=== PATIENT | female | born 1960 | race Caucasian/White ===

== ENCOUNTER 2016-04-27 14:28 | Inpatient (IN) | payer MEDICARE, MEDICAID ==
[~2016-04-27] VITALS: Ht 170.2 cm; Wt 113.4 kg
[2016-04-27] MEDS ORDERED: Aspirin Baby 81mg ORAL ONE (14:45)
[2016-04-27 15:54] LABS: MEAN CORPUSCULAR HEMOGLOBIN 33.2 PG (27.0-31.0); MEAN CORPUSCULAR HGB CONC 33.3 G/DL (32.0-36.0); MEAN CORPUSCULAR VOLUME 100 FL (80-99); MEAN PLATELET VOLUME 7.7 FL (6.5-10.1); PLATELET COUNT 68 K/UL (150-450); RED BLOOD COUNT 2.72 M/UL (4.20-5.40)
[2016-04-27 16:05] LABS: INR 1.1 (0.9-1.1); PROTHROMBIN TIME 11.2 SEC (9.30-11.50)
--- NOTE | 2016-04-27 16:10 | Diagnostic Imaging Report ---
Indication: Cough Technique: One view of the chest Comparison: none Findings: Lungs and pleural spaces are clear. Heart size is normal . Patient is rotated to the right. No significant change Impression: No acute process
[2016-04-27 16:11] LABS: CALCIUM 8.7 mg/dL (8.6-10.2); CREATININE 7.5 mg/dL (0.5-0.9); GLOMERULAR FILTRATION RATE 5.6 mL/min (>60); POTASSIUM 5.1 mEQ/L (3.4-4.9); TOTAL PROTEIN 6.2 g/dL (6.6-8.7); TROPONIN I < 0.30 ng/mL (<=0.30)
[2016-04-27 16:22] LABS: CKMB 6.6 ng/mL (< 3.8)
[2016-04-27 17:01] VITALS: BP 153/84
[2016-04-27 17:29] LABS: BAND NEUTROPHILS % (MANUAL) 1 % (0-8); EOSINOPHILS % (MANUAL) 5 % (0-3); LYMPHOCYTES % (MANUAL) 30 % (20-45); NEUTROPHILS % (MANUAL) 60 % (45-75); TOTAL CELLS COUNTED 100
[2016-04-27 17:30] LABS: ANISOCYTOSIS 1+; BASOPHILS % (MANUAL) 0 % (0-2); HYPOCHROMASIA 1+; PLATELET ESTIMATE DECREASED; PLATELET MORPHOLOGY NORMAL
[2016-04-27 20:22] VITALS: BP 159/72
[2016-04-27] MEDS ORDERED: DOCUSATE SODIU100 MG ORAL (20:34)
[2016-04-27] MEDS ORDERED: ASPIR 8181 MG ORAL (20:34)
[2016-04-27] MEDS ORDERED: AMIODARONE HCL400 M1 ORAL (20:34)
[2016-04-27] MEDS ORDERED: LEVOTHYROXINE100 MCG ORAL (20:34)
[2016-04-27] MEDS ORDERED: LOSARTAN POTASS50 MG ORAL (20:34)
[2016-04-27] MEDS ORDERED: [UNRECOGNIZED DRUG - OTHER] SQ (20:34)
[2016-04-27] MEDS ORDERED: FRAGMIN SQ (20:34)
[2016-04-27] MEDS ORDERED: VITAMIN D250000 UNI1 ORAL (20:34)
[2016-04-27] MEDS ORDERED: JANUVIA25 MG ORAL (21:06)
[2016-04-27] MEDS ORDERED: LEXAPRO10 MG ORAL (21:06)
[2016-04-27] MEDS ORDERED: KLONOPIN0.5 MG ORAL (21:06)
[2016-04-27] MEDS ORDERED: BENICAR5 MG ORAL (21:06)
[2016-04-27 23:20] VITALS: BP 100/84
--- NOTE | 2016-04-27 23:42 | Emergency Room Report ---
History of Present Illness General Chief Complaint: Nausea Source: Patient, EMS Present Illness HPI This patient states that today when she was at a restaurant she developed lightheadedness. She states she was unable to stand up. She states that each time she tried to stand up she would fall backwards. She does have a history of end-stage renal disease. She states that she is due for dialysis tomorrow. She states that she was discharged from another hospital recently but has home health care. He states she only gets dialysis on Sunday and Fridays. She denies recent illness. She denies fever or chills. She denies cough or congestion. She denies chest pain or shortness of breath. She has no other complaints. Allergies: Coded Allergies: No Known Allergies (Verified , 08/23/06) Patient History Past Medical History: see triage record, DM, HTN, renal disease, dialysis Social History: Denies: alcohol use, drug use, smoking Reviewed Nursing Documentation: PMH: Agreed, PSxH: Agreed Nursing Documentation-PMH Past Medical History: No History, Except For Hx Hypertension: Yes Hx Diabetes: Yes History Of Psychiatric Problem: Yes Review of Systems All Other Systems: negative except mentioned in HPI Physical Exam Vital Signs Date Time Temp Pulse Resp B/P Pulse Ox O2 Delivery O2 Flow Rate FiO2 04/27/16 14:25 97.9 65 16 127/69 99 Room Air Sp02 EP Interpretation: reviewed, normal General Appearance: no apparent distress, alert, GCS 15, non-toxic Head: normocephalic, atraumatic Eyes: bilateral eye PERRL, bilateral eye normal inspection ENT: hearing grossly normal, normal pharynx, no angioedema, normal voice Neck: full range of motion, supple/symm/no masses Respiratory: chest non-tender, lungs clear, normal breath sounds, speaking full sentences Cardiovascular #1: regular rate, rhythm, no edema Gastrointestinal: normal bowel sounds, non tender, soft, non-distended, no guarding, no rebound Rectal: deferred Musculoskeletal: back normal, normal range of motion, non-tender Neurologic: alert, oriented x3, responsive, motor strength/tone normal, sensory intact, speech normal Psychiatric: judgement/insight normal, memory normal, mood/affect normal, no suicidal/homicidal ideation Skin: normal color, no rash, warm/dry, well hydrated Medical Decision Making Diagnostic Impression: Primary Impression: Anemia Additional Impressions: Azotemia Hyperkalemia Vertigo Lightheadedness ER Course This patient presents with azotemia, mild hyperkalemia and lightheadedness with inability to ambulate. She also has anemia that may be related to her kidney disease that is worse than her baseline. The patient will be admitted for dialysis and further evaluation and treatment. Likely this is related to needing dialysis. The patient is only on a 2 times per week regimen and likely needs to be on 3 times per week regimen. Regardless, at this time the patient is unable to ambulate and is unsafe to go home. She is admitted for further evaluation and treatment. Labs Test 04/27/16 15:45 04/27/16 23:07 White Blood Count 5.0 K/UL (4.8-10.8) Red Blood Count 2.72 M/UL (4.20-5.40) Hemoglobin 9.0 G/DL (12.0-16.0) Hematocrit 27.1 % (37.0-47.0) Mean Corpuscular Volume 100 FL (80-99) Mean Corpuscular Hemoglobin 33.2 PG (27.0-31.0) Mean Corpuscular Hemoglobin Concent 33.3 G/DL (32.0-36.0) Red Cell Distribution Width 14.0 % (11.6-14.8) Platelet Count 68 K/UL (150-450) Mean Platelet Volume 7.7 FL (6.5-10.1) Neutrophils (%) (Auto) % (45.0-75.0) Lymphocytes (%) (Auto) % (20.0-45.0) Monocytes (%) (Auto) % (1.0-10.0) Eosinophils (%) (Auto) % (0.0-3.0) Basophils (%) (Auto) % (0.0-2.0) Differential Total Cells Counted 100 Neutrophils % (Manual) 60 % (45-75) Lymphocytes % (Manual) 30 % (20-45) Monocytes % (Manual) 4 % (1-10) Eosinophils % (Manual) 5 % (0-3) Basophils % (Manual) 0 % (0-2) Band Neutrophils 1 % (0-8) Platelet Estimate Decreased Platelet Morphology Normal Hypochromasia 1+ Anisocytosis 1+ Prothrombin Time 11.2 SEC (9.30-11.50) Prothromb Time International Ratio 1.1 (0.9-1.1) Activated Partial Thromboplast Time 23 SEC (23-33) Sodium Level 133 mEQ/L (135-145) Potassium Level 5.1 mEQ/L (3.4-4.9) Chloride Level 96 mEQ/L (98-107) Carbon Dioxide Level 14 mEQ/L (20-30) Anion Gap 23 (5-15) Blood Urea Nitrogen 51 mg/dL (7-23) Creatinine 7.5 mg/dL (0.5-0.9) Estimat Glomerular Filtration Rate 5.6 mL/min (>60) Glucose Level 130 mg/dL (74-106) Calcium Level 8.7 mg/dL (8.6-10.2) Total Bilirubin 0.3 mg/dL (0.0-1.2) Aspartate Amino Transf (AST/SGOT) 12 U/L (5-40) Alanine Aminotransferase (ALT/SGPT) 9 U/L (3-33) Alkaline Phosphatase 67 U/L (35-104) Total Creatine Kinase 127 U/L (26-140) Creatine Kinase MB 6.6 ng/mL (< 3.8) Creatine Kinase MB Relative Index 5.1 Troponin I < 0.30 ng/mL (<=0.30) Total Protein 6.2 g/dL (6.6-8.7) Albumin 3.2 g/dL (3.5-5.2) Globulin 3.0 g/dL Albumin/Globulin Ratio 1.0 (1.0-2.7) EKG Diagnostic Results Rate: normal Rhythm: NSR ST Segments: no acute changes Rhythm Strip Diag. Results EP Interpretation: yes Rate: 60's Rhythm: NSR, no PVC's, no ectopy Last Vital Signs Date Time Temp Pulse Resp B/P Pulse Ox O2 Delivery O2 Flow Rate FiO2 04/27/16 23:20 97.8 63 16 100/84 100 Room Air Disposition: ADMITTED INPATIENT Condition: Stable Referrals: NOT CHOSEN IPA/,REFERRING (PCP) ALETA WILSON D.O. Apr 27, 2016 23:42
[2016-04-28] VITALS (7 sets, daily range): BP systolic 142–183; BP diastolic 64–87
[2016-04-28] MEDS ORDERED: clonazePAM 0.5mg tab ORAL PRN (08:45)
[2016-04-28] MEDS ORDERED: Heparin 5000 units/ml inj SUBQ SCH (09:00)
[2016-04-28] MEDS: NovoLOG Insulin Flexpen SUBQ SCH ×3 (11:30→21:28)
--- NOTE | 2016-04-28 12:10 | Consultation ---
Consult Note Assessment/Plan Renal consult dictated # [id number] ANIYAH COMER Apr 28, 2016 12:10
[2016-04-28] MEDS: Nephrovite tab ORAL SCH (13:04)
--- NOTE | 2016-04-28 17:34 | History & Physical ---
History and Physical History & Physicial Sea Lundberg MD Apr 28, 2016 17:34
--- NOTE | 2016-04-28 19:09 | Consultation ---
DATE OF CONSULTATION: NEPHROLOGY CONSULTATION REFERRING PHYSICIAN: Sea Lundberg M.D. REASON FOR CONSULTATION: End-stage renal disease, requiring hemodialysis. HISTORY OF PRESENT ILLNESS: This is a 55-year-old female with history of end-stage renal disease, on hemodialysis every Sunday and Sunday. She usually gets her dialysis at [facility]. She was admitted today for lightheadedness. She has no shortness of breath. No chest pain. PAST MEDICAL HISTORY: History of diabetes mellitus, end-stage renal disease as mentioned. She has been on dialysis for a few years now and history of hypertension. MEDICATIONS: Reviewed in the EMR. ALLERGIES: No known drug allergies. SOCIAL HISTORY: The patient does have a history of smoking and no history of alcohol abuse. REVIEW OF SYSTEMS: Noncontributory except above. PHYSICAL EXAMINATION: GENERAL: The patient is a 55-year-old female, in no acute distress. VITAL SIGNS: Blood pressure 158/83, pulse 64, temperature 97.2 degrees, and respiratory rate is 18. HEENT: Somewhat pale conjunctivae. Anicteric sclerae. NECK: Supple. LUNGS: Clear to auscultation. HEART: S1 and S2 without murmurs or rubs. ABDOMEN: Soft and nontender. EXTREMITIES: Without peripheral edema. In the left upper arm, there is a fistula which is wrapped tightly with tape. At this point, I could not hear any bruit. LABORATORY AND DIAGNOSTIC DATA: The chemistry panel shows a serum sodium 133, potassium 5.1, chloride 96, CO2 14, BUN is 51, creatinine 0.5, blood sugar is 130. CBC shows a WBC of 5000, hematocrit is 27.1, hemoglobin is 9 . ASSESSMENT: This is a 55-year-old female, who was admitted with the dizziness. She has history of end-stage renal disease, on hemodialysis. Today is here regular dialysis day. She has hypertension and diabetes. PLAN: The patient will be dialyzed today. As mentioned, I could not hear any bruits, however, it may be a faint. I have asked the dialysis nurse to open the tapes over her graft to see if we can cannulate it. The patient will be on Nephro-Denise one a day and she will also need to be on Epogen for anemia. Iron panel will be checked. Thank you very much, Dr. Lundberg, for this consultation. Aris Perez M.D. DR: MILENA JOB#: [id number] CC: VIKAS
--- NOTE | 2016-04-28 20:48 | History and Physical Report ---
DATE OF ADMISSION: 04/27/2016 CHIEF COMPLAINT: Nausea and weakness. HISTORY OF PRESENT ILLNESS: This is a 55-year-old, morbidly obese female with past medical history significant for end-stage renal disease, on hemodialysis, diabetes type 2 and hypertension, who was presented to the hospital complained about lightheadedness and nausea. She stated that she was not able to stand up and she stated that she tried to stand up but would fall backward. She denies any chest pain. Denies any shortness of breath. She had a dialysis the day prior to admission and she was discharged from another hospital recently and was followed by the [facility]. She is only getting dialysis on Sunday and Sunday. She denies any fever or chills. Denies any cough and chest congestion. Denies any chest pain or shortness of breath. Shortly after initial evaluation in the emergency, the patient was admitted to the hospital with anemia, azotemia, hyperkalemia and fluid overload. PAST MEDICAL HISTORY/PAST SURGICAL HISTORY: As above. History of diabetes type 2, hypertension, end-stage renal disease, on hemodialysis, and history of AV shunt placement in the left upper extremity. MEDICATIONS: Medications at home is significant for clonazepam, Lexapro, Benicar and Januvia. ALLERGIES: No known drug allergies. SOCIAL HISTORY: Denies any smoking, alcohol, or drugs. FAMILY HISTORY: Noncontributory. REVIEW OF SYSTEMS: Mostly as above. Denies any dysuria, frequency, or hematuria. Denies any hemoptysis or hematochezia. Complained about dizziness. Denies any chest pain or shortness of breath. Denies any double vision. Denies any fall, or head and neck trauma. PHYSICAL EXAMINATION: VITAL SIGNS: On admission, temperature 97.9 degrees, pulse of 65, respirations 16, and blood pressure 127/69. GENERAL: The patient is awake, responsive, in no acute distress. HEENT: Head and neck examination, pupils are equal and reactive to light. Extraocular movements are intact. NECK: Supple. No JVD. LUNGS: Good air entry. No wheezes or rales. HEART: S1 and S2. Distant heart sounds. No murmur or gallop. ABDOMEN: Soft and nontender. Morbidly obese. EXTREMITIES: A +2 edema bilateral lower extremities. AV fistula was noted in the left upper extremity. NEUROLOGIC: Cranial nerves II through XII are grossly intact. Motor is 5/5 in all the extremities. Gait is unsteady. GENITOURINARY: Refused and Deferred. RECTAL: Refused and deferred. PSYCHIATRIC: Mood and affect is intact. LABORATORY AND DIAGNOSTIC DATA: On admission from the ER, sodium 133, potassium 5.1, chloride 96, bicarbonate 14, BUN 51, creatinine 7.5, and glucose is 130. Troponin is less than 0.30. Albumin is 3.2. PT of 11, INR 1.1, and PTT of 23. WBC 5.0, hemoglobin 9.0, hematocrit 27, and platelets 68,000. Urine drug screen is unremarkable. The patient's chest x-ray is unremarkable. EKG normal sinus rhythm, ventricular rate of 63. No ST elevation was noted. No T-wave inversion. ASSESSMENT: 1. Severe weakness. 2. End-stage renal disease, on hemodialysis. 3. Fluid overload. 4. Anemia of chronic kidney disease. 5. Hypertension. 6. Diabetes type 2. 7. Morbid obesity. 8. Hyperkalemia. 9. Thrombocytopenia. PLAN: Admit the patient to telemetry. We will follow up with the dialysis today. Dr. Aris Perez consultation from Nephrology. We will follow up with 2D echo and laboratory in the morning. Resume home medications. Accu-Chek with sliding scale. Code status is Full Code. DVT prophylaxis with ICDs. Sea Lundberg M.D. DR: LISANDRO JOB#: [id number] CC:
[2016-04-28] MEDS ORDERED: Epogen (for ESRD on dialysis) SUBQ SCH (21:00)
[2016-04-29] VITALS (7 sets, daily range): BP systolic 140–184; BP diastolic 66–88
[2016-04-29] MEDS: NovoLOG Insulin Flexpen SUBQ SCH ×4 (06:30→21:00)
[2016-04-29] MEDS: sitaGLIPtin 50mg tab ORAL SCH (06:59)
[2016-04-29] MEDS: Nephrovite tab ORAL SCH (09:28)
[2016-04-29 09:56] LABS: MEAN CORPUSCULAR HEMOGLOBIN 33.9 PG (27.0-31.0); MEAN CORPUSCULAR HGB CONC 33.2 G/DL (32.0-36.0); MEAN CORPUSCULAR VOLUME 102 FL (80-99); MEAN PLATELET VOLUME 7.7 FL (6.5-10.1); PLATELET COUNT 69 K/UL (150-450); RED BLOOD COUNT 2.83 M/UL (4.20-5.40); RED CELL DISTRIBUTION WIDTH 14.2 % (11.6-14.8); WHITE BLOOD COUNT 4.9 K/UL (4.8-10.8)
[2016-04-29 10:21] LABS: ALBUMIN/GLOBULIN RATIO 1.2 (1.0-2.7); CREATININE 7.2 mg/dL (0.5-0.9); GLOMERULAR FILTRATION RATE 5.9 mL/min (>60); PHOSPHORUS 6.1 mg/dL (2.5-4.8); POTASSIUM 4.8 mEQ/L (3.4-4.9); TOTAL PROTEIN 5.6 g/dL (6.6-8.7)
[2016-04-29 10:22] LABS: HEMOLYSIS 3; IRON 82 ug/dL (37-145); TOTAL IRON BINDING CAPACITY 203 ug/dL (250-400)
[2016-04-29 10:43] LABS: TROPONIN I < 0.30 ng/mL (<=0.30)
[2016-04-29 11:12] LABS: ANISOCYTOSIS 1+; BAND NEUTROPHILS % (MANUAL) 0 % (0-8); BASOPHILS % (MANUAL) 0 % (0-2); EOSINOPHILS % (MANUAL) 2 % (0-3); HYPOCHROMASIA 1+; LYMPHOCYTES % (MANUAL) 18 % (20-45); MACROCYTES 1+; NEUTROPHILS % (MANUAL) 75 % (45-75); PLATELET ESTIMATE DECREASED; PLATELET MORPHOLOGY NORMAL; TOTAL CELLS COUNTED 100
[2016-04-29] MEDS ORDERED: Heparin Sod 1000 units/ml 10ml IV PRN (12:15)
--- NOTE | 2016-04-29 12:48 | Pulmonology Progress Note ---
Assessment/Plan Problems: (1) Lightheadedness (2) Vertigo (3) Renal failure (ARF), acute on chronic (4) Syncope (5) Bradycardia Assessment/Plan echo cardiology evaluation renal follow up check electrolytes anemia w/u Subjective ROS Limited/Unobtainable: No Interval Events: no new complains Allergies: Coded Allergies: No Known Allergies (Verified , 08/23/06) Objective Last 24 Hour Vital Signs Date Time Temp Pulse Resp B/P Pulse Ox O2 Delivery O2 Flow Rate FiO2 04/29/16 12:39 184/88 04/29/16 12:11 97.0 68 18 184/88 99 Room Air 04/29/16 09:28 181/85 04/29/16 08:00 59 04/29/16 07:46 97.0 61 18 181/85 100 Room Air 04/29/16 04:00 60 04/29/16 04:00 97.7 59 20 140/68 98 Room Air 04/29/16 00:00 60 04/29/16 00:00 98.4 66 20 146/84 100 Room Air 04/28/16 20:00 99.3 62 18 157/64 100 Room Air 04/28/16 20:00 63 04/28/16 16:00 98.1 62 18 183/87 98 Room Air Intake and Output 04/28/16 04/29/16 19:00 07:00 Intake Total 590 ml 240 ml Output Total 1200 ml 1500 ml Balance -610 ml -1260 ml Intake Oral 590 ml 240 ml Output Urine Total 1200 ml 1500 ml Objective General Appearance: WD/WN HEENT: normocephalic, atraumatic Respiratory/Chest: chest wall non-tender, crackles/rales Cardiovascular: normal peripheral pulses, normal rate Abdomen: normal bowel sounds, soft, non tender Genitourinary: normal external genitalia Extremities: no cyanosis, no clubbing Skin: no rash Neurologic/Psychiatric: re recording mixer II-XII grossly normal General Appearance: WD/WN Microbiology Date/Time Source Procedure Growth Status 04/27/16 23:21 Nasal Nares MRSA Culture - Final NO METHICILLIN RESISTANT STAPH AUREUS... Complete Laboratory Tests 04/29/16 08:45: White Blood Count 4.9, Red Blood Count 2.83L, Hemoglobin 9.6L, Hematocrit 29.0L , Mean Corpuscular Volume 102H, Mean Corpuscular Hemoglobin 33.9H, Mean Corpuscular Hemoglobin Concent 33.2, Red Cell Distribution Width 14.2, Platelet Count 69L, Mean Platelet Volume 7.7, Neutrophils (%) (Auto) , Lymphocytes (%) ( Auto) , Monocytes (%) (Auto) , Eosinophils (%) (Auto) , Basophils (%) (Auto) , Differential Total Cells Counted 100, Neutrophils % (Manual) 75, Lymphocytes % ( Manual) 18L, Monocytes % (Manual) 5, Eosinophils % (Manual) 2, Basophils % ( Manual) 0, Band Neutrophils 0, Platelet Estimate DecreasedL, Platelet Morphology Normal, Hypochromasia 1+, Anisocytosis 1+, Macrocytosis 1+, Sodium Level 141, Potassium Level 4.8, Chloride Level 106, Carbon Dioxide Level 17L, Anion Gap 18H, Blood Urea Nitrogen 49H, Creatinine 7.2H, Estimat Glomerular Filtration Rate 5.9, Glucose Level 130H, Calcium Level 9.0, Phosphorus Level 6.1H, Magnesium Level 2.0, Iron Level 82, Total Iron Binding Capacity 203L, Percent Iron Saturation 40, Unsaturated Iron Binding 121, Total Bilirubin 0.3, Aspartate Amino Transf (AST/SGOT) 9, Alanine Aminotransferase (ALT/SGPT) 7, Alkaline Phosphatase 70, Troponin I < 0.30, Total Protein 5.6L, Albumin 3.1L, Globulin 2.5, Albumin/Globulin Ratio 1.2 Current Medications Medications (Trade) Dose Ordered Sig/Gabriele Route PRN Reason Start Time Stop Time Status Last Admin Dose Admin Clonazepam (KlonoPIN) 0.5 mg Q6H PRN ORAL For Anxiety 04/28/16 08:45 05/05/16 08:44 Clonidine HCl 0.1 mg 0.1 mg Q4H PRN ORAL SBP>160 04/28/16 08:45 05/28/16 08:44 04/29/16 12:39 Dextrose (Dextrose 50%) STAT PRN IV Hypoglycemia 04/28/16 08:45 05/28/16 08:44 Epoetin Mau (Procrit (for ESRD on dialysis)) 7,000 units MON-WED-FRI SUBQ 04/28/16 21:00 05/28/16 20:59 04/28/16 22:05 Escitalopram Oxalate (Lexapro) 10 mg DAILY ORAL 04/28/16 09:00 4/9/17 08:59 04/29/16 09:28 Heparin Sodium (Porcine) (Heparin Sod 1000 units/ml 10ml) 500 unit ONCE PRN IV FOR HD USE ONLY 04/29/16 12:15 04/29/16 23:59 Insulin Aspart (NovoLOG) BEFORE MEALS AND HS SUBQ 04/28/16 11:30 05/28/16 11:29 04/29/16 11:51 Irbesartan (Avapro) 75 mg DAILY ORAL 04/28/16 09:00 05/28/16 08:59 04/29/16 09:28 Sitagliptin Phosphate (Januvia) 25 mg ACBREAKFAST ORAL 04/29/16 06:30 05/29/16 06:29 04/29/16 06:59 Sodium Chloride (Sodium Chloride 1000ml bag) 1,000 ml @ 500 mls/hr Q2H PRN IVLG sbp<90 during hd 04/29/16 12:03 04/29/16 23:59 Vitamin B Complex/ Vit C/Folic Acid (Nephrovite) 1 tab DAILY ORAL 04/28/16 13:00 05/28/16 12:59 04/29/16 09:28 LEO MCGEE Apr 29, 2016 12:48
--- NOTE | 2016-04-29 13:15 | Cardiology Progress Note ---
Assessment/Plan Assessment/Plan fall non sycopal [facility] hs of same thomboytoeia htn esrd noncomplinaceiwth dialsysis [id number] Objective Last 24 Hour Vital Signs Date Time Temp Pulse Resp B/P Pulse Ox O2 Delivery O2 Flow Rate FiO2 04/29/16 12:39 184/88 04/29/16 12:11 97.0 68 18 184/88 99 Room Air 04/29/16 09:28 181/85 04/29/16 08:00 59 04/29/16 07:46 97.0 61 18 181/85 100 Room Air 04/29/16 04:00 60 04/29/16 04:00 97.7 59 20 140/68 98 Room Air 04/29/16 00:00 60 04/29/16 00:00 98.4 66 20 146/84 100 Room Air 04/28/16 20:00 99.3 62 18 157/64 100 Room Air 04/28/16 20:00 63 04/28/16 16:00 98.1 62 18 183/87 98 Room Air Intake and Output 04/28/16 04/29/16 19:00 07:00 Intake Total 590 ml 240 ml Output Total 1200 ml 1500 ml Balance -610 ml -1260 ml Intake Oral 590 ml 240 ml Output Urine Total 1200 ml 1500 ml Laboratory Tests Test 04/29/16 08:45 White Blood Count 4.9 K/UL (4.8-10.8) Red Blood Count 2.83 M/UL (4.20-5.40) L Hemoglobin 9.6 G/DL (12.0-16.0) L Hematocrit 29.0 % (37.0-47.0) L Mean Corpuscular Volume 102 FL (80-99) H Mean Corpuscular Hemoglobin 33.9 PG (27.0-31.0) H Mean Corpuscular Hemoglobin Concent 33.2 G/DL (32.0-36.0) Red Cell Distribution Width 14.2 % (11.6-14.8) Platelet Count 69 K/UL (150-450) L Mean Platelet Volume 7.7 FL (6.5-10.1) Neutrophils (%) (Auto) % (45.0-75.0) Lymphocytes (%) (Auto) % (20.0-45.0) Monocytes (%) (Auto) % (1.0-10.0) Eosinophils (%) (Auto) % (0.0-3.0) Basophils (%) (Auto) % (0.0-2.0) Differential Total Cells Counted 100 Neutrophils % (Manual) 75 % (45-75) Lymphocytes % (Manual) 18 % (20-45) L Monocytes % (Manual) 5 % (1-10) Eosinophils % (Manual) 2 % (0-3) Basophils % (Manual) 0 % (0-2) Band Neutrophils 0 % (0-8) Platelet Estimate Decreased L Platelet Morphology Normal Hypochromasia 1+ Anisocytosis 1+ Macrocytosis 1+ Sodium Level 141 mEQ/L (135-145) Potassium Level 4.8 mEQ/L (3.4-4.9) Chloride Level 106 mEQ/L (98-107) Carbon Dioxide Level 17 mEQ/L (20-30) L Anion Gap 18 (5-15) H Blood Urea Nitrogen 49 mg/dL (7-23) H Creatinine 7.2 mg/dL (0.5-0.9) H Estimat Glomerular Filtration Rate 5.9 mL/min (>60) Glucose Level 130 mg/dL (74-106) H Calcium Level 9.0 mg/dL (8.6-10.2) Phosphorus Level 6.1 mg/dL (2.5-4.8) H Magnesium Level 2.0 mg/dL (1.7-2.5) Iron Level 82 ug/dL (37-145) Total Iron Binding Capacity 203 ug/dL (250-400) L Percent Iron Saturation 40 % (15-50) Unsaturated Iron Binding 121 ug/dL (112-346) Total Bilirubin 0.3 mg/dL (0.0-1.2) Aspartate Amino Transf (AST/SGOT) 9 U/L (5-40) Alanine Aminotransferase (ALT/SGPT) 7 U/L (3-33) Alkaline Phosphatase 70 U/L (35-104) Troponin I < 0.30 ng/mL (<=0.30) Total Protein 5.6 g/dL (6.6-8.7) L Albumin 3.1 g/dL (3.5-5.2) L Globulin 2.5 g/dL Albumin/Globulin Ratio 1.2 (1.0-2.7) Microbiology Date/Time Source Procedure Growth Status 3/9/17 23:21 Nasal Nares MRSA Culture - Final NO METHICILLIN RESISTANT STAPH AUREUS... Complete HEIDI PICKETT Apr 29, 2016 13:15
[2016-04-29] MEDS: Carvedilol 12.5mg tab ORAL SCH ×2 (14:03→21:37)
--- NOTE | 2016-04-29 15:38 | Nephrology Progress Note ---
Assessment/Plan Problem List: (1) Clotted renal dialysis arteriovenous graft (2) ESRD (end stage renal disease) on dialysis (3) Anemia (4) Lightheadedness Plan declotting by radiology on Sunday discussed with RN memo [place] Subjective Subjective fistula is clotted Objective Objective Last 24 Hour Vital Signs Date Time Temp Pulse Resp B/P Pulse Ox O2 Delivery O2 Flow Rate FiO2 04/29/16 15:10 61 145/66 04/29/16 14:03 68 184/88 04/29/16 12:39 184/88 04/29/16 12:11 97.0 68 18 184/88 99 Room Air 04/29/16 12:00 64 04/29/16 09:28 181/85 04/29/16 08:00 59 04/29/16 07:46 97.0 61 18 181/85 100 Room Air 04/29/16 04:00 60 04/29/16 04:00 97.7 59 20 140/68 98 Room Air 04/29/16 00:00 60 04/29/16 00:00 98.4 66 20 146/84 100 Room Air 04/28/16 20:00 99.3 62 18 157/64 100 Room Air 04/28/16 20:00 63 04/28/16 16:00 98.1 62 18 183/87 98 Room Air Intake and Output 04/28/16 04/29/16 19:00 07:00 Intake Total 590 ml 240 ml Output Total 1200 ml 1500 ml Balance -610 ml -1260 ml Intake Oral 590 ml 240 ml Output Urine Total 1200 ml 1500 ml Laboratory Tests 04/29/16 08:45: White Blood Count 4.9, Red Blood Count 2.83L, Hemoglobin 9.6L, Hematocrit 29.0L , Mean Corpuscular Volume 102H, Mean Corpuscular Hemoglobin 33.9H, Mean Corpuscular Hemoglobin Concent 33.2, Red Cell Distribution Width 14.2, Platelet Count 69L, Mean Platelet Volume 7.7, Neutrophils (%) (Auto) , Lymphocytes (%) ( Auto) , Monocytes (%) (Auto) , Eosinophils (%) (Auto) , Basophils (%) (Auto) , Differential Total Cells Counted 100, Neutrophils % (Manual) 75, Lymphocytes % ( Manual) 18L, Monocytes % (Manual) 5, Eosinophils % (Manual) 2, Basophils % ( Manual) 0, Band Neutrophils 0, Platelet Estimate DecreasedL, Platelet Morphology Normal, Hypochromasia 1+, Anisocytosis 1+, Macrocytosis 1+, Sodium Level 141, Potassium Level 4.8, Chloride Level 106, Carbon Dioxide Level 17L, Anion Gap 18H, Blood Urea Nitrogen 49H, Creatinine 7.2H, Estimat Glomerular Filtration Rate 5.9, Glucose Level 130H, Calcium Level 9.0, Phosphorus Level 6.1H, Magnesium Level 2.0, Iron Level 82, Total Iron Binding Capacity 203L, Percent Iron Saturation 40, Unsaturated Iron Binding 121, Total Bilirubin 0.3, Aspartate Amino Transf (AST/SGOT) 9, Alanine Aminotransferase (ALT/SGPT) 7, Alkaline Phosphatase 70, Troponin I < 0.30, Total Protein 5.6L, Albumin 3.1L, Globulin 2.5, Albumin/Globulin Ratio 1.2 Height (Feet): 5 Height (Inches): 7.00 Weight (Pounds): 250 Cardiovascular: normal rate Respiratory/Chest: lungs clear Extremities: moderate edema ANIYAH COMER Apr 29, 2016 15:38
--- NOTE | 2016-04-29 17:19 | Internal Med Progress Note ---
Subjective Physician Name Sea Lundberg Attending Physician Sea Lundberg MD Current Medications Medications (Trade) Dose Ordered Sig/Gabriele Route PRN Reason Start Time Stop Time Status Last Admin Dose Admin Carvedilol (Coreg) 12.5 mg EVERY 12 HOURS ORAL 04/29/16 14:00 05/29/16 13:59 04/29/16 14:03 Clonazepam (KlonoPIN) 0.5 mg Q6H PRN ORAL For Anxiety 04/28/16 08:45 05/05/16 08:44 Clonidine HCl 0.1 mg 0.1 mg Q4H PRN ORAL SBP>160 04/28/16 08:45 05/28/16 08:44 04/29/16 12:39 Dextrose (Dextrose 50%) STAT PRN IV Hypoglycemia 04/28/16 08:45 05/28/16 08:44 Epoetin Mau (Procrit (for ESRD on dialysis)) 7,000 units SUN-WED-SUN SUBQ 04/28/16 21:00 05/28/16 20:59 04/28/16 22:05 Escitalopram Oxalate (Lexapro) 10 mg DAILY ORAL 04/28/16 09:00 05/28/16 08:59 04/29/16 09:28 Heparin Sodium (Porcine) (Heparin Sod 1000 units/ml 10ml) 500 unit ONCE PRN IV FOR HD USE ONLY 04/29/16 12:15 04/29/16 23:59 Insulin Aspart (NovoLOG) BEFORE MEALS AND HS SUBQ 04/28/16 11:30 05/28/16 11:29 04/29/16 11:51 Irbesartan (Avapro) 75 mg DAILY ORAL 04/28/16 09:00 05/28/16 08:59 04/29/16 09:28 Sitagliptin Phosphate (Januvia) 25 mg ACBREAKFAST ORAL 04/29/16 06:30 05/29/16 06:29 04/29/16 06:59 Sodium Chloride (Sodium Chloride 1000ml bag) 1,000 ml @ 500 mls/hr Q2H PRN IVLG sbp<90 during hd 04/29/16 12:03 04/29/16 23:59 Vitamin B Complex/ Vit C/Folic Acid (Nephrovite) 1 tab DAILY ORAL 04/28/16 13:00 05/28/16 12:59 04/29/16 09:28 Allergies: Coded Allergies: No Known Allergies (Verified , 08/23/06) Subjective awake, alert, responsive, NAD, No SOB, No CP Objective Last Vital Signs Date Time Temp Pulse Resp B/P Pulse Ox O2 Delivery O2 Flow Rate FiO2 04/29/16 16:00 97.5 60 22 161/72 99 Room Air Laboratory Tests Test 04/29/16 08:45 White Blood Count 4.9 K/UL (4.8-10.8) Red Blood Count 2.83 M/UL (4.20-5.40) L Hemoglobin 9.6 G/DL (12.0-16.0) L Hematocrit 29.0 % (37.0-47.0) L Mean Corpuscular Volume 102 FL (80-99) H Mean Corpuscular Hemoglobin 33.9 PG (27.0-31.0) H Mean Corpuscular Hemoglobin Concent 33.2 G/DL (32.0-36.0) Red Cell Distribution Width 14.2 % (11.6-14.8) Platelet Count 69 K/UL (150-450) L Mean Platelet Volume 7.7 FL (6.5-10.1) Neutrophils (%) (Auto) % (45.0-75.0) Lymphocytes (%) (Auto) % (20.0-45.0) Monocytes (%) (Auto) % (1.0-10.0) Eosinophils (%) (Auto) % (0.0-3.0) Basophils (%) (Auto) % (0.0-2.0) Differential Total Cells Counted 100 Neutrophils % (Manual) 75 % (45-75) Lymphocytes % (Manual) 18 % (20-45) L Monocytes % (Manual) 5 % (1-10) Eosinophils % (Manual) 2 % (0-3) Basophils % (Manual) 0 % (0-2) Band Neutrophils 0 % (0-8) Platelet Estimate Decreased L Platelet Morphology Normal Hypochromasia 1+ Anisocytosis 1+ Macrocytosis 1+ Sodium Level 141 mEQ/L (135-145) Potassium Level 4.8 mEQ/L (3.4-4.9) Chloride Level 106 mEQ/L (98-107) Carbon Dioxide Level 17 mEQ/L (20-30) L Anion Gap 18 (5-15) H Blood Urea Nitrogen 49 mg/dL (7-23) H Creatinine 7.2 mg/dL (0.5-0.9) H Estimat Glomerular Filtration Rate 5.9 mL/min (>60) Glucose Level 130 mg/dL (74-106) H Calcium Level 9.0 mg/dL (8.6-10.2) Phosphorus Level 6.1 mg/dL (2.5-4.8) H Magnesium Level 2.0 mg/dL (1.7-2.5) Iron Level 82 ug/dL (37-145) Total Iron Binding Capacity 203 ug/dL (250-400) L Percent Iron Saturation 40 % (15-50) Unsaturated Iron Binding 121 ug/dL (112-346) Total Bilirubin 0.3 mg/dL (0.0-1.2) Aspartate Amino Transf (AST/SGOT) 9 U/L (5-40) Alanine Aminotransferase (ALT/SGPT) 7 U/L (3-33) Alkaline Phosphatase 70 U/L (35-104) Troponin I < 0.30 ng/mL (<=0.30) Total Protein 5.6 g/dL (6.6-8.7) L Albumin 3.1 g/dL (3.5-5.2) L Globulin 2.5 g/dL Albumin/Globulin Ratio 1.2 (1.0-2.7) Microbiology Date/Time Source Procedure Growth Status 04/27/16 23:21 Nasal Nares MRSA Culture - Final NO METHICILLIN RESISTANT STAPH AUREUS... Complete Intake and Output 04/28/16 04/29/16 19:00 07:00 Intake Total 590 ml 240 ml Output Total 1200 ml 1500 ml Balance -610 ml -1260 ml Intake Oral 590 ml 240 ml Output Urine Total 1200 ml 1500 ml Objective GENERAL: The patient is awake, responsive, in no acute distress. HEENT: Head and neck examination, pupils are equal and reactive to light. Extraocular movements are intact. NECK: Supple. No JVD. LUNGS: Good air entry. No wheezes or rales. HEART: S1 and S2. Distant heart sounds. No murmur. ABDOMEN: Soft and nontender. Morbidly obese. EXTREMITIES: A +2 edema bilateral lower extremities. AV fistula in left upper extremity no thrill. NEUROLOGIC: Cranial nerves II through XII are grossly intact. Motor is 5/5 in all the extremities. Gait is unsteady. GENITOURINARY: Refused and Deferred. RECTAL: Refused and deferred. PSYCHIATRIC: Mood and affect is intact. Assessment/Plan Assessment/Plan ASSESSMENT: 1. Severe weakness. 2. End-stage renal disease, on hemodialysis. 3. Fluid overload. 4. Anemia of chronic kidney disease. 5. Hypertension. 6. Diabetes type 2. 7. Morbid obesity. 8. Hyperkalemia. 9. Thrombocytopenia. 10. clotted Left UE AVF. PLAN: in telemetry. Dr. Aris Perez consultation from Nephrology. laboratory in the morning. Accu-Chek with sliding scale. Code status is Full Code. DVT prophylaxis with SCDs for AVF declotication on Sunday by Sea Roque MD Apr 29, 2016 17:19
[2016-04-30 00:37] VITALS: BP 144/73
[2016-04-30 04:29] VITALS: BP 151/78
[2016-04-30] MEDS: sitaGLIPtin 50mg tab ORAL SCH (05:39)
[2016-04-30] MEDS: NovoLOG Insulin Flexpen SUBQ SCH ×4 (05:40→21:51)
[2016-04-30 07:51] LABS: CALCIUM 8.8 mg/dL (8.6-10.2); CREATININE 6.8 mg/dL (0.5-0.9); GLOMERULAR FILTRATION RATE 6.3 mL/min (>60); POTASSIUM 4.9 mEQ/L (3.4-4.9)
[2016-04-30 08:06] VITALS: BP 162/81
[2016-04-30] MEDS: Nephrovite tab ORAL SCH (09:29)
[2016-04-30] MEDS: Carvedilol 12.5mg tab ORAL SCH ×2 (09:29→21:00)
[2016-04-30] MEDS ORDERED: Tubing IV Secondary IV ONE (10:06)
[2016-04-30] MEDS ORDERED: NS 275ml ONE (10:06)
[2016-04-30 11:41] VITALS: BP 160/69
--- NOTE | 2016-04-30 13:39 | Cardiology Progress Note ---
Assessment/Plan Assessment/Plan fall non syncopal with hs of same thrombocytopenia htn esrd noncompliance with dialysis seem stable for the moment dialysis per nephrology sats 100 % latest bp is fine will need orthostatics documeted per staff walking around and is independent not off balance when walkse tele reviewed neg plt low labs reviewed Subjective Cardiovascular: Denies: irregular heart rate, lightheadedness, palpitations Respiratory: Denies: shortness of breath Gastrointestinal/Abdominal: Denies: abdominal pain Genitourinary: Denies: burning Objective Last 24 Hour Vital Signs Date Time Temp Pulse Resp B/P Pulse Ox O2 Delivery O2 Flow Rate FiO2 04/30/16 11:41 97.9 63 18 160/69 100 Room Air 04/30/16 09:29 62 162/81 04/30/16 09:29 162/81 04/30/16 08:06 97.0 62 18 162/81 100 Room Air 04/30/16 04:29 98.4 69 20 151/78 94 Room Air 04/30/16 04:00 60 04/30/16 00:37 98.1 61 19 144/73 95 Room Air 04/29/16 21:37 63 182/80 04/29/16 20:00 63 04/29/16 20:00 98.1 63 20 182/80 98 Room Air 04/29/16 16:00 97.5 60 22 161/72 99 Room Air 04/29/16 15:10 61 145/66 04/29/16 14:03 68 184/88 General Appearance: no apparent distress, alert Neck: supple Cardiovascular: normal rate, regular rhythm Respiratory/Chest: lungs clear, normal breath sounds Abdomen: normal bowel sounds, non tender, soft Extremities: no swelling Intake and Output 04/29/16 04/30/16 19:00 07:00 Intake Total 240 ml 300 ml Output Total 750 ml Balance -510 ml 300 ml Intake Oral 240 ml 300 ml Output Urine Total 750 ml # Voids 7 Laboratory Tests Test 04/30/16 06:00 Sodium Level 140 mEQ/L (135-145) Potassium Level 4.9 mEQ/L (3.4-4.9) Chloride Level 107 mEQ/L (98-107) Carbon Dioxide Level 17 mEQ/L (20-30) L Anion Gap 16 (5-15) H Blood Urea Nitrogen 53 mg/dL (7-23) H Creatinine 6.8 mg/dL (0.5-0.9) H Estimat Glomerular Filtration Rate 6.3 mL/min (>60) Glucose Level 117 mg/dL (74-106) H Calcium Level 8.8 mg/dL (8.6-10.2) Microbiology Date/Time Source Procedure Growth Status 04/27/16 23:21 Nasal Nares MRSA Culture - Final NO METHICILLIN RESISTANT STAPH AUREUS... Complete 04/27/16 23:21 Rectum VRE Culture - Final NO VANCOMYCIN RESISTANT ENTEROCOCCUS ... Complete HEIDI PICKETT Apr 30, 2016 13:39
[2016-04-30 16:00] VITALS: BP 158/74
--- NOTE | 2016-04-30 16:14 | Nephrology Progress Note ---
Assessment/Plan Problem List: (1) Clotted renal dialysis arteriovenous graft (2) ESRD (end stage renal disease) on dialysis (3) Anemia (4) Lightheadedness Plan declotting by radiology on Sunday discussed with RN HD in AM Subjective Subjective In NAD Objective Objective Last 24 Hour Vital Signs Date Time Temp Pulse Resp B/P Pulse Ox O2 Delivery O2 Flow Rate FiO2 04/30/16 11:41 97.9 63 18 160/69 100 Room Air 04/30/16 09:29 62 162/81 04/30/16 09:29 162/81 04/30/16 08:06 97.0 62 18 162/81 100 Room Air 04/30/16 04:29 98.4 69 20 151/78 94 Room Air 04/30/16 04:00 60 04/30/16 00:37 98.1 61 19 144/73 95 Room Air 04/29/16 21:37 63 182/80 04/29/16 20:00 63 04/29/16 20:00 98.1 63 20 182/80 98 Room Air Intake and Output 04/29/16 04/30/16 19:00 07:00 Intake Total 240 ml 300 ml Output Total 750 ml Balance -510 ml 300 ml Intake Oral 240 ml 300 ml Output Urine Total 750 ml # Voids 7 Laboratory Tests 04/30/16 06:00: Sodium Level 140, Potassium Level 4.9, Chloride Level 107, Carbon Dioxide Level 17L, Anion Gap 16H, Blood Urea Nitrogen 53H, Creatinine 6.8H, Estimat Glomerular Filtration Rate 6.3, Glucose Level 117H, Calcium Level 8.8 Height (Feet): 5 Height (Inches): 7.00 Weight (Pounds): 250 Cardiovascular: normal rate Respiratory/Chest: lungs clear ANIYAH COMER Apr 30, 2016 16:14
[2016-04-30 20:00] VITALS: BP 159/68
--- NOTE | 2016-04-30 20:22 | Internal Med Progress Note ---
Subjective Physician Name Sea Lundberg Attending Physician Sea Lundberg MD Current Medications Medications (Trade) Dose Ordered Sig/Gabriele Route PRN Reason Start Time Stop Time Status Last Admin Dose Admin Carvedilol (Coreg) 12.5 mg EVERY 12 HOURS ORAL 04/29/16 14:00 05/29/16 13:59 04/30/16 09:29 Cetylpyridinium Chloride (Cepacol) 1 lozenge EVERY 6 HOURS PRN NATALIE For Cough 04/29/16 21:15 05/29/16 21:14 04/29/16 21:37 Clonazepam (KlonoPIN) 0.5 mg Q6H PRN ORAL For Anxiety 04/28/16 08:45 05/05/16 08:44 Clonidine HCl (Catapres) 0.1 mg Q4H PRN ORAL SBP>160 04/28/16 08:45 05/28/16 08:44 04/29/16 12:39 Dextrose (Dextrose 50%) STAT PRN IV Hypoglycemia 04/28/16 08:45 05/28/16 08:44 Epoetin Mau (Procrit (for ESRD on dialysis)) 7,000 units SUN-SUN-SUN SUBQ 04/28/16 21:00 05/28/16 20:59 04/28/16 22:05 Escitalopram Oxalate (Lexapro) 10 mg DAILY ORAL 04/28/16 09:00 05/28/16 08:59 04/30/16 09:30 Insulin Aspart (NovoLOG) BEFORE MEALS AND HS SUBQ 04/28/16 11:30 05/28/16 11:29 04/30/16 17:41 Irbesartan (Avapro) 75 mg DAILY ORAL 04/28/16 09:00 05/28/16 08:59 04/30/16 09:29 Sitagliptin Phosphate (Januvia) 25 mg ACBREAKFAST ORAL 04/29/16 06:30 05/29/16 06:29 04/30/16 05:39 Vitamin B Complex/ Vit C/Folic Acid (Nephrovite) 1 tab DAILY ORAL 04/28/16 13:00 05/28/16 12:59 04/30/16 09:29 Allergies: Coded Allergies: No Known Allergies (Verified , 08/23/06) Subjective awake, alert, responsive, NAD, No SOB, No CP Objective Last Vital Signs Date Time Temp Pulse Resp B/P Pulse Ox O2 Delivery O2 Flow Rate FiO2 04/30/16 20:00 61 04/30/16 16:00 98.9 18 158/74 100 Room Air Laboratory Tests Test 04/30/16 06:00 Sodium Level 140 mEQ/L (135-145) Potassium Level 4.9 mEQ/L (3.4-4.9) Chloride Level 107 mEQ/L (98-107) Carbon Dioxide Level 17 mEQ/L (20-30) L Anion Gap 16 (5-15) H Blood Urea Nitrogen 53 mg/dL (7-23) H Creatinine 6.8 mg/dL (0.5-0.9) H Estimat Glomerular Filtration Rate 6.3 mL/min (>60) Glucose Level 117 mg/dL (74-106) H Calcium Level 8.8 mg/dL (8.6-10.2) Microbiology Date/Time Source Procedure Growth Status 04/27/16 23:21 Nasal Nares MRSA Culture - Final NO METHICILLIN RESISTANT STAPH AUREUS... Complete 04/27/16 23:21 Rectum VRE Culture - Final NO VANCOMYCIN RESISTANT ENTEROCOCCUS ... Complete Intake and Output 04/29/16 04/30/16 19:00 07:00 Intake Total 240 ml 300 ml Output Total 750 ml Balance -510 ml 300 ml Intake Oral 240 ml 300 ml Output Urine Total 750 ml # Voids 7 Objective GENERAL: The patient is awake, responsive, in no acute distress. HEENT: Head and neck examination, pupils are equal and reactive to light. Extraocular movements are intact. NECK: Supple. No JVD. LUNGS: Good air entry. No wheezes or rales. HEART: S1 and S2. Distant heart sounds. No murmur. ABDOMEN: Soft and nontender. Morbidly obese. EXTREMITIES: A +2 edema bilateral lower extremities. AV fistula in left upper extremity no thrill. NEUROLOGIC: Cranial nerves II through XII are grossly intact. Motor is 5/5 in all the extremities. Gait is unsteady. GENITOURINARY: Refused and Deferred. RECTAL: Refused and deferred. PSYCHIATRIC: Mood and affect is intact. Assessment/Plan Assessment/Plan ASSESSMENT: 1. Severe weakness. 2. End-stage renal disease, on hemodialysis. 3. Fluid overload. 4. Anemia of chronic kidney disease. 5. Hypertension. 6. Diabetes type 2. 7. Morbid obesity. 8. Hyperkalemia. 9. Thrombocytopenia. 10. clotted Left UE AVF. PLAN: in telemetry. Dr. Aris Perez consultation from Nephrology. laboratory in the morning. Accu-Chek with sliding scale. Code status is Full Code. DVT prophylaxis with SCDs for AVF declotting in AM by IR. Hemodialysis in AM then discharge home in AM. Sea Lundberg MD Apr 30, 2016 20:22
[2016-04-30 21:03] LABS: MEAN CORPUSCULAR HEMOGLOBIN 34.2 PG (27.0-31.0); MEAN CORPUSCULAR HGB CONC 34.2 G/DL (32.0-36.0); MEAN CORPUSCULAR VOLUME 100 FL (80-99); MEAN PLATELET VOLUME 6.5 FL (6.5-10.1); PLATELET COUNT 63 K/UL (150-450); RED BLOOD COUNT 2.58 M/UL (4.20-5.40); RED CELL DISTRIBUTION WIDTH 13.5 % (11.6-14.8); WHITE BLOOD COUNT 5.9 K/UL (4.8-10.8)
[2016-04-30 21:10] LABS: EOSINOPHILS % (AUTO) 3.7 % (0.0-3.0); LYMPHOCYTES % (AUTO) 19.6 % (20.0-45.0); MONOCYTES % (AUTO) 10.2 % (1.0-10.0); NEUTROPHILS % (AUTO) 65.6 % (45.0-75.0)
[2016-04-30 21:23] LABS: CALCIUM 8.5 mg/dL (8.6-10.2); CREATININE 6.9 mg/dL (0.5-0.9); GLOMERULAR FILTRATION RATE 6.2 mL/min (>60); POTASSIUM 5.1 mEQ/L (3.4-4.9)
--- NOTE | 2016-04-30 23:11 | Pulmonology Progress Note ---
Assessment/Plan Problems: (1) Lightheadedness (2) Vertigo (3) Renal failure (ARF), acute on chronic (4) Syncope (5) Bradycardia Assessment/Plan echo cardiology f/u renal follow up, HD check electrolytes declotting pending Subjective ROS Limited/Unobtainable: No Interval Events: no new complains Allergies: Coded Allergies: No Known Allergies (Verified , 08/23/06) Objective Last 24 Hour Vital Signs Date Time Temp Pulse Resp B/P Pulse Ox O2 Delivery O2 Flow Rate FiO2 04/30/16 21:48 55 159/68 04/30/16 21:00 55 159/68 04/30/16 20:00 98.1 55 18 159/68 100 Room Air 04/30/16 20:00 61 04/30/16 16:00 98.9 61 18 158/74 100 Room Air 04/30/16 12:00 63 04/30/16 11:41 97.9 63 18 160/69 100 Room Air 04/30/16 09:29 62 162/81 04/30/16 09:29 162/81 04/30/16 08:06 97.0 62 18 162/81 100 Room Air 04/30/16 08:00 60 04/30/16 04:29 98.4 69 20 151/78 94 Room Air 04/30/16 04:00 60 04/30/16 00:37 98.1 61 19 144/73 95 Room Air Intake and Output 04/29/16 04/30/16 19:00 07:00 Intake Total 240 ml 300 ml Output Total 750 ml Balance -510 ml 300 ml Intake Oral 240 ml 300 ml Output Urine Total 750 ml # Voids 7 Objective General Appearance: WD/WN HEENT: normocephalic, atraumatic Respiratory/Chest: chest wall non-tender, crackles/rales Cardiovascular: normal peripheral pulses, normal rate Abdomen: normal bowel sounds, soft, non tender Genitourinary: normal external genitalia Extremities: no cyanosis, no clubbing Skin: no rash 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 Complete 04/27/16 23:21 Rectum VRE Culture - Final NO VANCOMYCIN RESISTANT ENTEROCOCCUS ... Complete Laboratory Tests 04/30/16 06:00: Sodium Level 140, Potassium Level 4.9, Chloride Level 107, Carbon Dioxide Level 17L, Anion Gap 16H, Blood Urea Nitrogen 53H, Creatinine 6.8H, Estimat Glomerular Filtration Rate 6.3, Glucose Level 117H, Calcium Level 8.8 04/30/16 20:55: Sodium Level 140, Potassium Level 5.1H, Chloride Level 108H, Carbon Dioxide Level 15L, Anion Gap 17H, Blood Urea Nitrogen 53H, Creatinine 6.9H, Estimat Glomerular Filtration Rate 6.2, Glucose Level 126H, Calcium Level 8.5L, White Blood Count 5.9, Red Blood Count 2.58L, Hemoglobin 8.8L, Hematocrit 25.8L, Mean Corpuscular Volume 100H, Mean Corpuscular Hemoglobin 34.2H, Mean Corpuscular Hemoglobin Concent 34.2, Red Cell Distribution Width 13.5, Platelet Count 63L, Mean Platelet Volume 6.5, Neutrophils (%) (Auto) 65.6, Lymphocytes (%) (Auto) 19.6L, Monocytes (%) (Auto) 10.2H, Eosinophils (%) (Auto) 3.7H, Basophils (%) ( Auto) 1.0 Current Medications Medications (Trade) Dose Ordered Sig/Gabriele Route PRN Reason Start Time Stop Time Status Last Admin Dose Admin Carvedilol (Coreg) 12.5 mg EVERY 12 HOURS ORAL 04/29/16 14:00 05/29/16 13:59 04/30/16 09:29 Cetylpyridinium Chloride (Cepacol) 1 lozenge EVERY 6 HOURS PRN NATALIE For Cough 04/29/16 21:15 05/29/16 21:14 04/29/16 21:37 Clonazepam (KlonoPIN) 0.5 mg Q6H PRN ORAL For Anxiety 04/28/16 08:45 05/05/16 08:44 Clonidine HCl (Catapres) 0.1 mg Q4H PRN ORAL SBP>160 04/28/16 08:45 05/28/16 08:44 04/29/16 12:39 Dextrose (Dextrose 50%) STAT PRN IV Hypoglycemia 04/28/16 08:45 05/28/16 08:44 Epoetin Mau (Procrit (for ESRD on dialysis)) 7,000 units SUN-SUN-FRI SUBQ 04/28/16 21:00 05/28/16 20:59 04/28/16 22:05 Escitalopram Oxalate (Lexapro) 10 mg DAILY ORAL 04/28/16 09:00 05/28/16 08:59 04/30/16 09:30 Insulin Aspart (NovoLOG) BEFORE MEALS AND HS SUBQ 04/28/16 11:30 05/28/16 11:29 04/30/16 21:51 Irbesartan (Avapro) 75 mg DAILY ORAL 04/28/16 09:00 05/28/16 08:59 04/30/16 09:29 Sitagliptin Phosphate (Januvia) 25 mg ACBREAKFAST ORAL 04/29/16 06:30 05/29/16 06:29 04/30/16 05:39 Vitamin B Complex/ Vit C/Folic Acid (Nephrovite) 1 tab DAILY ORAL 04/28/16 13:00 05/28/16 12:59 04/30/16 09:29 LEO MCGEE Apr 30, 2016 23:11
[2016-05-01] VITALS (29 sets, daily range): BP systolic 129–208; BP diastolic 57–100
[2016-05-01] MEDS: sitaGLIPtin 50mg tab ORAL SCH (06:22)
[2016-05-01] MEDS: NovoLOG Insulin Flexpen SUBQ SCH ×3 (06:23→16:30)
[2016-05-01] MEDS: Nephrovite tab ORAL SCH (08:31)
[2016-05-01] MEDS: Carvedilol 12.5mg tab ORAL SCH (08:33)
--- NOTE | 2016-05-01 10:17 | Internal Med Progress Note ---
Subjective Date of Service: May 01, 2016 Physician Name Maria T Monteiro Attending Physician Sea Lundberg MD Current Medications Medications (Trade) Dose Ordered Sig/Gabriele Route PRN Reason Start Time Stop Time Status Last Admin Dose Admin Carvedilol (Coreg) 12.5 mg EVERY 12 HOURS ORAL 04/29/16 14:00 05/29/16 13:59 04/30/16 09:29 Cetylpyridinium Chloride (Cepacol) 1 lozenge EVERY 6 HOURS PRN NATALIE For Cough 04/29/16 21:15 05/29/16 21:14 05/01/16 08:31 Clonazepam (KlonoPIN) 0.5 mg Q6H PRN ORAL For Anxiety 04/28/16 08:45 05/05/16 08:44 Clonidine HCl (Catapres) 0.1 mg Q4H PRN ORAL SBP>160 04/28/16 08:45 05/28/16 08:44 04/29/16 12:39 Dextrose (Dextrose 50%) STAT PRN IV Hypoglycemia 04/28/16 08:45 05/28/16 08:44 Epoetin Mau (Procrit (for ESRD on dialysis)) 7,000 units MON-WED-SUN SUBQ 04/28/16 21:00 05/28/16 20:59 04/28/16 22:05 Escitalopram Oxalate (Lexapro) 10 mg DAILY ORAL 04/28/16 09:00 05/28/16 08:59 05/01/16 08:31 Insulin Aspart (NovoLOG) BEFORE MEALS AND HS SUBQ 04/28/16 11:30 05/28/16 11:29 04/30/16 21:51 Irbesartan (Avapro) 75 mg DAILY ORAL 04/28/16 09:00 05/28/16 08:59 05/01/16 08:31 Sitagliptin Phosphate (Januvia) 25 mg ACBREAKFAST ORAL 04/29/16 06:30 05/29/16 06:29 05/01/16 06:22 Vitamin B Complex/ Vit C/Folic Acid (Nephrovite) 1 tab DAILY ORAL 04/28/16 13:00 05/28/16 12:59 05/01/16 08:31 Allergies: Coded Allergies: No Known Allergies (Verified , 08/23/06) ROS Limited/Unobtainable: No Constitutional: Reports: no symptoms HEENT: Reports: no symptoms Cardiovascular: Reports: no symptoms Respiratory: Reports: no symptoms Gastrointestinal/Abdominal: Reports: no symptoms Genitourinary: Reports: no symptoms Neurologic/Psychiatric: Reports: no symptoms Subjective 55 YO F admitted with generalized weakness. Now clotted left upper arm arteriovenous dialysis fistula. Cover for Int Davin-Dr Lundberg. Objective Last Vital Signs Date Time Temp Pulse Resp B/P Pulse Ox O2 Delivery O2 Flow Rate FiO2 05/01/16 08:50 55 05/01/16 08:33 140/64 05/01/16 08:06 97.5 18 100 Room Air Laboratory Tests Test 04/30/16 20:55 White Blood Count 5.9 K/UL (4.8-10.8) Red Blood Count 2.58 M/UL (4.20-5.40) L Hemoglobin 8.8 G/DL (12.0-16.0) L Hematocrit 25.8 % (37.0-47.0) L Mean Corpuscular Volume 100 FL (80-99) H Mean Corpuscular Hemoglobin 34.2 PG (27.0-31.0) H Mean Corpuscular Hemoglobin Concent 34.2 G/DL (32.0-36.0) Red Cell Distribution Width 13.5 % (11.6-14.8) Platelet Count 63 K/UL (150-450) L Mean Platelet Volume 6.5 FL (6.5-10.1) Neutrophils (%) (Auto) 65.6 % (45.0-75.0) Lymphocytes (%) (Auto) 19.6 % (20.0-45.0) L Monocytes (%) (Auto) 10.2 % (1.0-10.0) H Eosinophils (%) (Auto) 3.7 % (0.0-3.0) H Basophils (%) (Auto) 1.0 % (0.0-2.0) Sodium Level 140 mEQ/L (135-145) Potassium Level 5.1 mEQ/L (3.4-4.9) H Chloride Level 108 mEQ/L (98-107) H Carbon Dioxide Level 15 mEQ/L (20-30) L Anion Gap 17 (5-15) H Blood Urea Nitrogen 53 mg/dL (7-23) H Creatinine 6.9 mg/dL (0.5-0.9) H Estimat Glomerular Filtration Rate 6.2 mL/min (>60) Glucose Level 126 mg/dL (74-106) H Calcium Level 8.5 mg/dL (8.6-10.2) L Intake and Output 04/30/16 05/01/16 19:00 07:00 Intake Total 650 ml 250 ml Output Total 1150 ml Balance -500 ml 250 ml Intake Oral 650 ml 250 ml Output Urine Total 1150 ml # Voids 4 Objective Objective GENERAL: The patient is awake, responsive, in no acute distress. HEENT: Head and neck examination, pupils are equal and reactive to light. Extraocular movements are intact. NECK: Supple. No JVD. LUNGS: Good air entry. No wheezes or rales. HEART: S1 and S2. Distant heart sounds. No murmur. ABDOMEN: Soft and nontender. Morbidly obese. EXTREMITIES: A +2 edema bilateral lower extremities. AV fistula in left upper extremity no thrill. NEUROLOGIC: Cranial nerves II through XII are grossly intact. Motor is 5/5 in all the extremities. Gait is unsteady. GENITOURINARY: Refused and Deferred. RECTAL: Refused and deferred. PSYCHIATRIC: Mood and affect is intact. Assessment/Plan Assessment/Plan Assessment/Plan Assessment/Plan ASSESSMENT: 1. Severe weakness. 2. End-stage renal disease, on hemodialysis. 3. Fluid overload. 4. Anemia of chronic kidney disease. 5. Hypertension. 6. Diabetes type 2. 7. Morbid obesity. 8. Hyperkalemia. 9. Thrombocytopenia. 10. clotted Left UE AVF. PLAN: in telemetry. Dr. Aris Perez consultation from Nephrology. laboratory in the morning. Accu-Chek with sliding scale. Code status is Full Code. DVT prophylaxis with SCDs for AVF declotting today by IR. Hemodialysis today then discharge home MARIA T MONTEIRO May 01, 2016 10:17
[2016-05-01 10:54] LABS: MEAN CORPUSCULAR HEMOGLOBIN 33.2 PG (27.0-31.0); MEAN CORPUSCULAR HGB CONC 33.1 G/DL (32.0-36.0); MEAN CORPUSCULAR VOLUME 101 FL (80-99); MEAN PLATELET VOLUME 6.1 FL (6.5-10.1); PLATELET COUNT 93 K/UL (150-450); RED BLOOD COUNT 2.99 M/UL (4.20-5.40); RED CELL DISTRIBUTION WIDTH 13.8 % (11.6-14.8); WHITE BLOOD COUNT 5.9 K/UL (4.8-10.8)
[2016-05-01] MEDS ORDERED: Midazolam 2mg/2ml Inj ONE (11:00)
[2016-05-01] MEDS ORDERED: Sodium Bicarbonate 8.4% 50ml Inj ONE (11:01)
[2016-05-01] MEDS ORDERED: Heparin Sod 1000 units/ml 10ml ONE (11:01)
[2016-05-01] MEDS ORDERED: Lidocaine 1% Plain 30 ml INJ ONE ×2 (11:01→15:00)
[2016-05-01] MEDS ORDERED: fentaNYL 100 mcg/2 mL IV ONE (11:01)
[2016-05-01] MEDS ORDERED: Heparin 2000 units/Ns 1000ml 2,000 ML ONE (11:01)
[2016-05-01 11:03] LABS: POTASSIUM 4.8 mEQ/L (3.4-4.9)
[2016-05-01 11:04] LABS: CALCIUM 9.3 mg/dL (8.6-10.2); CREATININE 6.6 mg/dL (0.5-0.9); GLOMERULAR FILTRATION RATE 6.5 mL/min (>60)
--- NOTE | 2016-05-01 12:07 | Nephrology Progress Note ---
Assessment/Plan Problem List: (1) Clotted renal dialysis arteriovenous graft (2) ESRD (end stage renal disease) on dialysis (3) Anemia (4) Lightheadedness Plan declotting by radiology discussed with RN HD today Subjective Subjective In NAD Objective Objective Last 24 Hour Vital Signs Date Time Temp Pulse Resp B/P Pulse Ox O2 Delivery O2 Flow Rate FiO2 05/01/16 11:40 97.1 54 18 129/57 100 Room Air 05/01/16 08:50 55 05/01/16 08:45 55 05/01/16 08:40 53 05/01/16 08:33 52 140/64 05/01/16 08:31 140/64 05/01/16 08:06 97.5 52 18 140/64 100 Room Air 05/01/16 08:00 54 05/01/16 04:13 98.2 59 19 136/75 94 Room Air 05/01/16 04:00 55 05/01/16 00:40 52 84 78 05/01/16 00:39 98.7 52 18 140/67 98 Room Air 05/01/16 00:00 56 04/30/16 21:48 55 159/68 04/30/16 21:00 55 159/68 04/30/16 21:00 55 04/30/16 20:00 98.1 55 18 159/68 100 Room Air 04/30/16 20:00 61 04/30/16 16:00 98.9 61 18 158/74 100 Room Air 04/30/16 16:00 58 Intake and Output 04/30/16 05/01/16 19:00 07:00 Intake Total 650 ml 250 ml Output Total 1150 ml Balance -500 ml 250 ml Intake Oral 650 ml 250 ml Output Urine Total 1150 ml # Voids 4 Laboratory Tests 04/30/16 20:55: White Blood Count 5.9, Red Blood Count 2.58L, Hemoglobin 8.8L, Hematocrit 25.8L , Mean Corpuscular Volume 100H, Mean Corpuscular Hemoglobin 34.2H, Mean Corpuscular Hemoglobin Concent 34.2, Red Cell Distribution Width 13.5, Platelet Count 63L, Mean Platelet Volume 6.5, Neutrophils (%) (Auto) 65.6, Lymphocytes (% ) (Auto) 19.6L, Monocytes (%) (Auto) 10.2H, Eosinophils (%) (Auto) 3.7H, Basophils (%) (Auto) 1.0, Sodium Level 140, Potassium Level 5.1H, Chloride Level 108H, Carbon Dioxide Level 15L, Anion Gap 17H, Blood Urea Nitrogen 53H, Creatinine 6.9H, Estimat Glomerular Filtration Rate 6.2, Glucose Level 126H, Calcium Level 8.5L 05/01/16 09:40: White Blood Count 5.9, Red Blood Count 2.99L, Hemoglobin 9.9L, Hematocrit 30.0L , Mean Corpuscular Volume 101H, Mean Corpuscular Hemoglobin 33.2H, Mean Corpuscular Hemoglobin Concent 33.1, Red Cell Distribution Width 13.8, Platelet Count 93L, Mean Platelet Volume 6.1L, Neutrophils (%) (Auto) , Lymphocytes (%) ( Auto) , Monocytes (%) (Auto) , Eosinophils (%) (Auto) , Basophils (%) (Auto) , Sodium Level 139, Potassium Level 4.8, Chloride Level 103, Carbon Dioxide Level 17L, Anion Gap 19H, Blood Urea Nitrogen 52H, Creatinine 6.6H, Estimat Glomerular Filtration Rate 6.5, Glucose Level 90, Calcium Level 9.3, Neutrophils % (Manual) [Pending], Lymphocytes % (Manual) [Pending], Platelet Estimate [Pending], Platelet Morphology [Pending] Height (Feet): 5 Height (Inches): 7.00 Weight (Pounds): 250 Cardiovascular: normal rate Respiratory/Chest: lungs clear Extremities: trace edema ANIYAH COMER 13, 2017 12:07
[2016-05-01 13:24] LABS: BAND NEUTROPHILS % (MANUAL) 1 % (0-8); BASOPHILS % (MANUAL) 0 % (0-2); EOSINOPHILS % (MANUAL) 2 % (0-3); LYMPHOCYTES % (MANUAL) 25 % (20-45); MACROCYTES 1+; NEUTROPHILS % (MANUAL) 61 % (45-75); PLATELET ESTIMATE DECREASED; PLATELET MORPHOLOGY NORMAL; TOTAL CELLS COUNTED 100
--- NOTE | 2016-05-01 14:06 | Cardiology Report ---
APPROVED REPORT EKG Measurement Heart [id number] Normal sinus rhythm with sinus arrhythmia Cannot rule out Anterior infarct, age undetermined Abnormal ECG
--- NOTE | 2016-05-01 14:12 | Pre-Procedure Note/Attestation ---
Pre-Procedure Note/Attestation Complete Prior to Procedure Planned Procedure: not applicable Procedure Narrative: dialysis graft thrombolysis and other intervention Indications for Procedure Pre-Operative Diagnosis: clotted dialysis access Attestation I attest that I discussed the nature of the procedure; its benefits; risks and complications; and alternatives (and the risks and benefits of such alternatives ), prior to the procedure, with the patient (or the patient's legal community health program representative). I attest that, if there was a reasonable possibility of needing a blood transfusion, the patient (or the patient's legal community health program representative) was given the [facility] standardized written summary, pursuant to the Liu Agustín Blood Safety Act ([place] Health and Safety Code # 1645, as amended). I attest that I re-evaluated the patient just prior to the surgery and that there has been no change in the patient's H&P, except as documented below: RONAL WHITT M.D. May 01, 2016 14:12
[2016-05-01] MEDS ORDERED: Cathflo Alteplase 2mg Inj INJ ONE (14:30)
--- NOTE | 2016-05-01 14:39 | Pulmonology Progress Note ---
Assessment/Plan Problems: (1) Lightheadedness (2) Vertigo (3) Renal failure (ARF), acute on chronic (4) Syncope (5) Bradycardia Assessment/Plan echo cardiology f/u renal follow up, HD check electrolytes seems stable declotting for today Subjective ROS Limited/Unobtainable: No Interval Events: going to radiology for declotting, slightly dizzy Allergies: Coded Allergies: No Known Allergies (Verified , 08/23/06) Objective Last 24 Hour Vital Signs Date Time Temp Pulse Resp B/P Pulse Ox O2 Delivery O2 Flow Rate FiO2 05/01/16 14:30 57 9 186/91 100 Room Air 05/01/16 14:25 56 10 178/90 100 Room Air 05/01/16 13:16 56 12 2.0 05/01/16 11:40 97.1 54 18 129/57 100 Room Air 05/01/16 08:50 55 05/01/16 08:45 55 05/01/16 08:40 53 05/01/16 08:33 52 140/64 05/01/16 08:31 140/64 05/01/16 08:06 97.5 52 18 140/64 100 Room Air 05/01/16 08:00 54 05/01/16 04:13 98.2 59 19 136/75 94 Room Air 05/01/16 04:00 55 05/01/16 00:40 52 84 78 05/01/16 00:39 98.7 52 18 140/67 98 Room Air 05/01/16 00:00 56 04/30/16 21:48 55 159/68 04/30/16 21:00 55 159/68 04/30/16 21:00 55 04/30/16 20:00 98.1 55 18 159/68 100 Room Air 04/30/16 20:00 61 04/30/16 16:00 98.9 61 18 158/74 100 Room Air 04/30/16 16:00 58 Intake and Output 04/30/16 05/01/16 19:00 07:00 Intake Total 650 ml 250 ml Output Total 1150 ml Balance -500 ml 250 ml Intake Oral 650 ml 250 ml Output Urine Total 1150 ml # Voids 4 Objective General Appearance: WD/WN HEENT: normocephalic, atraumatic Respiratory/Chest: chest wall non-tender, crackles/rales Cardiovascular: normal peripheral pulses, normal rate Abdomen: normal bowel sounds, soft, non tender Genitourinary: normal external genitalia Extremities: no cyanosis, no clubbing Skin: no rash Neurologic/Psychiatric: rn eligibility II-XII grossly normal Laboratory Tests 04/30/16 20:55: White Blood Count 5.9, Red Blood Count 2.58L, Hemoglobin 8.8L, Hematocrit 25.8L , Mean Corpuscular Volume 100H, Mean Corpuscular Hemoglobin 34.2H, Mean Corpuscular Hemoglobin Concent 34.2, Red Cell Distribution Width 13.5, Platelet Count 63L, Mean Platelet Volume 6.5, Neutrophils (%) (Auto) 65.6, Lymphocytes (% ) (Auto) 19.6L, Monocytes (%) (Auto) 10.2H, Eosinophils (%) (Auto) 3.7H, Basophils (%) (Auto) 1.0, Sodium Level 140, Potassium Level 5.1H, Chloride Level 108H, Carbon Dioxide Level 15L, Anion Gap 17H, Blood Urea Nitrogen 53H, Creatinine 6.9H, Estimat Glomerular Filtration Rate 6.2, Glucose Level 126H, Calcium Level 8.5L 05/01/16 09:40: White Blood Count 5.9, Red Blood Count 2.99L, Hemoglobin 9.9L, Hematocrit 30.0L , Mean Corpuscular Volume 101H, Mean Corpuscular Hemoglobin 33.2H, Mean Corpuscular Hemoglobin Concent 33.1, Red Cell Distribution Width 13.8, Platelet Count 93L, Mean Platelet Volume 6.1L, Neutrophils (%) (Auto) , Lymphocytes (%) ( Auto) , Monocytes (%) (Auto) , Eosinophils (%) (Auto) , Basophils (%) (Auto) , Sodium Level 139, Potassium Level 4.8, Chloride Level 103, Carbon Dioxide Level 17L, Anion Gap 19H, Blood Urea Nitrogen 52H, Creatinine 6.6H, Estimat Glomerular Filtration Rate 6.5, Glucose Level 90, Calcium Level 9.3, Differential Total Cells Counted 100, Neutrophils % (Manual) 61, Lymphocytes % ( Manual) 25, Monocytes % (Manual) 11H, Eosinophils % (Manual) 2, Basophils % ( Manual) 0, Band Neutrophils 1, Platelet Estimate DecreasedL, Platelet Morphology Normal, Macrocytosis 1+ Current Medications Medications (Trade) Dose Ordered Sig/Gabriele Route PRN Reason Start Time Stop Time Status Last Admin Dose Admin Carvedilol (Coreg) 12.5 mg EVERY 12 HOURS ORAL 04/29/16 14:00 05/29/16 13:59 04/30/16 09:29 Cetylpyridinium Chloride (Cepacol) 1 lozenge EVERY 6 HOURS PRN NATALIE For Cough 04/29/16 21:15 05/29/16 21:14 05/01/16 08:31 Clonazepam (KlonoPIN) 0.5 mg Q6H PRN ORAL For Anxiety 04/28/16 08:45 05/05/16 08:44 Clonidine HCl (Catapres) 0.1 mg Q4H PRN ORAL SBP>160 04/28/16 08:45 05/28/16 08:44 04/29/16 12:39 Dextrose (Dextrose 50%) STAT PRN IV Hypoglycemia 04/28/16 08:45 05/28/16 08:44 Epoetin Mau (Procrit (for ESRD on dialysis)) 7,000 units SUN-SUN-SUN SUBQ 04/28/16 21:00 05/28/16 20:59 04/28/16 22:05 Escitalopram Oxalate (Lexapro) 10 mg DAILY ORAL 04/28/16 09:00 05/28/16 08:59 05/01/16 08:31 Heparin Sodium (Porcine) (Heparin 5000 units/ml) 2,000 units ONCE ONCE INJ 05/01/16 15:00 05/01/16 15:01 Heparin Sodium/ Sodium Chloride (Heparin 2000 units/Ns 1000ml premix) 4,000 unit ONCE ONCE INJ 05/01/16 15:00 05/01/16 15:01 Insulin Aspart (NovoLOG) BEFORE MEALS AND HS SUBQ 04/28/16 11:30 05/28/16 11:29 04/30/16 21:51 Irbesartan (Avapro) 75 mg DAILY ORAL 04/28/16 09:00 05/28/16 08:59 05/01/16 08:31 Lidocaine HCl (Xylocaine 1% 30ml) 30 ml ONCE ONCE INJ 05/01/16 15:00 05/01/16 15:01 Sitagliptin Phosphate (Januvia) 25 mg ACBREAKFAST ORAL 04/29/16 06:30 05/29/16 06:29 05/01/16 06:22 Sodium Bicarbonate (Sodium Bicarbonate) 50 ml ONCE ONCE IV 05/01/16 15:00 05/01/16 15:01 Vitamin B Complex/ Vit C/Folic Acid (Nephrovite) 1 tab DAILY ORAL 04/28/16 13:00 05/28/16 12:59 05/01/16 08:31 LEO MCGEE May 01, 2016 14:39
[2016-05-01] MEDS ORDERED: Heparin Sod 1000 units/ml 10ml INJ ONE (15:00)
[2016-05-01] MEDS ORDERED: Sodium Bicarbonate 8.4% 50ml Inj IV ONE (15:00)
[2016-05-01] MEDS ORDERED: Heparin 2000 units/Ns 1000ml INJ ONE (15:00)
[2016-05-01] MEDS ORDERED: Heparin 5000 units/ml inj INJ ONE (15:00)
--- NOTE | 2016-05-01 15:03 | Cardiology Report ---
APPROVED REPORT EXAM: Two-dimensional and M-mode echocardiogram with Doppler and color Doppler. INDICATION Left Ventricular Function M-Mode DIMENSIONS IVSd2.0 (0.7-1.1cm)Left Atrium (MM)4.1 (1.6-4.0cm) LVDd4.4 (3.5-5.6cm)Aortic Root2.9 (2.0-3.7cm) IVSs2.1 cm LVDs2.1 (2.5-4.0cm) PWs2.0 cm Technically difficult study due to poor acoustic windows. Study quality precludes accurate assessment of regional wall motion. Normal left ventricular chamber size, systolic function and wall motion. Left ventricular ejection fraction estimated to be 60 %. Mild left ventricular hypertrophy. No evidence of pericardial fat or effusion. All other cardiac chamber sizes are within normal limits. Mild focal aortic valve sclerosis with adequate cusp excursion. Mildly thickened mitral valve leaflets with normal excursion. Mild mitral annulus and aortic root calcification. Pulmonic valve not well visualized. Normal tricuspid valve structure. IVC dilated at 1.7 cm with physiologic collapse. A color flow and spectral Doppler study was performed and revealed: Trace aortic regurgitation. Trace mitral regurgitation. Mitral diastolic velocities suggest reduced left ventricular relaxation (Grade I). Mild tricuspid regurgitation. Tricuspid systolic velocities suggests peak right ventricular systolic pressure of 43 mmHg, consistent with mild pulmonary hypertension. Trace pulmonic regurgitation present.
--- NOTE | 2016-05-01 17:24 | Brief Operative Note ---
Immediate Post Operative Note Operative Note Pre-op Diagnosis: clotted dialysis access Procedure: fistula thrombolysis, PHARMACIST IN CHARGE Post-op Diagnosis: same Post-op Diagnosis: same as pre-op Findings: consistent w/pre-op dx studies Surgeon: Donnie Steward Anesthesia: local Specimen: none Complications: none Condition: stable Estimated Blood Loss: minimal Drains: none Implant(s) used?: No RONAL STEWARD M.D. May 01, 2016 17:24
--- NOTE | 2016-05-01 19:47 | Cardiology Progress Note ---
Assessment/Plan Assessment/Plan fall non syncopal with hs of same thrombocytopenia htn esrd noncompliance with dialysis diarrhea dialysis per nephrology sats 100 % latest bp is elevated per staff walking around and is independent not off balance when walkse tele reviewed neg plt low but improving labs reviewed has diarrhea Subjective Cardiovascular: Denies: chest pain, irregular heart rate, lightheadedness Respiratory: Denies: shortness of breath Gastrointestinal/Abdominal: Reports: diarrhea Genitourinary: Denies: burning Objective Last 24 Hour Vital Signs Date Time Temp Pulse Resp B/P Pulse Ox O2 Delivery O2 Flow Rate FiO2 05/01/16 19:33 Room Air 2.0 05/01/16 19:33 Room Air 2.0 05/01/16 19:30 Room Air 05/01/16 16:40 Room Air 2.0 05/01/16 16:20 56 22 190/100 100 Nasal Cannula 2.0 05/01/16 16:15 55 15 /87 100 Nasal Cannula 2.0 05/01/16 16:10 57 22 / 100 Nasal Cannula 2.0 05/01/16 16:05 56 13 194 100 Nasal Cannula 2.0 05/01/16 16:00 56 12 204/87 100 Nasal Cannula 2.0 05/01/16 15:55 57 16 100 Nasal Cannula 2.0 05/01/16 15:50 56 15 100 Nasal Cannula 2.0 05/01/16 15:45 54 12 / 100 Nasal Cannula 2.0 05/01/16 15:40 55 16 100 Nasal Cannula 2.0 05/01/16 15:35 55 16 193/ 100 Nasal Cannula 2.0 05/01/16 15:30 55 13 195/90 100 Nasal Cannula 2.0 05/01/16 15:25 56 10 196/89 100 Nasal Cannula 2.0 05/01/16 15:20 55 11 / 100 Nasal Cannula 2.0 05/01/16 15:15 55 13 193/92 100 Nasal Cannula 2.0 05/01/16 15:12 55 18 199/95 100 Nasal Cannula 2.0 05/01/16 15:05 56 12 208/95 100 Nasal Cannula 2.0 05/01/16 15:00 57 20 201/80 100 Nasal Cannula 2.0 05/01/16 14:55 55 22 203/88 100 Nasal Cannula 2.0 05/01/16 14:50 58 10 199/95 100 Nasal Cannula 2.0 05/01/16 14:45 56 12 205/93 100 Nasal Cannula 2.0 05/01/16 14:40 57 12 185/91 100 Nasal Cannula 2.0 05/01/16 14:35 56 12 184/85 100 Nasal Cannula 2.0 05/01/16 14:30 57 9 186/91 100 Nasal Cannula 2.0 05/01/16 14:25 56 10 178/90 100 Nasal Cannula 2.0 05/01/16 13:16 56 12 2.0 05/01/16 11:40 97.1 54 18 129/57 100 Room Air 05/01/16 08:50 55 05/01/16 08:45 55 05/01/16 08:40 53 05/01/16 08:33 52 140/64 05/01/16 08:31 140/64 05/01/16 08:06 97.5 52 18 140/64 100 Room Air 05/01/16 08:00 54 05/01/16 04:13 98.2 59 19 136/75 94 Room Air 05/01/16 04:00 55 05/01/16 00:40 52 84 78 05/01/16 00:39 98.7 52 18 140/67 98 Room Air 05/01/16 00:00 56 04/30/16 21:48 55 159/68 04/30/16 21:00 55 159/68 04/30/16 21:00 55 04/30/16 20:00 98.1 55 18 159/68 100 Room Air 04/30/16 20:00 61 General Appearance: alert Neck: supple Cardiovascular: normal rate, regular rhythm Respiratory/Chest: lungs clear, normal breath sounds Abdomen: non tender, soft Extremities: no swelling Intake and Output 04/30/16 05/01/16 19:00 07:00 Intake Total 650 ml 250 ml Output Total 1150 ml Balance -500 ml 250 ml Intake Oral 650 ml 250 ml Output Urine Total 1150 ml # Voids 4 Laboratory Tests Test 04/30/16 20:55 05/01/16 09:40 White Blood Count 5.9 K/UL (4.8-10.8) 5.9 K/UL (4.8-10.8) Red Blood Count 2.58 M/UL (4.20-5.40) L 2.99 M/UL (4.20-5.40) L Hemoglobin 8.8 G/DL (12.0-16.0) L 9.9 G/DL (12.0-16.0) L Hematocrit 25.8 % (37.0-47.0) L 30.0 % (37.0-47.0) L Mean Corpuscular Volume 100 FL (80-99) H 101 FL (80-99) H Mean Corpuscular Hemoglobin 34.2 PG (27.0-31.0) H 33.2 PG (27.0-31.0) H Mean Corpuscular Hemoglobin Concent 34.2 G/DL (32.0-36.0) 33.1 G/DL (32.0-36.0) Red Cell Distribution Width 13.5 % (11.6-14.8) 13.8 % (11.6-14.8) Platelet Count 63 K/UL (150-450) L 93 K/UL (150-450) L Mean Platelet Volume 6.5 FL (6.5-10.1) 6.1 FL (6.5-10.1) L Neutrophils (%) (Auto) 65.6 % (45.0-75.0) % (45.0-75.0) Lymphocytes (%) (Auto) 19.6 % (20.0-45.0) L % (20.0-45.0) Monocytes (%) (Auto) 10.2 % (1.0-10.0) H % (1.0-10.0) Eosinophils (%) (Auto) 3.7 % (0.0-3.0) H % (0.0-3.0) Basophils (%) (Auto) 1.0 % (0.0-2.0) % (0.0-2.0) Sodium Level 140 mEQ/L (135-145) 139 mEQ/L (135-145) Potassium Level 5.1 mEQ/L (3.4-4.9) H 4.8 mEQ/L (3.4-4.9) Chloride Level 108 mEQ/L (98-107) H 103 mEQ/L (98-107) Carbon Dioxide Level 15 mEQ/L (20-30) L 17 mEQ/L (20-30) L Anion Gap 17 (5-15) H 19 (5-15) H Blood Urea Nitrogen 53 mg/dL (7-23) H 52 mg/dL (7-23) H Creatinine 6.9 mg/dL (0.5-0.9) H 6.6 mg/dL (0.5-0.9) H Estimat Glomerular Filtration Rate 6.2 mL/min (>60) 6.5 mL/min (>60) Glucose Level 126 mg/dL (74-106) H 90 mg/dL (74-106) Calcium Level 8.5 mg/dL (8.6-10.2) L 9.3 mg/dL (8.6-10.2) Differential Total Cells Counted 100 Neutrophils % (Manual) 61 % (45-75) Lymphocytes % (Manual) 25 % (20-45) Monocytes % (Manual) 11 % (1-10) H Eosinophils % (Manual) 2 % (0-3) Basophils % (Manual) 0 % (0-2) Band Neutrophils 1 % (0-8) Platelet Estimate Decreased L Platelet Morphology Normal Macrocytosis 1+ HEIDI PICKETT May 01, 2016 19:46
--- NOTE | 2016-05-02 13:26 | Discharge Summary ---
Discharge Summary Hospital Course Date of Admission Apr 27, 2016 at 18:31 Date of Discharge May 01, 2016 at 20:25 Admitting Diagnosis renal failure/needs dialysis, presyncope HPI Cris Zuluaga is a 55 year old female who was admitted on Apr 27, 2016 at 18: 31 for Renal Failure,Syncope Procedures dc summary #[id number] Discharge Medications Continued Medications: Clonazepam* (Klonopin*) 0.5 Mg Tablet 0.5 MG ORAL Q6H, #15 TAB 0 Refills Escitalopram Oxalate* (Lexapro*) 10 Mg Tablet 10 MG ORAL DAILY, TAB Olmesartan Medoxomil (Benicar) 5 Mg Tablet 5 MG ORAL DAILY, TAB Sitagliptin* (Januvia*) 25 Mg Tablet 25 MG ORAL DAILY, TAB Discharge Condition Upon Discharge: stable Discharge Disposition Patient was discharged to Home () Discharge Diagnoses: Discharge Instructions Discharge Instructions Special Instructions I have been assigned to complete a D/C Summary on this account. I was not involved in the patient management Alisha Kemp NP (Vanchtein) May 02, 2016 13:26
--- NOTE | 2016-05-03 04:08 | Discharge Summary 2 SIG ---
DATE OF ADMISSION: 04/27/2016 DATE OF DISCHARGE: 05/01/2016 REASON FOR ADMISSION: 55-year-old female with end-stage renal disease, on hemodialysis, presented to ED woth complaints of lightheadedness while being in the restaurant. She was unable to stand up. She stated that each time when she was trying to stand up, she would fall backwards. She gets dialysis twice a week. She denied recent illness. She denied fever and chills. She denied cough and congestion. No chest pain. No shortness of breath. Workup in the emergency room revealed no leukocytosis, anemia with hemoglobin of 9 and hematocrit 27.1. Chemistry revealed evidence of renal failure and azotemia, BUN of 51 and creatinine of 7.5, potassium was 5.1, platelets- 68,000. Chest x-ray revealed no acute cardiopulmonary disease. The patient was admitted f or further management. ADMITTING DIAGNOSES: 1. Vertigo. 2. Severe weakness. 3. End-stage renal disease, on hemodialysis. 4. Fluid overload. 5. Acute anemia of chronic kidney disease. 6. Morbid obesity. 7. Thrombocytopenia. 8. Hyperkalemia. HOSPITAL COURSE: The patient was admitted to the hospital. The patient was started on dialysis, locum tenens psychiatrist followed, renal parameters and electrolytes were closely monitored. Echocardiogram revealed preserved ejection fraction of 60%, right ventricular systolic pressure of 43 consistent with mild pulmonary hypertension. Blood sugar was managed with sliding scale of insulin. Per locum tenens psychiatrist recommendations, the patient needs hemodialysis 3 times a week, instead of two as she was previously getting. Patient was noted to have clotted hemodialysis arteriovenous graft . Subsequently she had undergone thrombolysis with percutaneous transluminal angioplasty of clotted AV graft. AV graft was cleared for use Blood pressure was managed with current regimen of antihypertensive. Blood pressure labile and not always controlled. Patient needs close monitoring and titration of antihypertensive regimen as outpatient. Metal Bed Assembler reviewed telemetry. Telemetry was negative. Troponin was negative. .No evidence of arrhythmia on telemetry. Per marketing forecaster, the dizziness was not syncopal. The patient with a history of the same type of dizziness in the past. Vertigo possibly may be related to labile and uncontrolled hypertension. Anemia workup revealed stable iron panel. Hemoglobin and hematocrit trending up. Upon discharge, hemoglobin 9.9, hematocrit 30, platelets were slowly trending up as well from 68,000 initially up to 93,000 upon discharge. Hyperkalemia resolved. Urine tox screen was negative. The patient was stable for discharge home. DISCHARGE DIAGNOSES: 1. Vertigo, non-syncopal. ( possibly due to uncontrolled hypertension) 2. End-stage renal disease, on hemodialysis. 3. Fluid overload. 4. Hypertensive, urgency. 5. Anemia of chronic kidney disease. 6. Morbid obesity. 7. Status post fall, non-syncopal. 8. Clotted arteriovenous graft. 9. Status post thrombolysis with percutaneous transluminal angioplasty of clotted arteriovenous graft. 10. Mild pulmonary HTN 11. Thrombocytopenia-improving 12. Noncompliance with hemodialysis. 13. Diabetes. 14. Morbid obesity. DISCHARGE MEDICATIONS: See medication reconciliation list. DISCHARGE INSTRUCTIONS: The patient was discharged home. The patient needs to follow up with primary medical doctor and hemodialysis as scheduled, three times a week, reinforced compliance with appointments for dialysis and compliance with the medication regimen. Sea Lundberg M.D. I have been assigned to dictate discharge summary on this account and I was not involved in the patient's management. Alisha Buihealth systemMarnie N.P. DR: YOSELIN JOB#: [id number] CC: [id number]
--- NOTE | 2016-05-03 12:45 | Diagnostic Imaging Report ---
Indication: Clotted dialysis graft Technique: Informed consent obtained prior to commencing the procedure. Procedure timeout performed. Total sterile technique, including sterile gloves and hand hygiene, hat, mask, sterile gown, large sterile drape, and preparation with 2% chlorhexidine utilized. Under real-time ultrasound guidance, antegrade puncture juxta anastomotic segment of left brachial basilic AV fistula with 20-gauge needle, passage 108 guidewire, insertion 4 Gibraltarian micropuncture introducer, insertion 0.035 guidewire, insertion of 6 Gibraltarian sheath. A Kumpe catheter was directed into the venous outflow, and central venogram was performed, demonstrating no significant central stenosis. The Kumpe catheter was then withdrawn through the clotted portion of the fistula, and 3000 units of heparin injected. The Kumpe catheter was removed, and a Trerotola device was activated through the clotted portion of the fistula. 3 mg of Activase was injected through the Trerotola device as was activated. Balloon angioplasty of the outflow downstream from the stent was performed ominously using a 6 mm balloon and a 7 mm balloon. The fistula was then punctured retrograde downstream from the initial puncture. The Trerotola device could not be successfully negotiated across the arterial anastomosis. Therefore, a Kumpe catheter was used to direct the guidewire into the brachial artery. Over the guidewire, a Gracie catheter was place, inflated within the brachial artery, and pulled across the arterial anastomosis into the arterial limb of the fistula. The Trerotola device was then partially activated in the upstream portion of the fistula. Followup fistulography performed, demonstrating restored flow, but considerable narrowing within the upstream portions of the fistula. The chest anastomotic segment was dilated with a 4 mm balloon. The fistula immediately downstream from this was dilated with a 5 mm and subsequently a 6 mm balloon. Completion fistulography performed, demonstrating improved appearance. Some residual stenosis of the venous outflow was still noted, so through the antegrade sheath the 7 mm balloon was redeployed. Followup fistulography performed, demonstrating improved appearance of the fistula, although a small contained extravasation was noted at the downstream angioplasty site. This was left alone as no active extravasation is noted. After review of images, catheters and sheaths were withdrawn. Pressure held hemostasis was achieved. Total fluoroscopy time 9.1 minutes. Total dose area product 2856 dGycm2 Comparison: None Findings: Initial outflow venogram demonstrates no evidence of central venous stenosis. Interprocedural fistulography findings as above. Completion fistulogram demonstrates small caliber but restored patency of left upper terminate AV fistula, with brisk flow. There is a stent in the downstream venous outflow. Impression: Successful roman catholic of patency of clotted left brachiobasilic AV fistula, as described
== END 2016-05-01 20:25 | disposition home or self-care (01) | DRG 673 ==
LOC: EDBD 14:28 → EMR 16:29 → EDBEDREQ 18:16 → 2E 18:31 → EDBEDREQ 04-28 05:23 → 2E 04-28 06:12
PROC: 5A1D00Z (ICD-10-PCS; principal; 2016-04-27)
PROC: 057C3ZZ Dilation of Left Basilic Vein, Percutaneous Approach (ICD-10-PCS; 2016-05-01)
PROC: 03783ZZ Dilation of Left Brachial Artery, Percutaneous Approach (ICD-10-PCS; 2016-05-01)
DX: I12.0 Hypertensive chronic kidney disease with stage 5 chronic kidney disease or end stage renal disease (principal); N18.6 End stage renal disease; N17.9 Acute kidney failure, unspecified; D69.6 Thrombocytopenia, unspecified; T82.868A Thrombosis due to vascular prosthetic devices, implants and grafts, initial encounter; I27.2 Other secondary pulmonary hypertension; E87.70 Fluid overload, unspecified; R42 Dizziness and giddiness; E87.5 Hyperkalemia; Z99.2 Dependence on renal dialysis; D63.1 Anemia in chronic kidney disease; E66.9 Obesity, unspecified; Z68.39 Body mass index [BMI] 39.0-39.9, adult; E66.01 Morbid (severe) obesity due to excess calories; Z91.81 History of falling; Y83.8 Other surgical procedures as the cause of abnormal reaction of the patient, or of later complication, without mention of misadventure at the time of the procedure; Z91.15 Patient's noncompliance with renal dialysis; E11.9 Type 2 diabetes mellitus without complications; Z87.891 Personal history of nicotine dependence; R00.1 Bradycardia, unspecified
CPT/HCPCS: 36415; 71010; 75774; 75809; 76080; 80048; 80053; 80300; 82550; 82553; 82962; 83540; 83550; 83735; 84100; 84484; 85007; 85025; 85610; 85730; 87081; 93005; 93306; J1815; J2250

== ENCOUNTER 2016-12-25 19:21 | Inpatient (IN) | payer MEDICARE, MEDICAID ==
[~2016-12-25] VITALS: Ht 170.2 cm; Wt 108.9 kg
[~2016-12-25 19:21] MED LIST: AMIODARONE HCL400 M1 ORAL; ASPIR 8181 MG ORAL; BENICAR5 MG ORAL; DOCUSATE SODIU100 MG ORAL; FRAGMIN SQ; JANUVIA25 MG ORAL; KLONOPIN0.5 MG ORAL; LEVOTHYROXINE100 MCG ORAL; LEXAPRO10 MG ORAL; LOSARTAN POTASS50 MG ORAL; VITAMIN D250000 UNI1 ORAL; [UNRECOGNIZED DRUG - OTHER] SQ
[2016-12-25] MEDS ORDERED: HUMALOG100 UNIT/4 SUBQ (19:31)
[2016-12-25] MEDS ORDERED: ASPIRIN81 MG ORAL (19:31)
[2016-12-25] MEDS ORDERED: CATAPRES0.1 MG ORAL (19:31)
[2016-12-25] MEDS ORDERED: LAMICTAL100 MG ORAL (19:31)
[2016-12-25] MEDS ORDERED: RENVELA0.8 GM ORAL (19:31)
[2016-12-25] MEDS ORDERED: GABAPENTIN300 MG ORAL (19:31)
[2016-12-25] MEDS ORDERED: CARVEDILOL12.5 MG ORAL (19:31)
[2016-12-25] MEDS ORDERED: PRAVACHOL40 MG ORAL (19:31)
[2016-12-25 19:40] VITALS: BP 144/87
[2016-12-25] MEDS ORDERED: Morphine Sulfate 4mg/ml Inj IVP ONE (19:45)
[2016-12-25 19:55] LABS: HEMATOCRIT 29.4 % (37.0-47.0); HEMOGLOBIN 9.4 G/DL (12.0-16.0); MEAN CORPUSCULAR VOLUME 98 FL (80-99); PLATELET COUNT 215 K/UL (150-450); RED CELL DISTRIBUTION WIDTH 14.8 % (11.6-14.8); WHITE BLOOD COUNT 8.6 K/UL (4.8-10.8)
--- NOTE | 2016-12-25 20:07 | Emergency Room Report ---
History of Present Illness General Chief Complaint: Chest Pain Source: EMS Present Illness HPI 56-year-old female presents to ED for evaluation. Patient states she's been having chest pain x1 day. Patient went to dialysis today. Patient was given aspirin and nitroglycerin by EMS. Patient notes midsternal chest pressure, 8/10 , nonradiating. Denies shortness of breath. No fevers or chills. Denies cough. No other aggravating relieving factors. Denies any other system symptoms Allergies: Coded Allergies: No Known Allergies (Verified , 08/23/06) Patient History Past Medical History: HTN, psych hx, renal disease, dialysis Past Surgical History: none Pertinent Family History: none Social History: Denies: smoking, alcohol use, drug use Now: No Immunizations: UTD Reviewed Nursing Documentation: PMH: Agreed, PSxH: Agreed Nursing Documentation-PMH Hx Cardiac Problems: No Hx Hypertension: Yes Hx Diabetes: Yes Hx Cancer: Yes - colon cancer Hx Gastrointestinal Problems: Yes - HEP C Hx Dialysis: Yes - M-W-F, ESRD History Of Psychiatric Problem: Yes - DEPRESSION,BIPOLAR Review of Systems All Other Systems: negative except mentioned in HPI Physical Exam Vital Signs Date Time Temp Pulse Resp B/P (MAP) Pulse Ox O2 Delivery O2 Flow Rate FiO2 12/25/16 19:16 100.2 70 12 144/87 100 Nasal Cannula 4.0 Sp02 EP Interpretation: reviewed, normal General Appearance: no apparent distress, alert, GCS 15, non-toxic, obese Head: normocephalic, atraumatic Eyes: bilateral eye normal inspection, bilateral eye PERRL ENT: hearing grossly normal, normal pharynx, no angioedema, normal voice Neck: full range of motion, supple/symm/no masses Respiratory: chest non-tender, lungs clear, normal breath sounds, speaking full sentences Cardiovascular #1: regular rate, rhythm, no edema Cardiovascular #2: 2+ carotid (R), 2+ carotid (L), 2+ radial (R), 2+ radial (L) , 2+ dorsalis pedis (R), 2+ dorsalis pedis (L) Gastrointestinal: normal bowel sounds, non tender, soft, non-distended, no guarding, no rebound Rectal: deferred Genitourinary: normal inspection, no CVA tenderness Musculoskeletal: back normal, gait/station normal, normal range of motion, non- tender Neurologic: alert, oriented x3, responsive, motor strength/tone normal, sensory intact, speech normal Psychiatric: judgement/insight normal, memory normal, mood/affect normal, no suicidal/homicidal ideation Reflexes: 3+ bicep (R), 3+ bicep (L), 3+ tricep (R), 3+ tricep (L), 3+ knee (R) , 3+ knee (L) Skin: normal color, no rash, warm/dry, well hydrated Lymphatic: no adenopathy Medical Decision Making Diagnostic Impression: Primary Impression: ACS (acute coronary syndrome) Additional Impression: ESRD (end stage renal disease) on dialysis ER Course Hospital Course 56-year-old female presents ED complaining of chest pain. s/p dialysis today Differential diagnoses include: WA/unstable angina, contusion, muscle strain, PTX, rib fracture Clinical course Patient placed on stretcher. on cardiac rehabilitation program director. After initial history and physical I ordered labs, EKG, chest x-ray, morphine labs reviewed- no leukocyotiss, hb/hct stable, BUN/Cr elevated, trop 0.005, BNP elevated EKG - NSR, no acute ischemic changes interpreted by me Chest x-ray- cardiomegaly. bilateral effusion given aspirin. Case discussed with Dr. Lundberg and he agreed to accept the patient to his service for further care and support I. I feel this is a highly complex case requiring extensive working including EKG/Rhythm strip, Xray/CT/US, Blood/urine lab work, repeat exams while in ED, and administration of strong opiates/narcotics for pain control, admission to hospital or close patient follow up. Diagnosis - ACS, ESRD on diaylsis admitted to telemetry in serious condition Labs Test 12/25/16 19:30 White Blood Count 8.6 K/UL (4.8-10.8) Red Blood Count 3.00 M/UL (4.20-5.40) Hemoglobin 9.4 G/DL (12.0-16.0) Hematocrit 29.4 % (37.0-47.0) Mean Corpuscular Volume 98 FL (80-99) Mean Corpuscular Hemoglobin 31.3 PG (27.0-31.0) Mean Corpuscular Hemoglobin Concent 32.1 G/DL (32.0-36.0) Red Cell Distribution Width 14.8 % (11.6-14.8) Platelet Count 215 K/UL (150-450) Mean Platelet Volume 7.2 FL (6.5-10.1) Neutrophils (%) (Auto) % (45.0-75.0) Lymphocytes (%) (Auto) % (20.0-45.0) Monocytes (%) (Auto) % (1.0-10.0) Eosinophils (%) (Auto) % (0.0-3.0) Basophils (%) (Auto) % (0.0-2.0) Differential Total Cells Counted 100 Neutrophils % (Manual) 79 % (45-75) Lymphocytes % (Manual) 11 % (20-45) Monocytes % (Manual) 5 % (1-10) Eosinophils % (Manual) 3 % (0-3) Basophils % (Manual) 0 % (0-2) Band Neutrophils 2 % (0-8) Platelet Estimate Adequate Platelet Morphology Normal Hypochromasia 1+ Anisocytosis 1+ Sodium Level 136 MMOL/L (136-145) Potassium Level 3.7 MMOL/L (3.5-5.1) Chloride Level 97 MMOL/L (98-107) Carbon Dioxide Level 21 MMOL/L (21-32) Anion Gap 18 mmol/L (5-15) Blood Urea Nitrogen 71 mg/dL (7-18) Creatinine 7.8 MG/DL (0.55-1.30) Estimat Glomerular Filtration Rate 5.3 mL/min (>60) Glucose Level 100 MG/DL (74-106) Calcium Level 9.3 MG/DL (8.5-10.1) Total Bilirubin 0.9 MG/DL (0.2-1.0) Aspartate Amino Transf (AST/SGOT) 18 U/L (15-37) Alanine Aminotransferase (ALT/SGPT) 19 U/L (12-78) Alkaline Phosphatase 208 U/L (46-116) Total Creatine Kinase 117 U/L (26-308) Creatine Kinase MB 3.1 NG/ML (0.0-3.6) Creatine Kinase MB Relative Index 2.6 Troponin I 0.005 ng/mL (0.000-0.056) Pro-B-Type Natriuretic Peptide 09750 pg/mL (0-125) Total Protein 7.6 G/DL (6.4-8.2) Albumin 2.9 G/DL (3.4-5.0) Globulin 4.7 g/dL Albumin/Globulin Ratio 0.6 (1.0-2.7) EKG Diagnostic Results Rate: normal Rhythm: NSR ST Segments: no acute changes ASA given to the pt in ED: Yes Rhythm Strip Diag. Results EP Interpretation: yes Rhythm: NSR, no PVC's, no ectopy Chest X-Ray Diagnostic Results Chest X-Ray Diagnostic Results : Chest X-Ray Ordered: Yes # of Views/Limited/Complete: 1 View Indication: Chest Pain EP Interpretation: Yes Interpretation: no pneumothorax, other - cardiomegaly. bilateral effusion Impression: Other - effusion. cardiomegaly. Electronically Signed by: Electronically signed by Josh Diaz MD Last Vital Signs Date Time Temp Pulse Resp B/P (MAP) Pulse Ox O2 Delivery O2 Flow Rate FiO2 12/25/16 19:40 61 21 Nasal Cannula 4.0 12/25/16 19:40 100.2 144/87 100 Status: improved Disposition: ADMITTED INPATIENT Condition: Serious Referrals: Sea Lundberg MD (PCP) JOSH DIAZ M.D. Dec 25, 2016 20:07
[2016-12-25 20:18] LABS: ALANINE AMINOTRANSFERASE 19 U/L (12-78); ALBUMIN 2.9 G/DL (3.4-5.0); ALBUMIN/GLOBULIN RATIO 0.6 (1.0-2.7); ALKALINE PHOSPHATASE 208 U/L (46-116); ANION GAP 18 mmol/L (5-15); ASPARTATE AMINO TRANSFERASE 18 U/L (15-37); BILIRUBIN,TOTAL 0.9 MG/DL (0.2-1.0); BLOOD UREA NITROGEN 71 mg/dL (7-18); CALCIUM 9.3 MG/DL (8.5-10.1); CARBON DIOXIDE 21 MMOL/L (21-32); CHLORIDE 97 MMOL/L (98-107); CREATININE 7.8 MG/DL (0.55-1.30); POTASSIUM 3.7 MMOL/L (3.5-5.1); SODIUM 136 MMOL/L (136-145)
[2016-12-25 20:25] LABS: CKMB 3.1 NG/ML (0.0-3.6); CREATINE KINASE 117 U/L (26-308)
[2016-12-25 21:31] VITALS: BP 153/43
[2016-12-25] MEDS ORDERED: Mylanta II UD 30ml ORAL PRN (21:45)
[2016-12-25] MEDS ORDERED: Zolpidem 5mg tab ORAL PRN (21:45)
[2016-12-25] MEDS ORDERED: Miralax 17gm pkt ORAL PRN (21:45)
[2016-12-25] MEDS ORDERED: Albuterol/Ipratropium 3ml neb HHN PRN (21:45)
[2016-12-25 22:24] VITALS: BP 147/49
[2016-12-25] MEDS ORDERED: Nitroglycerin Subl 0.4mg tab SL PRN (22:30)
[2016-12-26] MEDS: clonazePAM 0.5mg tab ORAL SCH ×4 (00:01→17:11)
[2016-12-26] MEDS: NovoLOG Insulin Flexpen SUBQ SCH ×4 (06:30→21:00)
[2016-12-26] MEDS: sitaGLIPtin 25mg tab ORAL SCH (06:36)
[2016-12-26 08:09] LABS: HEMATOCRIT 24.3 % (37.0-47.0); HEMOGLOBIN 7.7 G/DL (12.0-16.0); MEAN CORPUSCULAR VOLUME 97 FL (80-99); PLATELET COUNT 173 K/UL (150-450); RED BLOOD COUNT 2.51 M/UL (4.20-5.40); RED CELL DISTRIBUTION WIDTH 14.9 % (11.6-14.8); WHITE BLOOD COUNT 9.4 K/UL (4.8-10.8)
[2016-12-26 08:22] LABS: ALANINE AMINOTRANSFERASE 16 U/L (12-78); ALBUMIN 2.3 G/DL (3.4-5.0); ALBUMIN/GLOBULIN RATIO 0.5 (1.0-2.7); ALKALINE PHOSPHATASE 162 U/L (46-116); ANION GAP 14 mmol/L (5-15); ASPARTATE AMINO TRANSFERASE 14 U/L (15-37); BILIRUBIN,TOTAL 0.5 MG/DL (0.2-1.0); BLOOD UREA NITROGEN 70 mg/dL (7-18); CALCIUM 8.5 MG/DL (8.5-10.1); CARBON DIOXIDE 23 MMOL/L (21-32); CHLORIDE 102 MMOL/L (98-107); CREATININE 8.5 MG/DL (0.55-1.30); POTASSIUM 3.7 MMOL/L (3.5-5.1); SODIUM 138 MMOL/L (136-145)
[2016-12-26 08:25] LABS: CHOLESTEROL 134 MG/DL (< 200); HDL CHOLESTEROL 17 MG/DL (40-60); TRIGLYCERIDES 213 MG/DL (0-200)
[2016-12-26] MEDS ORDERED: Carvedilol 12.5mg tab ORAL SCH (09:00)
--- NOTE | 2016-12-26 09:26 | Consultation ---
Consult Note Consult Note I was asked to evaluate the patient for dialysis management Patient has ESRD on HD via left chest permacath 56-year-old female presents to ED for evaluation. Patient states she's been having chest pain x1 day. Patient went to dialysis today. Patient was given aspirin and nitroglycerin by EMS. Patient notes midsternal chest pressure, 8/10 , nonradiating. Denies shortness of breath. No fevers or chills. Denies cough. No other aggravating relieving factors. Denies any other system symptoms Past Medical History: HTN, psych hx, renal disease, dialysis Hx Hypertension: Yes Hx Diabetes: Yes Hx Cancer: Yes - colon cancer Hx Gastrointestinal Problems: Yes - HEP C Hx Dialysis: Yes - M-W-F, ESRD History Of Psychiatric Problem: Yes - DEPRESSION,BIPOLAR Patient interviewed and examined- data reviewed admitted with the initial diagnosis of ACS Assessment/Plan Status: - End-stage renal disease, on hemodialysis. - Anemia of chronic kidney disease. - Hypertension. - Diabetes type 2. - Morbid obesity. - H/O Colon Cancer - H/O Hep C - H/O Depression and Bipolar disease Plan : HD in am Adjust BP medications stop beta blockers- Bradycardia Per orders ANDREAS BARRERA Dec 26, 2016 09:26
[2016-12-26] MEDS: Aspirin Baby 81mg ORAL SCH (10:06)
[2016-12-26] MEDS: Heparin 5000 units/ml inj SUBQ SCH ×2 (10:07→21:00)
--- NOTE | 2016-12-26 10:52 | Diagnostic Imaging Report ---
Indication: Chest pain pain Comparison: 04/27/16 A single view chest radiograph was obtained. Findings: Heart is enlarged. There is interstitial edema. There is a left permacath which is in good position. Bones are unremarkable. Impression: Interstitial edema
--- NOTE | 2016-12-26 11:08 | Consultation ---
History of Present Illness General Date patient seen: Dec 26, 2016 Chief Complaint: Chest Pain Referring physician: Dr. Cotter Reason for Consultation: chest pain Present Illness HPI 56-year-old female with hx of ESRF on HD for around one year, Hep C, HTN, presented to ED for evaluation of chest pain x1 day. Patient went to dialysis today and was given aspirin and nitroglycerin by EMS. Patient notes midsternal chest pressure, 8/10, nonradiating. Denies shortness of breath. No fevers or chills. Denies cough. No other aggravating relieving factors. Pt is admitted to telemetry for further evaluation. Allergies: Coded Allergies: No Known Allergies (Verified , 08/23/06) Medication History Scheduled Aspirin* (Aspirin*), 81 MG ORAL DAILY, (Reported) Carvedilol* (Carvedilol*), 12.5 MG ORAL EVERY 12 HOURS, (Reported) Clonazepam* (Klonopin*), 0.5 MG ORAL Q6H, (Reported) Clonidine Hcl* (Catapres*), 0.1 MG ORAL EVERY 6 HOURS, (Reported) Escitalopram Oxalate* (Lexapro*), 10 MG ORAL DAILY, (Reported) Gabapentin* (Gabapentin*), 300 MG ORAL BEDTIME, (Reported) Lamotrigine* (Lamictal*), 100 MG ORAL BID, (Reported) Olmesartan Medoxomil (Benicar), 5 MG ORAL DAILY, (Reported) Pravastatin Sodium (Pravachol), 40 MG ORAL BEDTIME, (Reported) Sevelamer Carbonate* (Renvela*), 4 TAB ORAL THREE TIMES A DAY, (Reported) Sitagliptin* (Januvia*), 25 MG ORAL DAILY, (Reported) Miscellaneous Medications Insulin Lispro (Humalog), 0 SUBQ, (Reported) Patient History Healthcare decision maker Resuscitation status Full Code Advanced Directive on File Past Medical/Surgical History Past Medical/Surgical History: (1) HTN (hypertension) (2) ESRD (end stage renal disease) on dialysis Review of Systems Constitutional: Reports: chills Eye: Reports: no symptoms ENT: Reports: no symptoms Respiratory: Reports: no symptoms Cardiovascular: Reports: no symptoms Gastrointestinal: Reports: no symptoms Genitourinary: Reports: no symptoms Skin: Reports: no symptoms Psychiatric: Reports: no symptoms Physical Exam General Appearance: WD/WN, lethargic Lines, tubes and drains: peripheral, central line HEENT: normocephalic, atraumatic Neck: non-tender, normal alignment Respiratory/Chest: chest wall non-tender, lungs clear, normal breath sounds Abdomen: normal bowel sounds, non tender Last 24 Hour Vital Signs Date Time Temp Pulse Resp B/P (MAP) Pulse Ox O2 Delivery O2 Flow Rate FiO2 12/26/16 10:06 49 153/68 12/26/16 08:00 47 12/26/16 06:36 153/68 12/26/16 04:33 49 12/26/16 04:00 56 12/26/16 01:00 56 12/26/16 00:02 144/64 12/25/16 23:23 98.6 12/25/16 22:27 101.1 61 21 147/49 100 Nasal Cannula 2.0 12/25/16 22:24 101.1 61 21 147/49 100 Nasal Cannula 2.0 12/25/16 21:31 100.2 63 21 153/43 100 Nasal Cannula 2.0 12/25/16 20:24 100.2 12/25/16 19:40 61 21 Nasal Cannula 4.0 12/25/16 19:40 100.2 68 21 144/87 100 Nasal Cannula 4.0 12/25/16 19:16 100.2 70 12 144/87 100 Nasal Cannula 4.0 Laboratory Tests Test 12/25/16 19:30 12/26/16 06:45 White Blood Count 8.6 K/UL (4.8-10.8) 9.4 K/UL (4.8-10.8) Red Blood Count 3.00 M/UL (4.20-5.40) L 2.51 M/UL (4.20-5.40) L Hemoglobin 9.4 G/DL (12.0-16.0) L 7.7 G/DL (12.0-16.0) L Hematocrit 29.4 % (37.0-47.0) L 24.3 % (37.0-47.0) L Mean Corpuscular Volume 98 FL (80-99) 97 FL (80-99) Mean Corpuscular Hemoglobin 31.3 PG (27.0-31.0) H 30.8 PG (27.0-31.0) Mean Corpuscular Hemoglobin Concent 32.1 G/DL (32.0-36.0) 31.8 G/DL (32.0-36.0) L Red Cell Distribution Width 14.8 % (11.6-14.8) 14.9 % (11.6-14.8) H Platelet Count 215 K/UL (150-450) 173 K/UL (150-450) Mean Platelet Volume 7.2 FL (6.5-10.1) 7.6 FL (6.5-10.1) Neutrophils (%) (Auto) % (45.0-75.0) % (45.0-75.0) Lymphocytes (%) (Auto) % (20.0-45.0) % (20.0-45.0) Monocytes (%) (Auto) % (1.0-10.0) % (1.0-10.0) Eosinophils (%) (Auto) % (0.0-3.0) % (0.0-3.0) Basophils (%) (Auto) % (0.0-2.0) % (0.0-2.0) Differential Total Cells Counted 100 100 Neutrophils % (Manual) 79 % (45-75) H 66 % (45-75) Lymphocytes % (Manual) 11 % (20-45) L 19 % (20-45) L Monocytes % (Manual) 5 % (1-10) 10 % (1-10) Eosinophils % (Manual) 3 % (0-3) 4 % (0-3) H Basophils % (Manual) 0 % (0-2) 0 % (0-2) Band Neutrophils 2 % (0-8) 1 % (0-8) Platelet Estimate Adequate Adequate Platelet Morphology Normal Normal Hypochromasia 1+ 1+ Anisocytosis 1+ 1+ Sodium Level 136 MMOL/L (136-145) 138 MMOL/L (136-145) Potassium Level 3.7 MMOL/L (3.5-5.1) 3.7 MMOL/L (3.5-5.1) Chloride Level 97 MMOL/L (98-107) L 102 MMOL/L (98-107) Carbon Dioxide Level 21 MMOL/L (21-32) 23 MMOL/L (21-32) Anion Gap 18 mmol/L (5-15) H 14 mmol/L (5-15) Blood Urea Nitrogen 71 mg/dL (7-18) H 70 mg/dL (7-18) H Creatinine 7.8 MG/DL (0.55-1.30) H 8.5 MG/DL (0.55-1.30) H Estimat Glomerular Filtration Rate 5.3 mL/min (>60) 4.8 mL/min (>60) Glucose Level 100 MG/DL (74-106) 85 MG/DL (74-106) Calcium Level 9.3 MG/DL (8.5-10.1) 8.5 MG/DL (8.5-10.1) Total Bilirubin 0.9 MG/DL (0.2-1.0) 0.5 MG/DL (0.2-1.0) Aspartate Amino Transf (AST/SGOT) 18 U/L (15-37) 14 U/L (15-37) L Alanine Aminotransferase (ALT/SGPT) 19 U/L (12-78) 16 U/L (12-78) Alkaline Phosphatase 208 U/L (46-116) H 162 U/L (46-116) H Total Creatine Kinase 117 U/L (26-308) Creatine Kinase MB 3.1 NG/ML (0.0-3.6) Creatine Kinase MB Relative Index 2.6 Troponin I 0.005 ng/mL (0.000-0.056) 0.000 ng/mL (0.000-0.056) Pro-B-Type Natriuretic Peptide 93064 pg/mL (0-125) H Total Protein 7.6 G/DL (6.4-8.2) 6.8 G/DL (6.4-8.2) Albumin 2.9 G/DL (3.4-5.0) L 2.3 G/DL (3.4-5.0) L Globulin 4.7 g/dL 4.5 g/dL Albumin/Globulin Ratio 0.6 (1.0-2.7) L 0.5 (1.0-2.7) L Macrocytosis 1+ Hemoglobin A1c 5.0 % (4.3-6.0) Triglycerides Level 213 MG/DL (0-200) H Cholesterol Level 134 MG/DL (< 200) LDL Cholesterol 75 mg/dL (<100) HDL Cholesterol 17 MG/DL (40-60) L Cholesterol/HDL Ratio 7.9 (3.3-4.4) H Thyroid Stimulating Hormone (TSH) 1.942 uiU/mL (0.360-3.740) Height (Feet): 5 Height (Inches): 7.00 Weight (Pounds): 240 Medications Current Medications Medications (Trade) Dose Ordered Sig/Gabriele Route PRN Reason Start Time Stop Time Status Last Admin Dose Admin Acetaminophen (Tylenol) 650 mg Q4H PRN ORAL fever 12/25/16 21:45 01/24/17 21:44 12/25/16 22:24 Albuterol/ Ipratropium (Albuterol/ Ipratropium) 3 ml Q6H PRN HHN dyspnea 12/25/16 21:45 12/30/16 21:44 Aspirin (ASA) 81 mg DAILY ORAL 12/26/16 09:00 01/25/17 08:59 12/26/16 10:06 Clonazepam (KlonoPIN) 0.5 mg Q6HR ORAL 12/26/16 00:00 01/02/17 00:00 12/26/16 06:36 Clonidine HCl (Catapres) 0.1 mg Q4H PRN ORAL SBP > 160mmHg 12/26/16 09:45 01/25/17 09:44 Dextrose (Dextrose 50%) STAT PRN IV Hypoglycemia 12/25/16 21:45 01/24/17 21:44 Escitalopram Oxalate (Lexapro) 10 mg DAILY ORAL 12/26/16 09:00 01/25/17 08:59 12/26/16 10:04 Gabapentin (Neurontin) 300 mg BEDTIME ORAL 12/25/16 22:00 01/24/17 21:59 12/25/16 23:06 Heparin Sodium (Porcine) (Heparin 5000 units/ml) 5,000 units EVERY 12 HOURS SUBQ 12/26/16 09:00 01/25/17 08:59 12/26/16 10:07 Insulin Aspart (NovoLOG) BEFORE MEALS AND HS SUBQ 12/26/16 06:30 01/25/17 06:29 Lamotrigine (LaMICtal) 100 mg Q12HR ORAL 12/25/16 22:00 01/24/17 21:59 11/7/17 10:04 Lisinopril (Prinivil) 20 mg BID ORAL 12/26/16 18:00 01/25/17 17:59 Nifedipine (Procardia XL) 60 mg DAILY ORAL 12/27/16 09:00 01/26/17 08:59 Nitroglycerin (Ntg) 0.4 mg Q5M PRN SL Prn Chest Pain 12/25/16 22:30 01/24/17 22:29 Ondansetron HCl (Zofran) 4 mg Q6H PRN IVP Nausea & Vomiting 12/25/16 21:45 01/24/17 21:44 Polyethylene Glycol (Miralax) 17 gm HSPRN PRN ORAL Constipation 12/25/16 21:45 01/24/17 21:44 Pravastatin Sodium (Pravachol) 40 mg BEDTIME ORAL 12/25/16 22:00 01/24/17 21:59 12/25/16 23:06 Sitagliptin Phosphate (Januvia) 25 mg ACBREAKFAST ORAL 12/26/16 06:30 01/25/17 06:29 12/26/16 06:36 Zolpidem Tartrate (Ambien) 5 mg HSPRN PRN ORAL Insomnia 12/25/16 21:45 01/01/17 21:44 Assessment/Plan Problem List: (1) ACS (acute coronary syndrome) ICD Codes: I24.9 - Acute ischemic heart disease, unspecified SNOMED: 165145369 (2) Costochondritis ICD Codes: M94.0 - Chondrocostal junction syndrome [Tietze] SNOMED: 70904836 (3) GERD (gastroesophageal reflux disease) ICD Codes: K21.9 - Gastro-esophageal reflux disease without esophagitis SNOMED: 440679531 (4) ESRD (end stage renal disease) on dialysis ICD Codes: N18.6 - End stage renal disease; Z99.2 - Dependence on renal dialysis SNOMED: 363776174 (5) HTN (hypertension) ICD Codes: I10 - Essential (primary) hypertension SNOMED: 53548996 Assessment/Plan serial EKG, troponin Cardiology evaluation renal to see for HD possibly stress test after 3 negative troponin LEO MCGEE Dec 26, 2016 11:08
[2016-12-26] MEDS ORDERED: Bisacodyl EC 5mg tab ORAL PRN (11:15)
--- NOTE | 2016-12-26 15:12 | Cardiology Progress Note ---
Assessment/Plan Assessment/Plan atypicla cp dm jhtn bipolar esrd on HD perfusion imaging [id number] Objective Last 24 Hour Vital Signs Date Time Temp Pulse Resp B/P (MAP) Pulse Ox O2 Delivery O2 Flow Rate FiO2 12/26/16 12:00 44 12/26/16 10:06 49 153/68 12/26/16 08:00 47 12/26/16 06:36 153/68 12/26/16 04:33 49 12/26/16 04:00 56 12/26/16 01:00 56 12/26/16 00:02 144/64 12/25/16 23:23 98.6 12/25/16 22:27 101.1 61 21 147/49 100 Nasal Cannula 2.0 12/25/16 22:24 101.1 61 21 147/49 100 Nasal Cannula 2.0 12/25/16 21:31 100.2 63 21 153/43 100 Nasal Cannula 2.0 12/25/16 20:24 100.2 12/25/16 19:40 61 21 Nasal Cannula 4.0 12/25/16 19:40 100.2 68 21 144/87 100 Nasal Cannula 4.0 12/25/16 19:16 100.2 70 12 144/87 100 Nasal Cannula 4.0 Laboratory Tests Test 12/25/16 19:30 12/26/16 06:45 White Blood Count 8.6 K/UL (4.8-10.8) 9.4 K/UL (4.8-10.8) Red Blood Count 3.00 M/UL (4.20-5.40) L 2.51 M/UL (4.20-5.40) L Hemoglobin 9.4 G/DL (12.0-16.0) L 7.7 G/DL (12.0-16.0) L Hematocrit 29.4 % (37.0-47.0) L 24.3 % (37.0-47.0) L Mean Corpuscular Volume 98 FL (80-99) 97 FL (80-99) Mean Corpuscular Hemoglobin 31.3 PG (27.0-31.0) H 30.8 PG (27.0-31.0) Mean Corpuscular Hemoglobin Concent 32.1 G/DL (32.0-36.0) 31.8 G/DL (32.0-36.0) L Red Cell Distribution Width 14.8 % (11.6-14.8) 14.9 % (11.6-14.8) H Platelet Count 215 K/UL (150-450) 173 K/UL (150-450) Mean Platelet Volume 7.2 FL (6.5-10.1) 7.6 FL (6.5-10.1) Neutrophils (%) (Auto) % (45.0-75.0) % (45.0-75.0) Lymphocytes (%) (Auto) % (20.0-45.0) % (20.0-45.0) Monocytes (%) (Auto) % (1.0-10.0) % (1.0-10.0) Eosinophils (%) (Auto) % (0.0-3.0) % (0.0-3.0) Basophils (%) (Auto) % (0.0-2.0) % (0.0-2.0) Differential Total Cells Counted 100 100 Neutrophils % (Manual) 79 % (45-75) H 66 % (45-75) Lymphocytes % (Manual) 11 % (20-45) L 19 % (20-45) L Monocytes % (Manual) 5 % (1-10) 10 % (1-10) Eosinophils % (Manual) 3 % (0-3) 4 % (0-3) H Basophils % (Manual) 0 % (0-2) 0 % (0-2) Band Neutrophils 2 % (0-8) 1 % (0-8) Platelet Estimate Adequate Adequate Platelet Morphology Normal Normal Hypochromasia 1+ 1+ Anisocytosis 1+ 1+ Sodium Level 136 MMOL/L (136-145) 138 MMOL/L (136-145) Potassium Level 3.7 MMOL/L (3.5-5.1) 3.7 MMOL/L (3.5-5.1) Chloride Level 97 MMOL/L (98-107) L 102 MMOL/L (98-107) Carbon Dioxide Level 21 MMOL/L (21-32) 23 MMOL/L (21-32) Anion Gap 18 mmol/L (5-15) H 14 mmol/L (5-15) Blood Urea Nitrogen 71 mg/dL (7-18) H 70 mg/dL (7-18) H Creatinine 7.8 MG/DL (0.55-1.30) H 8.5 MG/DL (0.55-1.30) H Estimat Glomerular Filtration Rate 5.3 mL/min (>60) 4.8 mL/min (>60) Glucose Level 100 MG/DL (74-106) 85 MG/DL (74-106) Calcium Level 9.3 MG/DL (8.5-10.1) 8.5 MG/DL (8.5-10.1) Total Bilirubin 0.9 MG/DL (0.2-1.0) 0.5 MG/DL (0.2-1.0) Aspartate Amino Transf (AST/SGOT) 18 U/L (15-37) 14 U/L (15-37) L Alanine Aminotransferase (ALT/SGPT) 19 U/L (12-78) 16 U/L (12-78) Alkaline Phosphatase 208 U/L (46-116) H 162 U/L (46-116) H Total Creatine Kinase 117 U/L (26-308) Creatine Kinase MB 3.1 NG/ML (0.0-3.6) Creatine Kinase MB Relative Index 2.6 Troponin I 0.005 ng/mL (0.000-0.056) 0.000 ng/mL (0.000-0.056) Pro-B-Type Natriuretic Peptide 16130 pg/mL (0-125) H Total Protein 7.6 G/DL (6.4-8.2) 6.8 G/DL (6.4-8.2) Albumin 2.9 G/DL (3.4-5.0) L 2.3 G/DL (3.4-5.0) L Globulin 4.7 g/dL 4.5 g/dL Albumin/Globulin Ratio 0.6 (1.0-2.7) L 0.5 (1.0-2.7) L Macrocytosis 1+ Hemoglobin A1c 5.0 % (4.3-6.0) Triglycerides Level 213 MG/DL (0-200) H Cholesterol Level 134 MG/DL (< 200) LDL Cholesterol 75 mg/dL (<100) HDL Cholesterol 17 MG/DL (40-60) L Cholesterol/HDL Ratio 7.9 (3.3-4.4) H Thyroid Stimulating Hormone (TSH) 1.942 uiU/mL (0.360-3.740) HEIDI PICKETT Dec 26, 2016 15:12
--- NOTE | 2016-12-26 16:31 | Cardiology Report ---
APPROVED REPORT EXAM: Two-dimensional and M-mode echocardiogram with Doppler and color Doppler. INDICATION Acute Coronary Syndrome M-Mode DIMENSIONS IVSd1.5 (0.7-1.1cm)Left Atrium (MM)4.8 (1.6-4.0cm) LVDd4.6 (3.5-5.6cm)Aortic Root3.0 (2.0-3.7cm) PWd2.0 (0.7-1.1cm)Aortic Cusp Exc.2.0 (1.5-2.0cm) LVDs2.6 (2.5-4.0cm) PWs2.7 cm scan area. Normal left ventricular chamber size, systolic function and wall motion to extent visualized. Left ventricular ejection fraction estimated to be 60 %. Study quality precludes accurate assessment of regional wall motion. Mild left ventricular hypertrophy. Possible posterior pericardial effusion. Left atrium mildly dilated Right cardiac chamber sizes are within normal limits. Mild focal aortic valve sclerosis with adequate cusp excursion. Mildl thickened mitral valve leaflets with normal excursion. Mild mitral annulus and aortic root calcification. Pulmonic valve not well visualized. Normal tricuspid valve structure. IVC at normal size with physiologic collapse. A color flow and spectral Doppler study was performed and revealed: Mild aortic regurgitation. Moderate mitral regurgitation. Mitral inflow indicates normal left ventricular diastolic function. Mild tricuspid regurgitation. Tricuspid systolic velocities suggests peak right ventricular systolic pressure of 43 mmHg, consistent with moderate pulmonary hypertension. Mild pulmonic regurgitation present.
--- NOTE | 2016-12-26 16:37 | Cardiology Report ---
APPROVED REPORT EKG Measurement Heart [id number] [place] 130P61 [id number] Normal sinus rhythm Possible Left atrial enlargement Cannot rule out Anterior infarct, age undetermined Abnormal ECG
--- NOTE | 2016-12-26 16:37 | Cardiology Report ---
APPROVED REPORT EKG Measurement Heart [id number] 130P61 [id number] Normal sinus rhythm Possible Left atrial enlargement Cannot rule out Anterior infarct, age undetermined Abnormal ECG
--- NOTE | 2016-12-26 16:37 | Cardiology Report ---
APPROVED REPORT EKG Measurement Heart [id number] 130P61 [id number] Normal sinus rhythm Possible Left atrial enlargement Cannot rule out Anterior infarct, age undetermined Abnormal ECG
[2016-12-26] MEDS ORDERED: Lexiscan 0.4mg/5ml syringe IV ONE (17:00)
[2016-12-26] MEDS: Lisinopril 20mg tab ORAL SCH (17:26)
--- NOTE | 2016-12-26 18:45 | Consultation ---
DATE OF CONSULTATION: 12/26/2016 CARDIOLOGY CONSULTATION CONSULTING PHYSICIAN: Claus Ann M.D. REFERRING PHYSICIAN: Demetri Vallecillo M.D. REASON FOR REFERRAL: Chest pain. HISTORY OF PRESENT ILLNESS: This is a middle-aged female with multiple medical problems. The patient just apparently had a recent hospitalization at [facility] and subsequently transferred somewhere and was admitted here because of not feeling good, dizzy, vertiginous, nauseated, and not able to walk or talk, do much because of the symptoms, brought to the emergency room at [facility] and has been admitted to the hospital. She states that she is having sharp shooting chest pain in the center of her chest for several days now, although she is not experiencing any more that was present constantly for the past few days. She is really not active. She had done some outpatient therapy. No PND. Uses two pillows. She does have dizziness on standing. No heart pounding or palpitations. PAST MEDICAL HISTORY: Positive for end-stage renal disease on hemodialysis , anemia of chronic kidney disease, secondary to hyperparathyroidism, hyperphosphatemia, hypertension, nonadherence to treatments, history of delirium, bipolar disorder, diabetes mellitus, systemic hypertension, hepatitis C, some kind renal anomaly, osteoarthritis, pericardial effusion, tamponade, previously atrial flutter, congestive heart failure, essential hypertension, nephritic syndrome, confusion. ALLERGIES: She is not allergic to any medications. SOCIAL HISTORY: She does smoke. Does not use any alcohol or drugs. REVIEW OF SYSTEMS: GASTROINTESTINAL: She has had constipation and nausea. No bloody or black stool. GENITOURINARY: She denies any discomfort on urination. PULMONARY: Occasional coughing. Nonsignificant. CONSTITUTIONAL: Negative. NEUROLOGIC: Neuropathy symptoms. PHYSICAL EXAMINATION: GENERAL: Shows an obese female, in no respiratory distress. NECK: Supple. No jugular venous distention. No abdominojugular reflux noted. LUNGS: Clear to auscultation and percussion. CARDIAC: S1 is normal. S2 is normal. Regular rate and rhythm. No heaves, thrills, gallops, or rubs are noted. ABDOMEN: Abdomen is obese. Positive bowel sounds. Nontender. EXTREMITIES: There is 1 to 2+ edema of the lower extremities. NEUROLOGIC: She is awake, alert, and responsive. LABORATORY AND DIAGNOSTIC DATA: White count is 9.4, hemoglobin 7.7, platelet count of 173, 66 polys, 19 lymphs, 10 eosinophils, and 4 basophils. Sodium is 138, potassium 3.7, chloride 102, bicarbonate 23, BUN 70, creatinine 8.5, and glucose of 85. AST of 14, ALT of 16, alkaline phosphatase 162. Troponin on two separate occasions 0.05 and 0.00. ProBNP of 33,074. Triglycerides of 213, total cholesterol of 134 TSH of 1.94. Imaging, a chest x-ray shows mild interstitial edema. EKG shows normal sinus rhythm, normal QRS axis, no ST or T wave abnormalities, whatsoever. ASSESSMENT AND PLAN: 1. Atypical chest pain, no evidence of myonecrosis, and no EKG changes. 2. End-stage renal disease, on hemodialysis. 3. Nonadherence to medical recommendations. 4. Diabetes mellitus. 5. Hypertension. Dr. Vallecillo, this patient was seen in cardiac consultation. The patient apparently per her own description has been having some chest pains constantly for few days. She has known evidence myonecrosis and no electrocardiographic abnormalities making coronary artery disease less than likely issue as a cause of this pain. She does have end-stage renal disease on hemodialysis. She should be continued on aspirin and statins for the time being. She is on lisinopril as well as nifedipine XL for her blood pressure control if needed. Beta-blockers can be administered at least on the low-dose basis in the future. Her telemetry data shows some episodes of sinus bradycardia; therefore I am holding off on giving her beta-blockers at this time. I will follow the patient along with you. Also, I will order an echocardiogram for evaluation her systolic function. Her last echocardiogram back in April was normal at that time. An repeat EKG will be ordered. We will consider perfusion imaging in light of her poor historian status as well as bipolar disorder and multiple risk factors for coronary artery disease. Claus Ann M.D. DR: Maninder JOB#: [id number] CC:
--- NOTE | 2016-12-26 18:55 | History & Physical ---
History and Physical History & Physicial Dictated for Int Med-Dr Lundberg no. [id number]. MARIA T MONTEIRO Dec 26, 2016 18:55
--- NOTE | 2016-12-26 18:55 | History & Physical ---
History and Physical History & Physicial Dictated for Int Med-Dr Lundberg no. [id number]. MARIA T MONTEIRO Dec 26, 2016 18:55
--- NOTE | 2016-12-26 18:55 | History & Physical ---
History and Physical History & Physicial Dictated for Int Med-Dr Lundberg no. [id number]. MARIA T MONTEIRO Dec 26, 2016 18:55
--- NOTE | 2016-12-26 20:45 | History and Physical Report ---
DATE OF ADMISSION: 12/25/2016 CHIEF COMPLAINT: The patient is a 56-year-old white female, who presents with complaint of chest pain. HISTORY OF PRESENT ILLNESS: The patient was admitted to [facility] in 04/2016. Please see history and physical and discharge summary dictated at that time. The patient was admitted to [facility] on 12/18/2016. The patient was discharged on 12/22/2016. The patient was admitted at that time for vertigo. The patient was discharged home. The patient presented to [facility] complaining of chest pain. Chest pain is substernal. There is no radiation to the jaw or to the arm. The patient presented to [facility]. The patient was admitted for chest pain to rule out acute coronary syndrome. REVIEW OF SYSTEMS: CONSTITUTIONAL: The patient denies weight loss or weight gain. The patient denies fevers or chills. HEENT: The patient denies ear or throat pain. The patient denies headache. CHEST: The patient denies wheeze or shortness of breath. CARDIOVASCULAR: The patient complains of chest pain as above. The patient denies palpitations. ABDOMINAL: The patient denies nausea, vomiting, diarrhea, or constipation. GENITOURINARY: The patient denies dysuria or increased frequency of urination. NEUROMUSCULAR: The patient denies seizures or generalized weakness. PAST MEDICAL HISTORY: Significant for: 1. Bipolar depression. 2. End-stage renal disease, on hemodialysis at [facility] every Sunday, Sunday, and Sunday. The patient's last dialysis was 12/25/2016. 3. Hypertension. 4. Diabetes type 2. PAST SURGICAL HISTORY: Significant for left upper extremity AV graft for dialysis. CURRENT MEDICATIONS: 1. Klonopin 1 mg one tablet p.o. daily. 2. Epogen 5000 units subcutaneously three times a week. 3. Gabapentin 300 mg one tablet p.o. nightly. 4. Humalog sliding scale. 5. Lamictal 100 mg one tablet p.o. twice daily. 6. Pravastatin 40 mg one tablet p.o. nightly. 7. Renvela 800 mg 4 tablets p.o. 3 times daily. 8. 100 mg p.o. 4 times a week. 9. Aspirin 81 mg one tablet p.o. daily. 10. Coreg 12.5 mg one tablet p.o. twice daily. 11. Clonidine 0.1 mg p.o. q.6 hours p.r.n. ALLERGIES: No known drug allergies. SOCIAL HISTORY: The patient is a . The patient lives alone. The patient admits to tobacco use, one pack per day. The patient denies alcohol use. PHYSICAL EXAMINATION: VITAL SIGNS: Temperature 98.6, respirations 20, pulse 56, and blood pressure 144/64. GENERAL: The patient is a well-developed, well-nourished, obese white female, in no apparent distress. HEENT: Eyes, pupils are equal and responsive to light and accommodation. Extraocular movements are intact. NECK: Supple. No lymphadenopathy. CHEST: Lungs are clear to auscultation bilaterally without wheezes or rales. CARDIOVASCULAR: Regular rate. S1, S2 normal without murmurs, rubs, or gallops. ABDOMEN: Soft, nontender, and nondistended. Positive bowel sounds. No evidence of hepatosplenomegaly. Currently, no rebound or guarding noted. EXTREMITIES: Negative for clubbing, cyanosis, or edema. RECTAL: Refused. GENITAL: Refused. NEUROLOGIC: Cranial nerves II through XII are grossly intact without focal deficits. Motor strength is 5/5 bilaterally. Deep tendon reflexes are 2+, plantar. LABORATORY STUDIES: WBC 8.6, hemoglobin 9.4, hematocrit 29.4, and platelets 215,000. Sodium 136, potassium 3.7, chloride 97, CO2 21, BUN 71, creatinine 7.8, and glucose 100. ASSESSMENT: This is a 56-year-old white female with: 1. Chest pain. 2. Congestive heart failure. 3. End-stage renal disease, on hemodialysis. 4. Hypertension. 5. Diabetes type 2. 6. Bipolar depression. TREATMENT: 1. Chest pain. Cardiology consultation has been obtained with Dr. Claus Ann. The patient is scheduled for cardiac stress test on 12/27/2016. We will follow recommendations of Dr. Ann. 2. Congestive heart failure. This may be secondary to volume overload secondary to renal failure. 3. End-stage renal disease. Nephrology consultation has been obtained with Dr. Eamon Solis. The patient will require dialysis on 12/27/2016. 4. Hypertension. Continue clonidine and Coreg as above. 5. Diabetes type 2. The patient has been placed on NovoLog sliding scale. 6. Bipolar depression. Continue Lamictal as above. 7. Hypercholesterolemia. Continue Pravachol as above. Sukhi Cotter M.D. DR: Karlee JOB#: [id number] CC:
[2016-12-27] VITALS: BP 108/57
[2016-12-27 04:00] VITALS: BP 120/59
[2016-12-27] MEDS: clonazePAM 0.5mg tab ORAL SCH ×3 (06:00→12:26)
[2016-12-27] MEDS: NovoLOG Insulin Flexpen SUBQ SCH ×2 (06:22→11:30)
[2016-12-27] MEDS: sitaGLIPtin 25mg tab ORAL SCH (06:30)
[2016-12-27 07:49] VITALS: BP 139/53
[2016-12-27] MEDS: Heparin 5000 units/ml inj SUBQ SCH (09:00)
[2016-12-27] MEDS ORDERED: Dyna-Hex 2% Top Sol 2oz TOPIC SCH (09:00)
[2016-12-27] MEDS: Aspirin Baby 81mg ORAL SCH (09:00)
[2016-12-27] MEDS: Lisinopril 20mg tab ORAL SCH (09:50)
--- NOTE | 2016-12-27 13:50 | Internal Med Progress Note ---
Subjective Date of Service: Dec 27, 2016 Physician Name Maria T Monteiro Attending Physician Sea Lundberg MD Current Medications Medications (Trade) Dose Ordered Sig/Gabriele Route PRN Reason Start Time Stop Time Status Last Admin Dose Admin Acetaminophen (Tylenol) 650 mg Q4H PRN ORAL fever 12/25/16 21:45 01/24/17 21:44 12/25/16 22:24 Albuterol/ Ipratropium (Albuterol/ Ipratropium) 3 ml Q6H PRN HHN dyspnea 12/25/16 21:45 12/30/16 21:44 Aspirin (ASA) 81 mg DAILY ORAL 12/26/16 09:00 01/25/17 08:59 12/27/16 09:00 Bisacodyl (Dulcolax) 5 mg DAILYPRN PRN ORAL Constipation 12/26/16 11:15 01/25/17 11:14 Chlorhexidine Gluconate (Cassia-Hex 2%) 1 applic DAILY TOPIC 12/27/16 09:00 01/26/17 08:59 12/27/16 09:00 Clonazepam (KlonoPIN) 0.5 mg Q6HR ORAL 12/26/16 00:00 01/02/17 00:00 12/27/16 12:26 Clonidine HCl (Catapres) 0.1 mg Q4H PRN ORAL SBP > 160mmHg 12/26/16 09:45 01/25/17 09:44 Dextrose (Dextrose 50%) STAT PRN IV Hypoglycemia 12/25/16 21:45 01/24/17 21:44 Escitalopram Oxalate (Lexapro) 10 mg DAILY ORAL 12/26/16 09:00 01/25/17 08:59 12/27/16 09:00 Gabapentin (Neurontin) 300 mg BEDTIME ORAL 12/25/16 22:00 01/24/17 21:59 12/26/16 22:01 Heparin Sodium (Porcine) (Heparin 5000 units/ml) 5,000 units EVERY 12 HOURS SUBQ 12/26/16 09:00 01/25/17 08:59 12/27/16 09:00 Insulin Aspart (NovoLOG) BEFORE MEALS AND HS SUBQ 12/26/16 06:30 01/25/17 06:29 12/27/16 11:30 Lamotrigine (LaMICtal) 100 mg Q12HR ORAL 12/25/16 22:00 01/24/17 21:59 12/27/16 09:48 Lisinopril (Prinivil) 20 mg BID ORAL 12/26/16 18:00 01/25/17 17:59 12/27/16 09:50 Nifedipine (Procardia XL) 60 mg DAILY ORAL 12/27/16 09:00 01/26/17 08:59 Nitroglycerin (Ntg) 0.4 mg Q5M PRN SL Prn Chest Pain 12/25/16 22:30 01/24/17 22:29 Ondansetron HCl (Zofran) 4 mg Q6H PRN IVP Nausea & Vomiting 12/25/16 21:45 01/24/17 21:44 Polyethylene Glycol (Miralax) 17 gm HSPRN PRN ORAL Constipation 12/25/16 21:45 01/24/17 21:44 Pravastatin Sodium (Pravachol) 40 mg BEDTIME ORAL 12/25/16 22:00 01/24/17 21:59 12/26/16 22:02 Sitagliptin Phosphate (Januvia) 25 mg ACBREAKFAST ORAL 12/26/16 06:30 01/25/17 06:29 12/26/16 06:36 Zolpidem Tartrate (Ambien) 5 mg HSPRN PRN ORAL Insomnia 12/25/16 21:45 01/01/17 21:44 Allergies: Coded Allergies: No Known Allergies (Verified , 08/23/06) ROS Limited/Unobtainable: Yes Subjective 56 YO F with history of Bipolar disorder admitted with chest pain. Refused stress test. Cover for Int Med-Dr Lundberg. Objective Last Vital Signs Date Time Temp Pulse Resp B/P (MAP) Pulse Ox O2 Delivery O2 Flow Rate FiO2 12/27/16 11:27 73 24 Nasal Cannula 2.0 28 12/27/16 09:50 139/53 12/27/16 07:49 96.7 95 General Appearance: WD/WN, no apparent distress, alert EENT: PERRL/EOMI, normal ENT inspection, TMs normal Neck: non-tender, normal alignment, supple, normal inspection Cardiovascular: normal peripheral pulses, normal rate, regular rhythm, no gallop/murmur, no JVD Respiratory/Chest: chest wall non-tender, lungs clear, normal breath sounds, no respiratory distress, no accessory muscle use Abdomen: normal bowel sounds, non tender, soft, no organomegaly, no mass Extremities: normal range of motion 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 (2) Diabetes mellitus, type II Assessment & Plan: Continue novolog and januvia (3) Chest pain Assessment & Plan: See cardiology note. (4) CHF (congestive heart failure) (5) ESRD (end stage renal disease) on dialysis Assessment & Plan: Hemodialysis today. (6) HTN (hypertension) Assessment & Plan: Continue lisinopirl and nifedipine (7) Hypercholesteremia Status: atelectasis MARIA T MONTEIRO Dec 27, 2016 13:50
--- NOTE | 2016-12-27 14:56 | Pulmonology Progress Note ---
Assessment/Plan Problems: (1) ACS (acute coronary syndrome) (2) Costochondritis (3) GERD (gastroesophageal reflux disease) (4) ESRD (end stage renal disease) on dialysis (5) HTN (hypertension) Assessment/Plan refusing blood transfusion and labs HD by nephrology monitor BP symptomatic treatment f/u GI and cardio recommendations. Subjective ROS Limited/Unobtainable: No Interval Events: refusing most of the care Allergies: Coded Allergies: No Known Allergies (Verified , 08/23/06) Objective Last 24 Hour Vital Signs Date Time Temp Pulse Resp B/P (MAP) Pulse Ox O2 Delivery O2 Flow Rate FiO2 12/27/16 12:00 64 12/27/16 11:27 73 24 Nasal Cannula 2.0 28 12/27/16 09:50 139/53 12/27/16 09:39 Room Air 12/27/16 07:49 96.7 52 18 139/53 95 Room Air 12/27/16 05:25 Room Air 12/27/16 04:00 97.0 49 20 120/59 97 Room Air 12/27/16 00:00 97.0 47 20 108/57 97 Room Air 12/26/16 17:26 109/53 Intake and Output 12/27/16 12/28/16 19:00 07:00 Intake Total 480 ml Output Total 1000 ml Balance -520 ml Intake Oral 480 ml Hemodialysis UF 1000 ml General Appearance: WD/WN HEENT: normocephalic, atraumatic Respiratory/Chest: chest wall non-tender, lungs clear Breasts: no masses Cardiovascular: normal peripheral pulses Abdomen: normal bowel sounds, no organomegaly Genitourinary: normal external genitalia Extremities: no clubbing 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 Lymphatic: no neck adenopathy Current Medications Medications (Trade) Dose Ordered Sig/Gabriele Route PRN Reason Start Time Stop Time Status Last Admin Dose Admin Acetaminophen (Tylenol) 650 mg Q4H PRN ORAL fever 12/25/16 21:45 01/24/17 21:44 12/25/16 22:24 Albuterol/ Ipratropium (Albuterol/ Ipratropium) 3 ml Q6H PRN HHN dyspnea 12/25/16 21:45 12/30/16 21:44 Aspirin (ASA) 81 mg DAILY ORAL 12/26/16 09:00 01/25/17 08:59 11/8/17 09:00 Bisacodyl (Dulcolax) 5 mg DAILYPRN PRN ORAL Constipation 12/26/16 11:15 01/25/17 11:14 Chlorhexidine Gluconate (Cassia-Hex 2%) 1 applic DAILY TOPIC 12/27/16 09:00 01/26/17 08:59 12/27/16 09:00 Clonazepam (KlonoPIN) 0.5 mg Q6HR ORAL 12/26/16 00:00 01/02/17 00:00 12/27/16 12:26 Clonidine HCl (Catapres) 0.1 mg Q4H PRN ORAL SBP > 160mmHg 12/26/16 09:45 01/25/17 09:44 Dextrose (Dextrose 50%) STAT PRN IV Hypoglycemia 12/25/16 21:45 01/24/17 21:44 Escitalopram Oxalate (Lexapro) 10 mg DAILY ORAL 12/26/16 09:00 01/25/17 08:59 12/27/16 09:00 Gabapentin (Neurontin) 300 mg BEDTIME ORAL 12/25/16 22:00 01/24/17 21:59 12/26/16 22:01 Heparin Sodium (Porcine) (Heparin 5000 units/ml) 5,000 units EVERY 12 HOURS SUBQ 12/26/16 09:00 01/25/17 08:59 12/27/16 09:00 Insulin Aspart (NovoLOG) BEFORE MEALS AND HS SUBQ 12/26/16 06:30 01/25/17 06:29 12/27/16 11:30 Lamotrigine (LaMICtal) 100 mg Q12HR ORAL 12/25/16 22:00 01/24/17 21:59 12/27/16 09:48 Lisinopril (Prinivil) 20 mg BID ORAL 12/26/16 18:00 01/25/17 17:59 12/27/16 09:50 Nifedipine (Procardia XL) 60 mg DAILY ORAL 12/27/16 09:00 01/26/17 08:59 Nitroglycerin (Ntg) 0.4 mg Q5M PRN SL Prn Chest Pain 12/25/16 22:30 01/24/17 22:29 Ondansetron HCl (Zofran) 4 mg Q6H PRN IVP Nausea & Vomiting 12/25/16 21:45 01/24/17 21:44 Polyethylene Glycol (Miralax) 17 gm HSPRN PRN ORAL Constipation 12/25/16 21:45 01/24/17 21:44 Pravastatin Sodium (Pravachol) 40 mg BEDTIME ORAL 12/25/16 22:00 01/24/17 21:59 12/26/16 22:02 Sitagliptin Phosphate (Januvia) 25 mg ACBREAKFAST ORAL 12/26/16 06:30 01/25/17 06:29 12/26/16 06:36 Zolpidem Tartrate (Ambien) 5 mg HSPRN PRN ORAL Insomnia 12/25/16 21:45 01/01/17 21:44 LEO MCGEE Dec 27, 2016 14:56
[2016-12-27 15:24] VITALS: BP 114/52
--- NOTE | 2016-12-27 15:27 | Nephrology Progress Note ---
Assessment/Plan Problem List: (1) ESRD (end stage renal disease) on dialysis (2) Diabetes mellitus, type II (3) Anemia in chronic renal disease Assessment Status: - End-stage renal disease, on hemodialysis. - Anemia of chronic kidney disease. - Hypertension. - Diabetes type 2. - Morbid obesity. - H/O Colon Cancer - H/O Hep C - H/O Depression and Bipolar disease Plan Plan : HD today Adjust BP medications stop beta blockers- Bradycardia Per orders Objective Objective Last 24 Hour Vital Signs Date Time Temp Pulse Resp B/P (MAP) Pulse Ox O2 Delivery O2 Flow Rate FiO2 12/27/16 15:24 96.3 59 18 114/52 95 Room Air 12/27/16 12:00 64 12/27/16 11:27 73 24 Nasal Cannula 2.0 28 12/27/16 09:50 139/53 12/27/16 09:39 Room Air 12/27/16 07:49 96.7 52 18 139/53 95 Room Air 12/27/16 05:25 Room Air 12/27/16 04:00 97.0 49 20 120/59 97 Room Air 12/27/16 00:00 97.0 47 20 108/57 97 Room Air 12/26/16 17:26 109/53 Intake and Output 12/27/16 12/28/16 19:00 07:00 Intake Total 720 ml Output Total 1000 ml Balance -280 ml Intake Oral 720 ml Hemodialysis UF 1000 ml Height (Feet): 5 Height (Inches): 7.00 Weight (Pounds): 240 ANDREAS BARRERA Dec 27, 2016 15:27
[2016-12-27 16:30] VITALS: BP 128/68
[2016-12-27] MEDS ORDERED: Nitroglycerin Subl 0.4mg tab SL PRN (16:45)
[2016-12-27] MEDS ORDERED: Miralax 17gm pkt ORAL PRN (17:00)
[2016-12-27] MEDS ORDERED: Bisacodyl EC 5mg tab ORAL PRN (17:00)
[2016-12-27] MEDS ORDERED: Zolpidem 5mg tab ORAL PRN (17:00)
[2016-12-27] MEDS ORDERED: NovoLOG Insulin Flexpen SUBQ SCH (17:30)
[2016-12-27] MEDS ORDERED: Lisinopril 20mg tab ORAL SCH (18:00)
[2016-12-27] MEDS ORDERED: clonazePAM 0.5mg tab ORAL SCH (18:00)
[2016-12-27 20:00] VITALS: BP 132/59
[2016-12-27] MEDS ORDERED: Heparin 5000 units/ml inj SUBQ SCH (21:00)
[2016-12-27] MEDS ORDERED: Albuterol/Ipratropium 3ml neb HHN PRN (21:45)
[2016-12-28] MEDS ORDERED: sitaGLIPtin 25mg tab ORAL SCH (06:30)
[2016-12-28] MEDS ORDERED: Aspirin Baby 81mg ORAL SCH (09:00)
[2016-12-28] MEDS ORDERED: Dyna-Hex 2% Top Sol 2oz TOPIC SCH (09:00)
--- NOTE | 2016-12-28 22:07 | Consultation ---
History of Present Illness General Date patient seen: Dec 26, 2016 Chief Complaint: Chest Pain Referring physician: Dr. Cotter Reason for Consultation: chest pain Present Illness HPI 56 yo female with hx of bipolar and mmp who was admitted for medical stabilization. the pt was irritable during the eval and has poor insight. the pt was reluctant to any med changes. the pt stated that she has anxiety and not sleeping well. the didnt endorse any si/hi nor psychotic sxs Allergies: Coded Allergies: No Known Allergies (Verified , 08/23/06) Medication History Scheduled Aspirin* (Aspirin*), 81 MG ORAL DAILY, (Reported) Carvedilol* (Carvedilol*), 12.5 MG ORAL EVERY 12 HOURS, (Reported) Clonazepam* (Klonopin*), 0.5 MG ORAL Q6H, (Reported) Clonidine Hcl* (Catapres*), 0.1 MG ORAL EVERY 6 HOURS, (Reported) Escitalopram Oxalate* (Lexapro*), 10 MG ORAL DAILY, (Reported) Gabapentin* (Gabapentin*), 300 MG ORAL BEDTIME, (Reported) Lamotrigine* (Lamictal*), 100 MG ORAL BID, (Reported) Olmesartan Medoxomil (Benicar), 5 MG ORAL DAILY, (Reported) Pravastatin Sodium (Pravachol), 40 MG ORAL BEDTIME, (Reported) Sevelamer Carbonate* (Renvela*), 4 TAB ORAL THREE TIMES A DAY, (Reported) Sitagliptin* (Januvia*), 25 MG ORAL DAILY, (Reported) Miscellaneous Medications Insulin Lispro (Humalog), 0 SUBQ, (Reported) Patient History History Provided By: Patient, Significant Other Healthcare decision maker Resuscitation status Full Code Advanced Directive on File Past Medical/Surgical History Past Medical/Surgical History: (1) Syncope (2) Renal failure (ARF), acute on chronic (3) Bradycardia (4) Clotted renal dialysis arteriovenous graft (5) ESRD (end stage renal disease) on dialysis (6) HTN (hypertension) (7) Costochondritis (8) GERD (gastroesophageal reflux disease) (9) Diabetes mellitus, type II (10) CHF (congestive heart failure) (11) Chest pain (12) Bipolar depression (13) Hypercholesteremia (14) Anemia in chronic renal disease Review of Systems Psychiatric: Reports: prior hx, anxiety, depressed feelings, emotional problems Physical Exam General Appearance: no apparent distress, alert Neurologic: alert, oriented x 3, responsive, depressed affect Height (Feet): 5 Height (Inches): 7.00 Weight (Pounds): 240 Assessment/Plan Status: stable Assessment/Plan bipolar d/o cont Blanka Lane M.D. Dec 28, 2016 22:07
--- NOTE | 2016-12-29 15:30 | Discharge Summary 2 SIG ---
DATE OF ADMISSION: 12/25/2016 DATE OF DISCHARGE: 12/27/2016 CONSULTS: 1. Blanka Beckett M.D. 2. Eamon Solis M.D. 3. Demetri Vallecillo M.D. 4. Claus Ann M.D. BRIEF HOSPITAL COURSE: The patient is a 56-year-old female with history of end-stage renal disease, on hemodialysis, hypertension, diabetes, and bipolar depression, presented to ED complaining of substernal chest pain for one day. Pain was described to be nonradiating and 8/10 in severity. There was no shortness of breath. No fever. No chills. No cough. She was given aspirin and nitroglycerin by EMS. On evaluation at ED, labs showed no leukocytosis. Creatinine was 7.8, BUN 71, troponin was 0.005, and ProBNP was 33,174. EKG showed normal sinus rhythm with no acute changes. Chest x-ray with bilateral effusion and cardiomegaly. She was admitted to telemetry for possible acute coronary syndrome as she has risk factors for cardiovascular disease. She underwent cardiac evaluation with Dr. Ann. She was given aspirin, statin as well as lisinopril and nifedipine XL for blood pressure control. Telemetry data showed sinus bradycardia. Beta-blockers were placed on hold. Echocardiogram done showed EF of 60% with normal left ventricular size, function, and wall motion. RVSP of 43 consistent with moderate pulmonary hypertension. She was given inpatient hemodialysis and underwent psychiatric evaluation. The patient was irritable and has anxiety. She did not endorse any suicidal intent or ideation. She was diagnosed with bipolar disorder and was continued on Klonopin and Lamictal. The patient's hemoglobin level dropped to 7.7, however, refused blood transfusion and signed out against medical advice. Full treatment was not carried out as the patient signed out against medical advice. FINAL DIAGNOSES: 1. Atypical chest pain with no evidence of myonecrosis. 2. End-stage renal disease, on hemodialysis. 3. Nonadherence to medical treatment. 4. Diabetes mellitus. 5. Hypertension. 6. Bipolar disorder. 7. Anemia of chronic kidney disease. DISPOSITION: The patient left AMA. Sukhi Cotter M.D. I have been assigned to dictate discharge summary on this account and I was not involved in the patient's management. Teresa Higginbotham N.P. DR: Raleigh JOB#: [id number] CC: VIKAS
== END 2016-12-27 23:00 | disposition left against medical advice (07) | DRG 313 ==
LOC: EDBD 19:21 → EMR 19:52 → 2E 20:00 → EDBEDREQ 20:47 → 2E 22:53 → 3E 12-27 15:48
PROC: 5A1D70Z Performance of Urinary Filtration, Intermittent, Less than 6 Hours Per Day (ICD-10-PCS; principal; 2016-12-27)
DX: R07.89 Other chest pain (principal); I12.0 Hypertensive chronic kidney disease with stage 5 chronic kidney disease or end stage renal disease; E11.22 Type 2 diabetes mellitus with diabetic chronic kidney disease; N18.6 End stage renal disease; I27.20 Pulmonary hypertension, unspecified; I50.9 Heart failure, unspecified; Z99.2 Dependence on renal dialysis; F31.9 Bipolar disorder, unspecified; Z79.4 Long term (current) use of insulin; E78.00 Pure hypercholesterolemia, unspecified; Z91.19 Patient's noncompliance with other medical treatment and regimen; D63.1 Anemia in chronic kidney disease; B19.20 Unspecified viral hepatitis C without hepatic coma; E66.01 Morbid (severe) obesity due to excess calories; Z85.038 Personal history of other malignant neoplasm of large intestine
CPT/HCPCS: 36415; 71010; 80053; 80061; 82550; 82553; 82962; 83036; 83880; 84443; 84484; 85007; 85025; 87081; 93005; 93306; 94664; 99285; J1815

== ENCOUNTER 2017-04-19 16:46 | Inpatient (IN) | payer MEDICARE, MEDICAID ==
[~2017-04-19] VITALS: Ht 170.2 cm; Wt 99.8 kg
[~2017-04-19 16:46] MED LIST changes: +ASPIRIN81 MG ORAL; +CARVEDILOL12.5 MG ORAL; +CATAPRES0.1 MG ORAL; +GABAPENTIN300 MG ORAL; +HUMALOG100 UNIT/4 SUBQ; +LAMICTAL100 MG ORAL; +PRAVACHOL40 MG ORAL; +RENVELA0.8 GM ORAL
--- NOTE | 2017-04-19 17:15 | Emergency Room Report ---
History of Present Illness General Chief Complaint: Multiple Trauma/Fall Source: Medical Record Present Illness HPI 56 yo female patient presents to ER BIB ambulance complaining of weakness in bilateral lower extremities for the past few hours. Patient walking in house when legs felt weak and she "fell onto her butt." Patient denies hitting her head, LOC, dizziness, syncope. Patient reports hx of weakness in legs; states being seen by physician for symptoms currently. Patient reports hx of diabetes. Currently taking Gabapentin for nerve symptoms. Patient reports hx of hypothyroidism. Denies chest pain, SOB, fever. Denies bowel or bladder problems. Dialysis patient, seen on Sunday and Fridays. Allergies: Coded Allergies: No Known Allergies (Verified , 08/23/06) Patient History Past Medical History: see triage record Reviewed Nursing Documentation: PMH: Agreed, PSxH: Agreed Nursing Documentation-PMH Past Medical History: No History, Except For Hx Cardiac Problems: No Hx Hypertension: Yes Hx Diabetes: Yes Hx Cancer: Yes - Colon cancer Hx Gastrointestinal Problems: Yes - HEP C Hx Dialysis: Yes - M--F, ESRD Hx Neurological Problems: No Review of Systems All Other Systems: negative except mentioned in HPI Physical Exam Vital Signs Date Time Temp Pulse Resp B/P (MAP) Pulse Ox O2 Delivery O2 Flow Rate FiO2 04/19/17 16:48 97.7 56 16 145/69 97 Room Air 97.7 Sp02 EP Interpretation: reviewed, normal General Appearance: well appearing, no apparent distress, alert, GCS 15 Head: normocephalic, atraumatic Eyes: bilateral eye normal inspection, bilateral eye PERRL ENT: hearing grossly normal, normal pharynx, no angioedema, normal voice, uvula midline, moist mucus membranes Neck: full range of motion Respiratory: lungs clear, normal breath sounds, no rhonchi, no respiratory distress, no accessory muscle use, no wheezing, speaking full sentences Cardiovascular #1: regular rate, rhythm, edema - left leg Gastrointestinal: non tender, soft, no mass, non-distended, no guarding, no rebound Genitourinary: no CVA tenderness Musculoskeletal: back normal, digits/nails normal, gait/station normal, normal range of motion, non-tender, no calf tenderness, Paul's Sign negative, other - unable to walk secondary to pain Neurologic: alert, oriented x3, responsive, motor strength/tone normal, SLR negative, sensory intact Psychiatric: mood/affect normal Skin: other - no ecchymosis, scaling on feet bilaterally, abrasions - small abrasion on forearms bilaterally Lymphatic: no adenopathy Medical Decision Making PA Attestation Dr. Bailey is my supervising Physician whom patient management has been discussed with. Diagnostic Impression: Primary Impression: Dialysis patient Additional Impressions: Bilateral leg numbness Abrasion ER Course Pt. presents to the ED c/o bilateral leg weakness. Ddx considered but are not limited to diabetic neuropathy, spinal stenosis, disc protrusion. Vital signs: are WNL, pt. is afebrile Ordered labs, MRI, and EKG. ER COURSE: EKG negative for ST elevation or arrhythmia CBC unremarkable, no elevation in WBC. CMP elevated creatinine 11.1; patient is on dialysis twice/week. MRI shows disc bulge at L4-5 and bulge with central disc protrusion at L5-S1. No acute fracture. Ordered Bacitracin. Patient abrasions cleaned and Bacitracin applied; sterile dressing cover abrasion. Patient unable to ambulate independently; patient has stairs to get to her apartment; unable to walk up stairs. Patient reports concerns about being able to ambulate if discharged to home. Elevated creatinine. Concern over patient being able to go to dialysis tomorrow. Patient resting in bed, in no acute distress, nontoxic appearing. Discuss patient and results with Dr. Bailey; will admit patient to med- surgery to Dr. Lundberg. Patient admitted to med-surgery. Labs Test 04/19/17 17:48 White Blood Count 7.3 K/UL (4.8-10.8) Red Blood Count 2.93 M/UL (4.20-5.40) Hemoglobin 8.5 G/DL (12.0-16.0) Hematocrit 26.2 % (37.0-47.0) Mean Corpuscular Volume 89 FL (80-99) Mean Corpuscular Hemoglobin 29.2 PG (27.0-31.0) Mean Corpuscular Hemoglobin Concent 32.6 G/DL (32.0-36.0) Red Cell Distribution Width 14.0 % (11.6-14.8) Platelet Count 190 K/UL (150-450) Mean Platelet Volume 6.8 FL (6.5-10.1) Neutrophils (%) (Auto) 62.8 % (45.0-75.0) Lymphocytes (%) (Auto) 23.1 % (20.0-45.0) Monocytes (%) (Auto) 8.5 % (1.0-10.0) Eosinophils (%) (Auto) 4.5 % (0.0-3.0) Basophils (%) (Auto) 1.2 % (0.0-2.0) Sodium Level 135 MMOL/L (136-145) Potassium Level 4.6 MMOL/L (3.5-5.1) Chloride Level 102 MMOL/L (98-107) Carbon Dioxide Level 16 MMOL/L (21-32) Anion Gap 17 mmol/L (5-15) Blood Urea Nitrogen 102 mg/dL (7-18) Creatinine 11.1 MG/DL (0.55-1.30) Estimat Glomerular Filtration Rate 3.6 mL/min (>60) Glucose Level 99 MG/DL (74-106) Calcium Level 8.7 MG/DL (8.5-10.1) Total Bilirubin 0.4 MG/DL (0.2-1.0) Aspartate Amino Transf (AST/SGOT) 15 U/L (15-37) Alanine Aminotransferase (ALT/SGPT) 16 U/L (12-78) Alkaline Phosphatase 126 U/L (46-116) Total Protein 7.1 G/DL (6.4-8.2) Albumin 2.8 G/DL (3.4-5.0) Globulin 4.3 g/dL Albumin/Globulin Ratio 0.7 (1.0-2.7) EKG Diagnostic Results Rate: bradycardiac Rhythm: NSR ST Segments: no acute changes Other Impression Possible left atrial enlargement ASA given to the pt in ED: No PA Scribe Text Cristiano Hernandez PA-C Rhythm Strip Diag. Results EP Interpretation: yes Rate: 54 Rhythm: NSR, no PVC's, no ectopy PA Scribe Lilian Hernandez PA-C CT/MRI/US Diagnostic Results CT/MRI/US Diagnostic Results : Imaging Test Ordered: MRI lumbar spine Impression No fracture or malalignment. Disc bulge at L4 - 5. No high-grade central canal or foraminal compromise. Bulge with central disc protrusion at L5 - S1. Mild central canal and foramina narrowing. Subcutaneous edema in the back. Distended bladder Splenomegaly. Last Vital Signs Date Time Temp Pulse Resp B/P (MAP) Pulse Ox O2 Delivery O2 Flow Rate FiO2 04/19/17 16:48 97.7 56 16 145/69 97 Room Air 97.7 Disposition: ADMITTED INPATIENT Arian Hernandez Apr 19, 2017 17:15
[2017-04-19 18:22] LABS: BASOPHILS % (AUTO) 1.2 % (0.0-2.0); EOSINOPHILS % (AUTO) 4.5 % (0.0-3.0); HEMATOCRIT 26.2 % (37.0-47.0); HEMOGLOBIN 8.5 G/DL (12.0-16.0); LYMPHOCYTES % (AUTO) 23.1 % (20.0-45.0); MEAN CORPUSCULAR VOLUME 89 FL (80-99); MONOCYTES % (AUTO) 8.5 % (1.0-10.0); NEUTROPHILS % (AUTO) 62.8 % (45.0-75.0); PLATELET COUNT 190 K/UL (150-450); RED BLOOD COUNT 2.93 M/UL (4.20-5.40); WHITE BLOOD COUNT 7.3 K/UL (4.8-10.8)
[2017-04-19 18:37] LABS: ANION GAP 17 mmol/L (5-15); BLOOD UREA NITROGEN 102 mg/dL (7-18); CALCIUM 8.7 MG/DL (8.5-10.1); CARBON DIOXIDE 16 MMOL/L (21-32); CHLORIDE 102 MMOL/L (98-107); CREATININE 11.1 MG/DL (0.55-1.30); POTASSIUM 4.6 MMOL/L (3.5-5.1); SODIUM 135 MMOL/L (136-145)
[2017-04-19 18:42] LABS: ALANINE AMINOTRANSFERASE 16 U/L (12-78); ALBUMIN 2.8 G/DL (3.4-5.0); ALBUMIN/GLOBULIN RATIO 0.7 (1.0-2.7); ALKALINE PHOSPHATASE 126 U/L (46-116); ASPARTATE AMINO TRANSFERASE 15 U/L (15-37); BILIRUBIN,TOTAL 0.4 MG/DL (0.2-1.0)
[2017-04-19] MEDS ORDERED: Bacitracin Oint UD TOPIC ONE (19:30)
[2017-04-19 20:00] VITALS: BP 155/65
[2017-04-19] MEDS ORDERED: CARVEDILOL12.5 MG ORAL (21:11)
[2017-04-19] MEDS ORDERED: DIOVAN80 MG ORAL (21:11)
[2017-04-19] MEDS ORDERED: LEXAPRO20 MG ORAL (21:11)
[2017-04-19] MEDS ORDERED: TORSEMIDE100 MG PO (21:11)
[2017-04-19] MEDS ORDERED: QUETIAPINE FUM400 MG ORAL (21:11)
[2017-04-19] MEDS ORDERED: SYNTHROID25 MCG ORAL (21:11)
[2017-04-19] MEDS ORDERED: ASPIRIN81 MG ORAL (21:11)
[2017-04-19] MEDS ORDERED: JANUVIA25 MG ORAL (21:11)
[2017-04-19] MEDS ORDERED: GABAPENTIN100 MG ORAL (21:11)
[2017-04-19] MEDS ORDERED: CATAPRES0.1 MG ORAL (21:11)
[2017-04-19] MEDS ORDERED: PRAVASTATIN SOD20 M1 ORAL (21:11)
[2017-04-19] MEDS ORDERED: LAMICTAL100 MG ORAL (21:11)
[2017-04-19] MEDS ORDERED: KLONOPIN1 MG ORAL (21:12)
[2017-04-19] MEDS ORDERED: Miralax 17gm pkt ORAL PRN (22:15)
[2017-04-19] MEDS ORDERED: Albuterol/Ipratropium 3ml neb HHN PRN (22:15)
[2017-04-19] MEDS: clonazePAM 0.5mg tab ORAL SCH (22:15)
[2017-04-19 22:45] VITALS: BP 160/65
[2017-04-20 04:31] VITALS: BP 118/50
[2017-04-20] MEDS: clonazePAM 0.5mg tab ORAL SCH ×4 (05:29→21:12)
[2017-04-20] MEDS: Levothyroxine 25mcg tab ORAL SCH (05:30)
[2017-04-20 08:12] VITALS: BP 156/74
[2017-04-20] MEDS ORDERED: Carvedilol 12.5mg tab ORAL SCH (09:00)
[2017-04-20] MEDS: sitaGLIPtin 25mg tab ORAL SCH (09:10)
[2017-04-20] MEDS: Aspirin Baby 81mg ORAL SCH (09:11)
[2017-04-20] MEDS: Heparin 5000 units/ml inj SUBQ SCH ×2 (09:27→21:06)
[2017-04-20 10:52] LABS: EOSINOPHILS % (AUTO) 3.2 % (0.0-3.0); HEMATOCRIT 25.8 % (37.0-47.0); HEMOGLOBIN 8.5 G/DL (12.0-16.0); LYMPHOCYTES % (AUTO) 16.7 % (20.0-45.0); MEAN CORPUSCULAR VOLUME 90 FL (80-99); MONOCYTES % (AUTO) 7.5 % (1.0-10.0); NEUTROPHILS % (AUTO) 71.7 % (45.0-75.0); PLATELET COUNT 179 K/UL (150-450); RED BLOOD COUNT 2.89 M/UL (4.20-5.40); RED CELL DISTRIBUTION WIDTH 14.3 % (11.6-14.8); WHITE BLOOD COUNT 8.1 K/UL (4.8-10.8)
[2017-04-20 11:29] LABS: ALBUMIN 2.7 G/DL (3.4-5.0); ANION GAP 18 mmol/L (5-15); BLOOD UREA NITROGEN 99 mg/dL (7-18); CALCIUM 8.3 MG/DL (8.5-10.1); CARBON DIOXIDE 16 MMOL/L (21-32); CHLORIDE 103 MMOL/L (98-107); CREATININE 6.5 MG/DL (0.55-1.30); PHOSPHORUS 8.6 MG/DL (2.5-4.9); SODIUM 137 MMOL/L (136-145)
[2017-04-20 11:30] VITALS: BP 148/75
--- NOTE | 2017-04-20 13:34 | Diagnostic Imaging Report ---
Indication: Back pain Technique: MRI examination of the Lumbar spine was performed in a 1.5 Saundra magnet. Sequences obtained include sagittal and axial T1 and T2 fast spin echo, and sagittal STIR. Comparison: none Findings: Bone marrow signal and alignment are normal. The ligaments posterior elements and configuration appear normal. There is no soft tissue edema or abnormal fluid collections. The distal part of the spinal cord is normal. The conus medullaris is seen at L1. There is mild loss of height of the L4-5 disc. There is some hypertrophy of the facets at this level. L5-S1 shows a small posterior disc protrusion. There is no central stenosis. There is no narrowing of the lateral recess or foraminal narrowing. Facets are mildly hypertrophic. IMPRESSION: No acute injury identified. Some mild degenerative changes as described above
--- NOTE | 2017-04-20 15:22 | Consultation ---
History of Present Illness General Date patient seen: Apr 20, 2017 Time patient seen: 14:00 Referring physician: dr Lundberg Reason for Consultation: inpatient management , COPD Present Illness HPI 56 y/old female with PMH of ESRD, on HD, colon Ca, hepatitis C, HTN, COPD, smoker, hypothyroidism, psychiatric history, presented to ED with c/o BLE weakness for the past few hours. Patient was walking in house when legs felt weak and fell( had abrasions o both forearms) Patient denied hitting her head, LOC, dizziness, syncope, blackout. Patient reported hx of weakness in legs; states being seen by physician for symptoms currently. When questioned also admitted to have diabetic neuropathy ; taking Neurontin No CP, SOB Denied bowel or bladder problems. No saddle/perineal numbness VSS MRI L spine L5-S1 shows a small posterior disc protrusion. There was no central stenosis. No narrowing of the lateral recess or foraminal narrowing ECG no acute ischemic changes troponin negative renal parameters elevated, c/w known hx of ESRD no leucocytosis, anemia patient was admitted for further management Allergies: Coded Allergies: No Known Allergies (Verified , 08/23/06) Medication History Scheduled Aspirin* (Aspirin*), 81 MG ORAL DAILY, (Reported) Aspirin* (Aspirin*), 81 MG ORAL DAILY, (Reported) Carvedilol* (Carvedilol*), 12.5 MG ORAL EVERY 12 HOURS, (Reported) Carvedilol* (Carvedilol*), 12.5 MG ORAL EVERY 12 HOURS, (Reported) Clonazepam* (Klonopin*), 0.5 MG ORAL Q6H, (Reported) Clonazepam* (Klonopin*), 1 MG ORAL Q6H, (Reported) Clonidine Hcl* (Catapres*), 0.1 MG ORAL EVERY 6 HOURS, (Reported) Clonidine Hcl* (Catapres*), 0.1 MG ORAL BID, (Reported) Escitalopram Oxalate* (Lexapro*), 10 MG ORAL DAILY, (Reported) Escitalopram Oxalate* (Lexapro*), 20 MG ORAL DAILY, (Reported) Gabapentin* (Gabapentin*), 300 MG ORAL BEDTIME, (Reported) Gabapentin* (Gabapentin*), 100 MG ORAL BEDTIME, (Reported) Lamotrigine* (Lamictal*), 100 MG ORAL BID, (Reported) Lamotrigine* (Lamictal*), 100 MG ORAL BID, (Reported) Levothyroxine Sodium* (Synthroid*), Unknown Dose ORAL DAILY, (Reported) Olmesartan Medoxomil (Benicar), 5 MG ORAL DAILY, (Reported) Pravastatin Sod* (Pravastatin Sod*), 40 MG ORAL BEDTIME, (Reported) Pravastatin Sodium (Pravachol), 40 MG ORAL BEDTIME, (Reported) Quetiapine Fumarate* (Quetiapine Fumarate*), 300 MG ORAL BEDTIME, (Reported) Sevelamer Carbonate* (Renvela*), 4 TAB ORAL THREE TIMES A DAY, (Reported) Sitagliptin* (Januvia*), 25 MG ORAL DAILY, (Reported) Sitagliptin* (Januvia*), 25 MG ORAL DAILY, (Reported) Torsemide* (Demadex*), 100 MG PO DAILY, (Reported) Valsartan (Diovan), 80 MG ORAL DAILY, (Reported) Miscellaneous Medications Insulin Lispro (Humalog), 0 SUBQ, (Reported) Patient History Healthcare decision maker Resuscitation status Advanced Directive on File No Review of Systems Constitutional: Reports: no symptoms Eye: Reports: no symptoms ENT: Reports: no symptoms Respiratory: Reports: no symptoms Cardiovascular: Reports: no symptoms Gastrointestinal: Reports: other - hx of colon Ca, hx of hep C Genitourinary: Reports: other - ESRD, on HD Musculoskeletal: Reports: see HPI Skin: Reports: see HPI Psychiatric: Reports: no symptoms Neurological: Reports: see HPI Endocrine: Reports: other - DM Physical Exam General Appearance: no apparent distress, other - awake, alert, responsive obese female in NAD Lines, tubes and drains: peripheral HEENT: normocephalic, atraumatic, anicteric Neck: non-tender, normal alignment, supple Respiratory/Chest: chest wall non-tender, lungs clear, normal breath sounds, no respiratory distress, no accessory muscle use, other - R chest HD catheter Cardiovascular/Chest: normal peripheral pulses, normal rate, regular rhythm, no JVD Abdomen: normal bowel sounds, non tender, soft - obese Extremities: no calf tenderness Neurologic: abnormal gait, alert, oriented x 3, responsive Musculoskeletal: normal muscle bulk Last 24 Hour Vital Signs Date Time Temp Pulse Resp B/P (MAP) Pulse Ox O2 Delivery O2 Flow Rate FiO2 3/2/18 11:30 98.4 62 20 148/75 97 98.4 04/20/17 09:10 156/74 04/20/17 09:00 55 156/74 04/20/17 08:12 97.3 55 20 156/74 97 97.3 04/20/17 04:31 97.7 56 20 118/50 100 Room Air 97.7 55 04/19/17 23:16 97.7 66 16 160/65 97 Room Air 97.7 62 04/19/17 22:45 97.7 62 16 160/65 97 Room Air 97.7 04/19/17 20:00 97.7 66 16 155/65 97 Room Air 97.7 04/19/17 16:48 97.7 56 16 145/69 97 Room Air 97.7 Intake and Output 04/19/17 04/20/17 19:00 07:00 Output Total 1100 ml Balance -1100 ml Output Urine Total 1100 ml Laboratory Tests Test 04/19/17 17:48 04/20/17 10:20 White Blood Count 7.3 K/UL (4.8-10.8) 8.1 K/UL (4.8-10.8) Red Blood Count 2.93 M/UL (4.20-5.40) L 2.89 M/UL (4.20-5.40) L Hemoglobin 8.5 G/DL (12.0-16.0) L 8.5 G/DL (12.0-16.0) L Hematocrit 26.2 % (37.0-47.0) L 25.8 % (37.0-47.0) L Mean Corpuscular Volume 89 FL (80-99) 90 FL (80-99) Mean Corpuscular Hemoglobin 29.2 PG (27.0-31.0) 29.6 PG (27.0-31.0) Mean Corpuscular Hemoglobin Concent 32.6 G/DL (32.0-36.0) 33.0 G/DL (32.0-36.0) Red Cell Distribution Width 14.0 % (11.6-14.8) 14.3 % (11.6-14.8) Platelet Count 190 K/UL (150-450) 179 K/UL (150-450) Mean Platelet Volume 6.8 FL (6.5-10.1) 6.5 FL (6.5-10.1) Neutrophils (%) (Auto) 62.8 % (45.0-75.0) 71.7 % (45.0-75.0) Lymphocytes (%) (Auto) 23.1 % (20.0-45.0) 16.7 % (20.0-45.0) L Monocytes (%) (Auto) 8.5 % (1.0-10.0) 7.5 % (1.0-10.0) Eosinophils (%) (Auto) 4.5 % (0.0-3.0) H 3.2 % (0.0-3.0) H Basophils (%) (Auto) 1.2 % (0.0-2.0) 1.0 % (0.0-2.0) Sodium Level 135 MMOL/L (136-145) L 137 MMOL/L (136-145) Potassium Level 4.6 MMOL/L (3.5-5.1) 5.0 MMOL/L (3.5-5.1) Chloride Level 102 MMOL/L (98-107) 103 MMOL/L (98-107) Carbon Dioxide Level 16 MMOL/L (21-32) L 16 MMOL/L (21-32) L Anion Gap 17 mmol/L (5-15) H 18 mmol/L (5-15) H Blood Urea Nitrogen 102 mg/dL (7-18) H 99 mg/dL (7-18) H Creatinine 11.1 MG/DL (0.55-1.30) H 6.5 MG/DL (0.55-1.30) H Estimat Glomerular Filtration Rate 3.6 mL/min (>60) 6.6 mL/min (>60) Glucose Level 99 MG/DL (74-106) 147 MG/DL (74-106) H Calcium Level 8.7 MG/DL (8.5-10.1) 8.3 MG/DL (8.5-10.1) L Total Bilirubin 0.4 MG/DL (0.2-1.0) Aspartate Amino Transf (AST/SGOT) 15 U/L (15-37) Alanine Aminotransferase (ALT/SGPT) 16 U/L (12-78) Alkaline Phosphatase 126 U/L (46-116) H Troponin I 0.000 ng/mL (0.000-0.056) 0.000 ng/mL (0.000-0.056) Total Protein 7.1 G/DL (6.4-8.2) Albumin 2.8 G/DL (3.4-5.0) L 2.7 G/DL (3.4-5.0) L Globulin 4.3 g/dL Albumin/Globulin Ratio 0.7 (1.0-2.7) L Phosphorus Level 8.6 MG/DL (2.5-4.9) H Height (Feet): 5 Height (Inches): 7.00 Weight (Pounds): 220 Medications Current Medications Medications (Trade) Dose Ordered Sig/Gabriele Route PRN Reason Start Time Stop Time Status Last Admin Dose Admin Acetaminophen (Tylenol) 650 mg Q4H PRN ORAL Fever 04/19/17 22:15 05/19/17 22:14 Albuterol/ Ipratropium (Albuterol/ Ipratropium) 3 ml EVERY 4 HOURS PRN HHN Shortness of Breath 04/19/17 22:15 04/24/17 22:14 Aspirin (ASA) 81 mg DAILY ORAL 04/20/17 09:00 05/20/17 08:59 04/20/17 09:11 Carvedilol (Coreg) 12.5 mg EVERY 12 HOURS ORAL 04/20/17 09:00 05/20/17 08:59 Clonazepam (KlonoPIN) 0.5 mg Q6H ORAL 04/19/17 22:15 04/26/17 22:14 04/20/17 10:55 Clonidine HCl (Catapres Tab) 0.1 mg BID ORAL 04/20/17 09:00 05/20/17 08:59 04/20/17 09:10 Dextrose (Dextrose 50%) STAT PRN IV Hypoglycemia 04/19/17 22:15 05/19/17 22:14 Escitalopram Oxalate (Lexapro) 10 mg DAILY ORAL 04/20/17 09:00 05/20/17 08:59 04/20/17 09:10 Gabapentin (Neurontin) 100 mg BEDTIME ORAL 04/20/17 21:00 05/20/17 20:59 Heparin Sodium (Porcine) (Heparin 5000 units/ml) 5,000 units EVERY 12 HOURS SUBQ 04/20/17 09:00 05/20/17 08:59 04/20/17 09:27 Lamotrigine (LaMICtal) 100 mg BID ORAL 04/20/17 09:00 05/20/17 08:59 04/20/17 09:10 Levothyroxine Sodium (Synthroid) 25 mcg DAILY@0630 ORAL 04/20/17 06:30 05/20/17 06:29 04/20/17 05:30 Ondansetron HCl (Zofran) 4 mg Q6H PRN IVP Nausea & Vomiting 04/19/17 22:15 05/19/17 22:14 Polyethylene Glycol (Miralax) 17 gm DAILYPRN PRN ORAL Constipation 04/19/17 22:15 05/19/17 22:14 Pravastatin Sodium (Pravachol) 40 mg BEDTIME ORAL 04/20/17 21:00 05/20/17 20:59 Quetiapine Fumarate (SEROquel) 300 mg BEDTIME ORAL 04/20/17 21:00 05/20/17 20:59 Sitagliptin Phosphate (Januvia) 25 mg DAILY ORAL 04/20/17 09:00 05/20/17 08:59 04/20/17 09:10 Temazepam (Restoril) 15 mg HSPRN PRN ORAL Insomnia 04/19/17 22:15 04/26/17 22:14 Assessment/Plan Assessment/Plan ASSESSMENT Bilateral leg numbness diabetic neuropathy L5-S1 disc protrusion ESRD, on HD anemia HTN DM moderate pulmonary HTN bilateral forearm abrasions hypothyroidism psychiatric history PLAN OF CARE MS floor combination man cosnult for HD monitor renal parameters, lytes avoid nephrotoxic neuro eval-per PMD troponin x 2 negative ECG no acute ischemic changes ECHO with pEF 55-60% and RVSP of 59 c/w moderate pulmonary HTN, likely r/t COPD BP management with BB BS management with Januvia continue statin, a/PLT DVT prophylaxis social services counselor on smoking cessation , declined Nicotine patch O2 HHN prn Local bacitracin to abrasion monitor counts, transfuse prn anemia w/up PT/OT supportive care pain management bowel regimen check TSH continue Synthroid case discussed and evaluated by supervising physician Alisha Kemp NP ([facility]) Apr 20, 2017 15:22
--- NOTE | 2017-04-20 15:27 | History & Physical ---
History and Physical History & Physicial Sea Lundberg MD Apr 20, 2017 15:27
[2017-04-20 15:59] VITALS: BP 161/69
[2017-04-20] MEDS ORDERED: Cefepime HCl 1 GM in D5W 55 ML IVPB SCH (16:00)
--- NOTE | 2017-04-20 16:58 | Consultation ---
Consult Note Consult Note I was asked to evaluate the patient for dialysis management Patient has ESRD on HD via left chest permacath Chief Complaint: Multiple Trauma/Fall 56 yo female patient presents to ER BIB ambulance complaining of weakness in bilateral lower extremities for the past few hours. Patient walking in house when legs felt weak and she "fell onto her butt." Patient denies hitting her head, LOC, dizziness, syncope. Patient reports hx of weakness in legs; states being seen by physician for symptoms currently. Patient reports hx of diabetes. Currently taking Gabapentin for nerve symptoms. Patient reports hx of hypothyroidism. Denies chest pain, SOB, fever. Denies bowel or bladder problems. Dialysis patient, seen on Sunday and Fridays. Allergies: Coded Allergies: No Known Allergies (Verified , 08/23/06) Past Medical History: HTN, psych hx, renal disease, dialysis Hx Hypertension: Yes Hx Diabetes: Yes Hx Cancer: Yes - colon cancer Hx Gastrointestinal Problems: Yes - HEP C Hx Dialysis: Yes - M-W-F, ESRD History Of Psychiatric Problem: Yes - DEPRESSION,BIPOLAR Patient interviewed and examined- data reviewed Assessment/Plan Status: --Bilateral leg numbness --diabetic neuropathy --L5-S1 disc protrusion - hypothyroidism - End-stage renal disease, on hemodialysis. - Anemia of chronic kidney disease. - Hypertension./ Pulmonary HTN - Diabetes type 2. - Morbid obesity. - H/O Colon Cancer - H/O Hep C - H/O Depression and Bipolar disease Plan : HD in am Adjust BP medications stop beta blockers- Bradycardia Per orders ANDREAS BARRERA Apr 20, 2017 16:58
[2017-04-20] MEDS ORDERED: HydrALAZINE 25mg tab ORAL PRN (17:15)
[2017-04-20] MEDS: Docusate 100mg cap ORAL SCH (17:41)
[2017-04-20 20:00] VITALS: BP 140/62
[2017-04-20] MEDS: Dyna-Hex 2% Top Sol 2oz TOPIC SCH (21:04)
[2017-04-20] MEDS: QUEtiapine 200mg tab ORAL SCH (21:05)
--- NOTE | 2017-04-20 22:00 | History and Physical Report ---
DATE OF ADMISSION: 04/19/2017 CHIEF COMPLAINT: Weakness of lower extremity. HISTORY OF PRESENT ILLNESS: This is a [id number] very unfortunate female with past medical significant for bipolar disorder, depression, end-stage renal disease, on hemodialysis in [facility] on Sunday, Sunday, and Sunday, history of hypertension, congestive heart failure, chronic anemia due to the chronic disease, diabetes type 2, history of left upper extremity AV fistula placement as well as PermCath placement in the right chest wall, who presented to the hospital complaining about weakness of the lower extremity. While she was walking home yesterday, she felt that the legs are weak and she "fell out of her ." She denies any head trauma to the head, loss of consciousness, dizziness, or syncope. She complained about weakness of the leg, stated that became progressive worsening. She denies any bowel or urine incontinence. She was recently evaluated by her primary doctor, Dr. Xochitl Tan with urinalysis done. Her medical home health was noted urinalysis was from 04/03/2017, noted to have Pseudomonas aeruginosa, susceptible to cefepime and resistant to Levaquin as well as Azactam. Shortly after initial evaluation in the emergency, the patient was admitted to the hospital with lower extremity weakness and urinary tract infection with Pseudomonas. PAST MEDICAL HISTORY/PAST SURGICAL HISTORY: As above, history of end-stage renal disease, on hemodialysis, history of hypertension, diabetes type 2, prior history of colon cancer, history of GERD, end-stage renal disease, on hemodialysis, and history of bipolar depression disorder. The patient had a history of left upper extremity AV fistula placement as well as right chest wall PermCath. MEDICATIONS: Medications at home are significant for aspirin, carvedilol, Clonazepam, Catapres, Lexapro, gabapentin, insulin, lispro, sliding scale, Lamictal, Synthroid, Benicar, pravastatin, Seroquel, Renvela, Januvia, torsemide, Diovan. ALLERGIES: No known drug allergies. SOCIAL HISTORY: The patient denies any smoking, alcohol, or drugs. She is a . She lives alone. FAMILY HISTORY: Noncontributory. REVIEW OF SYSTEMS: Mostly as above. Denies any dysuria or frequency. Denies any hemoptysis or hematochezia. Denies any bright red blood per rectum. Complained about weakness and fatigue. Denies any double vision. Denies any loss of consciousness. Denies any suicidal or homicidal ideation. PHYSICAL EXAMINATION: VITAL SIGNS: On admission from the ER, temperature 97.7 degrees, pulse of 56, respirations 16, and blood pressure 145/69. GENERAL: The patient is awake, responsive, in no acute distress. However, she does not want to talk or she does not answer questions appropriately. Most of the history is taken from the ER chart and prior admission at the [facility] from 12/25/2016. HEAD AND NECK: Pupils equal and reactive to light. Anicteric. Neck was supple. No JVD. LUNGS: Clear. No wheezing or rales. Poor inspiratory effort. HEART: S1 and S2. Regular rhythm. No murmur or gallop. Chest wall has right to the PermCath. ABDOMEN: Soft, nondistended, nontender, and morbidly obese. EXTREMITIES: No cyanosis, clubbing, or edema. Left upper extremity has AV fistula not functioning. In the right upper extremity, has ecchymosis. NEUROLOGIC: Cranial nerves II through XII grossly intact. Motor strength is 5/5 in all the extremities. Gait was not assessed due to the patient's status. LABORATORY AND DIAGNOSTIC DATA: On admission is significant for WBC of 7.3, hemoglobin of 8.5, hematocrit 26, platelet is 190. Sodium 135, potassium 4.6, chloride 102, bicarbonate 16, BUN 102, creatinine is 11.1. GFR is 3.6 Troponin is 0.0. Alkaline phosphatase is 126. A total protein is 7.1. Albumin is 2.8. The patient had an MRI of the lumbar spine was done in the ER shows that no acute injury identified. Small mild degenerative changes was noted. ASSESSMENT: 1. Bilateral lower extremity, most likely secondary to diabetic neuropathy, 2. End-stage renal disease, on hemodialysis. 3. Hypertension. 4. Diabetes type 2, poorly controlled. 5. Chronic congestive heart failure. 6. Bipolar disorder. 7. Pseudomonas urinary tract infection. PLAN: Admit the patient to medical/surgical follow up with Dr. Eamon Solis from Nephrology consultation for dialysis, Dr. Blanka Beckett from Psychiatry, Dr. Vallecillo from Pulmonary Critical Care. We will monitor laboratory closely and start the patient on broad-spectrum antibiotics with cefepime and monitor laboratory cultures. Resume home medications and Accu-Chek with sliding scale. Sea Lundberg M.D. DR: Marta JOB#: [id number] CC:
[2017-04-21] VITALS: BP 141/56
[2017-04-21 04:00] VITALS: BP 139/61
[2017-04-21] MEDS: clonazePAM 0.5mg tab ORAL SCH ×4 (04:15→22:36)
[2017-04-21] MEDS: Levothyroxine 25mcg tab ORAL SCH (05:35)
[2017-04-21 07:58] LABS: % IRON SATURATION 48 % (15-50); IRON 81 ug/dL (50-175); TOTAL IRON BINDING CAPACITY 169 ug/dL (250-450)
[2017-04-21 08:08] LABS: ALANINE AMINOTRANSFERASE 20 U/L (12-78); ALBUMIN 2.4 G/DL (3.4-5.0); ALBUMIN/GLOBULIN RATIO 0.6 (1.0-2.7); ALKALINE PHOSPHATASE 114 U/L (46-116); ANION GAP 17 mmol/L (5-15); ASPARTATE AMINO TRANSFERASE 14 U/L (15-37); BILIRUBIN,TOTAL 0.3 MG/DL (0.2-1.0); BLOOD UREA NITROGEN 105 mg/dL (7-18); CALCIUM 8.8 MG/DL (8.5-10.1); CARBON DIOXIDE 16 MMOL/L (21-32); CHLORIDE 104 MMOL/L (98-107); CHOLESTEROL 194 MG/DL (< 200); CREATININE 11.5 MG/DL (0.55-1.30); FERRITIN 568 NG/ML (8-388); HDL CHOLESTEROL 32 MG/DL (40-60); PHOSPHORUS > 9.0 MG/DL (2.5-4.9); POTASSIUM 5.2 MMOL/L (3.5-5.1); SODIUM 137 MMOL/L (136-145); TRIGLYCERIDES 245 MG/DL (30-150)
[2017-04-21 08:27] VITALS: BP 133/65
[2017-04-21] MEDS: Aspirin Baby 81mg ORAL SCH (08:42)
[2017-04-21] MEDS: sitaGLIPtin 25mg tab ORAL SCH (08:43)
[2017-04-21] MEDS: Docusate 100mg cap ORAL SCH ×3 (08:43→17:29)
[2017-04-21] MEDS: Heparin 5000 units/ml inj SUBQ SCH ×2 (08:44→21:19)
--- NOTE | 2017-04-21 08:47 | Pulmonology Progress Note ---
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 as per nephro monitor renal parameters, lytes avoid nephrotoxic troponin x 2 negative ECG no acute ischemic changes ECHO with pEF 55-60% and RVSP of 59 c/w moderate pulmonary HTN, likely r/t COPD off BB due to bradycardia BP management with hydralazine BS management with Januvia continue statin, a/PLT DVT prophylaxis adolescent counselor on smoking cessation , declined Nicotine patch O2 HHN prn Local bacitracin to abrasion monitor counts, transfuse prn anemia w/up noted PT/OT supportive care pain management bowel regimen TSH WNL, continue Synthroid case discussed and evaluated by supervising physician Subjective Allergies: Coded Allergies: No Known Allergies (Verified , 08/23/06) Objective Last 24 Hour Vital Signs Date Time Temp Pulse Resp B/P (MAP) Pulse Ox O2 Delivery O2 Flow Rate FiO2 04/21/17 08:43 53 133/65 04/21/17 08:27 97.6 53 20 133/65 96 97.6 04/21/17 04:00 98.0 69 20 139/61 98 Room Air 98.0 04/21/17 00:00 97.9 65 18 141/56 99 Room Air 97.9 04/20/17 20:00 97.3 61 20 140/62 97 Room Air 97.3 04/20/17 19:10 60 18 Room Air 04/20/17 17:41 63 161/69 04/20/17 15:59 98.6 63 20 161/69 95 98.6 04/20/17 11:30 98.4 62 20 148/75 97 98.4 04/20/17 09:12 58 18 Room Air 04/20/17 09:10 156/74 04/20/17 09:00 55 156/74 Intake and Output 04/20/17 04/21/17 19:00 07:00 Intake Total 775 ml Output Total 350 ml Balance 425 ml Intake Oral 720 ml IV Total 55 ml Output Urine Total 350 ml # Voids 1 3 Objective General Appearance: no apparent distress, other - awake, alert, responsive obese female in NAD Lines, tubes and drains: peripheral HEENT: normocephalic, atraumatic, anicteric Neck: non-tender, normal alignment, supple Respiratory/Chest: chest wall non-tender, lungs clear, normal breath sounds, no respiratory distress, no accessory muscle use, other - R chest HD catheter Cardiovascular/Chest: normal peripheral pulses, normal rate, regular rhythm, no JVD Abdomen: normal bowel sounds, non tender, soft - obese Extremities: no calf tenderness Neurologic: abnormal gait, alert, oriented x 3, responsive Musculoskeletal: normal muscle bulk Laboratory Tests 04/20/17 10:20: White Blood Count 8.1, Red Blood Count 2.89L, Hemoglobin 8.5L, Hematocrit 25.8L , Mean Corpuscular Volume 90, Mean Corpuscular Hemoglobin 29.6, Mean Corpuscular Hemoglobin Concent 33.0, Red Cell Distribution Width 14.3, Platelet Count 179, Mean Platelet Volume 6.5, Neutrophils (%) (Auto) 71.7, Lymphocytes (% ) (Auto) 16.7L, Monocytes (%) (Auto) 7.5, Eosinophils (%) (Auto) 3.2H, Basophils (%) (Auto) 1.0, Sodium Level 137, Potassium Level 5.0, Chloride Level 103, Carbon Dioxide Level 16L, Anion Gap 18H, Blood Urea Nitrogen 99H, Creatinine 6.5H, Estimat Glomerular Filtration Rate 6.6, Glucose Level 147H, Calcium Level 8.3L, Phosphorus Level 8.6H, Troponin I 0.000, Albumin 2.7L 04/20/17 10:30: C-Reactive Protein, Quantitative < 0.4 04/21/17 05:20: Sodium Level 137, Potassium Level 5.2H, Chloride Level 104, Carbon Dioxide Level 16L, Anion Gap 17H, Blood Urea Nitrogen 105H, Creatinine 11.5#H, Estimat Glomerular Filtration Rate 3.4, Glucose Level 94, Calcium Level 8.8, Phosphorus Level > 9.0H, Troponin I [Pending], Albumin 2.4L, Prothrombin Time 10.8, Prothromb Time International Ratio 1.0, Activated Partial Thromboplast Time 27, Hemoglobin A1c 5.5, Uric Acid 5.9, Magnesium Level 2.8H, Iron Level 81, Total Iron Binding Capacity 169L, Percent Iron Saturation 48, Unsaturated Iron Binding 88L, Ferritin 568H, Total Bilirubin 0.3, Aspartate Amino Transf (AST/ SGOT) 14L, Alanine Aminotransferase (ALT/SGPT) 20, Alkaline Phosphatase 114, Pro -B-Type Natriuretic Peptide 8526H, Total Protein 6.5, Globulin 4.1, Albumin/ Globulin Ratio 0.6L, Triglycerides Level 245H, Cholesterol Level 194, LDL Cholesterol 115H, HDL Cholesterol 32L, Cholesterol/HDL Ratio 6.1H, Vitamin B12 Level 580, Folate 5.9L, Thyroid Stimulating Hormone (TSH) 1.833 Current Medications Medications (Trade) Dose Ordered Sig/Gabriele Route PRN Reason Start Time Stop Time Status Last Admin Dose Admin Acetaminophen (Tylenol) 650 mg Q4H PRN ORAL Fever 04/19/17 22:15 05/19/17 22:14 Albuterol/ Ipratropium (Albuterol/ Ipratropium) 3 ml EVERY 4 HOURS PRN HHN Shortness of Breath 04/19/17 22:15 04/24/17 22:14 Aspirin (ASA) 81 mg DAILY ORAL 04/20/17 09:00 05/20/17 08:59 04/21/17 08:42 Cefepime HCl 1 gm/ Dextrose 55 ml @ 110 mls/hr Q24H IVPB 04/20/17 16:00 04/27/17 15:59 04/20/17 16:35 Chlorhexidine Gluconate (Cassia-Hex 2%) 1 applic Q24H TOPIC 04/20/17 20:00 05/20/17 19:59 04/20/17 21:04 Clonazepam (KlonoPIN) 0.5 mg Q6H ORAL 04/19/17 22:15 04/26/17 22:14 04/21/17 04:15 Dextrose (Dextrose 50%) STAT PRN IV Hypoglycemia 04/19/17 22:15 05/19/17 22:14 Docusate Sodium (Colace) 100 mg THREE TIMES A DAY ORAL 04/20/17 18:00 05/20/17 17:59 04/21/17 08:43 Escitalopram Oxalate (Lexapro) 10 mg DAILY ORAL 04/20/17 09:00 05/20/17 08:59 04/21/17 08:43 Gabapentin (Neurontin) 300 mg BEDTIME ORAL 04/20/17 21:00 05/20/17 20:59 04/20/17 21:04 Heparin Sodium (Porcine) (Heparin 5000 units/ml) 5,000 units EVERY 12 HOURS SUBQ 04/20/17 09:00 05/20/17 08:59 04/21/17 08:44 Hydralazine HCl (Apresoline) 25 mg Q4HR PRN ORAL bp over 160 syst 04/20/17 17:15 05/20/17 17:14 Lamotrigine (LaMICtal) 100 mg BID ORAL 04/20/17 09:00 05/20/17 08:59 04/21/17 08:42 Lansoprazole (Prevacid) 30 mg DAILY ORAL 04/20/17 17:15 05/20/17 17:14 04/21/17 08:43 Levothyroxine Sodium (Synthroid) 25 mcg DAILY@0630 ORAL 04/20/17 06:30 05/20/17 06:29 04/21/17 05:35 Nifedipine (Procardia XL) 60 mg DAILY ORAL 04/21/17 09:00 05/21/17 08:59 04/21/17 08:43 Ondansetron HCl (Zofran) 4 mg Q6H PRN IVP Nausea & Vomiting 04/19/17 22:15 05/19/17 22:14 Polyethylene Glycol (Miralax) 17 gm DAILYPRN PRN ORAL Constipation 04/19/17 22:15 05/19/17 22:14 Pravastatin Sodium (Pravachol) 40 mg BEDTIME ORAL 04/20/17 21:00 05/20/17 20:59 04/20/17 21:04 Quetiapine Fumarate (SEROquel) 300 mg BEDTIME ORAL 04/20/17 21:00 05/20/17 20:59 04/20/17 21:05 Sevelamer Carbonate (Renvela) 1,600 mg THREE TIMES A DAY ORAL 04/20/17 18:00 05/20/17 17:59 04/21/17 08:43 Sitagliptin Phosphate (Januvia) 25 mg DAILY ORAL 04/20/17 09:00 05/20/17 08:59 04/21/17 08:43 Temazepam (Restoril) 15 mg HSPRN PRN ORAL Insomnia 04/19/17 22:15 04/26/17 22:14 Alisha Kemp NP ([facility]) Apr 21, 2017 08:47
[2017-04-21 11:34] VITALS: BP 156/75
--- NOTE | 2017-04-21 12:44 | Nephrology Progress Note ---
Assessment/Plan Problem List: (1) ESRD (end stage renal disease) on dialysis (2) Bradycardia (3) Fall Assessment Status: --Bilateral leg numbness --diabetic neuropathy --L5-S1 disc protrusion - hypothyroidism - End-stage renal disease, on hemodialysis. - Anemia of chronic kidney disease. - Hypertension./ Pulmonary HTN - Diabetes type 2. - Morbid obesity. - H/O Colon Cancer - H/O Hep C - H/O Depression and Bipolar disease Plan Plan : HD today Adjust BP medications stop beta blockers- Bradycardia Per orders Subjective ROS Limited/Unobtainable: No Constitutional: Reports: malaise Objective Objective Last 24 Hour Vital Signs Date Time Temp Pulse Resp B/P (MAP) Pulse Ox O2 Delivery O2 Flow Rate FiO2 04/21/17 11:34 98.5 56 20 156/75 97 98.5 04/21/17 08:43 53 133/65 04/21/17 08:39 54 16 Room Air 21 04/21/17 08:27 97.6 53 20 133/65 96 97.6 04/21/17 04:00 98.0 69 20 139/61 98 Room Air 98.0 04/21/17 00:00 97.9 65 18 141/56 99 Room Air 97.9 04/20/17 20:00 97.3 61 20 140/62 97 Room Air 97.3 04/20/17 19:10 60 18 Room Air 04/20/17 17:41 63 161/69 04/20/17 15:59 98.6 63 20 161/69 95 98.6 Intake and Output 04/20/17 04/21/17 19:00 07:00 Intake Total 775 ml Output Total 350 ml Balance 425 ml Intake Oral 720 ml IV Total 55 ml Output Urine Total 350 ml # Voids 1 3 Laboratory Tests 04/21/17 05:20: Prothrombin Time 10.8, Prothromb Time International Ratio 1.0, Activated Partial Thromboplast Time 27, Sodium Level 137, Potassium Level 5.2H, Chloride Level 104, Carbon Dioxide Level 16L, Anion Gap 17H, Blood Urea Nitrogen 105H, Creatinine 11.5#H, Estimat Glomerular Filtration Rate 3.4, Glucose Level 94, Hemoglobin A1c 5.5, Uric Acid 5.9, Calcium Level 8.8, Phosphorus Level > 9.0H, Magnesium Level 2.8H, Iron Level 81, Total Iron Binding Capacity 169L, Percent Iron Saturation 48, Unsaturated Iron Binding 88L, Ferritin 568H, Total Bilirubin 0.3, Aspartate Amino Transf (AST/SGOT) 14L, Alanine Aminotransferase ( ALT/SGPT) 20, Alkaline Phosphatase 114, Troponin I 0.035, Pro-B-Type Natriuretic Peptide 8526H, Total Protein 6.5, Albumin 2.4L, Globulin 4.1, Albumin/Globulin Ratio 0.6L, Triglycerides Level 245H, Cholesterol Level 194, LDL Cholesterol 115H, HDL Cholesterol 32L, Cholesterol/HDL Ratio 6.1H, Vitamin B12 Level 580, Folate 5.9L, Thyroid Stimulating Hormone (TSH) 1.833 Height (Feet): 5 Height (Inches): 7.00 Weight (Pounds): 220 General Appearance: no apparent distress Objective no change ANDREAS BARRERA Apr 21, 2017 12:44
[2017-04-21] MEDS: HydrALAZINE 25mg tab ORAL SCH ×2 (14:00→21:17)
--- NOTE | 2017-04-21 15:13 | Internal Med Progress Note ---
Subjective Date of Service: Apr 21, 2017 Physician Name Maria T Monteiro Attending Physician Sea Lundberg MD Current Medications Medications (Trade) Dose Ordered Sig/Gabriele Route PRN Reason Start Time Stop Time Status Last Admin Dose Admin Acetaminophen (Tylenol) 650 mg Q4H PRN ORAL Fever 04/19/17 22:15 05/19/17 22:14 Albuterol/ Ipratropium (Albuterol/ Ipratropium) 3 ml EVERY 4 HOURS PRN HHN Shortness of Breath 04/19/17 22:15 04/24/17 22:14 Aspirin (ASA) 81 mg DAILY ORAL 04/20/17 09:00 05/20/17 08:59 04/21/17 08:42 Cefepime HCl 1 gm/ Sodium Chloride 55 ml @ 110 mls/hr Q24H IVPB 04/21/17 16:00 04/28/17 15:59 Chlorhexidine Gluconate (Cassia-Hex 2%) 1 applic Q24H TOPIC 04/20/17 20:00 05/20/17 19:59 04/20/17 21:04 Clonazepam (KlonoPIN) 0.5 mg Q6H ORAL 04/19/17 22:15 04/26/17 22:14 04/21/17 10:28 Dextrose (Dextrose 50%) STAT PRN IV Hypoglycemia 04/19/17 22:15 05/19/17 22:14 Docusate Sodium (Colace) 100 mg THREE TIMES A DAY ORAL 04/20/17 18:00 05/20/17 17:59 04/21/17 12:22 Escitalopram Oxalate (Lexapro) 10 mg DAILY ORAL 04/20/17 09:00 05/20/17 08:59 04/21/17 08:43 Gabapentin (Neurontin) 300 mg BEDTIME ORAL 04/20/17 21:00 05/20/17 20:59 04/20/17 21:04 Heparin Sodium (Porcine) (Heparin 5000 units/ml) 5,000 units EVERY 12 HOURS SUBQ 04/20/17 09:00 05/20/17 08:59 04/21/17 08:44 Hydralazine HCl (Apresoline) 25 mg Q4HR PRN ORAL bp over 160 syst 04/20/17 17:15 05/20/17 17:14 Hydralazine HCl (Apresoline) 25 mg Q8HR ORAL 04/21/17 14:00 05/21/17 13:59 Lamotrigine (LaMICtal) 100 mg BID ORAL 04/20/17 09:00 05/20/17 08:59 04/21/17 08:42 Lansoprazole (Prevacid) 30 mg DAILY ORAL 04/20/17 17:15 05/20/17 17:14 04/21/17 08:43 Levothyroxine Sodium (Synthroid) 25 mcg DAILY@0630 ORAL 04/20/17 06:30 05/20/17 06:29 04/21/17 05:35 Nifedipine (Procardia XL) 60 mg DAILY ORAL 04/21/17 09:00 05/21/17 08:59 04/21/17 08:43 Ondansetron HCl (Zofran) 4 mg Q6H PRN IVP Nausea & Vomiting 04/19/17 22:15 05/19/17 22:14 Polyethylene Glycol (Miralax) 17 gm DAILYPRN PRN ORAL Constipation 04/19/17 22:15 05/19/17 22:14 Pravastatin Sodium (Pravachol) 40 mg BEDTIME ORAL 04/20/17 21:00 05/20/17 20:59 04/20/17 21:04 Quetiapine Fumarate (SEROquel) 300 mg BEDTIME ORAL 04/20/17 21:00 05/20/17 20:59 04/20/17 21:05 Sevelamer Carbonate (Renvela) 2,400 mg THREE TIMES A DAY ORAL 04/21/17 18:00 05/21/17 17:59 Sitagliptin Phosphate (Januvia) 25 mg DAILY ORAL 04/20/17 09:00 05/20/17 08:59 04/21/17 08:43 Temazepam (Restoril) 15 mg HSPRN PRN ORAL Insomnia 04/19/17 22:15 04/26/17 22:14 Allergies: Coded Allergies: No Known Allergies (Verified , 08/23/06) ROS Limited/Unobtainable: No Constitutional: Reports: weakness HEENT: Reports: no symptoms Cardiovascular: Reports: no symptoms Respiratory: Reports: no symptoms Gastrointestinal/Abdominal: Reports: no symptoms Genitourinary: Reports: no symptoms Neurologic/Psychiatric: Reports: no symptoms Subjective 56 YO F admitted with bilateral leg weakness. Cover for Int Med-Dr Lundberg. Objective Last Vital Signs Date Time Temp Pulse Resp B/P (MAP) Pulse Ox O2 Delivery O2 Flow Rate FiO2 04/21/17 14:00 124/61 04/21/17 11:34 98.5 56 20 97 98.5 04/21/17 08:39 Room Air 21 General Appearance: WD/WN, no apparent distress, alert EENT: PERRL/EOMI, normal ENT inspection Neck: non-tender, normal alignment, supple, normal inspection Cardiovascular: normal peripheral pulses, normal rate, regular rhythm, no gallop/murmur, no JVD Respiratory/Chest: chest wall non-tender, lungs clear, normal breath sounds, no respiratory distress, no accessory muscle use Abdomen: normal bowel sounds, non tender, soft, no organomegaly, no mass Extremities: normal range of motion, non-tender 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, no motor/sensory deficits Skin: normal pigmentation, warm/dry Laboratory Tests Test 04/21/17 05:20 Prothrombin Time 10.8 SEC (9.30-11.50) Prothromb Time International Ratio 1.0 (0.9-1.1) Activated Partial Thromboplast Time 27 SEC (23-33) Sodium Level 137 MMOL/L (136-145) Potassium Level 5.2 MMOL/L (3.5-5.1) H Chloride Level 104 MMOL/L (98-107) Carbon Dioxide Level 16 MMOL/L (21-32) L Anion Gap 17 mmol/L (5-15) H Blood Urea Nitrogen 105 mg/dL (7-18) H Creatinine 11.5 MG/DL (0.55-1.30) #H Estimat Glomerular Filtration Rate 3.4 mL/min (>60) Glucose Level 94 MG/DL (74-106) Hemoglobin A1c 5.5 % (4.3-6.0) Uric Acid 5.9 MG/DL (2.6-7.2) Calcium Level 8.8 MG/DL (8.5-10.1) Phosphorus Level > 9.0 MG/DL (2.5-4.9) H Magnesium Level 2.8 MG/DL (1.8-2.4) H Iron Level 81 ug/dL (50-175) Total Iron Binding Capacity 169 ug/dL (250-450) L Percent Iron Saturation 48 % (15-50) Unsaturated Iron Binding 88 ug/dL (112-346) L Ferritin 568 NG/ML (8-388) H Total Bilirubin 0.3 MG/DL (0.2-1.0) Aspartate Amino Transf (AST/SGOT) 14 U/L (15-37) L Alanine Aminotransferase (ALT/SGPT) 20 U/L (12-78) Alkaline Phosphatase 114 U/L (46-116) Troponin I 0.035 ng/mL (0.000-0.056) Pro-B-Type Natriuretic Peptide 8526 pg/mL (0-125) H Total Protein 6.5 G/DL (6.4-8.2) Albumin 2.4 G/DL (3.4-5.0) L Globulin 4.1 g/dL Albumin/Globulin Ratio 0.6 (1.0-2.7) L Triglycerides Level 245 MG/DL (30-150) H Cholesterol Level 194 MG/DL (< 200) LDL Cholesterol 115 mg/dL (<100) H HDL Cholesterol 32 MG/DL (40-60) L Cholesterol/HDL Ratio 6.1 (3.3-4.4) H Vitamin B12 Level 580 PG/ML (193-986) Folate 5.9 NG/ML (8.6-58.9) L Thyroid Stimulating Hormone (TSH) 1.833 uiU/mL (0.358-3.740) Intake and Output 04/20/17 04/21/17 19:00 07:00 Intake Total 775 ml Output Total 350 ml Balance 425 ml Intake Oral 720 ml IV Total 55 ml Output Urine Total 350 ml # Voids 1 3 Assessment/Plan Problem List: (1) Weakness of both legs Assessment & Plan: ?diabetic perip neuropathy? (2) Inability to walk (3) CHF (congestive heart failure) (4) Diabetes mellitus, type II Assessment & Plan: Continue januvia (5) ESRD (end stage renal disease) on dialysis Assessment & Plan: Hemodialysis today per nephrology (6) Bipolar depression Assessment & Plan: Continue lexapro and seroquel (7) Hypothyroidism Assessment & Plan: Continue levoxyl (8) HTN (hypertension) Assessment & Plan: Continue hydralazine and nifedipine (9) Hypercholesteremia Assessment & Plan: Continue pravachol Status: not improved MARIA T MONTEIRO Apr 21, 2017 15:13
[2017-04-21 15:55] VITALS: BP 131/68
[2017-04-21] MEDS: Cefepime HCl 1 GM in NS 55 ML IVPB SCH (16:26)
[2017-04-21 21:00] VITALS: BP 145/73
[2017-04-21] MEDS: Dyna-Hex 2% Top Sol 2oz TOPIC SCH (21:16)
[2017-04-21] MEDS: QUEtiapine 200mg tab ORAL SCH (21:17)
--- NOTE | 2017-04-21 23:07 | Consultation ---
History of Present Illness General Date patient seen: Apr 20, 2017 Chief Complaint: Multiple Trauma/Fall Referring physician: dr Lundberg Reason for Consultation: inpatient management , COPD Present Illness HPI 56 year old female with hx of ESRD, on HD, colon Ca, hepatitis C, HTN, COPD, smoker, hypothyroidism, psychotic d/o and depression, presented to ED with c/o BLE weakness for the past few days/ the pt endorses anxiety and depressive sxs. the pt is not psychotic nor manic. no si/hi. Allergies: Coded Allergies: No Known Allergies (Verified , 08/23/06) Medication History Scheduled Aspirin* (Aspirin*), 81 MG ORAL DAILY, (Reported) Aspirin* (Aspirin*), 81 MG ORAL DAILY, (Reported) Carvedilol* (Carvedilol*), 12.5 MG ORAL EVERY 12 HOURS, (Reported) Carvedilol* (Carvedilol*), 12.5 MG ORAL EVERY 12 HOURS, (Reported) Clonazepam* (Klonopin*), 0.5 MG ORAL Q6H, (Reported) Clonazepam* (Klonopin*), 1 MG ORAL Q6H, (Reported) Clonidine Hcl* (Catapres*), 0.1 MG ORAL EVERY 6 HOURS, (Reported) Clonidine Hcl* (Catapres*), 0.1 MG ORAL BID, (Reported) Escitalopram Oxalate* (Lexapro*), 10 MG ORAL DAILY, (Reported) Escitalopram Oxalate* (Lexapro*), 20 MG ORAL DAILY, (Reported) Gabapentin* (Gabapentin*), 300 MG ORAL BEDTIME, (Reported) Gabapentin* (Gabapentin*), 100 MG ORAL BEDTIME, (Reported) Lamotrigine* (Lamictal*), 100 MG ORAL BID, (Reported) Lamotrigine* (Lamictal*), 100 MG ORAL BID, (Reported) Levothyroxine Sodium* (Synthroid*), Unknown Dose ORAL DAILY, (Reported) Olmesartan Medoxomil (Benicar), 5 MG ORAL DAILY, (Reported) Pravastatin Sod* (Pravastatin Sod*), 40 MG ORAL BEDTIME, (Reported) Pravastatin Sodium (Pravachol), 40 MG ORAL BEDTIME, (Reported) Quetiapine Fumarate* (Quetiapine Fumarate*), 300 MG ORAL BEDTIME, (Reported) Sevelamer Carbonate* (Renvela*), 4 TAB ORAL THREE TIMES A DAY, (Reported) Sitagliptin* (Januvia*), 25 MG ORAL DAILY, (Reported) Sitagliptin* (Januvia*), 25 MG ORAL DAILY, (Reported) Torsemide* (Demadex*), 100 MG PO DAILY, (Reported) Valsartan (Diovan), 80 MG ORAL DAILY, (Reported) Miscellaneous Medications Insulin Lispro (Humalog), 0 SUBQ, (Reported) Patient History Limited by: medical condition History Provided By: Patient, Medical Record, PMD Healthcare decision maker Resuscitation status Advanced Directive on File No Past Medical/Surgical History Past Medical/Surgical History: (1) Costochondritis (2) GERD (gastroesophageal reflux disease) (3) Chest pain (4) Anemia in chronic renal disease (5) Syncope (6) Renal failure (ARF), acute on chronic (7) Clotted renal dialysis arteriovenous graft (8) Abrasion (9) Bilateral leg numbness (10) Dialysis patient (11) Fall (12) Multiple injuries due to trauma (13) Bradycardia (14) ESRD (end stage renal disease) on dialysis (15) Diabetes mellitus, type II (16) CHF (congestive heart failure) (17) Bipolar depression (18) Inability to walk (19) Weakness of both legs (20) Hypothyroidism (21) Hypercholesteremia (22) HTN (hypertension) Review of Systems Psychiatric: Reports: prior hx, anxiety, depressed feelings, emotional problems , hallucinations Physical Exam General Appearance: no apparent distress, alert Neurologic: alert, oriented x 3, responsive, depressed affect Last 24 Hour Vital Signs Date Time Temp Pulse Resp B/P (MAP) Pulse Ox O2 Delivery O2 Flow Rate FiO2 04/21/17 21:17 145/73 04/21/17 21:00 97.3 64 17 145/73 98 97.3 04/21/17 16:05 Room Air 04/21/17 15:55 97.9 57 20 131/68 97 97.9 04/21/17 14:00 124/61 04/21/17 13:05 Room Air 04/21/17 11:34 98.5 56 20 156/75 97 98.5 04/21/17 08:43 53 133/65 04/21/17 08:39 54 16 Room Air 21 04/21/17 08:27 97.6 53 20 133/65 96 97.6 04/21/17 04:00 98.0 69 20 139/61 98 Room Air 98.0 04/21/17 00:00 97.9 65 18 141/56 99 Room Air 97.9 Intake and Output 04/20/17 04/21/17 19:00 07:00 Intake Total 775 ml Output Total 350 ml Balance 425 ml Intake Oral 720 ml IV Total 55 ml Output Urine Total 350 ml # Voids 1 3 Laboratory Tests Test 04/21/17 05:20 Prothrombin Time 10.8 SEC (9.30-11.50) Prothromb Time International Ratio 1.0 (0.9-1.1) Activated Partial Thromboplast Time 27 SEC (23-33) Sodium Level 137 MMOL/L (136-145) Potassium Level 5.2 MMOL/L (3.5-5.1) H Chloride Level 104 MMOL/L (98-107) Carbon Dioxide Level 16 MMOL/L (21-32) L Anion Gap 17 mmol/L (5-15) H Blood Urea Nitrogen 105 mg/dL (7-18) H Creatinine 11.5 MG/DL (0.55-1.30) #H Estimat Glomerular Filtration Rate 3.4 mL/min (>60) Glucose Level 94 MG/DL (74-106) Hemoglobin A1c 5.5 % (4.3-6.0) Uric Acid 5.9 MG/DL (2.6-7.2) Calcium Level 8.8 MG/DL (8.5-10.1) Phosphorus Level > 9.0 MG/DL (2.5-4.9) H Magnesium Level 2.8 MG/DL (1.8-2.4) H Iron Level 81 ug/dL (50-175) Total Iron Binding Capacity 169 ug/dL (250-450) L Percent Iron Saturation 48 % (15-50) Unsaturated Iron Binding 88 ug/dL (112-346) L Ferritin 568 NG/ML (8-388) H Total Bilirubin 0.3 MG/DL (0.2-1.0) Aspartate Amino Transf (AST/SGOT) 14 U/L (15-37) L Alanine Aminotransferase (ALT/SGPT) 20 U/L (12-78) Alkaline Phosphatase 114 U/L (46-116) Troponin I 0.035 ng/mL (0.000-0.056) Pro-B-Type Natriuretic Peptide 8526 pg/mL (0-125) H Total Protein 6.5 G/DL (6.4-8.2) Albumin 2.4 G/DL (3.4-5.0) L Globulin 4.1 g/dL Albumin/Globulin Ratio 0.6 (1.0-2.7) L Triglycerides Level 245 MG/DL (30-150) H Cholesterol Level 194 MG/DL (< 200) LDL Cholesterol 115 mg/dL (<100) H HDL Cholesterol 32 MG/DL (40-60) L Cholesterol/HDL Ratio 6.1 (3.3-4.4) H Vitamin B12 Level 580 PG/ML (193-986) Folate 5.9 NG/ML (8.6-58.9) L Thyroid Stimulating Hormone (TSH) 1.833 uiU/mL (0.358-3.740) Height (Feet): 5 Height (Inches): 7.00 Weight (Pounds): 220 Medications Current Medications Medications (Trade) Dose Ordered Sig/Gabriele Route PRN Reason Start Time Stop Time Status Last Admin Dose Admin Acetaminophen (Tylenol) 650 mg Q4H PRN ORAL Fever 04/19/17 22:15 05/19/17 22:14 Albuterol/ Ipratropium (Albuterol/ Ipratropium) 3 ml EVERY 4 HOURS PRN HHN Shortness of Breath 04/19/17 22:15 04/24/17 22:14 Aspirin (ASA) 81 mg DAILY ORAL 04/20/17 09:00 05/20/17 08:59 04/21/17 08:42 Cefepime HCl 1 gm/ Sodium Chloride 55 ml @ 110 mls/hr Q24H IVPB 04/21/17 16:00 04/28/17 15:59 04/21/17 16:26 Chlorhexidine Gluconate (Cassia-Hex 2%) 1 applic Q24H TOPIC 04/20/17 20:00 05/20/17 19:59 04/21/17 21:16 Clonazepam (KlonoPIN) 0.5 mg Q6H ORAL 04/19/17 22:15 04/26/17 22:14 04/21/17 22:36 Dextrose (Dextrose 50%) STAT PRN IV Hypoglycemia 04/19/17 22:15 05/19/17 22:14 Docusate Sodium (Colace) 100 mg THREE TIMES A DAY ORAL 04/20/17 18:00 05/20/17 17:59 04/21/17 17:29 Escitalopram Oxalate (Lexapro) 10 mg DAILY ORAL 04/20/17 09:00 05/20/17 08:59 04/21/17 08:43 Gabapentin (Neurontin) 300 mg BEDTIME ORAL 04/20/17 21:00 05/20/17 20:59 04/21/17 21:17 Heparin Sodium (Porcine) (Heparin 5000 units/ml) 5,000 units EVERY 12 HOURS SUBQ 04/20/17 09:00 05/20/17 08:59 04/21/17 21:19 Hydralazine HCl (Apresoline) 25 mg Q4HR PRN ORAL bp over 160 syst 04/20/17 17:15 05/20/17 17:14 Hydralazine HCl (Apresoline) 25 mg Q8HR ORAL 04/21/17 14:00 05/21/17 13:59 04/21/17 21:17 Lamotrigine (LaMICtal) 100 mg BID ORAL 04/20/17 09:00 05/20/17 08:59 04/21/17 17:29 Lansoprazole (Prevacid) 30 mg DAILY ORAL 04/20/17 17:15 05/20/17 17:14 04/21/17 08:43 Levothyroxine Sodium (Synthroid) 25 mcg DAILY@0630 ORAL 04/20/17 06:30 05/20/17 06:29 04/21/17 05:35 Nifedipine (Procardia XL) 60 mg DAILY ORAL 04/21/17 09:00 05/21/17 08:59 04/21/17 08:43 Ondansetron HCl (Zofran) 4 mg Q6H PRN IVP Nausea & Vomiting 04/19/17 22:15 05/19/17 22:14 Polyethylene Glycol (Miralax) 17 gm DAILYPRN PRN ORAL Constipation 04/19/17 22:15 05/19/17 22:14 Pravastatin Sodium (Pravachol) 40 mg BEDTIME ORAL 04/20/17 21:00 05/20/17 20:59 04/21/17 21:17 Quetiapine Fumarate (SEROquel) 300 mg BEDTIME ORAL 04/20/17 21:00 05/20/17 20:59 04/21/17 21:17 Sevelamer Carbonate (Renvela) 2,400 mg THREE TIMES A DAY ORAL 04/21/17 18:00 05/21/17 17:59 04/21/17 17:29 Sitagliptin Phosphate (Januvia) 25 mg DAILY ORAL 04/20/17 09:00 05/20/17 08:59 04/21/17 08:43 Temazepam (Restoril) 15 mg HSPRN PRN ORAL Insomnia 04/19/17 22:15 04/26/17 22:14 Assessment/Plan Status: stable Assessment/Plan mdd anxiety d/o -seroquel 300mg -klonovan -Blanka Castellano M.D. Apr 21, 2017 23:07
--- NOTE | 2017-04-21 23:09 | General Progress Note ---
Assessment/Plan Assessment/Plan Assessment/Plan mdd anxiety d/o -seroquel 300mg -klonopin -lexapro Subjective Date patient seen: Apr 21, 2017 Neurologic/Psychiatric: Reports: anxiety, depressed, emotional problems Allergies: Coded Allergies: No Known Allergies (Verified , 08/23/06) Objective Last 24 Hour Vital Signs Date Time Temp Pulse Resp B/P (MAP) Pulse Ox O2 Delivery O2 Flow Rate FiO2 04/21/17 21:17 145/73 04/21/17 21:00 97.3 64 17 145/73 98 97.3 04/21/17 16:05 Room Air 04/21/17 15:55 97.9 57 20 131/68 97 97.9 04/21/17 14:00 124/61 04/21/17 13:05 Room Air 04/21/17 11:34 98.5 56 20 156/75 97 98.5 04/21/17 08:43 53 133/65 04/21/17 08:39 54 16 Room Air 21 04/21/17 08:27 97.6 53 20 133/65 96 97.6 04/21/17 04:00 98.0 69 20 139/61 98 Room Air 98.0 04/21/17 00:00 97.9 65 18 141/56 99 Room Air 97.9 Intake and Output 04/20/17 04/21/17 19:00 07:00 Intake Total 775 ml Output Total 350 ml Balance 425 ml Intake Oral 720 ml IV Total 55 ml Output Urine Total 350 ml # Voids 1 3 Laboratory Tests 04/21/17 05:20: Prothrombin Time 10.8, Prothromb Time International Ratio 1.0, Activated Partial Thromboplast Time 27, Sodium Level 137, Potassium Level 5.2H, Chloride Level 104, Carbon Dioxide Level 16L, Anion Gap 17H, Blood Urea Nitrogen 105H, Creatinine 11.5#H, Estimat Glomerular Filtration Rate 3.4, Glucose Level 94, Hemoglobin A1c 5.5, Uric Acid 5.9, Calcium Level 8.8, Phosphorus Level > 9.0H, Magnesium Level 2.8H, Iron Level 81, Total Iron Binding Capacity 169L, Percent Iron Saturation 48, Unsaturated Iron Binding 88L, Ferritin 568H, Total Bilirubin 0.3, Aspartate Amino Transf (AST/SGOT) 14L, Alanine Aminotransferase ( ALT/SGPT) 20, Alkaline Phosphatase 114, Troponin I 0.035, Pro-B-Type Natriuretic Peptide 8526H, Total Protein 6.5, Albumin 2.4L, Globulin 4.1, Albumin/Globulin Ratio 0.6L, Triglycerides Level 245H, Cholesterol Level 194, LDL Cholesterol 115H, HDL Cholesterol 32L, Cholesterol/HDL Ratio 6.1H, Vitamin B12 Level 580, Folate 5.9L, Thyroid Stimulating Hormone (TSH) 1.833 Height (Feet): 5 Height (Inches): 7.00 Weight (Pounds): 220 General Appearance: no apparent distress, alert Neurologic: alert, oriented x 3, responsive, depressed affect Blanka Beckett M.D. Apr 21, 2017 23:09
[2017-04-22 04:00] VITALS: BP 151/94
[2017-04-22] MEDS: clonazePAM 0.5mg tab ORAL SCH ×4 (04:17→22:10)
[2017-04-22] MEDS: HydrALAZINE 25mg tab ORAL SCH ×3 (06:06→21:39)
[2017-04-22] MEDS: Levothyroxine 25mcg tab ORAL SCH (06:06)
[2017-04-22 08:40] LABS: BASOPHILS % (AUTO) 1.3 % (0.0-2.0); EOSINOPHILS % (AUTO) 6.8 % (0.0-3.0); HEMOGLOBIN 8.2 G/DL (12.0-16.0); LYMPHOCYTES % (AUTO) 24.9 % (20.0-45.0); MEAN CORPUSCULAR VOLUME 89 FL (80-99); MONOCYTES % (AUTO) 10.6 % (1.0-10.0); NEUTROPHILS % (AUTO) 56.5 % (45.0-75.0); PLATELET COUNT 145 K/UL (150-450); RED BLOOD COUNT 2.81 M/UL (4.20-5.40); RED CELL DISTRIBUTION WIDTH 13.6 % (11.6-14.8); WHITE BLOOD COUNT 5.4 K/UL (4.8-10.8)
[2017-04-22 09:00] VITALS: BP 105/56
[2017-04-22] MEDS: Docusate 100mg cap ORAL SCH ×3 (09:09→18:37)
[2017-04-22] MEDS: Aspirin Baby 81mg ORAL SCH (09:09)
[2017-04-22] MEDS: sitaGLIPtin 25mg tab ORAL SCH (09:10)
[2017-04-22 09:19] LABS: ANION GAP 14 mmol/L (5-15); BLOOD UREA NITROGEN 98 mg/dL (7-18); CALCIUM 8.7 MG/DL (8.5-10.1); CARBON DIOXIDE 20 MMOL/L (21-32); CHLORIDE 103 MMOL/L (98-107); CREATININE 10.5 MG/DL (0.55-1.30); POTASSIUM 4.6 MMOL/L (3.5-5.1); SODIUM 137 MMOL/L (136-145)
--- NOTE | 2017-04-22 09:52 | Pulmonology Progress Note ---
Assessment/Plan Assessment/Plan ASSESSMENT Bilateral leg numbness diabetic neuropathy L5-S1 disc protrusion ESRD, on HD anemia HTN DM moderate pulmonary HTN bilateral forearm abrasions hypothyroidism psychiatric history hyperlipidemia PLAN OF CARE MS floor patient support assistant follows HD as per nephro monitor renal parameters, lytes avoid nephrotoxic troponin x 2 negative ECG no acute ischemic changes ECHO with pEF 55-60% and RVSP of 59 c/w moderate pulmonary HTN, likely r/t COPD off BB due to bradycardia BP management with hydralazine BS management with Januvia continue statin, a/PLT lipid apbnerl with elevated LDL and TG insurance counselor o low fat low cholesterol diabetic renal diet dietary eval for diet DVT prophylaxis insurance counselor on smoking cessation , declined Nicotine patch O2 HHN prn Local bacitracin to abrasion monitor counts, transfuse prn anemia w/up noted PT/OT supportive care pain management bowel regimen TSH WNL, continue Synthroid case discussed and evaluated by supervising physician Subjective Allergies: Coded Allergies: No Known Allergies (Verified , 08/23/06) Subjective denies chest pain, SOB , Objective Last 24 Hour Vital Signs Date Time Temp Pulse Resp B/P (MAP) Pulse Ox O2 Delivery O2 Flow Rate FiO2 04/22/17 09:12 65 132/59 04/22/17 09:00 97.0 63 18 105/56 95 97.0 04/22/17 06:06 151/94 04/22/17 04:00 97.7 60 20 151/94 96 Room Air 97.7 04/21/17 21:17 145/73 04/21/17 21:00 97.3 64 17 145/73 98 97.3 04/21/17 19:25 61 16 Room Air 21 04/21/17 16:05 Room Air 04/21/17 15:55 97.9 57 20 131/68 97 97.9 04/21/17 14:00 124/61 04/21/17 13:05 Room Air 04/21/17 11:34 98.5 56 20 156/75 97 98.5 Intake and Output 04/21/17 04/22/17 19:00 07:00 Intake Total 880 ml Output Total 2000 ml Balance -1120 ml Intake Oral 880 ml Hemodialysis UF 2000 ml # Voids 1 1 Objective General Appearance: no apparent distress, other - awake, alert, responsive obese female in NAD Lines, tubes and drains: peripheral HEENT: normocephalic, atraumatic, anicteric Neck: non-tender, normal alignment, supple Respiratory/Chest: chest wall non-tender, lungs clear, normal breath sounds, no respiratory distress, no accessory muscle use, other - R chest HD catheter Cardiovascular/Chest: normal peripheral pulses, normal rate, regular rhythm, no JVD Abdomen: normal bowel sounds, non tender, soft - obese Extremities: no calf tenderness Neurologic: abnormal gait, alert, oriented x 3, responsive Musculoskeletal: normal muscle bulk Microbiology Date/Time Source Procedure Growth Status 04/19/17 22:20 Nasal Nares MRSA Culture - Final NO METHICILLIN RESISTANT STAPH AUREUS... Complete Laboratory Tests 04/22/17 06:20: White Blood Count 5.4, Red Blood Count 2.81L, Hemoglobin 8.2L, Hematocrit 25.0L , Mean Corpuscular Volume 89, Mean Corpuscular Hemoglobin 29.3, Mean Corpuscular Hemoglobin Concent 33.0, Red Cell Distribution Width 13.6, Platelet Count 145L, Mean Platelet Volume 6.6, Neutrophils (%) (Auto) 56.5, Lymphocytes ( %) (Auto) 24.9, Monocytes (%) (Auto) 10.6H, Eosinophils (%) (Auto) 6.8H, Basophils (%) (Auto) 1.3, Sodium Level 137, Potassium Level 4.6, Chloride Level 103, Carbon Dioxide Level 20L, Anion Gap 14, Blood Urea Nitrogen 98H, Creatinine 10.5H, Estimat Glomerular Filtration Rate 3.8, Glucose Level 117H, Calcium Level 8.7 Current Medications Medications (Trade) Dose Ordered Sig/Gabriele Route PRN Reason Start Time Stop Time Status Last Admin Dose Admin Acetaminophen (Tylenol) 650 mg Q4H PRN ORAL Fever 04/19/17 22:15 05/19/17 22:14 Albuterol/ Ipratropium (Albuterol/ Ipratropium) 3 ml EVERY 4 HOURS PRN HHN Shortness of Breath 04/19/17 22:15 04/24/17 22:14 Aspirin (ASA) 81 mg DAILY ORAL 04/20/17 09:00 05/20/17 08:59 04/22/17 09:09 Cefepime HCl 1 gm/ Sodium Chloride 55 ml @ 110 mls/hr Q24H IVPB 04/21/17 16:00 04/28/17 15:59 04/21/17 16:26 Chlorhexidine Gluconate (Cassia-Hex 2%) 1 applic Q24H TOPIC 04/20/17 20:00 05/20/17 19:59 04/21/17 21:16 Clonazepam (KlonoPIN) 0.5 mg Q6H ORAL 04/19/17 22:15 04/26/17 22:14 04/22/17 04:17 Dextrose (Dextrose 50%) STAT PRN IV Hypoglycemia 04/19/17 22:15 05/19/17 22:14 Docusate Sodium (Colace) 100 mg THREE TIMES A DAY ORAL 04/20/17 18:00 05/20/17 17:59 04/22/17 09:09 Escitalopram Oxalate (Lexapro) 10 mg DAILY ORAL 04/20/17 09:00 05/20/17 08:59 04/22/17 09:11 Gabapentin (Neurontin) 300 mg BEDTIME ORAL 04/20/17 21:00 05/20/17 20:59 04/21/17 21:17 Heparin Sodium (Porcine) (Heparin 5000 units/ml) 5,000 units EVERY 12 HOURS SUBQ 04/20/17 09:00 05/20/17 08:59 04/21/17 21:19 Hydralazine HCl (Apresoline) 25 mg Q4HR PRN ORAL bp over 160 syst 04/20/17 17:15 05/20/17 17:14 Hydralazine HCl (Apresoline) 25 mg Q8HR ORAL 04/21/17 14:00 05/21/17 13:59 04/22/17 06:06 Lamotrigine (LaMICtal) 100 mg BID ORAL 04/20/17 09:00 05/20/17 08:59 04/22/17 09:11 Lansoprazole (Prevacid) 30 mg DAILY ORAL 04/20/17 17:15 05/20/17 17:14 04/22/17 09:16 Levothyroxine Sodium (Synthroid) 25 mcg DAILY@0630 ORAL 04/20/17 06:30 05/20/17 06:29 04/22/17 06:06 Nifedipine (Procardia XL) 60 mg DAILY ORAL 04/21/17 09:00 05/21/17 08:59 04/22/17 09:12 Ondansetron HCl (Zofran) 4 mg Q6H PRN IVP Nausea & Vomiting 04/19/17 22:15 05/19/17 22:14 Polyethylene Glycol (Miralax) 17 gm DAILYPRN PRN ORAL Constipation 04/19/17 22:15 05/19/17 22:14 Pravastatin Sodium (Pravachol) 40 mg BEDTIME ORAL 04/20/17 21:00 05/20/17 20:59 04/21/17 21:17 Quetiapine Fumarate (SEROquel) 300 mg BEDTIME ORAL 04/20/17 21:00 05/20/17 20:59 04/21/17 21:17 Sevelamer Carbonate (Renvela) 2,400 mg THREE TIMES A DAY ORAL 04/21/17 18:00 05/21/17 17:59 04/22/17 09:16 Sitagliptin Phosphate (Januvia) 25 mg DAILY ORAL 04/20/17 09:00 05/20/17 08:59 04/22/17 09:10 Temazepam (Restoril) 15 mg HSPRN PRN ORAL Insomnia 04/19/17 22:15 04/26/17 22:14 [facility] ([facility])Alisha NP Apr 22, 2017 09:52
[2017-04-22] MEDS: Heparin 5000 units/ml inj SUBQ SCH ×2 (11:03→20:18)
--- NOTE | 2017-04-22 12:41 | Nephrology Progress Note ---
Assessment/Plan Problem List: (1) ESRD (end stage renal disease) on dialysis (2) Bradycardia (3) Fall Assessment Status: --Bilateral leg numbness --diabetic neuropathy --L5-S1 disc protrusion - hypothyroidism - End-stage renal disease, on hemodialysis. - Anemia of chronic kidney disease. - Hypertension./ Pulmonary HTN - Diabetes type 2. - Morbid obesity. - H/O Colon Cancer - H/O Hep C - H/O Depression and Bipolar disease Plan Plan : HD 04/21- received only 1.5 h as she refused further ! Adjust BP medications stop beta blockers- Bradycardia Per orders Subjective ROS Limited/Unobtainable: No Constitutional: Reports: malaise Objective Objective Last 24 Hour Vital Signs Date Time Temp Pulse Resp B/P (MAP) Pulse Ox O2 Delivery O2 Flow Rate FiO2 04/22/17 09:12 65 132/59 04/22/17 09:00 97.0 63 18 105/56 95 97.0 04/22/17 06:06 151/94 04/22/17 04:00 97.7 60 20 151/94 96 Room Air 97.7 04/21/17 21:17 145/73 04/21/17 21:00 97.3 64 17 145/73 98 97.3 04/21/17 19:25 61 16 Room Air 21 04/21/17 16:05 Room Air 04/21/17 15:55 97.9 57 20 131/68 97 97.9 04/21/17 14:00 124/61 04/21/17 13:05 Room Air Intake and Output 04/21/17 04/22/17 19:00 07:00 Intake Total 880 ml Output Total 2000 ml Balance -1120 ml Intake Oral 880 ml Hemodialysis UF 2000 ml # Voids 1 1 Laboratory Tests 04/22/17 06:20: White Blood Count 5.4, Red Blood Count 2.81L, Hemoglobin 8.2L, Hematocrit 25.0L , Mean Corpuscular Volume 89, Mean Corpuscular Hemoglobin 29.3, Mean Corpuscular Hemoglobin Concent 33.0, Red Cell Distribution Width 13.6, Platelet Count 145L, Mean Platelet Volume 6.6, Neutrophils (%) (Auto) 56.5, Lymphocytes ( %) (Auto) 24.9, Monocytes (%) (Auto) 10.6H, Eosinophils (%) (Auto) 6.8H, Basophils (%) (Auto) 1.3, Sodium Level 137, Potassium Level 4.6, Chloride Level 103, Carbon Dioxide Level 20L, Anion Gap 14, Blood Urea Nitrogen 98H, Creatinine 10.5H, Estimat Glomerular Filtration Rate 3.8, Glucose Level 117H, Calcium Level 8.7 Height (Feet): 5 Height (Inches): 7.00 Weight (Pounds): 220 General Appearance: no apparent distress Objective no change ANDREAS BARRERA 4, 2018 12:41
--- NOTE | 2017-04-22 14:27 | Internal Med Progress Note ---
Subjective Date of Service: Apr 22, 2017 Physician Name Maria T Monteiro Attending Physician Sea Lundberg MD Current Medications Medications (Trade) Dose Ordered Sig/Gabriele Route PRN Reason Start Time Stop Time Status Last Admin Dose Admin Acetaminophen (Tylenol) 650 mg Q4H PRN ORAL Fever 04/19/17 22:15 05/19/17 22:14 Albuterol/ Ipratropium (Albuterol/ Ipratropium) 3 ml EVERY 4 HOURS PRN HHN Shortness of Breath 04/19/17 22:15 04/24/17 22:14 Aspirin (ASA) 81 mg DAILY ORAL 04/20/17 09:00 05/20/17 08:59 04/22/17 09:09 Cefepime HCl 1 gm/ Sodium Chloride 55 ml @ 110 mls/hr Q24H IVPB 04/21/17 16:00 04/28/17 15:59 04/21/17 16:26 Chlorhexidine Gluconate (Cassia-Hex 2%) 1 applic Q24H TOPIC 04/20/17 20:00 05/20/17 19:59 04/21/17 21:16 Clonazepam (KlonoPIN) 0.5 mg Q6H ORAL 04/19/17 22:15 04/26/17 22:14 04/22/17 11:41 Dextrose (Dextrose 50%) STAT PRN IV Hypoglycemia 04/19/17 22:15 05/19/17 22:14 Docusate Sodium (Colace) 100 mg THREE TIMES A DAY ORAL 04/20/17 18:00 05/20/17 17:59 04/22/17 13:36 Escitalopram Oxalate (Lexapro) 10 mg DAILY ORAL 04/20/17 09:00 05/20/17 08:59 04/22/17 09:11 Gabapentin (Neurontin) 300 mg BEDTIME ORAL 04/20/17 21:00 05/20/17 20:59 04/21/17 21:17 Heparin Sodium (Porcine) (Heparin 5000 units/ml) 5,000 units EVERY 12 HOURS SUBQ 04/22/17 11:00 05/22/17 10:59 04/22/17 11:03 Hydralazine HCl (Apresoline) 25 mg Q4HR PRN ORAL bp over 160 syst 04/20/17 17:15 05/20/17 17:14 Hydralazine HCl (Apresoline) 25 mg Q8HR ORAL 04/21/17 14:00 05/21/17 13:59 04/22/17 14:24 Lamotrigine (LaMICtal) 100 mg BID ORAL 04/20/17 09:00 05/20/17 08:59 04/22/17 09:11 Lansoprazole (Prevacid) 30 mg DAILY ORAL 04/20/17 17:15 05/20/17 17:14 04/22/17 09:16 Levothyroxine Sodium (Synthroid) 25 mcg DAILY@0630 ORAL 04/20/17 06:30 05/20/17 06:29 04/22/17 06:06 Nifedipine (Procardia XL) 60 mg DAILY ORAL 04/21/17 09:00 05/21/17 08:59 04/22/17 09:12 Ondansetron HCl (Zofran) 4 mg Q6H PRN IVP Nausea & Vomiting 04/19/17 22:15 05/19/17 22:14 Polyethylene Glycol (Miralax) 17 gm DAILYPRN PRN ORAL Constipation 04/19/17 22:15 05/19/17 22:14 Pravastatin Sodium (Pravachol) 40 mg BEDTIME ORAL 04/20/17 21:00 05/20/17 20:59 04/21/17 21:17 Quetiapine Fumarate (SEROquel) 300 mg BEDTIME ORAL 04/20/17 21:00 05/20/17 20:59 04/21/17 21:17 Sevelamer Carbonate (Renvela) 2,400 mg THREE TIMES A DAY ORAL 04/21/17 18:00 05/21/17 17:59 04/22/17 14:23 Sitagliptin Phosphate (Januvia) 25 mg DAILY ORAL 04/20/17 09:00 05/20/17 08:59 04/22/17 09:10 Temazepam (Restoril) 15 mg HSPRN PRN ORAL Insomnia 04/19/17 22:15 04/26/17 22:14 Allergies: Coded Allergies: No Known Allergies (Verified , 08/23/06) ROS Limited/Unobtainable: No Constitutional: Reports: no symptoms HEENT: Reports: no symptoms Cardiovascular: Reports: no symptoms Respiratory: Reports: no symptoms Gastrointestinal/Abdominal: Reports: no symptoms Genitourinary: Reports: no symptoms Neurologic/Psychiatric: Reports: no symptoms Subjective 56 YO F admitted with bilateral leg weakness. Cover for Int Davin-Dr Lundberg. Objective Last Vital Signs Date Time Temp Pulse Resp B/P (MAP) Pulse Ox O2 Delivery O2 Flow Rate FiO2 04/22/17 14:24 169/68 04/22/17 09:12 65 04/22/17 09:00 97.0 18 95 97.0 04/22/17 04:00 Room Air 04/21/17 19:25 21 Laboratory Tests Test 04/22/17 06:20 White Blood Count 5.4 K/UL (4.8-10.8) Red Blood Count 2.81 M/UL (4.20-5.40) L Hemoglobin 8.2 G/DL (12.0-16.0) L Hematocrit 25.0 % (37.0-47.0) L Mean Corpuscular Volume 89 FL (80-99) Mean Corpuscular Hemoglobin 29.3 PG (27.0-31.0) Mean Corpuscular Hemoglobin Concent 33.0 G/DL (32.0-36.0) Red Cell Distribution Width 13.6 % (11.6-14.8) Platelet Count 145 K/UL (150-450) L Mean Platelet Volume 6.6 FL (6.5-10.1) Neutrophils (%) (Auto) 56.5 % (45.0-75.0) Lymphocytes (%) (Auto) 24.9 % (20.0-45.0) Monocytes (%) (Auto) 10.6 % (1.0-10.0) H Eosinophils (%) (Auto) 6.8 % (0.0-3.0) H Basophils (%) (Auto) 1.3 % (0.0-2.0) Sodium Level 137 MMOL/L (136-145) Potassium Level 4.6 MMOL/L (3.5-5.1) Chloride Level 103 MMOL/L (98-107) Carbon Dioxide Level 20 MMOL/L (21-32) L Anion Gap 14 mmol/L (5-15) Blood Urea Nitrogen 98 mg/dL (7-18) H Creatinine 10.5 MG/DL (0.55-1.30) H Estimat Glomerular Filtration Rate 3.8 mL/min (>60) Glucose Level 117 MG/DL (74-106) H Calcium Level 8.7 MG/DL (8.5-10.1) Microbiology Date/Time Source Procedure Growth Status 04/19/17 22:20 Nasal Nares MRSA Culture - Final NO METHICILLIN RESISTANT STAPH AUREUS... Complete Intake and Output 04/21/17 04/22/17 19:00 07:00 Intake Total 880 ml Output Total 2000 ml Balance -1120 ml Intake Oral 880 ml Hemodialysis UF 2000 ml # Voids 1 1 Objective General Appearance: WD/WN, no apparent distress, alert EENT: PERRL/EOMI, normal ENT inspection Neck: non-tender, normal alignment, supple, normal inspection Cardiovascular: normal peripheral pulses, normal rate, regular rhythm, no gallop/murmur, no JVD Respiratory/Chest: chest wall non-tender, lungs clear, normal breath sounds, no respiratory distress, no accessory muscle use Abdomen: normal bowel sounds, non tender, soft, no organomegaly, no mass Extremities: normal range of motion, non-tender 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 (2) Inability to walk (3) CHF (congestive heart failure) (4) Diabetes mellitus, type II Assessment & Plan: Continue januvia (5) ESRD (end stage renal disease) on dialysis Assessment & Plan: Hemodialysis 04/21/17 per nephrology (6) Bipolar depression Assessment & Plan: Continue lexapro and seroquel (7) Hypothyroidism Assessment & Plan: Continue levoxyl (8) HTN (hypertension) Assessment & Plan: Continue hydralazine and nifedipine (9) Hypercholesteremia Assessment & Plan: Continue pravachol Status: not improved MARIA T MONTEIRO Apr 22, 2017 14:27
--- NOTE | 2017-04-22 15:04 | Cardiology Report ---
APPROVED REPORT EXAM: Two-dimensional and M-mode echocardiogram with Doppler and color Doppler. INDICATION Left Ventricular Function M-Mode DIMENSIONS IVSd1.3 (0.7-1.1cm)Left Atrium (MM)4.4 (1.6-4.0cm) LVDd5.0 (3.5-5.6cm)Aortic Root2.7 (2.0-3.7cm) PWd1.4 (0.7-1.1cm)Aortic Cusp Exc.1.8 (1.5-2.0cm) LVDs2.1 (2.5-4.0cm) PWs2.2 cm Technically difficult study due to poor parasternal acoustical windows. Study quality precludes accurate assessment of regional wall motion. Normal left ventricular chamber size, systolic function and wall motion. Left ventricular ejection fraction estimated to be 55-60 %. Mild left ventricular hypertrophy. Anterior Echo-free space, may be due to pericardial fat or effusion. Mild left atrial enlargement. Right cardiac chamber sizes are within normal limits. Mild focal aortic valve sclerosis with adequate cusp excursion. Mildly thickened mitral valve leaflets with normal excursion. Mild mitral annulus and aortic root calcification. Normal pulmonic valve structure. Normal tricuspid valve structure. IVC dilated at 2.0 cm with physiological collapse. A color flow and spectral Doppler study was performed and revealed: Mild to moderate aortic insufficiency. Mild mitral regurgitation. reduced left ventricular relaxation c/w impaired relaxation diastolic dysfunction. Mild tricuspid regurgitation. Tricuspid systolic velocities suggests peak right ventricular systolic pressure of 59 mmHg, consistent with moderate pulmonary hypertension. Trace pulmonic regurgitation present.
--- NOTE | 2017-04-22 16:11 | Cardiology Report ---
APPROVED REPORT EKG Measurement Heart [id number] Sinus bradycardia Possible Left atrial enlargement Borderline ECG
[2017-04-22] MEDS ORDERED: NS 275ml ONE (17:28)
[2017-04-22] MEDS ORDERED: Tubing IV Secondary IV ONE (17:28)
[2017-04-22] MEDS: Cefepime HCl 1 GM in NS 55 ML IVPB SCH (17:33)
[2017-04-22] MEDS: Dyna-Hex 2% Top Sol 2oz TOPIC SCH (20:20)
[2017-04-22] MEDS: QUEtiapine 200mg tab ORAL SCH (20:20)
[2017-04-22 20:55] VITALS: BP 158/76
[2017-04-22] MEDS ORDERED: Heparin 5000 units/ml inj SUBQ SCH (21:00)
[2017-04-23] VITALS (8 sets, daily range): BP systolic 117–156; BP diastolic 58–91
[2017-04-23] MEDS: clonazePAM 0.5mg tab ORAL SCH ×4 (04:37→22:05)
[2017-04-23] MEDS: Levothyroxine 25mcg tab ORAL SCH (05:41)
[2017-04-23] MEDS: HydrALAZINE 25mg tab ORAL SCH ×3 (05:42→22:05)
[2017-04-23] MEDS: Aspirin Baby 81mg ORAL SCH (09:21)
[2017-04-23] MEDS: sitaGLIPtin 25mg tab ORAL SCH (09:21)
[2017-04-23] MEDS: Docusate 100mg cap ORAL SCH ×3 (09:23→18:41)
[2017-04-23] MEDS: Heparin 5000 units/ml inj SUBQ SCH ×2 (09:30→21:02)
--- NOTE | 2017-04-23 11:44 | Internal Med Progress Note ---
Subjective Date of Service: Apr 23, 2017 Physician Name Maria T Monteiro Attending Physician Sea Lundberg MD Current Medications Medications (Trade) Dose Ordered Sig/Gabriele Route PRN Reason Start Time Stop Time Status Last Admin Dose Admin Acetaminophen (Tylenol) 650 mg Q4H PRN ORAL Fever 04/19/17 22:15 05/19/17 22:14 Albuterol/ Ipratropium (Albuterol/ Ipratropium) 3 ml EVERY 4 HOURS PRN HHN Shortness of Breath 04/19/17 22:15 04/24/17 22:14 Aspirin (ASA) 81 mg DAILY ORAL 04/20/17 09:00 05/20/17 08:59 04/23/17 09:21 Cefepime HCl 1 gm/ Sodium Chloride 55 ml @ 110 mls/hr Q24H IVPB 04/21/17 16:00 04/28/17 15:59 04/22/17 17:33 Chlorhexidine Gluconate (Cassia-Hex 2%) 1 applic Q24H TOPIC 04/20/17 20:00 05/20/17 19:59 04/22/17 20:20 Clonazepam (KlonoPIN) 0.5 mg Q6H ORAL 04/19/17 22:15 04/26/17 22:14 04/23/17 10:38 Dextrose (Dextrose 50%) STAT PRN IV Hypoglycemia 04/19/17 22:15 05/19/17 22:14 Docusate Sodium (Colace) 100 mg THREE TIMES A DAY ORAL 04/20/17 18:00 05/20/17 17:59 04/23/17 09:23 Escitalopram Oxalate (Lexapro) 10 mg DAILY ORAL 04/20/17 09:00 05/20/17 08:59 04/23/17 09:22 Gabapentin (Neurontin) 300 mg BEDTIME ORAL 04/20/17 21:00 05/20/17 20:59 04/22/17 20:20 Heparin Sodium (Porcine) (Heparin 5000 units/ml) 5,000 units EVERY 12 HOURS SUBQ 04/22/17 11:00 05/22/17 10:59 04/23/17 09:30 Hydralazine HCl (Apresoline) 25 mg Q4HR PRN ORAL bp over 160 syst 04/20/17 17:15 05/20/17 17:14 Hydralazine HCl (Apresoline) 25 mg Q8HR ORAL 04/21/17 14:00 05/21/17 13:59 04/23/17 05:42 Lamotrigine (LaMICtal) 100 mg BID ORAL 04/20/17 09:00 05/20/17 08:59 04/23/17 09:21 Lansoprazole (Prevacid) 30 mg DAILY ORAL 04/20/17 17:15 05/20/17 17:14 04/23/17 09:22 Levothyroxine Sodium (Synthroid) 25 mcg DAILY@0630 ORAL 04/20/17 06:30 05/20/17 06:29 04/23/17 05:41 Nifedipine (Procardia XL) 60 mg DAILY ORAL 04/21/17 09:00 05/21/17 08:59 04/23/17 09:27 Ondansetron HCl (Zofran) 4 mg Q6H PRN IVP Nausea & Vomiting 04/19/17 22:15 05/19/17 22:14 Polyethylene Glycol (Miralax) 17 gm DAILYPRN PRN ORAL Constipation 04/19/17 22:15 05/19/17 22:14 Pravastatin Sodium (Pravachol) 40 mg BEDTIME ORAL 04/20/17 21:00 05/20/17 20:59 04/22/17 20:20 Quetiapine Fumarate (SEROquel) 300 mg BEDTIME ORAL 04/20/17 21:00 05/20/17 20:59 04/22/17 20:20 Sevelamer Carbonate (Renvela) 2,400 mg THREE TIMES A DAY ORAL 04/21/17 18:00 05/21/17 17:59 04/23/17 09:22 Sitagliptin Phosphate (Januvia) 25 mg DAILY ORAL 04/20/17 09:00 05/20/17 08:59 04/23/17 09:21 Temazepam (Restoril) 15 mg HSPRN PRN ORAL Insomnia 04/19/17 22:15 04/26/17 22:14 Allergies: Coded Allergies: No Known Allergies (Verified , 08/23/06) ROS Limited/Unobtainable: No Constitutional: Reports: no symptoms HEENT: Reports: no symptoms Cardiovascular: Reports: no symptoms Respiratory: Reports: no symptoms Gastrointestinal/Abdominal: Reports: no symptoms Genitourinary: Reports: no symptoms Neurologic/Psychiatric: Reports: no symptoms Subjective 56 YO F admitted with bilateral leg weakness. Cover for Int Med-Dr Lundberg. Objective Last Vital Signs Date Time Temp Pulse Resp B/P (MAP) Pulse Ox O2 Delivery O2 Flow Rate FiO2 04/23/17 09:31 75 132/70 04/23/17 08:00 98.2 20 98 Room Air 98.2 04/23/17 07:40 21 Intake and Output 04/22/17 04/23/17 19:00 07:00 Intake Total 580 ml 360 ml Balance 580 ml 360 ml Intake Oral 580 ml 360 ml # Voids 2 Objective General Appearance: WD/WN, no apparent distress, alert EENT: PERRL/EOMI, normal ENT inspection Neck: non-tender, normal alignment, supple, normal inspection Cardiovascular: normal peripheral pulses, normal rate, regular rhythm, no gallop/murmur, no JVD Respiratory/Chest: chest wall non-tender, lungs clear, normal breath sounds, no respiratory distress, no accessory muscle use Abdomen: normal bowel sounds, non tender, soft, no organomegaly, no mass Extremities: normal range of motion, non-tender 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 See physical therapy note. (2) Inability to walk (3) CHF (congestive heart failure) (4) Diabetes mellitus, type II Assessment & Plan: Continue januvia (5) ESRD (end stage renal disease) on dialysis Assessment & Plan: Hemodialysis 04/21/17 per nephrology (6) Bipolar depression Assessment & Plan: Continue lexapro and seroquel (7) Hypothyroidism Assessment & Plan: Continue levoxyl (8) HTN (hypertension) Assessment & Plan: Continue hydralazine and nifedipine (9) Hypercholesteremia Assessment & Plan: Continue pravachol Status: progressing Assessment/Plan Discharge planning MARIA T MONTEIRO Apr 23, 2017 11:44
--- NOTE | 2017-04-23 13:01 | Nephrology Progress Note ---
Assessment/Plan Problem List: (1) ESRD (end stage renal disease) on dialysis (2) Bradycardia (3) Fall Assessment Status: --Bilateral leg numbness --diabetic neuropathy --L5-S1 disc protrusion - hypothyroidism - End-stage renal disease, on hemodialysis. - Anemia of chronic kidney disease. - Hypertension./ Pulmonary HTN - Diabetes type 2. - Morbid obesity. - H/O Colon Cancer - H/O Hep C - H/O Depression and Bipolar disease Plan Plan : HD 04/21- received only 1.5 h as she refused further ! Next HD 04/24 Adjust BP medications stop beta blockers- Bradycardia Per orders Subjective ROS Limited/Unobtainable: No Constitutional: Reports: malaise Objective Objective Last 24 Hour Vital Signs Date Time Temp Pulse Resp B/P (MAP) Pulse Ox O2 Delivery O2 Flow Rate FiO2 04/23/17 12:00 97.8 75 19 117/61 98 97.8 04/23/17 09:31 75 132/70 04/23/17 09:27 75 132/70 04/23/17 08:00 98.2 96 20 156/63 98 Room Air 98.2 04/23/17 07:40 65 16 Room Air 21 04/23/17 05:42 144/65 04/23/17 04:59 97.3 63 18 144/65 99 Room Air 97.3 04/23/17 00:32 97.3 61 18 145/58 97 Room Air 97.3 04/22/17 21:39 158/76 04/22/17 20:55 97.2 71 18 158/76 99 Room Air 97.2 04/22/17 19:19 64 16 Room Air 21 04/22/17 14:24 169/68 Intake and Output 04/22/17 04/23/17 19:00 07:00 Intake Total 580 ml 360 ml Balance 580 ml 360 ml Intake Oral 580 ml 360 ml # Voids 2 Height (Feet): 5 Height (Inches): 7.00 Weight (Pounds): 220 General Appearance: no apparent distress Objective no change ANDREAS BARRERA Apr 23, 2017 13:01
--- NOTE | 2017-04-23 13:30 | General Progress Note ---
Assessment/Plan Status: stable Assessment/Plan Assessment/Plan mdd anxiety d/o -seroquel 300mg -klonopin -lexapro Subjective Date patient seen: Apr 22, 2017 Neurologic/Psychiatric: Reports: anxiety, depressed, emotional problems Allergies: Coded Allergies: No Known Allergies (Verified , 08/23/06) Objective Last 24 Hour Vital Signs Date Time Temp Pulse Resp B/P (MAP) Pulse Ox O2 Delivery O2 Flow Rate FiO2 04/23/17 12:00 97.8 75 19 117/61 98 97.8 04/23/17 09:31 75 132/70 04/23/17 09:27 75 132/70 04/23/17 08:00 98.2 96 20 156/63 98 Room Air 98.2 04/23/17 07:40 65 16 Room Air 21 04/23/17 05:42 144/65 04/23/17 04:59 97.3 63 18 144/65 99 Room Air 97.3 04/23/17 00:32 97.3 61 18 145/58 97 Room Air 97.3 04/22/17 21:39 158/76 04/22/17 20:55 97.2 71 18 158/76 99 Room Air 97.2 04/22/17 19:19 64 16 Room Air 21 04/22/17 14:24 169/68 Intake and Output 04/22/17 04/23/17 19:00 07:00 Intake Total 580 ml 360 ml Balance 580 ml 360 ml Intake Oral 580 ml 360 ml # Voids 2 Height (Feet): 5 Height (Inches): 7.00 Weight (Pounds): 220 General Appearance: no apparent distress, alert, agitated Neurologic: alert, oriented x 3, responsive, depressed affect Blanka Beckett M.D. Apr 23, 2017 13:30
--- NOTE | 2017-04-23 13:34 | General Progress Note ---
Assessment/Plan Status: stable, progressing Assessment/Plan Assessment/Plan mdd anxiety d/o -seroquel 300mg -klonopin -lexapro Subjective Date patient seen: Apr 23, 2017 Neurologic/Psychiatric: Reports: anxiety, depressed, emotional problems Allergies: Coded Allergies: No Known Allergies (Verified , 08/23/06) Subjective the pt is c/o itchiness and is agitated Objective Last 24 Hour Vital Signs Date Time Temp Pulse Resp B/P (MAP) Pulse Ox O2 Delivery O2 Flow Rate FiO2 04/23/17 12:00 97.8 75 19 117/61 98 97.8 04/23/17 09:31 75 132/70 04/23/17 09:27 75 132/70 04/23/17 08:00 98.2 96 20 156/63 98 Room Air 98.2 04/23/17 07:40 65 16 Room Air 21 04/23/17 05:42 144/65 04/23/17 04:59 97.3 63 18 144/65 99 Room Air 97.3 04/23/17 00:32 97.3 61 18 145/58 97 Room Air 97.3 04/22/17 21:39 158/76 04/22/17 20:55 97.2 71 18 158/76 99 Room Air 97.2 04/22/17 19:19 64 16 Room Air 21 04/22/17 14:24 169/68 Intake and Output 04/22/17 04/23/17 19:00 07:00 Intake Total 580 ml 360 ml Balance 580 ml 360 ml Intake Oral 580 ml 360 ml # Voids 2 Height (Feet): 5 Height (Inches): 7.00 Weight (Pounds): 220 General Appearance: no apparent distress, alert, agitated Neurologic: alert, oriented x 3, responsive, depressed affect Blanka Beckett M.D. Apr 23, 2017 13:34
[2017-04-23] MEDS: Cefepime HCl 1 GM in NS 55 ML IVPB SCH (17:36)
[2017-04-23] MEDS: Dyna-Hex 2% Top Sol 2oz TOPIC SCH (20:58)
[2017-04-23] MEDS: QUEtiapine 200mg tab ORAL SCH (20:58)
[2017-04-24] VITALS: BP 138/60
[2017-04-24 04:00] VITALS: BP 129/72
[2017-04-24] MEDS: clonazePAM 0.5mg tab ORAL SCH ×5 (04:00→20:35)
[2017-04-24] MEDS: HydrALAZINE 25mg tab ORAL SCH ×3 (05:50→20:35)
[2017-04-24] MEDS: Levothyroxine 25mcg tab ORAL SCH (06:06)
[2017-04-24 08:00] VITALS: BP 131/58
[2017-04-24] MEDS: sitaGLIPtin 25mg tab ORAL SCH (09:15)
[2017-04-24] MEDS: Aspirin Baby 81mg ORAL SCH (09:15)
[2017-04-24] MEDS: Docusate 100mg cap ORAL SCH ×3 (09:15→17:33)
[2017-04-24] MEDS: Heparin 5000 units/ml inj SUBQ SCH ×2 (10:17→20:35)
[2017-04-24 12:00] VITALS: BP 153/90
--- NOTE | 2017-04-24 15:48 | Nephrology Progress Note ---
Assessment/Plan Problem List: (1) ESRD (end stage renal disease) on dialysis (2) Bradycardia (3) Fall Assessment Status: --Bilateral leg numbness --diabetic neuropathy --L5-S1 disc protrusion - hypothyroidism - End-stage renal disease, on hemodialysis. - Anemia of chronic kidney disease. - Hypertension./ Pulmonary HTN - Diabetes type 2. - Morbid obesity. - H/O Colon Cancer - H/O Hep C - H/O Depression and Bipolar disease Plan Plan : HD 04/21- received only 1.5 h as she refused further ! Next HD 04/24 Adjust BP medications stop beta blockers- Bradycardia Per orders Subjective ROS Limited/Unobtainable: No Objective Objective Last 24 Hour Vital Signs Date Time Temp Pulse Resp B/P (MAP) Pulse Ox O2 Delivery O2 Flow Rate FiO2 04/24/17 14:07 153/90 04/24/17 12:00 97.2 20 153/90 99 Room Air 97.2 04/24/17 09:15 61 131/58 04/24/17 08:00 99.1 61 21 131/58 97 Room Air 99.1 04/24/17 07:56 69 18 Room Air 21 04/24/17 04:00 Room Air 04/24/17 04:00 97.9 72 20 129/72 97 97.9 04/24/17 00:00 Room Air 04/24/17 00:00 97.5 70 19 138/60 98 Room Air 97.5 04/23/17 22:05 142/62 04/23/17 20:30 96.8 71 18 142/62 99 96.8 04/23/17 20:30 Room Air 04/23/17 19:50 65 18 Room Air 21 04/23/17 16:00 Room Air 04/23/17 16:00 97.2 64 20 155/74 99 97.2 Intake and Output 04/23/17 04/24/17 19:00 07:00 Intake Total 720 ml 360 ml Balance 720 ml 360 ml Intake Oral 720 ml 360 ml # Voids 5 2 Height (Feet): 5 Height (Inches): 7.00 Weight (Pounds): 220 General Appearance: no apparent distress Objective no change ANDREAS BARRERA Apr 24, 2017 15:48
[2017-04-24 16:00] VITALS: BP 153/77
[2017-04-24] MEDS: Cefepime HCl 500 MG in NS 55 ML IVPB SCH (17:38)
--- NOTE | 2017-04-24 18:44 | General Progress Note ---
Assessment/Plan Status: stable Assessment/Plan mdd anxiety d/o -seroquel 300mg -klonopin -lexapro Subjective Date patient seen: Apr 24, 2017 Allergies: Coded Allergies: No Known Allergies (Verified , 08/23/06) Subjective the pt is calmer however irritable Objective Last 24 Hour Vital Signs Date Time Temp Pulse Resp B/P (MAP) Pulse Ox O2 Delivery O2 Flow Rate FiO2 04/24/17 16:00 98.1 72 20 153/77 98 Room Air 98.1 04/24/17 14:07 153/90 04/24/17 12:00 97.2 20 153/90 99 Room Air 97.2 04/24/17 09:15 61 131/58 04/24/17 08:00 99.1 61 21 131/58 97 Room Air 99.1 04/24/17 07:56 69 18 Room Air 21 04/24/17 04:00 Room Air 04/24/17 04:00 97.9 72 20 129/72 97 97.9 04/24/17 00:00 Room Air 04/24/17 00:00 97.5 70 19 138/60 98 Room Air 97.5 04/23/17 22:05 142/62 04/23/17 20:30 96.8 71 18 142/62 99 96.8 04/23/17 20:30 Room Air 04/23/17 19:50 65 18 Room Air 21 Intake and Output 04/23/17 04/24/17 19:00 07:00 Intake Total 720 ml 360 ml Balance 720 ml 360 ml Intake Oral 720 ml 360 ml # Voids 5 2 Height (Feet): 5 Height (Inches): 7.00 Weight (Pounds): 220 General Appearance: alert Neurologic: alert, oriented x 3, depressed affect Blanka Beckett M.D. Apr 24, 2017 18:44
[2017-04-24 19:48] VITALS: BP 165/82
--- NOTE | 2017-04-24 19:56 | Internal Med Progress Note ---
Subjective Date of Service: Apr 24, 2017 Physician Name Maria T Monteiro Attending Physician Sea Lundberg MD Current Medications Medications (Trade) Dose Ordered Sig/Gabriele Route PRN Reason Start Time Stop Time Status Last Admin Dose Admin Acetaminophen (Tylenol) 650 mg Q4H PRN ORAL Fever 04/19/17 22:15 05/19/17 22:14 Albuterol/ Ipratropium (Albuterol/ Ipratropium) 3 ml EVERY 4 HOURS PRN HHN Shortness of Breath 04/19/17 22:15 04/24/17 22:14 Aspirin (ASA) 81 mg DAILY ORAL 04/20/17 09:00 05/20/17 08:59 04/24/17 09:15 Cefepime HCl 500 mg/Sodium Chloride 55 ml @ 110 mls/hr Q24H IVPB 04/24/17 18:00 05/01/17 17:59 04/24/17 17:38 Chlorhexidine Gluconate (Cassia-Hex 2%) 1 applic Q24H TOPIC 04/20/17 20:00 05/20/17 19:59 04/23/17 20:58 Clonazepam (KlonoPIN) 0.5 mg Q6H ORAL 04/19/17 22:15 04/26/17 22:14 04/24/17 16:29 Dextrose (Dextrose 50%) STAT PRN IV Hypoglycemia 04/19/17 22:15 05/19/17 22:14 Docusate Sodium (Colace) 100 mg THREE TIMES A DAY ORAL 04/20/17 18:00 05/20/17 17:59 04/24/17 17:33 Escitalopram Oxalate (Lexapro) 10 mg DAILY ORAL 04/20/17 09:00 05/20/17 08:59 04/24/17 09:15 Gabapentin (Neurontin) 300 mg BEDTIME ORAL 04/20/17 21:00 05/20/17 20:59 04/23/17 21:00 Heparin Sodium (Porcine) (Heparin 5000 units/ml) 5,000 units EVERY 12 HOURS SUBQ 04/22/17 11:00 05/22/17 10:59 04/23/17 21:02 Hydralazine HCl (Apresoline) 25 mg Q4HR PRN ORAL bp over 160 syst 04/20/17 17:15 05/20/17 17:14 Hydralazine HCl (Apresoline) 25 mg Q8HR ORAL 04/21/17 14:00 05/21/17 13:59 04/24/17 14:07 Lamotrigine (LaMICtal) 100 mg BID ORAL 04/20/17 09:00 05/20/17 08:59 04/24/17 17:33 Lansoprazole (Prevacid) 30 mg DAILY ORAL 04/20/17 17:15 05/20/17 17:14 04/24/17 09:15 Levothyroxine Sodium (Synthroid) 25 mcg DAILY@0630 ORAL 04/20/17 06:30 05/20/17 06:29 04/24/17 06:06 Nifedipine (Procardia XL) 60 mg DAILY ORAL 04/21/17 09:00 05/21/17 08:59 04/24/17 09:15 Ondansetron HCl (Zofran) 4 mg Q6H PRN IVP Nausea & Vomiting 04/19/17 22:15 05/19/17 22:14 Polyethylene Glycol (Miralax) 17 gm DAILYPRN PRN ORAL Constipation 04/19/17 22:15 05/19/17 22:14 Pravastatin Sodium (Pravachol) 40 mg BEDTIME ORAL 04/20/17 21:00 05/20/17 20:59 04/23/17 21:00 Quetiapine Fumarate (SEROquel) 300 mg BEDTIME ORAL 04/20/17 21:00 05/20/17 20:59 04/23/17 20:58 Sevelamer Carbonate (Renvela) 2,400 mg THREE TIMES A DAY ORAL 04/21/17 18:00 05/21/17 17:59 04/24/17 17:33 Sitagliptin Phosphate (Januvia) 25 mg DAILY ORAL 04/20/17 09:00 05/20/17 08:59 04/24/17 09:15 Temazepam (Restoril) 15 mg HSPRN PRN ORAL Insomnia 04/19/17 22:15 04/26/17 22:14 Allergies: Coded Allergies: No Known Allergies (Verified , 08/23/06) ROS Limited/Unobtainable: No Constitutional: Reports: no symptoms HEENT: Reports: no symptoms Cardiovascular: Reports: no symptoms Respiratory: Reports: no symptoms Gastrointestinal/Abdominal: Reports: no symptoms Genitourinary: Reports: no symptoms Neurologic/Psychiatric: Reports: no symptoms Subjective 56 YO F admitted with bilateral leg weakness. Cover for Int Med-Dr Lundberg. Objective Last Vital Signs Date Time Temp Pulse Resp B/P (MAP) Pulse Ox O2 Delivery O2 Flow Rate FiO2 04/24/17 19:48 98.1 68 19 165/82 100 98.1 04/24/17 16:00 Room Air 04/24/17 07:56 21 Intake and Output 04/23/17 04/24/17 19:00 07:00 Intake Total 720 ml 360 ml Balance 720 ml 360 ml Intake Oral 720 ml 360 ml # Voids 5 2 Objective General Appearance: WD/WN, no apparent distress, alert EENT: PERRL/EOMI, normal ENT inspection Neck: non-tender, normal alignment, supple, normal inspection Cardiovascular: normal peripheral pulses, normal rate, regular rhythm, no gallop/murmur, no JVD Respiratory/Chest: chest wall non-tender, lungs clear, normal breath sounds, no respiratory distress, no accessory muscle use Abdomen: normal bowel sounds, non tender, soft, no organomegaly, no mass Extremities: normal range of motion, non-tender 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 See physical therapy note. (2) Inability to walk (3) CHF (congestive heart failure) (4) Diabetes mellitus, type II Assessment & Plan: Continue januvia (5) ESRD (end stage renal disease) on dialysis Assessment & Plan: Hemodialysis 04/24/17 per nephrology (6) Bipolar depression Assessment & Plan: Continue lexapro and seroquel (7) Hypothyroidism Assessment & Plan: Continue levoxyl (8) HTN (hypertension) Assessment & Plan: Continue hydralazine and nifedipine (9) Hypercholesteremia Assessment & Plan: Continue pravachol Assessment/Plan Discharge planning MARIA T MONTEIRO Apr 24, 2017 19:56
--- NOTE | 2017-04-24 20:00 | Cardiology Report ---
APPROVED REPORT EKG Measurement Heart [id number] [place] [id number] Normal sinus rhythm Cannot rule out Anterior infarct, age undetermined Abnormal ECG
[2017-04-24] MEDS: Dyna-Hex 2% Top Sol 2oz TOPIC SCH (20:09)
[2017-04-24] MEDS: QUEtiapine 200mg tab ORAL SCH (20:35)
[2017-04-25 04:00] VITALS: BP 127/71
[2017-04-25] MEDS: clonazePAM 0.5mg tab ORAL SCH ×4 (04:15→20:48)
[2017-04-25] MEDS: Levothyroxine 25mcg tab ORAL SCH (05:11)
[2017-04-25] MEDS: HydrALAZINE 25mg tab ORAL SCH ×3 (05:11→20:50)
[2017-04-25 07:24] LABS: BASOPHILS % (AUTO) 1.3 % (0.0-2.0); EOSINOPHILS % (AUTO) 5.8 % (0.0-3.0); HEMATOCRIT 27.8 % (37.0-47.0); HEMOGLOBIN 9.1 G/DL (12.0-16.0); LYMPHOCYTES % (AUTO) 23.6 % (20.0-45.0); MEAN CORPUSCULAR VOLUME 90 FL (80-99); MONOCYTES % (AUTO) 9.3 % (1.0-10.0); PLATELET COUNT 163 K/UL (150-450); RED BLOOD COUNT 3.09 M/UL (4.20-5.40); RED CELL DISTRIBUTION WIDTH 13.7 % (11.6-14.8); WHITE BLOOD COUNT 7.8 K/UL (4.8-10.8)
[2017-04-25 08:00] VITALS: BP 121/79
[2017-04-25 08:41] LABS: ANION GAP 14 mmol/L (5-15); BLOOD UREA NITROGEN 108 mg/dL (7-18); CALCIUM 9.5 MG/DL (8.5-10.1); CARBON DIOXIDE 18 MMOL/L (21-32); CHLORIDE 97 MMOL/L (98-107); CREATININE 12.1 MG/DL (0.55-1.30); POTASSIUM 5.3 MMOL/L (3.5-5.1); SODIUM 129 MMOL/L (136-145)
[2017-04-25] MEDS: Docusate 100mg cap ORAL SCH ×3 (08:51→18:19)
[2017-04-25] MEDS: Aspirin Baby 81mg ORAL SCH (08:52)
[2017-04-25] MEDS: sitaGLIPtin 25mg tab ORAL SCH (08:55)
[2017-04-25] MEDS: Heparin 5000 units/ml inj SUBQ SCH ×2 (09:00→20:48)
[2017-04-25 12:00] VITALS: BP 118/82
--- NOTE | 2017-04-25 12:50 | Internal Med Progress Note ---
Subjective Date of Service: Apr 25, 2017 Physician Name Maria T Monteiro Attending Physician Sea Lundberg MD Current Medications Medications (Trade) Dose Ordered Sig/Gabriele Route PRN Reason Start Time Stop Time Status Last Admin Dose Admin Acetaminophen (Tylenol) 650 mg Q4H PRN ORAL Fever 04/19/17 22:15 05/19/17 22:14 Aspirin (ASA) 81 mg DAILY ORAL 04/20/17 09:00 05/20/17 08:59 04/25/17 08:52 Cefepime HCl 500 mg/Sodium Chloride 55 ml @ 110 mls/hr Q24H IVPB 04/24/17 18:00 05/01/17 17:59 04/24/17 17:38 Chlorhexidine Gluconate (Cassia-Hex 2%) 1 applic Q24H TOPIC 04/20/17 20:00 05/20/17 19:59 04/24/17 20:09 Clonazepam (KlonoPIN) 0.5 mg Q6H ORAL 04/19/17 22:15 04/26/17 22:14 04/25/17 10:40 Dextrose (Dextrose 50%) STAT PRN IV Hypoglycemia 04/19/17 22:15 05/19/17 22:14 Docusate Sodium (Colace) 100 mg THREE TIMES A DAY ORAL 04/20/17 18:00 05/20/17 17:59 04/25/17 08:51 Escitalopram Oxalate (Lexapro) 10 mg DAILY ORAL 04/20/17 09:00 05/20/17 08:59 04/25/17 08:52 Gabapentin (Neurontin) 300 mg BEDTIME ORAL 04/20/17 21:00 05/20/17 20:59 04/24/17 20:36 Heparin Sodium (Porcine) (Heparin 5000 units/ml) 5,000 units EVERY 12 HOURS SUBQ 04/22/17 11:00 05/22/17 10:59 04/25/17 09:00 Hydralazine HCl (Apresoline) 25 mg Q4HR PRN ORAL bp over 160 syst 04/20/17 17:15 05/20/17 17:14 Hydralazine HCl (Apresoline) 25 mg Q8HR ORAL 04/21/17 14:00 05/21/17 13:59 04/25/17 05:11 Lamotrigine (LaMICtal) 100 mg BID ORAL 04/20/17 09:00 05/20/17 08:59 04/25/17 08:52 Lansoprazole (Prevacid) 30 mg DAILY ORAL 04/20/17 17:15 05/20/17 17:14 04/25/17 08:51 Levothyroxine Sodium (Synthroid) 25 mcg DAILY@0630 ORAL 04/20/17 06:30 05/20/17 06:29 04/25/17 05:11 Nifedipine (Procardia XL) 60 mg DAILY ORAL 04/21/17 09:00 05/21/17 08:59 04/25/17 08:51 Ondansetron HCl (Zofran) 4 mg Q6H PRN IVP Nausea & Vomiting 04/19/17 22:15 05/19/17 22:14 Polyethylene Glycol (Miralax) 17 gm DAILYPRN PRN ORAL Constipation 04/19/17 22:15 05/19/17 22:14 Pravastatin Sodium (Pravachol) 40 mg BEDTIME ORAL 04/20/17 21:00 05/20/17 20:59 04/24/17 20:35 Quetiapine Fumarate (SEROquel) 300 mg BEDTIME ORAL 04/20/17 21:00 05/20/17 20:59 04/24/17 20:35 Sevelamer Carbonate (Renvela) 2,400 mg THREE TIMES A DAY ORAL 04/21/17 18:00 05/21/17 17:59 04/25/17 08:52 Sitagliptin Phosphate (Januvia) 25 mg DAILY ORAL 04/20/17 09:00 05/20/17 08:59 04/25/17 08:55 Temazepam (Restoril) 15 mg HSPRN PRN ORAL Insomnia 04/19/17 22:15 04/26/17 22:14 Allergies: Coded Allergies: No Known Allergies (Verified , 08/23/06) ROS Limited/Unobtainable: No Constitutional: Reports: no symptoms HEENT: Reports: no symptoms Cardiovascular: Reports: no symptoms Respiratory: Reports: no symptoms Gastrointestinal/Abdominal: Reports: no symptoms Genitourinary: Reports: no symptoms Neurologic/Psychiatric: Reports: no symptoms Subjective 56 YO F admitted with bilateral leg weakness. Cover for Int Davin-Dr Lundberg. Objective Last Vital Signs Date Time Temp Pulse Resp B/P (MAP) Pulse Ox O2 Delivery O2 Flow Rate FiO2 04/25/17 12:00 97.9 66 13 118/82 99 97.9 04/24/17 20:00 Room Air 04/24/17 19:02 21 Laboratory Tests Test 04/25/17 05:50 White Blood Count 7.8 K/UL (4.8-10.8) Red Blood Count 3.09 M/UL (4.20-5.40) L Hemoglobin 9.1 G/DL (12.0-16.0) L Hematocrit 27.8 % (37.0-47.0) L Mean Corpuscular Volume 90 FL (80-99) Mean Corpuscular Hemoglobin 29.4 PG (27.0-31.0) Mean Corpuscular Hemoglobin Concent 32.7 G/DL (32.0-36.0) Red Cell Distribution Width 13.7 % (11.6-14.8) Platelet Count 163 K/UL (150-450) Mean Platelet Volume 7.3 FL (6.5-10.1) Neutrophils (%) (Auto) 60.0 % (45.0-75.0) Lymphocytes (%) (Auto) 23.6 % (20.0-45.0) Monocytes (%) (Auto) 9.3 % (1.0-10.0) Eosinophils (%) (Auto) 5.8 % (0.0-3.0) H Basophils (%) (Auto) 1.3 % (0.0-2.0) Sodium Level 129 MMOL/L (136-145) L Potassium Level 5.3 MMOL/L (3.5-5.1) H Chloride Level 97 MMOL/L (98-107) L Carbon Dioxide Level 18 MMOL/L (21-32) L Anion Gap 14 mmol/L (5-15) Blood Urea Nitrogen 108 mg/dL (7-18) H Creatinine 12.1 MG/DL (0.55-1.30) H Estimat Glomerular Filtration Rate 3.3 mL/min (>60) Glucose Level 120 MG/DL (74-106) H Calcium Level 9.5 MG/DL (8.5-10.1) Intake and Output 04/24/17 04/25/17 19:00 07:00 Intake Total 480 ml Balance 480 ml Intake Oral 480 ml # Voids 5 3 Objective General Appearance: WD/WN, no apparent distress, alert EENT: PERRL/EOMI, normal ENT inspection Neck: non-tender, normal alignment, supple, normal inspection Cardiovascular: normal peripheral pulses, normal rate, regular rhythm, no gallop/murmur, no JVD Respiratory/Chest: chest wall non-tender, lungs clear, normal breath sounds, no respiratory distress, no accessory muscle use Abdomen: normal bowel sounds, non tender, soft, no organomegaly, no mass Extremities: normal range of motion, non-tender 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 See physical therapy note. (2) Inability to walk (3) CHF (congestive heart failure) (4) Diabetes mellitus, type II Assessment & Plan: Continue januvia (5) ESRD (end stage renal disease) on dialysis Assessment & Plan: Last Hemodialysis 04/24/17 per nephrology (6) Bipolar depression Assessment & Plan: Continue lexapro and seroquel (7) Hypothyroidism Assessment & Plan: Continue levoxyl (8) HTN (hypertension) Assessment & Plan: Continue hydralazine and nifedipine (9) Hypercholesteremia Assessment & Plan: Continue pravachol Assessment/Plan Discharge planning MARIA T MONTEIRO Apr 25, 2017 12:50
--- NOTE | 2017-04-25 14:43 | Nephrology Progress Note ---
Assessment/Plan Problem List: (1) ESRD (end stage renal disease) on dialysis (2) Bradycardia (3) Fall Assessment Status: --Bilateral leg numbness --diabetic neuropathy --L5-S1 disc protrusion - hypothyroidism - End-stage renal disease, on hemodialysis. - Anemia of chronic kidney disease. - Hypertension./ Pulmonary HTN - Diabetes type 2. - Morbid obesity. - H/O Colon Cancer - H/O Hep C - H/O Depression and Bipolar disease Plan Plan : HD 04/21- received only 1.5 h as she refused further ! Next HD 04/26 Adjust BP medications stop beta blockers- Bradycardia Per orders Subjective ROS Limited/Unobtainable: No Objective Objective Last 24 Hour Vital Signs Date Time Temp Pulse Resp B/P (MAP) Pulse Ox O2 Delivery O2 Flow Rate FiO2 04/25/17 12:00 97.9 66 13 118/82 99 97.9 04/25/17 08:51 70 127/71 04/25/17 08:00 64 12 121/79 100 04/25/17 05:11 127/71 04/25/17 04:00 97.9 70 20 127/71 100 97.9 04/24/17 20:35 165/82 04/24/17 20:00 100 Room Air 04/24/17 19:48 98.1 68 19 165/82 100 98.1 04/24/17 19:02 72 20 Room Air 21 04/24/17 16:00 98.1 72 20 153/77 98 Room Air 98.1 Intake and Output 04/24/17 04/25/17 19:00 07:00 Intake Total 480 ml Balance 480 ml Intake Oral 480 ml # Voids 5 3 Laboratory Tests 04/25/17 05:50: White Blood Count 7.8, Red Blood Count 3.09L, Hemoglobin 9.1L, Hematocrit 27.8L , Mean Corpuscular Volume 90, Mean Corpuscular Hemoglobin 29.4, Mean Corpuscular Hemoglobin Concent 32.7, Red Cell Distribution Width 13.7, Platelet Count 163, Mean Platelet Volume 7.3, Neutrophils (%) (Auto) 60.0, Lymphocytes (% ) (Auto) 23.6, Monocytes (%) (Auto) 9.3, Eosinophils (%) (Auto) 5.8H, Basophils (%) (Auto) 1.3, Sodium Level 129L, Potassium Level 5.3H, Chloride Level 97L, Carbon Dioxide Level 18L, Anion Gap 14, Blood Urea Nitrogen 108H, Creatinine 12.1H, Estimat Glomerular Filtration Rate 3.3, Glucose Level 120H, Calcium Level 9.5 Height (Feet): 5 Height (Inches): 7.00 Weight (Pounds): 220 General Appearance: no apparent distress Respiratory/Chest: lungs clear Abdomen: soft Objective no change ANDREAS BARRERA Apr 25, 2017 14:42
[2017-04-25 16:00] VITALS: BP 128/64
[2017-04-25] MEDS: Cefepime HCl 500 MG in NS 55 ML IVPB SCH (18:19)
--- NOTE | 2017-04-25 19:17 | General Progress Note ---
Assessment/Plan Status: stable, progressing Assessment/Plan mdd anxiety d/o -seroquel 300mg -klonopin -lexapro Subjective Date patient seen: Apr 25, 2017 Neurologic/Psychiatric: Reports: anxiety, depressed, emotional problems Allergies: Coded Allergies: No Known Allergies (Verified , 08/23/06) Subjective the pt is calmer however irritable Objective Last 24 Hour Vital Signs Date Time Temp Pulse Resp B/P (MAP) Pulse Ox O2 Delivery O2 Flow Rate FiO2 04/25/17 16:00 97.0 66 18 128/64 98 Room Air 97.0 04/25/17 15:06 118/82 04/25/17 12:00 97.9 66 13 118/82 99 97.9 04/25/17 08:51 70 127/71 04/25/17 08:00 64 12 121/79 100 04/25/17 05:11 127/71 04/25/17 04:00 97.9 70 20 127/71 100 97.9 04/24/17 20:35 165/82 04/24/17 20:00 100 Room Air 04/24/17 19:48 98.1 68 19 165/82 100 98.1 Intake and Output 04/24/17 04/25/17 19:00 07:00 Intake Total 480 ml Balance 480 ml Intake Oral 480 ml # Voids 5 3 Laboratory Tests 04/25/17 05:50: White Blood Count 7.8, Red Blood Count 3.09L, Hemoglobin 9.1L, Hematocrit 27.8L , Mean Corpuscular Volume 90, Mean Corpuscular Hemoglobin 29.4, Mean Corpuscular Hemoglobin Concent 32.7, Red Cell Distribution Width 13.7, Platelet Count 163, Mean Platelet Volume 7.3, Neutrophils (%) (Auto) 60.0, Lymphocytes (% ) (Auto) 23.6, Monocytes (%) (Auto) 9.3, Eosinophils (%) (Auto) 5.8H, Basophils (%) (Auto) 1.3, Sodium Level 129L, Potassium Level 5.3H, Chloride Level 97L, Carbon Dioxide Level 18L, Anion Gap 14, Blood Urea Nitrogen 108H, Creatinine 12.1H, Estimat Glomerular Filtration Rate 3.3, Glucose Level 120H, Calcium Level 9.5 Height (Feet): 5 Height (Inches): 7.00 Weight (Pounds): 220 General Appearance: no apparent distress, alert 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 Apr 25, 2017 19:17
[2017-04-25 19:57] VITALS: BP 156/66
[2017-04-25] MEDS: Dyna-Hex 2% Top Sol 2oz TOPIC SCH (20:12)
[2017-04-25] MEDS: QUEtiapine 200mg tab ORAL SCH (20:49)
[2017-04-26 04:00] VITALS: BP 130/76
[2017-04-26] MEDS: clonazePAM 0.5mg tab ORAL SCH ×2 (04:15→10:15)
[2017-04-26] MEDS: Levothyroxine 25mcg tab ORAL SCH (05:43)
[2017-04-26] MEDS: HydrALAZINE 25mg tab ORAL SCH (05:43)
[2017-04-26 08:34] VITALS: BP 123/60
[2017-04-26] MEDS: Aspirin Baby 81mg ORAL SCH (08:34)
[2017-04-26] MEDS: sitaGLIPtin 25mg tab ORAL SCH (08:34)
[2017-04-26] MEDS: Docusate 100mg cap ORAL SCH (08:34)
[2017-04-26] MEDS: Heparin 5000 units/ml inj SUBQ SCH (08:41)
[2017-04-26] MEDS ORDERED: LANSOPRAZOLE30 MG ORAL (10:46)
[2017-04-26] MEDS ORDERED: LEVOTHYROXINE25 MCG ORAL (10:47)
[2017-04-26] MEDS ORDERED: ADALAT20 MG ORAL (10:48)
[2017-04-26] MEDS ORDERED: RENVELA2.4 GM ORAL (10:49)
--- NOTE | 2017-04-26 11:44 | Nephrology Progress Note ---
Assessment/Plan Problem List: (1) ESRD (end stage renal disease) on dialysis (2) Bradycardia (3) Fall Assessment Status: --Bilateral leg numbness --diabetic neuropathy --L5-S1 disc protrusion - hypothyroidism - End-stage renal disease, on hemodialysis. - Anemia of chronic kidney disease. - Hypertension./ Pulmonary HTN - Diabetes type 2. - Morbid obesity. - H/O Colon Cancer - H/O Hep C - H/O Depression and Bipolar disease Plan Plan : HD 04/21- received only 1.5 h as she refused further ! Next HD 04/26 Adjust BP medications stop beta blockers- Bradycardia Per orders Subjective ROS Limited/Unobtainable: No Constitutional: Reports: malaise Objective Objective Last 24 Hour Vital Signs Date Time Temp Pulse Resp B/P (MAP) Pulse Ox O2 Delivery O2 Flow Rate FiO2 04/26/17 08:34 97.5 72 20 123/60 99 97.5 04/26/17 08:34 75 130/76 04/26/17 08:03 75 18 Room Air 21 04/26/17 05:43 130/76 04/26/17 04:00 98.1 63 18 130/76 100 98.1 04/25/17 21:33 65 18 Room Air 21 04/25/17 20:50 156/66 04/25/17 20:00 98 Room Air 04/25/17 19:57 98.1 65 18 156/66 98 98.1 04/25/17 16:00 97.0 66 18 128/64 98 Room Air 97.0 04/25/17 15:06 118/82 04/25/17 12:00 97.9 66 13 118/82 99 97.9 Intake and Output 04/25/17 04/26/17 19:00 07:00 Intake Total 990 ml 375 ml Balance 990 ml 375 ml Intake Oral 990 ml 375 ml # Voids 3 2 Height (Feet): 5 Height (Inches): 7.00 Weight (Pounds): 220 General Appearance: no apparent distress Objective no change ANDREAS BARRERA Apr 26, 2017 11:44
[2017-04-26 11:47] VITALS: BP 155/75
[2017-04-26] MEDS ORDERED: Tubing IV Secondary IV ONE (14:23)
--- NOTE | 2017-04-26 16:24 | General Progress Note ---
Assessment/Plan Status: stable Assessment/Plan mdd anxiety d/o -seroquel 300mg -klonopin -lexapro Subjective Date patient seen: Apr 26, 2017 Neurologic/Psychiatric: Reports: anxiety, depressed, emotional problems Allergies: Coded Allergies: No Known Allergies (Verified , 08/23/06) Subjective the pt is irritable Objective Last 24 Hour Vital Signs Date Time Temp Pulse Resp B/P (MAP) Pulse Ox O2 Delivery O2 Flow Rate FiO2 04/26/17 11:47 98.2 71 20 155/75 100 98.2 04/26/17 08:34 97.5 72 20 123/60 99 97.5 04/26/17 08:34 75 130/76 04/26/17 08:03 75 18 Room Air 21 04/26/17 05:43 130/76 04/26/17 04:00 98.1 63 18 130/76 100 98.1 04/25/17 21:33 65 18 Room Air 21 04/25/17 20:50 156/66 04/25/17 20:00 98 Room Air 04/25/17 19:57 98.1 65 18 156/66 98 98.1 Intake and Output 04/25/17 04/26/17 19:00 07:00 Intake Total 990 ml 375 ml Balance 990 ml 375 ml Intake Oral 990 ml 375 ml # Voids 3 2 Height (Feet): 5 Height (Inches): 7.00 Weight (Pounds): 220 General Appearance: no apparent distress, alert Neurologic: oriented x 3, responsive, depressed affect Blanka Beckett M.D. Apr 26, 2017 16:24
--- NOTE | 2017-04-27 15:57 | Discharge Summary ---
Discharge Summary Hospital Course Date of Admission Apr 19, 2017 at 21:00 Date of Discharge Apr 26, 2017 at 14:24 Admitting Diagnosis Inability to walk, elevated creatinine HPI Cris Zuluaga is a 56 year old female who was admitted on Apr 19, 2017 at 21: 00 for Inability To Walk, Elevated Creatine Hospital Course [id number] Discharge Discharge Disposition Patient was discharged to SNF/Subacute Facility(03) Discharge Diagnoses: Teresa Higginbotham NP Apr 27, 2017 15:57
--- NOTE | 2017-04-28 09:45 | Discharge Summary 2 SIG ---
DATE OF ADMISSION: 04/19/2017 DATE OF DISCHARGE: 04/26/2017 CONSULTANTS: 1. Blanka Beckett M.D. 2. Eamon Solis M.D. 3. Demetri Vallecillo M.D. BRIEF HOSPITAL COURSE: The patient is a 56-year-old, unfortunate, female with medical history of bipolar disorder, depression, end-stage renal disease, on hemodialysis, history of hypertension, congestive heart failure, chronic anemia due to chronic disease, type 2 diabetes, history of left upper extremity AV fistula placement as well as PermCath in the right chest wall, presented to the hospital complaining of weakness of the lower extremities. She was walking and felt like the legs gave up on her. She denied any head trauma or any loss of consciousness, dizziness or syncope. She complained weakness of the legs that had been progressively worsening. She denied any bowel or urine incontinence. She was recently evaluated by her primary doctor where urinalysis was done and was noted to have infection. On evaluation at ED, EKG done was in normal sinus rhythm with possible left atrial enlargement. There was no ST elevation or arrhythmia noted. Blood work showed no elevation in WBC. Creatinine was elevated to 11, BUN of 102. She had abrasions on the forearms bilaterally, abrasions were cleaned and bacitracin was applied and was covered by sterile dressing. She was unable to ambulate independently, unable to walk up flight of stairs. The patient is unable to be discharged home. She was then admitted to medical floor for evaluation of bilateral leg numbness and end-stage renal disease. She had an MRI of the lumbar spine that showed L5-S1. Small posterior disc protrusion with degenerative changes. She was followed by Dr. Solis, who managed her in her inpatient hemodialysis. She had cardiac monitors that were monitored. She had troponin x2 that was negative. Echocardiogram showed preserved ejection fraction of 55% to 60% with RVSP of 59 consistent with moderate pulmonary hypertension. She had episodes of bradycardia and was taken off beta-majo. She was continued on hydralazine for blood pressure management. She has history of diabetes mellitus. A1c was 5.5. She was continued on Januvia. LDL and triglycerides were elevated. She was given Lipitor 10 mg. She was placed on phosphate binders, Renvela 2400 mg t.i.d. She had a psychotic disorder and endorsed anxiety and depressive symptoms, although, the patient was not psychotic nor manic with no suicidal intent or ideation. She was given Lexapro and Klonopin with Seroquel 300 mg nightly. She was given physical and occupational therapy. The patient is unable to go back home. She was referred to multiple long-term and finally was accepted to [facility]. FINAL DIAGNOSES: 1. Weakness of both legs probably secondary to diabetic peripheral neuropathy. 2. Inability to walk. 3. Diabetes mellitus, type 2. 4. End-stage renal disease, on hemodialysis. 5. Bipolar depression. 6. Hypothyroidism. 7. Hypertension. 8. Hypercholesterolemia. 9. Anxiety disorder. 10. Major depressive disorder. 11. Bradycardia. 12. L5-S1 disc protrusion. 13. Morbid obesity. 14. History of colon cancer. 15. History of hepatitis C. 16. Anemia. 17. Bilateral forearm abrasion, present on admission. DISPOSITION: The patient was discharged to [facility]. DISCHARGE MEDICATIONS: Continue hospital medications. Refer to medication list. Sea Lundberg M.D. I have been assigned to dictate discharge summary on this account and I was not involved in the patient's management. Teresa Higginbotham N.P. DR: EVELYN JOB#: [id number] CC: VIKAS
== END 2017-04-26 14:24 | DRG 73 ==
LOC: EDBD 16:46 → EMR 17:51 → 4W 21:00 → EDBEDREQ 21:52
PROC: 5A1D70Z Performance of Urinary Filtration, Intermittent, Less than 6 Hours Per Day (ICD-10-PCS; principal; 2017-04-21)
DX: E11.42 Type 2 diabetes mellitus with diabetic polyneuropathy (principal); N18.6 End stage renal disease; I13.2 Hypertensive heart and chronic kidney disease with heart failure and with stage 5 chronic kidney disease, or end stage renal disease; E11.22 Type 2 diabetes mellitus with diabetic chronic kidney disease; I27.20 Pulmonary hypertension, unspecified; E11.65 Type 2 diabetes mellitus with hyperglycemia; F33.9 Major depressive disorder, recurrent, unspecified; N39.0 Urinary tract infection, site not specified; E66.01 Morbid (severe) obesity due to excess calories; D63.1 Anemia in chronic kidney disease; S50.811A Abrasion of right forearm, initial encounter; R00.1 Bradycardia, unspecified; R20.0 Anesthesia of skin; I50.9 Heart failure, unspecified; B96.5 Pseudomonas (aeruginosa) (mallei) (pseudomallei) as the cause of diseases classified elsewhere; M51.27 Other intervertebral disc displacement, lumbosacral region; Z68.34 Body mass index [BMI] 34.0-34.9, adult; E03.9 Hypothyroidism, unspecified; R26.2 Difficulty in walking, not elsewhere classified; Z99.2 Dependence on renal dialysis; F41.9 Anxiety disorder, unspecified; S50.812A Abrasion of left forearm, initial encounter; W18.39XA Other fall on same level, initial encounter; Y92.019 Unspecified place in single-family (private) house as the place of occurrence of the external cause; Y99.8 Other external cause status; Z86.19 Personal history of other infectious and parasitic diseases; J44.9 Chronic obstructive pulmonary disease, unspecified; Z72.0 Tobacco use; Z85.038 Personal history of other malignant neoplasm of large intestine
CPT/HCPCS: 36415; 72148; 80048; 80053; 80061; 80069; 82607; 82728; 82746; 82962; 83036; 83540; 83550; 83735; 83880; 84100; 84443; 84484; 84550; 85025; 85610; 85730; 86140; 87081; 93005; 93306; 94664; 97802; 99285

== ENCOUNTER 2017-05-12 03:28 | Inpatient (IN) | payer MEDICARE, MEDICAID ==
[~2017-05-12] VITALS: Ht 162.6 cm; Wt 101.6 kg
[~2017-05-12 03:28] MED LIST changes: +ADALAT20 MG ORAL; +DIOVAN80 MG ORAL; +GABAPENTIN100 MG ORAL; +KLONOPIN1 MG ORAL; +LANSOPRAZOLE30 MG ORAL; +LEVOTHYROXINE25 MCG ORAL; +LEXAPRO20 MG ORAL; +PRAVASTATIN SOD20 M1 ORAL; +QUETIAPINE FUM400 MG ORAL; +RENVELA2.4 GM ORAL; +SYNTHROID25 MCG ORAL; +TORSEMIDE100 MG PO
[2017-05-12] MEDS ORDERED: CLOTRIMAZOLE15 GM TOPIC (03:37)
[2017-05-12] MEDS ORDERED: GABAPENTIN300 MG ORAL (03:37)
[2017-05-12 04:10] VITALS: BP 175/60
--- NOTE | 2017-05-12 04:10 | Emergency Room Report ---
History of Present Illness General Chief Complaint: Pain Source: Patient, Medical Record Present Illness HPI 56-year-old female with complaints of right arm and upper chest wall pain status post AV graft yesterday to right upper extremity. Patient had baldemar/ permacath placed 1 year ago and physician told her they had to transition to graft soon. Denies fever/chills, chest pain, SOB, abd pain, vomiting. Multiple visits to this ER and hospital for ESRD on HD, hypertension, CHF, chronic anemia and type 2 diabetes. Allergies: Coded Allergies: No Known Allergies (Verified , 08/23/06) Patient History Past Medical History: psych hx, other - see HPI Past Surgical History: other - Permacath, AV grafts Pertinent Family History: none Social History: Denies: smoking, alcohol use, drug use Last Menstrual Period: n/a Now: No Immunizations: UTD Reviewed Nursing Documentation: PMH: Agreed; PSxH: Agreed Nursing Documentation-PMH Past Medical History: No History, Except For Hx Cardiac Problems: Yes Hx Hypertension: Yes Hx Diabetes: Yes Hx Cancer: Yes - Colon cancer Hx Gastrointestinal Problems: Yes Hx Dialysis: Yes - M--F, ESRD Hx Neurological Problems: No Review of Systems All Other Systems: negative except mentioned in HPI Physical Exam Vital Signs Date Time Temp Pulse Resp B/P (MAP) Pulse Ox O2 Delivery O2 Flow Rate FiO2 05/12/17 03:20 98.2 59 16 183/79 98 Room Air 98.2 Sp02 EP Interpretation: reviewed, normal General Appearance: normal inspection, well appearing, no apparent distress, alert, GCS 15, non-toxic, obese Head: normocephalic, atraumatic Eyes: bilateral eye PERRL, bilateral eye EOMI ENT: normal ENT inspection, hearing grossly normal, normal pharynx, no angioedema, normal voice, TMs + canals normal, uvula midline, moist mucus membranes Neck: normal inspection, full range of motion, supple, thyroid normal, no meningismus, no bony tend Respiratory: normal inspection, lungs clear, normal breath sounds, no rhonchi, no respiratory distress, no retraction, no accessory muscle use, no wheezing, speaking full sentences, other - Upper chest wall: permacath visualized, no sign of infection around insertion site. No ttp to right upper chest., chest symmetrical Cardiovascular #1: regular rate, rhythm, no edema, no JVD, normal capillary refill, other - Peripheral pulsesi intact Gastrointestinal: normal inspection, normal bowel sounds, non tender, soft, no mass, no peritonitis, non-distended, no guarding, no hernia, no pulsatile mass Genitourinary: no CVA tenderness Musculoskeletal: normal inspection, back normal, normal range of motion, no calf tenderness, pelvis stable, Paul's Sign negative, other - Right upper extremity: Multiple bandages to arm, antecubital fossa and proximal forearm. Some focal ttp to antecubital fossa. No signs of erythema or infection. Neurologic: normal inspection, alert, oriented x3, responsive, washroom cleaner III-XII nml as tested, motor strength/tone normal, cerebellar normal, normal gait, speech normal Psychiatric: normal inspection, judgement/insight normal, mood/affect normal, no suicidal/homicidal ideation, no delusions Skin: normal inspection, normal color, no rash, other - Bruising noted to areas of dressings on right upper arm. Lymphatic: normal inspection, no adenopathy Medical Decision Making Diagnostic Impression: Primary Impression: Right arm pain Additional Impression: Anemia in chronic renal disease Qualified Codes: N18.9 - Chronic kidney disease, unspecified; D63.1 - Anemia in chronic kidney disease ER Course VSS, afebrile Bruising and pain to right upper extremity after patient states she had AV graft placed yesterday Pain is likely postop related Afebrile, no leukocytosis - no obvious infection at this time however hemoglobin 7.4, transfused 2 units PRBCs in ED Med/surg admit Dr Lundberg endorsed as previously admitting hospitalist 2 weeks ago 547am EKG Diagnostic Results Rate: normal Rhythm: NSR ST Segments: no acute changes ASA given to the pt in ED: No Rhythm Strip Diag. Results EP Interpretation: yes Rate: 65 Rhythm: NSR, no PVC's, no ectopy Chest X-Ray Diagnostic Results Chest X-Ray Diagnostic Results : Chest X-Ray Ordered: Yes # of Views/Limited/Complete: 1 View Indication: Chest Pain EP Interpretation: Yes Interpretation: other - CXR very overexposed. Cardiomegaly. Baldemar access visualized. No obvious PNA or effusion however difficulty to interpret. no PTX Electronically Signed by: Dr Patrick Rivera MD Last Vital Signs Date Time Temp Pulse Resp B/P (MAP) Pulse Ox O2 Delivery O2 Flow Rate FiO2 05/12/17 03:20 98.2 59 16 183/79 98 Room Air 98.2 Status: improved Disposition: ADMITTED INPATIENT Condition: Serious PATRICK RIVERA M.D. May 12, 2017 04:10
[2017-05-12 04:55] LABS: HEMATOCRIT 22.5 % (37.0-47.0); HEMOGLOBIN 7.4 G/DL (12.0-16.0); MEAN CORPUSCULAR VOLUME 90 FL (80-99); PLATELET COUNT 130 K/UL (150-450); RED CELL DISTRIBUTION WIDTH 14.2 % (11.6-14.8); WHITE BLOOD COUNT 5.3 K/UL (4.8-10.8)
[2017-05-12 05:00] VITALS: BP 165/59
[2017-05-12 05:09] LABS: ANION GAP 13 mmol/L (5-15); BLOOD UREA NITROGEN 83 mg/dL (7-18); CALCIUM 8.7 MG/DL (8.5-10.1); CARBON DIOXIDE 23 MMOL/L (21-32); CHLORIDE 99 MMOL/L (98-107); CREATININE 9.1 MG/DL (0.55-1.30); SODIUM 135 MMOL/L (136-145)
[2017-05-12 05:23] LABS: ALANINE AMINOTRANSFERASE 21 U/L (12-78); ALBUMIN 2.9 G/DL (3.4-5.0); ALBUMIN/GLOBULIN RATIO 0.7 (1.0-2.7); ALKALINE PHOSPHATASE 144 U/L (46-116); ASPARTATE AMINO TRANSFERASE 25 U/L (15-37); BILIRUBIN,TOTAL 0.4 MG/DL (0.2-1.0); CKMB 7.5 NG/ML (0.0-3.6); CREATINE KINASE 177 U/L (26-308)
[2017-05-12 06:25] VITALS: BP 160/58
[2017-05-12 08:00] VITALS: BP 170/68
--- NOTE | 2017-05-12 08:47 | Diagnostic Imaging Report ---
Indication: Chest pain Technique: XRAY Chest 1v Comparison: 12/25/2016 Findings: Cardiac silhouette is prominent. There is interstitial edema. Right internal jugular permacath is present. Osseous structures are stable. Impression: Cardiomegaly with interstitial edema.
[2017-05-12 09:20] VITALS: BP 151/69
[2017-05-12] MEDS: NovoLOG Insulin Flexpen SUBQ SCH ×5 (11:30→20:36)
--- NOTE | 2017-05-12 14:30 | History & Physical ---
History and Physical History & Physicial Dictated for Int Med-Dr Lundberg no. [id number]. MARIA T MONTEIRO May 12, 2017 14:30
[2017-05-12] MEDS ORDERED: Cefepime HCl 1 GM in D5W 110 ML IVPB ONE (15:00)
[2017-05-12] MEDS ORDERED: Vancomycin 1.5gm/D5W 250ml 250 ML IVPB ONE (16:00)
--- NOTE | 2017-05-12 16:31 | Consultation ---
Consult Note Consult Note 56-year-old female with complaints of right arm and upper chest wall pain status post AV graft yesterday to right upper extremity. Patient had sandra/ permacath placed 1 year ago and physician told her they had to transition to graft soon. Denies fever/chills, chest pain, SOB, abd pain, vomiting. Multiple visits to this ER and hospital for ESRD on HD, hypertension, CHF, chronic anemia and type 2 diabetes. Assessment/Plan conditions --Bilateral leg numbness --diabetic neuropathy --L5-S1 disc protrusion - hypothyroidism - End-stage renal disease, on hemodialysis. - Anemia of chronic kidney disease. - Hypertension./ Pulmonary HTN - Diabetes type 2. - Morbid obesity. - H/O Colon Cancer - H/O Hep C - H/O Depression and Bipolar disease - Psych disease uncoaporative Plan : HD sunday Adjust BP medications watch for bradycardia Per orders ANDREAS BARRERA May 12, 2017 16:31
--- NOTE | 2017-05-12 17:42 | Infectious Diseases Prog Note ---
Assessment/Plan Assessment/Plan Full consult dictated: A) 1) ? right arm cellulitis, r/o line infection, + perma-cath pain 2) pmh noted 3) allergies - negative P) 1) vancomycin and cefepime 2) check blood cultures 3) thank you Subjective Allergies: Coded Allergies: No Known Allergies (Verified , 08/23/06) Objective Vital Signs Last 24 Hour Vital Signs Date Time Temp Pulse Resp B/P (MAP) Pulse Ox O2 Delivery O2 Flow Rate FiO2 05/12/17 09:20 95.9 60 18 151/69 99 Room Air 95.9 05/12/17 08:30 97.1 58 16 170/68 100 Room Air 97.1 05/12/17 08:00 97.1 58 16 170/68 100 Room Air 97.1 05/12/17 06:25 98.2 59 16 160/58 99 Room Air 98.2 05/12/17 05:00 61 14 165/59 100 Room Air 05/12/17 04:57 175/60 05/12/17 04:10 98.2 59 13 175/60 100 Room Air 98.2 05/12/17 03:20 98.2 59 16 183/79 98 Room Air 98.2 Height (Feet): 5 Height (Inches): 4.00 Weight (Pounds): 180 Laboratory Tests Test 05/12/17 04:45 White Blood Count 5.3 K/UL (4.8-10.8) Red Blood Count 2.50 M/UL (4.20-5.40) L Hemoglobin 7.4 G/DL (12.0-16.0) L Hematocrit 22.5 % (37.0-47.0) L Mean Corpuscular Volume 90 FL (80-99) Mean Corpuscular Hemoglobin 29.5 PG (27.0-31.0) Mean Corpuscular Hemoglobin Concent 32.8 G/DL (32.0-36.0) Red Cell Distribution Width 14.2 % (11.6-14.8) Platelet Count 130 K/UL (150-450) L Mean Platelet Volume 8.0 FL (6.5-10.1) Neutrophils (%) (Auto) % (45.0-75.0) Lymphocytes (%) (Auto) % (20.0-45.0) Monocytes (%) (Auto) % (1.0-10.0) Eosinophils (%) (Auto) % (0.0-3.0) Basophils (%) (Auto) % (0.0-2.0) Sodium Level 135 MMOL/L (136-145) L Potassium Level 5.0 MMOL/L (3.5-5.1) Chloride Level 99 MMOL/L (98-107) Carbon Dioxide Level 23 MMOL/L (21-32) Anion Gap 13 mmol/L (5-15) Blood Urea Nitrogen 83 mg/dL (7-18) H Creatinine 9.1 MG/DL (0.55-1.30) H Estimat Glomerular Filtration Rate 4.5 mL/min (>60) Glucose Level 102 MG/DL (74-106) Calcium Level 8.7 MG/DL (8.5-10.1) Total Bilirubin 0.4 MG/DL (0.2-1.0) Aspartate Amino Transf (AST/SGOT) 25 U/L (15-37) Alanine Aminotransferase (ALT/SGPT) 21 U/L (12-78) Alkaline Phosphatase 144 U/L (46-116) H Total Creatine Kinase 177 U/L (26-308) Creatine Kinase MB 7.5 NG/ML (0.0-3.6) H Creatine Kinase MB Relative Index 4.2 Total Protein 7.2 G/DL (6.4-8.2) Albumin 2.9 G/DL (3.4-5.0) L Globulin 4.3 g/dL Albumin/Globulin Ratio 0.7 (1.0-2.7) L Current Medications Medications (Trade) Dose Ordered Sig/Gabriele Route PRN Reason Start Time Stop Time Status Last Admin Dose Admin Acetaminophen/ Hydrocodone Bitart ([place] 5/325) 1 tab Q6H PRN ORAL Moderate-Severe Pain 05/12/17 10:45 05/19/17 10:44 Aspirin (ASA) 81 mg DAILY ORAL 05/13/17 09:00 06/12/17 08:59 Cefepime HCl 500 mg/Dextrose 110 ml @ 220 mls/hr QHS IVPB 05/13/17 21:00 05/20/17 20:59 Clonidine HCl (Catapres Tab) 0.1 mg Q4H PRN ORAL SBP > 160 05/12/17 14:30 06/11/17 14:29 Dextrose (Dextrose 50%) STAT PRN IV Hypoglycemia 05/12/17 10:45 06/11/17 10:44 Escitalopram Oxalate (Lexapro) 20 mg DAILY ORAL 05/13/17 09:00 06/12/17 08:59 Insulin Aspart (NovoLOG) BEFORE MEALS AND HS SUBQ 05/12/17 11:30 06/11/17 11:29 Insulin Aspart (NovoLOG) 3 units NOVOTIAC SUBQ 05/12/17 11:50 06/11/17 11:49 Lamotrigine (LaMICtal) 100 mg BID ORAL 05/12/17 18:00 06/11/17 17:59 Levothyroxine Sodium (Synthroid) 25 mcg ACBREAKFAST ORAL 05/13/17 06:30 06/12/17 06:29 Losartan Potassium (Cozaar) 50 mg DAILY ORAL 05/13/17 09:00 06/12/17 08:59 Pravastatin Sodium (Pravachol) 40 mg BEDTIME ORAL 05/12/17 21:00 06/11/17 20:59 Quetiapine Fumarate (SEROquel) 300 mg BEDTIME ORAL 05/12/17 21:00 06/11/17 20:59 Sitagliptin Phosphate (Januvia) 25 mg ACBREAKFAST ORAL 05/13/17 06:30 06/12/17 06:29 Vancomycin HCl (Vanco rx to dose) 1 ea DAILYPRN PRN MISC Per rx protocol 05/12/17 10:45 06/11/17 10:44 Vancomycin HCl/ Dextrose 250 ml @ 125 mls/hr ONCE ONCE IVPB 05/12/17 16:00 05/12/17 17:59 ELVI CAN May 12, 2017 17:42
[2017-05-12 20:00] VITALS: BP 162/76
--- NOTE | 2017-05-12 20:15 | History and Physical Report ---
DATE OF ADMISSION: 05/12/2017 CHIEF COMPLAINT: The patient is a 56-year-old white female, who presents with a chief complaint of right chest and right shoulder pain. HISTORY OF PRESENT ILLNESS: The patient has a history of end-stage renal disease. The patient is status post right chest PermCath placement and right AV graft placement. The patient has a history of end-stage renal disease. The patient apparently had a right arteriovenous graft placed in the upper extremity yesterday, 05/11/2017. This was done at [facility]. The patient left against medical advice. The patient presented to [place] emergency room complaining of left upper arm and left chest pain. The patient is admitted for chest pain to rule out acute coronary syndrome. PAST MEDICAL HISTORY: Significant for, 1. End-stage renal disease, on hemodialysis every Sunday, Sunday, and Sunday. 2. Hypertension. 3. Congestive heart failure. 4. Diabetes type 2. 5. Anemia of chronic renal disease. 6. Bipolar depression. 7. History of colon cancer. PAST SURGICAL HISTORY: Significant for, 1. Right arteriovenous graft placement on 05/11/2017 as above. 2. Left arteriovenous graft placement. 3. Right chest PermCath placement. CURRENT MEDICATIONS: 1. Aspirin 81 mg one tablet p.o. daily. 2. Coreg 12.5 mg p.o. twice daily. 3. Clonidine 0.1 mg p.o. q.6 hours p.r.n. 4. Lexapro 20 mg p.o. daily. 5. Gabapentin 300 mg p.o. 3 times daily. 6. Lamictal 100 mg p.o. twice daily. 7. Nexium 30 mg p.o. daily. 8. Levoxyl 25 mcg p.o. daily. 9. Pravastatin 20 mg 2 tablets p.o. at bedtime. 10. Seroquel 300 mg p.o. at bedtime. 11. Januvia 25 mg p.o. daily. 12. Diovan 80 mg p.o. daily. ALLERGIES: No known drug allergies. SOCIAL HISTORY: The patient is single and is disabled. The patient denies tobacco or alcohol use. REVIEW OF SYSTEMS: CONSTITUTIONAL: The patient denies weight loss or weight gain. The patient denies fevers or chills. HEENT: The patient denies ear or throat pain. The patient denies headache. CARDIOVASCULAR: The patient denies palpitations or chest pain. The patient does complain of right-sided chest pain as above. ABDOMEN: The patient denies nausea, vomiting, diarrhea, or constipation. GENITOURINARY: The patient denies dysuria or increased frequency of urination. NEUROMUSCULAR: The patient complains of right shoulder pain as above. The patient denies seizures or generalized weakness. PHYSICAL EXAMINATION: VITAL SIGNS: Temperature 98.2, respirations 16, pulse 59 to 61, blood pressure 160 to 170/58 to 69. GENERAL: The patient is a well-developed and well-nourished white female, in no apparent distress. HEENT: Eyes, pupils equal and responsive to light and accommodation. Extraocular movements are intact. NECK: Supple without lymphadenopathy. CHEST: Lungs are clear to auscultation bilaterally without wheezes or rales. CARDIOVASCULAR: Regular rhythm and rate. S1, S2 are normal without murmurs, rubs, or gallops. ABDOMEN: Soft, nontender, and nondistended. Positive bowel sounds. No evidence of hepatosplenomegaly. Currently, no rebound or guarding noted. EXTREMITIES: Negative for clubbing, cyanosis, or edema. RECTAL/GENITAL: Refused. NEUROLOGIC: Cranial nerves II to XII are grossly intact without focal deficits. Motor strength is 5/5 bilaterally. Deep tendon reflexes are 2+ plantar. LABORATORY STUDIES: WBC 5.2, hemoglobin 10.4, hematocrit 22.5, and platelets 138,000. Sodium 135, potassium 5.0, chloride 99, CO2 23, BUN 83, creatinine 9.1, and glucose 102. Chest x-ray reveals cardiomegaly with interstitial edema. ASSESSMENT: This is a 56-year-old white female. 1. Right chest pain. 2. Right shoulder pain. 3. End-stage renal disease. 4. Hypertension. 5. Congestive heart failure. 6. Diabetes type 2. 7. Anemia of chronic renal disease. 8. Bipolar depression. 9. History of colon cancer. TREATMENT: 1. Right chest pain/right arm pain. This may be secondary to right arteriovenous graft, which was placed on 05/11/2017. Serial troponin levels will be performed. 2. End-stage renal disease. A Nephrology consultation has been obtained with Dr. Solis. The patient will require hemodialysis every Sunday, Sunday, and [place] per Dr. Solis. 3. Hypertension. Continue Coreg as above. 4. Congestive heart failure. Continue Coreg as above. 5. Diabetes type 2. Continue Januvia as above. Regular insulin sliding scale has been instituted. 6. Anemia of chronic renal disease. 7. Bipolar depression. Continue Lamictal as above. 8. History of colon cancer. Sukhi Cotter M.D. DR: KRISTINA JOB#: [id number] CC:
[2017-05-12] MEDS ORDERED: Carvedilol 12.5mg tab ORAL SCH (21:00)
[2017-05-12] MEDS: Norco 5mg/325mg tab ORAL PRN (21:24)
[2017-05-13] VITALS: BP 147/71
--- NOTE | 2017-05-13 01:30 | Consultation ---
DATE OF CONSULTATION: 05/12/2017 INFECTIOUS DISEASE CONSULTATION CONSULTING PHYSICIAN: Nehal Nolasco M.D. ATTENDING PHYSICIAN: Sea Lundberg M.D. REASON FOR CONSULTATION: Possible line infection, possible right arm cellulitis. CHIEF COMPLAINT: The patient's chief complaint coming in is right chest pain, PermCath pain, rule out infection, right arm swelling and pain. HISTORY OF PRESENT ILLNESS: This is a 56-year-old female who comes into [facility] with right chest pain and also right arm pain. The patient had right upper extremity AV graft placed recently, however, she she said it was yesterday and she has had a [place] and PermCath placed about a year ago. The patient was admitted for possible line infection and also right arm pain, rule out cellulitis. Orders were entered and she is currently on vancomycin and cefepime. Blood cultures were also ordered and are pending. Infectious Diseases consultation requested for antibiotic management. The patient was placed on vancomycin and cefepime, pending workup. MAR was noted. Orders were noted. Notes were reviewed. REVIEW OF SYSTEMS: CONSTITUTIONAL: She has generalized fatigue. No focal weakness. No fever, chills, night sweats, or weight loss. HEAD AND NECK: No thrush or dysphagia. No sinus tenderness. No neck stiffness. No change in vision. CARDIAC: No pressors. No palpitations. She does have right-sided chest pain around the PermCath site. GASTROINTESTINAL: No nausea, vomiting, or diarrhea. GENITOURINARY: She is hemodialysis patient. No CVA tenderness. No Hernandez. PULMONARY: No congestion, shortness of breath, hemoptysis, or secretions. SKIN: No rash or itching. NEUROLOGIC: No obvious seizures. She has right arm pain postoperatively. Right arm swelling also. LINES: She has a PermCath. EXTREMITIES: No extremity pain. PAST MEDICAL HISTORY: Includes the following. The patient has past medical history of end-stage renal disease on hemodialysis, history of neuropathy, history of hypothyroidism, history of anemia, hypertension, diabetes, morbid obesity, colon cancer, hepatitis C, depression, bipolar disease, psychiatric disease, anemia, chronic kidney disease, L5-S1 disk protrusion, leg numbness. The patient has recent AV graft, she said it was placed yesterday. She has a PermCath. History of CHF. MEDICATIONS: Upon reviewing the MAR, she is on the following medications. She is on cefepime, vancomycin, aspirin, Lexapro, Cozaar, Synthroid, Januvia, Pravachol, Seroquel, Lamictal, clonidine, insulin, hydrocodone. Outside medication are noted and reconciliated. ALLERGIES: No known drug allergies. No antibiotic allergies. FAMILY HISTORY: Noncontributory. Negative for exposure to tuberculosis or cancer. SOCIAL HISTORY: Negative for smoking, alcohol, or drug abuse at this time. PHYSICAL EXAMINATION: VITAL SIGNS: Temperature is 95.9 degrees, pulse rate 86, respiratory rate 18, blood pressure 151/69, saturating 99% on room air. GENERAL: Alert and responsive, in no distress. HEAD AND NECK: Oral exam, no thrush. Eye exam, no icterus. Normocephalic. No facial droop. No neck stiffness. Neck is supple. No JVD. no thrush. HEART: Regular. No rubs, gallop, or murmur. ABDOMEN: Soft. Positive bowel sounds. Nontender. LUNGS: Clear bilaterally. No rhonchi or rales. SKIN: No other rash. MUSCULOSKELETAL: No effusion. Legs are without cellulitis. PERIPHERAL VASCULAR: No cyanosis or gangrene. GENITOURINARY: She has no Hernandez. No CVA tenderness. She has a PermCath. No obvious cellulitis at the site. NEUROLOGIC: Generalized weakness, alert, responsive, nonfocal, and oriented x3. The incisions for the right arm graft are covered. She has mild swelling and warmth. No significant redness noted. LABORATORY DATA: Creatinine 9.1. White count 5.3, hemoglobin 7.4. Blood cultures are pending. IMAGING STUDIES: Chest x-ray showed no acute pulmonary disease. No pneumonia, but interstitial edema was noted. ASSESSMENT AND PLAN: 1. The patient comes in with right chest pain and PermCath pain and also right arm swelling and pain. Rule out possible right arm cellulitis and also line infection. Continue vancomycin and cefepime. Check blood cultures. Certainly, the right arm can be swollen postoperatively, however, to be on the cautious side continue vancomycin and cefepime for right arm cellulitis and possible line infection, pending culture results. Blood cultures have been ordered. Continue vancomycin and cefepime for now. Watch labs. 2. Anemia. 3. End-stage renal disease, on hemodialysis. 4. Elevated creatinine. 5. Diabetes. 6. Hypertension. 7. Blood sugar and blood pressure treatment per primary consultants. 8. Anemia of chronic disease. 9. Hemodialysis per Renal Medicine and Nephrology. 10. History of L5-S1 disk protrusion. 11. Diabetic neuropathy. 12. Numbness. 13. Hypothyroidism. 14. Obesity. 15. Colon cancer. 16. Hepatitis C. 17. Depression. 18. Bipolar disease. 19. Past medical history noted. 20. Social history negative. 21. Allergies negative. No known allergies. 22. Family history noncontributory. 23. MAR was noted. 24. Case discussed with RN. 25. Continue treatment per primary consultants. 26. I also discussed case with Dr. Cotter, who is covering for Dr. Lundberg today. Nehal Nolasco M.D. DR: Khris JOB#: [id number] CC: VIKAS
--- NOTE | 2017-05-13 02:45 | Consultation ---
DATE OF CONSULTATION: 05/12/2017 ATTENDING PHYSICIAN: Sea Lundberg M.D. ADDENDUM: I mentioned this addendum to the patient also there is a concern for right arm graft infection and the patient is on vancomycin and cefepime. The incision looked fairly clean, however, we will await blood culture results and and continue the vancomycin and cefepime in addition for the right possible right arm cellulitis. Nehal Nolasco M.D. DR: GEOVANY JOB#: [id number] CC: VIKAS
[2017-05-13 04:00] VITALS: BP 144/66
[2017-05-13] MEDS: Levothyroxine 25mcg tab ORAL SCH (06:28)
[2017-05-13] MEDS: sitaGLIPtin 25mg tab ORAL SCH (06:28)
[2017-05-13] MEDS: NovoLOG Insulin Flexpen SUBQ SCH ×6 (06:28→20:36)
[2017-05-13 08:05] VITALS: BP 157/55
[2017-05-13] MEDS ORDERED: Losartan 50mg tab ORAL SCH (09:00)
--- NOTE | 2017-05-13 09:24 | Nephrology Progress Note ---
Assessment/Plan Problem List: (1) ESRD (end stage renal disease) on dialysis Assessment --Bilateral leg numbness --diabetic neuropathy --L5-S1 disc protrusion - hypothyroidism - End-stage renal disease, on hemodialysis. - Anemia of chronic kidney disease. - Hypertension./ Pulmonary HTN - Diabetes type 2. - Morbid obesity. - H/O Colon Cancer - H/O Hep C - H/O Depression and Bipolar disease - Psych disease uncoaporative Plan HD in am- per psych mgt Subjective ROS Limited/Unobtainable: No Objective Objective Last 24 Hour Vital Signs Date Time Temp Pulse Resp B/P (MAP) Pulse Ox O2 Delivery O2 Flow Rate FiO2 05/13/17 08:05 97.8 60 18 157/55 99 Room Air 97.8 62 05/13/17 04:00 97.5 57 20 144/66 99 Room Air 97.5 05/13/17 04:00 99 Room Air 05/13/17 00:00 97 Room Air 05/13/17 00:00 97.9 60 20 147/71 97 Room Air 97.9 05/12/17 22:23 98.1 05/12/17 21:24 98.1 05/12/17 21:22 162/76 05/12/17 20:00 98.1 61 19 162/76 98 Room Air 98.1 05/12/17 20:00 98 Room Air Intake and Output 05/12/17 05/13/17 19:00 07:00 Intake Total 120 ml Balance 120 ml Intake Oral 120 ml Height (Feet): 5 Height (Inches): 4.00 Weight (Pounds): 227 General Appearance: no apparent distress, other - uncoaporative Cardiovascular: normal rate Respiratory/Chest: decreased breath sounds Abdomen: soft ANDREAS BARRERA 25, 2018 09:24
[2017-05-13] MEDS: Aspirin Baby 81mg ORAL SCH (09:49)
[2017-05-13 12:00] VITALS: BP 184/77
[2017-05-13] MEDS: Norco 5mg/325mg tab ORAL PRN (12:41)
--- NOTE | 2017-05-13 14:00 | Internal Med Progress Note ---
Subjective Date of Service: May 13, 2017 Physician Name Sukhi Monteiro Attending Physician Sea Lundberg MD Current Medications Medications (Trade) Dose Ordered Sig/Gabriele Route PRN Reason Start Time Stop Time Status Last Admin Dose Admin Acetaminophen/ Hydrocodone Bitart ([place] 5/325) 1 tab Q6H PRN ORAL Moderate-Severe Pain 05/12/17 10:45 05/19/17 10:44 05/13/17 12:41 Aspirin (ASA) 81 mg DAILY ORAL 05/13/17 09:00 06/12/17 08:59 05/13/17 09:49 Cefepime HCl 500 mg/Dextrose 110 ml @ 220 mls/hr QHS IVPB 05/13/17 21:00 05/20/17 20:59 Clonidine HCl (Catapres Tab) 0.1 mg Q4H PRN ORAL SBP > 160 05/12/17 14:30 06/11/17 14:29 05/13/17 12:41 Dextrose (Dextrose 50%) STAT PRN IV Hypoglycemia 05/12/17 10:45 06/11/17 10:44 Escitalopram Oxalate (Lexapro) 20 mg DAILY ORAL 05/13/17 09:00 06/12/17 08:59 05/13/17 09:49 Insulin Aspart (NovoLOG) BEFORE MEALS AND HS SUBQ 05/12/17 11:30 06/11/17 11:29 Lamotrigine (LaMICtal) 100 mg BID ORAL 05/12/17 18:00 06/11/17 17:59 05/13/17 09:49 Levothyroxine Sodium (Synthroid) 25 mcg ACBREAKFAST ORAL 05/13/17 06:30 06/12/17 06:29 05/13/17 06:28 Losartan Potassium (Cozaar) 50 mg DAILY ORAL 05/13/17 09:00 06/12/17 08:59 05/13/17 09:49 Pravastatin Sodium (Pravachol) 40 mg BEDTIME ORAL 05/12/17 21:00 06/11/17 20:59 05/12/17 20:34 Quetiapine Fumarate (SEROquel) 300 mg BEDTIME ORAL 05/12/17 21:00 06/11/17 20:59 05/12/17 20:33 Sitagliptin Phosphate (Januvia) 25 mg ACBREAKFAST ORAL 05/13/17 06:30 4/24/18 06:29 05/13/17 06:28 Vancomycin HCl (Vanco rx to dose) 1 ea DAILYPRN PRN MISC Per rx protocol 05/12/17 10:45 06/11/17 10:44 Allergies: Coded Allergies: No Known Allergies (Verified , 08/23/06) ROS Limited/Unobtainable: No Constitutional: Reports: no symptoms HEENT: Reports: no symptoms Cardiovascular: Reports: no symptoms Respiratory: Reports: no symptoms Gastrointestinal/Abdominal: Reports: no symptoms Genitourinary: Reports: no symptoms Neurologic/Psychiatric: Reports: no symptoms Subjective 56 YO F admitted with right chest and right arm pain. Now Cellulitis right arm. Cover for Int Med-Dr Lundberg. Objective Last Vital Signs Date Time Temp Pulse Resp B/P (MAP) Pulse Ox O2 Delivery O2 Flow Rate FiO2 05/13/17 13:40 97.2 05/13/17 12:41 184/77 05/13/17 12:00 63 22 98 Room Air General Appearance: WD/WN, no apparent distress, alert EENT: PERRL/EOMI, normal ENT inspection, TMs normal Neck: non-tender, normal alignment, supple, normal inspection Cardiovascular: normal peripheral pulses, normal rate, regular rhythm, no gallop/murmur, no JVD Respiratory/Chest: chest wall non-tender, lungs clear, normal breath sounds, no respiratory distress, no accessory muscle use Abdomen: normal bowel sounds, non tender, soft, no organomegaly, no mass Extremities: normal range of motion, non-tender 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 (5) Anemia in chronic renal disease (6) Bipolar depression (7) Cellulitis of arm, right Assessment & Plan: Continue cefepime and vanco-see ID note. (8) ESRD (end stage renal disease) on dialysis Assessment & Plan: Next dialysis Sunday05/14/17-see nephrology note. (9) Hypothyroidism Assessment & Plan: Continue synthroid-check thyroid panel Status: not improved SUKHI MONTEIRO May 13, 2017 14:00
[2017-05-13 16:00] VITALS: BP 159/59
[2017-05-13 17:52] LABS: BASOPHILS % (AUTO) 0.8 % (0.0-2.0); EOSINOPHILS % (AUTO) 3.3 % (0.0-3.0); HEMATOCRIT 25.5 % (37.0-47.0); HEMOGLOBIN 8.4 G/DL (12.0-16.0); MEAN CORPUSCULAR VOLUME 89 FL (80-99); MONOCYTES % (AUTO) 9.4 % (1.0-10.0); NEUTROPHILS % (AUTO) 60.5 % (45.0-75.0); PLATELET COUNT 169 K/UL (150-450); RED BLOOD COUNT 2.86 M/UL (4.20-5.40); RED CELL DISTRIBUTION WIDTH 14.8 % (11.6-14.8); WHITE BLOOD COUNT 5.9 K/UL (4.8-10.8)
[2017-05-13 18:22] LABS: % IRON SATURATION 21 % (15-50); IRON 47 ug/dL (50-175); TOTAL IRON BINDING CAPACITY 224 ug/dL (250-450)
[2017-05-13 18:27] LABS: GAMMA GLUTAMYL TRANSPEPTIDASE 40 U/L (5-85); PHOSPHORUS > 9.0 MG/DL (2.5-4.9)
[2017-05-13 18:30] LABS: ALANINE AMINOTRANSFERASE 15 U/L (12-78); ALBUMIN 2.9 G/DL (3.4-5.0); ALBUMIN/GLOBULIN RATIO 0.7 (1.0-2.7); ALKALINE PHOSPHATASE 157 U/L (46-116); ANION GAP 20 mmol/L (5-15); ASPARTATE AMINO TRANSFERASE 21 U/L (15-37); BILIRUBIN,TOTAL 0.4 MG/DL (0.2-1.0); BLOOD UREA NITROGEN 85 mg/dL (7-18); CALCIUM 8.5 MG/DL (8.5-10.1); CARBON DIOXIDE 17 MMOL/L (21-32); CHLORIDE 100 MMOL/L (98-107); CHOLESTEROL 185 MG/DL (< 200); CREATININE 9.6 MG/DL (0.55-1.30); FERRITIN 923 NG/ML (8-388); HDL CHOLESTEROL 32 MG/DL (40-60); POTASSIUM 4.7 MMOL/L (3.5-5.1); SODIUM 137 MMOL/L (136-145); TRIGLYCERIDES 209 MG/DL (30-150)
[2017-05-13 19:30] LABS: ANION GAP 20 mmol/L (5-15); BLOOD UREA NITROGEN 85 mg/dL (7-18); CALCIUM 8.7 MG/DL (8.5-10.1); CARBON DIOXIDE 16 MMOL/L (21-32); CHLORIDE 102 MMOL/L (98-107); CREATININE 9.5 MG/DL (0.55-1.30); POTASSIUM 4.8 MMOL/L (3.5-5.1); SODIUM 138 MMOL/L (136-145)
[2017-05-13 20:00] VITALS: BP 151/72
[2017-05-13] MEDS ORDERED: Vancomycin 1.5gm/D5W 250ml 250 ML IVPB ONE (20:30)
[2017-05-13] MEDS: Losartan 50mg tab ORAL SCH (20:44)
[2017-05-13] MEDS ORDERED: D5W IVPB SCH (21:00)
[2017-05-13] MEDS ORDERED: CEFEPIME HCL IVPB SCH (21:00)
[2017-05-14] VITALS (7 sets, daily range): BP systolic 139–184; BP diastolic 63–84
[2017-05-14] MEDS: NovoLOG Insulin Flexpen SUBQ SCH ×3 (05:35→16:21)
[2017-05-14] MEDS: Levothyroxine 25mcg tab ORAL SCH (05:53)
[2017-05-14] MEDS: sitaGLIPtin 25mg tab ORAL SCH (05:53)
[2017-05-14] MEDS: Losartan 50mg tab ORAL SCH (09:14)
[2017-05-14] MEDS: Aspirin Baby 81mg ORAL SCH (09:14)
--- NOTE | 2017-05-14 14:41 | Infectious Diseases Prog Note ---
Assessment/Plan Assessment/Plan ASSESSMENT AND PLAN: 1. chest pain, right arm pain, r/o right arm cellulitis/graft infection, ? line infection - continue vancomycin and cefepime - no obvious cellulitis of right arm, likely post-operative swelling - blood culture negative so far - check labs 2. Anemia. 3. End-stage renal disease, on hemodialysis. 4. Elevated creatinine. 5. Diabetes. 6. Hypertension. 7. Blood sugar and blood pressure treatment per primary consultants. 8. Anemia of chronic disease. 9. Hemodialysis per Renal Medicine and Nephrology. 10. History of L5-S1 disk protrusion. 11. Diabetic neuropathy. 12. Numbness. 13. Hypothyroidism. 14. Obesity. 15. Colon cancer. 16. Hepatitis C. 17. Depression. 18. Bipolar disease. 19. Past medical history noted. 20. Social history negative. 21. Allergies negative. No known allergies. 22. Family history noncontributory. 23. MAR was noted. 24. Case discussed with RN. 25. Continue treatment per primary consultants. 26. will f/u Subjective Constitutional: Denies: fever HEENT: Denies: congestion Respiratory: Denies: shortness of breath Cardiovascular: Denies: chest pain Gastrointestinal/Abdominal: Denies: nausea, vomiting, diarrhea Genitourinary: Reports: other - no waller Neurologic: Denies: headache Psychiatric: Denies: depression Skin: Denies: rash Hematologic: Denies: bleeding Musculoskeletal: Reports: pain - + right arm pain Allergies: Coded Allergies: No Known Allergies (Verified , 08/23/06) Objective Vital Signs Last 24 Hour Vital Signs Date Time Temp Pulse Resp B/P (MAP) Pulse Ox O2 Delivery O2 Flow Rate FiO2 05/14/17 12:32 178/72 05/14/17 12:00 97.9 68 18 178/72 98 Room Air 97.9 05/14/17 09:14 158/68 05/14/17 08:00 98.3 64 20 158/68 100 Room Air 98.3 05/14/17 04:00 98.7 83 20 150/70 96 Room Air 98.7 05/14/17 00:00 98.2 60 17 139/63 99 Room Air 98.2 05/14/17 00:00 98.2 60 17 139/63 99 Room Air 98.2 05/13/17 20:44 151/72 05/13/17 20:00 99.1 65 18 151/72 97 Room Air 99.1 05/13/17 20:00 99.1 65 18 151/72 97 Room Air 99.1 05/13/17 16:00 97.7 62 16 159/59 97 Room Air 97.7 Height (Feet): 5 Height (Inches): 4.00 Weight (Pounds): 224 General Appearance: no acute distress HEENT: normocephalic, atraumatic, anicteric, mucous membranes moist Respiratory/Chest: lungs clear, normal breath sounds, no respiratory distress, no accessory muscle use Cardiovascular: normal rate, regular rhythm, no gallop/murmur, no JVD Abdomen: normal bowel sounds, soft, non tender, no organomegaly, non distended Genitourinary: other - no waller, no cva pain Extremities: no cyanosis, other - right arm without obvious cellulitis Skin: no rash 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 Complete 05/12/17 07:57 Rectum VRE Culture - Final NO VANCOMYCIN RESISTANT ENTEROCOCCUS ... Complete Laboratory Tests Test 05/13/17 17:15 White Blood Count 5.9 K/UL (4.8-10.8) Red Blood Count 2.86 M/UL (4.20-5.40) L Hemoglobin 8.4 G/DL (12.0-16.0) L Hematocrit 25.5 % (37.0-47.0) L Mean Corpuscular Volume 89 FL (80-99) Mean Corpuscular Hemoglobin 29.4 PG (27.0-31.0) Mean Corpuscular Hemoglobin Concent 33.1 G/DL (32.0-36.0) Red Cell Distribution Width 14.8 % (11.6-14.8) Platelet Count 169 K/UL (150-450) Mean Platelet Volume 7.6 FL (6.5-10.1) Neutrophils (%) (Auto) 60.5 % (45.0-75.0) Lymphocytes (%) (Auto) 26.0 % (20.0-45.0) Monocytes (%) (Auto) 9.4 % (1.0-10.0) Eosinophils (%) (Auto) 3.3 % (0.0-3.0) H Basophils (%) (Auto) 0.8 % (0.0-2.0) Sodium Level 138 MMOL/L (136-145) Potassium Level 4.8 MMOL/L (3.5-5.1) Chloride Level 102 MMOL/L (98-107) Carbon Dioxide Level 16 MMOL/L (21-32) L Anion Gap 20 mmol/L (5-15) H Blood Urea Nitrogen 85 mg/dL (7-18) H Creatinine 9.5 MG/DL (0.55-1.30) H Estimat Glomerular Filtration Rate 4.3 mL/min (>60) Glucose Level 77 MG/DL (74-106) Hemoglobin A1c 4.8 % (4.3-6.0) Uric Acid 6.0 MG/DL (2.6-7.2) Calcium Level 8.7 MG/DL (8.5-10.1) Phosphorus Level > 9.0 MG/DL (2.5-4.9) H Magnesium Level 2.1 MG/DL (1.8-2.4) Iron Level 47 ug/dL (50-175) L Total Iron Binding Capacity 224 ug/dL (250-450) L Percent Iron Saturation 21 % (15-50) Unsaturated Iron Binding 177 ug/dL (112-346) Ferritin 923 NG/ML (8-388) H Total Bilirubin 0.4 MG/DL (0.2-1.0) Gamma Glutamyl Transpeptidase 40 U/L (5-85) Aspartate Amino Transf (AST/SGOT) 21 U/L (15-37) Alanine Aminotransferase (ALT/SGPT) 15 U/L (12-78) Alkaline Phosphatase 157 U/L (46-116) H Troponin I 0.000 ng/mL (0.000-0.056) Total Protein 7.3 G/DL (6.4-8.2) Albumin 2.9 G/DL (3.4-5.0) L Globulin 4.4 g/dL Albumin/Globulin Ratio 0.7 (1.0-2.7) L Triglycerides Level 209 MG/DL (30-150) H Cholesterol Level 185 MG/DL (< 200) LDL Cholesterol 115 mg/dL (<100) H HDL Cholesterol 32 MG/DL (40-60) L Cholesterol/HDL Ratio 5.8 (3.3-4.4) H Vitamin B12 Level 556 PG/ML (193-986) Folate 9.1 NG/ML (8.6-58.9) Thyroid Stimulating Hormone (TSH) 1.432 uiU/mL (0.358-3.740) Random Vancomycin Level < 2.0 ug/mL Current Medications Medications (Trade) Dose Ordered Sig/Gabriele Route PRN Reason Start Time Stop Time Status Last Admin Dose Admin Acetaminophen/ Hydrocodone Bitart ([place] 5/325) 1 tab Q6H PRN ORAL Moderate-Severe Pain 05/12/17 10:45 05/19/17 10:44 05/13/17 12:41 Aspirin (ASA) 81 mg DAILY ORAL 05/13/17 09:00 06/12/17 08:59 05/14/17 09:14 Cefepime HCl 500 mg/Dextrose 110 ml @ 220 mls/hr QHS IVPB 05/13/17 21:00 05/20/17 20:59 05/13/17 20:00 Clonidine HCl (Catapres Tab) 0.1 mg Q4H PRN ORAL SBP > 160 05/12/17 14:30 06/11/17 14:29 05/14/17 12:32 Dextrose (Dextrose 50%) STAT PRN IV Hypoglycemia 05/12/17 10:45 06/11/17 10:44 Divalproex Sodium (Depakote) 750 mg BEDTIME ORAL 05/14/17 21:00 06/13/17 20:59 Escitalopram Oxalate (Lexapro) 20 mg DAILY ORAL 05/13/17 09:00 06/12/17 08:59 05/14/17 09:14 Insulin Aspart (NovoLOG) BEFORE MEALS AND HS SUBQ 05/12/17 11:30 06/11/17 11:29 Lamotrigine (LaMICtal) 100 mg BID ORAL 05/12/17 18:00 06/11/17 17:59 05/14/17 09:14 Levothyroxine Sodium (Synthroid) 25 mcg ACBREAKFAST ORAL 05/13/17 06:30 06/12/17 06:29 05/14/17 05:53 Losartan Potassium (Cozaar) 50 mg Q12HR ORAL 05/13/17 21:00 06/12/17 20:59 05/14/17 09:14 Pravastatin Sodium (Pravachol) 40 mg BEDTIME ORAL 05/12/17 21:00 06/11/17 20:59 05/13/17 20:43 Quetiapine Fumarate (SEROquel) 300 mg Q12HR ORAL 05/14/17 21:00 06/13/17 20:59 Sitagliptin Phosphate (Januvia) 25 mg ACBREAKFAST ORAL 05/13/17 06:30 06/12/17 06:29 05/14/17 05:53 Vancomycin HCl (Vanco rx to dose) 1 ea DAILYPRN PRN MISC Per rx protocol 05/12/17 10:45 06/11/17 10:44 ELVI CAN May 14, 2017 14:41
--- NOTE | 2017-05-14 16:45 | Nephrology Progress Note ---
Assessment/Plan Problem List: (1) ESRD (end stage renal disease) on dialysis Assessment --Bilateral leg numbness --diabetic neuropathy --L5-S1 disc protrusion - hypothyroidism - End-stage renal disease, on hemodialysis. - Anemia of chronic kidney disease. - Hypertension./ Pulmonary HTN - Diabetes type 2. - Morbid obesity. - H/O Colon Cancer - H/O Hep C - H/O Depression and Bipolar disease - Psych disease uncoaporative Plan HD today per psych mgt Subjective ROS Limited/Unobtainable: No Constitutional: Reports: malaise Objective Objective Last 24 Hour Vital Signs Date Time Temp Pulse Resp B/P (MAP) Pulse Ox O2 Delivery O2 Flow Rate FiO2 05/14/17 16:30 184/84 05/14/17 16:09 97.9 61 20 184/84 Room Air 97.9 05/14/17 13:20 174/74 05/14/17 12:32 178/72 05/14/17 12:00 97.9 68 18 178/72 98 Room Air 97.9 05/14/17 09:14 158/68 05/14/17 08:00 98.3 64 20 158/68 100 Room Air 98.3 05/14/17 04:00 98.7 83 20 150/70 96 Room Air 98.7 05/14/17 00:00 98.2 60 17 139/63 99 Room Air 98.2 05/14/17 00:00 98.2 60 17 139/63 99 Room Air 98.2 05/13/17 20:44 151/72 05/13/17 20:00 99.1 65 18 151/72 97 Room Air 99.1 05/13/17 20:00 99.1 65 18 151/72 97 Room Air 99.1 Intake and Output 05/13/17 05/14/17 19:00 07:00 Intake Total 500 ml 360 ml Balance 500 ml 360 ml Intake Oral 500 ml IV Total 360 ml # Voids 1 2 Laboratory Tests 05/13/17 17:15: White Blood Count 5.9, Red Blood Count 2.86L, Hemoglobin 8.4L, Hematocrit 25.5L , Mean Corpuscular Volume 89, Mean Corpuscular Hemoglobin 29.4, Mean Corpuscular Hemoglobin Concent 33.1, Red Cell Distribution Width 14.8, Platelet Count 169, Mean Platelet Volume 7.6, Neutrophils (%) (Auto) 60.5, Lymphocytes (% ) (Auto) 26.0, Monocytes (%) (Auto) 9.4, Eosinophils (%) (Auto) 3.3H, Basophils (%) (Auto) 0.8, Sodium Level 138, Potassium Level 4.8, Chloride Level 102, Carbon Dioxide Level 16L, Anion Gap 20H, Blood Urea Nitrogen 85H, Creatinine 9.5H, Estimat Glomerular Filtration Rate 4.3, Glucose Level 77, Hemoglobin A1c 4.8, Uric Acid 6.0, Calcium Level 8.7, Phosphorus Level > 9.0H, Magnesium Level 2.1, Iron Level 47L, Total Iron Binding Capacity 224L, Percent Iron Saturation 21, Unsaturated Iron Binding 177, Ferritin 923H, Total Bilirubin 0.4, Gamma Glutamyl Transpeptidase 40, Aspartate Amino Transf (AST/SGOT) 21, Alanine Aminotransferase (ALT/SGPT) 15, Alkaline Phosphatase 157H, Troponin I 0.000, Total Protein 7.3, Albumin 2.9L, Globulin 4.4, Albumin/Globulin Ratio 0.7L, Triglycerides Level 209H, Cholesterol Level 185, LDL Cholesterol 115H, HDL Cholesterol 32L, Cholesterol/HDL Ratio 5.8H, Vitamin B12 Level 556, Folate 9.1, Thyroid Stimulating Hormone (TSH) 1.432, Random Vancomycin Level < 2.0 Height (Feet): 5 Height (Inches): 4.00 Weight (Pounds): 224 General Appearance: no apparent distress Objective no change ANDREAS BARRERA May 14, 2017 16:45
--- NOTE | 2017-05-14 17:39 | Internal Med Progress Note ---
Subjective Date of Service: May 14, 2017 Physician Name Sukhi Cotter Attending Physician Sea Lundberg MD Current Medications Medications (Trade) Dose Ordered Sig/Gabriele Route PRN Reason Start Time Stop Time Status Last Admin Dose Admin Acetaminophen/ Hydrocodone Bitart ([place]if[place] 5/325) 1 tab Q6H PRN ORAL Moderate-Severe Pain 05/12/17 10:45 05/19/17 10:44 05/13/17 12:41 Aspirin (ASA) 81 mg DAILY ORAL 05/13/17 09:00 06/12/17 08:59 05/14/17 09:14 Cefepime HCl 500 mg/Dextrose 110 ml @ 220 mls/hr QHS IVPB 05/13/17 21:00 05/20/17 20:59 05/13/17 20:00 Clonidine HCl (Catapres Tab) 0.1 mg Q4H PRN ORAL SBP > 160 05/12/17 14:30 06/11/17 14:29 05/14/17 12:32 Dextrose (Dextrose 50%) STAT PRN IV Hypoglycemia 05/12/17 10:45 06/11/17 10:44 Divalproex Sodium (Depakote) 750 mg BEDTIME ORAL 05/14/17 21:00 06/13/17 20:59 Escitalopram Oxalate (Lexapro) 20 mg DAILY ORAL 05/13/17 09:00 06/12/17 08:59 05/14/17 09:14 Insulin Aspart (NovoLOG) BEFORE MEALS AND HS SUBQ 05/12/17 11:30 06/11/17 11:29 Lamotrigine (LaMICtal) 100 mg BID ORAL 05/12/17 18:00 06/11/17 17:59 05/14/17 09:14 Levothyroxine Sodium (Synthroid) 25 mcg ACBREAKFAST ORAL 05/13/17 06:30 06/12/17 06:29 05/14/17 05:53 Losartan Potassium (Cozaar) 50 mg Q12HR ORAL 05/13/17 21:00 06/12/17 20:59 05/14/17 09:14 Pravastatin Sodium (Pravachol) 40 mg BEDTIME ORAL 05/12/17 21:00 06/11/17 20:59 05/13/17 20:43 Quetiapine Fumarate (SEROquel) 300 mg Q12HR ORAL 05/14/17 21:00 06/13/17 20:59 Sitagliptin Phosphate (Januvia) 25 mg ACBREAKFAST ORAL 05/13/17 06:30 06/12/17 06:29 05/14/17 05:53 Vancomycin HCl (Vanco rx to dose) 1 ea DAILYPRN PRN MISC Per rx protocol 05/12/17 10:45 06/11/17 10:44 Allergies: Coded Allergies: No Known Allergies (Verified , 08/23/06) ROS Limited/Unobtainable: No Constitutional: Reports: no symptoms HEENT: Reports: no symptoms Cardiovascular: Reports: no symptoms Respiratory: Reports: no symptoms Gastrointestinal/Abdominal: Reports: no symptoms Genitourinary: Reports: no symptoms Neurologic/Psychiatric: Reports: no symptoms Subjective 56 YO F admitted with right chest and right arm pain. Now Cellulitis right arm. Cover for Int Med-Dr Lundberg. Await psych consult Objective Last Vital Signs Date Time Temp Pulse Resp B/P (MAP) Pulse Ox O2 Delivery O2 Flow Rate FiO2 05/14/17 16:30 184/84 05/14/17 16:09 97.9 61 20 Room Air 97.9 05/14/17 12:00 98 Microbiology Date/Time Source Procedure Growth Status 05/12/17 04:45 Blood Blood Culture - Preliminary NO GROWTH AFTER 48 HOURS Resulted 05/12/17 04:30 Blood Blood Culture - Preliminary NO GROWTH AFTER 48 HOURS Resulted 05/12/17 07:57 Nasal Nares Left MRSA Culture - Final NO METHICILLIN RESISTANT STAPH AUREUS... Complete 05/12/17 07:57 Rectum VRE Culture - Final NO VANCOMYCIN RESISTANT ENTEROCOCCUS ... Complete Intake and Output 05/13/17 05/14/17 19:00 07:00 Intake Total 500 ml 360 ml Balance 500 ml 360 ml Intake Oral 500 ml IV Total 360 ml # Voids 1 2 Objective General Appearance: WD/WN, no apparent distress, alert EENT: PERRL/EOMI, normal ENT inspection, TMs normal Neck: non-tender, normal alignment, supple, normal inspection Cardiovascular: normal peripheral pulses, normal rate, regular rhythm, no gallop/murmur, no JVD Respiratory/Chest: chest wall non-tender, lungs clear, normal breath sounds, no respiratory distress, no accessory muscle use Abdomen: normal bowel sounds, non tender, soft, no organomegaly, no mass Extremities: normal range of motion, non-tender Neurologic: vacation guide II-XII grossly normal, no motor/sensory deficits Skin: normal pigmentation, warm/dry Assessment/Plan Problem List: (1) Right arm pain (2) Chest pain (3) HTN (hypertension) Assessment & Plan: Continue losartan (4) Diabetes mellitus, type II Assessment & Plan: Continue novolog sliding scale. (5) Anemia in chronic renal disease (6) Bipolar depression Assessment & Plan: Await psych consult (7) Cellulitis of arm, right Assessment & Plan: Continue cefepime and vanco-see ID note. (8) ESRD (end stage renal disease) on dialysis Assessment & Plan: Next dialysis Sunday05/14/17-see nephrology note. (9) Hypothyroidism Assessment & Plan: Continue synthroid-check thyroid panel Status: SUKHI Jackman May 14, 2017 17:39
[2017-05-14 19:04] LABS: ANION GAP 18 mmol/L (5-15); BLOOD UREA NITROGEN 84 mg/dL (7-18); CALCIUM 8.6 MG/DL (8.5-10.1); CARBON DIOXIDE 20 MMOL/L (21-32); CHLORIDE 103 MMOL/L (98-107); CREATININE 9.8 MG/DL (0.55-1.30); POTASSIUM 4.9 MMOL/L (3.5-5.1); SODIUM 141 MMOL/L (136-145)
[2017-05-14 19:10] LABS: HEMOGLOBIN 7.9 G/DL (12.0-16.0); MEAN CORPUSCULAR VOLUME 90 FL (80-99); PLATELET COUNT 145 K/UL (150-450); RED BLOOD COUNT 2.68 M/UL (4.20-5.40); RED CELL DISTRIBUTION WIDTH 14.1 % (11.6-14.8); WHITE BLOOD COUNT 5.2 K/UL (4.8-10.8)
--- NOTE | 2017-05-14 19:20 | Cardiology Report ---
APPROVED REPORT EKG Measurement Heart [id number] Sinus bradycardia Possible Anterior infarct, age undetermined Abnormal ECG
[2017-05-14] MEDS ORDERED: QUEtiapine 200mg tab ORAL SCH (21:00)
--- NOTE | 2017-05-14 22:41 | Consultation ---
History of Present Illness General Date patient seen: May 14, 2017 Chief Complaint: Pain Present Illness HPI 56-year-old white female, who presents with a chief complaint of right chest and right shoulder pain. the pt has hx of schizoaffective. she has been off her meds for several days. the pt was very irritable and uncooperative. the pt was labile and stated that she has not been taking her meds since sat. the pt denied si/hi. Allergies: Coded Allergies: No Known Allergies (Verified , 08/23/06) Medication History Scheduled Aspirin* (Aspirin*), 81 MG ORAL DAILY, (Reported) Aspirin* (Aspirin*), 81 MG ORAL DAILY, (Reported) Carvedilol* (Carvedilol*), 12.5 MG ORAL EVERY 12 HOURS, (Reported) Carvedilol* (Carvedilol*), 12.5 MG ORAL EVERY 12 HOURS, (Reported) Clonazepam* (Klonopin*), 1 MG ORAL Q6H, (Reported) Clonidine Hcl* (Catapres*), 0.1 MG ORAL EVERY 6 HOURS, (Reported) Clotrimazole* (Lotrimin*), 1 APPLIC TOPIC TWICE A DAY, (Reported) Escitalopram Oxalate* (Lexapro*), 20 MG ORAL DAILY, (Reported) Gabapentin* (Gabapentin*), 300 MG ORAL THREE TIMES A DAY, (Reported) Lamotrigine* (Lamictal*), 100 MG ORAL BID, (Reported) Lamotrigine* (Lamictal*), 100 MG ORAL BID, (Reported) Lansoprazole* (Lansoprazole*), 30 MG ORAL DAILY, (Reported) Levothyroxine Sodium* (Synthroid*), Unknown Dose ORAL DAILY, (Reported) Levothyroxine Sodium* (Levothyroxine Sodium*), 25 MCG ORAL DAILY, (Reported) Pravastatin Sod* (Pravastatin Sod*), 40 MG ORAL BEDTIME, (Reported) Pravastatin Sodium (Pravachol), 40 MG ORAL BEDTIME, (Reported) Quetiapine Fumarate* (Quetiapine Fumarate*), 300 MG ORAL BEDTIME, (Reported) Sitagliptin* (Januvia*), 25 MG ORAL DAILY, (Reported) Sitagliptin* (Januvia*), 25 MG ORAL DAILY, (Reported) Valsartan (Diovan), 80 MG ORAL DAILY, (Reported) Discontinued Medications Clonazepam* (Klonopin*), 0.5 MG ORAL Q6H, (Reported) Discontinued Reason: Medication dose changed Clonidine Hcl* (Catapres*), 0.1 MG ORAL BID, (Reported) Discontinued Reason: MD discontinued med Escitalopram Oxalate* (Lexapro*), 10 MG ORAL DAILY, (Reported) Discontinued Reason: MD discontinued med Gabapentin* (Gabapentin*), 300 MG ORAL BEDTIME, (Reported) Discontinued Reason: MD discontinued med Gabapentin* (Gabapentin*), 100 MG ORAL BEDTIME, (Reported) Discontinued Reason: MD discontinued med Insulin Lispro (Humalog), 0 SUBQ, (Reported) Discontinued Reason: MD discontinued med Nifedipine (Nifedipine*), 60 MG ORAL DAILY, (Reported) Discontinued Reason: MD discontinued med Olmesartan Medoxomil (Benicar), 5 MG ORAL DAILY, (Reported) Discontinued Reason: MD discontinued med Sevelamer Carbonate* (Renvela*), 4 TAB ORAL THREE TIMES A DAY, (Reported) Discontinued Reason: MD discontinued med Sevelamer Carbonate* (Renvela*), 2,400 MG ORAL THREE TIMES A DAY, (Reported) Discontinued Reason: MD discontinued med Torsemide* (Demadex*), 100 MG PO DAILY, (Reported) Discontinued Reason: MD discontinued med Patient History Limited by: medical condition History Provided By: Patient, Medical Record, PMD Healthcare decision maker self Resuscitation status Full Code Advanced Directive on File No Past Medical/Surgical History Past Medical/Surgical History: (1) Fall (2) Multiple injuries due to trauma (3) Bradycardia (4) CHF (congestive heart failure) (5) Inability to walk (6) Weakness of both legs (7) Hypercholesteremia (8) Syncope (9) Costochondritis (10) GERD (gastroesophageal reflux disease) (11) Renal failure (ARF), acute on chronic (12) Clotted renal dialysis arteriovenous graft (13) Anemia in chronic renal disease (14) ESRD (end stage renal disease) on dialysis (15) Diabetes mellitus, type II (16) Chest pain (17) HTN (hypertension) (18) Bipolar depression (19) Cellulitis of arm, right (20) Hypothyroidism Review of Systems Psychiatric: Reports: prior hx, anxiety, depressed feelings, emotional problems Physical Exam General Appearance: no apparent distress, alert, agitated Neurologic: oriented x 3, responsive, depressed affect Last 24 Hour Vital Signs Date Time Temp Pulse Resp B/P (MAP) Pulse Ox O2 Delivery O2 Flow Rate FiO2 05/14/17 19:20 Room Air 05/14/17 16:45 Room Air 05/14/17 16:30 184/84 05/14/17 16:09 97.9 61 20 184/84 Room Air 97.9 05/14/17 13:20 174/74 05/14/17 12:32 178/72 05/14/17 12:00 97.9 68 18 178/72 98 Room Air 97.9 05/14/17 09:14 158/68 05/14/17 08:00 98.3 64 20 158/68 100 Room Air 98.3 05/14/17 04:00 98.7 83 20 150/70 96 Room Air 98.7 05/14/17 00:00 98.2 60 17 139/63 99 Room Air 98.2 05/14/17 00:00 98.2 60 17 139/63 99 Room Air 98.2 Intake and Output 05/13/17 05/14/17 19:00 07:00 Intake Total 500 ml 360 ml Balance 500 ml 360 ml Intake Oral 500 ml IV Total 360 ml # Voids 1 2 Laboratory Tests Test 05/14/17 18:00 White Blood Count 5.2 K/UL (4.8-10.8) Red Blood Count 2.68 M/UL (4.20-5.40) L Hemoglobin 7.9 G/DL (12.0-16.0) L Hematocrit 24.0 % (37.0-47.0) L Mean Corpuscular Volume 90 FL (80-99) Mean Corpuscular Hemoglobin 29.3 PG (27.0-31.0) Mean Corpuscular Hemoglobin Concent 32.7 G/DL (32.0-36.0) Red Cell Distribution Width 14.1 % (11.6-14.8) Platelet Count 145 K/UL (150-450) L Mean Platelet Volume 7.2 FL (6.5-10.1) Neutrophils (%) (Auto) % (45.0-75.0) Lymphocytes (%) (Auto) % (20.0-45.0) Monocytes (%) (Auto) % (1.0-10.0) Eosinophils (%) (Auto) % (0.0-3.0) Basophils (%) (Auto) % (0.0-2.0) Sodium Level 141 MMOL/L (136-145) Potassium Level 4.9 MMOL/L (3.5-5.1) Chloride Level 103 MMOL/L (98-107) Carbon Dioxide Level 20 MMOL/L (21-32) L Anion Gap 18 mmol/L (5-15) H Blood Urea Nitrogen 84 mg/dL (7-18) H Creatinine 9.8 MG/DL (0.55-1.30) H Estimat Glomerular Filtration Rate 4.1 mL/min (>60) Glucose Level 111 MG/DL (74-106) H Calcium Level 8.6 MG/DL (8.5-10.1) Random Vancomycin Level 17.3 ug/mL Height (Feet): 5 Height (Inches): 4.00 Weight (Pounds): 224 Assessment/Plan Status: stable, progressing Assessment/Plan schizoaffective d/o bipolar type the pt meds were restarted the pt is illogical i informed the nurse the pt should not leave Blanka Carrasco M.D. May 14, 2017 22:41
--- NOTE | 2017-05-16 14:16 | Discharge Summary ---
Discharge Summary Discharge Summary Discharge Summary DATE OF ADMISSION: April 21 DATE OF DISCHARGE: 05/14/2017 REASON FOR ADMISSION: 66 years old female with past medical history significant for colon cancer, end-stage renal disease on hemodialysis, diabetes mellitus, hypertension, depression, anxiety, presented to the emergency department with complaint of right arm and upper chest wall pain. Patient status post AV graft placement day prior to presentation to emergency department. AV graft placed in the right upper extremity. Patient had permacath placement 1 year ago and was told by water systems designer that she needs to be transitioned to graft. She denied fever ,chills, chest pain ,shortness of breath ,abdominal pain, vomiting. Upon evaluation in emergency department noted anemia with hemoglobin 7.4 , hematocrit 22.5 no leukocytosis. BUN 85, creat 9.6 consistent with known history of end-stage renal disease. Troponin negative. Chest x-ray revealed cardiomegaly with interstitial edema. EKG revealed normal sinus with no acute ischemic changes. Vital signs with elevated blood pressure 183/79. Noted bruising in the right upper extremity. Patient was afebrile. ED doctor ordered transfusion of 2 units of packed red blood cell in emergency department. In the emergency room patient declined ultrasound of the right upper extremity, was extremely uncooperative, disrespectful to US general technician and wanted to leave against medical advice. Emergency room physician was able to convince the patient to stay.Patient was admitted to [facility] floor for further management with diagnosis of right arm pain, anemia of chronic renal disease, end-stage renal disease, hypertension ,diabetes type 2 ,bipolar disorder, depression, congestive heart failure, history of colon cancer CONSULTANTS: Dr. Solis -water systems designer, Dr. Mao - -infectious disease specialist Dr Beckett -psychiatrist HOSPITAL COURSE: Patient admitted to medical surgical floor. Patient started on empiric antibiotic; there was concern about cellulitis of right arm, rule out graft infection. Blood cultures were drawn , back upon this dictation - negative. Patient received 1 unit of packed red blood cells. Anemia workup was consistent with anemia of chronic disease and high ferritin. Allergist closely followed patient. Patient had hemodialysis as per nephrology orders; electrolytes and renal parameters were closely monitored and electrolytes were corrected as needed. Home medications were resumed . TSH was within normal limits. Current dose of TSH was continued. Patient had no fever, no leukocytosis. Pain was addressed and controlled. Bowel regimen instituted. DVT prophylaxis provided . Blood sugar was managed with sliding scale of insulin. Psychiatrist evaluated the patient and diagnosed the patient with schizoaffective disorder bipolar type. Patient was started on psychiatric medication regimen as per psychiatrist. Blood pressure was not controlled with currebt regimen, likely due to patient uncooperative and agitation. Patient decided to sign AGAINST MEDICAL ADVICE after hemodialysis was completed.. Them risks and consequences of signing against medical advice were discussed with the patient. Patient verbalized understanding, signed the form and left. FINAL DIAGNOSES: Cellulitis right arm Rule out graft infection Right arm pain End-stage renal disease on hemodialysis Hypertension Diabetes Anemia of chronic renal disease requiring blood transfusion Schizoaffective disorder bipolar type History of colon cancer Hypothyroidism [] I have been assigned to dictate discharge summary for this account. I was not involved in the patient's management. Alisha Kemp NP ([place]) May 16, 2017 14:16
== END 2017-05-14 19:25 | disposition left against medical advice (07) | DRG 602 ==
LOC: EDBD 03:28 → EMR 03:55 → 4W 05:05 → EDBEDREQ 05:33
PROC: 30233N1 Transfusion of Nonautologous Red Blood Cells into Peripheral Vein, Percutaneous Approach (ICD-10-PCS; principal; 2017-05-12)
PROC: 5A1D70Z Performance of Urinary Filtration, Intermittent, Less than 6 Hours Per Day (ICD-10-PCS; 2017-05-14)
DX: L03.113 Cellulitis of right upper limb (principal); N18.6 End stage renal disease; I13.2 Hypertensive heart and chronic kidney disease with heart failure and with stage 5 chronic kidney disease, or end stage renal disease; T82.7XXA Infection and inflammatory reaction due to other cardiac and vascular devices, implants and grafts, initial encounter; R07.89 Other chest pain; M79.601 Pain in right arm; E11.22 Type 2 diabetes mellitus with diabetic chronic kidney disease; E11.40 Type 2 diabetes mellitus with diabetic neuropathy, unspecified; E03.9 Hypothyroidism, unspecified; D63.1 Anemia in chronic kidney disease; Z99.2 Dependence on renal dialysis; E66.01 Morbid (severe) obesity due to excess calories; Z85.038 Personal history of other malignant neoplasm of large intestine; F25.0 Schizoaffective disorder, bipolar type; M51.27 Other intervertebral disc displacement, lumbosacral region; Z86.19 Personal history of other infectious and parasitic diseases; Y83.2 Surgical operation with anastomosis, bypass or graft as the cause of abnormal reaction of the patient, or of later complication, without mention of misadventure at the time of the procedure
CPT/HCPCS: 36415; 71045; 80048; 80053; 80061; 80202; 82550; 82553; 82607; 82728; 82746; 82962; 82977; 83036; 83540; 83550; 83735; 84100; 84443; 84484; 84550; 85025; 86850; 86900; 86901; 86920; 87040; 87081; 93005; 99285; J1815

== ENCOUNTER 2017-11-07 09:37 | Inpatient (IN) | payer MEDICARE, MEDICAID ==
[~2017-11-07] VITALS: Ht 165.1 cm; Wt 101.2 kg
[~2017-11-07 09:37] MED LIST changes: +CLOTRIMAZOLE15 GM TOPIC
[2017-11-07 09:47] VITALS: BP 144/62
--- NOTE | 2017-11-07 09:50 | Emergency Room Report ---
History of Present Illness General Chief Complaint: Dizziness Source: Patient Present Illness HPI Patient presents with dizziness and weakness. She has right leg weakness and is unable to ambulate. She has a wheelchair at home. She has loose stools and can't control her bowels. She denies melena or hematochezia. There is no abdominal pain or cramping. She does make urine, and denies dysuria. She says she was evaluated at [facility] yesterday and they discharged her. She was unable to be at home on her own. She was supposed to go to dialysis today however was unable to go. Recently she was at a rehab facility, but discharged to home. She has anxiety and depression about being at home and unable to care for herself. H/O bipolar disorder. She denies fevers, headache, chills, cough, dyspnea, chest pain. No joint pain , calf pain. Edema present bilaterally, unchanged. Allergies: Coded Allergies: No Known Allergies (Verified , 08/23/06) Patient History Past Medical History: see triage record Social History: Denies: smoking Social History Narrative at home Reviewed Nursing Documentation: PMH: Agreed; PSxH: Agreed Nursing Documentation-PM Past Medical History: No History, Except For Hx Cardiac Problems: Yes - palpitations Hx Hypertension: Yes Hx Diabetes: Yes Hx Cancer: No Hx Gastrointestinal Problems: No Hx Dialysis: Yes Hx Neurological Problems: No Review of Systems All Other Systems: negative except mentioned in HPI Physical Exam Vital Signs Date Time Temp Pulse Resp B/P (MAP) Pulse Ox O2 Delivery O2 Flow Rate FiO2 11/07/17 09:28 98.4 62 20 108/72 99 98.4 Sp02 EP Interpretation: reviewed, normal General Appearance: well appearing, no apparent distress, GCS 15, Chronically Ill Head: normocephalic Eyes: bilateral eye normal inspection, bilateral eye PERRL ENT: moist mucus membranes Neck: supple Respiratory: chest non-tender, lungs clear, decreased breath sounds Cardiovascular #1: regular rate, rhythm, edema Cardiovascular #2: 2+ radial (R) - fistula R upper arm with thrill Gastrointestinal: normal inspection, normal bowel sounds, non tender, no mass, non-distended, overweight Genitourinary: no CVA tenderness Musculoskeletal: back normal, normal range of motion, no calf tenderness Neurologic: alert, oriented x3, sensory intact, motor weakness - R voluntary Psychiatric: depressed affect, anxious Skin: warm/dry, other - ecchymoses Medical Decision Making Diagnostic Impression: Primary Impression: ESRD (end stage renal disease) on dialysis Additional Impressions: CHF (congestive heart failure) Qualified Codes: I50.9 - Heart failure, unspecified Weakness of both legs Diarrhea Qualified Codes: R19.7 - Diarrhea, unspecified Incontinence of feces Qualified Codes: R15.9 - Full incontinence of feces Bipolar depression Anemia in chronic renal disease Qualified Codes: N18.6 - End stage renal disease; D63.1 - Anemia in chronic kidney disease; Z99.2 - Dependence on renal dialysis ER Course Patient with dialysis presents with weakness diarrhea and inability to care for herself. Differential includes electrolyte abnormality, acute myocardial infarction, occult infection, gastroenteritis amongst others. She will be evaluated with EKG, chest x-ray and labs. Because of dialysis IV hydration will be held. Loperamide is given for loose stools. There is no focality of her neurologic exam and CT of head is not indicated. (She does complain of more weakness of R leg, but exam is against focality.) EKG without injury. CXR with CHF. Labs with normal WBC. Anemia (chronic). CMP with CRF. Elevated BNP. UA not collected. Slightly improved with treatment. Patient still with weakness. She'll need dialysis probably tomorrow. She's admitted to medical floor under the care of Dr. Lundberg. Social service consult is been ordered. Laboratory Tests Test 11/07/17 10:13 11/08/17 05:05 White Blood Count 8.2 K/UL (4.8-10.8) 8.5 K/UL (4.8-10.8) Red Blood Count 2.84 M/UL (4.20-5.40) L 2.66 M/UL (4.20-5.40) L Hemoglobin 8.5 G/DL (12.0-16.0) L 8.2 G/DL (12.0-16.0) L Hematocrit 27.2 % (37.0-47.0) L 25.9 % (37.0-47.0) L Mean Corpuscular Volume 96 FL (80-99) 97 FL (80-99) Mean Corpuscular Hemoglobin 29.9 PG (27.0-31.0) 30.7 PG (27.0-31.0) Mean Corpuscular Hemoglobin Concent 31.3 G/DL (32.0-36.0) L 31.6 G/DL (32.0-36.0) L Red Cell Distribution Width 13.9 % (11.6-14.8) 14.5 % (11.6-14.8) Platelet Count 189 K/UL (150-450) 173 K/UL (150-450) Mean Platelet Volume 7.4 FL (6.5-10.1) 7.9 FL (6.5-10.1) Neutrophils (%) (Auto) 70.4 % (45.0-75.0) 60.3 % (45.0-75.0) Lymphocytes (%) (Auto) 14.7 % (20.0-45.0) L 24.3 % (20.0-45.0) Monocytes (%) (Auto) 11.1 % (1.0-10.0) H 9.5 % (1.0-10.0) Eosinophils (%) (Auto) 2.5 % (0.0-3.0) 4.8 % (0.0-3.0) H Basophils (%) (Auto) 1.4 % (0.0-2.0) 1.1 % (0.0-2.0) Prothrombin Time 12.0 SEC (9.30-11.50) H Prothrombin Time INR 1.1 (0.9-1.1) PTT 28 SEC (23-33) Sodium Level 137 MMOL/L (136-145) 137 MMOL/L (136-145) Potassium Level 4.3 MMOL/L (3.5-5.1) 4.3 MMOL/L (3.5-5.1) Chloride Level 100 MMOL/L (98-107) 101 MMOL/L (98-107) Carbon Dioxide Level 30 MMOL/L (21-32) 30 MMOL/L (21-32) Anion Gap 7 mmol/L (5-15) 7 mmol/L (5-15) Blood Urea Nitrogen 40 mg/dL (7-18) H 50 mg/dL (7-18) H Creatinine 6.8 MG/DL (0.55-1.30) H 8.0 MG/DL (0.55-1.30) H Estimate Glomerular Filtration Rate 6.3 mL/min (>60) 5.2 mL/min (>60) Glucose Level 121 MG/DL (74-106) H 97 MG/DL (74-106) Calcium Level 8.7 MG/DL (8.5-10.1) 8.8 MG/DL (8.5-10.1) Total Bilirubin 0.4 MG/DL (0.2-1.0) 0.4 MG/DL (0.2-1.0) Aspartate Amino Transferase (AST) 27 U/L (15-37) 16 U/L (15-37) Alanine Aminotransferase (ALT) 24 U/L (12-78) 26 U/L (12-78) Alkaline Phosphatase 119 U/L (46-116) H 110 U/L (46-116) Total Creatine Kinase 442 U/L (26-308) H 265 U/L (26-308) Troponin I 0.025 ng/mL (0.000-0.056) C-Reactive Protein, Quantitative 2.0 mg/dL (0.00-0.90) H Pro-B-Type Natriuretic Peptide > 61548 pg/mL (0-125) H > 20742 pg/mL (0-125) H Total Protein 6.4 G/DL (6.4-8.2) 6.1 G/DL (6.4-8.2) L Albumin 2.6 G/DL (3.4-5.0) L 2.5 G/DL (3.4-5.0) L Globulin 3.8 g/dL 3.6 g/dL Albumin/Globulin Ratio 0.7 (1.0-2.7) L 0.7 (1.0-2.7) L Hemoglobin A1c 4.9 % (4.3-6.0) Uric Acid 4.8 MG/DL (2.6-7.2) Phosphorus Level 8.0 MG/DL (2.5-4.9) H Magnesium Level 2.6 MG/DL (1.8-2.4) H Iron Level 60 ug/dL (50-175) Total Iron Binding Capacity 156 ug/dL (250-450) L Percent Iron Saturation 38 % (15-50) Unsaturated Iron Binding 96 ug/dL (112-346) L Ferritin 576 NG/ML (8-388) H Gamma Glutamyl Transpeptidase 27 U/L (5-85) Triglycerides Level 163 MG/DL (30-150) H Cholesterol Level 204 MG/DL (< 200) H LDL Cholesterol 133 mg/dL (<100) H HDL Cholesterol 39 MG/DL (40-60) L Cholesterol/HDL Ratio 5.2 (3.3-4.4) H Vitamin B12 Level 466 PG/ML (193-986) Folate 10.4 NG/ML (8.6-58.9) Thyroid Stimulating Hormone (TSH) 2.306 uiU/mL (0.358-3.740) EKG Diagnostic Results Rate: bradycardiac Rhythm: NSR ST Segments: no acute changes Rhythm Strip Diag. Results EP Interpretation: yes Rhythm: no PVC's, no ectopy, other - siomara Chest X-Ray Diagnostic Results Chest X-Ray Diagnostic Results : Chest X-Ray Ordered: Yes # of Views/Limited/Complete: 1 View Indication: Other EP Interpretation: Yes Interpretation: no effusion, no pneumothorax, other - chf Impression: Other Electronically Signed by: Alejo Harvey MD Status: improved Disposition: ADMITTED INPATIENT Condition: Serious Alejo Harvey M.D. Nov 07, 2017 09:50
[2017-11-07] MEDS ORDERED: Loperamide 2mg cap ORAL ONE (10:00)
[2017-11-07 10:30] LABS: BASOPHILS % (AUTO) 1.4 % (0.0-2.0); EOSINOPHILS % (AUTO) 2.5 % (0.0-3.0); HEMATOCRIT 27.2 % (37.0-47.0); HEMOGLOBIN 8.5 G/DL (12.0-16.0); LYMPHOCYTES % (AUTO) 14.7 % (20.0-45.0); MEAN CORPUSCULAR VOLUME 96 FL (80-99); MONOCYTES % (AUTO) 11.1 % (1.0-10.0); NEUTROPHILS % (AUTO) 70.4 % (45.0-75.0); PLATELET COUNT 189 K/UL (150-450); RED BLOOD COUNT 2.84 M/UL (4.20-5.40); RED CELL DISTRIBUTION WIDTH 13.9 % (11.6-14.8); WHITE BLOOD COUNT 8.2 K/UL (4.8-10.8)
[2017-11-07 10:42] LABS: INR 1.1 (0.9-1.1)
[2017-11-07] MEDS ORDERED: QUETIAPINE FUMA25 MG ORAL (10:42)
[2017-11-07] MEDS ORDERED: TORSEMIDE10 MG PO (10:42)
[2017-11-07] MEDS ORDERED: RENVELA2.4 GM ORAL (10:42)
[2017-11-07] MEDS ORDERED: ACETAMINOPHEN325 M1 ORAL (10:42)
[2017-11-07 10:52] LABS: ANION GAP 7 mmol/L (5-15); BLOOD UREA NITROGEN 40 mg/dL (7-18); CALCIUM 8.7 MG/DL (8.5-10.1); CARBON DIOXIDE 30 MMOL/L (21-32); CHLORIDE 100 MMOL/L (98-107); CREATININE 6.8 MG/DL (0.55-1.30); POTASSIUM 4.3 MMOL/L (3.5-5.1); SODIUM 137 MMOL/L (136-145)
[2017-11-07 11:03] LABS: ALANINE AMINOTRANSFERASE 24 U/L (12-78); ALBUMIN 2.6 G/DL (3.4-5.0); ALBUMIN/GLOBULIN RATIO 0.7 (1.0-2.7); ALKALINE PHOSPHATASE 119 U/L (46-116); ASPARTATE AMINO TRANSFERASE 27 U/L (15-37); BILIRUBIN,TOTAL 0.4 MG/DL (0.2-1.0); CREATINE KINASE 442 U/L (26-308)
--- NOTE | 2017-11-07 11:23 | Diagnostic Imaging Report ---
Indication: Chest pain Technique: One view of the chest Comparison: none Findings: The heart is enlarged. There is bilateral interstitial edema. Pleural spaces are clear. Previously demonstrated tunneled dialysis catheter is no longer present Impression: Cardiomegaly Bilateral interstitial edema
[2017-11-07 11:48] VITALS: BP 145/57
[2017-11-07] MEDS ORDERED: Miralax 17gm pkt ORAL PRN (12:30)
[2017-11-07] MEDS ORDERED: Zolpidem 5mg tab ORAL PRN (12:30)
[2017-11-07] MEDS ORDERED: Albuterol/Ipratropium 3ml neb HHN PRN (12:30)
[2017-11-07 12:34] VITALS: BP 145/69
--- NOTE | 2017-11-07 13:54 | Consultation ---
History of Present Illness General Date patient seen: Nov 07, 2017 Chief Complaint: Dizziness Present Illness HPI 56 year old female with hx of ESRF on HD, seizures, DM, Hypothyroid presented to ER with CC of dizziness and weakness. She has right leg weakness and is unable to ambulate. She has a wheelchair at home. Apparently she missed her dialysis and called 911. Her CXR showed pulmonary edema. She is admitted for further management. Allergies: Coded Allergies: No Known Allergies (Verified , 08/23/06) Medication History Scheduled Aspirin* (Aspirin*), 81 MG ORAL DAILY, (Reported) Aspirin* (Aspirin*), 81 MG ORAL DAILY, (Reported) Carvedilol* (Carvedilol*), 12.5 MG ORAL EVERY 12 HOURS, (Reported) Carvedilol* (Carvedilol*), 12.5 MG ORAL EVERY 12 HOURS, (Reported) Clonazepam* (Klonopin*), 1 MG ORAL Q6H, (Reported) Clonidine Hcl* (Catapres*), 0.1 MG ORAL EVERY 6 HOURS, (Reported) Clotrimazole* (Lotrimin*), 1 APPLIC TOPIC TWICE A DAY, (Reported) Escitalopram Oxalate* (Lexapro*), 20 MG ORAL DAILY, (Reported) Gabapentin* (Gabapentin*), 300 MG ORAL THREE TIMES A DAY, (Reported) Lamotrigine* (Lamictal*), 100 MG ORAL BID, (Reported) Lamotrigine* (Lamictal*), 100 MG ORAL BID, (Reported) Lansoprazole* (Lansoprazole*), 30 MG ORAL DAILY, (Reported) Levothyroxine Sodium* (Synthroid*), Unknown Dose ORAL DAILY, (Reported) Levothyroxine Sodium* (Levothyroxine Sodium*), 25 MCG ORAL DAILY, (Reported) Pravastatin Sod* (Pravastatin Sod*), 40 MG ORAL BEDTIME, (Reported) Pravastatin Sodium (Pravachol), 40 MG ORAL BEDTIME, (Reported) Quetiapine Fumarate* (Quetiapine Fumarate*), 300 MG ORAL BEDTIME, (Reported) Quetiapine Fumarate* (Seroquel*), 25 MG ORAL DAILY, (Reported) Sevelamer Carbonate* (Renvela*), 2,400 MG ORAL THREE TIMES A DAY, (Reported) Sitagliptin* (Januvia*), 25 MG ORAL DAILY, (Reported) Sitagliptin* (Januvia*), 25 MG ORAL DAILY, (Reported) Torsemide* (Demadex*), 10 MG PO DAILY, (Reported) Valsartan (Diovan), 80 MG ORAL DAILY, (Reported) Scheduled PRN Acetaminophen* (Acetaminophen 325MG Tablet*), 650 MG ORAL QID PRN for Pain Scale (3-5), (Reported) Patient History Healthcare decision maker Resuscitation status Full Code Advanced Directive on File Past Medical/Surgical History Past Medical/Surgical History: (1) CHF (congestive heart failure) (2) Diabetes mellitus, type II (3) Hypothyroidism (4) Bipolar depression (5) ESRD (end stage renal disease) on dialysis Review of Systems All Other Systems: negative except mentioned in HPI Physical Exam General Appearance: WD/WN Lines, tubes and drains: peripheral HEENT: normocephalic, atraumatic Neck: non-tender, normal alignment Respiratory/Chest: chest wall non-tender, lungs clear Breasts: no masses Cardiovascular/Chest: normal peripheral pulses Abdomen: normal bowel sounds, non tender Genitourinary/Rectal: normal genital exam, normal rectal exam Extremities: normal range of motion Skin Exam: normal pigmentation Last 24 Hour Vital Signs Date Time Temp Pulse Resp B/P (MAP) Pulse Ox O2 Delivery O2 Flow Rate FiO2 11/07/17 12:34 97.9 56 20 145/69 (94) 93 97.9 11/07/17 12:06 57 13 145/57 99 11/07/17 11:48 97.8 57 15 145/57 99 Room Air 97.8 11/07/17 09:56 98.4 11/07/17 09:47 57 15 144/62 100 Room Air 11/07/17 09:28 98.4 62 20 108/72 99 98.4 Laboratory Tests Test 11/07/17 10:13 White Blood Count 8.2 K/UL (4.8-10.8) Red Blood Count 2.84 M/UL (4.20-5.40) L Hemoglobin 8.5 G/DL (12.0-16.0) L Hematocrit 27.2 % (37.0-47.0) L Mean Corpuscular Volume 96 FL (80-99) Mean Corpuscular Hemoglobin 29.9 PG (27.0-31.0) Mean Corpuscular Hemoglobin Concent 31.3 G/DL (32.0-36.0) L Red Cell Distribution Width 13.9 % (11.6-14.8) Platelet Count 189 K/UL (150-450) Mean Platelet Volume 7.4 FL (6.5-10.1) Neutrophils (%) (Auto) 70.4 % (45.0-75.0) Lymphocytes (%) (Auto) 14.7 % (20.0-45.0) L Monocytes (%) (Auto) 11.1 % (1.0-10.0) H Eosinophils (%) (Auto) 2.5 % (0.0-3.0) Basophils (%) (Auto) 1.4 % (0.0-2.0) Prothrombin Time 12.0 SEC (9.30-11.50) H Prothromb Time International Ratio 1.1 (0.9-1.1) Activated Partial Thromboplast Time 28 SEC (23-33) Sodium Level 137 MMOL/L (136-145) Potassium Level 4.3 MMOL/L (3.5-5.1) Chloride Level 100 MMOL/L (98-107) Carbon Dioxide Level 30 MMOL/L (21-32) Anion Gap 7 mmol/L (5-15) Blood Urea Nitrogen 40 mg/dL (7-18) H Creatinine 6.8 MG/DL (0.55-1.30) H Estimat Glomerular Filtration Rate 6.3 mL/min (>60) Glucose Level 121 MG/DL (74-106) H Calcium Level 8.7 MG/DL (8.5-10.1) Total Bilirubin 0.4 MG/DL (0.2-1.0) Aspartate Amino Transf (AST/SGOT) 27 U/L (15-37) Alanine Aminotransferase (ALT/SGPT) 24 U/L (12-78) Alkaline Phosphatase 119 U/L (46-116) H Total Creatine Kinase 442 U/L (26-308) H Troponin I 0.025 ng/mL (0.000-0.056) Pro-B-Type Natriuretic Peptide > 26542 pg/mL (0-125) H Total Protein 6.4 G/DL (6.4-8.2) Albumin 2.6 G/DL (3.4-5.0) L Globulin 3.8 g/dL Albumin/Globulin Ratio 0.7 (1.0-2.7) L Height (Feet): 5 Height (Inches): 5.00 Weight (Pounds): 180 Medications Current Medications Medications (Trade) Dose Ordered Sig/Gabriele Route PRN Reason Start Time Stop Time Status Last Admin Dose Admin Acetaminophen (Tylenol) 650 mg Q4H PRN ORAL fever (temp>100.5F) 11/07/17 12:30 12/07/17 12:29 Albuterol/ Ipratropium (Albuterol/ Ipratropium) 3 ml Q6H PRN HHN dyspnea 11/07/17 12:30 11/12/17 12:29 Carvedilol (Coreg) 12.5 mg EVERY 12 HOURS ORAL 11/07/17 21:00 12/07/17 20:59 Clonazepam (KlonoPIN) 1 mg Q6H PRN ORAL ANXIETY 11/07/17 12:30 11/14/17 12:29 11/07/17 13:12 Clonidine HCl (Catapres Tab) 0.1 mg Q4H PRN ORAL For High Blood Pressure 11/07/17 12:30 12/07/17 12:29 Dextrose (Dextrose 50%) 25 ml STAT PRN IV Hypoglycemia 11/07/17 12:30 12/07/17 12:29 Dextrose (Dextrose 50%) 50 ml STAT PRN IV Hypoglycemia 11/07/17 12:30 12/07/17 12:29 Gabapentin (Neurontin) 300 mg Q8HR ORAL 11/07/17 14:00 12/07/17 13:59 11/07/17 13:12 Heparin Sodium (Porcine) (Heparin 5000 units/ml) 5,000 units EVERY 12 HOURS SUBQ 11/07/17 21:00 12/07/17 20:59 Insulin Aspart (NovoLOG) BEFORE MEALS AND HS SUBQ 11/07/17 16:30 12/07/17 16:29 Lamotrigine (LaMICtal) 100 mg Q12HR ORAL 11/07/17 21:00 12/07/17 20:59 Ondansetron HCl (Zofran) 4 mg Q6H PRN IVP Nausea & Vomiting 11/07/17 12:30 12/07/17 12:29 Polyethylene Glycol (Miralax) 17 gm HSPRN PRN ORAL Constipation 11/07/17 12:30 12/07/17 12:29 Quetiapine Fumarate (SEROquel) 300 mg BEDTIME ORAL 11/07/17 21:00 12/07/17 20:59 Sevelamer Carbonate (Renvela) 2,400 mg THREE TIMES A DAY ORAL 11/07/17 13:00 12/07/17 12:59 11/07/17 13:12 Sitagliptin Phosphate (Januvia) 25 mg ACBREAKFAST ORAL 11/08/17 06:30 12/08/17 06:29 Zolpidem Tartrate (Ambien) 5 mg HSPRN PRN ORAL Insomnia 11/07/17 12:30 11/14/17 12:29 Assessment/Plan Problem List: (1) Pulmonary edema ICD Codes: J81.1 - Chronic pulmonary edema SNOMED: 58869328 (2) ESRD (end stage renal disease) on dialysis ICD Codes: N18.6 - End stage renal disease; Z99.2 - Dependence on renal dialysis SNOMED: 483474215 (3) Seizure disorder ICD Codes: G40.909 - Epilepsy, unspecified, not intractable, without status epilepticus SNOMED: 846021760 (4) Non-compliance with renal dialysis ICD Codes: Z91.15 - Patient's noncompliance with renal dialysis SNOMED: 553648771695770 (5) Anemia in chronic renal disease ICD Codes: N18.9 - Chronic kidney disease, unspecified; D63.1 - Anemia in chronic kidney disease SNOMED: 196395293, 124985652 (6) Hypothyroidism ICD Codes: E03.9 - Hypothyroidism, unspecified SNOMED: 06113941 (7) HTN (hypertension) ICD Codes: I10 - Essential (primary) hypertension SNOMED: 65927023 (8) Diabetes mellitus, type II ICD Codes: E11.9 - Type 2 diabetes mellitus without complications SNOMED: 90278243 Assessment/Plan symptomatic treatment psyc to see dialysis by nephrology sliding scale diabetic diet dvt prophylaxis continue synthyroid Demetri Vallecillo MD Nov 07, 2017 13:53
[2017-11-07 16:04] VITALS: BP 137/69
--- NOTE | 2017-11-07 16:16 | Consultation ---
Consult Note Consult Note asked to perez for dialysis management- Brenda historian came in ER from a motel Patient presents with dizziness and weakness. She has right leg weakness and is unable to ambulate. She is a wheelchair at home. Chest is loose stools. She says she was evaluated at [facility] yesterday and they discharged her. She was unable to be at home on her own. She was postictal but that dialysis today however was unable to go. No Known Allergies (Verified , 08/23/06) Past Medical History: No History, Except For Hx Cardiac Problems: Yes - palpitations Hx Hypertension: Yes Hx Diabetes: Yes Hx Dialysis: Yes interviewed examined data reviewed Assessment/Plan --Bilateral leg numbness --diabetic neuropathy --L5-S1 disc protrusion - hypothyroidism - End-stage renal disease, on hemodialysis. - Anemia of chronic kidney disease. - HTN / Pulmonary HTN - Diabetes type 2. - Morbid obesity. - H/O Colon Cancer - H/O Hep C - H/O Depression and Bipolar disease - Psych disease uncoaporative Adjust BP and BS meds- Anemia yao HD next on Sunday Eamon Solis MD Nov 07, 2017 16:16
[2017-11-07] MEDS: NovoLOG Insulin Flexpen SUBQ SCH ×2 (16:30→21:05)
[2017-11-07] MEDS: Docusate 100mg cap ORAL SCH (17:33)
[2017-11-07 20:00] VITALS: BP 147/59
[2017-11-07] MEDS ORDERED: Carvedilol 12.5mg tab ORAL SCH (21:00)
[2017-11-07] MEDS: Carvedilol 12.5mg tab ORAL SCH (21:02)
[2017-11-07] MEDS: Heparin 5000 units/ml inj SUBQ SCH (21:04)
[2017-11-07] MEDS: Epogen (for ESRD on dialysis) SUBQ SCH (21:05)
--- NOTE | 2017-11-07 21:39 | Consultation ---
History of Present Illness General Date patient seen: Nov 07, 2017 Chief Complaint: Dizziness Present Illness HPI the pt is a 56 yo female with hx of mmp and bipolar d/o who was admitted with cc of dizziness and weakness. She has right leg weakness and is unable to ambulate. The pt was guarded and was a poor historian. the pt has been off her Celexa since yesterday. the pt has anxiety and depressed/ Allergies: Coded Allergies: No Known Allergies (Verified , 08/23/06) Medication History Scheduled Aspirin* (Aspirin*), 81 MG ORAL DAILY, (Reported) Aspirin* (Aspirin*), 81 MG ORAL DAILY, (Reported) Carvedilol* (Carvedilol*), 12.5 MG ORAL EVERY 12 HOURS, (Reported) Carvedilol* (Carvedilol*), 12.5 MG ORAL EVERY 12 HOURS, (Reported) Clonazepam* (Klonopin*), 1 MG ORAL Q6H, (Reported) Clonidine Hcl* (Catapres*), 0.1 MG ORAL EVERY 6 HOURS, (Reported) Clotrimazole* (Lotrimin*), 1 APPLIC TOPIC TWICE A DAY, (Reported) Escitalopram Oxalate* (Lexapro*), 20 MG ORAL DAILY, (Reported) Gabapentin* (Gabapentin*), 300 MG ORAL THREE TIMES A DAY, (Reported) Lamotrigine* (Lamictal*), 100 MG ORAL BID, (Reported) Lamotrigine* (Lamictal*), 100 MG ORAL BID, (Reported) Lansoprazole* (Lansoprazole*), 30 MG ORAL DAILY, (Reported) Levothyroxine Sodium* (Synthroid*), Unknown Dose ORAL DAILY, (Reported) Levothyroxine Sodium* (Levothyroxine Sodium*), 25 MCG ORAL DAILY, (Reported) Pravastatin Sod* (Pravastatin Sod*), 40 MG ORAL BEDTIME, (Reported) Pravastatin Sodium (Pravachol), 40 MG ORAL BEDTIME, (Reported) Quetiapine Fumarate* (Quetiapine Fumarate*), 300 MG ORAL BEDTIME, (Reported) Quetiapine Fumarate* (Seroquel*), 25 MG ORAL DAILY, (Reported) Sevelamer Carbonate* (Renvela*), 2,400 MG ORAL THREE TIMES A DAY, (Reported) Sitagliptin* (Januvia*), 25 MG ORAL DAILY, (Reported) Sitagliptin* (Januvia*), 25 MG ORAL DAILY, (Reported) Torsemide* (Demadex*), 10 MG PO DAILY, (Reported) Valsartan (Diovan), 80 MG ORAL DAILY, (Reported) Scheduled PRN Acetaminophen* (Acetaminophen 325MG Tablet*), 650 MG ORAL QID PRN for Pain Scale (3-5), (Reported) Patient History Limited by: medical condition History Provided By: Patient, Medical Record, PMD Healthcare decision maker Resuscitation status Full Code Advanced Directive on File Past Medical/Surgical History Past Medical/Surgical History: (1) Anemia in chronic renal disease (2) Diabetes mellitus, type II (3) Chest pain (4) HTN (hypertension) (5) Bipolar depression (6) Cellulitis of arm, right (7) Hypothyroidism (8) Bradycardia (9) Hypercholesteremia (10) Syncope (11) Costochondritis (12) GERD (gastroesophageal reflux disease) (13) Fall (14) Inability to walk (15) Renal failure (ARF), acute on chronic (16) Clotted renal dialysis arteriovenous graft (17) Multiple injuries due to trauma (18) CHF (congestive heart failure) (19) ESRD (end stage renal disease) on dialysis (20) Weakness of both legs Review of Systems Psychiatric: Reports: prior hx, anxiety, depressed feelings, emotional problems Physical Exam General Appearance: no apparent distress, alert Neurologic: oriented x 3, responsive, depressed affect Last 24 Hour Vital Signs Date Time Temp Pulse Resp B/P (MAP) Pulse Ox O2 Delivery O2 Flow Rate FiO2 11/07/17 21:02 53 147/59 11/07/17 16:04 98.1 58 19 137/69 (91) 93 98.1 11/07/17 14:22 Room Air 11/07/17 12:34 97.9 56 20 145/69 (94) 93 97.9 11/07/17 12:06 57 13 145/57 99 11/07/17 11:48 97.8 57 15 145/57 99 Room Air 97.8 11/07/17 09:56 98.4 11/07/17 09:47 57 15 144/62 100 Room Air 11/07/17 09:28 98.4 62 20 108/72 99 98.4 Laboratory Tests Test 11/07/17 10:13 White Blood Count 8.2 K/UL (4.8-10.8) Red Blood Count 2.84 M/UL (4.20-5.40) L Hemoglobin 8.5 G/DL (12.0-16.0) L Hematocrit 27.2 % (37.0-47.0) L Mean Corpuscular Volume 96 FL (80-99) Mean Corpuscular Hemoglobin 29.9 PG (27.0-31.0) Mean Corpuscular Hemoglobin Concent 31.3 G/DL (32.0-36.0) L Red Cell Distribution Width 13.9 % (11.6-14.8) Platelet Count 189 K/UL (150-450) Mean Platelet Volume 7.4 FL (6.5-10.1) Neutrophils (%) (Auto) 70.4 % (45.0-75.0) Lymphocytes (%) (Auto) 14.7 % (20.0-45.0) L Monocytes (%) (Auto) 11.1 % (1.0-10.0) H Eosinophils (%) (Auto) 2.5 % (0.0-3.0) Basophils (%) (Auto) 1.4 % (0.0-2.0) Prothrombin Time 12.0 SEC (9.30-11.50) H Prothromb Time International Ratio 1.1 (0.9-1.1) Activated Partial Thromboplast Time 28 SEC (23-33) Sodium Level 137 MMOL/L (136-145) Potassium Level 4.3 MMOL/L (3.5-5.1) Chloride Level 100 MMOL/L (98-107) Carbon Dioxide Level 30 MMOL/L (21-32) Anion Gap 7 mmol/L (5-15) Blood Urea Nitrogen 40 mg/dL (7-18) H Creatinine 6.8 MG/DL (0.55-1.30) H Estimat Glomerular Filtration Rate 6.3 mL/min (>60) Glucose Level 121 MG/DL (74-106) H Calcium Level 8.7 MG/DL (8.5-10.1) Total Bilirubin 0.4 MG/DL (0.2-1.0) Aspartate Amino Transf (AST/SGOT) 27 U/L (15-37) Alanine Aminotransferase (ALT/SGPT) 24 U/L (12-78) Alkaline Phosphatase 119 U/L (46-116) H Total Creatine Kinase 442 U/L (26-308) H Troponin I 0.025 ng/mL (0.000-0.056) C-Reactive Protein, Quantitative 2.0 mg/dL (0.00-0.90) H Pro-B-Type Natriuretic Peptide > 20505 pg/mL (0-125) H Total Protein 6.4 G/DL (6.4-8.2) Albumin 2.6 G/DL (3.4-5.0) L Globulin 3.8 g/dL Albumin/Globulin Ratio 0.7 (1.0-2.7) L Height (Feet): 5 Height (Inches): 5.00 Weight (Pounds): 180 Medications Current Medications Medications (Trade) Dose Ordered Sig/Gabriele Route PRN Reason Start Time Stop Time Status Last Admin Dose Admin Acetaminophen (Tylenol) 650 mg Q4H PRN ORAL fever (temp>100.5F) 11/07/17 12:30 12/07/17 12:29 Albuterol/ Ipratropium (Albuterol/ Ipratropium) 3 ml Q6H PRN HHN dyspnea 11/07/17 12:30 11/12/17 12:29 Aspirin (ASA) 81 mg DAILY ORAL 11/08/17 09:00 12/08/17 08:59 Carvedilol (Coreg) 3.125 mg EVERY 12 HOURS ORAL 11/07/17 21:00 12/07/17 20:59 11/07/17 21:02 Clonazepam (KlonoPIN) 1 mg Q6H PRN ORAL ANXIETY 11/07/17 12:30 11/14/17 12:29 11/07/17 13:12 Dextrose (Dextrose 50%) 25 ml STAT PRN IV Hypoglycemia 11/07/17 12:30 12/07/17 12:29 Dextrose (Dextrose 50%) 50 ml STAT PRN IV Hypoglycemia 11/07/17 12:30 12/07/17 12:29 Docusate Sodium (Colace) 100 mg THREE TIMES A DAY ORAL 11/07/17 18:00 12/07/17 17:59 11/07/17 17:33 Epoetin Mau (Procrit (for ESRD on dialysis)) 10,000 units MON-WED-SUN SUBQ 11/07/17 21:00 12/07/17 20:59 11/07/17 21:05 Gabapentin (Neurontin) 300 mg Q8HR ORAL 11/07/17 14:00 12/07/17 13:59 11/07/17 21:01 Heparin Sodium (Porcine) (Heparin 5000 units/ml) 5,000 units EVERY 12 HOURS SUBQ 11/07/17 21:00 12/07/17 20:59 11/07/17 21:04 Hydralazine HCl (Apresoline) 25 mg Q4H PRN ORAL SBP > 160mmHg 11/07/17 16:30 12/07/17 16:29 Insulin Aspart (NovoLOG) BEFORE MEALS AND HS SUBQ 11/07/17 16:30 12/07/17 16:29 11/07/17 21:05 Lamotrigine (LaMICtal) 100 mg Q12HR ORAL 11/07/17 21:00 12/07/17 20:59 11/07/17 21:01 Ondansetron HCl (Zofran) 4 mg Q6H PRN IVP Nausea & Vomiting 11/07/17 12:30 12/07/17 12:29 Pantoprazole (Protonix) 40 mg DAILY ORAL 11/08/17 09:00 12/08/17 08:59 Polyethylene Glycol (Miralax) 17 gm HSPRN PRN ORAL Constipation 11/07/17 12:30 12/07/17 12:29 Quetiapine Fumarate (SEROquel) 300 mg BEDTIME ORAL 11/07/17 21:00 12/07/17 20:59 11/07/17 21:01 Sevelamer Carbonate (Renvela) 2,400 mg THREE TIMES A DAY ORAL 11/07/17 13:00 12/07/17 12:59 11/07/17 17:33 Sitagliptin Phosphate (Januvia) 25 mg ACBREAKFAST ORAL 11/08/17 06:30 12/08/17 06:29 Zolpidem Tartrate (Ambien) 5 mg HSPRN PRN ORAL Insomnia 11/07/17 12:30 11/14/17 12:29 Assessment/Plan Status: stable Assessment/Plan Bipolar d/o seroquel 300mg qhs provided danika/Blanka Heaton MD 19, 2018 21:39
[2017-11-08 04:00] VITALS: BP 156/58
[2017-11-08] MEDS: sitaGLIPtin 25mg tab ORAL SCH (06:03)
[2017-11-08] MEDS: NovoLOG Insulin Flexpen SUBQ SCH ×4 (06:03→21:00)
[2017-11-08 06:18] LABS: BASOPHILS % (AUTO) 1.1 % (0.0-2.0); EOSINOPHILS % (AUTO) 4.8 % (0.0-3.0); HEMATOCRIT 25.9 % (37.0-47.0); HEMOGLOBIN 8.2 G/DL (12.0-16.0); LYMPHOCYTES % (AUTO) 24.3 % (20.0-45.0); MEAN CORPUSCULAR VOLUME 97 FL (80-99); MONOCYTES % (AUTO) 9.5 % (1.0-10.0); NEUTROPHILS % (AUTO) 60.3 % (45.0-75.0); PLATELET COUNT 173 K/UL (150-450); RED BLOOD COUNT 2.66 M/UL (4.20-5.40); RED CELL DISTRIBUTION WIDTH 14.5 % (11.6-14.8); WHITE BLOOD COUNT 8.5 K/UL (4.8-10.8)
[2017-11-08 06:40] LABS: CREATINE KINASE 265 U/L (26-308); GAMMA GLUTAMYL TRANSPEPTIDASE 27 U/L (5-85)
[2017-11-08 06:46] LABS: ALANINE AMINOTRANSFERASE 26 U/L (12-78); ALBUMIN 2.5 G/DL (3.4-5.0); ALBUMIN/GLOBULIN RATIO 0.7 (1.0-2.7); ALKALINE PHOSPHATASE 110 U/L (46-116); ANION GAP 7 mmol/L (5-15); ASPARTATE AMINO TRANSFERASE 16 U/L (15-37); BILIRUBIN,TOTAL 0.4 MG/DL (0.2-1.0); BLOOD UREA NITROGEN 50 mg/dL (7-18); CALCIUM 8.8 MG/DL (8.5-10.1); CARBON DIOXIDE 30 MMOL/L (21-32); CHLORIDE 101 MMOL/L (98-107); CHOLESTEROL 204 MG/DL (< 200); FERRITIN 576 NG/ML (8-388); HDL CHOLESTEROL 39 MG/DL (40-60); POTASSIUM 4.3 MMOL/L (3.5-5.1); SODIUM 137 MMOL/L (136-145); TRIGLYCERIDES 163 MG/DL (30-150)
[2017-11-08 07:40] LABS: IRON 60 ug/dL (50-175); TOTAL IRON BINDING CAPACITY 156 ug/dL (250-450)
[2017-11-08 07:41] LABS: % IRON SATURATION 38 % (15-50)
[2017-11-08 08:00] VITALS: BP 165/61
[2017-11-08] MEDS: Docusate 100mg cap ORAL SCH ×3 (09:51→17:41)
[2017-11-08] MEDS: Carvedilol 12.5mg tab ORAL SCH ×2 (09:52→21:11)
[2017-11-08] MEDS: Aspirin Baby 81mg ORAL SCH (09:52)
[2017-11-08] MEDS: Heparin 5000 units/ml inj SUBQ SCH ×2 (09:56→21:12)
[2017-11-08 12:00] VITALS: BP 173/73
--- NOTE | 2017-11-08 13:30 | General Progress Note ---
Assessment/Plan Status: stable Assessment/Plan Bipolar d/o seroquel 300mg qhs provided ro/st Subjective Date patient seen: Nov 08, 2017 Neurologic/Psychiatric: Reports: anxiety, depressed, emotional problems Allergies: Coded Allergies: No Known Allergies (Verified , 08/23/06) Objective Last 24 Hour Vital Signs Date Time Temp Pulse Resp B/P (MAP) Pulse Ox O2 Delivery O2 Flow Rate FiO2 11/08/17 12:00 98.4 64 19 173/73 (106) 94 98.4 11/08/17 09:52 63 165/61 11/08/17 09:00 Room Air 11/08/17 08:00 97.9 63 20 165/61 (95) 92 97.9 11/08/17 04:00 97.9 57 20 156/58 (90) 96 97.9 11/07/17 21:02 53 147/59 11/07/17 21:00 Room Air 11/07/17 20:00 97.7 53 19 147/59 (88) 96 97.7 11/07/17 16:04 98.1 58 19 137/69 (91) 93 98.1 11/07/17 14:22 Room Air Intake and Output 11/07/17 11/08/17 19:00 07:00 Intake Total 460 ml Balance 460 ml Intake Oral 460 ml # Voids 2 2 Laboratory Tests 11/08/17 05:05: White Blood Count 8.5, Red Blood Count 2.66L, Hemoglobin 8.2L, Hematocrit 25.9L , Mean Corpuscular Volume 97, Mean Corpuscular Hemoglobin 30.7, Mean Corpuscular Hemoglobin Concent 31.6L, Red Cell Distribution Width 14.5, Platelet Count 173, Mean Platelet Volume 7.9, Neutrophils (%) (Auto) 60.3, Lymphocytes (%) (Auto) 24.3, Monocytes (%) (Auto) 9.5, Eosinophils (%) (Auto) 4.8H, Basophils (%) (Auto) 1.1, Sodium Level 137, Potassium Level 4.3, Chloride Level 101, Carbon Dioxide Level 30, Anion Gap 7, Blood Urea Nitrogen 50H, Creatinine 8.0H, Estimat Glomerular Filtration Rate 5.2, Glucose Level 97, Hemoglobin A1c 4.9, Uric Acid 4.8, Calcium Level 8.8, Phosphorus Level 8.0H, Magnesium Level 2.6H, Iron Level 60, Total Iron Binding Capacity 156L, Percent Iron Saturation 38, Unsaturated Iron Binding 96L, Ferritin 576H, Total Bilirubin 0.4, Gamma Glutamyl Transpeptidase 27, Aspartate Amino Transf (AST/ SGOT) 16, Alanine Aminotransferase (ALT/SGPT) 26, Alkaline Phosphatase 110, Total Creatine Kinase 265, Pro-B-Type Natriuretic Peptide > 23264O, Total Protein 6.1L, Albumin 2.5L, Globulin 3.6, Albumin/Globulin Ratio 0.7L, Triglycerides Level 163H, Cholesterol Level 204H, LDL Cholesterol 133H, HDL Cholesterol 39L, Cholesterol/HDL Ratio 5.2H, Vitamin B12 Level 466, Folate 10.4 , Thyroid Stimulating Hormone (TSH) 2.306 Height (Feet): 5 Height (Inches): 5.00 Weight (Pounds): 180 General Appearance: no apparent distress, alert Neurologic: oriented x 3, responsive, depressed affect Blanka Beckett MD Nov 08, 2017 13:30
--- NOTE | 2017-11-08 14:19 | Pulmonology Progress Note ---
Assessment/Plan Problems: (1) Pulmonary edema (2) ESRD (end stage renal disease) on dialysis (3) Seizure disorder (4) Non-compliance with renal dialysis (5) Anemia in chronic renal disease (6) Hypothyroidism (7) HTN (hypertension) (8) Diabetes mellitus, type II Assessment/Plan doing better symptomatic treatment pt/ot sliding scale monitor BP resume synthyroid dvt prophylaxis. Subjective ROS Limited/Unobtainable: No Constitutional: Reports: no symptoms HEENT: Repors: no symptoms Respiratory: Reports: no symptoms Allergies: Coded Allergies: No Known Allergies (Verified , 08/23/06) Objective Last 24 Hour Vital Signs Date Time Temp Pulse Resp B/P (MAP) Pulse Ox O2 Delivery O2 Flow Rate FiO2 11/08/17 12:00 98.4 64 19 173/73 (106) 94 98.4 11/08/17 09:52 63 165/61 11/08/17 09:00 Room Air 11/08/17 08:00 97.9 63 20 165/61 (95) 92 97.9 11/08/17 04:00 97.9 57 20 156/58 (90) 96 97.9 11/07/17 21:02 53 147/59 11/07/17 21:00 Room Air 11/07/17 20:00 97.7 53 19 147/59 (88) 96 97.7 11/07/17 16:04 98.1 58 19 137/69 (91) 93 98.1 11/07/17 14:22 Room Air Intake and Output 11/07/17 11/08/17 19:00 07:00 Intake Total 460 ml Balance 460 ml Intake Oral 460 ml # Voids 2 2 General Appearance: WD/WN HEENT: normocephalic, atraumatic Respiratory/Chest: chest wall non-tender, lungs clear Breasts: no masses Cardiovascular: normal peripheral pulses, regular rhythm Abdomen: normal bowel sounds, soft, non tender Genitourinary: normal external genitalia Extremities: no clubbing Skin: no rash Laboratory Tests 11/08/17 05:05: White Blood Count 8.5, Red Blood Count 2.66L, Hemoglobin 8.2L, Hematocrit 25.9L , Mean Corpuscular Volume 97, Mean Corpuscular Hemoglobin 30.7, Mean Corpuscular Hemoglobin Concent 31.6L, Red Cell Distribution Width 14.5, Platelet Count 173, Mean Platelet Volume 7.9, Neutrophils (%) (Auto) 60.3, Lymphocytes (%) (Auto) 24.3, Monocytes (%) (Auto) 9.5, Eosinophils (%) (Auto) 4.8H, Basophils (%) (Auto) 1.1, Sodium Level 137, Potassium Level 4.3, Chloride Level 101, Carbon Dioxide Level 30, Anion Gap 7, Blood Urea Nitrogen 50H, Creatinine 8.0H, Estimat Glomerular Filtration Rate 5.2, Glucose Level 97, Hemoglobin A1c 4.9, Uric Acid 4.8, Calcium Level 8.8, Phosphorus Level 8.0H, Magnesium Level 2.6H, Iron Level 60, Total Iron Binding Capacity 156L, Percent Iron Saturation 38, Unsaturated Iron Binding 96L, Ferritin 576H, Total Bilirubin 0.4, Gamma Glutamyl Transpeptidase 27, Aspartate Amino Transf (AST/ SGOT) 16, Alanine Aminotransferase (ALT/SGPT) 26, Alkaline Phosphatase 110, Total Creatine Kinase 265, Pro-B-Type Natriuretic Peptide > 21051Z, Total Protein 6.1L, Albumin 2.5L, Globulin 3.6, Albumin/Globulin Ratio 0.7L, Triglycerides Level 163H, Cholesterol Level 204H, LDL Cholesterol 133H, HDL Cholesterol 39L, Cholesterol/HDL Ratio 5.2H, Vitamin B12 Level 466, Folate 10.4 , Thyroid Stimulating Hormone (TSH) 2.306 Current Medications Medications (Trade) Dose Ordered Sig/Gabriele Route PRN Reason Start Time Stop Time Status Last Admin Dose Admin Acetaminophen (Tylenol) 650 mg Q4H PRN ORAL fever (temp>100.5F) 11/07/17 12:30 12/07/17 12:29 Albuterol/ Ipratropium (Albuterol/ Ipratropium) 3 ml Q6H PRN HHN dyspnea 11/07/17 12:30 11/12/17 12:29 Aspirin (ASA) 81 mg DAILY ORAL 11/08/17 09:00 12/08/17 08:59 11/08/17 09:52 Carvedilol (Coreg) 3.125 mg EVERY 12 HOURS ORAL 11/07/17 21:00 12/07/17 20:59 11/08/17 09:52 Clonazepam (KlonoPIN) 1 mg Q6H PRN ORAL ANXIETY 11/07/17 12:30 9/26/18 12:29 11/07/17 13:12 Dextrose (Dextrose 50%) 25 ml STAT PRN IV Hypoglycemia 11/07/17 12:30 12/07/17 12:29 Dextrose (Dextrose 50%) 50 ml STAT PRN IV Hypoglycemia 11/07/17 12:30 12/07/17 12:29 Docusate Sodium (Colace) 100 mg THREE TIMES A DAY ORAL 11/07/17 18:00 12/07/17 17:59 11/08/17 12:48 Epoetin Mau (Procrit (for ESRD on dialysis)) 10,000 units SUN-SUN-SUN SUBQ 11/07/17 21:00 12/07/17 20:59 11/07/17 21:05 Gabapentin (Neurontin) 300 mg Q8HR ORAL 11/07/17 14:00 12/07/17 13:59 11/08/17 12:48 Heparin Sodium (Porcine) (Heparin 5000 units/ml) 5,000 units EVERY 12 HOURS SUBQ 11/07/17 21:00 12/07/17 20:59 11/08/17 09:56 Hydralazine HCl (Apresoline) 25 mg Q4H PRN ORAL SBP > 160mmHg 11/07/17 16:30 12/07/17 16:29 Insulin Aspart (NovoLOG) BEFORE MEALS AND HS SUBQ 11/07/17 16:30 12/07/17 16:29 11/07/17 21:05 Lamotrigine (LaMICtal) 100 mg Q12HR ORAL 11/07/17 21:00 12/07/17 20:59 11/08/17 09:52 Ondansetron HCl (Zofran) 4 mg Q6H PRN IVP Nausea & Vomiting 11/07/17 12:30 12/07/17 12:29 Pantoprazole (Protonix) 40 mg DAILY ORAL 11/08/17 09:00 12/08/17 08:59 11/08/17 09:53 Polyethylene Glycol (Miralax) 17 gm HSPRN PRN ORAL Constipation 11/07/17 12:30 12/07/17 12:29 Quetiapine Fumarate (SEROquel) 300 mg BEDTIME ORAL 11/07/17 21:00 12/07/17 20:59 11/07/17 21:01 Sevelamer Carbonate (Renvela) 2,400 mg THREE TIMES A DAY ORAL 11/07/17 13:00 12/07/17 12:59 11/08/17 12:49 Sitagliptin Phosphate (Januvia) 25 mg ACBREAKFAST ORAL 11/08/17 06:30 12/08/17 06:29 11/08/17 06:03 Zolpidem Tartrate (Ambien) 5 mg HSPRN PRN ORAL Insomnia 11/07/17 12:30 11/14/17 12:29 Demetri Vallecillo MD Nov 08, 2017 14:19
[2017-11-08] MEDS ORDERED: Lisinopril 10mg tab ORAL SCH (15:00)
--- NOTE | 2017-11-08 15:05 | Nephrology Progress Note ---
Assessment/Plan Problem List: (1) ESRD (end stage renal disease) on dialysis (2) Hypothyroidism (3) Hypercholesteremia (4) Diabetes mellitus, type II (5) Anemia in chronic renal disease (6) Hypertensive kidney disease Assessment --Bilateral leg numbness --diabetic neuropathy --L5-S1 disc protrusion - hypothyroidism - End-stage renal disease, on hemodialysis. - Anemia of chronic kidney disease. - HTN / Pulmonary HTN - Diabetes type 2. - Morbid obesity. - H/O Colon Cancer - H/O Hep C - H/O Depression and Bipolar disease - Psych disease uncoaporative Plan Adjust BP and BS meds- Anemia yao HD next in am on Sunday per consultants Subjective ROS Limited/Unobtainable: No Objective Objective Last 24 Hour Vital Signs Date Time Temp Pulse Resp B/P (MAP) Pulse Ox O2 Delivery O2 Flow Rate FiO2 11/08/17 12:00 98.4 64 19 173/73 (106) 94 98.4 11/08/17 09:52 63 165/61 11/08/17 09:00 Room Air 11/08/17 08:00 97.9 63 20 165/61 (95) 92 97.9 11/08/17 04:00 97.9 57 20 156/58 (90) 96 97.9 11/07/17 21:02 53 147/59 11/07/17 21:00 Room Air 11/07/17 20:00 97.7 53 19 147/59 (88) 96 97.7 11/07/17 16:04 98.1 58 19 137/69 (91) 93 98.1 Intake and Output 11/07/17 11/08/17 19:00 07:00 Intake Total 460 ml Balance 460 ml Intake Oral 460 ml # Voids 2 2 Laboratory Tests 11/08/17 05:05: White Blood Count 8.5, Red Blood Count 2.66L, Hemoglobin 8.2L, Hematocrit 25.9L , Mean Corpuscular Volume 97, Mean Corpuscular Hemoglobin 30.7, Mean Corpuscular Hemoglobin Concent 31.6L, Red Cell Distribution Width 14.5, Platelet Count 173, Mean Platelet Volume 7.9, Neutrophils (%) (Auto) 60.3, Lymphocytes (%) (Auto) 24.3, Monocytes (%) (Auto) 9.5, Eosinophils (%) (Auto) 4.8H, Basophils (%) (Auto) 1.1, Sodium Level 137, Potassium Level 4.3, Chloride Level 101, Carbon Dioxide Level 30, Anion Gap 7, Blood Urea Nitrogen 50H, Creatinine 8.0H, Estimat Glomerular Filtration Rate 5.2, Glucose Level 97, Hemoglobin A1c 4.9, Uric Acid 4.8, Calcium Level 8.8, Phosphorus Level 8.0H, Magnesium Level 2.6H, Iron Level 60, Total Iron Binding Capacity 156L, Percent Iron Saturation 38, Unsaturated Iron Binding 96L, Ferritin 576H, Total Bilirubin 0.4, Gamma Glutamyl Transpeptidase 27, Aspartate Amino Transf (AST/ SGOT) 16, Alanine Aminotransferase (ALT/SGPT) 26, Alkaline Phosphatase 110, Total Creatine Kinase 265, Pro-B-Type Natriuretic Peptide > 44637I, Total Protein 6.1L, Albumin 2.5L, Globulin 3.6, Albumin/Globulin Ratio 0.7L, Triglycerides Level 163H, Cholesterol Level 204H, LDL Cholesterol 133H, HDL Cholesterol 39L, Cholesterol/HDL Ratio 5.2H, Vitamin B12 Level 466, Folate 10.4 , Thyroid Stimulating Hormone (TSH) 2.306 Height (Feet): 5 Height (Inches): 5.00 Weight (Pounds): 180 General Appearance: no apparent distress Cardiovascular: normal rate Respiratory/Chest: lungs clear Abdomen: soft Eamon Solis MD Nov 08, 2017 15:05
[2017-11-08 16:00] VITALS: BP 191/78
--- NOTE | 2017-11-08 17:13 | History & Physical ---
History and Physical History & Physicial Dictated for Int Med-Dr Hanna no. [id number]. Sukhi Cotter MD Nov 08, 2017 17:13
[2017-11-08] MEDS: Aluminum Hydroxide Gel Susp 15ml ORAL SCH ×2 (17:42→17:48)
[2017-11-08 20:00] VITALS: BP 190/73
--- NOTE | 2017-11-08 20:00 | History and Physical Report ---
DATE OF ADMISSION: 11/07/2017 CHIEF COMPLAINT: The patient is a 56-year-old white female, who presents with chief complaint of loose stools and generalized weakness. HISTORY OF PRESENT ILLNESS: The patient has a history of end-stage renal disease. The patient undergoes dialysis every Sunday, Sunday, and Sunday. The patient's last dialysis was Sunday11/05/2017. The patient apparently presented to [facility] Room on Sunday11/07/2017. The patient was discharged home. The patient presented to [place] [facility] complaining of loose stools. The patient also complained of generalized weakness. The patient was admitted for generalized weakness and diarrhea. PAST MEDICAL HISTORY: Significant for 1. End-stage renal disease, on hemodialysis every Sunday, Sunday, and Sunday at [facility]. 2. Hypertension. 3. Congestive heart failure. 4. Diabetes type 2. 5. Anemia of chronic renal disease. 6. Bipolar depression. 7. History of colon cancer. PAST SURGICAL HISTORY: Significant for 1. Right arteriovenous graft placement in 04/2017, which failed. 2. Left arteriovenous graft placement. 3. Right PermCath placement and subsequent removal. 4. Right arteriovenous graft for dialysis placed at [facility] in 09/2017. CURRENT MEDICATIONS: 1. Aspirin 81 mg one tablet p.o. daily. 2. Carvedilol 12.5 mg p.o. twice daily. 3. Klonopin 1 mg p.o. 4 times daily p.r.n. 4. Clonidine 0.1 mg p.o. q.6 h. p.r.n. 5. Lexapro 20 mg p.o. daily. 6. Gabapentin 300 mg p.o. 3 times daily. 7. Lamotrigine 100 mg p.o. twice daily. 8. Prevacid 30 mg p.o. daily. 9. Levoxyl 0.025 mg p.o. daily. 10. Pravastatin 40 mg p.o. at bedtime. 11. Seroquel 300 mg p.o. at bedtime. 12. Seroquel 25 mg p.o. daily. 13. Renvela 2400 mg p.o. 3 times daily. 14. Januvia 25 mg p.o. daily. 15. Demodex 10 mg p.o. daily. 16. Diovan 80 mg p.o. daily. ALLERGIES: No known drug allergies. SOCIAL HISTORY: The patient is single and is disabled. The patient denies tobacco or alcohol use. REVIEW OF SYSTEMS: CONSTITUTIONAL: The patient denies weight loss or weight gain. The patient denies fever or chills. HEENT: The patient denies ear or throat pain. The patient denies headache. CARDIOVASCULAR: The patient denies palpitations or chest pain. CHEST: The patient denies wheeze or shortness of breath. ABDOMEN: The patient denies nausea, vomiting, or constipation. The patient complains of diarrhea as above. GENITOURINARY: The patient denies dysuria or increased frequency of urination. NEUROMUSCULAR: The patient denies seizures or generalized weakness. PHYSICAL EXAMINATION: GENERAL: The patient is well-developed and well-nourished female in no apparent distress. VITAL SIGNS: Temperature 97.9 degrees, respirations 20, pulse 53 to 64, and blood pressure 147-156 over 59-61. HEENT: Eyes, pupils equal and responsive to light and accommodation. Extraocular movements are intact. NECK: Supple without lymphadenopathy. CHEST: Lungs are clear to auscultation bilaterally without wheezes or rales. CARDIOVASCULAR: Regular rhythm and rate. S1 and S2 normal without murmurs, rubs, or gallops. ABDOMEN: Soft, nontender, and nondistended. Positive bowel sounds. No evidence of hepatosplenomegaly. Currently, no rebound or guarding noted. EXTREMITIES: Negative for clubbing, cyanosis, or edema. RECTAL: Refused. GENITAL: Refused. NEUROLOGIC: Cranial nerves II through XII are grossly intact without focal deficits. Motor strength is 5/5 bilaterally. Deep tendon reflexes are 2+ plantar. LABORATORY AND DIAGNOSTIC DATA: WBC 8.2, hemoglobin 8.5, hematocrit 27.2 and platelets 189,000. Sodium 137, potassium 4.3, chloride 100, CO2 30, BUN 40, creatinine 6.8 and glucose 121. BNP elevated greater than 35,000. Troponin 0.025. Chest x-ray revealed bilateral interstitial edema consistent with congestive heart failure. ASSESSMENT: This is a 56-year-old white female 1. Congestive heart failure. 2. Diarrhea. 3. Generalized weakness. 4. Hypertension. 5. End-stage renal disease. 6. Type 2 diabetes. 7. Anemia of chronic renal disease. 8. Bipolar depression. 9. History of colon cancer. TREATMENT: 1. Diarrhea. A Gastroenterology consultation has been obtained with Dr. Dillon Real. A stool culture is pending. The patient has been started empirically on Imodium. 2. End-stage renal disease. A Nephrology consultation has been obtained with Dr. Solis. The patient is scheduled for dialysis 11/09/2017. 3. Hypertension. Continue Coreg as above. 4. Congestive heart failure. A Cardiology consultation is pending. We will follow recommendation of Cardiology. 5. Diabetes type 2. Continue Januvia as above. A NovoLog sliding scale has been instituted. 6. Anemia of chronic disease. 7. Bipolar depression. Continue Lamictal as above. 8. History of colon cancer. Sukhi Cotter M.D. DR: JIM JOB#: [id number] CC:
[2017-11-08] MEDS: HydrALAZINE 25mg tab ORAL PRN (20:10)
[2017-11-09] VITALS (7 sets, daily range): BP systolic 104–192; BP diastolic 63–107
[2017-11-09] MEDS: HydrALAZINE 25mg tab ORAL PRN (02:03)
[2017-11-09] MEDS: sitaGLIPtin 25mg tab ORAL SCH (06:18)
[2017-11-09] MEDS: Levothyroxine 25mcg tab ORAL SCH (06:18)
[2017-11-09] MEDS: NovoLOG Insulin Flexpen SUBQ SCH ×4 (06:20→21:00)
[2017-11-09] MEDS: Aspirin Baby 81mg ORAL SCH (08:56)
[2017-11-09] MEDS: Docusate 100mg cap ORAL SCH ×3 (08:56→17:55)
[2017-11-09] MEDS ORDERED: Lisinopril 10mg tab ORAL SCH (09:00)
[2017-11-09] MEDS: Heparin 5000 units/ml inj SUBQ SCH ×2 (09:00→21:37)
[2017-11-09] MEDS: Carvedilol 12.5mg tab ORAL SCH ×2 (09:00→21:38)
[2017-11-09] MEDS: Aluminum Hydroxide Gel Susp 15ml ORAL SCH ×2 (12:10→17:55)
--- NOTE | 2017-11-09 12:22 | General Progress Note ---
Assessment/Plan Status: stable, progressing Assessment/Plan Bipolar d/o seroquel 300mg qhs provided ro/st the pts social media editor has already spoken to her but she stated "no." Subjective Date patient seen: Nov 09, 2017 Neurologic/Psychiatric: Reports: anxiety, depressed, emotional problems Allergies: Coded Allergies: No Known Allergies (Verified , 08/23/06) Subjective The pt is anxious and entitled and paranoid. the pt is projecting . the pt is on seroquel Objective Last 24 Hour Vital Signs Date Time Temp Pulse Resp B/P (MAP) Pulse Ox O2 Delivery O2 Flow Rate FiO2 11/09/17 12:00 97.4 74 12 117/76 (90) 97 97.4 11/09/17 10:56 68 18 Room Air 21 11/09/17 09:00 104/70 11/09/17 09:00 84 104/70 11/09/17 09:00 Room Air 11/09/17 08:00 98.6 84 20 104/70 (81) 96 98.6 11/09/17 04:05 98.0 65 18 159/63 (95) 95 98.0 11/09/17 02:03 178/77 11/09/17 00:00 98.5 70 20 178/77 (110) 93 98.5 11/08/17 21:11 67 189/88 11/08/17 21:00 Room Air 11/08/17 20:10 188/79 11/08/17 20:00 98.8 67 18 190/73 (112) 95 98.8 11/08/17 17:41 191/78 11/08/17 16:00 97.7 64 20 191/78 (115) 90 97.7 Intake and Output 11/08/17 11/09/17 19:00 07:00 Intake Total 800 ml 600 ml Balance 800 ml 600 ml Intake Oral 800 ml 600 ml # Voids 4 6 Height (Feet): 5 Height (Inches): 5.00 Weight (Pounds): 223 General Appearance: no apparent distress, alert Neurologic: oriented x 3, responsive, depressed affect Blanka Beckett MD Nov 09, 2017 12:22
--- NOTE | 2017-11-09 13:07 | Nephrology Progress Note ---
Assessment/Plan Problem List: (1) ESRD (end stage renal disease) on dialysis (2) Hypothyroidism (3) Hypercholesteremia (4) Diabetes mellitus, type II (5) Anemia in chronic renal disease (6) Hypertensive kidney disease Assessment --Bilateral leg numbness --diabetic neuropathy --L5-S1 disc protrusion - hypothyroidism - End-stage renal disease, on hemodialysis. - Anemia of chronic kidney disease. - HTN / Pulmonary HTN - Diabetes type 2. - Morbid obesity. - H/O Colon Cancer - H/O Hep C - H/O Depression and Bipolar disease - Psych disease uncoaporative Plan Adjust BP and BS meds- Anemia yao HD today per consultants, per psych start DC planning Subjective ROS Limited/Unobtainable: No Constitutional: Reports: malaise Objective Objective Last 24 Hour Vital Signs Date Time Temp Pulse Resp B/P (MAP) Pulse Ox O2 Delivery O2 Flow Rate FiO2 11/09/17 12:00 97.4 74 12 117/76 (90) 97 97.4 11/09/17 10:56 68 18 Room Air 21 11/09/17 09:00 104/70 11/09/17 09:00 84 104/70 11/09/17 09:00 Room Air 11/09/17 08:00 98.6 84 20 104/70 (81) 96 98.6 11/09/17 04:05 98.0 65 18 159/63 (95) 95 98.0 11/09/17 02:03 178/77 11/09/17 00:00 98.5 70 20 178/77 (110) 93 98.5 11/08/17 21:11 67 189/88 11/08/17 21:00 Room Air 11/08/17 20:10 188/79 11/08/17 20:00 98.8 67 18 190/73 (112) 95 98.8 11/08/17 17:41 191/78 11/08/17 16:00 97.7 64 20 191/78 (115) 90 97.7 Intake and Output 11/08/17 11/09/17 19:00 07:00 Intake Total 800 ml 600 ml Balance 800 ml 600 ml Intake Oral 800 ml 600 ml # Voids 4 6 Height (Feet): 5 Height (Inches): 5.00 Weight (Pounds): 223 General Appearance: no apparent distress Cardiovascular: normal rate Respiratory/Chest: lungs clear Objective no change Eamon Solis MD Nov 09, 2017 13:06
--- NOTE | 2017-11-09 13:31 | Pulmonology Progress Note ---
Assessment/Plan Problems: (1) Pulmonary edema (2) ESRD (end stage renal disease) on dialysis (3) Seizure disorder (4) Non-compliance with renal dialysis (5) Anemia in chronic renal disease (6) Hypothyroidism (7) HTN (hypertension) (8) Diabetes mellitus, type II Assessment/Plan doing better symptomatic treatment pt/ot sliding scale monitor BP resume synthyroid dvt prophylaxis. social service note appreciated awaiting Podiatry evaluation Subjective ROS Limited/Unobtainable: No Constitutional: Reports: no symptoms HEENT: Repors: no symptoms Respiratory: Reports: no symptoms Allergies: Coded Allergies: No Known Allergies (Verified , 08/23/06) Objective Last 24 Hour Vital Signs Date Time Temp Pulse Resp B/P (MAP) Pulse Ox O2 Delivery O2 Flow Rate FiO2 11/09/17 12:00 97.4 74 12 117/76 (90) 97 97.4 11/09/17 10:56 68 18 Room Air 21 11/09/17 09:00 104/70 11/09/17 09:00 84 104/70 11/09/17 09:00 Room Air 11/09/17 08:00 98.6 84 20 104/70 (81) 96 98.6 11/09/17 04:05 98.0 65 18 159/63 (95) 95 98.0 11/09/17 02:03 178/77 11/09/17 00:00 98.5 70 20 178/77 (110) 93 98.5 11/08/17 21:11 67 189/88 11/08/17 21:00 Room Air 11/08/17 20:10 188/79 11/08/17 20:00 98.8 67 18 190/73 (112) 95 98.8 11/08/17 17:41 191/78 11/08/17 16:00 97.7 64 20 191/78 (115) 90 97.7 Intake and Output 11/08/17 11/09/17 19:00 07:00 Intake Total 800 ml 600 ml Balance 800 ml 600 ml Intake Oral 800 ml 600 ml # Voids 4 6 General Appearance: WD/WN HEENT: normocephalic, atraumatic Respiratory/Chest: chest wall non-tender, lungs clear Breasts: no masses Cardiovascular: normal rate Abdomen: normal bowel sounds, no organomegaly Extremities: no clubbing Skin: no rash Microbiology Date/Time Source Procedure Growth Status 11/07/17 13:30 Nasal Nares MRSA Culture - Final NO METHICILLIN RESISTANT STAPH AUREUS... Complete 11/07/17 13:30 Rectal Mucosa VRE Culture - Final NO VANCOMYCIN RESISTANT ENTEROCOCCUS ... Complete 11/07/17 13:30 Rectal Mucosa - Final NO CARBAPENEM-RESISTANT ENTEROBACTERI... Complete Current Medications Medications (Trade) Dose Ordered Sig/Gabriele Route PRN Reason Start Time Stop Time Status Last Admin Dose Admin Acetaminophen (Tylenol) 650 mg Q4H PRN ORAL fever (temp>100.5F) 11/07/17 12:30 12/07/17 12:29 Albuterol/ Ipratropium (Albuterol/ Ipratropium) 3 ml Q6H PRN HHN dyspnea 11/07/17 12:30 11/12/17 12:29 Aluminum Hydroxide (Amphojel) 1,920 mg TIPC ORAL 11/08/17 18:00 12/08/17 17:59 Aspirin (ASA) 81 mg DAILY ORAL 11/08/17 09:00 12/08/17 08:59 11/09/17 08:56 Carvedilol (Coreg) 3.125 mg EVERY 12 HOURS ORAL 11/07/17 21:00 12/07/17 20:59 11/08/17 21:11 Clonazepam (KlonoPIN) 1 mg Q6H PRN ORAL ANXIETY 11/07/17 12:30 11/14/17 12:29 11/07/17 13:12 Dextrose (Dextrose 50%) 25 ml STAT PRN IV Hypoglycemia 11/07/17 12:30 12/07/17 12:29 Dextrose (Dextrose 50%) 50 ml STAT PRN IV Hypoglycemia 11/07/17 12:30 12/07/17 12:29 Docusate Sodium (Colace) 100 mg THREE TIMES A DAY ORAL 11/07/17 18:00 12/07/17 17:59 11/09/17 08:56 Epoetin Mau (Procrit (for ESRD on dialysis)) 10,000 units MON-WED-SUN SUBQ 11/07/17 21:00 12/07/17 20:59 11/07/17 21:05 Gabapentin (Neurontin) 300 mg Q8HR ORAL 11/07/17 14:00 12/07/17 13:59 11/09/17 06:18 Heparin Sodium (Porcine) (Heparin 5000 units/ml) 5,000 units EVERY 12 HOURS SUBQ 11/07/17 21:00 12/07/17 20:59 11/08/17 21:12 Hydralazine HCl (Apresoline) 25 mg Q4H PRN ORAL SBP > 160mmHg 11/07/17 16:30 12/07/17 16:29 11/09/17 02:03 Insulin Aspart (NovoLOG) BEFORE MEALS AND HS SUBQ 11/07/17 16:30 12/07/17 16:29 11/07/17 21:05 Lamotrigine (LaMICtal) 100 mg Q12HR ORAL 11/07/17 21:00 12/07/17 20:59 11/09/17 09:02 Levothyroxine Sodium (Synthroid) 25 mcg DAILY@0630 ORAL 11/09/17 06:30 12/09/17 06:29 11/09/17 06:18 Lisinopril (Zestril) 10 mg DAILY ORAL 11/09/17 09:00 12/09/17 08:59 Ondansetron HCl (Zofran) 4 mg Q6H PRN IVP Nausea & Vomiting 11/07/17 12:30 12/07/17 12:29 Pantoprazole (Protonix) 40 mg DAILY ORAL 11/08/17 09:00 12/08/17 08:59 11/09/17 08:56 Polyethylene Glycol (Miralax) 17 gm HSPRN PRN ORAL Constipation 11/07/17 12:30 12/07/17 12:29 Quetiapine Fumarate (SEROquel) 300 mg BEDTIME ORAL 11/07/17 21:00 12/07/17 20:59 11/08/17 21:09 Sevelamer Carbonate (Renvela) 2,400 mg THREE TIMES A DAY ORAL 11/08/17 18:00 12/08/17 17:59 11/09/17 09:02 Sitagliptin Phosphate (Januvia) 25 mg ACBREAKFAST ORAL 11/08/17 06:30 12/08/17 06:29 11/09/17 06:18 Zolpidem Tartrate (Ambien) 5 mg HSPRN PRN ORAL Insomnia 11/07/17 12:30 11/14/17 12:29 Demetri Vallecillo MD Nov 09, 2017 13:31
--- NOTE | 2017-11-09 15:16 | Internal Med Progress Note ---
Subjective Physician Name Sea Lundberg Attending Physician Sea Lundberg MD Current Medications Medications (Trade) Dose Ordered Sig/Gabriele Route PRN Reason Start Time Stop Time Status Last Admin Dose Admin Acetaminophen (Tylenol) 650 mg Q4H PRN ORAL fever (temp>100.5F) 11/07/17 12:30 12/07/17 12:29 Albuterol/ Ipratropium (Albuterol/ Ipratropium) 3 ml Q6H PRN HHN dyspnea 11/07/17 12:30 11/12/17 12:29 Aluminum Hydroxide (Amphojel) 1,920 mg TIPC ORAL 11/08/17 18:00 12/08/17 17:59 Aspirin (ASA) 81 mg DAILY ORAL 11/08/17 09:00 12/08/17 08:59 11/09/17 08:56 Carvedilol (Coreg) 3.125 mg EVERY 12 HOURS ORAL 11/07/17 21:00 12/07/17 20:59 11/08/17 21:11 Clonazepam (KlonoPIN) 1 mg Q6H PRN ORAL ANXIETY 11/07/17 12:30 11/14/17 12:29 11/07/17 13:12 Dextrose (Dextrose 50%) 25 ml STAT PRN IV Hypoglycemia 11/07/17 12:30 12/07/17 12:29 Dextrose (Dextrose 50%) 50 ml STAT PRN IV Hypoglycemia 11/07/17 12:30 12/07/17 12:29 Docusate Sodium (Colace) 100 mg THREE TIMES A DAY ORAL 11/07/17 18:00 12/07/17 17:59 11/09/17 08:56 Epoetin Mau (Procrit (for ESRD on dialysis)) 10,000 units SUN-SUN-SUN SUBQ 11/07/17 21:00 12/07/17 20:59 11/07/17 21:05 Gabapentin (Neurontin) 300 mg Q8HR ORAL 11/07/17 14:00 12/07/17 13:59 11/09/17 06:18 Heparin Sodium (Porcine) (Heparin 5000 units/ml) 5,000 units EVERY 12 HOURS SUBQ 11/07/17 21:00 12/07/17 20:59 11/08/17 21:12 Hydralazine HCl (Apresoline) 25 mg Q4H PRN ORAL SBP > 160mmHg 11/07/17 16:30 12/07/17 16:29 11/09/17 02:03 Insulin Aspart (NovoLOG) BEFORE MEALS AND HS SUBQ 11/07/17 16:30 12/07/17 16:29 11/07/17 21:05 Lamotrigine (LaMICtal) 100 mg Q12HR ORAL 11/07/17 21:00 12/07/17 20:59 11/09/17 09:02 Levothyroxine Sodium (Synthroid) 25 mcg DAILY@0630 ORAL 11/09/17 06:30 12/09/17 06:29 11/09/17 06:18 Lisinopril (Zestril) 10 mg DAILY ORAL 11/09/17 09:00 12/09/17 08:59 Ondansetron HCl (Zofran) 4 mg Q6H PRN IVP Nausea & Vomiting 11/07/17 12:30 12/07/17 12:29 Pantoprazole (Protonix) 40 mg DAILY ORAL 11/08/17 09:00 12/08/17 08:59 11/09/17 08:56 Polyethylene Glycol (Miralax) 17 gm HSPRN PRN ORAL Constipation 11/07/17 12:30 12/07/17 12:29 Quetiapine Fumarate (SEROquel) 300 mg BEDTIME ORAL 11/07/17 21:00 12/07/17 20:59 11/08/17 21:09 Sevelamer Carbonate (Renvela) 2,400 mg THREE TIMES A DAY ORAL 11/08/17 18:00 12/08/17 17:59 11/09/17 09:02 Sitagliptin Phosphate (Januvia) 25 mg ACBREAKFAST ORAL 11/08/17 06:30 12/08/17 06:29 11/09/17 06:18 Zolpidem Tartrate (Ambien) 5 mg HSPRN PRN ORAL Insomnia 11/07/17 12:30 11/14/17 12:29 Allergies: Coded Allergies: No Known Allergies (Verified , 08/23/06) Subjective awake, alert, responsive, NAD, moving in hallway with wheel chair Objective Last Vital Signs Date Time Temp Pulse Resp B/P (MAP) Pulse Ox O2 Delivery O2 Flow Rate FiO2 11/09/17 12:00 97.4 74 12 117/76 (90) 97 97.4 11/09/17 10:56 Room Air 21 Microbiology Date/Time Source Procedure Growth Status 11/07/17 13:30 Nasal Nares MRSA Culture - Final NO METHICILLIN RESISTANT STAPH AUREUS... Complete 11/07/17 13:30 Rectal Mucosa VRE Culture - Final NO VANCOMYCIN RESISTANT ENTEROCOCCUS ... Complete 11/07/17 13:30 Rectal Mucosa - Final NO CARBAPENEM-RESISTANT ENTEROBACTERI... Complete Intake and Output 11/08/17 11/09/17 19:00 07:00 Intake Total 800 ml 600 ml Balance 800 ml 600 ml Intake Oral 800 ml 600 ml # Voids 4 6 Objective General: No acute distress, awake and alert HEENT: NCAT, sclera anicteric, PERRL, EOMI. Neck: Supple, no significant jugular venous distention, Lungs: Fair inspiratory effort, clear to auscultation bilaterally, no Wheeze or Rales. Heart: Regular rate and rhythm, normal S1/S2, no murmurs Abdomen: soft, nontender, nondistended. Normoactive bowel sounds, Obesity, Extremities: No Cyanosis , clubbing +1 LE's edema. RUE AVF. Neuro: A&O x 3, Able to move all extremities Skin: warm, no rashes Psych: anxious mood and affect Assessment/Plan Assessment/Plan 1. Congestive heart failure. 2. Diarrhea. 3. Generalized weakness. 4. Hypertension. 5. End-stage renal disease. 6. Type 2 diabetes. 7. Anemia of chronic renal disease. 8. Bipolar depression. 9. History of colon cancer. 10. Anemia of chronic renal disease 11. Hypothyroidism Plan: Dialysis soon PT evaluation Code status: Full code DC planning for SNF placement. Sea Lundberg MD Nov 09, 2017 15:16
[2017-11-09] MEDS: Epogen (for ESRD on dialysis) SUBQ SCH (21:38)
[2017-11-10] MEDS: NovoLOG Insulin Flexpen SUBQ SCH ×4 (06:09→21:00)
[2017-11-10] MEDS: Levothyroxine 25mcg tab ORAL SCH (06:13)
[2017-11-10] MEDS: sitaGLIPtin 25mg tab ORAL SCH (06:13)
[2017-11-10] MEDS: HydrALAZINE 25mg tab ORAL PRN ×3 (07:51→21:30)
[2017-11-10 08:09] VITALS: BP 181/72
[2017-11-10] MEDS: Heparin 5000 units/ml inj SUBQ SCH ×2 (09:00→21:09)
[2017-11-10] MEDS: Aluminum Hydroxide Gel Susp 15ml ORAL SCH ×3 (09:00→17:24)
--- NOTE | 2017-11-10 09:01 | Nephrology Progress Note ---
Assessment/Plan Problem List: (1) ESRD (end stage renal disease) on dialysis (2) Hypothyroidism (3) Hypercholesteremia (4) Diabetes mellitus, type II (5) Anemia in chronic renal disease (6) Hypertensive kidney disease Assessment --Bilateral leg numbness --diabetic neuropathy --L5-S1 disc protrusion - hypothyroidism - End-stage renal disease, on hemodialysis. - Anemia of chronic kidney disease. - HTN / Pulmonary HTN - Diabetes type 2. - Morbid obesity. - H/O Colon Cancer - H/O Hep C - H/O Depression and Bipolar disease - Psych disease uncoaporative Plan Adjust BP and BS meds- Anemia yao HD next 11/12 per consultants, per psych start DC planning Subjective ROS Limited/Unobtainable: No Constitutional: Reports: weakness Objective Objective Last 24 Hour Vital Signs Date Time Temp Pulse Resp B/P (MAP) Pulse Ox O2 Delivery O2 Flow Rate FiO2 11/10/17 08:09 59 20 181/72 (108) 93 11/10/17 08:04 79 18 Room Air 21 11/10/17 07:51 181/72 11/09/17 21:38 82 177/95 11/09/17 21:00 159/65 (96) 11/09/17 21:00 Room Air 11/09/17 20:00 97.8 71 20 192/81 (118) 94 97.8 11/09/17 19:51 73 16 Room Air 21 11/09/17 16:00 98.0 66 18 168/107 (127) 96 98.0 11/09/17 12:00 97.4 74 12 117/76 (90) 97 97.4 11/09/17 10:56 68 18 Room Air 21 Intake and Output 11/09/17 11/10/17 19:00 07:00 Intake Total 350 ml 360 ml Output Total 664 ml Balance 350 ml -304 ml Intake Oral 360 ml Other 350 ml Output Hemodialysis UF 664 ml # Voids 2 3 Height (Feet): 5 Height (Inches): 5.00 Weight (Pounds): 223 General Appearance: no apparent distress Objective no change Eamon Solis MD Nov 10, 2017 09:01
--- NOTE | 2017-11-10 10:01 | Pulmonology Progress Note ---
Assessment/Plan Assessment/Plan ASSESSMENT pulmonary edema end-stage renal disease on HD seizure disorder noncompliance anemia of chronic renal disease HTN pulmonary HTN hypothyroidism DM with diabetic neuropathy morbid obesity hyperlipidemia history of colon cancer noncompliance PLAN OF CARE Med Surg floor O2 prn to keep pulse ox above 92%, pulmonary toilet HD per nephro with close monitoring of volumes, renal parameters and lytes, correct lytes prn encourage compliance BP management with VIKY ; hydralazine prn Continue ASA BS management with Januvia and SSI prn , HgA1c at goal endo follows diabetic teaching monitor HH with goal to keep Hgb above 7 anemia w/up c/w anemia of chronic disease continue EPO DVT , GI prophylaxis pain management , continue Neurontin lipid panel noted , add statin PT/OT bowel regimen seizure precautions, continue Lamictal case discussed and evaluated by supervising physician Subjective Allergies: Coded Allergies: No Known Allergies (Verified , 08/23/06) Subjective denies chest pain, SOB Objective Last 24 Hour Vital Signs Date Time Temp Pulse Resp B/P (MAP) Pulse Ox O2 Delivery O2 Flow Rate FiO2 11/10/17 08:09 59 20 181/72 (108) 93 11/10/17 08:04 79 18 Room Air 21 11/10/17 07:51 181/72 11/09/17 21:38 82 177/95 11/09/17 21:00 159/65 (96) 11/09/17 21:00 Room Air 11/09/17 20:00 97.8 71 20 192/81 (118) 94 97.8 11/09/17 19:51 73 16 Room Air 21 11/09/17 16:00 98.0 66 18 168/107 (127) 96 98.0 11/09/17 12:00 97.4 74 12 117/76 (90) 97 97.4 11/09/17 10:56 68 18 Room Air 21 Intake and Output 11/09/17 11/10/17 19:00 07:00 Intake Total 350 ml 360 ml Output Total 664 ml Balance 350 ml -304 ml Intake Oral 360 ml Other 350 ml Output Hemodialysis UF 664 ml # Voids 2 3 General Appearance: no acute distress, other - A/A/O x 3 obese female HEENT: normocephalic, atraumatic Respiratory/Chest: lungs clear Cardiovascular: normal rate, no JVD Abdomen: soft, non tender - obese Neurologic/Psychiatric: alert Musculoskeletal: normal muscle bulk Microbiology Date/Time Source Procedure Growth Status 11/07/17 13:30 Nasal Nares MRSA Culture - Final NO METHICILLIN RESISTANT STAPH AUREUS... Complete 11/07/17 13:30 Rectal Mucosa VRE Culture - Final NO VANCOMYCIN RESISTANT ENTEROCOCCUS ... Complete 11/07/17 13:30 Rectal Mucosa - Final NO CARBAPENEM-RESISTANT ENTEROBACTERI... Complete Current Medications Medications (Trade) Dose Ordered Sig/Gabriele Route PRN Reason Start Time Stop Time Status Last Admin Dose Admin Acetaminophen (Tylenol) 650 mg Q4H PRN ORAL fever (temp>100.5F) 11/07/17 12:30 12/07/17 12:29 Albuterol/ Ipratropium (Albuterol/ Ipratropium) 3 ml Q6H PRN HHN dyspnea 11/07/17 12:30 11/12/17 12:29 Aluminum Hydroxide (Amphojel) 1,920 mg TIPC ORAL 11/08/17 18:00 12/08/17 17:59 Aspirin (ASA) 81 mg DAILY ORAL 11/08/17 09:00 12/08/17 08:59 11/09/17 08:56 Carvedilol (Coreg) 3.125 mg EVERY 12 HOURS ORAL 11/07/17 21:00 12/07/17 20:59 11/09/17 21:38 Ciprofloxacin (Ciloxan Opth Soln) 2 drop EVERY 6 HOURS RIGHT EYE 11/10/17 12:00 11/17/17 11:59 Clonazepam (KlonoPIN) 1 mg Q6H PRN ORAL ANXIETY 11/07/17 12:30 11/14/17 12:29 11/07/17 13:12 Dextrose (Dextrose 50%) 25 ml STAT PRN IV Hypoglycemia 11/07/17 12:30 12/07/17 12:29 Dextrose (Dextrose 50%) 50 ml STAT PRN IV Hypoglycemia 11/07/17 12:30 12/07/17 12:29 Docusate Sodium (Colace) 100 mg THREE TIMES A DAY ORAL 11/07/17 18:00 12/07/17 17:59 11/09/17 08:56 Epoetin Mau (Procrit (for ESRD on dialysis)) 10,000 units MON-WED-SUN SUBQ 11/07/17 21:00 10/19/18 20:59 11/09/17 21:38 Gabapentin (Neurontin) 300 mg Q8HR ORAL 11/07/17 14:00 12/07/17 13:59 11/10/17 06:13 Heparin Sodium (Porcine) (Heparin 5000 units/ml) 5,000 units EVERY 12 HOURS SUBQ 11/07/17 21:00 12/07/17 20:59 11/09/17 21:37 Hydralazine HCl (Apresoline) 25 mg Q4H PRN ORAL SBP > 160mmHg 11/07/17 16:30 12/07/17 16:29 11/10/17 07:51 Insulin Aspart (NovoLOG) BEFORE MEALS AND HS SUBQ 11/07/17 16:30 12/07/17 16:29 11/07/17 21:05 Lamotrigine (LaMICtal) 100 mg Q12HR ORAL 11/07/17 21:00 12/07/17 20:59 11/09/17 21:39 Levothyroxine Sodium (Synthroid) 25 mcg DAILY@0630 ORAL 11/09/17 06:30 12/09/17 06:29 11/10/17 06:13 Lisinopril (Zestril) 10 mg BID ORAL 11/10/17 18:00 12/09/17 08:59 Ondansetron HCl (Zofran) 4 mg Q6H PRN IVP Nausea & Vomiting 11/07/17 12:30 12/07/17 12:29 Pantoprazole (Protonix) 40 mg DAILY ORAL 11/08/17 09:00 12/08/17 08:59 11/09/17 08:56 Polyethylene Glycol (Miralax) 17 gm HSPRN PRN ORAL Constipation 11/07/17 12:30 12/07/17 12:29 Quetiapine Fumarate (SEROquel) 300 mg BEDTIME ORAL 11/07/17 21:00 12/07/17 20:59 11/09/17 21:37 Sevelamer Carbonate (Renvela) 2,400 mg THREE TIMES A DAY ORAL 11/08/17 18:00 12/08/17 17:59 11/09/17 09:02 Sitagliptin Phosphate (Januvia) 25 mg ACBREAKFAST ORAL 11/08/17 06:30 12/08/17 06:29 11/10/17 06:13 Zolpidem Tartrate (Ambien) 5 mg HSPRN PRN ORAL Insomnia 11/07/17 12:30 11/14/17 12:29 Alisha Kemp NP Nov 10, 2017 10:01
[2017-11-10] MEDS: Docusate 100mg cap ORAL SCH ×3 (10:13→17:22)
[2017-11-10] MEDS: Aspirin Baby 81mg ORAL SCH (10:16)
[2017-11-10] MEDS: Carvedilol 12.5mg tab ORAL SCH ×2 (10:16→21:07)
[2017-11-10] MEDS: Ciprofloxacin Opth Soln 2.5ml RIGHT EYE SCH ×2 (10:24→17:22)
[2017-11-10 12:00] VITALS: BP 185/74
--- NOTE | 2017-11-10 12:18 | General Progress Note ---
Assessment/Plan Problem List: (1) Hypothyroidism ICD Codes: E03.9 - Hypothyroidism, unspecified SNOMED: 89622557 (2) Bipolar depression ICD Codes: F31.30 - Bipolar disorder, current episode depressed, mild or moderate severity, unspecified SNOMED: 87914666 (3) ESRD (end stage renal disease) on dialysis ICD Codes: N18.6 - End stage renal disease; Z99.2 - Dependence on renal dialysis SNOMED: 395255247 (4) Diabetes mellitus, type II ICD Codes: E11.9 - Type 2 diabetes mellitus without complications SNOMED: 28269808 Assessment/Plan continue Synthroid 25 mcg daily - TSH is at target continue Januvia renal dose of 25 mg + SSI Subjective Allergies: Coded Allergies: No Known Allergies (Verified , 08/23/06) All Systems: reviewed and negative except above Subjective events noted BG values are stable Objective Last 24 Hour Vital Signs Date Time Temp Pulse Resp B/P (MAP) Pulse Ox O2 Delivery O2 Flow Rate FiO2 11/10/17 10:16 59 181/72 11/10/17 09:00 Room Air 11/10/17 08:09 59 20 181/72 (108) 93 11/10/17 08:04 79 18 Room Air 21 11/10/17 07:51 181/72 11/09/17 21:38 82 177/95 11/09/17 21:00 159/65 (96) 11/09/17 21:00 Room Air 11/09/17 20:00 97.8 71 20 192/81 (118) 94 97.8 11/09/17 19:51 73 16 Room Air 21 11/09/17 16:00 98.0 66 18 168/107 (127) 96 98.0 Intake and Output 11/09/17 11/10/17 19:00 07:00 Intake Total 350 ml 360 ml Output Total 664 ml Balance 350 ml -304 ml Intake Oral 360 ml Other 350 ml Output Hemodialysis UF 664 ml # Voids 2 3 Height (Feet): 5 Height (Inches): 5.00 Weight (Pounds): 223 General Appearance: no apparent distress Neck: normal alignment Cardiovascular: normal rate Respiratory/Chest: lungs clear Abdomen: normal bowel sounds Edema: no edema noted Arm (L), no edema noted Arm (R), no edema noted Leg (L), no edema noted Leg (R), no edema noted Pedal (L), no edema noted Pedal (R), no edema noted Generalized Objective Current Medications Medications (Trade) Dose Ordered Sig/Gabriele Route PRN Reason Start Time Stop Time Status Last Admin Dose Admin Acetaminophen (Tylenol) 650 mg Q4H PRN ORAL fever (temp>100.5F) 11/07/17 12:30 12/07/17 12:29 Albuterol/ Ipratropium (Albuterol/ Ipratropium) 3 ml Q6H PRN HHN dyspnea 11/07/17 12:30 11/12/17 12:29 Aluminum Hydroxide (Amphojel) 1,920 mg TIPC ORAL 11/08/17 18:00 12/08/17 17:59 Aspirin (ASA) 81 mg DAILY ORAL 11/08/17 09:00 12/08/17 08:59 11/10/17 10:16 Carvedilol (Coreg) 3.125 mg EVERY 12 HOURS ORAL 11/07/17 21:00 12/07/17 20:59 11/10/17 10:16 Ciprofloxacin (Ciloxan Opth Soln) 2 drop EVERY 6 HOURS RIGHT EYE 11/10/17 12:00 11/17/17 11:59 11/10/17 10:24 Clonazepam (KlonoPIN) 1 mg Q6H PRN ORAL ANXIETY 11/07/17 12:30 11/14/17 12:29 11/07/17 13:12 Dextrose (Dextrose 50%) 25 ml STAT PRN IV Hypoglycemia 11/07/17 12:30 12/07/17 12:29 Dextrose (Dextrose 50%) 50 ml STAT PRN IV Hypoglycemia 11/07/17 12:30 12/07/17 12:29 Docusate Sodium (Colace) 100 mg THREE TIMES A DAY ORAL 11/07/17 18:00 12/07/17 17:59 11/10/17 10:13 Epoetin Mau (Procrit (for ESRD on dialysis)) 10,000 units SUN-SUN-SUN SUBQ 11/07/17 21:00 12/07/17 20:59 11/09/17 21:38 Gabapentin (Neurontin) 300 mg Q8HR ORAL 11/07/17 14:00 12/07/17 13:59 11/10/17 06:13 Heparin Sodium (Porcine) (Heparin 5000 units/ml) 5,000 units EVERY 12 HOURS SUBQ 11/07/17 21:00 12/07/17 20:59 11/09/17 21:37 Hydralazine HCl (Apresoline) 25 mg Q4H PRN ORAL SBP > 160mmHg 11/07/17 16:30 12/07/17 16:29 11/10/17 07:51 Insulin Aspart (NovoLOG) BEFORE MEALS AND HS SUBQ 11/07/17 16:30 12/07/17 16:29 11/07/17 21:05 Lamotrigine (LaMICtal) 100 mg Q12HR ORAL 11/07/17 21:00 12/07/17 20:59 11/10/17 10:13 Levothyroxine Sodium (Synthroid) 25 mcg DAILY@0630 ORAL 11/09/17 06:30 12/09/17 06:29 11/10/17 06:13 Lisinopril (Zestril) 10 mg BID ORAL 11/10/17 18:00 12/09/17 08:59 Ondansetron HCl (Zofran) 4 mg Q6H PRN IVP Nausea & Vomiting 11/07/17 12:30 12/07/17 12:29 Pantoprazole (Protonix) 40 mg DAILY ORAL 11/08/17 09:00 12/08/17 08:59 11/10/17 10:16 Polyethylene Glycol (Miralax) 17 gm HSPRN PRN ORAL Constipation 11/07/17 12:30 12/07/17 12:29 Quetiapine Fumarate (SEROquel) 300 mg BEDTIME ORAL 11/07/17 21:00 12/07/17 20:59 11/09/17 21:37 Sevelamer Carbonate (Renvela) 2,400 mg THREE TIMES A DAY ORAL 11/08/17 18:00 12/08/17 17:59 11/10/17 10:16 Sitagliptin Phosphate (Januvia) 25 mg ACBREAKFAST ORAL 11/08/17 06:30 12/08/17 06:29 11/10/17 06:13 Zolpidem Tartrate (Ambien) 5 mg HSPRN PRN ORAL Insomnia 11/07/17 12:30 11/14/17 12:29 Item Value Date Time Bedside Blood Glucose 100 mg/dl 11/10/17 1159 Bedside Blood Glucose 87 mg/dl 11/10/17 0609 Bedside Blood Glucose 92 mg/dl 11/09/17 2145 Bedside Blood Glucose 109 mg/dl 11/09/17 1130 Rene Dawn MD Nov 10, 2017 12:18
[2017-11-10] MEDS ORDERED: NS 500ML ONE (13:03)
--- NOTE | 2017-11-10 14:36 | Internal Med Progress Note ---
Subjective Date of Service: Nov 10, 2017 Physician Name Sukhi Cotter Attending Physician Sea Lundberg MD Current Medications Medications (Trade) Dose Ordered Sig/Gabriele Route PRN Reason Start Time Stop Time Status Last Admin Dose Admin Acetaminophen (Tylenol) 650 mg Q4H PRN ORAL fever (temp>100.5F) 11/07/17 12:30 12/07/17 12:29 Acetaminophen/ Hydrocodone Bitart ([place] 5/325) 1 tab Q6H PRN ORAL For Pain 11/10/17 13:00 11/17/17 12:59 Albuterol/ Ipratropium (Albuterol/ Ipratropium) 3 ml Q6H PRN HHN dyspnea 11/07/17 12:30 11/12/17 12:29 Aluminum Hydroxide (Amphojel) 1,920 mg TIPC ORAL 11/08/17 18:00 12/08/17 17:59 Aspirin (ASA) 81 mg DAILY ORAL 11/08/17 09:00 12/08/17 08:59 11/10/17 10:16 Atorvastatin Calcium (Lipitor) 10 mg BEDTIME ORAL 11/10/17 21:00 12/10/17 20:59 Carvedilol (Coreg) 3.125 mg EVERY 12 HOURS ORAL 11/07/17 21:00 12/07/17 20:59 11/10/17 10:16 Ciprofloxacin (Ciloxan Opth Soln) 2 drop EVERY 6 HOURS RIGHT EYE 11/10/17 12:00 11/17/17 11:59 11/10/17 10:24 Clonazepam (KlonoPIN) 1 mg Q6H PRN ORAL ANXIETY 11/07/17 12:30 11/14/17 12:29 11/07/17 13:12 Dextrose (Dextrose 50%) 25 ml STAT PRN IV Hypoglycemia 11/07/17 12:30 12/07/17 12:29 Dextrose (Dextrose 50%) 50 ml STAT PRN IV Hypoglycemia 11/07/17 12:30 12/07/17 12:29 Docusate Sodium (Colace) 100 mg THREE TIMES A DAY ORAL 11/07/17 18:00 12/07/17 17:59 11/10/17 10:13 Epoetin Mau (Procrit (for ESRD on dialysis)) 10,000 units SUN-SUN-SUN SUBQ 11/07/17 21:00 10/19/18 20:59 11/09/17 21:38 Gabapentin (Neurontin) 300 mg Q8HR ORAL 11/07/17 14:00 12/07/17 13:59 11/10/17 06:13 Heparin Sodium (Porcine) (Heparin 5000 units/ml) 5,000 units EVERY 12 HOURS SUBQ 11/07/17 21:00 12/07/17 20:59 11/09/17 21:37 Hydralazine HCl (Apresoline) 25 mg Q4H PRN ORAL SBP > 160mmHg 11/07/17 16:30 12/07/17 16:29 11/10/17 12:25 Insulin Aspart (NovoLOG) BEFORE MEALS AND HS SUBQ 11/07/17 16:30 12/07/17 16:29 11/07/17 21:05 Lamotrigine (LaMICtal) 100 mg Q12HR ORAL 11/07/17 21:00 12/07/17 20:59 11/10/17 10:13 Levothyroxine Sodium (Synthroid) 25 mcg DAILY@0630 ORAL 11/09/17 06:30 12/09/17 06:29 11/10/17 06:13 Lisinopril (Zestril) 10 mg BID ORAL 11/10/17 18:00 12/09/17 08:59 Ondansetron HCl (Zofran) 4 mg Q6H PRN IVP Nausea & Vomiting 11/07/17 12:30 12/07/17 12:29 Pantoprazole (Protonix) 40 mg DAILY ORAL 11/08/17 09:00 12/08/17 08:59 11/10/17 10:16 Polyethylene Glycol (Miralax) 17 gm HSPRN PRN ORAL Constipation 11/07/17 12:30 12/07/17 12:29 Quetiapine Fumarate (SEROquel) 300 mg BEDTIME ORAL 11/07/17 21:00 12/07/17 20:59 11/09/17 21:37 Sevelamer Carbonate (Renvela) 2,400 mg THREE TIMES A DAY ORAL 11/08/17 18:00 12/08/17 17:59 11/10/17 10:16 Sitagliptin Phosphate (Januvia) 25 mg ACBREAKFAST ORAL 11/08/17 06:30 12/08/17 06:29 11/10/17 06:13 Zolpidem Tartrate (Ambien) 5 mg HSPRN PRN ORAL Insomnia 11/07/17 12:30 11/14/17 12:29 Allergies: Coded Allergies: No Known Allergies (Verified , 08/23/06) ROS Limited/Unobtainable: No Constitutional: Reports: no symptoms HEENT: Reports: no symptoms Cardiovascular: Reports: no symptoms Respiratory: Reports: no symptoms Gastrointestinal/Abdominal: Reports: no symptoms Genitourinary: Reports: no symptoms Neurologic/Psychiatric: Reports: no symptoms Subjective 56 YO F admitted with diarrhea. Cover for Int Med-Dr Lundberg Objective Last Vital Signs Date Time Temp Pulse Resp B/P (MAP) Pulse Ox O2 Delivery O2 Flow Rate FiO2 11/10/17 12:25 185/74 11/10/17 12:00 98.1 18 96 98.1 11/10/17 10:16 59 11/10/17 09:00 Room Air 11/10/17 08:04 21 Intake and Output 11/09/17 11/10/17 19:00 07:00 Intake Total 350 ml 360 ml Output Total 664 ml Balance 350 ml -304 ml Intake Oral 360 ml Other 350 ml Output Hemodialysis UF 664 ml # Voids 2 3 Objective GENERAL: The patient is well-developed and well-nourished female in no apparent distress. HEENT: Eyes, pupils equal and responsive to light and accommodation. Extraocular movements are intact. NECK: Supple without lymphadenopathy. CHEST: Lungs are clear to auscultation bilaterally without wheezes or rales. CARDIOVASCULAR: Regular rhythm and rate. S1 and S2 normal without murmurs, rubs, or gallops. ABDOMEN: Soft, nontender, and nondistended. Positive bowel sounds. No evidence of hepatosplenomegaly. Currently, no rebound or guarding noted. EXTREMITIES: Negative for clubbing, cyanosis, or edema. RECTAL: Refused. GENITAL: Refused. NEUROLOGIC: Cranial nerves II through XII are grossly intact without focal deficits. Motor strength is 5/5 bilaterally. Deep tendon reflexes are 2+ plantar. Assessment/Plan Problem List: (1) History of colon cancer (2) ESRD (end stage renal disease) on dialysis Assessment & Plan: S/P hemodialysis 11/09/17 - Next 11/12/17-see nephrology note. (3) Diarrhea Assessment & Plan: Resolved (4) HTN (hypertension) Assessment & Plan: Continue lisinopril (5) CHF (congestive heart failure) (6) Diabetes mellitus, type II Assessment & Plan: Continue novolog and januvia (7) Anemia in chronic renal disease (8) Bipolar depression Assessment & Plan: Continue seroquel per psych Status: progressing Assessment/Plan Discharge planning: shelter fac Sukhi Cotter MD Nov 10, 2017 14:36
[2017-11-10 15:56] VITALS: BP 192/72
[2017-11-10] MEDS: Lisinopril 10mg tab ORAL SCH (17:26)
[2017-11-10] MEDS: Norco 5mg/325mg tab ORAL PRN (17:28)
[2017-11-10 20:00] VITALS: BP 183/75
[2017-11-11] VITALS (8 sets, daily range): BP systolic 126–207; BP diastolic 73–109
[2017-11-11] MEDS: Ciprofloxacin Opth Soln 2.5ml RIGHT EYE SCH ×4 (00:19→17:11)
[2017-11-11] MEDS: HydrALAZINE 25mg tab ORAL PRN ×3 (04:37→20:43)
[2017-11-11] MEDS: Levothyroxine 25mcg tab ORAL SCH (06:00)
[2017-11-11] MEDS: sitaGLIPtin 25mg tab ORAL SCH (06:00)
[2017-11-11] MEDS: NovoLOG Insulin Flexpen SUBQ SCH ×5 (06:02→20:49)
--- NOTE | 2017-11-11 07:56 | Consultation ---
Consult Note Assessment/Plan A/ 1) Chronic DM foot ulcers right hallux and left 4th toe 2) DM neuropathy 3) ESRD 4) CHF 5) Obesity P/ 1) Cont wound care as ordered. No surgical intervention at this time 2) Ordered: Arterial ultz BLE, X-rays bilateral feet 3) Cont post op shoes 4) Will follow Thank you [place] DPM Nov 11, 2017 07:56
[2017-11-11] MEDS: Lisinopril 10mg tab ORAL SCH (08:19)
[2017-11-11] MEDS: Carvedilol 12.5mg tab ORAL SCH ×2 (08:20→20:43)
[2017-11-11] MEDS: Aspirin Baby 81mg ORAL SCH (08:20)
[2017-11-11] MEDS: Aluminum Hydroxide Gel Susp 15ml ORAL SCH ×5 (08:21→17:12)
[2017-11-11] MEDS: Docusate 100mg cap ORAL SCH ×3 (08:21→17:12)
--- NOTE | 2017-11-11 08:56 | Pulmonology Progress Note ---
Assessment/Plan Assessment/Plan ASSESSMENT pulmonary edema end-stage renal disease on HD seizure disorder noncompliance anemia of chronic renal disease HTN pulmonary HTN hypothyroidism DM with diabetic neuropathy morbid obesity hyperlipidemia history of colon cancer noncompliance PLAN OF CARE Med Surg floor O2 prn to keep pulse ox above 92%, pulmonary toilet HD per nephro with close monitoring of volumes, renal parameters and lytes, correct lytes prn encourage compliance BP management with VIKY ; hydralazine prn Continue ASA BS management with Januvia and SSI prn , HgA1c at goal endo follows diabetic teaching monitor HH with goal to keep Hgb above 7 anemia w/up c/w anemia of chronic disease continue EPO DVT , GI prophylaxis pain management , continue Neurontin lipid panel noted , continue statin PT/OT bowel regimen seizure precautions, continue Lamictal dc plan case discussed and evaluated by supervising physician Subjective Allergies: Coded Allergies: No Known Allergies (Verified , 08/23/06) Subjective denies chest pain, SOB HD in am endo seen and evaluated 11/10 per patient request to see telecommunications support Objective Last 24 Hour Vital Signs Date Time Temp Pulse Resp B/P (MAP) Pulse Ox O2 Delivery O2 Flow Rate FiO2 11/11/17 08:31 68 18 Room Air 21 11/11/17 08:20 86 202/80 11/11/17 08:19 202/80 11/11/17 08:00 98.0 16 202/80 (120) 95 98.0 11/11/17 06:00 171/84 (113) 11/11/17 04:37 197/74 11/11/17 04:00 97.9 18 197/74 (115) 95 97.9 11/11/17 00:00 97.9 18 173/73 (106) 92 97.9 11/10/17 21:30 183/75 11/10/17 21:07 86 183/75 11/10/17 21:00 Room Air 11/10/17 20:00 97.4 18 183/75 (111) 93 97.4 11/10/17 19:45 86 20 Room Air 21 11/10/17 17:58 97.5 11/10/17 17:28 97.5 11/10/17 17:26 192/72 11/10/17 15:56 97.5 20 192/72 (112) 95 97.5 11/10/17 12:25 185/74 11/10/17 12:00 98.1 18 185/74 (111) 96 98.1 11/10/17 10:16 59 181/72 11/10/17 09:00 Room Air Intake and Output 11/10/17 11/11/17 19:00 07:00 Intake Total 1080 ml Balance 1080 ml Intake Oral 1080 ml # Voids 3 4 # Bowel Movements 1 Objective General Appearance: no acute distress, A/A/O x 3 obese female HEENT: normocephalic, atraumatic Respiratory/Chest: lungs clear Cardiovascular: normal rate, no JVD Abdomen: soft, non tender , obese Neurologic/Psychiatric: alert Musculoskeletal: normal muscle bulk Current Medications Medications (Trade) Dose Ordered Sig/Gabriele Route PRN Reason Start Time Stop Time Status Last Admin Dose Admin Acetaminophen (Tylenol) 650 mg Q4H PRN ORAL fever (temp>100.5F) 11/07/17 12:30 12/07/17 12:29 Acetaminophen/ Hydrocodone Bitart ([place] 5/325) 1 tab Q6H PRN ORAL For Pain 11/10/17 13:00 11/17/17 12:59 11/10/17 17:28 Albuterol/ Ipratropium (Albuterol/ Ipratropium) 3 ml Q6H PRN HHN dyspnea 11/07/17 12:30 11/12/17 12:29 Aluminum Hydroxide (Amphojel) 1,920 mg TIPC ORAL 11/08/17 18:00 12/08/17 17:59 11/11/17 08:21 Aspirin (ASA) 81 mg DAILY ORAL 11/08/17 09:00 12/08/17 08:59 11/11/17 08:20 Atorvastatin Calcium (Lipitor) 10 mg BEDTIME ORAL 11/10/17 21:00 12/10/17 20:59 11/10/17 21:08 Carvedilol (Coreg) 3.125 mg EVERY 12 HOURS ORAL 11/07/17 21:00 12/07/17 20:59 11/11/17 08:20 Ciprofloxacin (Ciloxan Opth Soln) 2 drop EVERY 6 HOURS RIGHT EYE 11/10/17 12:00 11/17/17 11:59 11/11/17 06:00 Clonazepam (KlonoPIN) 1 mg Q6H PRN ORAL ANXIETY 11/07/17 12:30 11/14/17 12:29 11/07/17 13:12 Dextrose (Dextrose 50%) 25 ml STAT PRN IV Hypoglycemia 11/07/17 12:30 12/07/17 12:29 Dextrose (Dextrose 50%) 50 ml STAT PRN IV Hypoglycemia 11/07/17 12:30 12/07/17 12:29 Docusate Sodium (Colace) 100 mg THREE TIMES A DAY ORAL 11/07/17 18:00 12/07/17 17:59 11/11/17 08:21 Epoetin Mau (Procrit (for ESRD on dialysis)) 10,000 units SUN-SUN-SUN SUBQ 11/07/17 21:00 12/07/17 20:59 11/09/17 21:38 Gabapentin (Neurontin) 300 mg Q8HR ORAL 11/07/17 14:00 12/07/17 13:59 11/11/17 06:00 Heparin Sodium (Porcine) (Heparin 5000 units/ml) 5,000 units EVERY 12 HOURS SUBQ 11/07/17 21:00 12/07/17 20:59 11/10/17 21:09 Hydralazine HCl (Apresoline) 25 mg Q4H PRN ORAL SBP > 160mmHg 11/07/17 16:30 12/07/17 16:29 11/11/17 04:37 Insulin Aspart (NovoLOG) BEFORE MEALS AND HS SUBQ 11/07/17 16:30 12/07/17 16:29 11/10/17 17:24 Lamotrigine (LaMICtal) 100 mg Q12HR ORAL 11/07/17 21:00 12/07/17 20:59 11/11/17 08:20 Levothyroxine Sodium (Synthroid) 25 mcg DAILY@0630 ORAL 11/09/17 06:30 12/09/17 06:29 11/11/17 06:00 Lisinopril (Zestril) 10 mg BID ORAL 11/10/17 18:00 12/09/17 08:59 11/11/17 08:19 Ondansetron HCl (Zofran) 4 mg Q6H PRN IVP Nausea & Vomiting 11/07/17 12:30 12/07/17 12:29 Pantoprazole (Protonix) 40 mg DAILY ORAL 11/08/17 09:00 12/08/17 08:59 11/11/17 08:20 Polyethylene Glycol (Miralax) 17 gm HSPRN PRN ORAL Constipation 11/07/17 12:30 12/07/17 12:29 Quetiapine Fumarate (SEROquel) 300 mg BEDTIME ORAL 11/07/17 21:00 12/07/17 20:59 11/10/17 21:07 Sevelamer Carbonate (Renvela) 2,400 mg THREE TIMES A DAY ORAL 11/08/17 18:00 12/08/17 17:59 11/11/17 08:21 Sitagliptin Phosphate (Januvia) 25 mg ACBREAKFAST ORAL 11/08/17 06:30 12/08/17 06:29 11/11/17 06:00 Zolpidem Tartrate (Ambien) 5 mg HSPRN PRN ORAL Insomnia 11/07/17 12:30 11/14/17 12:29 Alisha Kemp NP Nov 11, 2017 08:56
[2017-11-11] MEDS: Heparin 5000 units/ml inj SUBQ SCH ×2 (09:00→20:49)
[2017-11-11] MEDS ORDERED: Lisinopril 10mg tab ORAL SCH (10:09)
--- NOTE | 2017-11-11 10:09 | Nephrology Progress Note ---
Assessment/Plan Problem List: (1) ESRD (end stage renal disease) on dialysis (2) Hypothyroidism (3) Hypercholesteremia (4) Diabetes mellitus, type II (5) Anemia in chronic renal disease (6) Hypertensive kidney disease Assessment --Bilateral leg numbness --diabetic neuropathy --L5-S1 disc protrusion - hypothyroidism - End-stage renal disease, on hemodialysis. - Anemia of chronic kidney disease. - HTN / Pulmonary HTN - Diabetes type 2. - Morbid obesity. - H/O Colon Cancer - H/O Hep C - H/O Depression and Bipolar disease - Psych disease uncoaporative Plan refused lab today Adjust BP , Niorvasc and lisinopril added BS meds- Anemia yao HD next 11/12 per consultants, per psych start DC planning Subjective ROS Limited/Unobtainable: No Objective Objective Last 24 Hour Vital Signs Date Time Temp Pulse Resp B/P (MAP) Pulse Ox O2 Delivery O2 Flow Rate FiO2 11/11/17 09:00 Room Air 11/11/17 08:31 68 18 Room Air 11/11/17 08:20 86 202/80 11/11/17 08:19 202/80 11/11/17 08:00 98.0 16 202/80 (120) 95 98.0 11/11/17 06:00 171/84 (113) 11/11/17 04:37 197/74 11/11/17 04:00 97.9 18 197/74 (115) 95 97.9 11/11/17 00:00 97.9 18 173/73 (106) 92 97.9 11/10/17 21:30 183/75 11/10/17 21:07 86 183/75 11/10/17 21:00 Room Air 11/10/17 20:00 97.4 18 183/75 (111) 93 97.4 11/10/17 19:45 86 20 Room Air 21 11/10/17 17:58 97.5 11/10/17 17:28 97.5 11/10/17 17:26 192/72 11/10/17 15:56 97.5 20 192/72 (112) 95 97.5 11/10/17 12:25 185/74 11/10/17 12:00 98.1 18 185/74 (111) 96 98.1 11/10/17 10:16 59 181/72 Intake and Output 11/10/17 11/11/17 19:00 07:00 Intake Total 1080 ml Balance 1080 ml Intake Oral 1080 ml # Voids 3 4 # Bowel Movements 1 Height (Feet): 5 Height (Inches): 5.00 Weight (Pounds): 223 General Appearance: no apparent distress Objective no change Eamon Solis MD Nov 11, 2017 10:09
[2017-11-11 10:29] LABS: BASOPHILS % (AUTO) 1.3 % (0.0-2.0); EOSINOPHILS % (AUTO) 3.4 % (0.0-3.0); HEMATOCRIT 27.4 % (37.0-47.0); HEMOGLOBIN 8.8 G/DL (12.0-16.0); LYMPHOCYTES % (AUTO) 17.3 % (20.0-45.0); MEAN CORPUSCULAR VOLUME 97 FL (80-99); MONOCYTES % (AUTO) 9.4 % (1.0-10.0); NEUTROPHILS % (AUTO) 68.6 % (45.0-75.0); PLATELET COUNT 188 K/UL (150-450); RED BLOOD COUNT 2.83 M/UL (4.20-5.40); RED CELL DISTRIBUTION WIDTH 14.1 % (11.6-14.8); WHITE BLOOD COUNT 8.1 K/UL (4.8-10.8)
--- NOTE | 2017-11-11 10:35 | General Progress Note ---
Assessment/Plan Problem List: (1) Hypothyroidism ICD Codes: E03.9 - Hypothyroidism, unspecified SNOMED: 10523271 (2) Bipolar depression ICD Codes: F31.30 - Bipolar disorder, current episode depressed, mild or moderate severity, unspecified SNOMED: 76097771 (3) ESRD (end stage renal disease) on dialysis ICD Codes: N18.6 - End stage renal disease; Z99.2 - Dependence on renal dialysis SNOMED: 404089536 (4) Diabetes mellitus, type II ICD Codes: E11.9 - Type 2 diabetes mellitus without complications SNOMED: 78833636 Assessment/Plan continue Synthroid 25 mcg daily - TSH is at target continue Januvia renal dose of 25 mg + SSI Subjective Allergies: Coded Allergies: No Known Allergies (Verified , 08/23/06) All Systems: reviewed and negative except above Subjective events noted Objective Last 24 Hour Vital Signs Date Time Temp Pulse Resp B/P (MAP) Pulse Ox O2 Delivery O2 Flow Rate FiO2 11/11/17 09:00 Room Air 11/11/17 08:31 68 18 Room Air 11/11/17 08:20 86 202/80 11/11/17 08:19 202/80 11/11/17 08:00 98.0 16 202/80 (120) 95 98.0 11/11/17 06:00 171/84 (113) 11/11/17 04:37 197/74 11/11/17 04:00 97.9 18 197/74 (115) 95 97.9 11/11/17 00:00 97.9 18 173/73 (106) 92 97.9 11/10/17 21:30 183/75 11/10/17 21:07 86 183/75 11/10/17 21:00 Room Air 11/10/17 20:00 97.4 18 183/75 (111) 93 97.4 11/10/17 19:45 86 20 Room Air 21 11/10/17 17:58 97.5 11/10/17 17:28 97.5 11/10/17 17:26 192/72 11/10/17 15:56 97.5 20 192/72 (112) 95 97.5 11/10/17 12:25 185/74 11/10/17 12:00 98.1 18 185/74 (111) 96 98.1 Intake and Output 11/10/17 11/11/17 19:00 07:00 Intake Total 1080 ml Balance 1080 ml Intake Oral 1080 ml # Voids 3 4 # Bowel Movements 1 Laboratory Tests 11/11/17 10:15: White Blood Count [Pending], Red Blood Count [Pending], Hemoglobin [Pending], Hematocrit [Pending], Mean Corpuscular Volume [Pending], Mean Corpuscular Hemoglobin [Pending], Mean Corpuscular Hemoglobin Concent [Pending], Red Cell Distribution Width [Pending], Platelet Count [Pending], Mean Platelet Volume [ Pending], Neutrophils (%) (Auto) [Pending], Lymphocytes (%) (Auto) [Pending], Monocytes (%) (Auto) [Pending], Eosinophils (%) (Auto) [Pending], Basophils (%) (Auto) [Pending], Sodium Level [Pending], Potassium Level [Pending], Chloride Level [Pending], Carbon Dioxide Level [Pending], Blood Urea Nitrogen [Pending], Creatinine [Pending], Estimat Glomerular Filtration Rate [Pending], Glucose Level [Pending], Calcium Level [Pending], Phosphorus Level [Pending], Total Bilirubin [Pending], Aspartate Amino Transf (AST/SGOT) [Pending], Alanine Aminotransferase (ALT/SGPT) [Pending], Alkaline Phosphatase [Pending], Pro-B- Type Natriuretic Peptide [Pending], Total Protein [Pending], Albumin [Pending], Globulin [Pending] Height (Feet): 5 Height (Inches): 5.00 Weight (Pounds): 223 General Appearance: no apparent distress Neck: normal alignment Cardiovascular: normal rate Respiratory/Chest: lungs clear Abdomen: normal bowel sounds Edema: 1+ Arm (L), 1+ Arm (R), 1+ Leg (L), 1+ Leg (R), 1+ Pedal (L), 1+ Pedal ( R), 1+ Generalized Objective Current Medications Medications (Trade) Dose Ordered Sig/Gabriele Route PRN Reason Start Time Stop Time Status Last Admin Dose Admin Acetaminophen (Tylenol) 650 mg Q4H PRN ORAL fever (temp>100.5F) 11/07/17 12:30 10/19/18 12:29 Acetaminophen/ Hydrocodone Bitart ([place] 5/325) 1 tab Q6H PRN ORAL For Pain 11/10/17 13:00 11/17/17 12:59 11/10/17 17:28 Albuterol/ Ipratropium (Albuterol/ Ipratropium) 3 ml Q6H PRN HHN dyspnea 11/07/17 12:30 11/12/17 12:29 Aluminum Hydroxide (Amphojel) 1,920 mg TIPC ORAL 11/08/17 18:00 12/08/17 17:59 Amlodipine Besylate (Norvasc) 5 mg DAILY ORAL 11/12/17 09:00 12/12/17 08:59 Amlodipine Besylate (Norvasc) 5 mg ONCE ORAL 11/11/17 10:09 11/11/17 11:09 Aspirin (ASA) 81 mg DAILY ORAL 11/08/17 09:00 12/08/17 08:59 11/11/17 08:20 Atorvastatin Calcium (Lipitor) 10 mg BEDTIME ORAL 11/10/17 21:00 12/10/17 20:59 11/10/17 21:08 Carvedilol (Coreg) 3.125 mg EVERY 12 HOURS ORAL 11/07/17 21:00 12/07/17 20:59 11/11/17 08:20 Ciprofloxacin (Ciloxan Opth Soln) 2 drop EVERY 6 HOURS RIGHT EYE 11/10/17 12:00 11/17/17 11:59 11/11/17 06:00 Clonazepam (KlonoPIN) 1 mg Q6H PRN ORAL ANXIETY 11/07/17 12:30 11/14/17 12:29 11/07/17 13:12 Dextrose (Dextrose 50%) 25 ml STAT PRN IV Hypoglycemia 11/07/17 12:30 12/07/17 12:29 Dextrose (Dextrose 50%) 50 ml STAT PRN IV Hypoglycemia 11/07/17 12:30 12/07/17 12:29 Docusate Sodium (Colace) 100 mg THREE TIMES A DAY ORAL 11/07/17 18:00 12/07/17 17:59 11/11/17 08:21 Epoetin Mau (Procrit (for ESRD on dialysis)) 10,000 units SUN-SUN-SUN SUBQ 11/07/17 21:00 12/07/17 20:59 11/09/17 21:38 Gabapentin (Neurontin) 300 mg Q8HR ORAL 11/07/17 14:00 12/07/17 13:59 11/11/17 06:00 Heparin Sodium (Porcine) (Heparin 5000 units/ml) 5,000 units EVERY 12 HOURS SUBQ 11/07/17 21:00 12/07/17 20:59 11/10/17 21:09 Hydralazine HCl (Apresoline) 25 mg Q4H PRN ORAL SBP > 160mmHg 11/07/17 16:30 12/07/17 16:29 11/11/17 04:37 Insulin Aspart (NovoLOG) BEFORE MEALS AND HS SUBQ 11/07/17 16:30 12/07/17 16:29 11/10/17 17:24 Lamotrigine (LaMICtal) 100 mg Q12HR ORAL 11/07/17 21:00 12/07/17 20:59 11/11/17 08:20 Levothyroxine Sodium (Synthroid) 25 mcg DAILY@0630 ORAL 11/09/17 06:30 12/09/17 06:29 11/11/17 06:00 Lisinopril (Zestril) 5 mg DAILY ORAL 11/12/17 09:00 12/12/17 08:59 Lisinopril (Zestril) 10 mg ONCE ORAL 11/11/17 10:09 11/11/17 11:09 Ondansetron HCl (Zofran) 4 mg Q6H PRN IVP Nausea & Vomiting 11/07/17 12:30 12/07/17 12:29 Pantoprazole (Protonix) 40 mg DAILY ORAL 11/08/17 09:00 12/08/17 08:59 11/11/17 08:20 Polyethylene Glycol (Miralax) 17 gm HSPRN PRN ORAL Constipation 11/07/17 12:30 12/07/17 12:29 Quetiapine Fumarate (SEROquel) 300 mg BEDTIME ORAL 11/07/17 21:00 12/07/17 20:59 11/10/17 21:07 Sevelamer Carbonate (Renvela) 2,400 mg THREE TIMES A DAY ORAL 11/08/17 18:00 12/08/17 17:59 11/11/17 08:21 Sitagliptin Phosphate (Januvia) 25 mg ACBREAKFAST ORAL 11/08/17 06:30 12/08/17 06:29 11/11/17 06:00 Zolpidem Tartrate (Ambien) 5 mg HSPRN PRN ORAL Insomnia 11/07/17 12:30 11/14/17 12:29 Item Value Date Time Bedside Blood Glucose 111 mg/dl 11/11/17 0612 Bedside Blood Glucose 101 mg/dl 11/10/17 2100 Bedside Blood Glucose 122 mg/dl H 11/10/17 1724 Bedside Blood Glucose 100 mg/dl 11/10/17 1159 Bedside Blood Glucose 87 mg/dl 11/10/17 0609 Rene Dawn MD Nov 11, 2017 10:35
[2017-11-11 10:59] LABS: ALANINE AMINOTRANSFERASE 18 U/L (12-78); ALBUMIN 2.7 G/DL (3.4-5.0); ALBUMIN/GLOBULIN RATIO 0.6 (1.0-2.7); ALKALINE PHOSPHATASE 117 U/L (46-116); ANION GAP 12 mmol/L (5-15); ASPARTATE AMINO TRANSFERASE 12 U/L (15-37); BILIRUBIN,TOTAL 0.4 MG/DL (0.2-1.0); BLOOD UREA NITROGEN 78 mg/dL (7-18); CARBON DIOXIDE 26 MMOL/L (21-32); CHLORIDE 99 MMOL/L (98-107); CREATININE 9.5 MG/DL (0.55-1.30); PHOSPHORUS 7.3 MG/DL (2.5-4.9); POTASSIUM 4.6 MMOL/L (3.5-5.1); SODIUM 137 MMOL/L (136-145)
--- NOTE | 2017-11-11 14:12 | Internal Med Progress Note ---
Subjective Physician Name Sea Lundberg Attending Physician Sea Lundberg MD Current Medications Medications (Trade) Dose Ordered Sig/Gabriele Route PRN Reason Start Time Stop Time Status Last Admin Dose Admin Acetaminophen (Tylenol) 650 mg Q4H PRN ORAL fever (temp>100.5F) 11/07/17 12:30 12/07/17 12:29 Acetaminophen/ Hydrocodone Bitart ([place] 5/325) 1 tab Q6H PRN ORAL For Pain 11/10/17 13:00 11/17/17 12:59 11/10/17 17:28 Albuterol/ Ipratropium (Albuterol/ Ipratropium) 3 ml Q6H PRN HHN dyspnea 11/07/17 12:30 11/12/17 12:29 Aluminum Hydroxide (Amphojel) 1,920 mg TIPC ORAL 11/08/17 18:00 12/08/17 17:59 Amlodipine Besylate (Norvasc) 5 mg DAILY ORAL 11/12/17 09:00 12/12/17 08:59 Aspirin (ASA) 81 mg DAILY ORAL 11/08/17 09:00 12/08/17 08:59 11/11/17 08:20 Atorvastatin Calcium (Lipitor) 10 mg BEDTIME ORAL 11/10/17 21:00 12/10/17 20:59 11/10/17 21:08 Carvedilol (Coreg) 3.125 mg EVERY 12 HOURS ORAL 11/07/17 21:00 12/07/17 20:59 11/11/17 08:20 Ciprofloxacin (Ciloxan Opth Soln) 2 drop EVERY 6 HOURS RIGHT EYE 11/10/17 12:00 11/17/17 11:59 11/11/17 11:12 Clonazepam (KlonoPIN) 1 mg Q6H PRN ORAL ANXIETY 11/07/17 12:30 11/14/17 12:29 11/07/17 13:12 Dextrose (Dextrose 50%) 25 ml STAT PRN IV Hypoglycemia 11/07/17 12:30 12/07/17 12:29 Dextrose (Dextrose 50%) 50 ml STAT PRN IV Hypoglycemia 11/07/17 12:30 12/07/17 12:29 Docusate Sodium (Colace) 100 mg THREE TIMES A DAY ORAL 11/07/17 18:00 12/07/17 17:59 11/11/17 13:56 Epoetin Mau (Procrit (for ESRD on dialysis)) 10,000 units SUN-SUN-SUN SUBQ 11/07/17 21:00 12/07/17 20:59 11/09/17 21:38 Gabapentin (Neurontin) 300 mg Q8HR ORAL 11/07/17 14:00 12/07/17 13:59 11/11/17 13:56 Heparin Sodium (Porcine) (Heparin 5000 units/ml) 5,000 units EVERY 12 HOURS SUBQ 11/07/17 21:00 12/07/17 20:59 11/10/17 21:09 Hydralazine HCl (Apresoline) 25 mg Q4H PRN ORAL SBP > 160mmHg 11/07/17 16:30 12/07/17 16:29 11/11/17 04:37 Insulin Aspart (NovoLOG) BEFORE MEALS AND HS SUBQ 11/07/17 16:30 12/07/17 16:29 11/10/17 17:24 Lamotrigine (LaMICtal) 100 mg Q12HR ORAL 11/07/17 21:00 12/07/17 20:59 11/11/17 08:20 Levothyroxine Sodium (Synthroid) 25 mcg DAILY@0630 ORAL 11/09/17 06:30 12/09/17 06:29 11/11/17 06:00 Lisinopril (Zestril) 5 mg DAILY ORAL 11/12/17 09:00 12/12/17 08:59 Ondansetron HCl (Zofran) 4 mg Q6H PRN IVP Nausea & Vomiting 11/07/17 12:30 12/07/17 12:29 Pantoprazole (Protonix) 40 mg DAILY ORAL 11/08/17 09:00 12/08/17 08:59 11/11/17 08:20 Polyethylene Glycol (Miralax) 17 gm HSPRN PRN ORAL Constipation 11/07/17 12:30 12/07/17 12:29 11/11/17 11:12 Quetiapine Fumarate (SEROquel) 300 mg BEDTIME ORAL 11/07/17 21:00 12/07/17 20:59 11/10/17 21:07 Sevelamer Carbonate (Renvela) 2,400 mg THREE TIMES A DAY ORAL 11/08/17 18:00 12/08/17 17:59 11/11/17 08:21 Sitagliptin Phosphate (Januvia) 25 mg ACBREAKFAST ORAL 11/08/17 06:30 12/08/17 06:29 11/11/17 06:00 Zolpidem Tartrate (Ambien) 5 mg HSPRN PRN ORAL Insomnia 11/07/17 12:30 11/14/17 12:29 Allergies: Coded Allergies: No Known Allergies (Verified , 08/23/06) Subjective awake, alert, responsive, NAD, C/O right eye redness Objective Last Vital Signs Date Time Temp Pulse Resp B/P (MAP) Pulse Ox O2 Delivery O2 Flow Rate FiO2 11/11/17 11:48 97.3 12 207/74 (118) 93 97.3 11/11/17 10:52 68 11/11/17 09:00 Room Air 11/11/17 08:31 21 Laboratory Tests Test 11/11/17 10:15 White Blood Count 8.1 K/UL (4.8-10.8) Red Blood Count 2.83 M/UL (4.20-5.40) L Hemoglobin 8.8 G/DL (12.0-16.0) L Hematocrit 27.4 % (37.0-47.0) L Mean Corpuscular Volume 97 FL (80-99) Mean Corpuscular Hemoglobin 31.1 PG (27.0-31.0) H Mean Corpuscular Hemoglobin Concent 32.0 G/DL (32.0-36.0) Red Cell Distribution Width 14.1 % (11.6-14.8) Platelet Count 188 K/UL (150-450) Mean Platelet Volume 7.1 FL (6.5-10.1) Neutrophils (%) (Auto) 68.6 % (45.0-75.0) Lymphocytes (%) (Auto) 17.3 % (20.0-45.0) L Monocytes (%) (Auto) 9.4 % (1.0-10.0) Eosinophils (%) (Auto) 3.4 % (0.0-3.0) H Basophils (%) (Auto) 1.3 % (0.0-2.0) Sodium Level 137 MMOL/L (136-145) Potassium Level 4.6 MMOL/L (3.5-5.1) Chloride Level 99 MMOL/L (98-107) Carbon Dioxide Level 26 MMOL/L (21-32) Anion Gap 12 mmol/L (5-15) Blood Urea Nitrogen 78 mg/dL (7-18) H Creatinine 9.5 MG/DL (0.55-1.30) H Estimat Glomerular Filtration Rate 4.3 mL/min (>60) Glucose Level 99 MG/DL (74-106) Calcium Level 9.0 MG/DL (8.5-10.1) Phosphorus Level 7.3 MG/DL (2.5-4.9) H Total Bilirubin 0.4 MG/DL (0.2-1.0) Aspartate Amino Transf (AST/SGOT) 12 U/L (15-37) L Alanine Aminotransferase (ALT/SGPT) 18 U/L (12-78) Alkaline Phosphatase 117 U/L (46-116) H Pro-B-Type Natriuretic Peptide 02768 pg/mL (0-125) H Total Protein 6.9 G/DL (6.4-8.2) Albumin 2.7 G/DL (3.4-5.0) L Globulin 4.2 g/dL Albumin/Globulin Ratio 0.6 (1.0-2.7) L Intake and Output 11/10/17 11/11/17 19:00 07:00 Intake Total 1080 ml Balance 1080 ml Intake Oral 1080 ml # Voids 3 4 # Bowel Movements 1 Objective General: No acute distress, awake and alert HEENT: NCAT, sclera anicteric, PERRL, EOMI, right eye erythema. Neck: Supple, no significant jugular venous distention, Lungs: Fair inspiratory effort, clear to auscultation bilaterally, no Wheeze or Rales. Heart: Regular rate and rhythm, normal S1/S2, no murmurs Abdomen: soft, nontender, nondistended. Normoactive bowel sounds, Obesity, Extremities: No Cyanosis , clubbing +1 LE's edema. RUE AVF. Neuro: A&O x 3, Able to move all extremities Skin: warm, no rashes Psych: anxious mood and affect Assessment/Plan Assessment/Plan 1. Congestive heart failure. 2. Diarrhea. 3. Generalized weakness. 4. Hypertension. 5. End-stage renal disease. 6. Type 2 diabetes. 7. Anemia of chronic renal disease. 8. Bipolar depression. 9. History of colon cancer. 10. Anemia of chronic renal disease 11. Hypothyroidism 12. Right Eye conjunctivitis. Plan: Dialysis Code status: Full code DC planning for SNF placement. Cipro ophthalmic Sea Lundberg MD Nov 11, 2017 14:12
[2017-11-11] MEDS: Norco 5mg/325mg tab ORAL PRN (16:10)
[2017-11-12] VITALS (8 sets, daily range): BP systolic 118–204; BP diastolic 60–98
[2017-11-12] MEDS: Ciprofloxacin Opth Soln 2.5ml RIGHT EYE SCH ×5 (00:09→23:48)
[2017-11-12] MEDS: sitaGLIPtin 25mg tab ORAL SCH (05:09)
[2017-11-12] MEDS: Levothyroxine 25mcg tab ORAL SCH (05:09)
[2017-11-12] MEDS: NovoLOG Insulin Flexpen SUBQ SCH ×4 (06:30→20:31)
--- NOTE | 2017-11-12 06:40 | General Progress Note ---
Assessment/Plan Problem List: (1) Hypothyroidism ICD Codes: E03.9 - Hypothyroidism, unspecified SNOMED: 54082721 (2) Bipolar depression ICD Codes: F31.30 - Bipolar disorder, current episode depressed, mild or moderate severity, unspecified SNOMED: 23561862 (3) ESRD (end stage renal disease) on dialysis ICD Codes: N18.6 - End stage renal disease; Z99.2 - Dependence on renal dialysis SNOMED: 631977586 (4) Diabetes mellitus, type II ICD Codes: E11.9 - Type 2 diabetes mellitus without complications SNOMED: 18627502 Assessment/Plan continue Synthroid 25 mcg daily - TSH is at target continue Januvia renal dose of 25 mg + SSI Subjective Allergies: Coded Allergies: No Known Allergies (Verified , 08/23/06) All Systems: reviewed and negative except above Subjective events noted Objective Last 24 Hour Vital Signs Date Time Temp Pulse Resp B/P (MAP) Pulse Ox O2 Delivery O2 Flow Rate FiO2 11/12/17 04:00 98.0 20 158/60 (92) 58 98.0 11/12/17 00:00 97.6 18 182/65 (104) 63 97.6 11/11/17 21:00 Room Air 11/11/17 20:43 200/75 11/11/17 20:43 71 200/75 11/11/17 20:00 98.0 20 200/75 (116) 66 98.0 11/11/17 19:32 71 18 Room Air 21 11/11/17 16:10 97.9 11/11/17 15:57 97.9 18 126/73 (90) 95 97.9 11/11/17 15:04 168/109 11/11/17 14:56 168/109 (128) 11/11/17 11:48 97.3 12 207/74 (118) 93 97.3 11/11/17 10:52 /80 11/11/17 10:52 68 /11/11/17 09:00 Room Air 11/11/17 08:31 68 18 Room Air 21 11/11/17 08:20 86 202/80 11/11/17 08:19 202/80 11/11/17 08:00 98.0 16 (120) 95 98.0 Intake and Output 11/11/17 11/12/17 19:00 07:00 Intake Total 1000 ml Balance 1000 ml Other 1000 ml # Voids 4 1 Laboratory Tests 11/11/17 10:15: White Blood Count 8.1, Red Blood Count 2.83L, Hemoglobin 8.8L, Hematocrit 27.4L , Mean Corpuscular Volume 97, Mean Corpuscular Hemoglobin 31.1H, Mean Corpuscular Hemoglobin Concent 32.0, Red Cell Distribution Width 14.1, Platelet Count 188, Mean Platelet Volume 7.1, Neutrophils (%) (Auto) 68.6, Lymphocytes (% ) (Auto) 17.3L, Monocytes (%) (Auto) 9.4, Eosinophils (%) (Auto) 3.4H, Basophils (%) (Auto) 1.3, Sodium Level 137, Potassium Level 4.6, Chloride Level 99, Carbon Dioxide Level 26, Anion Gap 12, Blood Urea Nitrogen 78H, Creatinine 9.5H, Estimat Glomerular Filtration Rate 4.3, Glucose Level 99, Calcium Level 9.0, Phosphorus Level 7.3H, Total Bilirubin 0.4, Aspartate Amino Transf (AST/ SGOT) 12L, Alanine Aminotransferase (ALT/SGPT) 18, Alkaline Phosphatase 117H, Pro-B-Type Natriuretic Peptide 46679N, Total Protein 6.9, Albumin 2.7L, Globulin 4.2, Albumin/Globulin Ratio 0.6L Height (Feet): 5 Height (Inches): 5.00 Weight (Pounds): 223 General Appearance: no apparent distress Neck: normal alignment Cardiovascular: normal rate Respiratory/Chest: lungs clear Abdomen: normal bowel sounds Objective Current Medications Medications (Trade) Dose Ordered Sig/Gabriele Route PRN Reason Start Time Stop Time Status Last Admin Dose Admin Acetaminophen (Tylenol) 650 mg Q4H PRN ORAL fever (temp>100.5F) 11/07/17 12:30 12/07/17 12:29 Acetaminophen/ Hydrocodone Bitart ([place] 5/325) 1 tab Q6H PRN ORAL For Pain 11/10/17 13:00 11/17/17 12:59 11/11/17 16:10 Albuterol/ Ipratropium (Albuterol/ Ipratropium) 3 ml Q6H PRN HHN dyspnea 11/07/17 12:30 11/12/17 12:29 Aluminum Hydroxide (Amphojel) 1,920 mg TIPC ORAL 11/08/17 18:00 12/08/17 17:59 Amlodipine Besylate (Norvasc) 5 mg DAILY ORAL 11/12/17 09:00 12/12/17 08:59 Aspirin (ASA) 81 mg DAILY ORAL 11/08/17 09:00 12/08/17 08:59 11/11/17 08:20 Atorvastatin Calcium (Lipitor) 10 mg BEDTIME ORAL 11/10/17 21:00 12/10/17 20:59 11/11/17 20:43 Carvedilol (Coreg) 3.125 mg EVERY 12 HOURS ORAL 11/07/17 21:00 12/07/17 20:59 11/11/17 20:43 Ciprofloxacin (Ciloxan Opth Soln) 2 drop EVERY 6 HOURS RIGHT EYE 11/10/17 12:00 11/17/17 11:59 11/12/17 05:09 Clonazepam (KlonoPIN) 1 mg Q6H PRN ORAL ANXIETY 11/07/17 12:30 11/14/17 12:29 11/07/17 13:12 Dextrose (Dextrose 50%) 25 ml STAT PRN IV Hypoglycemia 11/07/17 12:30 12/07/17 12:29 Dextrose (Dextrose 50%) 50 ml STAT PRN IV Hypoglycemia 11/07/17 12:30 12/07/17 12:29 Docusate Sodium (Colace) 100 mg THREE TIMES A DAY ORAL 11/07/17 18:00 12/07/17 17:59 11/11/17 13:56 Epoetin Mau (Procrit (for ESRD on dialysis)) 10,000 units SUN-SUN-SUN SUBQ 11/07/17 21:00 12/07/17 20:59 11/09/17 21:38 Gabapentin (Neurontin) 300 mg Q8HR ORAL 11/07/17 14:00 12/07/17 13:59 11/12/17 05:10 Heparin Sodium (Porcine) (Heparin 5000 units/ml) 5,000 units EVERY 12 HOURS SUBQ 11/07/17 21:00 12/07/17 20:59 11/10/17 21:09 Hydralazine HCl (Apresoline) 25 mg Q4H PRN ORAL SBP > 160mmHg 11/07/17 16:30 12/07/17 16:29 11/11/17 20:43 Insulin Aspart (NovoLOG) BEFORE MEALS AND HS SUBQ 11/07/17 16:30 12/07/17 16:29 11/10/17 17:24 Lamotrigine (LaMICtal) 100 mg Q12HR ORAL 11/07/17 21:00 12/07/17 20:59 11/11/17 20:42 Levothyroxine Sodium (Synthroid) 25 mcg DAILY@0630 ORAL 11/09/17 06:30 12/09/17 06:29 11/12/17 05:09 Lisinopril (Zestril) 5 mg DAILY ORAL 11/12/17 09:00 12/12/17 08:59 Ondansetron HCl (Zofran) 4 mg Q6H PRN IVP Nausea & Vomiting 11/07/17 12:30 12/07/17 12:29 Pantoprazole (Protonix) 40 mg DAILY ORAL 11/08/17 09:00 12/08/17 08:59 11/11/17 08:20 Polyethylene Glycol (Miralax) 17 gm HSPRN PRN ORAL Constipation 11/07/17 12:30 12/07/17 12:29 11/11/17 11:12 Quetiapine Fumarate (SEROquel) 300 mg BEDTIME ORAL 11/07/17 21:00 12/07/17 20:59 11/11/17 20:43 Sevelamer Carbonate (Renvela) 2,400 mg THREE TIMES A DAY ORAL 11/08/17 18:00 12/08/17 17:59 11/11/17 08:21 Sitagliptin Phosphate (Januvia) 25 mg ACBREAKFAST ORAL 11/08/17 06:30 12/08/17 06:29 11/12/17 05:09 Zolpidem Tartrate (Ambien) 5 mg HSPRN PRN ORAL Insomnia 11/07/17 12:30 11/14/17 12:29 Item Value Date Time Bedside Blood Glucose 111 mg/dl 11/11/17 2049 Bedside Blood Glucose 108 mg/dl 11/11/17 1608 Bedside Blood Glucose 98 mg/dl 11/11/17 1116 Bedside Blood Glucose 111 mg/dl 11/11/17 0612 Rene Dawn MD Nov 12, 2017 06:40
[2017-11-12] MEDS: Aluminum Hydroxide Gel Susp 15ml ORAL SCH ×3 (08:08→17:33)
[2017-11-12] MEDS: Docusate 100mg cap ORAL SCH ×3 (08:09→18:04)
[2017-11-12] MEDS: Aspirin Baby 81mg ORAL SCH (08:10)
[2017-11-12] MEDS: Heparin 5000 units/ml inj SUBQ SCH ×2 (08:11→20:31)
[2017-11-12] MEDS: Carvedilol 12.5mg tab ORAL SCH ×2 (09:00→20:30)
--- NOTE | 2017-11-12 09:30 | Nephrology Progress Note ---
Assessment/Plan Problem List: (1) ESRD (end stage renal disease) on dialysis (2) Hypothyroidism (3) Hypercholesteremia (4) Diabetes mellitus, type II (5) Anemia in chronic renal disease (6) Hypertensive kidney disease Assessment --Bilateral leg numbness --diabetic neuropathy --L5-S1 disc protrusion - hypothyroidism - End-stage renal disease, on hemodialysis. - Anemia of chronic kidney disease. - HTN / Pulmonary HTN - Diabetes type 2. - Morbid obesity. - H/O Colon Cancer - H/O Hep C - H/O Depression and Bipolar disease - Psych disease uncoaporative Plan refused lab today Adjust BP , Niorvasc and lisinopril added BS meds- Anemia yao HD next 11/12 per consultants, per psych start DC planning Subjective ROS Limited/Unobtainable: No Objective Objective Last 24 Hour Vital Signs Date Time Temp Pulse Resp B/P (MAP) Pulse Ox O2 Delivery O2 Flow Rate FiO2 11/12/17 08:21 74 18 Room Air 21 11/12/17 04:00 98.0 20 158/60 (92) 58 98.0 11/12/17 00:00 97.6 18 182/65 (104) 63 97.6 11/11/17 21:00 Room Air 11/11/17 20:43 200/75 11/11/17 20:43 71 200/75 11/11/17 20:00 98.0 20 200/75 (116) 66 98.0 11/11/17 19:32 71 18 Room Air 21 11/11/17 16:10 97.9 11/11/17 15:57 97.9 18 126/73 (90) 95 97.9 11/11/17 15:04 168/109 11/11/17 14:56 168/109 (128) 11/11/17 11:48 97.3 12 207/74 (118) 93 97.3 11/11/17 10:52 202/80 11/11/17 10:52 68 202/80 Intake and Output 11/11/17 11/12/17 18:59 06:59 Intake Total 1000 ml Balance 1000 ml Other 1000 ml # Voids 4 1 Laboratory Tests 11/11/17 10:15: White Blood Count 8.1, Red Blood Count 2.83L, Hemoglobin 8.8L, Hematocrit 27.4L , Mean Corpuscular Volume 97, Mean Corpuscular Hemoglobin 31.1H, Mean Corpuscular Hemoglobin Concent 32.0, Red Cell Distribution Width 14.1, Platelet Count 188, Mean Platelet Volume 7.1, Neutrophils (%) (Auto) 68.6, Lymphocytes (% ) (Auto) 17.3L, Monocytes (%) (Auto) 9.4, Eosinophils (%) (Auto) 3.4H, Basophils (%) (Auto) 1.3, Sodium Level 137, Potassium Level 4.6, Chloride Level 99, Carbon Dioxide Level 26, Anion Gap 12, Blood Urea Nitrogen 78H, Creatinine 9.5H, Estimat Glomerular Filtration Rate 4.3, Glucose Level 99, Calcium Level 9.0, Phosphorus Level 7.3H, Total Bilirubin 0.4, Aspartate Amino Transf (AST/ SGOT) 12L, Alanine Aminotransferase (ALT/SGPT) 18, Alkaline Phosphatase 117H, Pro-B-Type Natriuretic Peptide 40022M, Total Protein 6.9, Albumin 2.7L, Globulin 4.2, Albumin/Globulin Ratio 0.6L Height (Feet): 5 Height (Inches): 5.00 Weight (Pounds): 223 General Appearance: no apparent distress Objective no change Eamon Soils MD Nov 12, 2017 09:29
[2017-11-12] MEDS: Lisinopril 2.5mg tab ORAL SCH (10:39)
--- NOTE | 2017-11-12 12:29 | Podiatric Progress Note ---
Assessment/Plan Patient Cris Zuluaga is a 56 year old female who was admitted on Nov 07, 2017 at 10:26 with Assessment/Plan A/ 1) Chronic DM foot ulcers right hallux and left 4th toe 2) DM neuropathy 3) ESRD 4) CHF 5) Obesity P/ 1) Cont wound care as ordered. No surgical intervention at this time 2) Pending: Arterial ultz BLE, X-rays bilateral feet 3) Cont post op shoes and wheechair 4) Will follow Subjective Allergies: Coded Allergies: No Known Allergies (Verified , 08/23/06) Subjective Patient is comfortable Objective Exam Last 24 Hour Vital Signs Date Time Temp Pulse Resp B/P (MAP) Pulse Ox O2 Delivery O2 Flow Rate FiO2 11/12/17 10:39 167/70 11/12/17 10:39 74 167/70 11/12/17 09:00 74 167/70 11/12/17 09:00 Room Air 11/12/17 08:21 74 18 Room Air 21 11/12/17 08:00 97.9 18 167/70 (102) 61 97.9 11/12/17 04:00 98.0 20 158/60 (92) 58 98.0 11/12/17 00:00 97.6 18 182/65 (104) 63 97.6 11/11/17 21:00 Room Air 11/11/17 20:43 200/75 11/11/17 20:43 71 200/75 11/11/17 20:00 98.0 20 200/75 (116) 66 98.0 11/11/17 19:32 71 18 Room Air 21 11/11/17 16:10 97.9 11/11/17 15:57 97.9 18 126/73 (90) 95 97.9 11/11/17 15:04 168/109 11/11/17 14:56 168/109 (128) Microbiology Date/Time Source Procedure Growth Status 11/07/17 13:30 Nasal Nares MRSA Culture - Final NO METHICILLIN RESISTANT STAPH AUREUS... Complete 11/07/17 13:30 Rectal Mucosa VRE Culture - Final NO VANCOMYCIN RESISTANT ENTEROCOCCUS ... Complete [place] DPM Nov 12, 2017 12:29
--- NOTE | 2017-11-12 12:40 | Pulmonology Progress Note ---
Assessment/Plan Problems: (1) Pulmonary edema (2) ESRD (end stage renal disease) on dialysis (3) Seizure disorder (4) Non-compliance with renal dialysis (5) Anemia in chronic renal disease (6) Hypothyroidism (7) HTN (hypertension) (8) Diabetes mellitus, type II Assessment/Plan doing better symptomatic treatment pt/ot sliding scale monitor BP resume synthyroid dvt prophylaxis. awaiting Podiatry evaluation dc planning to snif Subjective ROS Limited/Unobtainable: No Constitutional: Reports: no symptoms HEENT: Repors: no symptoms Respiratory: Reports: no symptoms Allergies: Coded Allergies: No Known Allergies (Verified , 08/23/06) Objective Last 24 Hour Vital Signs Date Time Temp Pulse Resp B/P (MAP) Pulse Ox O2 Delivery O2 Flow Rate FiO2 11/12/17 10:39 167/70 11/12/17 10:39 74 167/70 11/12/17 09:00 74 167/70 11/12/17 09:00 Room Air 11/12/17 08:21 74 18 Room Air 21 11/12/17 08:00 97.9 18 167/70 (102) 61 97.9 11/12/17 04:00 98.0 20 158/60 (92) 58 98.0 11/12/17 00:00 97.6 18 182/65 (104) 63 97.6 11/11/17 21:00 Room Air 11/11/17 20:43 200/75 11/11/17 20:43 71 200/75 11/11/17 20:00 98.0 20 200/75 (116) 66 98.0 11/11/17 19:32 71 18 Room Air 21 11/11/17 16:10 97.9 11/11/17 15:57 97.9 18 126/73 (90) 95 97.9 11/11/17 15:04 168/109 11/11/17 14:56 168/109 (128) Intake and Output 11/11/17 11/12/17 19:00 07:00 Intake Total 1000 ml Balance 1000 ml Other 1000 ml # Voids 4 1 General Appearance: WD/WN HEENT: normocephalic Respiratory/Chest: chest wall non-tender Breasts: no masses Cardiovascular: normal peripheral pulses Abdomen: normal bowel sounds Genitourinary: normal external genitalia Skin: no rash 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 Current Medications Medications (Trade) Dose Ordered Sig/Gabriele Route PRN Reason Start Time Stop Time Status Last Admin Dose Admin Acetaminophen (Tylenol) 650 mg Q4H PRN ORAL fever (temp>100.5F) 11/07/17 12:30 12/07/17 12:29 Acetaminophen/ Hydrocodone Bitart ([place] 5/325) 1 tab Q6H PRN ORAL For Pain 11/10/17 13:00 11/17/17 12:59 11/11/17 16:10 Aluminum Hydroxide (Amphojel) 1,920 mg TIPC ORAL 11/08/17 18:00 12/08/17 17:59 Amlodipine Besylate (Norvasc) 5 mg DAILY ORAL 11/12/17 09:00 12/12/17 08:59 11/12/17 10:39 Aspirin (ASA) 81 mg DAILY ORAL 11/08/17 09:00 12/08/17 08:59 11/12/17 08:10 Atorvastatin Calcium (Lipitor) 10 mg BEDTIME ORAL 11/10/17 21:00 12/10/17 20:59 11/11/17 20:43 Carvedilol (Coreg) 3.125 mg EVERY 12 HOURS ORAL 11/07/17 21:00 12/07/17 20:59 11/11/17 20:43 Ciprofloxacin (Ciloxan Opth Soln) 2 drop EVERY 6 HOURS RIGHT EYE 11/10/17 12:00 11/17/17 11:59 11/12/17 05:09 Clonazepam (KlonoPIN) 1 mg Q6H PRN ORAL ANXIETY 11/07/17 12:30 11/14/17 12:29 11/07/17 13:12 Dextrose (Dextrose 50%) 25 ml STAT PRN IV Hypoglycemia 11/07/17 12:30 12/07/17 12:29 Dextrose (Dextrose 50%) 50 ml STAT PRN IV Hypoglycemia 11/07/17 12:30 12/07/17 12:29 Docusate Sodium (Colace) 100 mg THREE TIMES A DAY ORAL 11/07/17 18:00 12/07/17 17:59 11/12/17 08:09 Epoetin Mau (Procrit (for ESRD on dialysis)) 10,000 units SUN-SUN-SUN SUBQ 11/07/17 21:00 12/07/17 20:59 11/09/17 21:38 Gabapentin (Neurontin) 300 mg Q8HR ORAL 11/07/17 14:00 12/07/17 13:59 11/12/17 05:10 Heparin Sodium (Porcine) (Heparin 5000 units/ml) 5,000 units EVERY 12 HOURS SUBQ 11/07/17 21:00 12/07/17 20:59 11/12/17 08:11 Hydralazine HCl (Apresoline) 25 mg Q4H PRN ORAL SBP > 160mmHg 11/07/17 16:30 12/07/17 16:29 11/11/17 20:43 Insulin Aspart (NovoLOG) BEFORE MEALS AND HS SUBQ 11/07/17 16:30 12/07/17 16:29 11/10/17 17:24 Lamotrigine (LaMICtal) 100 mg Q12HR ORAL 11/07/17 21:00 12/07/17 20:59 11/12/17 08:09 Levothyroxine Sodium (Synthroid) 25 mcg DAILY@0630 ORAL 11/09/17 06:30 12/09/17 06:29 11/12/17 05:09 Lisinopril (Zestril) 5 mg DAILY ORAL 11/12/17 09:00 12/12/17 08:59 11/12/17 10:39 Ondansetron HCl (Zofran) 4 mg Q6H PRN IVP Nausea & Vomiting 11/07/17 12:30 12/07/17 12:29 Pantoprazole (Protonix) 40 mg DAILY ORAL 11/08/17 09:00 12/08/17 08:59 11/12/17 08:09 Polyethylene Glycol (Miralax) 17 gm HSPRN PRN ORAL Constipation 11/07/17 12:30 12/07/17 12:29 11/11/17 11:12 Quetiapine Fumarate (SEROquel) 300 mg BEDTIME ORAL 11/07/17 21:00 12/07/17 20:59 11/11/17 20:43 Sevelamer Carbonate (Renvela) 2,400 mg THREE TIMES A DAY ORAL 11/08/17 18:00 12/08/17 17:59 11/12/17 08:09 Sitagliptin Phosphate (Januvia) 25 mg ACBREAKFAST ORAL 11/08/17 06:30 12/08/17 06:29 11/12/17 05:09 Zolpidem Tartrate (Ambien) 5 mg HSPRN PRN ORAL Insomnia 11/07/17 12:30 11/14/17 12:29 Demetri Vallecillo MD Nov 12, 2017 12:40
--- NOTE | 2017-11-12 16:36 | Diagnostic Imaging Report ---
Indication: Pain, ulcer Technique: XRAY Foot Complete L Comparison: None Findings: There is no evidence of acute fracture or dislocation. There is soft tissue swelling of the fourth digit with a questionable ulceration. Correlation physical exam recommended. No definite radiographic evidence to suggest osteomyelitis of the fourth phalanx. More sensitive evaluation with MRI can be obtained as clinically indicated. There are dorsal and plantar calcaneal enthesophytes. There are atherosclerotic vascular calcifications. No radiopaque foreign body seen. IMPRESSION: * Soft tissue swelling and ulceration of the fourth digit. Correlate with physical exam to assess for ulcer. No definite radiographic evidence of chest osteomyelitis of the fourth phalanx. More sensitive evaluation with MRI can be obtained as clinically indicated. * No acute fracture or dislocation. * Atherosclerotic disease
--- NOTE | 2017-11-12 16:36 | Diagnostic Imaging Report ---
Indication: Pain Technique: XRAY Foot Complete R Comparison: None Findings: There is chronic appearing deformity of the distal neck and head of the fifth metatarsal. There is no definite evidence of acute fracture. Joint spaces appear maintained. There is soft tissue ulceration involving the tip of the first toe. There is no definite focal osteopenia, bone erosion or periostitis in the underlying first distal phalanx to suggest osteomyelitis. There are dorsal and plantar calcaneal enthesophytes. There are atherosclerotic vascular calcifications. No radiopaque foreign body identified. IMPRESSION: * No evidence of acute fracture. * Soft tissue ulcer of the first toe. No definite radiographic evidence to suggest osteomyelitis in the underlying first distal phalanx. More sensitive evaluation with MRI can be obtained as clinically indicated. * Chronic appearing deformity of the fifth metatarsal * Atherosclerotic disease.
[2017-11-12] MEDS: HydrALAZINE 25mg tab ORAL PRN (16:45)
--- NOTE | 2017-11-12 17:05 | Internal Med Progress Note ---
Subjective Physician Name Sea Lundberg Attending Physician Sea Lundberg MD Current Medications Medications (Trade) Dose Ordered Sig/Gabriele Route PRN Reason Start Time Stop Time Status Last Admin Dose Admin Acetaminophen (Tylenol) 650 mg Q4H PRN ORAL fever (temp>100.5F) 11/07/17 12:30 12/07/17 12:29 Acetaminophen/ Hydrocodone Bitart ([place] 5/325) 1 tab Q6H PRN ORAL For Pain 11/10/17 13:00 11/17/17 12:59 11/11/17 16:10 Aluminum Hydroxide (Amphojel) 1,920 mg TIPC ORAL 11/08/17 18:00 12/08/17 17:59 Amlodipine Besylate (Norvasc) 5 mg DAILY ORAL 11/12/17 09:00 12/12/17 08:59 11/12/17 10:39 Aspirin (ASA) 81 mg DAILY ORAL 11/08/17 09:00 12/08/17 08:59 11/12/17 08:10 Atorvastatin Calcium (Lipitor) 10 mg BEDTIME ORAL 11/10/17 21:00 12/10/17 20:59 11/11/17 20:43 Carvedilol (Coreg) 3.125 mg EVERY 12 HOURS ORAL 11/07/17 21:00 12/07/17 20:59 11/11/17 20:43 Ciprofloxacin (Ciloxan Opth Soln) 2 drop EVERY 6 HOURS RIGHT EYE 11/10/17 12:00 11/17/17 11:59 11/12/17 13:32 Clonazepam (KlonoPIN) 1 mg Q6H PRN ORAL ANXIETY 11/07/17 12:30 11/14/17 12:29 11/07/17 13:12 Dextrose (Dextrose 50%) 25 ml STAT PRN IV Hypoglycemia 11/07/17 12:30 12/07/17 12:29 Dextrose (Dextrose 50%) 50 ml STAT PRN IV Hypoglycemia 11/07/17 12:30 12/07/17 12:29 Docusate Sodium (Colace) 100 mg THREE TIMES A DAY ORAL 11/07/17 18:00 12/07/17 17:59 11/12/17 13:32 Epoetin Mau (Procrit (for ESRD on dialysis)) 10,000 units SUN-SUN-FRI SUBQ 11/07/17 21:00 12/07/17 20:59 11/09/17 21:38 Gabapentin (Neurontin) 300 mg Q8HR ORAL 11/07/17 14:00 12/07/17 13:59 11/12/17 13:32 Heparin Sodium (Porcine) (Heparin 5000 units/ml) 5,000 units EVERY 12 HOURS SUBQ 11/07/17 21:00 12/07/17 20:59 11/12/17 08:11 Hydralazine HCl (Apresoline) 25 mg Q4H PRN ORAL SBP > 160mmHg 11/07/17 16:30 12/07/17 16:29 11/12/17 16:45 Insulin Aspart (NovoLOG) BEFORE MEALS AND HS SUBQ 11/07/17 16:30 12/07/17 16:29 11/12/17 13:40 Lamotrigine (LaMICtal) 100 mg Q12HR ORAL 11/07/17 21:00 12/07/17 20:59 11/12/17 08:09 Levothyroxine Sodium (Synthroid) 25 mcg DAILY@0630 ORAL 11/09/17 06:30 12/09/17 06:29 11/12/17 05:09 Lisinopril (Zestril) 5 mg DAILY ORAL 11/12/17 09:00 12/12/17 08:59 11/12/17 10:39 Ondansetron HCl (Zofran) 4 mg Q6H PRN IVP Nausea & Vomiting 11/07/17 12:30 12/07/17 12:29 Pantoprazole (Protonix) 40 mg DAILY ORAL 11/08/17 09:00 12/08/17 08:59 11/12/17 08:09 Polyethylene Glycol (Miralax) 17 gm HSPRN PRN ORAL Constipation 11/07/17 12:30 12/07/17 12:29 11/11/17 11:12 Quetiapine Fumarate (SEROquel) 300 mg BEDTIME ORAL 11/07/17 21:00 12/07/17 20:59 11/11/17 20:43 Sevelamer Carbonate (Renvela) 2,400 mg THREE TIMES A DAY ORAL 11/08/17 18:00 12/08/17 17:59 11/12/17 13:32 Sitagliptin Phosphate (Januvia) 25 mg ACBREAKFAST ORAL 11/08/17 06:30 12/08/17 06:29 11/12/17 05:09 Zolpidem Tartrate (Ambien) 5 mg HSPRN PRN ORAL Insomnia 11/07/17 12:30 11/14/17 12:29 Allergies: Coded Allergies: No Known Allergies (Verified , 08/23/06) Subjective awake, alert, responsive, NAD,getting dialysis at bedside now Objective Last Vital Signs Date Time Temp Pulse Resp B/P (MAP) Pulse Ox O2 Delivery O2 Flow Rate FiO2 11/12/17 16:45 191/98 11/12/17 12:00 98.0 17 62 98.0 11/12/17 10:39 74 11/12/17 09:00 Room Air 11/12/17 08:21 21 Intake and Output 11/11/17 11/12/17 19:00 07:00 Intake Total 1000 ml Balance 1000 ml Other 1000 ml # Voids 4 1 Objective General: No acute distress, awake and alert HEENT: NCAT, sclera anicteric, PERRL, EOMI, right eye erythema. Neck: Supple, no significant jugular venous distention, Lungs: Fair inspiratory effort, clear to auscultation bilaterally, no Wheeze or Rales. Heart: Regular rate and rhythm, normal S1/S2, no murmurs Abdomen: soft, nontender, nondistended. Normoactive bowel sounds, Obesity, Extremities: No Cyanosis , clubbing +1 LE's edema. RUE AVF. Neuro: A&O x 3, Able to move all extremities Skin: warm, no rashes Psych: anxious mood and affect Assessment/Plan Assessment/Plan 1. Congestive heart failure. 2. Diarrhea. 3. Generalized weakness. 4. Hypertension. 5. End-stage renal disease. 6. Type 2 diabetes. 7. Anemia of chronic renal disease. 8. Bipolar depression. 9. History of colon cancer. 10. Anemia of chronic renal disease 11. Hypothyroidism 12. Right Eye conjunctivitis. Plan: Dialysis now Code status: Full code DC planning for SNF placement. Cipro ophthalmic Sea Lundberg MD Nov 12, 2017 17:05
[2017-11-12] MEDS: Norco 5mg/325mg tab ORAL PRN (18:04)
[2017-11-12] MEDS: Epogen (for ESRD on dialysis) SUBQ SCH (20:30)
--- NOTE | 2017-11-12 21:15 | Consultation ---
DATE OF CONSULTATION: 11/11/2017 CONSULTING PHYSICIAN: [place] D.P.M. REQUESTING PHYSICIANS: 1. Sukhi Cotter M.D. 2. Sea Lundberg M.D. REASON FOR CONSULTATION: Diabetic foot ulcers, bilateral feet. HISTORY OF PRESENT ILLNESS: The patient is a 56-year-old female, who is admitted to [facility] on 11/07/2017 for complications of end-stage renal disease. The patient states that she has had the wounds on bilateral feet for several months. She has been caring for them with the help of a nurse without any improvement. She is concerned about the condition of her feet and possible amputation. Currently, she denies any fevers, chills, nausea, vomiting, and any pain in the feet. She does note that she has some tingling or funny sensation that she calls on going up her leg bilaterally. She is ambulatory in a wheelchair and was just recently dispensed postoperative shoes. PAST MEDICAL HISTORY: Significant for end-stage renal disease, on dialysis, hypertension, congestive heart failure, type 2 diabetes mellitus, anemia of chronic renal disease, bipolar depression, and history of colon cancer. PAST SURGICAL HISTORY: Significant for AV graft placement, which failed. As now, new right AV fistula on the right arm. She had a PermCath placed, which has now been discontinued. MEDICATIONS: Include [place], aspirin, heparin for DVT prophylaxis, and Neurontin 300 mg q.8. ALLERGIES: She has no known drug allergies. FAMILY HISTORY: Noncontributory. SOCIAL HISTORY: Noncontributory. REVIEW OF SYSTEMS: HEENT: The patient denies any headaches, blurred vision, or ringing in the ears. CARDIOVASCULAR: The patient denies any chest pain or shortness of breath. GENITOURINARY: The patient denies any urgency, frequency, burning upon urination, or hematuria. GASTROINTESTINAL: The patient denies any constipation, diarrhea, or blood in stool. PHYSICAL EXAMINATION: VITAL SIGNS: Temperature is 98, pulse is 68, respirations is 18, blood pressure is 202/80, and saturating 95% on room air. LOWER EXTREMITIES: Vascular: Nonpalpable pedal pulses noted bilaterally. Feet are equally warm. No edema or cyanosis noted. DERMATOLOGICAL: Full-thickness ulcerations noted on the distal aspect of the right hallux. Slough is noted on the wound base. No bone or tendon is exposed. No signs of acute infection are noted. There is a necrotic eschar noted on the distal aspect of the left fourth toe. No signs of acute infection are noted there. MUSCULOSKELETAL: No gross deformities are noted. She has 4/5 muscle strength in the anterior, lateral, and posterior muscle groups of bilateral lower extremities. NEUROLOGICAL: Protective threshold is diminished. Achilles deep tendon reflex are 2+ bilateral. No spasticity noted. IMAGING: No lower extremity imaging is noted. LABORATORY DATA: White blood cell count is 8.5, hemoglobin and hematocrit is 8.2 and 25.9, and platelet count is 173,000. Potassium 4.3, BUN is 50, and creatinine is 8.0. Hemoglobin A1c is 4.9. Glucose is 97. C-reactive protein is 2.0. Albumin is 2.5. INR is 1.1. ASSESSMENT: 1. Chronic diabetic foot ulcers right hallux and left fourth toe. 2. Diabetes with neuropathy. 3. End-stage renal disease. 4. Congestive heart failure. 5. Obesity. PLAN: 1. Continue wound care as ordered. No surgical intervention is indicated at this time. 2. We will order arterial ultrasound of bilateral lower extremities and x-rays of bilateral feet to evaluate blood circulation and bony involvement due to the chronic wounds. 3. Continue the postop shoes and wheelchair. 4. We will follow. Thank you for the courtesy of this consultation. [place] D.P.M. DR: ROBERT JOB#: [id number] CC:
[2017-11-13] VITALS: BP 136/88
[2017-11-13 04:00] VITALS: BP 143/72
[2017-11-13] MEDS: Levothyroxine 25mcg tab ORAL SCH (06:19)
[2017-11-13] MEDS: Ciprofloxacin Opth Soln 2.5ml RIGHT EYE SCH ×2 (06:19→11:51)
[2017-11-13] MEDS: sitaGLIPtin 25mg tab ORAL SCH (06:19)
[2017-11-13] MEDS: NovoLOG Insulin Flexpen SUBQ SCH ×3 (06:20→16:30)
--- NOTE | 2017-11-13 06:23 | General Progress Note ---
Assessment/Plan Problem List: (1) Hypothyroidism ICD Codes: E03.9 - Hypothyroidism, unspecified SNOMED: 49904759 (2) Bipolar depression ICD Codes: F31.30 - Bipolar disorder, current episode depressed, mild or moderate severity, unspecified SNOMED: 67242641 (3) ESRD (end stage renal disease) on dialysis ICD Codes: N18.6 - End stage renal disease; Z99.2 - Dependence on renal dialysis SNOMED: 534557083 (4) Diabetes mellitus, type II ICD Codes: E11.9 - Type 2 diabetes mellitus without complications SNOMED: 31198082 Assessment/Plan continue Synthroid 25 mcg daily - TSH is at target continue Januvia renal dose of 25 mg + SSI Subjective Allergies: Coded Allergies: No Known Allergies (Verified , 08/23/06) All Systems: reviewed and negative except above Subjective events noted Objective Last 24 Hour Vital Signs Date Time Temp Pulse Resp B/P (MAP) Pulse Ox O2 Delivery O2 Flow Rate FiO2 11/13/17 04:00 97.3 62 20 143/72 (95) 93 97.3 11/13/17 00:00 97.5 64 20 136/88 (104) 92 97.5 11/12/17 21:00 Room Air 11/12/17 20:30 71 138/81 11/12/17 20:00 98.9 71 19 138/81 (100) 94 98.9 11/12/17 18:34 98.9 11/12/17 18:14 Room Air 11/12/17 18:06 Room Air 21 11/12/17 18:04 98.9 11/12/17 16:45 191/98 11/12/17 16:45 191/98 (129) 11/12/17 16:00 98.9 17 118/78 (91) 66 98.9 11/12/17 12:00 98.0 17 204/80 (121) 62 98.0 11/12/17 10:39 167/70 11/12/17 10:39 74 167/70 11/12/17 09:00 74 167/70 11/12/17 09:00 Room Air 11/12/17 08:21 74 18 Room Air 21 11/12/17 08:00 97.9 18 167/70 (102) 61 97.9 Intake and Output 11/12/17 11/13/17 19:00 07:00 Intake Total 1200 ml Output Total 1800 ml 450 ml Balance -600 ml -450 ml Other 1200 ml Output Urine Total 450 ml Hemodialysis UF 1800 ml Height (Feet): 5 Height (Inches): 5.00 Weight (Pounds): 223 General Appearance: no apparent distress Neck: normal alignment Cardiovascular: normal rate Respiratory/Chest: lungs clear Abdomen: non tender Objective Current Medications Medications (Trade) Dose Ordered Sig/Gabriele Route PRN Reason Start Time Stop Time Status Last Admin Dose Admin Acetaminophen (Tylenol) 650 mg Q4H PRN ORAL fever (temp>100.5F) 11/07/17 12:30 12/07/17 12:29 Acetaminophen/ Hydrocodone Bitart ([place] 5/325) 1 tab Q6H PRN ORAL For Pain 11/10/17 13:00 11/17/17 12:59 11/12/17 18:04 Aluminum Hydroxide (Amphojel) 1,920 mg TIPC ORAL 11/08/17 18:00 12/08/17 17:59 Amlodipine Besylate (Norvasc) 5 mg DAILY ORAL 11/12/17 09:00 12/12/17 08:59 11/12/17 10:39 Aspirin (ASA) 81 mg DAILY ORAL 11/08/17 09:00 12/08/17 08:59 11/12/17 08:10 Atorvastatin Calcium (Lipitor) 10 mg BEDTIME ORAL 11/10/17 21:00 12/10/17 20:59 11/12/17 20:29 Carvedilol (Coreg) 3.125 mg EVERY 12 HOURS ORAL 11/07/17 21:00 12/07/17 20:59 11/12/17 20:30 Ciprofloxacin (Ciloxan Opth Soln) 2 drop EVERY 6 HOURS RIGHT EYE 11/10/17 12:00 11/17/17 11:59 11/12/17 23:48 Clonazepam (KlonoPIN) 1 mg Q6H PRN ORAL ANXIETY 11/07/17 12:30 11/14/17 12:29 11/07/17 13:12 Dextrose (Dextrose 50%) 25 ml STAT PRN IV Hypoglycemia 11/07/17 12:30 12/07/17 12:29 Dextrose (Dextrose 50%) 50 ml STAT PRN IV Hypoglycemia 11/07/17 12:30 12/07/17 12:29 Docusate Sodium (Colace) 100 mg THREE TIMES A DAY ORAL 11/07/17 18:00 12/07/17 17:59 11/12/17 18:04 Epoetin Mau (Procrit (for ESRD on dialysis)) 10,000 units SUN-WED-SUN SUBQ 11/07/17 21:00 12/07/17 20:59 11/12/17 20:30 Gabapentin (Neurontin) 300 mg Q8HR ORAL 11/07/17 14:00 12/07/17 13:59 11/12/17 20:34 Heparin Sodium (Porcine) (Heparin 5000 units/ml) 5,000 units EVERY 12 HOURS SUBQ 11/07/17 21:00 12/07/17 20:59 11/12/17 20:31 Hydralazine HCl (Apresoline) 25 mg Q4H PRN ORAL SBP > 160mmHg 11/07/17 16:30 12/07/17 16:29 11/12/17 16:45 Insulin Aspart (NovoLOG) BEFORE MEALS AND HS SUBQ 11/07/17 16:30 12/07/17 16:29 11/12/17 13:40 Lamotrigine (LaMICtal) 100 mg Q12HR ORAL 11/07/17 21:00 12/07/17 20:59 11/12/17 20:29 Levothyroxine Sodium (Synthroid) 25 mcg DAILY@0630 ORAL 11/09/17 06:30 12/09/17 06:29 11/12/17 05:09 Lisinopril (Zestril) 5 mg DAILY ORAL 11/12/17 09:00 12/12/17 08:59 11/12/17 10:39 Ondansetron HCl (Zofran) 4 mg Q6H PRN IVP Nausea & Vomiting 11/07/17 12:30 12/07/17 12:29 Pantoprazole (Protonix) 40 mg DAILY ORAL 11/08/17 09:00 12/08/17 08:59 11/12/17 08:09 Polyethylene Glycol (Miralax) 17 gm HSPRN PRN ORAL Constipation 11/07/17 12:30 12/07/17 12:29 11/11/17 11:12 Quetiapine Fumarate (SEROquel) 300 mg BEDTIME ORAL 11/07/17 21:00 12/07/17 20:59 11/12/17 20:29 Sevelamer Carbonate (Renvela) 2,400 mg THREE TIMES A DAY ORAL 11/08/17 18:00 12/08/17 17:59 11/12/17 18:04 Sitagliptin Phosphate (Januvia) 25 mg ACBREAKFAST ORAL 11/08/17 06:30 12/08/17 06:29 11/12/17 05:09 Zolpidem Tartrate (Ambien) 5 mg HSPRN PRN ORAL Insomnia 11/07/17 12:30 11/14/17 12:29 Item Value Date Time Bedside Blood Glucose 109 mg/dl 11/12/17 2100 Bedside Blood Glucose 97 mg/dl 11/12/17 1630 Bedside Blood Glucose 200 mg/dl H 11/12/17 1340 Bedside Blood Glucose 86 mg/dl 11/12/17 0651 Rene Dawn MD Nov 13, 2017 06:23
[2017-11-13] MEDS: Norco 5mg/325mg tab ORAL PRN ×2 (06:55→12:37)
--- NOTE | 2017-11-13 07:40 | Podiatric Progress Note ---
Assessment/Plan Patient Cris Zuluaga is a 56 year old female who was admitted on Nov 07, 2017 at 10:26 with Assessment/Plan A/ 1) Chronic DM foot ulcers right hallux and left 4th toe 2) DM neuropathy 3) ESRD 4) CHF 5) Obesity P/ 1) Cont wound care as ordered for right hallux. Change left 4th toe to betadine daily. No surgical intervention at this time 2) Pending: Arterial ultz BLE - patient refused. Advised patient of necessity of study due to findings of vascular calcifications on x-ray. She states she will allow it. 3) X-rays bilateral feet - no OM, +vasc calcifications. MRI [facility] noted no OM in August. CRP mildly elevated, will order ESR 4) Cont post op shoes and wheechair 5) Will follow Subjective Allergies: Coded Allergies: No Known Allergies (Verified , 08/23/06) Subjective Patient comfortable. Objective Exam Last 24 Hour Vital Signs Date Time Temp Pulse Resp B/P (MAP) Pulse Ox O2 Delivery O2 Flow Rate FiO2 11/13/17 04:00 97.3 62 20 143/72 (95) 93 97.3 11/13/17 00:00 97.5 64 20 136/88 (104) 92 97.5 11/12/17 21:00 Room Air 11/12/17 20:30 71 138/81 11/12/17 20:00 98.9 71 19 138/81 (100) 94 98.9 11/12/17 18:34 98.9 11/12/17 18:14 Room Air 11/12/17 18:06 Room Air 21 11/12/17 18:04 98.9 11/12/17 16:45 191/98 11/12/17 16:45 191/98 (129) 11/12/17 16:00 98.9 17 118/78 (91) 66 98.9 11/12/17 12:00 98.0 17 204/80 (121) 62 98.0 11/12/17 10:39 167/70 11/12/17 10:39 74 167/70 11/12/17 09:00 74 167/70 11/12/17 09:00 Room Air 11/12/17 08:21 74 18 Room Air 21 11/12/17 08:00 97.9 18 167/70 (102) 61 97.9 Microbiology Date/Time Source Procedure Growth Status 11/07/17 13:30 Nasal Nares MRSA Culture - Final NO METHICILLIN RESISTANT STAPH AUREUS... Complete 11/07/17 13:30 Rectal Mucosa VRE Culture - Final NO VANCOMYCIN RESISTANT ENTEROCOCCUS ... Complete Vascular Vascular Narrative MRI forefoot RIGHT WO CONTRAST 08/21/2017 2:45 PM CLINICAL INDICATION: Right toe pain and redness. COMPARISON: Right foot radiographs 08/19/2017 TECHNICAL FACTORS: Short axis TI and inversion recovery and sagittal T1-weighted images before foot were obtained. The patient was unable to tolerate additional imaging. FINDINGS: There is soft tissue irregularity at the tuft of the first toe. No underlying fluid collection is identified. Bone marrow signal is normal and there is no evidence of osteomyelitis. There is mild degenerative change of first MTP joint. The remainder of the joint spaces are normal. Flexor and extensor tendons are normal. Dorsal subcutaneous edema is present. Soft tissue irregularity distal first toe. No underlying osteomyelitis. Reviewed and Interpreted by: Guille Lira M.D. 08/21/2017 5:15 PM Dermatological Dermatological Narrative exam unchanged from 11/11/17 [place] DPM Nov 13, 2017 07:40
[2017-11-13 08:00] VITALS: BP 143/73
[2017-11-13] MEDS: Aluminum Hydroxide Gel Susp 15ml ORAL SCH ×3 (09:22→14:16)
[2017-11-13] MEDS: Aspirin Baby 81mg ORAL SCH (09:23)
[2017-11-13] MEDS: Lisinopril 2.5mg tab ORAL SCH (09:23)
[2017-11-13] MEDS: Docusate 100mg cap ORAL SCH ×2 (09:23→13:05)
[2017-11-13] MEDS: Carvedilol 12.5mg tab ORAL SCH (09:24)
[2017-11-13] MEDS: Heparin 5000 units/ml inj SUBQ SCH (09:25)
--- NOTE | 2017-11-13 11:37 | Nephrology Progress Note ---
Assessment/Plan Problem List: (1) ESRD (end stage renal disease) on dialysis (2) Hypothyroidism (3) Hypercholesteremia (4) Diabetes mellitus, type II (5) Anemia in chronic renal disease (6) Hypertensive kidney disease Assessment --Bilateral leg numbness --diabetic neuropathy --L5-S1 disc protrusion - hypothyroidism - End-stage renal disease, on hemodialysis. - Anemia of chronic kidney disease. - HTN / Pulmonary HTN - Diabetes type 2. - Morbid obesity. - H/O Colon Cancer - H/O Hep C - H/O Depression and Bipolar disease - Psych disease uncoaporative Plan refused DIALYSIS MORE THAN AN HOUR YESTERDAY ! Adjust BP , Niorvasc and lisinopril added BS meds- Anemia yao HD next 11/12 per consultants, per psych start DC planning Subjective ROS Limited/Unobtainable: No Objective Objective Last 24 Hour Vital Signs Date Time Temp Pulse Resp B/P (MAP) Pulse Ox O2 Delivery O2 Flow Rate FiO2 11/13/17 09:24 68 143/73 11/13/17 09:23 143/73 11/13/17 09:23 68 143/73 11/13/17 09:00 Room Air 11/13/17 08:00 97.3 68 20 143/73 (96) 93 97.3 11/13/17 07:25 64 18 Room Air 21 11/13/17 04:00 97.3 62 20 143/72 (95) 93 97.3 11/13/17 00:00 97.5 64 20 136/88 (104) 92 97.5 11/12/17 21:00 Room Air 11/12/17 20:30 71 138/81 11/12/17 20:00 98.9 71 19 138/81 (100) 94 98.9 11/12/17 18:34 98.9 11/12/17 18:14 Room Air 11/12/17 18:06 Room Air 21 11/12/17 18:04 98.9 11/12/17 16:45 191/98 11/12/17 16:45 191/98 (129) 11/12/17 16:00 98.9 17 118/78 (91) 66 98.9 11/12/17 12:00 98.0 17 204/80 (121) 62 98.0 Intake and Output 11/12/17 11/13/17 19:00 07:00 Intake Total 1200 ml Output Total 1800 ml 450 ml Balance -600 ml -450 ml Other 1200 ml Output Urine Total 450 ml Hemodialysis UF 1800 ml Laboratory Tests 11/13/17 08:25: Erythrocyte Sedimentation Rate 109H Height (Feet): 5 Height (Inches): 5.00 Weight (Pounds): 223 General Appearance: no apparent distress Objective no change Eamon Solis MD Nov 13, 2017 11:37
[2017-11-13 12:00] VITALS: BP 178/76
[2017-11-13] MEDS ORDERED: Albuterol/Ipratropium 3ml neb HHN PRN (13:00)
[2017-11-13] MEDS: HydrALAZINE 25mg tab ORAL PRN (13:05)
--- NOTE | 2017-11-13 14:19 | Pulmonology Progress Note ---
Assessment/Plan Problems: (1) Pulmonary edema (2) ESRD (end stage renal disease) on dialysis (3) Seizure disorder (4) Non-compliance with renal dialysis (5) Anemia in chronic renal disease (6) Hypothyroidism (7) HTN (hypertension) (8) Diabetes mellitus, type II Assessment/Plan no new complains doing better symptomatic treatment pt/ot sliding scale monitor BP resume synthyroid dvt prophylaxis. awaiting Podiatry evaluation dc planning to snif Subjective ROS Limited/Unobtainable: No Constitutional: Reports: no symptoms Respiratory: Reports: no symptoms Allergies: Coded Allergies: No Known Allergies (Verified , 08/23/06) Objective Last 24 Hour Vital Signs Date Time Temp Pulse Resp B/P (MAP) Pulse Ox O2 Delivery O2 Flow Rate FiO2 11/13/17 13:05 178/76 11/13/17 12:44 72 16 Room Air 21 11/13/17 12:35 64 16 97 Room Air 21 11/13/17 12:00 97.9 67 20 178/76 (110) 94 97.9 11/13/17 09:24 68 143/73 11/13/17 09:23 143/73 11/13/17 09:23 68 143/73 11/13/17 09:00 Room Air 11/13/17 08:00 97.3 68 20 143/73 (96) 93 97.3 11/13/17 07:25 64 18 Room Air 21 11/13/17 04:00 97.3 62 20 143/72 (95) 93 97.3 11/13/17 00:00 97.5 64 20 136/88 (104) 92 97.5 11/12/17 21:00 Room Air 11/12/17 20:30 71 138/81 11/12/17 20:00 98.9 71 19 138/81 (100) 94 98.9 11/12/17 18:34 98.9 11/12/17 18:14 Room Air 11/12/17 18:06 Room Air 21 11/12/17 18:04 98.9 11/12/17 16:45 191/98 11/12/17 16:45 191/98 (129) 11/12/17 16:00 98.9 17 118/78 (91) 66 98.9 Intake and Output 11/12/17 11/13/17 19:00 07:00 Intake Total 1200 ml Output Total 1800 ml 450 ml Balance -600 ml -450 ml Other 1200 ml Output Urine Total 450 ml Hemodialysis UF 1800 ml General Appearance: WD/WN HEENT: normocephalic, atraumatic Respiratory/Chest: chest wall non-tender, lungs clear Breasts: no masses Cardiovascular: normal peripheral pulses, no JVD Genitourinary: normal external genitalia Skin: no rash Neurologic/Psychiatric: no motor/sensory deficits Laboratory Tests 11/13/17 08:25: Erythrocyte Sedimentation Rate 109H Current Medications Medications (Trade) Dose Ordered Sig/Gabriele Route PRN Reason Start Time Stop Time Status Last Admin Dose Admin Acetaminophen (Tylenol) 650 mg Q4H PRN ORAL fever (temp>100.5F) 11/07/17 12:30 12/07/17 12:29 Acetaminophen/ Hydrocodone Bitart ([place] 5/325) 1 tab Q6H PRN ORAL For Pain 11/10/17 13:00 11/17/17 12:59 11/13/17 12:37 Albuterol/ Ipratropium (Albuterol/ Ipratropium) 3 ml Q6HRT PRN HHN Shortness of Breath 11/13/17 13:00 11/18/17 12:59 11/13/17 12:40 Aluminum Hydroxide (Amphojel) 1,920 mg TIPC ORAL 11/08/17 18:00 12/08/17 17:59 11/13/17 14:16 Amlodipine Besylate (Norvasc) 5 mg DAILY ORAL 11/12/17 09:00 12/12/17 08:59 11/13/17 09:23 Aspirin (ASA) 81 mg DAILY ORAL 11/08/17 09:00 12/08/17 08:59 11/13/17 09:23 Atorvastatin Calcium (Lipitor) 10 mg BEDTIME ORAL 11/10/17 21:00 12/10/17 20:59 11/12/17 20:29 Carvedilol (Coreg) 3.125 mg EVERY 12 HOURS ORAL 11/07/17 21:00 12/07/17 20:59 11/13/17 09:24 Ciprofloxacin (Ciloxan Opth Soln) 2 drop EVERY 6 HOURS RIGHT EYE 11/10/17 12:00 11/17/17 11:59 11/13/17 11:51 Clonazepam (KlonoPIN) 1 mg Q6H PRN ORAL ANXIETY 11/07/17 12:30 11/14/17 12:29 11/07/17 13:12 Dextrose (Dextrose 50%) 25 ml STAT PRN IV Hypoglycemia 11/07/17 12:30 12/07/17 12:29 Dextrose (Dextrose 50%) 50 ml STAT PRN IV Hypoglycemia 11/07/17 12:30 12/07/17 12:29 Docusate Sodium (Colace) 100 mg THREE TIMES A DAY ORAL 11/07/17 18:00 12/07/17 17:59 11/13/17 13:05 Epoetin Mau (Procrit (for ESRD on dialysis)) 10,000 units SUN-SUN-SUN SUBQ 11/07/17 21:00 12/07/17 20:59 11/12/17 20:30 Gabapentin (Neurontin) 300 mg Q8HR ORAL 11/07/17 14:00 12/07/17 13:59 11/13/17 13:05 Heparin Sodium (Porcine) (Heparin 5000 units/ml) 5,000 units EVERY 12 HOURS SUBQ 11/07/17 21:00 12/07/17 20:59 11/13/17 09:25 Hydralazine HCl (Apresoline) 25 mg Q4H PRN ORAL SBP > 160mmHg 11/07/17 16:30 12/07/17 16:29 11/13/17 13:05 Insulin Aspart (NovoLOG) BEFORE MEALS AND HS SUBQ 11/07/17 16:30 12/07/17 16:29 11/13/17 11:51 Lamotrigine (LaMICtal) 100 mg Q12HR ORAL 11/07/17 21:00 12/07/17 20:59 11/13/17 09:23 Levothyroxine Sodium (Synthroid) 25 mcg DAILY@0630 ORAL 11/09/17 06:30 12/09/17 06:29 11/13/17 06:19 Lisinopril (Zestril) 5 mg DAILY ORAL 11/12/17 09:00 12/12/17 08:59 11/13/17 09:23 Ondansetron HCl (Zofran) 4 mg Q6H PRN IVP Nausea & Vomiting 11/07/17 12:30 12/07/17 12:29 Pantoprazole (Protonix) 40 mg DAILY ORAL 11/08/17 09:00 12/08/17 08:59 11/13/17 09:22 Polyethylene Glycol (Miralax) 17 gm HSPRN PRN ORAL Constipation 11/07/17 12:30 12/07/17 12:29 11/11/17 11:12 Quetiapine Fumarate (SEROquel) 300 mg BEDTIME ORAL 11/07/17 21:00 12/07/17 20:59 11/12/17 20:29 Sevelamer Carbonate (Renvela) 2,400 mg THREE TIMES A DAY ORAL 11/08/17 18:00 12/08/17 17:59 11/13/17 14:15 Sitagliptin Phosphate (Januvia) 25 mg ACBREAKFAST ORAL 11/08/17 06:30 12/08/17 06:29 11/13/17 06:19 Zolpidem Tartrate (Ambien) 5 mg HSPRN PRN ORAL Insomnia 11/07/17 12:30 11/14/17 12:29 Demetri Vallecillo MD Nov 13, 2017 14:19
[2017-11-13 14:40] VITALS: BP 198/98
--- NOTE | 2017-11-13 14:51 | General Progress Note ---
Assessment/Plan Status: stable Assessment/Plan Bipolar d/o seroquel 300mg qhs provided ro/st the pts social security benefits interviewer has already spoken to her but she stated "no. Subjective Date patient seen: Nov 12, 2017 Neurologic/Psychiatric: Reports: anxiety, depressed, emotional problems Allergies: Coded Allergies: No Known Allergies (Verified , 08/23/06) Subjective The pt is anxious and multiple complaints/ late entry note Objective Last 24 Hour Vital Signs Date Time Temp Pulse Resp B/P (MAP) Pulse Ox O2 Delivery O2 Flow Rate FiO2 11/13/17 14:40 198/98 (131) 11/13/17 13:05 178/76 11/13/17 12:44 72 16 Room Air 21 11/13/17 12:35 64 16 97 Room Air 21 11/13/17 12:00 97.9 67 20 178/76 (110) 94 97.9 11/13/17 09:24 68 143/73 11/13/17 09:23 143/73 11/13/17 09:23 68 143/73 11/13/17 09:00 Room Air 11/13/17 08:00 97.3 68 20 143/73 (96) 93 97.3 11/13/17 07:25 64 18 Room Air 21 11/13/17 04:00 97.3 62 20 143/72 (95) 93 97.3 11/13/17 00:00 97.5 64 20 136/88 (104) 92 97.5 11/12/17 21:00 Room Air 11/12/17 20:30 71 138/81 11/12/17 20:00 98.9 71 19 138/81 (100) 94 98.9 11/12/17 18:34 98.9 11/12/17 18:14 Room Air 11/12/17 18:06 Room Air 21 11/12/17 18:04 98.9 11/12/17 16:45 191/98 11/12/17 16:45 191/98 (129) 11/12/17 16:00 98.9 17 118/78 (91) 66 98.9 Intake and Output 11/12/17 11/13/17 19:00 07:00 Intake Total 1200 ml Output Total 1800 ml 450 ml Balance -600 ml -450 ml Other 1200 ml Output Urine Total 450 ml Hemodialysis UF 1800 ml Laboratory Tests 11/13/17 08:25: Erythrocyte Sedimentation Rate 109H Height (Feet): 5 Height (Inches): 5.00 Weight (Pounds): 223 General Appearance: no apparent distress, alert, obese Neurologic: oriented x 3, responsive, depressed affect Blanka Beckett MD Nov 13, 2017 14:51
--- NOTE | 2017-11-13 14:52 | General Progress Note ---
Assessment/Plan Assessment/Plan Bipolar d/o seroquel 400mg qhs provided ro/st the pts school social worker has already spoken to her but she stated "no. Subjective Date patient seen: Nov 13, 2017 Neurologic/Psychiatric: Reports: anxiety, depressed, emotional problems Allergies: Coded Allergies: No Known Allergies (Verified , 08/23/06) Subjective The pt is anxious and irritable Objective Last 24 Hour Vital Signs Date Time Temp Pulse Resp B/P (MAP) Pulse Ox O2 Delivery O2 Flow Rate FiO2 11/13/17 14:40 198/98 (131) 11/13/17 13:05 178/76 11/13/17 12:44 72 16 Room Air 21 11/13/17 12:35 64 16 97 Room Air 21 11/13/17 12:00 97.9 67 20 178/76 (110) 94 97.9 11/13/17 09:24 68 143/73 11/13/17 09:23 143/73 11/13/17 09:23 68 143/73 11/13/17 09:00 Room Air 11/13/17 08:00 97.3 68 20 143/73 (96) 93 97.3 11/13/17 07:25 64 18 Room Air 21 11/13/17 04:00 97.3 62 20 143/72 (95) 93 97.3 11/13/17 00:00 97.5 64 20 136/88 (104) 92 97.5 11/12/17 21:00 Room Air 11/12/17 20:30 71 138/81 11/12/17 20:00 98.9 71 19 138/81 (100) 94 98.9 11/12/17 18:34 98.9 11/12/17 18:14 Room Air 11/12/17 18:06 Room Air 21 11/12/17 18:04 98.9 11/12/17 16:45 191/98 11/12/17 16:45 191/98 (129) 11/12/17 16:00 98.9 17 118/78 (91) 66 98.9 Intake and Output 11/12/17 11/13/17 19:00 07:00 Intake Total 1200 ml Output Total 1800 ml 450 ml Balance -600 ml -450 ml Other 1200 ml Output Urine Total 450 ml Hemodialysis UF 1800 ml Laboratory Tests 9/25/18 08:25: Erythrocyte Sedimentation Rate 109H Height (Feet): 5 Height (Inches): 5.00 Weight (Pounds): 223 General Appearance: no apparent distress, alert Neurologic: oriented x 3, responsive, depressed affect Blanka Beckett MD Nov 13, 2017 14:52
--- NOTE | 2017-11-13 15:28 | Internal Med Progress Note ---
Subjective Physician Name Sea Lundberg Attending Physician Sea Lundberg MD Current Medications Medications (Trade) Dose Ordered Sig/Gabriele Route PRN Reason Start Time Stop Time Status Last Admin Dose Admin Acetaminophen (Tylenol) 650 mg Q4H PRN ORAL fever (temp>100.5F) 11/07/17 12:30 12/07/17 12:29 Acetaminophen/ Hydrocodone Bitart ([place] 5/325) 1 tab Q6H PRN ORAL For Pain 11/10/17 13:00 11/17/17 12:59 11/13/17 12:37 Albuterol/ Ipratropium (Albuterol/ Ipratropium) 3 ml Q6HRT PRN HHN Shortness of Breath 11/13/17 13:00 11/18/17 12:59 11/13/17 12:40 Aluminum Hydroxide (Amphojel) 1,920 mg TIPC ORAL 11/08/17 18:00 12/08/17 17:59 11/13/17 14:16 Amlodipine Besylate (Norvasc) 5 mg DAILY ORAL 11/12/17 09:00 12/12/17 08:59 11/13/17 09:23 Aspirin (ASA) 81 mg DAILY ORAL 11/08/17 09:00 12/08/17 08:59 11/13/17 09:23 Atorvastatin Calcium (Lipitor) 10 mg BEDTIME ORAL 11/10/17 21:00 12/10/17 20:59 11/12/17 20:29 Carvedilol (Coreg) 3.125 mg EVERY 12 HOURS ORAL 11/07/17 21:00 12/07/17 20:59 11/13/17 09:24 Ciprofloxacin (Ciloxan Opth Soln) 2 drop EVERY 6 HOURS RIGHT EYE 11/10/17 12:00 11/17/17 11:59 11/13/17 11:51 Clonazepam (KlonoPIN) 1 mg Q6H PRN ORAL ANXIETY 11/07/17 12:30 11/14/17 12:29 11/07/17 13:12 Clonidine HCl (Catapres Tab) 0.1 mg Q4H PRN ORAL For High Blood Pressure 11/13/17 15:15 12/13/17 15:14 Dextrose (Dextrose 50%) 25 ml STAT PRN IV Hypoglycemia 11/07/17 12:30 12/07/17 12:29 Dextrose (Dextrose 50%) 50 ml STAT PRN IV Hypoglycemia 11/07/17 12:30 12/07/17 12:29 Docusate Sodium (Colace) 100 mg THREE TIMES A DAY ORAL 11/07/17 18:00 12/07/17 17:59 11/13/17 13:05 Epoetin Mau (Procrit (for ESRD on dialysis)) 10,000 units SUN-WED-SUN SUBQ 11/07/17 21:00 12/07/17 20:59 11/12/17 20:30 Gabapentin (Neurontin) 300 mg Q8HR ORAL 11/07/17 14:00 12/07/17 13:59 11/13/17 13:05 Heparin Sodium (Porcine) (Heparin 5000 units/ml) 5,000 units EVERY 12 HOURS SUBQ 11/07/17 21:00 12/07/17 20:59 11/13/17 09:25 Hydralazine HCl (Apresoline) 25 mg Q4H PRN ORAL SBP > 160mmHg 11/07/17 16:30 12/07/17 16:29 11/13/17 13:05 Insulin Aspart (NovoLOG) BEFORE MEALS AND HS SUBQ 11/07/17 16:30 12/07/17 16:29 11/13/17 11:51 Lamotrigine (LaMICtal) 100 mg Q12HR ORAL 11/07/17 21:00 12/07/17 20:59 11/13/17 09:23 Levothyroxine Sodium (Synthroid) 25 mcg DAILY@0630 ORAL 11/09/17 06:30 12/09/17 06:29 11/13/17 06:19 Lisinopril (Zestril) 5 mg DAILY ORAL 11/12/17 09:00 12/12/17 08:59 11/13/17 09:23 Ondansetron HCl (Zofran) 4 mg Q6H PRN IVP Nausea & Vomiting 11/07/17 12:30 12/07/17 12:29 Pantoprazole (Protonix) 40 mg DAILY ORAL 11/08/17 09:00 12/08/17 08:59 11/13/17 09:22 Polyethylene Glycol (Miralax) 17 gm HSPRN PRN ORAL Constipation 11/07/17 12:30 12/07/17 12:29 11/11/17 11:12 Quetiapine Fumarate (SEROquel) 400 mg BEDTIME ORAL 11/13/17 21:00 12/13/17 20:59 Sevelamer Carbonate (Renvela) 2,400 mg THREE TIMES A DAY ORAL 11/08/17 18:00 12/08/17 17:59 11/13/17 14:15 Sitagliptin Phosphate (Januvia) 25 mg ACBREAKFAST ORAL 11/08/17 06:30 12/08/17 06:29 11/13/17 06:19 Zolpidem Tartrate (Ambien) 5 mg HSPRN PRN ORAL Insomnia 11/07/17 12:30 11/14/17 12:29 Allergies: Coded Allergies: No Known Allergies (Verified , 08/23/06) Subjective awake, alert, responsive, NAD, C/O elevated BP Objective Last Vital Signs Date Time Temp Pulse Resp B/P (MAP) Pulse Ox O2 Delivery O2 Flow Rate FiO2 11/13/17 14:40 198/98 (131) 11/13/17 12:44 72 16 Room Air 21 11/13/17 12:35 97 11/13/17 12:00 97.9 97.9 Laboratory Tests Test 11/13/17 08:25 Erythrocyte Sedimentation Rate 109 MM/HR (0-30) H Intake and Output 11/12/17 11/13/17 19:00 07:00 Intake Total 1200 ml Output Total 1800 ml 450 ml Balance -600 ml -450 ml Other 1200 ml Output Urine Total 450 ml Hemodialysis UF 1800 ml Objective General: No acute distress, awake and alert HEENT: NCAT, sclera anicteric, PERRL, EOMI, right eye erythema. Neck: Supple, no significant jugular venous distention, Lungs: Fair inspiratory effort, clear to auscultation bilaterally, no Wheeze or Rales. Heart: Regular rate and rhythm, normal S1/S2, no murmurs Abdomen: soft, nontender, nondistended. Normoactive bowel sounds, Obesity, Extremities: No Cyanosis , clubbing +1 LE's edema. RUE AVF. Neuro: A&O x 3, Able to move all extremities Skin: warm, no rashes Psych: anxious mood and affect Assessment/Plan Assessment/Plan 1. Congestive heart failure. 2. Diarrhea. 3. Generalized weakness. 4. Hypertension. 5. End-stage renal disease. 6. Type 2 diabetes. 7. Anemia of chronic renal disease. 8. Bipolar depression. 9. History of colon cancer. 10. Anemia of chronic renal disease 11. Hypothyroidism 12. Right Eye conjunctivitis. Plan: monitor BP Code status: Full code DC planning for SNF placement soon. DC Cipro ophthalmic Sea Lundberg MD Nov 13, 2017 15:28
[2017-11-13 16:00] VITALS: BP 156/88
[2017-11-13] MEDS ORDERED: HydrALAZINE 50mg tab ORAL PRN (16:30)
[2017-11-13] MEDS ORDERED: QUEtiapine 200mg tab ORAL SCH (21:00)
--- NOTE | 2017-11-16 13:44 | Discharge Summary ---
Discharge Summary Discharge Summary _ DATE OF ADMISSION: 11/07/2017 DATE OF DISCHARGE: 11/13/2017 REASON FOR ADMISSION: 56 years old female with past medical history of diabetes mellitus, diabetic neuropathy, end-stage renal disease on hemodialysis, obesity, congestive heart failure, hypertension, bipolar disorder ,presented for generalized weakness. She reported right leg weakness and inability to walk. She used a wheelchair at home . Patient was evaluated at [facility] a day prior to presentation to [facility], and was discharged . Patient reported , however, inability to care for herself. Patient was supposed to have dialysis , but she was unable to go. Patient also reported anxiety and depression about inability to care for herself. Upon evaluation vital signs were stable. EKG revealed sinus rhythm, no acute ischemic changes ,troponin negative. No leukocytosis. Hemoglobin 8.5,hematocrit 27.2. BUN 40 creatinine 6.8, consistent with known history of end-stage renal disease. Pro BNP over 35,000. Chest x-ray with evidence of pulmonary edema. Patient admitted with diagnoses of pulmonary edema, end-stage renal disease, hypertension, type 2 diabetes mellitus, history of colon cancer ,bipolar disorder ,anemia of chronic renal disease, generalized weakness. CONSULTANTS: pulmonary Dr. Vallecillo wire repairer Dr. Solis psychiatrist manipulator operator Dr. Dawn parking garage manager Dr. Escamilla [facility] COURSE: Patient admitted. Supplemental oxygen provided as needed to keep pulse oximetry above 92%. Pulmonary toilet was on standby as needed. Hemodialysis provided as per nephrology orders with close monitoring of volumes and cardiorenal parameters and electrolytes. Electrolytes corrected as needed. Patient was encouraged compliance with hemodialysis schedule. Blood pressure was managed with the VIKY inhibitor and hydralazine was added on as needed basis. Antiplatelet therapy with aspirin was continued. Lipid panel revealed mixed hyperlipidemia. Statin was continued. Patient was counseled on low-fat low-cholesterol diabetic diet. DVT and GI prophylaxis provided. Pain management was addressed. Neurontin was continued. Arterial duplex bilateral lower extremity revealed moderate stenosis popliteal artery and mild stenosis mild superficial femoral artery right leg. It also demonstrated moderate stenosis of the proximal superficial femoral artery in the left leg. The popliteal artery with monophasic with diminished amplitude. Patient already on antiplatelet therapy. Podiatry consult was requested for diabetic foot ulcers right hallux and left fourth toe. Wound care provided as per parking garage manager recommendations. No surgical intervention was necessary at this time. X-ray of bilateral foot revealed no evidence of osteomyelitis. Patient was continued with postoperative shoes. Hemoglobin and hematocrit were closely monitored with goal to keep hemoglobin above 7. Anemia workup was consistent with anemia of chronic disease. Patient was Epogen. Hemoglobin and hematocrit remained at baseline. Gutter Installer followed. Blood sugar was managed with Januvia and sliding scale of insulin. Hemoglobin A1c at goal. Diabetes teaching was provided. TSH at target. Current dose of Synthroid was continued. Patient was working with physical and occupational therapists. Seizure precautions were maintained. Lamictal was continued. Patient noted to have a right eye conjunctivitis, patient subsequently started on antibiotic eye drops, status post treatment. Psychiatrist seen and evaluated patient. Reality orientation supportive therapy provided. Psychiatric medication regimen was optimized. client services account manager was working on placement. Placement was [facility] and [facility] at [facility]. Patient agreed with the transfer. Patient was stable for discharge FINAL DIAGNOSES: Pulmonary edema End-stage renal disease on hemodialysis Seizure disorder Noncompliance Anemia of chronic renal disease Hypertensive kidney disease Pulmonary hypertension Hypothyroidism Diabetes mellitus with diabetic neuropathy Mixed hyperlipidemia History of colon cancer Morbid obesity Noncompliance Chronic diabetic foot ulcer right hallux and left 4th toe Peripheral vascular disease Bipolar disorder Right eye conjunctivitis DISCHARGE MEDICATIONS: See Medication Reconciliation list. DISCHARGE INSTRUCTIONS: [facility] Follow up with medical doctor at the facility. Alisha Kemp NP Nov 16, 2017 13:44
--- NOTE | 2017-11-19 15:14 | Diagnostic Imaging Report ---
APPROVED REPORT CPT Code: 60747 Symptoms Comments: Leg pain R/O arterial insufficiency Comments Technically difficult study due to calcific interference and pain. RIGHT LEG: Common femoral artery waveform analysis is within normal limits at rest. Color flow duplex sonography reveals a mild (30-50%) stenosis at the mid superficial femoral artery. A moderate (50-60%) stenosis is seen in the popliteal artery. The tibioperoneal trunks are not well visualized. The posterior tibial, anterior tibial and dorsalis pedis arteries are also heavily calcified. Doppler tibial artery waveform analysis is monophasic and with diminished amplitude, consistent with severe ischemia at rest. LEFT LEG: Common femoral artery waveform analysis is within normal limits at rest. Color flow duplex sonography reveals a moderate (50-60%) stenosis at the proximal superficial femoral artery. The popliteal artery is monophasic with diminished amplitude. The tibioperoneal trunks are not well visualized. The posterior tibial, anterior tibial and dorsalis pedis arteries are also heavily calcified. Doppler tibial artery waveform analysis is monophasic and with diminished amplitude, consistent with severe ischemia at rest.
--- NOTE | 2017-11-23 15:42 | Cardiology Report ---
APPROVED REPORT EKG Measurement Heart [id number] Sinus bradycardia Possible Left atrial enlargement Borderline ECG
== END 2017-11-13 17:45 | DRG 291 ==
LOC: EDBD 09:37 → EMR 09:54 → EDBEDREQ 10:00 → 4E 10:26 → EDBEDREQ 10:48 → 4E 12:09
PROC: 5A1D70Z Performance of Urinary Filtration, Intermittent, Less than 6 Hours Per Day (ICD-10-PCS; principal; 2017-11-08)
DX: I13.2 Hypertensive heart and chronic kidney disease with heart failure and with stage 5 chronic kidney disease, or end stage renal disease (principal); N18.6 End stage renal disease; F31.30 Bipolar disorder, current episode depressed, mild or moderate severity, unspecified; R19.7 Diarrhea, unspecified; E11.621 Type 2 diabetes mellitus with foot ulcer; L97.529 Non-pressure chronic ulcer of other part of left foot with unspecified severity; L97.519 Non-pressure chronic ulcer of other part of right foot with unspecified severity; E11.40 Type 2 diabetes mellitus with diabetic neuropathy, unspecified; F31.9 Bipolar disorder, unspecified; E11.22 Type 2 diabetes mellitus with diabetic chronic kidney disease; I50.9 Heart failure, unspecified; Z99.2 Dependence on renal dialysis; Z91.15 Patient's noncompliance with renal dialysis; D63.1 Anemia in chronic kidney disease; Z85.038 Personal history of other malignant neoplasm of large intestine; G40.909 Epilepsy, unspecified, not intractable, without status epilepticus; E03.9 Hypothyroidism, unspecified; M51.27 Other intervertebral disc displacement, lumbosacral region; E66.01 Morbid (severe) obesity due to excess calories; Z86.19 Personal history of other infectious and parasitic diseases; R26.2 Difficulty in walking, not elsewhere classified; I27.20 Pulmonary hypertension, unspecified; E78.00 Pure hypercholesterolemia, unspecified; H10.9 Unspecified conjunctivitis; E78.2 Mixed hyperlipidemia
CPT/HCPCS: 36415; 71045; 80053; 80061; 82550; 82607; 82728; 82746; 82962; 82977; 83036; 83540; 83550; 83735; 83880; 84100; 84443; 84484; 84550; 85025; 85610; 85651; 85730; 86140; 87081; 93005; 93925; 94640; 94664; 99285; J1815; J7620

== ENCOUNTER 2018-06-10 21:24 | Inpatient (IN) | payer MEDICARE, MEDICAID ==
[~2018-06-10] VITALS: Ht 162.6 cm; Wt 97.5 kg
[~2018-06-10 21:24] MED LIST changes: +ACETAMINOPHEN325 M1 ORAL; +QUETIAPINE FUMA25 MG ORAL; +TORSEMIDE10 MG PO
--- NOTE | 2018-06-10 21:37 | NUR ---
ED Nurse Note: pt states she goes dialysis tue/thur/sat, noted av shunt on right upper arm +bruit and thrill.
--- NOTE | 2018-06-10 21:37 | NUR ---
ED Nurse Note: pt brought in by ambulance from [facility] c/o low hgb = 6.6 and sorethroat and jeannie earache x 1 day. pt AA&ox4, gcs=15, skin warm and dry, resp even and unlabored on 2L via NC, no resp distress noted, -n/v/d at this time, will cont monitor.
[2018-06-10 21:40] VITALS: BP 146/58
--- NOTE | 2018-06-10 21:45 | Emergency Room Report ---
History of Present Illness General Chief Complaint: Abnormal Labs Source: Patient Present Illness HPI This is a 52-year-old female with history of renal failure on hemodialysis. Hemodialysis days are Sunday, , and Sunday. She presents with chief complaint of anemia and sore throat. Her main complaint is sore throat and decreased hearing in her ears. Onset for last couple days. Worse with swallowing. Basic blood work was done and show hemoglobin of 6.6. alf note said generalize weakness but patient denies that. She denies being short of breath. No chest pain. No nausea no vomiting. Denies any other complaint. Allergies: Coded Allergies: No Known Allergies (Verified , 08/23/06) Patient History Past Medical History: see triage record, old chart reviewed, HTN, CAD, COPD, renal disease, dialysis Past Surgical History: other Pertinent Family History: none Social History: Denies: smoking Last Menstrual Period: UNK Now: No Immunizations: other Reviewed Nursing Documentation: PMH: Agreed; PSxH: Agreed Nursing Documentation-PMH Past Medical History: No History, Except For Hx Cardiac Problems: Yes - palpitations Hx Hypertension: Yes Hx Diabetes: Yes Hx Cancer: No Hx Gastrointestinal Problems: Yes Hx Dialysis: Yes - MWF Hx Neurological Problems: No Review of Systems Constitutional: Reports: weakness Eye: Denies: eye pain, blurred vision ENT: Reports: throat pain; Denies: ear pain, nose congestion, throat swelling Respiratory: Denies: cough, shortness of breath Cardiovascular: Denies: chest pain, palpitations Gastrointestinal: Denies: abdominal pain, diarrhea, nausea, vomiting Musculoskeletal: Denies: back pain, joint pain Skin: Denies: rash Neurological: Denies: headache, numbness Endocrine: Denies: increased thirst, increased urine Hematologic/Lymphatic: Denies: easy bruising All Other Systems: negative except mentioned in HPI Physical Exam Vital Signs Date Time Temp Pulse Resp B/P (MAP) Pulse Ox O2 Delivery O2 Flow Rate FiO2 06/10/18 21:21 97.9 66 14 162/78 95 Nasal Cannula 4.0 vitals with high blood pressure Sp02 EP Interpretation: reviewed, normal General Appearance: well appearing, no apparent distress, alert Head: normocephalic, atraumatic Eyes: bilateral eye PERRL, bilateral eye EOMI ENT: hearing grossly normal, normal pharynx, other - Bilateral TMs with mild effusions Neck: full range of motion, supple, no meningismus Respiratory: chest non-tender, lungs clear, normal breath sounds Cardiovascular #1: regular rate, rhythm, no murmur Gastrointestinal: normal bowel sounds, non tender, no mass, no organomegaly, no bruit, non-distended Musculoskeletal: back normal, normal range of motion Psychiatric: mood/affect normal Skin: warm/dry Medical Decision Making Diagnostic Impression: Primary Impression: Anemia in chronic renal disease Qualified Codes: N18.6 - End stage renal disease; D63.1 - Anemia in chronic kidney disease; Z99.2 - Dependence on renal dialysis Additional Impression: Pharyngitis, acute Qualified Codes: J02.9 - Acute pharyngitis, unspecified ER Course Patient with anemia. She appeared to be somewhat some somatic with weakness per half-way. She does have a URI type of symptoms. No evidence of ACS, PE , dissection. No evidence of fluid overloaded. Patient is comfortable. I discussed the case with Dr. Crespo who will admit for Dr. Rudolph. Lab Results Impression labs with anemia Rhythm Strip Diag. Results Rhythm Strip Time: 23:15 EP Interpretation: yes Rate: 72 Rhythm: NSR, no PVC's, no ectopy Last Vital Signs Date Time Temp Pulse Resp B/P (MAP) Pulse Ox O2 Delivery O2 Flow Rate FiO2 06/10/18 21:21 97.9 66 14 162/78 95 Nasal Cannula 4.0 Status: improved Disposition: ADMITTED INPATIENT Condition: Serious Fercho Hurt MD Jun 10, 2018 21:44
[2018-06-10] MEDS ORDERED: Miralax 17gm pkt ORAL PRN (22:00)
[2018-06-10] MEDS ORDERED: Morphine Sulfate 2mg/ml Inj(IV/IM USE ONLY) IVP PRN (22:00)
[2018-06-10] MEDS ORDERED: Zolpidem 5mg tab ORAL PRN (22:00)
[2018-06-10] MEDS ORDERED: Albuterol/Ipratropium 3ml neb HHN PRN (22:00)
[2018-06-10] MEDS ORDERED: Mylanta II UD 30ml ORAL PRN (22:00)
[2018-06-10 22:15] LABS: INR 1.1 (0.9-1.1)
[2018-06-10 22:17] LABS: ANION GAP 11 mmol/L (5-15); BLOOD UREA NITROGEN 44 mg/dL (7-18); CALCIUM 9.4 MG/DL (8.5-10.1); CARBON DIOXIDE 28 MMOL/L (21-32); CHLORIDE 96 MMOL/L (98-107); POTASSIUM 4.9 MMOL/L (3.5-5.1); SODIUM 135 MMOL/L (136-145)
[2018-06-10 22:20] LABS: HEMATOCRIT 22.3 % (37.0-47.0); HEMOGLOBIN 7.6 G/DL (12.0-16.0); MEAN CORPUSCULAR VOLUME 89 FL (80-99); PLATELET COUNT 275 K/UL (150-450); RED BLOOD COUNT 2.52 M/UL (4.20-5.40); RED CELL DISTRIBUTION WIDTH 12.9 % (11.6-14.8); WHITE BLOOD COUNT 10.9 K/UL (4.8-10.8)
[2018-06-10] MEDS ORDERED: Lidocaine 2% Visc 15ml soln ORAL ONE (23:15)
[2018-06-10] MEDS ORDERED: Mylanta II UD 30ml ORAL ONE (23:15)
--- NOTE | 2018-06-11 00:21 | NUR ---
ED Nurse Note: report given to CHEPE Hernandez from [facility].
--- NOTE | 2018-06-11 00:40 | NUR ---
NURSE NOTES: Patient came from Er via gurney. Patient refused to turn and refused assess. Belongings are checked, refused to sign, unable to get sign for belonging form. IV site patent and intact. AV shunt noted on right upper arm, bruit and thrill present. Bed in lowest position. Call light within reach. Will continue to monitor.
[2018-06-11] MEDS ORDERED: MIRALAX17 G2 ORAL (02:24)
[2018-06-11] MEDS ORDERED: NEURONTIN300 MG ORAL (02:24)
[2018-06-11] MEDS ORDERED: IPRATROPIU0.2 MG/1 M HHN (02:24)
[2018-06-11] MEDS ORDERED: AMLODIPINE BESY10 MG ORAL (02:24)
[2018-06-11] MEDS ORDERED: NEPHROVITE1 TAB ORAL (02:24)
[2018-06-11] MEDS ORDERED: ATORVASTATIN CA40 MG ORAL (02:24)
[2018-06-11] MEDS ORDERED: NORCO 5-325 TA1 EACH ORAL (02:24)
[2018-06-11] MEDS ORDERED: ADVAIR 500-501 EACH INH (02:24)
[2018-06-11] MEDS ORDERED: JANUVIA25 MG ORAL (02:24)
[2018-06-11] MEDS ORDERED: APRESOLINE50 MG ORAL (02:24)
[2018-06-11] MEDS ORDERED: LONITEN2.5 MG ORAL (02:24)
[2018-06-11] MEDS ORDERED: DULCOLAX10 MG RC (02:24)
[2018-06-11] MEDS ORDERED: COLACE100 MG ORAL (02:24)
[2018-06-11] MEDS ORDERED: SYNTHROID50 MCG ORAL (02:24)
[2018-06-11] MEDS ORDERED: CLONIDINE HCL0.2 MG PO (02:24)
[2018-06-11] MEDS ORDERED: PLAVIX75 MG ORAL (02:24)
[2018-06-11] MEDS ORDERED: RENAGEL800 MG ORAL (02:24)
[2018-06-11] MEDS ORDERED: LACTULOSE10 GM/153 PO (02:24)
[2018-06-11] MEDS ORDERED: SEROQUEL400 MG ORAL (02:24)
[2018-06-11] MEDS ORDERED: LEVETIRACETAM1000 MG ORAL (02:24)
[2018-06-11] MEDS ORDERED: HYDROcodone/Acetamin 5/325 tab ORAL PRN (02:30)
[2018-06-11] MEDS ORDERED: Ipratropium 0.02% Inh Soln 2.5ml UD HHN PRN (02:30)
[2018-06-11] MEDS ORDERED: Lactulose 10gm/15ml UDC ORAL PRN ×2 (02:45)
[2018-06-11 04:00] VITALS: BP 153/65
[2018-06-11] MEDS ORDERED: HydrALAZINE 50mg tab ORAL SCH ×2 (06:00)
[2018-06-11] MEDS: NovoLOG Insulin Flexpen SUBQ SCH ×4 (06:25→21:00)
[2018-06-11] MEDS ORDERED: NovoLOG Insulin Flexpen SUBQ SCH (06:30)
--- NOTE | 2018-06-11 06:48 | NUR ---
NURSE NOTES: Patient refused put side rail padded, and insist put all side rail down. Nurse explained importance of safety but still refusing.
--- NOTE | 2018-06-11 07:30 | NUR ---
HAND-OFF: Report given to Janay MO.
--- NOTE | 2018-06-11 07:40 | NUR ---
NURSE NOTES: received patient in bed, patient awake, alert, x4, no sign of distress, HL patent , right upper arm AVS with good bruit and thrill sound noted, on fall and seizure precaution, Patient refused put side rail padded, and insist put all side rail down. explained importance of safety but still refusing nyla guido
[2018-06-11 08:00] VITALS: BP 143/59
[2018-06-11 08:18] LABS: HEMATOCRIT 20.5 % (37.0-47.0); MEAN CORPUSCULAR VOLUME 90 FL (80-99); PLATELET COUNT 254 K/UL (150-450); RED BLOOD COUNT 2.28 M/UL (4.20-5.40); RED CELL DISTRIBUTION WIDTH 13.4 % (11.6-14.8); WHITE BLOOD COUNT 8.4 K/UL (4.8-10.8)
[2018-06-11 08:21] LABS: HEMOGLOBIN 6.8 G/DL (12.0-16.0)
--- NOTE | 2018-06-11 08:30 | NUR ---
nurse notes Dr Hawkins came and examined patient , made aware regarding Hgb 6.8 no new order noted, made also aware patient non compliant with meds and safety issue nyla guido
[2018-06-11] MEDS: Miralax 17gm pkt ORAL SCH (08:34)
[2018-06-11] MEDS: Nephrovite tab (Rena-Vite) ORAL SCH (08:35)
[2018-06-11] MEDS: sitaGLIPtin 25mg tab ORAL SCH (08:35)
--- NOTE | 2018-06-11 08:51 | History and Physical ---
History of Present Illness General Date patient seen: Jun 11, 2018 Time patient seen: 08:20 Reason for Hospitalization: Abnormal Labs Present Illness HPI 57 year old female with ESRD on HD, DM2, HTN, HL, chronic diastolic CHF, COPD, PVD, hypothyroidism, obesity, bipolar disorder, hx of CVA, medical noncompliance who was sent in from [facility] for evaluation of anemia. Patient herself complains of sore throat and decreased auditory acuity x 2 days. She denies any weakness, dizziness, chest pain, palpitations. In ED she was noted to have Hb of 7.6 without evidence of active bleeding. Social History: No alcohol or tobacco Family History: No premature CAD Allergies: Coded Allergies: No Known Allergies (Verified , 08/23/06) Medication History Scheduled Amlodipine Besylate* (Amlodipine Besylate*), 10 MG ORAL DAILY, (Reported) Aspirin* (Aspirin*), 81 MG ORAL DAILY, (Reported) Atorvastatin Calcium* (Atorvastatin Calcium*), 40 MG ORAL BEDTIME, (Reported) Bisacodyl (Dulcolax), 10 MG RC DAILY, (Reported) Carvedilol* (Carvedilol*), 12.5 MG ORAL EVERY 12 HOURS, (Reported) Clonidine Hcl (Clonidine Hcl), 0.2 MG PO BID, (Reported) Clopidogrel Bisulfate* (Plavix*), 75 MG ORAL DAILY, (Reported) Docusate Sodium* (Colace*), 100 MG ORAL TWICE A DAY, (Reported) Fluticasone/Salmeterol (Advair 500-50 Diskus), 1 PUFF INH EVERY 12 HOURS, ( Reported) Gabapentin (Neurontin), 300 MG ORAL BID, (Reported) Hydralazine HCl (Hydralazine HCl), 50 MG ORAL EVERY 8 HOURS, (Reported) Levetiracetam (Levetiracetam), 1,000 MG ORAL TWICE A DAY, (Reported) Levothyroxine Sodium (Synthroid), 50 MCG ORAL DAILY, (Reported) Minoxidil (Minoxidil), 2.5 MG ORAL BID, (Reported) Polyethylene Glycol 3350* (Miralax*), 17 GM ORAL DAILY, (Reported) Quetiapine Fumarate (Seroquel), 400 MG ORAL BEDTIME, (Reported) Sevelamer Hcl (Renagel), 800 MG ORAL THREE TIMES A DAY, (Reported) Sitagliptin* (Januvia*), 25 MG ORAL DAILY, (Reported) Vitamin B Cmplx/Vit C/Folic AC (Nephro-Denise Tablet), 1 TAB ORAL DAILY, (Reported ) Scheduled PRN Acetaminophen* (Acetaminophen 325MG Tablet*), 650 MG ORAL QID PRN for Pain Scale (3-5), (Reported) Hydrocodone Bit/Acetaminophen 5-325* ([place] 5-325*), 1 TAB ORAL Q4H PRN for For Pain, (Reported) Ipratropium [place] 0.5MG/2.5ML (Ipratropium [place] 0.5MG/2.5ML), 0.5 MG HHN Q6H PRN for Shortness of Breath, (Reported) Lactulose (Lactulose), 10 GM PO DAILY PRN for Constipation, (Reported) Discontinued Medications Clonazepam* (Klonopin*), 1 MG ORAL Q6H, (Reported) Discontinued Reason: Pt stopped taking med Patient History Healthcare decision maker Resuscitation status Full Code Advanced Directive on File Review of Systems Constitutional: Denies: chills, fever Eye: Denies: eye pain ENT: Reports: throat pain, hearing loss Respiratory: Denies: cough, orthopnea Cardiovascular: Denies: chest pain Gastrointestinal: Denies: abdominal pain, constipation Musculoskeletal: Denies: back pain, gout Skin: Denies: rash Neurological: Denies: headache, numbness, paresthesia, syncope, dizziness Physical Exam General Appearance: no apparent distress, alert HEENT: atraumatic, anicteric, mucous membranes moist Neck: non-tender, normal alignment, supple Respiratory/Chest: lungs clear, normal breath sounds, no accessory muscle use Cardiovascular/Chest: normal peripheral pulses, normal rate, regular rhythm Abdomen: normal bowel sounds, non tender, soft Extremities: non-tender, normal inspection 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, no motor/sensory deficits Last 24 Hour Vital Signs Date Time Temp Pulse Resp B/P (MAP) Pulse Ox O2 Delivery O2 Flow Rate FiO2 06/11/18 08:40 143/59 06/11/18 08:36 71 143/59 06/11/18 08:36 143/59 06/11/18 08:35 71 143/59 06/11/18 08:00 98.0 71 19 143/59 (87) 95 06/11/18 06:23 153/65 06/11/18 04:00 98.0 71 19 153/65 (94) 94 06/11/18 03:05 Nasal Cannula 2.0 06/11/18 00:40 18 06/10/18 23:05 78 16 Nasal Cannula 2.0 06/10/18 21:40 97.9 78 18 146/58 99 Nasal Cannula 2.0 06/10/18 21:21 97.9 66 14 162/78 95 Nasal Cannula 4.0 Intake and Output 06/10/18 06/11/18 19:00 07:00 Intake Total 120 ml Balance 120 ml Intake Oral 120 ml # Voids 1 Laboratory Tests Test 06/10/18 21:50 06/11/18 08:00 White Blood Count 10.9 K/UL (4.8-10.8) H 8.4 K/UL (4.8-10.8) Red Blood Count 2.52 M/UL (4.20-5.40) L 2.28 M/UL (4.20-5.40) L Hemoglobin 7.6 G/DL (12.0-16.0) L 6.8 G/DL (12.0-16.0) *L Hematocrit 22.3 % (37.0-47.0) L 20.5 % (37.0-47.0) L Mean Corpuscular Volume 89 FL (80-99) 90 FL (80-99) Mean Corpuscular Hemoglobin 30.1 PG (27.0-31.0) 29.9 PG (27.0-31.0) Mean Corpuscular Hemoglobin Concent 33.9 G/DL (32.0-36.0) 33.1 G/DL (32.0-36.0) Red Cell Distribution Width 12.9 % (11.6-14.8) 13.4 % (11.6-14.8) Platelet Count 275 K/UL (150-450) 254 K/UL (150-450) Mean Platelet Volume 5.9 FL (6.5-10.1) L 6.3 FL (6.5-10.1) L Neutrophils (%) (Auto) % (45.0-75.0) % (45.0-75.0) Lymphocytes (%) (Auto) % (20.0-45.0) % (20.0-45.0) Monocytes (%) (Auto) % (1.0-10.0) % (1.0-10.0) Eosinophils (%) (Auto) % (0.0-3.0) % (0.0-3.0) Basophils (%) (Auto) % (0.0-2.0) % (0.0-2.0) Prothrombin Time 12.0 SEC (9.30-11.50) H Prothromb Time International Ratio 1.1 (0.9-1.1) Activated Partial Thromboplast Time 25 SEC (23-33) Sodium Level 135 MMOL/L (136-145) L Potassium Level 4.9 MMOL/L (3.5-5.1) Chloride Level 96 MMOL/L (98-107) L Carbon Dioxide Level 28 MMOL/L (21-32) Anion Gap 11 mmol/L (5-15) Blood Urea Nitrogen 44 mg/dL (7-18) H Creatinine 8.0 MG/DL (0.55-1.30) H Estimat Glomerular Filtration Rate 5.2 mL/min (>60) Glucose Level 104 MG/DL (74-106) Calcium Level 9.4 MG/DL (8.5-10.1) Neutrophils % (Manual) Pending Lymphocytes % (Manual) Pending Platelet Estimate Pending Iron Level Pending Unsaturated Iron Binding Pending Microbiology Date/Time Source Procedure Growth Status 06/11/18 00:23 Rectum Received Height (Feet): 5 Height (Inches): 4.00 Weight (Pounds): 228 Medications Current Medications Medications (Trade) Dose Ordered Sig/Gabriele Route PRN Reason Start Time Stop Time Status Last Admin Dose Admin Acetaminophen (Tylenol) 650 mg Q6H PRN ORAL Mild Pain/Temp > 100.5 06/11/18 02:45 07/11/18 02:44 Acetaminophen/ Hydrocodone Bitart ([place] 5/325) 1 tab Q4H PRN ORAL For Pain 06/11/18 02:30 06/18/18 02:29 Amlodipine Besylate (Norvasc) 10 mg DAILY ORAL 06/11/18 09:00 07/11/18 08:59 06/11/18 08:36 Atorvastatin Calcium (Lipitor) 40 mg BEDTIME ORAL 06/11/18 21:00 07/11/18 20:59 Bisacodyl (Dulcolax) 10 mg DAILY PRN RECTAL Constipation 06/11/18 09:00 07/11/18 08:59 Carvedilol (Coreg) 3.125 mg EVERY 12 HOURS ORAL 06/11/18 09:00 07/11/18 08:59 06/11/18 08:35 Cetylpyridinium Chloride (Cepacol) 1 lozg EVERY 2 HOURS PRN NATALIE For Cough 06/11/18 01:45 07/11/18 01:44 Clonidine HCl (Catapres tab) 0.2 mg BID ORAL 06/11/18 09:00 07/11/18 08:59 Dextrose (Dextrose 50%) 25 ml Q30M PRN IV Hypoglycemia 06/11/18 01:45 07/11/18 01:44 Dextrose (Dextrose 50%) 50 ml Q30M PRN IV Hypoglycemia 06/11/18 01:45 07/11/18 01:44 Docusate Sodium (Colace) 100 mg TWICE A DAY ORAL 06/11/18 09:00 07/11/18 08:59 06/11/18 08:36 Gabapentin (Neurontin) 300 mg BID ORAL 06/11/18 09:00 07/11/18 08:59 06/11/18 08:34 Hydralazine HCl (Apresoline) 50 mg EVERY 8 HOURS ORAL 06/11/18 06:00 07/11/18 05:59 06/11/18 06:23 Insulin Aspart (NovoLOG) BEFORE MEALS AND HS SUBQ 06/11/18 06:30 07/11/18 06:29 Ipratropium [place] (Atrovent) 500 mcg Q6H PRN HHN Shortness of Breath 06/11/18 02:30 06/16/18 02:29 Lactulose (Cephulac) 10 gm DAILY PRN ORAL Constipation 06/11/18 02:45 07/11/18 02:44 Levetiracetam (Keppra) 1,000 mg TWICE A DAY ORAL 06/11/18 09:00 07/11/18 08:59 06/11/18 08:34 Levothyroxine Sodium (Synthroid) 50 mcg ACBREAKFAST ORAL 4/23/19 06:30 07/11/18 06:29 06/11/18 06:23 Minoxidil (Loniten) 5 mg Q12HR ORAL 06/11/18 09:00 07/11/18 08:59 06/11/18 08:36 Polyethylene Glycol (Miralax) 17 gm DAILY ORAL 06/11/18 09:00 07/11/18 08:59 06/11/18 08:34 Quetiapine Fumarate (SEROquel) 400 mg BEDTIME ORAL 06/11/18 21:00 07/11/18 20:59 Salmeterol Xinafoate/ Fluticasone (Advair 250/50 Diskus) 1 puffs BIDRT INH 06/11/18 10:00 07/11/18 09:59 Sevelamer Carbonate (Renvela) 3,200 mg THREE TIMES A DAY ORAL 06/11/18 09:00 07/11/18 08:59 Sitagliptin Phosphate (Januvia) 25 mg DAILY ORAL 06/11/18 09:00 07/11/18 08:59 06/11/18 08:35 Vitamin B Complex/ Vit C/Folic Acid (Nephrovite) 1 tab DAILY ORAL 06/11/18 09:00 07/11/18 08:59 06/11/18 08:35 Assessment/Plan Treatment Plan: #Acute on chronic anemia #Anemia of ESRD #ESRD -admit to medical service -Patient may benefit from PRBC transfusion -Will check fecal occult blood -Consult Hematology -Consult Nephrology for HD treatments -monitor CBC and BMP -DAPT on hold #Chronic diastolic CHF #HTN #Hyperlipidemia -fluid management via HD -continue minoxidil, clonidine, Coreg, Norvasc and Lipitor #Type 2 DM #Obesity -continue Januvia -lispro SS #Epilepsy -continue Keppra #Bipolar and anxiety -continue Seroquel #Hypothyroidism -continue levothyroxine VTE PPx SCD Full Code I spent 70 minutes on this patient's case, and 35 minutes was dedicated to counseling and/or care coordination. Norman Cooper MD Jun 11, 2018 08:51
[2018-06-11] MEDS ORDERED: Heparin 5000 units/ml inj SUBQ SCH (09:00)
[2018-06-11] MEDS ORDERED: sitaGLIPtin 25mg tab ORAL SCH (09:00)
[2018-06-11] MEDS ORDERED: Renvela 2400 mg pkt ORAL SCH (09:00)
[2018-06-11] MEDS ORDERED: Levothyroxine 25mcg tab ORAL SCH (09:00)
[2018-06-11] MEDS ORDERED: Carvedilol 12.5mg tab ORAL SCH (09:00)
[2018-06-11] MEDS ORDERED: cloNIDine 0.2mg Tab ORAL SCH ×2 (09:00)
[2018-06-11] MEDS ORDERED: Docusate 100mg cap ORAL SCH (09:00)
[2018-06-11] MEDS ORDERED: Minoxidil 2.5mg tab ORAL SCH (09:00)
[2018-06-11 09:15] LABS: % IRON SATURATION 29 % (15-50); IRON 46 ug/dL (50-175); TOTAL IRON BINDING CAPACITY 157 ug/dL (250-450)
--- NOTE | 2018-06-11 09:16 | NUR ---
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 PHARYNGITIS ACUTE VS: BP 162/78, P 66, T 97.9, RR 14, SpO2 95 on 4.0L O2 NC WBC 10.9, RBC 2.52, Hgb 6.8, Hct 22.3 IS:LIDOCAINE HCI 10ml MYLANTA II 30ml ADMITTED TO MED/SURG DCP: RETURN TO [facility]
--- NOTE | 2018-06-11 09:22 | NUR ---
NURSE NOTES: Dr Dotson had been notified about the Hgb 6.8 and Htc 20.5. No new orders received. Primary RN notified
[2018-06-11] MEDS: Wixela 250/50 Inhaler - 60 dose INH SCH ×2 (10:00→22:00)
[2018-06-11 11:08] LABS: ANION GAP 13 mmol/L (5-15); BLOOD UREA NITROGEN 43 mg/dL (7-18); CARBON DIOXIDE 29 MMOL/L (21-32); CHLORIDE 95 MMOL/L (98-107); CREATININE 8.6 MG/DL (0.55-1.30); POTASSIUM 4.6 MMOL/L (3.5-5.1); SODIUM 136 MMOL/L (136-145)
[2018-06-11 11:25] LABS: ALANINE AMINOTRANSFERASE 28 U/L (12-78); ALBUMIN 2.5 G/DL (3.4-5.0); ALBUMIN/GLOBULIN RATIO 0.5 (1.0-2.7); ALKALINE PHOSPHATASE 119 U/L (46-116); ASPARTATE AMINO TRANSFERASE 18 U/L (15-37); BILIRUBIN,TOTAL 0.5 MG/DL (0.2-1.0); FERRITIN 514 NG/ML (8-388); PHOSPHORUS 6.2 MG/DL (2.5-4.9)
--- NOTE | 2018-06-11 12:36 | Consultation ---
Consult Note Consult Note asked to eval for dialysis management Chief Complaint: Abnormal Labs Source: Patient HPI This is a 52-year-old female with history of renal failure on hemodialysis. Hemodialysis days are Sunday, , and Sunday. She presents with chief complaint of anemia and sore throat. Her main complaint is sore throat and decreased hearing in her ears. Onset for last couple days. Worse with swallowing. Basic blood work was done and show hemoglobin of 6.6. USP note said generalize weakness but patient denies that. She denies being short of breath. No chest pain. No nausea no vomiting. Denies any other complaint. No Known Allergies (Verified , 08/23/06) Past Medical History: see triage record, old chart reviewed, HTN, CAD, COPD, renal disease, dialysis Past Medical History: No History, Except For Hx Cardiac Problems: Yes - palpitations Hx Hypertension: Yes Hx Diabetes: Yes Hx Gastrointestinal Problems: Yes Hx Dialysis: Yes - MWF interviewed patient states that was dialysed yesterday and due for tomorrow dialysis again right arm fistula Assessment/Plan - End-stage renal disease, on hemodialysis. - Symptomatic Anemia - Anemia of chronic kidney disease. - HTN / Pulmonary HTN - Diabetes type 2. -HypoThyroidism - Morbid obesity. - H/O Colon Cancer - H/O Hep C - H/O Depression and Bipolar disease - Psych disease uncoaporative --Bilateral leg numbness --diabetic neuropathy --L5-S1 disc protrusion Plan: Admit dialysis and transfusion Adjust BP and BS meds- HD in am per orders per psych Eamon Solis MD Jun 11, 2018 12:36
[2018-06-11 13:10] VITALS: BP 143/67
--- NOTE | 2018-06-11 13:10 | NUR ---
NURSE NOTES: Spoke to Gigi from [facility] dialysis. Informed an order for 06-12-18. Odilon called back and confirmed.
[2018-06-11] MEDS ORDERED: Minoxidil 2.5mg tab ORAL PRN (13:14)
--- NOTE | 2018-06-11 13:15 | NUR ---
nurse notes patient called stated wants to go down to have a fresh air, accompanied by HORTICULTURAL SERVICES SUPERVISOR called Dr Hawkins and stated ""no " Patient made aware but still wants to go home, Charge nurse aware regarding patient behavior nyla guido
[2018-06-11] MEDS: HydrALAZINE 50mg tab ORAL SCH ×2 (13:16→22:00)
[2018-06-11] MEDS: Docusate 100mg cap ORAL SCH ×2 (13:17→17:09)
--- NOTE | 2018-06-11 13:26 | NUR ---
nurse notes patient refused to sign consent for blood transfusion, stated i dont feel ok nyla guido
--- NOTE | 2018-06-11 14:00 | NUR ---
NURSE NOTES Patent made aware for HD martha , and needs to transfuse 2 Units PRBC , Needs consent to be signed patient refused to sign stated she will do it martha guido rn
--- NOTE | 2018-06-11 14:07 | Initial Psychiatric Evaluation ---
Psychiatry Consultation Psychiatry Consultation Chief Complaint: Abnormal Labs History of Present Illness: 57 year old female with hx of schizoaffective do, bipolar type, esrd on hd, diabetes, HTN, HL, chronic diastolic CHF, COPD, PVD, hypothyroidism,and CVA. the pt is labile and irritable. the pt has been noncompliant and refusing some of her meds/ the pt is attempting to leave the unit and smoke. the pt is easily agitated. the pt is not suicidal and has poor insight. Allergies: Coded Allergies: No Known Allergies (Verified , 08/23/06) Past Psychiatric History: as above no sa hx of psych hospt Medical History: as above Substance Abuse History: pain meds Medication History Scheduled Amlodipine Besylate* (Amlodipine Besylate*), 10 MG ORAL DAILY, (Reported) Aspirin* (Aspirin*), 81 MG ORAL DAILY, (Reported) Atorvastatin Calcium* (Atorvastatin Calcium*), 40 MG ORAL BEDTIME, (Reported) Bisacodyl (Dulcolax), 10 MG RC DAILY, (Reported) Carvedilol* (Carvedilol*), 12.5 MG ORAL EVERY 12 HOURS, (Reported) Clonidine Hcl (Clonidine Hcl), 0.2 MG PO BID, (Reported) Clopidogrel Bisulfate* (Plavix*), 75 MG ORAL DAILY, (Reported) Docusate Sodium* (Colace*), 100 MG ORAL TWICE A DAY, (Reported) Fluticasone/Salmeterol (Advair 500-50 Diskus), 1 PUFF INH EVERY 12 HOURS, ( Reported) Gabapentin (Neurontin), 300 MG ORAL BID, (Reported) Hydralazine HCl (Hydralazine HCl), 50 MG ORAL EVERY 8 HOURS, (Reported) Levetiracetam (Levetiracetam), 1,000 MG ORAL TWICE A DAY, (Reported) Levothyroxine Sodium (Synthroid), 50 MCG ORAL DAILY, (Reported) Minoxidil (Minoxidil), 2.5 MG ORAL BID, (Reported) Polyethylene Glycol 3350* (Miralax*), 17 GM ORAL DAILY, (Reported) Quetiapine Fumarate (Seroquel), 400 MG ORAL BEDTIME, (Reported) Sevelamer Hcl (Renagel), 800 MG ORAL THREE TIMES A DAY, (Reported) Sitagliptin* (Januvia*), 25 MG ORAL DAILY, (Reported) Vitamin B Cmplx/Vit C/Folic AC (Nephro-Denise Tablet), 1 TAB ORAL DAILY, (Reported ) Scheduled PRN Acetaminophen* (Acetaminophen 325MG Tablet*), 650 MG ORAL QID PRN for Pain Scale (3-5), (Reported) Hydrocodone Bit/Acetaminophen 5-325* ([place] 5-325*), 1 TAB ORAL Q4H PRN for For Pain, (Reported) Ipratropium [place] 0.5MG/2.5ML (Ipratropium [place] 0.5MG/2.5ML), 0.5 MG HHN Q6H PRN for Shortness of Breath, (Reported) Lactulose (Lactulose), 10 GM PO DAILY PRN for Constipation, (Reported) Discontinued Medications Clonazepam* (Klonopin*), 1 MG ORAL Q6H, (Reported) Discontinued Reason: Pt stopped taking med Patient History History Provided By: Patient, Medical Record, PMD Objective Data Height (Feet): 5 Height (Inches): 4.00 Weight (Pounds): 226 Appearance: disheveled Behavior Mannerisms: good eye contact Affect: blunted Mood: irritable, angry, anxious, agitated Thought Process: goal-directed Suicidal Ideation: not present Assessment/Plan Problem List: (1) Schizoaffective disorder, bipolar type ICD Codes: F25.0 - Schizoaffective disorder, bipolar type SNOMED: 93117797 (2) MDD (major depressive disorder), recurrent episode, moderate ICD Codes: F33.1 - Major depressive disorder, recurrent, moderate SNOMED: 34344068, [id number] Treatment Plan: seroquel 400mg po qhs ativan prn depakote 500mg po qhs Blanka Beckett MD Jun 11, 2018 14:07
[2018-06-11] MEDS: LORazepam 1mg tab ORAL PRN (14:59)
--- NOTE | 2018-06-11 15:39 | NUR ---
NURSE NOTES Patient very agitated and upset wants to go down, ativan given , on fall precaution observed CHEPE guido
[2018-06-11 16:15] VITALS: BP 140/62
--- NOTE | 2018-06-11 19:08 | NUR ---
HAND-OFF: Report given to CHEPE Lee.
--- NOTE | 2018-06-11 19:30 | NUR ---
NURSE NOTES: Received a report from CHEPE Zafar. Pt is in stable condition. AAOX4. Able to make needs known. No c/o pain/discomfort. IV site is patent and intact. AV shunt on R upper arm. Bed in lowest position. Side rails of the bed are both down, pt refused the side rails to be up. She is also refusing the side rails to be padded. Doctors are all aware. Charge Nurse David made aware.
[2018-06-11 20:00] VITALS: BP 154/61
[2018-06-11] MEDS: Depakote ER 500mg tab ORAL SCH ×2 (21:00→21:41)
[2018-06-11] MEDS ORDERED: QUEtiapine 200mg tab ORAL SCH (21:00)
[2018-06-11] MEDS: QUEtiapine 200mg tab ORAL SCH (21:40)
[2018-06-11] MEDS: Atorvastatin 80mg tab ORAL SCH (21:41)
[2018-06-12] VITALS (9 sets, daily range): BP systolic 127–197; BP diastolic 61–95
[2018-06-12] MEDS: HydrALAZINE 50mg tab ORAL SCH ×3 (06:00→20:31)
[2018-06-12] MEDS: NovoLOG Insulin Flexpen SUBQ SCH ×4 (06:20→21:00)
[2018-06-12 07:09] LABS: HEMATOCRIT 20.4 % (37.0-47.0); MEAN CORPUSCULAR VOLUME 90 FL (80-99); PLATELET COUNT 252 K/UL (150-450); RED BLOOD COUNT 2.25 M/UL (4.20-5.40); WHITE BLOOD COUNT 7.5 K/UL (4.8-10.8)
[2018-06-12 07:15] LABS: HEMOGLOBIN 6.6 G/DL (12.0-16.0)
--- NOTE | 2018-06-12 07:20 | NUR ---
HAND-OFF: Report given to CHEPE Rausch.
--- NOTE | 2018-06-12 07:23 | NUR ---
NURSE NOTES: Received patient from Rosa MO, no distress noted, patient is sleeping in bed, bed is locked and in lowest position, call light within reach, Hgb reported from lab as 6.8, made aware, previous transfusion order in place, patient currently refusing to sign blood transfusion consent, will continue to monitor.
[2018-06-12 07:42] LABS: ALANINE AMINOTRANSFERASE 24 U/L (12-78); ALBUMIN 2.4 G/DL (3.4-5.0); ALBUMIN/GLOBULIN RATIO 0.5 (1.0-2.7); ALKALINE PHOSPHATASE 111 U/L (46-116); ANION GAP 13 mmol/L (5-15); ASPARTATE AMINO TRANSFERASE 16 U/L (15-37); BILIRUBIN,TOTAL 0.5 MG/DL (0.2-1.0); BLOOD UREA NITROGEN 54 mg/dL (7-18); CALCIUM 8.9 MG/DL (8.5-10.1); CARBON DIOXIDE 26 MMOL/L (21-32); CHLORIDE 94 MMOL/L (98-107); CHOLESTEROL 131 MG/DL (< 200); CREATINE KINASE 124 U/L (26-308); CREATININE 9.8 MG/DL (0.55-1.30); GAMMA GLUTAMYL TRANSPEPTIDASE 28 U/L (5-85); HDL CHOLESTEROL 26 MG/DL (40-60); POTASSIUM 4.9 MMOL/L (3.5-5.1); SODIUM 133 MMOL/L (136-145); TRIGLYCERIDES 142 MG/DL (30-150)
[2018-06-12] MEDS: Docusate 100mg cap ORAL SCH ×3 (09:06→18:14)
[2018-06-12] MEDS: Nephrovite tab (Rena-Vite) ORAL SCH (09:06)
[2018-06-12] MEDS: Miralax 17gm pkt ORAL SCH (09:06)
[2018-06-12] MEDS: sitaGLIPtin 25mg tab ORAL SCH (09:06)
[2018-06-12] MEDS: Wixela 250/50 Inhaler - 60 dose INH SCH ×2 (09:51→20:52)
--- NOTE | 2018-06-12 12:48 | Discharge Summary ---
Discharge Summary Hospital Course Date of Admission Jun 10, 2018 at 23:21 Date of Discharge 06/12 Admitting Diagnosis ANEMIA HPI Cris Zuluaga is a 57 year old female who was admitted on Jun 10, 2018 at 23:21 for Anemia Hospital Course #Acute on chronic anemia #Anemia of ESRD #ESRD -s/p PRBC transfusion during HD -No ative bleeding noted, patient did not provide stool sample to check for occult blood -resume DAPT -[facility]charge back to [facility] #Chronic diastolic CHF #HTN #Hyperlipidemia -fluid management via HD -continue minoxidil, clonidine, Coreg, Norvasc and Lipitor #Type 2 DM #Obesity -continue Januvia -lispro SS #Epilepsy -continue Keppra #Bipolar and anxiety -continue Seroquel #Hypothyroidism -continue levothyroxine Discharge Condition Upon Discharge: stable Discharge Disposition Patient was discharged to Norman Cooper MD Jun 12, 2018 12:48
--- NOTE | 2018-06-12 12:52 | NUR ---
*-* DISCAHRGE PLANNING *-* PATIENT HAS BEEN REFERRED BACK TO: [facility] P:[phone] F:[phone]
--- NOTE | 2018-06-12 14:02 | Nephrology Progress Note ---
Assessment/Plan Problem List: (1) ESRD (end stage renal disease) on dialysis (2) Anemia in chronic renal disease (3) Symptomatic anemia (4) Schizoaffective disorder, bipolar type (5) Hypothyroidism (6) Seizure disorder Assessment - End-stage renal disease, on hemodialysis. - Symptomatic Anemia - Anemia of chronic kidney disease. - HTN / Pulmonary HTN - Diabetes type 2. -HypoThyroidism - Morbid obesity. - H/O Colon Cancer - H/O Hep C - H/O Depression and Bipolar disease - Psych disease uncoaporative --Bilateral leg numbness --diabetic neuropathy --L5-S1 disc protrusion Plan Plan: dialysis and transfusion today Adjust BP and BS meds- HD today per orders per psych Subjective ROS Limited/Unobtainable: No Constitutional: Reports: malaise Objective Objective Last 24 Hour Vital Signs Date Time Temp Pulse Resp B/P (MAP) Pulse Ox O2 Delivery O2 Flow Rate FiO2 06/12/18 12:00 98.1 72 18 179/71 (107) 98 06/12/18 09:51 74 18 96 21 06/12/18 09:51 Room Air 21 06/12/18 09:48 97.4 06/12/18 08:00 Room Air 06/12/18 08:00 97.3 69 20 150/75 (100) 100 06/12/18 03:52 97.4 68 18 127/95 (106) 98 06/11/18 22:23 Room Air 06/11/18 22:02 Room Air 21 06/11/18 22:01 Room Air 21 06/11/18 21:40 68 154/61 06/11/18 20:00 98.2 68 20 154/61 (92) 98 06/11/18 16:15 97.8 71 18 140/62 (88) 95 Intake and Output 06/11/18 06/12/18 18:59 06:59 Intake Total 360 ml Balance 360 ml Intake Oral 360 ml # Voids 4 2 Laboratory Tests 06/12/18 06:44: White Blood Count 7.5, Red Blood Count 2.25L, Hemoglobin 6.6*L, Hematocrit 20.4L , Mean Corpuscular Volume 90, Mean Corpuscular Hemoglobin 29.5, Mean Corpuscular Hemoglobin Concent 32.6, Red Cell Distribution Width 13.0, Platelet Count 252, Mean Platelet Volume 6.8, Neutrophils (%) (Auto) , Lymphocytes (%) ( Auto) , Monocytes (%) (Auto) , Eosinophils (%) (Auto) , Basophils (%) (Auto) , Differential Total Cells Counted 100, Neutrophils % (Manual) 63, Lymphocytes % ( Manual) 23, Monocytes % (Manual) 8, Eosinophils % (Manual) 5H, Basophils % ( Manual) 1, Band Neutrophils 0, Platelet Estimate Adequate, Platelet Morphology Normal, Hypochromasia 1+, Sodium Level 133L, Potassium Level 4.9, Chloride Level 94L, Carbon Dioxide Level 26, Anion Gap 13, Blood Urea Nitrogen 54H, Creatinine 9.8H, Estimat Glomerular Filtration Rate 4.1, Glucose Level 79, Hemoglobin A1c 5.6, Uric Acid 6.1, Calcium Level 8.9, Phosphorus Level 7.0H, Magnesium Level 2.0, Total Bilirubin 0.5, Gamma Glutamyl Transpeptidase 28, Aspartate Amino Transf (AST/SGOT) 16, Alanine Aminotransferase (ALT/SGPT) 24, Alkaline Phosphatase 111, Total Creatine Kinase 124, Troponin I 0.015, C- Reactive Protein, Quantitative 4.8H, Pro-B-Type Natriuretic Peptide > 51269S, Total Protein 6.8, Albumin 2.4L, Globulin 4.4, Albumin/Globulin Ratio 0.5L, Triglycerides Level 142, Cholesterol Level 131, LDL Cholesterol 80, HDL Cholesterol 26L, Cholesterol/HDL Ratio 5.0H, Thyroid Stimulating Hormone (TSH) 4.714H Height (Feet): 5 Height (Inches): 4.00 Weight (Pounds): 225 General Appearance: no apparent distress Neck: limited range of motion Cardiovascular: normal rate Respiratory/Chest: decreased breath sounds Abdomen: distended Eamon Solis MD Jun 12, 2018 14:02
[2018-06-12] MEDS ORDERED: D5 1/2NS 1000ml IV ONE (17:22)
--- NOTE | 2018-06-12 19:30 | NUR ---
NURSE NOTES: Patient in bed, alert and oriented x4, no complaints of pain at this time. Instructed the use of call light. Call light and needs in reach. Bed in lowest position and lock engaged. Will continue to monitor.
--- NOTE | 2018-06-12 19:36 | NUR ---
HAND-OFF: Report given to Pam OM.
--- NOTE | 2018-06-12 20:20 | NUR ---
NURSE NOTES: Patient is for discharge. Report given to darren Melo supervisor of [facility]. Report given to ambulance personnel. Belongings checked and signed by patient.
--- NOTE | 2018-06-12 21:18 | Psych Consult Progress Note ---
Psychiatry Progress Note Psychiatry Progress Note Subjective the pt is angry and has inappropriate anger. the pt is abusive towards staff less agitated today signed the consent form Medications Current Medications Medications (Trade) Dose Ordered Sig/Gabriele Route PRN Reason Start Time Stop Time Status Last Admin Dose Admin Acetaminophen (Tylenol) 650 mg Q6H PRN ORAL Mild Pain/Temp > 100.5 06/11/18 02:45 07/11/18 02:44 Acetaminophen/ Hydrocodone Bitart ([place] 5/325) 1 tab Q4H PRN ORAL For Pain 06/11/18 02:30 06/18/18 02:29 06/12/18 09:18 Amlodipine Besylate (Norvasc) 10 mg DAILY ORAL 06/11/18 09:00 07/11/18 08:59 06/11/18 08:36 Atorvastatin Calcium (Lipitor) 40 mg BEDTIME ORAL 06/11/18 21:00 07/11/18 20:59 06/11/18 21:41 Bisacodyl (Dulcolax) 10 mg DAILY PRN RECTAL Constipation 06/11/18 09:00 07/11/18 08:59 Carvedilol (Coreg) 3.125 mg EVERY 12 HOURS ORAL 06/11/18 09:00 07/11/18 08:59 06/11/18 21:40 Cetylpyridinium Chloride (Cepacol) 1 lozg EVERY 2 HOURS PRN NATALIE For Cough 06/11/18 01:45 07/11/18 01:44 06/12/18 20:31 Clonidine HCl (Catapres Tab) 0.1 mg Q8HR ORAL 06/11/18 14:00 07/11/18 08:59 06/11/18 13:17 Dextrose (Dextrose 50%) 25 ml Q30M PRN IV Hypoglycemia 06/11/18 01:45 07/11/18 01:44 Dextrose (Dextrose 50%) 50 ml Q30M PRN IV Hypoglycemia 06/11/18 01:45 07/11/18 01:44 Divalproex Sodium (Depakote ER) 500 mg BEDTIME ORAL 06/11/18 21:00 07/11/18 20:59 Docusate Sodium (Colace) 100 mg TID ORAL 06/11/18 13:00 07/11/18 08:59 06/12/18 18:14 Gabapentin (Neurontin) 300 mg BID ORAL 06/11/18 09:00 07/11/18 08:59 06/12/18 18:14 Hydralazine HCl (Apresoline) 50 mg EVERY 8 HOURS ORAL 06/11/18 14:00 07/11/18 05:59 06/12/18 20:31 Insulin Aspart (NovoLOG) BEFORE MEALS AND HS SUBQ 06/11/18 06:30 07/11/18 06:29 06/12/18 12:09 Ipratropium [place] (Atrovent) 500 mcg Q6H PRN HHN Shortness of Breath 06/11/18 02:30 06/16/18 02:29 Lactulose (Cephulac) 10 gm DAILY PRN ORAL Constipation 06/11/18 02:45 07/11/18 02:44 Levetiracetam (Keppra) 1,000 mg TWICE A DAY ORAL 06/11/18 09:00 07/11/18 08:59 06/12/18 18:14 Levothyroxine Sodium (Synthroid) 50 mcg ACBREAKFAST ORAL 06/11/18 06:30 07/11/18 06:29 06/11/18 06:23 Lorazepam (Ativan) 1 mg Q6H PRN ORAL For Anxiety 06/11/18 14:13 06/18/18 14:12 06/11/18 14:59 Minoxidil (Loniten) 2.5 mg Q4H PRN ORAL bp over 165 syst 06/11/18 13:14 07/11/18 13:13 06/12/18 20:14 Polyethylene Glycol (Miralax) 17 gm DAILY ORAL 06/11/18 09:00 07/11/18 08:59 06/12/18 09:06 Quetiapine Fumarate (SEROquel) 400 mg BEDTIME ORAL 06/11/18 21:00 07/11/18 20:59 06/11/18 21:40 Salmeterol Xinafoate/ Fluticasone (Advair 250/50 Diskus) 1 puffs BIDRT INH 06/11/18 10:00 07/11/18 09:59 06/12/18 20:52 Sevelamer Carbonate (Renvela) 3,200 mg THREE TIMES A DAY ORAL 06/11/18 09:00 07/11/18 08:59 06/12/18 09:06 Sitagliptin Phosphate (Januvia) 25 mg DAILY ORAL 06/11/18 09:00 07/11/18 08:59 06/12/18 09:06 Vitamin B Complex/ Vit C/Folic Acid (Nephrovite) 1 tab DAILY ORAL 06/11/18 09:00 07/11/18 08:59 06/12/18 09:06 Allergies: Coded Allergies: No Known Allergies (Verified , 08/23/06) Objective Data Height (Feet): 5 Height (Inches): 4.00 Weight (Pounds): 225 General Appearance: alert, moderate distress, agitated, obese, alert oriented x3 Appearance: disheveled Behavior Mannerisms: good eye contact Mental Status Exam - Affect: blunted Mental Status Exam - Mood: irritable, angry, anxious, agitated Mental Status Exam - Thought P: illogical Mental Status Exam - Thought C: no abnormalities Mental Status Exam - Suicidal: no plan Assessment/Plan Problem List: (1) Schizoaffective disorder, bipolar type ICD Codes: F25.0 - Schizoaffective disorder, bipolar type SNOMED: 86633116 (2) MDD (major depressive disorder), recurrent episode, moderate ICD Codes: F33.1 - Major depressive disorder, recurrent, moderate SNOMED: 57557346, 070708240 Status: unchanged Assessment/Plan: seroquel 400mg po qhs ativan prn depakote 500mg po qhs Blanka Beckett MD Jun 12, 2018 21:18
[2018-06-12] MEDS: Depakote ER 500mg tab ORAL SCH (21:40)
[2018-06-12] MEDS: Atorvastatin 80mg tab ORAL SCH (21:41)
[2018-06-12] MEDS: QUEtiapine 200mg tab ORAL SCH (21:41)
[2018-06-12] MEDS ORDERED: Lisinopril 10mg tab ORAL ONE (22:45)
--- NOTE | 2018-06-12 22:45 | NUR ---
NURSE NOTES: Spoke with Dr. Solis about patient's increased blood pressure. Order obtained for additional 1 dose of Catapres 0.1mg, once. Given. And keep patient for the night. Will keep monitoring the patient.
--- NOTE | 2018-06-12 23:40 | NUR ---
NURSE NOTES: Lorie garcía Stringer made aware by Charge nurse Teetee. Ambulance left and RN to call once patient is stable to transfer.
[2018-06-13] VITALS: BP 193/83
[2018-06-13] MEDS: LORazepam 1mg tab ORAL PRN (00:20)
[2018-06-13] MEDS ORDERED: Minoxidil 2.5mg tab ORAL PRN (01:14)
--- NOTE | 2018-06-13 01:48 | NUR ---
NURSE NOTES: Received a call from [facility], pt is positive for MRSA. Called Dr. Rudolph and spoke to exchange. He attempted to call covering physician but no answer, left message.
[2018-06-13 04:00] VITALS: BP 129/63
--- NOTE | 2018-06-13 05:13 | NUR ---
NURSE NOTES: Attempted to check patient's blood sugar but patient doesn't give her hand to RN. Instead, she took the lancet like she was going to do it herself but attempted to prick RN.
[2018-06-13] MEDS: HydrALAZINE 50mg tab ORAL SCH ×2 (05:39→14:07)
[2018-06-13] MEDS: NovoLOG Insulin Flexpen SUBQ SCH ×3 (05:40→16:30)
--- NOTE | 2018-06-13 07:22 | NUR ---
HAND-OFF: Report given to CHEPE Anaya.
--- NOTE | 2018-06-13 08:00 | NUR ---
NURSE NOTES: Patient alert respiration are unlabored.shunt to the right arm with strong bruit and thrill,patient sitting up and eating breakfast no complaints atthis time,call light reach.
[2018-06-13 08:48] VITALS: BP 174/71
[2018-06-13] MEDS: Miralax 17gm pkt ORAL SCH (09:00)
[2018-06-13] MEDS ORDERED: Lisinopril 10mg tab ORAL SCH ×2 (09:00→11:00)
[2018-06-13] MEDS: Docusate 100mg cap ORAL SCH ×2 (09:09→14:07)
[2018-06-13] MEDS: sitaGLIPtin 25mg tab ORAL SCH (09:11)
[2018-06-13] MEDS: Nephrovite tab (Rena-Vite) ORAL SCH (09:12)
[2018-06-13] MEDS: Wixela 250/50 Inhaler - 60 dose INH SCH (10:05)
[2018-06-13] MEDS ORDERED: Carvedilol 12.5mg tab ORAL SCH (10:55)
--- NOTE | 2018-06-13 10:55 | NUR ---
RD ASSESSMENT & RECOMMENDATIONS SEE CARE ACTIVITY FOR COMPLETE ASSESSMENT DAILY ESTIMATED NEEDS: Needs based on ESRD on HD, obese 65.6kg Adj 25-30 kcals/kg [id number] total kcals 1.2-1.8 g protein/kg 79-118 g total protein Fluid per MD, on HD NUTRITION DIAGNOSIS: *Increased protein needs r/t renal dysfunction, wound healing as evidenced by pt with esrd on HD, admitted w/ lt 4th toe wound and rt great toe wound, refer to wound care eval. *Altered nutrition related lab values R/T ESRD, altered lipid metabolism as evidenced by critically low Hgb (6.6*), elev creat (9.8), elev phos (7.0), elev BNP (>07021). CURRENT DIET: CCHO MED, RENAL PO DIET RECOMMENDATIONS: RENAL DIET ADDITIONAL RECOMMENDATIONS: * Calibrated bedscale wt post HD/ standing wt preferred * Nepro qdaily w/ variable po intake * monitor Bg, need for niss -
[2018-06-13 11:33] LABS: BASOPHILS % (AUTO) 1.2 % (0.0-2.0); HEMATOCRIT 27.1 % (37.0-47.0); HEMOGLOBIN 9.1 G/DL (12.0-16.0); LYMPHOCYTES % (AUTO) 11.7 % (20.0-45.0); MEAN CORPUSCULAR VOLUME 88 FL (80-99); MONOCYTES % (AUTO) 8.3 % (1.0-10.0); NEUTROPHILS % (AUTO) 73.9 % (45.0-75.0); PLATELET COUNT 269 K/UL (150-450); RED BLOOD COUNT 3.09 M/UL (4.20-5.40); RED CELL DISTRIBUTION WIDTH 12.9 % (11.6-14.8); WHITE BLOOD COUNT 8.2 K/UL (4.8-10.8)
[2018-06-13 12:11] VITALS: BP 157/71
--- NOTE | 2018-06-13 12:44 | Psych Consult Progress Note ---
Psychiatry Progress Note Psychiatry Progress Note Subjective the pt cont to ask to the lobby and smoke the pt has no insight Medications Current Medications Medications (Trade) Dose Ordered Sig/Gabriele Route PRN Reason Start Time Stop Time Status Last Admin Dose Admin Acetaminophen (Tylenol) 650 mg Q6H PRN ORAL Mild Pain/Temp > 100.5 06/11/18 02:45 07/11/18 02:44 Acetaminophen/ Hydrocodone Bitart ([place] 5/325) 1 tab Q4H PRN ORAL For Pain 06/11/18 02:30 06/18/18 02:29 06/12/18 09:18 Amlodipine Besylate (Norvasc) 10 mg DAILY ORAL 06/11/18 09:00 07/11/18 08:59 06/13/18 09:13 Atorvastatin Calcium (Lipitor) 40 mg BEDTIME ORAL 06/11/18 21:00 07/11/18 20:59 06/12/18 21:41 Bisacodyl (Dulcolax) 10 mg DAILY PRN RECTAL Constipation 06/11/18 09:00 07/11/18 08:59 Carvedilol (Coreg) 25 mg EVERY 12 HOURS ORAL 06/13/18 21:00 07/11/18 08:59 Cetylpyridinium Chloride (Cepacol) 1 lozg EVERY 2 HOURS PRN NATALIE For Cough 06/11/18 01:45 07/11/18 01:44 06/12/18 20:31 Clonidine HCl (Catapres Tab) 0.1 mg Q8HR ORAL 06/11/18 14:00 07/11/18 08:59 06/12/18 21:41 Dextrose (Dextrose 50%) 25 ml Q30M PRN IV Hypoglycemia 06/11/18 01:45 07/11/18 01:44 Dextrose (Dextrose 50%) 50 ml Q30M PRN IV Hypoglycemia 06/11/18 01:45 07/11/18 01:44 Divalproex Sodium (Depakote ER) 500 mg BEDTIME ORAL 06/11/18 21:00 07/11/18 20:59 06/12/18 21:40 Docusate Sodium (Colace) 100 mg TID ORAL 06/11/18 13:00 07/11/18 08:59 06/13/18 09:09 Gabapentin (Neurontin) 300 mg BID ORAL 06/11/18 09:00 07/11/18 08:59 06/13/18 09:12 Hydralazine HCl (Apresoline) 75 mg EVERY 8 HOURS ORAL 06/13/18 06:00 07/11/18 05:59 Insulin Aspart (NovoLOG) BEFORE MEALS AND HS SUBQ 06/11/18 06:30 07/11/18 06:29 06/12/18 12:09 Ipratropium [place] (Atrovent) 500 mcg Q6H PRN HHN Shortness of Breath 06/11/18 02:30 06/16/18 02:29 Lactulose (Cephulac) 10 gm DAILY PRN ORAL Constipation 06/11/18 02:45 07/11/18 02:44 Levetiracetam (Keppra) 1,000 mg TWICE A DAY ORAL 06/11/18 09:00 07/11/18 08:59 06/13/18 09:11 Levothyroxine Sodium (Synthroid) 50 mcg ACBREAKFAST ORAL 06/11/18 06:30 07/11/18 06:29 06/11/18 06:23 Lisinopril (Prinivil) 20 mg BID ORAL 06/13/18 18:00 07/13/18 08:59 Lisinopril (Zestril) 10 mg ONCE ORAL 06/13/18 11:00 06/13/18 13:00 06/13/18 12:16 Lorazepam (Ativan) 1 mg Q6H PRN ORAL For Anxiety 06/11/18 14:13 06/18/18 14:12 06/13/18 00:20 Minoxidil (Loniten) 5 mg Q4H PRN ORAL bp over 165 syst 06/13/18 01:14 07/11/18 13:13 06/13/18 00:19 Polyethylene Glycol (Miralax) 17 gm DAILY ORAL 06/11/18 09:00 07/11/18 08:59 06/12/18 09:06 Quetiapine Fumarate (SEROquel) 400 mg BEDTIME ORAL 06/11/18 21:00 07/11/18 20:59 06/12/18 21:41 Salmeterol Xinafoate/ Fluticasone (Advair 250/50 Diskus) 1 puffs BIDRT INH 06/11/18 10:00 07/11/18 09:59 06/13/18 10:05 Sevelamer Carbonate (Renvela) 3,200 mg THREE TIMES A DAY ORAL 06/11/18 09:00 07/11/18 08:59 06/12/18 09:06 Sitagliptin Phosphate (Januvia) 25 mg DAILY ORAL 06/11/18 09:00 07/11/18 08:59 06/13/18 09:11 Vitamin B Complex/ Vit C/Folic Acid (Nephrovite) 1 tab DAILY ORAL 06/11/18 09:00 07/11/18 08:59 06/13/18 09:12 Allergies: Coded Allergies: No Known Allergies (Verified , 08/23/06) Objective Data Height (Feet): 5 Height (Inches): 4.00 Weight (Pounds): 215 General Appearance: alert, moderate distress, agitated, obese Appearance: disheveled Behavior Mannerisms: poor eye contact Mental Status Exam - Affect: constricted Mental Status Exam - Mood: depressed, irritable, anxious Mental Status Exam - Suicidal: not present Assessment/Plan Problem List: (1) Schizoaffective disorder, bipolar type ICD Codes: F25.0 - Schizoaffective disorder, bipolar type SNOMED: 04534876 (2) MDD (major depressive disorder), recurrent episode, moderate ICD Codes: F33.1 - Major depressive disorder, recurrent, moderate SNOMED: 05739109, [id number] Status: unchanged Assessment/Plan: seroquel 400mg po qhs ativan prn depakote 500mg po qhs Blanka Beckett MD Jun 13, 2018 12:44
[2018-06-13 14:14] VITALS: BP 145/67
--- NOTE | 2018-06-13 14:34 | General Progress Note ---
Assessment/Plan Status: unchanged Assessment/Plan: #Acute on chronic anemia #Anemia of ESRD #ESRD -s/p PRBC transfusion during HD -repeat H&H much improved -Stable for discharge to SNF #Chronic diastolic CHF #HTN #Hyperlipidemia -fluid management via HD -continue minoxidil, clonidine, Coreg, Norvasc and Lipitor #Type 2 DM #Obesity -continue Januvia -lispro SS #Epilepsy -continue Keppra #Bipolar and anxiety -continue Seroquel #Hypothyroidism -continue levothyroxine Subjective Date patient seen: Jun 13, 2018 Time patient seen: 13:35 Cardiovascular: Denies: chest pain Respiratory: Denies: cough Gastrointestinal/Abdominal: Denies: abdomen distended Allergies: Coded Allergies: No Known Allergies (Verified , 08/23/06) Subjective Medicine follow up for acute on chronic anemia,s/p PRBC transfusion during HD yesterday. Hearing loss improved. Unclear why patient was not discharged to [facility]T yesterday. No acute medical events overnight, Objective Last 24 Hour Vital Signs Date Time Temp Pulse Resp B/P (MAP) Pulse Ox O2 Delivery O2 Flow Rate FiO2 06/13/18 14:14 66 145/67 (93) 06/13/18 14:08 145/67 06/13/18 14:07 145/67 06/13/18 12:16 157/71 06/13/18 12:12 68 157/71 06/13/18 12:11 96.0 68 18 157/71 (99) 06/13/18 12:00 06/13/18 10:07 71 19 93 Room Air 21 06/13/18 10:05 71 17 92 Room Air 21 06/13/18 09:14 174/71 06/13/18 09:13 75 174/71 06/13/18 09:10 75 174/71 06/13/18 09:00 Room Air 06/13/18 08:48 98.1 75 18 174/71 (105) 06/13/18 04:00 97.4 71 18 129/63 (85) 95 06/13/18 00:19 193/83 06/13/18 00:00 98.2 80 18 193/83 (119) 95 06/12/18 22:55 191/93 06/12/18 22:55 191/93 06/12/18 22:20 194/84 (120) 06/12/18 21:41 191/93 06/12/18 21:40 80 191/93 06/12/18 21:30 191/85 (120) 06/12/18 21:00 193/83 (119) 06/12/18 21:00 Room Air 06/12/18 20:53 80 18 95 Room Air 21 06/12/18 20:51 80 18 95 Room Air 21 06/12/18 20:31 191/93 06/12/18 20:30 191/90 (123) 06/12/18 20:14 191/93 06/12/18 20:00 98.1 81 18 197/86 (123) 94 06/12/18 16:00 98.1 72 19 152/61 (91) 100 Intake and Output 06/12/18 06/13/18 19:00 07:00 Intake Total 600 ml Output Total 2000 ml 0 ml Balance -1400 ml 0 ml Intake Oral 600 ml Output Urine Total 0 ml Hemodialysis UF 2000 ml Laboratory Tests 06/13/18 11:10: White Blood Count 8.2, Red Blood Count 3.09L, Hemoglobin 9.1#L, Hematocrit 27.1# L, Mean Corpuscular Volume 88, Mean Corpuscular Hemoglobin 29.5, Mean Corpuscular Hemoglobin Concent 33.6, Red Cell Distribution Width 12.9, Platelet Count 269, Mean Platelet Volume 7.0, Neutrophils (%) (Auto) 73.9, Lymphocytes (% ) (Auto) 11.7L, Monocytes (%) (Auto) 8.3, Eosinophils (%) (Auto) 5.0H, Basophils (%) (Auto) 1.2 Height (Feet): 5 Height (Inches): 4.00 Weight (Pounds): 215 General Appearance: alert EENT: pharynx normal Neck: non-tender, supple Cardiovascular: normal rate, regular rhythm Respiratory/Chest: lungs clear Abdomen: non tender Norman Cooper MD Jun 13, 2018 14:34
--- NOTE | 2018-06-13 14:55 | Nephrology Progress Note ---
Assessment/Plan Problem List: (1) ESRD (end stage renal disease) on dialysis (2) Anemia in chronic renal disease (3) Symptomatic anemia (4) Schizoaffective disorder, bipolar type (5) Hypothyroidism (6) Seizure disorder Assessment - End-stage renal disease, on hemodialysis. - Symptomatic Anemia - Anemia of chronic kidney disease. - HTN / Pulmonary HTN - Diabetes type 2. -HypoThyroidism - Morbid obesity. - H/O Colon Cancer - H/O Hep C - H/O Depression and Bipolar disease - Psych disease uncoaporative --Bilateral leg numbness --diabetic neuropathy --L5-S1 disc protrusion Plan Plan: dialysis and transfusion 06/12 Adjust BP and BS meds- HD 06/12 per orders per psych PK to DC and fu with OP dialysis M W Fr Subjective ROS Limited/Unobtainable: No Constitutional: Reports: malaise Objective Objective Last 24 Hour Vital Signs Date Time Temp Pulse Resp B/P (MAP) Pulse Ox O2 Delivery O2 Flow Rate FiO2 06/13/18 14:14 66 145/67 (93) 06/13/18 14:08 145/67 06/13/18 14:07 145/67 06/13/18 12:16 157/71 06/13/18 12:12 68 157/71 06/13/18 12:11 96.0 68 18 157/71 (99) 06/13/18 12:00 06/13/18 10:07 71 19 93 Room Air 21 06/13/18 10:05 71 17 92 Room Air 21 06/13/18 09:14 174/71 06/13/18 09:13 75 174/71 06/13/18 09:10 75 174/71 06/13/18 09:00 Room Air 06/13/18 08:48 98.1 75 18 174/71 (105) 06/13/18 04:00 97.4 71 18 129/63 (85) 95 06/13/18 00:19 193/83 06/13/18 00:00 98.2 80 18 (119) 95 06/12/18 22:55 06/12/18 22:55 06/12/18 22:20 194/84 (120) 06/12/18 21:41 06/12/18 21:40 80 06/12/18 21:30 191/85 (120) 06/12/18 21:00 193/83 (119) 06/12/18 21:00 Room Air 06/12/18 20:53 80 18 95 Room Air 21 06/12/18 20:51 80 18 95 Room Air 21 06/12/18 20:31 191/93 06/12/18 20:30 191/90 (123) 06/12/18 20:14 191/93 06/12/18 20:00 98.1 81 18 197/86 (123) 94 06/12/18 16:00 98.1 72 19 152/61 (91) 100 Intake and Output 06/12/18 06/13/18 19:00 07:00 Intake Total 600 ml Output Total 2000 ml 0 ml Balance -1400 ml 0 ml Intake Oral 600 ml Output Urine Total 0 ml Hemodialysis UF 2000 ml Current Medications Medications (Trade) Dose Ordered Sig/Gabriele Route PRN Reason Start Time Stop Time Status Last Admin Dose Admin Acetaminophen (Tylenol) 650 mg Q6H PRN ORAL Mild Pain/Temp > 100.5 06/11/18 02:45 07/11/18 02:44 Acetaminophen/ Hydrocodone Bitart ([place] 5/325) 1 tab Q4H PRN ORAL For Pain 06/11/18 02:30 06/18/18 02:29 06/12/18 09:18 Amlodipine Besylate (Norvasc) 10 mg DAILY ORAL 06/11/18 09:00 07/11/18 08:59 06/13/18 09:13 Atorvastatin Calcium (Lipitor) 40 mg BEDTIME ORAL 06/11/18 21:00 07/11/18 20:59 06/12/18 21:41 Bisacodyl (Dulcolax) 10 mg DAILY PRN RECTAL Constipation 06/11/18 09:00 07/11/18 08:59 Carvedilol (Coreg) 25 mg EVERY 12 HOURS ORAL 06/13/18 21:00 07/11/18 08:59 Cetylpyridinium Chloride (Cepacol) 1 lozg EVERY 2 HOURS PRN NATALIE For Cough 06/11/18 01:45 07/11/18 01:44 06/12/18 20:31 Clonidine HCl (Catapres Tab) 0.1 mg Q8HR ORAL 06/11/18 14:00 07/11/18 08:59 06/13/18 14:08 Dextrose (Dextrose 50%) 25 ml Q30M PRN IV Hypoglycemia 06/11/18 01:45 07/11/18 01:44 Dextrose (Dextrose 50%) 50 ml Q30M PRN IV Hypoglycemia 06/11/18 01:45 07/11/18 01:44 Divalproex Sodium (Depakote ER) 500 mg BEDTIME ORAL 06/11/18 21:00 07/11/18 20:59 06/12/18 21:40 Docusate Sodium (Colace) 100 mg TID ORAL 06/11/18 13:00 07/11/18 08:59 06/13/18 14:07 Gabapentin (Neurontin) 300 mg BID ORAL 06/11/18 09:00 07/11/18 08:59 06/13/18 09:12 Hydralazine HCl (Apresoline) 75 mg EVERY 8 HOURS ORAL 06/13/18 06:00 07/11/18 05:59 06/13/18 14:07 Insulin Aspart (NovoLOG) BEFORE MEALS AND HS SUBQ 06/11/18 06:30 07/11/18 06:29 06/12/18 12:09 Ipratropium [place] (Atrovent) 500 mcg Q6H PRN HHN Shortness of Breath 06/11/18 02:30 06/16/18 02:29 Lactulose (Cephulac) 10 gm DAILY PRN ORAL Constipation 06/11/18 02:45 07/11/18 02:44 Levetiracetam (Keppra) 1,000 mg TWICE A DAY ORAL 06/11/18 09:00 07/11/18 08:59 06/13/18 09:11 Levothyroxine Sodium (Synthroid) 50 mcg ACBREAKFAST ORAL 06/11/18 06:30 07/11/18 06:29 06/11/18 06:23 Lisinopril (Prinivil) 20 mg BID ORAL 06/13/18 18:00 07/13/18 08:59 Lorazepam (Ativan) 1 mg Q6H PRN ORAL For Anxiety 06/11/18 14:13 06/18/18 14:12 06/13/18 00:20 Minoxidil (Loniten) 5 mg Q4H PRN ORAL bp over 165 syst 06/13/18 01:14 07/11/18 13:13 06/13/18 00:19 Polyethylene Glycol (Miralax) 17 gm DAILY ORAL 06/11/18 09:00 07/11/18 08:59 06/12/18 09:06 Quetiapine Fumarate (SEROquel) 400 mg BEDTIME ORAL 06/11/18 21:00 07/11/18 20:59 06/12/18 21:41 Salmeterol Xinafoate/ Fluticasone (Advair 250/50 Diskus) 1 puffs BIDRT INH 06/11/18 10:00 07/11/18 09:59 06/13/18 10:05 Sevelamer Carbonate (Renvela) 3,200 mg THREE TIMES A DAY ORAL 06/11/18 09:00 07/11/18 08:59 06/12/18 09:06 Sitagliptin Phosphate (Januvia) 25 mg DAILY ORAL 06/11/18 09:00 07/11/18 08:59 06/13/18 09:11 Vitamin B Complex/ Vit C/Folic Acid (Nephrovite) 1 tab DAILY ORAL 06/11/18 09:00 07/11/18 08:59 06/13/18 09:12 Laboratory Tests 06/13/18 11:10: White Blood Count 8.2, Red Blood Count 3.09L, Hemoglobin 9.1#L, Hematocrit 27.1# L, Mean Corpuscular Volume 88, Mean Corpuscular Hemoglobin 29.5, Mean Corpuscular Hemoglobin Concent 33.6, Red Cell Distribution Width 12.9, Platelet Count 269, Mean Platelet Volume 7.0, Neutrophils (%) (Auto) 73.9, Lymphocytes (% ) (Auto) 11.7L, Monocytes (%) (Auto) 8.3, Eosinophils (%) (Auto) 5.0H, Basophils (%) (Auto) 1.2 Height (Feet): 5 Height (Inches): 4.00 Weight (Pounds): 215 General Appearance: no apparent distress Cardiovascular: regular rhythm Respiratory/Chest: decreased breath sounds Abdomen: soft, other - obese Objective no change Eamon Solis MD Jun 13, 2018 14:55
[2018-06-13 16:00] VITALS: BP 141/64
--- NOTE | 2018-06-13 17:04 | NUR ---
NURSE NOTES: Discharge at this time with report given to Marie MO at [facility].IV heplock removed,patient has her personal belongings.Patient blood pressure at this time is 141/61,heart rate is 61.[facility] ambulance will take patient to [facility].
[2018-06-13] MEDS ORDERED: Lisinopril 20mg tab ORAL SCH (18:00)
[2018-06-13] MEDS ORDERED: Carvedilol 25mg Tab ORAL SCH (21:00)
== END 2018-06-13 17:31 | DRG 811 ==
LOC: EDBD 21:24 → EMR 21:38 → EDBEDREQ 23:12 → OBSVTOIN 23:21 → INTOOBSV 23:21 → 4E 23:21 → EDBEDREQ 23:38
PROC: 30233N1 Transfusion of Nonautologous Red Blood Cells into Peripheral Vein, Percutaneous Approach (ICD-10-PCS; principal; 2018-06-12)
DX: D64.89 Other specified anemias (principal); N18.6 End stage renal disease; I50.32 Chronic diastolic (congestive) heart failure; I13.2 Hypertensive heart and chronic kidney disease with heart failure and with stage 5 chronic kidney disease, or end stage renal disease; F33.1 Major depressive disorder, recurrent, moderate; E66.9 Obesity, unspecified; D63.1 Anemia in chronic kidney disease; E11.22 Type 2 diabetes mellitus with diabetic chronic kidney disease; Z99.2 Dependence on renal dialysis; G40.909 Epilepsy, unspecified, not intractable, without status epilepticus; F31.9 Bipolar disorder, unspecified; F41.9 Anxiety disorder, unspecified; E03.9 Hypothyroidism, unspecified; I25.10 Atherosclerotic heart disease of native coronary artery without angina pectoris; J44.9 Chronic obstructive pulmonary disease, unspecified; I27.20 Pulmonary hypertension, unspecified; Z85.038 Personal history of other malignant neoplasm of large intestine; Z86.19 Personal history of other infectious and parasitic diseases; E11.40 Type 2 diabetes mellitus with diabetic neuropathy, unspecified; M51.27 Other intervertebral disc displacement, lumbosacral region; F25.0 Schizoaffective disorder, bipolar type; F17.200 Nicotine dependence, unspecified, uncomplicated; Z79.82 Long term (current) use of aspirin; Z68.37 Body mass index [BMI] 37.0-37.9, adult
CPT/HCPCS: 36415; 80048; 80053; 80061; 80299; 82550; 82728; 82962; 82977; 83036; 83540; 83550; 83735; 83880; 84100; 84443; 84484; 84550; 85007; 85025; 85610; 85730; 86140; 86850; 86900; 86901; 86920; 87081; 94640; 99285; J1815

== ENCOUNTER 2018-08-16 18:22 | Inpatient (IN) | payer MEDICARE, MEDICAID ==
[~2018-08-16] VITALS: Ht 167.6 cm; Wt 86.2 kg
[~2018-08-16 18:22] MED LIST changes: +ADVAIR 500-501 EACH INH; +AMLODIPINE BESY10 MG ORAL; +APRESOLINE50 MG ORAL; +ATORVASTATIN CA40 MG ORAL; +CLONIDINE HCL0.2 MG PO; +COLACE100 MG ORAL; +DULCOLAX10 MG RC; +IPRATROPIU0.2 MG/1 M HHN; +LACTULOSE10 GM/153 PO; +LEVETIRACETAM1000 MG ORAL; +LONITEN2.5 MG ORAL; +MIRALAX17 G2 ORAL; +NEPHROVITE1 TAB ORAL; +NEURONTIN300 MG ORAL; +NORCO 5-325 TA1 EACH ORAL; +PLAVIX75 MG ORAL; +RENAGEL800 MG ORAL; +SEROQUEL400 MG ORAL; +SYNTHROID50 MCG ORAL
--- NOTE | 2018-08-16 18:38 | Emergency Room Report ---
History of Present Illness General Chief Complaint: Altered Level of Consciousness Source: Patient, EMS Present Illness HPI Patient presents from nursing facility with complaints of altered mental status Paramedics report that the nursing facility reported change in mentation over the past 1 to 2 days Patient herself is awake is able to have short conversations however appears confused patient also has multiple dressings in the upper and lower extremities Appears to have multiple abrasions Initially denies any any chest pain Initially denies shortness of breath however at bedside has significant cough History of present illness remains limited at the patient herself cannot provide appropriate input Unknown regarding fevers patient also receives dialysis And was uncooperative during her last session Allergies: Coded Allergies: No Known Allergies (Verified , 08/23/06) Patient History Past Medical History: see triage record Pertinent Family History: none Reviewed Nursing Documentation: PMH: Agreed; PSxH: Agreed Nursing Documentation-PMH Past Medical History: No History, Except For Hx Cardiac Problems: Yes - palpitations Hx Hypertension: Yes Hx COPD: Yes Hx Diabetes: Yes Hx Cancer: Yes Hx Gastrointestinal Problems: Yes Hx Dialysis: Yes - MWF Hx Neurological Problems: Yes Hx Seizures: Yes Review of Systems All Other Systems: negative except mentioned in HPI Physical Exam Vital Signs Date Time Temp Pulse Resp B/P (MAP) Pulse Ox O2 Delivery O2 Flow Rate FiO2 08/16/18 18:21 98.1 60 17 183/74 (110) 93 Nasal Cannula 2.0 Sp02 EP Interpretation: reviewed, normal General Appearance: no apparent distress - However appears confused Head: normocephalic, atraumatic Eyes: bilateral eye PERRL ENT: dry mucus membranes Neck: supple Respiratory: no retraction, crackles - bilaterally Cardiovascular #1: regular rate, rhythm Gastrointestinal: non tender, soft Musculoskeletal: other - Significant edema with erythema both lower extremities patient has multiple abrasions in the upper extremity is able to make equal compound mixer bilaterally however weak Neurologic: responsive - To physical and verbal stimuli, however patient appears confused not able to follow more complex commands Skin: other - As above Lymphatic: no adenopathy Procedures Critical Care Time Critical Care Time 70 minutes for multiple re-evaluations critical presentation, confusion with requirement of repeat neurological exams not including procedural time Medical Decision Making Diagnostic Impression: Primary Impression: Altered level of consciousness Additional Impression: ESRD (end stage renal disease) on dialysis ER Course Patient is a fairly complex patient with multiple differential to consideration including but not limited to cardiac cardiopulmonary and vascular emergencies Other neurological, neurosurgical, infectious ,metabolic disorders also entertained Patient's hemoglobin is low however appears to be consistent with previous anemia Patient has multiple bruising appears to have multiple falls Patient continues to try to get up from [facility] and is somewhat unstable with her gait Patient required medical sedation and is admitted for further care Labs Test 08/16/18 18:40 White Blood Count 4.8 K/UL (4.8-10.8) Red Blood Count 2.35 M/UL (4.20-5.40) Hemoglobin 7.3 G/DL (12.0-16.0) Hematocrit 21.9 % (37.0-47.0) Mean Corpuscular Volume 93 FL (80-99) Mean Corpuscular Hemoglobin 30.9 PG (27.0-31.0) Mean Corpuscular Hemoglobin Concent 33.2 G/DL (32.0-36.0) Red Cell Distribution Width 15.3 % (11.6-14.8) Platelet Count 105 K/UL (150-450) Mean Platelet Volume 6.6 FL (6.5-10.1) Neutrophils (%) (Auto) % (45.0-75.0) Lymphocytes (%) (Auto) % (20.0-45.0) Monocytes (%) (Auto) % (1.0-10.0) Eosinophils (%) (Auto) % (0.0-3.0) Basophils (%) (Auto) % (0.0-2.0) Sodium Level 135 MMOL/L (136-145) Potassium Level 4.5 MMOL/L (3.5-5.1) Chloride Level 97 MMOL/L (98-107) Carbon Dioxide Level 24 MMOL/L (21-32) Anion Gap 14 mmol/L (5-15) Blood Urea Nitrogen 54 mg/dL (7-18) Creatinine 8.9 MG/DL (0.55-1.30) Estimat Glomerular Filtration Rate 4.6 mL/min (>60) Glucose Level 79 MG/DL (74-106) Lactic Acid Level 0.70 mmol/L (0.4-2.0) Calcium Level 9.4 MG/DL (8.5-10.1) Total Bilirubin 0.8 MG/DL (0.2-1.0) Aspartate Amino Transf (AST/SGOT) 76 U/L (15-37) Alanine Aminotransferase (ALT/SGPT) 37 U/L (12-78) Alkaline Phosphatase 97 U/L (46-116) Ammonia 14 umol/L (11-32) Total Creatine Kinase 700 U/L (26-308) Creatine Kinase MB 16.0 NG/ML (0.0-3.6) Creatine Kinase MB Relative Index 2.2 Troponin I 0.111 ng/mL (0.000-0.056) Pro-B-Type Natriuretic Peptide > 10654 pg/mL (0-125) Total Protein 6.9 G/DL (6.4-8.2) Albumin 2.9 G/DL (3.4-5.0) Globulin 4.0 g/dL Albumin/Globulin Ratio 0.7 (1.0-2.7) Lipase 204 U/L (73-393) Rhythm Strip Diag. Results EP Interpretation: yes Rate: 88 Rhythm: NSR, no PVC's, no ectopy Chest X-Ray Diagnostic Results Chest X-Ray Diagnostic Results : Chest X-Ray Ordered: Yes # of Views/Limited/Complete: 1 View Indication: Shortness of Breath EP Interpretation: Yes Interpretation: no effusion, no pneumothorax, other - Right upper lobe increased markings consider infiltrate, mild congestion Impression: Other - Right-sided infiltrate Electronically Signed by: Gregory Sung DO Last Vital Signs Date Time Temp Pulse Resp B/P (MAP) Pulse Ox O2 Delivery O2 Flow Rate FiO2 08/16/18 18:21 98.1 60 17 183/74 (110) 93 Nasal Cannula 2.0 Status: improved Disposition: ADMITTED INPATIENT Condition: Serious Gregory Sung DO Aug 16, 2018 18:37
[2018-08-16 18:42] VITALS: BP 183/74
--- NOTE | 2018-08-16 18:55 | NUR ---
ED Nurse Note: pt biba for ALOC from [facility] via [facility] ambulance. blood sent clarad perez baeza
--- NOTE | 2018-08-16 18:56 | NUR ---
ED Nurse Note: pt hard stick line blew will try again
[2018-08-16 19:11] LABS: HEMATOCRIT 21.9 % (37.0-47.0); HEMOGLOBIN 7.3 G/DL (12.0-16.0); MEAN CORPUSCULAR VOLUME 93 FL (80-99); PLATELET COUNT 105 K/UL (150-450); RED BLOOD COUNT 2.35 M/UL (4.20-5.40); RED CELL DISTRIBUTION WIDTH 15.3 % (11.6-14.8); WHITE BLOOD COUNT 4.8 K/UL (4.8-10.8)
[2018-08-16 19:16] LABS: AMMONIA 14 umol/L (11-32); ANION GAP 14 mmol/L (5-15); BLOOD UREA NITROGEN 54 mg/dL (7-18); CALCIUM 9.4 MG/DL (8.5-10.1); CARBON DIOXIDE 24 MMOL/L (21-32); CHLORIDE 97 MMOL/L (98-107); CREATININE 8.9 MG/DL (0.55-1.30); POTASSIUM 4.5 MMOL/L (3.5-5.1); SODIUM 135 MMOL/L (136-145)
[2018-08-16 19:30] VITALS: BP 165/61
--- NOTE | 2018-08-16 19:30 | NUR ---
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 NOTED AV SHUNT ON RIGHT ARM
--- NOTE | 2018-08-16 19:31 | Diagnostic Imaging Report ---
EXAM: XR Chest, 1 View CLINICAL HISTORY: CP TECHNIQUE: Frontal view of the chest. COMPARISON: Chest radiograph on 11/07/2017 FINDINGS: Hardware: None. Lungs/pleura: Hazy interstitial opacities and right greater than left lungs. No pleural effusion or pneumothorax. Heart/mediastinum: Stable enlargement of the cardiomediastinal silhouette. Soft tissues: Unremarkable. Bones: No acute fracture. Upper abdomen: Normal. IMPRESSION: Hazy and interstitial opacities and right greater than left lungs may represent pulmonary edema versus infectious/inflammatory process.
[2018-08-16 19:32] LABS: ALANINE AMINOTRANSFERASE 37 U/L (12-78); ALBUMIN 2.9 G/DL (3.4-5.0); ALBUMIN/GLOBULIN RATIO 0.7 (1.0-2.7); ALKALINE PHOSPHATASE 97 U/L (46-116); ASPARTATE AMINO TRANSFERASE 76 U/L (15-37); BILIRUBIN,TOTAL 0.8 MG/DL (0.2-1.0); CREATINE KINASE 700 U/L (26-308)
--- NOTE | 2018-08-16 19:40 | NUR ---
ED Nurse Note: NOTED MULTIPLE WOUND AND CONTUSION ON PT. CONTUSION ON LEFT HIP, UNDER MANDIBULAR AREA, LILI UPPER EXT, LLE, PT REPORTS SHE FELL RECENTLY. EDEMA NOTED BLE, +2 PITTING. NOTED MILD EDEMA ON HANDS. NOTED VASCULAR WOUND BLAKENED AREA ON LEFT FOOT BIG TOE AND OPEN WOUND ON RIGHT TOES. NOTED REDDENED RASH(SKIN BUMPS) ON LILI BUTTOCK AREA. NOTED OPEN WOUND ON LILI HANDS AND LEFT DISTAL UPPER EXT. WILL CONT MONITOR.
[2018-08-16] MEDS ORDERED: Albuterol/Ipratropium 3ml neb HHN PRN (19:45)
[2018-08-16] MEDS ORDERED: Ipratropium 0.02% Inh Soln 2.5ml UD HHN PRN (19:45)
[2018-08-16] MEDS ORDERED: cefTRIAXone 1 GM in NS 55 ML IVPB ONE (20:00)
--- NOTE | 2018-08-16 20:10 | NUR ---
ED Nurse Note: PT UNABLE TO SIT, ATTEMPTING TO CLIMB OUT OF BED, YELLING AND PULLING LINES, ERMD NOTIFIED REGARDING PT'S CONDITION, AND CHARGE NURSE NOTIFIED FOR SITTER REQ.
[2018-08-16 20:30] VITALS: BP 162/72
[2018-08-16] MEDS: Heparin 5000 units/ml inj SUBQ SCH (21:00)
[2018-08-16] MEDS: NovoLOG Insulin Flexpen SUBQ SCH (21:00)
--- NOTE | 2018-08-16 21:00 | NUR ---
ED Nurse Note: unable to access iv 20g at this time due to pt avshunt and edema with skin wound, pt hardstickkaci notified.
--- NOTE | 2018-08-16 21:07 | NUR ---
ED Nurse Note: PT SLEEPING AT THIS TIME, VSS, SINUS CASSIDY ON VEGETABLE INSPECTOR, NO SX RESP DISTRESS, O2 CONTINUED, WILL CONT MONITOR.
--- NOTE | 2018-08-16 22:00 | NUR ---
ED Nurse Note: blood transfusion cancelled per ERMCorwin, pt vss at this time, continue order on floor, may need picc line access.
--- NOTE | 2018-08-16 22:18 | NUR ---
ED Nurse Note: report given to CHEPE nguyen. Addendum: 08/17/18 at 0409 by PEBBLES ED Nurse Note: REPORT GIVEN TO CHEPE HERRING
--- NOTE | 2018-08-16 22:30 | NUR ---
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
[2018-08-16] MEDS: Docusate 100mg cap ORAL SCH (23:25)
[2018-08-16] MEDS: Carvedilol 12.5mg tab ORAL SCH (23:26)
[2018-08-16] MEDS: HydrALAZINE 50mg tab ORAL SCH (23:26)
[2018-08-16] MEDS: Atorvastatin 80mg tab ORAL SCH (23:26)
[2018-08-17] VITALS: BP 145/56
[2018-08-17] MEDS: HYDROcodone/Acetamin 5/325 tab ORAL PRN (01:25)
[2018-08-17 04:00] VITALS: BP 105/56
[2018-08-17] MEDS: HydrALAZINE 50mg tab ORAL SCH ×2 (06:00→14:13)
[2018-08-17] MEDS: NovoLOG Insulin Flexpen SUBQ SCH ×4 (06:15→21:05)
--- NOTE | 2018-08-17 07:20 | NUR ---
HAND-OFF: Report given to Ltaesha MO.
--- NOTE | 2018-08-17 07:20 | NUR ---
NURSE NOTES: I received the patient awake and resting in bed. Patient alert and oriented x4. Bed in the lowest position and call ligth within reach. Patient does not display any signs of distress or SOB. I will continue to monitor the patient and implement care.
[2018-08-17 08:00] VITALS: BP 156/65
[2018-08-17] MEDS ORDERED: Miralax 17gm pkt ORAL SCH (09:00)
[2018-08-17] MEDS ORDERED: Docusate 100mg cap ORAL SCH (09:00)
[2018-08-17] MEDS: Heparin 5000 units/ml inj SUBQ SCH (09:00)
[2018-08-17] MEDS ORDERED: Lomotil 2.5mg tab ORAL SCH (09:00)
[2018-08-17] MEDS ORDERED: cloNIDine 0.2mg Tab ORAL SCH (09:00)
[2018-08-17] MEDS: sitaGLIPtin 25mg tab ORAL SCH (09:35)
[2018-08-17] MEDS: Nephrovite tab (Rena-Vite) ORAL SCH (09:35)
[2018-08-17] MEDS: Docusate 100mg cap ORAL SCH ×2 (09:35→20:21)
[2018-08-17] MEDS: Aspirin Baby 81mg ORAL SCH (09:36)
[2018-08-17] MEDS: Carvedilol 12.5mg tab ORAL SCH (09:36)
--- NOTE | 2018-08-17 11:09 | NUR ---
CASE MANAGEMENT: INITIAL REVIEW 57 YO F RJA FROM [facility] CC: ALOC PMHx: COPD. HTN. DM. HD MWF. SZ. SI:ENCEPHALOPATHY. RENAL FAILURE. T 98.1 HR 60 RR 17 B/P 183/74 SATS 93% ON 2L/NC HGB 7.3 HGB 21.9 BUN 54 CR 8.9 AST 76 TOTAL CK 700 CKMB 16 BNP >35K TROPONIN 0.111 IS: HYDRALAZINE PO Q8H LIPITOR PO QHS CATAPRES PO BID LOMOTIL PO BID ASA PO QD PLAVIX PO QD SYNTHROID PO QD INSULIN ASPART SUBQ AC/HS KEPPRA PO Q12H PATIENT ADMITTED TO TELE 08/17/2018 @ 0129 DCP: PATIENT TO BE DISCHARGED TO SNF ONCE MEDICALLY CLEARED. Addendum: 08/17/18 at 1818 by Lisa Decker CM INTERQUAL MET
[2018-08-17] MEDS ORDERED: Miralax 17gm pkt ORAL PRN (11:45)
[2018-08-17 12:00] VITALS: BP 149/66
--- NOTE | 2018-08-17 12:22 | NUR ---
NURSE NOTES: Patient plavix was administered late due to their Plavix and heparin both being ordered for the patient. The doctor was contacted to clarify the orders. The doctored discontinued the heparin and Plavix will be continued as ordered.
[2018-08-17] MEDS: Azithromycin 250mg tab ORAL SCH (14:39)
--- NOTE | 2018-08-17 14:48 | Consultation ---
Consult Note Consult Note I was asked to evaluate for dialysis management Known to me from her previous admission Patient presents from nursing facility with complaints of altered mental status Paramedics report that the nursing facility reported change in mentation over the past 1 to 2 days Patient herself is awake is able to have short conversations however appears confused patient also has multiple dressings in the upper and lower extremities Appears to have multiple abrasions Initially denies any any chest pain Initially denies shortness of breath however at bedside has significant cough History of present illness remains limited at the patient herself cannot provide appropriate input Unknown regarding fevers patient also receives dialysis And was uncooperative during her last session No Known Allergies (Verified , 08/23/06) Past Medical History: No History, Except For Hx Cardiac Problems: Yes - palpitations Hx Hypertension: Yes Hx COPD: Yes Hx Diabetes: Yes Hx Cancer: Yes Hx Gastrointestinal Problems: Yes Hx Dialysis: Yes - MWF Hx Neurological Problems: Yes Hx Seizures: Yes interviewed poor historian data reviewed . Assessment/Plan - Metabolic Encephalopathy - End-stage renal disease, on hemodialysis. - Symptomatic Anemia - Anemia of chronic kidney disease. - HTN / Pulmonary HTN - Diabetes type 2. -HypoThyroidism - Morbid obesity. - H/O Colon Cancer - H/O Hep C - H/O Depression and Bipolar disease - Psych disease uncoaporative --Bilateral leg numbness --diabetic neuropathy --L5-S1 disc protrusion adjust BP meds Anemia yao HD for Sunday or earlier if needed per orders Eamon Solis MD Aug 17, 2018 14:48
--- NOTE | 2018-08-17 15:08 | History and Physical ---
History of Present Illness General Date patient seen: Aug 17, 2018 Reason for Hospitalization: Altered Level of Consciousness Present Illness HPI 57 year old female with ESRD on HD, DM2, HTN, HL, chronic diastolic CHF, COPD, PVD, hypothyroidism, obesity, bipolar disorder, hx of CVA, medical noncompliance who was sent in from SNF for altered mental status for past 2 days. Pt complains of cough, She denies any weakness, dizziness, chest pain, palpitations. In ED she was given ceftriaxone Allergies: Coded Allergies: No Known Allergies (Verified , 08/23/06) Medication History Scheduled Amlodipine Besylate* (Amlodipine Besylate*), 10 MG ORAL DAILY, (Reported) Aspirin* (Aspirin*), 81 MG ORAL DAILY, (Reported) Atorvastatin Calcium* (Atorvastatin Calcium*), 40 MG ORAL BEDTIME, (Reported) Bisacodyl (Dulcolax), 10 MG RC DAILY, (Reported) Carvedilol* (Carvedilol*), 12.5 MG ORAL EVERY 12 HOURS, (Reported) Clonidine Hcl (Clonidine Hcl), 0.2 MG PO BID, (Reported) Clopidogrel Bisulfate* (Plavix*), 75 MG ORAL DAILY, (Reported) Docusate Sodium* (Colace*), 100 MG ORAL TWICE A DAY, (Reported) Fluticasone/Salmeterol (Advair 500-50 Diskus), 1 PUFF INH EVERY 12 HOURS, ( Reported) Gabapentin (Neurontin), 300 MG ORAL BID, (Reported) Hydralazine HCl (Hydralazine HCl), 50 MG ORAL EVERY 8 HOURS, (Reported) Levetiracetam (Levetiracetam), 1,000 MG ORAL TWICE A DAY, (Reported) Levothyroxine Sodium (Synthroid), 50 MCG ORAL DAILY, (Reported) Minoxidil (Minoxidil), 2.5 MG ORAL BID, (Reported) Polyethylene Glycol 3350* (Miralax*), 17 GM ORAL DAILY, (Reported) Quetiapine Fumarate (Seroquel), 400 MG ORAL BEDTIME, (Reported) Sevelamer Hcl (Renagel), 800 MG ORAL THREE TIMES A DAY, (Reported) Sitagliptin* (Januvia*), 25 MG ORAL DAILY, (Reported) Vitamin B Cmplx/Vit C/Folic AC (Nephro-Denise Tablet), 1 TAB ORAL DAILY, (Reported ) Scheduled PRN Acetaminophen* (Acetaminophen 325MG Tablet*), 650 MG ORAL QID PRN for Pain Scale (3-5), (Reported) Hydrocodone Bit/Acetaminophen 5-325* (Frederick 5-325*), 1 TAB ORAL Q4H PRN for For Pain, (Reported) Ipratropium [place] 0.5MG/2.5ML (Ipratropium [place] 0.5MG/2.5ML), 0.5 MG HHN Q6H PRN for Shortness of Breath, (Reported) Lactulose (Lactulose), 10 GM PO DAILY PRN for Constipation, (Reported) Patient History Limited by: medical condition History Provided By: Patient, Medical Record Healthcare decision maker Resuscitation status Full Code Advanced Directive on File Review of Systems ROS Narrative Constitutional: Denies: chills, fever Eye: Denies: eye pain ENT: denies throat pain Respiratory: Complaining of: cough, Cardiovascular: Denies: chest pain Gastrointestinal: Denies: abdominal pain, constipation Musculoskeletal: Denies: back pain, gout Skin: Denies: rash Neurological: Denies: headache, numbness, paresthesia, syncope, dizziness Physical Exam General Appearance: WD/WN, no apparent distress, lethargic, confused Lines, tubes and drains: peripheral HEENT: normocephalic, atraumatic Neck: non-tender Respiratory/Chest: chest wall non-tender, lungs clear, normal breath sounds, no respiratory distress Cardiovascular/Chest: normal peripheral pulses, normal rate, regular rhythm Abdomen: normal bowel sounds Extremities: normal range of motion Skin Exam: other - multiple small wounds on all extremeties Neurologic: finish molder II-XII grossly normal Last 24 Hour Vital Signs Date Time Temp Pulse Resp B/P (MAP) Pulse Ox O2 Delivery O2 Flow Rate FiO2 08/17/18 14:13 146/72 08/17/18 12:00 53 08/17/18 12:00 97.1 53 21 149/66 (93) 98 08/17/18 09:36 59 156/65 08/17/18 09:35 156/65 08/17/18 09:35 59 156/65 08/17/18 09:00 Room Air 08/17/18 08:00 58 08/17/18 08:00 98.1 59 20 156/65 (95) 96 08/17/18 06:00 105/56 08/17/18 04:00 56 08/17/18 04:00 98.0 55 18 105/56 (72) 99 08/17/18 00:00 65 08/17/18 00:00 97.5 64 20 145/56 (85) 98 08/16/18 23:46 Room Air 08/16/18 23:26 145/65 08/16/18 23:26 64 145/65 08/16/18 22:30 98.2 56 18 156/86 98 Room Air 08/16/18 20:30 98.7 56 15 162/72 98 Nasal Cannula 3.0 08/16/18 19:30 98.1 55 17 165/61 97 Nasal Cannula 3.0 08/16/18 18:42 98.1 17 183/74 93 Nasal Cannula 2.0 08/16/18 18:42 60 17 Nasal Cannula 3.0 08/16/18 18:21 98.1 60 17 183/74 (110) 93 Nasal Cannula 2.0 Intake and Output 08/16/18 08/17/18 18:59 06:59 Intake Total 55 ml Balance 55 ml Intake IV Total 55 ml # Voids 2 Laboratory Tests Test 08/16/18 18:40 White Blood Count 4.8 K/UL (4.8-10.8) Red Blood Count 2.35 M/UL (4.20-5.40) L Hemoglobin 7.3 G/DL (12.0-16.0) L Hematocrit 21.9 % (37.0-47.0) L Mean Corpuscular Volume 93 FL (80-99) Mean Corpuscular Hemoglobin 30.9 PG (27.0-31.0) Mean Corpuscular Hemoglobin Concent 33.2 G/DL (32.0-36.0) Red Cell Distribution Width 15.3 % (11.6-14.8) H Platelet Count 105 K/UL (150-450) L Mean Platelet Volume 6.6 FL (6.5-10.1) Neutrophils (%) (Auto) % (45.0-75.0) Lymphocytes (%) (Auto) % (20.0-45.0) Monocytes (%) (Auto) % (1.0-10.0) Eosinophils (%) (Auto) % (0.0-3.0) Basophils (%) (Auto) % (0.0-2.0) Sodium Level 135 MMOL/L (136-145) L Potassium Level 4.5 MMOL/L (3.5-5.1) Chloride Level 97 MMOL/L (98-107) L Carbon Dioxide Level 24 MMOL/L (21-32) Anion Gap 14 mmol/L (5-15) Blood Urea Nitrogen 54 mg/dL (7-18) H Creatinine 8.9 MG/DL (0.55-1.30) H Estimat Glomerular Filtration Rate 4.6 mL/min (>60) Glucose Level 79 MG/DL (74-106) Lactic Acid Level 0.70 mmol/L (0.4-2.0) Calcium Level 9.4 MG/DL (8.5-10.1) Total Bilirubin 0.8 MG/DL (0.2-1.0) Aspartate Amino Transf (AST/SGOT) 76 U/L (15-37) H Alanine Aminotransferase (ALT/SGPT) 37 U/L (12-78) Alkaline Phosphatase 97 U/L (46-116) Ammonia 14 umol/L (11-32) Total Creatine Kinase 700 U/L (26-308) H Creatine Kinase MB 16.0 NG/ML (0.0-3.6) H Creatine Kinase MB Relative Index 2.2 Troponin I 0.111 ng/mL (0.000-0.056) Pro-B-Type Natriuretic Peptide > 30587 pg/mL (0-125) H Total Protein 6.9 G/DL (6.4-8.2) Albumin 2.9 G/DL (3.4-5.0) L Globulin 4.0 g/dL Albumin/Globulin Ratio 0.7 (1.0-2.7) L Lipase 204 U/L (73-393) Microbiology Date/Time Source Procedure Growth Status 08/16/18 19:15 Rectum Received Height (Feet): 5 Height (Inches): 6.00 Weight (Pounds): 190 Medications Current Medications Medications (Trade) Dose Ordered Sig/Gabriele Route PRN Reason Start Time Stop Time Status Last Admin Dose Admin Acetaminophen (Tylenol) 650 mg QIDPRN PRN ORAL Pain Scale (3-5) 08/16/18 19:45 7/28/19 19:44 Acetaminophen/ Hydrocodone Bitart ([place] 5/325) 1 tab Q4H PRN ORAL For Pain 08/16/18 19:45 08/23/18 19:44 08/17/18 01:25 Albuterol/ Ipratropium (Albuterol/ Ipratropium) 3 ml Q4H PRN HHN Shortness of Breath 08/16/18 19:45 08/21/18 19:44 Amlodipine Besylate (Norvasc) 10 mg DAILY ORAL 08/17/18 09:00 09/16/18 08:59 08/17/18 09:35 Aspirin (ASA) 81 mg DAILY ORAL 08/17/18 09:00 09/16/18 08:59 08/17/18 09:36 Atorvastatin Calcium (Lipitor) 40 mg BEDTIME ORAL 08/16/18 21:00 09/15/18 20:59 08/16/18 23:26 Azithromycin (Zithromax) 500 mg DAILY ORAL 08/17/18 14:31 08/24/18 14:30 08/17/18 14:39 Carvedilol (Coreg) 12.5 mg EVERY 12 HOURS ORAL 08/16/18 21:00 09/15/18 20:59 08/17/18 09:36 Cefepime HCl 0.5 gm/Dextrose 55 ml @ 110 mls/hr Q24H IVPB 08/17/18 16:00 08/24/18 15:59 Clonidine HCl (Catapres tab) 0.2 mg BID ORAL 08/17/18 09:00 09/16/18 08:59 08/17/18 09:35 Clopidogrel Bisulfate (Plavix) 75 mg DAILY ORAL 08/17/18 09:00 09/16/18 08:59 08/17/18 12:20 Dextrose (Dextrose 50%) 25 ml Q30M PRN IV Hypoglycemia 08/16/18 20:00 09/15/18 19:59 Dextrose (Dextrose 50%) 50 ml Q30M PRN IV Hypoglycemia 08/16/18 20:00 09/15/18 19:59 Diphenhydramine HCl (Benadryl) 25 mg Q6H PRN ORAL Itching/Pruritis 08/16/18 19:45 09/15/18 19:44 Docusate Sodium (Colace) 100 mg EVERY 12 HOURS ORAL 08/16/18 21:00 09/15/18 20:59 08/17/18 09:35 Gabapentin (Neurontin) 300 mg BID ORAL 08/17/18 09:00 09/16/18 08:59 08/17/18 09:35 Hydralazine HCl (Apresoline) 50 mg EVERY 8 HOURS ORAL 08/16/18 22:00 09/15/18 21:59 08/17/18 14:13 Insulin Aspart (NovoLOG) BEFORE MEALS AND HS SUBQ 08/16/18 21:00 09/15/18 20:59 08/17/18 12:21 Levetiracetam (Keppra) 1,000 mg Q12HR ORAL 08/17/18 09:00 09/16/18 08:59 08/17/18 09:36 Levothyroxine Sodium (Synthroid) 50 mcg ACBREAKFAST ORAL 08/18/18 06:30 09/17/18 06:29 Ondansetron HCl (Zofran) 4 mg Q6H PRN IVP Nausea & Vomiting 08/16/18 19:45 09/15/18 19:44 Polyethylene Glycol (Miralax) 17 gm DAILYPRN PRN ORAL Constipation 08/17/18 11:45 09/16/18 11:44 Sitagliptin Phosphate (Januvia) 25 mg DAILY ORAL 08/17/18 09:00 09/16/18 08:59 08/17/18 09:35 Vitamin B Complex/ Vit C/Folic Acid (Nephrovite) 1 tab DAILY ORAL 08/17/18 09:00 09/16/18 08:59 08/17/18 09:35 Assessment/Plan Status: stable Assessment/Plan: 57 year old female with ESRD on HD, DM2, HTN, HL, chronic diastolic CHF, COPD, PVD, hypothyroidism, obesity, bipolar disorder, hx of CVA, admitted for AMS likely 2/2 PNA #Acute encephalopathy likely 2/2 infectious causes #Poss PNA -Abx changed to cefepime (SNF resident) and azithromycin added -ID consulted -Neurology consulted -NCO2 PRN -f/u cultures #Acute on chronic anemia #Anemia of ESRD #ESRD -Patient may benefit from PRBC transfusion if Hb <7 -Consult Hematology -Consult Nephrology for HD treatments -monitor CBC and BMP #Chronic diastolic CHF #HTN #Hyperlipidemia -fluid management via HD -continue minoxidil, clonidine, Coreg, Norvasc and Lipitor #Type 2 DM #Obesity -continue Januvia -lispro SS #Epilepsy -continue Keppra #Bipolar and anxiety -continue Seroquel #Hypothyroidism -continue levothyroxine VTE PPx SCD Full Code I spent 70 minutes on this patient's case, and 35 minutes was dedicated to counseling and/or care coordination. Lupe Escalona MD Aug 17, 2018 15:08
[2018-08-17 16:00] VITALS: BP 134/86
[2018-08-17] MEDS: Cefepime HCl 0.5 GM in D5W 55 ML IVPB SCH ×2 (16:00→16:23)
--- NOTE | 2018-08-17 16:33 | NUR ---
NURSE NOTES: Patient refused 1600 dose of cefepime. I educated the patient about the need for the medication, but she continued to refuse. The patient stated that, "she is going to leave." Patient asked for clothes. I told the patient that the doctor is not discharging her and the need to take her medication, but she still refused the antibiotic. Patient resting in bed. Bed in the lowest position and call light within reach. I will continue to monitor the patient.
--- NOTE | 2018-08-17 17:35 | NUR ---
NURSE NOTES: Observed the patient almost fall, wondering the halls and enter other patients rooms. Nursing staff has attempted to redirect the patient but is uncooperative and doesnt follow commands. Contacted Md Escalona for restraints, she ok'd soft wrist restraints and psych consult
[2018-08-17] MEDS ORDERED: LORazepam Inj 2mg/ml 1ml IV SCH (18:23)
--- NOTE | 2018-08-17 19:01 | NUR ---
HAND-OFF: Report given to CHEPE Weinberg.
--- NOTE | 2018-08-17 19:43 | NUR ---
NURSE NOTES: Report received from CHEPE Charlton. Pt is in stable condition with no signs or symptoms of cardiopulmonary distress noted. Bed in the lowest position, bed brakes engaged, side rails up x3 and padded with call light within reach. Will continue to monitor.
[2018-08-17 20:00] VITALS: BP 160/71
[2018-08-17] MEDS ORDERED: CATAPRES0.1 MG ORAL (20:19)
[2018-08-17] MEDS ORDERED: CARVEDILOL3.125 MG ORAL (20:19)
[2018-08-17] MEDS ORDERED: LANTUS SOL100 UNIT/1 SUBQ (20:19)
[2018-08-17] MEDS ORDERED: ACETAMINOPHEN325 M1 ORAL (20:21)
[2018-08-17] MEDS ORDERED: PROCRIT10000 UNIT SUBQ (20:21)
[2018-08-17] MEDS: Atorvastatin 80mg tab ORAL SCH (20:34)
[2018-08-17] MEDS: Carvedilol 6.25mg Tab ORAL SCH (21:00)
[2018-08-17] MEDS: HydrALAZINE 25mg tab ORAL SCH (21:12)
--- NOTE | 2018-08-17 21:40 | Consultation ---
History of Present Illness General Date patient seen: Aug 17, 2018 Chief Complaint: Altered Level of Consciousness Referring physician: Dr. Escalona Present Illness HPI Cris Zuluaga is a 57 year old female with ESRD on HD, DM2, HTN, HL, chronic diastolic CHF, COPD, PVD, hypothyroidism, obesity, bipolar disorder, hx of CVA, medical noncompliance who was sent in from SNF for altered mental status for past 2 days. Pt complains of cough, She denies any weakness, dizziness, chest pain, palpitations. In ED she was given ceftriaxone Allergies: Coded Allergies: No Known Allergies (Verified , 08/23/06) Medication History Scheduled Amlodipine Besylate* (Amlodipine Besylate*), 10 MG ORAL DAILY, (Reported) Atorvastatin Calcium* (Atorvastatin Calcium*), 40 MG ORAL BEDTIME, (Reported) Carvedilol* (Carvedilol*), 3.125 MG ORAL EVERY 12 HOURS, (Reported) Clopidogrel Bisulfate* (Plavix*), 75 MG ORAL DAILY, (Reported) Docusate Sodium* (Colace*), 100 MG ORAL TWICE A DAY, (Reported) Epoetin Mau (Procrit), 10,000 UNIT SUBQ 3XW, (Reported) Fluticasone/Salmeterol (Advair 500-50 Diskus), 1 PUFF INH EVERY 12 HOURS, ( Reported) Gabapentin (Neurontin), 300 MG ORAL BID, (Reported) Insulin Glargine (Lantus), 100 SUBQ BEDTIME, (Reported) Levetiracetam (Levetiracetam), 1,000 MG ORAL TWICE A DAY, (Reported) Levothyroxine Sodium (Synthroid), 50 MCG ORAL DAILY, (Reported) Minoxidil (Minoxidil), 2.5 MG ORAL BID, (Reported) Polyethylene Glycol 3350* (Miralax*), 17 GM ORAL DAILY, (Reported) Quetiapine Fumarate (Seroquel), 400 MG ORAL BEDTIME, (Reported) Sevelamer Hcl (Renagel), 3,200 MG ORAL THREE TIMES A DAY, (Reported) Sitagliptin* (Januvia*), 25 MG ORAL DAILY, (Reported) Vitamin B Cmplx/Vit C/Folic AC (Nephro-Denise Tablet), 1 TAB ORAL DAILY, (Reported ) Scheduled PRN Acetaminophen* (Acetaminophen 325MG Tablet*), 650 MG ORAL QID PRN for Pain Scale (3-5), (Reported) Acetaminophen* (Acetaminophen 325MG Tablet*), 650 MG ORAL Q6H PRN for For Pain, (Reported) Acetaminophen* (Acetaminophen 325MG Tablet*), 650 MG ORAL Q6H PRN for TEMPERATURE, (Reported) Bisacodyl (Dulcolax), 10 MG RC DAILY PRN for Constipation, (Reported) Clonidine Hcl* (Catapres*), 0.1 MG ORAL EVERY 8 HOURS PRN for For High Blood Pressure, (Reported) Hydralazine HCl (Hydralazine HCl), 50 MG ORAL FOUR TIMES A DAY PRN for For High Blood Pressure, (Reported) Hydrocodone Bit/Acetaminophen 5-325* ([place] 5-325*), 1 TAB ORAL Q4H PRN for For Pain, (Reported) Ipratropium [place] 0.5MG/2.5ML (Ipratropium [place] 0.5MG/2.5ML), 0.5 MG HHN FOUR TIMES A DAY PRN for Shortness of Breath, (Reported) Lactulose (Lactulose), 10 GM PO DAILY PRN for Constipation, (Reported) Discontinued Medications Aspirin* (Aspirin*), 81 MG ORAL DAILY, (Reported) Discontinued Reason: MD discontinued med Carvedilol* (Carvedilol*), 12.5 MG ORAL EVERY 12 HOURS, (Reported) Discontinued Reason: Prescription changed Clonidine Hcl (Clonidine Hcl), 0.2 MG PO BID, (Reported) Discontinued Reason: Prescription changed Patient History Limited by: medical condition History Provided By: Medical Record Healthcare decision maker Resuscitation status Full Code Advanced Directive on File Review of Systems Constitutional: Denies: no symptoms, see HPI, chills, sweats, fever, malaise, weakness, other Eye: Denies: no symptoms, see HPI, eye pain, blurred vision, tearing, double vision, nose pain, nose congestion, acuity changes, discharge, other ENT: Denies: no symptoms, see HPI, ear pain, ear discharge, nose pain, nose congestion, throat pain, throat swelling, mouth pain, hearing loss, nasal discharge, other Respiratory: Denies: no symptoms, see HPI, cough, orthopnea, shortness of breath, stridor, wheezing, LOPEZ, sputum, other Cardiovascular: Denies: no symptoms, see HPI, chest pain, edema, palpitations, syncope, PND, other Gastrointestinal: Denies: no symptoms, see HPI, abdominal pain, constipation, diarrhea, nausea, vomiting, melena, hematemesis, other Genitourinary: Denies: no symptoms, see HPI, discharge, dysuria, frequency, hematuria, pain, retention, incontinence, urgency, vag bleed/dc, other Musculoskeletal: Denies: no symptoms, see HPI, back pain, gout, joint pain, joint swelling, muscle pain, muscle stiffness, other Skin: Denies: no symptoms, see HPI, rash, change in color, change in hair/nails , dryness, lesions, other Psychiatric: Denies: no symptoms, see HPI, prior hx, anxiety, depressed feelings, emotional problems, SI, HI, hallucinations, other Neurological: Denies: no symptoms, see HPI, headache, numbness, paresthesia, seizure, tingling, tremors, focal weakness, syncope, dizziness, other Endocrine: Denies: no symptoms, see HPI, excessive sweating, flushing, intolerance to temperature, increased thirst, increased urine, unexplained weight loss, other Hematologic/Lymphatic: Denies: no symptoms, see HPI, anemia, blood clots, easy bleeding, easy bruising, swollen glands, diathesis, other All Other Systems: negative except mentioned in HPI Physical Exam General Appearance: WD/WN, no apparent distress, lethargic, confused, obese Lines, tubes and drains: peripheral HEENT: normocephalic, atraumatic, anicteric, mucous membranes moist, PERRL, EOMI, pharynx normal, supple, no JVD Neck: non-tender, normal alignment, supple Respiratory/Chest: normal breath sounds, no respiratory distress, no accessory muscle use Extremities: normal range of motion, non-tender, normal inspection, no calf tenderness, normal capillary refill, non-pitting Skin Exam: normal pigmentation, warm/dry, no diaphoresis Neurologic: alert, responsive, abnormal CN, disoriented Musculoskeletal: normal muscle bulk, no effusion - MIld facial weakness - likely a baseline finding secondary to prior CVA Last 24 Hour Vital Signs Date Time Temp Pulse Resp B/P (MAP) Pulse Ox O2 Delivery O2 Flow Rate FiO2 08/17/18 21:12 160/71 08/17/18 21:11 160/71 08/17/18 21:00 53 160/71 08/17/18 16:00 52 08/17/18 16:00 97.2 56 21 134/86 (102) 99 08/17/18 14:13 146/72 08/17/18 12:00 53 08/17/18 12:00 97.1 53 21 149/66 (93) 98 08/17/18 09:36 59 156/65 08/17/18 09:35 156/65 08/17/18 09:35 59 156/65 08/17/18 09:00 Room Air 08/17/18 08:00 58 08/17/18 08:00 98.1 59 20 156/65 (95) 96 08/17/18 06:00 105/56 08/17/18 04:00 56 08/17/18 04:00 98.0 55 18 105/56 (72) 99 08/17/18 00:00 65 08/17/18 00:00 97.5 64 20 145/56 (85) 98 08/16/18 23:46 Room Air 08/16/18 23:26 145/65 08/16/18 23:26 64 145/65 08/16/18 22:30 98.2 56 18 156/86 98 Room Air Intake and Output 08/16/18 08/17/18 19:00 07:00 Intake Total 55 ml Balance 55 ml Intake IV Total 55 ml # Voids 2 Height (Feet): 5 Height (Inches): 6.00 Weight (Pounds): 190 Medications Current Medications Medications (Trade) Dose Ordered Sig/Gabriele Route PRN Reason Start Time Stop Time Status Last Admin Dose Admin Acetaminophen (Tylenol) 650 mg QIDPRN PRN ORAL Pain Scale (3-5) 08/16/18 19:45 09/15/18 19:44 Acetaminophen/ Hydrocodone Bitart ([place] 5/325) 1 tab Q4H PRN ORAL For Pain 08/16/18 19:45 08/23/18 19:44 08/17/18 01:25 Albuterol/ Ipratropium (Albuterol/ Ipratropium) 3 ml Q4H PRN HHN Shortness of Breath 08/16/18 19:45 08/21/18 19:44 Amlodipine Besylate (Norvasc) 10 mg DAILY ORAL 08/17/18 09:00 09/16/18 08:59 08/17/18 09:35 Aspirin (ASA) 81 mg DAILY ORAL 08/17/18 09:00 09/16/18 08:59 08/17/18 09:36 Atorvastatin Calcium (Lipitor) 40 mg BEDTIME ORAL 08/16/18 21:00 09/15/18 20:59 08/17/18 20:34 Azithromycin (Zithromax) 500 mg DAILY ORAL 08/17/18 14:31 08/24/18 14:30 08/17/18 14:39 Carvedilol (Coreg) 6.25 mg EVERY 12 HOURS ORAL 08/17/18 21:00 09/15/18 20:59 Cefepime HCl 0.5 gm/Dextrose 55 ml @ 110 mls/hr Q24H IVPB 08/17/18 16:00 08/24/18 15:59 Clonidine HCl (Catapres Tab) 0.1 mg Q8HR ORAL 08/17/18 22:00 09/16/18 08:59 08/17/18 21:11 Clopidogrel Bisulfate (Plavix) 75 mg DAILY ORAL 08/17/18 09:00 09/16/18 08:59 08/17/18 12:20 Dextrose (Dextrose 50%) 25 ml Q30M PRN IV Hypoglycemia 08/16/18 20:00 09/15/18 19:59 Dextrose (Dextrose 50%) 50 ml Q30M PRN IV Hypoglycemia 08/16/18 20:00 09/15/18 19:59 Diphenhydramine HCl (Benadryl) 25 mg Q6H PRN ORAL Itching/Pruritis 08/16/18 19:45 09/15/18 19:44 Docusate Sodium (Colace) 100 mg EVERY 12 HOURS ORAL 08/16/18 21:00 09/15/18 20:59 08/17/18 20:21 Gabapentin (Neurontin) 300 mg BID ORAL 08/17/18 09:00 09/16/18 08:59 08/17/18 17:03 Hydralazine HCl (Apresoline) 75 mg EVERY 8 HOURS ORAL 08/17/18 22:00 09/15/18 21:59 08/17/18 21:12 Insulin Aspart (NovoLOG) BEFORE MEALS AND HS SUBQ 08/16/18 21:00 09/15/18 20:59 08/17/18 21:05 Levetiracetam (Keppra) 1,000 mg Q12HR ORAL 08/17/18 09:00 09/16/18 08:59 08/17/18 20:22 Levothyroxine Sodium (Synthroid) 50 mcg ACBREAKFAST ORAL 08/18/18 06:30 09/17/18 06:29 Lorazepam (Ativan 2mg/ml 1ml) 1 mg Q6H PRN IV agitation 08/17/18 20:30 08/24/18 20:29 Mirtazapine (Remeron) 15 mg BEDTIME ORAL 08/17/18 21:00 09/16/18 20:59 08/17/18 20:55 Ondansetron HCl (Zofran) 4 mg Q6H PRN IVP Nausea & Vomiting 08/16/18 19:45 09/15/18 19:44 Polyethylene Glycol (Miralax) 17 gm DAILYPRN PRN ORAL Constipation 08/17/18 11:45 09/16/18 11:44 Sitagliptin Phosphate (Januvia) 25 mg DAILY ORAL 08/17/18 09:00 09/16/18 08:59 08/17/18 09:35 Vitamin B Complex/ Vit C/Folic Acid (Nephrovite) 1 tab DAILY ORAL 08/17/18 09:00 09/16/18 08:59 08/17/18 09:35 Assessment/Plan Problem List: (1) Schizoaffective disorder, bipolar type ICD Codes: F25.0 - Schizoaffective disorder, bipolar type SNOMED: 61570508 (2) MDD (major depressive disorder), recurrent episode, moderate ICD Codes: F33.1 - Major depressive disorder, recurrent, moderate SNOMED: 98255917, 039296946 (3) Symptomatic anemia ICD Codes: D64.9 - Anemia, unspecified SNOMED: 311744877 (4) Altered level of consciousness ICD Codes: R40.4 - Transient alteration of awareness SNOMED: 7638523 (5) CHF (congestive heart failure) ICD Codes: I50.9 - Heart failure, unspecified SNOMED: 82793292 (6) Bradycardia ICD Codes: R00.1 - Bradycardia, unspecified SNOMED: 00771350 (7) Diabetes mellitus, type II ICD Codes: E11.9 - Type 2 diabetes mellitus without complications SNOMED: 74365012 (8) Hypothyroidism ICD Codes: E03.9 - Hypothyroidism, unspecified SNOMED: 96072529 (9) Costochondritis ICD Codes: M94.0 - Chondrocostal junction syndrome [[place]] SNOMED: 49889482 (10) GERD (gastroesophageal reflux disease) ICD Codes: K21.9 - Gastro-esophageal reflux disease without esophagitis SNOMED: 267480014 (11) HTN (hypertension) ICD Codes: I10 - Essential (primary) hypertension SNOMED: 16837799 (12) Anemia in chronic renal disease ICD Codes: N18.9 - Chronic kidney disease, unspecified; D63.1 - Anemia in chronic kidney disease SNOMED: 149766212, 957349939 (13) Cellulitis of arm, right ICD Codes: L03.113 - Cellulitis of right upper limb SNOMED: 091815281 (14) Clotted renal dialysis arteriovenous graft ICD Codes: T82.868A - Thrombosis due to vascular prosthetic devices, implants and grafts, initial encounter SNOMED: 25984616, 765602300 (15) ESRD (end stage renal disease) on dialysis ICD Codes: N18.6 - End stage renal disease; Z99.2 - Dependence on renal dialysis SNOMED: 825566006 (16) Seizure disorder ICD Codes: G40.909 - Epilepsy, unspecified, not intractable, without status epilepticus SNOMED: 159978443 (17) Non-compliance with renal dialysis ICD Codes: Z91.15 - Patient's noncompliance with renal dialysis SNOMED: 450025540984493 (18) Pulmonary edema ICD Codes: J81.1 - Chronic pulmonary edema SNOMED: 60033641 (19) Pneumonia ICD Codes: J18.9 - Pneumonia, unspecified organism SNOMED: 546834148 (20) History of colon cancer ICD Codes: Z85.038 - Personal history of other malignant neoplasm of large intestine SNOMED: 603562781 (21) Acute metabolic encephalopathy ICD Codes: G93.41 - Metabolic encephalopathy SNOMED: 97578293, 482049583 Assessment/Plan: Q4 hour Neuro Obs BLAKE Serial Troponin SBP<140 Na 135-145 HgB> 8, correct Anemia and identify cause Check iron/ vit b12/ folic acid Continue home meds Maintain normothermia Maintain normoglycemia with ISS Abx as per IM Check Lipids, HgBA1c, TSH No indication for neuroimaging at this time. Krysta White N.P. Aug 17, 2018 21:40
--- NOTE | 2018-08-17 22:00 | Initial Psychiatric Evaluation ---
Psychiatry Consultation Psychiatry Consultation Chief Complaint: Altered Level of Consciousness Allergies: Coded Allergies: No Known Allergies (Verified , 08/23/06) Medication History Scheduled Amlodipine Besylate* (Amlodipine Besylate*), 10 MG ORAL DAILY, (Reported) Atorvastatin Calcium* (Atorvastatin Calcium*), 40 MG ORAL BEDTIME, (Reported) Carvedilol* (Carvedilol*), 3.125 MG ORAL EVERY 12 HOURS, (Reported) Clopidogrel Bisulfate* (Plavix*), 75 MG ORAL DAILY, (Reported) Docusate Sodium* (Colace*), 100 MG ORAL TWICE A DAY, (Reported) Epoetin Mau (Procrit), 10,000 UNIT SUBQ 3XW, (Reported) Fluticasone/Salmeterol (Advair 500-50 Diskus), 1 PUFF INH EVERY 12 HOURS, ( Reported) Gabapentin (Neurontin), 300 MG ORAL BID, (Reported) Insulin Glargine (Lantus), 100 SUBQ BEDTIME, (Reported) Levetiracetam (Levetiracetam), 1,000 MG ORAL TWICE A DAY, (Reported) Levothyroxine Sodium (Synthroid), 50 MCG ORAL DAILY, (Reported) Minoxidil (Minoxidil), 2.5 MG ORAL BID, (Reported) Polyethylene Glycol 3350* (Miralax*), 17 GM ORAL DAILY, (Reported) Quetiapine Fumarate (Seroquel), 400 MG ORAL BEDTIME, (Reported) Sevelamer Hcl (Renagel), 3,200 MG ORAL THREE TIMES A DAY, (Reported) Sitagliptin* (Januvia*), 25 MG ORAL DAILY, (Reported) Vitamin B Cmplx/Vit C/Folic AC (Nephro-Denise Tablet), 1 TAB ORAL DAILY, (Reported ) Scheduled PRN Acetaminophen* (Acetaminophen 325MG Tablet*), 650 MG ORAL QID PRN for Pain Scale (3-5), (Reported) Acetaminophen* (Acetaminophen 325MG Tablet*), 650 MG ORAL Q6H PRN for For Pain, (Reported) Acetaminophen* (Acetaminophen 325MG Tablet*), 650 MG ORAL Q6H PRN for TEMPERATURE, (Reported) Bisacodyl (Dulcolax), 10 MG RC DAILY PRN for Constipation, (Reported) Clonidine Hcl* (Catapres*), 0.1 MG ORAL EVERY 8 HOURS PRN for For High Blood Pressure, (Reported) Hydralazine HCl (Hydralazine HCl), 50 MG ORAL FOUR TIMES A DAY PRN for For High Blood Pressure, (Reported) Hydrocodone Bit/Acetaminophen 5-325* ([place] 5-325*), 1 TAB ORAL Q4H PRN for For Pain, (Reported) Ipratropium [place] 0.5MG/2.5ML (Ipratropium [place] 0.5MG/2.5ML), 0.5 MG HHN FOUR TIMES A DAY PRN for Shortness of Breath, (Reported) Lactulose (Lactulose), 10 GM PO DAILY PRN for Constipation, (Reported) Discontinued Medications Aspirin* (Aspirin*), 81 MG ORAL DAILY, (Reported) Discontinued Reason: discontinued med Carvedilol* (Carvedilol*), 12.5 MG ORAL EVERY 12 HOURS, (Reported) Discontinued Reason: Prescription changed Clonidine Hcl (Clonidine Hcl), 0.2 MG PO BID, (Reported) Discontinued Reason: Prescription changed Objective Data Height (Feet): 5 Height (Inches): 6.00 Weight (Pounds): 190 Blanka Beckett MD Aug 17, 2018 22:00
[2018-08-18] VITALS (7 sets, daily range): BP systolic 131–169; BP diastolic 60–78
[2018-08-18] MEDS: LORazepam Inj 2mg/ml 1ml IV PRN ×2 (03:42→10:00)
[2018-08-18] MEDS: HydrALAZINE 25mg tab ORAL SCH ×3 (05:37→22:11)
[2018-08-18] MEDS: NovoLOG Insulin Flexpen SUBQ SCH ×4 (05:42→20:57)
--- NOTE | 2018-08-18 07:01 | NUR ---
HAND-OFF: Report given to CHEPE Charlton.
--- NOTE | 2018-08-18 07:22 | NUR ---
NURSE NOTES: I received the patient resting comfortably in bed. Bed in the lowest position and call light within reach. Soft wrist restraints on the patient. Patient does not display any signs of distress or SOB. I will continue to monitor the patient and implement care.
[2018-08-18] MEDS: Carvedilol 6.25mg Tab ORAL SCH ×2 (09:16→20:57)
[2018-08-18] MEDS: OLANZapine 2.5mg tab ORAL SCH ×3 (09:16→17:10)
[2018-08-18] MEDS: Aspirin Baby 81mg ORAL SCH (09:16)
[2018-08-18] MEDS: Docusate 100mg cap ORAL SCH ×2 (09:16→20:56)
[2018-08-18] MEDS: Nephrovite tab (Rena-Vite) ORAL SCH (09:16)
[2018-08-18] MEDS: sitaGLIPtin 25mg tab ORAL SCH (09:17)
[2018-08-18] MEDS: Azithromycin 250mg tab ORAL SCH (09:17)
--- NOTE | 2018-08-18 11:00 | NUR ---
NURSE NOTES: Patient cleaned and bed linen changes. Patient has soft wrist restraints on and radial pulses palpable. Bed in the lowest position and call light within reach.
--- NOTE | 2018-08-18 12:26 | Consultation ---
History of Present Illness General Date patient seen: Aug 18, 2018 Chief Complaint: Altered Level of Consciousness Referring physician: Dr. Escalona Present Illness HPI This is a 57-year-old female with multiple medical comorbidities including end- stage renal disease on dialysis and diabetes who presented with altered level consciousness for 2 days from the [facility]. On admission patient was identified to have multiple wounds on lower extremities and upper extremities requiring care. Surgery called to evaluate. Patient seen, patient evaluate, chart reviewed. Allergies: Coded Allergies: No Known Allergies (Verified , 08/23/06) Medication History Scheduled Amlodipine Besylate* (Amlodipine Besylate*), 10 MG ORAL DAILY, (Reported) Atorvastatin Calcium* (Atorvastatin Calcium*), 40 MG ORAL BEDTIME, (Reported) Carvedilol* (Carvedilol*), 3.125 MG ORAL EVERY 12 HOURS, (Reported) Clopidogrel Bisulfate* (Plavix*), 75 MG ORAL DAILY, (Reported) Docusate Sodium* (Colace*), 100 MG ORAL TWICE A DAY, (Reported) Epoetin Mau (Procrit), 10,000 UNIT SUBQ 3XW, (Reported) Fluticasone/Salmeterol (Advair 500-50 Diskus), 1 PUFF INH EVERY 12 HOURS, ( Reported) Gabapentin (Neurontin), 300 MG ORAL BID, (Reported) Insulin Glargine (Lantus), 100 SUBQ BEDTIME, (Reported) Levetiracetam (Levetiracetam), 1,000 MG ORAL TWICE A DAY, (Reported) Levothyroxine Sodium (Synthroid), 50 MCG ORAL DAILY, (Reported) Minoxidil (Minoxidil), 2.5 MG ORAL BID, (Reported) Polyethylene Glycol 3350* (Miralax*), 17 GM ORAL DAILY, (Reported) Quetiapine Fumarate (Seroquel), 400 MG ORAL BEDTIME, (Reported) Sevelamer Hcl (Renagel), 3,200 MG ORAL THREE TIMES A DAY, (Reported) Sitagliptin* (Januvia*), 25 MG ORAL DAILY, (Reported) Vitamin B Cmplx/Vit C/Folic AC (Nephro-Denise Tablet), 1 TAB ORAL DAILY, (Reported ) Scheduled PRN Acetaminophen* (Acetaminophen 325MG Tablet*), 650 MG ORAL QID PRN for Pain Scale (3-5), (Reported) Acetaminophen* (Acetaminophen 325MG Tablet*), 650 MG ORAL Q6H PRN for For Pain, (Reported) Acetaminophen* (Acetaminophen 325MG Tablet*), 650 MG ORAL Q6H PRN for TEMPERATURE, (Reported) Bisacodyl (Dulcolax), 10 MG RC DAILY PRN for Constipation, (Reported) Clonidine Hcl* (Catapres*), 0.1 MG ORAL EVERY 8 HOURS PRN for For High Blood Pressure, (Reported) Hydralazine HCl (Hydralazine HCl), 50 MG ORAL FOUR TIMES A DAY PRN for For High Blood Pressure, (Reported) Hydrocodone Bit/Acetaminophen 5-325* ([place] 5-325*), 1 TAB ORAL Q4H PRN for For Pain, (Reported) Ipratropium [place] 0.5MG/2.5ML (Ipratropium [place] 0.5MG/2.5ML), 0.5 MG HHN FOUR TIMES A DAY PRN for Shortness of Breath, (Reported) Lactulose (Lactulose), 10 GM PO DAILY PRN for Constipation, (Reported) Discontinued Medications Aspirin* (Aspirin*), 81 MG ORAL DAILY, (Reported) Discontinued Reason: MD discontinued med Carvedilol* (Carvedilol*), 12.5 MG ORAL EVERY 12 HOURS, (Reported) Discontinued Reason: Prescription changed Clonidine Hcl (Clonidine Hcl), 0.2 MG PO BID, (Reported) Discontinued Reason: Prescription changed Patient History Limited by: medical condition History Provided By: Medical Record, PMD Healthcare decision maker Resuscitation status Full Code Advanced Directive on File Past Medical/Surgical History Past Medical/Surgical History: (1) Schizoaffective disorder, bipolar type (2) Altered level of consciousness (3) MDD (major depressive disorder), recurrent episode, moderate (4) Symptomatic anemia (5) CHF (congestive heart failure) (6) Bradycardia (7) Diabetes mellitus, type II (8) Hypothyroidism (9) Costochondritis (10) GERD (gastroesophageal reflux disease) (11) HTN (hypertension) (12) Anemia in chronic renal disease (13) Cellulitis of arm, right (14) Clotted renal dialysis arteriovenous graft (15) ESRD (end stage renal disease) on dialysis (16) Seizure disorder (17) Non-compliance with renal dialysis (18) Pulmonary edema (19) Pneumonia (20) History of colon cancer Review of Systems ROS Narrative Cannot obtain given patient's current medical condition Physical Exam General Appearance: no apparent distress Lines, tubes and drains: peripheral HEENT: mucous membranes moist Neck: normal inspection Respiratory/Chest: normal breath sounds, no respiratory distress, no accessory muscle use Cardiovascular/Chest: normal rate Abdomen: soft, no organomegaly, no mass Extremities: other Skin Exam: other Neurologic: disoriented, other Last 24 Hour Vital Signs Date Time Temp Pulse Resp B/P (MAP) Pulse Ox O2 Delivery O2 Flow Rate FiO2 08/18/18 12:00 98.2 58 18 148/65 (92) 99 08/18/18 09:50 Room Air 08/18/18 09:50 62 20 95 Room Air 21 08/18/18 09:16 55 131/66 08/18/18 09:16 55 131/66 08/18/18 09:00 Room Air 08/18/18 08:00 54 08/18/18 08:00 98.3 55 18 131/66 (87) 97 08/18/18 05:37 169/78 08/18/18 05:37 169/78 08/18/18 04:00 98.3 57 19 169/78 (108) 93 08/18/18 04:00 57 08/18/18 00:19 94 Nasal Cannula 2.0 28 08/18/18 00:00 61 08/18/18 00:00 98.3 55 19 144/68 (93) 96 08/17/18 21:12 160/71 08/17/18 21:11 160/71 08/17/18 21:00 53 160/71 08/17/18 21:00 Room Air 08/17/18 20:18 81 20 94 Nasal Cannula 2.0 28 08/17/18 20:00 98.2 53 19 160/71 (100) 95 08/17/18 20:00 53 08/17/18 16:00 52 08/17/18 16:00 97.2 56 21 134/86 (102) 99 08/17/18 14:13 146/72 Intake and Output 08/17/18 08/18/18 19:00 07:00 Intake Total 55 ml Balance 55 ml Intake IV Total 55 ml # Voids 6 2 # Bowel Movements 1 Height (Feet): 5 Height (Inches): 6.00 Weight (Pounds): 190 Medications Current Medications Medications (Trade) Dose Ordered Sig/Gabriele Route PRN Reason Start Time Stop Time Status Last Admin Dose Admin Acetaminophen (Tylenol) 650 mg QIDPRN PRN ORAL Pain Scale (3-5) 08/16/18 19:45 09/15/18 19:44 Acetaminophen/ Hydrocodone Bitart ([place] 5/325) 1 tab Q4H PRN ORAL For Pain 08/16/18 19:45 08/23/18 19:44 08/17/18 01:25 Albuterol/ Ipratropium (Albuterol/ Ipratropium) 3 ml Q4H PRN HHN Shortness of Breath 08/16/18 19:45 08/21/18 19:44 Amlodipine Besylate (Norvasc) 10 mg DAILY ORAL 08/17/18 09:00 09/16/18 08:59 08/18/18 09:16 Aspirin (ASA) 81 mg DAILY ORAL 08/17/18 09:00 09/16/18 08:59 08/18/18 09:16 Atorvastatin Calcium (Lipitor) 40 mg BEDTIME ORAL 08/16/18 21:00 09/15/18 20:59 08/17/18 20:34 Azithromycin (Zithromax) 500 mg DAILY ORAL 08/17/18 14:31 08/24/18 14:30 08/18/18 09:17 Carvedilol (Coreg) 6.25 mg EVERY 12 HOURS ORAL 08/17/18 21:00 09/15/18 20:59 08/18/18 09:16 Cefepime HCl 0.5 gm/Dextrose 55 ml @ 110 mls/hr Q24H IVPB 08/17/18 16:00 08/24/18 15:59 Clonidine HCl (Catapres Tab) 0.1 mg Q8HR ORAL 08/17/18 22:00 09/16/18 08:59 08/18/18 05:37 Clopidogrel Bisulfate (Plavix) 75 mg DAILY ORAL 08/17/18 09:00 09/16/18 08:59 08/18/18 09:16 Dextrose (Dextrose 50%) 25 ml Q30M PRN IV Hypoglycemia 08/16/18 20:00 09/15/18 19:59 Dextrose (Dextrose 50%) 50 ml Q30M PRN IV Hypoglycemia 08/16/18 20:00 09/15/18 19:59 Diphenhydramine HCl (Benadryl) 25 mg Q6H PRN ORAL Itching/Pruritis 08/16/18 19:45 09/15/18 19:44 Docusate Sodium (Colace) 100 mg EVERY 12 HOURS ORAL 08/16/18 21:00 09/15/18 20:59 08/18/18 09:16 Gabapentin (Neurontin) 300 mg BID ORAL 08/17/18 09:00 09/16/18 08:59 08/18/18 09:16 Hydralazine HCl (Apresoline) 75 mg EVERY 8 HOURS ORAL 08/17/18 22:00 09/15/18 21:59 08/18/18 05:37 Insulin Aspart (NovoLOG) BEFORE MEALS AND HS SUBQ 08/16/18 21:00 09/15/18 20:59 08/17/18 21:05 Levetiracetam (Keppra) 1,000 mg Q12HR ORAL 08/17/18 09:00 09/16/18 08:59 08/18/18 09:15 Levothyroxine Sodium (Synthroid) 50 mcg ACBREAKFAST ORAL 08/18/18 06:30 09/17/18 06:29 08/18/18 05:42 Lorazepam (Ativan 2mg/ml 1ml) 1 mg Q6H PRN IV agitation 08/17/18 20:30 08/24/18 20:29 08/18/18 10:00 Mirtazapine (Remeron) 15 mg BEDTIME ORAL 08/17/18 21:00 09/16/18 20:59 08/17/18 20:55 Olanzapine (ZyPREXA) 2.5 mg TID ORAL 08/18/18 09:00 09/17/18 08:59 08/18/18 09:16 Ondansetron HCl (Zofran) 4 mg Q6H PRN IVP Nausea & Vomiting 08/16/18 19:45 09/15/18 19:44 Polyethylene Glycol (Miralax) 17 gm DAILYPRN PRN ORAL Constipation 08/17/18 11:45 09/16/18 11:44 Sitagliptin Phosphate (Januvia) 25 mg DAILY ORAL 08/17/18 09:00 09/16/18 08:59 08/18/18 09:17 Vitamin B Complex/ Vit C/Folic Acid (Nephrovite) 1 tab DAILY ORAL 08/17/18 09:00 09/16/18 08:59 08/18/18 09:16 Assessment/Plan Problem List: (1) Schizoaffective disorder, bipolar type ICD Codes: F25.0 - Schizoaffective disorder, bipolar type SNOMED: 70438569 (2) Altered level of consciousness ICD Codes: R40.4 - Transient alteration of awareness SNOMED: 8242923 (3) MDD (major depressive disorder), recurrent episode, moderate ICD Codes: F33.1 - Major depressive disorder, recurrent, moderate SNOMED: 93645232, 533900342 (4) Symptomatic anemia ICD Codes: D64.9 - Anemia, unspecified SNOMED: 858616389 (5) CHF (congestive heart failure) ICD Codes: I50.9 - Heart failure, unspecified SNOMED: 35842509 (6) Bradycardia ICD Codes: R00.1 - Bradycardia, unspecified SNOMED: 76893729 (7) Diabetes mellitus, type II ICD Codes: E11.9 - Type 2 diabetes mellitus without complications SNOMED: 21084393 (8) Hypothyroidism ICD Codes: E03.9 - Hypothyroidism, unspecified SNOMED: 56002420 (9) Costochondritis ICD Codes: M94.0 - Chondrocostal junction syndrome [Tietze] SNOMED: 87513838 (10) GERD (gastroesophageal reflux disease) ICD Codes: K21.9 - Gastro-esophageal reflux disease without esophagitis SNOMED: 984554042 (11) HTN (hypertension) ICD Codes: I10 - Essential (primary) hypertension SNOMED: 75940946 (12) Anemia in chronic renal disease ICD Codes: N18.9 - Chronic kidney disease, unspecified; D63.1 - Anemia in chronic kidney disease SNOMED: 283024504, 361802196 (13) Cellulitis of arm, right Assessment & Plan: 57-year-old female with multiple medical committees presenting with altered level of consciousness from a [facility] On admission patient identified to have multiple wounds including an open wound on her right upper extremity near the hand Etiology of wounds potentially from trauma Patient unable to verbalize history given current medical status Patient noted to have multiple scabs on her lower extremities as well including her right and left feet and her toes. Patient does have some distal ischemia in the toes Patient does have some bruising on the left lower extremity potentially from trauma as well No acute surgical intervention Apply Betadine to dry scabs covered with foam dressing Apply Therahoney to open wounds cover with foam dressing Offload pressure Turn every 2 hours We will monitor wounds while in hospital to ensure healing Nutritional optimization Thank you ICD Codes: L03.113 - Cellulitis of right upper limb SNOMED: 934876763 (14) Clotted renal dialysis arteriovenous graft ICD Codes: T82.868A - Thrombosis due to vascular prosthetic devices, implants and grafts, initial encounter SNOMED: 48283306, 973792385 (15) ESRD (end stage renal disease) on dialysis ICD Codes: N18.6 - End stage renal disease; Z99.2 - Dependence on renal dialysis SNOMED: 372782026 (16) Seizure disorder ICD Codes: G40.909 - Epilepsy, unspecified, not intractable, without status epilepticus SNOMED: 285809119 (17) Non-compliance with renal dialysis ICD Codes: Z91.15 - Patient's noncompliance with renal dialysis SNOMED: 723950399204565 (18) Pulmonary edema ICD Codes: J81.1 - Chronic pulmonary edema SNOMED: 37246515 (19) Pneumonia ICD Codes: J18.9 - Pneumonia, unspecified organism SNOMED: 391676725 (20) History of colon cancer ICD Codes: Z85.038 - Personal history of other malignant neoplasm of large intestine SNOMED: 708704804 Vic Wise Aug 18, 2018 12:26
--- NOTE | 2018-08-18 13:19 | Infectious Diseases Prog Note ---
Assessment/Plan Assessment/Plan Full consult dictated: A) 1) pneumonia, ? cap, ? hcap, comes from [facility], aspiration risk with cva hx 2) pmh noted 3) allergies - nkda P) 1) zosyn and azithromycin 2) check sc, labs, chest x-ray and serology 3) thank you Subjective Allergies: Coded Allergies: No Known Allergies (Verified , 08/23/06) Objective Vital Signs Last 24 Hour Vital Signs Date Time Temp Pulse Resp B/P (MAP) Pulse Ox O2 Delivery O2 Flow Rate FiO2 08/18/18 12:00 56 08/18/18 12:00 98.2 58 18 148/65 (92) 99 08/18/18 09:50 Room Air 08/18/18 09:50 62 20 95 Room Air 21 08/18/18 09:16 55 131/66 08/18/18 09:16 55 131/66 08/18/18 09:00 Room Air 08/18/18 08:00 54 08/18/18 08:00 98.3 55 18 131/66 (87) 97 08/18/18 05:37 169/78 08/18/18 05:37 169/78 08/18/18 04:00 98.3 57 19 169/78 (108) 93 08/18/18 04:00 57 08/18/18 00:19 94 Nasal Cannula 2.0 28 08/18/18 00:00 61 08/18/18 00:00 98.3 55 19 144/68 (93) 96 08/17/18 21:12 160/71 08/17/18 21:11 160/71 08/17/18 21:00 53 160/71 08/17/18 21:00 Room Air 08/17/18 20:18 81 20 94 Nasal Cannula 2.0 28 08/17/18 20:00 98.2 53 19 160/71 (100) 95 08/17/18 20:00 53 08/17/18 16:00 52 08/17/18 16:00 97.2 56 21 134/86 (102) 99 08/17/18 14:13 146/72 Height (Feet): 5 Height (Inches): 6.00 Weight (Pounds): 190 Microbiology Date/Time Source Procedure Growth Status 08/16/18 18:45 Blood Blood Culture - Preliminary NO GROWTH AFTER 24 HOURS Resulted 08/16/18 18:40 Blood Blood Culture - Preliminary NO GROWTH AFTER 24 HOURS Resulted 08/16/18 19:15 Rectum Received Current Medications Medications (Trade) Dose Ordered Sig/Gabriele Route PRN Reason Start Time Stop Time Status Last Admin Dose Admin Acetaminophen (Tylenol) 650 mg QIDPRN PRN ORAL Pain Scale (3-5) 08/16/18 19:45 09/15/18 19:44 Acetaminophen/ Hydrocodone Bitart ([place] 5/325) 1 tab Q4H PRN ORAL For Pain 08/16/18 19:45 08/23/18 19:44 08/17/18 01:25 Albuterol/ Ipratropium (Albuterol/ Ipratropium) 3 ml Q4H PRN HHN Shortness of Breath 08/16/18 19:45 08/21/18 19:44 Amlodipine Besylate (Norvasc) 10 mg DAILY ORAL 08/17/18 09:00 09/16/18 08:59 08/18/18 09:16 Aspirin (ASA) 81 mg DAILY ORAL 08/17/18 09:00 09/16/18 08:59 08/18/18 09:16 Atorvastatin Calcium (Lipitor) 40 mg BEDTIME ORAL 08/16/18 21:00 09/15/18 20:59 08/17/18 20:34 Azithromycin (Zithromax) 500 mg DAILY ORAL 08/17/18 14:31 08/24/18 14:30 08/18/18 09:17 Carvedilol (Coreg) 6.25 mg EVERY 12 HOURS ORAL 08/17/18 21:00 09/15/18 20:59 08/18/18 09:16 Cefepime HCl 0.5 gm/Dextrose 55 ml @ 110 mls/hr Q24H IVPB 08/17/18 16:00 08/24/18 15:59 Clonidine HCl (Catapres Tab) 0.1 mg Q8HR ORAL 08/17/18 22:00 09/16/18 08:59 08/18/18 05:37 Clopidogrel Bisulfate (Plavix) 75 mg DAILY ORAL 08/17/18 09:00 09/16/18 08:59 08/18/18 09:16 Dextrose (Dextrose 50%) 25 ml Q30M PRN IV Hypoglycemia 08/16/18 20:00 09/15/18 19:59 Dextrose (Dextrose 50%) 50 ml Q30M PRN IV Hypoglycemia 08/16/18 20:00 09/15/18 19:59 Diphenhydramine HCl (Benadryl) 25 mg Q6H PRN ORAL Itching/Pruritis 08/16/18 19:45 09/15/18 19:44 Docusate Sodium (Colace) 100 mg EVERY 12 HOURS ORAL 08/16/18 21:00 09/15/18 20:59 08/18/18 09:16 Gabapentin (Neurontin) 300 mg BID ORAL 08/17/18 09:00 09/16/18 08:59 08/18/18 09:16 Hydralazine HCl (Apresoline) 75 mg EVERY 8 HOURS ORAL 08/17/18 22:00 09/15/18 21:59 08/18/18 05:37 Insulin Aspart (NovoLOG) BEFORE MEALS AND HS SUBQ 08/16/18 21:00 09/15/18 20:59 08/17/18 21:05 Levetiracetam (Keppra) 1,000 mg Q12HR ORAL 08/17/18 09:00 09/16/18 08:59 08/18/18 09:15 Levothyroxine Sodium (Synthroid) 50 mcg ACBREAKFAST ORAL 08/18/18 06:30 09/17/18 06:29 08/18/18 05:42 Lorazepam (Ativan 2mg/ml 1ml) 1 mg Q6H PRN IV agitation 08/17/18 20:30 08/24/18 20:29 08/18/18 10:00 Mirtazapine (Remeron) 15 mg BEDTIME ORAL 08/17/18 21:00 09/16/18 20:59 08/17/18 20:55 Olanzapine (ZyPREXA) 2.5 mg TID ORAL 08/18/18 09:00 09/17/18 08:59 08/18/18 12:26 Ondansetron HCl (Zofran) 4 mg Q6H PRN IVP Nausea & Vomiting 08/16/18 19:45 09/15/18 19:44 Polyethylene Glycol (Miralax) 17 gm DAILYPRN PRN ORAL Constipation 08/17/18 11:45 09/16/18 11:44 Sitagliptin Phosphate (Januvia) 25 mg DAILY ORAL 08/17/18 09:00 09/16/18 08:59 08/18/18 09:17 Vitamin B Complex/ Vit C/Folic Acid (Nephrovite) 1 tab DAILY ORAL 08/17/18 09:00 09/16/18 08:59 08/18/18 09:16 Nehal Nolasco MD Aug 18, 2018 13:19
[2018-08-18] MEDS: Piperacillin/Tazobactam 2.25 GM in D5W 55 ML IVPB SCH ×2 (14:52→21:07)
--- NOTE | 2018-08-18 14:53 | General Progress Note ---
Assessment/Plan Status: stable Assessment/Plan: 57 year old female with ESRD on HD, DM2, HTN, HL, chronic diastolic CHF, COPD, PVD, hypothyroidism, obesity, bipolar disorder, hx of CVA, admitted for AMS likely 2/2 PNA #Acute encephalopathy likely 2/2 infectious causes #Poss PNA -ABX per ID - Zosyn and azithromycin -ID consult appreciated -Neurology consult appreciated -NCO2 PRN -f/u cultures #Acute on chronic anemia #Anemia of ESRD #ESRD -Patient may benefit from PRBC transfusion if Hb <7 -Consult Nephrology for HD treatments -monitor CBC and BMP #Chronic diastolic CHF #HTN #Hyperlipidemia -fluid management via HD -continue minoxidil, clonidine, Coreg, Norvasc and Lipitor #Type 2 DM #Obesity -continue Januvia -lispro SS #Multiple wounds on all extremities -wound care -Surgery consult apprecaited #Epilepsy -continue Keppra #Bipolar and anxiety -continue Seroquel #Hypothyroidism -continue levothyroxine VTE PPx SCD Full Code I spent 70 minutes on this patient's case, and 35 minutes was dedicated to counseling and/or care coordination. Subjective Date patient seen: Aug 18, 2018 ROS Limited/Unobtainable: Yes Allergies: Coded Allergies: No Known Allergies (Verified , 08/23/06) All Systems: reviewed and negative except above Subjective Overnight events noted, pt agitated requiring ativan PRN and restraints. Will try to take off restraints today, pt with no complaints Objective Last 24 Hour Vital Signs Date Time Temp Pulse Resp B/P (MAP) Pulse Ox O2 Delivery O2 Flow Rate FiO2 08/18/18 14:48 140/64 08/18/18 14:47 140/64 08/18/18 12:00 56 08/18/18 12:00 98.2 58 18 148/65 (92) 99 08/18/18 09:50 Room Air 08/18/18 09:50 62 20 95 Room Air 21 08/18/18 09:16 55 131/66 08/18/18 09:16 55 131/66 08/18/18 09:00 Room Air 08/18/18 08:00 54 08/18/18 08:00 98.3 55 18 131/66 (87) 97 08/18/18 05:37 169/78 08/18/18 05:37 169/78 08/18/18 04:00 98.3 57 19 169/78 (108) 93 08/18/18 04:00 57 08/18/18 00:19 94 Nasal Cannula 2.0 28 08/18/18 00:00 61 08/18/18 00:00 98.3 55 19 144/68 (93) 96 08/17/18 21:12 160/71 08/17/18 21:11 160/71 08/17/18 21:00 53 160/71 08/17/18 21:00 Room Air 08/17/18 20:18 81 20 94 Nasal Cannula 2.0 28 08/17/18 20:00 98.2 53 19 160/71 (100) 95 08/17/18 20:00 53 08/17/18 16:00 52 08/17/18 16:00 97.2 56 21 134/86 (102) 99 Intake and Output 08/17/18 08/18/18 19:00 07:00 Intake Total 55 ml Balance 55 ml IV Total 55 ml # Voids 6 2 # Bowel Movements 1 Height (Feet): 5 Height (Inches): 6.00 Weight (Pounds): 190 Objective General Appearance: WD/WN, no apparent distress, lethargic, confused Lines, tubes and drains: peripheral HEENT: normocephalic, atraumatic Neck: non-tender Respiratory/Chest: chest wall non-tender, lungs clear, normal breath sounds, no respiratory distress Cardiovascular/Chest: normal peripheral pulses, normal rate, regular rhythm Abdomen: normal bowel sounds Extremities: normal range of motion Skin Exam: other - multiple small wounds on all extremeties Neurologic: intermodal customer service II-XII grossly normal Lupe Escalona MD Aug 18, 2018 14:53
--- NOTE | 2018-08-18 15:50 | Nephrology Progress Note ---
Assessment/Plan Problem List: (1) ESRD (end stage renal disease) on dialysis (2) Hypothyroidism (3) HTN (hypertension) (4) Anemia in chronic renal disease (5) Schizoaffective disorder, bipolar type (6) Diabetes mellitus, type II Assessment - Metabolic Encephalopathy - End-stage renal disease, on hemodialysis. - Symptomatic Anemia - Anemia of chronic kidney disease. - HTN / Pulmonary HTN - Diabetes type 2. -HypoThyroidism - Morbid obesity. - H/O Colon Cancer - H/O Hep C - H/O Depression and Bipolar disease - Psych disease uncoaporative --Bilateral leg numbness --diabetic neuropathy --L5-S1 disc protrusion Plan refused blood work adjust BP meds Anemia yao HD for Saturday 08/19 per orders Subjective ROS Limited/Unobtainable: No Constitutional: Reports: malaise Objective Objective Last 24 Hour Vital Signs Date Time Temp Pulse Resp B/P (MAP) Pulse Ox O2 Delivery O2 Flow Rate FiO2 08/18/18 14:48 140/64 08/18/18 14:47 140/64 08/18/18 12:00 56 08/18/18 12:00 98.2 58 18 148/65 (92) 99 08/18/18 09:50 Room Air 08/18/18 09:50 62 20 95 Room Air 21 08/18/18 09:16 55 131/66 08/18/18 09:16 55 131/66 08/18/18 09:00 Room Air 08/18/18 08:00 54 08/18/18 08:00 98.3 55 18 131/66 (87) 97 08/18/18 05:37 169/78 08/18/18 05:37 169/78 08/18/18 04:00 98.3 57 19 169/78 (108) 93 08/18/18 04:00 57 08/18/18 00:19 94 Nasal Cannula 2.0 28 08/18/18 00:00 61 08/18/18 00:00 98.3 55 19 144/68 (93) 96 08/17/18 21:12 160/71 08/17/18 21:11 160/71 08/17/18 21:00 53 160/71 08/17/18 21:00 Room Air 08/17/18 20:18 81 20 94 Nasal Cannula 2.0 28 08/17/18 20:00 98.2 53 19 160/71 (100) 95 08/17/18 20:00 53 08/17/18 16:00 52 08/17/18 16:00 97.2 56 21 134/86 (102) 99 Intake and Output 08/17/18 08/18/18 19:00 07:00 Intake Total 55 ml Balance 55 ml IV Total 55 ml # Voids 6 2 # Bowel Movements 1 Height (Feet): 5 Height (Inches): 6.00 Weight (Pounds): 190 General Appearance: no apparent distress Cardiovascular: bradycardia Respiratory/Chest: decreased breath sounds Abdomen: soft Objective no change Eamon Solis MD Aug 18, 2018 15:50
--- NOTE | 2018-08-18 17:00 | NUR ---
NURSE NOTES: Patient's restraints were removed during dinner. The patient sat at the side of her bed and had dinner without any complications. She then sat in a chair without any complications or behavior problems. Patient went back to bed and was resting comfortably in bed. She said she did not want the restraints reapplied and would behave. Patient verbalized understanding as to what she needs to do in order to not have the restraints reapplied.
--- NOTE | 2018-08-18 19:15 | NUR ---
NURSE NOTES: Received report from Latesha MO, pt. in bed awake, no signs or symptoms of acute cardiac or respiratory distress noted, pt. is awake in bed A/O x's4- able to make needs known, manager monitoring is on, bed alarm on, side rails up x's3 and safety brakes engaged, call light within easy reach, and bed locked in position, pt. aware to ask for assist, pt. appears to be resting comfortably in room, pt. appears to be sating well on RA at 98%- no distress noted, Left shoulder 22G IV intact and patent, safety measures continued, will continue with plan of care.
--- NOTE | 2018-08-18 19:28 | NUR ---
HAND-OFF: Report given to CHEPE Douglas.
--- NOTE | 2018-08-18 19:30 | Consultation ---
DATE OF CONSULTATION: 08/18/2018 INFECTIOUS DISEASES CONSULTATION ATTENDING PHYSICIAN: Leonardo Rudolph M.D. REFERRING PHYSICIAN: Leonardo Rudolph M.D. REASON FOR CONSULTATION: Pneumonia. CHIEF COMPLAINT: The patient's chief complaint coming to the hospital is encephalopathy and renal failure. HISTORY OF PRESENT ILLNESS: This is a 57-year-old female, who comes to [facility] with encephalopathy and renal failure. The patient was noted to have a chest x-ray with pneumonia versus pulmonary edema. The patient has high risk for aspiration and healthcare-acquired pneumonia. She comes from an ECF and she is at aspiration risk with history of CVA. Certainly, she could have also community-acquired pneumonia. Infectious Diseases consultation was requested for antibiotic management. The patient was placed on Zosyn and azithromycin. The patient is somewhat lethargic and encephalopathic and really cannot give any further history. The patient is on Zosyn and azithromycin pending workup for pneumonia. Also, case discussed with RN. REVIEW OF SYSTEMS: CONSTITUTIONAL: The patient has generalized fatigue. No new focal weakness. She is responsive, but weak. She has no fever, no chills. HEAD AND NECK: No head pain or neck pain. CARDIAC: No chest pain. No pressors. GASTROINTESTINAL: No nausea, vomiting, or diarrhea. GENITOURINARY: No Hernandez. She is on hemodialysis. PULMONARY: Mild cough and congestion. No secretions. SKIN: No rash or itching. EXTREMITIES: No extremity pain. NEUROLOGIC: No seizures. No rash, itching, or seizure activity. Review of systems otherwise limited in this patient. She is not a very good historian. She has no fevers also. PAST MEDICAL HISTORY: The patient has a past medical history of following. The patient has a past medical history of end-stage renal disease on hemodialysis. She has history of type 2 diabetes. She has history of hypertension, history of hyperlipidemia, chronic diastolic heart failure, history of COPD, peripheral vascular disease, hypothyroidism, obesity, bipolar disease, CVA, weakness, and aspiration risk. ALLERGIES: No known drug allergies. No antibiotic allergies. SOCIAL HISTORY: Negative for smoking, alcohol, or drug abuse. FAMILY HISTORY: Noncontributory. Negative for exposure to tuberculosis or cancer. MEDICATIONS: Upon reviewing the MAR, the patient is on the following medications. She is on Zosyn, Zyprexa, levothyroxine, Synthroid, clonidine, Apresoline, hydralazine, carvedilol, Coreg, mirtazapine, lorazepam, azithromycin, and Zosyn. I have discontinued the cefepime. She is on polyethylene, amlodipine, and aspirin. She is on Plavix, Neurontin, and Keppra. She is on vitamin B, docusate, atorvastatin, insulin, albuterol, diphenhydramine, Zofran, and hydrocodone. Outside medications noted and reconciliated. PHYSICAL EXAMINATION: VITAL SIGNS: Temperature is 98.2 degrees, pulse rate is 68, respiratory rate is 18, blood pressure 140/65, and saturation 99%. GENERAL: The patient is alert and responsive, but weak. She is in restraints. HEAD AND NECK: Oral exam, no thrush. Eye exam, no icterus. NECK: Supple. No JVD. Normocephalic. HEART: Regular. No obvious gallop or murmur. Somewhat bradycardic. ABDOMEN: Soft. Positive bowel sounds. Nontender. LUNGS: Bilateral rhonchi, rales, and crackles. SKIN: No rash. No dermatitis. MUSCULOSKELETAL: No effusion. No septic arthritis. Lower extremities are without cellulitis. PERIPHERAL VASCULAR: No gangrene or cyanosis. GENITOURINARY: She has no Hernandez. She is hemodialysis patient. LINE SITES: Without phlebitis. NEUROLOGIC: Generalized weakness and responsive, but weak. LABORATORY AND DIAGNOSTIC DATA: Laboratory data as follows. White count 4.8 and hemoglobin 7.3. Creatinine is 8.9. LFTs were noted. Imaging studies, chest x-ray showed hazy interstitial opacities, right greater than left, which could be edema or pneumonia is noted and reviewed. Sputum culture has been ordered. Blood cultures are negative to date. Sodium 135. Cultures are pending. Imaging studies, the patient has bilateral interstitial opacities, right greater than left. Pneumonia versus pulmonary edema is noted and reviewed. ASSESSMENT AND PLAN: 1. The patient has what looks like possible pneumonia. She has high risk for healthcare-acquired pneumonia including methicillin-resistant Staphylococcus aureus and gram negatives. She has history of cerebrovascular accident and she is at risk for aspiration pneumonia. Rule out community-acquired pneumonia. At this time, we will continue the patient on Zosyn and azithromycin. Watch the patient clinically. May consider adding vancomycin if the patient deteriorates. Continue Zosyn and azithromycin for anaerobic gram-negative coverage and Streptococcus pneumoniae coverage and also atypical coverage. Continue Zosyn and azithromycin for aspiration and healthcare-acquired pneumonia versus community-acquired pneumonia. Check followup labs, chest x-ray, serology, and cultures including sputum culture. 2. The patient has encephalopathy. 3. Renal failure. 4. Hemodialysis. 5. End-stage renal disease. 6. Hypothyroidism. Continue with thyroid supplementation. 7. Diabetes type 2. Blood sugar treatment per primary. 8. Hypertension. 9. Hyperlipidemia. 10. Congestive heart failure. 11. Chronic obstructive pulmonary disease. 12. Cardiovascular disease. 13. Hypothyroidism. 14. Obesity. 15. Cerebrovascular accident and weakness. 16. Bipolar disease. 17. She has no known drug allergies. 18. Social history negative. 19. Family history noncontributory. 20. MAR was noted. 21. Case discussed with RN. 22. Continue treatment per primary consultants. Nehal Nolasco M.D. DR: Tamra JOB#: [id number] CC:
[2018-08-18] MEDS: Atorvastatin 80mg tab ORAL SCH (20:56)
[2018-08-19] VITALS: BP 146/51
--- NOTE | 2018-08-19 01:46 | NUR ---
NURSE NOTES: talk to lab personal regarding why BMP and CBC was cancelled- per concrete laborer- CMP was ordered and will cover BMP and CBC.
[2018-08-19 04:00] VITALS: BP 152/71
[2018-08-19] MEDS: NovoLOG Insulin Flexpen SUBQ SCH ×4 (05:36→21:00)
[2018-08-19] MEDS: Piperacillin/Tazobactam 2.25 GM in D5W 55 ML IVPB SCH ×3 (05:36→22:00)
[2018-08-19] MEDS: HydrALAZINE 25mg tab ORAL SCH ×4 (05:37→22:13)
--- NOTE | 2018-08-19 07:18 | NUR ---
HAND-OFF: Report given to Stoney Lee Rn, pt. remains stable and no signs of distress noted.
--- NOTE | 2018-08-19 07:44 | NUR ---
NURSE NOTES: Patient is asleep. No s/s of distress. Side rails are upx3, padded, bed is locked, and in lowest position. Call light is within reach. Will continue to monitor.
[2018-08-19 08:00] VITALS: BP 124/45
[2018-08-19] MEDS: Carvedilol 6.25mg Tab ORAL SCH ×2 (08:49→22:19)
[2018-08-19] MEDS: Nephrovite tab (Rena-Vite) ORAL SCH (08:51)
[2018-08-19] MEDS: OLANZapine 2.5mg tab ORAL SCH ×3 (08:51→17:53)
[2018-08-19] MEDS: Docusate 100mg cap ORAL SCH ×2 (08:51→22:14)
[2018-08-19] MEDS: Azithromycin 250mg tab ORAL SCH (08:51)
[2018-08-19] MEDS: sitaGLIPtin 25mg tab ORAL SCH (08:51)
[2018-08-19] MEDS: Aspirin Baby 81mg ORAL SCH (08:51)
[2018-08-19 12:00] VITALS: BP 154/76
--- NOTE | 2018-08-19 12:50 | Consultation ---
History of Present Illness General Chief Complaint: Altered Level of Consciousness Referring physician: Dr. Escalona Present Illness Allergies: Coded Allergies: No Known Allergies (Verified , 08/23/06) Medication History Scheduled Amlodipine Besylate* (Amlodipine Besylate*), 10 MG ORAL DAILY, (Reported) Atorvastatin Calcium* (Atorvastatin Calcium*), 40 MG ORAL BEDTIME, (Reported) Carvedilol* (Carvedilol*), 3.125 MG ORAL EVERY 12 HOURS, (Reported) Clopidogrel Bisulfate* (Plavix*), 75 MG ORAL DAILY, (Reported) Docusate Sodium* (Colace*), 100 MG ORAL TWICE A DAY, (Reported) Epoetin Mau (Procrit), 10,000 UNIT SUBQ 3XW, (Reported) Fluticasone/Salmeterol (Advair 500-50 Diskus), 1 PUFF INH EVERY 12 HOURS, ( Reported) Gabapentin (Neurontin), 300 MG ORAL BID, (Reported) Insulin Glargine (Lantus), 100 SUBQ BEDTIME, (Reported) Levetiracetam (Levetiracetam), 1,000 MG ORAL TWICE A DAY, (Reported) Levothyroxine Sodium (Synthroid), 50 MCG ORAL DAILY, (Reported) Minoxidil (Minoxidil), 2.5 MG ORAL BID, (Reported) Polyethylene Glycol 3350* (Miralax*), 17 GM ORAL DAILY, (Reported) Quetiapine Fumarate (Seroquel), 400 MG ORAL BEDTIME, (Reported) Sevelamer Hcl (Renagel), 3,200 MG ORAL THREE TIMES A DAY, (Reported) Sitagliptin* (Januvia*), 25 MG ORAL DAILY, (Reported) Vitamin B Cmplx/Vit C/Folic AC (Nephro-Denise Tablet), 1 TAB ORAL DAILY, (Reported ) Scheduled PRN Acetaminophen* (Acetaminophen 325MG Tablet*), 650 MG ORAL QID PRN for Pain Scale (3-5), (Reported) Acetaminophen* (Acetaminophen 325MG Tablet*), 650 MG ORAL Q6H PRN for For Pain, (Reported) Acetaminophen* (Acetaminophen 325MG Tablet*), 650 MG ORAL Q6H PRN for TEMPERATURE, (Reported) Bisacodyl (Dulcolax), 10 MG RC DAILY PRN for Constipation, (Reported) Clonidine Hcl* (Catapres*), 0.1 MG ORAL EVERY 8 HOURS PRN for For High Blood Pressure, (Reported) Hydralazine HCl (Hydralazine HCl), 50 MG ORAL FOUR TIMES A DAY PRN for For High Blood Pressure, (Reported) Hydrocodone Bit/Acetaminophen 5-325* (Rochester 5-325*), 1 TAB ORAL Q4H PRN for For Pain, (Reported) Ipratropium [address] 0.5MG/2.5ML (Ipratropium [address] 0.5MG/2.5ML), 0.5 MG HHN FOUR TIMES A DAY PRN for Shortness of Breath, (Reported) Lactulose (Lactulose), 10 GM PO DAILY PRN for Constipation, (Reported) Discontinued Medications Aspirin* (Aspirin*), 81 MG ORAL DAILY, (Reported) Discontinued Reason: MD discontinued med Carvedilol* (Carvedilol*), 12.5 MG ORAL EVERY 12 HOURS, (Reported) Discontinued Reason: Prescription changed Clonidine Hcl (Clonidine Hcl), 0.2 MG PO BID, (Reported) Discontinued Reason: Prescription changed Patient History Healthcare decision maker Resuscitation status Full Code Advanced Directive on File Physical Exam Last 24 Hour Vital Signs Date Time Temp Pulse Resp B/P (MAP) Pulse Ox O2 Delivery O2 Flow Rate FiO2 08/19/18 12:00 97.3 69 20 154/76 (102) 95 08/19/18 08:50 53 124/45 08/19/18 08:49 53 124/45 08/19/18 08:30 Room Air 08/19/18 08:00 97.9 53 20 124/45 (71) 94 08/19/18 08:00 99 08/19/18 07:46 74 20 96 Room Air 21 08/19/18 07:42 97 Room Air 21 08/19/18 07:41 66 18 98 Room Air 21 08/19/18 05:37 152/71 08/19/18 05:37 152/71 08/19/18 04:00 98.0 58 18 152/71 (98) 96 08/19/18 04:00 58 08/19/18 00:00 98.1 63 18 146/51 (82) 97 08/19/18 00:00 63 08/18/18 22:11 160/77 08/18/18 22:11 160/77 08/18/18 22:10 64 160/77 (104) 08/18/18 20:57 71 155/60 08/18/18 20:39 94 Room Air 21 08/18/18 20:38 68 18 94 Room Air 21 08/18/18 20:00 58 08/18/18 20:00 98.2 71 20 155/60 (91) 96 08/18/18 20:00 Room Air 08/18/18 16:00 53 08/18/18 16:00 97.7 57 18 136/70 (92) 99 08/18/18 14:48 140/64 08/18/18 14:47 140/64 Intake and Output 08/18/18 08/19/18 19:00 07:00 Intake Total 600 ml 55 ml Balance 600 ml 55 ml Intake Oral 600 ml IV Total 55 ml # Voids 1 Height (Feet): 5 Height (Inches): 6.00 Weight (Pounds): 190 Medications Current Medications Medications (Trade) Dose Ordered Sig/Gabriele Route PRN Reason Start Time Stop Time Status Last Admin Dose Admin Acetaminophen (Tylenol) 650 mg QIDPRN PRN ORAL Pain Scale (3-5) 08/16/18 19:45 09/15/18 19:44 Acetaminophen/ Hydrocodone Bitart ([place] 5/325) 1 tab Q4H PRN ORAL For Pain 08/16/18 19:45 08/23/18 19:44 08/17/18 01:25 Albuterol/ Ipratropium (Albuterol/ Ipratropium) 3 ml Q4H PRN HHN Shortness of Breath 08/16/18 19:45 08/21/18 19:44 Amlodipine Besylate (Norvasc) 10 mg DAILY ORAL 08/17/18 09:00 09/16/18 08:59 08/19/18 08:50 Aspirin (ASA) 81 mg DAILY ORAL 08/17/18 09:00 09/16/18 08:59 08/19/18 08:51 Atorvastatin Calcium (Lipitor) 40 mg BEDTIME ORAL 08/16/18 21:00 09/15/18 20:59 08/18/18 20:56 Azithromycin (Zithromax) 500 mg DAILY ORAL 08/17/18 14:31 08/24/18 14:30 08/19/18 08:51 Carvedilol (Coreg) 6.25 mg EVERY 12 HOURS ORAL 08/17/18 21:00 09/15/18 20:59 08/18/18 20:57 Clonidine HCl (Catapres Tab) 0.1 mg Q8HR ORAL 08/17/18 22:00 09/16/18 08:59 08/19/18 05:37 Clopidogrel Bisulfate (Plavix) 75 mg DAILY ORAL 08/17/18 09:00 09/16/18 08:59 08/19/18 08:50 Dextrose (Dextrose 50%) 25 ml Q30M PRN IV Hypoglycemia 08/16/18 20:00 09/15/18 19:59 Dextrose (Dextrose 50%) 50 ml Q30M PRN IV Hypoglycemia 08/16/18 20:00 09/15/18 19:59 Diphenhydramine HCl (Benadryl) 25 mg Q6H PRN ORAL Itching/Pruritis 08/16/18 19:45 09/15/18 19:44 Docusate Sodium (Colace) 100 mg EVERY 12 HOURS ORAL 08/16/18 21:00 09/15/18 20:59 08/19/18 08:51 Gabapentin (Neurontin) 300 mg BID ORAL 08/17/18 09:00 09/16/18 08:59 08/19/18 08:50 Hydralazine HCl (Apresoline) 75 mg EVERY 8 HOURS ORAL 08/17/18 22:00 09/15/18 21:59 08/19/18 05:37 Insulin Aspart (NovoLOG) BEFORE MEALS AND HS SUBQ 08/16/18 21:00 09/15/18 20:59 08/19/18 12:13 Levetiracetam (Keppra) 1,000 mg Q12HR ORAL 08/17/18 09:00 09/16/18 08:59 08/19/18 08:50 Levothyroxine Sodium (Synthroid) 50 mcg ACBREAKFAST ORAL 08/18/18 06:30 09/17/18 06:29 08/19/18 05:37 Lorazepam (Ativan 2mg/ml 1ml) 1 mg Q6H PRN IV agitation 08/17/18 20:30 08/24/18 20:29 08/18/18 10:00 Mirtazapine (Remeron) 15 mg BEDTIME ORAL 08/17/18 21:00 09/16/18 20:59 08/18/18 20:56 Olanzapine (ZyPREXA) 2.5 mg TID ORAL 08/18/18 09:00 09/17/18 08:59 08/19/18 12:12 Ondansetron HCl (Zofran) 4 mg Q6H PRN IVP Nausea & Vomiting 08/16/18 19:45 09/15/18 19:44 Piperacillin Sod/ Tazobactam Sod 2.25 gm/Dextrose 55 ml @ 110 mls/hr Q8HR IVPB 08/18/18 14:00 08/23/18 13:59 08/19/18 05:36 Polyethylene Glycol (Miralax) 17 gm DAILYPRN PRN ORAL Constipation 08/17/18 11:45 09/16/18 11:44 Sitagliptin Phosphate (Januvia) 25 mg DAILY ORAL 08/17/18 09:00 09/16/18 08:59 08/19/18 08:51 Vitamin B Complex/ Vit C/Folic Acid (Nephrovite) 1 tab DAILY ORAL 08/17/18 09:00 09/16/18 08:59 08/19/18 08:51 Assessment/Plan Assessment/Plan: Hematology Consultation Chief Complaint: Altered Level of Consciousness REQ MD: Luz Marina Rudolph DOS: 08/19/18 RFC: Anemia and low platelets ID 57 y old female presents from nursing facility with complaints of altered mental status Paramedics report that the nursing facility reported change in mentation over the past 1 to 2 days Patient herself is awake is able to have short conversations however appears confused patient also has multiple dressings in the upper and lower extremities Appears to have multiple abrasions Initially denies any any chest pain Initially denies shortness of breath however at bedside has significant cough History of present illness remains limited at the patient herself cannot provide appropriate input Unknown regarding fevers patient also receives dialysis And was uncooperative during her last session Noted to have PNa on admission and now is on abx Heme consulted for low plts as well as anemia Allergies: No Known Allergies (Verified , 08/23/06) Past Medical History: see triage record Pertinent Family History: none Reviewed Nursing Documentation: PMH: Agreed; PSxH: Agreed Past Medical History: No History, Except For Hx Cardiac Problems: Yes - palpitations Hx Hypertension: Yes Hx COPD: Yes Hx Diabetes: Yes Hx Cancer: Yes Hx Gastrointestinal Problems: Yes Hx Dialysis: Yes - MWF Hx Neurological Problems: Yes Hx Seizures: Yes Review of Systems: negative except mentioned in HPI PE Vital Signs Sp02 EP Interpretation: reviewed, normal General Appearance: no apparent distress - However appears confused Head: normocephalic, atraumatic Eyes: bilateral eye PERRL ENT: dry mucus membranes Neck: supple Respiratory: no retraction, crackles - bilaterally CV: regular rate, rhythm GI: non tender, soft MSK: other - Significant edema with erythema both lower extremities patient has multiple abrasions in the upper extremity Neurologic: responsive - To physical and verbal stimuli, however patient appears confused Skin: other - As above Lymphatic: no adenopathy Labs: reviewed Imaging: reviewed Assessment and Recs: # Anemia of chronic disease (or of iron deficiency) due to underlying chronic medical issues, multifactorial --> Anemia workup has been ordered, rule out gi bleed --> No evidence of hemolysis is noted, peripheral smear has been reviewed. --> Hgb goal >7. Transfuse prn. --> Epogen or iron at this time is not particularly indicated ( consider epo based on anemia panel ) --> Medications have been reviewed --> low threshold for gi evaluation in case has occult + # Thrombocytopenia - potential causes multifactorial, is likely due to pna meds reviewed as well --> Hep panel and HIV ordered --> US abd to evaluate for cirrhosis and hsm ordered --> Peripheral smear ordered to evaluate for blasts /schistocytes --> abx and other meds have been reviewed --> ok for ppx if plt >50k w/ either heparin or lovenox # Altered level of consciousness --> neuro has been consulted --> prn eval # ESRD (end stage renal disease) on dialysis --> HD 3x a week as per renal # PNA rx as per ID--> on abx # HTN / Pulmonary HTN # Diabetes type 2. The timing of this note does not necessarily reflect the time of the patient was seen. GREATLY APPRECIATE CONSULTATION. Odilon Min MD Aug 19, 2018 12:50
--- NOTE | 2018-08-19 13:41 | Nephrology Progress Note ---
Assessment/Plan Problem List: (1) ESRD (end stage renal disease) on dialysis (2) Hypothyroidism (3) HTN (hypertension) (4) Anemia in chronic renal disease (5) Schizoaffective disorder, bipolar type (6) Diabetes mellitus, type II Assessment - Metabolic Encephalopathy - End-stage renal disease, on hemodialysis. - Symptomatic Anemia - Anemia of chronic kidney disease. - HTN / Pulmonary HTN - Diabetes type 2. -HypoThyroidism - Morbid obesity. - H/O Colon Cancer - H/O Hep C - H/O Depression and Bipolar disease - Psych disease uncoaporative --Bilateral leg numbness --diabetic neuropathy --L5-S1 disc protrusion Plan refused blood work adjust BP meds Anemia yao HD for Saturday 08/19 per orders Subjective ROS Limited/Unobtainable: No Constitutional: Reports: malaise Objective Objective Last 24 Hour Vital Signs Date Time Temp Pulse Resp B/P (MAP) Pulse Ox O2 Delivery O2 Flow Rate FiO2 08/19/18 12:00 97.3 69 20 154/76 (102) 95 08/19/18 08:50 53 124/45 08/19/18 08:49 53 124/45 08/19/18 08:30 Room Air 08/19/18 08:00 97.9 53 20 124/45 (71) 94 08/19/18 08:00 99 08/19/18 07:46 74 20 96 Room Air 08/19/18 07:42 97 Room Air 08/19/18 07:41 66 18 98 Room Air 08/19/18 05:37 152/71 08/19/18 05:37 152/71 08/19/18 04:00 98.0 58 18 152/71 (98) 96 08/19/18 04:00 58 08/19/18 00:00 98.1 63 18 146/51 (82) 97 08/19/18 00:00 63 08/18/18 22:11 160/77 08/18/18 22:11 160/77 08/18/18 22:10 64 160/77 (104) 08/18/18 20:57 71 155/60 08/18/18 20:39 94 Room Air 21 08/18/18 20:38 68 18 94 Room Air 21 08/18/18 20:00 58 08/18/18 20:00 98.2 71 20 155/60 (91) 96 08/18/18 20:00 Room Air 08/18/18 16:00 53 08/18/18 16:00 97.7 57 18 136/70 (92) 99 08/18/18 14:48 140/64 08/18/18 14:47 140/64 Intake and Output 08/18/18 08/19/18 19:00 07:00 Intake Total 600 ml 55 ml Balance 600 ml 55 ml Intake Oral 600 ml IV Total 55 ml # Voids 1 Height (Feet): 5 Height (Inches): 6.00 Weight (Pounds): 190 General Appearance: no apparent distress Objective no change Eamon Solis MD Aug 19, 2018 13:41
--- NOTE | 2018-08-19 14:43 | Surgery Progress Note ---
Surgery Progress Note Subjective Additional Comments no acute events. stable. comfortable. labs noted Objective Last 24 Hour Vital Signs Date Time Temp Pulse Resp B/P (MAP) Pulse Ox O2 Delivery O2 Flow Rate FiO2 08/19/18 14:26 127/96 08/19/18 14:00 127/96 08/19/18 12:00 97.3 69 20 154/76 (102) 95 08/19/18 12:00 62 08/19/18 08:50 53 124/45 08/19/18 08:49 53 124/45 08/19/18 08:30 Room Air 08/19/18 08:00 97.9 53 20 124/45 (71) 94 08/19/18 08:00 54 08/19/18 07:46 74 20 96 Room Air 21 08/19/18 07:42 97 Room Air 21 08/19/18 07:41 66 18 98 Room Air 21 08/19/18 05:37 152/71 08/19/18 05:37 152/71 08/19/18 04:00 98.0 58 18 152/71 (98) 96 08/19/18 04:00 58 08/19/18 00:00 98.1 63 18 146/51 (82) 97 08/19/18 00:00 63 08/18/18 22:11 160/77 08/18/18 22:11 160/77 08/18/18 22:10 64 160/77 (104) 08/18/18 20:57 71 155/60 08/18/18 20:39 94 Room Air 21 08/18/18 20:38 68 18 94 Room Air 21 08/18/18 20:00 58 08/18/18 20:00 98.2 71 20 155/60 (91) 96 08/18/18 20:00 Room Air 08/18/18 16:00 53 08/18/18 16:00 97.7 57 18 136/70 (92) 99 08/18/18 14:48 140/64 08/18/18 14:47 140/64 I&O Intake and Output 08/18/18 08/19/18 19:00 07:00 Intake Total 600 ml 55 ml Balance 600 ml 55 ml Intake Oral 600 ml IV Total 55 ml # Voids 1 Dressing: saturated Wound: clean Cardiovascular: RSR Respiratory: clear Abdomen: soft, present bowel sounds, non-distended Extremities: no cyanosis, other Plan Problems: (1) Schizoaffective disorder, bipolar type (2) Altered level of consciousness (3) MDD (major depressive disorder), recurrent episode, moderate (4) Symptomatic anemia (5) CHF (congestive heart failure) (6) Bradycardia (7) Diabetes mellitus, type II (8) Hypothyroidism (9) Costochondritis (10) GERD (gastroesophageal reflux disease) (11) HTN (hypertension) (12) Anemia in chronic renal disease (13) Cellulitis of arm, right Assessment & Plan: 57-year-old female with multiple medical committees presenting with altered level of consciousness from a skilled nursing On admission patient identified to have multiple wounds including an open wound on her right upper extremity near the hand Etiology of wounds potentially from trauma Patient unable to verbalize history given current medical status Patient noted to have multiple scabs on her lower extremities as well including her right and left feet and her toes. Patient does have some distal ischemia in the toes Patient does have some bruising on the left lower extremity potentially from trauma as well No acute surgical intervention Apply Betadine to dry scabs covered with foam dressing Apply Therahoney to open wounds cover with foam dressing Offload pressure Turn every 2 hours We will monitor wounds while in hospital to ensure healing Nutritional optimization Thank you (14) Clotted renal dialysis arteriovenous graft (15) ESRD (end stage renal disease) on dialysis (16) Seizure disorder (17) Non-compliance with renal dialysis (18) Pulmonary edema (19) Pneumonia (20) History of colon cancer Vic Wise Aug 19, 2018 14:43
--- NOTE | 2018-08-19 15:11 | NUR ---
RD ASSESSMENT & RECOMMENDATIONS SEE CARE ACTIVITY FOR COMPLETE ASSESSMENT DAILY ESTIMATED NEEDS: Needs based on ESRD on HD, obese 65.6kg Adj 25-30 kcals/kg 4916-9609 total kcals 1.2-1.8 g protein/kg 79-118 g total protein Fluid per MD, on HD NUTRITION DIAGNOSIS: *Increased protein needs r/t renal dysfunction, as evidenced by pt with ESRD on HD. PO DIET RECOMMENDATIONS: RENAL DIET ADDITIONAL RECOMMENDATIONS: * Calibrated bedscale wt post HD/ standing wt preferred * Nepro qdaily w/ variable po intake * Monitor Bg, need for niss/ added CCHO diet * MARYELLEN BID for wound healing Pt on nephrovite
--- NOTE | 2018-08-19 15:16 | NUR ---
NURSE NOTES: WOUND CARE NOTES: Pt presented on admission with multiple dry scabbed skin lesions to both upper ext and hands. Pt stated having tendency to pick at her skin. NO areas of skin breakdwon noted over bony prominences. Pt demonstrated good mobility self repositioning. Pt educated on wound prevention and encouraged to turn frequently while in bed. Tx.Plan:Moisturize Skin with Phytoplex Remedy Skin Lotion as needed.
[2018-08-19 16:00] VITALS: BP 138/82
[2018-08-19] MEDS ORDERED: NS 275ml ONE (16:13)
--- NOTE | 2018-08-19 16:16 | NUR ---
NURSE NOTES: Patient pulled put IV and took off cafeteria monitor leads. Patient refusing to have IV restarted and refusing to have leads placed back. Dr. Escalona notified.
--- NOTE | 2018-08-19 16:17 | NUR ---
NURSE NOTES: HD order noted, [facility] [phone] called.
--- NOTE | 2018-08-19 16:42 | NUR ---
HAND-OFF: Report given to CHEPE Ogden.
--- NOTE | 2018-08-19 16:43 | NUR ---
NURSE NOTES: Received report from CHEPE Lee. The patient is screaming and tries to get out of the bed. Per Rosa, IV and tele monitoring refused by the patient and Dr. Monsivais was notified of refusal. Blood draw also refused by the patient. The patient's arterial duplex, abdominal ultrasound, HD still pending today per Rosa. Will follow up the order. The patient's bed in the lowest position, call light in reach, and fall, aspiration, and seizure precaution reinforced. Will continue plan of care. Addendum: 08/19/18 at 2003 by Kai Neal RN The patient has bruises and scratches on upper and lower bilateral extremities from scratching. Per CHEPE Lee, the patient was admitted with bruises and scratches on upper and lower bilateral extremities.
--- NOTE | 2018-08-19 17:40 | NUR ---
NURSE NOTES: Spoke with Gigi @ [facility] for hemodialysis today. Asked to call back for hemodialysis schedule as soon as possible. Will wait for the response. Will continue plan of care.
--- NOTE | 2018-08-19 17:41 | NUR ---
NURSE NOTES: Per CHEPE Lee, the previous nurse, the patient is scheduled for abdominal US today 1900. NPO for dinner. Educated the patient and will continue plan of care.
--- NOTE | 2018-08-19 17:43 | NUR ---
NURSE NOTES: Per Lisa, ultrasound department, informed that arterial duplex scan and abdominal ultrasound will be done within today after stat order of ER is done. Will continue to monitor the patient.
--- NOTE | 2018-08-19 17:46 | NUR ---
NURSE NOTES: Spoke with Naveen, laboratory department, regarding blood draw that was refused by the patient today. Will get the tubes ready so that blood draw can be possibly done during dialysis today.
--- NOTE | 2018-08-19 18:00 | NUR ---
NURSE NOTES: Spoke with Patrick @ [facility] regarding HD that should be done today. Patrick will figure out and call back as soon as he finds the nurse.
--- NOTE | 2018-08-19 18:30 | NUR ---
NURSE NOTES: The soil field technician was here to do abdominal ultrasound but was not able to perform testing since she tries to get out of the bed. Explained the patient of risk of not doing testing but was not able to understand. Will continue to monitor the patient.
--- NOTE | 2018-08-19 19:16 | NUR ---
NURSE NOTES: The patient walked out from the room and tried to sit on the nursing station chair multiple times. Guided the patient back to the room more than 5 times. The patient came out from the room again and sat on the floor but did not fall. Guided the patient back to the room with 4 nurses' support. Will continue to monitor patient closely.
--- NOTE | 2018-08-19 19:52 | NUR ---
NURSE NOTES: Patient is refusing dialysis at this time. Risks and benefits explained x3; patient still strongly refusing.
--- NOTE | 2018-08-19 19:55 | NUR ---
HAND-OFF: Report given to CHEPE Macdonald. Informed that the patient refused IV and tele monitoring, which Dr. Escalona was notified about. Abdominal ultrasound was not able to be completed by the biomass plant technician due to patient's refusal by getting out of the bed. Gave blood collection tubes to Renae so that blood test can be done during dialysis. Arterial duplex scan is pending and called Lisa, who is the biomass plant technician, and was told that she will do as soon as she is done with the stat testings. Endorsed plan of care.
[2018-08-19 20:00] VITALS: BP_SYST 162; BP_SYST 171; BP_DIAS 75; BP_DIAS 77
--- NOTE | 2018-08-19 20:08 | NUR ---
NURSE NOTES: Abdoulaye Donald, engineer conductor, Dr. Solis already made aware that patient refused dialysis tonight, but agrees to be dialyzed in AM, 08/20/18.
--- NOTE | 2018-08-19 20:12 | NUR ---
NURSE NOTES: Received report from CHEPE Ogden. Patient is awake lying semi-jeong's; resting comfortably. No signs of acute distress noted; denies pain at this time. No IV site noted as per morning shift RN, patient has been strongly refusing IV access. Will reattempt to convince patient to insert IV access at a later time. Wounds noted on right and left great toes and right second toe. Will take wound photos. Right upper arm AV shunt noted; thrill and bruit present. Bed at lowest position, brakes on, siderails up x3. Call light within reach. Will continue to monitor.
--- NOTE | 2018-08-19 21:15 | Consultation ---
DATE OF CONSULTATION: 08/19/2018 CONSULTING PHYSICIAN: Blanka Beckett M.D. HISTORY OF PRESENT ILLNESS: This is a 57-year-old female, well known to this physician from the previous encounter. The patient presents with anxiety, mood lability, poor insight and judgment into her mental condition. The patient also asking periodically to leave the hospital against medical advice. The patient has multiple medical problems including renal failure, encephalopathy, depression, bipolar disorder. She was here for altered mental status and worsening of her lab workup. The patient during the evaluation presents with target symptoms of irritable mood, low energy, memory impairment, agitation, confusion, and mood lability. PAST PSYCHIATRIC HISTORY: She has a history of schizoaffective disorder, depression. PAST MEDICAL HISTORY: 1. CHF. 2. Diabetes mellitus. 3. Obesity. 4. Hypothyroidism. 5. Costochondritis. 6. Hypertension. 7. ESRD. 8. Seizure disorder. 9. Pulmonary edema. 10. Pneumonia. 11. Anemia. ALLERGIES: No known drug allergies. SUBSTANCE ABUSE HISTORY: No known history of illicit drug use or alcohol. MENTAL STATUS EXAMINATION: The patient is alert, oriented times self and place. Obese. Uncooperative. Mood is irritable and angry. Affect is constricted, congruent with mood. Thought process is concrete. Thought content, no suicidal or homicidal ideation. The patient is delusional. Insight and judgment non-existent. Memory, concentration, and attention is impaired. ASSESSMENT: De Borgia I Schizoaffective disorder, acute encephalopathy. De Borgia II Deferred. De Borgia III As above. De Borgia IV Low. De Borgia V 20. PLAN: 1. The patient will be continued on olanzapine 2.5 mg t.i.d. 2. The patient will continue on mirtazapine. 3. Provide the patient with reality orientation and supportive therapy. We will continue to follow and readjust the medications. Gabi Jalloh JOB#: [id number] CC:
--- NOTE | 2018-08-19 21:32 | NUR ---
NURSE NOTES: Notified Dr. Escalona that patient is adamantly refusing dialysis at this time, but agrees to be dialyzed in AM, 08/20/[address] Solis is already made aware. Dr. Escalona also notified that patient strongly refuses IV access at this time as well as her IV antibiotics. No new orders received.
--- NOTE | 2018-08-19 22:07 | NUR ---
NURSE NOTES: Left Dr. Nolasco a message to inform him that patient is adamantly refusing IV access as well as her antibiotics. Awaiting callback for any further orders.
[2018-08-19] MEDS: Atorvastatin 80mg tab ORAL SCH (22:20)
--- NOTE | 2018-08-19 23:38 | General Progress Note ---
Assessment/Plan Status: stable Assessment/Plan: 57 year old female with ESRD on HD, DM2, HTN, HL, chronic diastolic CHF, COPD, PVD, hypothyroidism, obesity, bipolar disorder, hx of CVA, admitted for AMS likely 2/2 PNA #Acute encephalopathy likely 2/2 infectious causes #Poss PNA -ABX per ID - Zosyn and azithromycin -PT PULLED OUT IV LINE< REFUSED REINSERTION -ID consult appreciated -Neurology consult appreciated -NCO2 PRN -f/u cultures #Acute on chronic anemia #Anemia of ESRD #ESRD -Patient may benefit from PRBC transfusion if Hb <7 -Consult Nephrology for HD treatments -monitor CBC and BMP REFUSING BLOOD WORK -REFUSING HD #Chronic diastolic CHF #HTN #Hyperlipidemia -fluid management via HD -continue minoxidil, clonidine, Coreg, Norvasc and Lipitor #Type 2 DM #Obesity -continue Januvia -lispro SS #Multiple wounds on all extremities -wound care -Surgery consult apprecaited #Epilepsy -continue Keppra #Bipolar and anxiety -continue Seroquel -psych consult appreciated #Hypothyroidism -continue levothyroxine VTE PPx SCD Full Code I spent 70 minutes on this patient's case, and 35 minutes was dedicated to counseling and/or care coordination. Subjective Date patient seen: Aug 19, 2018 Allergies: Coded Allergies: No Known Allergies (Verified , 08/23/06) Subjective Overnight events noted, pt agitated requiring ativan PRN and restraints. refusing bloodwork, medications and HD Objective Last 24 Hour Vital Signs Date Time Temp Pulse Resp B/P (MAP) Pulse Ox O2 Delivery O2 Flow Rate FiO2 08/19/18 22:19 62 162/75 08/19/18 22:18 162/75 08/19/18 22:13 162/75 08/19/18 16:00 97.3 59 20 138/82 (100) 94 08/19/18 14:00 127/96 08/19/18 12:00 97.3 69 20 154/76 (102) 95 08/19/18 12:00 62 08/19/18 08:50 53 124/45 08/19/18 08:49 53 124/45 08/19/18 08:30 Room Air 08/19/18 08:00 97.9 53 20 124/45 (71) 94 08/19/18 08:00 54 08/19/18 07:46 74 20 96 Room Air 21 08/19/18 07:42 97 Room Air 21 08/19/18 07:41 66 18 98 Room Air 21 08/19/18 05:37 152/71 08/19/18 05:37 152/71 08/19/18 04:00 98.0 58 18 152/71 (98) 96 08/19/18 04:00 58 08/19/18 00:00 98.1 63 18 146/51 (82) 97 08/19/18 00:00 63 Intake and Output 08/18/18 08/19/18 18:59 06:59 Intake Total 600 ml 55 ml Balance 600 ml 55 ml Intake Oral 600 ml IV Total 55 ml # Voids 1 Height (Feet): 5 Height (Inches): 6.00 Weight (Pounds): 190 Objective General Appearance: WD/WN, no apparent distress, lethargic, confused Lines, tubes and drains: peripheral HEENT: normocephalic, atraumatic Neck: non-tender Respiratory/Chest: chest wall non-tender, lungs clear, normal breath sounds, no respiratory distress Cardiovascular/Chest: normal peripheral pulses, normal rate, regular rhythm Abdomen: normal bowel sounds Extremities: normal range of motion Skin Exam: other - multiple small wounds on all extremeties Neurologic: chief librarian extension department II-XII grossly normal Lupe Escalona MD Aug 19, 2018 23:38
--- NOTE | 2018-08-19 23:42 | NUR ---
NURSE NOTES: Attempted to apply surveillance monitor on patient, but patient is strongly refusing. Risks and benefits explained; still strongly refusing.
--- NOTE | 2018-08-19 23:42 | Neurology Progress Note ---
Interim History Interim History ROS Limited/Unobtainable: Yes Complaints: AMS Events: This visit was performed on August 19, [address] Jhonny Briscoe. Interim History Patient is intermittently confused but can follow commands- has a non focal exam with mild facial asymmetry at rest . Restless overnight Review of Systems Neuro Review of Systems MS/ Neuro exam stable but with increased agitation O/N Objective Physical Exam Last Vital Signs Date Time Temp Pulse Resp B/P (MAP) Pulse Ox O2 Delivery O2 Flow Rate FiO2 08/19/18 22:19 62 162/75 08/19/18 16:00 97.3 20 94 08/19/18 08:30 Room Air 08/19/18 07:46 21 08/18/18 00:19 2.0 General: well developed, well nourished, other - Mildly distressed, in restraints, with many circular wounds all over her body, and apparent leg cellulitis at this time. Patient wants to go home but is calm and conversant. Head: normocophalic Neck: no rigidity EENT: benign Neurologic Exam Mental Status: awake, alert, oriented x4, normal cognition, good mathematical skills, normal recent memory, normal remote memory, preserved visuospatial function Speech: normal speech, no dysarthia Language: normal language, no aphasia Cranial Nerve II: fundus normal, visual puri, no papilledema Cranial Nerves III, IV, : PERRLA, EOMI, pupils Cranial Nerve V: normal facial sensations, temporales function normal, masseters function normal, pterygoids function normal Cranial Nerve VII: normal facial expressions, other - Mild asymmetry at rest but no significant weakness or drift on exam. Cranial Nerve VIII: normal hearing, no nystagmus Cranial Nerve IX: normal palate elevation, gag response Cranial Nerve X: no voice hoarseness Cranial Nerve XI: SCM symmetric, trapezii function normal Cranial Nerve XII: tongue midline, no tongue atrophy/fasciculations Motor System: normal muscle tone, strength 5/5, no involuntary movement, no muscle wasting Sensory: normal pinprick, normal light touch, normal position sense, normal graphesthesia Coordination: normal finger to nose bilaterally, normal heel to pollock bilaterally, negative Romberg test Deep Tendon Reflexes: 2+ bicep (L), 2+ bicep (R), 2+ tricep (L), 2+ tricep (R) , 2+ brachioradialis (L), 2+ brachioradialis (R), 2+ knee (L), 2+ knee (R), 2+ ankle (L), 2+ ankle (R) Stance: normal Gait: stable, normal regular, heel + toe gait Objective Patient is alert and oriented to place and year but not month. She wants to go back to [facility] today. Impression/Recommendations Problems: (1) Schizoaffective disorder, bipolar type (2) MDD (major depressive disorder), recurrent episode, moderate (3) Symptomatic anemia (4) Altered level of consciousness (5) CHF (congestive heart failure) (6) Bradycardia (7) Diabetes mellitus, type II (8) Hypothyroidism (9) Costochondritis (10) GERD (gastroesophageal reflux disease) (11) HTN (hypertension) (12) Anemia in chronic renal disease (13) Cellulitis of arm, right (14) Clotted renal dialysis arteriovenous graft (15) ESRD (end stage renal disease) on dialysis (16) Seizure disorder (17) Non-compliance with renal dialysis (18) Pulmonary edema (19) Pneumonia (20) History of colon cancer Status: stable Diagnostic Impression This patient appears to potentially be experiencing DRUG withdrawal given her multiple site cellulitis and significant waxing / waning of behavioral agitation May simply be Acute Metabolic Encephalopathy secondary to infection/ metabolic disturbance but suspicion for drug use should be considered Tox likely to be negative at this time but will screen. Thyroid improving on labs Patient is more alert today than prior exams, but reported to have agitation O/ N with bleeding feet this morning (ambulating around between rooms as per report ) Recommendations Psych following and management for behavioral agitation deferred to them. No indication for neuroimaging at this time. Check Tox Screen Frequently reorient the patient SBP<140 Abx as per IM Neurologically stable at this time. Krysta White N.P. Aug 19, 2018 23:42
[2018-08-20] VITALS: BP 171/77
--- NOTE | 2018-08-20 00:12 | NUR ---
NURSE NOTES: Called Dr. Escalona regarding patient getting out of bed repeatedly and going into other patient's rooms. Received new order for bilateral soft wrist restraints. Noted and carried out.
--- NOTE | 2018-08-20 01:25 | NUR ---
NURSE NOTES: Per [employer] pharmacist, [facility] does not carry Zyprexa 5mg IM medication.
[2018-08-20] MEDS: LORazepam Inj 2mg/ml 1ml IV PRN ×2 (02:19→08:51)
[2018-08-20 04:00] VITALS: BP 172/72
[2018-08-20] MEDS: HydrALAZINE 25mg tab ORAL SCH ×2 (05:47→13:42)
[2018-08-20] MEDS: Piperacillin/Tazobactam 2.25 GM in D5W 55 ML IVPB SCH ×2 (05:47→13:43)
[2018-08-20] MEDS: NovoLOG Insulin Flexpen SUBQ SCH ×3 (06:13→16:30)
[2018-08-20 06:44] LABS: BASOPHILS % (AUTO) 0.9 % (0.0-2.0); EOSINOPHILS % (AUTO) 3.2 % (0.0-3.0); HEMATOCRIT 25.8 % (37.0-47.0); HEMOGLOBIN 8.5 G/DL (12.0-16.0); LYMPHOCYTES % (AUTO) 11.1 % (20.0-45.0); MEAN CORPUSCULAR VOLUME 93 FL (80-99); MONOCYTES % (AUTO) 9.7 % (1.0-10.0); NEUTROPHILS % (AUTO) 75.1 % (45.0-75.0); PLATELET COUNT 184 K/UL (150-450); RED BLOOD COUNT 2.76 M/UL (4.20-5.40); RED CELL DISTRIBUTION WIDTH 15.1 % (11.6-14.8); WHITE BLOOD COUNT 8.4 K/UL (4.8-10.8)
[2018-08-20 07:07] LABS: ALANINE AMINOTRANSFERASE 22 U/L (12-78); ALBUMIN 2.5 G/DL (3.4-5.0); ALBUMIN/GLOBULIN RATIO 0.6 (1.0-2.7); ALKALINE PHOSPHATASE 90 U/L (46-116); ANION GAP 20 mmol/L (5-15); ASPARTATE AMINO TRANSFERASE 17 U/L (15-37); BILIRUBIN,TOTAL 0.7 MG/DL (0.2-1.0); BLOOD UREA NITROGEN 79 mg/dL (7-18); CALCIUM 8.7 MG/DL (8.5-10.1); CARBON DIOXIDE 18 MMOL/L (21-32); CHLORIDE 95 MMOL/L (98-107); CREATININE 12.1 MG/DL (0.55-1.30); SODIUM 133 MMOL/L (136-145)
--- NOTE | 2018-08-20 07:35 | NUR ---
HAND-OFF: Report given to CHEPE Nash patient in stable condition.Eating breakfast.
--- NOTE | 2018-08-20 07:35 | NUR ---
NURSE NOTES: Received report from CHEPE Martin. Patient is awake agitated, and screaming. No signs of acute distress noted. Denies any pain at this time. IV site is intact and patent.Wounds noted on right and left great toes and right second toe. Noted patient has wounds on the two big toes. Right upper arm AV shunt noted; thrill and bruit present. Bed at lowest position, brakes engaged for safety. siderails up x3. Call light within reach. Will continue to monitor.
[2018-08-20 08:00] VITALS: BP 159/81
[2018-08-20] MEDS: OLANZapine 2.5mg tab ORAL SCH ×3 (08:45→17:34)
[2018-08-20] MEDS: Docusate 100mg cap ORAL SCH (08:47)
[2018-08-20] MEDS: Azithromycin 250mg tab ORAL SCH (08:47)
[2018-08-20] MEDS: Carvedilol 6.25mg Tab ORAL SCH (08:48)
[2018-08-20] MEDS: Aspirin Baby 81mg ORAL SCH (08:50)
[2018-08-20] MEDS: Nephrovite tab (Rena-Vite) ORAL SCH (08:51)
[2018-08-20] MEDS: sitaGLIPtin 25mg tab ORAL SCH (08:51)
[2018-08-20] MEDS ORDERED: Heparin 5000 units/ml inj SUBQ SCH (09:00)
--- NOTE | 2018-08-20 09:13 | NUR ---
RADIOLOGY DEPARTMENT, CHEST X-RAY DONE.-P.DYE
--- NOTE | 2018-08-20 10:53 | Nephrology Progress Note ---
Assessment/Plan Problem List: (1) ESRD (end stage renal disease) on dialysis (2) Hypothyroidism (3) HTN (hypertension) (4) Anemia in chronic renal disease (5) Schizoaffective disorder, bipolar type (6) Diabetes mellitus, type II Assessment - Metabolic Encephalopathy - End-stage renal disease, on hemodialysis. - Symptomatic Anemia - Anemia of chronic kidney disease. - HTN / Pulmonary HTN - Diabetes type 2. -HypoThyroidism - Morbid obesity. - H/O Colon Cancer - H/O Hep C - H/O Depression and Bipolar disease - Psych disease uncoaporative --Bilateral leg numbness --diabetic neuropathy --L5-S1 disc protrusion Plan refused dialysis 08/19 evening ! about to get started on HD now- adjust BP meds Anemia yao per orders Subjective ROS Limited/Unobtainable: No Constitutional: Reports: malaise Objective Objective Last 24 Hour Vital Signs Date Time Temp Pulse Resp B/P (MAP) Pulse Ox O2 Delivery O2 Flow Rate FiO2 08/20/18 09:00 Room Air 08/20/18 08:50 58 159/81 08/20/18 08:48 58 159/81 08/20/18 08:00 97.3 58 18 159/81 (107) 99 08/20/18 08:00 57 08/20/18 05:47 172/72 08/20/18 05:46 172/72 08/20/18 04:00 97.2 58 20 172/72 (105) 97 08/20/18 04:00 57 08/20/18 01:11 60 08/20/18 00:00 97.3 64 18 171/77 (108) 97 08/19/18 22:19 62 162/75 08/19/18 22:18 162/75 08/19/18 22:13 162/75 08/19/18 21:00 Room Air 08/19/18 20:00 97.4 62 18 162/75 (104) 95 08/19/18 16:00 97.3 59 20 138/82 (100) 94 08/19/18 14:00 127/96 08/19/18 12:00 97.3 69 20 154/76 (102) 95 08/19/18 12:00 62 Intake and Output 08/19/18 08/20/18 19:00 07:00 Intake Total 175 ml Balance 175 ml Intake Oral 120 ml IV Total 55 ml # Voids 2 Laboratory Tests 08/20/18 05:50: White Blood Count 8.4, Red Blood Count 2.76L, Hemoglobin 8.5L, Hematocrit 25.8L , Mean Corpuscular Volume 93, Mean Corpuscular Hemoglobin 30.7, Mean Corpuscular Hemoglobin Concent 32.8, Red Cell Distribution Width 15.1H, Platelet Count 184, Mean Platelet Volume 7.2, Neutrophils (%) (Auto) 75.1H, Lymphocytes (%) (Auto) 11.1L, Monocytes (%) (Auto) 9.7, Eosinophils (%) (Auto) 3.2H, Basophils (%) (Auto) 0.9, Reticulocyte Count 1.8, Sodium Level 133L, Potassium Level 5.0, Chloride Level 95L, Carbon Dioxide Level 18L, Anion Gap 20H , Blood Urea Nitrogen 79H, Creatinine 12.1H, Estimat Glomerular Filtration Rate 3.2, Glucose Level 107H, Calcium Level 8.7, Ferritin 427H, Total Bilirubin 0.7, Aspartate Amino Transf (AST/SGOT) 17, Alanine Aminotransferase (ALT/SGPT) 22, Alkaline Phosphatase 90, Lactate Dehydrogenase 242H, Total Protein 6.7, Albumin 2.5L, Globulin 4.2, Albumin/Globulin Ratio 0.6L, Thyroid Stimulating Hormone ( TSH) 4.299H, Hepatitis A IgM Antibody [Pending], Hepatitis B Surface Antigen [ Pending], Hepatitis B Core IgM Antibody [Pending], Hepatitis C Antibody [Pending ], HIV (1&2) Antibody Rapid Negative Height (Feet): 5 Height (Inches): 6.00 Weight (Pounds): 190 General Appearance: no apparent distress Cardiovascular: normal rate Respiratory/Chest: lungs clear Abdomen: soft Objective no change Eamon Solis MD Aug 20, 2018 10:53
[2018-08-20 12:00] VITALS: BP 153/71
--- NOTE | 2018-08-20 12:18 | Surgery Progress Note ---
Surgery Progress Note Subjective Additional Comments no acute events. stable comfortable. Objective Last 24 Hour Vital Signs Date Time Temp Pulse Resp B/P (MAP) Pulse Ox O2 Delivery O2 Flow Rate FiO2 08/20/18 10:02 60 20 99 Room Air 21 08/20/18 09:00 Room Air 08/20/18 08:50 58 159/81 08/20/18 08:48 58 159/81 08/20/18 08:00 97.3 58 18 159/81 (107) 99 08/20/18 08:00 57 08/20/18 05:47 172/72 08/20/18 05:46 172/72 08/20/18 04:00 97.2 58 20 172/72 (105) 97 08/20/18 04:00 57 08/20/18 01:11 60 08/20/18 00:00 97.3 64 18 171/77 (108) 97 08/19/18 22:19 62 162/75 08/19/18 22:18 162/75 08/19/18 22:13 162/75 08/19/18 21:00 Room Air 08/19/18 20:00 97.4 62 18 162/75 (104) 95 08/19/18 16:00 97.3 59 20 138/82 (100) 94 08/19/18 14:00 127/96 I&O Intake and Output 08/19/18 08/20/18 19:00 07:00 Intake Total 175 ml Balance 175 ml Intake Oral 120 ml IV Total 55 ml # Voids 2 Dressing: dry Wound: clean Cardiovascular: RSR Respiratory: clear Abdomen: soft, present bowel sounds, non-distended Extremities: other Laboratory Tests Test 08/20/18 05:50 White Blood Count 8.4 K/UL (4.8-10.8) Red Blood Count 2.76 M/UL (4.20-5.40) L Hemoglobin 8.5 G/DL (12.0-16.0) L Hematocrit 25.8 % (37.0-47.0) L Mean Corpuscular Volume 93 FL (80-99) Mean Corpuscular Hemoglobin 30.7 PG (27.0-31.0) Mean Corpuscular Hemoglobin Concent 32.8 G/DL (32.0-36.0) Red Cell Distribution Width 15.1 % (11.6-14.8) H Platelet Count 184 K/UL (150-450) Mean Platelet Volume 7.2 FL (6.5-10.1) Neutrophils (%) (Auto) 75.1 % (45.0-75.0) H Lymphocytes (%) (Auto) 11.1 % (20.0-45.0) L Monocytes (%) (Auto) 9.7 % (1.0-10.0) Eosinophils (%) (Auto) 3.2 % (0.0-3.0) H Basophils (%) (Auto) 0.9 % (0.0-2.0) Reticulocyte Count 1.8 % (0.5-2.0) Sodium Level 133 MMOL/L (136-145) L Potassium Level 5.0 MMOL/L (3.5-5.1) Chloride Level 95 MMOL/L (98-107) L Carbon Dioxide Level 18 MMOL/L (21-32) L Anion Gap 20 mmol/L (5-15) H Blood Urea Nitrogen 79 mg/dL (7-18) H Creatinine 12.1 MG/DL (0.55-1.30) H Estimat Glomerular Filtration Rate 3.2 mL/min (>60) Glucose Level 107 MG/DL (74-106) H Calcium Level 8.7 MG/DL (8.5-10.1) Ferritin 427 NG/ML (8-388) H Total Bilirubin 0.7 MG/DL (0.2-1.0) Aspartate Amino Transf (AST/SGOT) 17 U/L (15-37) Alanine Aminotransferase (ALT/SGPT) 22 U/L (12-78) Alkaline Phosphatase 90 U/L (46-116) Lactate Dehydrogenase 242 U/L (81-234) H Total Protein 6.7 G/DL (6.4-8.2) Albumin 2.5 G/DL (3.4-5.0) L Globulin 4.2 g/dL Albumin/Globulin Ratio 0.6 (1.0-2.7) L Thyroid Stimulating Hormone (TSH) 4.299 uiU/mL (0.358-3.740) Hepatitis A IgM Antibody Pending Hepatitis B Surface Antigen Pending Hepatitis B Core IgM Antibody Pending Hepatitis C Antibody Pending HIV (1&2) Antibody Rapid Negative (NEGATIVE) Plan Problems: (1) Schizoaffective disorder, bipolar type (2) Altered level of consciousness (3) MDD (major depressive disorder), recurrent episode, moderate (4) Symptomatic anemia (5) CHF (congestive heart failure) (6) Bradycardia (7) Diabetes mellitus, type II (8) Hypothyroidism (9) Costochondritis (10) GERD (gastroesophageal reflux disease) (11) HTN (hypertension) (12) Anemia in chronic renal disease (13) Cellulitis of arm, right Assessment & Plan: 57-year-old female with multiple medical committees presenting with altered level of consciousness from a fpc On admission patient identified to have multiple wounds including an open wound on her right upper extremity near the hand Etiology of wounds potentially from trauma Patient unable to verbalize history given current medical status Patient noted to have multiple scabs on her lower extremities as well including her right and left feet and her toes. Patient does have some distal ischemia in the toes Patient does have some bruising on the left lower extremity potentially from trauma as well No acute surgical intervention Apply Betadine to dry scabs covered with foam dressing Apply Therahoney to open wounds cover with foam dressing Offload pressure Turn every 2 hours We will monitor wounds while in hospital to ensure healing Nutritional optimization Thank you (14) Clotted renal dialysis arteriovenous graft (15) ESRD (end stage renal disease) on dialysis (16) Seizure disorder (17) Non-compliance with renal dialysis (18) Pulmonary edema (19) Pneumonia (20) History of colon cancer Vic Wise Aug 20, 2018 12:18
--- NOTE | 2018-08-20 12:43 | NUR ---
CASE MANAGEMENT:REVIEW 08/20/18 SI: METABOLIC ENCEPHALOPATHY ESRD W/HD. SYMPTOMATIC ANEMIA 97.6 58 18 153/71 98% ON RA H/H-8.5/25.8 BUN+79 CR+12.1 IS: IV ZOSYN Q8HRS EPOETIN SQ MWF HEPARIN SQ Q12 ZYPREXA PO TID SYNTHROID PO QAM CLONIDINE PO Q8HRS HYDRALAZINE PO Q8 COREG PO Q12 AZITHROMYCIN PO QD NORVASC PO QD ASA PO QD KEPPRA PO Q12 : TELEMETRY STATUS DCP: FROM [facility]
--- NOTE | 2018-08-20 13:23 | Diagnostic Imaging Report ---
Indication: Dyspnea Comparison: 08/16/2018 A single view chest radiograph was obtained. Findings: Pulmonary vascular congestion is present with cardiomegaly. There is no change. IMPRESSION: CHF
[2018-08-20] MEDS ORDERED: AUGMENTIN 875-1 EAC1 ORAL (13:37)
--- NOTE | 2018-08-20 13:39 | Discharge Instructions ---
Discharge Instructions Discharge Instructions Follow up with: pcp Call MD/Return to Hospital if: fevers, hypoxic, intractable pain Diet: renal diabetic Resume Normal Activity?: Yes Activity: resume normal activities For Congestive Heart Failure Reminder Report to your physician any weight gain of 5 pounds or more in one week. Lupe Escalona MD Aug 20, 2018 13:39
[2018-08-20] MEDS: HYDROcodone/Acetamin 5/325 tab ORAL PRN (13:41)
--- NOTE | 2018-08-20 14:26 | NUR ---
DISCHARGE PLANNED PATIENT WILL RETURN TO: [facility] ROOM [address] SKILLED T: [phone] FOR NURSE TO NURSE REPORT [facility] HAS BEEN ARRANGED FOR [address]
--- NOTE | 2018-08-20 15:04 | Hematology/Onc Progress Note ---
Assessment/Plan Assessment/Plan Assessment and Recs: # Anemia of chronic disease (or of iron deficiency) due to underlying chronic medical issues, multifactorial --> Anemia workup has been ordered, rule out gi bleed --> No evidence of hemolysis is noted, peripheral smear has been reviewed. --> Hgb goal >7. Transfuse prn. --> Epogen or iron at this time is not particularly indicated ( consider epo based on anemia panel ) --> Medications have been reviewed --> low threshold for gi evaluation in case has occult + # Thrombocytopenia - potential causes multifactorial, is likely due to pna meds reviewed as well --> Hep panel and HIV ordered --> US abd to evaluate for cirrhosis and hsm ordered --> Peripheral smear ordered to evaluate for blasts /schistocytes --> abx and other meds have been reviewed --> ok for ppx if plt >50k w/ either heparin or lovenox # Altered level of consciousness --> neuro has been consulted --> prn eval # ESRD (end stage renal disease) on dialysis --> HD 3x a week as per renal # PNA rx as per ID--> on abx # HTN / Pulmonary HTN # Diabetes type 2. The timing of this note does not necessarily reflect the time of the patient was seen. GREATLY APPRECIATE CONSULTATION. Subjective Allergies: Coded Allergies: No Known Allergies (Verified , 08/23/06) Subjective 08/20: Objective Objective Current Medications Medications (Trade) Dose Ordered Sig/Gabriele Route PRN Reason Start Time Stop Time Status Last Admin Dose Admin Acetaminophen (Tylenol) 650 mg QIDPRN PRN ORAL Pain Scale (3-5) 08/16/18 19:45 09/15/18 19:44 Acetaminophen/ Hydrocodone Bitart ([place] 5/325) 1 tab Q4H PRN ORAL For Pain 08/16/18 19:45 08/23/18 19:44 08/20/18 13:41 Albuterol/ Ipratropium (Albuterol/ Ipratropium) 3 ml Q4H PRN HHN Shortness of Breath 08/16/18 19:45 08/21/18 19:44 Amlodipine Besylate (Norvasc) 10 mg DAILY ORAL 08/17/18 09:00 09/16/18 08:59 08/20/18 08:50 Aspirin (ASA) 81 mg DAILY ORAL 08/17/18 09:00 09/16/18 08:59 08/20/18 08:50 Atorvastatin Calcium (Lipitor) 40 mg BEDTIME ORAL 08/16/18 21:00 09/15/18 20:59 08/19/18 22:20 Azithromycin (Zithromax) 500 mg DAILY ORAL 08/17/18 14:31 08/24/18 14:30 08/20/18 08:47 Carvedilol (Coreg) 6.25 mg EVERY 12 HOURS ORAL 08/17/18 21:00 09/15/18 20:59 08/20/18 08:48 Clonidine HCl (Catapres Tab) 0.1 mg Q8HR ORAL 08/17/18 22:00 09/16/18 08:59 08/20/18 13:40 Clopidogrel Bisulfate (Plavix) 75 mg DAILY ORAL 08/17/18 09:00 09/16/18 08:59 08/20/18 08:48 Dextrose (Dextrose 50%) 25 ml Q30M PRN IV Hypoglycemia 08/16/18 20:00 09/15/18 19:59 Dextrose (Dextrose 50%) 50 ml Q30M PRN IV Hypoglycemia 08/16/18 20:00 09/15/18 19:59 Diphenhydramine HCl (Benadryl) 25 mg Q6H PRN ORAL Itching/Pruritis 08/16/18 19:45 09/15/18 19:44 08/20/18 06:24 Docusate Sodium (Colace) 100 mg EVERY 12 HOURS ORAL 08/16/18 21:00 09/15/18 20:59 08/20/18 08:47 Epoetin Mau (Epoetin Mau(ESRD on dialysis)) 4,000 unit SUN-SUN-SUN SUBQ 08/21/18 21:00 09/20/18 20:59 Gabapentin (Neurontin) 300 mg BID ORAL 08/17/18 09:00 09/16/18 08:59 08/20/18 08:47 Heparin Sodium (Porcine) (Heparin 5000 units/ml) 5,000 units EVERY 12 HOURS SUBQ 08/20/18 09:00 09/19/18 08:59 08/20/18 08:53 Hydralazine HCl (Apresoline) 75 mg EVERY 8 HOURS ORAL 08/17/18 22:00 09/15/18 21:59 08/20/18 13:42 Insulin Aspart (NovoLOG) BEFORE MEALS AND HS SUBQ 08/16/18 21:00 09/15/18 20:59 08/20/18 12:18 Levetiracetam (Keppra) 1,000 mg Q12HR ORAL 08/17/18 09:00 09/16/18 08:59 08/20/18 08:50 Levothyroxine Sodium (Synthroid) 50 mcg ACBREAKFAST ORAL 08/18/18 06:30 09/17/18 06:29 08/20/18 05:45 Lorazepam (Ativan 2mg/ml 1ml) 1 mg Q6H PRN IV agitation 08/17/18 20:30 08/24/18 20:29 08/20/18 08:51 Mirtazapine (Remeron) 15 mg BEDTIME ORAL 08/17/18 21:00 09/16/18 20:59 08/19/18 22:27 Olanzapine (ZyPREXA) 2.5 mg TID ORAL 08/18/18 09:00 09/17/18 08:59 08/20/18 12:19 Ondansetron HCl (Zofran) 4 mg Q6H PRN IVP Nausea & Vomiting 08/16/18 19:45 09/15/18 19:44 Piperacillin Sod/ Tazobactam Sod 2.25 gm/Dextrose 55 ml @ 110 mls/hr Q8HR IVPB 08/18/18 14:00 08/23/18 13:59 08/20/18 13:43 Polyethylene Glycol (Miralax) 17 gm DAILYPRN PRN ORAL Constipation 08/17/18 11:45 09/16/18 11:44 Sitagliptin Phosphate (Januvia) 25 mg DAILY ORAL 08/17/18 09:00 09/16/18 08:59 08/20/18 08:51 Vitamin B Complex/ Vit C/Folic Acid (Nephrovite) 1 tab DAILY ORAL 08/17/18 09:00 09/16/18 08:59 08/20/18 08:51 Last 24 Hour Vital Signs Date Time Temp Pulse Resp B/P (MAP) Pulse Ox O2 Delivery O2 Flow Rate FiO2 08/20/18 13:42 153/71 08/20/18 13:40 153/71 08/20/18 13:27 65 08/20/18 12:00 97.6 58 18 153/71 (98) 98 08/20/18 10:02 60 20 99 Room Air 21 08/20/18 09:00 Room Air 08/20/18 08:50 58 159/81 08/20/18 08:48 58 159/81 08/20/18 08:00 97.3 58 18 159/81 (107) 99 08/20/18 08:00 57 08/20/18 05:47 172/72 08/20/18 05:46 172/72 08/20/18 04:00 97.2 58 20 172/72 (105) 97 08/20/18 04:00 57 08/20/18 01:11 60 08/20/18 00:00 97.3 64 18 171/77 (108) 97 08/19/18 22:19 62 162/75 08/19/18 22:18 162/75 08/19/18 22:13 162/75 08/19/18 21:00 Room Air 08/19/18 20:00 97.4 62 18 162/75 (104) 95 08/19/18 16:00 97.3 59 20 138/82 (100) 94 08/19/18 14:00 127/96 08/19/18 12:00 97.3 69 20 154/76 (102) 95 08/19/18 12:00 62 08/19/18 08:50 53 124/45 08/19/18 08:49 53 124/45 08/19/18 08:30 Room Air 08/19/18 08:00 97.9 53 20 124/45 (71) 94 08/19/18 08:00 54 08/19/18 07:46 74 20 96 Room Air 21 08/19/18 07:42 97 Room Air 21 08/19/18 07:41 66 18 98 Room Air 21 08/19/18 05:37 152/71 08/19/18 05:37 152/71 08/19/18 04:00 98.0 58 18 152/71 (98) 96 08/19/18 04:00 58 08/19/18 00:00 98.1 63 18 146/51 (82) 97 08/19/18 00:00 63 08/18/18 22:11 160/77 08/18/18 22:11 160/77 08/18/18 22:10 64 160/77 (104) 08/18/18 20:57 71 155/60 08/18/18 20:39 94 Room Air 21 08/18/18 20:38 68 18 94 Room Air 21 08/18/18 20:00 58 08/18/18 20:00 98.2 71 20 155/60 (91) 96 08/18/18 20:00 Room Air 08/18/18 16:00 53 08/18/18 16:00 97.7 57 18 136/70 (92) 99 Intake and Output 08/19/18 08/20/18 19:00 07:00 Intake Total 175 ml Balance 175 ml Intake Oral 120 ml IV Total 55 ml # Voids 2 Labs Test 08/20/18 05:50 White Blood Count 8.4 K/UL (4.8-10.8) Red Blood Count 2.76 M/UL (4.20-5.40) Hemoglobin 8.5 G/DL (12.0-16.0) Hematocrit 25.8 % (37.0-47.0) Mean Corpuscular Volume 93 FL (80-99) Mean Corpuscular Hemoglobin 30.7 PG (27.0-31.0) Mean Corpuscular Hemoglobin Concent 32.8 G/DL (32.0-36.0) Red Cell Distribution Width 15.1 % (11.6-14.8) Platelet Count 184 K/UL (150-450) Mean Platelet Volume 7.2 FL (6.5-10.1) Neutrophils (%) (Auto) 75.1 % (45.0-75.0) Lymphocytes (%) (Auto) 11.1 % (20.0-45.0) Monocytes (%) (Auto) 9.7 % (1.0-10.0) Eosinophils (%) (Auto) 3.2 % (0.0-3.0) Basophils (%) (Auto) 0.9 % (0.0-2.0) Reticulocyte Count 1.8 % (0.5-2.0) Sodium Level 133 MMOL/L (136-145) Potassium Level 5.0 MMOL/L (3.5-5.1) Chloride Level 95 MMOL/L (98-107) Carbon Dioxide Level 18 MMOL/L (21-32) Anion Gap 20 mmol/L (5-15) Blood Urea Nitrogen 79 mg/dL (7-18) Creatinine 12.1 MG/DL (0.55-1.30) Estimat Glomerular Filtration Rate 3.2 mL/min (>60) Glucose Level 107 MG/DL (74-106) Calcium Level 8.7 MG/DL (8.5-10.1) Ferritin 427 NG/ML (8-388) Total Bilirubin 0.7 MG/DL (0.2-1.0) Aspartate Amino Transf (AST/SGOT) 17 U/L (15-37) Alanine Aminotransferase (ALT/SGPT) 22 U/L (12-78) Alkaline Phosphatase 90 U/L (46-116) Lactate Dehydrogenase 242 U/L (81-234) Total Protein 6.7 G/DL (6.4-8.2) Albumin 2.5 G/DL (3.4-5.0) Globulin 4.2 g/dL Albumin/Globulin Ratio 0.6 (1.0-2.7) Thyroid Stimulating Hormone (TSH) 4.299 uiU/mL (0.358-3.740) HIV (1&2) Antibody Rapid Negative (NEGATIVE) Height (Feet): 5 Height (Inches): 6.00 Weight (Pounds): 190 Objective PE Vital Signs: Have been reviewed. Sp02 EP Interpretation: reviewed, normal General Appearance: no apparent distress - However appears confused Head: normocephalic, atraumatic Eyes: bilateral eye PERRL ENT: dry mucus membranes Neck: supple Respiratory: no retraction, crackles - bilaterally CV: regular rate, rhythm GI: non tender, soft MSK: other - Significant edema with erythema both lower extremities patient has multiple abrasions in the upper extremity Neurologic: responsive - To physical and verbal stimuli, however patient appears confused Skin: other - As above Lymphatic: no adenopathy Odilon Min MD Aug 20, 2018 15:04
[2018-08-20 16:00] VITALS: BP 159/74
--- NOTE | 2018-08-20 16:49 | NUR ---
NURSE NOTES: INTERFACILITY REPORT GIVEN TO SIMIN PAZ AT [facility]
--- NOTE | 2018-08-20 16:51 | Infectious Diseases Prog Note ---
Assessment/Plan Assessment/Plan ASSESSMENT AND PLAN: 1. possible pna vs edema/chf, aspiration risk, bilateral foot great toe/1st toe ? infected wounds/gangrene/ischemia - zosyn and azithromycin - can change to doxycycline and augmentin x 5 days - wound care per protocol, d/w surgery and no acute surgical intervention for now, does not think toes acutely infected, on abx - d/w Dr. Escalona and Dr. Wise - monitor labs and chest x-ray 2. The patient has encephalopathy. 3. Renal failure. 4. Hemodialysis. 5. End-stage renal disease. 6. Hypothyroidism. Continue with thyroid supplementation. 7. Diabetes type 2. Blood sugar treatment per primary. 8. Hypertension. 9. Hyperlipidemia. 10. Congestive heart failure. 11. Chronic obstructive pulmonary disease. 12. Cardiovascular disease. 13. Hypothyroidism. 14. Obesity. 15. Cerebrovascular accident and weakness. 16. Bipolar disease. 17. She has no known drug allergies. 18. Social history negative. 19. Family history noncontributory. 20. MAR was noted. 21. Case discussed with RN. 22. Continue treatment per primary consultants. 23. time spent 30 plus minutes Subjective Constitutional: Denies: fever HEENT: Denies: congestion Respiratory: Denies: shortness of breath Cardiovascular: Denies: chest pain Gastrointestinal/Abdominal: Denies: nausea, vomiting, diarrhea Genitourinary: Denies: hematuria, frequency Neurologic: Denies: headache Psychiatric: Denies: depression Skin: Denies: rash Hematologic: Denies: bleeding Musculoskeletal: Denies: pain Allergies: Coded Allergies: No Known Allergies (Verified , 08/23/06) Objective Vital Signs Last 24 Hour Vital Signs Date Time Temp Pulse Resp B/P (MAP) Pulse Ox O2 Delivery O2 Flow Rate FiO2 08/20/18 13:42 153/71 08/20/18 13:40 153/71 08/20/18 13:27 65 08/20/18 12:00 97.6 58 18 153/71 (98) 98 08/20/18 10:02 60 20 99 Room Air 21 08/20/18 09:00 Room Air 08/20/18 08:50 58 159/81 08/20/18 08:48 58 159/81 08/20/18 08:00 97.3 58 18 159/81 (107) 99 08/20/18 08:00 57 7/2/19 05:47 172/72 08/20/18 05:46 172/72 08/20/18 04:00 97.2 58 20 172/72 (105) 97 08/20/18 04:00 57 08/20/18 01:11 60 08/20/18 00:00 97.3 64 18 171/77 (108) 97 08/19/18 22:19 62 162/75 08/19/18 22:18 162/75 08/19/18 22:13 162/75 08/19/18 21:00 Room Air 08/19/18 20:00 97.4 62 18 162/75 (104) 95 Height (Feet): 5 Height (Inches): 6.00 Weight (Pounds): 190 General Appearance: no acute distress HEENT: normocephalic, atraumatic, anicteric, mucous membranes moist Respiratory/Chest: crackles/rales, rhonchi - bilaterally Cardiovascular: normal rate, regular rhythm, no gallop/murmur, no JVD Abdomen: normal bowel sounds, soft, non tender, no organomegaly, non distended Genitourinary: other - no waller, no cva pain Extremities: other - bilateral foot great toe/1st toe w Skin: no rash Neurologic/Psychiatric: deputy controller II-XII grossly normal, alert, responsive Lymphatic: no neck adenopathy Musculoskeletal: no effusion Objective 08/20/18- Procedure: XRAY Chest 1v Indication: Dyspnea Comparison: 08/16/2018 A single view chest radiograph was obtained. Findings: Pulmonary vascular congestion is present with cardiomegaly. There is no change. IMPRESSION: CHF TECHNIQUE: Frontal view of the chest. COMPARISON: Chest radiograph on 11/07/2017 FINDINGS: Hardware: None. Lungs/pleura: Hazy interstitial opacities and right greater than left lungs. No pleural effusion or pneumothorax. Heart/mediastinum: Stable enlargement of the cardiomediastinal silhouette. Soft tissues: Unremarkable. Bones: No acute fracture. Upper abdomen: Normal. IMPRESSION: Hazy and interstitial opacities and right greater than left lungs may represent pulmonary edema versus infectious/inflammatory process. 08/16/18 - TECHNIQUE: Frontal view of the chest. COMPARISON: Chest radiograph on 11/07/2017 FINDINGS: Hardware: None. Lungs/pleura: Hazy interstitial opacities and right greater than left lungs. No pleural effusion or pneumothorax. Heart/mediastinum: Stable enlargement of the cardiomediastinal silhouette. Soft tissues: Unremarkable. Bones: No acute fracture. Upper abdomen: Normal. IMPRESSION: Hazy and interstitial opacities and right greater than left lungs may represent pulmonary edema versus infectious/inflammatory process. Microbiology Date/Time Source Procedure Growth Status 08/16/18 18:45 Blood Blood Culture - Preliminary NO GROWTH AFTER 72 HOURS Resulted 08/16/18 19:15 Nasal Nares MRSA Culture - Final Staphylococcus Aureus - Mrsa Complete 08/16/18 19:15 Rectum VRE Culture - Final NO VANCOMYCIN RESISTANT ENTEROCOCCUS ... Complete Laboratory Tests Test 08/20/18 05:50 White Blood Count 8.4 K/UL (4.8-10.8) Red Blood Count 2.76 M/UL (4.20-5.40) L Hemoglobin 8.5 G/DL (12.0-16.0) L Hematocrit 25.8 % (37.0-47.0) L Mean Corpuscular Volume 93 FL (80-99) Mean Corpuscular Hemoglobin 30.7 PG (27.0-31.0) Mean Corpuscular Hemoglobin Concent 32.8 G/DL (32.0-36.0) Red Cell Distribution Width 15.1 % (11.6-14.8) H Platelet Count 184 K/UL (150-450) Mean Platelet Volume 7.2 FL (6.5-10.1) Neutrophils (%) (Auto) 75.1 % (45.0-75.0) H Lymphocytes (%) (Auto) 11.1 % (20.0-45.0) L Monocytes (%) (Auto) 9.7 % (1.0-10.0) Eosinophils (%) (Auto) 3.2 % (0.0-3.0) H Basophils (%) (Auto) 0.9 % (0.0-2.0) Reticulocyte Count 1.8 % (0.5-2.0) Sodium Level 133 MMOL/L (136-145) L Potassium Level 5.0 MMOL/L (3.5-5.1) Chloride Level 95 MMOL/L (98-107) L Carbon Dioxide Level 18 MMOL/L (21-32) L Anion Gap 20 mmol/L (5-15) H Blood Urea Nitrogen 79 mg/dL (7-18) H Creatinine 12.1 MG/DL (0.55-1.30) H Estimat Glomerular Filtration Rate 3.2 mL/min (>60) Glucose Level 107 MG/DL (74-106) H Calcium Level 8.7 MG/DL (8.5-10.1) Ferritin 427 NG/ML (8-388) H Total Bilirubin 0.7 MG/DL (0.2-1.0) Aspartate Amino Transf (AST/SGOT) 17 U/L (15-37) Alanine Aminotransferase (ALT/SGPT) 22 U/L (12-78) Alkaline Phosphatase 90 U/L (46-116) Lactate Dehydrogenase 242 U/L (81-234) H Total Protein 6.7 G/DL (6.4-8.2) Albumin 2.5 G/DL (3.4-5.0) L Globulin 4.2 g/dL Albumin/Globulin Ratio 0.6 (1.0-2.7) L Thyroid Stimulating Hormone (TSH) 4.299 uiU/mL (0.358-3.740) Hepatitis A IgM Antibody Pending Hepatitis B Surface Antigen Pending Hepatitis B Core IgM Antibody Pending Hepatitis C Antibody Pending HIV (1&2) Antibody Rapid Negative (NEGATIVE) Current Medications Medications (Trade) Dose Ordered Sig/Gabriele Route PRN Reason Start Time Stop Time Status Last Admin Dose Admin Acetaminophen (Tylenol) 650 mg QIDPRN PRN ORAL Pain Scale (3-5) 08/16/18 19:45 09/15/18 19:44 Acetaminophen/ Hydrocodone Bitart ([place] 5/325) 1 tab Q4H PRN ORAL For Pain 08/16/18 19:45 08/23/18 19:44 08/20/18 13:41 Albuterol/ Ipratropium (Albuterol/ Ipratropium) 3 ml Q4H PRN HHN Shortness of Breath 08/16/18 19:45 08/21/18 19:44 Amlodipine Besylate (Norvasc) 10 mg DAILY ORAL 08/17/18 09:00 09/16/18 08:59 08/20/18 08:50 Aspirin (ASA) 81 mg DAILY ORAL 08/17/18 09:00 09/16/18 08:59 08/20/18 08:50 Atorvastatin Calcium (Lipitor) 40 mg BEDTIME ORAL 08/16/18 21:00 09/15/18 20:59 08/19/18 22:20 Azithromycin (Zithromax) 500 mg DAILY ORAL 08/17/18 14:31 08/24/18 14:30 08/20/18 08:47 Carvedilol (Coreg) 6.25 mg EVERY 12 HOURS ORAL 08/17/18 21:00 09/15/18 20:59 08/20/18 08:48 Clonidine HCl (Catapres Tab) 0.1 mg Q8HR ORAL 08/17/18 22:00 09/16/18 08:59 08/20/18 13:40 Clopidogrel Bisulfate (Plavix) 75 mg DAILY ORAL 08/17/18 09:00 09/16/18 08:59 08/20/18 08:48 Dextrose (Dextrose 50%) 25 ml Q30M PRN IV Hypoglycemia 08/16/18 20:00 09/15/18 19:59 Dextrose (Dextrose 50%) 50 ml Q30M PRN IV Hypoglycemia 08/16/18 20:00 09/15/18 19:59 Diphenhydramine HCl (Benadryl) 25 mg Q6H PRN ORAL Itching/Pruritis 08/16/18 19:45 09/15/18 19:44 08/20/18 06:24 Docusate Sodium (Colace) 100 mg EVERY 12 HOURS ORAL 08/16/18 21:00 09/15/18 20:59 08/20/18 08:47 Epoetin Mau (Epoetin Mau(ESRD on dialysis)) 4,000 unit SUBQ 08/21/18 21:00 09/20/18 20:59 Gabapentin (Neurontin) 300 mg BID ORAL 08/17/18 09:00 09/16/18 08:59 08/20/18 08:47 Heparin Sodium (Porcine) (Heparin 5000 units/ml) 5,000 units EVERY 12 HOURS SUBQ 08/20/18 09:00 09/19/18 08:59 08/20/18 08:53 Hydralazine HCl (Apresoline) 75 mg EVERY 8 HOURS ORAL 08/17/18 22:00 09/15/18 21:59 08/20/18 13:42 Insulin Aspart (NovoLOG) BEFORE MEALS AND HS SUBQ 08/16/18 21:00 09/15/18 20:59 08/20/18 12:18 Levetiracetam (Keppra) 1,000 mg Q12HR ORAL 08/17/18 09:00 09/16/18 08:59 08/20/18 08:50 Levothyroxine Sodium (Synthroid) 50 mcg ACBREAKFAST ORAL 08/18/18 06:30 09/17/18 06:29 08/20/18 05:45 Lorazepam (Ativan 2mg/ml 1ml) 1 mg Q6H PRN IV agitation 08/17/18 20:30 08/24/18 20:29 08/20/18 08:51 Mirtazapine (Remeron) 15 mg BEDTIME ORAL 08/17/18 21:00 09/16/18 20:59 08/19/18 22:27 Olanzapine (ZyPREXA) 2.5 mg TID ORAL 08/18/18 09:00 09/17/18 08:59 08/20/18 12:19 Ondansetron HCl (Zofran) 4 mg Q6H PRN IVP Nausea & Vomiting 08/16/18 19:45 09/15/18 19:44 Piperacillin Sod/ Tazobactam Sod 2.25 gm/Dextrose 55 ml @ 110 mls/hr Q8HR IVPB 08/18/18 14:00 08/23/18 13:59 08/20/18 13:43 Polyethylene Glycol (Miralax) 17 gm DAILYPRN PRN ORAL Constipation 08/17/18 11:45 09/16/18 11:44 Sitagliptin Phosphate (Januvia) 25 mg DAILY ORAL 08/17/18 09:00 09/16/18 08:59 08/20/18 08:51 Vitamin B Complex/ Vit C/Folic Acid (Nephrovite) 1 tab DAILY ORAL 08/17/18 09:00 09/16/18 08:59 08/20/18 08:51 Nehal Nolasco MD Aug 20, 2018 16:50
--- NOTE | 2018-08-20 18:15 | Progress Note ---
DATE: 08/20/2018 SUBJECTIVE: The patient is more redirectable. Poor insight and judgment. The patient is easily agitated. The patient has poor insight, very labile. The patient is asleep, arousable. MENTAL STATUS EXAMINATION: The patient is alert and oriented times to self and place. Mood is irritable. Affect is constricted, congruent with mood. Thought process is concrete. Thought content, no suicidal or homicidal ideation. Cognition is impaired. Insight and judgment is poor. ASSESSMENT: Schizoaffective disorder. PLAN: 1. The patient will be continued on Ativan p.r.n. Continue the mirtazapine. 2. Provide the patient with reality orientation and supportive therapy. Blanka Beckett M.D. DR: TY JOB#: [id number] CC:
--- NOTE | 2018-08-20 19:39 | NUR ---
NURSE NOTES: PATIENT DISCHARGED TO [facility] VIA AMBULANCE. PATIENT HAS NO BELONGINGS. ALL DISCHARGE ORDERS FOLLOWED AND CARRIED OUT. PATIENT BREATHING EASILY ON ROOM AIR. VITAL SIGNS STABLE. 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
--- NOTE | 2018-08-20 20:22 | Discharge Summary ---
Discharge Summary Hospital Course Date of Admission Aug 16, 2018 at 19:17 Date of Discharge Admitting Diagnosis encephalopathy, renal failure HPI Cris Zuluaga is a 57 year old female who was admitted on Aug 16, 2018 at 19:17 for Encephalopathy, Renal Failure Hospital Course 57 year old female with ESRD on HD, DM2, HTN, HL, chronic diastolic CHF, COPD, PVD, hypothyroidism, obesity, bipolar disorder, hx of CVA, admitted for AMS likely 2/2 PNA #Acute encephalopathy likely 2/2 infectious causes #Poss PNA -ABX per ID - Zosyn and azithromycin -PT PULLED OUT IV LINE< REFUSED REINSERTION -ID consult appreciated -Neurology consult appreciated -NCO2 PRN -f/u cultures #Acute on chronic anemia #Anemia of ESRD #ESRD -Patient may benefit from PRBC transfusion if Hb <7 -Consult Nephrology for HD treatments -monitor CBC and BMP REFUSING BLOOD WORK -REFUSING HD #Chronic diastolic CHF #HTN #Hyperlipidemia -fluid management via HD -continue minoxidil, clonidine, Coreg, Norvasc and Lipitor #Type 2 DM #Obesity -continue Januvia -lispro SS #Multiple wounds on all extremities -wound care -Surgery consult apprecaited #Epilepsy -continue Keppra #Bipolar and anxiety -continue Seroquel -psych consult appreciated #Hypothyroidism -continue levothyroxine VTE PPx SCD Full Code I spent 70 minutes on this patient's case, and 35 minutes was dedicated to counseling and/or care coordination. Discharge Discharge Disposition Patient was discharged to Discharge Instructions Discharge Instructions Follow up with: pcp Call MD/Return to Hospital if: fevers, hypoxic, intractable pain Activity: resume normal activities Lupe Escalona MD Aug 20, 2018 20:22
--- NOTE | 2018-08-21 16:46 | Cardiology Report ---
APPROVED REPORT EKG Measurement Heart [id number] CA [id number] Sinus bradycardia Possible Left atrial enlargement Cannot rule out Anterior infarct, age undetermined Abnormal ECG
[2018-08-21] MEDS ORDERED: Epoetin Alfa-EPBX(ESRD on dialysis)4000 units/ml vial SUBQ SCH (21:00)
== END 2018-08-20 19:45 | DRG 193 ==
LOC: EDBD 18:22 → EMR 19:15 → 2E 19:17 → EDBEDREQ 21:02
DX: J18.9 Pneumonia, unspecified organism (principal); G93.41 Metabolic encephalopathy; N18.6 End stage renal disease; I13.2 Hypertensive heart and chronic kidney disease with heart failure and with stage 5 chronic kidney disease, or end stage renal disease; I50.32 Chronic diastolic (congestive) heart failure; L03.113 Cellulitis of right upper limb; F33.9 Major depressive disorder, recurrent, unspecified; Z99.2 Dependence on renal dialysis; Z91.15 Patient's noncompliance with renal dialysis; E66.9 Obesity, unspecified; Z68.31 Body mass index [BMI] 31.0-31.9, adult; E03.9 Hypothyroidism, unspecified; F25.0 Schizoaffective disorder, bipolar type; E11.40 Type 2 diabetes mellitus with diabetic neuropathy, unspecified; I27.20 Pulmonary hypertension, unspecified; E78.5 Hyperlipidemia, unspecified; D64.9 Anemia, unspecified; I73.9 Peripheral vascular disease, unspecified; D63.1 Anemia in chronic kidney disease; G40.909 Epilepsy, unspecified, not intractable, without status epilepticus; F31.9 Bipolar disorder, unspecified; F41.9 Anxiety disorder, unspecified; M51.27 Other intervertebral disc displacement, lumbosacral region; Z91.19 Patient's noncompliance with other medical treatment and regimen; R00.1 Bradycardia, unspecified; M94.0 Chondrocostal junction syndrome [Tietze]; K21.9 Gastro-esophageal reflux disease without esophagitis; Z85.038 Personal history of other malignant neoplasm of large intestine; D69.6 Thrombocytopenia, unspecified
CPT/HCPCS: 36415; 71045; 80053; 80299; 82140; 82550; 82553; 82728; 82962; 83605; 83615; 83690; 83880; 84443; 84484; 85025; 85044; 86703; 86705; 86709; 86803; 86850; 86900; 86901; 86920; 87040; 87081; 87340; 93005; 94664; 99291; J1815

== ENCOUNTER 2018-08-23 13:05 | Inpatient (IN) | payer MEDICARE, MEDICAID ==
[~2018-08-23] VITALS: Ht 167.6 cm; Wt 89.8 kg
[~2018-08-23 13:05] MED LIST changes: +AUGMENTIN 875-1 EAC1 ORAL; +CARVEDILOL3.125 MG ORAL; +LANTUS SOL100 UNIT/1 SUBQ; +PROCRIT10000 UNIT SUBQ
--- NOTE | 2018-08-23 13:22 | NUR ---
ED Nurse Note: PT BROUGHT IN TO ER TODAY FROM [facility]. AOX4. PER EMS, PT BROUGHT IN FOR WOUND CHECK. EMS ALSO STATES PT REFUSED DIALYSIS TODAY. HOWEVER, PT STATES SHE WAS DIALYZED TODAY. ON ASSESSMENT, PT'S BP 201/67. DR FARR NOTIFIED. PT PRESENTS WITH MULTIPLE ABRASIONS AND BLISTERS TO BILATERAL UPPER AND LOWER EXTREMITIES. NO ACTIVE BLEEDING AT THIS TIME. SWELLING NOTED TO BILATERAL LOWER EXTREMITIES WELL.
[2018-08-23 13:37] VITALS: BP 201/67
--- NOTE | 2018-08-23 13:55 | NUR ---
ED Nurse Note: PT BEING RESISTIVE TO CARE AND SCREAMING. PT CONSTANTLY TRYING TO GET OUT OF BED DESPITE KNOWING SHE IS NONAMBULATORY. DR FARR NOTIFIED.
[2018-08-23] MEDS ORDERED: Haloperidol 5mg/ml Inj IM ONE (14:00)
[2018-08-23] MEDS ORDERED: Vancomycin 1.5 GM in NS 275 ML IVPB ONE (14:15)
--- NOTE | 2018-08-23 14:15 | Emergency Room Report ---
History of Present Illness General Chief Complaint: General Complaint Source: Medical Record, EMS Present Illness HPI This patient is brought in from a shelter facility. She has multiple chronic medical problems to include a significant psychiatric history of severe schizoaffective disorder. She also has end-stage renal disease and is dialysis dependent, type 2 diabetes, hypertension, CHF, COPD, history of CVA and thrombocytopenia, hepatitis C. She is brought in from the shelter facility for concern of multiple wounds on her arms and legs and concern for infection. Allergies: Coded Allergies: No Known Allergies (Verified , 08/23/06) Patient History Past Medical History: see triage record Social History: Denies: smoking, alcohol use, drug use Reviewed Nursing Documentation: PMH: Agreed; PSxH: Agreed Nursing Documentation-PMH Past Medical History: No History, Except For Hx Cardiac Problems: Yes Hx Hypertension: Yes Hx COPD: Yes Hx Diabetes: Yes Hx Cancer: Yes Hx Gastrointestinal Problems: Yes Hx Dialysis: Yes - MWF Hx Neurological Problems: Yes Hx Seizures: Yes Review of Systems All Other Systems: negative except mentioned in HPI Physical Exam Vital Signs Date Time Temp Pulse Resp B/P (MAP) Pulse Ox O2 Delivery O2 Flow Rate FiO2 08/23/18 13:06 98.2 81 18 220/95 (136) 94 Room Air Sp02 EP Interpretation: reviewed, normal General Appearance: no apparent distress, alert, GCS 15, non-toxic Head: normocephalic, atraumatic Eyes: bilateral eye normal inspection, bilateral eye PERRL ENT: hearing grossly normal, normal pharynx, no angioedema, normal voice Neck: normal inspection, full range of motion, supple/symm/no masses Respiratory: chest non-tender, lungs clear, normal breath sounds, no respiratory distress, no retraction, no accessory muscle use, speaking full sentences Cardiovascular #1: regular rate, rhythm, no edema Gastrointestinal: normal bowel sounds, non tender, soft, no guarding, no rebound, distended Rectal: deferred Musculoskeletal: back normal, normal range of motion, non-tender Neurologic: alert, responsive, motor strength/tone normal, sensory intact, speech normal, grossly normal Psychiatric: mood/affect normal, no suicidal/homicidal ideation Skin: other - Scattered hemorrhagic bullous lesions some ruptured. Medical Decision Making Diagnostic Impression: Primary Impression: Lower extremity cellulitis ER Course This patient has multiple lesions all over her skin that could be a bullous skin disease versus picking versus an underlying impetigo type staph infection. The patient is given broad-spectrum antibiotics, IV fluids and admitted for further evaluation and treatment as an inpatient. Laboratory Tests Test 08/23/18 15:30 White Blood Count 7.9 K/UL (4.8-10.8) Red Blood Count 2.67 M/UL (4.20-5.40) L Hemoglobin 8.1 G/DL (12.0-16.0) L Hematocrit 24.6 % (37.0-47.0) L Mean Corpuscular Volume 92 FL (80-99) Mean Corpuscular Hemoglobin 30.2 PG (27.0-31.0) Mean Corpuscular Hemoglobin Concent 32.8 G/DL (32.0-36.0) Red Cell Distribution Width 13.9 % (11.6-14.8) Platelet Count 204 K/UL (150-450) Mean Platelet Volume 6.9 FL (6.5-10.1) Neutrophils (%) (Auto) 78.4 % (45.0-75.0) H Lymphocytes (%) (Auto) 9.2 % (20.0-45.0) L Monocytes (%) (Auto) 10.4 % (1.0-10.0) H Eosinophils (%) (Auto) 0.0 % (0.0-3.0) Basophils (%) (Auto) 2.0 % (0.0-2.0) Sodium Level 135 MMOL/L (136-145) L Potassium Level 4.8 MMOL/L (3.5-5.1) Chloride Level 95 MMOL/L (98-107) L Carbon Dioxide Level 22 MMOL/L (21-32) Anion Gap 18 mmol/L (5-15) H Blood Urea Nitrogen 73 mg/dL (7-18) H Creatinine 10.4 MG/DL (0.55-1.30) H Estimate Glomerular Filtration Rate 3.9 mL/min (>60) Glucose Level 84 MG/DL (74-106) Lactic Acid Level 0.50 mmol/L (0.4-2.0) Calcium Level 9.0 MG/DL (8.5-10.1) Total Bilirubin 0.6 MG/DL (0.2-1.0) Aspartate Amino Transferase (AST) 21 U/L (15-37) Alanine Aminotransferase (ALT) 17 U/L (12-78) Alkaline Phosphatase 93 U/L (46-116) Ammonia 14 umol/L (11-32) Pro-B-Type Natriuretic Peptide > 23953 pg/mL (0-125) H Total Protein 6.9 G/DL (6.4-8.2) Albumin 2.8 G/DL (3.4-5.0) L Globulin 4.1 g/dL Albumin/Globulin Ratio 0.7 (1.0-2.7) L Chest X-Ray Diagnostic Results Chest X-Ray Diagnostic Results : Chest X-Ray Ordered: Yes # of Views/Limited/Complete: 1 View Indication: Other EP Interpretation: Yes Interpretation: other - pulmonary prominence, cardiomegaly Impression: Other - See above. Electronically Signed by: Priscila Bailey DO Last Vital Signs Date Time Temp Pulse Resp B/P (MAP) Pulse Ox O2 Delivery O2 Flow Rate FiO2 08/23/18 13:37 84 16 Room Air 08/23/18 13:37 98.4 201/67 98 Disposition: ADMITTED INPATIENT Condition: Serious Priscila Bailey DO Aug 23, 2018 14:15
[2018-08-23] MEDS ORDERED: LORazepam Inj 2mg/ml 1ml IV ONE (14:30)
--- NOTE | 2018-08-23 14:47 | Diagnostic Imaging Report ---
Indication: Dyspnea Comparison: August 20, 2018 A single view chest radiograph was obtained. Findings: Pulmonary vascular congestion demonstrated with prominent vascularity especially in the hilar regions and cardiomegaly. Similar findings seen on the previous occasion. IMPRESSION: No change. CHF
--- NOTE | 2018-08-23 16:00 | NUR ---
ED Nurse Note: PT REMINDED THAT URINE SPECIMEN IS NEEDED. PT STATES SHE IS UNABLE TO URINATE AT THIS TIME AND REFUSES STRAIGHT CATHETER. DR KATIE REGAN.
[2018-08-23 16:04] LABS: ANION GAP 18 mmol/L (5-15); BLOOD UREA NITROGEN 73 mg/dL (7-18); CARBON DIOXIDE 22 MMOL/L (21-32); CHLORIDE 95 MMOL/L (98-107); CREATININE 10.4 MG/DL (0.55-1.30); POTASSIUM 4.8 MMOL/L (3.5-5.1); SODIUM 135 MMOL/L (136-145)
[2018-08-23 16:09] LABS: HEMATOCRIT 24.6 % (37.0-47.0); HEMOGLOBIN 8.1 G/DL (12.0-16.0); LYMPHOCYTES % (AUTO) 9.2 % (20.0-45.0); MEAN CORPUSCULAR VOLUME 92 FL (80-99); MONOCYTES % (AUTO) 10.4 % (1.0-10.0); NEUTROPHILS % (AUTO) 78.4 % (45.0-75.0); PLATELET COUNT 204 K/UL (150-450); RED BLOOD COUNT 2.67 M/UL (4.20-5.40); RED CELL DISTRIBUTION WIDTH 13.9 % (11.6-14.8); WHITE BLOOD COUNT 7.9 K/UL (4.8-10.8)
[2018-08-23 16:16] LABS: ALANINE AMINOTRANSFERASE 17 U/L (12-78); ALBUMIN 2.8 G/DL (3.4-5.0); ALBUMIN/GLOBULIN RATIO 0.7 (1.0-2.7); ALKALINE PHOSPHATASE 93 U/L (46-116); ASPARTATE AMINO TRANSFERASE 21 U/L (15-37); BILIRUBIN,TOTAL 0.6 MG/DL (0.2-1.0)
--- NOTE | 2018-08-23 16:23 | NUR ---
ED Nurse Note: PT REFUSED SWABS.
[2018-08-23 16:30] VITALS: BP 136/82
--- NOTE | 2018-08-23 16:31 | NUR ---
ED Nurse Note: [facility] CALLED FOR PT REPORT. REPORT GIVEN TO CHEPE BRYAN. PT TAKEN UP TO [facility] WITH ALL BELONGINGS ACCOMPANIED BY EMT. VSS.
--- NOTE | 2018-08-23 16:40 | NUR ---
NURSE NOTES: Received pt from ER with stable condition. pt is under medical supervision of Dr. Rudolph for (B)LE cellulitis. pt is a/ox1-2 with periods of confusion. Breathing regular and unlabored. denies pain at this time. full body assessment done and noted with multiple dry scabs on (B) upper extremities and cellulitis on (B)foot. picture taken. pt also have (R) upper arm AV shunt. Iv intact and patent. no belongings. all admit order input by Dr. Escalona. will continue to monitor
--- NOTE | 2018-08-23 16:55 | History and Physical ---
History of Present Illness General Date patient seen: Aug 23, 2018 Reason for Hospitalization: General Complaint Present Illness HPI 57 year old female with ESRD on HD, DM2, HTN, HL, chronic diastolic CHF, COPD, PVD, hypothyroidism, obesity, bipolar disorder, hx of CVA, medical noncompliance who was sent in from SNF for complaints of diffuse excoriation concerning for cellulitis. Pt recently discharged from [facility] [place], treated for possible pneumonia. She denies any weakness, dizziness, chest pain, palpitation Allergies: Coded Allergies: No Known Allergies (Verified , 08/23/06) Medication History Scheduled Amlodipine Besylate* (Amlodipine Besylate*), 10 MG ORAL DAILY, (Reported) Amoxicillin/Potassium Clav 875-125* (Augmentin 875-125 Tablet*), 1 TAB ORAL TWICE A DAY Atorvastatin Calcium* (Atorvastatin Calcium*), 40 MG ORAL BEDTIME, (Reported) Carvedilol* (Carvedilol*), 3.125 MG ORAL EVERY 12 HOURS, (Reported) Clopidogrel Bisulfate* (Plavix*), 75 MG ORAL DAILY, (Reported) Docusate Sodium* (Colace*), 100 MG ORAL TWICE A DAY, (Reported) Epoetin Mau (Procrit), 10,000 UNIT SUBQ 3XW, (Reported) Fluticasone/Salmeterol (Advair 500-50 Diskus), 1 PUFF INH EVERY 12 HOURS, ( Reported) Gabapentin (Neurontin), 300 MG ORAL BID, (Reported) Insulin Glargine (Lantus), 100 SUBQ BEDTIME, (Reported) Levetiracetam (Levetiracetam), 1,000 MG ORAL TWICE A DAY, (Reported) Levothyroxine Sodium (Synthroid), 50 MCG ORAL DAILY, (Reported) Minoxidil (Minoxidil), 2.5 MG ORAL BID, (Reported) Polyethylene Glycol 3350* (Miralax*), 17 GM ORAL DAILY, (Reported) Quetiapine Fumarate (Seroquel), 400 MG ORAL BEDTIME, (Reported) Sevelamer Hcl (Renagel), 3,200 MG ORAL THREE TIMES A DAY, (Reported) Sitagliptin* (Januvia*), 25 MG ORAL DAILY, (Reported) Vitamin B Cmplx/Vit C/Folic AC (Nephro-Denise Tablet), 1 TAB ORAL DAILY, (Reported ) Scheduled PRN Acetaminophen* (Acetaminophen 325MG Tablet*), 650 MG ORAL QID PRN for Pain Scale (3-5), (Reported) Acetaminophen* (Acetaminophen 325MG Tablet*), 650 MG ORAL Q6H PRN for For Pain, (Reported) Acetaminophen* (Acetaminophen 325MG Tablet*), 650 MG ORAL Q6H PRN for TEMPERATURE, (Reported) Bisacodyl (Dulcolax), 10 MG RC DAILY PRN for Constipation, (Reported) Clonidine Hcl* (Catapres*), 0.1 MG ORAL EVERY 8 HOURS PRN for For High Blood Pressure, (Reported) Hydralazine HCl (Hydralazine HCl), 50 MG ORAL FOUR TIMES A DAY PRN for For High Blood Pressure, (Reported) Hydrocodone Bit/Acetaminophen 5-325* ([place] 5-325*), 1 TAB ORAL Q4H PRN for For Pain, (Reported) Ipratropium [place] 0.5MG/2.5ML (Ipratropium [place] 0.5MG/2.5ML), 0.5 MG HHN FOUR TIMES A DAY PRN for Shortness of Breath, (Reported) Lactulose (Lactulose), 10 GM PO DAILY PRN for Constipation, (Reported) Discontinued Medications Aspirin* (Aspirin*), 81 MG ORAL DAILY, (Reported) Discontinued Reason: MD discontinued med Carvedilol* (Carvedilol*), 12.5 MG ORAL EVERY 12 HOURS, (Reported) Discontinued Reason: Prescription changed Clonidine Hcl (Clonidine Hcl), 0.2 MG PO BID, (Reported) Discontinued Reason: Prescription changed Patient History History Provided By: Patient, Medical Record Healthcare decision maker Resuscitation status Advanced Directive on File Review of Systems ROS Narrative Constitutional: Denies: chills, fever Eye: Denies: eye pain ENT: denies throat pain Respiratory: Complaining of: cough, Cardiovascular: Denies: chest pain Gastrointestinal: Denies: abdominal pain, constipation Musculoskeletal: Denies: back pain, gout Skin: Denies: rash Neurological: Denies: headache, numbness, paresthesia, syncope, dizziness Physical Exam Last 24 Hour Vital Signs Date Time Temp Pulse Resp B/P (MAP) Pulse Ox O2 Delivery O2 Flow Rate FiO2 08/23/18 16:30 98.3 82 18 136/82 100 Room Air 08/23/18 16:30 98.3 82 18 136/82 100 Room Air 08/23/18 13:37 84 16 Room Air 08/23/18 13:37 98.4 84 16 201/67 98 Room Air 08/23/18 13:06 98.2 81 18 220/95 (136) 94 Room Air Laboratory Tests Test 08/23/18 15:30 White Blood Count 7.9 K/UL (4.8-10.8) Red Blood Count 2.67 M/UL (4.20-5.40) L Hemoglobin 8.1 G/DL (12.0-16.0) L Hematocrit 24.6 % (37.0-47.0) L Mean Corpuscular Volume 92 FL (80-99) Mean Corpuscular Hemoglobin 30.2 PG (27.0-31.0) Mean Corpuscular Hemoglobin Concent 32.8 G/DL (32.0-36.0) Red Cell Distribution Width 13.9 % (11.6-14.8) Platelet Count 204 K/UL (150-450) Mean Platelet Volume 6.9 FL (6.5-10.1) Neutrophils (%) (Auto) 78.4 % (45.0-75.0) H Lymphocytes (%) (Auto) 9.2 % (20.0-45.0) L Monocytes (%) (Auto) 10.4 % (1.0-10.0) H Eosinophils (%) (Auto) 0.0 % (0.0-3.0) Basophils (%) (Auto) 2.0 % (0.0-2.0) Sodium Level 135 MMOL/L (136-145) L Potassium Level 4.8 MMOL/L (3.5-5.1) Chloride Level 95 MMOL/L (98-107) L Carbon Dioxide Level 22 MMOL/L (21-32) Anion Gap 18 mmol/L (5-15) H Blood Urea Nitrogen 73 mg/dL (7-18) H Creatinine 10.4 MG/DL (0.55-1.30) H Estimat Glomerular Filtration Rate 3.9 mL/min (>60) Glucose Level 84 MG/DL (74-106) Lactic Acid Level 0.50 mmol/L (0.4-2.0) Calcium Level 9.0 MG/DL (8.5-10.1) Total Bilirubin 0.6 MG/DL (0.2-1.0) Aspartate Amino Transf (AST/SGOT) 21 U/L (15-37) Alanine Aminotransferase (ALT/SGPT) 17 U/L (12-78) Alkaline Phosphatase 93 U/L (46-116) Ammonia 14 umol/L (11-32) Pro-B-Type Natriuretic Peptide > 55389 pg/mL (0-125) H Total Protein 6.9 G/DL (6.4-8.2) Albumin 2.8 G/DL (3.4-5.0) L Globulin 4.1 g/dL Albumin/Globulin Ratio 0.7 (1.0-2.7) L Height (Feet): 5 Height (Inches): 6.00 Weight (Pounds): 200 Objective Narrative General Appearance: WD/WN, no apparent distress, lethargic, confused Lines, tubes and drains: peripheral HEENT: normocephalic, atraumatic Neck: non-tender Respiratory/Chest: chest wall non-tender, lungs clear, normal breath sounds, no respiratory distress Cardiovascular/Chest: normal peripheral pulses, normal rate, regular rhythm Abdomen: normal bowel sounds Extremities: normal range of motion Skin Exam: other - multiple small wounds on all extremeties, bullous on b/l UE , with mild erythema Neurologic: sweatband drummer II-XII grossly normal Assessment/Plan Assessment/Plan: #Diffuse wounds on all extremities with bullous formation -surgery consulted -will cover with vanc and zosyn for now -ID consulted -Poss need skin bx - will defer to Dr. Wise #Acute on chronic anemia #Anemia of ESRD #ESRD -Patient may benefit from PRBC transfusion if Hb <7 -Consult Nephrology for HD treatments -monitor CBC and BMP #Chronic diastolic CHF #HTN #Hyperlipidemia -fluid management via HD -continue minoxidil, clonidine, Coreg, Norvasc and Lipitor #Type 2 DM #Obesity -continue Januvia -lispro SS #Epilepsy -continue Keppra #Bipolar and anxiety -continue Seroquel -psych consult appreciated #Hypothyroidism -continue levothyroxine VTE PPx SCD Full Code I spent 70 minutes on this patient's case, and 35 minutes was dedicated to counseling and/or care coordination. Lupe Escalona MD Aug 23, 2018 16:55
[2018-08-23] MEDS ORDERED: HydrALAZINE 50mg tab ORAL PRN (17:00)
[2018-08-23] MEDS ORDERED: Ipratropium 0.02% Inh Soln 2.5ml UD HHN PRN (17:00)
[2018-08-23] MEDS: LORazepam Inj 2mg/ml 1ml IV PRN (17:36)
[2018-08-23] MEDS ORDERED: Enoxaparin 30mg Inj SUBQ SCH (18:00)
[2018-08-23] MEDS ORDERED: Lomotil 2.5mg tab ORAL SCH (18:00)
--- NOTE | 2018-08-23 18:26 | Consultation ---
History of Present Illness General Date patient seen: Aug 23, 2018 Chief Complaint: General Complaint Present Illness HPI This is a 57 year old female well known to me from recent hospitalizations. She has been hospitalized a few times in the past month for multiple reasons but now presents with worsening skin lesions concerning for possible cellulitis vs infectious process from senior care. Surgery called to evaluate skin lesions, wounds, and possible skin biopsy if needed. Patient with multiple medical and pysch comorbidities. pleasant but poor historian Allergies: Coded Allergies: No Known Allergies (Verified , 08/23/06) Medication History Scheduled Amlodipine Besylate* (Amlodipine Besylate*), 10 MG ORAL DAILY, (Reported) Amoxicillin/Potassium Clav 875-125* (Augmentin 875-125 Tablet*), 1 TAB ORAL TWICE A DAY Atorvastatin Calcium* (Atorvastatin Calcium*), 40 MG ORAL BEDTIME, (Reported) Carvedilol* (Carvedilol*), 3.125 MG ORAL EVERY 12 HOURS, (Reported) Clopidogrel Bisulfate* (Plavix*), 75 MG ORAL DAILY, (Reported) Docusate Sodium* (Colace*), 100 MG ORAL TWICE A DAY, (Reported) Epoetin Mau (Procrit), 10,000 UNIT SUBQ 3XW, (Reported) Fluticasone/Salmeterol (Advair 500-50 Diskus), 1 PUFF INH EVERY 12 HOURS, ( Reported) Gabapentin (Neurontin), 300 MG ORAL BID, (Reported) Insulin Glargine (Lantus), 100 SUBQ BEDTIME, (Reported) Levetiracetam (Levetiracetam), 1,000 MG ORAL TWICE A DAY, (Reported) Levothyroxine Sodium (Synthroid), 50 MCG ORAL DAILY, (Reported) Minoxidil (Minoxidil), 2.5 MG ORAL BID, (Reported) Polyethylene Glycol 3350* (Miralax*), 17 GM ORAL DAILY, (Reported) Quetiapine Fumarate (Seroquel), 400 MG ORAL BEDTIME, (Reported) Sevelamer Hcl (Renagel), 3,200 MG ORAL THREE TIMES A DAY, (Reported) Sitagliptin* (Januvia*), 25 MG ORAL DAILY, (Reported) Vitamin B Cmplx/Vit C/Folic AC (Nephro-Denise Tablet), 1 TAB ORAL DAILY, (Reported ) Scheduled PRN Acetaminophen* (Acetaminophen 325MG Tablet*), 650 MG ORAL QID PRN for Pain Scale (3-5), (Reported) Acetaminophen* (Acetaminophen 325MG Tablet*), 650 MG ORAL Q6H PRN for For Pain, (Reported) Acetaminophen* (Acetaminophen 325MG Tablet*), 650 MG ORAL Q6H PRN for TEMPERATURE, (Reported) Bisacodyl (Dulcolax), 10 MG RC DAILY PRN for Constipation, (Reported) Clonidine Hcl* (Catapres*), 0.1 MG ORAL EVERY 8 HOURS PRN for For High Blood Pressure, (Reported) Hydralazine HCl (Hydralazine HCl), 50 MG ORAL FOUR TIMES A DAY PRN for For High Blood Pressure, (Reported) Hydrocodone Bit/Acetaminophen 5-325* (Mcroberts 5-325*), 1 TAB ORAL Q4H PRN for For Pain, (Reported) Ipratropium Franklin 0.5MG/2.5ML (Ipratropium Franklin 0.5MG/2.5ML), 0.5 MG HHN FOUR TIMES A DAY PRN for Shortness of Breath, (Reported) Lactulose (Lactulose), 10 GM PO DAILY PRN for Constipation, (Reported) Discontinued Medications Aspirin* (Aspirin*), 81 MG ORAL DAILY, (Reported) Discontinued Reason: MD discontinued med Carvedilol* (Carvedilol*), 12.5 MG ORAL EVERY 12 HOURS, (Reported) Discontinued Reason: Prescription changed Clonidine Hcl (Clonidine Hcl), 0.2 MG PO BID, (Reported) Discontinued Reason: Prescription changed Patient History History Provided By: Medical Record, PMD Healthcare decision maker Resuscitation status Advanced Directive on File Past Medical/Surgical History Past Medical/Surgical History: (1) Schizoaffective disorder, bipolar type (2) MDD (major depressive disorder), recurrent episode, moderate (3) Symptomatic anemia (4) Acute metabolic encephalopathy (5) Lower extremity cellulitis (6) CHF (congestive heart failure) (7) Bradycardia (8) Diabetes mellitus, type II (9) Hypothyroidism (10) Costochondritis (11) GERD (gastroesophageal reflux disease) (12) HTN (hypertension) (13) Anemia in chronic renal disease (14) Cellulitis of arm, right (15) Clotted renal dialysis arteriovenous graft (16) ESRD (end stage renal disease) on dialysis (17) Seizure disorder (18) Non-compliance with renal dialysis (19) Pulmonary edema (20) Pneumonia (21) History of colon cancer Review of Systems All Other Systems: negative except mentioned in HPI Physical Exam General Appearance: no apparent distress Lines, tubes and drains: peripheral HEENT: mucous membranes moist Neck: normal inspection Respiratory/Chest: normal breath sounds, no respiratory distress, no accessory muscle use Abdomen: soft, no organomegaly, no mass Extremities: normal inspection, other Skin Exam: other Neurologic: alert, responsive Last 24 Hour Vital Signs Date Time Temp Pulse Resp B/P (MAP) Pulse Ox O2 Delivery O2 Flow Rate FiO2 08/23/18 16:30 98.3 82 18 136/82 100 Room Air 08/23/18 16:30 98.3 82 18 136/82 100 Room Air 08/23/18 13:37 84 16 Room Air 08/23/18 13:37 98.4 84 16 201/67 98 Room Air 08/23/18 13:06 98.2 81 18 220/95 (136) 94 Room Air Laboratory Tests Test 08/23/18 15:30 White Blood Count 7.9 K/UL (4.8-10.8) Red Blood Count 2.67 M/UL (4.20-5.40) L Hemoglobin 8.1 G/DL (12.0-16.0) L Hematocrit 24.6 % (37.0-47.0) L Mean Corpuscular Volume 92 FL (80-99) Mean Corpuscular Hemoglobin 30.2 PG (27.0-31.0) Mean Corpuscular Hemoglobin Concent 32.8 G/DL (32.0-36.0) Red Cell Distribution Width 13.9 % (11.6-14.8) Platelet Count 204 K/UL (150-450) Mean Platelet Volume 6.9 FL (6.5-10.1) Neutrophils (%) (Auto) 78.4 % (45.0-75.0) H Lymphocytes (%) (Auto) 9.2 % (20.0-45.0) L Monocytes (%) (Auto) 10.4 % (1.0-10.0) H Eosinophils (%) (Auto) 0.0 % (0.0-3.0) Basophils (%) (Auto) 2.0 % (0.0-2.0) Sodium Level 135 MMOL/L (136-145) L Potassium Level 4.8 MMOL/L (3.5-5.1) Chloride Level 95 MMOL/L (98-107) L Carbon Dioxide Level 22 MMOL/L (21-32) Anion Gap 18 mmol/L (5-15) H Blood Urea Nitrogen 73 mg/dL (7-18) H Creatinine 10.4 MG/DL (0.55-1.30) H Estimat Glomerular Filtration Rate 3.9 mL/min (>60) Glucose Level 84 MG/DL (74-106) Lactic Acid Level 0.50 mmol/L (0.4-2.0) Calcium Level 9.0 MG/DL (8.5-10.1) Total Bilirubin 0.6 MG/DL (0.2-1.0) Aspartate Amino Transf (AST/SGOT) 21 U/L (15-37) Alanine Aminotransferase (ALT/SGPT) 17 U/L (12-78) Alkaline Phosphatase 93 U/L (46-116) Ammonia 14 umol/L (11-32) Pro-B-Type Natriuretic Peptide > 12371 pg/mL (0-125) H Total Protein 6.9 G/DL (6.4-8.2) Albumin 2.8 G/DL (3.4-5.0) L Globulin 4.1 g/dL Albumin/Globulin Ratio 0.7 (1.0-2.7) L Height (Feet): 5 Height (Inches): 6.00 Weight (Pounds): 200 Medications Current Medications Medications (Trade) Dose Ordered Sig/Gabriele Route PRN Reason Start Time Stop Time Status Last Admin Dose Admin Acetaminophen (Tylenol) 650 mg Q4H PRN ORAL Mild Pain (Pain Scale 1-3) 08/23/18 17:00 09/22/18 16:59 Acetaminophen/ Hydrocodone Bitart (Mcroberts 5/325) 1 tab Q4H PRN ORAL PAIN 4-10 08/23/18 17:00 08/30/18 16:59 Amlodipine Besylate (Norvasc) 10 mg DAILY ORAL 08/24/18 09:00 09/23/18 08:59 Atorvastatin Calcium (Lipitor) 40 mg BEDTIME ORAL 08/23/18 21:00 09/22/18 20:59 Bisacodyl (Dulcolax) 10 mg HSPRN PRN RECTAL Constipation 08/23/18 17:00 09/22/18 16:59 Carvedilol (Coreg) 3.125 mg EVERY 12 HOURS ORAL 08/23/18 21:00 09/22/18 20:59 Clopidogrel Bisulfate (Plavix) 75 mg DAILY ORAL 08/24/18 09:00 09/23/18 08:59 Dextrose (Dextrose 50%) 25 ml Q30M PRN IV Hypoglycemia 08/23/18 17:00 09/22/18 16:59 Dextrose (Dextrose 50%) 50 ml Q30M PRN IV Hypoglycemia 08/23/18 17:00 09/22/18 16:59 Diphenhydramine HCl (Benadryl) 25 mg Q6H PRN ORAL Itching/Pruritis 08/23/18 17:00 09/22/18 16:59 08/23/18 17:36 Docusate Sodium (Colace) 100 mg EVERY 12 HOURS ORAL 08/23/18 21:00 09/22/18 20:59 Gabapentin (Neurontin) 300 mg BID ORAL 08/23/18 18:00 09/22/18 17:59 08/23/18 17:36 Hydralazine HCl (Apresoline) 50 mg Q6H PRN ORAL SBP > 160mmHg 08/23/18 17:00 09/22/18 16:59 Ipratropium Franklin (Atrovent) 500 mcg Q6H PRN HHN Shortness of Breath 08/23/18 17:00 08/28/18 16:59 Levetiracetam (Keppra) 1,000 mg Q12HR ORAL 08/23/18 18:00 09/22/18 17:59 08/23/18 17:36 Levothyroxine Sodium (Synthroid) 50 mcg DAILY@0630 ORAL 08/24/18 06:30 09/23/18 06:29 Lorazepam (Ativan 2mg/ml 1ml) 0.5 mg Q4H PRN IV For Anxiety 08/23/18 17:00 08/30/18 16:59 08/23/18 17:36 Magnesium Hydroxide (Mom) 30 ml HSPRN PRN ORAL Constipation 08/23/18 21:00 09/22/18 20:59 Ondansetron HCl (Zofran) 4 mg Q6H PRN IVP Nausea & Vomiting 08/23/18 17:00 09/22/18 16:59 Piperacillin Sod/ Tazobactam Sod 2.25 gm/Dextrose 55 ml @ 110 mls/hr Q8HR IVPB 08/23/18 22:00 08/28/18 21:59 Polyethylene Glycol (Miralax) 17 gm HSPRN PRN ORAL Constipation 08/23/18 21:00 09/22/18 20:59 Quetiapine Fumarate (SEROquel) 400 mg QHS ORAL 08/23/18 21:00 09/22/18 20:59 Sevelamer Carbonate (Renvela) 800 mg DAILY ORAL 08/24/18 09:00 09/23/18 08:59 Vancomycin HCl (Vanco rx to dose) 1 ea DAILY PRN MISC Per rx protocol 08/23/18 18:00 09/22/18 17:59 Vancomycin HCl 500 mg/Dextrose 110 ml @ 110 mls/hr ONCE ONCE IVPB 08/23/18 19:30 08/23/18 20:29 Vitamin B Complex/ Vit C/Folic Acid (Nephrovite) 1 tab DAILY ORAL 08/24/18 09:00 09/23/18 08:59 Assessment/Plan Problem List: (1) Schizoaffective disorder, bipolar type ICD Codes: F25.0 - Schizoaffective disorder, bipolar type SNOMED: 23010820 (2) Lower extremity cellulitis Assessment & Plan: 57-year-old female with multiple medical comorbidities presenting from a senior care On admission patient identified to have multiple wounds Etiology of wounds potentially from trauma Patient a poor historian Patient noted to have multiple scabs on her upper and lower extremities Patient does have some distal ischemia in the toes No acute surgical intervention patient denies itching but continues to scratch wounds and open scabs distribution of wounds do not seem to be rash or skin disorder. mainly trauma related patient has blood blister noted on her right hand that she picks at causing drainage. will hold on skin biopsy for now will need to reinforce to patient not to pick at wounds, remove scabs, or deep scratching. appreciate psych input apply bacitracin ointment to scabs and scars on upper and lower extremity okay to wrap bilateral upper extremities with kerlix wrap to prevent patient from picking scabs and see if able to heal old traumatic wounds Offload pressure Turn every 2 hours We will monitor wounds while in hospital to ensure healing Nutritional optimization Thank you IV ABX ICD Codes: L03.119 - Cellulitis of unspecified part of limb SNOMED: 483650334 (3) MDD (major depressive disorder), recurrent episode, moderate ICD Codes: F33.1 - Major depressive disorder, recurrent, moderate SNOMED: 62794635, 169025182 (4) Symptomatic anemia ICD Codes: D64.9 - Anemia, unspecified SNOMED: 805159280 (5) Acute metabolic encephalopathy ICD Codes: G93.41 - Metabolic encephalopathy SNOMED: 33410578, 540851099 (6) CHF (congestive heart failure) ICD Codes: I50.9 - Heart failure, unspecified SNOMED: 57981702 (7) Bradycardia ICD Codes: R00.1 - Bradycardia, unspecified SNOMED: 43339917 (8) Diabetes mellitus, type II ICD Codes: E11.9 - Type 2 diabetes mellitus without complications SNOMED: 22351539 (9) Hypothyroidism ICD Codes: E03.9 - Hypothyroidism, unspecified SNOMED: 75772379 (10) Costochondritis ICD Codes: M94.0 - Chondrocostal junction syndrome [Tietze] SNOMED: 95296044 (11) GERD (gastroesophageal reflux disease) ICD Codes: K21.9 - Gastro-esophageal reflux disease without esophagitis SNOMED: 223231367 (12) HTN (hypertension) ICD Codes: I10 - Essential (primary) hypertension SNOMED: 05986016 (13) Anemia in chronic renal disease ICD Codes: N18.9 - Chronic kidney disease, unspecified; D63.1 - Anemia in chronic kidney disease SNOMED: 948349884, 892660263 (14) Cellulitis of arm, right ICD Codes: L03.113 - Cellulitis of right upper limb SNOMED: 008888676 (15) Clotted renal dialysis arteriovenous graft ICD Codes: T82.868A - Thrombosis due to vascular prosthetic devices, implants and grafts, initial encounter SNOMED: 80596596, 067383206 (16) ESRD (end stage renal disease) on dialysis ICD Codes: N18.6 - End stage renal disease; Z99.2 - Dependence on renal dialysis SNOMED: 292266159 (17) Seizure disorder ICD Codes: G40.909 - Epilepsy, unspecified, not intractable, without status epilepticus SNOMED: 508320961 (18) Non-compliance with renal dialysis ICD Codes: Z91.15 - Patient's noncompliance with renal dialysis SNOMED: 332361166458216 (19) Pulmonary edema ICD Codes: J81.1 - Chronic pulmonary edema SNOMED: 74328864 (20) Pneumonia ICD Codes: J18.9 - Pneumonia, unspecified organism SNOMED: 661182454 (21) History of colon cancer ICD Codes: Z85.038 - Personal history of other malignant neoplasm of large intestine SNOMED: 774158163 Vic Wise Aug 23, 2018 18:26
--- NOTE | 2018-08-23 19:19 | Consultation ---
Consult Note Consult Note asked to evaluate at the request of Dr Monsivais for dialysis management patient know to me from her prior admissions she was discharged 08/20 and readmitted today she apparantly refused her OP dialysis today reason for readmissio , cellulitis both feet ER: This [facility]. She has multiple chronic medical problems to include a significant psychiatric history of severe schizoaffective disorder. She also has end-stage renal disease and is dialysis dependent, type 2 diabetes, hypertension, CHF, COPD, history of CVA and thrombocytopenia, hepatitis C. She is [facility] in [facility] for concern of multiple wounds on her arms and legs and concern for infection. No Known Allergies (Verified , 08/23/06) interviewed- confused examined data reviewed Surgery: Patient noted to have multiple scabs on her lower extremities as well including her right and left feet and her toes. Patient does have some distal ischemia in the toes Patient does have some bruising on the left lower extremity potentially from trauma as well . Assessment/Plan - Cellulitis both LE - Metabolic Encephalopathy - End-stage renal disease, on hemodialysis. fistula right arm - Anemia of chronic kidney disease. - HTN / Pulmonary HTN - Diabetes type 2. -HypoThyroidism Others - Morbid obesity. - H/O Colon Cancer - H/O Hep C - H/O Depression and Bipolar disease - Psych disease uncoaporative --Bilateral leg numbness --diabetic neuropathy --L5-S1 disc protrusion Psych eval HD in am ordered skin care / Antibiotics per orders Eamon Solis MD Aug 23, 2018 19:19
--- NOTE | 2018-08-23 19:24 | NUR ---
HAND-OFF: Report given to CHEPE Saini.
--- NOTE | 2018-08-23 19:28 | NUR ---
NURSE NOTES: Received patient awake on chair, eating dinner. Siderails padded on bed. Bilateral upper extremities filled with scabs and bruises, MD aware. IV access asymptomatic, on saline lock. Fall and safety precautions taken. Soft wrist restraints will be applied once patient is transferred to bed after patient is done eating.
[2018-08-23] MEDS ORDERED: Vancomycin 500mg/D5W 110ml IVPB ONE ×2 (19:30)
[2018-08-23 20:00] VITALS: BP 179/86
[2018-08-23] MEDS ORDERED: Milk of Magnesia 30ml Ud ORAL PRN (21:00)
[2018-08-23] MEDS ORDERED: Docusate 100mg cap ORAL SCH (21:00)
[2018-08-23] MEDS ORDERED: Miralax 17gm pkt ORAL PRN (21:00)
[2018-08-23] MEDS: QUEtiapine 200mg tab ORAL SCH (21:37)
[2018-08-23] MEDS: Atorvastatin 20mg tab ORAL SCH (21:38)
[2018-08-23] MEDS: Piperacillin/Tazobactam 2.25 GM in D5W 55 ML IVPB SCH (21:41)
[2018-08-24] VITALS: BP 130/77
--- NOTE | 2018-08-24 01:15 | Consultation ---
DATE OF CONSULTATION: 08/24/2018 CONSULTING PHYSICIAN: Blanka Beckett M.D. HISTORY OF PRESENT ILLNESS: The patient is a 57-year-old female with a history of depression, schizoaffective disorder, diabetes mellitus, hypertension, ESRD, COPD, and hypothyroidism, who has been admitted from the [facility]. I am well familiar with this patient. The patient is confused and not at baseline. The patient has waxing and waning consciousness, has episodes of agitation, and uncooperative with the treatment on dialysis. The patient has memory impairment and is unable to provide any history. The patient was placed in restraints for safety and she has been refusing care. PAST PSYCHIATRIC HISTORY: Schizoaffective disorder, bipolar type and anxiety disorder. Several psychiatric hospitalizations. MEDICATIONS: The patient is on multiple psychotropic medications including Seroquel, Depakote, gabapentin, Haldol, and Ativan. PAST MEDICAL HISTORY: As above. ALLERGIES: No known drug allergies. SUBSTANCE ABUSE HISTORY: No known history of illicit drug use or alcohol. MENTAL STATUS EXAMINATION: The patient is obese. Confused. Mood is agitated. Affect is flat. Thought process, there is a paucity of thought content. Thought content, no suicidal or homicidal ideations. ASSESSMENT: AXIS I: Schizoaffective disorder. Acute encephalopathy. AXIS II: Deferred. AXIS III: As above. AXIS IV: Low. AXIS V: 20. PLAN: 1. The patient will be continued on Seroquel 400 mg nightly. 2. Continue the Ativan. 3. Add Haldol p.r.n. 4. We will continue to follow and readjust the medications. Blanka Beckett M.D. DR: BARBARA JOB#: [id number] CC:
[2018-08-24] MEDS: Haloperidol 5mg/ml Inj IM PRN (03:08)
[2018-08-24 04:00] VITALS: BP 137/96
[2018-08-24] MEDS: LORazepam Inj 2mg/ml 1ml IV PRN ×3 (05:05→19:14)
[2018-08-24] MEDS: Piperacillin/Tazobactam 2.25 GM in D5W 55 ML IVPB SCH ×3 (05:28→20:39)
--- NOTE | 2018-08-24 07:21 | NUR ---
HAND-OFF: Report given to CHEPE Sullivan.
--- NOTE | 2018-08-24 07:34 | NUR ---
NURSE NOTES: pt in bed with no sob nor in any form of distress noted. asleep in bed with no sob nor in any form of distress noted. no behavioral issue noted at this time. Bed in lowest position. Call light within reach at all time. will continue to monitor
--- NOTE | 2018-08-24 07:56 | Consultation ---
History of Present Illness General Date patient seen: Aug 24, 2018 Chief Complaint: General Complaint Referring physician: Dr. Rudolph Reason for Consultation: Ongoing Anemia Evaluation Present Illness HPI This is a 57 y old female presents from nursing facility admitted with cellulitis.Patient herself is awake, however appears confused patient also has multiple dressings in the upper and lower extremities Appears to have multiple abrasions, blisters and bruises. History of present illness remains limited at the patient herself cannot provide appropriate history, poor historian. Recently discharged from [facility] treated for PNA Heme consulted for ongoing anemia evaluation Allergies: Coded Allergies: No Known Allergies (Verified , 08/23/06) Medication History Scheduled Amlodipine Besylate* (Amlodipine Besylate*), 10 MG ORAL DAILY, (Reported) Amoxicillin/Potassium Clav 875-125* (Augmentin 875-125 Tablet*), 1 TAB ORAL TWICE A DAY Atorvastatin Calcium* (Atorvastatin Calcium*), 40 MG ORAL BEDTIME, (Reported) Carvedilol* (Carvedilol*), 3.125 MG ORAL EVERY 12 HOURS, (Reported) Clopidogrel Bisulfate* (Plavix*), 75 MG ORAL DAILY, (Reported) Docusate Sodium* (Colace*), 100 MG ORAL TWICE A DAY, (Reported) Epoetin Mau (Procrit), 10,000 UNIT SUBQ 3XW, (Reported) Fluticasone/Salmeterol (Advair 500-50 Diskus), 1 PUFF INH EVERY 12 HOURS, ( Reported) Gabapentin (Neurontin), 300 MG ORAL BID, (Reported) Insulin Glargine (Lantus), 100 SUBQ BEDTIME, (Reported) Levetiracetam (Levetiracetam), 1,000 MG ORAL TWICE A DAY, (Reported) Levothyroxine Sodium (Synthroid), 50 MCG ORAL DAILY, (Reported) Minoxidil (Minoxidil), 2.5 MG ORAL BID, (Reported) Polyethylene Glycol 3350* (Miralax*), 17 GM ORAL DAILY, (Reported) Quetiapine Fumarate (Seroquel), 400 MG ORAL BEDTIME, (Reported) Sevelamer Hcl (Renagel), 3,200 MG ORAL THREE TIMES A DAY, (Reported) Sitagliptin* (Januvia*), 25 MG ORAL DAILY, (Reported) Vitamin B Cmplx/Vit C/Folic AC (Nephro-Denise Tablet), 1 TAB ORAL DAILY, (Reported ) Scheduled PRN Acetaminophen* (Acetaminophen 325MG Tablet*), 650 MG ORAL QID PRN for Pain Scale (3-5), (Reported) Acetaminophen* (Acetaminophen 325MG Tablet*), 650 MG ORAL Q6H PRN for For Pain, (Reported) Acetaminophen* (Acetaminophen 325MG Tablet*), 650 MG ORAL Q6H PRN for TEMPERATURE, (Reported) Bisacodyl (Dulcolax), 10 MG RC DAILY PRN for Constipation, (Reported) Clonidine Hcl* (Catapres*), 0.1 MG ORAL EVERY 8 HOURS PRN for For High Blood Pressure, (Reported) Hydralazine HCl (Hydralazine HCl), 50 MG ORAL FOUR TIMES A DAY PRN for For High Blood Pressure, (Reported) Hydrocodone Bit/Acetaminophen 5-325* ([place] 5-325*), 1 TAB ORAL Q4H PRN for For Pain, (Reported) Ipratropium [place] 0.5MG/2.5ML (Ipratropium [place] 0.5MG/2.5ML), 0.5 MG HHN FOUR TIMES A DAY PRN for Shortness of Breath, (Reported) Lactulose (Lactulose), 10 GM PO DAILY PRN for Constipation, (Reported) Discontinued Medications Aspirin* (Aspirin*), 81 MG ORAL DAILY, (Reported) Discontinued Reason: MD discontinued med Carvedilol* (Carvedilol*), 12.5 MG ORAL EVERY 12 HOURS, (Reported) Discontinued Reason: Prescription changed Clonidine Hcl (Clonidine Hcl), 0.2 MG PO BID, (Reported) Discontinued Reason: Prescription changed Patient History Healthcare decision maker Resuscitation status Full Code Advanced Directive on File Review of Systems ROS Narrative difficult to assess Physical Exam Last 24 Hour Vital Signs Date Time Temp Pulse Resp B/P (MAP) Pulse Ox O2 Delivery O2 Flow Rate FiO2 08/24/18 04:00 99.0 76 16 137/96 (110) 96 08/24/18 00:00 98.3 72 18 130/77 (94) 96 08/23/18 23:12 Room Air 08/23/18 21:37 82 136/82 08/23/18 20:00 97.9 77 18 179/86 (117) 93 08/23/18 18:50 Room Air 08/23/18 16:30 98.3 82 18 136/82 100 Room Air 08/23/18 16:30 98.3 82 18 136/82 100 Room Air 08/23/18 13:37 84 16 Room Air 08/23/18 13:37 98.4 84 16 201/67 98 Room Air 08/23/18 13:06 98.2 81 18 220/95 (136) 94 Room Air Laboratory Tests Test 08/23/18 15:30 White Blood Count 7.9 K/UL (4.8-10.8) Red Blood Count 2.67 M/UL (4.20-5.40) L Hemoglobin 8.1 G/DL (12.0-16.0) L Hematocrit 24.6 % (37.0-47.0) L Mean Corpuscular Volume 92 FL (80-99) Mean Corpuscular Hemoglobin 30.2 PG (27.0-31.0) Mean Corpuscular Hemoglobin Concent 32.8 G/DL (32.0-36.0) Red Cell Distribution Width 13.9 % (11.6-14.8) Platelet Count 204 K/UL (150-450) Mean Platelet Volume 6.9 FL (6.5-10.1) Neutrophils (%) (Auto) 78.4 % (45.0-75.0) H Lymphocytes (%) (Auto) 9.2 % (20.0-45.0) L Monocytes (%) (Auto) 10.4 % (1.0-10.0) H Eosinophils (%) (Auto) 0.0 % (0.0-3.0) Basophils (%) (Auto) 2.0 % (0.0-2.0) Sodium Level 135 MMOL/L (136-145) L Potassium Level 4.8 MMOL/L (3.5-5.1) Chloride Level 95 MMOL/L (98-107) L Carbon Dioxide Level 22 MMOL/L (21-32) Anion Gap 18 mmol/L (5-15) H Blood Urea Nitrogen 73 mg/dL (7-18) H Creatinine 10.4 MG/DL (0.55-1.30) H Estimat Glomerular Filtration Rate 3.9 mL/min (>60) Glucose Level 84 MG/DL (74-106) Lactic Acid Level 0.50 mmol/L (0.4-2.0) Calcium Level 9.0 MG/DL (8.5-10.1) Total Bilirubin 0.6 MG/DL (0.2-1.0) Aspartate Amino Transf (AST/SGOT) 21 U/L (15-37) Alanine Aminotransferase (ALT/SGPT) 17 U/L (12-78) Alkaline Phosphatase 93 U/L (46-116) Ammonia 14 umol/L (11-32) Pro-B-Type Natriuretic Peptide > 85436 pg/mL (0-125) H Total Protein 6.9 G/DL (6.4-8.2) Albumin 2.8 G/DL (3.4-5.0) L Globulin 4.1 g/dL Albumin/Globulin Ratio 0.7 (1.0-2.7) L Height (Feet): 5 Height (Inches): 6.00 Weight (Pounds): 200 Medications Current Medications Medications (Trade) Dose Ordered Sig/Gabriele Route PRN Reason Start Time Stop Time Status Last Admin Dose Admin Acetaminophen (Tylenol) 650 mg Q4H PRN ORAL Mild Pain (Pain Scale 1-3) 08/23/18 17:00 09/22/18 16:59 Acetaminophen/ Hydrocodone Bitart ([place] 5/325) 1 tab Q4H PRN ORAL PAIN 4-10 08/23/18 17:00 08/30/18 16:59 Amlodipine Besylate (Norvasc) 10 mg DAILY ORAL 08/24/18 09:00 09/23/18 08:59 Atorvastatin Calcium (Lipitor) 40 mg BEDTIME ORAL 08/23/18 21:00 09/22/18 20:59 08/23/18 21:38 Bisacodyl (Dulcolax) 10 mg HSPRN PRN RECTAL Constipation 08/23/18 17:00 09/22/18 16:59 Carvedilol (Coreg) 3.125 mg EVERY 12 HOURS ORAL 08/23/18 21:00 09/22/18 20:59 08/23/18 21:37 Clopidogrel Bisulfate (Plavix) 75 mg DAILY ORAL 08/24/18 09:00 09/23/18 08:59 Dextrose (Dextrose 50%) 25 ml Q30M PRN IV Hypoglycemia 08/23/18 17:00 09/22/18 16:59 Dextrose (Dextrose 50%) 50 ml Q30M PRN IV Hypoglycemia 08/23/18 17:00 09/22/18 16:59 Diphenhydramine HCl (Benadryl) 25 mg Q6H PRN ORAL Itching/Pruritis 08/23/18 17:00 09/22/18 16:59 08/23/18 17:36 Docusate Sodium (Colace) 100 mg TID ORAL 08/24/18 09:00 09/22/18 20:59 Gabapentin (Neurontin) 300 mg BID ORAL 08/23/18 18:00 09/22/18 17:59 08/23/18 17:36 Haloperidol Lactate (Haldol) 5 mg Q6H PRN IM Agitation 08/24/18 00:15 09/23/18 00:14 08/24/18 03:08 Hydralazine HCl (Apresoline) 25 mg Q4H PRN ORAL SBP > 160mmHg 08/23/18 19:30 09/22/18 16:59 Ipratropium [place] (Atrovent) 500 mcg Q6H PRN HHN Shortness of Breath 08/23/18 17:00 08/28/18 16:59 Levetiracetam (Keppra) 1,000 mg Q12HR ORAL 08/23/18 18:00 09/22/18 17:59 08/23/18 17:36 Levothyroxine Sodium (Synthroid) 50 mcg DAILY@0630 ORAL 08/24/18 06:30 09/23/18 06:29 08/24/18 05:59 Lorazepam (Ativan 2mg/ml 1ml) 0.5 mg Q4H PRN IV For Anxiety 08/23/18 17:00 08/30/18 16:59 08/24/18 05:05 Ondansetron HCl (Zofran) 4 mg Q6H PRN IVP Nausea & Vomiting 08/23/18 17:00 09/22/18 16:59 Piperacillin Sod/ Tazobactam Sod 2.25 gm/Dextrose 55 ml @ 110 mls/hr Q8HR IVPB 08/23/18 22:00 08/28/18 21:59 08/24/18 05:28 Polyethylene Glycol (Miralax) 17 gm HSPRN PRN ORAL Constipation 08/23/18 21:00 09/22/18 20:59 Quetiapine Fumarate (SEROquel) 400 mg QHS ORAL 08/23/18 21:00 09/22/18 20:59 08/23/18 21:37 Sevelamer Carbonate (Renvela) 800 mg TID ORAL 08/24/18 09:00 09/23/18 08:59 Vancomycin HCl (Vanco rx to dose) 1 ea DAILY PRN MISC Per rx protocol 08/23/18 18:00 09/22/18 17:59 Vitamin B Complex/ Vit C/Folic Acid (Nephrovite) 1 tab DAILY ORAL 08/24/18 09:00 09/23/18 08:59 Objective Narrative PE General Appearance: no apparent distress, confused Head: normocephalic, atraumatic Eyes: bilateral eye PERRL ENT: dry mucus membranes Neck: supple Respiratory: no retraction,diminished bilaterally CV: regular rate, rhythm GI: non tender, soft MSK: other - Significant edema with erythema both lower extremities patient has multiple abrasions in the upper extremity Neurologic: responsive - To physical and verbal stimuli, however patient appears confused Skin: other - As above Lymphatic: no adenopathy Assessment/Plan Diagnosis [place] I: llergies: No Known Allergies (Verified , 08/23/06) Past Medical History: see triage record Pertinent Family History: none Reviewed Nursing Documentation: PMH: Agreed; PSxH: Agreed Past Medical History: No History, Except For Hx Cardiac Problems: Yes - palpitations Hx Hypertension: Yes Hx COPD: Yes Hx Diabetes: Yes Hx Cancer: Yes Hx Gastrointestinal Problems: Yes Hx Dialysis: Yes - MWF Hx Neurological Problems: Yes Hx Seizures: Yes Review of Systems: negative except mentioned in HPI Assessment and Recs: # Anemia of chronic disease (or of iron deficiency) due to underlying chronic medical issues, multifactorial --> Anemia workup has been reviewed from previous/recent admission, Ferritin 427 --> No evidence of hemolysis is noted, peripheral smear has been reviewed. --> Hgb goal >7. Transfuse prn. Hgb 8.1 --> Epogen or iron at this time is not particularly indicated ( consider epo based on anemia panel ) --> Medications have been reviewed --> low threshold for gi evaluation in case has occult + # ESRD (end stage renal disease) on dialysis --> HD 3x a week as per renal --> Creat level 10.4 # PNA --> previous admission # HTN / Pulmonary HTN --> controlled # Diabetes type 2. --> monitor BS levels The timing of this note does not necessarily reflect the time of the patient was seen. GREATLY APPRECIATE CONSULTATION. Eugenia Healy NP Aug 24, 2018 07:56
[2018-08-24 08:00] VITALS: BP 131/82
[2018-08-24] MEDS: Docusate 100mg cap ORAL SCH ×3 (08:50→17:24)
[2018-08-24] MEDS: Nephrovite tab (Rena-Vite) ORAL SCH (08:51)
--- NOTE | 2018-08-24 11:11 | General Progress Note ---
Assessment/Plan Assessment/Plan: Assessment/Plan: #Diffuse wounds on all extremities #Acute on chronic anemia #Anemia of ESRD #ESRD -Patient may benefit from PRBC transfusion if Hb <7 -Appreciate nephrology consultation. -monitor CBC and BMP REFUSING BLOOD WORK - ordered. -REFUSING HD as outpatient. #Chronic diastolic CHF #HTN #Hyperlipidemia -fluid management via HD, Planned for today 08/24 -continue minoxidil, clonidine, Coreg, Norvasc and Lipitor #Type 2 DM #Obesity -continue Januvia -lispro SS #Epilepsy -continue Keppra #Bipolar and anxiety -continue Seroquel -psych consult appreciated #Hypothyroidism -continue levothyroxine # Cellulitis of upper extremities - Zosyn and Vancomycin started. - Monitor response to therapy - Surgery consult appreciated. - ? need for biopsy vs supportive care # Disposition - Patient is a resident at [facility] Full Code Subjective ROS Limited/Unobtainable: Yes Allergies: Coded Allergies: No Known Allergies (Verified , 08/23/06) Objective Last 24 Hour Vital Signs Date Time Temp Pulse Resp B/P (MAP) Pulse Ox O2 Delivery O2 Flow Rate FiO2 08/24/18 08:54 Room Air 08/24/18 08:00 98.7 80 17 131/82 (98) 97 08/24/18 04:00 99.0 76 16 137/96 (110) 96 08/24/18 00:00 98.3 72 18 130/77 (94) 96 08/23/18 23:12 Room Air 08/23/18 21:37 82 136/82 08/23/18 20:00 97.9 77 18 179/86 (117) 93 08/23/18 18:50 Room Air 08/23/18 16:30 98.3 82 18 136/82 100 Room Air 08/23/18 16:30 98.3 82 18 136/82 100 Room Air 08/23/18 13:37 84 16 Room Air 08/23/18 13:37 98.4 84 16 201/67 98 Room Air 08/23/18 13:06 98.2 81 18 220/95 (136) 94 Room Air Laboratory Tests 08/23/18 15:30: White Blood Count 7.9, Red Blood Count 2.67L, Hemoglobin 8.1L, Hematocrit 24.6L , Mean Corpuscular Volume 92, Mean Corpuscular Hemoglobin 30.2, Mean Corpuscular Hemoglobin Concent 32.8, Red Cell Distribution Width 13.9, Platelet Count 204, Mean Platelet Volume 6.9, Neutrophils (%) (Auto) 78.4H, Lymphocytes ( %) (Auto) 9.2L, Monocytes (%) (Auto) 10.4H, Eosinophils (%) (Auto) 0.0, Basophils (%) (Auto) 2.0, Sodium Level 135L, Potassium Level 4.8, Chloride Level 95L, Carbon Dioxide Level 22, Anion Gap 18H, Blood Urea Nitrogen 73H, Creatinine 10.4H, Estimat Glomerular Filtration Rate 3.9, Glucose Level 84, Lactic Acid Level 0.50, Calcium Level 9.0, Total Bilirubin 0.6, Aspartate Amino Transf (AST/SGOT) 21, Alanine Aminotransferase (ALT/SGPT) 17, Alkaline Phosphatase 93, Ammonia 14, Pro-B-Type Natriuretic Peptide > 22253Q, Total Protein 6.9, Albumin 2.8L, Globulin 4.1, Albumin/Globulin Ratio 0.7L Height (Feet): 5 Height (Inches): 6.00 Weight (Pounds): 200 General Appearance: WD/WN, lethargic EENT: PERRL/EOMI Cardiovascular: normal peripheral pulses, regular rhythm Respiratory/Chest: lungs clear, normal breath sounds Abdomen: normal bowel sounds, non tender Edema: trace edema 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 bilateral foot escoriations. R hallux necrotic appearance. Myrtle Oviedo MD Aug 24, 2018 11:11
[2018-08-24] MEDS: Lidocaine 1% Plain 30 ml INJ SCH (11:15)
[2018-08-24 12:00] VITALS: BP 135/89
[2018-08-24 15:53] VITALS: BP 135/89
--- NOTE | 2018-08-24 16:15 | NUR ---
CASE MANAGEMENT: REVIEW 57Y/F BIBA FROM [facility] CC: WOUND ON BOTH LOWER EXTREMITIES SI: LOWER EXTREMITY CELLULITIS T 98.3 HR 82 RR 18 BP 201/67 SAT 98% ROOM AIR H/H 8.1/24.6 NEUT 78.4 LYMPH 9.2 NA 135 BUN 73 CR 10.4 IS: NS IVF BOLUS X1 HALDOL IM X1 VANCO IV X1 ATIVAN IV X1 HYDRALAZINE PO X1 PATIENT ADMITTED TO MED/SURG UNIT 08/23/2018 DCP: PATIENT IS FROM [facility]
--- NOTE | 2018-08-24 16:21 | Surgery Progress Note ---
Surgery Progress Note Subjective Additional Comments no acute events. comfortable. stable. Objective Last 24 Hour Vital Signs Date Time Temp Pulse Resp B/P (MAP) Pulse Ox O2 Delivery O2 Flow Rate FiO2 08/24/18 15:53 97.3 80 20 135/89 (104) 97 08/24/18 12:00 98.4 77 18 135/89 (104) 97 08/24/18 08:54 Room Air 08/24/18 08:00 98.7 80 17 131/82 (98) 97 08/24/18 04:00 99.0 76 16 137/96 (110) 96 08/24/18 00:00 98.3 72 18 130/77 (94) 96 08/23/18 23:12 Room Air 08/23/18 21:37 82 136/82 08/23/18 20:00 97.9 77 18 179/86 (117) 93 08/23/18 18:50 Room Air 08/23/18 16:30 98.3 82 18 136/82 100 Room Air 08/23/18 16:30 98.3 82 18 136/82 100 Room Air I&O Intake and Output 08/23/18 08/24/18 18:59 06:59 # Voids 1 2 # Bowel Movements 1 Dressing: dry Wound: other Drains: other Cardiovascular: RSR Respiratory: clear Abdomen: soft, flat, non-tender, present bowel sounds Extremities: no tenderness, no cyanosis, other Plan Problems: (1) Schizoaffective disorder, bipolar type (2) Lower extremity cellulitis Assessment & Plan: 57-year-old female with multiple medical comorbidities presenting from a [facility] On admission patient identified to have multiple wounds Etiology of wounds potentially from trauma Patient a poor historian Patient noted to have multiple scabs on her upper and lower extremities Patient does have some distal ischemia in the toes No acute surgical intervention patient denies itching but continues to scratch wounds and open scabs distribution of wounds do not seem to be rash or skin disorder. mainly trauma related patient has blood blister noted on her right hand that she picks at causing drainage. will hold on skin biopsy for now will need to reinforce to patient not to pick at wounds, remove scabs, or deep scratching. appreciate psych input apply bacitracin ointment to scabs and scars on upper and lower extremity okay to wrap bilateral upper extremities with kerlix wrap to prevent patient from picking scabs and see if able to heal old traumatic wounds Offload pressure Turn every 2 hours We will monitor wounds while in hospital to ensure healing Nutritional optimization Thank you IV ABX (3) MDD (major depressive disorder), recurrent episode, moderate (4) Symptomatic anemia (5) Acute metabolic encephalopathy (6) CHF (congestive heart failure) (7) Bradycardia (8) Diabetes mellitus, type II (9) Hypothyroidism (10) Costochondritis (11) GERD (gastroesophageal reflux disease) (12) HTN (hypertension) (13) Anemia in chronic renal disease (14) Cellulitis of arm, right (15) Clotted renal dialysis arteriovenous graft (16) ESRD (end stage renal disease) on dialysis (17) Seizure disorder (18) Non-compliance with renal dialysis (19) Pulmonary edema (20) Pneumonia (21) History of colon cancer Vic Wise Aug 24, 2018 16:21
[2018-08-24] MEDS ORDERED: Bacitracin Oint UD TOPIC SCH (16:30)
[2018-08-24 17:11] LABS: HEMATOCRIT 23.1 % (37.0-47.0); HEMOGLOBIN 7.6 G/DL (12.0-16.0); MEAN CORPUSCULAR VOLUME 92 FL (80-99); PLATELET COUNT 172 K/UL (150-450); RED BLOOD COUNT 2.51 M/UL (4.20-5.40); RED CELL DISTRIBUTION WIDTH 13.9 % (11.6-14.8); WHITE BLOOD COUNT 5.4 K/UL (4.8-10.8)
[2018-08-24 17:14] LABS: EOSINOPHILS % (AUTO) 2.4 % (0.0-3.0); MONOCYTES % (AUTO) 7.9 % (1.0-10.0); NEUTROPHILS % (AUTO) 74.7 % (45.0-75.0)
--- NOTE | 2018-08-24 17:16 | Infectious Diseases Prog Note ---
Assessment/Plan Assessment/Plan ASSESSMENT AND PLAN: 1. bilateral UE/LE (leg/foot/arm/hand) possible infected wounds and cellulitis, necrosis/? gangrene noted - zosyn and vancomycin - surgery f/u - debridement and biopsy if needed, local wound care for now - wound care per protocol - monitor labs 2. The patient has encephalopathy. 3. Renal failure. 4. Hemodialysis. 5. End-stage renal disease. 6. Hypothyroidism. Continue with thyroid supplementation. 7. Diabetes type 2. Blood sugar treatment per primary. 8. Hypertension. 9. Hyperlipidemia. 10. Congestive heart failure, hx of pna 11. Chronic obstructive pulmonary disease. 12. Cardiovascular disease. 13. Hypothyroidism. 14. Obesity. 15. Cerebrovascular accident and weakness. 16. Bipolar disease. 17. She has no known drug allergies. 18. Social history negative. 19. Family history noncontributory. 20. MAR was noted. 21. Case discussed with RN. 22. Continue treatment per primary consultants. 23. time spent 30 plus minutes Subjective Constitutional: Reports: fatigue, other - responsive ; Denies: fever Respiratory: Denies: shortness of breath Cardiovascular: Denies: chest pain Gastrointestinal/Abdominal: Denies: nausea, vomiting, diarrhea Genitourinary: Reports: other - no waller - hd patient Neurologic: Denies: headache Psychiatric: Reports: other - NA Skin: Reports: rash, other - multiple wounds Hematologic: Denies: bleeding Musculoskeletal: Denies: pain Allergies: Coded Allergies: No Known Allergies (Verified , 08/23/06) Objective Vital Signs Last 24 Hour Vital Signs Date Time Temp Pulse Resp B/P (MAP) Pulse Ox O2 Delivery O2 Flow Rate FiO2 08/24/18 15:53 97.3 80 20 135/89 (104) 97 08/24/18 12:00 98.4 77 18 135/89 (104) 97 08/24/18 08:54 Room Air 08/24/18 08:00 98.7 80 17 131/82 (98) 97 08/24/18 04:00 99.0 76 16 137/96 (110) 96 08/24/18 00:00 98.3 72 18 130/77 (94) 96 08/23/18 23:12 Room Air 08/23/18 21:37 82 136/82 08/23/18 20:00 97.9 77 18 179/86 (117) 93 08/23/18 18:50 Room Air Height (Feet): 5 Height (Inches): 6.00 Weight (Pounds): 200 General Appearance: no acute distress HEENT: normocephalic, atraumatic, anicteric, EOMI, supple, no JVD Respiratory/Chest: crackles/rales, rhonchi - bilaterally Cardiovascular: normal rate, regular rhythm, no gallop/murmur, no JVD Abdomen: normal bowel sounds, soft, non tender, no organomegaly, non distended Genitourinary: other - no waller, getting HD Extremities: other - bilateral LE/UE feet/hands with multiplre wounds, necrosis , rash, redness noted Skin: no rash, ulcers 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 Findings: Pulmonary vascular congestion demonstrated with prominent vascularity especially in the hilar regions and cardiomegaly. Similar findings seen on the previous occasion. IMPRESSION: No change. CHF none Labs Test 08/23/18 15:30 08/24/18 16:40 White Blood Count 7.9 K/UL (4.8-10.8) Red Blood Count 2.67 M/UL (4.20-5.40) Hemoglobin 8.1 G/DL (12.0-16.0) Hematocrit 24.6 % (37.0-47.0) Mean Corpuscular Volume 92 FL (80-99) Mean Corpuscular Hemoglobin 30.2 PG (27.0-31.0) Mean Corpuscular Hemoglobin Concent 32.8 G/DL (32.0-36.0) Red Cell Distribution Width 13.9 % (11.6-14.8) Platelet Count 204 K/UL (150-450) Mean Platelet Volume 6.9 FL (6.5-10.1) Neutrophils (%) (Auto) 78.4 % (45.0-75.0) Lymphocytes (%) (Auto) 9.2 % (20.0-45.0) Monocytes (%) (Auto) 10.4 % (1.0-10.0) Eosinophils (%) (Auto) 0.0 % (0.0-3.0) Basophils (%) (Auto) 2.0 % (0.0-2.0) Sodium Level 135 MMOL/L (136-145) Potassium Level 4.8 MMOL/L (3.5-5.1) Chloride Level 95 MMOL/L (98-107) Carbon Dioxide Level 22 MMOL/L (21-32) Anion Gap 18 mmol/L (5-15) Blood Urea Nitrogen 73 mg/dL (7-18) Creatinine 10.4 MG/DL (0.55-1.30) Estimat Glomerular Filtration Rate 3.9 mL/min (>60) Glucose Level 84 MG/DL (74-106) Lactic Acid Level 0.50 mmol/L (0.4-2.0) Calcium Level 9.0 MG/DL (8.5-10.1) Total Bilirubin 0.6 MG/DL (0.2-1.0) Aspartate Amino Transf (AST/SGOT) 21 U/L (15-37) Alanine Aminotransferase (ALT/SGPT) 17 U/L (12-78) Alkaline Phosphatase 93 U/L (46-116) Ammonia 14 umol/L (11-32) Pro-B-Type Natriuretic Peptide > 81716 pg/mL (0-125) Total Protein 6.9 G/DL (6.4-8.2) Albumin 2.8 G/DL (3.4-5.0) Globulin 4.1 g/dL Albumin/Globulin Ratio 0.7 (1.0-2.7) Current Medications Medications (Trade) Dose Ordered Sig/Gabriele Route PRN Reason Start Time Stop Time Status Last Admin Dose Admin Acetaminophen (Tylenol) 650 mg Q4H PRN ORAL Mild Pain (Pain Scale 1-3) 08/23/18 17:00 09/22/18 16:59 Acetaminophen/ Hydrocodone Bitart ([place] 5/325) 1 tab Q4H PRN ORAL PAIN 4-10 08/23/18 17:00 08/30/18 16:59 Amlodipine Besylate (Norvasc) 10 mg DAILY ORAL 08/24/18 09:00 09/23/18 08:59 Atorvastatin Calcium (Lipitor) 40 mg BEDTIME ORAL 08/23/18 21:00 09/22/18 20:59 08/23/18 21:38 Bacitracin (Bacitracin) 1 applic ONCE TOPIC 08/24/18 16:30 08/24/18 17:30 Bisacodyl (Dulcolax) 10 mg HSPRN PRN RECTAL Constipation 08/23/18 17:00 09/22/18 16:59 Carvedilol (Coreg) 3.125 mg EVERY 12 HOURS ORAL 08/23/18 21:00 09/22/18 20:59 08/23/18 21:37 Chlorhexidine Gluconate (Cassia-Hex 2%) 1 applic DAILY@1999 TOPIC 08/26/18 20:00 09/25/18 19:59 Clopidogrel Bisulfate (Plavix) 75 mg DAILY ORAL 08/24/18 09:00 09/23/18 08:59 Dextrose (Dextrose 50%) 25 ml Q30M PRN IV Hypoglycemia 08/23/18 17:00 09/22/18 16:59 Dextrose (Dextrose 50%) 50 ml Q30M PRN IV Hypoglycemia 08/23/18 17:00 09/22/18 16:59 Diphenhydramine HCl (Benadryl) 25 mg Q6H PRN ORAL Itching/Pruritis 08/23/18 17:00 09/22/18 16:59 08/24/18 13:34 Docusate Sodium (Colace) 100 mg TID ORAL 08/24/18 09:00 09/22/18 20:59 Gabapentin (Neurontin) 300 mg BID ORAL 08/23/18 18:00 09/22/18 17:59 08/23/18 17:36 Haloperidol Lactate (Haldol) 5 mg Q6H PRN IM Agitation 08/24/18 00:15 09/23/18 00:14 08/24/18 03:08 Hydralazine HCl (Apresoline) 25 mg Q4H PRN ORAL SBP > 160mmHg 08/23/18 19:30 09/22/18 16:59 Ipratropium [place] (Atrovent) 500 mcg Q6H PRN HHN Shortness of Breath 08/23/18 17:00 08/28/18 16:59 Levetiracetam (Keppra) 1,000 mg Q12HR ORAL 08/23/18 18:00 09/22/18 17:59 08/23/18 17:36 Levothyroxine Sodium (Synthroid) 50 mcg DAILY@0630 ORAL 08/24/18 06:30 09/23/18 06:29 08/24/18 05:59 Lidocaine HCl (Xylocaine 1% 30ml) 30 ml ONCE INJ 08/24/18 11:15 08/26/18 20:00 Lorazepam (Ativan 2mg/ml 1ml) 0.5 mg Q4H PRN IV For Anxiety 08/23/18 17:00 08/30/18 16:59 08/24/18 13:35 Ondansetron HCl (Zofran) 4 mg Q6H PRN IVP Nausea & Vomiting 08/23/18 17:00 09/22/18 16:59 Piperacillin Sod/ Tazobactam Sod 2.25 gm/Dextrose 55 ml @ 110 mls/hr Q8HR IVPB 08/23/18 22:00 08/28/18 21:59 08/24/18 13:35 Polyethylene Glycol (Miralax) 17 gm HSPRN PRN ORAL Constipation 08/23/18 21:00 09/22/18 20:59 Quetiapine Fumarate (SEROquel) 400 mg QHS ORAL 08/23/18 21:00 09/22/18 20:59 08/23/18 21:37 Sevelamer Carbonate (Renvela) 800 mg TID ORAL 08/24/18 09:00 09/23/18 08:59 08/24/18 13:34 Vancomycin HCl (Vanco rx to dose) 1 ea DAILY PRN MISC Per rx protocol 08/23/18 18:00 09/22/18 17:59 Vitamin B Complex/ Vit C/Folic Acid (Nephrovite) 1 tab DAILY ORAL 08/24/18 09:00 09/23/18 08:59 Nehal Nolasco MD Aug 24, 2018 17:16
[2018-08-24 18:03] LABS: ALANINE AMINOTRANSFERASE 18 U/L (12-78); ALBUMIN 2.6 G/DL (3.4-5.0); ALBUMIN/GLOBULIN RATIO 0.6 (1.0-2.7); ALKALINE PHOSPHATASE 89 U/L (46-116); ANION GAP 16 mmol/L (5-15); ASPARTATE AMINO TRANSFERASE 23 U/L (15-37); BILIRUBIN,TOTAL 0.6 MG/DL (0.2-1.0); BLOOD UREA NITROGEN 57 mg/dL (7-18); CALCIUM 8.8 MG/DL (8.5-10.1); CARBON DIOXIDE 23 MMOL/L (21-32); CHLORIDE 99 MMOL/L (98-107); CHOLESTEROL 123 MG/DL (< 200); FERRITIN 543 NG/ML (8-388); GAMMA GLUTAMYL TRANSPEPTIDASE 30 U/L (5-85); HDL CHOLESTEROL 42 MG/DL (40-60); PHOSPHORUS 7.1 MG/DL (2.5-4.9); POTASSIUM 4.2 MMOL/L (3.5-5.1); SODIUM 138 MMOL/L (136-145); TRIGLYCERIDES 87 MG/DL (30-150)
--- NOTE | 2018-08-24 18:12 | NUR ---
NURSE NOTES: noted with H/H 7.6/23.[address] Oviedo and received NNO at this time. will continue to monitor
[2018-08-24 18:15] LABS: % IRON SATURATION 40 % (15-50); IRON 60 ug/dL (50-175); TOTAL IRON BINDING CAPACITY 150 ug/dL (250-450)
--- NOTE | 2018-08-24 19:04 | NUR ---
HAND-OFF: Report given to CHEPE sarah.
--- NOTE | 2018-08-24 19:24 | NUR ---
NURSE NOTES: Received patient awake sitting up in bed, finishing dinner. IV access asymptomatic, flushes easily, dressing dry and intact. Patient appears agitated, oriented only to name, unaware or in denial about being in the hospital, constantly asking to smoke a cigarette. Dialysis done today, 2L taken out. 3 siderails up, yellow socks on, patient trying to get out of bed, will watch closely.
--- NOTE | 2018-08-24 19:28 | Nephrology Progress Note ---
Assessment/Plan Assessment - Cellulitis both LE - Metabolic Encephalopathy - End-stage renal disease, on hemodialysis. fistula right arm - Anemia of chronic kidney disease. - HTN / Pulmonary HTN - Diabetes type 2. -HypoThyroidism Others - Morbid obesity. - H/O Colon Cancer - H/O Hep C - H/O Depression and Bipolar disease - Psych disease uncoaporative --Bilateral leg numbness --diabetic neuropathy --L5-S1 disc protrusion Plan HD today ordered skin care / Antibiotics per consultants Subjective ROS Limited/Unobtainable: No Constitutional: Reports: malaise, weakness Objective Objective Last 24 Hour Vital Signs Date Time Temp Pulse Resp B/P (MAP) Pulse Ox O2 Delivery O2 Flow Rate FiO2 08/24/18 15:53 97.3 80 20 135/89 (104) 97 08/24/18 12:00 98.4 77 18 135/89 (104) 97 08/24/18 08:54 Room Air 08/24/18 08:00 98.7 80 17 131/82 (98) 97 08/24/18 04:00 99.0 76 16 137/96 (110) 96 08/24/18 00:00 98.3 72 18 130/77 (94) 96 08/23/18 23:12 Room Air 08/23/18 21:37 82 136/82 08/23/18 20:00 97.9 77 18 179/86 (117) 93 Intake and Output 08/23/18 08/24/18 19:00 07:00 # Voids 1 2 # Bowel Movements 1 Laboratory Tests 08/24/18 16:40: White Blood Count 5.4, Red Blood Count 2.51L, Hemoglobin 7.6L, Hematocrit 23.1L , Mean Corpuscular Volume 92, Mean Corpuscular Hemoglobin 30.3, Mean Corpuscular Hemoglobin Concent 32.9, Red Cell Distribution Width 13.9, Platelet Count 172, Mean Platelet Volume 6.6, Neutrophils (%) (Auto) 74.7, Lymphocytes (% ) (Auto) 13.0L, Monocytes (%) (Auto) 7.9, Eosinophils (%) (Auto) 2.4, Basophils (%) (Auto) 2.0, Sodium Level 138, Potassium Level 4.2, Chloride Level 99, Carbon Dioxide Level 23, Anion Gap 16H, Blood Urea Nitrogen 57H, Creatinine 8.0H , Estimat Glomerular Filtration Rate 5.2, Glucose Level 84, Hemoglobin A1c 5.0, Uric Acid 4.4, Calcium Level 8.8, Phosphorus Level 7.1H, Magnesium Level 1.9, Iron Level 60, Total Iron Binding Capacity 150L, Percent Iron Saturation 40, Unsaturated Iron Binding 90L, Ferritin 543H, Total Bilirubin 0.6, Gamma Glutamyl Transpeptidase 30, Aspartate Amino Transf (AST/SGOT) 23, Alanine Aminotransferase (ALT/SGPT) 18, Alkaline Phosphatase 89, C-Reactive Protein, Quantitative 4.9H, Pro-B-Type Natriuretic Peptide > 93539O, Total Protein 6.7, Albumin 2.6L, Globulin 4.1, Albumin/Globulin Ratio 0.6L, Triglycerides Level 87 , Cholesterol Level 123, LDL Cholesterol 65, HDL Cholesterol 42, Cholesterol/ HDL Ratio 2.9L, Vitamin B12 Level 505, Folate 13.9, Thyroid Stimulating Hormone (TSH) 3.490, Hepatitis B Surface Antigen [Pending] Height (Feet): 5 Height (Inches): 6.00 Weight (Pounds): 200 General Appearance: no apparent distress, confused Cardiovascular: regular rhythm Respiratory/Chest: decreased breath sounds Abdomen: distended Eamon Solis MD Aug 24, 2018 19:28
[2018-08-24 20:00] VITALS: BP 158/77
[2018-08-24] MEDS: Atorvastatin 20mg tab ORAL SCH (20:32)
[2018-08-24] MEDS: QUEtiapine 200mg tab ORAL SCH (20:32)
[2018-08-24] MEDS ORDERED: Bacitracin Oint 15gm Tube TOPIC SCH (21:30)
[2018-08-25] VITALS: BP 151/75
[2018-08-25] MEDS: LORazepam Inj 2mg/ml 1ml IV PRN ×2 (02:34→12:37)
[2018-08-25 04:00] VITALS: BP 158/75
[2018-08-25] MEDS: Piperacillin/Tazobactam 2.25 GM in D5W 55 ML IVPB SCH ×3 (05:04→21:01)
--- NOTE | 2018-08-25 05:30 | Progress Note ---
DATE: 08/25/2018 SUBJECTIVE: The patient is in bed. She continues to be noncompliant. The patient has waxing and waning of consciousness, not engaged during the evaluation. The patient was dozing off during the evaluation. The patient is on Seroquel. Not agitated. MENTAL STATUS EXAMINATION: The patient is asleep, arousable, and has waxing and waning of consciousness. She knows her name and she knows she is in the hospital. Mood was irritable. Affect is flat. Thought process, there is a paucity of thought content. Thought content, no suicidal or homicidal ideation. ASSESSMENT: Acute encephalopathy and depression. PLAN: 1. The patient will be continued on Seroquel 400 mg at bedtime. 2. Ativan p.r.n. 3. Haldol p.r.n. 4. We will continue to follow and readjust the medications. Blanka Beckett M.D. DR: BUBBA JOB#: [id number] CC:
--- NOTE | 2018-08-25 06:58 | NUR ---
HAND-OFF: Report given to CHEPE Sullivan
--- NOTE | 2018-08-25 07:32 | NUR ---
NURSE NOTES: pt in bed with no sob nor in any form of distress noted. Breathing regular and unlabored. denies pain at this time. Bed in lowest position. call light within reach at all time. will continue to monitor
[2018-08-25 08:00] VITALS: BP 153/71
[2018-08-25] MEDS: Docusate 100mg cap ORAL SCH ×3 (08:55→17:05)
[2018-08-25] MEDS: Nephrovite tab (Rena-Vite) ORAL SCH (08:56)
[2018-08-25 12:00] VITALS: BP 135/87
--- NOTE | 2018-08-25 12:17 | Nephrology Progress Note ---
Assessment/Plan Problem List: (1) ESRD (end stage renal disease) on dialysis (2) Anemia in chronic renal disease (3) Schizoaffective disorder, bipolar type (4) Diabetes mellitus, type II (5) Hypothyroidism Assessment - Cellulitis both LE - Metabolic Encephalopathy - End-stage renal disease, on hemodialysis. fistula right arm - Anemia of chronic kidney disease. - HTN / Pulmonary HTN - Diabetes type 2. -HypoThyroidism Others - Morbid obesity. - H/O Colon Cancer - H/O Hep C - H/O Depression and Bipolar disease - Psych disease uncoaporative --Bilateral leg numbness --diabetic neuropathy --L5-S1 disc protrusion Plan HD done 08/24 next 08/26 skin care / Antibiotics per consultants Subjective ROS Limited/Unobtainable: No Constitutional: Reports: malaise Objective Objective Last 24 Hour Vital Signs Date Time Temp Pulse Resp B/P (MAP) Pulse Ox O2 Delivery O2 Flow Rate FiO2 08/25/18 09:00 Room Air 08/25/18 08:00 97.7 76 20 153/71 (98) 94 08/25/18 04:00 97.8 77 20 158/75 (102) 97 08/25/18 00:00 97.9 74 18 151/75 (100) 97 08/24/18 22:40 Room Air 08/24/18 20:31 80 135/89 08/24/18 20:00 98.0 80 22 158/77 (104) 97 08/24/18 15:53 97.3 80 20 135/89 (104) 97 Intake and Output 08/24/18 08/25/18 19:00 07:00 Intake Total 55 ml Balance 55 ml Intake IV Total 55 ml # Voids 1 Laboratory Tests 08/24/18 16:40: White Blood Count 5.4, Red Blood Count 2.51L, Hemoglobin 7.6L, Hematocrit 23.1L , Mean Corpuscular Volume 92, Mean Corpuscular Hemoglobin 30.3, Mean Corpuscular Hemoglobin Concent 32.9, Red Cell Distribution Width 13.9, Platelet Count 172, Mean Platelet Volume 6.6, Neutrophils (%) (Auto) 74.7, Lymphocytes (% ) (Auto) 13.0L, Monocytes (%) (Auto) 7.9, Eosinophils (%) (Auto) 2.4, Basophils (%) (Auto) 2.0, Sodium Level 138, Potassium Level 4.2, Chloride Level 99, Carbon Dioxide Level 23, Anion Gap 16H, Blood Urea Nitrogen 57H, Creatinine 8.0H , Estimat Glomerular Filtration Rate 5.2, Glucose Level 84, Hemoglobin A1c 5.0, Uric Acid 4.4, Calcium Level 8.8, Phosphorus Level 7.1H, Magnesium Level 1.9, Iron Level 60, Total Iron Binding Capacity 150L, Percent Iron Saturation 40, Unsaturated Iron Binding 90L, Ferritin 543H, Total Bilirubin 0.6, Gamma Glutamyl Transpeptidase 30, Aspartate Amino Transf (AST/SGOT) 23, Alanine Aminotransferase (ALT/SGPT) 18, Alkaline Phosphatase 89, C-Reactive Protein, Quantitative 4.9H, Pro-B-Type Natriuretic Peptide > 61006E, Total Protein 6.7, Albumin 2.6L, Globulin 4.1, Albumin/Globulin Ratio 0.6L, Triglycerides Level 87 , Cholesterol Level 123, LDL Cholesterol 65, HDL Cholesterol 42, Cholesterol/ HDL Ratio 2.9L, Vitamin B12 Level 505, Folate 13.9, Thyroid Stimulating Hormone (TSH) 3.490, Hepatitis B Surface Antigen [Pending] Height (Feet): 5 Height (Inches): 6.00 Weight (Pounds): 200 General Appearance: no apparent distress Objective no change Eamon Solis MD Aug 25, 2018 12:17
--- NOTE | 2018-08-25 13:00 | NUR ---
NURSE NOTES: Called [facility] and left a msg regarding HD for tomorrow 08/26/18.
--- NOTE | 2018-08-25 14:28 | Surgery Progress Note ---
Surgery Progress Note Subjective Additional Comments no acute events. arm wraped with kerlix and patient more comfortable. Objective Last 24 Hour Vital Signs Date Time Temp Pulse Resp B/P (MAP) Pulse Ox O2 Delivery O2 Flow Rate FiO2 08/25/18 12:00 97.8 82 20 135/87 (103) 95 08/25/18 09:00 Room Air 08/25/18 08:00 97.7 76 20 153/71 (98) 94 08/25/18 04:00 97.8 77 20 158/75 (102) 97 08/25/18 00:00 97.9 74 18 151/75 (100) 97 08/24/18 22:40 Room Air 08/24/18 20:31 80 135/89 08/24/18 20:00 98.0 80 22 158/77 (104) 97 08/24/18 15:53 97.3 80 20 135/89 (104) 97 I&O Intake and Output 08/24/18 08/25/18 18:59 06:59 Intake Total 55 ml Balance 55 ml Intake IV Total 55 ml # Voids 1 Dressing: dry Wound: clean Cardiovascular: RSR Respiratory: clear Abdomen: present bowel sounds, non-distended Extremities: edema, no cyanosis Laboratory Tests Test 08/24/18 16:40 White Blood Count 5.4 K/UL (4.8-10.8) Red Blood Count 2.51 M/UL (4.20-5.40) L Hemoglobin 7.6 G/DL (12.0-16.0) L Hematocrit 23.1 % (37.0-47.0) L Mean Corpuscular Volume 92 FL (80-99) Mean Corpuscular Hemoglobin 30.3 PG (27.0-31.0) Mean Corpuscular Hemoglobin Concent 32.9 G/DL (32.0-36.0) Red Cell Distribution Width 13.9 % (11.6-14.8) Platelet Count 172 K/UL (150-450) Mean Platelet Volume 6.6 FL (6.5-10.1) Neutrophils (%) (Auto) 74.7 % (45.0-75.0) Lymphocytes (%) (Auto) 13.0 % (20.0-45.0) L Monocytes (%) (Auto) 7.9 % (1.0-10.0) Eosinophils (%) (Auto) 2.4 % (0.0-3.0) Basophils (%) (Auto) 2.0 % (0.0-2.0) Sodium Level 138 MMOL/L (136-145) Potassium Level 4.2 MMOL/L (3.5-5.1) Chloride Level 99 MMOL/L (98-107) Carbon Dioxide Level 23 MMOL/L (21-32) Anion Gap 16 mmol/L (5-15) H Blood Urea Nitrogen 57 mg/dL (7-18) H Creatinine 8.0 MG/DL (0.55-1.30) H Estimat Glomerular Filtration Rate 5.2 mL/min (>60) Glucose Level 84 MG/DL (74-106) Hemoglobin A1c 5.0 % (4.3-6.0) Uric Acid 4.4 MG/DL (2.6-7.2) Calcium Level 8.8 MG/DL (8.5-10.1) Phosphorus Level 7.1 MG/DL (2.5-4.9) H Magnesium Level 1.9 MG/DL (1.8-2.4) Iron Level 60 ug/dL (50-175) Total Iron Binding Capacity 150 ug/dL (250-450) L Percent Iron Saturation 40 % (15-50) Unsaturated Iron Binding 90 ug/dL (112-346) L Ferritin 543 NG/ML (8-388) H Total Bilirubin 0.6 MG/DL (0.2-1.0) Gamma Glutamyl Transpeptidase 30 U/L (5-85) Aspartate Amino Transf (AST/SGOT) 23 U/L (15-37) Alanine Aminotransferase (ALT/SGPT) 18 U/L (12-78) Alkaline Phosphatase 89 U/L (46-116) C-Reactive Protein, Quantitative 4.9 mg/dL (0.00-0.90) H Pro-B-Type Natriuretic Peptide > 45818 pg/mL (0-125) H Total Protein 6.7 G/DL (6.4-8.2) Albumin 2.6 G/DL (3.4-5.0) L Globulin 4.1 g/dL Albumin/Globulin Ratio 0.6 (1.0-2.7) L Triglycerides Level 87 MG/DL (30-150) Cholesterol Level 123 MG/DL (< 200) LDL Cholesterol 65 mg/dL (<100) HDL Cholesterol 42 MG/DL (40-60) Cholesterol/HDL Ratio 2.9 (3.3-4.4) L Vitamin B12 Level 505 PG/ML (193-986) Folate 13.9 NG/ML (8.6-58.9) Thyroid Stimulating Hormone (TSH) 3.490 uiU/mL (0.358-3.740) Hepatitis B Surface Antigen Pending Plan Problems: (1) Schizoaffective disorder, bipolar type (2) Lower extremity cellulitis Assessment & Plan: 57-year-old female with multiple medical comorbidities presenting from a long term On admission patient identified to have multiple wounds Etiology of wounds potentially from trauma Patient a poor historian Patient noted to have multiple scabs on her upper and lower extremities Patient does have some distal ischemia in the toes No acute surgical intervention patient denies itching but continues to scratch wounds and open scabs distribution of wounds do not seem to be rash or skin disorder. mainly trauma related patient has blood blister noted on her right hand that she picks at causing drainage. will hold on skin biopsy for now will need to reinforce to patient not to pick at wounds, remove scabs, or deep scratching. appreciate psych input apply bacitracin ointment to scabs and scars on upper and lower extremity okay to wrap bilateral upper extremities with kerlix wrap to prevent patient from picking scabs and see if able to heal old traumatic wounds Offload pressure Turn every 2 hours We will monitor wounds while in hospital to ensure healing Nutritional optimization Thank you IV ABX (3) MDD (major depressive disorder), recurrent episode, moderate (4) Symptomatic anemia (5) Acute metabolic encephalopathy (6) CHF (congestive heart failure) (7) Bradycardia (8) Diabetes mellitus, type II (9) Hypothyroidism (10) Costochondritis (11) GERD (gastroesophageal reflux disease) (12) HTN (hypertension) (13) Anemia in chronic renal disease (14) Cellulitis of arm, right (15) Clotted renal dialysis arteriovenous graft (16) ESRD (end stage renal disease) on dialysis (17) Seizure disorder (18) Non-compliance with renal dialysis (19) Pulmonary edema (20) Pneumonia (21) History of colon cancer Vic Wise Aug 25, 2018 14:28
--- NOTE | 2018-08-25 15:12 | General Progress Note ---
Assessment/Plan Assessment/Plan: Assessment/Plan: #Diffuse wounds on all extremities - Appreciate surgery consultation and noted recommendations: apply bacitracin ointment to scabs and scars on upper and lower extremity okay to wrap bilateral upper extremities with kerlix wrap to prevent patient from picking scabs and see if able to heal old traumatic wounds - Antibiotics by ID service. Patient has poor IV access and ordered PICC for am. Will need 2 MD signature. #Acute on chronic anemia #Anemia of ESRD #ESRD -Patient may benefit from PRBC transfusion if Hb <7 -Appreciate nephrology consultation. -monitor CBC and BMP -REFUSING HD as outpatient. - Next HD 08/26 #Chronic diastolic CHF #HTN #Hyperlipidemia -fluid management via HD, Planned for today 08/24 -continue minoxidil, clonidine, Coreg, Norvasc and Lipitor #Type 2 DM #Obesity -continue Januvia -lispro SS #Epilepsy -continue Keppra #Bipolar and anxiety -continue Seroquel -psych consult appreciated #Hypothyroidism -continue levothyroxine # Cellulitis of upper extremities - Zosyn and Vancomycin started. Anticipate IV course. - Monitor response to therapy - Surgery consult appreciated. - ? need for biopsy vs supportive care # Disposition - Patient is a resident at [facility] Full Code Subjective ROS Limited/Unobtainable: Yes Allergies: Coded Allergies: No Known Allergies (Verified , 08/23/06) Objective Last 24 Hour Vital Signs Date Time Temp Pulse Resp B/P (MAP) Pulse Ox O2 Delivery O2 Flow Rate FiO2 08/25/18 12:00 97.8 82 20 135/87 (103) 95 08/25/18 09:00 Room Air 08/25/18 08:00 97.7 76 20 153/71 (98) 94 08/25/18 04:00 97.8 77 20 158/75 (102) 97 08/25/18 00:00 97.9 74 18 151/75 (100) 97 08/24/18 22:40 Room Air 08/24/18 20:31 80 135/89 08/24/18 20:00 98.0 80 22 158/77 (104) 97 08/24/18 15:53 97.3 80 20 135/89 (104) 97 Intake and Output 08/24/18 08/25/18 18:59 06:59 Intake Total 55 ml Balance 55 ml Intake IV Total 55 ml # Voids 1 Laboratory Tests 08/24/18 16:40: White Blood Count 5.4, Red Blood Count 2.51L, Hemoglobin 7.6L, Hematocrit 23.1L , Mean Corpuscular Volume 92, Mean Corpuscular Hemoglobin 30.3, Mean Corpuscular Hemoglobin Concent 32.9, Red Cell Distribution Width 13.9, Platelet Count 172, Mean Platelet Volume 6.6, Neutrophils (%) (Auto) 74.7, Lymphocytes (% ) (Auto) 13.0L, Monocytes (%) (Auto) 7.9, Eosinophils (%) (Auto) 2.4, Basophils (%) (Auto) 2.0, Sodium Level 138, Potassium Level 4.2, Chloride Level 99, Carbon Dioxide Level 23, Anion Gap 16H, Blood Urea Nitrogen 57H, Creatinine 8.0H , Estimat Glomerular Filtration Rate 5.2, Glucose Level 84, Hemoglobin A1c 5.0, Uric Acid 4.4, Calcium Level 8.8, Phosphorus Level 7.1H, Magnesium Level 1.9, Iron Level 60, Total Iron Binding Capacity 150L, Percent Iron Saturation 40, Unsaturated Iron Binding 90L, Ferritin 543H, Total Bilirubin 0.6, Gamma Glutamyl Transpeptidase 30, Aspartate Amino Transf (AST/SGOT) 23, Alanine Aminotransferase (ALT/SGPT) 18, Alkaline Phosphatase 89, C-Reactive Protein, Quantitative 4.9H, Pro-B-Type Natriuretic Peptide > 56730E, Total Protein 6.7, Albumin 2.6L, Globulin 4.1, Albumin/Globulin Ratio 0.6L, Triglycerides Level 87 , Cholesterol Level 123, LDL Cholesterol 65, HDL Cholesterol 42, Cholesterol/ HDL Ratio 2.9L, Vitamin B12 Level 505, Folate 13.9, Thyroid Stimulating Hormone (TSH) 3.490, Hepatitis B Surface Antigen [Pending] Height (Feet): 5 Height (Inches): 6.00 Weight (Pounds): 200 General Appearance: WD/WN, no apparent distress EENT: PERRL/EOMI Neck: non-tender Cardiovascular: normal peripheral pulses, normal rate Respiratory/Chest: chest wall non-tender, lungs clear Abdomen: normal bowel sounds Neurologic: [employer] II-XII grossly normal Skin: Myrtle Broderick MD Aug 25, 2018 15:12
[2018-08-25 16:00] VITALS: BP 129/62
[2018-08-25 16:04] LABS: HEMATOCRIT 22.1 % (37.0-47.0); HEMOGLOBIN 7.6 G/DL (12.0-16.0); MEAN CORPUSCULAR VOLUME 90 FL (80-99); PLATELET COUNT 155 K/UL (150-450); RED BLOOD COUNT 2.45 M/UL (4.20-5.40); RED CELL DISTRIBUTION WIDTH 13.6 % (11.6-14.8); WHITE BLOOD COUNT 5.2 K/UL (4.8-10.8)
[2018-08-25 16:38] LABS: ANION GAP 15 mmol/L (5-15); BLOOD UREA NITROGEN 57 mg/dL (7-18); CALCIUM 8.8 MG/DL (8.5-10.1); CARBON DIOXIDE 26 MMOL/L (21-32); CHLORIDE 98 MMOL/L (98-107); CREATININE 8.6 MG/DL (0.55-1.30); POTASSIUM 4.8 MMOL/L (3.5-5.1); SODIUM 139 MMOL/L (136-145)
[2018-08-25] MEDS ORDERED: Vancomycin 1.25gm Premix IVPB ONE (18:00)
--- NOTE | 2018-08-25 19:22 | NUR ---
HAND-OFF: Report given to CHEPE Lopez.
--- NOTE | 2018-08-25 19:23 | NUR ---
NURSE NOTES: pt in bed, asleep, no sob nor distress noted. Breathing even, regular and unlabored. Bed in lowest position, locked, side rails x2, bed alarm on. call light within reach. will continue to monitor
[2018-08-25 20:00] VITALS: BP 173/63
[2018-08-25] MEDS: Atorvastatin 20mg tab ORAL SCH (20:45)
[2018-08-25] MEDS: HydrALAZINE 25mg tab ORAL PRN (20:45)
[2018-08-25] MEDS: QUEtiapine 200mg tab ORAL SCH (20:46)
--- NOTE | 2018-08-25 21:02 | Hematology/Onc Progress Note ---
Assessment/Plan Assessment/Plan Assessment and Recs: # Anemia of chronic disease (or of iron deficiency) due to underlying chronic medical issues, multifactorial --> Anemia workup has been reviewed from previous/recent admission, Ferritin 427 --> No evidence of hemolysis is noted, peripheral smear has been reviewed. --> Hgb goal >7. Transfuse prn. Hgb 8.1 --> Epogen or iron at this time is not particularly indicated ( consider epo based on anemia panel ) --> Medications have been reviewed --> low threshold for gi evaluation in case has occult + # ESRD (end stage renal disease) on dialysis --> HD 3x a week as per renal --> Creat level 10.4 # PNA --> previous admission # HTN / Pulmonary HTN --> controlled # Diabetes type 2. --> monitor BS levels The timing of this note does not necessarily reflect the time of the patient was seen. GREATLY APPRECIATE CONSULTATION. Subjective Allergies: Coded Allergies: No Known Allergies (Verified , 08/23/06) Subjective 08/25: no acute events. VS reviewed. Pt remains confused. Objective Objective Current Medications Medications (Trade) Dose Ordered Sig/Gabriele Route PRN Reason Start Time Stop Time Status Last Admin Dose Admin Acetaminophen (Tylenol) 650 mg Q4H PRN ORAL Mild Pain (Pain Scale 1-3) 08/23/18 17:00 09/22/18 16:59 Acetaminophen/ Hydrocodone Bitart ([place] 5/325) 1 tab Q4H PRN ORAL PAIN 4-10 08/23/18 17:00 08/30/18 16:59 Amlodipine Besylate (Norvasc) 10 mg DAILY ORAL 08/24/18 09:00 09/23/18 08:59 Atorvastatin Calcium (Lipitor) 40 mg BEDTIME ORAL 08/23/18 21:00 09/22/18 20:59 08/25/18 20:45 Bacitracin (Bacitracin 15gm tube) 1 applic PRN TOPIC 08/25/18 21:30 09/23/18 21:29 Bisacodyl (Dulcolax) 10 mg HSPRN PRN RECTAL Constipation 08/23/18 17:00 09/22/18 16:59 Carvedilol (Coreg) 3.125 mg EVERY 12 HOURS ORAL 08/23/18 21:00 09/22/18 20:59 08/25/18 20:45 Chlorhexidine Gluconate (Cassia-Hex 2%) 1 applic DAILY@2000 TOPIC 08/26/18 20:00 09/25/18 19:59 Clopidogrel Bisulfate (Plavix) 75 mg DAILY ORAL 08/24/18 09:00 09/23/18 08:59 Dextrose (Dextrose 50%) 25 ml Q30M PRN IV Hypoglycemia 08/23/18 17:00 09/22/18 16:59 Dextrose (Dextrose 50%) 50 ml Q30M PRN IV Hypoglycemia 08/23/18 17:00 09/22/18 16:59 Diphenhydramine HCl (Benadryl) 25 mg Q6H PRN ORAL Itching/Pruritis 08/23/18 17:00 09/22/18 16:59 08/25/18 12:37 Docusate Sodium (Colace) 100 mg TID ORAL 08/24/18 09:00 09/22/18 20:59 Gabapentin (Neurontin) 300 mg BID ORAL 08/23/18 18:00 09/22/18 17:59 08/23/18 17:36 Haloperidol Lactate (Haldol) 5 mg Q6H PRN IM Agitation 08/24/18 00:15 09/23/18 00:14 08/24/18 03:08 Hydralazine HCl (Apresoline) 25 mg Q4H PRN ORAL SBP > 160mmHg 08/23/18 19:30 09/22/18 16:59 08/25/18 20:45 Ipratropium [place] (Atrovent) 500 mcg Q6H PRN HHN Shortness of Breath 08/23/18 17:00 08/28/18 16:59 Levetiracetam (Keppra) 1,000 mg Q12HR ORAL 08/23/18 18:00 09/22/18 17:59 08/25/18 20:45 Levothyroxine Sodium (Synthroid) 50 mcg DAILY@0630 ORAL 08/24/18 06:30 09/23/18 06:29 08/25/18 06:08 Lidocaine HCl (Xylocaine 1% 30ml) 30 ml ONCE INJ 08/24/18 11:15 08/26/18 20:00 Lorazepam (Ativan 2mg/ml 1ml) 0.5 mg Q4H PRN IV For Anxiety 08/23/18 17:00 08/30/18 16:59 08/25/18 12:37 Ondansetron HCl (Zofran) 4 mg Q6H PRN IVP Nausea & Vomiting 08/23/18 17:00 09/22/18 16:59 Piperacillin Sod/ Tazobactam Sod 2.25 gm/Dextrose 55 ml @ 110 mls/hr Q8HR IVPB 08/23/18 22:00 08/28/18 21:59 08/25/18 14:00 Polyethylene Glycol (Miralax) 17 gm HSPRN PRN ORAL Constipation 08/23/18 21:00 09/22/18 20:59 Quetiapine Fumarate (SEROquel) 400 mg QHS ORAL 08/23/18 21:00 09/22/18 20:59 08/25/18 20:46 Sevelamer Carbonate (Renvela) 1,600 mg TID ORAL 08/25/18 09:00 09/23/18 08:59 08/25/18 12:37 Vancomycin HCl (Vanco rx to dose) 1 ea DAILY PRN MISC Per rx protocol 08/23/18 18:00 09/22/18 17:59 Vitamin B Complex/ Vit C/Folic Acid (Nephrovite) 1 tab DAILY ORAL 08/24/18 09:00 09/23/18 08:59 Last 24 Hour Vital Signs Date Time Temp Pulse Resp B/P (MAP) Pulse Ox O2 Delivery O2 Flow Rate FiO2 08/25/18 20:45 173/63 08/25/18 20:45 83 173/63 08/25/18 20:00 98.1 83 18 173/63 (99) 94 08/25/18 16:00 97.7 78 20 129/62 (84) 94 08/25/18 12:00 97.8 82 20 135/87 (103) 95 08/25/18 09:00 Room Air 08/25/18 08:00 97.7 76 20 153/71 (98) 94 08/25/18 04:00 97.8 77 20 158/75 (102) 97 08/25/18 00:00 97.9 74 18 151/75 (100) 97 08/24/18 22:40 Room Air 08/24/18 20:31 80 135/89 08/24/18 20:00 98.0 80 22 158/77 (104) 97 08/24/18 15:53 97.3 80 20 135/89 (104) 97 08/24/18 12:00 98.4 77 18 135/89 (104) 97 08/24/18 08:54 Room Air 08/24/18 08:00 98.7 80 17 131/82 (98) 97 08/24/18 04:00 99.0 76 16 137/96 (110) 96 08/24/18 00:00 98.3 72 18 130/77 (94) 96 08/23/18 23:12 Room Air 08/23/18 21:37 82 136/82 Intake and Output 08/24/18 08/25/18 19:00 07:00 Intake Total 55 ml Balance 55 ml IV Total 55 ml # Voids 1 Labs Test 08/23/18 15:30 08/24/18 16:40 08/25/18 15:35 White Blood Count 7.9 K/UL (4.8-10.8) 5.4 K/UL (4.8-10.8) 5.2 K/UL (4.8-10.8) Red Blood Count 2.67 M/UL (4.20-5.40) 2.51 M/UL (4.20-5.40) 2.45 M/UL (4.20-5.40) Hemoglobin 8.1 G/DL (12.0-16.0) 7.6 G/DL (12.0-16.0) 7.6 G/DL (12.0-16.0) Hematocrit 24.6 % (37.0-47.0) 23.1 % (37.0-47.0) 22.1 % (37.0-47.0) Mean Corpuscular Volume 92 FL (80-99) 92 FL (80-99) 90 FL (80-99) Mean Corpuscular Hemoglobin 30.2 PG (27.0-31.0) 30.3 PG (27.0-31.0) 31.0 PG (27.0-31.0) Mean Corpuscular Hemoglobin Concent 32.8 G/DL (32.0-36.0) 32.9 G/DL (32.0-36.0) 34.4 G/DL (32.0-36.0) Red Cell Distribution Width 13.9 % (11.6-14.8) 13.9 % (11.6-14.8) 13.6 % (11.6-14.8) Platelet Count 204 K/UL (150-450) 172 K/UL (150-450) 155 K/UL (150-450) Mean Platelet Volume 6.9 FL (6.5-10.1) 6.6 FL (6.5-10.1) 7.4 FL (6.5-10.1) Neutrophils (%) (Auto) 78.4 % (45.0-75.0) 74.7 % (45.0-75.0) % (45.0-75.0) Lymphocytes (%) (Auto) 9.2 % (20.0-45.0) 13.0 % (20.0-45.0) % (20.0-45.0) Monocytes (%) (Auto) 10.4 % (1.0-10.0) 7.9 % (1.0-10.0) % (1.0-10.0) Eosinophils (%) (Auto) 0.0 % (0.0-3.0) 2.4 % (0.0-3.0) % (0.0-3.0) Basophils (%) (Auto) 2.0 % (0.0-2.0) 2.0 % (0.0-2.0) % (0.0-2.0) Sodium Level 135 MMOL/L (136-145) 138 MMOL/L (136-145) 139 MMOL/L (136-145) Potassium Level 4.8 MMOL/L (3.5-5.1) 4.2 MMOL/L (3.5-5.1) 4.8 MMOL/L (3.5-5.1) Chloride Level 95 MMOL/L (98-107) 99 MMOL/L (98-107) 98 MMOL/L (98-107) Carbon Dioxide Level 22 MMOL/L (21-32) 23 MMOL/L (21-32) 26 MMOL/L (21-32) Anion Gap 18 mmol/L (5-15) 16 mmol/L (5-15) 15 mmol/L (5-15) Blood Urea Nitrogen 73 mg/dL (7-18) 57 mg/dL (7-18) 57 mg/dL (7-18) Creatinine 10.4 MG/DL (0.55-1.30) 8.0 MG/DL (0.55-1.30) 8.6 MG/DL (0.55-1.30) Estimat Glomerular Filtration Rate 3.9 mL/min (>60) 5.2 mL/min (>60) 4.7 mL/min (>60) Glucose Level 84 MG/DL (74-106) 84 MG/DL (74-106) 101 MG/DL (74-106) Lactic Acid Level 0.50 mmol/L (0.4-2.0) Calcium Level 9.0 MG/DL (8.5-10.1) 8.8 MG/DL (8.5-10.1) 8.8 MG/DL (8.5-10.1) Total Bilirubin 0.6 MG/DL (0.2-1.0) 0.6 MG/DL (0.2-1.0) Aspartate Amino Transf (AST/SGOT) 21 U/L (15-37) 23 U/L (15-37) Alanine Aminotransferase (ALT/SGPT) 17 U/L (12-78) 18 U/L (12-78) Alkaline Phosphatase 93 U/L (46-116) 89 U/L (46-116) Ammonia 14 umol/L (11-32) Pro-B-Type Natriuretic Peptide > 17987 pg/mL (0-125) > 58638 pg/mL (0-125) Total Protein 6.9 G/DL (6.4-8.2) 6.7 G/DL (6.4-8.2) Albumin 2.8 G/DL (3.4-5.0) 2.6 G/DL (3.4-5.0) Globulin 4.1 g/dL 4.1 g/dL Albumin/Globulin Ratio 0.7 (1.0-2.7) 0.6 (1.0-2.7) Hemoglobin A1c 5.0 % (4.3-6.0) Uric Acid 4.4 MG/DL (2.6-7.2) Phosphorus Level 7.1 MG/DL (2.5-4.9) Magnesium Level 1.9 MG/DL (1.8-2.4) Iron Level 60 ug/dL (50-175) Total Iron Binding Capacity 150 ug/dL (250-450) Percent Iron Saturation 40 % (15-50) Unsaturated Iron Binding 90 ug/dL (112-346) Ferritin 543 NG/ML (8-388) Gamma Glutamyl Transpeptidase 30 U/L (5-85) C-Reactive Protein, Quantitative 4.9 mg/dL (0.00-0.90) Triglycerides Level 87 MG/DL (30-150) Cholesterol Level 123 MG/DL (< 200) LDL Cholesterol 65 mg/dL (<100) HDL Cholesterol 42 MG/DL (40-60) Cholesterol/HDL Ratio 2.9 (3.3-4.4) Vitamin B12 Level 505 PG/ML (193-986) Folate 13.9 NG/ML (8.6-58.9) Thyroid Stimulating Hormone (TSH) 3.490 uiU/mL (0.358-3.740) Random Vancomycin Level 12.6 ug/mL Height (Feet): 5 Height (Inches): 6.00 Weight (Pounds): 200 Objective Objective Narrative PE General Appearance: no apparent distress, confused Head: normocephalic, atraumatic Eyes: bilateral eye PERRL ENT: dry mucus membranes Neck: supple Respiratory: no retraction,diminished bilaterally CV: regular rate, rhythm GI: non tender, soft MSK: other - Significant edema with erythema both lower extremities patient has multiple abrasions in the upper extremity Neurologic: responsive - To physical and verbal stimuli, however patient appears confused Skin: other - As above Lymphatic: no adenopathy Eugenia Healy NP Aug 25, 2018 21:02
[2018-08-26] VITALS (8 sets, daily range): BP systolic 138–196; BP diastolic 59–80
[2018-08-26] MEDS: Haloperidol 5mg/ml Inj IM PRN ×2 (00:22→21:36)
--- NOTE | 2018-08-26 00:30 | NUR ---
NURSE NOTES: Pt found on floor sitting upright on her knees and stated she was "tangled up" and wanted to sit up on bed side. I was grabbing medication as pt appeared restless and agitated, I was drawing up haldol to administer when pt exited the bed. 4 siderails were up. Pt on floor when I entered the room to scan the patient to administer medication. She hit left leg and has small abrasion on lateral aspect of the knee. she did not hit her head. will continue to monitor and contact physician.
--- NOTE | 2018-08-26 00:40 | NUR ---
NURSE NOTES: Vitals signs current: 98.2, pulse 68, respirations 16, BP elevated at 186/78 will administer BP med as prescribed
--- NOTE | 2018-08-26 00:45 | NUR ---
NURSE NOTES: Dr Beckett called regarding need for further orders and possible restraints as pt is trying to get out of bed and is unable to be redirected.
--- NOTE | 2018-08-26 00:45 | NUR ---
NURSE NOTES: Left voicemail for Dr Beckett and awaiting response.
--- NOTE | 2018-08-26 00:46 | NUR ---
NURSE NOTES: Contacted and left voicemail for Dr Rudolph, primary physician.
[2018-08-26] MEDS: HydrALAZINE 25mg tab ORAL PRN ×2 (01:21→17:52)
--- NOTE | 2018-08-26 01:27 | NUR ---
NURSE NOTES: pt lying supine in bed. still appears agitated, will continue to monitor
[2018-08-26] MEDS: LORazepam Inj 2mg/ml 1ml IV PRN (01:36)
--- NOTE | 2018-08-26 01:54 | NUR ---
NURSE NOTES: Dr Rudolph paged. Dr Arevalo covering for Dr Rudolph called back and gave order to apply non behavioral restraints as pt is unable to be redirected and continues to climb out of bed. Alternative measures used were unsuccessful. Pt continues to try to get out of bed and is very confused. will continue to monitor
[2018-08-26] MEDS: Piperacillin/Tazobactam 2.25 GM in D5W 55 ML IVPB SCH ×3 (05:48→21:36)
--- NOTE | 2018-08-26 07:06 | NUR ---
HAND-OFF: Report given to CHEPE Erwin.
[2018-08-26] MEDS: Docusate 100mg cap ORAL SCH ×3 (09:34→17:52)
[2018-08-26] MEDS: Nephrovite tab (Rena-Vite) ORAL SCH (09:35)
[2018-08-26] MEDS: Lidocaine 1% Plain 30 ml INJ SCH ×2 (09:39→11:15)
--- NOTE | 2018-08-26 14:29 | Surgery Progress Note ---
Surgery Progress Note Subjective Additional Comments resting comfortable. restrains currently because danger to staff and herself. arms wrapped and wounds have began to improve since. renal insufficiency Objective Last 24 Hour Vital Signs Date Time Temp Pulse Resp B/P (MAP) Pulse Ox O2 Delivery O2 Flow Rate FiO2 08/26/18 12:00 97.9 78 18 138/70 (92) 98 08/26/18 09:35 73 144/68 08/26/18 09:34 73 144/68 08/26/18 08:00 98.6 73 18 144/68 (93) 98 08/26/18 04:00 98.4 68 18 140/59 (86) 97 08/26/18 02:25 Room Air 08/26/18 01:21 186/78 08/26/18 00:40 98.2 68 16 186/78 (114) 94 08/25/18 21:00 Room Air 08/25/18 20:45 173/63 08/25/18 20:45 83 173/63 08/25/18 20:00 98.1 83 18 173/63 (99) 94 08/25/18 16:00 97.7 78 20 129/62 (84) 94 I&O Intake and Output 08/25/18 08/26/18 19:00 07:00 Intake Total 240 ml Balance 240 ml Intake Oral 240 ml # Voids 4 Dressing: dry Wound: clean Cardiovascular: RSR Respiratory: clear Abdomen: soft, flat, non-tender, present bowel sounds Extremities: edema, no tenderness, no cyanosis, pulses, other Laboratory Tests Test 08/25/18 15:35 White Blood Count 5.2 K/UL (4.8-10.8) Red Blood Count 2.45 M/UL (4.20-5.40) L Hemoglobin 7.6 G/DL (12.0-16.0) L Hematocrit 22.1 % (37.0-47.0) L Mean Corpuscular Volume 90 FL (80-99) Mean Corpuscular Hemoglobin 31.0 PG (27.0-31.0) Mean Corpuscular Hemoglobin Concent 34.4 G/DL (32.0-36.0) Red Cell Distribution Width 13.6 % (11.6-14.8) Platelet Count 155 K/UL (150-450) Mean Platelet Volume 7.4 FL (6.5-10.1) Neutrophils (%) (Auto) % (45.0-75.0) Lymphocytes (%) (Auto) % (20.0-45.0) Monocytes (%) (Auto) % (1.0-10.0) Eosinophils (%) (Auto) % (0.0-3.0) Basophils (%) (Auto) % (0.0-2.0) Sodium Level 139 MMOL/L (136-145) Potassium Level 4.8 MMOL/L (3.5-5.1) Chloride Level 98 MMOL/L (98-107) Carbon Dioxide Level 26 MMOL/L (21-32) Anion Gap 15 mmol/L (5-15) Blood Urea Nitrogen 57 mg/dL (7-18) H Creatinine 8.6 MG/DL (0.55-1.30) H Estimat Glomerular Filtration Rate 4.7 mL/min (>60) Glucose Level 101 MG/DL (74-106) Calcium Level 8.8 MG/DL (8.5-10.1) Random Vancomycin Level 12.6 ug/mL Plan Problems: (1) Schizoaffective disorder, bipolar type (2) Lower extremity cellulitis Assessment & Plan: 57-year-old female with multiple medical comorbidities presenting from a half-way On admission patient identified to have multiple wounds Etiology of wounds potentially from trauma Patient a poor historian Patient noted to have multiple scabs on her upper and lower extremities Patient does have some distal ischemia in the toes No acute surgical intervention patient denies itching but continues to scratch wounds and open scabs distribution of wounds do not seem to be rash or skin disorder. mainly trauma related patient has blood blister noted on her right hand that she picks at causing drainage. will hold on skin biopsy for now will need to reinforce to patient not to pick at wounds, remove scabs, or deep scratching. appreciate psych input apply bacitracin ointment to scabs and scars on upper and lower extremity okay to wrap bilateral upper extremities with kerlix wrap to prevent patient from picking scabs and see if able to heal old traumatic wounds Offload pressure Turn every 2 hours We will monitor wounds while in hospital to ensure healing Nutritional optimization Thank you IV ABX (3) MDD (major depressive disorder), recurrent episode, moderate (4) Symptomatic anemia (5) Acute metabolic encephalopathy (6) CHF (congestive heart failure) (7) Bradycardia (8) Diabetes mellitus, type II (9) Hypothyroidism (10) Costochondritis (11) GERD (gastroesophageal reflux disease) (12) HTN (hypertension) (13) Anemia in chronic renal disease (14) Cellulitis of arm, right (15) Clotted renal dialysis arteriovenous graft (16) ESRD (end stage renal disease) on dialysis (17) Seizure disorder (18) Non-compliance with renal dialysis (19) Pulmonary edema (20) Pneumonia (21) History of colon cancer Vic Wise Aug 26, 2018 14:29
--- NOTE | 2018-08-26 15:09 | NUR ---
NURSE NOTES: PT AXOX2, TO NAME AND PLACE. PT ABLE TO FOLLOW SIMPLE COMMANDS, CONFUSED AND RESTLESS AT TIMES. CRIS, HEMODIALYSIS NURSE AT BEDSIDE. MULTIPLE TIMES, PT ATTEMPTS TO REMOVE BANDAGES ON RIGHT ARM. BILATERAL SOFT RESTRAINTS ON BOTH WRISTS. NO SWELLING OR SKIN BREAKDOWN NOTED. IN NO APPARENT DISTRESS AT THIS TIME. BED IN LOWEST POSITION WITH BEDSIDE RAILS X2 RAISED. IN SEMI-BOTELLO'S POSITION WITH HOB ELEVATED. BEDSIDE RAILS PADDED. WILL CONTINUE TO MONITOR.
--- NOTE | 2018-08-26 15:10 | Infectious Diseases Prog Note ---
Assessment/Plan Assessment/Plan ASSESSMENT AND PLAN: 1. bilateral UE/LE (leg/foot/arm/hand) possible infected wounds and cellulitis, necrosis/? gangrene noted - zosyn and vancomycin - day # 4 abx - less cellulitis clinically, wounds stable - surgery f/u - debridement and biopsy if needed, local wound care for now - wound care per protocol - monitor labs 2. The patient has encephalopathy. 3. Renal failure. 4. Hemodialysis. 5. End-stage renal disease. 6. Hypothyroidism. Continue with thyroid supplementation. 7. Diabetes type 2. Blood sugar treatment per primary. 8. Hypertension. 9. Hyperlipidemia. 10. Congestive heart failure, hx of pna 11. Chronic obstructive pulmonary disease. 12. Cardiovascular disease. 13. Hypothyroidism. 14. Obesity. 15. Cerebrovascular accident and weakness. 16. Bipolar disease. 17. She has no known drug allergies. 18. Social history negative. 19. Family history noncontributory. 20. MAR was noted. 21. Case discussed with RN. 22. Continue treatment per primary consultants. 23. time spent 30 plus minutes Subjective Constitutional: Reports: fatigue; Denies: fever HEENT: Denies: congestion Respiratory: Denies: shortness of breath Cardiovascular: Denies: chest pain Gastrointestinal/Abdominal: Denies: nausea, vomiting, diarrhea Genitourinary: Reports: other - no waller - hd patient Neurologic: Denies: headache Psychiatric: Denies: depression Skin: Denies: rash Hematologic: Denies: bleeding Musculoskeletal: Denies: pain Allergies: Coded Allergies: No Known Allergies (Verified , 08/23/06) Objective Vital Signs Last 24 Hour Vital Signs Date Time Temp Pulse Resp B/P (MAP) Pulse Ox O2 Delivery O2 Flow Rate FiO2 08/26/18 12:00 97.9 78 18 138/70 (92) 98 08/26/18 09:35 73 144/68 08/26/18 09:34 73 144/68 08/26/18 08:00 98.6 73 18 144/68 (93) 98 08/26/18 04:00 98.4 68 18 140/59 (86) 97 08/26/18 02:25 Room Air 08/26/18 01:21 186/78 08/26/18 00:40 98.2 68 16 186/78 (114) 94 08/25/18 21:00 Room Air 08/25/18 20:45 173/63 08/25/18 20:45 83 173/63 08/25/18 20:00 98.1 83 18 173/63 (99) 94 08/25/18 16:00 97.7 78 20 129/62 (84) 94 Height (Feet): 5 Height (Inches): 6.00 Weight (Pounds): 200 General Appearance: no acute distress HEENT: normocephalic, atraumatic, anicteric Respiratory/Chest: lungs clear, normal breath sounds, no respiratory distress, crackles/rales, other - few bilateral crackles but mostly clear bilateral Cardiovascular: normal rate, regular rhythm, no gallop/murmur Abdomen: normal bowel sounds, soft, non tender, no organomegaly Genitourinary: other - no waller, + hd Extremities: other - decreased cellulitis, wounds stablel Skin: no rash 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 Findings: Pulmonary vascular congestion demonstrated with prominent vascularity especially in the hilar regions and cardiomegaly. Similar findings seen on the previous occasion. IMPRESSION: No change. CHF Microbiology Date/Time Source Procedure Growth Status 08/23/18 15:30 Blood Blood Culture - Preliminary NO GROWTH AFTER 48 HOURS Resulted 08/23/18 15:15 Blood Blood Culture - Preliminary NO GROWTH AFTER 48 HOURS Resulted Laboratory Tests Test 08/25/18 15:35 White Blood Count 5.2 K/UL (4.8-10.8) Red Blood Count 2.45 M/UL (4.20-5.40) L Hemoglobin 7.6 G/DL (12.0-16.0) L Hematocrit 22.1 % (37.0-47.0) L Mean Corpuscular Volume 90 FL (80-99) Mean Corpuscular Hemoglobin 31.0 PG (27.0-31.0) Mean Corpuscular Hemoglobin Concent 34.4 G/DL (32.0-36.0) Red Cell Distribution Width 13.6 % (11.6-14.8) Platelet Count 155 K/UL (150-450) Mean Platelet Volume 7.4 FL (6.5-10.1) Neutrophils (%) (Auto) % (45.0-75.0) Lymphocytes (%) (Auto) % (20.0-45.0) Monocytes (%) (Auto) % (1.0-10.0) Eosinophils (%) (Auto) % (0.0-3.0) Basophils (%) (Auto) % (0.0-2.0) Sodium Level 139 MMOL/L (136-145) Potassium Level 4.8 MMOL/L (3.5-5.1) Chloride Level 98 MMOL/L (98-107) Carbon Dioxide Level 26 MMOL/L (21-32) Anion Gap 15 mmol/L (5-15) Blood Urea Nitrogen 57 mg/dL (7-18) H Creatinine 8.6 MG/DL (0.55-1.30) H Estimat Glomerular Filtration Rate 4.7 mL/min (>60) Glucose Level 101 MG/DL (74-106) Calcium Level 8.8 MG/DL (8.5-10.1) Random Vancomycin Level 12.6 ug/mL Current Medications Medications (Trade) Dose Ordered Sig/Gabriele Route PRN Reason Start Time Stop Time Status Last Admin Dose Admin Acetaminophen (Tylenol) 650 mg Q4H PRN ORAL Mild Pain (Pain Scale 1-3) 08/23/18 17:00 09/22/18 16:59 Acetaminophen/ Hydrocodone Bitart ([place] 5/325) 1 tab Q4H PRN ORAL PAIN 4-10 08/23/18 17:00 08/30/18 16:59 Amlodipine Besylate (Norvasc) 10 mg DAILY ORAL 08/24/18 09:00 09/23/18 08:59 08/26/18 09:35 Atorvastatin Calcium (Lipitor) 40 mg BEDTIME ORAL 08/23/18 21:00 09/22/18 20:59 08/25/18 20:45 Bacitracin (Bacitracin 15gm tube) 1 applic PRN TOPIC 08/25/18 21:30 09/23/18 21:29 Bisacodyl (Dulcolax) 10 mg HSPRN PRN RECTAL Constipation 08/23/18 17:00 09/22/18 16:59 Carvedilol (Coreg) 3.125 mg EVERY 12 HOURS ORAL 08/23/18 21:00 09/22/18 20:59 08/26/18 09:34 Chlorhexidine Gluconate (Cassia-Hex 2%) 1 applic DAILY@2000 TOPIC 08/26/18 20:00 09/25/18 19:59 Clopidogrel Bisulfate (Plavix) 75 mg DAILY ORAL 08/24/18 09:00 09/23/18 08:59 08/26/18 09:34 Dextrose (Dextrose 50%) 25 ml Q30M PRN IV Hypoglycemia 08/23/18 17:00 09/22/18 16:59 Dextrose (Dextrose 50%) 50 ml Q30M PRN IV Hypoglycemia 08/23/18 17:00 09/22/18 16:59 Diphenhydramine HCl (Benadryl) 25 mg Q6H PRN ORAL Itching/Pruritis 08/23/18 17:00 09/22/18 16:59 08/26/18 00:21 Docusate Sodium (Colace) 100 mg TID ORAL 08/24/18 09:00 09/22/18 20:59 08/26/18 12:22 Gabapentin (Neurontin) 300 mg BID ORAL 08/23/18 18:00 09/22/18 17:59 08/26/18 09:35 Haloperidol Lactate (Haldol) 5 mg Q6H PRN IM Agitation 08/24/18 00:15 09/23/18 00:14 08/26/18 00:22 Hydralazine HCl (Apresoline) 25 mg Q4H PRN ORAL SBP > 160mmHg 08/23/18 19:30 09/22/18 16:59 08/26/18 01:21 Ipratropium [place] (Atrovent) 500 mcg Q6H PRN HHN Shortness of Breath 08/23/18 17:00 08/28/18 16:59 Levetiracetam (Keppra) 1,000 mg Q12HR ORAL 08/23/18 18:00 09/22/18 17:59 08/26/18 09:35 Levothyroxine Sodium (Synthroid) 50 mcg DAILY@0630 ORAL 08/24/18 06:30 09/23/18 06:29 08/26/18 05:52 Lidocaine HCl (Xylocaine 1% 30ml) 30 ml ONCE INJ 08/24/18 11:15 08/26/18 20:00 Lorazepam (Ativan 2mg/ml 1ml) 0.5 mg Q4H PRN IV For Anxiety 08/23/18 17:00 08/30/18 16:59 08/26/18 01:36 Ondansetron HCl (Zofran) 4 mg Q6H PRN IVP Nausea & Vomiting 08/23/18 17:00 09/22/18 16:59 Piperacillin Sod/ Tazobactam Sod 2.25 gm/Dextrose 55 ml @ 110 mls/hr Q8HR IVPB 08/23/18 22:00 08/28/18 21:59 08/26/18 05:48 Polyethylene Glycol (Miralax) 17 gm HSPRN PRN ORAL Constipation 08/23/18 21:00 09/22/18 20:59 Quetiapine Fumarate (SEROquel) 400 mg QHS ORAL 08/23/18 21:00 09/22/18 20:59 08/25/18 20:46 Sevelamer Carbonate (Renvela) 1,600 mg TID ORAL 08/25/18 09:00 09/23/18 08:59 08/26/18 12:22 Vancomycin HCl (Vanco rx to dose) 1 ea DAILY PRN MISC Per rx protocol 08/23/18 18:00 09/22/18 17:59 Vitamin B Complex/ Vit C/Folic Acid (Nephrovite) 1 tab DAILY ORAL 08/24/18 09:00 09/23/18 08:59 08/26/18 09:35 Nehal Nolasco MD Aug 26, 2018 15:09
[2018-08-26] MEDS: Bacitracin Oint 15gm Tube TOPIC SCH (16:24)
--- NOTE | 2018-08-26 17:08 | Nephrology Progress Note ---
Assessment/Plan Problem List: (1) ESRD (end stage renal disease) on dialysis (2) Anemia in chronic renal disease (3) Schizoaffective disorder, bipolar type (4) Diabetes mellitus, type II (5) Hypothyroidism Assessment - Cellulitis both LE - Metabolic Encephalopathy - End-stage renal disease, on hemodialysis. fistula right arm - Anemia of chronic kidney disease. - HTN / Pulmonary HTN - Diabetes type 2. -HypoThyroidism Others - Morbid obesity. - H/O Colon Cancer - H/O Hep C - H/O Depression and Bipolar disease - Psych disease uncoaporative --Bilateral leg numbness --diabetic neuropathy --L5-S1 disc protrusion Plan HD done 08/24 next 08/26 skin care / Antibiotics per consultants Subjective ROS Limited/Unobtainable: No Constitutional: Reports: malaise Objective Objective Last 24 Hour Vital Signs Date Time Temp Pulse Resp B/P (MAP) Pulse Ox O2 Delivery O2 Flow Rate FiO2 08/26/18 12:00 97.9 78 18 138/70 (92) 98 08/26/18 09:35 73 144/68 08/26/18 09:34 73 144/68 08/26/18 09:00 Room Air 08/26/18 08:00 98.6 73 18 144/68 (93) 98 08/26/18 04:00 98.4 68 18 140/59 (86) 97 08/26/18 02:25 Room Air 08/26/18 01:21 186/78 08/26/18 00:40 98.2 68 16 186/78 (114) 94 08/25/18 21:00 Room Air 08/25/18 20:45 173/63 08/25/18 20:45 83 173/63 08/25/18 20:00 98.1 83 18 173/63 (99) 94 Intake and Output 08/25/18 08/26/18 18:59 06:59 Intake Total 240 ml Balance 240 ml Intake Oral 240 ml # Voids 4 Height (Feet): 5 Height (Inches): 6.00 Weight (Pounds): 200 General Appearance: no apparent distress Objective no change Eamon Solis MD Aug 26, 2018 17:08
--- NOTE | 2018-08-26 18:08 | NUR ---
NURSE NOTES: PT WITH ELEVATED BP, RN RE-CHECKED VITALS AND BP IS 191/75, PULSE 70. IN NO APPARENT DISTRESS AT THIS TIME. NO SOB OR RESPIRATORY DISTRESS NOTED. PT'S MENTAL STATUS AT BASELINE FROM ADMISSION. RN ADMINISTERED PRN APRESOLINE 25MG FOR SBP>160. WILL RE-ASSESS PT/ PT RESTING IN BED, CALM. WILL CONTINUE TO MONITOR.
--- NOTE | 2018-08-26 18:42 | NUR ---
NURSE NOTES: DR COLLIER MADE AWARE OF UNABLE TO OBTAIN IV ACCESS AND DR MCCOY WITH ORDER FOR PICC LINE AND NOTED NEEDS 2 MDs TO CONSENT FOR PICC PLACEMENT. PER DR COLLIER, SHE SPOKE TO ID AND PT WILL BE TRANSITIONED TO PO ANTIBIOTICS.
--- NOTE | 2018-08-26 19:00 | NUR ---
CASE MANAGEMENT: REVIEW SI: LOWER EXTREMITY CELLULITIS T 97.8 HR 73 RR 19 BP 196/80 SAT 95% ROOM AIR IS: ZOSYN IV Q8HR SEVELAMER PO TID PLAVIX PO QD NORVASC PO QD HYDRALAZINE PO PRN MED/SURG UNIT DCP: PATIENT IS FROM [facility]
--- NOTE | 2018-08-26 19:28 | NUR ---
HAND-OFF: Report given to Conor SPENCER RN.
--- NOTE | 2018-08-26 19:30 | NUR ---
NURSE NOTES: pt in bed, awake, alert x1. confused, no sob nor distress noted. Breathing even, regular and unlabored. Bed in lowest position, locked, side rails x2, bed alarm on- zone 2. call light within reach. will continue to monitor. bilateral soft wrist restraints on, on fall precautions
[2018-08-26] MEDS: Dyna-Hex 2% Top Sol 2oz TOPIC SCH (20:00)
[2018-08-26] MEDS ORDERED: CALCIUM ACETAT667 M1 PO (20:17)
[2018-08-26] MEDS ORDERED: BREO ELLIPTA 11 EACH IH (20:17)
--- NOTE | 2018-08-26 20:35 | General Progress Note ---
Assessment/Plan Assessment/Plan: #Diffuse wounds on all extremities - Appreciate surgery consultation and noted recommendations: apply bacitracin ointment to scabs and scars on upper and lower extremity okay to wrap bilateral upper extremities with kerlix wrap to prevent patient from picking scabs and see if able to heal old traumatic wounds - Antibiotics by ID service. Patient has poor IV access, likely transition to PO abx in AM, if not PICC will be needed #Acute on chronic anemia #Anemia of ESRD #ESRD -Patient may benefit from PRBC transfusion if Hb <7 -Appreciate nephrology consultation. -monitor CBC and BMP -REFUSING HD as outpatient. - HD per renal #Chronic diastolic CHF #HTN #Hyperlipidemia -fluid management via HD, Planned for today 08/24 -continue minoxidil, clonidine, Coreg, Norvasc and Lipitor #Type 2 DM #Obesity -continue Januvia -lispro SS #Epilepsy -continue Keppra #Bipolar and anxiety -continue Seroquel -psych consult appreciated #Hypothyroidism -continue levothyroxine # Cellulitis of upper extremities - Zosyn and Vancomycin started. Anticipate IV course. - Monitor response to therapy - Surgery consult appreciated. - supportive care # Disposition - Patient is a resident at [facility] VTE PPx SCD Full Code I spent 70 minutes on this patient's case, and 35 minutes was dedicated to counseling and/or care coordination. Subjective Date patient seen: Aug 26, 2018 Allergies: Coded Allergies: No Known Allergies (Verified , 08/23/06) Subjective No acute overnight events, remain on restraints, will try to DC. wounds healing well, will transition to PO ABX in AM Objective Last 24 Hour Vital Signs Date Time Temp Pulse Resp B/P (MAP) Pulse Ox O2 Delivery O2 Flow Rate FiO2 08/26/18 18:49 73 168/79 (108) 08/26/18 17:59 70 16 191/75 (113) 93 08/26/18 17:52 191/75 08/26/18 16:00 97.8 73 19 196/80 (118) 95 08/26/18 12:00 97.9 78 18 138/70 (92) 98 08/26/18 09:35 73 144/68 08/26/18 09:34 73 144/68 08/26/18 09:00 Room Air 08/26/18 08:00 98.6 73 18 144/68 (93) 98 08/26/18 04:00 98.4 68 18 140/59 (86) 97 08/26/18 02:25 Room Air 08/26/18 01:21 186/78 08/26/18 00:40 98.2 68 16 186/78 (114) 94 08/25/18 21:00 Room Air 08/25/18 20:45 173/63 08/25/18 20:45 83 173/63 Intake and Output 08/25/18 08/26/18 18:59 06:59 Intake Total 240 ml Balance 240 ml Intake Oral 240 ml # Voids 4 Laboratory Tests 08/26/18 17:20: Random Vancomycin Level 21.5 Height (Feet): 5 Height (Inches): 6.00 Weight (Pounds): 200 Lupe Escalona MD Aug 26, 2018 20:35
[2018-08-26] MEDS: QUEtiapine 200mg tab ORAL SCH (21:35)
[2018-08-26] MEDS: Atorvastatin 20mg tab ORAL SCH (21:36)
--- NOTE | 2018-08-26 21:50 | NUR ---
NURSE NOTES: Unable to administer IV zosyn as pt had no IV access. aware. Will attempt to insert IV for next dose.
[2018-08-27] VITALS (7 sets, daily range): BP systolic 160–200; BP diastolic 62–81
--- NOTE | 2018-08-27 00:45 | Progress Note ---
DATE: 08/26/2018 SUBJECTIVE: The patient is in bed. During the evaluation, she was delusional, more confused than baseline. the patient was falling out of the bed last night, has memory impairment. Not able to answer the questions appropriately. MENTAL STATUS EXAMINATION: The patient is alert and oriented times to self. Mood is neutral to agitation. Affect is flat. Thought process, there is a paucity of thought content. Thought content, no suicidal or homicidal ideation. ASSESSMENT: 1. Schizoaffective disorder. 2. Encephalopathy. PLAN: 1. No medication changes. 2. The patient lacks capacity to make decision. 3. Prescribing opiate pain medication. Blanka Beckett M.D. DR: TY JOB#: [id number] CC: VIKAS
[2018-08-27] MEDS: HydrALAZINE 25mg tab ORAL PRN ×2 (01:56→05:57)
[2018-08-27] MEDS: LORazepam Inj 2mg/ml 1ml IV PRN ×2 (02:29→06:46)
--- NOTE | 2018-08-27 02:29 | NUR ---
NURSE NOTES: Pt had no IV access. I was able to obtain IV access and pt has IV antibiotic zosyn in the morning. IV is in L upper arm 24 gauge NS lock.
[2018-08-27] MEDS: Piperacillin/Tazobactam 2.25 GM in D5W 55 ML IVPB SCH ×3 (05:57→22:19)
--- NOTE | 2018-08-27 07:07 | NUR ---
HAND-OFF: Report given to CHEPE Erwin.
[2018-08-27 07:34] LABS: HEMATOCRIT 24.2 % (37.0-47.0); HEMOGLOBIN 7.7 G/DL (12.0-16.0); MEAN CORPUSCULAR VOLUME 95 FL (80-99); PLATELET COUNT 143 K/UL (150-450); RED BLOOD COUNT 2.55 M/UL (4.20-5.40); RED CELL DISTRIBUTION WIDTH 14.4 % (11.6-14.8)
--- NOTE | 2018-08-27 07:35 | NUR ---
NURSE NOTES: PT AXOX2, ATTEMPTS TO TAKE OFF BILATERAL WRIST RESTRAINTS. PT EDUCATED ON CONDITIONS TO REMOVE RESTRAINTS. PT UNABLE TO VERBALIZE UNDERSTANDING. PT IS AXOX2. IN NO APPARENT DISTRESS AT THIS TIME. HOB ELEVATED AND IN HIGH BOTELLO'S POSITION. WILL CONTINUE TO MONITOR.
[2018-08-27 07:53] LABS: ALANINE AMINOTRANSFERASE 15 U/L (12-78); ALBUMIN 2.4 G/DL (3.4-5.0); ALBUMIN/GLOBULIN RATIO 0.6 (1.0-2.7); ALKALINE PHOSPHATASE 86 U/L (46-116); ANION GAP 17 mmol/L (5-15); ASPARTATE AMINO TRANSFERASE 21 U/L (15-37); BILIRUBIN,TOTAL 0.6 MG/DL (0.2-1.0); BLOOD UREA NITROGEN 42 mg/dL (7-18); CARBON DIOXIDE 22 MMOL/L (21-32); CHLORIDE 99 MMOL/L (98-107); CREATININE 7.9 MG/DL (0.55-1.30); POTASSIUM 4.5 MMOL/L (3.5-5.1); SODIUM 138 MMOL/L (136-145)
[2018-08-27] MEDS: Nephrovite tab (Rena-Vite) ORAL SCH ×2 (08:22→09:00)
[2018-08-27] MEDS: Docusate 100mg cap ORAL SCH ×4 (08:22→17:21)
--- NOTE | 2018-08-27 09:06 | Hematology/Onc Progress Note ---
Assessment/Plan Assessment/Plan Assessment and Recs: # Anemia of chronic disease (or of iron deficiency) due to underlying chronic medical issues, multifactorial --> Anemia workup has been reviewed from previous/recent admission, Ferritin 427 --> No evidence of hemolysis is noted, peripheral smear has been reviewed. --> Hgb goal >7. Transfuse prn. Hgb 8.1 --> Epogen or iron at this time is not particularly indicated ( consider epo based on anemia panel ) --> Medications have been reviewed --> low threshold for gi evaluation in case has occult + # ESRD (end stage renal disease) on dialysis --> HD 3x a week as per renal --> Creat level 10.4-->8-->7.9 # PNA --> previous admission # HTN / Pulmonary HTN --> controlled # Diabetes type 2. --> monitor BS levels The timing of this note does not necessarily reflect the time of the patient was seen. GREATLY APPRECIATE CONSULTATION. Subjective Constitutional: Denies: no symptoms, chills, fever, malaise, weakness, other HEENT: Denies: no symptoms, eye pain, blurred vision, tearing, double vision, ear pain, ear discharge, nose pain, nose congestion, throat pain, throat swelling, mouth pain, mouth swelling, other Cardiovascular: Denies: no symptoms, chest pain, edema, irregular heart rate, lightheadedness, palpitations, syncope, other Respiratory: Denies: no symptoms, cough, shortness of breath, SOB with excertion, SOB at rest, sputum, wheezing, other Gastrointestinal/Abdominal: Denies: no symptoms, abdomen distended, abdominal pain, black stools, tarry stools, blood in stool, constipated, diarrhea, difficulty swallowing, nausea, poor appetite, poor fluid intake, rectal bleeding , vomiting, other Genitourinary: Denies: no symptoms, burning, discharge, frequency, flank pain, hematuria, incontinence, pain, urgency, other Neurologic/Psychiatric: Denies: no symptoms, anxiety, depressed, emotional problems, headache, numbness, paresthesia, pre-existing deficit, seizure, tingling, tremors, weakness, other Endocrine: Denies: no symptoms, excessive sweating, flushing, intolerance to cold, intolerance to heat, increased hunger, increased thirst, increased urine, unexplained weight gain, unexplained weight loss, other Hematologic/Lymphatic: Denies: no symptoms, anemia, easy bleeding, easy bruising, adenopathy, other Allergies: Coded Allergies: No Known Allergies (Verified , 08/23/06) Subjective 08/27: is on zosyn as per id, ivl was placed this am Objective Objective Current Medications Medications (Trade) Dose Ordered Sig/Gabriele Route PRN Reason Start Time Stop Time Status Last Admin Dose Admin Acetaminophen (Tylenol) 650 mg Q4H PRN ORAL Mild Pain (Pain Scale 1-3) 08/23/18 17:00 09/22/18 16:59 Acetaminophen/ Hydrocodone Bitart ([place] 5/325) 1 tab Q4H PRN ORAL PAIN 4-10 08/23/18 17:00 08/30/18 16:59 Amlodipine Besylate (Norvasc) 10 mg DAILY ORAL 08/24/18 09:00 09/23/18 08:59 08/27/18 08:23 Atorvastatin Calcium (Lipitor) 40 mg BEDTIME ORAL 08/23/18 21:00 09/22/18 20:59 08/26/18 21:36 Bacitracin (Bacitracin 15gm tube) 1 applic PRN TOPIC 08/25/18 21:30 09/23/18 21:29 08/26/18 16:24 Bisacodyl (Dulcolax) 10 mg HSPRN PRN RECTAL Constipation 08/23/18 17:00 09/22/18 16:59 Carvedilol (Coreg) 3.125 mg EVERY 12 HOURS ORAL 08/23/18 21:00 09/22/18 20:59 08/27/18 08:23 Chlorhexidine Gluconate (Cassia-Hex 2%) 1 applic DAILY@2000 TOPIC 08/26/18 20:00 09/25/18 19:59 Clopidogrel Bisulfate (Plavix) 75 mg DAILY ORAL 08/24/18 09:00 09/23/18 08:59 08/27/18 08:23 Dextrose (Dextrose 50%) 25 ml Q30M PRN IV Hypoglycemia 08/23/18 17:00 09/22/18 16:59 Dextrose (Dextrose 50%) 50 ml Q30M PRN IV Hypoglycemia 08/23/18 17:00 09/22/18 16:59 Diphenhydramine HCl (Benadryl) 25 mg Q6H PRN ORAL Itching/Pruritis 08/23/18 17:00 09/22/18 16:59 08/26/18 21:35 Docusate Sodium (Colace) 100 mg TID ORAL 08/24/18 09:00 09/22/18 20:59 08/27/18 08:22 Gabapentin (Neurontin) 300 mg BID ORAL 08/23/18 18:00 09/22/18 17:59 08/27/18 08:23 Haloperidol Lactate (Haldol) 5 mg Q6H PRN IM Agitation 08/24/18 00:15 09/23/18 00:14 08/26/18 21:36 Hydralazine HCl (Apresoline) 25 mg Q4H PRN ORAL SBP > 160mmHg 08/23/18 19:30 09/22/18 16:59 08/27/18 05:57 Ipratropium [place] (Atrovent) 500 mcg Q6H PRN HHN Shortness of Breath 08/23/18 17:00 08/28/18 16:59 Levetiracetam (Keppra) 1,000 mg Q12HR ORAL 08/23/18 18:00 09/22/18 17:59 08/27/18 08:22 Levothyroxine Sodium (Synthroid) 50 mcg DAILY@0630 ORAL 08/24/18 06:30 09/23/18 06:29 08/27/18 05:57 Lorazepam (Ativan 2mg/ml 1ml) 0.5 mg Q4H PRN IV For Anxiety 08/23/18 17:00 08/30/18 16:59 08/27/18 06:46 Ondansetron HCl (Zofran) 4 mg Q6H PRN IVP Nausea & Vomiting 08/23/18 17:00 09/22/18 16:59 Piperacillin Sod/ Tazobactam Sod 2.25 gm/Dextrose 55 ml @ 110 mls/hr Q8HR IVPB 08/26/18 22:00 08/31/18 21:59 08/27/18 05:57 Polyethylene Glycol (Miralax) 17 gm HSPRN PRN ORAL Constipation 08/23/18 21:00 09/22/18 20:59 Quetiapine Fumarate (SEROquel) 400 mg QHS ORAL 08/23/18 21:00 09/22/18 20:59 08/26/18 21:35 Sevelamer Carbonate (Renvela) 1,600 mg TID ORAL 08/25/18 09:00 09/23/18 08:59 08/27/18 08:23 Vancomycin HCl (Vanco rx to dose) 1 ea DAILY PRN MISC Per rx protocol 08/23/18 18:00 09/22/18 17:59 Vancomycin HCl 1 gm/Dextrose 275 ml @ 183.708 mls/hr ONCE ONCE IVPB 08/28/18 09:00 08/28/18 10:29 Vitamin B Complex/ Vit C/Folic Acid (Nephrovite) 1 tab DAILY ORAL 08/24/18 09:00 09/23/18 08:59 08/27/18 08:22 Last 24 Hour Vital Signs Date Time Temp Pulse Resp B/P (MAP) Pulse Ox O2 Delivery O2 Flow Rate FiO2 08/27/18 08:23 68 172/77 08/27/18 08:23 68 172/77 08/27/18 08:00 97.3 68 20 172/77 (108) 92 08/27/18 05:57 168/74 08/27/18 04:00 97.3 67 24 160/71 (100) 95 08/27/18 01:56 168/74 08/27/18 00:00 98.0 68 24 168/74 (105) 92 08/26/18 21:36 73 168/79 08/26/18 21:00 Room Air 08/26/18 20:00 98.6 74 24 166/67 (100) 95 08/26/18 18:49 73 168/79 (108) 08/26/18 17:59 70 16 191/75 (113) 93 08/26/18 17:52 191/75 08/26/18 16:00 97.8 73 19 196/80 (118) 95 08/26/18 12:00 97.9 78 18 138/70 (92) 98 08/26/18 09:35 73 144/68 08/26/18 09:34 73 144/68 08/26/18 09:00 Room Air 08/26/18 08:00 98.6 73 18 144/68 (93) 98 08/26/18 04:00 98.4 68 18 140/59 (86) 97 08/26/18 02:25 Room Air 08/26/18 01:21 186/78 08/26/18 00:40 98.2 68 16 186/78 (114) 94 08/25/18 21:00 Room Air 08/25/18 20:45 173/63 08/25/18 20:45 83 173/63 08/25/18 20:00 98.1 83 18 173/63 (99) 94 08/25/18 16:00 97.7 78 20 129/62 (84) 94 08/25/18 12:00 97.8 82 20 135/87 (103) 95 Intake and Output 08/26/18 08/27/18 19:00 07:00 Intake Total 55 ml Output Total 2000 ml Balance -2000 ml 55 ml IV Total 55 ml Output Hemodialysis UF 2000 ml # Voids 4 Labs Test 08/24/18 16:40 08/25/18 15:35 08/26/18 17:20 08/27/18 07:00 White Blood Count 5.4 K/UL (4.8-10.8) 5.2 K/UL (4.8-10.8) 5.0 K/UL (4.8-10.8) Red Blood Count 2.51 M/UL (4.20-5.40) 2.45 M/UL (4.20-5.40) 2.55 M/UL (4.20-5.40) Hemoglobin 7.6 G/DL (12.0-16.0) 7.6 G/DL (12.0-16.0) 7.7 G/DL (12.0-16.0) Hematocrit 23.1 % (37.0-47.0) 22.1 % (37.0-47.0) 24.2 % (37.0-47.0) Mean Corpuscular Volume 92 FL (80-99) 90 FL (80-99) 95 FL (80-99) Mean Corpuscular Hemoglobin 30.3 PG (27.0-31.0) 31.0 PG (27.0-31.0) 30.2 PG (27.0-31.0) Mean Corpuscular Hemoglobin Concent 32.9 G/DL (32.0-36.0) 34.4 G/DL (32.0-36.0) 31.9 G/DL (32.0-36.0) Red Cell Distribution Width 13.9 % (11.6-14.8) 13.6 % (11.6-14.8) 14.4 % (11.6-14.8) Platelet Count 172 K/UL (150-450) 155 K/UL (150-450) 143 K/UL (150-450) Mean Platelet Volume 6.6 FL (6.5-10.1) 7.4 FL (6.5-10.1) 7.3 FL (6.5-10.1) Neutrophils (%) (Auto) 74.7 % (45.0-75.0) % (45.0-75.0) % (45.0-75.0) Lymphocytes (%) (Auto) 13.0 % (20.0-45.0) % (20.0-45.0) % (20.0-45.0) Monocytes (%) (Auto) 7.9 % (1.0-10.0) % (1.0-10.0) % (1.0-10.0) Eosinophils (%) (Auto) 2.4 % (0.0-3.0) % (0.0-3.0) % (0.0-3.0) Basophils (%) (Auto) 2.0 % (0.0-2.0) % (0.0-2.0) % (0.0-2.0) Sodium Level 138 MMOL/L (136-145) 139 MMOL/L (136-145) 138 MMOL/L (136-145) Potassium Level 4.2 MMOL/L (3.5-5.1) 4.8 MMOL/L (3.5-5.1) 4.5 MMOL/L (3.5-5.1) Chloride Level 99 MMOL/L (98-107) 98 MMOL/L (98-107) 99 MMOL/L (98-107) Carbon Dioxide Level 23 MMOL/L (21-32) 26 MMOL/L (21-32) 22 MMOL/L (21-32) Anion Gap 16 mmol/L (5-15) 15 mmol/L (5-15) 17 mmol/L (5-15) Blood Urea Nitrogen 57 mg/dL (7-18) 57 mg/dL (7-18) 42 mg/dL (7-18) Creatinine 8.0 MG/DL (0.55-1.30) 8.6 MG/DL (0.55-1.30) 7.9 MG/DL (0.55-1.30) Estimat Glomerular Filtration Rate 5.2 mL/min (>60) 4.7 mL/min (>60) 5.3 mL/min (>60) Glucose Level 84 MG/DL (74-106) 101 MG/DL (74-106) 87 MG/DL (74-106) Hemoglobin A1c 5.0 % (4.3-6.0) Uric Acid 4.4 MG/DL (2.6-7.2) Calcium Level 8.8 MG/DL (8.5-10.1) 8.8 MG/DL (8.5-10.1) 9.0 MG/DL (8.5-10.1) Phosphorus Level 7.1 MG/DL (2.5-4.9) Magnesium Level 1.9 MG/DL (1.8-2.4) Iron Level 60 ug/dL (50-175) Total Iron Binding Capacity 150 ug/dL (250-450) Percent Iron Saturation 40 % (15-50) Unsaturated Iron Binding 90 ug/dL (112-346) Ferritin 543 NG/ML (8-388) Total Bilirubin 0.6 MG/DL (0.2-1.0) 0.6 MG/DL (0.2-1.0) Gamma Glutamyl Transpeptidase 30 U/L (5-85) Aspartate Amino Transf (AST/SGOT) 23 U/L (15-37) 21 U/L (15-37) Alanine Aminotransferase (ALT/SGPT) 18 U/L (12-78) 15 U/L (12-78) Alkaline Phosphatase 89 U/L (46-116) 86 U/L (46-116) C-Reactive Protein, Quantitative 4.9 mg/dL (0.00-0.90) Pro-B-Type Natriuretic Peptide > 41968 pg/mL (0-125) Total Protein 6.7 G/DL (6.4-8.2) 6.6 G/DL (6.4-8.2) Albumin 2.6 G/DL (3.4-5.0) 2.4 G/DL (3.4-5.0) Globulin 4.1 g/dL 4.2 g/dL Albumin/Globulin Ratio 0.6 (1.0-2.7) 0.6 (1.0-2.7) Triglycerides Level 87 MG/DL (30-150) Cholesterol Level 123 MG/DL (< 200) LDL Cholesterol 65 mg/dL (<100) HDL Cholesterol 42 MG/DL (40-60) Cholesterol/HDL Ratio 2.9 (3.3-4.4) Vitamin B12 Level 505 PG/ML (193-986) Folate 13.9 NG/ML (8.6-58.9) Thyroid Stimulating Hormone (TSH) 3.490 uiU/mL (0.358-3.740) Hepatitis B Surface Antigen Negative (NEGATIVE) Random Vancomycin Level 12.6 ug/mL 21.5 ug/mL 20.7 ug/mL Height (Feet): 5 Height (Inches): 6.00 Weight (Pounds): 200 Objective General: no apparent distress, confused Head: normocephalic, atraumatic Eyes: bilateral eye PERRL ENT: dry mucus membranes Neck: supple Respiratory: no retraction,diminished bilaterally CV: regular rate, rhythm GI: non tender, soft MSK: other - Significant edema with erythema both lower extremities, multiple abrasions in the upper extremity Neurologic: responsive - To physical and verbal stimuli, however patient appears confused Skin: other - As above Lymphatic: no adenopathy Odilon Min MD Aug 27, 2018 09:06
--- NOTE | 2018-08-27 09:10 | NUR ---
NURSE NOTES: DR COLLIER AT BEDSIDE ANS MADE AWARE OF HGB 7.7 TODAY, NO NEW ORDERS. MADE AWARE OF ELEVATED BP THROUGHOUT THE NIGHT. Addendum: 08/27/18 at 0912 by LYNNE HUNT RN RN DR COLLIER MADE AWARE PT IS SEDATED AND UNABLE TO TAKE SCHEDULED PO BP MEDS.
--- NOTE | 2018-08-27 10:58 | NUR ---
RD ASSESSMENT & RECOMMENDATIONS SEE CARE ACTIVITY FOR COMPLETE ASSESSMENT DAILY ESTIMATED NEEDS: Needs based on ESRD on HD, obese 67kg Adj 25-30 kcals/kg 3762-6601 total kcals 1.2-1.8 g protein/kg 80-121 g total protein Fluid per MD, on HD NUTRITION DIAGNOSIS: *Increased protein needs r/t renal dysfunction, as evidenced by pt with esrd on HD. *(CURRENT DIET: Renal / CCHO MED) PO DIET RECOMMENDATIONS-->> RENAL DIET ADDITIONAL RECOMMENDATIONS: * Calibrated bedscale wt post HD/ standing wt preferred * Nepro 1 tetra shad qdaily w/ variable po intake * Monitor Bg, need for niss/ added CCHO diet * MARYELLEN BID for wound healing Pt on nephrovite
[2018-08-27] MEDS ORDERED: Enalaprilat 2.5mg/2ml Inj IV PRN ×3 (12:15→13:30)
--- NOTE | 2018-08-27 12:49 | Nephrology Progress Note ---
Assessment/Plan Problem List: (1) ESRD (end stage renal disease) on dialysis (2) Anemia in chronic renal disease (3) Schizoaffective disorder, bipolar type (4) Diabetes mellitus, type II (5) Hypothyroidism Assessment - Cellulitis both LE - Metabolic Encephalopathy - End-stage renal disease, on hemodialysis. fistula right arm - Anemia of chronic kidney disease. - HTN / Pulmonary HTN - Diabetes type 2. -HypoThyroidism Others - Morbid obesity. - H/O Colon Cancer - H/O Hep C - H/O Depression and Bipolar disease - Psych disease uncoaporative --Bilateral leg numbness --diabetic neuropathy --L5-S1 disc protrusion Plan HD done 08/24 next 08/26 and then 08/28 skin care / Antibiotics per consultants Subjective ROS Limited/Unobtainable: No Constitutional: Reports: malaise Objective Objective Last 24 Hour Vital Signs Date Time Temp Pulse Resp B/P (MAP) Pulse Ox O2 Delivery O2 Flow Rate FiO2 08/27/18 11:19 70 200/80 (120) 08/27/18 09:00 Room Air 08/27/18 08:00 97.3 68 20 172/77 (108) 92 08/27/18 05:57 168/74 08/27/18 04:00 97.3 67 24 160/71 (100) 95 08/27/18 01:56 168/74 08/27/18 00:00 98.0 68 24 168/74 (105) 92 08/26/18 21:36 73 168/79 08/26/18 21:00 Room Air 08/26/18 20:00 98.6 74 24 166/67 (100) 95 08/26/18 18:49 73 168/79 (108) 08/26/18 17:59 70 16 191/75 (113) 93 08/26/18 17:52 191/75 08/26/18 16:00 97.8 73 19 196/80 (118) 95 Intake and Output 08/26/18 08/27/18 19:00 07:00 Intake Total 55 ml Output Total 2000 ml Balance -2000 ml 55 ml IV Total 55 ml Output Hemodialysis UF 2000 ml # Voids 4 Laboratory Tests 08/26/18 17:20: Random Vancomycin Level 21.5 08/27/18 07:00: Random Vancomycin Level 20.7, White Blood Count 5.0, Red Blood Count 2.55L, Hemoglobin 7.7L, Hematocrit 24.2L, Mean Corpuscular Volume 95, Mean Corpuscular Hemoglobin 30.2, Mean Corpuscular Hemoglobin Concent 31.9L, Red Cell Distribution Width 14.4, Platelet Count 143L, Mean Platelet Volume 7.3, Neutrophils (%) (Auto) , Lymphocytes (%) (Auto) , Monocytes (%) (Auto) , Eosinophils (%) (Auto) , Basophils (%) (Auto) , Differential Total Cells Counted 100, Neutrophils % (Manual) 65, Lymphocytes % (Manual) 17L, Monocytes % (Manual) 7, Eosinophils % (Manual) 8H, Basophils % (Manual) 3H, Band Neutrophils 0, Platelet Estimate DecreasedL, Platelet Morphology Normal, Hypochromasia 3+, Anisocytosis 1+, Sodium Level 138, Potassium Level 4.5, Chloride Level 99, Carbon Dioxide Level 22, Anion Gap 17H, Blood Urea Nitrogen 42H, Creatinine 7.9H, Estimat Glomerular Filtration Rate 5.3, Glucose Level 87, Calcium Level 9.0, Total Bilirubin 0.6, Aspartate Amino Transf (AST/SGOT) 21, Alanine Aminotransferase (ALT/SGPT) 15, Alkaline Phosphatase 86, Total Protein 6.6, Albumin 2.4L, Globulin 4.2, Albumin/Globulin Ratio 0.6L Height (Feet): 5 Height (Inches): 6.00 Weight (Pounds): 200 General Appearance: no apparent distress Objective no change Eamon Solis MD Aug 27, 2018 12:49
--- NOTE | 2018-08-27 15:43 | NUR ---
NURSE NOTES:WOUND CARE FOLLOW-UP NOTES: Pt noted to scattered dry scabbed lesions without bordering erythema bilat upper ext.including digits of both hands. Numerous blood blisters that are rigid noted to R wrist and digits of R hand. Pt also noted to have fewer dry scabbed lesions lower ext.dry scabbed lesions also noted to Metatarsals both feet..Scabbed lesions both feet swabbed with Betadine. Dry scabbed lesions both upper ext and hands left open to air.
--- NOTE | 2018-08-27 15:52 | Surgery Progress Note ---
Surgery Progress Note Subjective Additional Comments no acute events. resting comfortable. restrained for safety wounds stable. no blisters hard scabs have been stable since she has not been able to pick at scabs Objective Last 24 Hour Vital Signs Date Time Temp Pulse Resp B/P (MAP) Pulse Ox O2 Delivery O2 Flow Rate FiO2 08/27/18 13:31 165/81 08/27/18 12:00 98.0 67 20 165/81 (109) 08/27/18 11:19 70 200/80 (120) 08/27/18 09:00 Room Air 08/27/18 08:00 97.3 68 20 172/77 (108) 92 08/27/18 05:57 168/74 08/27/18 04:00 97.3 67 24 160/71 (100) 95 08/27/18 01:56 168/74 08/27/18 00:00 98.0 68 24 168/74 (105) 92 08/26/18 21:36 73 168/79 08/26/18 21:00 Room Air 08/26/18 20:00 98.6 74 24 166/67 (100) 95 08/26/18 18:49 73 168/79 (108) 08/26/18 17:59 70 16 191/75 (113) 93 08/26/18 17:52 191/75 08/26/18 16:00 97.8 73 19 196/80 (118) 95 I&O Intake and Output 08/26/18 08/27/18 19:00 07:00 Intake Total 55 ml Output Total 2000 ml Balance -2000 ml 55 ml IV Total 55 ml Output Hemodialysis UF 2000 ml # Voids 4 Dressing: dry Wound: clean Cardiovascular: RSR Respiratory: clear Abdomen: soft, non-tender, present bowel sounds, other Extremities: no edema, no tenderness, no cyanosis, other Laboratory Tests Test 08/26/18 17:20 08/27/18 07:00 Random Vancomycin Level 21.5 ug/mL 20.7 ug/mL White Blood Count 5.0 K/UL (4.8-10.8) Red Blood Count 2.55 M/UL (4.20-5.40) L Hemoglobin 7.7 G/DL (12.0-16.0) L Hematocrit 24.2 % (37.0-47.0) L Mean Corpuscular Volume 95 FL (80-99) Mean Corpuscular Hemoglobin 30.2 PG (27.0-31.0) Mean Corpuscular Hemoglobin Concent 31.9 G/DL (32.0-36.0) L Red Cell Distribution Width 14.4 % (11.6-14.8) Platelet Count 143 K/UL (150-450) L Mean Platelet Volume 7.3 FL (6.5-10.1) Neutrophils (%) (Auto) % (45.0-75.0) Lymphocytes (%) (Auto) % (20.0-45.0) Monocytes (%) (Auto) % (1.0-10.0) Eosinophils (%) (Auto) % (0.0-3.0) Basophils (%) (Auto) % (0.0-2.0) Differential Total Cells Counted 100 Neutrophils % (Manual) 65 % (45-75) Lymphocytes % (Manual) 17 % (20-45) L Monocytes % (Manual) 7 % (1-10) Eosinophils % (Manual) 8 % (0-3) H Basophils % (Manual) 3 % (0-2) H Band Neutrophils 0 % (0-8) Platelet Estimate Decreased L Platelet Morphology Normal Hypochromasia 3+ Anisocytosis 1+ Sodium Level 138 MMOL/L (136-145) Potassium Level 4.5 MMOL/L (3.5-5.1) Chloride Level 99 MMOL/L (98-107) Carbon Dioxide Level 22 MMOL/L (21-32) Anion Gap 17 mmol/L (5-15) H Blood Urea Nitrogen 42 mg/dL (7-18) H Creatinine 7.9 MG/DL (0.55-1.30) H Estimat Glomerular Filtration Rate 5.3 mL/min (>60) Glucose Level 87 MG/DL (74-106) Calcium Level 9.0 MG/DL (8.5-10.1) Total Bilirubin 0.6 MG/DL (0.2-1.0) Aspartate Amino Transf (AST/SGOT) 21 U/L (15-37) Alanine Aminotransferase (ALT/SGPT) 15 U/L (12-78) Alkaline Phosphatase 86 U/L (46-116) Total Protein 6.6 G/DL (6.4-8.2) Albumin 2.4 G/DL (3.4-5.0) L Globulin 4.2 g/dL Albumin/Globulin Ratio 0.6 (1.0-2.7) L Plan Problems: (1) Schizoaffective disorder, bipolar type (2) Lower extremity cellulitis Assessment & Plan: 57-year-old female with multiple medical comorbidities presenting from a jail On admission patient identified to have multiple wounds Etiology of wounds potentially from trauma Patient a poor historian Patient noted to have multiple scabs on her upper and lower extremities Patient does have some distal ischemia in the toes No acute surgical intervention patient denies itching but continues to scratch wounds and open scabs distribution of wounds do not seem to be rash or skin disorder. mainly trauma related patient has blood blister noted on her right hand that she picks at causing drainage. will hold on skin biopsy for now will need to reinforce to patient not to pick at wounds, remove scabs, or deep scratching. appreciate psych input apply bacitracin ointment to scabs and scars on upper and lower extremity okay to wrap bilateral upper extremities with kerlix wrap to prevent patient from picking scabs and see if able to heal old traumatic wounds Offload pressure Turn every 2 hours We will monitor wounds while in hospital to ensure healing Nutritional optimization Thank you IV ABX (3) MDD (major depressive disorder), recurrent episode, moderate (4) Symptomatic anemia (5) Acute metabolic encephalopathy (6) CHF (congestive heart failure) (7) Bradycardia (8) Diabetes mellitus, type II (9) Hypothyroidism (10) Costochondritis (11) GERD (gastroesophageal reflux disease) (12) HTN (hypertension) (13) Anemia in chronic renal disease (14) Cellulitis of arm, right (15) Clotted renal dialysis arteriovenous graft (16) ESRD (end stage renal disease) on dialysis (17) Seizure disorder (18) Non-compliance with renal dialysis (19) Pulmonary edema (20) Pneumonia (21) History of colon cancer Vic Wise Aug 27, 2018 15:52
[2018-08-27] MEDS: HydrALAZINE 50mg tab ORAL PRN (17:21)
[2018-08-27] MEDS: Bacitracin Oint 15gm Tube TOPIC SCH (18:00)
--- NOTE | 2018-08-27 18:00 | Progress Note ---
DATE: 08/27/2018 SUBJECTIVE: The patient is presenting with waxing and waning consciousness, continues to be drowsy, episodes of agitation, attempting to come out of bed, not able to follow directions. MENTAL STATUS EXAMINATION: The patient is arousable knows her name. Mood is agitated. Affect is flat. Thought process, there is a paucity of thought content. Thought content, no suicidal or homicidal ideations. ASSESSMENT: 1. Encephalopathy. 2. Schizoaffective disorder. PLAN: We will continue current medications. Blanka Beckett M.D. DR: Shraddha JOB#: [id number] CC: VIKAS
--- NOTE | 2018-08-27 19:30 | NUR ---
NURSE NOTES: Received a report from Rip Edgar RN. Pt is in stable condition. Sleeping comfortably. On room air. No c/o pain/discomfort. IV site is patent and intact. AV shunt is on the R upper arm + bruit and thrill. B soft wrist restraints on. Bed in lowest position. Bed alarm is on. Call light within reach. Will continue to monitor.
--- NOTE | 2018-08-27 19:31 | NUR ---
HAND-OFF: Report given to Karma ISLAS RN.
[2018-08-27] MEDS: Dyna-Hex 2% Top Sol 2oz TOPIC SCH (22:17)
[2018-08-27] MEDS: QUEtiapine 200mg tab ORAL SCH (22:18)
[2018-08-27] MEDS: Atorvastatin 20mg tab ORAL SCH (22:18)
--- NOTE | 2018-08-27 22:37 | General Progress Note ---
Assessment/Plan Assessment/Plan: #Diffuse wounds on all extremities - improving - Appreciate surgery consultation and noted recommendations: apply bacitracin ointment to scabs and scars on upper and lower extremity okay to wrap bilateral upper extremities with kerlix wrap to prevent patient from picking scabs and see if able to heal old traumatic wounds - Antibiotics by ID service. Patient has poor IV access, likely transition to PO abx in AM, if not PICC will be needed #Acute on chronic anemia #Anemia of ESRD #ESRD -Patient may benefit from PRBC transfusion if Hb <7 -Appreciate nephrology consultation. -monitor CBC and BMP -REFUSING HD as outpatient. - HD per renal #Chronic diastolic CHF #HTN #Hyperlipidemia -fluid management via HD, Planned for today 08/24 -continue minoxidil, clonidine, Coreg, Norvasc and Lipitor -Cont IV meds PRN #Type 2 DM #Obesity -continue Januvia -lispro SS #Epilepsy -continue Keppra #Bipolar and anxiety -continue Seroquel -psych consult appreciated #Hypothyroidism -continue levothyroxine # Cellulitis of upper extremities - Zosyn and Vancomycin started. Anticipate IV course. - Monitor response to therapy - Surgery consult appreciated. - supportive care # Disposition - Patient is a resident at [facility] PPx SCD Full Code I spent 70 minutes on this patient's case, and 35 minutes was dedicated to counseling and/or care coordination. Subjective Date patient seen: Aug 27, 2018 Allergies: Coded Allergies: No Known Allergies (Verified , 08/23/06) Subjective No acute overnight events, remain on restraints, will try to DC. wounds healing well, pt refusing PO meds, BP elevated requiring IV antihypertensives Objective Last 24 Hour Vital Signs Date Time Temp Pulse Resp B/P (MAP) Pulse Ox O2 Delivery O2 Flow Rate FiO2 08/27/18 22:18 69 174/62 08/27/18 20:00 97.9 69 20 174/62 (99) 94 08/27/18 17:21 169/72 08/27/18 16:00 97.9 62 20 169/72 (104) 92 08/27/18 13:31 165/81 08/27/18 12:00 98.0 67 20 165/81 (109) 08/27/18 11:19 70 200/80 (120) 08/27/18 09:00 Room Air 08/27/18 08:00 97.3 68 20 172/77 (108) 92 08/27/18 05:57 168/74 08/27/18 04:00 97.3 67 24 160/71 (100) 95 08/27/18 01:56 168/74 08/27/18 00:00 98.0 68 24 168/74 (105) 92 Intake and Output 08/26/18 08/27/18 18:59 06:59 Intake Total 55 ml Output Total 2000 ml Balance -2000 ml 55 ml IV Total 55 ml Output Hemodialysis UF 2000 ml # Voids 4 Laboratory Tests 08/27/18 07:00: White Blood Count 5.0, Red Blood Count 2.55L, Hemoglobin 7.7L, Hematocrit 24.2L , Mean Corpuscular Volume 95, Mean Corpuscular Hemoglobin 30.2, Mean Corpuscular Hemoglobin Concent 31.9L, Red Cell Distribution Width 14.4, Platelet Count 143L, Mean Platelet Volume 7.3, Neutrophils (%) (Auto) , Lymphocytes (%) (Auto) , Monocytes (%) (Auto) , Eosinophils (%) (Auto) , Basophils (%) (Auto) , Differential Total Cells Counted 100, Neutrophils % ( Manual) 65, Lymphocytes % (Manual) 17L, Monocytes % (Manual) 7, Eosinophils % ( Manual) 8H, Basophils % (Manual) 3H, Band Neutrophils 0, Platelet Estimate DecreasedL, Platelet Morphology Normal, Hypochromasia 3+, Anisocytosis 1+, Sodium Level 138, Potassium Level 4.5, Chloride Level 99, Carbon Dioxide Level 22, Anion Gap 17H, Blood Urea Nitrogen 42H, Creatinine 7.9H, Estimat Glomerular Filtration Rate 5.3, Glucose Level 87, Calcium Level 9.0, Total Bilirubin 0.6, Aspartate Amino Transf (AST/SGOT) 21, Alanine Aminotransferase (ALT/SGPT) 15, Alkaline Phosphatase 86, Total Protein 6.6, Albumin 2.4L, Globulin 4.2, Albumin/ Globulin Ratio 0.6L, Random Vancomycin Level 20.7 Height (Feet): 5 Height (Inches): 6.00 Weight (Pounds): 200 Lupe Escalona MD Aug 27, 2018 22:37
--- NOTE | 2018-08-27 23:04 | NUR ---
NURSE NOTES: Called Dr. Coronado for breakthrough pain. Awaiting for call back. Charge Nurse Teetee made aware. Addendum: 08/28/18 at 0317 by BABAR MOCK RN Incorrect patient
[2018-08-28] VITALS (8 sets, daily range): BP systolic 144–214; BP diastolic 57–93
[2018-08-28] MEDS: HydrALAZINE 50mg tab ORAL PRN ×2 (00:38→21:58)
[2018-08-28] MEDS: LORazepam Inj 2mg/ml 1ml IV PRN ×2 (02:39→22:07)
--- NOTE | 2018-08-28 05:08 | NUR ---
HAND-OFF: Report given to CHEPE Hughes.
--- NOTE | 2018-08-28 06:10 | NUR ---
NURSE NOTES: RECEIVED PATIENT IN BED, AWAKE. IV IN PLACE. NO S/S DISTRESS OR PAIN NOTED. WAS ENDORSED BY PREVIOUS NURSE, BABAR Coronel TO CALL [facility] TO MAKE SURE PATIENT WILL GET DIALYSIS IN THE AM. CALLED [facility], AWAITING RESPONSE. CHARGE NURSE AWARE.
[2018-08-28] MEDS: Piperacillin/Tazobactam 2.25 GM in D5W 55 ML IVPB SCH ×3 (06:19→21:06)
--- NOTE | 2018-08-28 07:30 | NUR ---
NURSE NOTES: Received pt from CHEPE POTTER. Pt is confused x2. pt is in RA, No SOB or acute respiratory distress noted. pt has intact iv access CATALINA 24g SL. Pt has blood blister all over body. a DOCUMENT ADVISOR is feeding pt. All needs attended, bed is locked and is in the lowest position. call light within easy reach. will continue to monitor.
--- NOTE | 2018-08-28 07:49 | NUR ---
HAND-OFF: Report given to Linda Waldron RN.
[2018-08-28] MEDS ORDERED: Vancomycin 1gm/D5W 275ml IVPB ONE ×2 (09:00)
[2018-08-28] MEDS: Docusate 100mg cap ORAL SCH ×3 (09:44→17:10)
[2018-08-28] MEDS: Nephrovite tab (Rena-Vite) ORAL SCH (09:44)
--- NOTE | 2018-08-28 11:23 | Nephrology Progress Note ---
Assessment/Plan Problem List: (1) ESRD (end stage renal disease) on dialysis (2) Anemia in chronic renal disease (3) Schizoaffective disorder, bipolar type (4) Diabetes mellitus, type II (5) Hypothyroidism Assessment - Cellulitis both LE - Metabolic Encephalopathy - End-stage renal disease, on hemodialysis. fistula right arm - Anemia of chronic kidney disease. - HTN / Pulmonary HTN - Diabetes type 2. -HypoThyroidism Others - Morbid obesity. - H/O Colon Cancer - H/O Hep C - H/O Depression and Bipolar disease - Psych disease uncoaporative --Bilateral leg numbness --diabetic neuropathy --L5-S1 disc protrusion Plan HD done 08/24 next 08/26 and then 08/28 skin care / Antibiotics per consultants Subjective ROS Limited/Unobtainable: No Constitutional: Reports: malaise, weakness Objective Objective Last 24 Hour Vital Signs Date Time Temp Pulse Resp B/P (MAP) Pulse Ox O2 Delivery O2 Flow Rate FiO2 08/28/18 09:45 74 168/71 08/28/18 09:45 74 168/71 08/28/18 09:00 Room Air 08/28/18 08:00 98.0 74 20 168/71 (103) 95 08/28/18 04:00 98.6 65 18 144/57 (86) 95 08/28/18 00:38 202/78 08/28/18 00:00 97.8 72 18 202/78 (119) 95 08/27/18 22:18 69 174/62 08/27/18 21:00 Room Air 08/27/18 20:00 97.9 69 20 174/62 (99) 94 08/27/18 17:21 169/72 08/27/18 16:00 97.9 62 20 169/72 (104) 92 08/27/18 13:31 165/81 08/27/18 12:00 98.0 67 20 165/81 (109) Intake and Output 08/27/18 08/28/18 19:00 07:00 Intake Total 295 ml 55 ml Balance 295 ml 55 ml Intake Oral 240 ml IV Total 55 ml 55 ml # Voids 2 2 Current Medications Medications (Trade) Dose Ordered Sig/Gabriele Route PRN Reason Start Time Stop Time Status Last Admin Dose Admin Acetaminophen (Tylenol) 650 mg Q4H PRN ORAL Mild Pain (Pain Scale 1-3) 08/23/18 17:00 09/22/18 16:59 Acetaminophen/ Hydrocodone Bitart ([place] 5/325) 1 tab Q4H PRN ORAL PAIN 4-10 08/23/18 17:00 08/30/18 16:59 Amlodipine Besylate (Norvasc) 10 mg DAILY ORAL 08/24/18 09:00 09/23/18 08:59 08/26/18 09:35 Atorvastatin Calcium (Lipitor) 40 mg BEDTIME ORAL 08/23/18 21:00 09/22/18 20:59 08/27/18 22:18 Bacitracin (Bacitracin 15gm tube) 1 applic PRN TOPIC 08/25/18 21:30 09/23/18 21:29 08/27/18 18:00 Bisacodyl (Dulcolax) 10 mg HSPRN PRN RECTAL Constipation 08/23/18 17:00 09/22/18 16:59 Carvedilol (Coreg) 3.125 mg EVERY 12 HOURS ORAL 08/23/18 21:00 09/22/18 20:59 08/27/18 22:18 Chlorhexidine Gluconate (Cassia-Hex 2%) 1 applic DAILY@2000 TOPIC 08/26/18 20:00 09/25/18 19:59 08/27/18 22:17 Clopidogrel Bisulfate (Plavix) 75 mg DAILY ORAL 08/24/18 09:00 09/23/18 08:59 08/28/18 09:44 Dextrose (Dextrose 50%) 25 ml Q30M PRN IV Hypoglycemia 08/23/18 17:00 09/22/18 16:59 Dextrose (Dextrose 50%) 50 ml Q30M PRN IV Hypoglycemia 08/23/18 17:00 09/22/18 16:59 Diphenhydramine HCl (Benadryl) 25 mg Q6H PRN ORAL Itching/Pruritis 08/23/18 17:00 09/22/18 16:59 08/26/18 21:35 Docusate Sodium (Colace) 100 mg TID ORAL 08/24/18 09:00 09/22/18 20:59 08/28/18 09:44 Enalaprilat (Vasotec) 1.25 mg Q6H PRN IV SBP>160 IF NOT TAKING PO 08/27/18 13:30 09/26/18 13:29 08/27/18 13:31 Gabapentin (Neurontin) 300 mg BID ORAL 08/23/18 18:00 09/22/18 17:59 08/28/18 09:44 Haloperidol Lactate (Haldol) 5 mg Q6H PRN IM Agitation 08/24/18 00:15 09/23/18 00:14 08/26/18 21:36 Hydralazine HCl (Apresoline) 50 mg Q4H PRN ORAL SBP > 160mmHg 08/27/18 12:53 09/22/18 12:52 08/28/18 00:38 Ipratropium [place] (Atrovent) 500 mcg Q6H PRN HHN Shortness of Breath 08/23/18 17:00 08/28/18 16:59 Levetiracetam (Keppra) 1,000 mg Q12HR ORAL 08/23/18 18:00 09/22/18 17:59 08/28/18 09:44 Levothyroxine Sodium (Synthroid) 50 mcg DAILY@0630 ORAL 08/24/18 06:30 09/23/18 06:29 08/28/18 06:19 Lorazepam (Ativan 2mg/ml 1ml) 0.5 mg Q4H PRN IV For Anxiety 08/23/18 17:00 08/30/18 16:59 08/28/18 02:39 Ondansetron HCl (Zofran) 4 mg Q6H PRN IVP Nausea & Vomiting 08/23/18 17:00 09/22/18 16:59 Piperacillin Sod/ Tazobactam Sod 2.25 gm/Dextrose 55 ml @ 110 mls/hr Q8HR IVPB 08/26/18 22:00 08/31/18 21:59 08/28/18 06:19 Polyethylene Glycol (Miralax) 17 gm HSPRN PRN ORAL Constipation 08/23/18 21:00 09/22/18 20:59 Quetiapine Fumarate (SEROquel) 400 mg QHS ORAL 08/23/18 21:00 09/22/18 20:59 08/27/18 22:18 Sevelamer Carbonate (Renvela) 1,600 mg TID ORAL 08/25/18 09:00 09/23/18 08:59 08/28/18 09:45 Vancomycin HCl (Vanco rx to dose) 1 ea DAILY PRN MISC Per rx protocol 08/23/18 18:00 09/22/18 17:59 Vitamin B Complex/ Vit C/Folic Acid (Nephrovite) 1 tab DAILY ORAL 08/24/18 09:00 09/23/18 08:59 08/28/18 09:44 Height (Feet): 5 Height (Inches): 6.00 Weight (Pounds): 198 General Appearance: no apparent distress Objective no change Eamon Solis MD Aug 28, 2018 11:23
--- NOTE | 2018-08-28 12:58 | NUR ---
NURSE NOTES: HD nurse CRIS stated BP is high during dialysis 190/77 and asked for BP meds Dr maharaj notified and he answered no BP med during dialysis. will continue to monitor.
--- NOTE | 2018-08-28 13:30 | Surgery Progress Note ---
Surgery Progress Note Subjective Additional Comments no acute events comfortable stable. Objective Last 24 Hour Vital Signs Date Time Temp Pulse Resp B/P (MAP) Pulse Ox O2 Delivery O2 Flow Rate FiO2 08/28/18 12:00 98.6 80 19 155/83 (107) 96 08/28/18 09:45 74 168/71 08/28/18 09:45 74 168/71 08/28/18 09:00 Room Air 08/28/18 08:00 98.0 74 20 168/71 (103) 95 08/28/18 04:00 98.6 65 18 144/57 (86) 95 08/28/18 00:38 202/78 08/28/18 00:00 97.8 72 18 202/78 (119) 95 08/27/18 22:18 69 174/62 08/27/18 21:00 Room Air 08/27/18 20:00 97.9 69 20 174/62 (99) 94 08/27/18 17:21 169/72 08/27/18 16:00 97.9 62 20 169/72 (104) 92 08/27/18 13:31 165/81 I&O Intake and Output 08/27/18 08/28/18 19:00 07:00 Intake Total 295 ml 55 ml Balance 295 ml 55 ml Intake Oral 240 ml IV Total 55 ml 55 ml # Voids 2 2 Dressing: dry Wound: clean Cardiovascular: RSR Respiratory: clear Abdomen: soft, present bowel sounds, non-distended Extremities: no cyanosis Plan Problems: (1) Schizoaffective disorder, bipolar type (2) Lower extremity cellulitis Assessment & Plan: 57-year-old female with multiple medical comorbidities presenting from a alf On admission patient identified to have multiple wounds Etiology of wounds potentially from trauma Patient a poor historian Patient noted to have multiple scabs on her upper and lower extremities Patient does have some distal ischemia in the toes No acute surgical intervention patient denies itching but continues to scratch wounds and open scabs distribution of wounds do not seem to be rash or skin disorder. mainly trauma related patient has blood blister noted on her right hand that she picks at causing drainage. will hold on skin biopsy for now will need to reinforce to patient not to pick at wounds, remove scabs, or deep scratching. appreciate psych input apply bacitracin ointment to scabs and scars on upper and lower extremity okay to wrap bilateral upper extremities with kerlix wrap to prevent patient from picking scabs and see if able to heal old traumatic wounds Offload pressure Turn every 2 hours We will monitor wounds while in hospital to ensure healing Nutritional optimization Thank you IV ABX (3) MDD (major depressive disorder), recurrent episode, moderate (4) Symptomatic anemia (5) Acute metabolic encephalopathy (6) CHF (congestive heart failure) (7) Bradycardia (8) Diabetes mellitus, type II (9) Hypothyroidism (10) Costochondritis (11) GERD (gastroesophageal reflux disease) (12) HTN (hypertension) (13) Anemia in chronic renal disease (14) Cellulitis of arm, right (15) Clotted renal dialysis arteriovenous graft (16) ESRD (end stage renal disease) on dialysis (17) Seizure disorder (18) Non-compliance with renal dialysis (19) Pulmonary edema (20) Pneumonia (21) History of colon cancer Vic Wise Aug 28, 2018 13:30
--- NOTE | 2018-08-28 13:54 | NUR ---
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 98.6 HR 80 RR 19 B/P 168/71 RA 98% IS: VASOTEC IV ZOSYN IV KEPPRA IV NEURONTIN HD MED/SURG STATUS
--- NOTE | 2018-08-28 14:57 | Infectious Diseases Prog Note ---
Assessment/Plan Assessment/Plan ASSESSMENT AND PLAN: 1. bilateral UE/LE (leg/foot/arm/hand) possible infected wounds and cellulitis, necrosis/? gangrene noted - zosyn and vancomycin - day # 6 abx - consider transition to oral augmentin doxycycline for 4 days more if discharge patient - cellulitis clinically improved, wounds stable - surgery f/u - wound care per protocol - monitor labs 2. The patient has encephalopathy. 3. Renal failure. 4. Hemodialysis. 5. End-stage renal disease. 6. Hypothyroidism. Continue with thyroid supplementation. 7. Diabetes type 2. Blood sugar treatment per primary. 8. Hypertension. 9. Hyperlipidemia. 10. Congestive heart failure, hx of pna 11. Chronic obstructive pulmonary disease. 12. Cardiovascular disease. 13. Hypothyroidism. 14. Obesity. 15. Cerebrovascular accident and weakness. 16. Bipolar disease. 17. She has no known drug allergies. 18. Social history negative. 19. Family history noncontributory. 20. MAR was noted. 21. Case discussed with RN. 22. Continue treatment per primary consultants. 23. time spent 30 plus minutes Subjective Constitutional: Denies: fever HEENT: Denies: congestion Respiratory: Denies: shortness of breath Cardiovascular: Denies: chest pain Gastrointestinal/Abdominal: Denies: nausea, vomiting, diarrhea Genitourinary: Reports: other - no waller Neurologic: Denies: headache Psychiatric: Denies: depression Skin: Reports: other - rash/wounds stable Hematologic: Denies: bleeding Musculoskeletal: Denies: pain Allergies: Coded Allergies: No Known Allergies (Verified , 08/23/06) Objective Vital Signs Last 24 Hour Vital Signs Date Time Temp Pulse Resp B/P (MAP) Pulse Ox O2 Delivery O2 Flow Rate FiO2 08/28/18 12:00 98.6 80 19 155/83 (107) 96 08/28/18 09:45 74 168/71 08/28/18 09:45 74 168/71 08/28/18 09:00 Room Air 08/28/18 08:00 98.0 74 20 168/71 (103) 95 08/28/18 04:00 98.6 65 18 144/57 (86) 95 08/28/18 00:38 202/78 08/28/18 00:00 97.8 72 18 202/78 (119) 95 08/27/18 22:18 69 174/62 08/27/18 21:00 Room Air 08/27/18 20:00 97.9 69 20 174/62 (99) 94 08/27/18 17:21 169/72 08/27/18 16:00 97.9 62 20 169/72 (104) 92 Height (Feet): 5 Height (Inches): 6.00 Weight (Pounds): 198 General Appearance: no acute distress HEENT: normocephalic, atraumatic, anicteric, mucous membranes moist Respiratory/Chest: lungs clear, normal breath sounds, no respiratory distress, no accessory muscle use Cardiovascular: normal rate, regular rhythm, no gallop/murmur, no JVD Abdomen: normal bowel sounds, soft, non tender, no organomegaly, non distended Genitourinary: other - no waller Extremities: other - cellulitis resolved, wounds stable Skin: no rash 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 Findings: Pulmonary vascular congestion demonstrated with prominent vascularity especially in the hilar regions and cardiomegaly. Similar findings seen on the previous occasion. IMPRESSION: No change. CHF Microbiology Date/Time Source Procedure Growth Status 08/23/18 15:30 Blood Blood Culture - Preliminary NO GROWTH AFTER 4 DAYS Resulted Labs Test 08/25/18 15:35 08/26/18 17:20 08/27/18 07:00 White Blood Count 5.2 K/UL (4.8-10.8) 5.0 K/UL (4.8-10.8) Red Blood Count 2.45 M/UL (4.20-5.40) 2.55 M/UL (4.20-5.40) Hemoglobin 7.6 G/DL (12.0-16.0) 7.7 G/DL (12.0-16.0) Hematocrit 22.1 % (37.0-47.0) 24.2 % (37.0-47.0) Mean Corpuscular Volume 90 FL (80-99) 95 FL (80-99) Mean Corpuscular Hemoglobin 31.0 PG (27.0-31.0) 30.2 PG (27.0-31.0) Mean Corpuscular Hemoglobin Concent 34.4 G/DL (32.0-36.0) 31.9 G/DL (32.0-36.0) Red Cell Distribution Width 13.6 % (11.6-14.8) 14.4 % (11.6-14.8) Platelet Count 155 K/UL (150-450) 143 K/UL (150-450) Mean Platelet Volume 7.4 FL (6.5-10.1) 7.3 FL (6.5-10.1) Neutrophils (%) (Auto) % (45.0-75.0) % (45.0-75.0) Lymphocytes (%) (Auto) % (20.0-45.0) % (20.0-45.0) Monocytes (%) (Auto) % (1.0-10.0) % (1.0-10.0) Eosinophils (%) (Auto) % (0.0-3.0) % (0.0-3.0) Basophils (%) (Auto) % (0.0-2.0) % (0.0-2.0) Sodium Level 139 MMOL/L (136-145) 138 MMOL/L (136-145) Potassium Level 4.8 MMOL/L (3.5-5.1) 4.5 MMOL/L (3.5-5.1) Chloride Level 98 MMOL/L (98-107) 99 MMOL/L (98-107) Carbon Dioxide Level 26 MMOL/L (21-32) 22 MMOL/L (21-32) Anion Gap 15 mmol/L (5-15) 17 mmol/L (5-15) Blood Urea Nitrogen 57 mg/dL (7-18) 42 mg/dL (7-18) Creatinine 8.6 MG/DL (0.55-1.30) 7.9 MG/DL (0.55-1.30) Estimat Glomerular Filtration Rate 4.7 mL/min (>60) 5.3 mL/min (>60) Glucose Level 101 MG/DL (74-106) 87 MG/DL (74-106) Calcium Level 8.8 MG/DL (8.5-10.1) 9.0 MG/DL (8.5-10.1) Random Vancomycin Level 12.6 ug/mL 21.5 ug/mL 20.7 ug/mL Differential Total Cells Counted 100 Neutrophils % (Manual) 65 % (45-75) Lymphocytes % (Manual) 17 % (20-45) Monocytes % (Manual) 7 % (1-10) Eosinophils % (Manual) 8 % (0-3) Basophils % (Manual) 3 % (0-2) Band Neutrophils 0 % (0-8) Platelet Estimate Decreased Platelet Morphology Normal Hypochromasia 3+ Anisocytosis 1+ Total Bilirubin 0.6 MG/DL (0.2-1.0) Aspartate Amino Transf (AST/SGOT) 21 U/L (15-37) Alanine Aminotransferase (ALT/SGPT) 15 U/L (12-78) Alkaline Phosphatase 86 U/L (46-116) Total Protein 6.6 G/DL (6.4-8.2) Albumin 2.4 G/DL (3.4-5.0) Globulin 4.2 g/dL Albumin/Globulin Ratio 0.6 (1.0-2.7) Current Medications Medications (Trade) Dose Ordered Sig/Gbariele Route PRN Reason Start Time Stop Time Status Last Admin Dose Admin Acetaminophen (Tylenol) 650 mg Q4H PRN ORAL Mild Pain (Pain Scale 1-3) 08/23/18 17:00 09/22/18 16:59 Acetaminophen/ Hydrocodone Bitart ([place] 5/325) 1 tab Q4H PRN ORAL PAIN 4-10 08/23/18 17:00 08/30/18 16:59 Amlodipine Besylate (Norvasc) 10 mg DAILY ORAL 08/24/18 09:00 09/23/18 08:59 08/26/18 09:35 Atorvastatin Calcium (Lipitor) 40 mg BEDTIME ORAL 08/23/18 21:00 09/22/18 20:59 08/27/18 22:18 Bacitracin (Bacitracin 15gm tube) 1 applic PRN TOPIC 08/25/18 21:30 09/23/18 21:29 08/27/18 18:00 Bisacodyl (Dulcolax) 10 mg HSPRN PRN RECTAL Constipation 08/23/18 17:00 09/22/18 16:59 Carvedilol (Coreg) 3.125 mg EVERY 12 HOURS ORAL 08/23/18 21:00 09/22/18 20:59 08/27/18 22:18 Chlorhexidine Gluconate (Cassia-Hex 2%) 1 applic DAILY@2000 TOPIC 08/26/18 20:00 09/25/18 19:59 08/27/18 22:17 Clopidogrel Bisulfate (Plavix) 75 mg DAILY ORAL 08/24/18 09:00 09/23/18 08:59 08/28/18 09:44 Dextrose (Dextrose 50%) 25 ml Q30M PRN IV Hypoglycemia 08/23/18 17:00 09/22/18 16:59 Dextrose (Dextrose 50%) 50 ml Q30M PRN IV Hypoglycemia 08/23/18 17:00 09/22/18 16:59 Diphenhydramine HCl (Benadryl) 25 mg Q6H PRN ORAL Itching/Pruritis 08/23/18 17:00 09/22/18 16:59 08/26/18 21:35 Docusate Sodium (Colace) 100 mg TID ORAL 08/24/18 09:00 09/22/18 20:59 08/28/18 12:46 Enalaprilat (Vasotec) 1.25 mg Q6H PRN IV SBP>160 IF NOT TAKING PO 08/27/18 13:30 09/26/18 13:29 08/27/18 13:31 Gabapentin (Neurontin) 300 mg BID ORAL 08/23/18 18:00 09/22/18 17:59 08/28/18 09:44 Haloperidol Lactate (Haldol) 5 mg Q6H PRN IM Agitation 08/24/18 00:15 09/23/18 00:14 08/26/18 21:36 Hydralazine HCl (Apresoline) 50 mg Q4H PRN ORAL SBP > 160mmHg 08/27/18 12:53 09/22/18 12:52 08/28/18 00:38 Ipratropium [place] (Atrovent) 500 mcg Q6H PRN HHN Shortness of Breath 08/23/18 17:00 08/28/18 16:59 Levetiracetam (Keppra) 1,000 mg Q12HR ORAL 08/23/18 18:00 09/22/18 17:59 08/28/18 09:44 Levothyroxine Sodium (Synthroid) 50 mcg DAILY@0630 ORAL 08/24/18 06:30 09/23/18 06:29 08/28/18 06:19 Lorazepam (Ativan 2mg/ml 1ml) 0.5 mg Q4H PRN IV For Anxiety 08/23/18 17:00 08/30/18 16:59 08/28/18 02:39 Ondansetron HCl (Zofran) 4 mg Q6H PRN IVP Nausea & Vomiting 08/23/18 17:00 09/22/18 16:59 Piperacillin Sod/ Tazobactam Sod 2.25 gm/Dextrose 55 ml @ 110 mls/hr Q8HR IVPB 08/26/18 22:00 08/31/18 21:59 08/28/18 13:55 Polyethylene Glycol (Miralax) 17 gm HSPRN PRN ORAL Constipation 08/23/18 21:00 09/22/18 20:59 Quetiapine Fumarate (SEROquel) 400 mg QHS ORAL 08/23/18 21:00 09/22/18 20:59 08/27/18 22:18 Sevelamer Carbonate (Renvela) 1,600 mg TID ORAL 08/25/18 09:00 09/23/18 08:59 08/28/18 12:46 Vancomycin HCl (Vanco rx to dose) 1 ea DAILY PRN MISC Per rx protocol 08/23/18 18:00 09/22/18 17:59 Vitamin B Complex/ Vit C/Folic Acid (Nephrovite) 1 tab DAILY ORAL 08/24/18 09:00 09/23/18 08:59 08/28/18 09:44 Nehal Nolasco MD Aug 28, 2018 14:57
[2018-08-28] MEDS: Haloperidol 5mg/ml Inj IM PRN (16:10)
[2018-08-28 16:53] LABS: HEMATOCRIT 23.9 % (37.0-47.0); HEMOGLOBIN 7.4 G/DL (12.0-16.0); MEAN CORPUSCULAR VOLUME 95 FL (80-99); PLATELET COUNT 179 K/UL (150-450); RED BLOOD COUNT 2.53 M/UL (4.20-5.40); WHITE BLOOD COUNT 7.8 K/UL (4.8-10.8)
[2018-08-28] MEDS: HydrALAZINE 25mg tab ORAL SCH (17:10)
--- NOTE | 2018-08-28 17:20 | Hematology/Onc Progress Note ---
Assessment/Plan Assessment/Plan Assessment and Recs: # Anemia of chronic disease due to underlying chronic medical issues, multifactorial --> Anemia workup has been reviewed from previous/recent admission, Ferritin 427 --> No evidence of hemolysis is noted, peripheral smear has been reviewed. --> Hgb goal >7. Transfuse prn. Hgb 8.1 --> Epogen 4000 units sq TID, has been started, adjust per renal recs --> Medications have been reviewed --> low threshold for gi evaluation in case has occult + # Thrombocytopenia is likely reactive --> trend 143k-->179k # ESRD (end stage renal disease) on dialysis --> HD 3x a week as per renal --> as per renal # PNA --> previous admission # HTN / Pulmonary HTN --> controlled # Diabetes type 2. --> monitor BS levels The timing of this note does not necessarily reflect the time of the patient was seen. GREATLY APPRECIATE CONSULTATION. Subjective Constitutional: Denies: no symptoms, chills, fever, malaise, weakness, other HEENT: Denies: no symptoms, eye pain, blurred vision, tearing, double vision, ear pain, ear discharge, nose pain, nose congestion, throat pain, throat swelling, mouth pain, mouth swelling, other Cardiovascular: Denies: no symptoms, chest pain, edema, irregular heart rate, lightheadedness, palpitations, syncope, other Respiratory: Denies: no symptoms, cough, shortness of breath, SOB with excertion, SOB at rest, sputum, wheezing, other Neurologic/Psychiatric: Denies: no symptoms, anxiety, depressed, emotional problems, headache, numbness, paresthesia, pre-existing deficit, seizure, tingling, tremors, weakness, other Allergies: Coded Allergies: No Known Allergies (Verified , 08/23/06) Subjective 08/27: is on zosyn as per id, ivl was placed this am 08/28: cellulitis is improved, on abx per id, hgb 7.4, stable Objective Objective Current Medications Medications (Trade) Dose Ordered Sig/Gabriele Route PRN Reason Start Time Stop Time Status Last Admin Dose Admin Acetaminophen (Tylenol) 650 mg Q4H PRN ORAL Mild Pain (Pain Scale 1-3) 08/23/18 17:00 09/22/18 16:59 Acetaminophen/ Hydrocodone Bitart ([place] 5/325) 1 tab Q4H PRN ORAL PAIN 4-10 08/23/18 17:00 08/30/18 16:59 Amlodipine Besylate (Norvasc) 10 mg DAILY ORAL 08/24/18 09:00 09/23/18 08:59 08/26/18 09:35 Atorvastatin Calcium (Lipitor) 40 mg BEDTIME ORAL 08/23/18 21:00 09/22/18 20:59 08/27/18 22:18 Bacitracin (Bacitracin 15gm tube) 1 applic PRN TOPIC 08/25/18 21:30 09/23/18 21:29 08/27/18 18:00 Bisacodyl (Dulcolax) 10 mg HSPRN PRN RECTAL Constipation 08/23/18 17:00 09/22/18 16:59 Carvedilol (Coreg) 3.125 mg EVERY 12 HOURS ORAL 08/23/18 21:00 09/22/18 20:59 08/27/18 22:18 Chlorhexidine Gluconate (Cassia-Hex 2%) 1 applic DAILY@2000 TOPIC 08/26/18 20:00 09/25/18 19:59 08/27/18 22:17 Clopidogrel Bisulfate (Plavix) 75 mg DAILY ORAL 08/24/18 09:00 09/23/18 08:59 08/28/18 09:44 Dextrose (Dextrose 50%) 25 ml Q30M PRN IV Hypoglycemia 08/23/18 17:00 09/22/18 16:59 Dextrose (Dextrose 50%) 50 ml Q30M PRN IV Hypoglycemia 08/23/18 17:00 09/22/18 16:59 Diphenhydramine HCl (Benadryl) 25 mg Q6H PRN ORAL Itching/Pruritis 08/23/18 17:00 09/22/18 16:59 08/26/18 21:35 Docusate Sodium (Colace) 100 mg TID ORAL 08/24/18 09:00 09/22/18 20:59 08/28/18 17:10 Enalaprilat (Vasotec) 1.25 mg Q6H PRN IV SBP>160 IF NOT TAKING PO 08/27/18 13:30 09/26/18 13:29 08/27/18 13:31 Gabapentin (Neurontin) 300 mg BID ORAL 08/23/18 18:00 09/22/18 17:59 08/28/18 17:10 Haloperidol Lactate (Haldol) 5 mg Q6H PRN IM Agitation 08/24/18 00:15 09/23/18 00:14 08/28/18 16:10 Hydralazine HCl (Apresoline) 25 mg Q6HR ORAL 08/28/18 18:00 09/27/18 17:59 08/28/18 17:10 Hydralazine HCl (Apresoline) 50 mg Q4H PRN ORAL SBP > 160mmHg 08/27/18 12:53 09/22/18 12:52 08/28/18 00:38 Levetiracetam (Keppra) 1,000 mg Q12HR ORAL 08/23/18 18:00 09/22/18 17:59 08/28/18 09:44 Levothyroxine Sodium (Synthroid) 50 mcg DAILY@0630 ORAL 08/24/18 06:30 09/23/18 06:29 08/28/18 06:19 Lorazepam (Ativan 2mg/ml 1ml) 1 mg Q4H PRN IV For Anxiety 08/28/18 16:28 09/04/18 16:27 Ondansetron HCl (Zofran) 4 mg Q6H PRN IVP Nausea & Vomiting 08/23/18 17:00 09/22/18 16:59 Piperacillin Sod/ Tazobactam Sod 2.25 gm/Dextrose 55 ml @ 110 mls/hr Q8HR IVPB 08/26/18 22:00 08/31/18 21:59 08/28/18 13:55 Polyethylene Glycol (Miralax) 17 gm HSPRN PRN ORAL Constipation 08/23/18 21:00 09/22/18 20:59 Quetiapine Fumarate (SEROquel) 400 mg QHS ORAL 08/23/18 21:00 09/22/18 20:59 08/27/18 22:18 Sevelamer Carbonate (Renvela) 1,600 mg TID ORAL 08/25/18 09:00 09/23/18 08:59 08/28/18 17:10 Vancomycin HCl (Vanco rx to dose) 1 ea DAILY PRN MISC Per rx protocol 08/23/18 18:00 09/22/18 17:59 Vitamin B Complex/ Vit C/Folic Acid (Nephrovite) 1 tab DAILY ORAL 08/24/18 09:00 09/23/18 08:59 08/28/18 09:44 Last 24 Hour Vital Signs Date Time Temp Pulse Resp B/P (MAP) Pulse Ox O2 Delivery O2 Flow Rate FiO2 08/28/18 17:10 174/89 08/28/18 16:00 98.6 74 18 174/89 (117) 93 08/28/18 12:00 98.6 80 19 155/83 (107) 96 08/28/18 09:45 74 168/71 08/28/18 09:45 74 168/71 08/28/18 09:00 Room Air 08/28/18 08:00 98.0 74 20 168/71 (103) 95 08/28/18 04:00 98.6 65 18 144/57 (86) 95 08/28/18 00:38 202/78 08/28/18 00:00 97.8 72 18 202/78 (119) 95 08/27/18 22:18 69 174/62 08/27/18 21:00 Room Air 08/27/18 20:00 97.9 69 20 174/62 (99) 94 08/27/18 17:21 169/72 08/27/18 16:00 97.9 62 20 169/72 (104) 92 08/27/18 13:31 165/81 08/27/18 12:00 98.0 67 20 165/81 (109) 08/27/18 11:19 70 200/80 (120) 08/27/18 09:00 Room Air 08/27/18 08:00 97.3 68 20 172/77 (108) 92 08/27/18 05:57 168/74 08/27/18 04:00 97.3 67 24 160/71 (100) 95 08/27/18 01:56 168/74 08/27/18 00:00 98.0 68 24 168/74 (105) 92 08/26/18 21:36 73 168/79 08/26/18 21:00 Room Air 08/26/18 20:00 98.6 74 24 166/67 (100) 95 08/26/18 18:49 73 168/79 (108) 08/26/18 17:59 70 16 191/75 (113) 93 08/26/18 17:52 191/75 Intake and Output 08/27/18 08/28/18 19:00 07:00 Intake Total 295 ml 55 ml Balance 295 ml 55 ml Intake Oral 240 ml IV Total 55 ml 55 ml # Voids 2 2 Labs Test 08/26/18 17:20 08/27/18 07:00 08/28/18 16:30 Random Vancomycin Level 21.5 ug/mL 20.7 ug/mL White Blood Count 5.0 K/UL (4.8-10.8) 7.8 K/UL (4.8-10.8) Red Blood Count 2.55 M/UL (4.20-5.40) 2.53 M/UL (4.20-5.40) Hemoglobin 7.7 G/DL (12.0-16.0) 7.4 G/DL (12.0-16.0) Hematocrit 24.2 % (37.0-47.0) 23.9 % (37.0-47.0) Mean Corpuscular Volume 95 FL (80-99) 95 FL (80-99) Mean Corpuscular Hemoglobin 30.2 PG (27.0-31.0) 29.2 PG (27.0-31.0) Mean Corpuscular Hemoglobin Concent 31.9 G/DL (32.0-36.0) 30.9 G/DL (32.0-36.0) Red Cell Distribution Width 14.4 % (11.6-14.8) 14.0 % (11.6-14.8) Platelet Count 143 K/UL (150-450) 179 K/UL (150-450) Mean Platelet Volume 7.3 FL (6.5-10.1) 7.3 FL (6.5-10.1) Neutrophils (%) (Auto) % (45.0-75.0) % (45.0-75.0) Lymphocytes (%) (Auto) % (20.0-45.0) % (20.0-45.0) Monocytes (%) (Auto) % (1.0-10.0) % (1.0-10.0) Eosinophils (%) (Auto) % (0.0-3.0) % (0.0-3.0) Basophils (%) (Auto) % (0.0-2.0) % (0.0-2.0) Differential Total Cells Counted 100 Neutrophils % (Manual) 65 % (45-75) Lymphocytes % (Manual) 17 % (20-45) Monocytes % (Manual) 7 % (1-10) Eosinophils % (Manual) 8 % (0-3) Basophils % (Manual) 3 % (0-2) Band Neutrophils 0 % (0-8) Platelet Estimate Decreased Platelet Morphology Normal Hypochromasia 3+ Anisocytosis 1+ Sodium Level 138 MMOL/L (136-145) Potassium Level 4.5 MMOL/L (3.5-5.1) Chloride Level 99 MMOL/L (98-107) Carbon Dioxide Level 22 MMOL/L (21-32) Anion Gap 17 mmol/L (5-15) Blood Urea Nitrogen 42 mg/dL (7-18) Creatinine 7.9 MG/DL (0.55-1.30) Estimat Glomerular Filtration Rate 5.3 mL/min (>60) Glucose Level 87 MG/DL (74-106) Calcium Level 9.0 MG/DL (8.5-10.1) Total Bilirubin 0.6 MG/DL (0.2-1.0) Aspartate Amino Transf (AST/SGOT) 21 U/L (15-37) Alanine Aminotransferase (ALT/SGPT) 15 U/L (12-78) Alkaline Phosphatase 86 U/L (46-116) Total Protein 6.6 G/DL (6.4-8.2) Albumin 2.4 G/DL (3.4-5.0) Globulin 4.2 g/dL Albumin/Globulin Ratio 0.6 (1.0-2.7) Height (Feet): 5 Height (Inches): 6.00 Weight (Pounds): 198 Objective General: no apparent distress, confused Head: normocephalic, atraumatic Eyes: bilateral eye PERRL ENT: dry mucus membranes Neck: supple Respiratory: no retraction,diminished bilaterally CV: regular rate, rhythm GI: non tender, soft MSK: other - Significant edema with erythema both lower extremities, multiple abrasions in the upper extremity, cellulitis better Neurologic: responsive - appears confused Lymphatic: no adenopathy Kleynberg,Odilon L. MD Aug 28, 2018 17:20
--- NOTE | 2018-08-28 18:45 | Progress Note ---
DATE: 08/28/2018 SUBJECTIVE: The patient is yelling, screaming, easily agitated. Poor insight. MENTAL STATUS EXAMINATION: The patient is oriented times self and place. Mood was anxious. Affect is blunted, congruent with mood. Thought process is disorganized and concrete. Thought content, no suicidal, or homicidal ideation. ASSESSMENT: Schizoaffective disorder, encephalopathy. PLAN: 1. The patient lacks capacity to make decisions or leave AMA. 2. We will increase the Ativan p.r.n. 3. Continue the Seroquel. Blanka Beckett M.D. DR: CALVIN JOB#: [id number] CC:
--- NOTE | 2018-08-28 19:47 | NUR ---
HAND-OFF: Report given to RN MARINA.
--- NOTE | 2018-08-28 19:50 | NUR ---
NURSE NOTES: Pt is in bed, yelling and moaning, pt has been doing that since yesterday. Pt is on Fall precaution. Bed alarm on. Pt has bilat soft wrist restraints, restraints sites are asymptomatic. Pt has blood blisters all over the body, pt tends to scratch the blisters and make them bleed if not restrained. Dressing on right foot is dry and intact. Pt is turned frequently, nutrition and hydration provided. Pt reoriented and talk therapy provided. Pt's BP on the high side because pt is agitated. Blood pressure medication and Ativan will be given as ordered PRN. Bed locked low in position,side rails up padded. Call light within reach. Pt will be monitored. Chris King RN will be assisting in patient care.
--- NOTE | 2018-08-28 20:31 | General Progress Note ---
Assessment/Plan Assessment/Plan: #Diffuse wounds on all extremities - improving - Appreciate surgery consultation and noted recommendations: apply bacitracin ointment to scabs and scars on upper and lower extremity okay to wrap bilateral upper extremities with kerlix wrap to prevent patient from picking scabs and see if able to heal old traumatic wounds - Antibiotics by ID service. Patient has poor IV access, likely transition to PO abx in AM, if not PICC will be needed #Acute on chronic anemia #Anemia of ESRD #ESRD -Patient may benefit from PRBC transfusion if Hb <7 -Appreciate nephrology consultation. -monitor CBC and BMP -REFUSING HD as outpatient. - HD per renal #Chronic diastolic CHF #HTN #Hyperlipidemia -fluid management via HD, Planned for today 08/24 -continue minoxidil, clonidine, Coreg, Norvasc and Lipitor #Type 2 DM #Obesity -continue Januvia -lispro SS #Epilepsy -continue Keppra #Bipolar and anxiety -continue Seroquel -psych consult appreciated #Hypothyroidism -continue levothyroxine # Cellulitis of upper extremities - Zosyn and Vancomycin started. Anticipate IV course. - Monitor response to therapy - Surgery consult appreciated. - supportive care # Disposition - Patient is a resident at [facility] VTE PPx SCD Full Code I spent 70 minutes on this patient's case, and 35 minutes was dedicated to counseling and/or care coordination. Subjective Date patient seen: Aug 28, 2018 Allergies: Coded Allergies: No Known Allergies (Verified , 08/23/06) Subjective No acute overnight events, remain on restraints, will try to DC. wounds healing well, pt more calm today, taking all PO medications, plan to DC to SNF tomorrow Objective Last 24 Hour Vital Signs Date Time Temp Pulse Resp B/P (MAP) Pulse Ox O2 Delivery O2 Flow Rate FiO2 08/28/18 18:00 160/79 (106) 08/28/18 17:10 174/89 08/28/18 16:00 98.6 74 18 174/89 (117) 93 08/28/18 12:00 98.6 80 19 155/83 (107) 96 08/28/18 09:45 74 168/71 08/28/18 09:45 74 168/71 08/28/18 09:00 Room Air 08/28/18 08:00 98.0 74 20 168/71 (103) 95 08/28/18 04:00 98.6 65 18 144/57 (86) 08/28/18 00:38 202/78 08/28/18 00:00 97.8 72 18 (119) 08/27/18 22:18 69 174/62 08/27/18 21:00 Room Air Intake and Output 08/27/18 08/28/18 19:00 07:00 Intake Total 295 ml 55 ml Balance 295 ml 55 ml Intake Oral 240 ml IV Total 55 ml 55 ml # Voids 2 2 Laboratory Tests 08/28/18 16:30: White Blood Count 7.8#, Red Blood Count 2.53L, Hemoglobin 7.4L, Hematocrit 23.9L , Mean Corpuscular Volume 95, Mean Corpuscular Hemoglobin 29.2, Mean Corpuscular Hemoglobin Concent 30.9L, Red Cell Distribution Width 14.0, Platelet Count 179, Mean Platelet Volume 7.3, Neutrophils (%) (Auto) , Lymphocytes (%) (Auto) , Monocytes (%) (Auto) , Eosinophils (%) (Auto) , Basophils (%) (Auto) , Differential Total Cells Counted 100, Neutrophils % ( Manual) 76H, Lymphocytes % (Manual) 11L, Monocytes % (Manual) 7, Eosinophils % ( Manual) 3, Basophils % (Manual) 2, Band Neutrophils 1, Platelet Estimate Adequate, Platelet Morphology Normal, Hypochromasia 1+, Anisocytosis 1+ Height (Feet): 5 Height (Inches): 6.00 Weight (Pounds): 198 Lupe Escalona MD Aug 28, 2018 20:31
[2018-08-28] MEDS ORDERED: Epoetin Alfa-EPBX(ESRD on dialysis)4000 units/ml vial SUBQ SCH (21:00)
[2018-08-28] MEDS: Dyna-Hex 2% Top Sol 2oz TOPIC SCH (21:01)
[2018-08-28] MEDS: Atorvastatin 20mg tab ORAL SCH (21:02)
[2018-08-28] MEDS: QUEtiapine 200mg tab ORAL SCH (21:03)
[2018-08-28] MEDS: HYDROcodone/Acetamin 5/325 tab ORAL PRN (21:06)
--- NOTE | 2018-08-28 22:10 | NUR ---
NURSE NOTES: Pt BP is 216/91. Hydralazine 50mg PRN given as ordered. Will continue to monitor
--- NOTE | 2018-08-28 23:00 | NUR ---
NURSE NOTES: Pt is in bed, calm.
[2018-08-29] VITALS: BP 167/92
[2018-08-29] MEDS: Haloperidol 5mg/ml Inj IM PRN ×2 (00:18→20:00)
[2018-08-29] MEDS: HydrALAZINE 25mg tab ORAL SCH ×4 (00:18→17:28)
[2018-08-29 04:00] VITALS: BP 170/93
--- NOTE | 2018-08-29 04:31 | NUR ---
NURSE NOTES: Pt is in bed, calm.
[2018-08-29] MEDS: Piperacillin/Tazobactam 2.25 GM in D5W 55 ML IVPB SCH ×3 (05:08→21:12)
[2018-08-29] MEDS: HydrALAZINE 50mg tab ORAL PRN ×2 (05:09→20:00)
--- NOTE | 2018-08-29 07:15 | NUR ---
HAND-OFF: Report given to CHEPE Mckeon. Informed oncoming nurse that pt is fall risk. Also, informed to monitor blood pressure closely.
--- NOTE | 2018-08-29 07:30 | NUR ---
NURSE NOTES: Received pt from RN MARINA/SHARAN. Pt is confused x2. pt is in RA, No SOB or acute respiratory distress noted. pt has intact iv access CATALINA 24g SL. Pt has blood blister all over body. a SUPERVISOR BLASTING is feeding pt. All needs attended, bed is locked and is in the lowest position. call light within easy reach. will continue to monitor.
[2018-08-29 07:40] LABS: ALANINE AMINOTRANSFERASE 13 U/L (12-78); ALBUMIN 2.4 G/DL (3.4-5.0); ALBUMIN/GLOBULIN RATIO 0.6 (1.0-2.7); ALKALINE PHOSPHATASE 92 U/L (46-116); ANION GAP 10 mmol/L (5-15); ASPARTATE AMINO TRANSFERASE 16 U/L (15-37); BILIRUBIN,TOTAL 0.6 MG/DL (0.2-1.0); BLOOD UREA NITROGEN 37 mg/dL (7-18); CALCIUM 9.1 MG/DL (8.5-10.1); CARBON DIOXIDE 26 MMOL/L (21-32); CHLORIDE 98 MMOL/L (98-107); CREATININE 7.4 MG/DL (0.55-1.30); POTASSIUM 4.3 MMOL/L (3.5-5.1); SODIUM 134 MMOL/L (136-145)
[2018-08-29 08:00] VITALS: BP 146/94
[2018-08-29] MEDS: Lisinopril 10mg tab ORAL SCH ×2 (08:57→17:29)
[2018-08-29] MEDS: Docusate 100mg cap ORAL SCH ×3 (08:57→17:28)
[2018-08-29] MEDS: Nephrovite tab (Rena-Vite) ORAL SCH (08:58)
[2018-08-29] MEDS: Carvedilol 6.25mg Tab ORAL SCH ×2 (08:58→20:01)
[2018-08-29] MEDS ORDERED: Lisinopril 10mg tab ORAL SCH (09:00)
--- NOTE | 2018-08-29 10:28 | Hematology/Onc Progress Note ---
Assessment/Plan Assessment/Plan Assessment and Recs: # Anemia of chronic disease due to underlying chronic medical issues, multifactorial --> Anemia workup has been reviewed from previous/recent admission, Ferritin 427 --> No evidence of hemolysis is noted, peripheral smear has been reviewed. --> Hgb goal >7. Transfuse prn. Hgb 8.1 --> Epogen 4000 units sq TID, has been started, adjust per renal recs --> Medications that have been reviewed --> low threshold for gi evaluation in case has occult + # Thrombocytopenia is likely reactive --> trend 143k-->179k # ESRD (end stage renal disease) on dialysis, cr 7-10 --> HD 3x a week as per renal --> as per renal # PNA --> previous admission # HTN / Pulmonary HTN --> controlled # Diabetes type 2. --> monitor BS levels The timing of this note does not necessarily reflect the time of the patient was seen. GREATLY APPRECIATE CONSULTATION. Subjective Constitutional: Denies: no symptoms, chills, fever, malaise, weakness, other HEENT: Denies: no symptoms, eye pain, blurred vision, tearing, double vision, ear pain, ear discharge, nose pain, nose congestion, throat pain, throat swelling, mouth pain, mouth swelling, other Cardiovascular: Denies: no symptoms, chest pain, edema, irregular heart rate, lightheadedness, palpitations, syncope, other Respiratory: Denies: no symptoms, cough, shortness of breath, SOB with excertion, SOB at rest, sputum, wheezing, other Gastrointestinal/Abdominal: Denies: no symptoms, abdomen distended, abdominal pain, black stools, tarry stools, blood in stool, constipated, diarrhea, difficulty swallowing, nausea, poor appetite, poor fluid intake, rectal bleeding , vomiting, other Genitourinary: Denies: no symptoms, burning, discharge, frequency, flank pain, hematuria, incontinence, pain, urgency, other Neurologic/Psychiatric: Denies: no symptoms, anxiety, depressed, emotional problems, headache, numbness, paresthesia, pre-existing deficit, seizure, tingling, tremors, weakness, other Endocrine: Denies: no symptoms, excessive sweating, flushing, intolerance to cold, intolerance to heat, increased hunger, increased thirst, increased urine, unexplained weight gain, unexplained weight loss, other Allergies: Coded Allergies: No Known Allergies (Verified , 08/23/06) Subjective 08/27: is on zosyn as per id, ivl was placed this am 08/28: cellulitis is improved, on abx per id, hgb 7.4, stable 08/29: cbc remains at 7.4, repeat pending, on epo Objective Objective Current Medications Medications (Trade) Dose Ordered Sig/Gabriele Route PRN Reason Start Time Stop Time Status Last Admin Dose Admin Acetaminophen (Tylenol) 650 mg Q4H PRN ORAL Mild Pain (Pain Scale 1-3) 08/23/18 17:00 09/22/18 16:59 Acetaminophen/ Hydrocodone Bitart ([place] 5/325) 1 tab Q4H PRN ORAL PAIN 4-10 08/23/18 17:00 08/30/18 16:59 08/28/18 21:06 Amlodipine Besylate (Norvasc) 10 mg DAILY ORAL 08/24/18 09:00 09/23/18 08:59 08/29/18 08:58 Atorvastatin Calcium (Lipitor) 40 mg BEDTIME ORAL 08/23/18 21:00 09/22/18 20:59 08/28/18 21:02 Bacitracin (Bacitracin 15gm tube) 1 applic PRN TOPIC 08/25/18 21:30 09/23/18 21:29 08/27/18 18:00 Bisacodyl (Dulcolax) 10 mg HSPRN PRN RECTAL Constipation 08/23/18 17:00 09/22/18 16:59 Carvedilol (Coreg) 6.25 mg EVERY 12 HOURS ORAL 08/29/18 09:00 09/22/18 20:59 08/29/18 08:58 Chlorhexidine Gluconate (Cassia-Hex 2%) 1 applic DAILY@2000 TOPIC 08/26/18 20:00 09/25/18 19:59 08/28/18 21:01 Clopidogrel Bisulfate (Plavix) 75 mg DAILY ORAL 08/24/18 09:00 09/23/18 08:59 08/29/18 08:58 Dextrose (Dextrose 50%) 25 ml Q30M PRN IV Hypoglycemia 08/23/18 17:00 09/22/18 16:59 Dextrose (Dextrose 50%) 50 ml Q30M PRN IV Hypoglycemia 08/23/18 17:00 09/22/18 16:59 Diphenhydramine HCl (Benadryl) 25 mg Q6H PRN ORAL Itching/Pruritis 08/23/18 17:00 09/22/18 16:59 08/28/18 21:03 Docusate Sodium (Colace) 100 mg TID ORAL 08/24/18 09:00 09/22/18 20:59 08/29/18 08:57 Enalaprilat (Vasotec) 1.25 mg Q6H PRN IV SBP>160 IF NOT TAKING PO 08/27/18 13:30 09/26/18 13:29 08/27/18 13:31 Epoetin Mau (Epoetin Mau(ESRD on dialysis)) 4,000 unit SUBQ 08/28/18 21:00 09/27/18 20:59 08/28/18 22:01 Gabapentin (Neurontin) 300 mg BID ORAL 08/23/18 18:00 09/22/18 17:59 08/29/18 08:58 Haloperidol Lactate (Haldol) 5 mg Q6H PRN IM Agitation 08/24/18 00:15 09/23/18 00:14 08/29/18 00:18 Hydralazine HCl (Apresoline) 25 mg Q6HR ORAL 08/28/18 18:00 09/27/18 17:59 08/29/18 05:44 Hydralazine HCl (Apresoline) 50 mg Q4H PRN ORAL SBP > 160mmHg 08/27/18 12:53 09/22/18 12:52 08/29/18 05:09 Levetiracetam (Keppra) 1,000 mg Q12HR ORAL 08/23/18 18:00 09/22/18 17:59 08/29/18 08:58 Levothyroxine Sodium (Synthroid) 50 mcg DAILY@0630 ORAL 08/24/18 06:30 09/23/18 06:29 08/29/18 05:42 Lisinopril (Zestril) 10 mg BID ORAL 08/29/18 09:00 09/28/18 08:59 08/29/18 08:57 Lorazepam (Ativan 2mg/ml 1ml) 1 mg Q4H PRN IV For Anxiety 08/28/18 16:28 09/04/18 16:27 08/28/18 22:07 Ondansetron HCl (Zofran) 4 mg Q6H PRN IVP Nausea & Vomiting 08/23/18 17:00 09/22/18 16:59 Piperacillin Sod/ Tazobactam Sod 2.25 gm/Dextrose 55 ml @ 110 mls/hr Q8HR IVPB 08/26/18 22:00 08/31/18 21:59 08/29/18 05:08 Polyethylene Glycol (Miralax) 17 gm HSPRN PRN ORAL Constipation 08/23/18 21:00 09/22/18 20:59 Quetiapine Fumarate (SEROquel) 400 mg QHS ORAL 08/23/18 21:00 09/22/18 20:59 08/28/18 21:03 Sevelamer Carbonate (Renvela) 1,600 mg TID ORAL 08/25/18 09:00 09/23/18 08:59 08/29/18 08:58 Vancomycin HCl (Vanco rx to dose) 1 ea DAILY PRN MISC Per rx protocol 08/23/18 18:00 09/22/18 17:59 Vitamin B Complex/ Vit C/Folic Acid (Nephrovite) 1 tab DAILY ORAL 08/24/18 09:00 09/23/18 08:59 08/29/18 08:58 Last 24 Hour Vital Signs Date Time Temp Pulse Resp B/P (MAP) Pulse Ox O2 Delivery O2 Flow Rate FiO2 08/29/18 09:00 Room Air 08/29/18 08:58 71 146/94 08/29/18 08:58 71 146/94 08/29/18 08:57 146/94 08/29/18 08:00 97.0 71 20 146/94 (111) 95 08/29/18 05:44 170/92 08/29/18 05:09 190/72 08/29/18 04:00 98.4 70 18 170/93 (118) 93 08/29/18 00:18 205/103 08/29/18 00:00 98.2 67 20 167/92 (117) 94 08/28/18 23:08 98.6 74 18 169/83 (111) 93 08/28/18 21:58 216/91 08/28/18 21:02 73 214/93 08/28/18 21:00 Room Air 08/28/18 20:00 98.1 73 19 214/93 (133) 93 08/28/18 18:00 160/79 (106) 08/28/18 17:10 174/89 08/28/18 16:00 98.6 74 18 174/89 (117) 93 08/28/18 12:00 98.6 80 19 155/83 (107) 96 08/28/18 09:45 74 168/71 08/28/18 09:45 74 168/71 08/28/18 09:00 Room Air 08/28/18 08:00 98.0 74 20 168/71 (103) 95 08/28/18 04:00 98.6 65 18 144/57 (86) 95 08/28/18 00:38 202/78 08/28/18 00:00 97.8 72 18 202/78 (119) 95 08/27/18 22:18 69 174/62 08/27/18 21:00 Room Air 08/27/18 20:00 97.9 69 20 174/62 (99) 94 08/27/18 17:21 169/72 08/27/18 16:00 97.9 62 20 169/72 (104) 92 08/27/18 13:31 165/81 08/27/18 12:00 98.0 67 20 165/81 (109) 08/27/18 11:19 70 200/80 (120) Intake and Output 08/28/18 08/29/18 19:00 07:00 Intake Total 1190.000 ml 590 ml Output Total 2000 ml Balance -810.000 ml 590 ml Intake Oral 860 ml 480 ml IV Total 330.000 ml 110 ml Output Hemodialysis UF 2000 ml # Voids 1 Labs Test 08/26/18 17:20 08/27/18 07:00 08/28/18 16:30 08/29/18 05:54 Random Vancomycin Level 21.5 ug/mL 20.7 ug/mL White Blood Count 5.0 K/UL (4.8-10.8) 7.8 K/UL (4.8-10.8) Red Blood Count 2.55 M/UL (4.20-5.40) 2.53 M/UL (4.20-5.40) Hemoglobin 7.7 G/DL (12.0-16.0) 7.4 G/DL (12.0-16.0) Hematocrit 24.2 % (37.0-47.0) 23.9 % (37.0-47.0) Mean Corpuscular Volume 95 FL (80-99) 95 FL (80-99) Mean Corpuscular Hemoglobin 30.2 PG (27.0-31.0) 29.2 PG (27.0-31.0) Mean Corpuscular Hemoglobin Concent 31.9 G/DL (32.0-36.0) 30.9 G/DL (32.0-36.0) Red Cell Distribution Width 14.4 % (11.6-14.8) 14.0 % (11.6-14.8) Platelet Count 143 K/UL (150-450) 179 K/UL (150-450) Mean Platelet Volume 7.3 FL (6.5-10.1) 7.3 FL (6.5-10.1) Neutrophils (%) (Auto) % (45.0-75.0) % (45.0-75.0) Lymphocytes (%) (Auto) % (20.0-45.0) % (20.0-45.0) Monocytes (%) (Auto) % (1.0-10.0) % (1.0-10.0) Eosinophils (%) (Auto) % (0.0-3.0) % (0.0-3.0) Basophils (%) (Auto) % (0.0-2.0) % (0.0-2.0) Differential Total Cells Counted 100 100 Neutrophils % (Manual) 65 % (45-75) 76 % (45-75) Lymphocytes % (Manual) 17 % (20-45) 11 % (20-45) Monocytes % (Manual) 7 % (1-10) 7 % (1-10) Eosinophils % (Manual) 8 % (0-3) 3 % (0-3) Basophils % (Manual) 3 % (0-2) 2 % (0-2) Band Neutrophils 0 % (0-8) 1 % (0-8) Platelet Estimate Decreased Adequate Platelet Morphology Normal Normal Hypochromasia 3+ 1+ Anisocytosis 1+ 1+ Sodium Level 138 MMOL/L (136-145) 134 MMOL/L (136-145) Potassium Level 4.5 MMOL/L (3.5-5.1) 4.3 MMOL/L (3.5-5.1) Chloride Level 99 MMOL/L (98-107) 98 MMOL/L (98-107) Carbon Dioxide Level 22 MMOL/L (21-32) 26 MMOL/L (21-32) Anion Gap 17 mmol/L (5-15) 10 mmol/L (5-15) Blood Urea Nitrogen 42 mg/dL (7-18) 37 mg/dL (7-18) Creatinine 7.9 MG/DL (0.55-1.30) 7.4 MG/DL (0.55-1.30) Estimat Glomerular Filtration Rate 5.3 mL/min (>60) 5.6 mL/min (>60) Glucose Level 87 MG/DL (74-106) 92 MG/DL (74-106) Calcium Level 9.0 MG/DL (8.5-10.1) 9.1 MG/DL (8.5-10.1) Total Bilirubin 0.6 MG/DL (0.2-1.0) 0.6 MG/DL (0.2-1.0) Aspartate Amino Transf (AST/SGOT) 21 U/L (15-37) 16 U/L (15-37) Alanine Aminotransferase (ALT/SGPT) 15 U/L (12-78) 13 U/L (12-78) Alkaline Phosphatase 86 U/L (46-116) 92 U/L (46-116) Total Protein 6.6 G/DL (6.4-8.2) 6.4 G/DL (6.4-8.2) Albumin 2.4 G/DL (3.4-5.0) 2.4 G/DL (3.4-5.0) Globulin 4.2 g/dL 4.0 g/dL Albumin/Globulin Ratio 0.6 (1.0-2.7) 0.6 (1.0-2.7) Height (Feet): 5 Height (Inches): 6.00 Weight (Pounds): 198 Objective General: no apparent distress, remains confused Head: normocephalic, atraumatic Eyes: bilateral eye PERRL ENT: dry mucus membranes Neck: currently supple Respiratory: no retraction, diminished breathing b/l CV: regular rate, rhythm GI: non tender, soft MSK: other - Significant edema with erythema both lower extremities, multiple abrasions in the upper extremity, cellulitis better Neurologic: responsive - appears confused Lymphatic: no adenopathy Odilon Min MD Aug 29, 2018 10:28
[2018-08-29 12:00] VITALS: BP 128/69
[2018-08-29] MEDS: LORazepam Inj 2mg/ml 1ml IV PRN ×2 (12:24→22:54)
--- NOTE | 2018-08-29 13:26 | Diagnostic Imaging Report ---
Indication: Dyspnea Comparison: 08/23/2018 2 views of the chest obtained. Findings: Vascular congestion demonstrated within the lungs. The heart is enlarged. Bones are slightly osteopenic. IMPRESSION: Pulmonary vascular congestion
--- NOTE | 2018-08-29 13:39 | Surgery Progress Note ---
Surgery Progress Note Subjective Symptoms: improved, tolerating diet, voiding well, passing flatus Additional Comments more awake and responsive today not picking as much at wounds wounds improving Objective Last 24 Hour Vital Signs Date Time Temp Pulse Resp B/P (MAP) Pulse Ox O2 Delivery O2 Flow Rate FiO2 08/29/18 12:23 128/69 08/29/18 12:00 97.9 69 20 128/69 (88) 99 08/29/18 09:00 Room Air 08/29/18 08:58 71 146/94 08/29/18 08:58 71 146/94 08/29/18 08:57 146/94 08/29/18 08:00 97.0 71 20 146/94 (111) 95 08/29/18 05:44 170/92 08/29/18 05:09 190/72 08/29/18 04:00 98.4 70 18 170/93 (118) 93 08/29/18 00:18 205/103 08/29/18 00:00 98.2 67 20 167/92 (117) 94 08/28/18 23:08 98.6 74 18 169/83 (111) 93 08/28/18 21:58 216/91 08/28/18 21:02 73 214/93 08/28/18 21:00 Room Air 08/28/18 20:00 98.1 73 19 214/93 (133) 93 08/28/18 18:00 160/79 (106) 08/28/18 17:10 174/89 08/28/18 16:00 98.6 74 18 174/89 (117) 93 I&O Intake and Output 08/28/18 08/29/18 19:00 07:00 Intake Total 1190.000 ml 590 ml Output Total 2000 ml Balance -810.000 ml 590 ml Intake Oral 860 ml 480 ml IV Total 330.000 ml 110 ml Output Hemodialysis UF 2000 ml # Voids 1 Dressing: dry Wound: clean Cardiovascular: RSR Respiratory: clear Abdomen: soft, flat, non-tender, present bowel sounds Extremities: no tenderness, no cyanosis, other Laboratory Tests Test 08/28/18 16:30 08/29/18 05:54 White Blood Count 7.8 K/UL (4.8-10.8) # Red Blood Count 2.53 M/UL (4.20-5.40) L Hemoglobin 7.4 G/DL (12.0-16.0) L Hematocrit 23.9 % (37.0-47.0) L Mean Corpuscular Volume 95 FL (80-99) Mean Corpuscular Hemoglobin 29.2 PG (27.0-31.0) Mean Corpuscular Hemoglobin Concent 30.9 G/DL (32.0-36.0) L Red Cell Distribution Width 14.0 % (11.6-14.8) Platelet Count 179 K/UL (150-450) Mean Platelet Volume 7.3 FL (6.5-10.1) Neutrophils (%) (Auto) % (45.0-75.0) Lymphocytes (%) (Auto) % (20.0-45.0) Monocytes (%) (Auto) % (1.0-10.0) Eosinophils (%) (Auto) % (0.0-3.0) Basophils (%) (Auto) % (0.0-2.0) Differential Total Cells Counted 100 Neutrophils % (Manual) 76 % (45-75) H Lymphocytes % (Manual) 11 % (20-45) L Monocytes % (Manual) 7 % (1-10) Eosinophils % (Manual) 3 % (0-3) Basophils % (Manual) 2 % (0-2) Band Neutrophils 1 % (0-8) Platelet Estimate Adequate Platelet Morphology Normal Hypochromasia 1+ Anisocytosis 1+ Sodium Level 134 MMOL/L (136-145) L Potassium Level 4.3 MMOL/L (3.5-5.1) Chloride Level 98 MMOL/L (98-107) Carbon Dioxide Level 26 MMOL/L (21-32) Anion Gap 10 mmol/L (5-15) Blood Urea Nitrogen 37 mg/dL (7-18) H Creatinine 7.4 MG/DL (0.55-1.30) H Estimat Glomerular Filtration Rate 5.6 mL/min (>60) Glucose Level 92 MG/DL (74-106) Calcium Level 9.1 MG/DL (8.5-10.1) Total Bilirubin 0.6 MG/DL (0.2-1.0) Aspartate Amino Transf (AST/SGOT) 16 U/L (15-37) Alanine Aminotransferase (ALT/SGPT) 13 U/L (12-78) Alkaline Phosphatase 92 U/L (46-116) Total Protein 6.4 G/DL (6.4-8.2) Albumin 2.4 G/DL (3.4-5.0) L Globulin 4.0 g/dL Albumin/Globulin Ratio 0.6 (1.0-2.7) L Plan Problems: (1) Schizoaffective disorder, bipolar type (2) Lower extremity cellulitis Assessment & Plan: 57-year-old female with multiple medical comorbidities presenting from a half-way On admission patient identified to have multiple wounds Etiology of wounds potentially from trauma Patient a poor historian Patient noted to have multiple scabs on her upper and lower extremities Patient does have some distal ischemia in the toes No acute surgical intervention patient denies itching but continues to scratch wounds and open scabs distribution of wounds do not seem to be rash or skin disorder. mainly trauma related patient has blood blister noted on her right hand that she picks at causing drainage. will hold on skin biopsy for now will need to reinforce to patient not to pick at wounds, remove scabs, or deep scratching. appreciate psych input apply bacitracin ointment to scabs and scars on upper and lower extremity okay to wrap bilateral upper extremities with kerlix wrap to prevent patient from picking scabs and see if able to heal old traumatic wounds Offload pressure Turn every 2 hours We will monitor wounds while in hospital to ensure healing Nutritional optimization Thank you IV ABX (3) MDD (major depressive disorder), recurrent episode, moderate (4) Symptomatic anemia (5) Acute metabolic encephalopathy (6) CHF (congestive heart failure) (7) Bradycardia (8) Diabetes mellitus, type II (9) Hypothyroidism (10) Costochondritis (11) GERD (gastroesophageal reflux disease) (12) HTN (hypertension) (13) Anemia in chronic renal disease (14) Cellulitis of arm, right (15) Clotted renal dialysis arteriovenous graft (16) ESRD (end stage renal disease) on dialysis (17) Seizure disorder (18) Non-compliance with renal dialysis (19) Pulmonary edema (20) Pneumonia (21) History of colon cancer Vic Wise Aug 29, 2018 13:39
--- NOTE | 2018-08-29 13:40 | NUR ---
RADIOLOGY DEPT., CHEST X-RAY DONE.-P.DYE
[2018-08-29 16:00] VITALS: BP 122/67
--- NOTE | 2018-08-29 17:41 | Nephrology Progress Note ---
Assessment/Plan Problem List: (1) ESRD (end stage renal disease) on dialysis (2) Anemia in chronic renal disease (3) Schizoaffective disorder, bipolar type (4) Diabetes mellitus, type II (5) Hypothyroidism Assessment - Cellulitis both LE - Metabolic Encephalopathy - End-stage renal disease, on hemodialysis. fistula right arm - Anemia of chronic kidney disease. - HTN / Pulmonary HTN - Diabetes type 2. -HypoThyroidism Others - Morbid obesity. - H/O Colon Cancer - H/O Hep C - H/O Depression and Bipolar disease - Psych disease uncoaporative --Bilateral leg numbness --diabetic neuropathy --L5-S1 disc protrusion Plan HD done 08/24 next 08/26 and then 08/28 then 08/30 skin care / Antibiotics per consultants Subjective ROS Limited/Unobtainable: No Constitutional: Reports: malaise Objective Objective Last 24 Hour Vital Signs Date Time Temp Pulse Resp B/P (MAP) Pulse Ox O2 Delivery O2 Flow Rate FiO2 08/29/18 17:29 122/67 08/29/18 17:28 122/67 08/29/18 16:00 98.1 63 20 122/67 (85) 97 08/29/18 12:23 128/69 08/29/18 12:00 97.9 69 20 128/69 (88) 99 08/29/18 09:00 Room Air 08/29/18 08:58 71 146/94 08/29/18 08:58 71 146/94 08/29/18 08:57 146/94 08/29/18 08:00 97.0 71 20 146/94 (111) 95 08/29/18 05:44 170/92 08/29/18 05:09 190/72 08/29/18 04:00 98.4 70 18 170/93 (118) 93 08/29/18 00:18 205/103 08/29/18 00:00 98.2 67 20 167/92 (117) 94 08/28/18 23:08 98.6 74 18 169/83 (111) 93 08/28/18 21:58 216/91 08/28/18 21:02 73 214/93 08/28/18 21:00 Room Air 08/28/18 20:00 98.1 73 19 214/93 (133) 93 08/28/18 18:00 160/79 (106) Intake and Output 08/28/18 08/29/18 19:00 07:00 Intake Total 1190.000 ml 590 ml Output Total 2000 ml Balance -810.000 ml 590 ml Intake Oral 860 ml 480 ml IV Total 330.000 ml 110 ml Output Hemodialysis UF 2000 ml # Voids 1 Laboratory Tests 08/29/18 05:54: Sodium Level 134L, Potassium Level 4.3, Chloride Level 98, Carbon Dioxide Level 26, Anion Gap 10, Blood Urea Nitrogen 37H, Creatinine 7.4H, Estimat Glomerular Filtration Rate 5.6, Glucose Level 92, Calcium Level 9.1, Total Bilirubin 0.6, Aspartate Amino Transf (AST/SGOT) 16, Alanine Aminotransferase (ALT/SGPT) 13, Alkaline Phosphatase 92, Total Protein 6.4, Albumin 2.4L, Globulin 4.0, Albumin/ Globulin Ratio 0.6L Height (Feet): 5 Height (Inches): 6.00 Weight (Pounds): 198 General Appearance: no apparent distress Cardiovascular: normal rate Respiratory/Chest: lungs clear Abdomen: soft Objective no change Eamon Solis MD Aug 29, 2018 17:41
--- NOTE | 2018-08-29 17:45 | NUR ---
NURSE NOTES: RN called [facility] spoke with SHAMA regarding HD for tomorrow.
--- NOTE | 2018-08-29 19:24 | NUR ---
HAND-OFF: Report given to MEHRDAD MO .
--- NOTE | 2018-08-29 19:40 | NUR ---
NURSE NOTES: Received report from CHEPE Mckeon. Patient is awake and alert x2. Patient is in room air with no signs of respiratory distress. No complaints of pain. Bilateral soft wrist restraints are in progress for patient safety. Left upper arm IV is intact. Side rails are up and added for seizure precaution. Bed alarm on. Call light in reach. Will continue to monitor.
[2018-08-29 20:00] VITALS: BP 183/78
[2018-08-29] MEDS: QUEtiapine 200mg tab ORAL SCH (20:00)
[2018-08-29] MEDS: Dyna-Hex 2% Top Sol 2oz TOPIC SCH (20:01)
[2018-08-29] MEDS: Atorvastatin 20mg tab ORAL SCH (20:01)
--- NOTE | 2018-08-29 20:35 | General Progress Note ---
Assessment/Plan Assessment/Plan: #Diffuse wounds on all extremities - improving - Appreciate surgery consultation and noted recommendations: apply bacitracin ointment to scabs and scars on upper and lower extremity okay to wrap bilateral upper extremities with kerlix wrap to prevent patient from picking scabs and see if able to heal old traumatic wounds - Antibiotics by ID service. Patient has poor IV access, likely transition to PO abx in AM, if not PICC will be needed #Acute on chronic anemia #Anemia of ESRD #ESRD -Patient may benefit from PRBC transfusion if Hb <7 -Appreciate nephrology consultation. -monitor CBC and BMP -REFUSING HD as outpatient. - HD per renal #Chronic diastolic CHF #HTN #Hyperlipidemia -fluid management via HD, Planned for today 08/24 -continue minoxidil, clonidine, Coreg, Norvasc and Lipitor #Type 2 DM #Obesity -continue Januvia -lispro SS #Epilepsy -continue Keppra #Bipolar and anxiety -continue Seroquel -psych consult appreciated #Hypothyroidism -continue levothyroxine # Cellulitis of upper extremities - Zosyn and Vancomycin started. Anticipate IV course. - Monitor response to therapy - Surgery consult appreciated. - supportive care # Disposition - Patient is a resident at [facility] Full Code I spent 70 minutes on this patient's case, and 35 minutes was dedicated to counseling and/or care coordination. Subjective Date patient seen: Aug 29, 2018 Allergies: Coded Allergies: No Known Allergies (Verified , 08/23/06) Subjective BP elevated overnight, better controlled this AM, plan for HD in AM, pt calm, has no complaints. Objective Last 24 Hour Vital Signs Date Time Temp Pulse Resp B/P (MAP) Pulse Ox O2 Delivery O2 Flow Rate FiO2 08/29/18 20:01 66 183/78 08/29/18 20:00 183/78 08/29/18 17:29 122/67 08/29/18 17:28 122/67 08/29/18 16:00 98.1 63 20 122/67 (85) 97 08/29/18 12:23 128/69 08/29/18 12:00 97.9 69 20 128/69 (88) 99 08/29/18 09:00 Room Air 08/29/18 08:58 71 146/94 08/29/18 08:58 71 146/94 08/29/18 08:57 146/94 08/29/18 08:00 97.0 71 20 146/94 (111) 95 08/29/18 05:44 170/92 08/29/18 05:09 190/72 08/29/18 04:00 98.4 70 18 170/93 (118) 93 08/29/18 00:18 205/103 08/29/18 00:00 98.2 67 20 167/92 (117) 94 08/28/18 23:08 98.6 74 18 169/83 (111) 93 08/28/18 21:58 216/91 08/28/18 21:02 73 214/93 08/28/18 21:00 Room Air Intake and Output 08/28/18 08/29/18 19:00 07:00 Intake Total 1190.000 ml 590 ml Output Total 2000 ml Balance -810.000 ml 590 ml Intake Oral 860 ml 480 ml IV Total 330.000 ml 110 ml Output Hemodialysis UF 2000 ml # Voids 1 Laboratory Tests 08/29/18 05:54: Sodium Level 134L, Potassium Level 4.3, Chloride Level 98, Carbon Dioxide Level 26, Anion Gap 10, Blood Urea Nitrogen 37H, Creatinine 7.4H, Estimat Glomerular Filtration Rate 5.6, Glucose Level 92, Calcium Level 9.1, Total Bilirubin 0.6, Aspartate Amino Transf (AST/SGOT) 16, Alanine Aminotransferase (ALT/SGPT) 13, Alkaline Phosphatase 92, Total Protein 6.4, Albumin 2.4L, Globulin 4.0, Albumin/ Globulin Ratio 0.6L Height (Feet): 5 Height (Inches): 6.00 Weight (Pounds): 198 Lupe Escalona MD Aug 29, 2018 20:35
--- NOTE | 2018-08-29 23:35 | NUR ---
NURSE NOTES: Changed the left foot and right foot dressing. Applied optifoam on the right hand.
[2018-08-30] VITALS: BP 164/77
[2018-08-30] MEDS: HydrALAZINE 25mg tab ORAL SCH ×3 (00:18→12:54)
[2018-08-30] MEDS: HYDROcodone/Acetamin 5/325 tab ORAL PRN ×2 (01:28→15:41)
[2018-08-30] MEDS: Haloperidol 5mg/ml Inj IM PRN (02:21)
[2018-08-30 04:00] VITALS: BP 163/73
[2018-08-30] MEDS: HydrALAZINE 50mg tab ORAL PRN ×2 (04:24→16:19)
[2018-08-30] MEDS: Piperacillin/Tazobactam 2.25 GM in D5W 55 ML IVPB SCH ×2 (06:08→14:10)
--- NOTE | 2018-08-30 07:26 | NUR ---
NURSE NOTES: RN received pt in stable condition, alert in bed eating breakfast. No s/s of acute distress or SOB. Bed in low, locked position, call light within reach. Will continue plan of care.
--- NOTE | 2018-08-30 07:32 | NUR ---
HAND-OFF: Report given to CHEPE Zimmerman.
[2018-08-30] MEDS: LORazepam Inj 2mg/ml 1ml IV PRN ×2 (07:55→11:49)
[2018-08-30 08:00] VITALS: BP 176/79
[2018-08-30] MEDS: Nephrovite tab (Rena-Vite) ORAL SCH (08:09)
[2018-08-30] MEDS: Lisinopril 10mg tab ORAL SCH (08:09)
[2018-08-30] MEDS: Docusate 100mg cap ORAL SCH ×2 (08:10→12:54)
[2018-08-30] MEDS: Carvedilol 6.25mg Tab ORAL SCH (08:18)
[2018-08-30] MEDS ORDERED: Lisinopril 10mg tab ORAL SCH ×2 (10:00→18:00)
[2018-08-30] MEDS ORDERED: COREG6.25 MG ORAL (10:48)
[2018-08-30] MEDS ORDERED: AUGMENTIN 875-1 EAC1 ORAL (10:48)
[2018-08-30] MEDS ORDERED: HYDRALAZINE HCL25 M1 ORAL (10:48)
[2018-08-30] MEDS ORDERED: ZESTRIL10 M1 ORAL (10:48)
[2018-08-30] MEDS ORDERED: DOXYCYCLINE MO100 MG ORAL (10:48)
--- NOTE | 2018-08-30 10:53 | Discharge Instructions ---
Discharge Instructions Discharge Instructions Follow up with: pcp Call MD/Return to Hospital if: fevers, intractable vomiting and pain Diet: renal diabetic Resume Normal Activity?: Yes Activity: resume normal activities For Congestive Heart Failure Reminder Report to your physician any weight gain of 5 pounds or more in one week. Lupe Escalona MD Aug 30, 2018 10:53
--- NOTE | 2018-08-30 11:42 | NUR ---
DISCHARGE PLANNED PT WILL DC TO: [facility] [address] T [phone] FOR NURSE TO NURSE REPORT [facility] WILL DEFENSE TRAVEL ADMINISTRATOR [id number]
[2018-08-30 12:00] VITALS: BP 166/67
--- NOTE | 2018-08-30 12:46 | Hematology/Onc Progress Note ---
Assessment/Plan Assessment/Plan Assessment and Recs: # Anemia of chronic disease due to underlying chronic medical issues, multifactorial --> Anemia workup has been reviewed from previous/recent admission, Ferritin 427 --> No evidence of hemolysis is noted, peripheral smear has been reviewed. --> Hgb goal >7. Transfuse prn. Hgb 8.1 --> Epogen 4000 units sq TID, has been started, adjust per renal recs --> Medications that have been reviewed --> low threshold for gi evaluation in case has occult + --> Refusing labs today, to be discharged # Thrombocytopenia is likely reactive --> trend 143k-->179k # ESRD (end stage renal disease) on dialysis, cr 08-28 --> HD 3x a week as per renal --> as per renal # PNA --> previous admission # HTN / Pulmonary HTN --> controlled # Diabetes type 2. --> monitor BS levels The timing of this note does not necessarily reflect the time of the patient was seen. GREATLY APPRECIATE CONSULTATION. Subjective Constitutional: Denies: no symptoms, chills, fever, malaise, weakness, other Respiratory: Denies: no symptoms, cough, shortness of breath, SOB with excertion, SOB at rest, sputum, wheezing, other Gastrointestinal/Abdominal: Denies: no symptoms, abdomen distended, abdominal pain, black stools, tarry stools, blood in stool, constipated, diarrhea, difficulty swallowing, nausea, poor appetite, poor fluid intake, rectal bleeding , vomiting, other Genitourinary: Denies: no symptoms, burning, discharge, frequency, flank pain, hematuria, incontinence, pain, urgency, other Neurologic/Psychiatric: Denies: no symptoms, anxiety, depressed, emotional problems, headache, numbness, paresthesia, pre-existing deficit, seizure, tingling, tremors, weakness, other Endocrine: Denies: no symptoms, excessive sweating, flushing, intolerance to cold, intolerance to heat, increased hunger, increased thirst, increased urine, unexplained weight gain, unexplained weight loss, other Hematologic/Lymphatic: Denies: no symptoms, anemia, easy bleeding, easy bruising, adenopathy, other Allergies: Coded Allergies: No Known Allergies (Verified , 08/23/06) Subjective 08/27: is on zosyn as per id, ivl was placed this am 08/28: cellulitis is improved, on abx per id, hgb 7.4, stable 08/29: cbc remains at 7.4, repeat pending, on epo 08/30: no events, no fevers or chills noted, labs reviewed, dc planning Objective Objective Current Medications Medications (Trade) Dose Ordered Sig/Gabriele Route PRN Reason Start Time Stop Time Status Last Admin Dose Admin Acetaminophen (Tylenol) 650 mg Q4H PRN ORAL Mild Pain (Pain Scale 1-3) 08/23/18 17:00 09/22/18 16:59 Acetaminophen/ Hydrocodone Bitart ([place] 5/325) 1 tab Q4H PRN ORAL PAIN 4-10 08/23/18 17:00 08/30/18 16:59 08/30/18 01:28 Amlodipine Besylate (Norvasc) 10 mg DAILY ORAL 08/24/18 09:00 09/23/18 08:59 08/30/18 08:16 Atorvastatin Calcium (Lipitor) 40 mg BEDTIME ORAL 08/23/18 21:00 09/22/18 20:59 08/29/18 20:01 Bacitracin (Bacitracin 15gm tube) 1 applic PRN TOPIC 08/25/18 21:30 09/23/18 21:29 08/27/18 18:00 Bisacodyl (Dulcolax) 10 mg HSPRN PRN RECTAL Constipation 08/23/18 17:00 09/22/18 16:59 Carvedilol (Coreg) 6.25 mg EVERY 12 HOURS ORAL 08/29/18 09:00 09/22/18 20:59 08/29/18 20:01 Chlorhexidine Gluconate (Cassia-Hex 2%) 1 applic DAILY@1999 TOPIC 08/26/18 20:00 09/25/18 19:59 08/29/18 20:01 Clopidogrel Bisulfate (Plavix) 75 mg DAILY ORAL 08/24/18 09:00 09/23/18 08:59 08/29/18 08:58 Dextrose (Dextrose 50%) 25 ml Q30M PRN IV Hypoglycemia 08/23/18 17:00 09/22/18 16:59 Dextrose (Dextrose 50%) 50 ml Q30M PRN IV Hypoglycemia 08/23/18 17:00 09/22/18 16:59 Diphenhydramine HCl (Benadryl) 25 mg Q6H PRN ORAL Itching/Pruritis 08/23/18 17:00 09/22/18 16:59 08/30/18 04:33 Docusate Sodium (Colace) 100 mg TID ORAL 08/24/18 09:00 09/22/18 20:59 08/30/18 08:10 Enalaprilat (Vasotec) 1.25 mg Q6H PRN IV SBP>160 IF NOT TAKING PO 08/27/18 13:30 09/26/18 13:29 08/27/18 13:31 Epoetin Mau (Epoetin Mau(ESRD on dialysis)) 4,000 unit SUBQ 08/28/18 21:00 09/27/18 20:59 08/28/18 22:01 Gabapentin (Neurontin) 300 mg BID ORAL 08/23/18 18:00 09/22/18 17:59 08/30/18 08:09 Haloperidol Lactate (Haldol) 5 mg Q6H PRN IM Agitation 08/24/18 00:15 09/23/18 00:14 08/30/18 02:21 Hydralazine HCl (Apresoline) 25 mg Q6HR ORAL 08/28/18 18:00 09/27/18 17:59 08/30/18 06:06 Hydralazine HCl (Apresoline) 50 mg Q4H PRN ORAL SBP > 160mmHg 08/27/18 12:53 09/22/18 12:52 08/30/18 04:24 Levetiracetam (Keppra) 1,000 mg Q12HR ORAL 08/23/18 18:00 09/22/18 17:59 08/30/18 08:09 Levothyroxine Sodium (Synthroid) 50 mcg DAILY@0630 ORAL 08/24/18 06:30 09/23/18 06:29 08/30/18 06:06 Lisinopril (Zestril) 20 mg BID ORAL 08/30/18 18:00 09/28/18 08:59 Lorazepam (Ativan 2mg/ml 1ml) 1 mg Q4H PRN IV For Anxiety 08/28/18 16:28 09/04/18 16:27 08/30/18 11:49 Ondansetron HCl (Zofran) 4 mg Q6H PRN IVP Nausea & Vomiting 08/23/18 17:00 09/22/18 16:59 Piperacillin Sod/ Tazobactam Sod 2.25 gm/Dextrose 55 ml @ 110 mls/hr Q8HR IVPB 08/26/18 22:00 08/31/18 21:59 08/30/18 06:08 Polyethylene Glycol (Miralax) 17 gm HSPRN PRN ORAL Constipation 08/23/18 21:00 09/22/18 20:59 Quetiapine Fumarate (SEROquel) 400 mg QHS ORAL 08/23/18 21:00 09/22/18 20:59 08/29/18 20:00 Sevelamer Carbonate (Renvela) 1,600 mg TID ORAL 08/25/18 09:00 09/23/18 08:59 08/30/18 08:09 Vancomycin HCl (Vanco rx to dose) 1 ea DAILY PRN MISC Per rx protocol 08/23/18 18:00 09/22/18 17:59 Vitamin B Complex/ Vit C/Folic Acid (Nephrovite) 1 tab DAILY ORAL 08/24/18 09:00 09/23/18 08:59 08/30/18 08:09 Last 24 Hour Vital Signs Date Time Temp Pulse Resp B/P (MAP) Pulse Ox O2 Delivery O2 Flow Rate FiO2 08/30/18 12:00 98.1 64 18 166/67 (100) 97 08/30/18 10:00 159/63 08/30/18 09:00 Room Air 08/30/18 08:18 62 176/79 08/30/18 08:16 62 176/79 08/30/18 08:09 176/79 08/30/18 08:00 98.1 62 18 176/79 (111) 96 08/30/18 06:06 168/74 08/30/18 04:24 163/73 08/30/18 04:00 98.2 62 20 163/73 (103) 97 08/30/18 00:18 164/77 08/30/18 00:00 98.5 70 20 164/77 (106) 97 08/29/18 21:00 Room Air 08/29/18 20:01 66 183/78 08/29/18 20:00 97.6 66 20 183/78 (113) 97 08/29/18 20:00 183/78 08/29/18 17:29 122/67 08/29/18 17:28 122/67 08/29/18 16:00 98.1 63 20 122/67 (85) 97 08/29/18 12:23 128/69 08/29/18 12:00 97.9 69 20 128/69 (88) 99 08/29/18 09:00 Room Air 08/29/18 08:58 71 146/94 08/29/18 08:58 71 146/94 08/29/18 08:57 146/94 08/29/18 08:00 97.0 71 20 146/94 (111) 95 08/29/18 05:44 170/92 08/29/18 05:09 190/72 08/29/18 04:00 98.4 70 18 170/93 (118) 93 08/29/18 00:18 205/103 08/29/18 00:00 98.2 67 20 167/92 (117) 94 08/28/18 23:08 98.6 74 18 169/83 (111) 93 08/28/18 21:58 216/91 08/28/18 21:02 73 214/93 08/28/18 21:00 Room Air 08/28/18 20:00 98.1 73 19 214/93 (133) 93 08/28/18 18:00 160/79 (106) 08/28/18 17:10 174/89 08/28/18 16:00 98.6 74 18 174/89 (117) 93 Intake and Output 08/29/18 08/30/18 19:00 07:00 Intake Total 655 ml 660 ml Balance 655 ml 660 ml Intake Oral 600 ml 660 ml IV Total 55 ml # Voids 2 Labs Test 08/28/18 16:30 08/29/18 05:54 08/30/18 06:05 White Blood Count 7.8 K/UL (4.8-10.8) Red Blood Count 2.53 M/UL (4.20-5.40) Hemoglobin 7.4 G/DL (12.0-16.0) Hematocrit 23.9 % (37.0-47.0) Mean Corpuscular Volume 95 FL (80-99) Mean Corpuscular Hemoglobin 29.2 PG (27.0-31.0) Mean Corpuscular Hemoglobin Concent 30.9 G/DL (32.0-36.0) Red Cell Distribution Width 14.0 % (11.6-14.8) Platelet Count 179 K/UL (150-450) Mean Platelet Volume 7.3 FL (6.5-10.1) Neutrophils (%) (Auto) % (45.0-75.0) Lymphocytes (%) (Auto) % (20.0-45.0) Monocytes (%) (Auto) % (1.0-10.0) Eosinophils (%) (Auto) % (0.0-3.0) Basophils (%) (Auto) % (0.0-2.0) Differential Total Cells Counted 100 Neutrophils % (Manual) 76 % (45-75) Lymphocytes % (Manual) 11 % (20-45) Monocytes % (Manual) 7 % (1-10) Eosinophils % (Manual) 3 % (0-3) Basophils % (Manual) 2 % (0-2) Band Neutrophils 1 % (0-8) Platelet Estimate Adequate Platelet Morphology Normal Hypochromasia 1+ Anisocytosis 1+ Sodium Level 134 MMOL/L (136-145) Potassium Level 4.3 MMOL/L (3.5-5.1) Chloride Level 98 MMOL/L (98-107) Carbon Dioxide Level 26 MMOL/L (21-32) Anion Gap 10 mmol/L (5-15) Blood Urea Nitrogen 37 mg/dL (7-18) Creatinine 7.4 MG/DL (0.55-1.30) Estimat Glomerular Filtration Rate 5.6 mL/min (>60) Glucose Level 92 MG/DL (74-106) Calcium Level 9.1 MG/DL (8.5-10.1) Total Bilirubin 0.6 MG/DL (0.2-1.0) Aspartate Amino Transf (AST/SGOT) 16 U/L (15-37) Alanine Aminotransferase (ALT/SGPT) 13 U/L (12-78) Alkaline Phosphatase 92 U/L (46-116) Total Protein 6.4 G/DL (6.4-8.2) Albumin 2.4 G/DL (3.4-5.0) Globulin 4.0 g/dL Albumin/Globulin Ratio 0.6 (1.0-2.7) Random Vancomycin Level 23.1 ug/mL Height (Feet): 5 Height (Inches): 6.00 Weight (Pounds): 198 Objective General: no apparent distress, remains confused Head: normocephalic, atraumatic Eyes: bilateral eye PERRL ENT: dry mucus membranes Neck: currently supple Respiratory: no retraction, diminished breathing b/l CV: regular rate, rhythm GI: non tender, soft MSK: other - Significant edema with erythema both lower extremities, multiple abrasions in the upper extremity, cellulitis better Neurologic: responsive - appears confused Lymphatic: no adenopathy Odilon Min MD Aug 30, 2018 12:46
--- NOTE | 2018-08-30 13:34 | Nephrology Progress Note ---
Assessment/Plan Problem List: (1) ESRD (end stage renal disease) on dialysis (2) Anemia in chronic renal disease (3) Schizoaffective disorder, bipolar type (4) Diabetes mellitus, type II (5) Hypothyroidism Assessment - Cellulitis both LE - Metabolic Encephalopathy - End-stage renal disease, on hemodialysis. fistula right arm - Anemia of chronic kidney disease. - HTN / Pulmonary HTN - Diabetes type 2. -HypoThyroidism Others - Morbid obesity. - H/O Colon Cancer - H/O Hep C - H/O Depression and Bipolar disease - Psych disease uncoaporative --Bilateral leg numbness --diabetic neuropathy --L5-S1 disc protrusion Plan HD done 08/24 next 08/26 and then 08/28 then 08/30 skin care / Antibiotics per consultants Subjective ROS Limited/Unobtainable: No Constitutional: Reports: malaise Objective Objective Last 24 Hour Vital Signs Date Time Temp Pulse Resp B/P (MAP) Pulse Ox O2 Delivery O2 Flow Rate FiO2 08/30/18 12:54 166/67 08/30/18 12:00 98.1 64 18 166/67 (100) 97 08/30/18 10:00 159/63 08/30/18 09:00 Room Air 08/30/18 08:18 62 176/79 08/30/18 08:16 62 176/79 08/30/18 08:09 176/79 08/30/18 08:00 98.1 62 18 176/79 (111) 96 08/30/18 06:06 168/74 08/30/18 04:24 163/73 08/30/18 04:00 98.2 62 20 163/73 (103) 97 08/30/18 00:18 164/77 08/30/18 00:00 98.5 70 20 164/77 (106) 97 08/29/18 21:00 Room Air 08/29/18 20:01 66 183/78 08/29/18 20:00 97.6 66 20 183/78 (113) 97 08/29/18 20:00 183/78 08/29/18 17:29 122/67 08/29/18 17:28 122/67 08/29/18 16:00 98.1 63 20 122/67 (85) 97 Intake and Output 08/29/18 08/30/18 19:00 07:00 Intake Total 655 ml 660 ml Balance 655 ml 660 ml Intake Oral 600 ml 660 ml IV Total 55 ml # Voids 2 Laboratory Tests 08/30/18 06:05: Random Vancomycin Level 23.1 Height (Feet): 5 Height (Inches): 6.00 Weight (Pounds): 198 General Appearance: no apparent distress Objective no change Eamon Solis MD Aug 30, 2018 13:34
--- NOTE | 2018-08-30 14:11 | Surgery Progress Note ---
Surgery Progress Note Subjective Symptoms: improved, pain absent, tolerating diet, passing flatus Objective Last 24 Hour Vital Signs Date Time Temp Pulse Resp B/P (MAP) Pulse Ox O2 Delivery O2 Flow Rate FiO2 08/30/18 12:54 166/67 08/30/18 12:00 98.1 64 18 166/67 (100) 97 08/30/18 10:00 159/63 08/30/18 09:00 Room Air 08/30/18 08:18 62 176/79 08/30/18 08:16 62 176/79 08/30/18 08:09 176/79 08/30/18 08:00 98.1 62 18 176/79 (111) 96 08/30/18 06:06 168/74 08/30/18 04:24 163/73 08/30/18 04:00 98.2 62 20 163/73 (103) 97 08/30/18 00:18 164/77 08/30/18 00:00 98.5 70 20 164/77 (106) 97 08/29/18 21:00 Room Air 08/29/18 20:01 66 183/78 08/29/18 20:00 97.6 66 20 183/78 (113) 97 08/29/18 20:00 183/78 08/29/18 17:29 122/67 08/29/18 17:28 122/67 08/29/18 16:00 98.1 63 20 122/67 (85) 97 I&O Intake and Output 08/29/18 08/30/18 19:00 07:00 Intake Total 655 ml 660 ml Balance 655 ml 660 ml Intake Oral 600 ml 660 ml IV Total 55 ml # Voids 2 Dressing: dry Wound: clean Cardiovascular: RSR Respiratory: clear Abdomen: soft, non-tender, present bowel sounds Extremities: no tenderness, no cyanosis Laboratory Tests Test 08/30/18 06:05 Random Vancomycin Level 23.1 ug/mL Plan Problems: (1) Schizoaffective disorder, bipolar type (2) Lower extremity cellulitis Assessment & Plan: 57-year-old female with multiple medical comorbidities presenting from a half-way On admission patient identified to have multiple wounds Etiology of wounds potentially from trauma Patient a poor historian Patient noted to have multiple scabs on her upper and lower extremities Patient does have some distal ischemia in the toes No acute surgical intervention patient denies itching but continues to scratch wounds and open scabs distribution of wounds do not seem to be rash or skin disorder. mainly trauma related patient has blood blister noted on her right hand that she picks at causing drainage. will hold on skin biopsy for now will need to reinforce to patient not to pick at wounds, remove scabs, or deep scratching. appreciate psych input apply bacitracin ointment to scabs and scars on upper and lower extremity okay to wrap bilateral upper extremities with kerlix wrap to prevent patient from picking scabs and see if able to heal old traumatic wounds Offload pressure Turn every 2 hours We will monitor wounds while in hospital to ensure healing Nutritional optimization Thank you IV ABX (3) MDD (major depressive disorder), recurrent episode, moderate (4) Symptomatic anemia (5) Acute metabolic encephalopathy (6) CHF (congestive heart failure) (7) Bradycardia (8) Diabetes mellitus, type II (9) Hypothyroidism (10) Costochondritis (11) GERD (gastroesophageal reflux disease) (12) HTN (hypertension) (13) Anemia in chronic renal disease (14) Cellulitis of arm, right (15) Clotted renal dialysis arteriovenous graft (16) ESRD (end stage renal disease) on dialysis (17) Seizure disorder (18) Non-compliance with renal dialysis (19) Pulmonary edema (20) Pneumonia (21) History of colon cancer Vic Wise Aug 30, 2018 14:11
--- NOTE | 2018-08-30 14:54 | NUR ---
NURSE NOTES: RN gave report ot Tanya at [facility] prior to pt transfer. Tanya informed pt was admitted on 08/23 with lower extremity cellulites, she has wounds on both left and right toes and bilateral scratches and blisters. Pt also has chronic anemia. She was also informed pt has hx of seizures, Hep C, CHG, HTN, COPD, Anemia, DM, Hypothyroidism, ESRD - dialysis M, W, F, 2 L removed today. Pt discharge packet to be sent with pt and includes med list and wound care instructions. Pt has AV shunt on R U arm and is on a renal diet. Call back number provided for any additional info needed after pt discharge. IV and arm band removed. No belongings to account for. Discharge photo taken of wounds. [facility] transport expected at 1630. Addendum: 08/30/18 at 1638 by YEYO JOINER RN Pt BP elevated prior to discharge. Pt BP trends high; Hydralazine 50mg given PRN per order. Charge nurse aware. Pt alert and in stable condition with no sighs or symptoms of distress. Cleared for transport by [facility] personal. Pt left at time of this note, 1632.
--- NOTE | 2018-08-30 15:33 | Infectious Diseases Prog Note ---
Assessment/Plan Assessment/Plan ASSESSMENT AND PLAN: 1. bilateral UE/LE (leg/foot/arm/hand) possible infected wounds and cellulitis, necrosis/? gangrene noted - zosyn and vancomycin - day # 8 abx - consider transition to oral augmentin and doxycycline for 2 days more if discharge patient - cellulitis clinically improved, wounds stable - surgery f/u - wound care per protocol - monitor labs 2. The patient has encephalopathy. 3. Renal failure. 4. Hemodialysis. 5. End-stage renal disease. 6. Hypothyroidism. Continue with thyroid supplementation. 7. Diabetes type 2. Blood sugar treatment per primary. 8. Hypertension. 9. Hyperlipidemia. 10. Congestive heart failure, hx of pna 11. Chronic obstructive pulmonary disease. 12. Cardiovascular disease. 13. Hypothyroidism. 14. Obesity. 15. Cerebrovascular accident and weakness. 16. Bipolar disease. 17. She has no known drug allergies. 18. Social history negative. 19. Family history noncontributory. 20. MAR was noted. 21. Case discussed with RN. 22. Continue treatment per primary consultants. 23. time spent 30 plus minutes Subjective Constitutional: Denies: fever HEENT: Denies: congestion Respiratory: Denies: shortness of breath Cardiovascular: Denies: chest pain Gastrointestinal/Abdominal: Denies: nausea, vomiting, diarrhea Genitourinary: Reports: other - no waller Neurologic: Denies: headache Psychiatric: Denies: depression Skin: Denies: rash Hematologic: Denies: bleeding Musculoskeletal: Denies: pain Allergies: Coded Allergies: No Known Allergies (Verified , 08/23/06) Objective Vital Signs Last 24 Hour Vital Signs Date Time Temp Pulse Resp B/P (MAP) Pulse Ox O2 Delivery O2 Flow Rate FiO2 08/30/18 12:54 166/67 08/30/18 12:00 98.1 64 18 166/67 (100) 97 08/30/18 10:00 159/63 08/30/18 09:00 Room Air 08/30/18 08:18 62 176/79 08/30/18 08:16 62 176/79 08/30/18 08:09 176/79 08/30/18 08:00 98.1 62 18 176/79 (111) 96 08/30/18 06:06 168/74 08/30/18 04:24 163/73 08/30/18 04:00 98.2 62 20 163/73 (103) 97 08/30/18 00:18 164/77 08/30/18 00:00 98.5 70 20 164/77 (106) 97 08/29/18 21:00 Room Air 08/29/18 20:01 66 183/78 08/29/18 20:00 97.6 66 20 183/78 (113) 97 08/29/18 20:00 183/78 08/29/18 17:29 122/67 08/29/18 17:28 122/67 08/29/18 16:00 98.1 63 20 122/67 (85) 97 Height (Feet): 5 Height (Inches): 6.00 Weight (Pounds): 198 General Appearance: no acute distress HEENT: normocephalic, atraumatic, anicteric, mucous membranes moist Respiratory/Chest: lungs clear, normal breath sounds, no respiratory distress, no accessory muscle use Cardiovascular: normal rate, regular rhythm, no gallop/murmur Abdomen: soft, non tender, no organomegaly, non distended Genitourinary: other - no waller Extremities: no cyanosis, other - less cellulitis Skin: other - wounds dryer, stable Neurologic/Psychiatric: 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 Findings: Pulmonary vascular congestion demonstrated with prominent vascularity especially in the hilar regions and cardiomegaly. Similar findings seen on the previous occasion. IMPRESSION: No change. CHF Microbiology Date/Time Source Procedure Growth Status 08/23/18 15:30 Blood Blood Culture - Final NO GROWTH AFTER 5 DAYS Complete Labs Test 08/28/18 16:30 08/29/18 05:54 08/30/18 06:05 White Blood Count 7.8 K/UL (4.8-10.8) Red Blood Count 2.53 M/UL (4.20-5.40) Hemoglobin 7.4 G/DL (12.0-16.0) Hematocrit 23.9 % (37.0-47.0) Mean Corpuscular Volume 95 FL (80-99) Mean Corpuscular Hemoglobin 29.2 PG (27.0-31.0) Mean Corpuscular Hemoglobin Concent 30.9 G/DL (32.0-36.0) Red Cell Distribution Width 14.0 % (11.6-14.8) Platelet Count 179 K/UL (150-450) Mean Platelet Volume 7.3 FL (6.5-10.1) Neutrophils (%) (Auto) % (45.0-75.0) Lymphocytes (%) (Auto) % (20.0-45.0) Monocytes (%) (Auto) % (1.0-10.0) Eosinophils (%) (Auto) % (0.0-3.0) Basophils (%) (Auto) % (0.0-2.0) Differential Total Cells Counted 100 Neutrophils % (Manual) 76 % (45-75) Lymphocytes % (Manual) 11 % (20-45) Monocytes % (Manual) 7 % (1-10) Eosinophils % (Manual) 3 % (0-3) Basophils % (Manual) 2 % (0-2) Band Neutrophils 1 % (0-8) Platelet Estimate Adequate Platelet Morphology Normal Hypochromasia 1+ Anisocytosis 1+ Sodium Level 134 MMOL/L (136-145) Potassium Level 4.3 MMOL/L (3.5-5.1) Chloride Level 98 MMOL/L (98-107) Carbon Dioxide Level 26 MMOL/L (21-32) Anion Gap 10 mmol/L (5-15) Blood Urea Nitrogen 37 mg/dL (7-18) Creatinine 7.4 MG/DL (0.55-1.30) Estimat Glomerular Filtration Rate 5.6 mL/min (>60) Glucose Level 92 MG/DL (74-106) Calcium Level 9.1 MG/DL (8.5-10.1) Total Bilirubin 0.6 MG/DL (0.2-1.0) Aspartate Amino Transf (AST/SGOT) 16 U/L (15-37) Alanine Aminotransferase (ALT/SGPT) 13 U/L (12-78) Alkaline Phosphatase 92 U/L (46-116) Total Protein 6.4 G/DL (6.4-8.2) Albumin 2.4 G/DL (3.4-5.0) Globulin 4.0 g/dL Albumin/Globulin Ratio 0.6 (1.0-2.7) Random Vancomycin Level 23.1 ug/mL Laboratory Tests Test 08/30/18 06:05 Random Vancomycin Level 23.1 ug/mL Current Medications Medications (Trade) Dose Ordered Sig/Gabriele Route PRN Reason Start Time Stop Time Status Last Admin Dose Admin Acetaminophen (Tylenol) 650 mg Q4H PRN ORAL Mild Pain (Pain Scale 1-3) 08/23/18 17:00 09/22/18 16:59 Acetaminophen/ Hydrocodone Bitart ([place] 5/325) 1 tab Q4H PRN ORAL PAIN 4-10 08/23/18 17:00 08/30/18 16:59 08/30/18 01:28 Amlodipine Besylate (Norvasc) 10 mg DAILY ORAL 08/24/18 09:00 09/23/18 08:59 08/30/18 08:16 Atorvastatin Calcium (Lipitor) 40 mg BEDTIME ORAL 08/23/18 21:00 09/22/18 20:59 08/29/18 20:01 Bacitracin (Bacitracin 15gm tube) 1 applic PRN TOPIC 08/25/18 21:30 09/23/18 21:29 08/27/18 18:00 Bisacodyl (Dulcolax) 10 mg HSPRN PRN RECTAL Constipation 08/23/18 17:00 09/22/18 16:59 Carvedilol (Coreg) 6.25 mg EVERY 12 HOURS ORAL 08/29/18 09:00 09/22/18 20:59 08/29/18 20:01 Chlorhexidine Gluconate (Cassia-Hex 2%) 1 applic DAILY@2000 TOPIC 08/26/18 20:00 09/25/18 19:59 08/29/18 20:01 Clopidogrel Bisulfate (Plavix) 75 mg DAILY ORAL 08/24/18 09:00 09/23/18 08:59 08/29/18 08:58 Dextrose (Dextrose 50%) 25 ml Q30M PRN IV Hypoglycemia 08/23/18 17:00 09/22/18 16:59 Dextrose (Dextrose 50%) 50 ml Q30M PRN IV Hypoglycemia 08/23/18 17:00 09/22/18 16:59 Diphenhydramine HCl (Benadryl) 25 mg Q6H PRN ORAL Itching/Pruritis 08/23/18 17:00 09/22/18 16:59 08/30/18 04:33 Docusate Sodium (Colace) 100 mg TID ORAL 08/24/18 09:00 09/22/18 20:59 08/30/18 12:54 Enalaprilat (Vasotec) 1.25 mg Q6H PRN IV SBP>160 IF NOT TAKING PO 08/27/18 13:30 09/26/18 13:29 08/27/18 13:31 Epoetin Mau (Epoetin Mau(ESRD on dialysis)) 4,000 unit SUN- SUBQ 08/28/18 21:00 09/27/18 20:59 08/28/18 22:01 Gabapentin (Neurontin) 300 mg BID ORAL 08/23/18 18:00 09/22/18 17:59 08/30/18 08:09 Haloperidol Lactate (Haldol) 5 mg Q6H PRN IM Agitation 08/24/18 00:15 09/23/18 00:14 08/30/18 02:21 Hydralazine HCl (Apresoline) 25 mg Q6HR ORAL 08/28/18 18:00 09/27/18 17:59 08/30/18 12:54 Hydralazine HCl (Apresoline) 50 mg Q4H PRN ORAL SBP > 160mmHg 08/27/18 12:53 09/22/18 12:52 08/30/18 04:24 Levetiracetam (Keppra) 1,000 mg Q12HR ORAL 08/23/18 18:00 09/22/18 17:59 08/30/18 08:09 Levothyroxine Sodium (Synthroid) 50 mcg DAILY@0630 ORAL 08/24/18 06:30 09/23/18 06:29 08/30/18 06:06 Lisinopril (Zestril) 20 mg BID ORAL 08/30/18 18:00 09/28/18 08:59 Lorazepam (Ativan 2mg/ml 1ml) 1 mg Q4H PRN IV For Anxiety 08/28/18 16:28 09/04/18 16:27 08/30/18 11:49 Ondansetron HCl (Zofran) 4 mg Q6H PRN IVP Nausea & Vomiting 08/23/18 17:00 09/22/18 16:59 Piperacillin Sod/ Tazobactam Sod 2.25 gm/Dextrose 55 ml @ 110 mls/hr Q8HR IVPB 08/26/18 22:00 08/31/18 21:59 08/30/18 14:10 Polyethylene Glycol (Miralax) 17 gm HSPRN PRN ORAL Constipation 08/23/18 21:00 09/22/18 20:59 Quetiapine Fumarate (SEROquel) 400 mg QHS ORAL 08/23/18 21:00 09/22/18 20:59 08/29/18 20:00 Sevelamer Carbonate (Renvela) 1,600 mg TID ORAL 08/25/18 09:00 09/23/18 08:59 08/30/18 12:55 Vancomycin HCl (Vanco rx to dose) 1 ea DAILY PRN MISC Per rx protocol 08/23/18 18:00 09/22/18 17:59 Vitamin B Complex/ Vit C/Folic Acid (Nephrovite) 1 tab DAILY ORAL 08/24/18 09:00 09/23/18 08:59 08/30/18 08:09 Nehal Nolasco MD Aug 30, 2018 15:33
[2018-08-30] MEDS ORDERED: NS 275ml ONE (15:59)
[2018-08-30] MEDS ORDERED: Tubing IV Secondary IV ONE (15:59)
[2018-08-30 16:00] VITALS: BP 182/75
[2018-08-30 16:19] VITALS: BP 182/75
--- NOTE | 2018-08-30 18:52 | Discharge Summary ---
Discharge Summary Hospital Course Date of Admission Aug 23, 2018 at 15:45 Date of Discharge Aug 30, 2018 at 16:00 Admitting Diagnosis lower extremity cellulitis HPI Cris Zuluaga is a 57 year old female who was admitted on Aug 23, 2018 at 15:45 for Lower Extremity Cellulitis Hospital Course #Diffuse wounds on all extremities - improving - Appreciate surgery consultation and noted recommendations: apply bacitracin ointment to scabs and scars on upper and lower extremity okay to wrap bilateral upper extremities with kerlix wrap to prevent patient from picking scabs and see if able to heal old traumatic wounds - Antibiotics by ID service. Patient has poor IV access, likely transition to PO abx in AM, if not PICC will be needed #Acute on chronic anemia #Anemia of ESRD #ESRD -Patient may benefit from PRBC transfusion if Hb <7 -Appreciate nephrology consultation. -monitor CBC and BMP -REFUSING HD as outpatient. - HD per renal #Chronic diastolic CHF #HTN #Hyperlipidemia -fluid management via HD, Planned for today 08/24 -continue minoxidil, clonidine, Coreg, Norvasc and Lipitor #Type 2 DM #Obesity -continue Januvia -lispro SS #Epilepsy -continue Keppra #Bipolar and anxiety -continue Seroquel -psych consult appreciated #Hypothyroidism -continue levothyroxine # Cellulitis of upper extremities - Zosyn and Vancomycin started. Anticipate IV course. - Monitor response to therapy - Surgery consult appreciated. - supportive care # Disposition - Patient is a resident at [facility] SCD Full Code I spent 70 minutes on this patient's case, and 35 minutes was dedicated to counseling and/or care coordination. Discharge Discharge Disposition Patient was discharged to Discharge Instructions Discharge Instructions Follow up with: pcp Call MD/Return to Hospital if: fevers, intractable vomiting and pain Activity: resume normal activities Lupe Escaolna MD Aug 30, 2018 18:52
== END 2018-08-30 16:00 | DRG 602 ==
LOC: EDUNIT# 13:05 → EDBD 13:05 → EMR 13:50 → EDBEDREQ 15:44 → 4E 15:45 → EDBEDREQ 16:26
PROC: 5A1D70Z Performance of Urinary Filtration, Intermittent, Less than 6 Hours Per Day (ICD-10-PCS; principal; 2018-08-30)
DX: L03.116 Cellulitis of left lower limb (principal); N18.6 End stage renal disease; G93.41 Metabolic encephalopathy; I13.2 Hypertensive heart and chronic kidney disease with heart failure and with stage 5 chronic kidney disease, or end stage renal disease; I50.32 Chronic diastolic (congestive) heart failure; L03.114 Cellulitis of left upper limb; L03.113 Cellulitis of right upper limb; F33.1 Major depressive disorder, recurrent, moderate; L03.115 Cellulitis of right lower limb; Z99.2 Dependence on renal dialysis; Z91.15 Patient's noncompliance with renal dialysis; F25.0 Schizoaffective disorder, bipolar type; S41.102A Unspecified open wound of left upper arm, initial encounter; S41.101A Unspecified open wound of right upper arm, initial encounter; S81.802A Unspecified open wound, left lower leg, initial encounter; S81.801A Unspecified open wound, right lower leg, initial encounter; X58.XXXA Exposure to other specified factors, initial encounter; Z68.32 Body mass index [BMI] 32.0-32.9, adult; E03.9 Hypothyroidism, unspecified; E78.5 Hyperlipidemia, unspecified; G40.909 Epilepsy, unspecified, not intractable, without status epilepticus; F41.9 Anxiety disorder, unspecified; D63.1 Anemia in chronic kidney disease; Z85.038 Personal history of other malignant neoplasm of large intestine; M94.0 Chondrocostal junction syndrome [Tietze]; E11.40 Type 2 diabetes mellitus with diabetic neuropathy, unspecified; I27.20 Pulmonary hypertension, unspecified; Z86.19 Personal history of other infectious and parasitic diseases; E66.9 Obesity, unspecified
CPT/HCPCS: 36415; 71045; 71046; 80048; 80053; 80061; 80202; 80299; 82140; 82607; 82728; 82746; 82977; 83036; 83540; 83550; 83605; 83735; 83880; 84100; 84443; 84550; 85007; 85025; 86140; 86706; 87040; 96361; 96365; 96372; 99285

== ENCOUNTER 2018-09-05 18:00 | Inpatient (IN) | payer MEDICARE, MEDICAID ==
[~2018-09-05] VITALS: Ht 172.7 cm; Wt 86.0 kg
[~2018-09-05 18:00] MED LIST changes: +BREO ELLIPTA 11 EACH IH; +CALCIUM ACETAT667 M1 PO; +COREG6.25 MG ORAL; +DOXYCYCLINE MO100 MG ORAL; +HYDRALAZINE HCL25 M1 ORAL; +ZESTRIL10 M1 ORAL
--- NOTE | 2018-09-05 18:00 | NUR ---
ED Nurse Note: Patient thalia from [facility] c/o missed dialysis for 2 days. at time of arrival patient is drowsy and presents with a disheveled appearance. patient has multiple skin tears ranging from bilateral toes and to her arms. patient also presents with a reddened coccyx area. patient presents with skin tears on bilateral arms as well. patient's AV shunt is located on the upper right arm. has dialysis Sunday, , Sunday
--- NOTE | 2018-09-05 18:01 | NUR ---
ED Nurse Note: ceasar presents with skin tears on bilateral big toes
[2018-09-05 18:05] VITALS: BP 170/85
--- NOTE | 2018-09-05 18:16 | Emergency Room Report ---
History of Present Illness General Chief Complaint: Altered Level of Consciousness Present Illness HPI 57 year old female with ESRD on HD, DM2, HTN, HL, chronic diastolic CHF, COPD, PVD, hypothyroidism, obesity, bipolar disorder, hx of CVA, resents with AMS x3 days, patient is not taking her dialysis on Sunday nor , patient is not answering any questions, she was sent in from the custodial for reduced mentation, and missed dialysis Allergies: Coded Allergies: No Known Allergies (Verified , 08/23/06) Patient History Limited by: medical condition - ams Past Medical History: see triage record Last Menstrual Period: unk Now: No Reviewed Nursing Documentation: PMH: Agreed; PSxH: Agreed Nursing Documentation-PMH Hx Cardiac Problems: Yes Hx Hypertension: Yes Hx COPD: Yes Hx Diabetes: Yes Hx Cancer: Yes Hx Gastrointestinal Problems: Yes Hx Dialysis: Yes - MWF Hx Neurological Problems: Yes Hx Seizures: Yes Review of Systems All Other Systems: limited - Patient not answering questions Physical Exam Vital Signs Date Time Temp Pulse Resp B/P (MAP) Pulse Ox O2 Delivery O2 Flow Rate FiO2 09/05/18 17:56 95.4 71 22 167/70 (102) 100 Room Air Sp02 EP Interpretation: reviewed, normal General Appearance: well appearing, no apparent distress, obese, other - Sleeping comfortably Head: normocephalic, atraumatic Eyes: bilateral eye PERRL, bilateral eye EOMI ENT: uvula midline, moist mucus membranes Neck: supple, thyroid normal, supple/symm/no masses Respiratory: no respiratory distress, no retraction, no accessory muscle use, decreased breath sounds Cardiovascular #1: normal peripheral pulses, regular rate, rhythm, no edema, no gallop, no murmur Gastrointestinal: non tender, soft, no guarding, no rebound Musculoskeletal: normal inspection Neurologic: alert, oriented - Oriented to self, not answering questions, falls back asleep in bed Skin: no rash, warm/dry Medical Decision Making Diagnostic Impression: Primary Impression: Altered level of consciousness Additional Impression: Pulmonary edema ER Course 57-year-old female history of mental illness, history of noncompliance presents with hyperkalemia missed dialysis x2 days. Patient's AMS may be secondary to her mental illness, versus infection, versus electrode imbalance, patient found to be hyperkalemic 6.5, Kayexalate was started, patient is a difficult access, is uncooperative, attempted multiple IVs. Pt with history of her removing her IVs, the risks were greater than the benefits of inserting a central line. Spoke with Dr. Monsivais, we will provide patient with Kayexalate, they will order a PICC line for upstairs, she will receive dialysis in the morning, she has no EKG changes She will be admitted for hyperkalemia chronic pulmonary edema and AMS Laboratory Tests Test 09/05/18 19:00 09/05/18 19:08 09/05/18 19:09 Urine Color Pale yellow Urine Appearance Clear Urine pH 8 (4.5-8.0) Urine Specific [place] 1.010 (1.005-1.035) Urine Protein 4+ (NEGATIVE) H Urine Glucose (UA) 2+ (NEGATIVE) H Urine Ketones Negative (NEGATIVE) Urine Blood 2+ (NEGATIVE) H Urine Nitrite Negative (NEGATIVE) Urine Bilirubin Negative (NEGATIVE) Urine Urobilinogen Normal MG/DL (0.0-1.0) Urine Leukocyte Esterase Negative (NEGATIVE) Urine RBC 2-4 /HPF (0 - 2) H Urine WBC 0-2 /HPF (0 - 2) Urine Squamous Epithelial Cells Occasional /LPF Urine Bacteria None /HPF (NONE) White Blood Count 7.9 K/UL (4.8-10.8) Red Blood Count 2.60 M/UL (4.20-5.40) L Hemoglobin 7.9 G/DL (12.0-16.0) L Hematocrit 24.0 % (37.0-47.0) L Mean Corpuscular Volume 92 FL (80-99) Mean Corpuscular Hemoglobin 30.6 PG (27.0-31.0) Mean Corpuscular Hemoglobin Concent 33.1 G/DL (32.0-36.0) Red Cell Distribution Width 13.8 % (11.6-14.8) Platelet Count 193 K/UL (150-450) Mean Platelet Volume 6.8 FL (6.5-10.1) Neutrophils (%) (Auto) % (45.0-75.0) Lymphocytes (%) (Auto) % (20.0-45.0) Monocytes (%) (Auto) % (1.0-10.0) Eosinophils (%) (Auto) % (0.0-3.0) Basophils (%) (Auto) % (0.0-2.0) Differential Total Cells Counted 100 Neutrophils % (Manual) 74 % (45-75) Lymphocytes % (Manual) 16 % (20-45) L Monocytes % (Manual) 6 % (1-10) Eosinophils % (Manual) 2 % (0-3) Basophils % (Manual) 2 % (0-2) Band Neutrophils 0 % (0-8) Platelet Estimate Adequate Platelet Morphology Normal Polychromasia 1+ Anisocytosis 1+ Macrocytosis 1+ Prothrombin Time 12.0 SEC (9.30-11.50) H Prothrombin Time INR 1.1 (0.9-1.1) PTT 28 SEC (23-33) Sodium Level 131 MMOL/L (136-145) L Potassium Level 6.5 MMOL/L (3.5-5.1) *H Chloride Level 94 MMOL/L (98-107) L Carbon Dioxide Level 21 MMOL/L (21-32) Anion Gap 17 mmol/L (5-15) H Blood Urea Nitrogen 81 mg/dL (7-18) H Creatinine 10.9 MG/DL (0.55-1.30) H Estimate Glomerular Filtration Rate 3.6 mL/min (>60) Glucose Level 86 MG/DL (74-106) Lactic Acid Level 0.60 mmol/L (0.4-2.0) Calcium Level 9.3 MG/DL (8.5-10.1) Phosphorus Level 8.7 MG/DL (2.5-4.9) H Magnesium Level 2.2 MG/DL (1.8-2.4) Total Bilirubin 0.6 MG/DL (0.2-1.0) Aspartate Amino Transferase (AST) 26 U/L (15-37) Alanine Aminotransferase (ALT) 12 U/L (12-78) Alkaline Phosphatase 115 U/L (46-116) Total Creatine Kinase 321 U/L (26-308) H Creatine Kinase MB 15.8 NG/ML (0.0-3.6) H Creatine Kinase MB Relative Index 4.9 Troponin I 0.023 ng/mL (0.000-0.056) Pro-B-Type Natriuretic Peptide > 84987 pg/mL (0-125) H Total Protein 6.8 G/DL (6.4-8.2) Albumin 2.6 G/DL (3.4-5.0) L Globulin 4.2 g/dL Albumin/Globulin Ratio 0.6 (1.0-2.7) L Lipase 259 U/L (73-393) Venous Blood pH 7.366 Venous Blood Partial Pressure CO2 36.5 Venous Blood Partial Pressure O2 67.2 Venous Blood HCO3 20.4 Venous Blood Total Carbon Dioxide 36.5 Venous Bld O2 Saturation (Measured) 67.2 Venous Blood Oxygen Saturation 90.5 Venous Blood Base Excess -4.4 Methemoglobin 0.4 Sodium (Blood Gas) EKG Diagnostic Results EKG Time: 19:10 EP Interpretation: Rate 70, QTc 436, no acute ST elevations, no peak T waves, rtaxis deviation Rate: normal Rhythm: NSR ST Segments: no acute changes Rhythm Strip Diag. Results Rhythm Strip Time: 21:06 EP Interpretation: yes Rate: 71 Rhythm: NSR, no PVC's, no ectopy Chest X-Ray Diagnostic Results Chest X-Ray Diagnostic Results : Chest X-Ray Ordered: Yes # of Views/Limited/Complete: 1 View Indication: Shortness of Breath EP Interpretation: Yes Interpretation: other - Bilateral pulmonary edema Impression: Other - Bilateral pulmonary edema Last Vital Signs Date Time Temp Pulse Resp B/P (MAP) Pulse Ox O2 Delivery O2 Flow Rate FiO2 09/05/18 17:56 95.4 71 22 167/70 (102) 100 Room Air Disposition: ADMITTED INPATIENT Condition: Stable Jhonny De León M.D. Sep 05, 2018 18:16
--- NOTE | 2018-09-05 19:30 | NUR ---
ED Nurse Note: multiple nurses tried to start IV on patient, unable to do so. Dr. De León has also tried. unable to do so.
[2018-09-05 19:36] LABS: APPEARANCE,URINE CLEAR; BILIRUBIN, URINE NEGATIVE (NEGATIVE); COLOR,URINE PALE YELLOW; GLUCOSE, URINE (UA) 2+ (NEGATIVE); KETONES,URINE NEGATIVE (NEGATIVE); LEUKOCYTE ESTERASE ,URINE NEGATIVE (NEGATIVE); NITRITE,URINE NEGATIVE (NEGATIVE); PH,URINE 8 (4.5-8.0); PROTEIN,URINE 4+ (NEGATIVE); UROBILINOGEN,URINE NORMAL MG/DL (0.0-1.0)
[2018-09-05 19:41] LABS: HEMOGLOBIN 7.9 G/DL (12.0-16.0); MEAN CORPUSCULAR VOLUME 92 FL (80-99); PLATELET COUNT 193 K/UL (150-450); RED CELL DISTRIBUTION WIDTH 13.8 % (11.6-14.8); WHITE BLOOD COUNT 7.9 K/UL (4.8-10.8)
[2018-09-05 19:52] LABS: INR 1.1 (0.9-1.1)
[2018-09-05 19:59] LABS: ALANINE AMINOTRANSFERASE 12 U/L (12-78); ALBUMIN 2.6 G/DL (3.4-5.0); ALBUMIN/GLOBULIN RATIO 0.6 (1.0-2.7); ALKALINE PHOSPHATASE 115 U/L (46-116); ANION GAP 17 mmol/L (5-15); ASPARTATE AMINO TRANSFERASE 26 U/L (15-37); BILIRUBIN,TOTAL 0.6 MG/DL (0.2-1.0); BLOOD UREA NITROGEN 81 mg/dL (7-18); CALCIUM 9.3 MG/DL (8.5-10.1); CARBON DIOXIDE 21 MMOL/L (21-32); CHLORIDE 94 MMOL/L (98-107); CKMB 15.8 NG/ML (0.0-3.6); CREATINE KINASE 321 U/L (26-308); CREATININE 10.9 MG/DL (0.55-1.30); PHOSPHORUS 8.7 MG/DL (2.5-4.9); SODIUM 131 MMOL/L (136-145)
[2018-09-05 20:02] LABS: POTASSIUM 6.5 MMOL/L (3.5-5.1)
[2018-09-05] MEDS ORDERED: Sodium Polystyrene Sulfon/Sorb 15gm/60ml Susp ORAL ONE (20:15)
[2018-09-05] MEDS ORDERED: LORazepam Inj 2mg/ml 1ml IV PRN (20:30)
[2018-09-05] MEDS ORDERED: Milk of Magnesia 30ml Ud ORAL PRN (20:30)
[2018-09-05] MEDS ORDERED: Morphine Sulfate 2mg/ml Inj(IV/IM USE ONLY) IVP PRN (20:30)
[2018-09-05] MEDS ORDERED: Ipratropium 0.02% Inh Soln 2.5ml UD HHN PRN (20:30)
--- NOTE | 2018-09-05 20:30 | NUR ---
ED Nurse Note: Dr. De León has talked to Dr.vu culver to send patient up with no IV. will be dialyzed in the morning
[2018-09-05] MEDS ORDERED: Docusate 100mg cap ORAL SCH (21:00)
[2018-09-05 21:57] VITALS: BP 137/75
[2018-09-05] MEDS ORDERED: Atorvastatin 20mg tab ORAL SCH (23:00)
--- NOTE | 2018-09-05 23:00 | NUR ---
TRANSFER TO FLOOR: Patient transferred to [facility] as ordered, per . Report given to CHEPE Melgar
--- NOTE | 2018-09-05 23:10 | NUR ---
NURSE NOTES: Patient was brought up room 238 from ED accompanied by Scooter MO, and KIMBERLY Ornelas via alec. Routine admission care provided. Noted with AV shunt to right arm. Patient is on room air sp02 97%. Patient appears to be lethargic, but able to make needs known. Noted with Unstageable wounds to bilateral toes. pictures taken. Bed is in lowest position. Call light is within easy reach. will continue to monitor.
--- NOTE | 2018-09-05 23:20 | NUR ---
NURSE NOTES: Called [facility] [phone], spoke to Arin. dialysis scheduled for 09/06/18
[2018-09-06] VITALS: BP 160/88
[2018-09-06] MEDS: HydrALAZINE 25mg tab ORAL SCH ×2 (00:26→05:33)
[2018-09-06 04:00] VITALS: BP 158/80
[2018-09-06 04:44] LABS: HEMATOCRIT 23.8 % (37.0-47.0); HEMOGLOBIN 7.7 G/DL (12.0-16.0); MEAN CORPUSCULAR VOLUME 94 FL (80-99); PLATELET COUNT 177 K/UL (150-450); RED BLOOD COUNT 2.54 M/UL (4.20-5.40); WHITE BLOOD COUNT 8.4 K/UL (4.8-10.8)
[2018-09-06 05:09] LABS: ALANINE AMINOTRANSFERASE 12 U/L (12-78); ALBUMIN 2.6 G/DL (3.4-5.0); ALBUMIN/GLOBULIN RATIO 0.8 (1.0-2.7); ALKALINE PHOSPHATASE 113 U/L (46-116); ANION GAP 16 mmol/L (5-15); ASPARTATE AMINO TRANSFERASE 26 U/L (15-37); BILIRUBIN,TOTAL 0.5 MG/DL (0.2-1.0); BLOOD UREA NITROGEN 86 mg/dL (7-18); CALCIUM 9.1 MG/DL (8.5-10.1); CARBON DIOXIDE 22 MMOL/L (21-32); CHLORIDE 93 MMOL/L (98-107); CREATININE 11.2 MG/DL (0.55-1.30); SODIUM 131 MMOL/L (136-145)
[2018-09-06 05:14] LABS: PHOSPHORUS 9.4 MG/DL (2.5-4.9)
[2018-09-06 05:35] LABS: POTASSIUM 6.4 MMOL/L (3.5-5.1)
--- NOTE | 2018-09-06 07:21 | NUR ---
HAND-OFF: Report given to CHEEP Corona.
--- NOTE | 2018-09-06 07:54 | NUR ---
NURSE NOTES: Received pt from Talia Green RN. Pt is AAOx1, SR on home help aide, on RA. LUISANA shunt and kin alterations noted. Pt has no IV access- IV access attempted multiple times and not attainable per Talia. Pt is due for dialysis today and Dr. Rudolph is aware of potassium of 6.4 per Maru. Bed is in lowest position with alarm on, side rails up x3 and padded per seizure precaution, call light within reach. Will continue to monitor pt.
[2018-09-06 08:00] VITALS: BP 162/71
[2018-09-06] MEDS: Calcium Acetate 667mg Tab ORAL SCH ×3 (09:00→17:38)
[2018-09-06] MEDS: Lomotil 2.5mg tab ORAL SCH ×2 (09:00→17:37)
[2018-09-06] MEDS ORDERED: Heparin 5000 units/ml inj SUBQ SCH (09:00)
[2018-09-06] MEDS: Docusate 100mg cap ORAL SCH ×2 (09:00→17:37)
[2018-09-06] MEDS: Nephrovite tab (Rena-Vite) ORAL SCH (09:00)
[2018-09-06] MEDS ORDERED: Lisinopril 20mg tab ORAL SCH (09:00)
[2018-09-06] MEDS: Carvedilol 6.25mg Tab ORAL SCH ×2 (09:00→17:37)
--- NOTE | 2018-09-06 09:33 | Consultation ---
Consult Note Consult Note Back again for missing HD ( refusing dialysis) hence becoming altered- Has high serum K examined essentially no change in exam Assessment/Plan Presents with Encephalopathy due to missing dialysis 1) ESRD (end stage renal disease) on dialysis (2) Anemia in chronic renal disease (3) Schizoaffective disorder, bipolar type (4) Diabetes mellitus, type II (5) Hypothyroidism - Cellulitis both LE - Metabolic Encephalopathy - End-stage renal disease, on hemodialysis. fistula right arm - Anemia of chronic kidney disease. - HTN / Pulmonary HTN - Diabetes type 2. -HypoThyroidism Others - Morbid obesity. - H/O Colon Cancer - H/O Hep C - H/O Depression and Bipolar disease - Psych disease uncoaporative --Bilateral leg numbness --diabetic neuropathy --L5-S1 disc protrusion Plan HD done ordered skin care / Antibiotics per consultants Eamon Solis MD Sep 06, 2018 09:33
--- NOTE | 2018-09-06 09:41 | NUR ---
NURSE NOTES: Dr Odilon Min just came in to see pt and noted Hgb level of 7.7- no oders for blood transfusion given at this time and parameters for heparin obtained. Heparin will be held for Hgb<[address]
--- NOTE | 2018-09-06 09:42 | NUR ---
NURSE NOTES: Pt is refusing all oral medications at this time. Attempting IV access at this time.
--- NOTE | 2018-09-06 10:12 | Diagnostic Imaging Report ---
Indication: Chest pain Technique: One view of the chest Comparison: 08/29/2018 Findings: Again demonstrated is cardiomegaly. There is bilateral interstitial and airspace edema which, allowing for differences in exposure technique, is probably somewhat worse than on the prior study. Impression: Cardiomegaly, with bilateral interstitial and airspace edema This agrees with the preliminary interpretation provided by the emergency room physician
--- NOTE | 2018-09-06 10:20 | NUR ---
NURSE NOTES: Dr. Solis came in to see pt and is aware of potassium level of 6.4 today, BP, as well lack of IV access (unable to attain) and inability to administer oral meds.
--- NOTE | 2018-09-06 11:10 | NUR ---
NURSE NOTES: Vein finder obtained, still unable to obtain IV access. Charge Nurse Cara will attempt to start IV.
--- NOTE | 2018-09-06 11:43 | NUR ---
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 PULMONARY EDEMA VS: BP 170/85, P 71, T 95.3, RR 22, SpO2 100 RBC 2.60, H&H 7.9/24.0, Na 131, K 6.5, BUN 81, CR 10.9 IS:KAYEXALATE 60gm ADMITTED TO [facility] DCP: RETURN TO [facility]
[2018-09-06 12:00] VITALS: BP 159/46
[2018-09-06] MEDS: HydrALAZINE 50mg tab ORAL SCH ×3 (12:00→23:21)
--- NOTE | 2018-09-06 12:13 | NUR ---
NURSE IV access obtained in [facility] (24g IV) by CHEPE Marroquin.
--- NOTE | 2018-09-06 12:45 | NUR ---
NURSE NOTES: Left a message for Dr. Rudolph to inform him IV was obtained and need rx for IV keppra and antihypertensive. Left message with Gigi. Received call back from Bree Castillo (covering for Dr. Rudolph today) with new order for IV keppra and hydralazine. Per Dr. Oviedo, do not administer any PO meds until he arrives this afternoon to review med list and assess pt.
--- NOTE | 2018-09-06 13:48 | History and Physical ---
History of Present Illness General Date patient seen: Sep 06, 2018 Time patient seen: 12:00 Reason for Hospitalization: Altered Level of Consciousness Present Illness HPI 57 y/o F known to me from SNF and [facility] [place] [facility] last admission who returns to the ED after missing 2 sessions of HD ( Sunday and ). She was noted to have confusion, lethargy at SNF and sent to the ER. K was > 6 on admission and ER management, admission and renal consult were requested. She has chronic bilateral arm wounds, folliculitis and selft trauma. Prior consult with Dr. Wise. Currently, she follows simple commands, denies pain. Reports pruritus in the arms and HD is pending for this afternoon. Allergies: Coded Allergies: No Known Allergies (Verified , 08/23/06) Medication History Scheduled Amlodipine Besylate* (Amlodipine Besylate*), 10 MG ORAL BID, (Reported) Amoxicillin/Potassium Clav 875-125* (Augmentin 875-125 Tablet*), 1 TAB ORAL TWICE A DAY Atorvastatin Calcium* (Atorvastatin Calcium*), 40 MG ORAL BEDTIME, (Reported) Calcium Acetate (Calcium Acetate), 667 MG PO THREE TIMES A DAY, (Reported) Carvedilol (Coreg), 6.25 MG ORAL EVERY 12 HOURS Clopidogrel Bisulfate* (Plavix*), 75 MG ORAL BID, (Reported) Docusate Sodium* (Colace*), 100 MG ORAL TWICE A DAY, (Reported) Doxycycline Monohydrate* (Doxycycline Monohydrate*), 100 MG ORAL Q12H Epoetin Mau (Procrit), 10,000 UNIT SUBQ 3XW, (Reported) Gabapentin (Neurontin), 300 MG ORAL BID, (Reported) Hydralazine Hcl* (Hydralazine Hcl*), 25 MG ORAL Q6HR Insulin Glargine (Lantus), 100 SUBQ BEDTIME, (Reported) Levetiracetam (Levetiracetam), 1,000 MG ORAL TWICE A DAY, (Reported) Levothyroxine Sodium (Synthroid), 50 MCG ORAL DAILY, (Reported) Lisinopril* (Zestril*), 20 MG ORAL BID Minoxidil (Minoxidil), 2.5 MG ORAL BID, (Reported) Polyethylene Glycol 3350* (Miralax*), 17 GM ORAL DAILY, (Reported) Quetiapine Fumarate (Seroquel), 400 MG ORAL BEDTIME, (Reported) Sitagliptin* (Januvia*), 25 MG ORAL DAILY, (Reported) Vitamin B Cmplx/Vit C/Folic AC (Nephro-Denise Tablet), 1 TAB ORAL DAILY, (Reported ) Scheduled PRN Acetaminophen* (Acetaminophen 325MG Tablet*), 650 MG ORAL QID PRN for Pain Scale (3-5), (Reported) Acetaminophen* (Acetaminophen 325MG Tablet*), 650 MG ORAL Q6H PRN for TEMPERATURE, (Reported) Bisacodyl (Dulcolax), 10 MG RC DAILY PRN for Constipation, (Reported) Clonidine Hcl* (Catapres*), 0.1 MG ORAL EVERY 8 HOURS PRN for For High Blood Pressure, (Reported) Ipratropium Luke 0.5MG/2.5ML (Ipratropium Luke 0.5MG/2.5ML), 0.5 MG HHN FOUR TIMES A DAY PRN for Shortness of Breath, (Reported) Lactulose (Lactulose), 10 GM PO DAILY PRN for Constipation, (Reported) Miscellaneous Medications Fluticasone/Vilanterol (Breo Ellipta 100-25 Mcg INH), 1 PUFF IH, (Reported) Discontinued Medications Carvedilol* (Carvedilol*), 3.125 MG ORAL EVERY 12 HOURS, (Reported) Discontinued Reason: Medication dose changed Hydralazine HCl (Hydralazine HCl), 50 MG ORAL FOUR TIMES A DAY PRN for For High Blood Pressure, (Reported) Discontinued Reason: MD discontinued med Hydrocodone Bit/Acetaminophen 5-325* ([place] 5-325*), 1 TAB ORAL Q4H PRN for For Pain, (Reported) Discontinued Reason: MD discontinued med Patient History Healthcare decision maker Resuscitation status Full Code Advanced Directive on File No Review of Systems All Other Systems: negative except mentioned in HPI Physical Exam General Appearance: moderate distress Lines, tubes and drains: peripheral HEENT: normocephalic Neck: non-tender Respiratory/Chest: chest wall non-tender Abdomen: normal bowel sounds Extremities: normal range of motion Neurologic: services executive II-XII grossly normal Last 24 Hour Vital Signs Date Time Temp Pulse Resp B/P (MAP) Pulse Ox O2 Delivery O2 Flow Rate FiO2 09/06/18 13:35 159/46 09/06/18 12:00 76 09/06/18 12:00 Room Air 09/06/18 12:00 96.8 75 18 159/46 (83) 94 09/06/18 08:46 77 16 98 Room Air 09/06/18 08:00 Room Air 09/06/18 08:00 98.0 74 20 162/71 (101) 98 09/06/18 07:41 73 09/06/18 05:33 158/80 09/06/18 04:00 Room Air 09/06/18 04:00 97.5 77 24 158/80 (106) 94 09/06/18 03:26 75 09/06/18 00:26 160/80 09/06/18 00:00 Room Air 09/06/18 00:00 98.2 76 20 160/88 (112) 95 09/05/18 23:54 Room Air 09/05/18 23:41 74 09/05/18 23:00 98.2 79 20 162/89 100 Room Air 09/05/18 21:57 98.2 85 18 137/75 100 Room Air 09/05/18 18:05 88 18 09/05/18 18:05 98.2 88 18 170/85 100 Room Air 09/05/18 17:56 95.4 71 22 167/70 (102) 100 Room Air Intake and Output 09/05/18 09/06/18 19:00 07:00 Intake Total 50 ml Balance 50 ml Intake Oral 50 ml Laboratory Tests Test 09/05/18 19:00 09/05/18 19:08 09/05/18 19:09 09/06/18 03:25 Urine Color Pale yellow Urine Appearance Clear Urine pH 8 (4.5-8.0) Urine Specific [place] 1.010 (1.005-1.035) Urine Protein 4+ (NEGATIVE) H Urine Glucose (UA) 2+ (NEGATIVE) H Urine Ketones Negative (NEGATIVE) Urine Blood 2+ (NEGATIVE) H Urine Nitrite Negative (NEGATIVE) Urine Bilirubin Negative (NEGATIVE) Urine Urobilinogen Normal MG/DL (0.0-1.0) Urine Leukocyte Esterase Negative (NEGATIVE) Urine RBC 2-4 /HPF (0 - 2) H Urine WBC 0-2 /HPF (0 - 2) Urine Squamous Epithelial Cells Occasional /LPF Urine Bacteria None /HPF (NONE) White Blood Count 7.9 K/UL (4.8-10.8) 8.4 K/UL (4.8-10.8) Red Blood Count 2.60 M/UL (4.20-5.40) L 2.54 M/UL (4.20-5.40) L Hemoglobin 7.9 G/DL (12.0-16.0) L 7.7 G/DL (12.0-16.0) L Hematocrit 24.0 % (37.0-47.0) L 23.8 % (37.0-47.0) L Mean Corpuscular Volume 92 FL (80-99) 94 FL (80-99) Mean Corpuscular Hemoglobin 30.6 PG (27.0-31.0) 30.5 PG (27.0-31.0) Mean Corpuscular Hemoglobin Concent 33.1 G/DL (32.0-36.0) 32.6 G/DL (32.0-36.0) Red Cell Distribution Width 13.8 % (11.6-14.8) 14.0 % (11.6-14.8) Platelet Count 193 K/UL (150-450) 177 K/UL (150-450) Mean Platelet Volume 6.8 FL (6.5-10.1) 6.6 FL (6.5-10.1) Neutrophils (%) (Auto) % (45.0-75.0) % (45.0-75.0) Lymphocytes (%) (Auto) % (20.0-45.0) % (20.0-45.0) Monocytes (%) (Auto) % (1.0-10.0) % (1.0-10.0) Eosinophils (%) (Auto) % (0.0-3.0) % (0.0-3.0) Basophils (%) (Auto) % (0.0-2.0) % (0.0-2.0) Differential Total Cells Counted 100 100 Neutrophils % (Manual) 74 % (45-75) 78 % (45-75) H Lymphocytes % (Manual) 16 % (20-45) L 11 % (20-45) L Monocytes % (Manual) 6 % (1-10) 9 % (1-10) Eosinophils % (Manual) 2 % (0-3) 2 % (0-3) Basophils % (Manual) 2 % (0-2) 0 % (0-2) Band Neutrophils 0 % (0-8) 0 % (0-8) Platelet Estimate Adequate Adequate Platelet Morphology Normal Normal Polychromasia 1+ Anisocytosis 1+ 1+ Macrocytosis 1+ Prothrombin Time 12.0 SEC (9.30-11.50) H Prothromb Time International Ratio 1.1 (0.9-1.1) Activated Partial Thromboplast Time 28 SEC (23-33) Sodium Level 131 MMOL/L (136-145) L 131 MMOL/L (136-145) L Potassium Level 6.5 MMOL/L (3.5-5.1) *H 6.4 MMOL/L (3.5-5.1) *H Chloride Level 94 MMOL/L (98-107) L 93 MMOL/L (98-107) L Carbon Dioxide Level 21 MMOL/L (21-32) 22 MMOL/L (21-32) Anion Gap 17 mmol/L (5-15) H 16 mmol/L (5-15) H Blood Urea Nitrogen 81 mg/dL (7-18) H 86 mg/dL (7-18) H Creatinine 10.9 MG/DL (0.55-1.30) H 11.2 MG/DL (0.55-1.30) H Estimat Glomerular Filtration Rate 3.6 mL/min (>60) 3.5 mL/min (>60) Glucose Level 86 MG/DL (74-106) 74 MG/DL (74-106) Lactic Acid Level 0.60 mmol/L (0.4-2.0) Calcium Level 9.3 MG/DL (8.5-10.1) 9.1 MG/DL (8.5-10.1) Phosphorus Level 8.7 MG/DL (2.5-4.9) H 9.4 MG/DL (2.5-4.9) H Magnesium Level 2.2 MG/DL (1.8-2.4) 2.3 MG/DL (1.8-2.4) Total Bilirubin 0.6 MG/DL (0.2-1.0) 0.5 MG/DL (0.2-1.0) Aspartate Amino Transf (AST/SGOT) 26 U/L (15-37) 26 U/L (15-37) Alanine Aminotransferase (ALT/SGPT) 12 U/L (12-78) 12 U/L (12-78) Alkaline Phosphatase 115 U/L (46-116) 113 U/L (46-116) Total Creatine Kinase 321 U/L (26-308) H Creatine Kinase MB 15.8 NG/ML (0.0-3.6) H Creatine Kinase MB Relative Index 4.9 Troponin I 0.023 ng/mL (0.000-0.056) Pro-B-Type Natriuretic Peptide > 15524 pg/mL (0-125) H Total Protein 6.8 G/DL (6.4-8.2) 5.7 G/DL (6.4-8.2) L Albumin 2.6 G/DL (3.4-5.0) L 2.6 G/DL (3.4-5.0) L Globulin 4.2 g/dL 3.1 g/dL Albumin/Globulin Ratio 0.6 (1.0-2.7) L 0.8 (1.0-2.7) L Lipase 259 U/L (73-393) Venous Blood pH 7.366 Venous Blood Partial Pressure CO2 36.5 Venous Blood Partial Pressure O2 67.2 Venous Blood HCO3 20.4 Venous Blood Total Carbon Dioxide 36.5 Venous Bld O2 Saturation (Measured) 67.2 Venous Blood Oxygen Saturation 90.5 Venous Blood Base Excess -4.4 Methemoglobin 0.4 Sodium (Blood Gas) Hemoglobin A1c 4.5 % (4.3-6.0) Uric Acid 7.0 MG/DL (2.6-7.2) Gamma Glutamyl Transpeptidase 22 U/L (5-85) Thyroid Stimulating Hormone (TSH) 4.038 uiU/mL (0.358-3.740) Height (Feet): 5 Height (Inches): 8.00 Weight (Pounds): 213 Medications Current Medications Medications (Trade) Dose Ordered Sig/Gabriele Route PRN Reason Start Time Stop Time Status Last Admin Dose Admin Acetaminophen (Tylenol) 650 mg Q4H PRN ORAL Mild Pain (Pain Scale 1-3) 09/05/18 20:30 10/05/18 20:29 Amlodipine Besylate (Norvasc) 10 mg BID ORAL 09/06/18 09:00 10/06/18 08:59 Bisacodyl (Dulcolax) 10 mg DAILYPRN PRN RECTAL Constipation 09/05/18 20:30 10/05/18 20:29 Calcium Acetate (Phoslo) 667 mg THREE TIMES A DAY ORAL 09/06/18 09:00 10/06/18 08:59 Carvedilol (Coreg) 6.25 mg BID ORAL 09/06/18 09:00 10/06/18 08:59 Clonidine HCl (Catapres TTS-3) 1 patch QWEEK TDERMAL 09/06/18 14:00 10/06/18 13:59 09/06/18 13:35 Clonidine HCl (Catapres Tab) 0.1 mg Q4H PRN ORAL For High BP 160 syst 09/05/18 23:00 10/05/18 20:29 Clopidogrel Bisulfate (Plavix) 75 mg BID ORAL 09/06/18 09:00 10/06/18 08:59 Dextrose (Dextrose 50%) 25 ml Q30M PRN IV Hypoglycemia 09/05/18 20:30 10/05/18 20:29 Dextrose (Dextrose 50%) 50 ml Q30M PRN IV Hypoglycemia 09/05/18 20:30 10/05/18 20:29 Diphenhydramine HCl (Benadryl) 25 mg Q6H PRN ORAL Itching/Pruritis 09/05/18 20:30 10/05/18 20:29 Diphenoxylate HCl/ Atropine (Lomotil) 2.5 mg BID ORAL 09/06/18 09:00 10/06/18 08:59 Docusate Sodium (Colace) 100 mg TWICE A DAY ORAL 09/06/18 09:00 10/06/18 08:59 Gabapentin (Neurontin) 300 mg BID ORAL 09/06/18 09:00 10/06/18 08:59 Heparin Sodium (Porcine) (Heparin 5000 units/ml) 5,000 units EVERY 12 HOURS SUBQ 09/06/18 21:00 10/06/18 08:59 Hydralazine HCl (Apresoline) 25 mg Q6H PRN IV For High Blood Pressure 09/06/18 13:15 10/06/18 12:59 Hydralazine HCl (Apresoline) 50 mg Q6HR ORAL 09/06/18 12:00 10/06/18 00:00 Ipratropium Luke (Atrovent) 500 mcg QIDPRN PRN HHN Shortness of Breath 09/05/18 20:30 09/10/18 20:29 Levetiracetam 100 ml @ 400 mls/hr Q12HR IVPB 09/06/18 14:00 10/06/18 13:59 Levothyroxine Sodium (Synthroid) 50 mcg DAILY@0630 ORAL 09/06/18 06:30 10/06/18 06:29 09/06/18 05:34 Lorazepam (Ativan 2mg/ml 1ml) 0.5 mg Q4H PRN IV For Anxiety 09/05/18 20:30 09/12/18 20:29 Morphine Sulfate (Morphine Sulfate) 1 mg Q6H PRN IVP Moderate Pain (Pain Scale 4-6) 09/05/18 20:30 09/12/18 20:29 Ondansetron HCl (Zofran) 4 mg Q6H PRN IVP Nausea & Vomiting 09/05/18 20:30 10/05/18 20:29 Temazepam (Restoril) 15 mg DAILYPRN PRN ORAL Insomnia 09/05/18 20:30 09/12/18 20:29 Vitamin B Complex/ Vit C/Folic Acid (Nephrovite) 1 tab DAILY ORAL 09/06/18 09:00 10/06/18 08:59 Assessment/Plan Status Narrative 57 y M with ESRD on HD who is admitted due to AMS and missing 2 dyalisis sessions. # ESRD - HD today - Dr. Solis consult appreciated - Resume renal medications, binders, supplements # HTN - Resume medication and IV PRN as needed > 160 mmHg # Anemia of chronic disease / renal disease - Monitor H/H - Consiter JAMEE if indicated # Schizoaffective disorder/bipolar - Resume home medication # Diabetes mellitus type II - Resume regimen when patient is able to tolerate diet safely # Hypothyroidism - On synthroid # Upper extremity folliculitis-cellulitis less likely - Wound - surgery consultation requested. 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
[2018-09-06] MEDS: levETIRAcetam 1,000mg/NS100ml 100 ML IVPB SCH ×3 (13:54→20:43)
--- NOTE | 2018-09-06 15:00 | NUR ---
NURSE NOTES: Dr Wise came in to assess pt's skin and states sacral redness is not pressure-related.
--- NOTE | 2018-09-06 15:23 | Consultation ---
History of Present Illness General Date patient seen: Sep 06, 2018 Reason for Hospitalization: Altered Level of Consciousness Present Illness HPI 57 year old female well known to me from recent admissions presented with altered mental status, missed dialysis, and wounds. surgery called to evaluate and assist with care. patient seen, chart reviewed, patient examined. she is alert but not cooperative with full exam. she is restless and moves around a lot and tries to get out of bed. labs noted. Allergies: Coded Allergies: No Known Allergies (Verified , 08/23/06) Medication History Scheduled Amlodipine Besylate* (Amlodipine Besylate*), 10 MG ORAL BID, (Reported) Amoxicillin/Potassium Clav 875-125* (Augmentin 875-125 Tablet*), 1 TAB ORAL TWICE A DAY Atorvastatin Calcium* (Atorvastatin Calcium*), 40 MG ORAL BEDTIME, (Reported) Calcium Acetate (Calcium Acetate), 667 MG PO THREE TIMES A DAY, (Reported) Carvedilol (Coreg), 6.25 MG ORAL EVERY 12 HOURS Clopidogrel Bisulfate* (Plavix*), 75 MG ORAL BID, (Reported) Docusate Sodium* (Colace*), 100 MG ORAL TWICE A DAY, (Reported) Doxycycline Monohydrate* (Doxycycline Monohydrate*), 100 MG ORAL Q12H Epoetin Mau (Procrit), 10,000 UNIT SUBQ 3XW, (Reported) Gabapentin (Neurontin), 300 MG ORAL BID, (Reported) Hydralazine Hcl* (Hydralazine Hcl*), 25 MG ORAL Q6HR Insulin Glargine (Lantus), 100 SUBQ BEDTIME, (Reported) Levetiracetam (Levetiracetam), 1,000 MG ORAL TWICE A DAY, (Reported) Levothyroxine Sodium (Synthroid), 50 MCG ORAL DAILY, (Reported) Lisinopril* (Zestril*), 20 MG ORAL BID Minoxidil (Minoxidil), 2.5 MG ORAL BID, (Reported) Polyethylene Glycol 3350* (Miralax*), 17 GM ORAL DAILY, (Reported) Quetiapine Fumarate (Seroquel), 400 MG ORAL BEDTIME, (Reported) Sitagliptin* (Januvia*), 25 MG ORAL DAILY, (Reported) Vitamin B Cmplx/Vit C/Folic AC (Nephro-Denise Tablet), 1 TAB ORAL DAILY, (Reported ) Scheduled PRN Acetaminophen* (Acetaminophen 325MG Tablet*), 650 MG ORAL QID PRN for Pain Scale (3-5), (Reported) Acetaminophen* (Acetaminophen 325MG Tablet*), 650 MG ORAL Q6H PRN for TEMPERATURE, (Reported) Bisacodyl (Dulcolax), 10 MG RC DAILY PRN for Constipation, (Reported) Clonidine Hcl* (Catapres*), 0.1 MG ORAL EVERY 8 HOURS PRN for For High Blood Pressure, (Reported) Ipratropium [place] 0.5MG/2.5ML (Ipratropium [place] 0.5MG/2.5ML), 0.5 MG HHN FOUR TIMES A DAY PRN for Shortness of Breath, (Reported) Lactulose (Lactulose), 10 GM PO DAILY PRN for Constipation, (Reported) Miscellaneous Medications Fluticasone/Vilanterol (Breo Ellipta 100-25 Mcg INH), 1 PUFF IH, (Reported) Discontinued Medications Carvedilol* (Carvedilol*), 3.125 MG ORAL EVERY 12 HOURS, (Reported) Discontinued Reason: Medication dose changed Hydralazine HCl (Hydralazine HCl), 50 MG ORAL FOUR TIMES A DAY PRN for For High Blood Pressure, (Reported) Discontinued Reason: MD discontinued med Hydrocodone Bit/Acetaminophen 5-325* ([place] 5-325*), 1 TAB ORAL Q4H PRN for For Pain, (Reported) Discontinued Reason: MD discontinued med Patient History Limited by: medical condition History Provided By: Medical Record, PMD Healthcare decision maker Resuscitation status Full Code Advanced Directive on File No Past Medical/Surgical History Past Medical/Surgical History: (1) Schizoaffective disorder, bipolar type (2) MDD (major depressive disorder), recurrent episode, moderate (3) Symptomatic anemia (4) Acute metabolic encephalopathy (5) Lower extremity cellulitis (6) Altered level of consciousness (7) CHF (congestive heart failure) (8) Bradycardia (9) Diabetes mellitus, type II (10) Hypothyroidism (11) Costochondritis (12) GERD (gastroesophageal reflux disease) (13) HTN (hypertension) (14) Anemia in chronic renal disease (15) Cellulitis of arm, right (16) Clotted renal dialysis arteriovenous graft (17) ESRD (end stage renal disease) on dialysis (18) Seizure disorder (19) Non-compliance with renal dialysis (20) Pulmonary edema (21) Pneumonia (22) History of colon cancer Review of Systems Review of Symptoms General ROS: no weight loss or fever Psychological ROS: no depression or mood changes, no memory loss Ophthalmic ROS: no visual changes or eye irritation ENT ROS: no nasal congestion, hearing loss, dizziness Allergy and Immunology ROS: no allergic symptoms or urticaria Hematological and Lymphatic ROS: no swollen glands, unusual bleeding or bruising Endocrine ROS: no polyuria, polydipsia, weight changes, temperature intolerance Respiratory ROS: no cough, shortness of breath, or wheezing Cardiovascular ROS: no chest pain or dyspnea on exertion Gastrointestinal ROS: denies abdominal pain,no bright red blood in stool. Musculoskeletal ROS: no myalgias or arthralgias Neurological ROS: no TIA or stroke symptoms Dermatological ROS: no new or changing skin lesions, rashes or pruritis Physical Exam Physical Exam General appearance: alert, cooperative, no distress, appears stated age Head: Normocephalic, without obvious abnormality, atraumatic Eyes: conjunctivae/corneas clear. PERRL, EOM's intact. Fundi benign Throat: Lips, mucosa, and tongue normal. Teeth and gums normal Neck: supple, symmetrical, trachea midline, no adenopathy, thyroid: not enlarged, symmetric, no tenderness/mass/nodules, no carotid bruit and no JVD Lungs: clear to auscultation bilaterally Heart: regular rate and rhythm, S1, S2 normal, no murmur, click, rub or gallop Abdomen: soft, non-tender. Bowel sounds normal. No masses, no organomegaly Extremities: extremities normal, atraumatic, no cyanosis or edema Pulses: 2+ and symmetric Skin: Skin color, texture, turgor normal. No rashes or lesions Neurologic: Grossly normal Last 24 Hour Vital Signs Date Time Temp Pulse Resp B/P (MAP) Pulse Ox O2 Delivery O2 Flow Rate FiO2 09/06/18 13:35 159/46 09/06/18 12:00 76 09/06/18 12:00 Room Air 09/06/18 12:00 96.8 75 18 159/46 (83) 94 09/06/18 08:46 77 16 98 Room Air 09/06/18 08:00 Room Air 09/06/18 08:00 98.0 74 20 162/71 (101) 98 09/06/18 07:41 73 09/06/18 05:33 158/80 09/06/18 04:00 Room Air 09/06/18 04:00 97.5 77 24 158/80 (106) 94 09/06/18 03:26 75 09/06/18 00:26 160/80 09/06/18 00:00 Room Air 09/06/18 00:00 98.2 76 20 160/88 (112) 95 09/05/18 23:54 Room Air 09/05/18 23:41 74 09/05/18 23:00 98.2 79 20 162/89 100 Room Air 09/05/18 21:57 98.2 85 18 137/75 100 Room Air 09/05/18 18:05 88 18 09/05/18 18:05 98.2 88 18 170/85 100 Room Air 09/05/18 17:56 95.4 71 22 167/70 (102) 100 Room Air Intake and Output 09/05/18 09/06/18 19:00 07:00 Intake Total 50 ml Balance 50 ml Intake Oral 50 ml Laboratory Tests Test 09/05/18 19:00 09/05/18 19:08 09/05/18 19:09 09/06/18 03:25 Urine Color Pale yellow Urine Appearance Clear Urine pH 8 (4.5-8.0) Urine Specific [place] 1.010 (1.005-1.035) Urine Protein 4+ (NEGATIVE) H Urine Glucose (UA) 2+ (NEGATIVE) H Urine Ketones Negative (NEGATIVE) Urine Blood 2+ (NEGATIVE) H Urine Nitrite Negative (NEGATIVE) Urine Bilirubin Negative (NEGATIVE) Urine Urobilinogen Normal MG/DL (0.0-1.0) Urine Leukocyte Esterase Negative (NEGATIVE) Urine RBC 2-4 /HPF (0 - 2) H Urine WBC 0-2 /HPF (0 - 2) Urine Squamous Epithelial Cells Occasional /LPF Urine Bacteria None /HPF (NONE) White Blood Count 7.9 K/UL (4.8-10.8) 8.4 K/UL (4.8-10.8) Red Blood Count 2.60 M/UL (4.20-5.40) L 2.54 M/UL (4.20-5.40) L Hemoglobin 7.9 G/DL (12.0-16.0) L 7.7 G/DL (12.0-16.0) L Hematocrit 24.0 % (37.0-47.0) L 23.8 % (37.0-47.0) L Mean Corpuscular Volume 92 FL (80-99) 94 FL (80-99) Mean Corpuscular Hemoglobin 30.6 PG (27.0-31.0) 30.5 PG (27.0-31.0) Mean Corpuscular Hemoglobin Concent 33.1 G/DL (32.0-36.0) 32.6 G/DL (32.0-36.0) Red Cell Distribution Width 13.8 % (11.6-14.8) 14.0 % (11.6-14.8) Platelet Count 193 K/UL (150-450) 177 K/UL (150-450) Mean Platelet Volume 6.8 FL (6.5-10.1) 6.6 FL (6.5-10.1) Neutrophils (%) (Auto) % (45.0-75.0) % (45.0-75.0) Lymphocytes (%) (Auto) % (20.0-45.0) % (20.0-45.0) Monocytes (%) (Auto) % (1.0-10.0) % (1.0-10.0) Eosinophils (%) (Auto) % (0.0-3.0) % (0.0-3.0) Basophils (%) (Auto) % (0.0-2.0) % (0.0-2.0) Differential Total Cells Counted 100 100 Neutrophils % (Manual) 74 % (45-75) 78 % (45-75) H Lymphocytes % (Manual) 16 % (20-45) L 11 % (20-45) L Monocytes % (Manual) 6 % (1-10) 9 % (1-10) Eosinophils % (Manual) 2 % (0-3) 2 % (0-3) Basophils % (Manual) 2 % (0-2) 0 % (0-2) Band Neutrophils 0 % (0-8) 0 % (0-8) Platelet Estimate Adequate Adequate Platelet Morphology Normal Normal Polychromasia 1+ Anisocytosis 1+ 1+ Macrocytosis 1+ Prothrombin Time 12.0 SEC (9.30-11.50) H Prothromb Time International Ratio 1.1 (0.9-1.1) Activated Partial Thromboplast Time 28 SEC (23-33) Sodium Level 131 MMOL/L (136-145) L 131 MMOL/L (136-145) L Potassium Level 6.5 MMOL/L (3.5-5.1) *H 6.4 MMOL/L (3.5-5.1) *H Chloride Level 94 MMOL/L (98-107) L 93 MMOL/L (98-107) L Carbon Dioxide Level 21 MMOL/L (21-32) 22 MMOL/L (21-32) Anion Gap 17 mmol/L (5-15) H 16 mmol/L (5-15) H Blood Urea Nitrogen 81 mg/dL (7-18) H 86 mg/dL (7-18) H Creatinine 10.9 MG/DL (0.55-1.30) H 11.2 MG/DL (0.55-1.30) H Estimat Glomerular Filtration Rate 3.6 mL/min (>60) 3.5 mL/min (>60) Glucose Level 86 MG/DL (74-106) 74 MG/DL (74-106) Lactic Acid Level 0.60 mmol/L (0.4-2.0) Calcium Level 9.3 MG/DL (8.5-10.1) 9.1 MG/DL (8.5-10.1) Phosphorus Level 8.7 MG/DL (2.5-4.9) H 9.4 MG/DL (2.5-4.9) H Magnesium Level 2.2 MG/DL (1.8-2.4) 2.3 MG/DL (1.8-2.4) Total Bilirubin 0.6 MG/DL (0.2-1.0) 0.5 MG/DL (0.2-1.0) Aspartate Amino Transf (AST/SGOT) 26 U/L (15-37) 26 U/L (15-37) Alanine Aminotransferase (ALT/SGPT) 12 U/L (12-78) 12 U/L (12-78) Alkaline Phosphatase 115 U/L (46-116) 113 U/L (46-116) Total Creatine Kinase 321 U/L (26-308) H Creatine Kinase MB 15.8 NG/ML (0.0-3.6) H Creatine Kinase MB Relative Index 4.9 Troponin I 0.023 ng/mL (0.000-0.056) Pro-B-Type Natriuretic Peptide > 40748 pg/mL (0-125) H Total Protein 6.8 G/DL (6.4-8.2) 5.7 G/DL (6.4-8.2) L Albumin 2.6 G/DL (3.4-5.0) L 2.6 G/DL (3.4-5.0) L Globulin 4.2 g/dL 3.1 g/dL Albumin/Globulin Ratio 0.6 (1.0-2.7) L 0.8 (1.0-2.7) L Lipase 259 U/L (73-393) Venous Blood pH 7.366 Venous Blood Partial Pressure CO2 36.5 Venous Blood Partial Pressure O2 67.2 Venous Blood HCO3 20.4 Venous Blood Total Carbon Dioxide 36.5 Venous Bld O2 Saturation (Measured) 67.2 Venous Blood Oxygen Saturation 90.5 Venous Blood Base Excess -4.4 Methemoglobin 0.4 Sodium (Blood Gas) Hemoglobin A1c 4.5 % (4.3-6.0) Uric Acid 7.0 MG/DL (2.6-7.2) Gamma Glutamyl Transpeptidase 22 U/L (5-85) Thyroid Stimulating Hormone (TSH) 4.038 uiU/mL (0.358-3.740) Test 09/06/18 03:45 Hepatitis B Surface Antigen Pending Height (Feet): 5 Height (Inches): 8.00 Weight (Pounds): 213 Medications Current Medications Medications (Trade) Dose Ordered Sig/Gabriele Route PRN Reason Start Time Stop Time Status Last Admin Dose Admin Acetaminophen (Tylenol) 650 mg Q4H PRN ORAL Mild Pain (Pain Scale 1-3) 09/05/18 20:30 10/05/18 20:29 Amlodipine Besylate (Norvasc) 10 mg BID ORAL 09/06/18 09:00 10/06/18 08:59 Bisacodyl (Dulcolax) 10 mg DAILYPRN PRN RECTAL Constipation 09/05/18 20:30 10/05/18 20:29 Calcium Acetate (Phoslo) 667 mg THREE TIMES A DAY ORAL 09/06/18 09:00 10/06/18 08:59 Carvedilol (Coreg) 6.25 mg BID ORAL 09/06/18 09:00 10/06/18 08:59 Clonidine HCl (Catapres TTS-3) 1 patch QWEEK TDERMAL 09/06/18 14:00 10/06/18 13:59 09/06/18 13:35 Clonidine HCl (Catapres Tab) 0.1 mg Q4H PRN ORAL For High BP 160 syst 09/05/18 23:00 10/05/18 20:29 Clopidogrel Bisulfate (Plavix) 75 mg BID ORAL 09/06/18 09:00 10/06/18 08:59 Dextrose (Dextrose 50%) 25 ml Q30M PRN IV Hypoglycemia 09/05/18 20:30 10/05/18 20:29 Dextrose (Dextrose 50%) 50 ml Q30M PRN IV Hypoglycemia 09/05/18 20:30 10/05/18 20:29 Diphenhydramine HCl (Benadryl) 25 mg Q6H PRN ORAL Itching/Pruritis 09/05/18 20:30 10/05/18 20:29 Diphenoxylate HCl/ Atropine (Lomotil) 2.5 mg BID ORAL 09/06/18 09:00 10/06/18 08:59 Docusate Sodium (Colace) 100 mg TWICE A DAY ORAL 09/06/18 09:00 10/06/18 08:59 Gabapentin (Neurontin) 300 mg BID ORAL 09/06/18 09:00 10/06/18 08:59 Heparin Sodium (Porcine) (Heparin 5000 units/ml) 5,000 units EVERY 12 HOURS SUBQ 09/06/18 21:00 10/06/18 08:59 Hydralazine HCl (Apresoline) 25 mg Q6H PRN IV For High Blood Pressure 09/06/18 13:15 10/06/18 12:59 Hydralazine HCl (Apresoline) 50 mg Q6HR ORAL 09/06/18 12:00 10/06/18 00:00 Ipratropium [place] (Atrovent) 500 mcg QIDPRN PRN HHN Shortness of Breath 09/05/18 20:30 09/10/18 20:29 Levetiracetam 100 ml @ 400 mls/hr Q12HR IVPB 09/06/18 14:00 10/06/18 13:59 09/06/18 13:56 Levothyroxine Sodium (Synthroid) 50 mcg DAILY@0630 ORAL 09/06/18 06:30 10/06/18 06:29 09/06/18 05:34 Lorazepam (Ativan 2mg/ml 1ml) 0.5 mg Q4H PRN IV For Anxiety 09/05/18 20:30 09/12/18 20:29 Morphine Sulfate (Morphine Sulfate) 1 mg Q6H PRN IVP Moderate Pain (Pain Scale 4-6) 09/05/18 20:30 09/12/18 20:29 Ondansetron HCl (Zofran) 4 mg Q6H PRN IVP Nausea & Vomiting 09/05/18 20:30 10/05/18 20:29 Temazepam (Restoril) 15 mg DAILYPRN PRN ORAL Insomnia 09/05/18 20:30 09/12/18 20:29 Vitamin B Complex/ Vit C/Folic Acid (Nephrovite) 1 tab DAILY ORAL 09/06/18 09:00 10/06/18 08:59 Assessment/Plan Problem List: (1) Lower extremity cellulitis Assessment & Plan: lower extremity cellulitis improved right foot great toe looks to have progressed will obtain plain films cont with dressings, therahoney and gauze or foam dressing ICD Codes: L03.119 - Cellulitis of unspecified part of limb SNOMED: 096644168 (2) Cellulitis of arm, right Assessment & Plan: 57-year-old female with multiple medical comorbidities presenting from a senior living On admission patient identified to have multiple wounds Etiology of wounds potentially from trauma Patient a poor historian Patient noted to have multiple scabs on her upper and lower extremities Patient does have some distal ischemia in the toes No acute surgical intervention distribution of wounds do not seem to be rash or skin disorder. mainly trauma related will hold on skin biopsy for now will need to reinforce to patient not to pick at wounds, remove scabs, or deep scratching. appreciate psych input apply bacitracin ointment to scabs and scars on upper and lower extremity okay to wrap bilateral upper extremities with kerlix wrap to prevent patient from picking scabs and see if able to heal old traumatic wounds patient has multiple upper extremity wounds as noted prior she continues to scratch wounds and was doing so upon admission opens healing wounds and causes callus to form ICD Codes: L03.113 - Cellulitis of right upper limb SNOMED: 513030847 (3) Non-compliance with renal dialysis ICD Codes: Z91.15 - Patient's noncompliance with renal dialysis SNOMED: 844174484727766 (4) Altered level of consciousness ICD Codes: R40.4 - Transient alteration of awareness SNOMED: 0214156 Vic Wise Sep 06, 2018 15:23
[2018-09-06 16:00] VITALS: BP 118/62
--- NOTE | 2018-09-06 16:00 | NUR ---
Per Dr. Oviedo, do not administer PO meds until pt completes swallow eval tomorrow.
[2018-09-06] MEDS ORDERED: LISINOPRIL10 MG ORAL (18:21)
[2018-09-06] MEDS ORDERED: CARVEDILOL6.25 MG ORAL (18:21)
[2018-09-06] MEDS ORDERED: HYDRALAZINE HCL25 M1 ORAL (18:21)
[2018-09-06] MEDS ORDERED: MINOXIDIL2.5 MG PO (18:25)
--- NOTE | 2018-09-06 19:34 | NUR ---
HAND-OFF: Report given to CHEPE Sinhg. Pt in stable condition.
--- NOTE | 2018-09-06 19:35 | NUR ---
NURSE NOTES: RECEIVED PT FROM CHEPE CHEUNG. PT IS X1, ABLE TO RECALL NAME AND FOLLOW SIMPLE COMMANDS, BUT DOES NOT RESPOND STRONG VERBALLY. 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 ON RA, SATING WELL. SKIN IS CLEAN, DRY, DRESSINGS INTACT AT THIS TIME. CATALINA 24 ASYMPTOMATIC, TKO. LUISANA AV SHUNT NOTED, PALPABLE/AUDIBLE THRILL. LABS OK PER RN, BMP TOMORROW, AWARE, WILL AWAIT AM RESULTS. BED IS LOCKED IN LOWEST POSITION, SR X3, CALL ROCHA W/ IN REACH, SZ PRECAUTIONS CONTINUED. WILL CONTINUE TO MONITOR AND FOLLOW W/ PLAN OF CARE.
[2018-09-06] MEDS ORDERED: MILK OF MA400 MG/51 ORAL (19:51)
[2018-09-06 20:00] VITALS: BP 152/76
[2018-09-06] MEDS: Heparin 5000 units/ml inj SUBQ SCH (20:44)
--- NOTE | 2018-09-06 23:22 | NUR ---
NURSE NOTES: NON-ADMIN HYDRALAZINE. PT IS UNABLE TO FOLLOW COMMANDS OR SWALLOW AT THIS TIME. HAS A PENDING SWALLOW MD AKILA AWARE. PRN CLONIDINE FOR SYS BP >160. WILL CONTINUE TO MONITOR.
[2018-09-07] VITALS: BP 120/66
--- NOTE | 2018-09-07 | NUR ---
NURSE NOTES: PT VERY DISRUPTIVE. WALKED IN THE ROOM TO THE PT VERY DISHEVELED. PT PULLED OUT HER IV, TOOK OFF HER GOWN, AND SENIOR HYDROGEOLOGIST. REORIENTED PT, REPOSITIONED, AND CHANGED GOWN. PT NOW HAS 22G LEFT HAND IV, SECURED. WILL CONTINUE TO MONITOR AND PROVIDE MORE FREQUENT ROUNDING AND ORIENTATION.
--- NOTE | 2018-09-07 00:15 | Consultation ---
DATE OF CONSULTATION: 09/06/2018 CONSULTING PHYSICIAN: Blanka Beckett M.D. HISTORY OF PRESENT ILLNESS: This is a 57-year-old female. I am well familiar with this patient. The patient has a history of noncompliance with hemodialysis, admitted again for acute encephalopathy. The patient is not able to provide any history. PAST PSYCHIATRIC HISTORY: Schizoaffective disorder. PAST MEDICAL HISTORY: End-stage renal failure on hemodialysis, hypertension, obesity, and hyperlipidemia. ALLERGIES: No known drug allergies. SUBSTANCE ABUSE HISTORY: No known history of illicit drug use or alcohol. MENTAL STATUS EXAMINATION: The patient is having waxing and waning consciousness, confused, and disoriented. Mood is neutral. Affect is flat. Cognition is impaired. ASSESSMENT: [place] I Acute encephalopathy. [place] II Deferred. [place] III As above. [place] IV Low. [place] V 20. PLAN: The patient's psychotropic medication will be stopped. We will continue to follow. Recommend probate conservatorship. Blanka Beckett M.D. DR: BUBBA JOB#: [id number] CC:
[2018-09-07 04:00] VITALS: BP 120/64
[2018-09-07] MEDS: HydrALAZINE 50mg tab ORAL SCH ×3 (05:43→22:20)
--- NOTE | 2018-09-07 05:44 | NUR ---
NURSE NOTES: NON-ADMIN AM MEDS, SEE EMAR. PT IS TOO LETHARGIC, DISORIENTED TO SWALLOW. STATED EARLIER SHE HAS ORDER FOR SWALLOW EVALUATION. WILL ENDORSE TO AM NURSE AND CONTINUE TO HOLD PO MEDS.
--- NOTE | 2018-09-07 07:22 | NUR ---
HAND-OFF: Report given to CHEPE FLOYD.
--- NOTE | 2018-09-07 07:27 | NUR ---
NURSE NOTES: Report received from CHEPE Singh. Observed patient in bed. Awake and able to follow simple command but very agitated and disoriented at this time. No s/s of pain at this time. No distress noted in room air. IV intact and patent. Side rails padded. Bed in lowest position. Call light within reach. Will continue to monitor.
[2018-09-07 08:00] VITALS: BP 164/68
[2018-09-07] MEDS: Docusate 100mg cap ORAL SCH (08:26)
[2018-09-07] MEDS: Calcium Acetate 667mg Tab ORAL SCH ×2 (08:27→12:01)
[2018-09-07] MEDS: Lomotil 2.5mg tab ORAL SCH ×2 (08:27→17:07)
[2018-09-07] MEDS: Carvedilol 6.25mg Tab ORAL SCH (08:27)
[2018-09-07] MEDS: Nephrovite tab (Rena-Vite) ORAL SCH (08:27)
[2018-09-07] MEDS: Heparin 5000 units/ml inj SUBQ SCH ×2 (08:28→20:31)
[2018-09-07] MEDS: levETIRAcetam 1,000mg/NS100ml 100 ML IVPB SCH ×2 (08:40→20:30)
[2018-09-07] MEDS ORDERED: Tubing IV Secondary IV ONE (10:56)
[2018-09-07] MEDS ORDERED: NS 275ml ONE (10:56)
--- NOTE | 2018-09-07 10:58 | NUR ---
RD ASSESSMENT & RECOMMENDATIONS SEE CARE ACTIVITY FOR COMPLETE ASSESSMENT DAILY ESTIMATED NEEDS: Needs based on ESRD on HD, obese 67kg Adj 25-30 kcals/kg 7851-1766 total kcals 1.2-1.8 g protein/kg 80-121 g total protein Fluid per MD, on HD NUTRITION DIAGNOSIS: * Increased protein needs r/t renal dysfunction as evidenced by ESRD dx on HD. * Swallowing difficulty R/T dysphagia, confusion, lethargy as evidenced by PO meds and meals held at this time, pending PROCESS DESCRIPTION WRITER evaluation. CURRENT DIET:RENAL -> HELD UNTIL PROCESS DESCRIPTION WRITER EVALUATION (DISORIENTED, LETHARGIC) PO DIET RECOMMENDATIONS: IF SAFE FOR PO INTAKE -> RENAL/ texture per PROCESS DESCRIPTION WRITER ENTERAL NUTRITION RECOMMENDATIONS: IF NGT FEEDING PART OF POC -> Nepro @ 45ml/hr x 22 hrs to provide 990ml, 1782kcal, 80g prot, 720ml free water * IF NGT FEEDING PART OF POC, consider obtaining GI access (PO meds and diet held at this time until seen by PROCESS DESCRIPTION WRITER, PROCESS DESCRIPTION WRITER not available on the weekend) * Initiate Nepro @ 25ml/hr x 6hrs, advance 10ml q 4-6 hrs as tolerated to goal rate. * HOB over 30 degrees/ water flush per MD ADDITIONAL RECOMMENDATIONS: * Calibrated bedscale wt post HD * Monitor NPO status: meals held until seen by PROCESS DESCRIPTION WRITER -> Consider NGT feeding at this time, PROCESS DESCRIPTION WRITER not available over the weekend Per RN note, "PT IS TOO LETHARGIC, DISORIENTED TO SWALLOW" * Monitor lytes and renal fxn (phos elev, K critically elev) * Monitor BGs, need for NISS, carb controlled diet/TF Addendum: 09/07/18 at [address] TF TO RUN MAX 22 HRS: HOLD 1 HR BEFORE AND AFTER SYNTHROID MED
--- NOTE | 2018-09-07 11:44 | NUR ---
NURSE NOTES: Patient refused blood draw and venous duplex. Called and left message to Dr. Oviedo to inform him. Awaiting for call back.
--- NOTE | 2018-09-07 11:50 | NUR ---
NURSE NOTES: Called back from Dr. Oviedo regarding refusal of care. MD said that he will be here in 15 minutes to assess the patient.
[2018-09-07 12:00] VITALS: BP 152/75
--- NOTE | 2018-09-07 14:00 | General Progress Note ---
Assessment/Plan Status: not improved Assessment/Plan: Status Narrative 57 y M with ESRD on HD who is admitted due to AMS and missing 2 dialysis sessions. # ESRD - HD done 09/06 - Dr. Solis consult appreciated, further dialysis might be needed. 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 # FULL CODE # DVT - GI ppx Subjective Allergies: Coded Allergies: No Known Allergies (Verified , 08/23/06) All Systems: reviewed and negative except above Objective Last 24 Hour Vital Signs Date Time Temp Pulse Resp B/P (MAP) Pulse Ox O2 Delivery O2 Flow Rate FiO2 09/07/18 12:00 88 09/07/18 12:00 97.8 87 21 152/75 (100) 100 09/07/18 11:52 Room Air 09/07/18 08:42 164/68 09/07/18 08:00 87 09/07/18 08:00 Room Air 09/07/18 08:00 98.6 86 22 164/68 (100) 100 09/07/18 07:30 74 18 98 Room Air 21 09/07/18 04:00 87 09/07/18 04:00 97.9 87 20 120/64 (82) 97 09/07/18 04:00 Room Air 09/07/18 00:00 Room Air 09/07/18 00:00 86 09/07/18 00:00 98.1 89 20 120/66 (84) 92 09/06/18 23:21 152/76 09/06/18 20:29 75 20 98 Room Air 09/06/18 20:00 Room Air 09/06/18 20:00 85 09/06/18 20:00 97.7 85 20 152/76 (101) 91 09/06/18 16:00 97.6 76 20 118/62 (80) 98 09/06/18 16:00 Room Air 09/06/18 16:00 75 Intake and Output 09/06/18 09/07/18 19:00 07:00 Intake Total 100 ml 130 ml Output Total 2000 ml Balance -1900 ml 130 ml Intake Oral 30 ml IV Total 100 ml 100 ml Output Hemodialysis UF 2000 ml Height (Feet): 5 Height (Inches): 8.00 Weight (Pounds): 216 General Appearance: WD/WN, moderate distress EENT: PERRL/EOMI Neck: non-tender Respiratory/Chest: lungs clear, normal breath sounds Abdomen: normal bowel sounds 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
--- NOTE | 2018-09-07 14:47 | Surgery Progress Note ---
Surgery Progress Note Subjective Additional Comments no acute events. more awake and resposive today up and ambulatory combative at times Objective Last 24 Hour Vital Signs Date Time Temp Pulse Resp B/P (MAP) Pulse Ox O2 Delivery O2 Flow Rate FiO2 09/07/18 12:00 88 09/07/18 12:00 97.8 87 21 152/75 (100) 100 09/07/18 11:52 Room Air 09/07/18 08:42 164/68 09/07/18 08:00 87 09/07/18 08:00 Room Air 09/07/18 08:00 98.6 86 22 164/68 (100) 100 09/07/18 07:30 74 18 98 Room Air 21 09/07/18 04:00 87 09/07/18 04:00 97.9 87 20 120/64 (82) 97 09/07/18 04:00 Room Air 09/07/18 00:00 Room Air 09/07/18 00:00 86 09/07/18 00:00 98.1 89 20 120/66 (84) 92 09/06/18 23:21 152/76 09/06/18 20:29 75 20 98 Room Air 09/06/18 20:00 Room Air 09/06/18 20:00 85 09/06/18 20:00 97.7 85 20 152/76 (101) 91 09/06/18 16:00 97.6 76 20 118/62 (80) 98 09/06/18 16:00 Room Air 09/06/18 16:00 75 I&O Intake and Output 09/06/18 09/07/18 19:00 07:00 Intake Total 100 ml 130 ml Output Total 2000 ml Balance -1900 ml 130 ml Intake Oral 30 ml IV Total 100 ml 100 ml Output Hemodialysis UF 2000 ml Dressing: dry Wound: clean Cardiovascular: RSR Respiratory: clear Abdomen: soft, non-tender, present bowel sounds Extremities: edema, tenderness, cyanosis Plan Problems: (1) Lower extremity cellulitis Assessment & Plan: lower extremity cellulitis improved right foot great toe looks to have progressed will obtain plain films cont with dressings, therahoney and gauze or foam dressing (2) Cellulitis of arm, right Assessment & Plan: 57-year-old female with multiple medical comorbidities presenting from a retirement On admission patient identified to have multiple wounds Etiology of wounds potentially from trauma Patient a poor historian Patient noted to have multiple scabs on her upper and lower extremities Patient does have some distal ischemia in the toes No acute surgical intervention distribution of wounds do not seem to be rash or skin disorder. mainly trauma related will hold on skin biopsy for now will need to reinforce to patient not to pick at wounds, remove scabs, or deep scratching. appreciate psych input apply bacitracin ointment to scabs and scars on upper and lower extremity okay to wrap bilateral upper extremities with kerlix wrap to prevent patient from picking scabs and see if able to heal old traumatic wounds patient has multiple upper extremity wounds as noted prior she continues to scratch wounds and was doing so upon admission opens healing wounds and causes callus to form (3) Non-compliance with renal dialysis (4) Altered level of consciousness Vic Wise Sep 07, 2018 14:47
--- NOTE | 2018-09-07 15:10 | NUR ---
NURSE NOTES: Called to [facility] dialysis center to let them know about hemodialysis order for sunday (09/09/18). Spoke with Patricia from [facility] dialysis [place].
--- NOTE | 2018-09-07 15:17 | Nephrology Progress Note ---
Assessment/Plan Problem List: (1) ESRD (end stage renal disease) on dialysis Assessment: presented with hyperkalemia (2) Altered level of consciousness (3) Schizoaffective disorder, bipolar type (4) Hypothyroidism (5) Anemia in chronic renal disease (6) Clotted renal dialysis arteriovenous graft Assessment Back again for missing HD ( refusing dialysis) hence becoming altered- Has high serum K examined essentially no change in exam Assessment/Plan Presents with Encephalopathy due to missing dialysis 1) ESRD (end stage renal disease) on dialysis (2) Anemia in chronic renal disease (3) Schizoaffective disorder, bipolar type (4) Diabetes mellitus, type II (5) Hypothyroidism - Cellulitis both LE - Metabolic Encephalopathy - End-stage renal disease, on hemodialysis. fistula right arm - Anemia of chronic kidney disease. - HTN / Pulmonary HTN - Diabetes type 2. -HypoThyroidism Others - Morbid obesity. - H/O Colon Cancer - H/O Hep C - H/O Depression and Bipolar disease - Psych disease uncoaporative --Bilateral leg numbness --diabetic neuropathy --L5-S1 disc protrusion Plan HD done yrsterday will reorder for 09/09 [employer] [employer] WORK skin care / Antibiotics per consultants to med surg Subjective ROS Limited/Unobtainable: No Constitutional: Reports: malaise Objective Objective Last 24 Hour Vital Signs Date Time Temp Pulse Resp B/P (MAP) Pulse Ox O2 Delivery O2 Flow Rate FiO2 09/07/18 12:00 88 09/07/18 12:00 97.8 87 21 152/75 (100) 100 09/07/18 11:52 Room Air 09/07/18 08:42 164/68 09/07/18 08:00 87 09/07/18 08:00 Room Air 09/07/18 08:00 98.6 86 22 164/68 (100) 100 09/07/18 07:30 74 18 98 Room Air 21 09/07/18 04:00 87 09/07/18 04:00 97.9 87 20 120/64 (82) 97 09/07/18 04:00 Room Air 09/07/18 00:00 Room Air 09/07/18 00:00 86 09/07/18 00:00 98.1 89 20 120/66 (84) 92 09/06/18 23:21 152/76 7/19/19 20:29 75 20 98 Room Air 09/06/18 20:00 Room Air 09/06/18 20:00 85 09/06/18 20:00 97.7 85 20 152/76 (101) 91 09/06/18 16:00 97.6 76 20 118/62 (80) 98 09/06/18 16:00 Room Air 09/06/18 16:00 75 Intake and Output 09/06/18 09/07/18 19:00 07:00 Intake Total 100 ml 130 ml Output Total 2000 ml Balance -1900 ml 130 ml Intake Oral 30 ml IV Total 100 ml 100 ml Output Hemodialysis UF 2000 ml Height (Feet): 5 Height (Inches): 8.00 Weight (Pounds): 216 General Appearance: no apparent distress Cardiovascular: normal rate Respiratory/Chest: decreased breath sounds Abdomen: distended Extremities: other - skin changes ++ Eamon Solis MD Sep 07, 2018 15:17
[2018-09-07] MEDS ORDERED: HydrALAZINE 25mg tab ORAL PRN (15:30)
[2018-09-07 16:00] VITALS: BP 160/74
--- NOTE | 2018-09-07 17:15 | NUR ---
NURSE NOTES: Dialysis nurseBraydon from [facility] dialysis center called back to confirm the HD order for sunday.
[2018-09-07] MEDS ORDERED: Docusate 100mg cap ORAL SCH (18:00)
[2018-09-07] MEDS ORDERED: Calcium Acetate 667mg Tab ORAL SCH (18:00)
--- NOTE | 2018-09-07 19:09 | NUR ---
HAND-OFF: Report given to CHEPE Sevilla. Stable condition.
--- NOTE | 2018-09-07 19:50 | NUR ---
NURSE NOTES: PATIENT ASLEEP STATUS, RESPONSE TO NAME, DENIED PAIN OR SOB, PERIPHERAL LINE TO LEFT HAND, INTACT AND PATENT, KEPT SZ PRECAUTION, MADE LOWER BED POSITION, PROVIDED CALL LIGHT WITHIN REACH, WILL CONTINUE TO MONITOR.
[2018-09-07 20:00] VITALS: BP 161/73
[2018-09-07] MEDS ORDERED: Carvedilol 12.5mg tab ORAL SCH (21:00)
--- NOTE | 2018-09-07 21:30 | NUR ---
NURSE NOTES: NO ACUTE DISTRESS NOTED AT THIS TIME.
--- NOTE | 2018-09-07 21:35 | NUR ---
TRANSFER TO FLOOR: Patient transferred to MED/SURG room 415-1 via hospital bed. Report given to CHEPE BOYER. Belongings and medications given to CHEPE BOYER.
[2018-09-07] MEDS ORDERED: Morphine Sulfate 2mg/ml Inj(IV/IM USE ONLY) IVP PRN (22:00)
[2018-09-07] MEDS ORDERED: Ipratropium 0.02% Inh Soln 2.5ml UD HHN PRN (22:00)
[2018-09-07] MEDS ORDERED: HydrALAZINE 50mg tab ORAL SCH (22:00)
[2018-09-07] MEDS ORDERED: LORazepam Inj 2mg/ml 1ml IV PRN (22:00)
--- NOTE | 2018-09-07 22:29 | NUR ---
NURSE NOTES: Received report from Roel MO. Patient from 238-2. All belongings noted. Kept clean and comfortable. Provided safe environment. Abdomen is soft and non distended. Right upper arm AV shunt noted. IV site on the left hand. Skin is warm and dry. Patient refused to have bilateral toes to be pictured and sacral. Informed the risks and benefits, still refused. Call light is at bedside. Will continue plan of care. Blood pressure is 165/70, given routine blood pressure medication. Will reassess.
[2018-09-08] VITALS: BP 161/73
[2018-09-08 04:00] VITALS: BP 154/62
[2018-09-08] MEDS: HydrALAZINE 50mg tab ORAL SCH ×3 (05:46→21:26)
--- NOTE | 2018-09-08 07:09 | NUR ---
HAND-OFF: Report given to CHEPE Jay.
[2018-09-08 08:00] VITALS: BP 144/57
--- NOTE | 2018-09-08 08:01 | NUR ---
NURSE NOTES: received report from CHEPE Estevez. patient sleeping. no respiratory distress noted. Av shunt on LUISANA thrill and bruit. LH 22g heplock intact. contact isolation. bed in the lowest position. alarm on. call light within reach. will continue to provide plan of care.
[2018-09-08] MEDS ORDERED: Lomotil 2.5mg tab ORAL SCH (09:00)
[2018-09-08] MEDS ORDERED: Sodium Polystyrene Sulfonate 15gm Powder ORAL SCH (09:00)
[2018-09-08] MEDS ORDERED: Bacitracin Oint UD TOPIC SCH (09:00)
[2018-09-08] MEDS: Docusate 100mg cap ORAL SCH ×3 (09:06→17:47)
[2018-09-08] MEDS: Nephrovite tab (Rena-Vite) ORAL SCH (09:07)
[2018-09-08] MEDS: Calcium Acetate 667mg Tab ORAL SCH ×3 (09:08→17:46)
[2018-09-08] MEDS: Bacitracin Oint UD TOPIC SCH (09:08)
[2018-09-08] MEDS: Carvedilol 12.5mg tab ORAL SCH ×2 (09:08→21:26)
[2018-09-08] MEDS: Sodium Polystyrene Sulfonate 15gm Powder ORAL SCH (09:09)
[2018-09-08] MEDS: Heparin 5000 units/ml inj SUBQ SCH ×2 (09:09→09:24)
[2018-09-08] MEDS: levETIRAcetam 1,000mg/NS100ml 100 ML IVPB SCH ×2 (09:10→21:25)
--- NOTE | 2018-09-08 11:52 | Diagnostic Imaging Report ---
Indication: Foot Pain Comparison: None Findings: 3 views of the right foot were obtained. Bones are osteopenic. There is an old fracture of the fifth metatarsal. No acute fracture identified. Vascular calcification noted. Plantar calcaneal spur noted. IMPRESSION: No acute injury
[2018-09-08 12:00] VITALS: BP 144/57
--- NOTE | 2018-09-08 12:34 | NUR ---
NURSE NOTES: patient no BM since 09/05/18. patient has schedule lomotil 2.5mg BID. notified DR. Solis and received order change Lomotil 2.5mg PO PRN q4hs for diarrhea. order noted and carried out.
[2018-09-08] MEDS ORDERED: Lomotil 2.5mg tab ORAL PRN (12:45)
--- NOTE | 2018-09-08 13:01 | NUR ---
NURSE NOTES: seen by DR. Oviedo and received order put mittens if patient keep scratching her wounds on bilateral upper extremities and lower extremities. order noted and carried out.
--- NOTE | 2018-09-08 14:06 | General Progress Note ---
Assessment/Plan Status: not improved Assessment/Plan: Status Narrative 57 y M with ESRD on HD who is admitted due to AMS and missing 2 dialysis sessions. # ESRD - HD done 09/06 and plan for 09/09 ( Sunday) - Dr. Solis consult appreciated, further dialysis might be needed. - Resume renal medications, binders, supplements # HTN - Resume medication and IV PRN as needed > 160 mmHg # Anemia of chronic disease / renal disease - Monitor H/H ( Hb 7.6 ) - Consiter JAMEE if indicated # Schizoaffective disorder/bipolar - Resume home medication - Dr. Beckett evaluated the patient and probate conservatorship recommended as patient continues to refuse HD and requiring re-hospitalizations. - SW and CM orders placed. 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 # Moderate protein caloric malnutrition - Albumin 2.6 - Dietary and nutritional support # FULL CODE # DVT - GI ppx # Disposition - LVT SNF resident when medically stable. Subjective Allergies: Coded Allergies: No Known Allergies (Verified , 08/23/06) All Systems: reviewed and negative except above Objective Last 24 Hour Vital Signs Date Time Temp Pulse Resp B/P (MAP) Pulse Ox O2 Delivery O2 Flow Rate FiO2 09/08/18 12:00 98.0 75 18 144/57 (86) 98 09/08/18 09:08 75 144/57 09/08/18 09:07 75 144/57 09/08/18 09:00 Room Air 09/08/18 08:00 98.0 75 14 144/57 (86) 98 09/08/18 05:46 154/62 09/08/18 04:00 97.6 88 20 154/62 (92) 96 09/08/18 00:00 97.6 83 20 161/73 (102) 94 09/07/18 22:20 164/70 09/07/18 20:30 83 161/73 09/07/18 20:00 97.2 83 20 161/73 (102) 94 09/07/18 20:00 Room Air 09/07/18 18:43 71 18 97 Room Air 21 09/07/18 16:00 85 09/07/18 16:00 98.2 85 21 160/74 (102) 100 09/07/18 16:00 Room Air Intake and Output 09/07/18 09/08/18 19:00 07:00 Intake Total 220 ml Balance 220 ml Intake Oral 120 ml IV Total 100 ml # Voids 3 Height (Feet): 5 Height (Inches): 8.00 Weight (Pounds): 210 General Appearance: moderate distress EENT: PERRL/EOMI Neck: non-tender Cardiovascular: regularly irregular Abdomen: normal bowel sounds Extremities: other - bilateral arm scabs and wounds noted Edema: trace edema Myrtle Oviedo MD Sep 08, 2018 14:06
[2018-09-08 16:00] VITALS: BP 136/60
--- NOTE | 2018-09-08 16:01 | NUR ---
NURSE NOTES: patient removed gown and was trying to get out of bed. changed linens, gown and put her back to bed. patient kept trying to get our of bed and remove wound dressing. scratches her wounds. explained risks and benefits to the patient. patient disoriented. confused. unable to communicate patient. given Ativan 0.25mg IVP. not effective. notified Dr. Oviedo and he will put the soft restraint order. will continue to provide plan of care.
--- NOTE | 2018-09-08 17:17 | Nephrology Progress Note ---
Assessment/Plan Problem List: (1) ESRD (end stage renal disease) on dialysis Assessment: presented with hyperkalemia (2) Altered level of consciousness (3) Schizoaffective disorder, bipolar type (4) Hypothyroidism (5) Anemia in chronic renal disease (6) Clotted renal dialysis arteriovenous graft Assessment Back again for missing HD ( refusing dialysis) hence becoming altered- Has high serum K examined essentially no change in exam Assessment/Plan Presents with Encephalopathy due to missing dialysis 1) ESRD (end stage renal disease) on dialysis (2) Anemia in chronic renal disease (3) Schizoaffective disorder, bipolar type (4) Diabetes mellitus, type II (5) Hypothyroidism - Cellulitis both LE - Metabolic Encephalopathy - End-stage renal disease, on hemodialysis. fistula right arm - Anemia of chronic kidney disease. - HTN / Pulmonary HTN - Diabetes type 2. -HypoThyroidism Others - Morbid obesity. - H/O Colon Cancer - H/O Hep C - H/O Depression and Bipolar disease - Psych disease uncoaporative --Bilateral leg numbness --diabetic neuropathy --L5-S1 disc protrusion Plan HD done once will reorder for 09/09 [employer] [employer] WORK skin care / Antibiotics per consultants to med surg Subjective ROS Limited/Unobtainable: No Constitutional: Reports: malaise Objective Objective Last 24 Hour Vital Signs Date Time Temp Pulse Resp B/P (MAP) Pulse Ox O2 Delivery O2 Flow Rate FiO2 09/08/18 14:12 144/57 09/08/18 12:00 98.0 75 18 144/57 (86) 98 09/08/18 09:08 75 144/57 09/08/18 09:07 75 144/57 09/08/18 09:00 Room Air 09/08/18 08:00 98.0 75 14 144/57 (86) 98 09/08/18 07:52 72 18 98 Room Air 21 09/08/18 05:46 154/62 09/08/18 04:00 97.6 88 20 154/62 (92) 96 09/08/18 00:00 97.6 83 20 161/73 (102) 94 09/07/18 22:20 164/70 09/07/18 20:30 83 161/73 09/07/18 20:00 97.2 83 20 161/73 (102) 94 09/07/18 20:00 Room Air 09/07/18 18:43 71 18 97 Room Air 21 Intake and Output 09/07/18 09/08/18 19:00 07:00 Intake Total 220 ml Balance 220 ml Intake Oral 120 ml IV Total 100 ml # Voids 3 Height (Feet): 5 Height (Inches): 8.00 Weight (Pounds): 210 General Appearance: no apparent distress Objective no change Eamon Solis MD Sep 08, 2018 17:17
--- NOTE | 2018-09-08 18:35 | NUR ---
NURSE NOTES: scheduled HD with [facility] on 09/09/18. spoke to Nohemi.
--- NOTE | 2018-09-08 19:19 | NUR ---
HAND-OFF: Report given to CHEPE Estevez.
[2018-09-08 20:00] VITALS: BP 92/48
--- NOTE | 2018-09-08 20:10 | Surgery Progress Note ---
Surgery Progress Note Subjective Additional Comments plain film noted exam stable Objective Last 24 Hour Vital Signs Date Time Temp Pulse Resp B/P (MAP) Pulse Ox O2 Delivery O2 Flow Rate FiO2 09/08/18 16:00 98.1 72 18 136/60 (85) 99 09/08/18 14:12 144/57 09/08/18 12:00 98.0 75 18 144/57 (86) 98 09/08/18 09:08 75 144/57 09/08/18 09:07 75 144/57 09/08/18 09:00 Room Air 09/08/18 08:00 98.0 75 14 144/57 (86) 98 09/08/18 07:52 72 18 98 Room Air 21 09/08/18 05:46 154/62 09/08/18 04:00 97.6 88 20 154/62 (92) 96 09/08/18 00:00 97.6 83 20 161/73 (102) 94 09/07/18 22:20 164/70 09/07/18 20:30 83 161/73 I&O Intake and Output 09/07/18 09/08/18 19:00 07:00 Intake Total 220 ml Balance 220 ml Intake Oral 120 ml IV Total 100 ml # Voids 3 Dressing: saturated Wound: other Drains: other Cardiovascular: RSR Respiratory: clear Abdomen: soft, present bowel sounds Extremities: other Plan Problems: (1) Lower extremity cellulitis Assessment & Plan: lower extremity cellulitis improved right foot great toe looks to have progressed cont with dressings, therahoney and gauze or foam dressing Bones are osteopenic. There is an old fracture of the fifth metatarsal. No acute fracture identified. Vascular calcification noted. Plantar calcaneal spur noted. (2) Cellulitis of arm, right Assessment & Plan: 57-year-old female with multiple medical comorbidities presenting from a prison On admission patient identified to have multiple wounds Etiology of wounds potentially from trauma Patient a poor historian Patient noted to have multiple scabs on her upper and lower extremities Patient does have some distal ischemia in the toes No acute surgical intervention distribution of wounds do not seem to be rash or skin disorder. mainly trauma related will hold on skin biopsy for now will need to reinforce to patient not to pick at wounds, remove scabs, or deep scratching. appreciate psych input apply bacitracin ointment to scabs and scars on upper and lower extremity okay to wrap bilateral upper extremities with kerlix wrap to prevent patient from picking scabs and see if able to heal old traumatic wounds patient has multiple upper extremity wounds as noted prior she continues to scratch wounds and was doing so upon admission opens healing wounds and causes callus to form (3) Non-compliance with renal dialysis (4) Altered level of consciousness Vic Wise Sep 08, 2018 20:10
--- NOTE | 2018-09-08 20:40 | NUR ---
NURSE NOTES: Patient in bed, awake, alert x 2. Periods of confusion. IV site noted. SKin is warm, multiple dressing on the upper arm and legs. Side rails padded. No complaint of pain or discomfort at this time. AV shunt on the right upper arm. call light is at bedside. Bed in low and locked position. Provided safe environment. Will continue plan of care.
--- NOTE | 2018-09-08 22:45 | Progress Note ---
DATE: 09/08/2018 SUBJECTIVE: The patient is on the fourth floor. The patient continues to be noncompliant. The patient is easily agitated, confused, unable to follow direction, poor insight. MENTAL STATUS EXAMINATION: The patient is alert, confused, disoriented. Mood is agitated. Affect is constricted. Congruent with mood. Thought process is concrete. Thought content, no suicidal or homicidal ideation. ASSESSMENT: 1. Acute encephalopathy. 2. Schizoaffective disorder. PLAN: 1. We will start the patient on Seroquel 25 mg t.i.d. 2. We will continue to provide the patient with reality orientation and supportive therapy. Blanka Beckett M.D. DR: Shraddha JOB#: [id number] CC:
[2018-09-09] VITALS: BP 94/45
[2018-09-09 04:00] VITALS: BP 100/40
[2018-09-09] MEDS: HydrALAZINE 50mg tab ORAL SCH ×3 (06:00→22:09)
--- NOTE | 2018-09-09 07:14 | NUR ---
HAND-OFF: Report given to CHEPE Champagne.
[2018-09-09 08:00] VITALS: BP 149/66
--- NOTE | 2018-09-09 08:18 | NUR ---
NURSE NOTES: received pt in bed, asleep, no sign of pain or discomfort noted. Left hand IV access in place, saline locked. Bed locked at the lowest position possivle, call light within easy reach, siderails up x2. Will continue to monitor pt and follow up with the plan of care.
[2018-09-09 08:23] LABS: HEMATOCRIT 21.7 % (37.0-47.0); HEMOGLOBIN 7.1 G/DL (12.0-16.0); MEAN CORPUSCULAR VOLUME 94 FL (80-99); PLATELET COUNT 134 K/UL (150-450); RED CELL DISTRIBUTION WIDTH 13.9 % (11.6-14.8); WHITE BLOOD COUNT 4.9 K/UL (4.8-10.8)
[2018-09-09 08:36] LABS: ALANINE AMINOTRANSFERASE 8 U/L (12-78); ALBUMIN 2.3 G/DL (3.4-5.0); ALBUMIN/GLOBULIN RATIO 0.6 (1.0-2.7); ALKALINE PHOSPHATASE 99 U/L (46-116); ANION GAP 9 mmol/L (5-15); ASPARTATE AMINO TRANSFERASE 20 U/L (15-37); BILIRUBIN,TOTAL 0.5 MG/DL (0.2-1.0); BLOOD UREA NITROGEN 67 mg/dL (7-18); CALCIUM 9.4 MG/DL (8.5-10.1); CARBON DIOXIDE 25 MMOL/L (21-32); CHLORIDE 99 MMOL/L (98-107); CREATININE 10.5 MG/DL (0.55-1.30); PHOSPHORUS 8.9 MG/DL (2.5-4.9); POTASSIUM 5.1 MMOL/L (3.5-5.1); SODIUM 133 MMOL/L (136-145)
[2018-09-09] MEDS: Carvedilol 12.5mg tab ORAL SCH ×2 (09:00→20:33)
[2018-09-09] MEDS: Heparin 5000 units/ml inj SUBQ SCH ×2 (09:00→20:42)
[2018-09-09] MEDS: Sodium Polystyrene Sulfonate 15gm Powder ORAL SCH (09:00)
--- NOTE | 2018-09-09 10:04 | General Progress Note ---
Assessment/Plan Status: not improved Assessment/Plan: 57 y M with ESRD on HD who is admitted due to AMS and missing 2 dialysis sessions. # ESRD - HD done 09/06 and plan for 09/09 ( Sunday) - Dr. Solis consult appreciated, further dialysis might be needed. - Resume renal medications, binders, supplements # HTN - Resume medication and IV PRN as needed > 160 mmHg # Anemia of chronic disease / renal disease - Monitor H/H ( Hb 7.6 ) - Consiter JAMEE if indicated # Schizoaffective disorder/bipolar - Resume home medication - Dr. Beckett evaluated the patient and probate conservatorship recommended as patient continues to refuse HD and requiring re-hospitalizations. - SW and CM orders placed. 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 # Moderate protein caloric malnutrition - Albumin 2.6 - Dietary and nutritional support # FULL CODE # DVT - GI ppx # Disposition - LVT SNF resident when medically stable. Subjective Allergies: Coded Allergies: No Known Allergies (Verified , 08/23/06) Subjective patient is non compliant with history taking rendering it difficult to obtain ROS. Patient will state her name but does not answer other questions. Objective Last 24 Hour Vital Signs Date Time Temp Pulse Resp B/P (MAP) Pulse Ox O2 Delivery O2 Flow Rate FiO2 09/09/18 09:00 61 149/66 09/09/18 09:00 61 149/66 09/09/18 08:57 61 20 97 Room Air 21 09/09/18 08:00 97.0 62 20 149/66 (93) 96 09/09/18 06:00 115/55 09/09/18 04:00 97.8 59 19 100/40 (60) 96 09/09/18 00:00 98.1 68 18 94/45 (61) 97 09/08/18 21:26 92/48 09/08/18 21:26 77 92/48 09/08/18 21:00 Room Air 09/08/18 20:26 68 18 97 Room Air 21 09/08/18 20:00 98.7 77 18 92/48 (63) 96 09/08/18 16:00 98.1 72 18 136/60 (85) 99 09/08/18 14:12 144/57 09/08/18 12:00 98.0 75 18 144/57 (86) 98 Intake and Output 09/08/18 09/09/18 19:00 07:00 Intake Total 880 ml 580 ml Output Total 2000 ml Balance 880 ml -1420 ml Intake Oral 480 ml 480 ml IV Total 400 ml 100 ml Output Hemodialysis UF 2000 ml # Voids 3 2 # Bowel Movements 1 Laboratory Tests 09/09/18 07:45: White Blood Count 4.9, Red Blood Count 2.30L, Hemoglobin 7.1L, Hematocrit 21.7L , Mean Corpuscular Volume 94, Mean Corpuscular Hemoglobin 30.7, Mean Corpuscular Hemoglobin Concent 32.7, Red Cell Distribution Width 13.9, Platelet Count 134L, Mean Platelet Volume 6.7, Neutrophils (%) (Auto) , Lymphocytes (%) ( Auto) , Monocytes (%) (Auto) , Eosinophils (%) (Auto) , Basophils (%) (Auto) , Differential Total Cells Counted 100, Neutrophils % (Manual) 57, Lymphocytes % ( Manual) 23, Monocytes % (Manual) 17H, Eosinophils % (Manual) 3, Basophils % ( Manual) 0, Band Neutrophils 0, Platelet Estimate DecreasedL, Platelet Morphology Normal, Red Blood Cell Morphology Normal, Sodium Level 133L, Potassium Level 5.1, Chloride Level 99, Carbon Dioxide Level 25, Anion Gap 9, Blood Urea Nitrogen 67H, Creatinine 10.5H, Estimat Glomerular Filtration Rate 3.8, Glucose Level 99, Calcium Level 9.4, Phosphorus Level 8.9H, Magnesium Level 2.2, Total Bilirubin 0.5, Aspartate Amino Transf (AST/SGOT) 20, Alanine Aminotransferase (ALT/SGPT) 8L, Alkaline Phosphatase 99, C-Reactive Protein, Quantitative 3.9H, Pro-B-Type Natriuretic Peptide > 78033D, Total Protein 6.2L, Albumin 2.3L, Globulin 3.9, Albumin/Globulin Ratio 0.6L Height (Feet): 5 Height (Inches): 8.00 Weight (Pounds): 209 General Appearance: no apparent distress, alert Neck: non-tender, normal alignment, supple Cardiovascular: normal rate, regular rhythm, no JVD Respiratory/Chest: lungs clear, normal breath sounds, no respiratory distress, no accessory muscle use Abdomen: non tender, soft, no organomegaly, no mass Extremities: normal range of motion, non-tender Edema: no edema noted Arm (L), no edema noted Arm (R), no edema noted Leg (L), no edema noted Leg (R), no edema noted Pedal (L), no edema noted Pedal (R), no edema noted Generalized Neurologic: 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
[2018-09-09] MEDS: Bacitracin Oint UD TOPIC SCH (10:40)
[2018-09-09] MEDS: levETIRAcetam 1,000mg/NS100ml 100 ML IVPB SCH ×2 (10:40→20:45)
[2018-09-09] MEDS: Calcium Acetate 667mg Tab ORAL SCH ×3 (10:41→20:32)
[2018-09-09] MEDS: Docusate 100mg cap ORAL SCH ×3 (10:41→18:00)
[2018-09-09] MEDS: Nephrovite tab (Rena-Vite) ORAL SCH (10:41)
--- NOTE | 2018-09-09 10:42 | NUR ---
NURSE NOTES: contacted [facility] HD nurse Braydon, held Venessa per her request.
--- NOTE | 2018-09-09 11:00 | NUR ---
NURSE NOTES: notified dr. Rudolph office re: Hg 7'1. Dr Pierson called nurse, no orders received, will recheck tomorrow.
--- NOTE | 2018-09-09 11:00 | NUR ---
Social Service Note CHIKIS spoke with CHIKIS at [facility] regarding patient's missed dialysis sessions. [facility] states patient has expressed not liking the period of time she is on the dialysis machine. Patient typically will go to dialysis however about after an hour to hour and 1/2 patient will request the session to stop. Patient then will leave dialysis center not with transportation and end up on the bus looking for something to do. [facility] states recently patient went to get her hair cut and had dinner at a friend's restaurant. [facility] patient's PCP Dr. Rudolph and psychiatrist Dr. Zapata stated patient has capacity even though she makes poor decisions. [facility] states patient has an Aunt Cindy Peguero [phone] and brother Mir Zuluaga [phone], who patient speaks to on the phone but do not visit her in the SNF. [facility] states patient is compliant with medication and therapy in facility. Patient states she doesn't want to however shows poor insight into dialysis treatment. CHIKIS spoke with the public guardian's office [phone]. A referral can be made, but after discussion case with a high probability of decline as patient has capacity, doesn't have consistency of poor insight, may require LPS conservatorship but doesn't met the criteria at this time and patient has the right to refuse care. CHIKIS attempted to speak with patient regarding treatment plan of care. Patient was lethargic but verbalized that she didn't want to . Patient would not answer why she stops treatment or refuses, question asked multiple times. Messages left for Aunt and Brother, no return call at this time. Referral faxed to [phone]
[2018-09-09 12:00] VITALS: BP 147/65
--- NOTE | 2018-09-09 12:57 | Nephrology Progress Note ---
Assessment/Plan Problem List: (1) ESRD (end stage renal disease) on dialysis Assessment: presented with hyperkalemia (2) Altered level of consciousness (3) Schizoaffective disorder, bipolar type (4) Hypothyroidism (5) Anemia in chronic renal disease (6) Clotted renal dialysis arteriovenous graft Assessment Back again for missing HD ( refusing dialysis) hence becoming altered- Has high serum K examined essentially no change in exam Assessment/Plan Presents with Encephalopathy due to missing dialysis 1) ESRD (end stage renal disease) on dialysis (2) Anemia in chronic renal disease (3) Schizoaffective disorder, bipolar type (4) Diabetes mellitus, type II (5) Hypothyroidism - Cellulitis both LE - Metabolic Encephalopathy - End-stage renal disease, on hemodialysis. fistula right arm - Anemia of chronic kidney disease. - HTN / Pulmonary HTN - Diabetes type 2. -HypoThyroidism Others - Morbid obesity. - H/O Colon Cancer - H/O Hep C - H/O Depression and Bipolar disease - Psych disease uncoaporative --Bilateral leg numbness --diabetic neuropathy --L5-S1 disc protrusion Plan HD done once HD today 09/09 refusing care and tests periodically skin care / Antibiotics per consultants in med surg Subjective ROS Limited/Unobtainable: No Constitutional: Reports: malaise Objective Objective Last 24 Hour Vital Signs Date Time Temp Pulse Resp B/P (MAP) Pulse Ox O2 Delivery O2 Flow Rate FiO2 09/09/18 09:00 61 149/66 09/09/18 09:00 61 149/66 09/09/18 08:57 61 20 97 Room Air 21 09/09/18 08:00 97.0 62 20 149/66 (93) 96 09/09/18 06:00 115/55 09/09/18 04:00 97.8 59 19 100/40 (60) 96 09/09/18 00:00 98.1 68 18 94/45 (61) 97 09/08/18 21:26 92/48 09/08/18 21:26 77 92/48 09/08/18 21:00 Room Air 09/08/18 20:26 68 18 97 Room Air 21 09/08/18 20:00 98.7 77 18 92/48 (63) 96 09/08/18 16:00 98.1 72 18 136/60 (85) 99 7/21/19 14:12 144/57 Intake and Output 09/08/18 09/09/18 19:00 07:00 Intake Total 880 ml 580 ml Output Total 2000 ml Balance 880 ml -1420 ml Intake Oral 480 ml 480 ml IV Total 400 ml 100 ml Output Hemodialysis UF 2000 ml # Voids 3 2 # Bowel Movements 1 Laboratory Tests 09/09/18 07:45: White Blood Count 4.9, Red Blood Count 2.30L, Hemoglobin 7.1L, Hematocrit 21.7L , Mean Corpuscular Volume 94, Mean Corpuscular Hemoglobin 30.7, Mean Corpuscular Hemoglobin Concent 32.7, Red Cell Distribution Width 13.9, Platelet Count 134L, Mean Platelet Volume 6.7, Neutrophils (%) (Auto) , Lymphocytes (%) ( Auto) , Monocytes (%) (Auto) , Eosinophils (%) (Auto) , Basophils (%) (Auto) , Differential Total Cells Counted 100, Neutrophils % (Manual) 57, Lymphocytes % ( Manual) 23, Monocytes % (Manual) 17H, Eosinophils % (Manual) 3, Basophils % ( Manual) 0, Band Neutrophils 0, Platelet Estimate DecreasedL, Platelet Morphology Normal, Red Blood Cell Morphology Normal, Sodium Level 133L, Potassium Level 5.1, Chloride Level 99, Carbon Dioxide Level 25, Anion Gap 9, Blood Urea Nitrogen 67H, Creatinine 10.5H, Estimat Glomerular Filtration Rate 3.8, Glucose Level 99, Calcium Level 9.4, Phosphorus Level 8.9H, Magnesium Level 2.2, Total Bilirubin 0.5, Aspartate Amino Transf (AST/SGOT) 20, Alanine Aminotransferase (ALT/SGPT) 8L, Alkaline Phosphatase 99, C-Reactive Protein, Quantitative 3.9H, Pro-B-Type Natriuretic Peptide > 45073F, Total Protein 6.2L, Albumin 2.3L, Globulin 3.9, Albumin/Globulin Ratio 0.6L, Free Thyroxine 0.58L Height (Feet): 5 Height (Inches): 8.00 Weight (Pounds): 209 General Appearance: no apparent distress Objective no change Eamon Solis MD Sep 09, 2018 12:57
--- NOTE | 2018-09-09 14:06 | Surgery Progress Note ---
Surgery Progress Note Subjective Additional Comments awake and calm today upper extremity wounds improving since she has been restrained and wounds covered foot wounds unchanged podiatry and vascular eval pending Objective Last 24 Hour Vital Signs Date Time Temp Pulse Resp B/P (MAP) Pulse Ox O2 Delivery O2 Flow Rate FiO2 09/09/18 14:00 149/66 09/09/18 09:00 Room Air 09/09/18 09:00 61 149/66 09/09/18 09:00 61 149/66 09/09/18 08:57 61 20 97 Room Air 21 09/09/18 08:00 97.0 62 20 149/66 (93) 96 09/09/18 06:00 115/55 09/09/18 04:00 97.8 59 19 100/40 (60) 96 09/09/18 00:00 98.1 68 18 94/45 (61) 97 09/08/18 21:26 92/48 09/08/18 21:26 77 92/48 09/08/18 21:00 Room Air 09/08/18 20:26 68 18 97 Room Air 21 09/08/18 20:00 98.7 77 18 92/48 (63) 96 09/08/18 16:00 98.1 72 18 136/60 (85) 99 09/08/18 14:12 144/57 I&O Intake and Output 09/08/18 09/09/18 19:00 07:00 Intake Total 880 ml 580 ml Output Total 2000 ml Balance 880 ml -1420 ml Intake Oral 480 ml 480 ml IV Total 400 ml 100 ml Output Hemodialysis UF 2000 ml # Voids 3 2 # Bowel Movements 1 Dressing: saturated Wound: other Cardiovascular: RSR Respiratory: clear Abdomen: soft, present bowel sounds Extremities: cyanosis, no edema, no tenderness Laboratory Tests Test 09/09/18 07:45 White Blood Count 4.9 K/UL (4.8-10.8) Red Blood Count 2.30 M/UL (4.20-5.40) L Hemoglobin 7.1 G/DL (12.0-16.0) L Hematocrit 21.7 % (37.0-47.0) L Mean Corpuscular Volume 94 FL (80-99) Mean Corpuscular Hemoglobin 30.7 PG (27.0-31.0) Mean Corpuscular Hemoglobin Concent 32.7 G/DL (32.0-36.0) Red Cell Distribution Width 13.9 % (11.6-14.8) Platelet Count 134 K/UL (150-450) L Mean Platelet Volume 6.7 FL (6.5-10.1) Neutrophils (%) (Auto) % (45.0-75.0) Lymphocytes (%) (Auto) % (20.0-45.0) Monocytes (%) (Auto) % (1.0-10.0) Eosinophils (%) (Auto) % (0.0-3.0) Basophils (%) (Auto) % (0.0-2.0) Differential Total Cells Counted 100 Neutrophils % (Manual) 57 % (45-75) Lymphocytes % (Manual) 23 % (20-45) Monocytes % (Manual) 17 % (1-10) H Eosinophils % (Manual) 3 % (0-3) Basophils % (Manual) 0 % (0-2) Band Neutrophils 0 % (0-8) Platelet Estimate Decreased L Platelet Morphology Normal Red Blood Cell Morphology Normal Sodium Level 133 MMOL/L (136-145) L Potassium Level 5.1 MMOL/L (3.5-5.1) Chloride Level 99 MMOL/L (98-107) Carbon Dioxide Level 25 MMOL/L (21-32) Anion Gap 9 mmol/L (5-15) Blood Urea Nitrogen 67 mg/dL (7-18) H Creatinine 10.5 MG/DL (0.55-1.30) H Estimat Glomerular Filtration Rate 3.8 mL/min (>60) Glucose Level 99 MG/DL (74-106) Calcium Level 9.4 MG/DL (8.5-10.1) Phosphorus Level 8.9 MG/DL (2.5-4.9) H Magnesium Level 2.2 MG/DL (1.8-2.4) Total Bilirubin 0.5 MG/DL (0.2-1.0) Aspartate Amino Transf (AST/SGOT) 20 U/L (15-37) Alanine Aminotransferase (ALT/SGPT) 8 U/L (12-78) L Alkaline Phosphatase 99 U/L (46-116) C-Reactive Protein, Quantitative 3.9 mg/dL (0.00-0.90) H Pro-B-Type Natriuretic Peptide > 18770 pg/mL (0-125) H Total Protein 6.2 G/DL (6.4-8.2) L Albumin 2.3 G/DL (3.4-5.0) L Globulin 3.9 g/dL Albumin/Globulin Ratio 0.6 (1.0-2.7) L Free Thyroxine 0.58 NG/DL (0.76-1.46) L Plan Problems: (1) Lower extremity cellulitis Assessment & Plan: lower extremity cellulitis improved right foot great toe looks to have progressed cont with dressings, therahoney and gauze or foam dressing Bones are osteopenic. There is an old fracture of the fifth metatarsal. No acute fracture identified. Vascular calcification noted. Plantar calcaneal spur noted. pending arterial duplex pending podiatry and vascular eval thank you (2) Cellulitis of arm, right Assessment & Plan: 57-year-old female with multiple medical comorbidities presenting from a intermediate On admission patient identified to have multiple wounds Etiology of wounds potentially from trauma Patient a poor historian Patient noted to have multiple scabs on her upper and lower extremities Patient does have some distal ischemia in the toes No acute surgical intervention distribution of wounds do not seem to be rash or skin disorder. mainly trauma related will hold on skin biopsy for now will need to reinforce to patient not to pick at wounds, remove scabs, or deep scratching. appreciate psych input apply bacitracin ointment to scabs and scars on upper and lower extremity okay to wrap bilateral upper extremities with kerlix wrap to prevent patient from picking scabs and see if able to heal old traumatic wounds patient has multiple upper extremity wounds as noted prior she continues to scratch wounds and was doing so upon admission opens healing wounds and causes callus to form (3) Non-compliance with renal dialysis (4) Altered level of consciousness Vic Wise Sep 09, 2018 14:06
--- NOTE | 2018-09-09 14:48 | NUR ---
ST notes: REFERRAL FOR SWALLOW EVAL RECEIVED, CHART REVIEWED WILL ASSESS TOMORROW DUE TO SCHEDULE CONFLICTS TODAY. PER RN, NO OVERT S/S OF ASPIRATION WITH CURRENT [facility] SOFT CHOPPED AND THIN LIQUID DIET WITH 50 TO 75% INTAKE. PLAN: SWALLOW EVAL TOMORROW.
--- NOTE | 2018-09-09 15:53 | NUR ---
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 ANEMIA VS: BP 149/66, P 62, T 97.0, RR 20, SpO2 96 RBC 2.30, H&H 7.1/21.7, Na 133, BUN 67, CR 10.5 IS:APRESOLINE 75mg PHOSLO 1334mg SEROQUEL 25mg NORVASC 10mg KEPPRA 1000mg COREG 12.5mg MED/SURG STATUS
[2018-09-09 16:00] VITALS: BP 118/78
--- NOTE | 2018-09-09 18:55 | NUR ---
NURSE NOTES: left message to dr. Solis re: Kayaxelate not being given per HD RN Young request. Pt is still undergoing HD so all 18:00 meds are not yet given, also per HD RN request.
--- NOTE | 2018-09-09 19:30 | NUR ---
HAND-OFF: Report given to CHEPE Saini.
[2018-09-09 20:00] VITALS: BP 127/78
--- NOTE | 2018-09-09 20:45 | Cardiology Report ---
APPROVED REPORT EKG Measurement Heart [id number] FL [id number] [id number] Suspect arm lead reversal, interpretation assumes no reversal Normal sinus rhythm Right axis deviation Pulmonary disease pattern Septal infarct, age undetermined Abnormal ECG
[2018-09-10] VITALS (7 sets, daily range): BP systolic 115–190; BP diastolic 65–85
[2018-09-10] MEDS: HydrALAZINE 25mg tab ORAL PRN (04:41)
[2018-09-10] MEDS: HydrALAZINE 50mg tab ORAL SCH ×3 (06:32→21:26)
--- NOTE | 2018-09-10 08:08 | NUR ---
NURSE NOTES: Patient awake and alert to name,patient reoriented.Shunt right arm with bruit and thrill.DR Martinez here to see patient.Breakfast at bedside,will assist patient.Side rails padded.soft wrist restraints on.Call light within reach.
[2018-09-10] MEDS: Sodium Polystyrene Sulfonate 15gm Powder ORAL SCH ×2 (09:00→10:14)
[2018-09-10] MEDS: Heparin 5000 units/ml inj SUBQ SCH ×2 (09:00→21:27)
[2018-09-10] MEDS: levETIRAcetam 1,000mg/NS100ml 100 ML IVPB SCH ×2 (09:00→10:13)
--- NOTE | 2018-09-10 09:32 | General Progress Note ---
Assessment/Plan Status: not improved Assessment/Plan: 57 y M with ESRD on HD who is admitted due to AMS and missing 2 dialysis sessions. # ESRD - Dr. Solis consult appreciated, further dialysis might be needed. - Resume renal medications, binders, supplements # HTN - Resume medication and IV PRN as needed > 160 mmHg # B/L toe gangrene - appreciate vascular surgery evaluation and recs - Will need staged bilateral leg angiogram & percutaneous revascularizations prior to toe gangrene amputation # Anemia of chronic disease / renal disease - Monitor H/H ( Hb 7.6 ) - Consiter JAMEE if indicated # Schizoaffective disorder/bipolar - Resume home medication - Dr. Beckett evaluated the patient and probate conservatorship recommended as patient continues to refuse HD and requiring re-hospitalizations. - SW and CM orders placed. 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 # Moderate protein caloric malnutrition - Albumin 2.6 - Dietary and nutritional support # FULL CODE # DVT - GI ppx # Disposition - came from snf however patient continues to be re-admitted because she refuses HD. She is able to make medical decisions although she chooses bad ones, therefore, will unlikely undergo conservatorship - referral sent to LT[facility] where patient would have HD continued Subjective Date patient seen: Sep 10, 2018 Time patient seen: 08:00 ROS Limited/Unobtainable: Yes Allergies: Coded Allergies: No Known Allergies (Verified , 08/23/06) Subjective patient is non compliant with history taking rendering it difficult to obtain ROS. Patient will state her name but does not answer other questions. notes reviewed regarding conservatorship see below Objective Last 24 Hour Vital Signs Date Time Temp Pulse Resp B/P (MAP) Pulse Ox O2 Delivery O2 Flow Rate FiO2 09/10/18 06:32 133/82 09/10/18 04:41 172/95 09/10/18 04:00 97.3 67 19 172/85 (114) 90 09/10/18 00:00 98.2 74 18 137/70 (92) 90 09/09/18 23:02 74 20 93 Room Air 21 09/09/18 22:25 Room Air 09/09/18 22:09 118/78 09/09/18 20:33 68 118/78 09/09/18 20:00 97.3 75 22 127/78 (94) 95 09/09/18 16:00 97.1 68 20 118/78 (91) 94 09/09/18 14:00 149/66 09/09/18 12:00 97.8 65 18 147/65 (92) 99 Intake and Output 09/09/18 09/10/18 19:00 07:00 Intake Total 480 ml 300 ml Balance 480 ml 300 ml Intake Oral 480 ml 300 ml # Voids 2 1 Height (Feet): 5 Height (Inches): 8.00 Weight (Pounds): 210 General Appearance: no apparent distress, alert Neck: non-tender, supple Cardiovascular: normal rate, regular rhythm, no JVD Respiratory/Chest: lungs clear, normal breath sounds, no respiratory distress, no accessory muscle use Abdomen: non tender, soft, no organomegaly, no mass Extremities: other - right fistula sight, +palpabe thrill, right toe gangrene , multiple scratches on extremities Edema: no edema noted Arm (L), no edema noted Arm (R), no edema noted Leg (L), no edema noted Leg (R), no edema noted Pedal (L), no edema noted Pedal (R), no edema noted Generalized Neurologic: gift officer II-XII grossly normal Christal Pierson DO Sep 10, 2018 09:31
[2018-09-10] MEDS: Docusate 100mg cap ORAL SCH ×3 (10:14→18:30)
[2018-09-10] MEDS: Carvedilol 12.5mg tab ORAL SCH ×2 (10:14→21:25)
[2018-09-10] MEDS: Nephrovite tab (Rena-Vite) ORAL SCH (10:15)
[2018-09-10] MEDS: Calcium Acetate 667mg Tab ORAL SCH ×3 (10:16→18:30)
[2018-09-10] MEDS: Bacitracin Oint UD TOPIC SCH (10:30)
[2018-09-10 11:01] LABS: BASOPHILS % (AUTO) 1.4 % (0.0-2.0); HEMATOCRIT 25.7 % (37.0-47.0); HEMOGLOBIN 8.4 G/DL (12.0-16.0); LYMPHOCYTES % (AUTO) 11.9 % (20.0-45.0); MEAN CORPUSCULAR VOLUME 94 FL (80-99); MONOCYTES % (AUTO) 7.9 % (1.0-10.0); NEUTROPHILS % (AUTO) 76.9 % (45.0-75.0); PLATELET COUNT 159 K/UL (150-450); RED BLOOD COUNT 2.74 M/UL (4.20-5.40); WHITE BLOOD COUNT 5.6 K/UL (4.8-10.8)
--- NOTE | 2018-09-10 11:01 | NUR ---
NURSE NOTES:Patient iv not working,noted slight swelling,unable to give the ivpb DR Irma Dobson aware ,Dr state he will change medication to Po.
[2018-09-10 11:06] LABS: ANION GAP 8 mmol/L (5-15); BLOOD UREA NITROGEN 34 mg/dL (7-18); CALCIUM 9.9 MG/DL (8.5-10.1); CARBON DIOXIDE 29 MMOL/L (21-32); CHLORIDE 97 MMOL/L (98-107); CREATININE 6.8 MG/DL (0.55-1.30); POTASSIUM 4.4 MMOL/L (3.5-5.1); SODIUM 134 MMOL/L (136-145)
--- NOTE | 2018-09-10 11:08 | General Progress Note ---
Progress Note Progress Note Patient seen and examined Asked by Dr Escamilla to evaluate toe gangrene with PAD Confused psychosis ESRD on HD via right cephalic vein avf HTN Obesity Arm wounds Hep C Calcific multilevel occlusive PAD with 2+ femorals absent pop and pedal pulses Bilateral toe dry gangrene Rec Medical optimization in progress Decub and dvt precautions Antiplatelet & statin Social work psych eval and assign POA Will need staged bilateral leg angiogram & percutaneous revascularizations prior to toe gangrene amputation d/w pt and nurse at bedside Terry Martinez MD Sep 10, 2018 11:08
--- NOTE | 2018-09-10 11:24 | NUR ---
SWALLOW/SPEECH THERAPY NOTE: REFERRED BY DR MCCOY FOR SWALLOW EVALUATION, SEE FULL REPORT TO FOLLOW. DYSPHAGIA RISK FACTORS FOR THIS 57 Y.O.F.: ACUTE ISSUES MISSED 2 DIALYSIS VISITS, AMS, POOR ABILITY TO SWALLOW FOR 2 DAYS, LUNGS: CARDIOMEGALY WITH BILAT INTERSTITIAL AIRSPACE EDEMA, HIGH BLOOD PRESSURE BUT GOOD RR OF 20 ON ROOM AIR. H/O CVA, SEIZURES, NEUROLOGIC D/O (DID NOT SPECIFY WHICH), METABOLIC ENCEPHALOPATHY, PHARYNGITIS, PNA, COPD, RESP D/O, ALCOHOL, OBESITY CLASS I, GERD, SCHIZOAFFECTIVE D/O, BIPOLAR D/O, MDD (ON SEROQUEL SEDATING EFFECT), DM2, COLON CA, ACS, ESRD WITH HD, HEP C. NO POLST NOR ADVANCE DIRECTIVE REGARDING ARTIFICIAL NUTRITION PREFERENCES. AT SNF ON A NCS, JOHNY MECH SOFT CHOPPED AND THIN LIQUID DIET. PER RD BEST TO HAVE RENAL DIET. CURRENTLY ON A RENAL MECH SOFT CHOPPED DIET (ST ASKED RN TO DOWNGRADE LAST NIGHT UNTIL SWALLOW EVAL) AND THIN LIQUIDS WITH POOR TO FAIR INTAKE WITH PERIODS OF REFUSING THOUGH HAD PROBLEMS SWALLOWING THE AND . PER RN, GOOD INTAKE WITH PILLS AND WATER. PATIENT ALERT AND ABLE TO EXPRESS SOME BASIC NEEDS. REFUSING PO TRIALS. HAS GOOD DENTITION. INITIAL IMPRESSIONS: HAS RISK FOR DYSPHAGIA AND SILENT ASPIRATION GIVEN H/O CVA AND SZ AND INITIALLY COULD NOT SWALLOW IS CLEARING HER THROAT W/O PO TRIALS BUT DOES NOT APPEAR TO NEED SUCTIONING. PER RN, NO OVERT S/S OF ASPIRATION WITH THIN LIQUIDS AND PILLS WHOLE NOR MEALS. HAS INADEQUATE INTAKE RISK RECOMMENDATIONS: COMPLETE MOD BARIUM SWALLOW STUDY ONLY WHEN RECEPTIVE TO PO TRIALS WITH ST TO FURTHER ASSESS SWALLOW, DETERMINE SILENT ASP RISK, AND ATTEMPT TRIAL TX TECHNIQUES. IF PO CONTINUES FOR QUALITY OF LIFE, CONSIDER DOWNGRADE TO MECH SOFT CHOPPED FINELY CHOPPED AND NECTAR THICK LIQUIDS FOR NOW (CHANGE TO THIN IF REFUSES THICKENED LIQUIDS) USING POSTED ASPIRATION AND REFLUX PRECAUTONS WITH ONE TO ONE FEEDING. SKILLED DYSPHAGIA MANAGEMENT AND TX EDUCATED/TRAINED CHEPE DEJESUS IN POSTED/ASPIRATION PRECAUTIONS. LEFT MESSAGE WITH
--- NOTE | 2018-09-10 12:57 | Surgery Progress Note ---
Surgery Progress Note Subjective Additional Comments vascular input appreciated arterial duplex with calcified peripheral disease no acute events comfortable Objective Last 24 Hour Vital Signs Date Time Temp Pulse Resp B/P (MAP) Pulse Ox O2 Delivery O2 Flow Rate FiO2 09/10/18 10:15 70 196/79 09/10/18 10:14 70 196/76 09/10/18 08:00 97.3 81 19 152/83 (106) 94 09/10/18 06:32 133/82 09/10/18 04:41 172/95 09/10/18 04:00 97.3 67 19 172/85 (114) 90 09/10/18 00:00 98.2 74 18 137/70 (92) 90 09/09/18 23:02 74 20 93 Room Air 21 09/09/18 22:25 Room Air 09/09/18 22:09 118/78 09/09/18 20:33 68 118/78 09/09/18 20:00 97.3 75 22 127/78 (94) 95 09/09/18 16:00 97.1 68 20 118/78 (91) 94 09/09/18 14:00 149/66 I&O Intake and Output 09/09/18 09/10/18 19:00 07:00 Intake Total 480 ml 300 ml Balance 480 ml 300 ml Intake Oral 480 ml 300 ml # Voids 2 1 Dressing: saturated Wound: other Cardiovascular: RSR Respiratory: clear Abdomen: soft, present bowel sounds Extremities: edema, cyanosis Laboratory Tests Test 09/10/18 10:45 White Blood Count 5.6 K/UL (4.8-10.8) Red Blood Count 2.74 M/UL (4.20-5.40) L Hemoglobin 8.4 G/DL (12.0-16.0) L Hematocrit 25.7 % (37.0-47.0) L Mean Corpuscular Volume 94 FL (80-99) Mean Corpuscular Hemoglobin 30.6 PG (27.0-31.0) Mean Corpuscular Hemoglobin Concent 32.7 G/DL (32.0-36.0) Red Cell Distribution Width 13.0 % (11.6-14.8) Platelet Count 159 K/UL (150-450) Mean Platelet Volume 7.3 FL (6.5-10.1) Neutrophils (%) (Auto) 76.9 % (45.0-75.0) H Lymphocytes (%) (Auto) 11.9 % (20.0-45.0) L Monocytes (%) (Auto) 7.9 % (1.0-10.0) Eosinophils (%) (Auto) 2.0 % (0.0-3.0) Basophils (%) (Auto) 1.4 % (0.0-2.0) Sodium Level 134 MMOL/L (136-145) L Potassium Level 4.4 MMOL/L (3.5-5.1) Chloride Level 97 MMOL/L (98-107) L Carbon Dioxide Level 29 MMOL/L (21-32) Anion Gap 8 mmol/L (5-15) Blood Urea Nitrogen 34 mg/dL (7-18) H Creatinine 6.8 MG/DL (0.55-1.30) H Estimat Glomerular Filtration Rate 6.2 mL/min (>60) Glucose Level 101 MG/DL (74-106) Calcium Level 9.9 MG/DL (8.5-10.1) Plan Problems: (1) Lower extremity cellulitis Assessment & Plan: lower extremity cellulitis improved right foot great toe looks to have progressed cont with dressings, therahoney and gauze or foam dressing Bones are osteopenic. There is an old fracture of the fifth metatarsal. No acute fracture identified. Vascular calcification noted. Plantar calcaneal spur noted. Antiplatelet & statin Social work psych eval and assign POA Will need staged bilateral leg angiogram & percutaneous revascularizations prior to toe gangrene amputation thank you (2) Cellulitis of arm, right Assessment & Plan: 57-year-old female with multiple medical comorbidities presenting from a alf On admission patient identified to have multiple wounds Etiology of wounds potentially from trauma Patient a poor historian Patient noted to have multiple scabs on her upper and lower extremities Patient does have some distal ischemia in the toes No acute surgical intervention distribution of wounds do not seem to be rash or skin disorder. mainly trauma related will hold on skin biopsy for now will need to reinforce to patient not to pick at wounds, remove scabs, or deep scratching. appreciate psych input apply bacitracin ointment to scabs and scars on upper and lower extremity okay to wrap bilateral upper extremities with kerlix wrap to prevent patient from picking scabs and see if able to heal old traumatic wounds patient has multiple upper extremity wounds as noted prior she continues to scratch wounds and was doing so upon admission opens healing wounds and causes callus to form (3) Non-compliance with renal dialysis (4) Altered level of consciousness Vic Wise Sep 10, 2018 12:56
--- NOTE | 2018-09-10 13:29 | Nephrology Progress Note ---
Assessment/Plan Problem List: (1) ESRD (end stage renal disease) on dialysis Assessment: presented with hyperkalemia (2) Altered level of consciousness (3) Schizoaffective disorder, bipolar type (4) Hypothyroidism (5) Anemia in chronic renal disease (6) Clotted renal dialysis arteriovenous graft Assessment Back again for missing HD ( refusing dialysis) hence becoming altered- Has high serum K examined essentially no change in exam Assessment/Plan Presents with Encephalopathy due to missing dialysis 1) ESRD (end stage renal disease) on dialysis (2) Anemia in chronic renal disease (3) Schizoaffective disorder, bipolar type (4) Diabetes mellitus, type II (5) Hypothyroidism - Cellulitis both LE - Metabolic Encephalopathy - End-stage renal disease, on hemodialysis. fistula right arm - Anemia of chronic kidney disease. - HTN / Pulmonary HTN - Diabetes type 2. -HypoThyroidism Others - Morbid obesity. - H/O Colon Cancer - H/O Hep C - H/O Depression and Bipolar disease - Psych disease uncoaporative --Bilateral leg numbness --diabetic neuropathy --L5-S1 disc protrusion Plan HD done once HD 09/09 next 09/11 refusing care and tests periodically skin care / Antibiotics per consultants anti Sz med to po in med surg Subjective ROS Limited/Unobtainable: No Constitutional: Reports: malaise, weakness Objective Objective Last 24 Hour Vital Signs Date Time Temp Pulse Resp B/P (MAP) Pulse Ox O2 Delivery O2 Flow Rate FiO2 09/10/18 12:00 97.7 70 19 115/75 (88) 96 09/10/18 10:15 70 196/79 09/10/18 10:14 70 196/76 09/10/18 09:00 Room Air 09/10/18 08:00 97.3 81 19 152/83 (106) 94 09/10/18 06:32 133/82 09/10/18 04:41 172/95 09/10/18 04:00 97.3 67 19 172/85 (114) 90 09/10/18 00:00 98.2 74 18 137/70 (92) 90 09/09/18 23:02 74 20 93 Room Air 21 09/09/18 22:25 Room Air 09/09/18 22:09 118/78 09/09/18 20:33 68 118/78 09/09/18 20:00 97.3 75 22 127/78 (94) 95 09/09/18 16:00 97.1 68 20 118/78 (91) 94 09/09/18 14:00 149/66 Intake and Output 09/09/18 09/10/18 19:00 07:00 Intake Total 480 ml 300 ml Balance 480 ml 300 ml Intake Oral 480 ml 300 ml # Voids 2 1 Laboratory Tests 09/10/18 10:45: White Blood Count 5.6, Red Blood Count 2.74L, Hemoglobin 8.4L, Hematocrit 25.7L , Mean Corpuscular Volume 94, Mean Corpuscular Hemoglobin 30.6, Mean Corpuscular Hemoglobin Concent 32.7, Red Cell Distribution Width 13.0, Platelet Count 159, Mean Platelet Volume 7.3, Neutrophils (%) (Auto) 76.9H, Lymphocytes ( %) (Auto) 11.9L, Monocytes (%) (Auto) 7.9, Eosinophils (%) (Auto) 2.0, Basophils (%) (Auto) 1.4, Sodium Level 134L, Potassium Level 4.4, Chloride Level 97L, Carbon Dioxide Level 29, Anion Gap 8, Blood Urea Nitrogen 34H, Creatinine 6.8H, Estimat Glomerular Filtration Rate 6.2, Glucose Level 101, Calcium Level 9.9 Height (Feet): 5 Height (Inches): 8.00 Weight (Pounds): 210 General Appearance: no apparent distress Cardiovascular: normal rate Respiratory/Chest: decreased breath sounds Abdomen: distended Objective no change Eamon Solis MD Sep 10, 2018 13:29
--- NOTE | 2018-09-10 15:00 | NUR ---
NURSE NOTES: [facility] notified per DR Solis order ,dialysis ordered placed for 09/11/18.Patricia at call center will notify the Dialysis Nurse.
--- NOTE | 2018-09-10 15:35 | NUR ---
RD ASSESSMENT & RECOMMENDATIONS SEE CARE ACTIVITY FOR COMPLETE ASSESSMENT DAILY ESTIMATED NEEDS: Needs based on ESRD on HD, obese 67kg Adj 25-30 kcals/kg [id number] total kcals 1.2-1.8 g protein/kg 80-121 g total protein Fluid per MD, on HD NUTRITION DIAGNOSIS: * Increased protein needs r/t renal dysfunction as evidenced by ESRD dx on HD. * Swallowing difficulty R/T dysphagia, confusion, lethargy as evidenced by PO meds and meals held upon adm, now more alert, s/p ELECTROMATIC TYPIST evaluation w/ rec for mech soft finely chopped, NTL CURRENT DIET:RENAL, mech soft finely chopped, NTL PO DIET RECOMMENDATIONS: RENAL/ texture per ELECTROMATIC TYPIST ADDITIONAL RECOMMENDATIONS: * Calibrated bedscale wt for accurate CBW, obtain dry wt post HD * Monitor lytes and renal fxn (phos elev) * Monitor BGs, need for NISS, carb controlled diet: h/o DM * Monitor Po intake and tolerance closely -> fair to good PO intake at this time
--- NOTE | 2018-09-10 15:44 | NUR ---
CHARGE NURSE NOTE: Pt is scheduled for HD tomorrow 09/11/18. [facility] center notified.
--- NOTE | 2018-09-10 18:35 | NUR ---
NURSE NOTES: Patient resting,dressing to the right foot with a small amount of drainage noted,area marked .Dialysis catheter remains with strong bruit and thrill,bed alarm is department store salesperson light within reach.
--- NOTE | 2018-09-10 19:23 | NUR ---
HAND-OFF: Report given to Herb MO.
--- NOTE | 2018-09-10 19:52 | NUR ---
NURSE NOTES: Patient is in bed, awake, alert x 2. Able to make simple needs known. Respiration is even and unlabored. Kept clean and comfortable. Bed in low and locked position. Skin is warm and dry to touch. Dressing noted on bilateral foot. Iv site noted. Call light is at bedside. Will continue plan of care.
[2018-09-11] VITALS (7 sets, daily range): BP systolic 127–179; BP diastolic 67–77
--- NOTE | 2018-09-11 01:10 | NUR ---
NURSE NOTES: Refused dressing change on the right foot. Betadine applied to the left foot. Will reassess.
[2018-09-11] MEDS: HydrALAZINE 25mg tab ORAL PRN (04:57)
[2018-09-11] MEDS: HydrALAZINE 50mg tab ORAL SCH ×3 (05:54→21:21)
--- NOTE | 2018-09-11 07:14 | NUR ---
HAND-OFF: Report given to Gracia Carr.
[2018-09-11 07:58] LABS: ALANINE AMINOTRANSFERASE 6 U/L (12-78); ALBUMIN 2.4 G/DL (3.4-5.0); ALBUMIN/GLOBULIN RATIO 0.5 (1.0-2.7); ALKALINE PHOSPHATASE 108 U/L (46-116); ANION GAP 13 mmol/L (5-15); ASPARTATE AMINO TRANSFERASE 26 U/L (15-37); BILIRUBIN,TOTAL 0.5 MG/DL (0.2-1.0); BLOOD UREA NITROGEN 41 mg/dL (7-18); CALCIUM 9.9 MG/DL (8.5-10.1); CARBON DIOXIDE 26 MMOL/L (21-32); CHLORIDE 97 MMOL/L (98-107); CREATININE 7.7 MG/DL (0.55-1.30); PHOSPHORUS 5.9 MG/DL (2.5-4.9); POTASSIUM 4.8 MMOL/L (3.5-5.1); SODIUM 136 MMOL/L (136-145)
--- NOTE | 2018-09-11 08:02 | NUR ---
NURSE NOTES: Patient is awake and alert to name,patient reoriented to place,date,year ,respirations unlabored,patient sitting up in bed.patient breakfast at bedside will assist . Dialysis catheter right arm with strong bruit and thrill.Dressing to the right foot clean .Bed alarm is on,call light within reach.
[2018-09-11] MEDS: Carvedilol 12.5mg tab ORAL SCH ×2 (09:00→21:20)
[2018-09-11] MEDS: Heparin 5000 units/ml inj SUBQ SCH ×2 (09:00→21:16)
[2018-09-11] MEDS: Docusate 100mg cap ORAL SCH ×3 (09:11→18:49)
[2018-09-11] MEDS: Bacitracin Oint UD TOPIC SCH (09:12)
[2018-09-11] MEDS: Calcium Acetate 667mg Tab ORAL SCH ×3 (09:12→18:49)
[2018-09-11] MEDS: Nephrovite tab (Rena-Vite) ORAL SCH (09:13)
--- NOTE | 2018-09-11 13:31 | NUR ---
NURSE NOTES: Patient receiving dialysis as ordered .patient eyes closed,respirations unlabored arousable .will monitor.
--- NOTE | 2018-09-11 14:58 | NUR ---
DISCHARGE PLANNING FAXED REFERRAL TO [facility] WHERE PATIENT WAS ADMITTED FROM. F [phone]. WILL FOLLOW UP
--- NOTE | 2018-09-11 15:05 | Nephrology Progress Note ---
Assessment/Plan Problem List: (1) ESRD (end stage renal disease) on dialysis Assessment: presented with hyperkalemia (2) Altered level of consciousness (3) Schizoaffective disorder, bipolar type (4) Hypothyroidism (5) Anemia in chronic renal disease (6) Clotted renal dialysis arteriovenous graft Assessment Back again for missing HD ( refusing dialysis) hence becoming altered- Has high serum K examined essentially no change in exam Assessment/Plan Presents with Encephalopathy due to missing dialysis 1) ESRD (end stage renal disease) on dialysis (2) Anemia in chronic renal disease (3) Schizoaffective disorder, bipolar type (4) Diabetes mellitus, type II (5) Hypothyroidism - Cellulitis both LE - Metabolic Encephalopathy - End-stage renal disease, on hemodialysis. fistula right arm - Anemia of chronic kidney disease. - HTN / Pulmonary HTN - Diabetes type 2. -HypoThyroidism Others - Morbid obesity. - H/O Colon Cancer - H/O Hep C - H/O Depression and Bipolar disease - Psych disease uncoaporative --Bilateral leg numbness --diabetic neuropathy --L5-S1 disc protrusion Plan HD done once HD 09/09 next 09/11 refusing care and tests periodically skin care / Antibiotics per consultants anti Sz med to po in med surg Subjective ROS Limited/Unobtainable: No Constitutional: Reports: malaise Objective Objective Last 24 Hour Vital Signs Date Time Temp Pulse Resp B/P (MAP) Pulse Ox O2 Delivery O2 Flow Rate FiO2 09/11/18 12:00 98.8 69 20 168/74 (105) 95 09/11/18 10:32 Room Air 09/11/18 09:43 72 18 96 Room Air 21 09/11/18 08:00 97.7 63 19 171/67 (101) 93 09/11/18 06:30 158/73 (101) 09/11/18 05:54 163/66 09/11/18 04:57 179/67 09/11/18 04:00 98.3 66 18 179/77 (111) 96 09/11/18 00:00 98.6 68 18 162/71 (101) 96 09/10/18 22:30 97.4 66 20 165/71 (102) 95 09/10/18 21:26 190/76 09/10/18 21:25 66 190/76 09/10/18 21:00 Room Air 09/10/18 20:14 69 20 95 Room Air 21 09/10/18 20:00 97.4 66 20 190/76 (114) 95 09/10/18 16:00 97.7 67 20 129/65 (86) 94 Intake and Output 09/10/18 09/11/18 19:00 07:00 Intake Total 480 ml Balance 480 ml Intake Oral 480 ml # Voids 3 1 Laboratory Tests 09/11/18 06:15: Sodium Level 136, Potassium Level 4.8, Chloride Level 97L, Carbon Dioxide Level 26, Anion Gap 13, Blood Urea Nitrogen 41H, Creatinine 7.7H, Estimat Glomerular Filtration Rate 5.4, Glucose Level 98, Uric Acid 5.2, Calcium Level 9.9, Phosphorus Level 5.9H, Magnesium Level 2.2, Total Bilirubin 0.5, Aspartate Amino Transf (AST/SGOT) 26, Alanine Aminotransferase (ALT/SGPT) 6L, Alkaline Phosphatase 108, C-Reactive Protein, Quantitative 3.3H, Pro-B-Type Natriuretic Peptide > 27892C, Total Protein 6.8, Albumin 2.4L, Globulin 4.4, Albumin/ Globulin Ratio 0.5L Height (Feet): 5 Height (Inches): 8.00 Weight (Pounds): 192 General Appearance: no apparent distress Objective no change Eamon Solis MD Sep 11, 2018 15:05
--- NOTE | 2018-09-11 15:52 | General Progress Note ---
Assessment/Plan Status: not improved Assessment/Plan: 57 y M with ESRD on HD who is admitted due to AMS and missing 2 dialysis sessions. # ESRD - Dr. Solis consult appreciated, -HD per renal - Resume renal medications, binders, supplements # HTN - Resume medication and IV PRN as needed > 160 mmHg # B/L toe gangrene - appreciate vascular surgery evaluation and recs - Will need staged bilateral leg angiogram & percutaneous revascularizations prior to toe gangrene amputation # Anemia of chronic disease / renal disease - Monitor H/H ( Hb 7.6 ) - Consider JAMEE if indicated # Schizoaffective disorder/bipolar - Resume home medication - Dr. Beckett evaluated the patient and probate conservatorship recommended as patient continues to refuse HD and requiring re-hospitalizations. - SW and CM orders placed. 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 # Moderate protein caloric malnutrition - Albumin 2.6 - Dietary and nutritional support # FULL CODE # DVT - GI ppx # Disposition - came from snf however patient continues to be re-admitted because she refuses HD. pt has no capacity therefore, will likely undergo conservatorship - referral sent to LTAC where patient would have HD continued Subjective Date patient seen: Sep 11, 2018 ROS Limited/Unobtainable: Yes Allergies: Coded Allergies: No Known Allergies (Verified , 08/23/06) Subjective no acute overnight events, pt states name but does not answer other questions. Plan for HD today, discussed with psychiatrist, pt has no capacity, will start process to obtain conservatorship Objective Last 24 Hour Vital Signs Date Time Temp Pulse Resp B/P (MAP) Pulse Ox O2 Delivery O2 Flow Rate FiO2 09/11/18 12:00 98.8 69 20 168/74 (105) 95 09/11/18 10:32 Room Air 09/11/18 09:43 72 18 96 Room Air 21 09/11/18 08:00 97.7 63 19 171/67 (101) 93 09/11/18 06:30 158/73 (101) 09/11/18 05:54 163/66 09/11/18 04:57 179/67 09/11/18 04:00 98.3 66 18 179/77 (111) 96 09/11/18 00:00 98.6 68 18 162/71 (101) 96 09/10/18 22:30 97.4 66 20 165/71 (102) 95 09/10/18 21:26 190/76 09/10/18 21:25 66 190/76 09/10/18 21:00 Room Air 09/10/18 20:14 69 20 95 Room Air 21 09/10/18 20:00 97.4 66 20 190/76 (114) 95 09/10/18 16:00 97.7 67 20 129/65 (86) 94 Intake and Output 09/10/18 09/11/18 19:00 07:00 Intake Total 480 ml Balance 480 ml Intake Oral 480 ml # Voids 3 1 Laboratory Tests 09/11/18 06:15: Sodium Level 136, Potassium Level 4.8, Chloride Level 97L, Carbon Dioxide Level 26, Anion Gap 13, Blood Urea Nitrogen 41H, Creatinine 7.7H, Estimat Glomerular Filtration Rate 5.4, Glucose Level 98, Uric Acid 5.2, Calcium Level 9.9, Phosphorus Level 5.9H, Magnesium Level 2.2, Total Bilirubin 0.5, Aspartate Amino Transf (AST/SGOT) 26, Alanine Aminotransferase (ALT/SGPT) 6L, Alkaline Phosphatase 108, C-Reactive Protein, Quantitative 3.3H, Pro-B-Type Natriuretic Peptide > 51458M, Total Protein 6.8, Albumin 2.4L, Globulin 4.4, Albumin/ Globulin Ratio 0.5L Height (Feet): 5 Height (Inches): 8.00 Weight (Pounds): 192 Objective General Appearance: no apparent distress, alert Neck: non-tender, supple Cardiovascular: normal rate, regular rhythm, no JVD Respiratory/Chest: lungs clear, normal breath sounds, no respiratory distress, no accessory muscle use Abdomen: non tender, soft, no organomegaly, no mass Extremities: other - right fistula sight, +palpabe thrill, right toe gangrene , multiple scratches on extremities Edema: no edema noted Arm (L), no edema noted Arm (R), no edema noted Leg (L), no edema noted Leg (R), no edema noted Pedal (L), no edema noted Pedal (R), no edema noted 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
--- NOTE | 2018-09-11 15:59 | NUR ---
Social Service Note Savannah Oviedo was assigned as the [facility] child protective investigator [phone] (p) [phone] (f). Additional information faxed to Savannah.
--- NOTE | 2018-09-11 16:13 | Surgery Progress Note ---
Surgery Progress Note Subjective Additional Comments no acute events stable comfortable Objective Last 24 Hour Vital Signs Date Time Temp Pulse Resp B/P (MAP) Pulse Ox O2 Delivery O2 Flow Rate FiO2 09/11/18 12:00 98.8 69 20 168/74 (105) 95 09/11/18 10:32 Room Air 09/11/18 09:43 72 18 96 Room Air 21 09/11/18 08:00 97.7 63 19 171/67 (101) 93 09/11/18 06:30 158/73 (101) 09/11/18 05:54 163/66 09/11/18 04:57 179/67 09/11/18 04:00 98.3 66 18 179/77 (111) 96 09/11/18 00:00 98.6 68 18 162/71 (101) 96 09/10/18 22:30 97.4 66 20 165/71 (102) 95 09/10/18 21:26 190/76 09/10/18 21:25 66 190/76 09/10/18 21:00 Room Air 09/10/18 20:14 69 20 95 Room Air 21 09/10/18 20:00 97.4 66 20 190/76 (114) 95 I&O Intake and Output 09/10/18 09/11/18 19:00 07:00 Intake Total 480 ml Balance 480 ml Intake Oral 480 ml # Voids 3 1 Dressing: saturated Wound: other Drains: other Cardiovascular: RSR Respiratory: clear Abdomen: soft, present bowel sounds Extremities: no cyanosis, other Laboratory Tests Test 09/11/18 06:15 Sodium Level 136 MMOL/L (136-145) Potassium Level 4.8 MMOL/L (3.5-5.1) Chloride Level 97 MMOL/L (98-107) L Carbon Dioxide Level 26 MMOL/L (21-32) Anion Gap 13 mmol/L (5-15) Blood Urea Nitrogen 41 mg/dL (7-18) H Creatinine 7.7 MG/DL (0.55-1.30) H Estimat Glomerular Filtration Rate 5.4 mL/min (>60) Glucose Level 98 MG/DL (74-106) Uric Acid 5.2 MG/DL (2.6-7.2) Calcium Level 9.9 MG/DL (8.5-10.1) Phosphorus Level 5.9 MG/DL (2.5-4.9) H Magnesium Level 2.2 MG/DL (1.8-2.4) Total Bilirubin 0.5 MG/DL (0.2-1.0) Aspartate Amino Transf (AST/SGOT) 26 U/L (15-37) Alanine Aminotransferase (ALT/SGPT) 6 U/L (12-78) L Alkaline Phosphatase 108 U/L (46-116) C-Reactive Protein, Quantitative 3.3 mg/dL (0.00-0.90) H Pro-B-Type Natriuretic Peptide > 06952 pg/mL (0-125) H Total Protein 6.8 G/DL (6.4-8.2) Albumin 2.4 G/DL (3.4-5.0) L Globulin 4.4 g/dL Albumin/Globulin Ratio 0.5 (1.0-2.7) L Plan Problems: (1) Lower extremity cellulitis Assessment & Plan: lower extremity cellulitis improved right foot great toe looks to have progressed cont with dressings, therahoney and gauze or foam dressing Bones are osteopenic. There is an old fracture of the fifth metatarsal. No acute fracture identified. Vascular calcification noted. Plantar calcaneal spur noted. Antiplatelet & statin Social work psych eval and assign POA Will need staged bilateral leg angiogram & percutaneous revascularizations prior to toe gangrene amputation thank you (2) Cellulitis of arm, right Assessment & Plan: 57-year-old female with multiple medical comorbidities presenting from a half-way On admission patient identified to have multiple wounds Etiology of wounds potentially from trauma Patient a poor historian Patient noted to have multiple scabs on her upper and lower extremities Patient does have some distal ischemia in the toes No acute surgical intervention distribution of wounds do not seem to be rash or skin disorder. mainly trauma related will hold on skin biopsy for now will need to reinforce to patient not to pick at wounds, remove scabs, or deep scratching. appreciate psych input apply bacitracin ointment to scabs and scars on upper and lower extremity okay to wrap bilateral upper extremities with kerlix wrap to prevent patient from picking scabs and see if able to heal old traumatic wounds patient has multiple upper extremity wounds as noted prior she continues to scratch wounds and was doing so upon admission opens healing wounds and causes callus to form (3) Non-compliance with renal dialysis (4) Altered level of consciousness Vic Wise Sep 11, 2018 16:13
--- NOTE | 2018-09-11 18:30 | NUR ---
NURSE NOTES: Patient more alert today,cooperative but at time compulsive.patient received Dialysis today,per dialysis Nurse 2 L off from dialysis.Bed alarm on,call light within reach.
--- NOTE | 2018-09-11 19:20 | NUR ---
HAND-OFF: Report given to monique MO.
--- NOTE | 2018-09-11 19:54 | NUR ---
NURSE NOTES: Patient in bed, awake, alert x 2. Kept clean and comfortable. Bed in low and locked position. Provided safe environment. No s/s of pain or discomfort noted. Skin is warm and dry to touch, noted with dressing in lower extremities. Bed rails padded. Respiration is even and unlabored. Call light is at bedside. Will continue plan of care.
--- NOTE | 2018-09-11 22:10 | NUR ---
NURSE NOTES: Restraints off, patient is awake, follows command. Kept clean and comfortable. Will reassess.
--- NOTE | 2018-09-11 23:10 | NUR ---
NURSE NOTES: Patient noted with multiple scabs upper extremities and lower extremities. Open to air per patient request. Patient in bed, Awake, able to make simple needs known.
[2018-09-12] VITALS (7 sets, daily range): BP systolic 121–156; BP diastolic 62–76
--- NOTE | 2018-09-12 01:00 | NUR ---
NURSE NOTES: Patient is awake, follows simple commands, will reassess
[2018-09-12] MEDS: HydrALAZINE 50mg tab ORAL SCH ×3 (05:49→22:57)
--- NOTE | 2018-09-12 07:06 | NUR ---
HAND-OFF: Report given to CHEPE Pino.
--- NOTE | 2018-09-12 07:15 | NUR ---
NURSE NOTES: Received patient in bed resting, denies any pain, AAO x [address] Patient is on room air. IV on left wrist is patent and intact. LUISANA AV shunt for dialysis noted. Noted patient has both upper and lower extremities scabs. No acute distress noted at this time. Bed is on lowest position, bedside rails up x 2, brakes engaged for safety. call light within reach. Will continue with the plan of care.
[2018-09-12] MEDS: Calcium Acetate 667mg Tab ORAL SCH ×3 (08:28→17:09)
[2018-09-12] MEDS: Carvedilol 12.5mg tab ORAL SCH ×2 (08:31→20:55)
[2018-09-12] MEDS: Nephrovite tab (Rena-Vite) ORAL SCH (08:32)
[2018-09-12] MEDS: Bacitracin Oint UD TOPIC SCH (08:33)
[2018-09-12] MEDS: Docusate 100mg cap ORAL SCH ×3 (08:33→17:09)
[2018-09-12] MEDS: Heparin 5000 units/ml inj SUBQ SCH ×2 (08:35→20:57)
--- NOTE | 2018-09-12 09:17 | Nephrology Progress Note ---
Assessment/Plan Problem List: (1) ESRD (end stage renal disease) on dialysis Assessment: presented with hyperkalemia (2) Altered level of consciousness (3) Schizoaffective disorder, bipolar type (4) Hypothyroidism (5) Anemia in chronic renal disease (6) Clotted renal dialysis arteriovenous graft Assessment Back again for missing HD ( refusing dialysis) hence becoming altered- Has high serum K examined essentially no change in exam Assessment/Plan Presents with Encephalopathy due to missing dialysis 1) ESRD (end stage renal disease) on dialysis (2) Anemia in chronic renal disease (3) Schizoaffective disorder, bipolar type (4) Diabetes mellitus, type II (5) Hypothyroidism - Cellulitis both LE - Metabolic Encephalopathy - End-stage renal disease, on hemodialysis. fistula right arm - Anemia of chronic kidney disease. - HTN / Pulmonary HTN - Diabetes type 2. -HypoThyroidism Others - Morbid obesity. - H/O Colon Cancer - H/O Hep C - H/O Depression and Bipolar disease - Psych disease uncoaporative --Bilateral leg numbness --diabetic neuropathy --L5-S1 disc protrusion Plan HD done once HD next 09/13 refusing care and tests periodically skin care / Antibiotics per consultants anti Sz med to po in med surg Subjective ROS Limited/Unobtainable: No Constitutional: Reports: malaise Objective Objective Last 24 Hour Vital Signs Date Time Temp Pulse Resp B/P (MAP) Pulse Ox O2 Delivery O2 Flow Rate FiO2 09/12/18 08:33 64 121/62 09/12/18 08:31 64 121/62 09/12/18 08:11 65 16 95 Room Air 21 09/12/18 06:10 153/68 (96) 09/12/18 05:49 160/67 09/12/18 04:00 98.2 65 16 156/63 (94) 94 09/12/18 00:00 98.6 80 20 150/76 (100) 95 09/11/18 21:21 127/70 09/11/18 21:20 66 127/70 09/11/18 21:00 Room Air 09/11/18 20:26 75 18 97 Room Air 21 09/11/18 20:00 98.9 77 16 127/70 (89) 96 09/11/18 16:00 98.6 72 18 146/70 (95) 98 09/11/18 12:00 98.8 69 20 168/74 (105) 95 09/11/18 10:32 Room Air 09/11/18 09:43 72 18 96 Room Air 21 Intake and Output 09/11/18 09/12/18 19:00 07:00 Intake Total 240 ml 600 ml Balance 240 ml 600 ml Intake Oral 240 ml 600 ml Height (Feet): 5 Height (Inches): 8.00 Weight (Pounds): 196 General Appearance: no apparent distress Objective no change Eamon Solis MD Sep 12, 2018 09:17
--- NOTE | 2018-09-12 11:03 | NUR ---
Social Service Note SW spoke with Savannah at the [facility] office. Case will be assigned to an soft work cigar machine operator next week. The process of the investigation can take several weeks to complete. Patient doesn't have a diagnosis of dementia or alzheimer's which is an indication for possible probate conservatorship. However since patient had acute encephalopathy they are willing to complete an investigation. Also they indicated that they cannot physically force a person who is alert to accept invasive care. However this will also be investigated. Follow up call placed to Cindy Peguero [phone] VM left, awaiting return call. Mir Zuluaga [phone] number is a fax machine and [facility] doesn't have an alternative number. Will continue to follow up.
--- NOTE | 2018-09-12 12:50 | Surgery Progress Note ---
Surgery Progress Note Subjective Symptoms: improved Objective Last 24 Hour Vital Signs Date Time Temp Pulse Resp B/P (MAP) Pulse Ox O2 Delivery O2 Flow Rate FiO2 09/12/18 12:00 97.9 64 18 138/65 (89) 97 09/12/18 09:00 Room Air 09/12/18 08:33 64 121/62 09/12/18 08:31 64 121/62 09/12/18 08:11 65 16 95 Room Air 21 09/12/18 08:00 97.7 62 18 121/62 (81) 98 09/12/18 06:10 153/68 (96) 09/12/18 05:49 160/67 09/12/18 04:00 98.2 65 16 156/63 (94) 94 09/12/18 00:00 98.6 80 20 150/76 (100) 95 09/11/18 21:21 127/70 09/11/18 21:20 66 127/70 09/11/18 21:00 Room Air 09/11/18 20:26 75 18 97 Room Air 21 09/11/18 20:00 98.9 77 16 127/70 (89) 96 09/11/18 16:00 98.6 72 18 146/70 (95) 98 I&O Intake and Output 09/11/18 09/12/18 19:00 07:00 Intake Total 240 ml 600 ml Balance 240 ml 600 ml Intake Oral 240 ml 600 ml Dressing: dry Wound: clean Cardiovascular: RSR Respiratory: clear Abdomen: soft, present bowel sounds, non-distended Extremities: other - stable Plan Problems: (1) Lower extremity cellulitis Assessment & Plan: lower extremity cellulitis improved right foot great toe looks to have progressed cont with dressings, therahoney and gauze or foam dressing Bones are osteopenic. There is an old fracture of the fifth metatarsal. No acute fracture identified. Vascular calcification noted. Plantar calcaneal spur noted. Antiplatelet & statin Social work psych eval and assign POA Will need staged bilateral leg angiogram & percutaneous revascularizations prior to toe gangrene amputation okay to d/c outpatient vascular f/u thank you (2) Cellulitis of arm, right Assessment & Plan: 57-year-old female with multiple medical comorbidities presenting from a halfway On admission patient identified to have multiple wounds Etiology of wounds potentially from trauma Patient a poor historian Patient noted to have multiple scabs on her upper and lower extremities Patient does have some distal ischemia in the toes No acute surgical intervention distribution of wounds do not seem to be rash or skin disorder. mainly trauma related will hold on skin biopsy for now will need to reinforce to patient not to pick at wounds, remove scabs, or deep scratching. appreciate psych input apply bacitracin ointment to scabs and scars on upper and lower extremity okay to wrap bilateral upper extremities with kerlix wrap to prevent patient from picking scabs and see if able to heal old traumatic wounds patient has multiple upper extremity wounds as noted prior she continues to scratch wounds and was doing so upon admission opens healing wounds and causes callus to form (3) Non-compliance with renal dialysis (4) Altered level of consciousness Vic Wise Sep 12, 2018 12:50
[2018-09-12] MEDS ORDERED: COREG12.5 MG ORAL (13:26)
[2018-09-12] MEDS ORDERED: HYDRALAZINE HCL25 M1 ORAL (13:26)
[2018-09-12] MEDS ORDERED: SEROQUEL25 MG ORAL (13:26)
[2018-09-12] MEDS ORDERED: CATAPRES-TTS 31 EACH TDERMAL (13:26)
[2018-09-12] MEDS ORDERED: APRESOLINE50 MG ORAL (13:26)
--- NOTE | 2018-09-12 13:27 | Discharge Instructions ---
Discharge Instructions Discharge Instructions Follow up with: pcp Call MD/Return to Hospital if: intractable pain, fevers, intractable vomiting Services at Discharge: physical therapy, occupational therapy Diet: renal diabetic Resume Normal Activity?: Yes Activity: resume normal activities For Congestive Heart Failure Reminder Report to your physician any weight gain of 5 pounds or more in one week. Lupe Escalona MD Sep 12, 2018 13:27
--- NOTE | 2018-09-12 13:28 | Discharge Summary ---
Discharge Summary Hospital Course Date of Admission Sep 05, 2018 at 19:36 Date of Discharge Admitting Diagnosis ALTERED MENTAL STATUS, MISSED DIALYSIS HPI Cris Zuluaga is a 57 year old female who was admitted on Sep 05, 2018 at 19:36 for Altered Mental Status,Missed Dialysis Hospital Course 57 y M with ESRD on HD who is admitted due to AMS and missing 2 dialysis sessions. # ESRD - Dr. Solis consult appreciated, -HD per renal - Resume renal medications, binders, supplements # HTN - Resume medication and IV PRN as needed > 160 mmHg # B/L toe gangrene - appreciate vascular surgery evaluation and recs - Will need staged bilateral leg angiogram & percutaneous revascularizations prior to toe gangrene amputation # Anemia of chronic disease / renal disease - Monitor H/H ( Hb 7.6 ) - Consider JAMEE if indicated # Schizoaffective disorder/bipolar - Resume home medication - Dr. Beckett evaluated the patient and probate conservatorship recommended as patient continues to refuse HD and requiring re-hospitalizations. - SW and CM orders placed. 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 # Moderate protein caloric malnutrition - Albumin 2.6 - Dietary and nutritional support # FULL CODE # DVT - GI ppx # Disposition - came from snf however patient continues to be re-admitted because she refuses HD. pt has no capacity therefore, will likely undergo conservatorship - referral sent to LTAC where patient would have HD continued Discharge Discharge Disposition Patient was discharged to Discharge Instructions Discharge Instructions Follow up with: pcp Call MD/Return to Hospital if: intractable pain, fevers, intractable vomiting Services Upon Discharge: physical therapy, occupational therapy Activity: resume normal activities Lupe Escalona MD Sep 12, 2018 13:28
--- NOTE | 2018-09-12 14:50 | NUR ---
SPEECH PATHOLOGY: S: PATIENT CLEARED FOR ST INTERVENTION BY CHEPE PEÑA PATIENT SEEN IN CONTEXT OF NOON MEAL. SHE WAS ALERT, POSITIONED FOR P.O. SITTING UPRIGHT IN BED O; DYSPHAGIA MANAGEMENT A: CLINICIAN REVIEWED MEALTIME PROTOCOL (POSTED AT BEDSIDE) WITH PATIENT. PATIENT WAS ESSENTIALLY NONVERBAL AND UNABLE TO STATE NEED FOR MODIFIED TEXTURE DIET AND ASPIRATION PRECAUTIONS. PATIENT CONTINUES TO NEED FULL ASSIST WITH MEALS,UNABLE TO INDEPENDENTLY SELF/FEED MEALTIME TRAY COMPLIANT WITH RECOMMENDED SOLIDS/LIQUIDS (MECH SOFT FINELY CHOPPED/NECTAR THICK LIQUIDS) REVIEWED NEED FOR FULL ASSIST WITH MEALS WITH CHEPE PEÑA P: CONTINUE PER POC.
--- NOTE | 2018-09-12 15:09 | NUR ---
Social Service Note SW received a return call from patient's Aunt Cindy Peguero [phone]. Patient's parents 20 years ago. Patient's brother Mir lives in [place] as well as Aunt and brother is mentally incapable in providing assistance towards patient. Aunt states patient has been referred 3 other time to public guardian/conservatorship and each case was closed. Aunt states patient has been defiant all her life. 5 years ago patient's boyfriend at [facility] due to non-compliancy of dialysis. Aunt is not surprised of patient's non-compliant behavior regarding dialysis. Patient has been receiving dialysis for 2 years and she has a pattern of stopping treatment in the middle of a session and going to dialysis unit then walking away. Aunt states patient has been in 8 different SNF's. Aunt is available by phone and will provide assistance from a distance. Will continue to monitor.
--- NOTE | 2018-09-12 15:34 | NUR ---
DISCHARGE PLANNING PATIENT IS ACCEPTED BACK AT [facility] ROOM 314C SKILLED, ROOM WILL BE AVAILABLE TOMORROW PER KONRAD IN THE ADMISSIONS OFFICE.
--- NOTE | 2018-09-12 15:56 | NUR ---
GARNETT MECHANICIMPROVEMENT ANALYST SI:ESRD . ANEMIA VS: BP 153/68, P 62, T 97.7, RR 20, SpO2 94 RBC 2.74, H&H 8.4/25.7, Na 133, BUN 41, CR 7.7 IS:APRESOLINE 75mg PHOSLO 1334mg SEROQUEL 25mg NORVASC 10mg KEPPRA 1000mg COREG 12.5mg MED/SURG STATUS
--- NOTE | 2018-09-12 15:59 | NUR ---
NURSE NOTES: Called [facility] to schedule dialysis for tomorrow per Dr. Solis's order.
--- NOTE | 2018-09-12 19:27 | NUR ---
HAND-OFF: Report given to Ms. Gonzalez. Patient is in stable condition.
--- NOTE | 2018-09-12 19:30 | NUR ---
NURSE NOTES: RECEIVED PATIENT LYING IN BED, APPEAR TO BE ASLEEP, AWAKENED TO NAME, DENIES PAIN. SEIZURE PRECAUTIONS OBSERVED/SIDE RAILS PADDED. AV SHUNT RIGHT UPPER ARM/ BRUIT AUDIBLE/THRILL PALPABLE. NO SIGNS AND SYMPTOMS OF ACUTE CARDIO RESPIRATORY DISTRESS/SHORTNESS OF BREATH, DENIES CHEST PAIN. ABDOMEN SOFT/NON TENDER/BOWEL SOUNDS AUDIBLE IN ALL QUADRANTS, NO REPORT OF N/V. SIDE RAILS UP X3/BED IN LOWEST POSITION FOR SAFETY. CALL LIGHT WITHIN REACH. CONTINUE WITH CURRENT PLAN OF CARE. NAD.
--- NOTE | 2018-09-12 22:30 | Progress Note ---
DATE: 09/12/2018 SUBJECTIVE: The patient is in bed, has waxing and waning consciousness. The patient received dialysis, history of noncompliance. The patient has no capacity as her mental condition and compliance . The patient is able to answer basic questions. She knows her name, otherwise she is not able to answer any other questions. MENTAL STATUS EXAMINATION: Alert and oriented times self. Mood is neutral to anxious. Affect is flat. Thought process, there is a paucity of thought content. Thought content, no suicidal or homicidal ideation. ASSESSMENT: 1. Acute encephalopathy. 2. Schizoaffective disorder. PLAN: 1. We will continue current medication. 2. Provide the patient with reality orientation and supportive therapy. Blanka Beckett M.D. DR: Shraddha JOB#: [id number] CC:
[2018-09-13] VITALS (7 sets, daily range): BP systolic 134–175; BP diastolic 57–71
[2018-09-13] MEDS: HydrALAZINE 50mg tab ORAL SCH ×2 (06:05→13:11)
--- NOTE | 2018-09-13 06:07 | NUR ---
NURSE NOTES: RESTED WELL, NO SIGNIFICANT CHANGE OF CONDITION NOTED THROUGHOUT THE NIGHT. SAFETY MAINTAINED. NAD.
--- NOTE | 2018-09-13 07:30 | NUR ---
HAND-OFF: Report given to CHEPE WADDELL.
--- NOTE | 2018-09-13 07:51 | NUR ---
NURSE NOTES: Received report from JACKSON Pavon. Pt in bed, asleep, respirations unlabored, no apparent distress noted, bed in lowest position, bed alarm on, call light within reach.
[2018-09-13] MEDS: Heparin 5000 units/ml inj SUBQ SCH (09:00)
[2018-09-13] MEDS ORDERED: Bacitracin Oint 15gm Tube TOPIC SCH ×2 (09:00→10:15)
[2018-09-13] MEDS: Carvedilol 12.5mg tab ORAL SCH (09:00)
[2018-09-13] MEDS: Bacitracin Oint UD TOPIC SCH (09:00)
[2018-09-13] MEDS: Docusate 100mg cap ORAL SCH ×3 (09:31→17:38)
[2018-09-13] MEDS: Calcium Acetate 667mg Tab ORAL SCH ×3 (09:31→17:37)
[2018-09-13] MEDS: Nephrovite tab (Rena-Vite) ORAL SCH (09:32)
--- NOTE | 2018-09-13 09:38 | NUR ---
DISCHARGE PLANNING Discharge order noted Patient has been referred back to; [facility] [phone] Await Acceptance and Room Number
--- NOTE | 2018-09-13 12:25 | Nephrology Progress Note ---
Assessment/Plan Problem List: (1) ESRD (end stage renal disease) on dialysis Assessment: presented with hyperkalemia (2) Altered level of consciousness (3) Schizoaffective disorder, bipolar type (4) Hypothyroidism (5) Anemia in chronic renal disease (6) Clotted renal dialysis arteriovenous graft Assessment Back again for missing HD ( refusing dialysis) hence becoming altered- Has high serum K examined essentially no change in exam Assessment/Plan Presents with Encephalopathy due to missing dialysis 1) ESRD (end stage renal disease) on dialysis (2) Anemia in chronic renal disease (3) Schizoaffective disorder, bipolar type (4) Diabetes mellitus, type II (5) Hypothyroidism - Cellulitis both LE - Metabolic Encephalopathy - End-stage renal disease, on hemodialysis. fistula right arm - Anemia of chronic kidney disease. - HTN / Pulmonary HTN - Diabetes type 2. -HypoThyroidism Others - Morbid obesity. - H/O Colon Cancer - H/O Hep C - H/O Depression and Bipolar disease - Psych disease uncoaporative --Bilateral leg numbness --diabetic neuropathy --L5-S1 disc protrusion Plan HD next 09/14 refusing care and tests periodically skin care / Antibiotics per consultants anti Sz med to po in med surg ? Dc Subjective ROS Limited/Unobtainable: No Constitutional: Reports: malaise Objective Objective Last 24 Hour Vital Signs Date Time Temp Pulse Resp B/P (MAP) Pulse Ox O2 Delivery O2 Flow Rate FiO2 09/13/18 09:00 54 135/57 09/13/18 09:00 54 135/57 09/13/18 09:00 Room Air 09/13/18 08:00 98.4 54 18 135/57 (83) 96 09/13/18 06:05 157/63 09/13/18 04:00 97.8 52 18 149/62 (91) 100 09/13/18 00:00 97.7 54 18 158/60 (92) 96 09/12/18 22:57 157/69 09/12/18 21:00 Room Air 09/12/18 20:55 60 155/67 09/12/18 20:00 97.4 60 18 155/67 (96) 97 09/12/18 19:59 64 16 96 Room Air 21 09/12/18 16:00 98.1 60 18 130/65 (86) 96 7/25/19 13:38 138/60 Intake and Output 09/12/18 09/13/18 19:00 07:00 Intake Total 240 ml 300 ml Balance 240 ml 300 ml Intake Oral 240 ml 300 ml # Voids 1 1 Height (Feet): 5 Height (Inches): 8.00 Weight (Pounds): 189 General Appearance: no apparent distress Objective no change Eamon Solis MD Sep 13, 2018 12:25
--- NOTE | 2018-09-13 12:49 | Surgery Progress Note ---
Surgery Progress Note Subjective Additional Comments No acute events. Patient otherwise comfortable. Resting. Able to open her eyes. Does not participate in examination. Is doing well without restraints. Wounds have been healing since she has not been picking at her scabs. Objective Last 24 Hour Vital Signs Date Time Temp Pulse Resp B/P (MAP) Pulse Ox O2 Delivery O2 Flow Rate FiO2 09/13/18 09:00 54 135/57 09/13/18 09:00 54 135/57 09/13/18 09:00 Room Air 09/13/18 08:00 98.4 54 18 135/57 (83) 96 09/13/18 06:05 157/63 09/13/18 04:00 97.8 52 18 149/62 (91) 100 09/13/18 00:00 97.7 54 18 158/60 (92) 96 09/12/18 22:57 157/69 09/12/18 21:00 Room Air 09/12/18 20:55 60 155/67 09/12/18 20:00 97.4 60 18 155/67 (96) 97 09/12/18 19:59 64 16 96 Room Air 21 09/12/18 16:00 98.1 60 18 130/65 (86) 96 09/12/18 13:38 138/60 I&O Intake and Output 09/12/18 09/13/18 19:00 07:00 Intake Total 240 ml 300 ml Balance 240 ml 300 ml Intake Oral 240 ml 300 ml # Voids 1 1 Dressing: dry Wound: clean Cardiovascular: RSR Respiratory: clear Abdomen: soft, non-tender, present bowel sounds Extremities: other Plan Problems: (1) Lower extremity cellulitis Assessment & Plan: lower extremity cellulitis improved right foot great toe looks to have progressed cont with dressings, therahoney and gauze or foam dressing Bones are osteopenic. There is an old fracture of the fifth metatarsal. No acute fracture identified. Vascular calcification noted. Plantar calcaneal spur noted. Antiplatelet & statin Social work psych eval and assign POA Will need staged bilateral leg angiogram & percutaneous revascularizations prior to toe gangrene amputation okay to d/c outpatient vascular f/u thank you (2) Cellulitis of arm, right Assessment & Plan: 57-year-old female with multiple medical comorbidities presenting from a [facility] On admission patient identified to have multiple wounds Etiology of wounds potentially from trauma Patient a poor historian Patient noted to have multiple scabs on her upper and lower extremities Patient does have some distal ischemia in the toes No acute surgical intervention distribution of wounds do not seem to be rash or skin disorder. mainly trauma related will hold on skin biopsy for now will need to reinforce to patient not to pick at wounds, remove scabs, or deep scratching. appreciate psych input apply bacitracin ointment to scabs and scars on upper and lower extremity okay to wrap bilateral upper extremities with kerlix wrap to prevent patient from picking scabs and see if able to heal old traumatic wounds patient has multiple upper extremity wounds as noted prior she continues to scratch wounds and was doing so upon admission opens healing wounds and causes callus to form (3) Non-compliance with renal dialysis (4) Altered level of consciousness Vic Wise Sep 13, 2018 12:49
--- NOTE | 2018-09-13 14:07 | NUR ---
DISCHARGE PLANNING DISCHARGE ORDER NOTED Patient has been accepted back to; [facility] [address] [place] [address] Bed:314-B Skilled [phone] for Nurse to Nurse report [facility] ETA for transportation: 15:30
--- NOTE | 2018-09-13 14:50 | NUR ---
NURSE NOTES: Called Anderson Gary to give report, told to call back as all RN are in a meeting Addendum: 09/13/18 at 1528 by NADIRA TREJO RN NURSE NOTES: Called Anderson Gary again at 1518, waited on hold for 9 minutes. Called Anderson Gary again at 1527. Gave report to CHEPE Silva
--- NOTE | 2018-09-13 15:59 | NUR ---
NURSE NOTES: Photo of sacrum taken and uploaded to system
[2018-09-13] MEDS: HydrALAZINE 25mg tab ORAL PRN (16:27)
--- NOTE | 2018-09-13 17:35 | Podiatric Progress Note ---
Assessment/Plan Patient Cris Zuluaga is a 57 year old female who was admitted on Sep 05, 2018 at 19:36 with Problems: (1) Diabetes mellitus type 2 with neurological manifestations (2) Foot ulcer due to secondary DM (3) ESRD (end stage renal disease) on dialysis (4) GERD (gastroesophageal reflux disease) (5) Diabetes mellitus, type II (6) CHF (congestive heart failure) Assessment/Plan patient is awaiting discharge vascular clearance is pending for podiatry procedure. Continue local wound care. Subjective Allergies: Coded Allergies: No Known Allergies (Verified , 08/23/06) Subjective Patient seen by bedside in NAD f/u b/l toe gangrene. Objective Exam Last 24 Hour Vital Signs Date Time Temp Pulse Resp B/P (MAP) Pulse Ox O2 Delivery O2 Flow Rate FiO2 09/13/18 16:27 175/62 09/13/18 16:00 99.1 62 18 175/62 (99) 94 09/13/18 13:18 162/71 (101) 09/13/18 13:11 134/59 09/13/18 13:11 134/59 09/13/18 12:00 98.1 53 18 134/59 (84) 96 09/13/18 09:00 54 135/57 09/13/18 09:00 54 135/57 09/13/18 09:00 Room Air 09/13/18 08:00 98.4 54 18 135/57 (83) 96 09/13/18 06:05 157/63 09/13/18 04:00 97.8 52 18 149/62 (91) 100 09/13/18 00:00 97.7 54 18 158/60 (92) 96 09/12/18 22:57 157/69 09/12/18 21:00 Room Air 09/12/18 20:55 60 155/67 09/12/18 20:00 97.4 60 18 155/67 (96) 97 09/12/18 19:59 64 16 96 Room Air 21 Microbiology Date/Time Source Procedure Growth Status 09/05/18 18:45 Blood Blood Culture - Final NO GROWTH AFTER 5 DAYS Complete 09/05/18 22:30 Nasal Nares MRSA Culture - Final NO METHICILLIN RESISTANT STAPH AUREUS... Complete 09/05/18 22:30 Rectum - Final NO CARBAPENEM-RESISTANT ENTEROBACTERI... Complete Dermatological Dermatological Narrative b/l foot gangrene stable no changes since last visit. Alejo Stafford DPM Sep 13, 2018 17:35
--- NOTE | 2018-09-13 18:05 | NUR ---
NURSE NOTES: Pt discharged back to [facility] with all belongings. IV removed intact and ID band removed. Pt stable for discharge.
--- NOTE | 2018-09-13 18:16 | NUR ---
SPEECH PATHOLOGY" D/C SUMMARY: PER RN, PATIENT BEING DISCHARGED BACK TO SNF PT PARTIALLY MET GOALS PATIENT TOLERATED A MODIFIED TEXTURE DIET BUT CONTINUES TO PRESENT RISK FOR SUBOPTIMAL P.O. INTAKE SUFFICIENT TO SUPPORT NUTRITION/HYDRATION NEEDS D/C FROM SKILLED SERVICE
--- NOTE | 2018-09-14 00:15 | Progress Note ---
DATE: 09/13/2018 SUBJECTIVE: The patient is doing better today. Continues to be confused, less agitated. MENTAL STATUS EXAMINATION: Mood is neutral. Affect is flat. Thought process, there is a paucity of thought content. Thought content, no suicidal or homicidal ideations. Cognition is impaired. ASSESSMENT: Stable. PLAN: We will continue current medication. Provide the patient with reality orientation and supportive therapy. Blanka Beckett M.D. DR: TY JOB#: [id number] CC:
== END 2018-09-13 18:16 | DRG 682 ==
LOC: EDBD 18:00 → EDBEDREQ 18:36 → EMR 18:37 → 2W 19:36 → EDBEDREQ 22:07 → 4E 09-07 21:36
PROC: 5A1D70Z Performance of Urinary Filtration, Intermittent, Less than 6 Hours Per Day (ICD-10-PCS; principal; 2018-09-13)
DX: I12.0 Hypertensive chronic kidney disease with stage 5 chronic kidney disease or end stage renal disease (principal); G93.41 Metabolic encephalopathy; N18.6 End stage renal disease; E44.0 Moderate protein-calorie malnutrition; E11.52 Type 2 diabetes mellitus with diabetic peripheral angiopathy with gangrene; I96 Gangrene, not elsewhere classified; L03.116 Cellulitis of left lower limb; L03.115 Cellulitis of right lower limb; L03.113 Cellulitis of right upper limb; I50.32 Chronic diastolic (congestive) heart failure; I13.2 Hypertensive heart and chronic kidney disease with heart failure and with stage 5 chronic kidney disease, or end stage renal disease; Z91.15 Patient's noncompliance with renal dialysis; E87.5 Hyperkalemia; E03.9 Hypothyroidism, unspecified; E11.22 Type 2 diabetes mellitus with diabetic chronic kidney disease; Z99.2 Dependence on renal dialysis; F25.0 Schizoaffective disorder, bipolar type; D63.1 Anemia in chronic kidney disease; L73.8 Other specified follicular disorders; I27.20 Pulmonary hypertension, unspecified; E66.01 Morbid (severe) obesity due to excess calories; Z85.038 Personal history of other malignant neoplasm of large intestine; M51.27 Other intervertebral disc displacement, lumbosacral region; E11.40 Type 2 diabetes mellitus with diabetic neuropathy, unspecified; E11.621 Type 2 diabetes mellitus with foot ulcer; Z79.02 Long term (current) use of antithrombotics/antiplatelets; Z79.4 Long term (current) use of insulin
CPT/HCPCS: 36415; 71045; 80048; 80053; 80299; 81003; 82550; 82553; 82803; 82962; 82977; 83036; 83605; 83690; 83735; 83880; 84100; 84439; 84443; 84484; 84550; 85007; 85025; 85610; 85730; 86140; 86706; 87040; 87081; 93005; 93306; 94664; 99285

== ENCOUNTER 2018-10-29 14:29 | Inpatient (IN) | payer MEDICARE, MEDICAID ==
[~2018-10-29] VITALS: Ht 165.1 cm; Wt 86.7 kg
[~2018-10-29 14:29] MED LIST changes: +CARVEDILOL6.25 MG ORAL; +CATAPRES-TTS 31 EACH TDERMAL; +COREG12.5 MG ORAL; +LISINOPRIL10 MG ORAL; +MILK OF MA400 MG/51 ORAL; +MINOXIDIL2.5 MG PO; +SEROQUEL25 MG ORAL
[2018-10-29 14:40] VITALS: BP 115/58
--- NOTE | 2018-10-29 14:40 | NUR ---
ED Nurse Note: Pt w/ALC arrives via bls from [facility] with c/o lethargic pt is awake upon arrival. Pt is stable with no signs of acute distress.
[2018-10-29] MEDS ORDERED: Lidocaine 1% Plain 30 ml INJ ONE (15:00)
[2018-10-29] MEDS ORDERED: Heparin1,000 units/500ml Premix(Conc:2 units/ml) IV ONE (15:00)
[2018-10-29] MEDS ORDERED: Heparin1,000 units/500ml Premix(Conc:2 units/ml) IV PRN (15:00)
[2018-10-29 16:29] LABS: HEMATOCRIT 24.5 % (37.0-47.0); HEMOGLOBIN 8.4 G/DL (12.0-16.0); LYMPHOCYTES % (AUTO) 10.7 % (20.0-45.0); MEAN CORPUSCULAR VOLUME 90 FL (80-99); MONOCYTES % (AUTO) 9.1 % (1.0-10.0); NEUTROPHILS % (AUTO) 79.1 % (45.0-75.0); PLATELET COUNT 248 K/UL (150-450); RED CELL DISTRIBUTION WIDTH 14.6 % (11.6-14.8); WHITE BLOOD COUNT 8.7 K/UL (4.8-10.8)
--- NOTE | 2018-10-29 16:31 | Diagnostic Imaging Report ---
Indication: Shortness of breath Technique: One view of the chest Comparison: 09/05/2018 Findings: The heart is enlarged. Previously demonstrated interstitial congestive changes are no longer evident. Left pleural spaces are clear. Impression: Cardiomegaly. No acute process
[2018-10-29 16:39] LABS: ANION GAP 15 mmol/L (5-15); BLOOD UREA NITROGEN 71 mg/dL (7-18); CALCIUM 8.7 MG/DL (8.5-10.1); CARBON DIOXIDE 25 MMOL/L (21-32); CHLORIDE 99 MMOL/L (98-107); CREATININE 9.1 MG/DL (0.55-1.30); POTASSIUM 5.1 MMOL/L (3.5-5.1); SODIUM 139 MMOL/L (136-145)
[2018-10-29 16:54] LABS: ALBUMIN 2.8 G/DL (3.4-5.0); ALBUMIN/GLOBULIN RATIO 0.8 (1.0-2.7); ALKALINE PHOSPHATASE 132 U/L (46-116); ASPARTATE AMINO TRANSFERASE 14 U/L (15-37); BILIRUBIN,TOTAL 0.5 MG/DL (0.2-1.0); CKMB 8.4 NG/ML (0.0-3.6); CREATINE KINASE 70 U/L (26-308)
--- NOTE | 2018-10-29 17:14 | Emergency Room Report ---
History of Present Illness General Chief Complaint: Altered Level of Consciousness Source: Patient, Medical Record, EMS Present Illness HPI 57-year-old female presents ED for evaluation. Brought in by EMS from [facility] facility. Altered mental status x1 day. History of end-stage renal disease on dialysis. Missed last dialysis session. On arrival patient appears lethargic. Not answering questions purposefully. Has been seen here previously for similar presentation. No reported fevers or chills. No other aggravating relieving factors. No other associated symptoms Allergies: Coded Allergies: No Known Allergies (Verified , 08/23/06) Patient History Past Medical History: DM, HTN, COPD, seizures, renal disease, dialysis Past Surgical History: none Pertinent Family History: none Social History: Denies: smoking, alcohol use, drug use Last Menstrual Period: na Now: No Immunizations: UTD Reviewed Nursing Documentation: PMH: Agreed; PSxH: Agreed Nursing Documentation-PMH Past Medical History: No History, Except For Hx Cardiac Problems: Yes Hx Hypertension: Yes Hx COPD: Yes Hx Diabetes: Yes Hx Cancer: No Hx Gastrointestinal Problems: No Hx Dialysis: Yes - [id number] Hx Neurological Problems: Yes Hx Seizures: Yes Review of Systems All Other Systems: limited Physical Exam Vital Signs Date Time Temp Pulse Resp B/P (MAP) Pulse Ox O2 Delivery O2 Flow Rate FiO2 10/29/18 14:30 95.9 47 22 112/57 (75) 99 2.0 Sp02 EP Interpretation: reviewed, normal General Appearance: no apparent distress, lethargic Head: normocephalic Eyes: bilateral eye normal inspection, bilateral eye PERRL ENT: normal ENT inspection Neck: normal inspection Respiratory: chest non-tender, lungs clear, normal breath sounds, speaking full sentences Cardiovascular #1: regular rate, rhythm, no edema Gastrointestinal: normal bowel sounds, non tender, soft, non-distended, no guarding, no rebound Rectal: deferred Genitourinary: no CVA tenderness Musculoskeletal: normal inspection Neurologic: other - lethargic Psychiatric: other - lethargic Skin: other - multilple healing scabs to bilateral arms Lymphatic: normal inspection Medical Decision Making Diagnostic Impression: Primary Impression: Acute metabolic encephalopathy Additional Impression: ESRD (end stage renal disease) on dialysis ER Course Hospital Course 57 yo F presents with lethargy. missed dialysis Differential diagnoses include: DC/unstable angina, fluid overload, CHF exacerabation, hyperkalemia, uremia Clinical course Patient placed on stretcher. on monitoring and evaluation advisor. After initial history and physical I ordered labs, EKG, chest x-ray Patient is known to be difficult IV access. Midline placed by radiology. labs reviewed- BUN/Cr elevated. K 5.1. no leukocytosis, hemoglobin/hematocrit 71/9.1. BNP elevated. trop negative EKG - sinus bradycardia no acute ischemic changes interpreted by me Chest x-ray- cardiomegaly I reviewed EMR; Patient has been here previously for similar presentation of encephalopathy. Case discussed with Dr. Esparza and he agreed to accept the patient to his service for further care and support I. I feel this is a highly complex case requiring extensive working including EKG/Rhythm strip, Xray/CT/US, Blood/urine lab work, repeat exams while in ED, and administration of strong opiates/narcotics for pain control, admission to hospital or close patient follow up. Diagnosis - acute metabolic encephalopathy, ERSD on dialysis admitted to floor in serious condition Labs Test 10/29/18 15:50 White Blood Count 8.7 K/UL (4.8-10.8) Red Blood Count 2.70 M/UL (4.20-5.40) Hemoglobin 8.4 G/DL (12.0-16.0) Hematocrit 24.5 % (37.0-47.0) Mean Corpuscular Volume 90 FL (80-99) Mean Corpuscular Hemoglobin 31.1 PG (27.0-31.0) Mean Corpuscular Hemoglobin Concent 34.4 G/DL (32.0-36.0) Red Cell Distribution Width 14.6 % (11.6-14.8) Platelet Count 248 K/UL (150-450) Mean Platelet Volume 5.6 FL (6.5-10.1) Neutrophils (%) (Auto) 79.1 % (45.0-75.0) Lymphocytes (%) (Auto) 10.7 % (20.0-45.0) Monocytes (%) (Auto) 9.1 % (1.0-10.0) Eosinophils (%) (Auto) 0.0 % (0.0-3.0) Basophils (%) (Auto) 1.0 % (0.0-2.0) Sodium Level 139 MMOL/L (136-145) Potassium Level 5.1 MMOL/L (3.5-5.1) Chloride Level 99 MMOL/L (98-107) Carbon Dioxide Level 25 MMOL/L (21-32) Anion Gap 15 mmol/L (5-15) Blood Urea Nitrogen 71 mg/dL (7-18) Creatinine 9.1 MG/DL (0.55-1.30) Estimat Glomerular Filtration Rate 4.5 mL/min (>60) Glucose Level 89 MG/DL (74-106) Lactic Acid Level 0.60 mmol/L (0.4-2.0) Calcium Level 8.7 MG/DL (8.5-10.1) Total Bilirubin 0.5 MG/DL (0.2-1.0) Aspartate Amino Transf (AST/SGOT) 14 U/L (15-37) Alanine Aminotransferase (ALT/SGPT) 16 U/L (12-78) Alkaline Phosphatase 132 U/L (46-116) Total Creatine Kinase 70 U/L (26-308) Creatine Kinase MB 8.4 NG/ML (0.0-3.6) Creatine Kinase MB Relative Index 12.0 Troponin I 0.008 ng/mL (0.000-0.056) Pro-B-Type Natriuretic Peptide > 08336 pg/mL (0-125) Total Protein 6.2 G/DL (6.4-8.2) Albumin 2.8 G/DL (3.4-5.0) Globulin 3.4 g/dL Albumin/Globulin Ratio 0.8 (1.0-2.7) EKG Diagnostic Results Rate: bradycardiac Rhythm: NSR ST Segments: no acute changes ASA given to the pt in ED: No Rhythm Strip Diag. Results EP Interpretation: yes Rhythm: NSR, no PVC's, no ectopy Chest X-Ray Diagnostic Results Chest X-Ray Diagnostic Results : Chest X-Ray Ordered: Yes # of Views/Limited/Complete: 1 View Indication: Other EP Interpretation: Yes Interpretation: no consolidation, no effusion, no pneumothorax, no acute cardiopulmonary disease, other - cardiomegaly Impression: Other - cardiomegaly Electronically Signed by: Electronically signed by Josh Diaz MD Last Vital Signs Date Time Temp Pulse Resp B/P (MAP) Pulse Ox O2 Delivery O2 Flow Rate FiO2 10/29/18 14:30 95.9 47 22 112/57 (78) 99 2.0 Status: improved Disposition: ADMITTED INPATIENT Condition: Serious Referrals: Leonardo Rudolph MD (PCP) Josh Diaz MD Oct 29, 2018 17:14
[2018-10-29 17:19] LABS: ALANINE AMINOTRANSFERASE 16 U/L (12-78)
[2018-10-29] MEDS ORDERED: HYDROmorphone 1mg/ml Carpuject IVP PRN (17:45)
[2018-10-29] MEDS ORDERED: Milk of Magnesia 30ml Ud ORAL PRN (17:45)
[2018-10-29] MEDS ORDERED: Zolpidem 5mg tab ORAL PRN (17:45)
[2018-10-29] MEDS ORDERED: LORazepam Inj 2mg/ml 1ml IV PRN (17:45)
[2018-10-29] MEDS ORDERED: Miralax 17gm pkt ORAL PRN (17:45)
[2018-10-29] MEDS ORDERED: Nitroglycerin Subl 0.4mg tab SL PRN (17:45)
[2018-10-29] MEDS ORDERED: Albuterol/Ipratropium 3ml neb HHN PRN (17:45)
[2018-10-29] MEDS ORDERED: HydrALAZINE 25mg tab ORAL PRN (18:00)
[2018-10-29 18:15] VITALS: BP 144/57
--- NOTE | 2018-10-29 18:15 | NUR ---
ED Nurse Note: Pt in bed awake and alert, constantly moaning and groaning in pain, pt has multiple scabbedlesions generalized andon both feet, right great toe has severepressure ulcer, photos taken abnd wet to dry dressing applied, pt placed on cardiacmonitoring,v/s taken and pt given dinner meal tray, will continue to closely monitorand assist primary.
[2018-10-29 20:00] VITALS: BP 154/70
[2018-10-29] MEDS: Dyna-Hex 2% Top Sol 2oz TOPIC SCH (20:00)
--- NOTE | 2018-10-29 20:52 | NUR ---
NURSE NOTES: Spoke with Dr. Escalona to clarify the admission orders placed by Dr. Ramirez. Some adjustments made. Order given: amlodipine 10mg changed to q daily from BID, Hold clonidine patch and endorse it to the AM RN to clarify, Hydralazine 25 mg PRN q 4hrs for SBP greater than 160, and place bilateral wrist soft restraint to protect patient from falling off the bed and pulling off the medical devices. Continue to monitor patient and provide care as ordered and report any condition of change.Will carry out the order as given. Addendum: 10/29/18 at 2334 by Nuris Neal RN Dr. Escalona made aware of patient's temperature reading of 96.3 and HR of 55 during this conversation. No new orders given to follow up.
[2018-10-29] MEDS: Heparin 5000 units/ml inj SUBQ SCH (21:00)
[2018-10-29] MEDS ORDERED: Atorvastatin 20mg tab ORAL SCH (21:00)
[2018-10-29] MEDS ORDERED: Carvedilol 12.5mg tab ORAL SCH (21:00)
[2018-10-29] MEDS: NovoLOG Insulin Flexpen SUBQ SCH (21:33)
--- NOTE | 2018-10-29 22:17 | NUR ---
NURSE NOTES: Awaited on giving Carvedilol as scheduled to clarified parameters for carvedilol with Dr. Escalona. Reached Dr. Escalona and was told to hold the Carvedilol if HR is below 60. Patient's HR reading 55 with BP reading of 154/70. Dr. Escalona aware of BP and confirmed to hold carvedilol due to low HR. Will carry out the order as given.
[2018-10-30] VITALS: BP 167/77
--- NOTE | 2018-10-30 02:03 | NUR ---
NURSE NOTES: Was not able to indicate the location on the wound picture taken upon admission. Description of location as followed:1F Right Arm, 2F Right Hand, 3F Left ankle, 4F Left ankle, 5F-7F left foot, 8F-11F right foot, 12F left foot, 13F sacral.
--- NOTE | 2018-10-30 03:43 | NUR ---
NURSE NOTES: Called Anne from [facility] dialysis to schedule routine dialysis. Confirmed the appointment scheduled for today as routine.
[2018-10-30 04:00] VITALS: BP 155/77
[2018-10-30] MEDS: NovoLOG Insulin Flexpen SUBQ SCH ×4 (06:16→21:00)
[2018-10-30] MEDS: Levemir Flexpen SUBQ SCH ×2 (06:19→17:22)
[2018-10-30 07:03] LABS: HEMATOCRIT 22.3 % (37.0-47.0); HEMOGLOBIN 7.5 G/DL (12.0-16.0); MEAN CORPUSCULAR VOLUME 96 FL (80-99); PLATELET COUNT 218 K/UL (150-450); RED BLOOD COUNT 2.32 M/UL (4.20-5.40); RED CELL DISTRIBUTION WIDTH 15.3 % (11.6-14.8); WHITE BLOOD COUNT 7.9 K/UL (4.8-10.8)
[2018-10-30 07:22] LABS: ANION GAP 17 mmol/L (5-15); BLOOD UREA NITROGEN 71 mg/dL (7-18); CALCIUM 8.5 MG/DL (8.5-10.1); CARBON DIOXIDE 21 MMOL/L (21-32); CHLORIDE 101 MMOL/L (98-107); CREATININE 9.6 MG/DL (0.55-1.30); POTASSIUM 5.6 MMOL/L (3.5-5.1); SODIUM 139 MMOL/L (136-145)
[2018-10-30 08:00] VITALS: BP 176/66
--- NOTE | 2018-10-30 08:10 | History and Physical ---
History of Present Illness General Date patient seen: Oct 30, 2018 Reason for Hospitalization: Altered Level of Consciousness Present Illness HPI 57 year old female with many comorbidities including ESRD and schizophrenia, who is known to our facility for refusing medical treatment and HD frequently, now sent from [facility] for ALOC, she missed HD x1. She is a poor history due to AMA and history is obtained from extensive chart review and ER record. ER course: EKG, CXR, CMP and CBC. Admitted for HD. Past medical and surgical history: ESRD on HD, non compliance with medical treatment, metabolic encephalopathy, R great toe osteomyelitis, R 2nd proximal phalanx displaced fracture, R 5th metatarsal chronic fracture, HTN, CHF, PVD, Atrial flutter, Type II DM with nephropathy, Bipolar disorder, MDD, Schizophrenia, seizure disorder, obesity, anxiety disorder, Hypothyroidism Family history: Unable to obtain Social history: Lives at [facility], + smokes cigarettes Allergies: NKDA Medications: Reviewed and reconciled Allergies: Coded Allergies: No Known Allergies (Verified , 08/23/06) Medication History Scheduled Amlodipine Besylate* (Amlodipine Besylate*), 10 MG ORAL BID, (Reported) Atorvastatin Calcium* (Atorvastatin Calcium*), 40 MG ORAL BEDTIME, (Reported) Calcium Acetate (Calcium Acetate), 667 MG PO THREE TIMES A DAY, (Reported) Carvedilol (Coreg), 12.5 MG ORAL Q12HR Gekhcrggt-Lto-9* (Nrvycfvn-Yuc-7*), 1 PATCH TDERMAL QWEEK Clopidogrel Bisulfate* (Plavix*), 75 MG ORAL DAILY, (Reported) Fluticasone/Vilanterol (Breo Ellipta 100-25 Mcg INH), 1 PUFF IH BID, (Reported) Gabapentin (Neurontin), 300 MG ORAL BID, (Reported) Hydralazine HCl (Hydralazine HCl), 75 MG ORAL Q8HR Insulin Glargine (Lantus), 10 UNITS SUBQ BEDTIME, (Reported) Levetiracetam (Levetiracetam), 1,000 MG ORAL TWICE A DAY, (Reported) Levothyroxine Sodium (Synthroid), 50 MCG ORAL DAILY, (Reported) Lisinopril* (Lisinopril*), 20 MG ORAL DAILY, (Reported) Minoxidil* (Loniten*), 2.5 MG PO DAILY, (Reported) Polyethylene Glycol 3350* (Miralax*), 17 GM ORAL DAILY, (Reported) Quetiapine Fumarate* (Seroquel*), 25 MG ORAL TID Sitagliptin* (Januvia*), 25 MG ORAL DAILY, (Reported) Vitamin B Cmplx/Vit C/Folic AC (Nephro-Denise Tablet), 1 TAB ORAL DAILY, (Reported ) Scheduled PRN Acetaminophen* (Acetaminophen 325MG Tablet*), 650 MG ORAL QID PRN for Pain Scale (3-5), (Reported) Acetaminophen* (Acetaminophen 325MG Tablet*), 650 MG ORAL Q6H PRN for TEMPERATURE, (Reported) Bisacodyl (Dulcolax), 10 MG RC DAILY PRN for Constipation, (Reported) Hydralazine Hcl* (Hydralazine Hcl*), 25 MG ORAL Q4H PRN Ipratropium [place] 0.5MG/2.5ML (Ipratropium [place] 0.5MG/2.5ML), 0.5 MG HHN FOUR TIMES A DAY PRN for Shortness of Breath, (Reported) Lactulose (Lactulose), 10 GM PO DAILY PRN for Constipation, (Reported) Magnesium Hydroxide* (Milk Of Magnesia*), 30 ML ORAL DAILY PRN for Constipation, (Reported) Patient History Healthcare decision maker Resuscitation status Full Code Advanced Directive on File Review of Systems ROS Narrative unable to obtain due to patient's mental status Physical Exam Last 24 Hour Vital Signs Date Time Temp Pulse Resp B/P (MAP) Pulse Ox O2 Delivery O2 Flow Rate FiO2 10/30/18 04:00 98.3 61 19 155/77 (103) 96 10/30/18 01:20 Room Air 10/30/18 00:42 167/77 10/30/18 00:00 98.2 66 18 167/77 (107) 98 10/29/18 20:00 96.3 55 18 154/70 (98) 99 10/29/18 18:15 98.4 58 22 144/57 100 Room Air 2.0 10/29/18 14:40 47 22 Room Air 2.0 10/29/18 14:40 95.9 84 22 115/58 99 Room Air 2.0 10/29/18 14:30 95.9 47 22 112/57 (75) 99 2.0 Intake and Output 10/29/18 10/30/18 19:00 07:00 Intake Total 0 ml Balance 0 ml Intake Oral 0 ml # Voids 1 Laboratory Tests Test 10/29/18 15:50 10/30/18 06:08 White Blood Count 8.7 K/UL (4.8-10.8) 7.9 K/UL (4.8-10.8) Red Blood Count 2.70 M/UL (4.20-5.40) L 2.32 M/UL (4.20-5.40) L Hemoglobin 8.4 G/DL (12.0-16.0) L 7.5 G/DL (12.0-16.0) L Hematocrit 24.5 % (37.0-47.0) L 22.3 % (37.0-47.0) L Mean Corpuscular Volume 90 FL (80-99) 96 FL (80-99) Mean Corpuscular Hemoglobin 31.1 PG (27.0-31.0) H 32.3 PG (27.0-31.0) H Mean Corpuscular Hemoglobin Concent 34.4 G/DL (32.0-36.0) 33.7 G/DL (32.0-36.0) Red Cell Distribution Width 14.6 % (11.6-14.8) 15.3 % (11.6-14.8) H Platelet Count 248 K/UL (150-450) 218 K/UL (150-450) Mean Platelet Volume 5.6 FL (6.5-10.1) L 6.0 FL (6.5-10.1) L Neutrophils (%) (Auto) 79.1 % (45.0-75.0) H % (45.0-75.0) Lymphocytes (%) (Auto) 10.7 % (20.0-45.0) L % (20.0-45.0) Monocytes (%) (Auto) 9.1 % (1.0-10.0) % (1.0-10.0) Eosinophils (%) (Auto) 0.0 % (0.0-3.0) % (0.0-3.0) Basophils (%) (Auto) 1.0 % (0.0-2.0) % (0.0-2.0) Sodium Level 139 MMOL/L (136-145) 139 MMOL/L (136-145) Potassium Level 5.1 MMOL/L (3.5-5.1) 5.6 MMOL/L (3.5-5.1) H Chloride Level 99 MMOL/L (98-107) 101 MMOL/L (98-107) Carbon Dioxide Level 25 MMOL/L (21-32) 21 MMOL/L (21-32) Anion Gap 15 mmol/L (5-15) 17 mmol/L (5-15) H Blood Urea Nitrogen 71 mg/dL (7-18) H 71 mg/dL (7-18) H Creatinine 9.1 MG/DL (0.55-1.30) H 9.6 MG/DL (0.55-1.30) H Estimat Glomerular Filtration Rate 4.5 mL/min (>60) 4.2 mL/min (>60) Glucose Level 89 MG/DL (74-106) 71 MG/DL (74-106) L Lactic Acid Level 0.60 mmol/L (0.4-2.0) Calcium Level 8.7 MG/DL (8.5-10.1) 8.5 MG/DL (8.5-10.1) Total Bilirubin 0.5 MG/DL (0.2-1.0) Aspartate Amino Transf (AST/SGOT) 14 U/L (15-37) L Alanine Aminotransferase (ALT/SGPT) 16 U/L (12-78) Alkaline Phosphatase 132 U/L (46-116) H Total Creatine Kinase 70 U/L (26-308) Creatine Kinase MB 8.4 NG/ML (0.0-3.6) H Creatine Kinase MB Relative Index 12.0 Troponin I 0.008 ng/mL (0.000-0.056) Pro-B-Type Natriuretic Peptide > 82778 pg/mL (0-125) H Total Protein 6.2 G/DL (6.4-8.2) L Albumin 2.8 G/DL (3.4-5.0) L Globulin 3.4 g/dL Albumin/Globulin Ratio 0.8 (1.0-2.7) L Neutrophils % (Manual) Pending Lymphocytes % (Manual) Pending Platelet Estimate Pending Platelet Morphology Pending EKG: Sinus bradycardia, no peaked Ts, non specific ST-T changes. As personally reviewed by me CXR: cardiomegaly, no acute process Height (Feet): 5 Height (Inches): 5.00 Weight (Pounds): 191 Medications Current Medications Medications (Trade) Dose Ordered Sig/Gabriele Route PRN Reason Start Time Stop Time Status Last Admin Dose Admin Acetaminophen (Tylenol) 650 mg Q4H PRN ORAL Mild Pain (Pain Scale 1-3) 10/29/18 17:45 11/28/18 17:44 Acetaminophen (Tylenol) 650 mg Q4H PRN ORAL fever 10/29/18 17:45 11/28/18 17:44 Albuterol/ Ipratropium (Albuterol/ Ipratropium) 3 ml Q6H PRN HHN Shortness of Breath 10/29/18 17:45 11/03/18 17:44 Amlodipine Besylate (Norvasc) 10 mg DAILY ORAL 10/30/18 09:00 11/29/18 08:59 Atorvastatin Calcium (Lipitor) 40 mg BEDTIME ORAL 10/29/18 21:00 11/28/18 20:59 10/29/18 21:23 Bisacodyl (Dulcolax) 10 mg HSPRN PRN RECTAL Constipation 10/29/18 18:00 11/28/18 17:44 Calcium Acetate (Phoslo) 667 mg THREE TIMES A DAY ORAL 10/30/18 09:00 11/29/18 08:59 Carvedilol (Coreg) 12.5 mg Q12HR ORAL 10/30/18 09:00 11/28/18 20:59 Chlorhexidine Gluconate (Cassia-Hex 2%) 1 applic DAILY@2000 TOPIC 10/29/18 20:00 11/28/18 19:59 Clopidogrel Bisulfate (Plavix) 75 mg DAILY ORAL 10/30/18 09:00 11/29/18 08:59 Dextrose (Dextrose 50%) 25 ml Q30M PRN IV Hypoglycemia 10/29/18 17:45 11/28/18 17:44 Dextrose (Dextrose 50%) 50 ml Q30M PRN IV Hypoglycemia 10/29/18 17:45 11/28/18 17:44 Diphenhydramine HCl (Benadryl) 25 mg Q6H PRN ORAL Itching/Pruritis 10/29/18 17:45 11/28/18 17:44 Gabapentin (Neurontin) 300 mg Q12HR ORAL 10/29/18 21:00 11/28/18 20:59 10/29/18 21:24 Heparin Sodium (Porcine) (Heparin 5000 units/ml) 5,000 units EVERY 12 HOURS SUBQ 10/29/18 21:00 11/28/18 20:59 Heparin Sodium/ Sodium Chloride (Heparin 1000 units/500ml Premix) 1,000 unit ONCE PRN IV picc line placement 10/29/18 15:00 10/31/18 14:59 Hydralazine HCl (Apresoline) 25 mg Q4H PRN ORAL SBP greater than 160 10/29/18 18:00 11/28/18 17:59 10/30/18 00:42 Hydromorphone HCl (Dilaudid) 1 mg Q6H PRN IVP Moderate Pain (Pain Scale 4-6) 10/29/18 17:45 11/05/18 17:44 Hydromorphone HCl (Dilaudid) 2 mg Q6H PRN IVP Severe Pain (Pain Scale 7-10) 10/29/18 17:45 11/05/18 17:44 Insulin Aspart (NovoLOG) BEFORE MEALS AND HS SUBQ 10/29/18 21:00 11/28/18 20:59 10/29/18 21:33 Insulin Detemir (Levemir) 5 units NOVOLOGBS SUBQ 10/30/18 06:30 11/29/18 06:29 10/30/18 06:19 Levetiracetam (Keppra) 1,000 mg Q12HR ORAL 10/29/18 21:00 11/28/18 20:59 10/29/18 21:22 Levothyroxine Sodium (Synthroid) 50 mcg ACBREAKFAST ORAL 10/30/18 06:30 11/29/18 06:29 10/30/18 06:19 Lisinopril (Prinivil) 20 mg DAILY ORAL 10/30/18 09:00 11/29/18 08:59 Lorazepam (Ativan 2mg/ml 1ml) 0.5 mg Q4H PRN IV For Anxiety 10/29/18 17:45 11/05/18 17:44 Magnesium Hydroxide (Mom) 30 ml HSPRN PRN ORAL Constipation 10/29/18 17:45 11/28/18 17:44 Minoxidil (Loniten) 2.5 mg DAILY ORAL 10/30/18 09:00 11/29/18 08:59 Nitroglycerin (Ntg) 0.4 mg Q5M X 3 DOSES PRN SL Prn Chest Pain 10/29/18 17:45 11/28/18 17:44 Ondansetron HCl (Zofran) 4 mg Q6H PRN IVP Nausea & Vomiting 10/29/18 17:45 11/28/18 17:44 Pantoprazole (Protonix) 40 mg DAILY ORAL 10/30/18 09:00 11/29/18 08:59 Polyethylene Glycol (Miralax) 17 gm HSPRN PRN ORAL Constipation 10/29/18 17:45 11/28/18 17:44 Quetiapine Fumarate (SEROquel) 25 mg TID ORAL 10/29/18 20:00 11/28/18 19:59 10/29/18 21:23 Sitagliptin Phosphate (Januvia) 25 mg DAILY ORAL 10/30/18 09:00 11/29/18 08:59 Vitamin B Complex/ Vit C/Folic Acid (Nephrovite) 1 tab DAILY ORAL 10/30/18 09:00 11/29/18 08:59 Zolpidem Tartrate (Ambien) 5 mg HSPRN PRN ORAL Insomnia 10/29/18 17:45 11/05/18 17:44 Objective Narrative General Appearance: Obese, no apparent distress, confused. No distress. speaks full sentences, getting HD Head: normocephalic Eyes: bilateral eye normal inspection, bilateral eye PERRL ENT: normal ENT inspection Neck: normal inspection Respiratory: chest non-tender, lungs clear, normal breath sounds, speaking full sentences Cardiovascular : regular rate, rhythm, 2+ lower extremity edema bilaterally Gastrointestinal: normal bowel sounds, non tender, soft, non-distended, no guarding, no rebound Musculoskeletal: normal inspection, R arm HD access Neurologic: lethargic, grossly normal, moves all extremities Psychiatric: confused, depressed affect Skin: other - multiple healing scabs and bruises to bilateral arms Assessment/Plan Problem List: (1) Acute metabolic encephalopathy ICD Codes: G93.41 - Metabolic encephalopathy SNOMED: 12571874, 271662726 (2) Altered level of consciousness ICD Codes: R40.4 - Transient alteration of awareness SNOMED: 7017061 (3) MDD (major depressive disorder), recurrent episode, moderate ICD Codes: F33.1 - Major depressive disorder, recurrent, moderate SNOMED: 99730873, 503936113 (4) Schizoaffective disorder, bipolar type ICD Codes: F25.0 - Schizoaffective disorder, bipolar type SNOMED: 46049044 (5) Non-compliance with renal dialysis ICD Codes: Z91.15 - Patient's noncompliance with renal dialysis SNOMED: 446769048287028 (6) Non compliance with medical treatment ICD Codes: Z91.19 - Patient's noncompliance with other medical treatment and regimen SNOMED: 4761200 (7) Seizure disorder ICD Codes: G40.909 - Epilepsy, unspecified, not intractable, without status epilepticus SNOMED: 356907164 (8) ESRD (end stage renal disease) on dialysis ICD Codes: N18.6 - End stage renal disease; Z99.2 - Dependence on renal dialysis SNOMED: 192732999 (9) Hypothyroidism ICD Codes: E03.9 - Hypothyroidism, unspecified SNOMED: 29218003 (10) Diabetes mellitus, type II ICD Codes: E11.9 - Type 2 diabetes mellitus without complications SNOMED: 90253316 (11) CHF (congestive heart failure) ICD Codes: I50.9 - Heart failure, unspecified SNOMED: 04968772 Status: unchanged Assessment/Plan: 57 y M with ESRD on HD who is admitted due to AMS and missing HD x1. Has a history of non compliance with medical treatment. 1.ESRD - HD today. 2.5 L removed - Dr. Solis consult appreciated - Resume renal medications, binders, supplements, Epogen per nephrology 2.HTN - Resume medications and IV PRN as needed. Holding parameters placed 3.Anemia of chronic disease / renal disease - Monitor H/H - Epogen per nephrology 4.Schizoaffective disorder/bipolar - Resume home medications. Haldol and quetiapine 5.Diabetes mellitus type II -Insulin protocol 6.Hypothyroidism - Continue Levothyroxine. 7.Upper extremity wounds from self trauma - Wound care FULL CODE DVT - GI ppx I spent 70 minutes on thhis encounter. 50% spent face to face and on care coordination. Diego Ramirez M.D. Oct 30, 2018 08:10
--- NOTE | 2018-10-30 08:33 | NUR ---
NURSE NOTES: Patient alert to name,respirations unlabored,patient has shunt to right upper arm with strong bruit and thrill.patient has on bilateral soft wrist restraints,ROM will be provided and skin care.will assist patient with breakfast.Bed alarm is on,call light within reach.
[2018-10-30] MEDS ORDERED: Minoxidil 2.5mg tab ORAL SCH (09:00)
[2018-10-30] MEDS: Heparin 5000 units/ml inj SUBQ SCH ×2 (09:00→21:54)
[2018-10-30] MEDS: Calcium Acetate 667mg Tab ORAL SCH ×3 (09:00→19:00)
[2018-10-30] MEDS ORDERED: Lisinopril 20mg tab ORAL SCH (09:00)
[2018-10-30] MEDS: Carvedilol 12.5mg tab ORAL SCH ×2 (09:00→21:55)
[2018-10-30 10:06] LABS: ALANINE AMINOTRANSFERASE 12 U/L (12-78); ALBUMIN 2.6 G/DL (3.4-5.0); ALKALINE PHOSPHATASE 115 U/L (46-116); ASPARTATE AMINO TRANSFERASE 7 U/L (15-37); BILIRUBIN,DIRECT 0.2 MG/DL (0.0-0.3); BILIRUBIN,TOTAL 0.5 MG/DL (0.2-1.0); FERRITIN 322 NG/ML (8-388); PHOSPHORUS 7.9 MG/DL (2.5-4.9)
[2018-10-30 10:17] LABS: % IRON SATURATION 12 % (15-50); IRON 20 ug/dL (50-175); TOTAL IRON BINDING CAPACITY 163 ug/dL (250-450)
--- NOTE | 2018-10-30 10:40 | NUR ---
PT NOTE Received MD order for PT evaluation, medical record reviewed. Patient currently on dialysis, will re-attempt later as schedule permits.
[2018-10-30 12:00] VITALS: BP 150/70
[2018-10-30] MEDS: sitaGLIPtin 25mg tab ORAL SCH (12:25)
[2018-10-30] MEDS: Nephrovite tab (Rena-Vite) ORAL SCH (12:30)
--- NOTE | 2018-10-30 13:17 | Consultation ---
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 Brought in by EMS from snf facility. Altered mental status x1 day. History of end-stage renal disease on dialysis. Missed last dialysis session. On arrival patient appears lethargic. Not answering questions purposefully. Has been seen here previously for similar presentation. No reported fevers or chills. No other aggravating relieving factors. No other associated symptoms No Known Allergies (Verified , 08/23/06) Past Medical History: DM, HTN, COPD, seizures, renal disease, dialysis Past Medical History: No History, Except For Hx Cardiac Problems: Yes Hx Hypertension: Yes Hx COPD: Yes Hx Diabetes: Yes Hx Dialysis: Yes - [id number] Hx Neurological Problems: Yes Hx Seizures: Yes . Assessment/Plan (1) ESRD (end stage renal disease) on dialysis (2) Altered level of consciousness / Encephalopathy metabolic (3) Schizoaffective disorder, bipolar type (4) h/o Hypothyroidism (5) Anemia in chronic renal disease Also: - Cellulitis both LE - End-stage renal disease, on hemodialysis. fistula right arm - HTN / Pulmonary HTN - Diabetes type 2. Others - Morbid obesity. - H/O Colon Cancer - H/O Hep C - H/O Depression and Bipolar disease - Psych disease uncoaporative --Bilateral leg numbness --diabetic neuropathy --L5-S1 disc protrusion HD about to get started when seen this am- h/o refusing care and tests periodically skin care / Antibiotics per consultants anti Sz med to Eamon Hyawood MD Oct 30, 2018 13:17
[2018-10-30] MEDS ORDERED: Minoxidil 2.5mg tab ORAL PRN (13:30)
--- NOTE | 2018-10-30 13:35 | NUR ---
PT EVALUATION NOTE Patient seen for initial evaluation, see complete evaluation for details. Patient demonstrates generalized weakness, impaired balance and decreased safety awareness which affects patient's ability to perform mobility tasks. Patient requires mod/max assist for bed mobility and is unable to stand due to weakness. Patient will benefit from skilled inpatient PT intervention to address strength, balance and safety to improve level of functional mobility. Recommend discharge to SNF once medically cleared by MD. Addendum: 10/30/18 at 1453 by RONNIE BHATIA PT Amended: Links added.
[2018-10-30] MEDS ORDERED: HydrALAZINE 25mg tab ORAL SCH (14:00)
[2018-10-30] MEDS: HydrALAZINE 25mg tab ORAL SCH ×2 (14:43→21:57)
[2018-10-30] MEDS ORDERED: Iron Sucrose 200 MG in NS 110 ML IV ONE (15:00)
[2018-10-30 16:00] VITALS: BP 145/80
--- NOTE | 2018-10-30 18:53 | Cardiology Report ---
APPROVED REPORT EKG Measurement Heart [id number] CT [id number] [id number] Sinus bradycardia Anterior infarct, age undetermined Abnormal ECG
[2018-10-30] MEDS: Docusate 100mg cap ORAL SCH (19:00)
[2018-10-30] MEDS: Losartan 50mg tab ORAL SCH (19:01)
--- NOTE | 2018-10-30 19:24 | NUR ---
NURSE NOTES: patient resting at this time,bed alarm on,call light within reach.
[2018-10-30 20:00] VITALS: BP 190/69
[2018-10-30] MEDS: Dyna-Hex 2% Top Sol 2oz TOPIC SCH (20:00)
--- NOTE | 2018-10-30 20:00 | NUR ---
HAND-OFF: Report given to KAYLYN MO.
--- NOTE | 2018-10-30 20:01 | NUR ---
NURSE NOTES: Received patient in no apparent distress. A&OX1. IV site patent and intact. AV shunt noted on right upper arm, bruit and thrill present. Bed in lowest position. Call light within reach. Will continue to monitor.
[2018-10-30] MEDS ORDERED: Epoetin Alfa-EPBX(ESRD on dialysis)10,000 unit/ml vial SUBQ SCH (21:00)
[2018-10-31] VITALS (7 sets, daily range): BP systolic 154–193; BP diastolic 61–89
--- NOTE | 2018-10-31 00:45 | Consultation ---
DATE OF CONSULTATION: 10/30/2018 HISTORY OF PRESENT ILLNESS: The patient is a 57-year-old female with a history of multiple medical comorbidities who is well known to this physician. The patient has a history of schizoaffective disorder. The patient has been having waxing and waning consciousness, confused, episodes of agitation. She was attempting to out of bed, gets easily agitated. She has had memory impairment, not engaged during evaluation. PAST PSYCHIATRIC HISTORY: Schizoaffective disorder, has been on multiple psychotropic medications before coming into the hospital. The patient has been on Seroquel. PAST MEDICAL HISTORY: Significant for obesity,renal failure, congestive heart failure, diabetes mellitus, hypothyroidism, GERD, hepatitis C, seizure disorder. ALLERGIES: No known drug allergies. SUBSTANCE ABUSE HISTORY: No known history of illicit drug use or alcohol. MENTAL STATUS EXAMINATION: The patient has waxing and waning of consciousness. Mood is agitated. Affect is flat. Thought process is concrete. Thought content, no suicidal or homicidal ideation. Cognition is impaired. Insight and judgment is impaired. ASSESSMENT: AXIS I: Schizoaffective disorder. Acute encephalopathy. PLAN: 1. Will continue the patient on Seroquel 300 mg at bedtime. 2. Increase to Ativan anxiety and agitation. 3. We will continue to follow and readjust the medications. Blanka Beckett M.D. DR: Shraddha JOB#: [id number] CC: VIKAS
[2018-10-31] MEDS ORDERED: LORazepam Inj 2mg/ml 1ml IM PRN (01:45)
[2018-10-31] MEDS: Levemir Flexpen SUBQ SCH ×2 (06:12→17:33)
[2018-10-31] MEDS: NovoLOG Insulin Flexpen SUBQ SCH ×4 (06:13→21:00)
[2018-10-31] MEDS: HydrALAZINE 25mg tab ORAL SCH (06:13)
[2018-10-31 06:57] LABS: ANION GAP 14 mmol/L (5-15); BLOOD UREA NITROGEN 53 mg/dL (7-18); CALCIUM 9.1 MG/DL (8.5-10.1); CARBON DIOXIDE 26 MMOL/L (21-32); CHLORIDE 101 MMOL/L (98-107); CREATININE 7.3 MG/DL (0.55-1.30); POTASSIUM 4.4 MMOL/L (3.5-5.1); SODIUM 141 MMOL/L (136-145)
--- NOTE | 2018-10-31 07:23 | NUR ---
HAND-OFF: Report given to Lilly MO.
--- NOTE | 2018-10-31 07:26 | NUR ---
NURSE NOTES: Patient sitting up in bed assist patient with breakfast,respirations unlabored.AV shunt to the right arm remains with strong bruit and thrillPatient has soft wrist restraint in place will provide skin care and ROM exercises.Bed alarm is on,call light within reach.
--- NOTE | 2018-10-31 08:01 | General Progress Note ---
Assessment/Plan Problem List: (1) Acute metabolic encephalopathy ICD Codes: G93.41 - Metabolic encephalopathy SNOMED: 11073588, 594523819 (2) Altered level of consciousness ICD Codes: R40.4 - Transient alteration of awareness SNOMED: 7800178 (3) MDD (major depressive disorder), recurrent episode, moderate ICD Codes: F33.1 - Major depressive disorder, recurrent, moderate SNOMED: 78204575, 305589070 (4) Schizoaffective disorder, bipolar type ICD Codes: F25.0 - Schizoaffective disorder, bipolar type SNOMED: 11957746 (5) Non-compliance with renal dialysis ICD Codes: Z91.15 - Patient's noncompliance with renal dialysis SNOMED: 329975352499214 (6) Non compliance with medical treatment ICD Codes: Z91.19 - Patient's noncompliance with other medical treatment and regimen SNOMED: 8967923 (7) Seizure disorder ICD Codes: G40.909 - Epilepsy, unspecified, not intractable, without status epilepticus SNOMED: 612957255 (8) ESRD (end stage renal disease) on dialysis ICD Codes: N18.6 - End stage renal disease; Z99.2 - Dependence on renal dialysis SNOMED: 717215501 (9) Hypothyroidism ICD Codes: E03.9 - Hypothyroidism, unspecified SNOMED: 11049981 (10) Diabetes mellitus, type II ICD Codes: E11.9 - Type 2 diabetes mellitus without complications SNOMED: 74058162 (11) CHF (congestive heart failure) ICD Codes: I50.9 - Heart failure, unspecified SNOMED: 45040804 Status: unchanged Assessment/Plan: 57 y M with ESRD on HD who is admitted due to AMS and missing HD x1. Has a history of non compliance with medical treatment. 1.ESRD - HD. 2.5 L removed on 10/30 - Dr. Solis consult appreciated - Resume renal medications, binders, supplements, Epogen per nephrology 2.HTN - Resume medications and IV PRN as needed. Holding parameters placed 3.Anemia of chronic disease / renal disease - Monitor H/H - Epogen per nephrology 4.Schizoaffective disorder/bipolar - Resume home medications. Haldol and quetiapine 5.Diabetes mellitus type II -Insulin protocol 6.Hypothyroidism - Continue Levothyroxine. 7.Upper extremity wounds from self trauma - Wound care FULL CODE DVT - GI ppx Disposition: DC planning back to SNF. d/w CM I spent 40 minutes on this encounter. 50% spent face to face and on care coordination. Subjective Date patient seen: Oct 31, 2018 ROS Limited/Unobtainable: Yes Allergies: Coded Allergies: No Known Allergies (Verified , 08/23/06) Subjective seen and examined at bedside calm, cooperative will plan for dc planning Objective Last 24 Hour Vital Signs Date Time Temp Pulse Resp B/P (MAP) Pulse Ox O2 Delivery O2 Flow Rate FiO2 10/31/18 06:13 170/72 10/31/18 04:00 98.2 67 19 170/72 (104) 97 10/31/18 00:00 98.0 59 19 178/71 (106) 96 10/30/18 21:57 190/69 10/30/18 21:55 92 190/69 10/30/18 21:00 Room Air 10/30/18 20:00 97.7 70 19 190/69 (109) 97 10/30/18 19:01 187/67 10/30/18 16:00 98.3 92 20 145/80 (101) 97 10/30/18 14:43 185/66 10/30/18 12:00 98.3 79 21 150/70 (96) 97 10/30/18 10:07 Room Air Intake and Output 10/30/18 10/31/18 18:59 06:59 Intake Total 480 ml Output Total 2800 ml Balance -2320 ml Intake Oral 480 ml Output Hemodialysis UF 2800 ml # Voids 2 # Bowel Movements 1 Laboratory Tests 10/30/18 08:55: Phosphorus Level 7.9H, Magnesium Level 2.8H, Iron Level 20L, Total Iron Binding Capacity 163L, Percent Iron Saturation 12L, Unsaturated Iron Binding 143, Ferritin 322, Total Bilirubin 0.5, Direct Bilirubin 0.2, Aspartate Amino Transf (AST/SGOT) 7L, Alanine Aminotransferase (ALT/SGPT) 12, Alkaline Phosphatase 115 , Total Protein 6.1L, Albumin 2.6L, Vitamin B12 Level 567, Folate 31.5 10/31/18 05:50: Sodium Level 141, Potassium Level 4.4, Chloride Level 101, Carbon Dioxide Level 26, Anion Gap 14, Blood Urea Nitrogen 53H, Creatinine 7.3H, Estimat Glomerular Filtration Rate 5.8, Glucose Level 69L, Calcium Level 9.1 Height (Feet): 5 Height (Inches): 5.00 Weight (Pounds): 191 Objective General Appearance: Obese, no apparent distress, calm Head: normocephalic Eyes: bilateral eye normal inspection, bilateral eye PERRL ENT: normal ENT inspection Neck: normal inspection Respiratory: chest non-tender, lungs clear, normal breath sounds, speaking full sentences Cardiovascular : regular rate, rhythm, 2+ lower extremity edema bilaterally Gastrointestinal: normal bowel sounds, non tender, soft, non-distended, no guarding, no rebound Musculoskeletal: normal inspection, R arm HD access Neurologic: lethargic, grossly normal, moves all extremities Psychiatric: confused, depressed affect Skin: other - multiple healing scabs and bruises to bilateral arms Diego Ramirez M.D. Oct 31, 2018 08:01
[2018-10-31] MEDS: Carvedilol 12.5mg tab ORAL SCH (09:00)
[2018-10-31] MEDS: Losartan 50mg tab ORAL SCH ×2 (09:00→18:36)
[2018-10-31] MEDS ORDERED: Losartan 50mg tab ORAL SCH (09:00)
[2018-10-31] MEDS: Docusate 100mg cap ORAL SCH ×3 (09:22→18:36)
[2018-10-31] MEDS: sitaGLIPtin 25mg tab ORAL SCH (09:23)
[2018-10-31] MEDS: Nephrovite tab (Rena-Vite) ORAL SCH (09:24)
[2018-10-31] MEDS: Calcium Acetate 667mg Tab ORAL SCH ×3 (09:30→18:36)
[2018-10-31] MEDS: Heparin 5000 units/ml inj SUBQ SCH ×2 (09:38→20:25)
--- NOTE | 2018-10-31 10:14 | Nephrology Progress Note ---
Assessment/Plan Problem List: (1) ESRD (end stage renal disease) on dialysis (2) Anemia in chronic renal disease (3) HTN (hypertension) (4) Hypothyroidism (5) Diabetes mellitus, type II (6) Seizure disorder (7) Schizoaffective disorder, bipolar type Assessment 1) ESRD (end stage renal disease) on dialysis (2) Altered level of consciousness / Encephalopathy metabolic (3) Schizoaffective disorder, bipolar type (4) h/o Hypothyroidism (5) Anemia in chronic renal disease Also: - Cellulitis both LE - End-stage renal disease, on hemodialysis. fistula right arm - HTN / Pulmonary HTN - Diabetes type 2. Others - Morbid obesity. - H/O Colon Cancer - H/O Hep C - H/O Depression and Bipolar disease - Psych disease uncoaporative --Bilateral leg numbness --diabetic neuropathy --L5-S1 disc protrusion Plan HD done 10/30 next 11/01 if in house h/o refusing care and tests periodically hold Coreg for low HR updose hydralazine skin care / Antibiotics per consultants anti Sz med to po Subjective ROS Limited/Unobtainable: No Constitutional: Reports: malaise Objective Objective Last 24 Hour Vital Signs Date Time Temp Pulse Resp B/P (MAP) Pulse Ox O2 Delivery O2 Flow Rate FiO2 10/31/18 09:15 57 154/63 (93) 10/31/18 09:00 57 154/63 10/31/18 09:00 58 154/63 10/31/18 08:00 97.8 62 16 167/61 (96) 97 10/31/18 06:13 170/72 10/31/18 04:00 98.2 67 19 170/72 (104) 97 10/31/18 00:00 98.0 59 19 178/71 (106) 96 10/30/18 21:57 190/69 10/30/18 21:55 92 190/69 10/30/18 21:00 Room Air 10/30/18 20:00 97.7 70 19 190/69 (109) 97 10/30/18 19:01 187/67 10/30/18 16:00 98.3 92 20 145/80 (101) 97 10/30/18 14:43 185/66 10/30/18 12:00 98.3 79 21 150/70 (96) 97 Intake and Output 10/30/18 10/31/18 19:00 07:00 Intake Total 480 ml Output Total 2800 ml Balance -2320 ml Intake Oral 480 ml Output Hemodialysis UF 2800 ml # Voids 2 # Bowel Movements 1 Current Medications Medications (Trade) Dose Ordered Sig/Gabriele Route PRN Reason Start Time Stop Time Status Last Admin Dose Admin Acetaminophen (Tylenol) 650 mg Q4H PRN ORAL Mild Pain (Pain Scale 1-3) 10/29/18 17:45 11/28/18 17:44 Acetaminophen (Tylenol) 650 mg Q4H PRN ORAL fever 10/29/18 17:45 11/28/18 17:44 Albuterol/ Ipratropium (Albuterol/ Ipratropium) 3 ml Q6H PRN HHN Shortness of Breath 10/29/18 17:45 11/03/18 17:44 Bisacodyl (Dulcolax) 10 mg HSPRN PRN RECTAL Constipation 10/29/18 18:00 11/28/18 17:44 Calcium Acetate (Phoslo) 1,334 mg THREE TIMES A DAY ORAL 10/30/18 18:00 11/29/18 08:59 10/31/18 09:30 Carvedilol (Coreg) 12.5 mg Q12HR ORAL 10/30/18 09:00 11/28/18 20:59 10/30/18 21:55 Chlorhexidine Gluconate (Cassia-Hex 2%) 1 applic DAILY@2000 TOPIC 10/29/18 20:00 11/28/18 19:59 Clopidogrel Bisulfate (Plavix) 75 mg DAILY ORAL 10/30/18 09:00 11/29/18 08:59 10/31/18 09:25 Dextrose (Dextrose 50%) 25 ml Q30M PRN IV Hypoglycemia 10/29/18 17:45 11/28/18 17:44 Dextrose (Dextrose 50%) 50 ml Q30M PRN IV Hypoglycemia 10/29/18 17:45 11/28/18 17:44 Diphenhydramine HCl (Benadryl) 25 mg Q6H PRN ORAL Itching/Pruritis 10/29/18 17:45 11/28/18 17:44 Docusate Sodium (Colace) 100 mg THREE TIMES A DAY ORAL 10/30/18 18:00 11/29/18 17:59 10/31/18 09:22 Epoetin Mau (Epoetin Mau(ESRD on dialysis)) 10,000 unit SUN-SUN-SUN SUBQ 10/30/18 21:00 11/29/18 20:59 10/30/18 21:55 Gabapentin (Neurontin) 300 mg Q12HR ORAL 10/29/18 21:00 11/28/18 20:59 10/30/18 21:55 Haloperidol (Haldol) 5 mg Q8HR ORAL 10/30/18 14:00 11/29/18 13:59 10/31/18 06:12 Heparin Sodium (Porcine) (Heparin 5000 units/ml) 5,000 units EVERY 12 HOURS SUBQ 10/29/18 21:00 11/28/18 20:59 10/31/18 09:38 Heparin Sodium/ Sodium Chloride (Heparin 1000 units/500ml Premix) 1,000 unit ONCE PRN IV picc line placement 10/29/18 15:00 10/31/18 14:59 Hydralazine HCl (Apresoline) 25 mg Q8HR ORAL 10/30/18 14:00 11/29/18 13:59 10/31/18 06:13 Hydromorphone HCl (Dilaudid) 1 mg Q6H PRN IVP Moderate Pain (Pain Scale 4-6) 10/29/18 17:45 11/05/18 17:44 Hydromorphone HCl (Dilaudid) 2 mg Q6H PRN IVP Severe Pain (Pain Scale 7-10) 10/29/18 17:45 11/05/18 17:44 Insulin Aspart (NovoLOG) BEFORE MEALS AND HS SUBQ 10/29/18 21:00 11/28/18 20:59 10/30/18 17:20 Insulin Detemir (Levemir) 5 units NOVOLOGBS SUBQ 10/30/18 06:30 11/29/18 06:29 10/31/18 06:12 Levetiracetam (Keppra) 1,000 mg Q12HR ORAL 10/29/18 21:00 11/28/18 20:59 10/31/18 09:23 Levothyroxine Sodium (Synthroid) 50 mcg ACBREAKFAST ORAL 10/30/18 06:30 11/29/18 06:29 10/31/18 06:12 Lorazepam (Ativan 2mg/ml 1ml) 1 mg Q4H PRN IM For Anxiety 10/31/18 01:45 11/07/18 01:44 Losartan Potassium (Cozaar) 50 mg BID ORAL 10/30/18 18:00 11/30/18 08:59 10/30/18 19:01 Minoxidil (Loniten) 2.5 mg Q4HR PRN ORAL bp over 165 syst 10/30/18 13:30 11/29/18 08:59 Nifedipine (Procardia XL) 60 mg DAILY ORAL 10/31/18 09:00 11/30/18 08:59 Nitroglycerin (Ntg) 0.4 mg Q5M X 3 DOSES PRN SL Prn Chest Pain 10/29/18 17:45 11/28/18 17:44 Ondansetron HCl (Zofran) 4 mg Q6H PRN IVP Nausea & Vomiting 10/29/18 17:45 11/28/18 17:44 Pantoprazole (Protonix) 40 mg EVERY 12 HOURS ORAL 10/30/18 21:00 11/29/18 20:59 10/31/18 09:24 Polyethylene Glycol (Miralax) 17 gm HSPRN PRN ORAL Constipation 10/29/18 17:45 11/28/18 17:44 Pravastatin Sodium (Pravachol) 40 mg BEDTIME ORAL 10/30/18 21:00 11/29/18 20:59 10/30/18 21:56 Quetiapine Fumarate (SEROquel) 300 mg QHS ORAL 10/31/18 21:00 11/30/18 20:59 Sevelamer Carbonate (Renvela) 800 mg THREE TIMES A DAY ORAL 10/30/18 18:00 11/29/18 17:59 10/31/18 09:24 Sitagliptin Phosphate (Januvia) 25 mg DAILY ORAL 10/30/18 09:00 11/29/18 08:59 10/31/18 09:23 Vitamin B Complex/ Vit C/Folic Acid (Nephrovite) 1 tab DAILY ORAL 10/30/18 09:00 11/29/18 08:59 10/31/18 09:24 Zolpidem Tartrate (Ambien) 5 mg HSPRN PRN ORAL Insomnia 10/29/18 17:45 11/05/18 17:44 Laboratory Tests 10/31/18 05:50: Sodium Level 141, Potassium Level 4.4, Chloride Level 101, Carbon Dioxide Level 26, Anion Gap 14, Blood Urea Nitrogen 53H, Creatinine 7.3H, Estimat Glomerular Filtration Rate 5.8, Glucose Level 69L, Calcium Level 9.1 Height (Feet): 5 Height (Inches): 5.00 Weight (Pounds): 191 General Appearance: no apparent distress, lethargic Cardiovascular: normal rate Respiratory/Chest: decreased breath sounds Abdomen: distended Eamon Solis MD Oct 31, 2018 10:14
[2018-10-31] MEDS: HydrALAZINE 50mg tab ORAL SCH ×2 (13:46→21:40)
--- NOTE | 2018-10-31 15:20 | NUR ---
DISCHARGE PLANNING DISCHARGE ORDER NOTED Patient has been accepted to; [facility] [address] [place] [address] Bed: 312-B Skilled [phone] for Nurse to Nurse report [facility] ETA for transportation: 17:30
--- NOTE | 2018-10-31 15:52 | NUR ---
NURSE NOTES: [facility] Nephrology called regarding DR Solis order for Dialysis schedule for 11/01/18
--- NOTE | 2018-10-31 17:20 | NUR ---
NURSE NOTES: Report given to Jair PAZ at [facility].
[2018-10-31] MEDS ORDERED: PROCARDIA XL30 MG ORAL (18:01)
[2018-10-31] MEDS ORDERED: SEROQUEL100 MG ORAL (18:01)
[2018-10-31] MEDS ORDERED: HALDOL5 MG ORAL (18:01)
[2018-10-31] MEDS ORDERED: COZAAR50 MG ORAL (18:01)
[2018-10-31] MEDS ORDERED: PRAVACHOL20 MG ORAL ×2 (18:01→18:38)
[2018-10-31] MEDS ORDERED: RENVELA800 MG ORAL ×2 (18:01→18:39)
--- NOTE | 2018-10-31 18:01 | Discharge Summary ---
Discharge Summary Hospital Course Date of Admission Oct 29, 2018 at 15:21 Date of Discharge oct Admitting Diagnosis AMS/ESRD HPI Cris Zuluaga is a 57 year old female who was admitted on Oct 29, 2018 at 15:21 for Altered Mental Status/End Stage Renal Disease Consultations Nephrology: Dr. Solis Psychiatry: DR. Beckett Procedures CXR EKG Hemodialysis Hospital Course 57 y M with ESRD on HD who is admitted due to AMS and missing HD x1. Has a history of non compliance with medical treatment. Admitted with acute encephalopathy. Infection ruled out. 1.ESRD - HD. 2.5 L removed on 10/30 - Dr. Solis consult appreciated - Resume renal medications, binders, supplements, Epogen per nephrology 2.HTN - Resume medications and IV PRN as needed. Holding parameters placed 3.Anemia of chronic disease / renal disease - Monitor H/H - Epogen per nephrology 4.Schizoaffective disorder/bipolar - Resume home medications. Haldol and quetiapine. Psychiatry consult with Dr. Beckett 5.Diabetes mellitus type II, controlled -Insulin protocol, Levemir 5mg BID, Sitagliptin 6.Hypothyroidism - Continue Levothyroxine. 7.Upper extremity wounds from self trauma - Wound care FULL CODE DVT - GI ppx Disposition: DC back to [facility]. I spent 35 minutes on this encounter. Discharge Medications New Medications: Haloperidol (Haloperidol) 5 Mg Tablet 5 MG ORAL Q8HR for 30 Days, #90 TAB Losartan Potassium* (Cozaar*) 50 Mg Tablet 50 MG ORAL BID for 30 Days, #60 TAB Nifedipine Xl* (Procardia Xl*) 30 Mg Tab.er.24 60 MG ORAL DAILY for 30 Days, #30 TAB Pravastatin Sod* (Pravachol*) 20 Mg Tablet 40 MG ORAL BEDTIME for 30 Days, #30 TAB Quetiapine Fumarate* (Seroquel*) 100 Mg Tablet 300 MG ORAL QHS for 30 Days, #30 TAB Sevelamer Carbonate (Renvela) 800 Mg Tablet 800 MG ORAL THREE TIMES A DAY for 30 Days, #90 TAB Continued Medications: Acetaminophen* (Acetaminophen 325MG Tablet*) 325 Mg Tablet 650 MG ORAL QID PRN for Pain Scale (3-5), TAB Acetaminophen* (Acetaminophen 325MG Tablet*) 325 Mg Tablet 650 MG ORAL Q6H PRN for TEMPERATURE, TAB Bisacodyl (Dulcolax) 10 Mg Supp.rect 10 MG RC DAILY PRN for Constipation, SUPP Calcium Acetate (Calcium Acetate) 667 Mg Capsule 667 MG PO THREE TIMES A DAY, CAP Carvedilol (Coreg) 12.5 Mg Tablet 12.5 MG ORAL Q12HR for 30 Days, #60 TAB Clopidogrel Bisulfate* (Plavix*) 75 Mg Tablet 75 MG ORAL DAILY, TAB Fluticasone/Vilanterol (Breo Ellipta 100-25 Mcg INH) 1 Each Blst.w.dev 1 PUFF IH BID, EACH Gabapentin (Neurontin) 300 Mg Capsule 300 MG ORAL BID, #15 CAP 0 Refills Hydralazine HCl (Hydralazine HCl) 50 Mg Tablet 75 MG ORAL Q8HR for 30 Days, #45 TAB Insulin Glargine (Lantus) 100 Unit/1 Ml Insuln.pen 10 UNITS SUBQ BEDTIME, #1 EA 0 Refills Ipratropium Galt 0.5MG/2.5ML (Ipratropium Galt 0.5MG/2.5ML) 0.2 Mg/1 Ml Solution 0.5 MG HHN FOUR TIMES A DAY PRN for Shortness of Breath, #28 EA Lactulose (Lactulose) 10 Gm/15 Ml Solution 10 GM PO DAILY PRN for Constipation Levetiracetam (Levetiracetam) 1,000 Mg Tablet 1000 MG ORAL TWICE A DAY, #60 TAB 0 Refills Levothyroxine Sodium (Synthroid) 50 Mcg Tablet 50 MCG ORAL DAILY, TAB Take in the morning on an empty stomach, at least 30 minutes beforefood. Magnesium Hydroxide* (Milk Of Magnesia*) 400 Mg/5 Ml Oral.susp 30 ML ORAL DAILY PRN for Constipation, ML Minoxidil* (Loniten*) 2.5 Mg Tablet 2.5 MG PO DAILY, TAB HOLD IF SBP < 110, DBP < 60 OR HR < 60 HOLD AM DOSE ON --SAT Polyethylene Glycol 3350* (Miralax*) 17 Gm Powd.pack 17 GM ORAL DAILY, PACKET Sitagliptin* (Januvia*) 25 Mg Tablet 25 MG ORAL DAILY, TAB Vitamin B Cmplx/Vit C/Folic AC (Nephro-Denise Tablet) 0.8 Mg Tablet 1 TAB ORAL DAILY, #30 TAB 0 Refills Discontinued Medications: Amlodipine Besylate* (Amlodipine Besylate*) 10 Mg Tablet 10 MG ORAL BID, TAB HOLD IF SBP < 110, DBP < 60, OR HR < 60 HOLD AM DOSE ON Atorvastatin Calcium* (Atorvastatin Calcium*) 40 Mg Tablet 40 MG ORAL BEDTIME, TAB Aviqjwpfy-Ryq-2* (Ovvllevd-Kpk-9*) 1 Each Patch.tdwk 1 PATCH TDERMAL QWEEK for 30 Days, #30 PATCH Lisinopril* (Lisinopril*) 10 Mg Tablet 20 MG ORAL DAILY, TAB HOLD IF SBP < 110, DBP < 60, OR HR < 60 HOLD AM DOSE ON Quetiapine Fumarate* (Seroquel*) 25 Mg Tablet 25 MG ORAL TID for 30 Days, #30 TAB Discharge Condition Upon Discharge: stable Discharge Disposition Patient was discharged to [facility] Discharge Diagnoses: (1) Acute metabolic encephalopathy (2) Schizoaffective disorder, bipolar type (3) Seizure disorder (4) Non-compliance with renal dialysis (5) ESRD (end stage renal disease) on dialysis (6) Obesity (BMI 30-39.9) (7) Non compliance with medical treatment (8) Anemia in chronic renal disease (9) HTN (hypertension) (10) GERD (gastroesophageal reflux disease) (11) CHF (congestive heart failure) (12) Hepatitis-C Diego Ramirez M.D. Oct 31, 2018 18:01
[2018-10-31] MEDS ORDERED: ACETAMINOPHEN500 M3 ORAL (18:20)
[2018-10-31] MEDS ORDERED: FERROUS SULFAT325 MG ORAL (18:22)
[2018-10-31] MEDS ORDERED: HALOPERIDOL5 MG ORAL (18:24)
[2018-10-31] MEDS ORDERED: QUETIAPINE FUM300 MG ORAL (18:25)
[2018-10-31] MEDS ORDERED: CARVEDILOL25 MG ORAL (18:27)
[2018-10-31] MEDS ORDERED: HYDRALAZINE HCL25 M1 ORAL (18:30)
--- NOTE | 2018-10-31 18:30 | NUR ---
NURSE NOTES: Skin care given,pictures taken, waiting for [facility].
[2018-10-31] MEDS ORDERED: LAMICTAL100 MG ORAL (18:33)
[2018-10-31] MEDS ORDERED: LOSARTAN POTASS50 MG ORAL (18:34)
[2018-10-31] MEDS ORDERED: ADALAT20 MG ORAL (18:35)
[2018-10-31] MEDS ORDERED: RENVELA0.8 GM ORAL (18:39)
--- NOTE | 2018-10-31 19:32 | NUR ---
HAND-OFF: Report given to KAYLYN MO.
--- NOTE | 2018-10-31 19:33 | NUR ---
NURSE NOTES: Received patient in no apparent distress. A&OX1. AV shunt noted on right upper arm, bruit and thrill present. Patient waiting for discharge. Bed in lowest position. Call light within reach. Will continue to monitor.
[2018-10-31] MEDS: Dyna-Hex 2% Top Sol 2oz TOPIC SCH (20:00)
--- NOTE | 2018-10-31 20:00 | NUR ---
NURSE NOTES: Call [facility] regarding estimated bean picker time. They said "in 30minute".
[2018-10-31] MEDS ORDERED: BISACODYL10 M1 RC (20:39)
[2018-10-31] MEDS ORDERED: CALCIUM ACETAT667 M1 PO (20:41)
[2018-10-31] MEDS ORDERED: COREG12.5 MG ORAL (20:42)
[2018-10-31] MEDS ORDERED: BREO ELLIPTA 11 EACH IH (20:43)
[2018-10-31] MEDS ORDERED: NEURONTIN300 MG ORAL (20:44)
[2018-10-31] MEDS ORDERED: IPRATROPIU0.2 MG/1 M HHN (20:46)
[2018-10-31] MEDS ORDERED: LEVETIRACETAM1000 MG ORAL (20:46)
[2018-10-31] MEDS ORDERED: SYNTHROID50 MCG ORAL (20:48)
[2018-10-31] MEDS ORDERED: MOM30 ML ORAL (20:49)
[2018-10-31] MEDS ORDERED: MIRALAX17 G2 ORAL (20:50)
[2018-10-31] MEDS ORDERED: JANUVIA25 MG ORAL (20:50)
[2018-10-31] MEDS ORDERED: NEPHROVITE1 TAB ORAL (20:51)
--- NOTE | 2018-10-31 21:00 | NUR ---
NURSE NOTES: Call [facility] regarding estimate pickup time. They said "in 10minute".
--- NOTE | 2018-10-31 22:00 | NUR ---
NURSE NOTES: Received phone call Jair JACKSON from [facility]. They can't accept patient at this time because it's too late. Call and left message to Dr. Arevalo. Waiting a call back. Addendum: 10/31/18 at 2207 by RKISTIN FOSTER RN RN Jair requested send patient next morning. Addendum: 10/31/18 at 2229 by KRISTIN FOSTER RN RN Left message Dr. Hawkins not Dr. Arevalo
--- NOTE | 2018-10-31 22:21 | NUR ---
NURSE NOTES: Dr. Arevalo called, notified regarding patient's discharge. Dr. Arevalo says "ok for cancel discharge today". Obtained renew restraint order. Addendum: 10/31/18 at 2229 by KRISTIN FOSTER RN RN Spoke with Dr. Hawkins not Dr. Arevalo
[2018-11-01] VITALS: BP 176/73
--- NOTE | 2018-11-01 01:15 | Progress Note ---
DATE: 11/01/2018 SUBJECTIVE: The patient's mental condition is unchanged since previous encounter. Continues with waxing and waning consciousness, gets agitated in restraints. MENTAL STATUS EXAMINATION: The patient is confused and disoriented. Mood is agitated. Affect is flat. Thought process is concrete. Thought content, no suicidal or homicidal ideations. ASSESSMENT: 1. Acute encephalopathy. 2. Schizoaffective disorder. PLAN: We will continue current medications. Provide the patient with reality orientation and supportive therapy. Blanka Beckett M.D. DR: Ever JOB#: [id number] CC:
[2018-11-01 04:00] VITALS: BP 156/66
[2018-11-01] MEDS: HydrALAZINE 50mg tab ORAL SCH (06:11)
[2018-11-01] MEDS: NovoLOG Insulin Flexpen SUBQ SCH (06:13)
[2018-11-01] MEDS: Levemir Flexpen SUBQ SCH (06:13)
--- NOTE | 2018-11-01 06:49 | NUR ---
NURSE NOTES: Call [facility] regarding schedule hemodialysis today. Hemodialysis nurse said that he can do in the morning.
[2018-11-01 07:20] LABS: BASOPHILS % (AUTO) 0.7 % (0.0-2.0); HEMATOCRIT 25.4 % (37.0-47.0); HEMOGLOBIN 8.1 G/DL (12.0-16.0); LYMPHOCYTES % (AUTO) 8.1 % (20.0-45.0); MEAN CORPUSCULAR VOLUME 97 FL (80-99); MONOCYTES % (AUTO) 9.2 % (1.0-10.0); NEUTROPHILS % (AUTO) 82.1 % (45.0-75.0); PLATELET COUNT 194 K/UL (150-450); RED BLOOD COUNT 2.63 M/UL (4.20-5.40); RED CELL DISTRIBUTION WIDTH 15.1 % (11.6-14.8); WHITE BLOOD COUNT 10.2 K/UL (4.8-10.8)
--- NOTE | 2018-11-01 07:22 | NUR ---
HAND-OFF: Report given to Linda MO.
[2018-11-01 08:00] VITALS: BP 156/68
--- NOTE | 2018-11-01 08:25 | Nephrology Progress Note ---
Assessment/Plan Problem List: (1) ESRD (end stage renal disease) on dialysis (2) Anemia in chronic renal disease (3) HTN (hypertension) (4) Hypothyroidism (5) Diabetes mellitus, type II (6) Seizure disorder (7) Schizoaffective disorder, bipolar type Assessment 1) ESRD (end stage renal disease) on dialysis (2) Altered level of consciousness / Encephalopathy metabolic (3) Schizoaffective disorder, bipolar type (4) h/o Hypothyroidism (5) Anemia in chronic renal disease Also: - Cellulitis both LE - End-stage renal disease, on hemodialysis. fistula right arm - HTN / Pulmonary HTN - Diabetes type 2. Others - Morbid obesity. - H/O Colon Cancer - H/O Hep C - H/O Depression and Bipolar disease - Psych disease uncoaporative --Bilateral leg numbness --diabetic neuropathy --L5-S1 disc protrusion Plan HD done 10/30 next 11/01 - PLASTIC SURGERY NURSE INFORMED ME THAT SHE REFUSED DIALYSIS TODAY 12/01 h/o refusing care and tests periodically hold Coreg for low HR updose hydralazine skin care / Antibiotics per consultants anti Sz med to po Subjective ROS Limited/Unobtainable: No Constitutional: Reports: malaise Objective Objective Last 24 Hour Vital Signs Date Time Temp Pulse Resp B/P (MAP) Pulse Ox O2 Delivery O2 Flow Rate FiO2 11/01/18 06:11 156/66 11/01/18 04:00 99.5 71 16 156/66 (96) 94 11/01/18 00:00 100.1 76 18 176/73 (107) 94 10/31/18 22:16 72 18 95 Room Air 21 10/31/18 21:40 205/76 10/31/18 21:00 Room Air 10/31/18 20:22 193/68 10/31/18 20:00 99.3 75 18 193/68 (109) 95 10/31/18 18:36 189/83 10/31/18 16:00 98.9 70 18 171/89 (116) 96 10/31/18 13:46 186/88 10/31/18 12:10 96.5 61 17 175/70 (105) 96 10/31/18 09:15 57 154/63 (93) 10/31/18 09:00 Room Air 10/31/18 09:00 57 154/63 10/31/18 09:00 58 154/63 Intake and Output 10/31/18 11/01/18 18:59 06:59 Intake Total 810 ml Balance 810 ml Intake Oral 810 ml Laboratory Tests 11/01/18 05:08: White Blood Count 10.2, Red Blood Count 2.63L, Hemoglobin 8.1L, Hematocrit 25.4L , Mean Corpuscular Volume 97, Mean Corpuscular Hemoglobin 31.0, Mean Corpuscular Hemoglobin Concent 32.1, Red Cell Distribution Width 15.1H, Platelet Count 194, Mean Platelet Volume 5.7L, Neutrophils (%) (Auto) 82.1H, Lymphocytes (%) (Auto) 8.1L, Monocytes (%) (Auto) 9.2, Eosinophils (%) (Auto) 0.0, Basophils (%) (Auto) 0.7, Sodium Level [Pending], Potassium Level [Pending] , Chloride Level [Pending], Carbon Dioxide Level [Pending], Blood Urea Nitrogen [Pending], Creatinine [Pending], Estimat Glomerular Filtration Rate [Pending], Glucose Level [Pending], Calcium Level [Pending], Phosphorus Level [Pending], Magnesium Level [Pending], Total Bilirubin [Pending], Aspartate Amino Transf ( AST/SGOT) [Pending], Alanine Aminotransferase (ALT/SGPT) [Pending], Alkaline Phosphatase [Pending], C-Reactive Protein, Quantitative [Pending], Pro-B-Type Natriuretic Peptide [Pending], Total Protein [Pending], Albumin [Pending], Globulin [Pending], Thyroid Stimulating Hormone (TSH) [Pending], Free Thyroxine [Pending], Free Triiodothyronine [Pending] Height (Feet): 5 Height (Inches): 5.00 Weight (Pounds): 191 General Appearance: no apparent distress Cardiovascular: normal rate Respiratory/Chest: decreased breath sounds Abdomen: distended Objective no change Eamon Solis MD Nov 01, 2018 08:25
[2018-11-01 08:33] LABS: ALANINE AMINOTRANSFERASE 14 U/L (12-78); ALBUMIN 2.7 G/DL (3.4-5.0); ALBUMIN/GLOBULIN RATIO 0.7 (1.0-2.7); ALKALINE PHOSPHATASE 121 U/L (46-116); ANION GAP 13 mmol/L (5-15); ASPARTATE AMINO TRANSFERASE 11 U/L (15-37); BILIRUBIN,TOTAL 0.5 MG/DL (0.2-1.0); BLOOD UREA NITROGEN 64 mg/dL (7-18); CALCIUM 9.6 MG/DL (8.5-10.1); CARBON DIOXIDE 25 MMOL/L (21-32); CHLORIDE 96 MMOL/L (98-107); CREATININE 8.8 MG/DL (0.55-1.30); PHOSPHORUS 5.2 MG/DL (2.5-4.9); POTASSIUM 4.8 MMOL/L (3.5-5.1); SODIUM 134 MMOL/L (136-145)
[2018-11-01] MEDS: Nephrovite tab (Rena-Vite) ORAL SCH (09:14)
[2018-11-01] MEDS: sitaGLIPtin 25mg tab ORAL SCH (09:14)
[2018-11-01] MEDS: Losartan 50mg tab ORAL SCH (09:14)
[2018-11-01 09:15] VITALS: BP 156/68
[2018-11-01] MEDS: Docusate 100mg cap ORAL SCH (09:15)
[2018-11-01] MEDS: Calcium Acetate 667mg Tab ORAL SCH (09:15)
[2018-11-01] MEDS: Heparin 5000 units/ml inj SUBQ SCH (09:18)
--- NOTE | 2018-11-01 10:35 | NUR ---
NURSE NOTES: Received pt from CHEPE FOSTER at 0730. pt is confused x1. pt is in RA, no SOB or acute respiratory distress noted. pt refused dialysis and Dr BARRERA and Dr LEROY are notified. and Dr LEROY stated because pt has dialysis tomorrow he can be D/C. pt has IV SHUNT LUISANA. all discharge assessments and instructions done. pt accept all medications. pt is stable. V/S stable. BP 145/66. Dr LEROY visited pt. pt left hospital with accompany of hospital personnel.
--- NOTE | 2018-11-01 22:45 | Progress Note ---
DATE: 11/01/2018 SUBJECTIVE: The patient is restrained, uncooperative with the care, refusing the dialysis. Poor insight. Not engaged during the evaluation. Easily agitated and at times combative. MENTAL STATUS EXAMINATION: The patient is alert, confused, disoriented. Mood is irritable and angry. Affect is flat. Thought process is concrete. Thought content, no suicidal or homicidal ideation. ASSESSMENT: 1. Acute encephalopathy. 2. Schizophrenia. PLAN: 1. We will continue current medication. 2. Provide the patient with reality orientation and supportive therapy. Blanka Beckett M.D. DR: RAYOMND JOB#: [id number] CC:
== END 2018-11-01 10:34 | DRG 291 ==
LOC: EDBD 14:29 → EMR 15:15 → 4E 15:21 → EDBEDREQSVC 17:46 → EDBEDREQ 18:30 → 4E 10-30 02:30
PROC: 5A1D70Z Performance of Urinary Filtration, Intermittent, Less than 6 Hours Per Day (ICD-10-PCS; principal; 2018-10-30)
DX: I13.2 Hypertensive heart and chronic kidney disease with heart failure and with stage 5 chronic kidney disease, or end stage renal disease (principal); N18.6 End stage renal disease; G93.41 Metabolic encephalopathy; F33.9 Major depressive disorder, recurrent, unspecified; L03.116 Cellulitis of left lower limb; L03.115 Cellulitis of right lower limb; F33.1 Major depressive disorder, recurrent, moderate; E11.22 Type 2 diabetes mellitus with diabetic chronic kidney disease; D63.1 Anemia in chronic kidney disease; G40.909 Epilepsy, unspecified, not intractable, without status epilepticus; E03.9 Hypothyroidism, unspecified; I50.9 Heart failure, unspecified; I27.20 Pulmonary hypertension, unspecified; F25.0 Schizoaffective disorder, bipolar type; Z91.15 Patient's noncompliance with renal dialysis; S41.109A Unspecified open wound of unspecified upper arm, initial encounter; Z91.19 Patient's noncompliance with other medical treatment and regimen; K21.9 Gastro-esophageal reflux disease without esophagitis; B19.20 Unspecified viral hepatitis C without hepatic coma; E66.01 Morbid (severe) obesity due to excess calories; Z85.038 Personal history of other malignant neoplasm of large intestine; E11.40 Type 2 diabetes mellitus with diabetic neuropathy, unspecified; Z99.2 Dependence on renal dialysis; M51.27 Other intervertebral disc displacement, lumbosacral region; I73.9 Peripheral vascular disease, unspecified
CPT/HCPCS: 36415; 71045; 80048; 80053; 80076; 80299; 82550; 82553; 82607; 82728; 82746; 82962; 83540; 83550; 83605; 83735; 83880; 84100; 84439; 84443; 84481; 84484; 85007; 85025; 86140; 87040; 87081; 93005; 94664; 99285; J1815; S5561

== ENCOUNTER 2018-11-06 22:30 | Inpatient (IN) | payer MEDICARE, MEDICAID ==
[~2018-11-06] VITALS: Ht 167.6 cm; Wt 93.0 kg
[2018-11-06 22:30] VITALS: BP 154/75
[~2018-11-06 22:30] MED LIST changes: +ACETAMINOPHEN500 M3 ORAL; +BISACODYL10 M1 RC; +CARVEDILOL25 MG ORAL; +COZAAR50 MG ORAL; +FERROUS SULFAT325 MG ORAL; +HALDOL5 MG ORAL; +HALOPERIDOL5 MG ORAL; +MOM30 ML ORAL; +PRAVACHOL20 MG ORAL; +PROCARDIA XL30 MG ORAL; +QUETIAPINE FUM300 MG ORAL; +RENVELA800 MG ORAL; +SEROQUEL100 MG ORAL
--- NOTE | 2018-11-06 22:44 | NUR ---
SPOKE WITH [place]EL FROM [facility], WILL SEND MEDICATION LIST VIA FAX.
--- NOTE | 2018-11-06 23:07 | Emergency Room Report ---
History of Present Illness General Chief Complaint: Generalized Weakness Source: Patient, Medical Record Present Illness HPI Disclaimer: Please note that this report is being documented using Se[employer] technology. This can lead to erroneous entry secondary to incorrect interpretation by the dictating instrument. HPI: 57-year-old female with a history of ESRD on hemodialysis MWF through right upper extremity graft, schizophrenia, bipolar disorder, diabetes, hypertension, hyperlipidemia, chronic anemia presents for evaluation of altered mental status and foot fracture. The patient cannot provide any significant history. She does know that she has [facility] but cannot tell me her age, month or why she is in the emergency department today. She was reportedly sent over for evaluation of a right foot injury with a reported fracture of the second proximal phalanx on the right foot as well as the base of the right great toe distal phalanx which are suspected to be pathologic. There is also suspicion of osteomyelitis in the second toe distal phalanx. Sent over for evaluation of altered mental status as well. She reportedly refused dialysis today. Last dialysis was then 3 days ago. Patient cannot recall the events of today PMH: Hypertension, hyperlipidemia, schizophrenia, diabetes, bipolar disorder, ESRD PSH: Dialysis access graft Allergies: None listed Social Hx: Unknown Allergies: Coded Allergies: No Known Allergies (Verified , 08/23/06) Nursing Documentation-PMH Past Medical History: No History, Except For Hx Cardiac Problems: Yes - HEART FAILURE, HYPERALDOSTERONISM, BRADYCARDIA, ACUTE ISCHEMIC HEART DISEAS Hx Hypertension: Yes - HYPERLIPIDEMIA, HYPOTHYROIDISM, ANEMIA, CARDIOMYOPATHY Hx COPD: Yes - PNA Hx Diabetes: Yes Hx Cancer: No Hx Gastrointestinal Problems: No - MORBID OBESITY Hx Dialysis: Yes - MWF/ ESRD Hx Neurological Problems: Yes - POLYNEUROPATHY, METABOLIC ENCEPHALOPATHY Hx Seizures: Yes Review of Systems All Other Systems: limited - Clinical condition Physical Exam Vital Signs Date Time Temp Pulse Resp B/P (MAP) Pulse Ox O2 Delivery O2 Flow Rate FiO2 11/06/18 22:24 98.6 68 18 154/75 (101) 92 Room Air General: Awake and alert, no acute distress, disheveled, unkempt HEENT: NC/AT. No hematomas, lacerations or abrasions on the face or scalp. EOMI. PERRLA, horizontal nystagmus. Dry mucous membranes Cardiovascular: RRR. S1 and S2 normal. No murmur appreciated, graft in the right upper extremity Resp: Normal work of breathing. No cough, wheezing or crackles appreciated Abdomen: Abdomen is soft, nondistended. Nontender Skin: Multiple wounds over the lower extremities including the left heel and what appears to be gangrenous changes over the right second toe MSK: Foreign body of the right second toe with overlying gangrenous changes Neuro: Awake, oriented to place and self but not time or situation. Moving all extremities. Procedures Critical Care Time Critical Care Time Total critical care time: Approximately 31 minutes Due to a high probability of clinically significant, life threatening deterioration, the patient required the highest level of preparedness to intervene emergently and I personally spent this critical care time directly and personally managing the patient. This critical care time included obtaining a history, examining the patient, pulse oximetry, ordering and reviewing studies , ordering treatments, evaluating response to treatment and updating management plan as needed, frequent reassessment and discussion with other providers as well as arranging for ultimate disposition. This critical to care time was performed to assess and manage the high probability of life-threatening deterioration that could result in multiorgan failure. This critical care time is separate from the separately billable procedures and treating other patients. Medical Decision Making Diagnostic Impression: Primary Impression: Hyperkalemia Additional Impressions: Osteomyelitis ESRD (end stage renal disease) Encephalopathy ER Course 57-year-old female sent from [place] for evaluation of altered mental status. Patient missed dialysis today and will require emergent labs to assess need for hemodialysis. We will also obtain x-rays of the right foot, inflammatory markers and start antibiotics. She will require admission. Laboratory Tests Test 11/06/18 23:35 11/06/18 23:42 White Blood Count 21.2 K/UL (4.8-10.8) H Red Blood Count 2.81 M/UL (4.20-5.40) L Hemoglobin 8.8 G/DL (12.0-16.0) L Hematocrit 26.1 % (37.0-47.0) L Mean Corpuscular Volume 93 FL (80-99) Mean Corpuscular Hemoglobin 31.3 PG (27.0-31.0) H Mean Corpuscular Hemoglobin Concent 33.8 G/DL (32.0-36.0) Red Cell Distribution Width 14.2 % (11.6-14.8) Platelet Count 251 K/UL (150-450) Mean Platelet Volume 6.3 FL (6.5-10.1) L Neutrophils (%) (Auto) % (45.0-75.0) Lymphocytes (%) (Auto) % (20.0-45.0) Monocytes (%) (Auto) % (1.0-10.0) Eosinophils (%) (Auto) % (0.0-3.0) Basophils (%) (Auto) % (0.0-2.0) Neutrophils % (Manual) Pending Lymphocytes % (Manual) Pending Platelet Estimate Pending Platelet Morphology Pending Erythrocyte Sedimentation Rate Pending Sodium Level 129 MMOL/L (136-145) L Potassium Level 6.1 MMOL/L (3.5-5.1) *H Chloride Level 92 MMOL/L (98-107) L Carbon Dioxide Level 24 MMOL/L (21-32) Anion Gap 13 mmol/L (5-15) Blood Urea Nitrogen 66 mg/dL (7-18) H Creatinine 7.7 MG/DL (0.55-1.30) H Estimate Glomerular Filtration Rate 5.4 mL/min (>60) Glucose Level 96 MG/DL (74-106) Calcium Level 9.7 MG/DL (8.5-10.1) Total Bilirubin 0.5 MG/DL (0.2-1.0) Aspartate Amino Transferase (AST) 28 U/L (15-37) Alanine Aminotransferase (ALT) 13 U/L (12-78) Alkaline Phosphatase 131 U/L (46-116) H Ammonia 13 umol/L (11-32) Total Creatine Kinase 429 U/L (26-308) H Creatine Kinase MB 13.3 NG/ML (0.0-3.6) H Creatine Kinase MB Relative Index 3.1 Troponin I 0.000 ng/mL (0.000-0.056) C-Reactive Protein, Quantitative 20.2 mg/dL (0.00-0.90) H Pro-B-Type Natriuretic Peptide > 18794 pg/mL (0-125) H Total Protein 7.2 G/DL (6.4-8.2) Albumin 2.4 G/DL (3.4-5.0) L Globulin 4.8 g/dL Albumin/Globulin Ratio 0.5 (1.0-2.7) L Acetone Level Pending Lactic Acid Level 0.80 mmol/L (0.4-2.0) EKG Diagnostic Results EKG Time: 22:46 Rate: normal Rhythm: NSR ST Segments: no acute changes Other Impression Sinus rhythm, normal axis, normal intervals, no acute ischemic changes, no hyperacute T waves Rhythm Strip Diag. Results Rhythm Strip Time: 22:46 Rate: 60s Rhythm: NSR, no PVC's, no ectopy Other X-Ray Diagnostic Results Other X-Ray Diagnostic Results : X-Ray ordered: Right foot # of Views/Limited Vs Complete: 2 View Indication: Pain EP Interpretation: Yes Interpretation: other - Fracture of the phalanx on the right second toe Impression: Other - Fracture, osseous breakdown Electronically Signed by: Electronically signed by Dr. Zach Rodriguez Reevaluation Time: 00:41 Last Vital Signs Date Time Temp Pulse Resp B/P (MAP) Pulse Ox O2 Delivery O2 Flow Rate FiO2 11/06/18 22:24 98.6 68 18 154/75 (101) 92 Room Air Reevaluation Impression Lab work shows a significantly elevated white count as well as ESR and CRP consistent with the osteomyelitis interpretation of the outside x-ray. Patient was treated with vancomycin and Zosyn. Potassium came back critically elevated at 6.1 and the patient was treated with calcium gluconate, insulin, dextrose and Kayexalate was ordered. She will be admitted for dialysis to the stepdown unit. Disposition: ADMITTED INPATIENT Condition: Serious Zach Rodriguez MD Nov 06, 2018 23:07
[2018-11-06] MEDS ORDERED: LONITEN2.5 MG PO (23:18)
[2018-11-06] MEDS ORDERED: DULCOLAX10 MG RC (23:18)
[2018-11-06] MEDS ORDERED: GLUCAGON W/DILUE1 MG IM (23:18)
[2018-11-06] MEDS ORDERED: KEPPRA1000 MG ORAL (23:18)
[2018-11-06 23:54] LABS: HEMATOCRIT 26.1 % (37.0-47.0); HEMOGLOBIN 8.8 G/DL (12.0-16.0); MEAN CORPUSCULAR VOLUME 93 FL (80-99); PLATELET COUNT 251 K/UL (150-450); RED BLOOD COUNT 2.81 M/UL (4.20-5.40); RED CELL DISTRIBUTION WIDTH 14.2 % (11.6-14.8); WHITE BLOOD COUNT 21.2 K/UL (4.8-10.8)
--- NOTE | 2018-11-07 | NUR ---
ED Nurse Note: Skin issues noted and pictures taken.
[2018-11-07 00:04] LABS: AMMONIA 13 umol/L (11-32)
[2018-11-07 00:15] LABS: ALANINE AMINOTRANSFERASE 13 U/L (12-78); ALBUMIN 2.4 G/DL (3.4-5.0); ALBUMIN/GLOBULIN RATIO 0.5 (1.0-2.7); ALKALINE PHOSPHATASE 131 U/L (46-116); ANION GAP 13 mmol/L (5-15); ASPARTATE AMINO TRANSFERASE 28 U/L (15-37); BILIRUBIN,TOTAL 0.5 MG/DL (0.2-1.0); BLOOD UREA NITROGEN 66 mg/dL (7-18); CALCIUM 9.7 MG/DL (8.5-10.1); CARBON DIOXIDE 24 MMOL/L (21-32); CHLORIDE 92 MMOL/L (98-107); CKMB 13.3 NG/ML (0.0-3.6); CREATINE KINASE 429 U/L (26-308); CREATININE 7.7 MG/DL (0.55-1.30); SODIUM 129 MMOL/L (136-145)
[2018-11-07 00:23] LABS: POTASSIUM 6.1 MMOL/L (3.5-5.1)
--- NOTE | 2018-11-07 00:26 | NUR ---
ED Nurse Note: ERMD NOTIFIED REGARDING PT'S LAB. K=6.1
[2018-11-07] MEDS ORDERED: Calcium Gluconate 1gm/10ml vial IVP ONE (00:30)
[2018-11-07] MEDS ORDERED: Sodium Polystyrene Sulfonate 15gm Powder ORAL ONE (00:30)
[2018-11-07] MEDS ORDERED: Insulin Human Regular 100units/ml 3ml IV ONE (00:30)
[2018-11-07] MEDS ORDERED: Piperacillin/Tazobactam 4.5 GM in NS 110 ML IVPB ONE (00:45)
[2018-11-07] MEDS ORDERED: Vancomycin 1.5 GM in NS 275 ML IVPB ONE (00:45)
--- NOTE | 2018-11-07 01:19 | NUR ---
ED Nurse Note: Report given to CHEPE Gee. Pt will be transfered to SDU as soon as ED medications are given.
--- NOTE | 2018-11-07 02:43 | NUR ---
ED Nurse Note: Waiting for MD call back before pt transfer.
--- NOTE | 2018-11-07 03:05 | NUR ---
NURSE NOTES: Patient arrived to unit via gurney with KIMBERLY castillo and RN. Patient placed into bed, bed bath given, wound pictures taken, equipment monitor phototypesetting placed and linens are changed. Report received from CHEPE Nguyen. Will contact MD for admission orders.
--- NOTE | 2018-11-07 03:10 | NUR ---
TRANSFER TO FLOOR: Patient transferred to as ordered, per Klaudia JACOBS. Report given to Marlen MO. Belongings and medications given to patient. Family and or S/O informed of transfer. Pt in stable condition.
--- NOTE | 2018-11-07 03:45 | NUR ---
NURSE NOTES: Left urgent message to Dr. Rudolph's exchange for admission orders, awaiting call back.
[2018-11-07 04:41] VITALS: BP 113/58
--- NOTE | 2018-11-07 05:41 | NUR ---
NURSE NOTES: Attempted to contact Dr. Pierson for admission orders. Awaiting reply.
--- NOTE | 2018-11-07 07:09 | NUR ---
HAND-OFF: Report given to CHEPE Guerra.
--- NOTE | 2018-11-07 07:22 | NUR ---
NURSE NOTES: Received report from CHEPE Gee. Patient is resting in bed, in stable condition. No s/sx of SOB, breathing is even and unlabored. Denies any presence of pain or discomfort at this time. Bed is in lowest position, brakes engaged. Call light is kept within easy reach. Awaiting call back from Dr. Rudolph for admission orders. Placed second call. Will continue to monitor patient.
[2018-11-07 07:49] LABS: HEMATOCRIT 23.4 % (37.0-47.0); HEMOGLOBIN 7.8 G/DL (12.0-16.0); MEAN CORPUSCULAR VOLUME 93 FL (80-99); PLATELET COUNT 229 K/UL (150-450); RED BLOOD COUNT 2.52 M/UL (4.20-5.40); RED CELL DISTRIBUTION WIDTH 14.2 % (11.6-14.8); WHITE BLOOD COUNT 15.3 K/UL (4.8-10.8)
[2018-11-07 08:00] VITALS: BP 141/61
--- NOTE | 2018-11-07 08:30 | NUR ---
NURSE NOTES: Per Dr. Crespo ordered vancomycin per pharmacy to dose and Zosyn 4.5 gm IV per pharmacy to adjust to renal function. Informed pharmacy of orders, spoke with honey Manley. Will continue to monitor patient.
--- NOTE | 2018-11-07 09:24 | History and Physical ---
History of Present Illness General Date patient seen: Nov 07, 2018 Reason for Hospitalization: right great toe infection Present Illness HPI 57 year-old female known to our team from multiple previous admissions with history of ESRD on HD MWF through right upper extremity graft, obesity, schizophrenia, bipolar disorder, diabetes, hypertension, hyperlipidemia, chronic anemia, non compliance with medical treatment and HD presents for evaluation of altered mental status and right foot fracture/infection. The patient cannot provide any significant history, uncooperative and most information obtained via chart review. She reportedly refused dialysis before she came to the ER. Last dialysis was then 3 days prior. No report of fever or chills. PMH: Hypertension, hyperlipidemia, schizophrenia, diabetes, bipolar disorder, ESRD, hx of hepatitis c, history of colon CA, pulmonary HTN, COPD ,seizure disorder PSH: Dialysis access graft Allergies: NKDA Family history: unable to obtain due to mental status Social History: Lives in retirement facility, smokes cigarettes Allergies: Coded Allergies: No Known Allergies (Verified , 08/23/06) Medication History Scheduled Bisacodyl (Dulcolax), 10 MG RC DAILY, (Reported) Calcium Acetate (Calcium Acetate), 667 MG PO THREE TIMES A DAY, (Reported) Carvedilol (Coreg), 12.5 MG ORAL EVERY 12 HOURS, (Reported) Carvedilol* (Carvedilol*), 25 MG ORAL EVERY 12 HOURS, (Reported) Clopidogrel Bisulfate* (Plavix*), 75 MG ORAL DAILY, (Reported) Ferrous Sulfate* (Ferrous Sulfate*), 325 MG ORAL DAILY, (Reported) Fluticasone/Vilanterol (Breo Ellipta 100-25 Mcg INH), 1 EACH IH BID, (Reported) Gabapentin (Neurontin), 300 MG ORAL BID, (Reported) Haloperidol (Haloperidol), 5 MG ORAL Q8HR Hydralazine Hcl* (Hydralazine Hcl*), 75 MG ORAL EVERY 6 HOURS, (Reported) Insulin Glargine (Lantus), 10 UNITS SUBQ BEDTIME, (Reported) Lamotrigine* (Lamictal*), 100 MG ORAL BID, (Reported) Levetiracetam (Levetiracetam), 1,000 MG ORAL TWICE A DAY, (Reported) Levetiracetam (Keppra), 1,000 MG ORAL BID, (Reported) Levothyroxine Sodium (Synthroid), 50 MCG ORAL DAILY, (Reported) Losartan Potassium* (Cozaar*), 50 MG ORAL BID Losartan Potassium* (Losartan Potassium*), 50 MG ORAL DAILY, (Reported) Minoxidil (Minoxidil), 2.5 MG PO DAILY, (Reported) Minoxidil* (Loniten*), 2.5 MG PO DAILY, (Reported) Nifedipine (Nifedipine*), 60 MG ORAL EVERY 12 HOURS, (Reported) Nifedipine Xl* (Procardia Xl*), 60 MG ORAL DAILY Polyethylene Glycol 3350* (Miralax*), 17 GM ORAL DAILY, (Reported) Pravastatin Sod* (Pravachol*), 40 MG ORAL BEDTIME Pravastatin Sod* (Pravachol*), 40 MG ORAL BEDTIME, (Reported) Quetiapine Fumarate (Quetiapine Fumarate), 300 MG ORAL QHS, (Reported) Quetiapine Fumarate* (Seroquel*), 300 MG ORAL QHS Sevelamer Carbonate (Renvela), 800 MG ORAL THREE TIMES A DAY Sevelamer Carbonate (Renvela), 1,600 MG ORAL THREE TIMES A DAY, (Reported) Sitagliptin* (Januvia*), 25 MG ORAL DAILY, (Reported) Vitamin B Cmplx/Vit C/Folic AC (Nephro-Denise Tablet), 1 TAB ORAL DAILY, (Reported ) Vitamin B Cmplx/Vit C/Folic AC (Nephro-Denise Tablet), 1 TAB ORAL DAILY, (Reported ) Scheduled PRN Acetaminophen* (Acetaminophen 325MG Tablet*), 650 MG ORAL Q6H PRN for Mild Pain/ Temp > 100.5, (Reported) Acetaminophen* (Acetaminophen Extra Strength*), 1,000 MG ORAL Q6H PRN for Moderate Pain (Pain Scale 4-6), (Reported) Bisacodyl (Bisacodyl), 10 MG RC DAILY PRN for Constipation, (Reported) Haloperidol (Haloperidol), 5 MG ORAL Q6HR PRN for Agitation, (Reported) Ipratropium Preston 0.5MG/2.5ML (Ipratropium Preston 0.5MG/2.5ML), 0.5 MG HHN Q6H PRN for Shortness of Breath, (Reported) Lactulose (Lactulose), 10 GM PO DAILY PRN for Constipation, (Reported) Magnesium Hydroxide (Milk of Magnesia), 30 ML ORAL DAILY PRN for Constipation, ( Reported) Miscellaneous Medications Glucagon (Glucagen), 1 MG IJ, (Reported) Discontinued Medications Amlodipine Besylate* (Amlodipine Besylate*), 10 MG ORAL BID, (Reported) Discontinued Reason: Therapy completed Atorvastatin Calcium* (Atorvastatin Calcium*), 40 MG ORAL BEDTIME, (Reported) Discontinued Reason: Therapy completed Bisacodyl (Dulcolax), 10 MG RC DAILY PRN for Constipation, (Reported) Discontinued Reason: Therapy completed Calcium Acetate (Calcium Acetate), 667 MG PO THREE TIMES A DAY, (Reported) Discontinued Reason: Therapy completed Cafvsaieq-Ecc-6* (Ppmtjesc-Koe-2*), 1 PATCH TDERMAL QWEEK Discontinued Reason: Therapy completed Lisinopril* (Lisinopril*), 20 MG ORAL DAILY, (Reported) Discontinued Reason: Therapy completed Magnesium Hydroxide* (Milk Of Magnesia*), 30 ML ORAL DAILY PRN for Constipation, (Reported) Discontinued Reason: Therapy completed Polyethylene Glycol 3350* (Miralax*), 17 GM ORAL DAILY, (Reported) Discontinued Reason: Therapy completed Patient History Healthcare decision maker Mir Zuluaga Resuscitation status Full Code Advanced Directive on File Review of Systems ROS Narrative unable to obtain due to lack of cooperation and mental status Physical Exam Physical Exam Narrative General: Awake and alert, disheveled, obese HEENT: PERRL, no jvd, dry mm Cardiovascular: RRR. S1S2. No m/r/g, graft in the right upper extremity Lung: CTA bl, no crackles or wheezing Abdomen: Abdomen is soft, nondistended. Nontender, obese Musculoskeletal: moves all extremities, normal tone Neuro: Awake, oriented to place and self but not time. grossly normal Skin: Multiple wounds over the lower and upper extremities including the left heel, multiple toes, right 2nd toe gangrene, right great toe wound Last 24 Hour Vital Signs Date Time Temp Pulse Resp B/P (MAP) Pulse Ox O2 Delivery O2 Flow Rate FiO2 11/07/18 04:41 97.9 64 16 113/58 (76) 94 11/07/18 04:00 Room Air 11/07/18 03:22 64 11/07/18 03:10 98.8 89 20 138/60 Room Air 11/07/18 03:05 Room Air 11/06/18 22:30 97.6 70 18 154/75 92 Room Air 11/06/18 22:30 68 18 Room Air 11/06/18 22:24 98.6 68 18 154/75 (101) 92 Room Air Intake and Output 11/06/18 11/07/18 19:00 07:00 Intake Total 261.25 ml Balance 261.25 ml Intake Oral 0 ml IV Total 261.25 ml # Bowel Movements 4 Laboratory Tests Test 11/06/18 23:35 11/06/18 23:42 11/07/18 07:20 White Blood Count 21.2 K/UL (4.8-10.8) H 15.3 K/UL (4.8-10.8) H Red Blood Count 2.81 M/UL (4.20-5.40) L 2.52 M/UL (4.20-5.40) L Hemoglobin 8.8 G/DL (12.0-16.0) L 7.8 G/DL (12.0-16.0) L Hematocrit 26.1 % (37.0-47.0) L 23.4 % (37.0-47.0) L Mean Corpuscular Volume 93 FL (80-99) 93 FL (80-99) Mean Corpuscular Hemoglobin 31.3 PG (27.0-31.0) H 31.1 PG (27.0-31.0) H Mean Corpuscular Hemoglobin Concent 33.8 G/DL (32.0-36.0) 33.5 G/DL (32.0-36.0) Red Cell Distribution Width 14.2 % (11.6-14.8) 14.2 % (11.6-14.8) Platelet Count 251 K/UL (150-450) 229 K/UL (150-450) Mean Platelet Volume 6.3 FL (6.5-10.1) L 6.4 FL (6.5-10.1) L Neutrophils (%) (Auto) % (45.0-75.0) % (45.0-75.0) Lymphocytes (%) (Auto) % (20.0-45.0) % (20.0-45.0) Monocytes (%) (Auto) % (1.0-10.0) % (1.0-10.0) Eosinophils (%) (Auto) % (0.0-3.0) % (0.0-3.0) Basophils (%) (Auto) % (0.0-2.0) % (0.0-2.0) Differential Total Cells Counted 100 100 Neutrophils % (Manual) 87 % (45-75) H 93 % (45-75) H Lymphocytes % (Manual) 7 % (20-45) L 3 % (20-45) L Monocytes % (Manual) 6 % (1-10) 4 % (1-10) Eosinophils % (Manual) 0 % (0-3) 0 % (0-3) Basophils % (Manual) 0 % (0-2) 0 % (0-2) Band Neutrophils 0 % (0-8) 0 % (0-8) Platelet Estimate Adequate Adequate Platelet Morphology Normal Normal Erythrocyte Sedimentation Rate 126 MM/HR (0-30) H Sodium Level 129 MMOL/L (136-145) L Pending Potassium Level 6.1 MMOL/L (3.5-5.1) *H Pending Chloride Level 92 MMOL/L (98-107) L Pending Carbon Dioxide Level 24 MMOL/L (21-32) Pending Anion Gap 13 mmol/L (5-15) Blood Urea Nitrogen 66 mg/dL (7-18) H Pending Creatinine 7.7 MG/DL (0.55-1.30) H Pending Estimat Glomerular Filtration Rate 5.4 mL/min (>60) Pending Glucose Level 96 MG/DL (74-106) Pending Calcium Level 9.7 MG/DL (8.5-10.1) Pending Total Bilirubin 0.5 MG/DL (0.2-1.0) Pending Aspartate Amino Transf (AST/SGOT) 28 U/L (15-37) Pending Alanine Aminotransferase (ALT/SGPT) 13 U/L (12-78) Pending Alkaline Phosphatase 131 U/L (46-116) H Pending Ammonia 13 umol/L (11-32) Total Creatine Kinase 429 U/L (26-308) H Creatine Kinase MB 13.3 NG/ML (0.0-3.6) H Creatine Kinase MB Relative Index 3.1 Troponin I 0.000 ng/mL (0.000-0.056) C-Reactive Protein, Quantitative 20.2 mg/dL (0.00-0.90) H Pro-B-Type Natriuretic Peptide > 63545 pg/mL (0-125) H Total Protein 7.2 G/DL (6.4-8.2) Pending Albumin 2.4 G/DL (3.4-5.0) L Pending Globulin 4.8 g/dL Pending Albumin/Globulin Ratio 0.5 (1.0-2.7) L Acetone Level Negative (NEGATIVE) Lactic Acid Level 0.80 mmol/L (0.4-2.0) Anisocytosis 1+ Height (Feet): 5 Height (Inches): 6.00 Weight (Pounds): 204 Objective Narrative XR right foot: R great toe suspected osteomyelitis Assessment/Plan Status: other - r/o sepsis Assessment/Plan: 57 year old female with ESRD, mental illness including schizophrenia and bipolar disorder, peripheral vascular disease and history of non compliance with treatment sent to the hospital from [facility] for AMS, refusing HD and right foot great toe wound/cellulitis and right 2nd toe gangrene. 1. r/o sepsis. Has leukocytosis and AMS (which could be due to infection (R foot 2nd toe gangrene/ischemia, R foot great toe wound/Osteomyelitis) vs. missed HD) essentially acute toxic metabolic encephalopathy. -Zonyn and vancomycin -ID, surgery and podiatry evaluation requested. May need an amputation -follow up cultures and labs -Continue Plavix 2. ESRD -Urgent HD -Nephrology consult with Dr. Solis -Monitor electrolytes -Phosphate binders 3. Mental health disorder- Schizophrenia and bipolar. -continue -Dr. Beckett from psychiatry to see -Continue Seroquel 300mg QHS 4. HTN Continue Losartan, carvedilol, hydralazine, Nifedipine 5. DM- controlled. HbA1c 4.5. Continue insulin via sliding scale as needed 6. Seizure disorder. Continue keppra 7. COPD. without exacerbation. Continue Breo 8. Hypothyroidism. Continue Levothyroxine. Increase dose from 50 to 75. TSH7.5 on 11/01 vte ppx: heparin subq GI ppx, not indicated Code: full code I spent 70 minutes on this encounter. > 50% on care coordination and counselling. I spent 15 minutes reviewing [facility]dc chart and old records Time of this note may not reflect time of encounter Diego Ramirez M.D. Nov 07, 2018 09:23
[2018-11-07 09:42] LABS: ALANINE AMINOTRANSFERASE 14 U/L (12-78); ALBUMIN/GLOBULIN RATIO 0.5 (1.0-2.7); ALKALINE PHOSPHATASE 107 U/L (46-116); ANION GAP 12 mmol/L (5-15); ASPARTATE AMINO TRANSFERASE 21 U/L (15-37); BILIRUBIN,TOTAL 0.5 MG/DL (0.2-1.0); BLOOD UREA NITROGEN 70 mg/dL (7-18); CALCIUM 9.3 MG/DL (8.5-10.1); CARBON DIOXIDE 25 MMOL/L (21-32); CHLORIDE 94 MMOL/L (98-107); CREATININE 7.9 MG/DL (0.55-1.30); POTASSIUM 5.3 MMOL/L (3.5-5.1); SODIUM 131 MMOL/L (136-145)
--- NOTE | 2018-11-07 10:48 | NUR ---
*-* INSURANCE *-* ALL AVAILABLE CLINICALS AND REVIEWS HAVE BEEN FAXED TO: [employer] FAX ALL CLINICALS TO: [phone]
--- NOTE | 2018-11-07 11:00 | NUR ---
NURSE NOTES: Dr. Ramirez at nurse station, made MD aware of patient's Hgb level of 7.[address] Ramirez acknowledged, no new orders given at this time. Will continue to monitor patient.
--- NOTE | 2018-11-07 11:14 | Diagnostic Imaging Report ---
Indication: Foot Pain Comparison: None Findings: 3 views of the right foot were obtained. There is no acute fracture identified. The tuft of the first toe appears abnormal and partially truncated. There may be osteomyelitis present which is certainly not excluded. Hammertoes are present involving the second through fifth toes. There is no fracture of the fifth metatarsal. Bones are osteopenic. Soft tissue swelling is present. The lateral view of the foot is suboptimal. IMPRESSION: Position of the distal phalangeal tuft of the great toe. This could be due to osteomyelitis, chronic versus acute. Please correlate clinically. Hammertoes second through fifth rays. Old fracture fifth metatarsal Soft tissue swelling nonspecific.
[2018-11-07] MEDS: NovoLOG Insulin Flexpen SUBQ SCH ×3 (11:30→21:31)
[2018-11-07 12:00] VITALS: BP 131/58
--- NOTE | 2018-11-07 12:06 | NUR ---
RD ASSESSMENT & RECOMMENDATIONS SEE CARE ACTIVITY FOR COMPLETE ASSESSMENT DAILY ESTIMATED NEEDS: Needs based on ESRD on HD, obese, wound 67.8kg abw 25-30 kcals/kg 3107-1260 total kcals 1.25-1.8 g protein/kg 85-122 g total protein Fluid per MD, on HD NUTRITION DIAGNOSIS: * Increased protein needs r/t renal dysfunction as evidenced by ESRD dx on HD. CURRENT DIET: RENAL, mech soft ground PO DIET RECOMMENDATIONS: RENAL/ texture per OWNER OPERATOR ADDITIONAL RECOMMENDATIONS: * Calibrated bedscale wt for accurate CBW, obtain dry wt post HD * Monitor lytes and renal fxn * Monitor BGs closely for hypoglycemia * Monitor PO intake closely / OWNER OPERATOR eval for appropriate texture * Rec wound eval -multiple wound photos add Woody 1pkt BID, Nephrovite x 1 .
--- NOTE | 2018-11-07 12:14 | Diagnostic Imaging Report ---
Indication: Dyspnea Comparison: 10/29/2018 A single view chest radiograph was obtained. Findings: Mild pulmonary vascular congestion is present with cardiomegaly. Bones are slightly osteopenic. IMPRESSION: Pulmonary vascular congestion
--- NOTE | 2018-11-07 12:27 | NUR ---
RADIOLOGY DEPT., CHEST X-RAY DONE.-P.DYE
[2018-11-07] MEDS: Renvela 800mg Pkt ORAL SCH ×2 (12:38→17:33)
[2018-11-07] MEDS: Calcium Acetate 667mg Tab ORAL SCH ×2 (12:38→17:33)
[2018-11-07] MEDS: Zosyn 2.25 gm in D5W 55ml IV SCH ×2 (12:43→22:10)
[2018-11-07] MEDS: HydrALAZINE 25mg tab ORAL SCH ×2 (13:06→21:37)
[2018-11-07] MEDS ORDERED: Piperacillin/Tazobactam 4.5 GM in NS 110 ML IVPB SCH (14:00)
--- NOTE | 2018-11-07 14:00 | Infectious Diseases Prog Note ---
Assessment/Plan Assessment/Plan Full consult to follow: A) 1) ams, leukocytosis, ? sepsis, right foot 2nd toe gangrene/ischemia, right foot great toe wound, ? osteomyelitis 2) esrd, hd 3) pmh noted 4) allergies - nkda P) 1) zosyn and vancomycin 2) podiatry evaluation 3) f/u labs 4) f/u on cultures and chest x-ray 5) thank you Subjective Allergies: Coded Allergies: No Known Allergies (Verified , 08/23/06) Objective Vital Signs Last 24 Hour Vital Signs Date Time Temp Pulse Resp B/P (MAP) Pulse Ox O2 Delivery O2 Flow Rate FiO2 11/07/18 12:00 97.5 63 16 131/58 (82) 95 11/07/18 12:00 Room Air 11/07/18 11:33 65 11/07/18 08:00 63 11/07/18 08:00 Room Air 11/07/18 08:00 98.0 64 16 141/61 (87) 98 11/07/18 04:41 97.9 64 16 113/58 (76) 94 11/07/18 04:00 Room Air 11/07/18 03:22 64 11/07/18 03:10 98.8 89 20 138/60 Room Air 11/07/18 03:05 Room Air 11/06/18 22:30 97.6 70 18 154/75 92 Room Air 11/06/18 22:30 68 18 Room Air 11/06/18 22:24 98.6 68 18 154/75 (101) 92 Room Air Height (Feet): 5 Height (Inches): 6.00 Weight (Pounds): 204 Laboratory Tests Test 11/06/18 23:35 11/06/18 23:42 11/07/18 07:20 White Blood Count 21.2 K/UL (4.8-10.8) H 15.3 K/UL (4.8-10.8) H Red Blood Count 2.81 M/UL (4.20-5.40) L 2.52 M/UL (4.20-5.40) L Hemoglobin 8.8 G/DL (12.0-16.0) L 7.8 G/DL (12.0-16.0) L Hematocrit 26.1 % (37.0-47.0) L 23.4 % (37.0-47.0) L Mean Corpuscular Volume 93 FL (80-99) 93 FL (80-99) Mean Corpuscular Hemoglobin 31.3 PG (27.0-31.0) H 31.1 PG (27.0-31.0) H Mean Corpuscular Hemoglobin Concent 33.8 G/DL (32.0-36.0) 33.5 G/DL (32.0-36.0) Red Cell Distribution Width 14.2 % (11.6-14.8) 14.2 % (11.6-14.8) Platelet Count 251 K/UL (150-450) 229 K/UL (150-450) Mean Platelet Volume 6.3 FL (6.5-10.1) L 6.4 FL (6.5-10.1) L Neutrophils (%) (Auto) % (45.0-75.0) % (45.0-75.0) Lymphocytes (%) (Auto) % (20.0-45.0) % (20.0-45.0) Monocytes (%) (Auto) % (1.0-10.0) % (1.0-10.0) Eosinophils (%) (Auto) % (0.0-3.0) % (0.0-3.0) Basophils (%) (Auto) % (0.0-2.0) % (0.0-2.0) Differential Total Cells Counted 100 100 Neutrophils % (Manual) 87 % (45-75) H 93 % (45-75) H Lymphocytes % (Manual) 7 % (20-45) L 3 % (20-45) L Monocytes % (Manual) 6 % (1-10) 4 % (1-10) Eosinophils % (Manual) 0 % (0-3) 0 % (0-3) Basophils % (Manual) 0 % (0-2) 0 % (0-2) Band Neutrophils 0 % (0-8) 0 % (0-8) Platelet Estimate Adequate Adequate Platelet Morphology Normal Normal Erythrocyte Sedimentation Rate 126 MM/HR (0-30) H Sodium Level 129 MMOL/L (136-145) L 131 MMOL/L (136-145) L Potassium Level 6.1 MMOL/L (3.5-5.1) *H 5.3 MMOL/L (3.5-5.1) H Chloride Level 92 MMOL/L (98-107) L 94 MMOL/L (98-107) L Carbon Dioxide Level 24 MMOL/L (21-32) 25 MMOL/L (21-32) Anion Gap 13 mmol/L (5-15) 12 mmol/L (5-15) Blood Urea Nitrogen 66 mg/dL (7-18) H 70 mg/dL (7-18) H Creatinine 7.7 MG/DL (0.55-1.30) H 7.9 MG/DL (0.55-1.30) H Estimat Glomerular Filtration Rate 5.4 mL/min (>60) 5.3 mL/min (>60) Glucose Level 96 MG/DL (74-106) 81 MG/DL (74-106) Calcium Level 9.7 MG/DL (8.5-10.1) 9.3 MG/DL (8.5-10.1) Total Bilirubin 0.5 MG/DL (0.2-1.0) 0.5 MG/DL (0.2-1.0) Aspartate Amino Transf (AST/SGOT) 28 U/L (15-37) 21 U/L (15-37) Alanine Aminotransferase (ALT/SGPT) 13 U/L (12-78) 14 U/L (12-78) Alkaline Phosphatase 131 U/L (46-116) H 107 U/L (46-116) Ammonia 13 umol/L (11-32) Total Creatine Kinase 429 U/L (26-308) H Creatine Kinase MB 13.3 NG/ML (0.0-3.6) H Creatine Kinase MB Relative Index 3.1 Troponin I 0.000 ng/mL (0.000-0.056) C-Reactive Protein, Quantitative 20.2 mg/dL (0.00-0.90) H Pro-B-Type Natriuretic Peptide > 48990 pg/mL (0-125) H Total Protein 7.2 G/DL (6.4-8.2) 6.0 G/DL (6.4-8.2) L Albumin 2.4 G/DL (3.4-5.0) L 2.0 G/DL (3.4-5.0) L Globulin 4.8 g/dL 4.0 g/dL Albumin/Globulin Ratio 0.5 (1.0-2.7) L 0.5 (1.0-2.7) L Acetone Level Negative (NEGATIVE) Lactic Acid Level 0.80 mmol/L (0.4-2.0) Anisocytosis 1+ Current Medications Medications (Trade) Dose Ordered Sig/Gabriele Route PRN Reason Start Time Stop Time Status Last Admin Dose Admin Acetaminophen (Tylenol) 650 mg Q6H PRN ORAL Mild Pain/Temp > 100.5 11/07/18 10:15 12/07/18 10:14 Calcium Acetate (Phoslo) 667 mg THREE TIMES A DAY ORAL 11/07/18 13:00 12/07/18 12:59 Carvedilol (Coreg) 12.5 mg EVERY 12 HOURS ORAL 11/07/18 21:00 12/07/18 20:59 Clopidogrel Bisulfate (Plavix) 75 mg DAILY ORAL 11/08/18 09:00 12/08/18 08:59 Dextrose (Dextrose 50%) 25 ml Q30M PRN IV Hypoglycemia 11/07/18 10:15 12/07/18 10:14 Dextrose (Dextrose 50%) 50 ml Q30M PRN IV Hypoglycemia 11/07/18 10:15 12/07/18 10:14 Fluticasone/ Vilanterol (Breo Ellipta 100/25) 1 puff DAILY INH 11/08/18 09:00 12/08/18 08:59 Heparin Sodium (Porcine) (Heparin 5000 units/ml) 5,000 units EVERY 12 HOURS SUBQ 11/07/18 21:00 12/07/18 20:59 Hydralazine HCl (Apresoline) 25 mg Q8HR ORAL 11/07/18 14:00 12/07/18 13:59 Insulin Aspart (NovoLOG) BEFORE MEALS AND HS SUBQ 11/07/18 11:30 12/07/18 11:29 Levetiracetam (Keppra) 1,000 mg TWICE A DAY ORAL 11/07/18 18:00 12/07/18 17:59 Levothyroxine Sodium (Synthroid) 50 mcg DAILY@0630 ORAL 11/08/18 06:30 12/08/18 06:29 Losartan Potassium (Cozaar) 50 mg DAILY ORAL 11/08/18 09:00 12/08/18 08:59 Nifedipine (Procardia XL) 60 mg DAILY ORAL 11/08/18 09:00 12/08/18 08:59 Piperacillin Sod/ Tazobactam Sod 2.25 gm/Dextrose 55 ml @ 110 mls/hr Q8HR IV 11/07/18 12:00 11/12/18 11:59 11/07/18 12:43 Pravastatin Sodium (Pravachol) 40 mg BEDTIME ORAL 11/07/18 21:00 12/07/18 20:59 Quetiapine Fumarate (SEROquel) 300 mg QHS ORAL 11/07/18 21:00 12/07/18 20:59 Sevelamer Carbonate (Renvela) 800 mg THREE TIMES A DAY ORAL 11/07/18 13:00 12/07/18 12:59 Vancomycin HCl (Vanco rx to dose) 1 ea DAILY PRN MISC Per rx protocol 11/07/18 10:30 12/07/18 10:29 Nehal Nolasco MD Nov 07, 2018 14:00
--- NOTE | 2018-11-07 14:45 | NUR ---
NURSE NOTES: Patient is receiving hemodialysis at bedside. Will continue to monitor patient.
--- NOTE | 2018-11-07 14:47 | Consultation ---
Consult Note Consult Note Patient admitted for foot infection. She also again missed / refused her HD session as out patient presenting with high K Very well known to me from her multiple previous admissions patient known for being uncooporative and noncompliance with her OP HD examined data reviewed HD ordered Past Medical History: DM, HTN, COPD, seizures, renal disease, dialysis Past Medical History: No History, Except For Hx Cardiac Problems: Yes Hx Hypertension: Yes Hx COPD: Yes Hx Diabetes: Yes Hx Dialysis: Yes - [id number] Hx Neurological Problems: Yes Hx Seizures: Yes . Assessment/Plan Admitted for foot infection and missing HD and hyperkalemia (1) ESRD (end stage renal disease) on dialysis (2) Altered level of consciousness / Encephalopathy metabolic (3) Schizoaffective disorder, bipolar type (4) h/o Hypothyroidism (5) Anemia in chronic renal disease Also: - Cellulitis both LE - End-stage renal disease, on hemodialysis. fistula right arm - HTN / Pulmonary HTN - Diabetes type 2. Others - Morbid obesity. - H/O Colon Cancer - H/O Hep C - H/O Depression and Bipolar disease - Psych disease uncoaporative --Bilateral leg numbness --diabetic neuropathy --L5-S1 disc protrusion HD today h/o refusing care and tests periodically skin care / Antibiotics / ID eval noted per consultants edgar Sz Eamon Deal MD Nov 07, 2018 14:47
--- NOTE | 2018-11-07 15:00 | NUR ---
NURSE NOTES: Wound care nurse informed this nurse that per Dr. Wise will call a medical case manager regarding patient's feet. Noted. Will continue to monitor patient.
[2018-11-07 16:00] VITALS: BP 138/62
--- NOTE | 2018-11-07 18:39 | Consultation ---
History of Present Illness General Date patient seen: Nov 07, 2018 Reason for Hospitalization: Generalized Weakness Present Illness HPI 57F well known to me from prior admission who is a nursing facility patient with multiple medical comorbidites and psych history presented with worsening foot infection and labs. leukocytosis, renal insufficiency, requiring HD. surgery called to evaluate and assist with care. patient seen, chart reviewed, patient examined. Allergies: Coded Allergies: No Known Allergies (Verified , 08/23/06) Medication History Scheduled Bisacodyl (Dulcolax), 10 MG RC DAILY, (Reported) Calcium Acetate (Calcium Acetate), 667 MG PO THREE TIMES A DAY, (Reported) Carvedilol (Coreg), 12.5 MG ORAL EVERY 12 HOURS, (Reported) Carvedilol* (Carvedilol*), 25 MG ORAL EVERY 12 HOURS, (Reported) Clopidogrel Bisulfate* (Plavix*), 75 MG ORAL DAILY, (Reported) Ferrous Sulfate* (Ferrous Sulfate*), 325 MG ORAL DAILY, (Reported) Fluticasone/Vilanterol (Breo Ellipta 100-25 Mcg INH), 1 EACH IH BID, (Reported) Gabapentin (Neurontin), 300 MG ORAL BID, (Reported) Haloperidol (Haloperidol), 5 MG ORAL Q8HR Hydralazine Hcl* (Hydralazine Hcl*), 75 MG ORAL EVERY 6 HOURS, (Reported) Insulin Glargine (Lantus), 10 UNITS SUBQ BEDTIME, (Reported) Lamotrigine* (Lamictal*), 100 MG ORAL BID, (Reported) Levetiracetam (Levetiracetam), 1,000 MG ORAL TWICE A DAY, (Reported) Levetiracetam (Keppra), 1,000 MG ORAL BID, (Reported) Levothyroxine Sodium (Synthroid), 50 MCG ORAL DAILY, (Reported) Losartan Potassium* (Cozaar*), 50 MG ORAL BID Losartan Potassium* (Losartan Potassium*), 50 MG ORAL DAILY, (Reported) Minoxidil (Minoxidil), 2.5 MG PO DAILY, (Reported) Minoxidil* (Loniten*), 2.5 MG PO DAILY, (Reported) Nifedipine (Nifedipine*), 60 MG ORAL EVERY 12 HOURS, (Reported) Nifedipine Xl* (Procardia Xl*), 60 MG ORAL DAILY Polyethylene Glycol 3350* (Miralax*), 17 GM ORAL DAILY, (Reported) Pravastatin Sod* (Pravachol*), 40 MG ORAL BEDTIME Pravastatin Sod* (Pravachol*), 40 MG ORAL BEDTIME, (Reported) Quetiapine Fumarate (Quetiapine Fumarate), 300 MG ORAL QHS, (Reported) Quetiapine Fumarate* (Seroquel*), 300 MG ORAL QHS Sevelamer Carbonate (Renvela), 800 MG ORAL THREE TIMES A DAY Sevelamer Carbonate (Renvela), 1,600 MG ORAL THREE TIMES A DAY, (Reported) Sitagliptin* (Januvia*), 25 MG ORAL DAILY, (Reported) Vitamin B Cmplx/Vit C/Folic AC (Nephro-Denise Tablet), 1 TAB ORAL DAILY, (Reported ) Vitamin B Cmplx/Vit C/Folic AC (Nephro-Denise Tablet), 1 TAB ORAL DAILY, (Reported ) Scheduled PRN Acetaminophen* (Acetaminophen 325MG Tablet*), 650 MG ORAL Q6H PRN for Mild Pain/ Temp > 100.5, (Reported) Acetaminophen* (Acetaminophen Extra Strength*), 1,000 MG ORAL Q6H PRN for Moderate Pain (Pain Scale 4-6), (Reported) Bisacodyl (Bisacodyl), 10 MG RC DAILY PRN for Constipation, (Reported) Haloperidol (Haloperidol), 5 MG ORAL Q6HR PRN for Agitation, (Reported) Ipratropium [place] 0.5MG/2.5ML (Ipratropium [place] 0.5MG/2.5ML), 0.5 MG HHN Q6H PRN for Shortness of Breath, (Reported) Lactulose (Lactulose), 10 GM PO DAILY PRN for Constipation, (Reported) Magnesium Hydroxide (Milk of Magnesia), 30 ML ORAL DAILY PRN for Constipation, ( Reported) Miscellaneous Medications Glucagon (Glucagen), 1 MG IJ, (Reported) Discontinued Medications Amlodipine Besylate* (Amlodipine Besylate*), 10 MG ORAL BID, (Reported) Discontinued Reason: Therapy completed Atorvastatin Calcium* (Atorvastatin Calcium*), 40 MG ORAL BEDTIME, (Reported) Discontinued Reason: Therapy completed Bisacodyl (Dulcolax), 10 MG RC DAILY PRN for Constipation, (Reported) Discontinued Reason: Therapy completed Calcium Acetate (Calcium Acetate), 667 MG PO THREE TIMES A DAY, (Reported) Discontinued Reason: Therapy completed Mewkyxyzp-Btt-9* (Zptsubfw-Cbr-4*), 1 PATCH TDERMAL QWEEK Discontinued Reason: Therapy completed Lisinopril* (Lisinopril*), 20 MG ORAL DAILY, (Reported) Discontinued Reason: Therapy completed Magnesium Hydroxide* (Milk Of Magnesia*), 30 ML ORAL DAILY PRN for Constipation, (Reported) Discontinued Reason: Therapy completed Polyethylene Glycol 3350* (Miralax*), 17 GM ORAL DAILY, (Reported) Discontinued Reason: Therapy completed Patient History Limited by: medical condition History Provided By: Medical Record, PMD Healthcare decision maker Mir Zuluaga Resuscitation status Full Code Advanced Directive on File Past Medical/Surgical History Past Medical/Surgical History: (1) Hyperkalemia (2) Encephalopathy (3) ESRD (end stage renal disease) (4) Osteomyelitis (5) CHF (congestive heart failure) (6) Bradycardia (7) Diabetes mellitus, type II (8) Hypothyroidism (9) Costochondritis (10) GERD (gastroesophageal reflux disease) (11) HTN (hypertension) (12) Anemia in chronic renal disease (13) Cellulitis of arm, right (14) Clotted renal dialysis arteriovenous graft (15) ESRD (end stage renal disease) on dialysis (16) Non compliance with medical treatment (17) Obesity (BMI 30-39.9) (18) Seizure disorder (19) Hepatitis-C (20) Non-compliance with renal dialysis (21) Pulmonary edema (22) Pneumonia (23) History of colon cancer (24) Schizoaffective disorder, bipolar type (25) Lower extremity cellulitis (26) MDD (major depressive disorder), recurrent episode, moderate (27) Symptomatic anemia (28) Foot ulcer due to secondary DM (29) Diabetes mellitus type 2 with neurological manifestations (30) Acute metabolic encephalopathy (31) Altered level of consciousness Review of Systems Review of Symptoms General ROS: no weight loss or fever Psychological ROS: no depression or mood changes, no memory loss Ophthalmic ROS: no visual changes or eye irritation ENT ROS: no nasal congestion, hearing loss, dizziness Allergy and Immunology ROS: no allergic symptoms or urticaria Hematological and Lymphatic ROS: no swollen glands, unusual bleeding or bruising Endocrine ROS: no polyuria, polydipsia, weight changes, temperature intolerance Respiratory ROS: no cough, shortness of breath, or wheezing Cardiovascular ROS: no chest pain or dyspnea on exertion Gastrointestinal ROS: denies abdominal pain, no bright red blood in stool. Musculoskeletal ROS: no myalgias or arthralgias Neurological ROS: no TIA or stroke symptoms Dermatological ROS: no new or changing skin lesions, rashes or pruritis Physical Exam Physical Exam General appearance: alert, cooperative, no distress, appears stated age Head: Normocephalic, without obvious abnormality, atraumatic Eyes: conjunctivae/corneas clear. PERRL, EOM's intact. Fundi benign Throat: Lips, mucosa, and tongue normal. Teeth and gums normal Neck: supple, symmetrical, trachea midline, no adenopathy, thyroid: not enlarged, symmetric, no tenderness/mass/nodules, no carotid bruit and no JVD Lungs: clear to auscultation bilaterally Heart: regular rate and rhythm, S1, S2 normal, no murmur, click, rub or gallop Abdomen: soft, non-tender. Bowel sounds normal. No masses, no organomegaly Extremities: extremities traumatic, ++ cyanosis or edema Pulses: 2+ and symmetric Skin: Skin color, texture, turgor normal. No rashes or lesions Neurologic: Grossly normal Last 24 Hour Vital Signs Date Time Temp Pulse Resp B/P (MAP) Pulse Ox O2 Delivery O2 Flow Rate FiO2 11/07/18 16:00 69 11/07/18 16:00 Room Air 11/07/18 16:00 98.0 66 16 138/62 (87) 98 11/07/18 12:00 97.5 63 16 131/58 (82) 95 11/07/18 12:00 Room Air 11/07/18 11:33 65 11/07/18 08:00 63 11/07/18 08:00 Room Air 11/07/18 08:00 98.0 64 16 141/61 (87) 98 11/07/18 04:41 97.9 64 16 113/58 (76) 94 11/07/18 04:00 Room Air 11/07/18 03:22 64 11/07/18 03:10 98.8 89 20 138/60 Room Air 11/07/18 03:05 Room Air 11/06/18 22:30 97.6 70 18 154/75 92 Room Air 11/06/18 22:30 68 18 Room Air 11/06/18 22:24 98.6 68 18 154/75 (101) 92 Room Air Intake and Output 11/06/18 11/07/18 19:00 07:00 Intake Total 261.25 ml Balance 261.25 ml Intake Oral 0 ml IV Total 261.25 ml # Bowel Movements 4 Laboratory Tests Test 11/06/18 23:35 11/06/18 23:42 11/07/18 07:20 White Blood Count 21.2 K/UL (4.8-10.8) H 15.3 K/UL (4.8-10.8) H Red Blood Count 2.81 M/UL (4.20-5.40) L 2.52 M/UL (4.20-5.40) L Hemoglobin 8.8 G/DL (12.0-16.0) L 7.8 G/DL (12.0-16.0) L Hematocrit 26.1 % (37.0-47.0) L 23.4 % (37.0-47.0) L Mean Corpuscular Volume 93 FL (80-99) 93 FL (80-99) Mean Corpuscular Hemoglobin 31.3 PG (27.0-31.0) H 31.1 PG (27.0-31.0) H Mean Corpuscular Hemoglobin Concent 33.8 G/DL (32.0-36.0) 33.5 G/DL (32.0-36.0) Red Cell Distribution Width 14.2 % (11.6-14.8) 14.2 % (11.6-14.8) Platelet Count 251 K/UL (150-450) 229 K/UL (150-450) Mean Platelet Volume 6.3 FL (6.5-10.1) L 6.4 FL (6.5-10.1) L Neutrophils (%) (Auto) % (45.0-75.0) % (45.0-75.0) Lymphocytes (%) (Auto) % (20.0-45.0) % (20.0-45.0) Monocytes (%) (Auto) % (1.0-10.0) % (1.0-10.0) Eosinophils (%) (Auto) % (0.0-3.0) % (0.0-3.0) Basophils (%) (Auto) % (0.0-2.0) % (0.0-2.0) Differential Total Cells Counted 100 100 Neutrophils % (Manual) 87 % (45-75) H 93 % (45-75) H Lymphocytes % (Manual) 7 % (20-45) L 3 % (20-45) L Monocytes % (Manual) 6 % (1-10) 4 % (1-10) Eosinophils % (Manual) 0 % (0-3) 0 % (0-3) Basophils % (Manual) 0 % (0-2) 0 % (0-2) Band Neutrophils 0 % (0-8) 0 % (0-8) Platelet Estimate Adequate Adequate Platelet Morphology Normal Normal Erythrocyte Sedimentation Rate 126 MM/HR (0-30) H Sodium Level 129 MMOL/L (136-145) L 131 MMOL/L (136-145) L Potassium Level 6.1 MMOL/L (3.5-5.1) *H 5.3 MMOL/L (3.5-5.1) H Chloride Level 92 MMOL/L (98-107) L 94 MMOL/L (98-107) L Carbon Dioxide Level 24 MMOL/L (21-32) 25 MMOL/L (21-32) Anion Gap 13 mmol/L (5-15) 12 mmol/L (5-15) Blood Urea Nitrogen 66 mg/dL (7-18) H 70 mg/dL (7-18) H Creatinine 7.7 MG/DL (0.55-1.30) H 7.9 MG/DL (0.55-1.30) H Estimat Glomerular Filtration Rate 5.4 mL/min (>60) 5.3 mL/min (>60) Glucose Level 96 MG/DL (74-106) 81 MG/DL (74-106) Calcium Level 9.7 MG/DL (8.5-10.1) 9.3 MG/DL (8.5-10.1) Total Bilirubin 0.5 MG/DL (0.2-1.0) 0.5 MG/DL (0.2-1.0) Aspartate Amino Transf (AST/SGOT) 28 U/L (15-37) 21 U/L (15-37) Alanine Aminotransferase (ALT/SGPT) 13 U/L (12-78) 14 U/L (12-78) Alkaline Phosphatase 131 U/L (46-116) H 107 U/L (46-116) Ammonia 13 umol/L (11-32) Total Creatine Kinase 429 U/L (26-308) H Creatine Kinase MB 13.3 NG/ML (0.0-3.6) H Creatine Kinase MB Relative Index 3.1 Troponin I 0.000 ng/mL (0.000-0.056) C-Reactive Protein, Quantitative 20.2 mg/dL (0.00-0.90) H Pro-B-Type Natriuretic Peptide > 12519 pg/mL (0-125) H Total Protein 7.2 G/DL (6.4-8.2) 6.0 G/DL (6.4-8.2) L Albumin 2.4 G/DL (3.4-5.0) L 2.0 G/DL (3.4-5.0) L Globulin 4.8 g/dL 4.0 g/dL Albumin/Globulin Ratio 0.5 (1.0-2.7) L 0.5 (1.0-2.7) L Acetone Level Negative (NEGATIVE) Lactic Acid Level 0.80 mmol/L (0.4-2.0) Anisocytosis 1+ Height (Feet): 5 Height (Inches): 6.00 Weight (Pounds): 204 Medications Current Medications Medications (Trade) Dose Ordered Sig/Gabriele Route PRN Reason Start Time Stop Time Status Last Admin Dose Admin Acetaminophen (Tylenol) 650 mg Q6H PRN ORAL Mild Pain/Temp > 100.5 11/07/18 10:15 12/07/18 10:14 Calcium Acetate (Phoslo) 667 mg THREE TIMES A DAY ORAL 11/07/18 13:00 12/07/18 12:59 11/07/18 17:33 Carvedilol (Coreg) 12.5 mg EVERY 12 HOURS ORAL 11/07/18 21:00 12/07/18 20:59 Clopidogrel Bisulfate (Plavix) 75 mg DAILY ORAL 11/08/18 09:00 12/08/18 08:59 Dextrose (Dextrose 50%) 25 ml Q30M PRN IV Hypoglycemia 11/07/18 10:15 12/07/18 10:14 Dextrose (Dextrose 50%) 50 ml Q30M PRN IV Hypoglycemia 11/07/18 10:15 12/07/18 10:14 Fluticasone/ Vilanterol (Breo Ellipta 100/25) 1 puff DAILY INH 11/08/18 09:00 12/08/18 08:59 Heparin Sodium (Porcine) (Heparin 5000 units/ml) 5,000 units EVERY 12 HOURS SUBQ 11/07/18 21:00 12/07/18 20:59 Hydralazine HCl (Apresoline) 25 mg Q8HR ORAL 11/07/18 14:00 12/07/18 13:59 Insulin Aspart (NovoLOG) BEFORE MEALS AND HS SUBQ 11/07/18 11:30 12/07/18 11:29 Levetiracetam (Keppra) 1,000 mg TWICE A DAY ORAL 11/07/18 18:00 12/07/18 17:59 11/07/18 17:33 Levothyroxine Sodium (Synthroid) 50 mcg DAILY@0630 ORAL 11/08/18 06:30 12/08/18 06:29 Losartan Potassium (Cozaar) 50 mg DAILY ORAL 11/08/18 09:00 12/08/18 08:59 Nifedipine (Procardia XL) 60 mg DAILY ORAL 11/08/18 09:00 12/08/18 08:59 Piperacillin Sod/ Tazobactam Sod 2.25 gm/Dextrose 55 ml @ 110 mls/hr Q8HR IV 11/07/18 12:00 11/12/18 11:59 11/07/18 12:43 Pravastatin Sodium (Pravachol) 40 mg BEDTIME ORAL 11/07/18 21:00 12/07/18 20:59 Quetiapine Fumarate (SEROquel) 300 mg QHS ORAL 11/07/18 21:00 12/07/18 20:59 Sevelamer Carbonate (Renvela) 800 mg THREE TIMES A DAY ORAL 11/07/18 13:00 12/07/18 12:59 11/07/18 17:33 Vancomycin HCl (Vanco rx to dose) 1 ea DAILY PRN MISC Per rx protocol 11/07/18 10:30 12/07/18 10:29 Assessment/Plan Problem List: (1) Osteomyelitis Assessment & Plan: Position of the distal phalangeal tuft of the great toe. This could be due to osteomyelitis, chronic versus acute. Please correlate clinically. Hammertoes second through fifth rays. Old fracture fifth metatarsal Soft tissue swelling nonspecific. ICD Codes: M86.9 - Osteomyelitis, unspecified SNOMED: 72179347 (2) Foot ulcer due to secondary DM Assessment & Plan: DAILY ESTIMATED NEEDS: Needs based on ESRD on HD, obese, wound 67.8kg abw 25-30 kcals/kg 5023-7191 total kcals 1.25-1.8 g protein/kg 85-122 g total protein Fluid per MD, on HD NUTRITION DIAGNOSIS: * Increased protein needs r/t renal dysfunction as evidenced by ESRD dx on HD. CURRENT DIET: RENAL, mech soft ground PO DIET RECOMMENDATIONS: RENAL/ texture per PATTERN DRUM MAKER ADDITIONAL RECOMMENDATIONS: * Calibrated bedscale wt for accurate CBW, obtain dry wt post HD * Monitor lytes and renal fxn * Monitor BGs closely for hypoglycemia * Monitor PO intake closely / PATTERN DRUM MAKER eval for appropriate texture * Rec wound eval -multiple wound photos add Woody 1pkt BID, Nephrovite x 1 ICD Codes: E13.621 - Other specified diabetes mellitus with foot ulcer; L97.509 - Non-pressure chronic ulcer of other part of unspecified foot with unspecified severity SNOMED: 0499869, 669928898 (3) Lower extremity cellulitis Assessment & Plan: worsening wound as compared to prior podiatry eval may need amputation Abx as per ID will follow with recs plain films as above thank you ICD Codes: L03.119 - Cellulitis of unspecified part of limb SNOMED: 768567616 (4) Non compliance with medical treatment ICD Codes: Z91.19 - Patient's noncompliance with other medical treatment and regimen SNOMED: 4366549 Vic Wise Nov 07, 2018 18:39
--- NOTE | 2018-11-07 19:22 | NUR ---
HAND-OFF: Report given to CHEPE Nguyen.
--- NOTE | 2018-11-07 19:23 | NUR ---
NURSE NOTES: Received pt from CHEPE Guerra. Pt is AAOx1, VSS, with no acute distress. Pt is resistant to care, attempting to pull off IV and get out of bed. Pt is on room air with IV sights not patent and skin issues noted.
[2018-11-07 20:00] VITALS: BP 159/76
[2018-11-07] MEDS ORDERED: Haloperidol 5mg/ml Inj IM PRN (20:15)
[2018-11-07] MEDS: Carvedilol 12.5mg tab ORAL SCH (21:29)
[2018-11-07] MEDS: Heparin 5000 units/ml inj SUBQ SCH (21:30)
[2018-11-08] VITALS (8 sets, daily range): BP systolic 125–154; BP diastolic 57–78
[2018-11-08 05:07] LABS: HEMATOCRIT 23.1 % (37.0-47.0); HEMOGLOBIN 7.7 G/DL (12.0-16.0); MEAN CORPUSCULAR VOLUME 94 FL (80-99); PLATELET COUNT 233 K/UL (150-450); RED BLOOD COUNT 2.47 M/UL (4.20-5.40); WHITE BLOOD COUNT 11.2 K/UL (4.8-10.8)
[2018-11-08 05:58] LABS: ALANINE AMINOTRANSFERASE 9 U/L (12-78); ALBUMIN 1.9 G/DL (3.4-5.0); ANION GAP 12 mmol/L (5-15); ASPARTATE AMINO TRANSFERASE 20 U/L (15-37); BLOOD UREA NITROGEN 50 mg/dL (7-18); CARBON DIOXIDE 26 MMOL/L (21-32); CHLORIDE 96 MMOL/L (98-107); CREATININE 6.4 MG/DL (0.55-1.30); POTASSIUM 3.9 MMOL/L (3.5-5.1); SODIUM 134 MMOL/L (136-145)
[2018-11-08 06:00] LABS: % IRON SATURATION 18 % (15-50); IRON 21 ug/dL (50-175); TOTAL IRON BINDING CAPACITY 119 ug/dL (250-450)
[2018-11-08 06:02] LABS: GAMMA GLUTAMYL TRANSPEPTIDASE 19 U/L (5-85); PHOSPHORUS 5.4 MG/DL (2.5-4.9)
[2018-11-08] MEDS: Zosyn 2.25 gm in D5W 55ml IV SCH ×2 (06:19→14:02)
[2018-11-08] MEDS: HydrALAZINE 25mg tab ORAL SCH ×3 (06:20→22:00)
[2018-11-08] MEDS: NovoLOG Insulin Flexpen SUBQ SCH ×5 (06:20→20:24)
[2018-11-08 06:22] LABS: ALKALINE PHOSPHATASE 110 U/L (46-116); BILIRUBIN,TOTAL 0.4 MG/DL (0.2-1.0)
--- NOTE | 2018-11-08 07:05 | Consultation ---
Consult Note Assessment/Plan A/ 1) Gangrenous wounds bilateral feet right worse than left with cellulitis 2) Likely OM left foot 3) DM 2 4) ESRD 5) h/o noncompliance 6) Obese 7) Psych P/ 1) Wound care with betadine to all sites bilateral feet daily 2) Arterial Ultz BLE 3) Will need vascular consult, Dr Martinez has been contacted, will await recs 4) Cont abx per ID 5) Will follow Thank you [place] DPM Nov 08, 2018 07:05
--- NOTE | 2018-11-08 07:15 | NUR ---
NURSE NOTES: Received pt from Patrick Li RN in stable condition w/no cardiopulmonary distress noted. Pt is asleep in bed, SR on playground monitor, RA, skin alterations noted. Pt has a LH 22g IV. Bed in lowest position, alarm on, side rails up x3 & padded per seizure precaution, call light within reach.
--- NOTE | 2018-11-08 07:15 | NUR ---
HAND-OFF: Report given to CHEPE Pichardo.
[2018-11-08] MEDS ORDERED: Vancomycin 1.5gm Premix IVPB ONE (08:00)
[2018-11-08] MEDS: Heparin 5000 units/ml inj SUBQ SCH ×2 (08:11→20:23)
[2018-11-08] MEDS: Calcium Acetate 667mg Tab ORAL SCH ×3 (08:18→17:58)
[2018-11-08] MEDS: Carvedilol 12.5mg tab ORAL SCH ×2 (08:19→20:21)
[2018-11-08] MEDS: Renvela 800mg Pkt ORAL SCH ×3 (08:20→17:58)
[2018-11-08] MEDS ORDERED: Losartan 50mg tab ORAL SCH (09:00)
[2018-11-08] MEDS ORDERED: Breo Ellipta 100/25mcg - 14 dose INH SCH (09:00)
--- NOTE | 2018-11-08 10:25 | Surgery Progress Note ---
Surgery Progress Note Subjective Additional Comments leukocytosis improving ESR / CRP noted appreciate podiatry input pending US studies. local wound care Objective Last 24 Hour Vital Signs Date Time Temp Pulse Resp B/P (MAP) Pulse Ox O2 Delivery O2 Flow Rate FiO2 11/08/18 08:19 132/61 11/08/18 08:19 63 132/61 11/08/18 08:19 63 132/61 11/08/18 08:00 97.7 63 16 132/61 (84) 97 11/08/18 08:00 62 11/08/18 08:00 Room Air 11/08/18 06:20 146/74 11/08/18 04:00 Room Air 11/08/18 04:00 97.6 62 20 146/74 (98) 10 11/08/18 04:00 63 11/08/18 00:00 98.6 74 24 154/78 (103) 97 11/08/18 00:00 Room Air 11/08/18 00:00 73 11/07/18 21:37 159/76 11/07/18 21:29 67 159/76 11/07/18 20:00 98.7 67 24 159/76 (103) 97 11/07/18 20:00 Room Air 11/07/18 20:00 67 11/07/18 16:00 69 11/07/18 16:00 Room Air 11/07/18 16:00 98.0 66 16 138/62 (87) 98 11/07/18 12:00 97.5 63 16 131/58 (82) 95 11/07/18 12:00 Room Air 11/07/18 11:33 65 I&O Intake and Output 11/07/18 11/08/18 19:00 07:00 Intake Total 500 ml 55 ml Output Total 4000 ml Balance -3500 ml 55 ml Intake Oral 500 ml IV Total 55 ml Output Hemodialysis UF 4000 ml # Bowel Movements 1 1 Dressing: saturated Wound: other Drains: other Cardiovascular: RSR Respiratory: clear Abdomen: soft, non-tender, present bowel sounds Extremities: no cyanosis, other Laboratory Tests Test 11/08/18 03:30 White Blood Count 11.2 K/UL (4.8-10.8) H Red Blood Count 2.47 M/UL (4.20-5.40) L Hemoglobin 7.7 G/DL (12.0-16.0) L Hematocrit 23.1 % (37.0-47.0) L Mean Corpuscular Volume 94 FL (80-99) Mean Corpuscular Hemoglobin 31.0 PG (27.0-31.0) Mean Corpuscular Hemoglobin Concent 33.2 G/DL (32.0-36.0) Red Cell Distribution Width 14.0 % (11.6-14.8) Platelet Count 233 K/UL (150-450) Mean Platelet Volume 6.2 FL (6.5-10.1) L Neutrophils (%) (Auto) % (45.0-75.0) Lymphocytes (%) (Auto) % (20.0-45.0) Monocytes (%) (Auto) % (1.0-10.0) Eosinophils (%) (Auto) % (0.0-3.0) Basophils (%) (Auto) % (0.0-2.0) Sodium Level 134 MMOL/L (136-145) L Potassium Level 3.9 MMOL/L (3.5-5.1) Chloride Level 96 MMOL/L (98-107) L Carbon Dioxide Level 26 MMOL/L (21-32) Anion Gap 12 mmol/L (5-15) Blood Urea Nitrogen 50 mg/dL (7-18) H Creatinine 6.4 MG/DL (0.55-1.30) H Estimat Glomerular Filtration Rate 6.7 mL/min (>60) Glucose Level 81 MG/DL (74-106) Hemoglobin A1c 4.6 % (4.3-6.0) Uric Acid 4.5 MG/DL (2.6-7.2) Calcium Level 9.0 MG/DL (8.5-10.1) Phosphorus Level 5.4 MG/DL (2.5-4.9) H Magnesium Level 1.9 MG/DL (1.8-2.4) Iron Level 21 ug/dL (50-175) L Total Iron Binding Capacity 119 ug/dL (250-450) L Percent Iron Saturation 18 % (15-50) Unsaturated Iron Binding 98 ug/dL (112-346) L Ferritin 614 NG/ML (8-388) H Total Bilirubin 0.4 MG/DL (0.2-1.0) Gamma Glutamyl Transpeptidase 19 U/L (5-85) Aspartate Amino Transf (AST/SGOT) 20 U/L (15-37) Alanine Aminotransferase (ALT/SGPT) 9 U/L (12-78) L Alkaline Phosphatase 110 U/L (46-116) C-Reactive Protein, Quantitative 18.9 mg/dL (0.00-0.90) H Pro-B-Type Natriuretic Peptide > 71726 pg/mL (0-125) H Total Protein 6.0 G/DL (6.4-8.2) L Albumin 1.9 G/DL (3.4-5.0) L Globulin 4.1 g/dL Vitamin B12 Level 517 PG/ML (193-986) Folate 30.0 NG/ML (8.6-58.9) Thyroid Stimulating Hormone (TSH) 7.351 uiU/mL (0.358-3.740) Random Vancomycin Level 14.7 ug/mL Plan Problems: (1) Osteomyelitis Assessment & Plan: Position of the distal phalangeal tuft of the great toe. This could be due to osteomyelitis, chronic versus acute. Please correlate clinically. Hammertoes second through fifth rays. Old fracture fifth metatarsal Soft tissue swelling nonspecific. (2) Foot ulcer due to secondary DM Assessment & Plan: DAILY ESTIMATED NEEDS: Needs based on ESRD on HD, obese, wound 67.8kg abw 25-30 kcals/kg 6187-9345 total kcals 1.25-1.8 g protein/kg 85-122 g total protein Fluid per MD, on HD NUTRITION DIAGNOSIS: * Increased protein needs r/t renal dysfunction as evidenced by ESRD dx on HD. CURRENT DIET: RENAL, mech soft ground PO DIET RECOMMENDATIONS: RENAL/ texture per PHOTO [employer]APHICS LIBRARIAN ADDITIONAL RECOMMENDATIONS: * Calibrated bedscale wt for accurate CBW, obtain dry wt post HD * Monitor lytes and renal fxn * Monitor BGs closely for hypoglycemia * Monitor PO intake closely / PHOTO GRAPH[employer] LIBRARIAN eval for appropriate texture * Rec wound eval -multiple wound photos add Woody 1pkt BID, Nephrovite x 1 (3) Lower extremity cellulitis Assessment & Plan: worsening wound as compared to prior podiatry input appreciated vascular consult pending US studies may need amputation Abx as per ID will follow with recs plain films as above thank you (4) Non compliance with medical treatment Vic Wise Nov 08, 2018 10:25
--- NOTE | 2018-11-08 10:52 | Nephrology Progress Note ---
Assessment/Plan Problem List: (1) ESRD (end stage renal disease) (2) Hyperkalemia (3) Seizure disorder (4) Foot ulcer due to secondary DM Assessment Admitted for foot infection and missing HD and hyperkalemia (1) ESRD (end stage renal disease) on dialysis (2) Altered level of consciousness / Encephalopathy metabolic (3) Schizoaffective disorder, bipolar type (4) h/o Hypothyroidism (5) Anemia in chronic renal disease Also: - Cellulitis both LE - End-stage renal disease, on hemodialysis. fistula right arm - HTN / Pulmonary HTN - Diabetes type 2. Others - Morbid obesity. - H/O Colon Cancer - H/O Hep C - H/O Depression and Bipolar disease - Psych disease uncoaporative --Bilateral leg numbness --diabetic neuropathy --L5-S1 disc protrusion Plan HD 11/07 then 11/09 h/o refusing care and tests periodically skin care / Antibiotics / ID eval noted per consultants anti Sz med to med- surg Subjective ROS Limited/Unobtainable: No Constitutional: Reports: malaise Objective Objective Last 24 Hour Vital Signs Date Time Temp Pulse Resp B/P (MAP) Pulse Ox O2 Delivery O2 Flow Rate FiO2 11/08/18 08:19 132/61 11/08/18 08:19 63 132/61 11/08/18 08:19 63 132/61 11/08/18 08:00 97.7 63 16 132/61 (84) 97 11/08/18 08:00 62 11/08/18 08:00 Room Air 11/08/18 06:20 146/74 11/08/18 04:00 Room Air 11/08/18 04:00 97.6 62 20 146/74 (98) 10 11/08/18 04:00 63 11/08/18 00:00 98.6 74 24 154/78 (103) 97 11/08/18 00:00 Room Air 11/08/18 00:00 73 11/07/18 21:37 159/76 11/07/18 21:29 67 159/76 11/07/18 20:00 98.7 67 24 159/76 (103) 97 11/07/18 20:00 Room Air 11/07/18 20:00 67 11/07/18 16:00 69 11/07/18 16:00 Room Air 11/07/18 16:00 98.0 66 16 138/62 (87) 98 11/07/18 12:00 97.5 63 16 131/58 (82) 95 11/07/18 12:00 Room Air 11/07/18 11:33 65 Intake and Output 11/07/18 11/08/18 19:00 07:00 Intake Total 500 ml 55 ml Output Total 4000 ml Balance -3500 ml 55 ml Intake Oral 500 ml IV Total 55 ml Output Hemodialysis UF 4000 ml # Bowel Movements 1 1 Laboratory Tests 11/08/18 03:30: White Blood Count 11.2H, Red Blood Count 2.47L, Hemoglobin 7.7L, Hematocrit 23.1L, Mean Corpuscular Volume 94, Mean Corpuscular Hemoglobin 31.0, Mean Corpuscular Hemoglobin Concent 33.2, Red Cell Distribution Width 14.0, Platelet Count 233, Mean Platelet Volume 6.2L, Neutrophils (%) (Auto) , Lymphocytes (%) ( Auto) , Monocytes (%) (Auto) , Eosinophils (%) (Auto) , Basophils (%) (Auto) , Sodium Level 134L, Potassium Level 3.9, Chloride Level 96L, Carbon Dioxide Level 26, Anion Gap 12, Blood Urea Nitrogen 50H, Creatinine 6.4H, Estimat Glomerular Filtration Rate 6.7, Glucose Level 81, Hemoglobin A1c 4.6, Uric Acid 4.5, Calcium Level 9.0, Phosphorus Level 5.4H, Magnesium Level 1.9, Iron Level 21L, Total Iron Binding Capacity 119L, Percent Iron Saturation 18, Unsaturated Iron Binding 98L, Ferritin 614H, Total Bilirubin 0.4, Gamma Glutamyl Transpeptidase 19, Aspartate Amino Transf (AST/SGOT) 20, Alanine Aminotransferase (ALT/SGPT) 9L, Alkaline Phosphatase 110, C-Reactive Protein, Quantitative 18.9H, Pro-B-Type Natriuretic Peptide > 52567P, Total Protein 6.0L , Albumin 1.9L, Globulin 4.1, Vitamin B12 Level 517, Folate 30.0, Thyroid Stimulating Hormone (TSH) 7.351H, Random Vancomycin Level 14.7 Height (Feet): 5 Height (Inches): 6.00 Weight (Pounds): 214 General Appearance: no apparent distress Cardiovascular: normal rate Respiratory/Chest: decreased breath sounds Abdomen: distended Extremities: other - unchanged Eamon Solis MD Nov 08, 2018 10:52
--- NOTE | 2018-11-08 10:59 | General Progress Note ---
Assessment/Plan Status: stable, other - r/o sepsis Assessment/Plan: 57 year old female with ESRD, mental illness including schizophrenia and bipolar disorder, peripheral vascular disease and history of non compliance with treatment sent to the hospital from [facility] for AMS, refusing HD and right foot great toe wound/cellulitis and right 2nd toe gangrene. 1. r/o sepsis. Has leukocytosis and AMS (which could be due to infection (R foot 2nd toe gangrene/ischemia, R foot great toe wound/Osteomyelitis) vs. missed HD) essentially acute toxic metabolic encephalopathy. -Zonyn and vancomycin -ID, surgery and podiatry evaluation requested. May need an amputation. Arterial studies of lower extremities to be repeated. Vascular consult -follow up cultures and labs -Continue Plavix 2. ESRD -Urgent HD done -Nephrology consult with Dr. Solis -Monitor electrolytes -Phosphate binders 3. Mental health disorder- Schizophrenia and bipolar. -continue -Dr. Beckett from psychiatry to see -Continue Seroquel 300mg QHS 4. HTN Continue Losartan, carvedilol, hydralazine, Nifedipine 5. DM- controlled. HbA1c 4.5. Continue insulin via sliding scale as needed 6. Seizure disorder. Continue keppra 7. COPD. without exacerbation. Continue Breo 8. Hypothyroidism. Continue Levothyroxine. Increase dose from 50 to 75. TSH7.5 on 11/01 vte ppx: heparin subq GI ppx, not indicated Code: full code I spent 40 minutes on this encounter. > 50% on care coordination and counselling. Time of this note may not reflect time of encounter Subjective Date patient seen: Nov 08, 2018 ROS Limited/Unobtainable: Yes Allergies: Coded Allergies: No Known Allergies (Verified , 08/23/06) Subjective poor historian unable to obtain ROS due to mental status stable no acute events wbc trending down Objective Last 24 Hour Vital Signs Date Time Temp Pulse Resp B/P (MAP) Pulse Ox O2 Delivery O2 Flow Rate FiO2 11/08/18 08:19 132/61 11/08/18 08:19 63 132/61 11/08/18 08:19 63 132/61 11/08/18 08:00 97.7 63 16 132/61 (84) 97 11/08/18 08:00 62 11/08/18 08:00 Room Air 11/08/18 06:20 146/74 11/08/18 04:00 Room Air 11/08/18 04:00 97.6 62 20 146/74 (98) 10 11/08/18 04:00 63 11/08/18 00:00 98.6 74 24 154/78 (103) 97 11/08/18 00:00 Room Air 11/08/18 00:00 73 11/07/18 21:37 159/76 11/07/18 21:29 67 159/76 11/07/18 20:00 98.7 67 24 159/76 (103) 97 11/07/18 20:00 Room Air 11/07/18 20:00 67 11/07/18 16:00 69 11/07/18 16:00 Room Air 11/07/18 16:00 98.0 66 16 138/62 (87) 98 11/07/18 12:00 97.5 63 16 131/58 (82) 95 11/07/18 12:00 Room Air 11/07/18 11:33 65 Intake and Output 11/07/18 11/08/18 19:00 07:00 Intake Total 500 ml 55 ml Output Total 4000 ml Balance -3500 ml 55 ml Intake Oral 500 ml IV Total 55 ml Output Hemodialysis UF 4000 ml # Bowel Movements 1 1 Laboratory Tests 11/08/18 03:30: White Blood Count 11.2H, Red Blood Count 2.47L, Hemoglobin 7.7L, Hematocrit 23.1L, Mean Corpuscular Volume 94, Mean Corpuscular Hemoglobin 31.0, Mean Corpuscular Hemoglobin Concent 33.2, Red Cell Distribution Width 14.0, Platelet Count 233, Mean Platelet Volume 6.2L, Neutrophils (%) (Auto) , Lymphocytes (%) ( Auto) , Monocytes (%) (Auto) , Eosinophils (%) (Auto) , Basophils (%) (Auto) , Sodium Level 134L, Potassium Level 3.9, Chloride Level 96L, Carbon Dioxide Level 26, Anion Gap 12, Blood Urea Nitrogen 50H, Creatinine 6.4H, Estimat Glomerular Filtration Rate 6.7, Glucose Level 81, Hemoglobin A1c 4.6, Uric Acid 4.5, Calcium Level 9.0, Phosphorus Level 5.4H, Magnesium Level 1.9, Iron Level 21L, Total Iron Binding Capacity 119L, Percent Iron Saturation 18, Unsaturated Iron Binding 98L, Ferritin 614H, Total Bilirubin 0.4, Gamma Glutamyl Transpeptidase 19, Aspartate Amino Transf (AST/SGOT) 20, Alanine Aminotransferase (ALT/SGPT) 9L, Alkaline Phosphatase 110, C-Reactive Protein, Quantitative 18.9H, Pro-B-Type Natriuretic Peptide > 56689I, Total Protein 6.0L , Albumin 1.9L, Globulin 4.1, Vitamin B12 Level 517, Folate 30.0, Thyroid Stimulating Hormone (TSH) 7.351H, Random Vancomycin Level 14.7 Height (Feet): 5 Height (Inches): 6.00 Weight (Pounds): 214 Objective General: Awake, disheveled, obese HEENT: PERRL, no jvd, dry mm Cardiovascular: RRR. S1S2. No m/r/g, graft in the right upper extremity Lung: CTA bl, no crackles or wheezing Abdomen: Abdomen is soft, nondistended. Nontender, obese Musculoskeletal: moves all extremities, normal tone Neuro: Awake, oriented to place and self but not time. grossly normal Skin: Multiple wounds over the lower and upper extremities including the left heel, multiple toes, right 2nd toe gangrene, right great toe wound Diego Ramirez M.D. Nov 08, 2018 10:59
--- NOTE | 2018-11-08 12:45 | NUR ---
NURSE NOTES: Food tray just arrived. Insulin administered now w/food.
--- NOTE | 2018-11-08 13:49 | NUR ---
*-* INSURANCE *-* UPDATED CLINICALS HAVE BEEN FAXED TO: [email or web address] FAX ALL CLINICALS TO: [phone]
--- NOTE | 2018-11-08 15:22 | NUR ---
ALCOHOL RUBBERQUALITY ENGINEER MEDICAL DEVICE SI; ALOC T. 96.4 HR 62 RR 14 B/P 146/74 RA 98% WBC 11.2 H/H 7.7/23.1 BNP>57710 IS: ZOSYN IV PHOSLO COREG COZAAR PO STEP DOWN STATUS
--- NOTE | 2018-11-08 16:30 | NUR ---
TRANSFER TO FLOOR: Patient transferred to via hospital bed in stable condition, per Dr. Solis. Report, belongings, and medications given to CHEPE Lane. I informed Domingo that insulin Novolog was not given because tray has not yet arrived.
--- NOTE | 2018-11-08 16:58 | NUR ---
NURSE NOTES: RECEIVED PT ASLEEP , EASILY AROUSABLE, NO DISTRESS. RIGHT UPPER ARM SHUNT PATENT +THRILL +BRUIT, NO C/O PAIN. BED IN LOWEST POSITION, LOCKED, BED ALARM ON. CALL LIGHT WITHIN REACH. ENDORSED TO MIMI MO
--- NOTE | 2018-11-08 17:49 | Infectious Diseases Prog Note ---
Assessment/Plan Assessment/Plan Full consult dictated: A) 1) ams, leukocytosis, sepsis, bilateral foot/toes gangrene/wound infection/ osteomyelitis/cellulitis 2) esrd, hd 3) pmh noted 4) allergies - nkda P) 1) zosyn and vancomycin 2) podiatry evaluation noted, vascular surgery f/u, surgery f/u 3) f/u labs 4) f/u on cultures and chest x-ray 5) will f/u Subjective Constitutional: Denies: fever HEENT: Denies: congestion Respiratory: Denies: shortness of breath Cardiovascular: Denies: chest pain Gastrointestinal/Abdominal: Denies: nausea, vomiting, diarrhea Neurologic: Reports: other - more alert Allergies: Coded Allergies: No Known Allergies (Verified , 08/23/06) Objective Vital Signs Last 24 Hour Vital Signs Date Time Temp Pulse Resp B/P (MAP) Pulse Ox O2 Delivery O2 Flow Rate FiO2 11/08/18 16:58 97.7 62 12 141/57 (85) 96 11/08/18 16:00 97.7 60 12 144/73 (96) 96 11/08/18 16:00 Room Air 11/08/18 16:00 61 11/08/18 14:02 125/62 11/08/18 12:00 Room Air 11/08/18 12:00 96.4 62 14 125/62 (83) 99 11/08/18 12:00 63 11/08/18 08:19 132/61 11/08/18 08:19 63 132/61 11/08/18 08:19 63 132/61 11/08/18 08:00 97.7 63 16 132/61 (84) 97 11/08/18 08:00 62 11/08/18 08:00 Room Air 11/08/18 06:20 146/74 11/08/18 04:00 Room Air 11/08/18 04:00 97.6 62 20 146/74 (98) 10 11/08/18 04:00 63 11/08/18 00:00 98.6 74 24 154/78 (103) 97 11/08/18 00:00 Room Air 11/08/18 00:00 73 11/07/18 21:37 159/76 11/07/18 21:29 67 159/76 11/07/18 20:00 98.7 67 24 159/76 (103) 97 11/07/18 20:00 Room Air 11/07/18 20:00 67 Height (Feet): 5 Height (Inches): 6.00 Weight (Pounds): 214 HEENT: normocephalic, atraumatic, anicteric Respiratory/Chest: lungs clear, normal breath sounds, no respiratory distress Cardiovascular: normal peripheral pulses, regular rhythm, no gallop/murmur Abdomen: normal bowel sounds, soft, non tender, no organomegaly Microbiology Date/Time Source Procedure Growth Status 11/06/18 23:45 Blood Blood Culture - Preliminary NO GROWTH AFTER 24 HOURS Resulted 11/06/18 23:30 Blood Blood Culture - Preliminary NO GROWTH AFTER 24 HOURS Resulted Laboratory Tests Test 11/08/18 03:30 White Blood Count 11.2 K/UL (4.8-10.8) H Red Blood Count 2.47 M/UL (4.20-5.40) L Hemoglobin 7.7 G/DL (12.0-16.0) L Hematocrit 23.1 % (37.0-47.0) L Mean Corpuscular Volume 94 FL (80-99) Mean Corpuscular Hemoglobin 31.0 PG (27.0-31.0) Mean Corpuscular Hemoglobin Concent 33.2 G/DL (32.0-36.0) Red Cell Distribution Width 14.0 % (11.6-14.8) Platelet Count 233 K/UL (150-450) Mean Platelet Volume 6.2 FL (6.5-10.1) L Neutrophils (%) (Auto) % (45.0-75.0) Lymphocytes (%) (Auto) % (20.0-45.0) Monocytes (%) (Auto) % (1.0-10.0) Eosinophils (%) (Auto) % (0.0-3.0) Basophils (%) (Auto) % (0.0-2.0) Sodium Level 134 MMOL/L (136-145) L Potassium Level 3.9 MMOL/L (3.5-5.1) Chloride Level 96 MMOL/L (98-107) L Carbon Dioxide Level 26 MMOL/L (21-32) Anion Gap 12 mmol/L (5-15) Blood Urea Nitrogen 50 mg/dL (7-18) H Creatinine 6.4 MG/DL (0.55-1.30) H Estimat Glomerular Filtration Rate 6.7 mL/min (>60) Glucose Level 81 MG/DL (74-106) Hemoglobin A1c 4.6 % (4.3-6.0) Uric Acid 4.5 MG/DL (2.6-7.2) Calcium Level 9.0 MG/DL (8.5-10.1) Phosphorus Level 5.4 MG/DL (2.5-4.9) H Magnesium Level 1.9 MG/DL (1.8-2.4) Iron Level 21 ug/dL (50-175) L Total Iron Binding Capacity 119 ug/dL (250-450) L Percent Iron Saturation 18 % (15-50) Unsaturated Iron Binding 98 ug/dL (112-346) L Ferritin 614 NG/ML (8-388) H Total Bilirubin 0.4 MG/DL (0.2-1.0) Gamma Glutamyl Transpeptidase 19 U/L (5-85) Aspartate Amino Transf (AST/SGOT) 20 U/L (15-37) Alanine Aminotransferase (ALT/SGPT) 9 U/L (12-78) L Alkaline Phosphatase 110 U/L (46-116) C-Reactive Protein, Quantitative 18.9 mg/dL (0.00-0.90) H Pro-B-Type Natriuretic Peptide > 29846 pg/mL (0-125) H Total Protein 6.0 G/DL (6.4-8.2) L Albumin 1.9 G/DL (3.4-5.0) L Globulin 4.1 g/dL Vitamin B12 Level 517 PG/ML (193-986) Folate 30.0 NG/ML (8.6-58.9) Thyroid Stimulating Hormone (TSH) 7.351 uiU/mL (0.358-3.740) Random Vancomycin Level 14.7 ug/mL Current Medications Medications (Trade) Dose Ordered Sig/Gabriele Route PRN Reason Start Time Stop Time Status Last Admin Dose Admin Acetaminophen (Tylenol) 650 mg Q6H PRN ORAL Mild Pain/Temp > 100.5 11/08/18 17:00 12/07/18 16:59 Calcium Acetate (Phoslo) 667 mg THREE TIMES A DAY ORAL 11/08/18 18:00 12/07/18 12:59 Carvedilol (Coreg) 12.5 mg EVERY 12 HOURS ORAL 11/08/18 21:00 12/07/18 20:59 Clopidogrel Bisulfate (Plavix) 75 mg DAILY ORAL 11/09/18 09:00 12/08/18 08:59 Dextrose (Dextrose 50%) 25 ml Q30M PRN IV Hypoglycemia 11/08/18 17:15 12/07/18 10:14 Dextrose (Dextrose 50%) 50 ml Q30M PRN IV Hypoglycemia 11/08/18 17:15 12/07/18 10:14 Fluticasone/ Vilanterol (Breo Ellipta 100/25) 1 puff DAILY INH 11/09/18 09:00 12/08/18 08:59 Haloperidol Lactate (Haldol) 5 mg Q6H PRN IM Agitation 11/08/18 17:30 12/07/18 17:29 Heparin Sodium (Porcine) (Heparin 5000 units/ml) 5,000 units EVERY 12 HOURS SUBQ 11/08/18 21:00 12/07/18 20:59 Hydralazine HCl (Apresoline) 25 mg Q8HR ORAL 11/08/18 22:00 12/07/18 13:59 Insulin Aspart (NovoLOG) BEFORE MEALS AND HS SUBQ 11/08/18 21:00 12/07/18 11:29 Levetiracetam (Keppra) 1,000 mg Q12HR ORAL 11/08/18 21:00 12/07/18 17:59 Levothyroxine Sodium (Synthroid) 75 mcg DAILY@0630 ORAL 11/09/18 06:30 12/08/18 06:29 Losartan Potassium (Cozaar) 50 mg DAILY ORAL 11/09/18 09:00 12/08/18 08:59 Nifedipine (Procardia XL) 60 mg DAILY ORAL 11/09/18 09:00 12/08/18 08:59 Piperacillin Sod/ Tazobactam Sod 2.25 gm/Dextrose 55 ml @ 110 mls/hr Q8HR IV 11/08/18 22:00 11/12/18 11:59 Pravastatin Sodium (Pravachol) 40 mg BEDTIME ORAL 11/08/18 21:00 12/07/18 20:59 Quetiapine Fumarate (SEROquel) 300 mg QHS ORAL 11/08/18 21:00 12/07/18 20:59 Sevelamer Carbonate (Renvela) 800 mg THREE TIMES A DAY ORAL 11/08/18 18:00 12/07/18 12:59 Vancomycin HCl (Vanco rx to dose) 1 ea DAILY PRN MISC Per rx protocol 11/08/18 17:30 12/08/18 17:29 Nehal Nolasco MD Nov 08, 2018 17:49
[2018-11-08] MEDS ORDERED: DUONEB 0.5-3(2.53 ML HHN (18:26)
--- NOTE | 2018-11-08 19:45 | NUR ---
NURSE NOTES: called [facility], spoken to Maria C re: pt's HD 11/09/18. Awaiting confirmation.
--- NOTE | 2018-11-08 20:21 | NUR ---
HAND-OFF: Report given to RN Marc.
[2018-11-08] MEDS: Haloperidol 5mg/ml Inj IM PRN (20:23)
[2018-11-08] MEDS: Piperacillin/Tazobactam 2.25 GM in D5W 55 ML IV SCH (20:25)
[2018-11-08] MEDS ORDERED: NovoLOG Insulin Flexpen SUBQ SCH (21:00)
--- NOTE | 2018-11-08 21:10 | NUR ---
NURSE NOTES: Pt is received from CHEPE Wu. Pt is in bed agitated, no following instructions, pt get up from bed and tries to walk when she has very unsteady gait. Pt is instructed to stay in bed, pt reoriented, pt is given food and hydration, pt was cleaned. Pt is still agitated. Pt is given Haldol 5mg IM as ordered PRN agitation. Fall precaution in place. Bed alarm ON. Bed locked low in position,side rails up and call light within reach. Pt will be monitored. FAISAL Gustafson sitting close to the room to monitor patient if patient attempts to get up from bed.
--- NOTE | 2018-11-08 21:58 | NUR ---
NURSE NOTES: Pt seems little more calm now. Pt will be monitored.
--- NOTE | 2018-11-08 22:00 | Consultation ---
DATE OF CONSULTATION: 11/08/2018 INFECTIOUS DISEASE CONSULTATION CONSULTING PHYSICIAN: Nehal Nolasco M.D. ATTENDING PHYSICIAN: Leonardo Rudolph M.D. REFERRING PHYSICIAN: Diego Ramirez M.D. REASON FOR CONSULTATION: Sepsis, elevated white count, altered mental status, infected wounds of the feet and toes with gangrene and cellulitis. CHIEF COMPLAINT: The patient's chief complaint coming to the hospital is altered mental status, sepsis, elevated white count, infected wounds. HISTORY OF PRESENT ILLNESS: This is a 57-year-old female who I saw yesterday at [facility]. I saw her in the step-down unit where she had altered mental status and elevated white count. There was concern that the patient was septic. Initial white count was 21.2 and she had altered mental status, elevated respiratory rate, and SIRS criteria. Workup showed that she had pulmonary vascular congestion on chest x-ray. Blood cultures are negative to date and x-ray of the right foot showed osteo. The patient has multiple wounds of the feet and toes with gangrenous changes. On the x-ray of the right foot as discussed has osteo. The patient is being seen by Podiatry. She also has cellulitis of the feet, infected wound, and gangrenous changes. The patient is on vancomycin and Zosyn empirically. MAR was noted. Orders were noted. Notes were reviewed. Case was discussed with the RN and also case discussed with Dr. Ramirez. REVIEW OF SYSTEMS: CONSTITUTIONAL: The patient came in with altered mental status. She seems to be more alert today than yesterday when I saw her. She has no fevers. She is no acute distress currently. Denies fatigue. No fever or chills. No dysphagia, thrush, change in vision, fever, chills, night sweats, or weight loss. HEAD AND NECK: She has no head pain or neck pain. CARDIAC: No chest pain. GASTROINTESTINAL: No nausea, vomiting, or diarrhea. GENITOURINARY: No Hernandez. She is on hemodialysis. PULMONARY: No congestion or shortness of breath. Mild secretions. No hemoptysis. SKIN: No rash. EXTREMITIES: She has foot pain. NEUROLOGIC: No seizures. PAST MEDICAL HISTORY: Includes the following. The patient has a past medical history of wounds and soft tissue infections. She has a past medical history of end-stage renal disease on hemodialysis on Sunday, Sunday, and Sunday. She has history of right upper extremity graft, history of obesity, schizophrenia, bipolar disease, hypertension, hyperlipidemia, anemia, altered mental status, and diabetes. She also has a history of hypothyroidism. ALLERGIES: No known drug allergies. SOCIAL HISTORY: Negative for smoking, alcohol, or drug abuse. FAMILY HISTORY: Noncontributory. Negative for tuberculosis or cancer per the records. MEDICATIONS: Upon reviewing the MAR, she is on following medications. She is clopidogrel. She is on losartan, nifedipine, levothyroxine, Zosyn, hydralazine, Vanco, carvedilol, heparin. Vanco per pharmacy dosing. She is on , quetiapine, calcium acetate, sevelamer, insulin, haloperidol, acetaminophen. Outside medications were noted and reconciliated. PHYSICAL EXAMINATION: VITAL SIGNS: Temperature is 97.7, pulse rate 62, respiratory rate 12, saturation 96%, blood pressure 141/57, respiratory rate has been as high as 24. GENERAL: More alert today, responsive. No acute distress. HEAD AND NECK: Oral exam, no thrush. Eye exam, no icterus. Neck is supple. No JVD. Normocephalic. HEART: Regular. No gallop or murmur. ABDOMEN: Soft. Positive bowel sounds. Nontender. LUNGS: Few bilateral rhonchi. Possible crackles. No rales. SKIN: No rash. No effusion. MUSCULOSKELETAL: Legs are without cellulitis. No septic arthritis. PERIPHERAL VASCULAR: She has gangrenous changes of the toes in her feet with infected wounds and secondary to cellulitis. NEUROLOGIC: More alert today. Nonfocal. LINES: Line sites are without phlebitis. GENITOURINARY: She has no Hernandez. No CVA tenderness. LABORATORY AND DIAGNOSTIC DATA: Laboratory data as follows. Sodium is 131, now it is 134. Creatinine is 6.4. LFTs noted. White count 11.2, hemoglobin 7.7. White count yesterday was 15.3. On admission, white count 21.2. Lactic acid was normal. Again creatinine 6.7. Cultures, blood cultures are negative to date. Chest x-ray shows pulmonary vascular congestion, note reviewed. X-ray of the right foot showed possible osteo changes at the tuft of the great toe. ASSESSMENT AND PLAN: 1. The patient comes in with altered mental status, leukocytosis, elevated respiratory rate, positive SIRS criteria, also SOFA criteria with altered mental status and elevated respiratory rate. At this time, most likely source of infection including the bilateral foot toes with gangrenous changes, infected wounds, osteo, and cellulitis. The patient is being followed by Podiatry and Vascular Surgery evaluation has been recommended. Again x-ray showed right foot to have osteo. At this time, we will continue Vanco and Zosyn empirically for MRSA, gram-negative coverage, anaerobic coverage. Continue Vanco and Zosyn for sepsis and infected foot and toes with gangrene, wound infection, osteo, and cellulitis. Check final blood culture results. Of note, chest x-ray shows pulmonary vascular congestion. Give her Vanco and Zosyn for sepsis workup and soft tissue infection pending final cultures. Podiatry and Vascular Surgery followup. 2. End-stage renal disease, on hemodialysis. Continue management per Renal Medicine. 3. Anemia of chronic disease. 4. History of upper extremity graft. 5. Obesity. 6. Schizophrenia. 7. Bipolar disease. 8. Diabetes. 9. Hypertension. 10. Blood sugar, blood pressure treatment per primary. 11. Hyperlipidemia. 12. Hypothyroidism. 13. Wound care protocol and surgery. 14. Allergies are negative. 15. Social history negative. 16. Family history noncontributory. 17. MAR is noted. 18. Case discussed with RN. 19. Case discussed with Dr. Ramirez. 20. Continue treatment per primary consultants. Nehal Nolasco M.D. DR: BAHMAN JOB#: [id number] CC:
--- NOTE | 2018-11-08 23:45 | Consultation ---
DATE OF CONSULTATION: 11/08/2018 CONSULTING PHYSICIAN: Blanka Beckett M.D HISTORY OF PRESENT ILLNESS: The patient is a 57-year-old female, well known to this physician from previous hospitalization and custodial. The patient has a history of schizoaffective disorder, very noncompliant, admitted to the hospital due to right great toe infection. The patient was agitated yesterday and received a cocktail. Today, during the evaluation, was more alert and was able to answer the questions more appropriately. PAST PSYCHIATRIC HISTORY: Schizoaffective disorder, bipolar type and anxiety disorder. PAST MEDICAL HISTORY: Diabetes, hypertension, obesity, and hyperlipidemia. ALLERGIES: No known drug allergies. SUBSTANCE ABUSE HISTORY: No known history of illicit drug use or alcohol. MENTAL STATUS EXAMINATION: The patient is alert and oriented times to self and place. She knows the month and year. Mood is neutral. Affect is flat. Thought process is concrete. Thought content, no suicidal or homicidal ideation. Cognition is impaired. Insight and judgment is impaired. ASSESSMENT: AXIS I: Schizoaffective disorder. AXIS II: Deferred. AXIS III: As above. AXIS IV: Low. AXIS V: 20. PLAN: The patient will be continued on current medication. We will continue to follow and readjust the medications. Blanka Beckett M.D. DR: TY JOB#: [id number] CC:
[2018-11-09] VITALS (7 sets, daily range): BP systolic 114–172; BP diastolic 45–80
--- NOTE | 2018-11-09 03:30 | Consultation ---
DATE OF CONSULTATION: 11/08/2018 CONSULTING PHYSICIAN: [place] D.P.M. REQUESTING PHYSICIAN: REASON FOR CONSULTATION: Gangrene, presence recurrence of diabetes mellitus, cellulitis. HISTORY OF PRESENT ILLNESS: The patient is a 57-year-old female, who is admitted to [facility] on November 06, 2018 for encephalopathy, hemodialysis, and cellulitis of the lower extremity. The patient currently is slightly altered and unable to provide complete medical history. This was obtained through chart review. Nurse was present during physical examination. PAST MEDICAL HISTORY: Significant for end-stage renal disease, obesity, schizophrenia, bipolar disorder, diabetes mellitus, hypertension, hyperlipidemia, chronic anemia, noncompliance with medical treatment, history of colon cancer, history of hepatitis C, seizure disorder, and chronic obstructive pulmonary disease. PAST SURGICAL HISTORY: Significant for dialysis access graft. ALLERGIES: She has no known drug allergies. FAMILY HISTORY: Noncontributory. SOCIAL HISTORY: The patient resides in a [facility] facility. REVIEW OF SYSTEMS: Unobtainable. PHYSICAL EXAMINATION: VITAL SIGNS: Temperature is 97.7, pulse is 63, respiration rate is 16, blood pressure is 132/61, and she is saturating 97% on room air. LOWER EXTREMITIES: Vascular, nonpalpable pedal pulses noted bilaterally. Feet are equally warm. There is no edema or cyanosis noted. DERMATOLOGICAL: The patient has gangrenous changes to bilateral feet, right worse than left. Left foot, the first and second toes are affected minimally. No signs of acute infection noted. Right foot, first, second, and fifth toes are affected with the second toe having complete mummification of the toe and slight dislocation. There is erythema noted on the right lower extremity. No malodor. No purulence noted. MUSCULOSKELETAL: No gross deformities are noted. LABORATORY AND DIAGNOSTIC DATA: White blood cell count is 11.2, hemoglobin and hematocrit is 7.7 and 23.1, and platelet count is 233. Sedimentation rate is 126. Potassium is 3.9, BUN is 50, creatinine is 6.4. Hemoglobin A1c is 4.6. C-reactive protein is 18.9. Albumin is 1.9. Foot x-ray of right foot shows distal phalanx tuft of the great toe, possibly obstructed by osteomyelitis. Hammertoes are noted. Occult fracture of the fifth metatarsal is noted. Nonspecific swelling is also noted. ASSESSMENT: 1. Gangrenous wounds, bilateral feet, right worse than the left with cellulitis. 2. Likely osteomyelitis of the right foot. 3. Type 2 diabetes mellitus. 4. End-stage renal disease. 5. History of noncompliance. 6. Obesity. 7. Psych issues. PLAN: 1. Wound care orders with Betadine to all sites of bilateral feet daily. 2. Arterial ultrasound of bilateral lower extremities was ordered. 3. We will need vascular consult, Dr. Martinez has been contacted. We will await records. 4. Continue antibiotics per Infectious Disease. 5. We will follow. Thank you for the courtesy of this consultation. [place] D.P.M. DR: PRATIK JOB#: [id number] CC:
--- NOTE | 2018-11-09 03:41 | NUR ---
NURSE NOTES: Pt is in bed, asleep. HOB elevated. Vitas stable. No acute distress noted. Fall precaution in place.
--- NOTE | 2018-11-09 04:43 | NUR ---
NURSE NOTES: [facility] HD services notified of HD order for today.
[2018-11-09] MEDS: HydrALAZINE 25mg tab ORAL SCH ×3 (06:22→21:24)
[2018-11-09] MEDS: Piperacillin/Tazobactam 2.25 GM in D5W 55 ML IV SCH ×3 (06:24→21:24)
[2018-11-09] MEDS: Haloperidol 5mg/ml Inj IM PRN (06:30)
[2018-11-09] MEDS: NovoLOG Insulin Flexpen SUBQ SCH ×4 (06:30→21:28)
--- NOTE | 2018-11-09 07:16 | NUR ---
NURSE NOTES: PATIENT RECEIVED FROM CHEPE GRAY. PATIENT RECEIVED SLEEPING IN BED, PATIENTS IV IS CLEAN DRY AND INTACT, SALINE LOCKED. INFORMED THAT PATIENT WILL BE DIALYZED TODAY, ALSO INFORMED THAT NO BLOOD PRESSURE ON THE RIGHT ARM. WILL CONTINUE TO MONITOR.
--- NOTE | 2018-11-09 07:30 | NUR ---
HAND-OFF: Report given to CHEPE Thornton.Informed that pt is fall Risk.
[2018-11-09 08:22] LABS: HEMATOCRIT 22.4 % (37.0-47.0); HEMOGLOBIN 7.3 G/DL (12.0-16.0); MEAN CORPUSCULAR VOLUME 94 FL (80-99); PLATELET COUNT 225 K/UL (150-450); RED BLOOD COUNT 2.39 M/UL (4.20-5.40); RED CELL DISTRIBUTION WIDTH 14.3 % (11.6-14.8); WHITE BLOOD COUNT 9.6 K/UL (4.8-10.8)
[2018-11-09] MEDS: Calcium Acetate 667mg Tab ORAL SCH ×3 (09:00→18:47)
[2018-11-09] MEDS: Losartan 50mg tab ORAL SCH ×2 (09:00→13:19)
[2018-11-09] MEDS: Breo Ellipta 100/25mcg - 14 dose INH SCH (09:00)
[2018-11-09] MEDS: Carvedilol 12.5mg tab ORAL SCH ×2 (09:00→21:24)
[2018-11-09] MEDS: Heparin 5000 units/ml inj SUBQ SCH ×2 (09:00→21:26)
[2018-11-09] MEDS: Renvela 800mg Pkt ORAL SCH ×3 (09:00→18:46)
--- NOTE | 2018-11-09 09:02 | Surgery Progress Note ---
Surgery Progress Note Subjective Additional Comments podiatry input appreciated pending vascular input on abx exam stable labs noted Objective Last 24 Hour Vital Signs Date Time Temp Pulse Resp B/P (MAP) Pulse Ox O2 Delivery O2 Flow Rate FiO2 11/09/18 08:00 98.0 57 18 145/59 (87) 98 11/09/18 06:22 135/55 11/09/18 04:00 98.7 55 18 114/45 (68) 96 11/09/18 01:07 99.0 78 18 125/50 (75) 97 11/09/18 00:00 99.0 55 16 125/50 (75) 94 11/08/18 22:00 125/50 11/08/18 21:25 98.8 68 18 152/68 (96) 97 11/08/18 21:00 Room Air 11/08/18 20:21 68 178/66 11/08/18 20:00 99.2 68 18 152/68 (96) 97 11/08/18 16:58 97.7 62 12 141/57 (85) 96 11/08/18 16:00 97.7 60 12 144/73 (96) 96 11/08/18 16:00 Room Air 11/08/18 16:00 61 11/08/18 14:02 125/62 11/08/18 12:00 Room Air 11/08/18 12:00 96.4 62 14 125/62 (83) 99 11/08/18 12:00 63 I&O Intake and Output 11/08/18 11/09/18 18:59 06:59 Intake Total 570.0 ml 55 ml Balance 570.0 ml 55 ml Intake Oral 240 ml IV Total 330.0 ml 55 ml # Voids 2 # Bowel Movements 2 2 Dressing: saturated Wound: other Drains: other Cardiovascular: RSR Respiratory: clear Abdomen: soft, non-tender, present bowel sounds Extremities: other Laboratory Tests Test 11/09/18 06:20 White Blood Count 9.6 K/UL (4.8-10.8) Red Blood Count 2.39 M/UL (4.20-5.40) L Hemoglobin 7.3 G/DL (12.0-16.0) L Hematocrit 22.4 % (37.0-47.0) L Mean Corpuscular Volume 94 FL (80-99) Mean Corpuscular Hemoglobin 30.6 PG (27.0-31.0) Mean Corpuscular Hemoglobin Concent 32.6 G/DL (32.0-36.0) Red Cell Distribution Width 14.3 % (11.6-14.8) Platelet Count 225 K/UL (150-450) Mean Platelet Volume 6.5 FL (6.5-10.1) Neutrophils (%) (Auto) % (45.0-75.0) Lymphocytes (%) (Auto) % (20.0-45.0) Monocytes (%) (Auto) % (1.0-10.0) Eosinophils (%) (Auto) % (0.0-3.0) Basophils (%) (Auto) % (0.0-2.0) Neutrophils % (Manual) Pending Lymphocytes % (Manual) Pending Platelet Estimate Pending Platelet Morphology Pending Sodium Level Pending Potassium Level Pending Chloride Level Pending Carbon Dioxide Level Pending Blood Urea Nitrogen Pending Creatinine Pending Estimat Glomerular Filtration Rate Pending Glucose Level Pending Calcium Level Pending Total Bilirubin Pending Aspartate Amino Transf (AST/SGOT) Pending Alanine Aminotransferase (ALT/SGPT) Pending Alkaline Phosphatase Pending Total Protein Pending Albumin Pending Globulin Pending Plan Problems: (1) Osteomyelitis Assessment & Plan: Position of the distal phalangeal tuft of the great toe. This could be due to osteomyelitis, chronic versus acute. Please correlate clinically. Hammertoes second through fifth rays. Old fracture fifth metatarsal Soft tissue swelling nonspecific. (2) Foot ulcer due to secondary DM Assessment & Plan: DAILY ESTIMATED NEEDS: Needs based on ESRD on HD, obese, wound 67.8kg abw 25-30 kcals/kg [id number] total kcals 1.25-1.8 g protein/kg 85-122 g total protein Fluid per MD, on HD NUTRITION DIAGNOSIS: * Increased protein needs r/t renal dysfunction as evidenced by ESRD dx on HD. CURRENT DIET: RENAL, mech soft ground PO DIET RECOMMENDATIONS: RENAL/ texture per [employer] ADDITIONAL RECOMMENDATIONS: * Calibrated bedscale wt for accurate CBW, obtain dry wt post HD * Monitor lytes and renal fxn * Monitor BGs closely for hypoglycemia * Monitor PO intake closely / [employer] eval for appropriate texture * Rec wound eval -multiple wound photos add Woody 1pkt BID, Nephrovite x 1 (3) Lower extremity cellulitis Assessment & Plan: worsening wound as compared to prior podiatry input appreciated vascular consult pending US studies may need amputation Abx as per ID will follow with recs plain films as above thank you (4) Non compliance with medical treatment Vic Wise Nov 09, 2018 09:02
[2018-11-09 09:21] LABS: ALANINE AMINOTRANSFERASE 20 U/L (12-78); ALBUMIN 1.8 G/DL (3.4-5.0); ALBUMIN/GLOBULIN RATIO 0.5 (1.0-2.7); ALKALINE PHOSPHATASE 100 U/L (46-116); ANION GAP 15 mmol/L (5-15); ASPARTATE AMINO TRANSFERASE 20 U/L (15-37); BILIRUBIN,TOTAL 0.4 MG/DL (0.2-1.0); BLOOD UREA NITROGEN 61 mg/dL (7-18); CALCIUM 8.4 MG/DL (8.5-10.1); CARBON DIOXIDE 23 MMOL/L (21-32); CHLORIDE 95 MMOL/L (98-107); CREATININE 7.5 MG/DL (0.55-1.30); POTASSIUM 4.4 MMOL/L (3.5-5.1); SODIUM 133 MMOL/L (136-145)
--- NOTE | 2018-11-09 09:49 | Nephrology Progress Note ---
Assessment/Plan Problem List: (1) ESRD (end stage renal disease) (2) Hyperkalemia (3) Seizure disorder (4) Foot ulcer due to secondary DM Assessment Admitted for foot infection and missing HD and hyperkalemia (1) ESRD (end stage renal disease) on dialysis (2) Altered level of consciousness / Encephalopathy metabolic (3) Schizoaffective disorder, bipolar type (4) h/o Hypothyroidism (5) Anemia in chronic renal disease Also: - Cellulitis both LE - End-stage renal disease, on hemodialysis. fistula right arm - HTN / Pulmonary HTN - Diabetes type 2. Others - Morbid obesity. 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 with RN HD 11/07 then 11/09 h/o refusing care and tests periodically skin care / Antibiotics / ID eval noted per consultants anti Sz med to med- surg Subjective ROS Limited/Unobtainable: No Constitutional: Reports: malaise Objective Objective Last 24 Hour Vital Signs Date Time Temp Pulse Resp B/P (MAP) Pulse Ox O2 Delivery O2 Flow Rate FiO2 11/09/18 08:00 98.0 57 18 145/59 (87) 98 11/09/18 06:22 135/55 11/09/18 04:00 98.7 55 18 114/45 (68) 96 11/09/18 01:07 99.0 78 18 125/50 (75) 97 11/09/18 00:00 99.0 55 16 125/50 (75) 94 11/08/18 22:00 125/50 11/08/18 21:25 98.8 68 18 152/68 (96) 97 11/08/18 21:00 Room Air 11/08/18 20:21 68 178/66 11/08/18 20:00 99.2 68 18 152/68 (96) 97 11/08/18 16:58 97.7 62 12 141/57 (85) 96 11/08/18 16:00 97.7 60 12 144/73 (96) 96 11/08/18 16:00 Room Air 11/08/18 16:00 61 11/08/18 14:02 125/62 11/08/18 12:00 Room Air 11/08/18 12:00 96.4 62 14 125/62 (83) 99 11/08/18 12:00 63 Intake and Output 11/08/18 11/09/18 18:59 06:59 Intake Total 570.0 ml 55 ml Balance 570.0 ml 55 ml Intake Oral 240 ml IV Total 330.0 ml 55 ml # Voids 2 # Bowel Movements 2 2 Laboratory Tests 11/09/18 06:20: White Blood Count 9.6, Red Blood Count 2.39L, Hemoglobin 7.3L, Hematocrit 22.4L , Mean Corpuscular Volume 94, Mean Corpuscular Hemoglobin 30.6, Mean Corpuscular Hemoglobin Concent 32.6, Red Cell Distribution Width 14.3, Platelet Count 225, Mean Platelet Volume 6.5, Neutrophils (%) (Auto) , Lymphocytes (%) ( Auto) , Monocytes (%) (Auto) , Eosinophils (%) (Auto) , Basophils (%) (Auto) , Neutrophils % (Manual) [Pending], Lymphocytes % (Manual) [Pending], Platelet Estimate [Pending], Platelet Morphology [Pending], Sodium Level 133L, Potassium Level 4.4, Chloride Level 95L, Carbon Dioxide Level 23, Anion Gap 15, Blood Urea Nitrogen 61H, Creatinine 7.5H, Estimat Glomerular Filtration Rate 5.6, Glucose Level 83, Calcium Level 8.4L, Total Bilirubin 0.4, Aspartate Amino Transf (AST/SGOT) 20, Alanine Aminotransferase (ALT/SGPT) 20, Alkaline Phosphatase 100, Total Protein 5.2L, Albumin 1.8L, Globulin 3.4, Albumin/ Globulin Ratio 0.5L Height (Feet): 5 Height (Inches): 6.00 Weight (Pounds): 208 General Appearance: no apparent distress Objective no change Eamon Solis MD Nov 09, 2018 09:49
--- NOTE | 2018-11-09 10:24 | Diagnostic Imaging Report ---
EXAM: XR Chest, 1 View CLINICAL HISTORY: INFECT TECHNIQUE: Frontal view of the chest. COMPARISON: No relevant prior studies available. FINDINGS: Lungs: Accentuation of interstitial markings. Pleural space: Unremarkable. No pneumothorax. Heart: Cardiomegaly. Mediastinum: Unremarkable. Bones joints: No acute fracture. IMPRESSION: Accentuation of interstitial markings. May be from interstitial edema and or pneumonia. There is a broader differential.
--- NOTE | 2018-11-09 13:09 | NUR ---
NURSE NOTES: PATIENT WAS RECEIVING DIALYSIS DURING MORNING MEDICATIONS ROUNDS. WILL ADMINISTER MEDICATIONS AFTER DIALYSIS IS COMPLETE.
--- NOTE | 2018-11-09 18:30 | NUR ---
NURSE NOTES: PATIENT SCRATCHING ARMS, OPENED 2 SMALL SORES ON THE RIGHT AND LEFT FOREARM. APPLIED OPTIFOAM TO BOTH SORES. EXPLAINED TO PATIENT TO AVOID SCRATCHING BECAUSE OPEN SORES ARE RISK FOR INFECTION. PATIENT ALSO KEEPS TRYING TO REMOVE IV ACCESS DEVICE. BED ALARM IS ON CONCERN FOR PATIENT RISK FOR FALLS DUE TO CONSTANTLY TRYING TO GET OUT OF BED. CHARGE NURSE CONTACTED DR TO SUGGEST RESTRAINTS FOR PATIENT DUE TOP IMPULSIVITY, TRYING TO REMOVE LINES AND FALL RISK.
--- NOTE | 2018-11-09 19:58 | NUR ---
HAND-OFF: Report given to CHEPE CHILEL.
--- NOTE | 2018-11-09 19:59 | NUR ---
NURSE NOTES: Pt has been instructed to stay in bed, pt reoriented, pt was given food and hydration. Currently sitting up in bed, on bilateral soft wrist restraints. Fall precaution in place. Bed alarm ON. Bed locked low in position,side rails up x3 and call light within reach. Pt will be closely monitored
[2018-11-10] VITALS (7 sets, daily range): BP systolic 110–184; BP diastolic 43–70
[2018-11-10] MEDS: NovoLOG Insulin Flexpen SUBQ SCH ×4 (06:00→21:21)
[2018-11-10] MEDS: HydrALAZINE 25mg tab ORAL SCH ×3 (06:15→21:18)
[2018-11-10] MEDS: Piperacillin/Tazobactam 2.25 GM in D5W 55 ML IV SCH ×3 (06:15→21:20)
--- NOTE | 2018-11-10 07:16 | NUR ---
HAND-OFF: Report given to CHEPE Thornton.
[2018-11-10 07:19] LABS: HEMATOCRIT 20.3 % (37.0-47.0); MEAN CORPUSCULAR VOLUME 93 FL (80-99); PLATELET COUNT 224 K/UL (150-450); RED BLOOD COUNT 2.18 M/UL (4.20-5.40); RED CELL DISTRIBUTION WIDTH 13.9 % (11.6-14.8)
[2018-11-10 07:22] LABS: HEMOGLOBIN 6.6 G/DL (12.0-16.0)
--- NOTE | 2018-11-10 07:31 | NUR ---
NURSE NOTES: HANDOFF RECEIVED FROM GETACHEW MO. PATIENT RECEIVED IN BILATERAL WRIST RESTRAINTS, IV SITE IS CLEAN DRY AND INTACT, RUNNING PRESCRIBED FLUIDS. PATIENT IS AWAKE AND ALERT X3 AND ABLE TO MAKE NEEDS KNOWN. PATIENT WAS LET OF RESTRAINTS TO EAT BREAKFAST, WILL REAPPLY WHEN PATIENT FINISHES EATING.
--- NOTE | 2018-11-10 07:34 | NUR ---
NURSE NOTES: LAB CALLED TO LET ME KNOW PATIENTS HEMOGLOBIN IS 6.[address] WINTERS AND LEFT A MESSAGE, WILL UPDATE WHEN I RECEIVED A CALL BACK.
[2018-11-10 08:00] LABS: BLOOD UREA NITROGEN 44 mg/dL (7-18); CALCIUM 8.8 MG/DL (8.5-10.1); CREATININE 6.1 MG/DL (0.55-1.30)
[2018-11-10 08:15] LABS: ANION GAP 15 mmol/L (5-15); CARBON DIOXIDE 24 MMOL/L (21-32); CHLORIDE 94 MMOL/L (98-107); POTASSIUM 3.8 MMOL/L (3.5-5.1); SODIUM 133 MMOL/L (136-145)
--- NOTE | 2018-11-10 09:46 | NUR ---
NURSE NOTES: PATIENT HAS ECCHYMOSIS AND BRUISING ON BILATERAL ARMS BOTH FOREARM AND UPPER ARM, AND THE SAME WITH THE LOWER LEGS. PATIENT ALSO HAS MULTIPLE SKIN TEARS ON THE LIMBS. BRUISING AND SKIN TEARS WERE PRESENT BEFORE RESTRAINTS WERE APPLIED ON 11/09/18
[2018-11-10] MEDS: Losartan 50mg tab ORAL SCH (09:50)
[2018-11-10] MEDS: Carvedilol 12.5mg tab ORAL SCH ×2 (09:50→21:19)
[2018-11-10] MEDS: Calcium Acetate 667mg Tab ORAL SCH ×3 (09:50→18:53)
[2018-11-10] MEDS: Renvela 800mg Pkt ORAL SCH ×3 (09:50→18:53)
[2018-11-10] MEDS: Heparin 5000 units/ml inj SUBQ SCH ×2 (09:51→21:21)
--- NOTE | 2018-11-10 11:18 | Nephrology Progress Note ---
Assessment/Plan Problem List: (1) ESRD (end stage renal disease) (2) Hyperkalemia (3) Seizure disorder (4) Foot ulcer due to secondary DM (5) Anemia in chronic renal disease Assessment: worsenning Assessment Admitted for foot infection and missing HD and hyperkalemia (1) ESRD (end stage renal disease) on dialysis (2) Altered level of consciousness / Encephalopathy metabolic (3) Schizoaffective disorder, bipolar type (4) h/o Hypothyroidism (5) Anemia in chronic renal disease Also: - Cellulitis both LE - End-stage renal disease, on hemodialysis. fistula right arm - HTN / Pulmonary HTN - Diabetes type 2. Others - Morbid obesity. 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 with RN Transfuse HD 11/07 then 11/09 and 11/11 h/o refusing care and tests periodically skin care / Antibiotics / ID eval noted per consultants anti Sz med to med- surg Subjective ROS Limited/Unobtainable: No Constitutional: Reports: malaise Objective Objective Last 24 Hour Vital Signs Date Time Temp Pulse Resp B/P (MAP) Pulse Ox O2 Delivery O2 Flow Rate FiO2 11/10/18 09:50 141/58 11/10/18 09:50 64 141/58 11/10/18 09:49 64 141/58 11/10/18 08:05 Room Air 11/10/18 08:00 97.7 64 22 141/58 (85) 95 11/10/18 06:15 147/58 11/10/18 04:00 98.5 65 19 147/58 (87) 95 11/10/18 00:00 98.5 72 20 167/70 (102) 97 11/09/18 21:24 172/68 11/09/18 21:24 79 172/68 11/09/18 21:00 Room Air 11/09/18 20:00 98.8 79 20 172/68 (102) 97 11/09/18 16:00 98.0 60 18 138/77 (97) 95 11/09/18 14:41 156/84 11/09/18 13:19 140/80 11/09/18 13:18 54 140/80 11/09/18 12:00 98.0 54 18 140/80 (100) 92 Intake and Output 11/09/18 11/10/18 18:59 06:59 Intake Total 880 ml 880 ml Output Total 2000 ml Balance 880 ml -1120 ml Intake Oral 880 ml 880 ml Output Hemodialysis UF 2000 ml # Voids 4 3 # Bowel Movements 2 1 Laboratory Tests 11/10/18 05:17: White Blood Count 8.0, Red Blood Count 2.18L, Hemoglobin 6.6*L, Hematocrit 20.3L , Mean Corpuscular Volume 93, Mean Corpuscular Hemoglobin 30.4, Mean Corpuscular Hemoglobin Concent 32.7, Red Cell Distribution Width 13.9, Platelet Count 224, Mean Platelet Volume 6.7, Neutrophils (%) (Auto) , Lymphocytes (%) ( Auto) , Monocytes (%) (Auto) , Eosinophils (%) (Auto) , Basophils (%) (Auto) , Differential Total Cells Counted 100, Neutrophils % (Manual) 75, Lymphocytes % ( Manual) 13L, Monocytes % (Manual) 12H, Eosinophils % (Manual) 0, Basophils % ( Manual) 0, Band Neutrophils 0, Platelet Estimate Adequate, Platelet Morphology Normal, Hypochromasia 1+, Sodium Level 133L, Potassium Level 3.8, Chloride Level 94L, Carbon Dioxide Level 24, Anion Gap 15, Blood Urea Nitrogen 44H, Creatinine 6.1H, Estimat Glomerular Filtration Rate 7.1, Glucose Level 76, Calcium Level 8.8, Random Vancomycin Level 25.5 Height (Feet): 5 Height (Inches): 6.00 Weight (Pounds): 207 General Appearance: no apparent distress Objective no change Eamon Solis MD Nov 10, 2018 11:18
--- NOTE | 2018-11-10 11:29 | NUR ---
NURSE NOTES: HD order noted for 11/11/18. [facility] [phone] called to notify, voicemail left.
--- NOTE | 2018-11-10 12:44 | NUR ---
NURSE NOTES: RN spoke to covering physician Dr. Ceballos. RN informed that patient needs angiogram and needs to be transferred to [facility]. [facility] called, spoke to powerhouse mechanic. Per [employer] receiving physician needs to be known and type of bed needed. Covering physician notified. RN informed to manage transfer when case management is here tomorrow.
--- NOTE | 2018-11-10 13:31 | NUR ---
NURSE NOTES: ARIADNA MADE ROUNDS AND CHECKED ON PATIENT. DR ROSENTHAL ALSO GOT CONSENT FROM THE PATIENT REGARDING THE BLOOD TRANSFUSION . PATIENT ALSO GIVEN A BLOOD TRANSFUSION INFORMATION BROCHURE.
[2018-11-10] MEDS ORDERED: NS 275ml ONE ×2 (13:46→15:51)
[2018-11-10] MEDS ORDERED: Tubing IV Secondary IV ONE (13:46)
--- NOTE | 2018-11-10 13:57 | Surgery Progress Note ---
Surgery Progress Note Subjective Additional Comments no acute events Objective Last 24 Hour Vital Signs Date Time Temp Pulse Resp B/P (MAP) Pulse Ox O2 Delivery O2 Flow Rate FiO2 11/10/18 13:10 110/43 11/10/18 12:00 97.3 61 21 110/43 (65) 97 11/10/18 09:50 141/58 11/10/18 09:50 64 141/58 11/10/18 09:49 64 141/58 11/10/18 08:05 Room Air 11/10/18 08:00 97.7 64 22 141/58 (85) 95 11/10/18 06:15 147/58 11/10/18 04:00 98.5 65 19 147/58 (87) 95 11/10/18 00:00 98.5 72 20 167/70 (102) 97 11/09/18 21:24 172/68 11/09/18 21:24 79 172/68 11/09/18 21:00 Room Air 11/09/18 20:00 98.8 79 20 172/68 (102) 97 11/09/18 16:00 98.0 60 18 138/77 (97) 95 11/09/18 14:41 156/84 I&O Intake and Output 11/09/18 11/10/18 18:59 06:59 Intake Total 880 ml 880 ml Output Total 2000 ml Balance 880 ml -1120 ml Intake Oral 880 ml 880 ml Output Hemodialysis UF 2000 ml # Voids 4 3 # Bowel Movements 2 1 Dressing: saturated Wound: other Drains: other Cardiovascular: RSR Respiratory: clear Abdomen: soft, flat, non-distended Extremities: edema, no tenderness, other Laboratory Tests Test 11/10/18 05:17 White Blood Count 8.0 K/UL (4.8-10.8) Red Blood Count 2.18 M/UL (4.20-5.40) L Hemoglobin 6.6 G/DL (12.0-16.0) *L Hematocrit 20.3 % (37.0-47.0) L Mean Corpuscular Volume 93 FL (80-99) Mean Corpuscular Hemoglobin 30.4 PG (27.0-31.0) Mean Corpuscular Hemoglobin Concent 32.7 G/DL (32.0-36.0) Red Cell Distribution Width 13.9 % (11.6-14.8) Platelet Count 224 K/UL (150-450) Mean Platelet Volume 6.7 FL (6.5-10.1) Neutrophils (%) (Auto) % (45.0-75.0) Lymphocytes (%) (Auto) % (20.0-45.0) Monocytes (%) (Auto) % (1.0-10.0) Eosinophils (%) (Auto) % (0.0-3.0) Basophils (%) (Auto) % (0.0-2.0) Differential Total Cells Counted 100 Neutrophils % (Manual) 75 % (45-75) Lymphocytes % (Manual) 13 % (20-45) L Monocytes % (Manual) 12 % (1-10) H Eosinophils % (Manual) 0 % (0-3) Basophils % (Manual) 0 % (0-2) Band Neutrophils 0 % (0-8) Platelet Estimate Adequate Platelet Morphology Normal Hypochromasia 1+ Sodium Level 133 MMOL/L (136-145) L Potassium Level 3.8 MMOL/L (3.5-5.1) Chloride Level 94 MMOL/L (98-107) L Carbon Dioxide Level 24 MMOL/L (21-32) Anion Gap 15 mmol/L (5-15) Blood Urea Nitrogen 44 mg/dL (7-18) H Creatinine 6.1 MG/DL (0.55-1.30) H Estimat Glomerular Filtration Rate 7.1 mL/min (>60) Glucose Level 76 MG/DL (74-106) Calcium Level 8.8 MG/DL (8.5-10.1) Random Vancomycin Level 25.5 ug/mL Plan Problems: (1) Osteomyelitis Assessment & Plan: Position of the distal phalangeal tuft of the great toe. This could be due to osteomyelitis, chronic versus acute. Please correlate clinically. Hammertoes second through fifth rays. Old fracture fifth metatarsal Soft tissue swelling nonspecific. (2) Foot ulcer due to secondary DM Assessment & Plan: DAILY ESTIMATED NEEDS: Needs based on ESRD on HD, obese, wound 67.8kg abw 25-30 kcals/kg 3022-7613 total kcals 1.25-1.8 g protein/kg 85-122 g total protein Fluid per MD, on HD NUTRITION DIAGNOSIS: * Increased protein needs r/t renal dysfunction as evidenced by ESRD dx on HD. CURRENT DIET: RENAL, mech soft ground PO DIET RECOMMENDATIONS: RENAL/ texture per [employer] DEVELOPER ADDITIONAL RECOMMENDATIONS: * Calibrated bedscale wt for accurate CBW, obtain dry wt post HD * Monitor lytes and renal fxn * Monitor BGs closely for hypoglycemia * Monitor PO intake closely / [employer] DEVELOPER eval for appropriate texture * Rec wound eval -multiple wound photos add Woody 1pkt BID, Nephrovite x 1 (3) Lower extremity cellulitis Assessment & Plan: worsening wound as compared to prior podiatry input appreciated vascular consult pending US studies may need amputation Abx as per ID will follow with recs plain films as above thank you (4) Non compliance with medical treatment Vic Wise Nov 10, 2018 13:57
--- NOTE | 2018-11-10 15:32 | Infectious Diseases Prog Note ---
Assessment/Plan Assessment/Plan ASSESSMENT AND PLAN: 1. bilateral foot wound infection, gangrene, osteomyelitis, cellulitis, sepsis, leukocytosis, ams, pvc, doubt pna - vancomycin and zosyn - clinically improved, more alert, leukocytosis resolved - podiatry and vascular surgery f/u - wound care per surgery recs - continue treatment per Dr. Ramirez - monitor labs 2. End-stage renal disease, on hemodialysis. Continue management per Renal Medicine. 3. Anemia of chronic disease. 4. History of upper extremity graft. 5. Obesity. 6. Schizophrenia. 7. Bipolar disease. 8. Diabetes. 9. Hypertension. 10. Blood sugar, blood pressure treatment per primary. 11. Hyperlipidemia. 12. Hypothyroidism. 13. Wound care protocol and surgery. 14. Allergies are negative. 15. Social history negative. 16. Family history noncontributory. 17. MAR is noted. 18. Case discussed with RN. 19. Case discussed with Dr. Ramirez. 20. Continue treatment per primary consultants. Subjective Constitutional: Reports: fatigue; Denies: fever HEENT: Denies: congestion Respiratory: Denies: shortness of breath Cardiovascular: Denies: chest pain Gastrointestinal/Abdominal: Denies: nausea, vomiting, diarrhea Genitourinary: Reports: other - no waller, no cva pain, hd patient Neurologic: Denies: headache Psychiatric: Denies: depression Skin: Denies: rash Hematologic: Denies: bleeding Musculoskeletal: Denies: pain Allergies: Coded Allergies: No Known Allergies (Verified , 08/23/06) Objective Vital Signs Last 24 Hour Vital Signs Date Time Temp Pulse Resp B/P (MAP) Pulse Ox O2 Delivery O2 Flow Rate FiO2 11/10/18 13:10 110/43 11/10/18 12:00 97.3 61 21 110/43 (65) 97 11/10/18 09:50 141/58 11/10/18 09:50 64 141/58 11/10/18 09:49 64 141/58 11/10/18 08:05 Room Air 11/10/18 08:00 97.7 64 22 141/58 (85) 95 11/10/18 06:15 147/58 11/10/18 04:00 98.5 65 19 147/58 (87) 95 11/10/18 00:00 98.5 72 20 167/70 (102) 97 11/09/18 21:24 172/68 11/09/18 21:24 79 172/68 11/09/18 21:00 Room Air 11/09/18 20:00 98.8 79 20 172/68 (102) 97 11/09/18 16:00 98.0 60 18 138/77 (97) 95 Height (Feet): 5 Height (Inches): 6.00 Weight (Pounds): 207 General Appearance: no acute distress HEENT: normocephalic, atraumatic, anicteric, mucous membranes moist Respiratory/Chest: lungs clear, normal breath sounds, no respiratory distress, no accessory muscle use, crackles/rales, rhonchi - bilaterally, other - mostly clear bilateral, occasional rhonchi and crackles Cardiovascular: normal rate, regular rhythm, no gallop/murmur, no JVD Abdomen: normal bowel sounds, soft, non tender, no organomegaly, non distended Genitourinary: other - no waller, no cva pain Extremities: other - feet - covered Skin: no rash Neurologic/Psychiatric: zoo caretaker II-XII grossly normal, alert, responsive, other - more alert Lymphatic: no neck adenopathy Musculoskeletal: no effusion Objective Chest x-ray - 11/09/18 - FINDINGS: Lungs: Accentuation of interstitial markings. Pleural space: Unremarkable. No pneumothorax. Heart: Cardiomegaly. Mediastinum: Unremarkable. Bones joints: No acute fracture. IMPRESSION: Accentuation of interstitial markings. May be from interstitial edema and or pneumonia. There is a broader differential. x-ray - foot - IMPRESSION: Position of the distal phalangeal tuft of the great toe. This could be due to osteomyelitis, chronic versus acute. Please correlate clinically. Hammertoes second through fifth rays. Old fracture fifth metatarsal Soft tissue swelling nonspecific. Microbiology Date/Time Source Procedure Growth Status 11/06/18 23:45 Blood Blood Culture - Preliminary NO GROWTH AFTER 72 HOURS Resulted 11/07/18 01:48 Rectum - Final NO CARBAPENEM-RESISTANT ENTEROBACTERI... Complete Laboratory Tests Test 11/10/18 05:17 White Blood Count 8.0 K/UL (4.8-10.8) Red Blood Count 2.18 M/UL (4.20-5.40) L Hemoglobin 6.6 G/DL (12.0-16.0) *L Hematocrit 20.3 % (37.0-47.0) L Mean Corpuscular Volume 93 FL (80-99) Mean Corpuscular Hemoglobin 30.4 PG (27.0-31.0) Mean Corpuscular Hemoglobin Concent 32.7 G/DL (32.0-36.0) Red Cell Distribution Width 13.9 % (11.6-14.8) Platelet Count 224 K/UL (150-450) Mean Platelet Volume 6.7 FL (6.5-10.1) Neutrophils (%) (Auto) % (45.0-75.0) Lymphocytes (%) (Auto) % (20.0-45.0) Monocytes (%) (Auto) % (1.0-10.0) Eosinophils (%) (Auto) % (0.0-3.0) Basophils (%) (Auto) % (0.0-2.0) Differential Total Cells Counted 100 Neutrophils % (Manual) 75 % (45-75) Lymphocytes % (Manual) 13 % (20-45) L Monocytes % (Manual) 12 % (1-10) H Eosinophils % (Manual) 0 % (0-3) Basophils % (Manual) 0 % (0-2) Band Neutrophils 0 % (0-8) Platelet Estimate Adequate Platelet Morphology Normal Hypochromasia 1+ Sodium Level 133 MMOL/L (136-145) L Potassium Level 3.8 MMOL/L (3.5-5.1) Chloride Level 94 MMOL/L (98-107) L Carbon Dioxide Level 24 MMOL/L (21-32) Anion Gap 15 mmol/L (5-15) Blood Urea Nitrogen 44 mg/dL (7-18) H Creatinine 6.1 MG/DL (0.55-1.30) H Estimat Glomerular Filtration Rate 7.1 mL/min (>60) Glucose Level 76 MG/DL (74-106) Calcium Level 8.8 MG/DL (8.5-10.1) Random Vancomycin Level 25.5 ug/mL Current Medications Medications (Trade) Dose Ordered Sig/Gabriele Route PRN Reason Start Time Stop Time Status Last Admin Dose Admin Acetaminophen (Tylenol) 650 mg Q6H PRN ORAL Mild Pain/Temp > 100.5 11/08/18 17:00 12/07/18 16:59 Calcium Acetate (Phoslo) 667 mg THREE TIMES A DAY ORAL 11/08/18 18:00 12/07/18 12:59 11/10/18 13:10 Carvedilol (Coreg) 12.5 mg EVERY 12 HOURS ORAL 11/08/18 21:00 12/07/18 20:59 11/10/18 09:50 Clopidogrel Bisulfate (Plavix) 75 mg DAILY ORAL 11/09/18 09:00 12/08/18 08:59 11/10/18 09:49 Dextrose (Dextrose 50%) 25 ml Q30M PRN IV Hypoglycemia 11/08/18 17:15 12/07/18 10:14 Dextrose (Dextrose 50%) 50 ml Q30M PRN IV Hypoglycemia 11/08/18 17:15 12/07/18 10:14 Fluticasone/ Vilanterol (Breo Ellipta 100/25) 1 puff DAILY INH 11/09/18 09:00 12/08/18 08:59 Haloperidol Lactate (Haldol) 5 mg Q6H PRN IM Agitation 11/08/18 17:30 12/07/18 17:29 11/09/18 06:30 Heparin Sodium (Porcine) (Heparin 5000 units/ml) 5,000 units EVERY 12 HOURS SUBQ 11/08/18 21:00 12/07/18 20:59 11/09/18 21:26 Hydralazine HCl (Apresoline) 25 mg Q8HR ORAL 11/08/18 22:00 12/07/18 13:59 11/10/18 13:10 Insulin Aspart (NovoLOG) BEFORE MEALS AND HS SUBQ 11/08/18 18:00 12/08/18 17:59 11/10/18 12:32 Levetiracetam (Keppra) 1,000 mg Q12HR ORAL 11/08/18 21:00 12/07/18 17:59 11/10/18 09:50 Levothyroxine Sodium (Synthroid) 75 mcg DAILY@0630 ORAL 11/09/18 06:30 12/08/18 06:29 11/10/18 06:15 Losartan Potassium (Cozaar) 50 mg DAILY ORAL 11/09/18 09:00 12/08/18 08:59 11/10/18 09:50 Nifedipine (Procardia XL) 60 mg DAILY ORAL 11/09/18 09:00 12/08/18 08:59 11/10/18 09:49 Piperacillin Sod/ Tazobactam Sod 2.25 gm/Dextrose 55 ml @ 110 mls/hr Q8HR IV 11/08/18 22:00 11/12/18 11:59 11/10/18 13:11 Pravastatin Sodium (Pravachol) 40 mg BEDTIME ORAL 11/08/18 21:00 12/07/18 20:59 11/09/18 21:29 Quetiapine Fumarate (SEROquel) 300 mg QHS ORAL 11/08/18 21:00 12/07/18 20:59 11/09/18 21:24 Sevelamer Carbonate (Renvela) 800 mg THREE TIMES A DAY ORAL 11/08/18 18:00 12/07/18 12:59 11/10/18 13:11 Vancomycin HCl (Vanco rx to dose) 1 ea DAILY PRN MISC Per rx protocol 11/08/18 17:30 12/08/18 17:29 Nehal Nolasco MD Nov 10, 2018 15:32
--- NOTE | 2018-11-10 16:19 | NUR ---
NURSE NOTES: PRBC TRANSFUSION STARTED AT 1539. PRE-TRANSFUSION VITALS ARE: TEMP 97.3, BP 110/58, HEART RATE 65. VITALS TAKEN AGAIN AT 1554: TEMP 97.7, BP 115/63, HEART RATE 63. PATIENT ALERT AND ABLE TO MAKE NEEDS KNOWN. PATIENT DENIES SHORTNESS OF BREATH, BACKPAIN, CHEST PAIN. PATIENT REMAINS STABLE AFTER 15 MINUTES. WILL CONTINUE TO MONITOR PATIENT.
--- NOTE | 2018-11-10 17:40 | NUR ---
NURSE NOTES: PATIENT MANAGED TO GET OUT OF RESTRAINTS MULTIPLE TIMES. BEREAVEMENT COUNSELOR OBSERVED PATIENT ALMOST OUT OF BED. PATIENT OBSERVED TRYING TO REMOVE IV LINE. PATIENT REMOVED MULTIPLE OPTIFOAM DRESSINGS FROM OPEN SKIN TEARS. TOLD PATIENT NOT TO SCRATCH SKIN IT CAN CAUSE INFECTION, REPEATED ATTEMPTS TO EXPLAIN TO PATIENT THIS BUT PATIENT CONTINUES TO SCRATCH. WILL CONTINUE TO MONITOR PATIENT.
--- NOTE | 2018-11-10 18:06 | NUR ---
NURSE NOTES: TRANSFUSION FINISHED AT 1800, VITAL SIGNS STABLE AND ENTERED INTO EMAR.
--- NOTE | 2018-11-10 19:33 | NUR ---
HAND-OFF: Report given to CHEPE ELLIOTT.
[2018-11-10] MEDS: Haloperidol 5mg/ml Inj IM PRN (19:48)
--- NOTE | 2018-11-10 21:49 | General Progress Note ---
Assessment/Plan Problem List: (1) Hyperkalemia ICD Codes: E87.5 - Hyperkalemia SNOMED: 56850869 (2) Encephalopathy ICD Codes: G93.40 - Encephalopathy, unspecified SNOMED: 41694978 (3) ESRD (end stage renal disease) ICD Codes: N18.6 - End stage renal disease SNOMED: 86240139 (4) Osteomyelitis ICD Codes: M86.9 - Osteomyelitis, unspecified SNOMED: 49072472 (5) Bradycardia ICD Codes: R00.1 - Bradycardia, unspecified SNOMED: 29838435 (6) Anemia in chronic renal disease ICD Codes: N18.9 - Chronic kidney disease, unspecified; D63.1 - Anemia in chronic kidney disease SNOMED: 559646880, 572438441 (7) ESRD (end stage renal disease) on dialysis ICD Codes: N18.6 - End stage renal disease; Z99.2 - Dependence on renal dialysis SNOMED: 717324371 (8) Obesity (BMI 30-39.9) ICD Codes: E66.9 - Obesity, unspecified SNOMED: 546392329, 250057128 (9) Lower extremity cellulitis ICD Codes: L03.119 - Cellulitis of unspecified part of limb SNOMED: 172306728 (10) Acute metabolic encephalopathy ICD Codes: G93.41 - Metabolic encephalopathy SNOMED: 07448094, 035241090 (11) Altered level of consciousness ICD Codes: R40.4 - Transient alteration of awareness SNOMED: 5391878 Status: stable, other - r/o sepsis Assessment/Plan: 57 year old female with ESRD, mental illness including schizophrenia and bipolar disorder, peripheral vascular disease and history of non compliance with treatment sent to the hospital from [facility] for AMS, refusing HD and right foot great toe wound/cellulitis and right 2nd toe gangrene. 1. r/o sepsis. Has leukocytosis and AMS (which could be due to infection (R foot 2nd toe gangrene/ischemia, R foot great toe wound/Osteomyelitis) vs. missed HD) essentially acute toxic metabolic encephalopathy. -Zonyn and vancomycin -ID, surgery and podiatry evaluation requested. May need an amputation. Arterial studies of lower extremities to be repeated. Vascular consult pending -follow up cultures and labs -Continue Plavix 2. ESRD -Urgent HD done -Nephrology consult with Dr. Solis -Monitor electrolytes -Phosphate binders 3. Mental health disorder- Schizophrenia and bipolar. -continue -Dr. Beckett from psychiatry to see -Continue Seroquel 300mg QHS 4. HTN Continue Losartan, carvedilol, hydralazine, Nifedipine 5. DM- controlled. HbA1c 4.5. Continue insulin via sliding scale as needed 6. Seizure disorder. Continue keppra 7. COPD. without exacerbation. Continue Breo 8. Hypothyroidism. Continue Levothyroxine. Increase dose from 50 to 75. TSH7.5 on 11/01 vte ppx: heparin subq GI ppx, not indicated Code: full code I spent 36 minutes on this encounter. > 50% on care coordination and counselling. I also spent an additional 33 minutes reviewing medical records including labs, imaging, prior documentation Time of this note may not reflect time of encounter Subjective Date patient seen: Nov 09, 2018 Constitutional: Denies: no symptoms, chills, diaphoresis, fever, malaise, weakness, other HEENT: Denies: eye pain, blurred vision, tearing, double vision, ear pain, ear discharge, nose pain, nose congestion, throat pain, throat swelling, mouth pain , mouth swelling, other Cardiovascular: Denies: chest pain, edema, irregular heart rate, lightheadedness, palpitations, syncope, other Respiratory: Denies: cough, orthopnea, shortness of breath, SOB with excertion , SOB at rest, sputum, stridor, wheezing, other Gastrointestinal/Abdominal: Denies: abdomen distended, abdominal pain, black stools, tarry stools, blood in stool, constipated, diarrhea, difficulty swallowing, nausea, poor appetite, poor fluid intake, rectal bleeding, vomiting , other Genitourinary: Denies: burning, discharge, frequency, flank pain, hematuria, incontinence, pain, urgency, other Neurologic/Psychiatric: Denies: anxiety, depressed, emotional problems, headache, numbness, paresthesia, pre-existing deficit, seizure, tingling, tremors, weakness, other Endocrine: Denies: excessive sweating, flushing, intolerance to cold, intolerance to heat, increased hunger, increased thirst, increased urine, unexplained weight gain, unexplained weight loss, other Hematologic/Lymphatic: Denies: anemia, easy bleeding, easy bruising, other Allergies: Coded Allergies: No Known Allergies (Verified , 7/5/07) Subjective No acute events overnight, patient's pain under control. Alert and oriented, no agitation. Awaiting vascular surgery recommendations Objective Last 24 Hour Vital Signs Date Time Temp Pulse Resp B/P (MAP) Pulse Ox O2 Delivery O2 Flow Rate FiO2 11/10/18 21:19 62 184/67 11/10/18 21:18 184/67 11/10/18 20:00 98.1 62 18 184/67 (106) 95 11/10/18 18:05 98.0 64 20 115/64 (81) 96 11/10/18 16:12 97.7 63 20 115/63 (80) 98 11/10/18 13:10 110/43 11/10/18 12:00 97.3 61 21 110/43 (65) 97 11/10/18 09:50 141/58 11/10/18 09:50 64 141/58 11/10/18 09:49 64 141/58 11/10/18 08:05 Room Air 11/10/18 08:00 97.7 64 22 141/58 (85) 95 11/10/18 06:15 147/58 11/10/18 04:00 98.5 65 19 147/58 (87) 95 11/10/18 00:00 98.5 72 20 167/70 (102) 97 Intake and Output 11/09/18 11/10/18 19:00 07:00 Intake Total 880 ml 880 ml Output Total 2000 ml Balance 880 ml -1120 ml Intake Oral 880 ml 880 ml Hemodialysis UF 2000 ml # Voids 4 3 # Bowel Movements 2 1 Laboratory Tests 11/10/18 05:17: White Blood Count 8.0, Red Blood Count 2.18L, Hemoglobin 6.6*L, Hematocrit 20.3L , Mean Corpuscular Volume 93, Mean Corpuscular Hemoglobin 30.4, Mean Corpuscular Hemoglobin Concent 32.7, Red Cell Distribution Width 13.9, Platelet Count 224, Mean Platelet Volume 6.7, Neutrophils (%) (Auto) , Lymphocytes (%) ( Auto) , Monocytes (%) (Auto) , Eosinophils (%) (Auto) , Basophils (%) (Auto) , Differential Total Cells Counted 100, Neutrophils % (Manual) 75, Lymphocytes % ( Manual) 13L, Monocytes % (Manual) 12H, Eosinophils % (Manual) 0, Basophils % ( Manual) 0, Band Neutrophils 0, Platelet Estimate Adequate, Platelet Morphology Normal, Hypochromasia 1+, Sodium Level 133L, Potassium Level 3.8, Chloride Level 94L, Carbon Dioxide Level 24, Anion Gap 15, Blood Urea Nitrogen 44H, Creatinine 6.1H, Estimat Glomerular Filtration Rate 7.1, Glucose Level 76, Calcium Level 8.8, Random Vancomycin Level 25.5 Height (Feet): 5 Height (Inches): 6.00 Weight (Pounds): 207 General Appearance: WD/WN, no apparent distress, alert EENT: PERRL/EOMI Neck: non-tender, normal alignment, supple Cardiovascular: normal peripheral pulses, normal rate, regular rhythm, no JVD Respiratory/Chest: chest wall non-tender, lungs clear, normal breath sounds Abdomen: normal bowel sounds, non tender, soft Edema: other - Bilateral feet wrapped in guaze, right 2nd toe gangrenous wound non-draining, no pain on palpation Neurologic: cardiac care unit nurse II-XII grossly normal, no motor/sensory deficits, abnormal gait , alert Jose Armando Ceballos D.O. Nov 10, 2018 21:49
--- NOTE | 2018-11-10 22:00 | General Progress Note ---
Assessment/Plan Problem List: (1) Hyperkalemia ICD Codes: E87.5 - Hyperkalemia SNOMED: 46732928 (2) Encephalopathy ICD Codes: G93.40 - Encephalopathy, unspecified SNOMED: 56186554 (3) ESRD (end stage renal disease) ICD Codes: N18.6 - End stage renal disease SNOMED: 37913816 (4) Osteomyelitis ICD Codes: M86.9 - Osteomyelitis, unspecified SNOMED: 55357175 (5) Bradycardia ICD Codes: R00.1 - Bradycardia, unspecified SNOMED: 50845210 (6) Anemia in chronic renal disease ICD Codes: N18.9 - Chronic kidney disease, unspecified; D63.1 - Anemia in chronic kidney disease SNOMED: 055361922, 880295681 (7) ESRD (end stage renal disease) on dialysis ICD Codes: N18.6 - End stage renal disease; Z99.2 - Dependence on renal dialysis SNOMED: 717583305 (8) Obesity (BMI 30-39.9) ICD Codes: E66.9 - Obesity, unspecified SNOMED: 259631980, 646512291 (9) Lower extremity cellulitis ICD Codes: L03.119 - Cellulitis of unspecified part of limb SNOMED: 260624278 (10) Acute metabolic encephalopathy ICD Codes: G93.41 - Metabolic encephalopathy SNOMED: 94164789, 908467694 (11) Altered level of consciousness ICD Codes: R40.4 - Transient alteration of awareness SNOMED: 3711561 Status: stable, other - r/o sepsis Assessment/Plan: 57 year old female with ESRD, mental illness including schizophrenia and bipolar disorder, peripheral vascular disease and history of non compliance with treatment sent to the hospital from [facility] for AMS, refusing HD and right foot great toe wound/cellulitis and right 2nd toe gangrene. 1. r/o sepsis. Has leukocytosis and AMS (which could be due to infection (R foot 2nd toe gangrene/ischemia, R foot great toe wound/Osteomyelitis)also acute toxic metabolic encephalopathy. - IMPROVED -Zosyn and vancomycin -ID, surgery and podiatry evaluation requested. May need an amputation. Arterial studies of lower extremities to be repeated. Vascular consult recommends LE angio. Cannot be done at [facility]. Needs transfer out. Unable to initiate process as no continuous pillowcase cutter available. Patient updated. All questions answered. -follow up cultures and labs -Continue Plavix #Anemia, likely of chronic disease and ESRD. Hemoglobin 6.6 today - explained to patient risks and benefits of blood transfusion. A&O x3. Able to consent. All questions answered -transfuse 1 unit PRBC today -keep Hgb >7, transfuse as needed # ESRD -Urgent HD done -Nephrology consult with Dr. Solis -Monitor electrolytes -Phosphate binders # Mental health disorder- Schizophrenia and bipolar. -continue -Dr. Beckett from psychiatry to see -Continue Seroquel 300mg QHS # HTN Continue Losartan, carvedilol, hydralazine, Nifedipine # DM- controlled. HbA1c 4.5. Continue insulin via sliding scale as needed # Seizure disorder. Continue keppra 7. COPD. without exacerbation. Continue Breo 8. Hypothyroidism. Continue Levothyroxine. Increase dose from 50 to 75. TSH7.5 on 11/01 vte ppx: heparin subq GI ppx, not indicated Code: full code I spent 37 minutes on this encounter. > 50% on care coordination and counselling. Time of this note may not reflect time of encounter Subjective Date patient seen: Nov 10, 2018 Constitutional: Denies: no symptoms, chills, diaphoresis, fever, malaise, weakness, other HEENT: Denies: eye pain, blurred vision, tearing, double vision, ear pain, ear discharge, nose pain, nose congestion, throat pain, throat swelling, mouth pain , mouth swelling, other Cardiovascular: Denies: no symptoms, chest pain, edema, irregular heart rate, lightheadedness, palpitations, syncope, other Respiratory: Denies: cough, orthopnea, shortness of breath, SOB with excertion , SOB at rest, sputum, stridor, wheezing, other Gastrointestinal/Abdominal: Denies: abdomen distended, abdominal pain, black stools, tarry stools, blood in stool, constipated, diarrhea, difficulty swallowing, nausea, poor appetite, poor fluid intake, rectal bleeding, vomiting , other Genitourinary: Denies: burning, discharge, frequency, flank pain, hematuria, incontinence, pain, urgency, other Neurologic/Psychiatric: Denies: anxiety, depressed, emotional problems, headache, numbness, paresthesia, pre-existing deficit, seizure, tingling, tremors, weakness, other Endocrine: Denies: excessive sweating, flushing, intolerance to cold, intolerance to heat, increased hunger, increased thirst, increased urine, unexplained weight gain, unexplained weight loss, other Hematologic/Lymphatic: Denies: anemia, easy bleeding, easy bruising, other Allergies: Coded Allergies: No Known Allergies (Verified , 08/23/06) Subjective No acute events overnight, patient's pain under control. Hemoglobin 6.6, but patient asymptomatic. No evidence of bleeding. Denies SOB, chest pain or palpitations. Alert and oriented, no agitation. Vascular surgery recommends LE angiogram. Needs transfer to [facility] Objective Last 24 Hour Vital Signs Date Time Temp Pulse Resp B/P (MAP) Pulse Ox O2 Delivery O2 Flow Rate FiO2 11/10/18 21:19 62 184/67 11/10/18 21:18 184/67 11/10/18 20:00 98.1 62 18 184/67 (106) 95 11/10/18 18:05 98.0 64 20 115/64 (81) 96 11/10/18 16:12 97.7 63 20 115/63 (80) 98 11/10/18 13:10 110/43 11/10/18 12:00 97.3 61 21 110/43 (65) 97 11/10/18 09:50 141/58 11/10/18 09:50 64 141/58 11/10/18 09:49 64 141/58 11/10/18 08:05 Room Air 11/10/18 08:00 97.7 64 22 141/58 (85) 95 11/10/18 06:15 147/58 11/10/18 04:00 98.5 65 19 147/58 (87) 95 11/10/18 00:00 98.5 72 20 167/70 (102) 97 Intake and Output 11/09/18 11/10/18 19:00 07:00 Intake Total 880 ml 880 ml Output Total 2000 ml Balance 880 ml -1120 ml Intake Oral 880 ml 880 ml Hemodialysis UF 2000 ml # Voids 4 3 # Bowel Movements 2 1 Laboratory Tests 11/10/18 05:17: White Blood Count 8.0, Red Blood Count 2.18L, Hemoglobin 6.6*L, Hematocrit 20.3L , Mean Corpuscular Volume 93, Mean Corpuscular Hemoglobin 30.4, Mean Corpuscular Hemoglobin Concent 32.7, Red Cell Distribution Width 13.9, Platelet Count 224, Mean Platelet Volume 6.7, Neutrophils (%) (Auto) , Lymphocytes (%) ( Auto) , Monocytes (%) (Auto) , Eosinophils (%) (Auto) , Basophils (%) (Auto) , Differential Total Cells Counted 100, Neutrophils % (Manual) 75, Lymphocytes % ( Manual) 13L, Monocytes % (Manual) 12H, Eosinophils % (Manual) 0, Basophils % ( Manual) 0, Band Neutrophils 0, Platelet Estimate Adequate, Platelet Morphology Normal, Hypochromasia 1+, Sodium Level 133L, Potassium Level 3.8, Chloride Level 94L, Carbon Dioxide Level 24, Anion Gap 15, Blood Urea Nitrogen 44H, Creatinine 6.1H, Estimat Glomerular Filtration Rate 7.1, Glucose Level 76, Calcium Level 8.8, Random Vancomycin Level 25.5 Height (Feet): 5 Height (Inches): 6.00 Weight (Pounds): 207 General Appearance: WD/WN, no apparent distress, alert EENT: PERRL/EOMI Neck: non-tender Cardiovascular: normal peripheral pulses, normal rate, regular rhythm Respiratory/Chest: chest wall non-tender, lungs clear, normal breath sounds Abdomen: normal bowel sounds, non tender, soft Extremities: other - unchanged from prior. bilateral feet wrapped, multiple gangrenous toes. right 2nd foot gangrenous toe non-draining. 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 Nov 10, 2018 21:59
[2018-11-11] VITALS: BP 163/72
[2018-11-11 04:00] VITALS: BP 186/98
[2018-11-11] MEDS: Haloperidol 5mg/ml Inj IM PRN (04:16)
[2018-11-11] MEDS: HydrALAZINE 25mg tab ORAL SCH ×3 (06:17→21:28)
[2018-11-11] MEDS: Piperacillin/Tazobactam 2.25 GM in D5W 55 ML IV SCH ×3 (06:17→21:27)
[2018-11-11] MEDS: NovoLOG Insulin Flexpen SUBQ SCH ×4 (06:27→21:30)
--- NOTE | 2018-11-11 07:27 | NUR ---
HAND-OFF: Report given to CHEPE Mckeon.
--- NOTE | 2018-11-11 07:30 | NUR ---
NURSE NOTES: Received pt from CHEPE ELLIOTT. Pt is confused and orient x2. Pt is in RA, no SOB or acute respiratory distress noted. pt has intact iv access CATALINA 22G SL. A PATIENT COORDINATOR is helping pt to eat breakfast. pt has dialysis today. All needs attended, bed is locked and is in the lowest position. call light within easy reach. will continue to monitor.
[2018-11-11 07:46] LABS: BASOPHILS % (AUTO) 1.1 % (0.0-2.0); EOSINOPHILS % (AUTO) 0.9 % (0.0-3.0); HEMATOCRIT 24.6 % (37.0-47.0); HEMOGLOBIN 8.4 G/DL (12.0-16.0); LYMPHOCYTES % (AUTO) 9.1 % (20.0-45.0); MEAN CORPUSCULAR VOLUME 90 FL (80-99); PLATELET COUNT 196 K/UL (150-450); RED BLOOD COUNT 2.74 M/UL (4.20-5.40); RED CELL DISTRIBUTION WIDTH 14.3 % (11.6-14.8); WHITE BLOOD COUNT 8.3 K/UL (4.8-10.8)
[2018-11-11 08:00] VITALS: BP 160/88
[2018-11-11 08:06] LABS: ANION GAP 14 mmol/L (5-15); BLOOD UREA NITROGEN 51 mg/dL (7-18); CALCIUM 9.2 MG/DL (8.5-10.1); CARBON DIOXIDE 23 MMOL/L (21-32); CHLORIDE 92 MMOL/L (98-107); CREATININE 6.9 MG/DL (0.55-1.30); POTASSIUM 4.3 MMOL/L (3.5-5.1); SODIUM 129 MMOL/L (136-145)
[2018-11-11] MEDS: Losartan 50mg tab ORAL SCH (09:38)
[2018-11-11] MEDS: Carvedilol 12.5mg tab ORAL SCH ×2 (09:39→21:28)
[2018-11-11] MEDS: Renvela 800mg Pkt ORAL SCH ×3 (09:40→17:06)
[2018-11-11] MEDS: Calcium Acetate 667mg Tab ORAL SCH ×3 (09:40→17:06)
[2018-11-11] MEDS: Heparin 5000 units/ml inj SUBQ SCH ×2 (09:49→21:29)
[2018-11-11] MEDS: Breo Ellipta 100/25mcg - 14 dose INH SCH (10:39)
--- NOTE | 2018-11-11 11:54 | NUR ---
*-* INSURANCE *-* UPDATED CLINICALS AND REVIEWS HAVE BEEN FAXED TO: [employer] FAX ALL CLINICALS TO: [phone]
[2018-11-11 12:00] VITALS: BP 156/84
--- NOTE | 2018-11-11 12:15 | Nephrology Progress Note ---
Assessment/Plan Problem List: (1) ESRD (end stage renal disease) (2) Hyperkalemia (3) Seizure disorder (4) Foot ulcer due to secondary DM (5) Anemia in chronic renal disease Assessment: worsenning Assessment Admitted for foot infection and missing HD and hyperkalemia (1) ESRD (end stage renal disease) on dialysis (2) Altered level of consciousness / Encephalopathy metabolic (3) Schizoaffective disorder, bipolar type (4) h/o Hypothyroidism (5) Anemia in chronic renal disease Also: - Cellulitis both LE - End-stage renal disease, on hemodialysis. fistula right arm - HTN / Pulmonary HTN - Diabetes type 2. Others - Morbid obesity. 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- transfused one unit 11/10 HD 11/07 then 11/09 and 11/11 h/o refusing care and tests periodically skin care / Antibiotics / ID eval noted per consultants anti Sz med to med- surg Subjective ROS Limited/Unobtainable: No Interval Events/Complaints patient claims she was dialysed 2 weeks ago, when she was done 3 days ago Constitutional: Reports: malaise Objective Objective Last 24 Hour Vital Signs Date Time Temp Pulse Resp B/P (MAP) Pulse Ox O2 Delivery O2 Flow Rate FiO2 11/11/18 09:40 60 160/88 11/11/18 09:39 60 160/88 11/11/18 09:38 160/88 11/11/18 09:00 Room Air 11/11/18 08:00 98.3 60 18 160/88 (112) 96 11/11/18 06:17 164/75 11/11/18 04:00 98.0 57 18 186/98 (127) 94 11/11/18 00:00 98.2 59 20 163/72 (102) 96 11/10/18 21:19 62 184/67 11/10/18 21:18 184/67 11/10/18 21:00 Room Air 11/10/18 20:00 98.1 62 18 184/67 (106) 95 11/10/18 18:05 98.0 64 20 115/64 (81) 96 11/10/18 16:12 97.7 63 20 115/63 (80) 98 11/10/18 13:10 110/43 Intake and Output 11/10/18 11/11/18 19:00 07:00 Output Total 900 ml Balance -900 ml Output Urine Total 900 ml # Voids 2 # Bowel Movements 1 Laboratory Tests 11/11/18 07:15: White Blood Count 8.3, Red Blood Count 2.74L, Hemoglobin 8.4L, Hematocrit 24.6L , Mean Corpuscular Volume 90, Mean Corpuscular Hemoglobin 30.5, Mean Corpuscular Hemoglobin Concent 34.0, Red Cell Distribution Width 14.3, Platelet Count 196, Mean Platelet Volume 6.4L, Neutrophils (%) (Auto) 80.0H, Lymphocytes (%) (Auto) 9.1L, Monocytes (%) (Auto) 9.0, Eosinophils (%) (Auto) 0.9, Basophils (%) (Auto) 1.1, Sodium Level 129L, Potassium Level 4.3, Chloride Level 92L, Carbon Dioxide Level 23, Anion Gap 14, Blood Urea Nitrogen 51H, Creatinine 6.9H, Estimat Glomerular Filtration Rate 6.2, Glucose Level 92, Calcium Level 9.2 Height (Feet): 5 Height (Inches): 6.00 Weight (Pounds): 216 General Appearance: no apparent distress, lethargic Cardiovascular: normal rate Abdomen: distended Objective no change Eamon Solis MD Nov 11, 2018 12:15
--- NOTE | 2018-11-11 13:19 | Surgery Progress Note ---
Surgery Progress Note Subjective Additional Comments Patient seen and examined at bedside. States she is doing well. Has no complaints. Seemingly comfortable. Labs noted. Exam stable. Objective Last 24 Hour Vital Signs Date Time Temp Pulse Resp B/P (MAP) Pulse Ox O2 Delivery O2 Flow Rate FiO2 11/11/18 12:00 98.6 60 18 156/84 (108) 97 11/11/18 09:40 60 160/88 11/11/18 09:39 60 160/88 11/11/18 09:38 160/88 11/11/18 09:00 Room Air 11/11/18 08:00 98.3 60 18 160/88 (112) 96 11/11/18 06:17 164/75 11/11/18 04:00 98.0 57 18 186/98 (127) 94 11/11/18 00:00 98.2 59 20 163/72 (102) 96 11/10/18 21:19 62 184/67 11/10/18 21:18 184/67 11/10/18 21:00 Room Air 11/10/18 20:00 98.1 62 18 184/67 (106) 95 11/10/18 18:05 98.0 64 20 115/64 (81) 96 11/10/18 16:12 97.7 63 20 115/63 (80) 98 I&O Intake and Output 11/10/18 11/11/18 18:59 06:59 Output Total 900 ml Balance -900 ml Output Urine Total 900 ml # Voids 2 # Bowel Movements 1 Dressing: dry Wound: other Drains: other Cardiovascular: RSR Respiratory: clear Abdomen: soft, non-tender, present bowel sounds Extremities: cyanosis, other Laboratory Tests Test 11/11/18 07:15 White Blood Count 8.3 K/UL (4.8-10.8) Red Blood Count 2.74 M/UL (4.20-5.40) L Hemoglobin 8.4 G/DL (12.0-16.0) L Hematocrit 24.6 % (37.0-47.0) L Mean Corpuscular Volume 90 FL (80-99) Mean Corpuscular Hemoglobin 30.5 PG (27.0-31.0) Mean Corpuscular Hemoglobin Concent 34.0 G/DL (32.0-36.0) Red Cell Distribution Width 14.3 % (11.6-14.8) Platelet Count 196 K/UL (150-450) Mean Platelet Volume 6.4 FL (6.5-10.1) L Neutrophils (%) (Auto) 80.0 % (45.0-75.0) H Lymphocytes (%) (Auto) 9.1 % (20.0-45.0) L Monocytes (%) (Auto) 9.0 % (1.0-10.0) Eosinophils (%) (Auto) 0.9 % (0.0-3.0) Basophils (%) (Auto) 1.1 % (0.0-2.0) Sodium Level 129 MMOL/L (136-145) L Potassium Level 4.3 MMOL/L (3.5-5.1) Chloride Level 92 MMOL/L (98-107) L Carbon Dioxide Level 23 MMOL/L (21-32) Anion Gap 14 mmol/L (5-15) Blood Urea Nitrogen 51 mg/dL (7-18) H Creatinine 6.9 MG/DL (0.55-1.30) H Estimat Glomerular Filtration Rate 6.2 mL/min (>60) Glucose Level 92 MG/DL (74-106) Calcium Level 9.2 MG/DL (8.5-10.1) Plan Problems: (1) Osteomyelitis Assessment & Plan: Position of the distal phalangeal tuft of the great toe. This could be due to osteomyelitis, chronic versus acute. Please correlate clinically. Hammertoes second through fifth rays. Old fracture fifth metatarsal Soft tissue swelling nonspecific. (2) Foot ulcer due to secondary DM Assessment & Plan: DAILY ESTIMATED NEEDS: Needs based on ESRD on HD, obese, wound 67.8kg abw 25-30 kcals/kg 0567-0902 total kcals 1.25-1.8 g protein/kg 85-122 g total protein Fluid per MD, on HD NUTRITION DIAGNOSIS: * Increased protein needs r/t renal dysfunction as evidenced by ESRD dx on HD. CURRENT DIET: RENAL, mech soft ground PO DIET RECOMMENDATIONS: RENAL/ texture per SHALE PROCESSING TECHNICIAN ADDITIONAL RECOMMENDATIONS: * Calibrated bedscale wt for accurate CBW, obtain dry wt post HD * Monitor lytes and renal fxn * Monitor BGs closely for hypoglycemia * Monitor PO intake closely / SHALE PROCESSING TECHNICIAN eval for appropriate texture * Rec wound eval -multiple wound photos add Woody 1pkt BID, Nephrovite x 1 (3) Lower extremity cellulitis Assessment & Plan: worsening wound as compared to prior podiatry input appreciated vascular consult pending US studies may need amputation Abx as per ID will follow with recs plain films as above thank you (4) Non compliance with medical treatment Vic Wise Nov 11, 2018 13:19
--- NOTE | 2018-11-11 15:59 | NUR ---
RD ASSESSMENT & RECOMMENDATIONS SEE CARE ACTIVITY FOR COMPLETE ASSESSMENT DAILY ESTIMATED NEEDS: Needs based on ESRD on HD, obese, wound 67.8kg abw 25-30 kcals/kg 1342-0881 total kcals 1.25-1.8 g protein/kg 85-122 g total protein Fluid per MD, on HD mL/kg - total fluid mLs NUTRITION DIAGNOSIS: * Increased protein needs r/t renal dysfunction, wound healing as evidenced by ESRD dx on HD, admitted w/ OM of Rt great toe, BL diabetic foot ulcer. CURRENT DIET:RENAL, mech soft ground PO DIET RECOMMENDATIONS: RENAL+ CCHO MED/ texture per PERSONAL SHOPPER ADDITIONAL RECOMMENDATIONS: * Calibrated bedscale wt for accurate CBW, obtain dry wt post HD * Monitor lytes and renal fxn (check f/up phos level) * Consider PERSONAL SHOPPER eval for appropriate texture * Wound healing: add Woody 1pkt BID, Nephrovite x 1 . . .
[2018-11-11 16:00] VITALS: BP 107/68
--- NOTE | 2018-11-11 19:05 | General Progress Note ---
Assessment/Plan Status: stable, other - r/o sepsis Assessment/Plan: 57 year old female with ESRD, mental illness including schizophrenia and bipolar disorder, peripheral vascular disease and history of non compliance with treatment sent to the hospital from nursing facility for AMS, refusing HD and right foot great toe wound/cellulitis and right 2nd toe gangrene. 1. sepsis. Has leukocytosis and AMS (which could be due to infection (R foot 2nd toe gangrene/ischemia, R foot great toe wound/Osteomyelitis) vs. missed HD) essentially acute toxic metabolic encephalopathy. -Zonyn and vancomycin, wbc trending down -ID, surgery and podiatry evaluation requested. May need an amputation. Arterial studies of lower extremities to be repeated. Vascular consult. Needs to be transferred to [facility] for angio. D/W Dr. Escamilla and Dr. Martinez -follow up cultures and labs -Continue Plavix 2. ESRD -Urgent HD done -Nephrology consult with Dr. Solis -Monitor electrolytes -Phosphate binders 3. Mental health disorder- Schizophrenia and bipolar. -continue -Dr. Beckett from psychiatry to see -Continue Seroquel 300mg QHS 4. HTN Continue Losartan, carvedilol, hydralazine, Nifedipine 5. DM- controlled. HbA1c 4.5. Continue insulin via sliding scale as needed 6. Seizure disorder. Continue keppra 7. COPD. without exacerbation. Continue Breo 8. Hypothyroidism. Continue Levothyroxine. Increase dose from 50 to 75. TSH7.5 on 11/01 vte ppx: heparin subq GI ppx, not indicated Code: full code I spent 40 minutes on this encounter. > 50% on care coordination and counselling. Time of this note may not reflect time of encounter Subjective Date patient seen: Nov 11, 2018 ROS Limited/Unobtainable: Yes Allergies: Coded Allergies: No Known Allergies (Verified , 08/23/06) Subjective poor historian unable to obtain ROS due to mental status stable no acute events wbc trending down She is more awake Objective Last 24 Hour Vital Signs Date Time Temp Pulse Resp B/P (MAP) Pulse Ox O2 Delivery O2 Flow Rate FiO2 11/11/18 16:00 98.3 66 20 107/68 (81) 97 11/11/18 14:00 100/53 11/11/18 12:00 98.6 60 18 156/84 (108) 97 11/11/18 09:40 60 160/88 11/11/18 09:39 60 160/88 11/11/18 09:38 160/88 11/11/18 09:00 Room Air 11/11/18 08:00 98.3 60 18 160/88 (112) 96 11/11/18 06:17 164/75 11/11/18 04:00 98.0 57 18 186/98 (127) 94 11/11/18 00:00 98.2 59 20 163/72 (102) 96 11/10/18 21:19 62 184/67 11/10/18 21:18 184/67 11/10/18 21:00 Room Air 11/10/18 20:00 98.1 62 18 184/67 (106) 95 Intake and Output 11/10/18 11/11/18 18:59 06:59 Output Total 900 ml Balance -900 ml Output Urine Total 900 ml # Voids 2 # Bowel Movements 1 Laboratory Tests 11/11/18 07:15: White Blood Count 8.3, Red Blood Count 2.74L, Hemoglobin 8.4L, Hematocrit 24.6L , Mean Corpuscular Volume 90, Mean Corpuscular Hemoglobin 30.5, Mean Corpuscular Hemoglobin Concent 34.0, Red Cell Distribution Width 14.3, Platelet Count 196, Mean Platelet Volume 6.4L, Neutrophils (%) (Auto) 80.0H, Lymphocytes (%) (Auto) 9.1L, Monocytes (%) (Auto) 9.0, Eosinophils (%) (Auto) 0.9, Basophils (%) (Auto) 1.1, Sodium Level 129L, Potassium Level 4.3, Chloride Level 92L, Carbon Dioxide Level 23, Anion Gap 14, Blood Urea Nitrogen 51H, Creatinine 6.9H, Estimat Glomerular Filtration Rate 6.2, Glucose Level 92, Calcium Level 9.2 11/11/18 18:15: Random Vancomycin Level [Pending] Height (Feet): 5 Height (Inches): 6.00 Weight (Pounds): 216 Objective General: Awake, disheveled, obese HEENT: PERRL, no jvd, dry mm Cardiovascular: RRR. S1S2. No m/r/g, graft in the right upper extremity Lung: CTA bl, no crackles or wheezing Abdomen: Abdomen is soft, nondistended. Nontender, obese Musculoskeletal: moves all extremities, normal tone Neuro: Awake, oriented to place and self but not time. grossly normal Skin: Multiple wounds over the lower and upper extremities including the left heel, multiple toes, right 2nd toe gangrene, right great toe wound Diego Ramirez M.D. Nov 11, 2018 19:05
--- NOTE | 2018-11-11 19:40 | NUR ---
HAND-OFF: Report given to
--- NOTE | 2018-11-11 19:52 | NUR ---
NURSE NOTES: Received patient awake,verbal,confused at times,on bilateral soft wrist restraints,with essentially normal vital signs.
[2018-11-11 19:56] VITALS: BP 148/65
--- NOTE | 2018-11-11 20:11 | NUR ---
CASE MANAGEMENT: REVIEW SI: AMS . RIGHT FOOT SWELLING . CELLULITIS . ESRD T 98.2 HR 60 RR 18 BP 160/88 SAT 97% ROOM AIR H/H 8.4/24.6 BUN 51 CR 6.9 IS: ZOSYN IV Q8HR PLAVIX PO QD BREO INH QD COZAAR PO QD NIFEDIPINE PO QD SYNTHROID PO QD HYDRALAZINE PO Q8HR COREG PO Q12HR PRBC 1 UNIT MED/SURG STATUS DCP: PATIENT IS FROM [facility]
[2018-11-12] VITALS: BP 170/75
--- NOTE | 2018-11-12 00:45 | Progress Note ---
DATE: 11/12/2018 SUBJECTIVE: The patient is in bed. No acute distress. She is able to answer simple questions, dozing off during evaluation, was more tired and lethargic today. Has episodes of anxiety. The patient is unable to understand, process, communicate. MENTAL STATUS EXAM: Alert and oriented x2. Mood is neutral. Affect is flat. Thought process, there is paucity of thought content. Thought content, no suicidal or homicidal ideation. Cognition is impaired. Insight and judgment is impaired. ASSESSMENT: Schizoaffective disorder and acute encephalopathy. The patient lacks capacity to make decision. PLAN: No medication changes. Discussed with the staff. Blanka Beckett M.D. DR: ENRIKE JOB#: [id number] CC:
[2018-11-12 04:10] VITALS: BP 149/63
[2018-11-12] MEDS: HydrALAZINE 25mg tab ORAL SCH ×3 (05:28→21:01)
[2018-11-12] MEDS: Piperacillin/Tazobactam 2.25 GM in D5W 55 ML IV SCH ×2 (05:29→21:02)
[2018-11-12] MEDS: NovoLOG Insulin Flexpen SUBQ SCH ×4 (05:40→21:00)
[2018-11-12 06:31] LABS: BASOPHILS % (AUTO) 1.4 % (0.0-2.0); EOSINOPHILS % (AUTO) 0.4 % (0.0-3.0); HEMATOCRIT 25.2 % (37.0-47.0); HEMOGLOBIN 8.1 G/DL (12.0-16.0); LYMPHOCYTES % (AUTO) 8.3 % (20.0-45.0); MEAN CORPUSCULAR VOLUME 92 FL (80-99); MONOCYTES % (AUTO) 10.8 % (1.0-10.0); NEUTROPHILS % (AUTO) 79.2 % (45.0-75.0); PLATELET COUNT 204 K/UL (150-450); RED BLOOD COUNT 2.74 M/UL (4.20-5.40); RED CELL DISTRIBUTION WIDTH 14.5 % (11.6-14.8); WHITE BLOOD COUNT 8.4 K/UL (4.8-10.8)
[2018-11-12 06:47] LABS: ANION GAP 12 mmol/L (5-15); BLOOD UREA NITROGEN 41 mg/dL (7-18); CARBON DIOXIDE 25 MMOL/L (21-32); CHLORIDE 95 MMOL/L (98-107); CREATININE 5.8 MG/DL (0.55-1.30); POTASSIUM 4.3 MMOL/L (3.5-5.1); SODIUM 132 MMOL/L (136-145)
--- NOTE | 2018-11-12 07:07 | NUR ---
HAND-OFF: Report given to Linda Perdomo RN.
--- NOTE | 2018-11-12 07:30 | NUR ---
NURSE NOTES: Received pt from CHEPE JOYCE. Pt is confused and orient x2. Pt is in RA, no SOB or acute respiratory distress noted. pt has intact iv access CATALINA 22G SL. All needs attended, bed is locked and is in the lowest position. call light within easy reach. will continue to monitor.
[2018-11-12 08:00] VITALS: BP 149/65
[2018-11-12] MEDS: Breo Ellipta 100/25mcg - 14 dose INH SCH (08:52)
[2018-11-12] MEDS: Calcium Acetate 667mg Tab ORAL SCH ×3 (09:04→17:33)
[2018-11-12] MEDS: Carvedilol 12.5mg tab ORAL SCH ×2 (09:04→21:00)
[2018-11-12] MEDS: Losartan 50mg tab ORAL SCH (09:05)
[2018-11-12] MEDS: Renvela 800mg Pkt ORAL SCH ×3 (09:05→17:33)
[2018-11-12] MEDS: Heparin 5000 units/ml inj SUBQ SCH ×2 (09:06→20:59)
--- NOTE | 2018-11-12 10:00 | NUR ---
NURSE NOTES: Dr LEROY visited pt and she is aware about T 101, No new order to RN. Will continue to monitor.
[2018-11-12] MEDS: Haloperidol 5mg/ml Inj IM PRN (11:03)
[2018-11-12 12:00] VITALS: BP 146/67
--- NOTE | 2018-11-12 13:36 | Nephrology Progress Note ---
Assessment/Plan Problem List: (1) ESRD (end stage renal disease) (2) Hyperkalemia (3) Seizure disorder (4) Foot ulcer due to secondary DM (5) Anemia in chronic renal disease Assessment: worsenning Assessment Admitted for foot infection and missing HD and hyperkalemia (1) ESRD (end stage renal disease) on dialysis (2) Altered level of consciousness / Encephalopathy metabolic (3) Schizoaffective disorder, bipolar type (4) h/o Hypothyroidism (5) Anemia in chronic renal disease Also: - Cellulitis both LE - End-stage renal disease, on hemodialysis. fistula right arm - HTN / Pulmonary HTN - Diabetes type 2. Others - Morbid obesity. 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 with curtain framer in am if in house transfused one unit 11/10 h/o refusing care and tests periodically skin care / Antibiotics / ID eval noted per consultants anti Sz med to med- surg Subjective ROS Limited/Unobtainable: No Constitutional: Reports: malaise Objective Objective Last 24 Hour Vital Signs Date Time Temp Pulse Resp B/P (MAP) Pulse Ox O2 Delivery O2 Flow Rate FiO2 11/12/18 10:18 98.8 11/12/18 09:05 65 149/65 11/12/18 09:05 149/65 11/12/18 09:04 65 149/65 11/12/18 09:00 Room Air 11/12/18 08:00 101.0 65 18 149/65 (93) 97 11/12/18 05:28 149/63 11/12/18 04:10 98.9 66 20 149/63 (91) 92 11/12/18 00:00 98.8 71 20 170/75 (106) 95 11/11/18 21:28 148/65 11/11/18 21:28 62 148/65 11/11/18 20:05 Room Air 11/11/18 19:56 98.2 62 18 148/65 (92) 96 11/11/18 16:00 98.3 66 20 107/68 (81) 97 11/11/18 14:00 100/53 Intake and Output 9/23/19 9/24/19 18:59 06:59 Intake Total 675 ml 510 ml Output Total 1000 ml Balance -325 ml 510 ml Intake Oral 620 ml 400 ml IV Total 55 ml 110 ml Hemodialysis UF 1000 ml # Voids 3 # Bowel Movements 1 Laboratory Tests 11/11/18 18:15: Random Vancomycin Level 20.1 11/12/18 05:40: White Blood Count 8.4, Red Blood Count 2.74L, Hemoglobin 8.1L, Hematocrit 25.2L , Mean Corpuscular Volume 92, Mean Corpuscular Hemoglobin 29.5, Mean Corpuscular Hemoglobin Concent 32.0, Red Cell Distribution Width 14.5, Platelet Count 204, Mean Platelet Volume 6.4L, Neutrophils (%) (Auto) 79.2H, Lymphocytes (%) (Auto) 8.3L, Monocytes (%) (Auto) 10.8H, Eosinophils (%) (Auto) 0.4, Basophils (%) (Auto) 1.4, Sodium Level 132L, Potassium Level 4.3, Chloride Level 95L, Carbon Dioxide Level 25, Anion Gap 12, Blood Urea Nitrogen 41H, Creatinine 5.8H, Estimat Glomerular Filtration Rate 7.5, Glucose Level 94, Calcium Level 9.0 Height (Feet): 5 Height (Inches): 6.00 Weight (Pounds): 209 General Appearance: no apparent distress, lethargic Cardiovascular: normal rate Respiratory/Chest: decreased breath sounds Abdomen: soft Objective no change Eamon Solis MD Nov 12, 2018 13:36
--- NOTE | 2018-11-12 13:40 | NUR ---
NURSE NOTES: RN spoke with VIP RN CRIS and he is notified about HD for tomorrow. will continue to monitor.
--- NOTE | 2018-11-12 14:32 | Infectious Diseases Prog Note ---
Assessment/Plan Assessment/Plan ASSESSMENT AND PLAN: 1. bilateral foot wound infection, gangrene, osteomyelitis, cellulitis, sepsis, leukocytosis, ams, pvc, doubt pna - vancomycin and zosyn - for now - clinically improved, more alert, leukocytosis resolved - podiatry and vascular surgery f/u - needs transfer for possible angio and may need amputation - wound care per surgery recs - continue treatment per Dr. Ramirez - monitor labs 2. End-stage renal disease, on hemodialysis. Continue management per Renal Medicine. 3. Anemia of chronic disease. 4. History of upper extremity graft. 5. Obesity. 6. Schizophrenia. 7. Bipolar disease. 8. Diabetes. 9. Hypertension. 10. Blood sugar, blood pressure treatment per primary. 11. Hyperlipidemia. 12. Hypothyroidism. 13. Wound care protocol and surgery. 14. Allergies are negative. 15. Social history negative. 16. Family history noncontributory. 17. MAR is noted. 18. Case discussed with RN. 19. Case discussed with Dr. Ramirez. 20. Continue treatment per primary consultants. Subjective Constitutional: Denies: fever HEENT: Denies: congestion Respiratory: Denies: shortness of breath Cardiovascular: Denies: chest pain Gastrointestinal/Abdominal: Denies: nausea, vomiting, diarrhea Genitourinary: Reports: other - no waller Neurologic: Denies: headache Psychiatric: Denies: depression Skin: Denies: rash Hematologic: Denies: bleeding Musculoskeletal: Reports: pain - controlled Allergies: Coded Allergies: No Known Allergies (Verified , 08/23/06) Objective Vital Signs Last 24 Hour Vital Signs Date Time Temp Pulse Resp B/P (MAP) Pulse Ox O2 Delivery O2 Flow Rate FiO2 11/12/18 12:00 99.9 60 16 146/67 (93) 98 11/12/18 10:18 98.8 11/12/18 09:05 65 149/65 11/12/18 09:05 149/65 11/12/18 09:04 65 149/65 11/12/18 09:00 Room Air 11/12/18 08:00 101.0 65 18 149/65 (93) 97 11/12/18 05:28 149/63 11/12/18 04:10 98.9 66 20 149/63 (91) 92 11/12/18 00:00 98.8 71 20 170/75 (106) 95 11/11/18 21:28 148/65 11/11/18 21:28 62 148/65 11/11/18 20:05 Room Air 11/11/18 19:56 98.2 62 18 148/65 (92) 96 11/11/18 16:00 98.3 66 20 107/68 (81) 97 Height (Feet): 5 Height (Inches): 6.00 Weight (Pounds): 209 General Appearance: no acute distress HEENT: normocephalic, atraumatic, anicteric Respiratory/Chest: lungs clear, normal breath sounds, no respiratory distress, no accessory muscle use Cardiovascular: normal rate, regular rhythm, no gallop/murmur, no JVD Abdomen: normal bowel sounds, soft, non tender, no organomegaly Genitourinary: other - no waller Extremities: other - right foot/toe gangrene and wounds noted - no change Skin: no ulcers Neurologic/Psychiatric: alert, responsive Lymphatic: no neck adenopathy Musculoskeletal: no effusion Objective Chest x-ray - 11/09/18 - FINDINGS: Lungs: Accentuation of interstitial markings. Pleural space: Unremarkable. No pneumothorax. Heart: Cardiomegaly. Mediastinum: Unremarkable. Bones joints: No acute fracture. IMPRESSION: Accentuation of interstitial markings. May be from interstitial edema and or pneumonia. There is a broader differential. x-ray - foot - IMPRESSION: Position of the distal phalangeal tuft of the great toe. This could be due to osteomyelitis, chronic versus acute. Please correlate clinically. Hammertoes second through fifth rays. Old fracture fifth metatarsal Soft tissue swelling nonspecific. Microbiology Date/Time Source Procedure Growth Status 11/06/18 23:45 Blood Blood Culture - Final NO GROWTH AFTER 5 DAYS Complete 11/07/18 01:48 Rectum - Final NO CARBAPENEM-RESISTANT ENTEROBACTERI... Complete Laboratory Tests Test 11/11/18 18:15 11/12/18 05:40 Random Vancomycin Level 20.1 ug/mL White Blood Count 8.4 K/UL (4.8-10.8) Red Blood Count 2.74 M/UL (4.20-5.40) L Hemoglobin 8.1 G/DL (12.0-16.0) L Hematocrit 25.2 % (37.0-47.0) L Mean Corpuscular Volume 92 FL (80-99) Mean Corpuscular Hemoglobin 29.5 PG (27.0-31.0) Mean Corpuscular Hemoglobin Concent 32.0 G/DL (32.0-36.0) Red Cell Distribution Width 14.5 % (11.6-14.8) Platelet Count 204 K/UL (150-450) Mean Platelet Volume 6.4 FL (6.5-10.1) L Neutrophils (%) (Auto) 79.2 % (45.0-75.0) H Lymphocytes (%) (Auto) 8.3 % (20.0-45.0) L Monocytes (%) (Auto) 10.8 % (1.0-10.0) H Eosinophils (%) (Auto) 0.4 % (0.0-3.0) Basophils (%) (Auto) 1.4 % (0.0-2.0) Sodium Level 132 MMOL/L (136-145) L Potassium Level 4.3 MMOL/L (3.5-5.1) Chloride Level 95 MMOL/L (98-107) L Carbon Dioxide Level 25 MMOL/L (21-32) Anion Gap 12 mmol/L (5-15) Blood Urea Nitrogen 41 mg/dL (7-18) H Creatinine 5.8 MG/DL (0.55-1.30) H Estimat Glomerular Filtration Rate 7.5 mL/min (>60) Glucose Level 94 MG/DL (74-106) Calcium Level 9.0 MG/DL (8.5-10.1) Current Medications Medications (Trade) Dose Ordered Sig/Gabriele Route PRN Reason Start Time Stop Time Status Last Admin Dose Admin Acetaminophen (Tylenol) 650 mg Q6H PRN ORAL Mild Pain/Temp > 100.5 11/08/18 17:00 12/07/18 16:59 11/12/18 09:48 Calcium Acetate (Phoslo) 667 mg THREE TIMES A DAY ORAL 11/08/18 18:00 12/07/18 12:59 11/12/18 12:43 Carvedilol (Coreg) 12.5 mg EVERY 12 HOURS ORAL 11/08/18 21:00 12/07/18 20:59 11/12/18 09:04 Clopidogrel Bisulfate (Plavix) 75 mg DAILY ORAL 11/09/18 09:00 12/08/18 08:59 11/12/18 09:04 Dextrose (Dextrose 50%) 25 ml Q30M PRN IV Hypoglycemia 11/08/18 17:15 12/07/18 10:14 Dextrose (Dextrose 50%) 50 ml Q30M PRN IV Hypoglycemia 11/08/18 17:15 12/07/18 10:14 Fluticasone/ Vilanterol (Breo Ellipta 100/25) 1 puff DAILY INH 11/09/18 09:00 12/08/18 08:59 11/11/18 10:39 Haloperidol Lactate (Haldol) 5 mg Q6H PRN IM Agitation 11/08/18 17:30 12/07/18 17:29 11/12/18 11:03 Heparin Sodium (Porcine) (Heparin 5000 units/ml) 5,000 units EVERY 12 HOURS SUBQ 11/08/18 21:00 12/07/18 20:59 11/12/18 09:06 Hydralazine HCl (Apresoline) 25 mg Q8HR ORAL 11/08/18 22:00 12/07/18 13:59 11/12/18 05:28 Insulin Aspart (NovoLOG) BEFORE MEALS AND HS SUBQ 11/08/18 18:00 12/08/18 17:59 11/12/18 12:47 Levetiracetam (Keppra) 1,000 mg Q12HR ORAL 11/08/18 21:00 12/07/18 17:59 11/12/18 09:04 Levothyroxine Sodium (Synthroid) 75 mcg DAILY@0630 ORAL 11/09/18 06:30 12/08/18 06:29 11/12/18 05:28 Losartan Potassium (Cozaar) 50 mg DAILY ORAL 11/09/18 09:00 12/08/18 08:59 11/12/18 09:05 Nifedipine (Procardia XL) 60 mg DAILY ORAL 11/09/18 09:00 12/08/18 08:59 11/12/18 09:05 Piperacillin Sod/ Tazobactam Sod 2.25 gm/Dextrose 55 ml @ 110 mls/hr Q8HR IV 11/10/18 22:00 11/14/18 11:59 11/12/18 05:29 Pravastatin Sodium (Pravachol) 40 mg BEDTIME ORAL 11/08/18 21:00 12/07/18 20:59 11/11/18 21:28 Quetiapine Fumarate (SEROquel) 300 mg QHS ORAL 11/08/18 21:00 12/07/18 20:59 11/11/18 21:28 Sevelamer Carbonate (Renvela) 800 mg THREE TIMES A DAY ORAL 11/08/18 18:00 12/07/18 12:59 11/12/18 12:43 Vancomycin HCl (Vanco rx to dose) 1 ea DAILY PRN MISC Per rx protocol 11/10/18 15:45 12/10/18 15:44 Nehal Nolasco MD Nov 12, 2018 14:32
--- NOTE | 2018-11-12 15:12 | Podiatric Progress Note ---
Assessment/Plan Patient Cris Zuluaga is a 57 year old female who was admitted on Nov 06, 2018 at 23:55 with Assessment/Plan a/p \ Dm foot gangrene continue local wound care vascular clearance pending. Subjective Allergies: Coded Allergies: No Known Allergies (Verified , 08/23/06) Subjective seen by bedside f/u b/l foot necrotic tissue and gangrene., Objective Exam Last 24 Hour Vital Signs Date Time Temp Pulse Resp B/P (MAP) Pulse Ox O2 Delivery O2 Flow Rate FiO2 11/12/18 14:37 146/67 11/12/18 12:00 99.9 60 16 146/67 (93) 98 11/12/18 10:18 98.8 11/12/18 09:05 65 149/65 11/12/18 09:05 149/65 11/12/18 09:04 65 149/65 11/12/18 09:00 Room Air 11/12/18 08:00 101.0 65 18 149/65 (93) 97 11/12/18 05:28 149/63 11/12/18 04:10 98.9 66 20 149/63 (91) 92 11/12/18 00:00 98.8 71 20 170/75 (106) 95 11/11/18 21:28 148/65 11/11/18 21:28 62 148/65 11/11/18 20:05 Room Air 11/11/18 19:56 98.2 62 18 148/65 (92) 96 11/11/18 16:00 98.3 66 20 107/68 (81) 97 Laboratory Tests Test 11/11/18 18:15 11/12/18 05:40 Random Vancomycin Level 20.1 ug/mL White Blood Count 8.4 K/UL (4.8-10.8) Red Blood Count 2.74 M/UL (4.20-5.40) L Hemoglobin 8.1 G/DL (12.0-16.0) L Hematocrit 25.2 % (37.0-47.0) L Mean Corpuscular Volume 92 FL (80-99) Mean Corpuscular Hemoglobin 29.5 PG (27.0-31.0) Mean Corpuscular Hemoglobin Concent 32.0 G/DL (32.0-36.0) Red Cell Distribution Width 14.5 % (11.6-14.8) Platelet Count 204 K/UL (150-450) Mean Platelet Volume 6.4 FL (6.5-10.1) L Neutrophils (%) (Auto) 79.2 % (45.0-75.0) H Lymphocytes (%) (Auto) 8.3 % (20.0-45.0) L Monocytes (%) (Auto) 10.8 % (1.0-10.0) H Eosinophils (%) (Auto) 0.4 % (0.0-3.0) Basophils (%) (Auto) 1.4 % (0.0-2.0) Sodium Level 132 MMOL/L (136-145) L Potassium Level 4.3 MMOL/L (3.5-5.1) Chloride Level 95 MMOL/L (98-107) L Carbon Dioxide Level 25 MMOL/L (21-32) Anion Gap 12 mmol/L (5-15) Blood Urea Nitrogen 41 mg/dL (7-18) H Creatinine 5.8 MG/DL (0.55-1.30) H Estimat Glomerular Filtration Rate 7.5 mL/min (>60) Glucose Level 94 MG/DL (74-106) Calcium Level 9.0 MG/DL (8.5-10.1) Microbiology Date/Time Source Procedure Growth Status 11/06/18 23:45 Blood Blood Culture - Final NO GROWTH AFTER 5 DAYS Complete 11/07/18 01:48 Rectum - Final NO CARBAPENEM-RESISTANT ENTEROBACTERI... Complete Dermatological Dermatological Narrative R foot 1st and 2nd toe gangrene with dusky changes of the 3rd toe consistent with gangrene changes. no drainage or discharge noted slight odor at the site. L foot ulcer and necrosis stable no discharge or drainage noted. Alejo Stafford DPM Nov 12, 2018 15:12
--- NOTE | 2018-11-12 15:20 | Surgery Progress Note ---
Surgery Progress Note Subjective Additional Comments no acute events comfortable stable Objective Last 24 Hour Vital Signs Date Time Temp Pulse Resp B/P (MAP) Pulse Ox O2 Delivery O2 Flow Rate FiO2 11/12/18 14:37 146/67 11/12/18 12:00 99.9 60 16 146/67 (93) 98 11/12/18 10:18 98.8 11/12/18 09:05 65 149/65 11/12/18 09:05 149/65 11/12/18 09:04 65 149/65 11/12/18 09:00 Room Air 11/12/18 08:00 101.0 65 18 149/65 (93) 97 11/12/18 05:28 149/63 11/12/18 04:10 98.9 66 20 149/63 (91) 92 11/12/18 00:00 98.8 71 20 170/75 (106) 95 11/11/18 21:28 148/65 11/11/18 21:28 62 148/65 11/11/18 20:05 Room Air 11/11/18 19:56 98.2 62 18 148/65 (92) 96 11/11/18 16:00 98.3 66 20 107/68 (81) 97 I&O Intake and Output 11/11/18 11/12/18 18:59 06:59 Intake Total 675 ml 510 ml Output Total 1000 ml Balance -325 ml 510 ml Intake Oral 620 ml 400 ml IV Total 55 ml 110 ml Hemodialysis UF 1000 ml # Voids 3 # Bowel Movements 1 Dressing: dry, other Wound: clean, other Cardiovascular: RSR Respiratory: clear Abdomen: soft, flat, non-tender, present bowel sounds Extremities: cyanosis, other Laboratory Tests Test 11/11/18 18:15 11/12/18 05:40 Random Vancomycin Level 20.1 ug/mL White Blood Count 8.4 K/UL (4.8-10.8) Red Blood Count 2.74 M/UL (4.20-5.40) L Hemoglobin 8.1 G/DL (12.0-16.0) L Hematocrit 25.2 % (37.0-47.0) L Mean Corpuscular Volume 92 FL (80-99) Mean Corpuscular Hemoglobin 29.5 PG (27.0-31.0) Mean Corpuscular Hemoglobin Concent 32.0 G/DL (32.0-36.0) Red Cell Distribution Width 14.5 % (11.6-14.8) Platelet Count 204 K/UL (150-450) Mean Platelet Volume 6.4 FL (6.5-10.1) L Neutrophils (%) (Auto) 79.2 % (45.0-75.0) H Lymphocytes (%) (Auto) 8.3 % (20.0-45.0) L Monocytes (%) (Auto) 10.8 % (1.0-10.0) H Eosinophils (%) (Auto) 0.4 % (0.0-3.0) Basophils (%) (Auto) 1.4 % (0.0-2.0) Sodium Level 132 MMOL/L (136-145) L Potassium Level 4.3 MMOL/L (3.5-5.1) Chloride Level 95 MMOL/L (98-107) L Carbon Dioxide Level 25 MMOL/L (21-32) Anion Gap 12 mmol/L (5-15) Blood Urea Nitrogen 41 mg/dL (7-18) H Creatinine 5.8 MG/DL (0.55-1.30) H Estimat Glomerular Filtration Rate 7.5 mL/min (>60) Glucose Level 94 MG/DL (74-106) Calcium Level 9.0 MG/DL (8.5-10.1) Plan Problems: (1) Osteomyelitis Assessment & Plan: Position of the distal phalangeal tuft of the great toe. This could be due to osteomyelitis, chronic versus acute. Please correlate clinically. Hammertoes second through fifth rays. Old fracture fifth metatarsal Soft tissue swelling nonspecific. (2) Foot ulcer due to secondary DM Assessment & Plan: DAILY ESTIMATED NEEDS: Needs based on ESRD on HD, obese, wound 67.8kg abw 25-30 kcals/kg [id number] total kcals 1.25-1.8 g protein/kg 85-122 g total protein Fluid per MD, on HD NUTRITION DIAGNOSIS: * Increased protein needs r/t renal dysfunction as evidenced by ESRD dx on HD. CURRENT DIET: RENAL, mech soft ground PO DIET RECOMMENDATIONS: RENAL/ texture per SUCCESS COACH ADDITIONAL RECOMMENDATIONS: * Calibrated bedscale wt for accurate CBW, obtain dry wt post HD * Monitor lytes and renal fxn * Monitor BGs closely for hypoglycemia * Monitor PO intake closely / SUCCESS COACH eval for appropriate texture * Rec wound eval -multiple wound photos add Woody 1pkt BID, Nephrovite x 1 (3) Lower extremity cellulitis Assessment & Plan: worsening wound as compared to prior podiatry input appreciated vascular consult pending US studies may need amputation Abx as per ID will follow with recs plain films as above thank you (4) Non compliance with medical treatment Vic Wise Nov 12, 2018 15:20
--- NOTE | 2018-11-12 15:42 | General Progress Note ---
Assessment/Plan Status: stable, other Assessment/Plan: 57 year old female with ESRD, mental illness including schizophrenia and bipolar disorder, peripheral vascular disease and history of non compliance with treatment sent to the hospital from nursing facility for AMS, refusing HD and right foot great toe wound/cellulitis and right 2nd toe gangrene. 1. sepsis. Has leukocytosis and AMS (which could be due to infection (R foot 2nd toe gangrene/ischemia, R foot great toe wound/Osteomyelitis) vs. missed HD) essentially acute toxic metabolic encephalopathy. -Zonyn and vancomycin, wbc trending down -ID, surgery and podiatry evaluation requested. May need an amputation. Arterial studies of lower extremities to be repeated. Vascular consult. Needs to be transferred to [facility] for angio. D/W Dr. Escamilla and Dr. Martinez -follow up cultures and labs -Continue Plavix 2. ESRD -Urgent HD done -Nephrology consult with Dr. Solis -Monitor electrolytes -Phosphate binders 3. Mental health disorder- Schizophrenia and bipolar. -continue -Dr. Beckett from psychiatry to see -Continue Seroquel 300mg QHS 4. HTN Continue Losartan, carvedilol, hydralazine, Nifedipine 5. DM- controlled. HbA1c 4.5. Continue insulin via sliding scale as needed 6. Seizure disorder. Continue keppra 7. COPD. without exacerbation. Continue Breo 8. Hypothyroidism. Continue Levothyroxine. Increase dose from 50 to 75. TSH7.5 on 11/01 vte ppx: heparin subq GI ppx, not indicated Code: full code I spent 40 minutes on this encounter. > 50% on care coordination and counselling. Time of this note may not reflect time of encounter Subjective ROS Limited/Unobtainable: Yes Allergies: Coded Allergies: No Known Allergies (Verified , 08/23/06) Subjective poor historian unable to obtain ROS due to mental status stable no acute events wbc trending down She is more awake afebrile Objective Last 24 Hour Vital Signs Date Time Temp Pulse Resp B/P (MAP) Pulse Ox O2 Delivery O2 Flow Rate FiO2 11/12/18 14:37 146/67 11/12/18 12:00 99.9 60 16 146/67 (93) 98 11/12/18 10:18 98.8 11/12/18 09:05 65 149/65 11/12/18 09:05 149/65 11/12/18 09:04 65 149/65 11/12/18 09:00 Room Air 11/12/18 08:00 101.0 65 18 149/65 (93) 97 11/12/18 05:28 149/63 11/12/18 04:10 98.9 66 20 149/63 (91) 92 11/12/18 00:00 98.8 71 20 170/75 (106) 95 11/11/18 21:28 148/65 11/11/18 21:28 62 148/65 11/11/18 20:05 Room Air 11/11/18 19:56 98.2 62 18 148/65 (92) 96 11/11/18 16:00 98.3 66 20 107/68 (81) 97 Intake and Output 11/11/18 11/12/18 18:59 06:59 Intake Total 675 ml 510 ml Output Total 1000 ml Balance -325 ml 510 ml Intake Oral 620 ml 400 ml IV Total 55 ml 110 ml Hemodialysis UF 1000 ml # Voids 3 # Bowel Movements 1 Laboratory Tests 11/11/18 18:15: Random Vancomycin Level 20.1 11/12/18 05:40: White Blood Count 8.4, Red Blood Count 2.74L, Hemoglobin 8.1L, Hematocrit 25.2L , Mean Corpuscular Volume 92, Mean Corpuscular Hemoglobin 29.5, Mean Corpuscular Hemoglobin Concent 32.0, Red Cell Distribution Width 14.5, Platelet Count 204, Mean Platelet Volume 6.4L, Neutrophils (%) (Auto) 79.2H, Lymphocytes (%) (Auto) 8.3L, Monocytes (%) (Auto) 10.8H, Eosinophils (%) (Auto) 0.4, Basophils (%) (Auto) 1.4, Sodium Level 132L, Potassium Level 4.3, Chloride Level 95L, Carbon Dioxide Level 25, Anion Gap 12, Blood Urea Nitrogen 41H, Creatinine 5.8H, Estimat Glomerular Filtration Rate 7.5, Glucose Level 94, Calcium Level 9.0 Height (Feet): 5 Height (Inches): 6.00 Weight (Pounds): 209 Objective General: Awake, disheveled, obese HEENT: PERRL, no jvd, dry mm Cardiovascular: RRR. S1S2. No m/r/g, graft in the right upper extremity Lung: CTA bl, no crackles or wheezing Abdomen: Abdomen is soft, nondistended. Nontender, obese Musculoskeletal: moves all extremities, normal tone Neuro: Awake, oriented to place and self but not time. grossly normal Skin: Multiple wounds over the lower and upper extremities including the left heel, multiple toes, right 2nd toe gangrene, right great toe wound Diego Ramirez M.D. Nov 12, 2018 15:42
[2018-11-12 16:00] VITALS: BP 158/70
--- NOTE | 2018-11-12 17:02 | NUR ---
NURSE NOTES: wounds treatment done as order. pt tolerated well. will continue to monitor.
[2018-11-12] MEDS ORDERED: VANCOMYCIN1.25 GM/12 IV (17:21)
[2018-11-12] MEDS ORDERED: HYDRALAZINE HCL25 M1 ORAL (17:21)
[2018-11-12] MEDS ORDERED: ZOSYN 2.252.25 GM/51 IVPB (17:21)
[2018-11-12] MEDS ORDERED: LEVOTHYROXINE75 MCG ORAL (17:21)
--- NOTE | 2018-11-12 17:33 | Discharge Instructions ---
Discharge Instructions Discharge Instructions Diet: diabetic calorie control Resume Normal Activity?: Yes Activity: ambulate w/ assist only Follow Up Orders Patient has an appointment with Dr. Terry Martinez on 11/18/18 11 am at [facility] for angio. She needs a angio for her leg ulcer that may potentially need an amputations. [facility] does not have Angio, therefore this will need to be done at [facility]. director of casework department has arranged for transporation for Saturday 11/18 at 10 am. She will remain on Zosyn 2.25g every 8 hours and Vancomycin 1250mg post HD for osteomyelitis of lower extremity. She needs close monitoring of her electrolytes and ID follow up. For Congestive Heart Failure Reminder Report to your physician any weight gain of 5 pounds or more in one week. Diego Ramirez M.D. Nov 12, 2018 17:33
--- NOTE | 2018-11-12 17:44 | Discharge Summary ---
Discharge Summary Hospital Course Date of Admission Nov 06, 2018 at 23:55 Date of Discharge 11/13/2018 Admitting Diagnosis AMS HPI Cris Zuluaga is a 57 year old female who was admitted on Nov 06, 2018 at 23:55 for Altered Mental Status Consultations ID: Dr. Atkins Nephrology; Dr. Solis Podiatry: Drs. Romero Vascular: Dr. Martinez Psychiatry: Dr. Beckett Procedures Hemodialysis CXR foot xr Venous and arterial LE studies Hospital Course 57 year old female with ESRD, mental illness including schizophrenia and bipolar disorder, peripheral vascular disease and history of non compliance with treatment sent to the hospital from nursing facility for AMS, refusing HD and right foot great toe wound/cellulitis and right 2nd toe gangrene. 1. sepsis. Has leukocytosis and AMS (which could be due to infection (R foot 2nd toe gangrene/ischemia, R foot great toe wound/Osteomyelitis) vs. missed HD) essentially acute toxic metabolic encephalopathy. -Zosyn and vancomycin, wbc trending down, mental status better -ID, surgery and podiatry evaluation requested. May need an amputation. Arterial studies of lower extremities repeated, results pending. Vascular and podiatry consulted. Patient needs lower extremity angio which is not available at [facility] (can happen either at [facility] or [facility]). Patient has an appt at [facility] on 11/18/18 @ [address] angio [address] Dr[address] Martinez. grounds manager Savanah will book transforation D/W Dr. Escamilla and Dr. Martinez -follow up cultures and labs -Continue Plavix 2. ESRD -Urgent HD done -Nephrology consult with Dr. Solis -Monitor electrolytes -Phosphate binders 3. Mental health disorder- Schizophrenia and bipolar. -continue -Dr. Beckett from psychiatry to see -Continue Seroquel 300mg QHS 4. HTN Continue Losartan, carvedilol, hydralazine, Nifedipine 5. DM- controlled. HbA1c 4.5. Continue insulin via sliding scale as needed 6. Seizure disorder. Continue keppra 7. COPD. without exacerbation. Continue Breo 8. Hypothyroidism. Continue Levothyroxine. Increased dose from 50 to 75. TSH7.5 on 11/01 vte ppx: heparin subq GI ppx, not indicated Code: full code today on exam: Awake,and cooperative. Mental status better R foot 1st and 2nd toe gangrene with dusky changes of the 3rd toe consistent with gangrene changes. no drainage or discharge noted slight odor at the site. L foot ulcer and necrosis stable no discharge or drainage noted. I spent 35 minutes on this encounter. Discharge Medications New Medications: Voritkbdzdep-Bbzu-Dcljjsmx,Iso (Zosyn 2.25 Gm Pre-Mix Bag) 2.25 Gm/50 Ml Froz.piggy 2.25 GM IVPB EVERY 8 HOURS for 30 Days, #90 BAG Vancomycin HCl in Water (Vancomycin 1,250 mg/12.5 ml Vl) 1.25 Gm/12.5 Ml Vial 1.25 GM IV 3XW for 30 Days, #20 VIAL Hydralazine Hcl* (Hydralazine Hcl*) 25 Mg Tablet 25 MG ORAL Q8HR for 30 Days, #90 TAB Levothyroxine Sodium* (Levothyroxine Sodium*) 75 Mcg Tablet 75 MCG ORAL DAILY@0630 for 30 Days, #30 TAB Take in the morning on an empty stomach, at least 30 minutes before food. Continued Medications: Acetaminophen* (Acetaminophen 325MG Tablet*) 325 Mg Tablet 650 MG ORAL Q6H PRN for Mild Pain/Temp > 100.5, TAB Bisacodyl (Bisacodyl) 10 Mg Supp.rect 10 MG RC DAILY PRN for Constipation, SUPP Calcium Acetate (Calcium Acetate) 667 Mg Capsule 667 MG PO THREE TIMES A DAY, CAP Carvedilol (Coreg) 12.5 Mg Tablet 12.5 MG ORAL EVERY 12 HOURS, TAB HOLD AM DOSE Q , , SAT, IF SBP <110, DBP <60 OR HR <60 Clopidogrel Bisulfate* (Plavix*) 75 Mg Tablet 75 MG ORAL DAILY, TAB Fluticasone/Vilanterol (Breo Ellipta 100-25 Mcg INH) 1 Each Blst.w.dev 1 EACH IH BID, EACH Gabapentin (Neurontin) 300 Mg Capsule 300 MG ORAL BID, #15 CAP 0 Refills Glucagon (Glucagen) 1 Mg/1 Ml Vial 1 MG IM, VIAL IF BS<60 AND PATIENT UNABLE TO SWALLOW Haloperidol (Haloperidol) 5 Mg Tablet 5 MG ORAL Q8HR for 30 Days, #90 TAB Insulin Glargine (Lantus) 100 Unit/1 Ml Insuln.pen 10 UNITS SUBQ BEDTIME HOLD IF BS<120 Ipratropium/Albuterol Sulfate (DuoNeb 0.5-3(2.5)mg/3ml) 3 Ml Ampul.neb 3 ML HHN Q6HR PRN for SOB/WHEEZING, EA Levetiracetam (Levetiracetam) 1,000 Mg Tablet 1000 MG ORAL TWICE A DAY, #60 TAB 0 Refills Losartan Potassium* (Losartan Potassium*) 50 Mg Tablet 50 MG ORAL BID HOLD AM DOSE Q , , SAT IF SBP <110, DBP<60 OR HR <60 Minoxidil* (Loniten*) 2.5 Mg Tablet 2.5 MG PO DAILY, TAB HOLD IF SBP < 110, DBP < 60 OR HR < 60 HOLD DOSE ON Nifedipine Xl* (Procardia Xl*) 30 Mg Tab.er.24 60 MG ORAL DAILY for 30 Days, #30 TAB Polyethylene Glycol 3350* (Miralax*) 17 Gm Powd.pack 17 GM ORAL DAILY, PACKET Pravastatin Sod* (Pravachol*) 20 Mg Tablet 40 MG ORAL BEDTIME for 30 Days, #30 TAB Quetiapine Fumarate (Quetiapine Fumarate) 300 Mg Tablet 300 MG ORAL QHS Sevelamer Carbonate (Renvela) 800 Mg Tablet 800 MG ORAL THREE TIMES A DAY for 30 Days, #90 TAB Sitagliptin* (Januvia*) 25 Mg Tablet 25 MG ORAL DAILY, TAB WITH BREAKFAST Vitamin B Cmplx/Vit C/Folic AC (Nephro-Denise Tablet) 0.8 Mg Tablet 1 TAB ORAL DAILY Discontinued Medications: Acetaminophen* (Acetaminophen Extra Strength*) 500 Mg Tablet 1000 MG ORAL Q6H PRN for Moderate Pain (Pain Scale 4-6) Levothyroxine Sodium (Synthroid) 50 Mcg Tablet 50 MCG ORAL DAILY, TAB Take in the morning on an empty stomach, at least 30 minutes beforefood. Discharge Condition Upon Discharge: stable Discharge Disposition Patient was discharged to [facility] Discharge Diagnoses: (1) Sepsis (2) Osteomyelitis (3) Foot ulcer due to secondary DM (4) Acute metabolic encephalopathy (5) Altered level of consciousness (6) Lower extremity cellulitis (7) Schizoaffective disorder, bipolar type (8) MDD (major depressive disorder), recurrent episode, moderate (9) Seizure disorder (10) Obesity (BMI 30-39.9) (11) Non compliance with medical treatment (12) ESRD (end stage renal disease) on dialysis (13) HTN (hypertension) (14) Anemia in chronic renal disease (15) GERD (gastroesophageal reflux disease) (16) CHF (congestive heart failure) (17) Hypothyroidism (18) ESRD (end stage renal disease) Discharge Instructions Discharge Instructions Activity: ambulate w/ assist only Diego Ramirez M.D. Nov 12, 2018 17:44
--- NOTE | 2018-11-12 19:40 | NUR ---
NURSE NOTES: Received patient awake,verbal,,uncooperative,on bilateral soft wrist restraints.
--- NOTE | 2018-11-12 19:42 | NUR ---
HAND-OFF: Report given to CHEPE JOYCE.
[2018-11-12 20:00] VITALS: BP 102/47
--- NOTE | 2018-11-12 21:33 | Diagnostic Imaging Report ---
APPROVED REPORT CPT Code: 95031 Symptoms Comments: Leg pain and wound Comments Technically difficult/limited visualization due to calcific interference and pain. Hx of Stent (LSFA) RIGHT LEG: A moderate stenosis (50-60%) is seen in the common femoral artery. Color flow duplex sonography reveals a moderate (60-70%) stenosis in the distal superficial femoral artery and mild (30-50%) stenosis in the popliteal artery. The tibioperoneal trunk was not well visualized. The distal posterior, anterior and dorsalis pedis arteries are also calcified. The Doppler tibial artery waveform analysis is monophasic, consistent with severe ischemia at rest. LEFT LEG: Common femoral artery waveform analysis is within normal limits at rest. Color flow duplex sonography reveals patency of the stented superficial femoral artery. The popliteal artery is heavily calcified. The tibioperoneal trunk was not well visualized. The distal posterior, anterior and dorsalis pedis arteries are also calcified. The Doppler tibial artery waveform analysis is monophasic, consistent with severe ischemia at rest.
--- NOTE | 2018-11-12 21:34 | Diagnostic Imaging Report ---
APPROVED REPORT CPT Code: 99129 Present Symptoms Lower Extremity Edema: Bilateral BILATERAL: Imaging reveals a patent deep venous system bilaterally. There is no evidence of thrombus within the common femoral, superficial femoral, popliteal or tibial segments. The greater saphenous veins are within normal limits. Doppler indicates normal spontaneous flow within these segments.
[2018-11-13] VITALS (7 sets, daily range): BP systolic 128–206; BP diastolic 65–85
--- NOTE | 2018-11-13 | Progress Note ---
DATE: 11/12/2018 SUBJECTIVE: The patient is able to answer the questions. She is more awake. Continues to have episodes of agitation. Received Haldol IM. The patient in bilateral soft restraints. MENTAL STATUS EXAMINATION: The patient is alert and oriented times to self and place. Mood is anxious. Affect is flat. Thought process is concrete. Thought content, no suicidal or homicidal ideation. ASSESSMENT: 1. Schizoaffective disorder. 2. Acute encephalopathy. PLAN: We will continue the current medications of Seroquel 300 mg at bedtime and Haldol 5 mg every six hours as needed. Blanka Beckett M.D. DR: TY JOB#: [id number] CC:
[2018-11-13] MEDS: HydrALAZINE 25mg tab ORAL SCH ×2 (05:45→14:33)
[2018-11-13] MEDS: Piperacillin/Tazobactam 2.25 GM in D5W 55 ML IV SCH ×2 (05:45→14:34)
[2018-11-13] MEDS: NovoLOG Insulin Flexpen SUBQ SCH ×3 (06:09→17:01)
--- NOTE | 2018-11-13 07:23 | NUR ---
HAND-OFF: Report given to Alejo Tavarez RN.
--- NOTE | 2018-11-13 07:50 | NUR ---
NURSE NOTES: Received patient on bed, awake. Bilateral soft wrist restraints in place. Pulses present adn temperatures normal. IV site intact and patent. Bed in low and locked position call light in reach. No signs of respiratory distress or pain. ROom board updated, will continue to monitor.
[2018-11-13] MEDS: Breo Ellipta 100/25mcg - 14 dose INH SCH (09:00)
[2018-11-13] MEDS: Renvela 800mg Pkt ORAL SCH ×3 (09:29→19:01)
[2018-11-13] MEDS: Losartan 50mg tab ORAL SCH (09:30)
[2018-11-13] MEDS: Calcium Acetate 667mg Tab ORAL SCH ×3 (09:30→19:01)
[2018-11-13] MEDS: Heparin 5000 units/ml inj SUBQ SCH (09:32)
[2018-11-13] MEDS: Carvedilol 12.5mg tab ORAL SCH (09:32)
--- NOTE | 2018-11-13 10:15 | General Progress Note ---
Progress Note Progress Note Patient seen and examined Ischemic foot with right > left toe gangrene necrosis Severe PAD with absent pop pedal pulses Obesity DM HTN ESRD on HD via right arm avf Dementia Hx of failed leg angiogram attempts by other physicians Rec Medical optimization Will need leg angiogram for limb salvage revascularization Toe gangrene amputation after above Decub & DVT precautions Antiplatelet & statin Abx per ID d/w pt & pts' nurse at bedside Terry Martinez MD Nov 13, 2018 10:15
--- NOTE | 2018-11-13 10:30 | NUR ---
NURSE NOTES: Changed dressing on bolateral feet per MD Martinez orders.
--- NOTE | 2018-11-13 12:25 | Discharge Instructions ---
Discharge Instructions Discharge Instructions Diet: diabetic calorie control Resume Normal Activity?: Yes Activity: bedrest Follow Up Orders appt for angiogram at [facility] sunday11/18/[address] at [address] Martinez. Confirmed with office .TONY Pavon has arranged for transportation from [facility] to [facility] at 10 am Patient to continue on zosyn 2.25g q8hr and Vancomycin 1250mg s/p HD. Needs routine monitoring of electrolytes, vancomycin levels. Needs ID follow up For Congestive Heart Failure Reminder Report to your physician any weight gain of 5 pounds or more in one week. Diego Ramirez M.D. Nov 13, 2018 12:25
--- NOTE | 2018-11-13 14:15 | NUR ---
NURSE NOTES: Dialysis nurse stated patient's systolic blood pressure was 209. Scheduked medication apresoline will be given. Message left with MD Solis, awaiting any further orders. Charge nurse Macie made aware.
--- NOTE | 2018-11-13 14:38 | NUR ---
DISCHARGE PLANNING DISCHARGE ORDER NOTED Patient has been accepted to; [facility] [address] [place] [address] Bed: 321-B Skilled [phone] for Nurse to Nurse report [facility] ETA for transportation: 16:00
--- NOTE | 2018-11-13 14:55 | Nephrology Progress Note ---
Assessment/Plan Problem List: (1) ESRD (end stage renal disease) (2) Hyperkalemia (3) Seizure disorder (4) Foot ulcer due to secondary DM (5) Anemia in chronic renal disease Assessment: worsenning Assessment Admitted for foot infection and missing HD and hyperkalemia (1) ESRD (end stage renal disease) on dialysis (2) Altered level of consciousness / Encephalopathy metabolic (3) Schizoaffective disorder, bipolar type (4) h/o Hypothyroidism (5) Anemia in chronic renal disease Also: - Cellulitis both LE - End-stage renal disease, on hemodialysis. fistula right arm - HTN / Pulmonary HTN - Diabetes type 2. Others - Morbid obesity. - H/O Colon Cancer - H/O Hep C - H/O Depression and Bipolar disease - Psych disease uncoaporative --Bilateral leg numbness --diabetic neuropathy --L5-S1 disc protrusion Plan adjust bp meds discussed with parking meter installer today transfused one unit 11/10 h/o refusing care and tests periodically skin care / Antibiotics / ID eval noted per consultants anti Sz med to med- surg Subjective ROS Limited/Unobtainable: No Constitutional: Reports: malaise Objective Objective Last 24 Hour Vital Signs Date Time Temp Pulse Resp B/P (MAP) Pulse Ox O2 Delivery O2 Flow Rate FiO2 11/13/18 14:33 192/85 11/13/18 09:32 62 165/70 11/13/18 09:30 62 165/70 11/13/18 09:30 165/70 11/13/18 09:00 Room Air 11/13/18 08:00 98.5 62 20 165/70 (101) 95 11/13/18 05:45 152/65 11/13/18 04:05 97.4 62 18 152/65 (94) 96 11/13/18 00:00 97.9 65 18 166/78 (107) 96 11/12/18 21:01 102/47 11/12/18 21:00 57 102/47 11/12/18 20:05 Room Air 11/12/18 20:00 97.2 57 18 102/47 (65) 98 11/12/18 16:00 97.2 60 15 158/70 (99) 96 Intake and Output 11/12/18 11/13/18 19:00 07:00 Intake Total 300 ml 110 ml Balance 300 ml 110 ml Intake Oral 300 ml IV Total 110 ml # Voids 2 Height (Feet): 5 Height (Inches): 6.00 Weight (Pounds): 205 General Appearance: no apparent distress Objective no change Eamon Solis MD Nov 13, 2018 14:55
[2018-11-13] MEDS ORDERED: HydrALAZINE 25mg tab ORAL PRN (15:00)
--- NOTE | 2018-11-13 15:25 | NUR ---
NURSE NOTES: Patient blood pressure 206/75. PRN medication given. Will retake blood pressure in 45 minutes.
--- NOTE | 2018-11-13 16:15 | NUR ---
NURSE NOTES: Gave report over telephone to licensed nurse Martínez at [facility].
--- NOTE | 2018-11-13 16:24 | NUR ---
*-* INSURANCE *-* UPDATED CLINICALS HAVE BEEN FAXED TO: [employer] FAX ALL CLINICALS TO: [phone]
[2018-11-13] MEDS ORDERED: Losartan 50mg tab ORAL SCH (18:00)
[2018-11-13] MEDS ORDERED: Tubing Blood Filter IV ONE (18:26)
--- NOTE | 2018-11-13 19:40 | NUR ---
HAND-OFF: Report given to CHEPE Springer.
--- NOTE | 2018-11-13 19:47 | NUR ---
NURSE NOTES: Received patient awake,alert,verbal,confused at times,resting in bed,awaiting ambulance for transfer to [facility]
--- NOTE | 2018-11-13 20:00 | Progress Note ---
DATE: 11/13/2018 SUBJECTIVE: The patient is on fourth floor, still has episodes of agitation, not engaged during the evaluation, confused, disoriented. Her blood pressure is high. The patient has poor insight, uncooperative. MENTAL STATUS EXAMINATION: Alert and oriented x2. Mood is neutral to agitation. Affect is flat. Thought process, there is a paucity of thought content. Thought content, no suicidal or homicidal ideation. ASSESSMENT: 1. Acute metabolic encephalopathy. 2. Schizoaffective disorder. PLAN: We will continue current medication. Provide the patient with reality orientation and supportive therapy. Continue to follow and readjust the medications. Blanka Beckett M.D. DR: Shraddha JOB#: [id number] CC:
--- NOTE | 2018-11-13 20:15 | NUR ---
NURSE NOTES: Patient discharged by ambulance as ordered.
--- NOTE | 2018-11-13 21:57 | Surgery Progress Note ---
Surgery Progress Note Subjective Additional Comments stable comfortable labs noted exam unchanged. Objective Last 24 Hour Vital Signs Date Time Temp Pulse Resp B/P (MAP) Pulse Ox O2 Delivery O2 Flow Rate FiO2 11/13/18 20:00 97.8 66 16 128/69 (88) 96 11/13/18 17:10 206/76 11/13/18 16:00 96.8 67 20 178/75 (109) 98 11/13/18 15:24 206/76 (119) 11/13/18 15:20 206/76 11/13/18 14:33 192/85 11/13/18 12:00 98.2 64 20 192/85 (120) 96 11/13/18 09:32 62 165/70 11/13/18 09:30 62 165/70 11/13/18 09:30 165/70 11/13/18 09:00 Room Air 11/13/18 08:00 98.5 62 20 165/70 (101) 95 11/13/18 05:45 152/65 11/13/18 04:05 97.4 62 18 152/65 (94) 96 11/13/18 00:00 97.9 65 18 166/78 (107) 96 I&O Intake and Output 11/12/18 11/13/18 19:00 07:00 Intake Total 300 ml 110 ml Balance 300 ml 110 ml Intake Oral 300 ml IV Total 110 ml # Voids 2 Dressing: saturated Wound: other Drains: other Cardiovascular: RSR Respiratory: clear Abdomen: soft, flat, non-tender Extremities: other Laboratory Tests Test 11/13/18 17:45 Random Vancomycin Level 15.2 ug/mL Plan Problems: (1) Osteomyelitis Assessment & Plan: Position of the distal phalangeal tuft of the great toe. This could be due to osteomyelitis, chronic versus acute. Please correlate clinically. Hammertoes second through fifth rays. Old fracture fifth metatarsal Soft tissue swelling nonspecific. (2) Foot ulcer due to secondary DM Assessment & Plan: DAILY ESTIMATED NEEDS: Needs based on ESRD on HD, obese, wound 67.8kg abw 25-30 kcals/kg [id number] total kcals 1.25-1.8 g protein/kg 85-122 g total protein Fluid per MD, on HD NUTRITION DIAGNOSIS: * Increased protein needs r/t renal dysfunction as evidenced by ESRD dx on HD. CURRENT DIET: RENAL, mech soft ground PO DIET RECOMMENDATIONS: RENAL/ texture per TENNIS CAMP INSTRUCTOR ADDITIONAL RECOMMENDATIONS: * Calibrated bedscale wt for accurate CBW, obtain dry wt post HD * Monitor lytes and renal fxn * Monitor BGs closely for hypoglycemia * Monitor PO intake closely / TENNIS CAMP INSTRUCTOR eval for appropriate texture * Rec wound eval -multiple wound photos add Woody 1pkt BID, Nephrovite x 1 (3) Lower extremity cellulitis Assessment & Plan: worsening wound as compared to prior podiatry input appreciated vascular consult pending US studies may need amputation Abx as per ID will follow with recs plain films as above thank you (4) Non compliance with medical treatment iVc Wise Nov 13, 2018 21:57
[2018-11-13] MEDS ORDERED: HydrALAZINE 50mg tab ORAL SCH (22:00)
[2018-11-13] MEDS ORDERED: Vancomycin 500mg/D5W 110ml IVPB SCH ×2 (22:00)
--- NOTE | 2018-11-14 00:30 | Consultation ---
DATE OF CONSULTATION: 11/12/2018 VASCULAR SURGERY CONSULTATION CONSULTING PHYSICIAN: Terry Martinez M.D. REFERRING PHYSICIAN: 1. Leonardo Rudolph M.D. 2. Alejo Stafford D.P.M REASON FOR CONSULTATION: Foot toe gangrene. HISTORY OF PRESENT ILLNESS: This is a 57-year-old female, who suffers from end-stage renal failure, on hemodialysis through a right arm AV shunt. The patient suffers from schizophrenia, obesity, diabetes mellitus, was found to have bilateral toe gangrene and necrosis, right worse than left. The patient already had an angiography at another hospital by other physician with failed attempt of revascularization. Vascular Surgery is now consulted for further evaluation and salvage of the lower extremity. The patient has no other complaints. She has been evaluated by Psychiatry, Medical Service PAST MEDICAL HISTORY: As above, history of end-stage renal failure, on hemodialysis through right arm AV shunt, diabetes mellitus, hypertension, schizophrenia. SOCIAL HISTORY: Unobtainable. FAMILY HISTORY: Unremarkable. REVIEW OF SYSTEMS: Unobtainable due to altered mental status. PHYSICAL EXAMINATION: VITAL SIGNS: The patient is currently afebrile 99.9, heart rate 68, respirations 16, blood pressure 146/67 with a mean of 93, saturation 98% on room air. She has palpable radial pulses. Right arm AV shunt has palpable thrill. LUNGS: Clear to auscultation. HEART: Regular rate and rhythm. ABDOMEN: Soft and nontender. EXTREMITIES: She has palpable femoral pulses. Absent popliteal and pedal pulses bilaterally. Feet are warm. She has extensive toe gangrene and necrosis of the right and less on the left distal toe. LABORATORY DATA: Revealed WBC of 8.4, hemoglobin 8.1, platelet count is 204. Sodium is 132, potassium 4.3, BUN is 41, creatinine 0.8, glucose is 94. IMPRESSION: 1. Ischemic lower extremity foot with gangrenous necrosis, right worse than left. Multilevel arterial occlusive disease with absent popliteal pedal pulses. 2. Multiple risk factors with end-stage renal failure, on hemodialysis, diabetes mellitus, hypertension, obesity. 3. Schizophrenia. PLAN AND RECOMMENDATIONS: 1. Medical optimization in progress. 2. Antibiotics per ID service. 3. Noninvasive duplex images were reviewed. 4. Angiography films were reviewed from outside hospital. 5. The patient will require a salvage lower extremity angiography and revascularization prior to toe gangrene foot amputation. 6. The above was discussed at length with the patient's nurse at bedside. Terry Martinez M.D. DR: ADAM JOB#: [id number] CC:
== END 2018-11-13 20:15 | DRG 720 ==
LOC: EDBD 22:30 → EMR 22:55 → 2W 23:55 → EDBEDREQSVC 11-07 00:39 → EDBEDREQ 11-07 00:50 → 2W 11-07 17:45 → 4E 11-08 16:56
PROC: 5A1D70Z Performance of Urinary Filtration, Intermittent, Less than 6 Hours Per Day (ICD-10-PCS; principal; 2018-11-07)
PROC: 30233N1 Transfusion of Nonautologous Red Blood Cells into Peripheral Vein, Percutaneous Approach (ICD-10-PCS; 2018-11-10)
DX: A41.9 Sepsis, unspecified organism (principal); E87.5 Hyperkalemia; N18.6 End stage renal disease; G93.41 Metabolic encephalopathy; I13.2 Hypertensive heart and chronic kidney disease with heart failure and with stage 5 chronic kidney disease, or end stage renal disease; I50.9 Heart failure, unspecified; E11.22 Type 2 diabetes mellitus with diabetic chronic kidney disease; G40.909 Epilepsy, unspecified, not intractable, without status epilepticus; E03.9 Hypothyroidism, unspecified; M86.8X7 Other osteomyelitis, ankle and foot; J44.9 Chronic obstructive pulmonary disease, unspecified; E11.621 Type 2 diabetes mellitus with foot ulcer; L97.519 Non-pressure chronic ulcer of other part of right foot with unspecified severity; E11.52 Type 2 diabetes mellitus with diabetic peripheral angiopathy with gangrene; I96 Gangrene, not elsewhere classified; F25.0 Schizoaffective disorder, bipolar type; L03.119 Cellulitis of unspecified part of limb; F33.1 Major depressive disorder, recurrent, moderate; Z91.14 Patient's other noncompliance with medication regimen; D63.1 Anemia in chronic kidney disease; K21.9 Gastro-esophageal reflux disease without esophagitis; Z85.038 Personal history of other malignant neoplasm of large intestine; Z86.19 Personal history of other infectious and parasitic diseases; Z91.15 Patient's noncompliance with renal dialysis; E11.40 Type 2 diabetes mellitus with diabetic neuropathy, unspecified; E66.01 Morbid (severe) obesity due to excess calories; I27.20 Pulmonary hypertension, unspecified; M51.27 Other intervertebral disc displacement, lumbosacral region; Z68.30 Body mass index [BMI] 30.0-30.9, adult; R00.1 Bradycardia, unspecified; F17.200 Nicotine dependence, unspecified, uncomplicated; Z79.4 Long term (current) use of insulin
CPT/HCPCS: 36415; 71045; 80048; 80053; 80202; 80299; 82009; 82140; 82550; 82553; 82607; 82728; 82746; 82962; 82977; 83036; 83540; 83550; 83605; 83735; 83880; 84100; 84443; 84484; 84550; 85007; 85025; 85651; 86140; 86706; 86850; 86900; 86901; 86920; 87040; 87081; 93005; 93925; 93970; 94640; 96365; 96366; 96368; 96375; 99291; J1815

== ENCOUNTER 2019-05-01 20:34 | Inpatient (IN) | payer MEDICARE, MEDICAID ==
[~2019-05-01] VITALS: Ht 162.6 cm; Wt 98.0 kg
[~2019-05-01 20:34] MED LIST changes: +ATIVAN1 MG ORAL; +BISACODYL5 MG RECTAL; +CARDIZEM30 M1 PO; +DEPAKOTE ER500 MG ORAL; +DUONEB 0.5-3(2.53 ML HHN; +GLUCAGON W/DILUE1 MG IM; +HYDRALAZINE HC100 MG ORAL; +KEPPRA1000 MG ORAL; +LACTULOSE20 GM/301 ORAL; +LEVOTHYROXINE75 MCG ORAL; +LIPITOR20 MG ORAL; +LISINOPRIL5 MG ORAL; +LONITEN2.5 MG PO; +NEPRO CARB STE237 ML PO; +NIFEDIPINE ER60 M2 ORAL; +PHOSLYRA667 MG/5 M PO; +QUETIAPINE FUM100 MG ORAL; +RETACRIT10000 UNIT SUBQ; +RISPERDAL2 MG ORAL; +SENNA8.6 M2 PO; +SYNTHROID100 MCG ORAL; +SYNTHROID75 MCG ORAL; +VANCOMYCIN1.25 GM/12 IV; +VITAMIN B-1100 MG ORAL; +ZOLOFT25 MG ORAL; +ZOSYN 2.252.25 GM/51 IVPB
--- NOTE | 2019-05-01 20:37 | Emergency Room Report ---
History of Present Illness Present Illness HPI Patient is a 58-year-old female sent in from [facility] after increased fever and nonproductive cough. She had been noted to have nonproductive cough as well as fever. She had prior history of end-stage renal disease and is currently on dialysis. Prior history of amputation to the foot. Reports having some associated shortness of breath. Patient was sent in from [facility] Allergies: Coded Allergies: No Known Allergies (Verified , 08/23/06) Patient History Past Medical History: see triage record Reviewed Nursing Documentation: PMH: Agreed; PSxH: Agreed Review of Systems All Other Systems: limited - Limited by mental status Physical Exam Sp02 EP Interpretation: reviewed, normal General Appearance: normal inspection, alert, GCS 15, Chronically Ill Head: atraumatic ENT: normal ENT inspection, hearing grossly normal, normal voice Neck: normal inspection, full range of motion, supple, no bony tend Respiratory: normal inspection, no respiratory distress, no retraction, no wheezing Cardiovascular #1: regular rate, rhythm, edema Gastrointestinal: normal inspection, normal bowel sounds, non tender, soft, no guarding, no hernia Genitourinary: no CVA tenderness Musculoskeletal: normal inspection, back normal, normal range of motion Neurologic: alert, motor strength/tone normal, mold technician III-XII nml as tested, oriented x3, responsive, speech normal, normal inspection Psychiatric: normal inspection, judgement/insight normal, mood/affect normal Skin: other - bilateral leg erythema. Medical Decision Making Diagnostic Impression: Primary Impression: Schizoaffective disorder, bipolar type Additional Impressions: Diabetes mellitus, type II Lower extremity cellulitis Pulmonary edema ER Course Patient presented for fever and cough. Differential diagnosis include was not limited to pneumonia, viral respiratory infection, influenza, Covid 19, sepsis among others. Because of complexity of patient's case laboratory tests and imaging studies were ordered. Patient noted to have nonproductive cough and no recent travel history or known history of sick contacts. She was placed in respiratory isolation. Blood cultures were obtained. Chest x-ray 1 view read by radiology showed bilateral patchy infiltrates. Patient appears to be somewhat fluid overloaded. Laboratory testing showed normal white blood count with a normal lymphocyte count. Potassium is minimally elevated. Dr. Butler was contacted for [facility] for inpatient management. Labs Test 05/01/19 20:50 White Blood Count 5.4 K/UL (4.8-10.8) Red Blood Count 4.39 M/UL (4.20-5.40) Hemoglobin 13.5 G/DL (12.0-16.0) Hematocrit 43.8 % (37.0-47.0) Mean Corpuscular Volume 100 FL (80-99) Mean Corpuscular Hemoglobin 30.7 PG (27.0-31.0) Mean Corpuscular Hemoglobin Concent 30.8 G/DL (32.0-36.0) Red Cell Distribution Width 18.9 % (11.6-14.8) Platelet Count 138 K/UL (150-450) Mean Platelet Volume 8.0 FL (6.5-10.1) Neutrophils (%) (Auto) 57.7 % (45.0-75.0) Lymphocytes (%) (Auto) 20.7 % (20.0-45.0) Monocytes (%) (Auto) 7.8 % (1.0-10.0) Eosinophils (%) (Auto) 12.4 % (0.0-3.0) Basophils (%) (Auto) 1.4 % (0.0-2.0) Sodium Level 137 MMOL/L (136-145) Potassium Level 5.3 MMOL/L (3.5-5.1) Chloride Level 99 MMOL/L (98-107) Carbon Dioxide Level 28 MMOL/L (21-32) Anion Gap 10 mmol/L (5-15) Blood Urea Nitrogen 33 mg/dL (7-18) Creatinine 5.0 MG/DL (0.55-1.30) Estimat Glomerular Filtration Rate 8.9 mL/min (>60) Glucose Level 114 MG/DL (74-106) Calcium Level 9.7 MG/DL (8.5-10.1) EKG Diagnostic Results Rate: normal Rhythm: NSR ST Segments: other - Right bundle branch block Status: unchanged Disposition: ADMITTED INPATIENT Condition: Stable Johnson Han MD May 01, 2019 20:37
[2019-05-01 20:40] VITALS: BP 160/80
--- NOTE | 2019-05-01 20:40 | NUR ---
ED Nurse Note: PT BIBA [facility] C/O SNEEZING, CONGESTION AND COUGH X2 DAYS. DOES NOT PRESENT WITH FEVER. PT IS PLACED WITH MASK IN TRAUMA WITH HEPA FILTER ACTIVE. Addendum: 05/02/19 at 0212 by [email or web address] ED Nurse Note: PT BIBA [facility] C/O SNEEZING, CONGESTION AND COUGH X2 DAYS. DOES NOT PRESENT WITH FEVER. PT IS PLACED WITH MASK IN TRAUMA WITH HEPA FILTER ACTIVE. PT AAOX2, AMBULATORY
--- NOTE | 2019-05-01 20:50 | NUR ---
ED Nurse Note: BLOOD COLLECTED AND SENT TO LAB
--- NOTE | 2019-05-01 21:10 | NUR ---
ED Nurse Note: XR AT BEDSIDE
[2019-05-01 21:23] LABS: BASOPHILS % (AUTO) 1.4 % (0.0-2.0); EOSINOPHILS % (AUTO) 12.4 % (0.0-3.0); HEMATOCRIT 43.8 % (37.0-47.0); HEMOGLOBIN 13.5 G/DL (12.0-16.0); LYMPHOCYTES % (AUTO) 20.7 % (20.0-45.0); MEAN CORPUSCULAR VOLUME 100 FL (80-99); MONOCYTES % (AUTO) 7.8 % (1.0-10.0); NEUTROPHILS % (AUTO) 57.7 % (45.0-75.0); PLATELET COUNT 138 K/UL (150-450); RED BLOOD COUNT 4.39 M/UL (4.20-5.40); RED CELL DISTRIBUTION WIDTH 18.9 % (11.6-14.8); WHITE BLOOD COUNT 5.4 K/UL (4.8-10.8)
[2019-05-01 21:37] LABS: ANION GAP 10 mmol/L (5-15); BLOOD UREA NITROGEN 33 mg/dL (7-18); CALCIUM 9.7 MG/DL (8.5-10.1); CARBON DIOXIDE 28 MMOL/L (21-32); CHLORIDE 99 MMOL/L (98-107); POTASSIUM 5.3 MMOL/L (3.5-5.1); SODIUM 137 MMOL/L (136-145)
[2019-05-01] MEDS ORDERED: Piperacillin/Tazobactam 3.375 GM in NS 110 ML IVPB ONE (21:45)
[2019-05-01 21:51] LABS: ALANINE AMINOTRANSFERASE 14 U/L (12-78); ALBUMIN 3.2 G/DL (3.4-5.0); ALBUMIN/GLOBULIN RATIO 0.8 (1.0-2.7); ALKALINE PHOSPHATASE 168 U/L (46-116); ASPARTATE AMINO TRANSFERASE 15 U/L (15-37); BILIRUBIN,TOTAL 0.7 MG/DL (0.2-1.0); PHOSPHORUS 6.6 MG/DL (2.5-4.9)
[2019-05-01 22:12] LABS: CKMB 5.2 NG/ML (0.0-3.6); CREATINE KINASE 44 U/L (26-308)
[2019-05-01 22:45] VITALS: BP 157/77
--- NOTE | 2019-05-01 22:51 | NUR ---
ED Nurse Note: PATIENT PLACED ON SOFT RESTRAINT PER ERMD ORDER. PATIENT APPEARS TO WANDER AROUND AND REMOVES MEDICAL DEVICES EVERY TIME. PT PLACED ON SOFT WRIST RESTRAINT X2. PULSES PRESENT.
[2019-05-01 23:15] VITALS: BP 149/91
[2019-05-01] MEDS: Haloperidol 5mg/ml Inj IM ONE ×2 (23:15→23:30)
[2019-05-01] MEDS ORDERED: DiphenhydrAMINE 50mg/ml Inj IVP ONE (23:15)
--- NOTE | 2019-05-01 23:15 | NUR ---
ED Nurse Note: pt spo2 90% on RA. placed on 2L NC.
[2019-05-02] VITALS (31 sets, daily range): BP systolic 95–196; BP diastolic 50–94
[2019-05-02] MEDS ORDERED: Zosyn 3.375gm inj ONE (00:24)
[2019-05-02] MEDS ORDERED: LORazepam Inj 2mg/ml 1ml IV ONE (01:15)
--- NOTE | 2019-05-02 01:15 | NUR ---
TRANSFER TO FLOOR: Patient transferred to [facility] via gurney accompanied by 1 rn 1tech in stable condition with 2l NC as ordered, per dr. Rudolph . Report given to Cindy MO. Belongings sent with patient
--- NOTE | 2019-05-02 01:30 | NUR ---
NURSE NOTES: Received report from Mark Brunner RN via telephone. Per report Pt is being admitted for cough and weakness x2 days. NKA, full code and hx of MRSA-N and VRE-R noted. Sz precautions. Pt reported to be alert and oriented x2-3, SR on tele monitor and on 2L NC. Pt reported to be a HD pt, days unknown but reported to be in records from [facility]. Skin intact. R upper arm shunt noted, L FA 20g IV catheter. Will confirm report finding when pt arrives on unit.
--- NOTE | 2019-05-02 01:40 | NUR ---
NURSE NOTES: Pt transferred from to SDU via gurney without incident, Pt arrived on unit and noted to be oriented x1-2. Pt able to state her name and aware of her location. Pt SR w/BBB on tele monitor with a HR of 70 noted. Pt noted to be without O2, circumoral cyanosis noted with a RR of 48 and an O2 saturation of 79% Pt immediately placed on nonrebreather and STAT ABG ordered. O2 saturation fluctuated from 71-91% and BP as low as 80/55 confirmed. Right upper arm AV shunt noted; thrill noted to be weak, bruit present. A small amount of bleeding noted as pt had removed pressure wrap from shunt. Immediately applied pressure and secured gauze with paper tape. Pt provided with partial bed bath. Very large stool noted to be dark brown in color with worms present. Will call Dr Rudolph for admission orders and regarding the above assessment. Addendum: 05/02/19 at 0649 by EZEKIEL BASURTO RN Bedside BG taken and noted at 114 mg/dL
--- NOTE | 2019-05-02 01:56 | NUR ---
ED Nurse Note: ativan 1mg scanned and primary rn went up to room 236 for administration. Per visit, pt condition has changed and could not administer the med. ermd and gas charger made aware. will return the med to [facility].
--- NOTE | 2019-05-02 02:15 | NUR ---
NURSE NOTES: Spoke with Dr Butler, covering for Dr Rudolph regarding pt assessment. Dr Salinas consulted with Dr Rm regarding pt findings and placed the following orders: Transfer pt to ICU, pt to be evaluated bedside for intubation. Vanco and Zosyn to be ordered as well as Lactic acid with AM labs. OB stool to be collected. Place waller catheter for accurate I&Os, Lasix 80mg IV ordered but held due to BP being 88/50 will endorse to [employer]IN[employer]. Will carry out orders.
--- NOTE | 2019-05-02 02:47 | NUR ---
TRANSFER TO FLOOR: Patient transferred to ICU, per Dr Butler. Report given to CHEPE Villa. Belongings transferred with patient.
--- NOTE | 2019-05-02 03:00 | NUR ---
NURSE NOTES: Received report from Calvin MO. Patient Came from SDU via gurney accompanied by 2 RN. Patient initially admitted in SDU and transferred in ICU per Dr Butler documentation engineer MD for Dr. Rudolph. Admitting Diagnosis Fluid overload,DM and Cellulitis patient with generalized edema. Multiple dry skin and scab on upper and lower extremities, left foot amputee Kerlix dressing intact, sacral redness. Patient on Non rebreather mask 100% satting 100%. BP 154/69 HR 68 Temp 92 Axillary applied qi hugger. placed patient on BIPAP 01/23 fi02 100% HOB elevated. Patient on bilateral soft wrist restraint. Hernandez intact with 20cc urine output in the bag. instructed patient to use call light for assistance. bed alarm on. bed locked and in low position. will continue plan of care.
--- NOTE | 2019-05-02 03:34 | NUR ---
NURSE NOTES: ER MD Dr. Rodriguez came and assessed the patient. patient satting 100% with BIPAP. no s/s of acute distress noted. will repeat ABG and inform Dr. Rodriguez.
[2019-05-02] MEDS ORDERED: Vancomycin 1 GM in NS 275 ML IVPB ONE (04:00)
--- NOTE | 2019-05-02 04:59 | NUR ---
NURSE NOTES: repeat ABG result reported to Dr. Rodriguez titrated fi02 to 70%. patient in bed awake,alert able to verbalize needs to staff. Continue on BIPAP / fi02 70% satting 100%. BP196/79 HR 67. will call MD for elevated BP
--- NOTE | 2019-05-02 05:20 | NUR ---
NURSE NOTES: Called Dr. Butler catheterization laboratory technician for and made aware of patient conditions and BP 198/79 MD gave orders noted and carried out.
--- NOTE | 2019-05-02 07:15 | NUR ---
NURSE NOTES: Seen and examined by Dr. Solis with HD order for today endorsed to am nurse
[2019-05-02 07:34] LABS: BASOPHILS % (AUTO) 0.3 % (0.0-2.0); EOSINOPHILS % (AUTO) 2.2 % (0.0-3.0); HEMATOCRIT 46.6 % (37.0-47.0); HEMOGLOBIN 14.9 G/DL (12.0-16.0); LYMPHOCYTES % (AUTO) 12.4 % (20.0-45.0); MEAN CORPUSCULAR VOLUME 98 FL (80-99); NEUTROPHILS % (AUTO) 78.1 % (45.0-75.0); PLATELET COUNT 123 K/UL (150-450); RED BLOOD COUNT 4.75 M/UL (4.20-5.40); RED CELL DISTRIBUTION WIDTH 16.9 % (11.6-14.8); WHITE BLOOD COUNT 4.9 K/UL (4.8-10.8)
--- NOTE | 2019-05-02 07:35 | NUR ---
HAND-OFF: Report given to Allan MO.
--- NOTE | 2019-05-02 07:40 | Consultation ---
Consult Note Consult Note I was asked to evaluate the patient for management of her hemodialysis while in the hospital Patient is known to me from her previous admissions When seen in ICU discussed with RN Patient currently on BiPAP Urgent hemodialysis and ultrafiltration ordered Patient is a 58-year-old female sent in from [facility] after increased fever and nonproductive cough. She had been noted to have nonproductive cough as well as fever. She had prior history of end-stage renal disease and is currently on dialysis. Prior history of amputation to the foot. Reports having some associated shortness of breath. Patient was sent in from [facility] Assessment/Plan Admitted for respiratory distress and CHF and volume overload Unknown date of her last dialysis Conditions: (1) ESRD (end stage renal disease) on dialysis (2) Altered level of consciousness / Encephalopathy metabolic (3) Schizoaffective disorder, bipolar type (4) h/o Hypothyroidism (5) Anemia in chronic renal disease Also: - Cellulitis both LE - End-stage renal disease, on hemodialysis. fistula right arm - HTN / Pulmonary HTN - Diabetes type 2. Others - Morbid obesity. - H/O Colon Cancer - H/O Hep C - H/O Depression and Bipolar disease - Psych disease uncoaporative --Bilateral leg numbness --diabetic neuropathy --L5-S1 disc protrusion Urgent hemodialysis ordered Blood pressure and blood sugar under control Per orders Eamon Solis MD May 02, 2019 07:40
--- NOTE | 2019-05-02 07:40 | NUR ---
NURSE NOTES: Report received from Daisy Mckeon RN.Pt resting in bed highly agitated, screaming, on bilat soft wrist restraints,on BIPAP 12/5 ,Fio2 at 70%,but pt non compliant very resistive to care,,SR up x3 HOB elevated bed lock in lowest position,will continue with plans of care.
--- NOTE | 2019-05-02 07:46 | History and Physical ---
History of Present Illness General Date patient seen: May 02, 2019 Time patient seen: 06:45 Reason for Hospitalization: Upper Respiratory Illness Present Illness HPI 57 year-old female known to our team from multiple previous admissions with history of ESRD on HD MWF through right upper extremity graft, obesity, schizophrenia, bipolar disorder, diabetes, hypertension, hyperlipidemia, chronic anemia who [facility] with subjective fever and dry cough, also noted to have redness and tenderness at site of right TMA. Patient admitted to telemetry overnight but transferred to ICU due to increased respiratory distress and need for NIPPV. Patient is lethargic, on BiPAP during my encounter. Information obtained from medical record Family Hx and Socila Hx: Unable to obtain due to medical condition Allergies: Coded Allergies: No Known Allergies (Verified , 08/23/06) Medication History Scheduled Aspirin* (Aspir 81*), 81 MG ORAL DAILY, (Reported) Atorvastatin Calcium* (Lipitor*), 20 MG ORAL BEDTIME, (Reported) Calcium Acetate (Phoslyra), 1,334 MG PO TID, (Reported) Epoetin Mau-Epbx (Retacrit), 10,000 UNIT SUBQ SUN-SUN-SUN Ferrous Sulfate* (Ferrous Sulfate*), 325 MG ORAL DAILY, (Reported) Hydralazine HCl (Hydralazine HCl), 50 MG ORAL Q8HR Lactulose (Lactulose*), 30 GM ORAL BID Levothyroxine Sodium* (Synthroid*), 100 MCG ORAL DAILY@0630 Nifedipine Xl* (Procardia Xl*), 60 MG ORAL BID Nut.tx.impaired Renal Fxn,Soy (Nepro Carb Steady), 237 ML PO DAILY, (Reported) Polyethylene Glycol 3350* (Miralax*), 17 GM ORAL DAILY, (Reported) Risperidone* (Risperdal*), 4 MG ORAL BEDTIME Thiamine Hcl* (Vitamin B-1*), 100 MG ORAL DAILY, (Reported) Vitamin B Cmplx/Vit C/Folic AC (Nephro-Denise Tablet), 1 TAB ORAL DAILY, (Reported ) Scheduled PRN Bisacodyl* (Dulcolax*), 10 MG RECTAL DAILY PRN for Constipation, (Reported) Hydralazine Hcl* (Hydralazine Hcl*), 25 MG ORAL Q4H PRN Ipratropium/Albuterol Sulfate (DuoNeb 0.5-3(2.5)mg/3ml), 3 ML HHN Q6HR PRN for Shortness of Breath, (Reported) Lorazepam* (Ativan*), 1 MG ORAL Q6H PRN Sennosides (Senna), 8.6 MG PO DAILY PRN for Constipation, (Reported) Patient History Healthcare decision maker Resuscitation status Full Code Advanced Directive on File No Review of Systems ROS Narrative Unable to obtain due to medical condition Physical Exam General Appearance: alert, confused, other - On bipap HEENT: atraumatic, anicteric Neck: normal alignment, supple Respiratory/Chest: lungs clear, normal breath sounds, no respiratory distress, no accessory muscle use Cardiovascular/Chest: normal rate, regular rhythm Abdomen: non tender, soft Extremities: non-tender, normal inspection Neurologic: 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 grossly normal Last 24 Hour Vital Signs Date Time Temp Pulse Resp B/P (MAP) Pulse Ox O2 Delivery O2 Flow Rate FiO2 05/02/19 06:47 59 14 99 70 05/02/19 05:43 198/79 05/02/19 04:51 65 14 99 70 05/02/19 03:42 68 16 10 Bi-Pap 100 05/02/19 03:15 68 16 100 100 05/02/19 03:02 Non-Rebreather 15.0 05/02/19 01:34 88 05/02/19 01:15 98.7 82 20 158/88 95 Nasal Cannula 2.0 05/02/19 01:15 98.7 82 20 158/88 95 Nasal Cannula 2.0 05/02/19 00:00 98.5 85 16 155/89 95 Nasal Cannula 2.0 05/01/19 23:15 81 16 149/91 90 Room Air 2.0 05/01/19 22:45 98.5 85 16 157/77 98 Room Air 05/01/19 22:45 88 16 Room Air 05/01/19 20:40 98.4 88 16 160/80 98 Room Air 05/01/19 20:35 98.8 82 16 160/80 (106) 98 Room Air Intake and Output 05/01/19 05/02/19 19:00 07:00 Output Total 80 ml Balance -80 ml Output Urine Total 80 ml # Bowel Movements 1 Laboratory Tests Test 05/01/19 20:50 05/02/19 02:03 05/02/19 04:35 05/02/19 05:48 White Blood Count 5.4 K/UL (4.8-10.8) 4.9 K/UL (4.8-10.8) Red Blood Count 4.39 M/UL (4.20-5.40) 4.75 M/UL (4.20-5.40) Hemoglobin 13.5 G/DL (12.0-16.0) 14.9 G/DL (12.0-16.0) Hematocrit 43.8 % (37.0-47.0) 46.6 % (37.0-47.0) Mean Corpuscular Volume 100 FL (80-99) H 98 FL (80-99) Mean Corpuscular Hemoglobin 30.7 PG (27.0-31.0) 31.4 PG (27.0-31.0) H Mean Corpuscular Hemoglobin Concent 30.8 G/DL (32.0-36.0) L 32.0 G/DL (32.0-36.0) Red Cell Distribution Width 18.9 % (11.6-14.8) H 16.9 % (11.6-14.8) H Platelet Count 138 K/UL (150-450) L 123 K/UL (150-450) L Mean Platelet Volume 8.0 FL (6.5-10.1) 6.3 FL (6.5-10.1) L Neutrophils (%) (Auto) 57.7 % (45.0-75.0) 78.1 % (45.0-75.0) H Lymphocytes (%) (Auto) 20.7 % (20.0-45.0) 12.4 % (20.0-45.0) L Monocytes (%) (Auto) 7.8 % (1.0-10.0) 7.0 % (1.0-10.0) Eosinophils (%) (Auto) 12.4 % (0.0-3.0) H 2.2 % (0.0-3.0) Basophils (%) (Auto) 1.4 % (0.0-2.0) 0.3 % (0.0-2.0) Sodium Level 137 MMOL/L (136-145) Pending Potassium Level 5.3 MMOL/L (3.5-5.1) H Pending Chloride Level 99 MMOL/L (98-107) Pending Carbon Dioxide Level 28 MMOL/L (21-32) Pending Anion Gap 10 mmol/L (5-15) Blood Urea Nitrogen 33 mg/dL (7-18) H Pending Creatinine 5.0 MG/DL (0.55-1.30) H Pending Estimat Glomerular Filtration Rate 8.9 mL/min (>60) Pending Glucose Level 114 MG/DL (74-106) H Pending Lactic Acid Level 0.70 mmol/L (0.4-2.0) Pending Calcium Level 9.7 MG/DL (8.5-10.1) Pending Phosphorus Level 6.6 MG/DL (2.5-4.9) H Magnesium Level 2.6 MG/DL (1.8-2.4) H Total Bilirubin 0.7 MG/DL (0.2-1.0) Pending Aspartate Amino Transf (AST/SGOT) 15 U/L (15-37) Pending Alanine Aminotransferase (ALT/SGPT) 14 U/L (12-78) Pending Alkaline Phosphatase 168 U/L (46-116) H Pending Total Creatine Kinase 44 U/L (26-308) Creatine Kinase MB 5.2 NG/ML (0.0-3.6) H Creatine Kinase MB Relative Index 11.8 Troponin I 0.004 ng/mL (0.000-0.056) Pro-B-Type Natriuretic Peptide > 99321 pg/mL (0-125) H Total Protein 7.2 G/DL (6.4-8.2) Pending Albumin 3.2 G/DL (3.4-5.0) L Pending Globulin 4.0 g/dL Pending Albumin/Globulin Ratio 0.8 (1.0-2.7) L Arterial Blood pH 7.319 (7.350-7.450) 7.272 (7.350-7.450) Arterial Blood Partial Pressure CO2 52.6 mmHg (35.0-45.0) H 43.3 mmHg (35.0-45.0) Arterial Blood Partial Pressure O2 77.7 mmHg (75.0-100.0) 143.7 mmHg (75.0-100.0) H Arterial Blood HCO3 26.4 mmol/L (22.0-26.0) H 19.5 mmol/L (22.0-26.0) L Arterial Blood Oxygen Saturation 94.3 % (95-100) L 98.6 % (95-100) Arterial Blood Base Excess -0.6 (-2-2) -7.1 (-2-2) L Vishal Test Positive Positive Test 05/02/19 06:20 Stool Occult Blood Pending Microbiology Date/Time Source Procedure Growth Status 05/01/19 20:50 Nasal Nares - Final Complete 05/01/19 20:50 Nasal Nares - Final Complete Height (Feet): 5 Height (Inches): 4.00 Weight (Pounds): 192 Medications Current Medications Medications (Trade) Dose Ordered Sig/Gabriele Route PRN Reason Start Time Stop Time Status Last Admin Dose Admin Dextrose (Dextrose 50%) 25 ml Q30M PRN IV Hypoglycemia 05/02/19 03:45 06/01/19 03:44 Dextrose (Dextrose 50%) 50 ml Q30M PRN IV Hypoglycemia 05/02/19 03:45 06/01/19 03:44 Heparin Sodium (Porcine) (Heparin 5000 units/ml) 5,000 units EVERY 12 HOURS SUBQ 05/02/19 09:00 06/16/19 08:59 Hydralazine HCl (Apresoline) 10 mg Q6H PRN IV For High Blood Pressure 05/02/19 05:30 06/01/19 05:29 05/02/19 05:43 Pantoprazole (Protonix) 40 mg DAILY IVP 05/02/19 09:00 06/01/19 08:59 Piperacillin Sod/ Tazobactam Sod 3.375 gm/Dextrose 55 ml @ 110 mls/hr Q12H IVPB 05/02/19 12:00 05/09/19 11:59 Vancomycin HCl (Vanco rx to dose) 1 ea DAILY PRN MISC Per rx protocol 05/02/19 09:00 06/01/19 03:14 Assessment/Plan Assessment/Plan: 57 year-old with history of ESRD on HD MWF through right upper extremity graft, obesity, schizophrenia, bipolar disorder, diabetes, hypertension, hyperlipidemia , chronic anemia who presented to the hospital with fever and cough #Acute hypoxic and hypercarbic respiratory failure #Suspected gram negative pneumonia (HCAP) #Bilateral infiltrates on CXR -admitted to ICU -continue NIPPV, repeeat ABG -continue vancomycin and Zosyn, monitor drug levels -check Procalcitonin and lactate -Pulmonology and ID consulted #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 -on IB antibiotics -consult wound care #ESRD #Fluid overload -Nephrology consult with Dr. Solis -Monitor electrolytes -Phosphate binders #Acute metabolic encephalopathy -will provide supportive care -fall and aspiration precautions -treat underlying acute medical issues #Schizophrenia and bipolar -continue outpatient psychiatric regimen -Dr. Beckett from psychiatry to see #Hypertensive urgency -Continue hydralazine, Nifedipine #DM type 2 -ISS #Epilepsy -Continue Keppra #Hypothyroidism -continue levothyroxine .I spent 75 minutes on this patient's case, and 35 mins was dedicated to critical care Critical Care Services performed include: Telemetry Review Hemodynamic measurement interpretation Laboratory data review and interpretation Radiology image review and interpretation Interpretation of ABG's Discussion of patient's care with ICU team, ICU Nursing staff and/or consulting services Norman Cooper MD May 02, 2019 07:46
[2019-05-02] MEDS ORDERED: Vancomycin 1 GM in NS 275 ML IVPB SCH (08:00)
[2019-05-02 08:05] LABS: ALANINE AMINOTRANSFERASE 18 U/L (12-78); ALBUMIN/GLOBULIN RATIO 0.8 (1.0-2.7); ALKALINE PHOSPHATASE 150 U/L (46-116); ANION GAP 13 mmol/L (5-15); ASPARTATE AMINO TRANSFERASE 22 U/L (15-37); BILIRUBIN,TOTAL 0.7 MG/DL (0.2-1.0); BLOOD UREA NITROGEN 37 mg/dL (7-18); CALCIUM 9.2 MG/DL (8.5-10.1); CARBON DIOXIDE 24 MMOL/L (21-32); CHLORIDE 99 MMOL/L (98-107); CREATININE 5.7 MG/DL (0.55-1.30); POTASSIUM 5.1 MMOL/L (3.5-5.1); SODIUM 136 MMOL/L (136-145)
[2019-05-02] MEDS: Heparin 5000 units/ml inj SUBQ SCH ×2 (09:00→21:00)
--- NOTE | 2019-05-02 09:00 | NUR ---
NURSE NOTES: Hemodialysis Nurse at bedside,with on going Hemodialysis,procedure tolerated well,pt sleeping quietly.
[2019-05-02] MEDS: Pantoprazole Inj IVP SCH (09:24)
[2019-05-02] MEDS: HydrALAZINE 50mg tab ORAL SCH ×3 (10:00→21:22)
[2019-05-02] MEDS: Aspirin EC 81mg tab ORAL SCH (10:00)
[2019-05-02 10:31] LABS: CHOLESTEROL 94 MG/DL (< 200); HDL CHOLESTEROL 37 MG/DL (40-60); TRIGLYCERIDES 68 MG/DL (30-150)
--- NOTE | 2019-05-02 10:50 | NUR ---
pt received hd by deirdre smith/tari 0750 to 1050 received pt from reji also endorded to reji/rn pt toerated well hd ,v/s stable uf 4000ml , clotted time a;3min v;3min bruit and thrill noted
[2019-05-02] MEDS ORDERED: Piperacillin/Tazobactam 3.375 GM in D5W 55 ML IVPB SCH ×4 (12:00)
--- NOTE | 2019-05-02 12:00 | NUR ---
NURSE NOTES: Hemodialysis done,pt woke up screaming again and very combative able to get out from the restraints and pulled out IV to LFA
--- NOTE | 2019-05-02 12:03 | Diagnostic Imaging Report ---
Indication: Dyspnea Comparison: 02/22/2019 A single view chest radiograph was obtained. Findings: Pulmonary vascular congestion suspected with prominent pulmonary vascularity and interstitial densities with cardiomegaly. Costophrenic angles are well-visualized. Bones may be slightly osteopenic. Aorta is calcified. IMPRESSION: Suspected CHF
--- NOTE | 2019-05-02 12:48 | Consultation ---
History of Present Illness General Date patient seen: May 02, 2019 Chief Complaint: Upper Respiratory Illness Present Illness HPI This is a pleasant 50-year-old female well-known to me from prior admissions with cared for in the past that has been in nursing facility and recently developed a upper respiratory illness identified to have abnormal labs and brought to [facility] for evaluation at which time found to be fairly ill and transferred to the ICU for further care and management. Still has multiple concerning issues including possible infection in the leg surgery called to evaluate and assist with care. Patient seen, patient Froilan, chart reviewed. Patient has had prior known osteomyelitis infection in the feet with intervention by podiatry in the past. She remains to have multiple skin lesions in different stages of healing as well. She is with psych history and not the best historian. Allergies: Coded Allergies: No Known Allergies (Verified , 08/23/06) Medication History Scheduled Aspirin* (Aspir 81*), 81 MG ORAL DAILY, (Reported) Atorvastatin Calcium* (Lipitor*), 20 MG ORAL BEDTIME, (Reported) Calcium Acetate (Phoslyra), 1,334 MG PO TID, (Reported) Epoetin Mau-Epbx (Retacrit), 10,000 UNIT SUBQ SUN-SUN-SUN Ferrous Sulfate* (Ferrous Sulfate*), 325 MG ORAL DAILY, (Reported) Hydralazine HCl (Hydralazine HCl), 50 MG ORAL Q8HR Lactulose (Lactulose*), 30 GM ORAL BID Levothyroxine Sodium* (Synthroid*), 100 MCG ORAL DAILY@0630 Nifedipine Xl* (Procardia Xl*), 60 MG ORAL BID Nut.tx.impaired Renal Fxn,Soy (Nepro Carb Steady), 237 ML PO DAILY, (Reported) Polyethylene Glycol 3350* (Miralax*), 17 GM ORAL DAILY, (Reported) Risperidone* (Risperdal*), 4 MG ORAL BEDTIME Thiamine Hcl* (Vitamin B-1*), 100 MG ORAL DAILY, (Reported) Vitamin B Cmplx/Vit C/Folic AC (Nephro-Denise Tablet), 1 TAB ORAL DAILY, (Reported ) Scheduled PRN Bisacodyl* (Dulcolax*), 10 MG RECTAL DAILY PRN for Constipation, (Reported) Hydralazine Hcl* (Hydralazine Hcl*), 25 MG ORAL Q4H PRN Ipratropium/Albuterol Sulfate (DuoNeb 0.5-3(2.5)mg/3ml), 3 ML HHN Q6HR PRN for Shortness of Breath, (Reported) Lorazepam* (Ativan*), 1 MG ORAL Q6H PRN Sennosides (Senna), 8.6 MG PO DAILY PRN for Constipation, (Reported) Patient History Limited by: medical condition History Provided By: Medical Record, PMD Healthcare decision maker Resuscitation status Full Code Advanced Directive on File No Past Medical/Surgical History Past Medical/Surgical History: (1) Thrombocytopenia (2) HCAP (healthcare-associated pneumonia) (3) Sepsis (4) Encephalopathy (5) Fluid overload (6) CHF (congestive heart failure) (7) Bradycardia (8) Diabetes mellitus, type II (9) Hypothyroidism (10) Costochondritis (11) GERD (gastroesophageal reflux disease) (12) HTN (hypertension) (13) Anemia in chronic renal disease (14) Cellulitis of arm, right (15) Clotted renal dialysis arteriovenous graft (16) ESRD (end stage renal disease) on dialysis (17) Non compliance with medical treatment (18) Obesity (BMI 30-39.9) (19) Seizure disorder (20) Hepatitis-C (21) Non-compliance with renal dialysis (22) Pulmonary edema (23) Pneumonia (24) History of colon cancer (25) Schizoaffective disorder, bipolar type (26) Lower extremity cellulitis (27) MDD (major depressive disorder), recurrent episode, moderate (28) Symptomatic anemia (29) Foot ulcer due to secondary DM (30) Diabetes mellitus type 2 with neurological manifestations (31) Acute metabolic encephalopathy (32) Altered level of consciousness Review of Systems All Other Systems: negative except mentioned in HPI Physical Exam General Appearance: no apparent distress, alert Lines, tubes and drains: peripheral HEENT: mucous membranes moist Neck: normal inspection Respiratory/Chest: no respiratory distress, no accessory muscle use, decreased breath sounds Cardiovascular/Chest: regular rhythm Abdomen: soft, no organomegaly, no mass Extremities: non-tender, inflammation, slow capillary refill, other Skin Exam: warm/dry Neurologic: alert Last 24 Hour Vital Signs Date Time Temp Pulse Resp B/P (MAP) Pulse Ox O2 Delivery O2 Flow Rate FiO2 05/02/19 12:32 63 15 100 65 05/02/19 11:00 60 15 121/59 (79) 100 05/02/19 10:00 64 17 153/65 (94) 100 05/02/19 09:00 64 16 173/89 (117) 100 05/02/19 08:53 65 14 99 65 05/02/19 08:00 15.0 100 05/02/19 08:00 67 05/02/19 08:00 Bi-pap 15.0 05/02/19 08:00 97.6 64 16 156/59 (91) 100 05/02/19 07:00 65 16 136/55 (82) 96 05/02/19 06:47 59 14 99 70 05/02/19 06:30 61 13 150/50 (83) 98 05/02/19 06:00 64 14 139/81 (100) 98 05/02/19 05:48 63 12 188/68 (108) 96 05/02/19 05:43 198/79 05/02/19 05:07 69 13 196/79 (118) 97 05/02/19 05:00 66 11 188/79 (115) 98 05/02/19 04:51 65 14 99 70 05/02/19 04:42 66 13 186/74 (111) 100 05/02/19 04:30 66 13 182/86 (118) 100 05/02/19 04:15 67 12 177/77 (110) 100 05/02/19 04:00 Bi-pap 05/02/19 04:00 15.0 100 05/02/19 04:00 97.7 67 12 161/77 (105) 100 05/02/19 03:45 67 12 169/72 (104) 100 05/02/19 03:42 68 16 10 Bi-Pap 100 05/02/19 03:30 68 13 164/78 (106) 100 05/02/19 03:15 70 13 100 05/02/19 03:15 68 16 100 100 05/02/19 03:08 70 14 154/69 (97) 100 05/02/19 03:02 Non-Rebreather 15.0 05/02/19 03:00 92.4 70 14 100 05/02/19 01:34 88 05/02/19 01:15 98.7 82 20 158/88 95 Nasal Cannula 2.0 05/02/19 01:15 98.7 82 20 158/88 95 Nasal Cannula 2.0 05/02/19 00:00 98.5 85 16 155/89 95 Nasal Cannula 2.0 05/01/19 23:15 81 16 149/91 90 Room Air 2.0 05/01/19 22:45 98.5 85 16 157/77 98 Room Air 05/01/19 22:45 88 16 Room Air 05/01/19 20:40 98.4 88 16 160/80 98 Room Air 05/01/19 20:35 98.8 82 16 160/80 (106) 98 Room Air Intake and Output 05/01/19 05/02/19 19:00 07:00 Output Total 80 ml Balance -80 ml Output Urine Total 80 ml # Bowel Movements 1 Laboratory Tests Test 05/01/19 20:50 05/02/19 02:03 05/02/19 04:35 05/02/19 05:48 White Blood Count 5.4 K/UL (4.8-10.8) 4.9 K/UL (4.8-10.8) Red Blood Count 4.39 M/UL (4.20-5.40) 4.75 M/UL (4.20-5.40) Hemoglobin 13.5 G/DL (12.0-16.0) 14.9 G/DL (12.0-16.0) Hematocrit 43.8 % (37.0-47.0) 46.6 % (37.0-47.0) Mean Corpuscular Volume 100 FL (80-99) H 98 FL (80-99) Mean Corpuscular Hemoglobin 30.7 PG (27.0-31.0) 31.4 PG (27.0-31.0) H Mean Corpuscular Hemoglobin Concent 30.8 G/DL (32.0-36.0) L 32.0 G/DL (32.0-36.0) Red Cell Distribution Width 18.9 % (11.6-14.8) H 16.9 % (11.6-14.8) H Platelet Count 138 K/UL (150-450) L 123 K/UL (150-450) L Mean Platelet Volume 8.0 FL (6.5-10.1) 6.3 FL (6.5-10.1) L Neutrophils (%) (Auto) 57.7 % (45.0-75.0) 78.1 % (45.0-75.0) H Lymphocytes (%) (Auto) 20.7 % (20.0-45.0) 12.4 % (20.0-45.0) L Monocytes (%) (Auto) 7.8 % (1.0-10.0) 7.0 % (1.0-10.0) Eosinophils (%) (Auto) 12.4 % (0.0-3.0) H 2.2 % (0.0-3.0) Basophils (%) (Auto) 1.4 % (0.0-2.0) 0.3 % (0.0-2.0) Sodium Level 137 MMOL/L (136-145) 136 MMOL/L (136-145) Potassium Level 5.3 MMOL/L (3.5-5.1) H 5.1 MMOL/L (3.5-5.1) Chloride Level 99 MMOL/L (98-107) 99 MMOL/L (98-107) Carbon Dioxide Level 28 MMOL/L (21-32) 24 MMOL/L (21-32) Anion Gap 10 mmol/L (5-15) 13 mmol/L (5-15) Blood Urea Nitrogen 33 mg/dL (7-18) H 37 mg/dL (7-18) H Creatinine 5.0 MG/DL (0.55-1.30) H 5.7 MG/DL (0.55-1.30) H Estimat Glomerular Filtration Rate 8.9 mL/min (>60) 7.6 mL/min (>60) Glucose Level 114 MG/DL (74-106) H 75 MG/DL (74-106) Lactic Acid Level 0.70 mmol/L (0.4-2.0) 0.90 mmol/L (0.4-2.0) Calcium Level 9.7 MG/DL (8.5-10.1) 9.2 MG/DL (8.5-10.1) Phosphorus Level 6.6 MG/DL (2.5-4.9) H Magnesium Level 2.6 MG/DL (1.8-2.4) H Total Bilirubin 0.7 MG/DL (0.2-1.0) 0.7 MG/DL (0.2-1.0) Aspartate Amino Transf (AST/SGOT) 15 U/L (15-37) 22 U/L (15-37) Alanine Aminotransferase (ALT/SGPT) 14 U/L (12-78) 18 U/L (12-78) Alkaline Phosphatase 168 U/L (46-116) H 150 U/L (46-116) H Total Creatine Kinase 44 U/L (26-308) Creatine Kinase MB 5.2 NG/ML (0.0-3.6) H Creatine Kinase MB Relative Index 11.8 Troponin I 0.004 ng/mL (0.000-0.056) Pro-B-Type Natriuretic Peptide > 81266 pg/mL (0-125) H Total Protein 7.2 G/DL (6.4-8.2) 6.7 G/DL (6.4-8.2) Albumin 3.2 G/DL (3.4-5.0) L 3.0 G/DL (3.4-5.0) L Globulin 4.0 g/dL 3.7 g/dL Albumin/Globulin Ratio 0.8 (1.0-2.7) L 0.8 (1.0-2.7) L Arterial Blood pH 7.319 (7.350-7.450) 7.272 (7.350-7.450) Arterial Blood Partial Pressure CO2 52.6 mmHg (35.0-45.0) H 43.3 mmHg (35.0-45.0) Arterial Blood Partial Pressure O2 77.7 mmHg (75.0-100.0) 143.7 mmHg (75.0-100.0) H Arterial Blood HCO3 26.4 mmol/L (22.0-26.0) H 19.5 mmol/L (22.0-26.0) L Arterial Blood Oxygen Saturation 94.3 % (95-100) L 98.6 % (95-100) Arterial Blood Base Excess -0.6 (-2-2) -7.1 (-2-2) L Vishal Test Positive Positive Test 05/02/19 05:58 05/02/19 06:20 Hemoglobin A1c 4.5 % (4.3-6.0) C-Reactive Protein, Quantitative 0.7 mg/dL (0.00-0.90) Pro-B-Type Natriuretic Peptide > 66729 pg/mL (0-125) H Triglycerides Level 68 MG/DL (30-150) Cholesterol Level 94 MG/DL (< 200) LDL Cholesterol 43 mg/dL (<100) HDL Cholesterol 37 MG/DL (40-60) L Cholesterol/HDL Ratio 2.5 (3.3-4.4) L Thyroid Stimulating Hormone (TSH) 6.229 uiU/mL (0.358-3.740) Stool Occult Blood Negative (NEGATIVE) Microbiology Date/Time Source Procedure Growth Status 05/01/19 20:50 Nasal Nares - Final Complete 05/01/19 20:50 Nasal Nares - Final Complete Height (Feet): 5 Height (Inches): 4.00 Weight (Pounds): 185 Medications Current Medications Medications (Trade) Dose Ordered Sig/Gabriele Route PRN Reason Start Time Stop Time Status Last Admin Dose Admin Aspirin (Ecotrin) 81 mg DAILY ORAL 05/02/19 10:00 06/16/19 09:59 Atorvastatin Calcium (Lipitor) 20 mg BEDTIME ORAL 05/02/19 21:00 06/01/19 20:59 Dextrose (Dextrose 50%) 25 ml Q30M PRN IV Hypoglycemia 05/02/19 03:45 06/01/19 03:44 Dextrose (Dextrose 50%) 50 ml Q30M PRN IV Hypoglycemia 05/02/19 03:45 06/01/19 03:44 Heparin Sodium (Porcine) (Heparin 5000 units/ml) 5,000 units EVERY 12 HOURS SUBQ 05/02/19 09:00 06/16/19 08:59 Hydralazine HCl (Apresoline) 10 mg Q6H PRN IV For High Blood Pressure 05/02/19 05:30 06/01/19 05:29 05/02/19 05:43 Hydralazine HCl (Apresoline) 50 mg Q8HR ORAL 05/02/19 10:00 06/01/19 09:59 Nifedipine (Procardia XL) 60 mg BID ORAL 05/02/19 18:00 06/01/19 17:59 Pantoprazole (Protonix) 40 mg DAILY IVP 05/02/19 09:00 06/01/19 08:59 05/02/19 09:24 Piperacillin Sod/ Tazobactam Sod 2.25 gm/Dextrose 55 ml @ 110 mls/hr Q8HR IV 05/02/19 22:00 05/09/19 21:59 Piperacillin Sod/ Tazobactam Sod 3.375 gm/Dextrose 55 ml @ 110 mls/hr Q12H IVPB 05/02/19 12:00 05/02/19 14:00 Risperidone (RisperDAL) 4 mg BEDTIME ORAL 05/02/19 21:00 06/16/19 20:59 Vancomycin HCl (Vanco rx to dose) 1 ea DAILY PRN MISC Per rx protocol 05/02/19 09:00 06/01/19 03:14 Assessment/Plan Problem List: (1) Fluid overload Assessment & Plan: Patient with fluid overload BNP elevated pending cardiology input Likely respiratory component from this as well explaining URI Diurese Trend labs Pulmonary vascular congestion suspected with prominent pulmonary vascularity and interstitial densities with cardiomegaly. Costophrenic angles are well- visualized. Bones may be slightly osteopenic. Aorta is calcified. IMPRESSION: Suspected CHF ICD Codes: E87.70 - Fluid overload, unspecified SNOMED: 60744075 (2) Lower extremity cellulitis Assessment & Plan: Patient with right TMA prior wound postoperative care had been provided for significant period time as it was improving. Some wound dehiscence identified. Mild cellulitis around the wound site. Antibiotics per infectious disease We will monitor closely over the next 24 hours if further surgical dimension necessary Furthermore identified to have a sacral deep tissue injury upon admission area of erythema 3 cm x 3 cm with superficial epidermal skin loss no dermal opening will monitor closely turn every 2 hours local care with skin protectant and foam dressing Thank you will follow with recommendations ICD Codes: L03.119 - Cellulitis of unspecified part of limb SNOMED: 021662624 (3) Foot ulcer due to secondary DM Assessment & Plan: s/p tma r ICD Codes: E13.621 - Other specified diabetes mellitus with foot ulcer; L97.509 - Non-pressure chronic ulcer of other part of unspecified foot with unspecified severity SNOMED: 0068592, [id number] Vic Wise May 02, 2019 12:48
--- NOTE | 2019-05-02 13:52 | NUR ---
NURSE NOTES:WOUND CARE NOTES:Pt presented on admission with DTPI Sacrum(L)2.2cm x (W)2.6cm. Base of wound is maroon and indurated with 3 small openings noted. No exudate noted. Pt yelled when wound minimally palpated. No erythema or evidence of further skin breakdown periwound. Moisture Intertrigo noted to abdominal folds ,bilat groin and labia majora. Affected areas are erythematous with denuded areas abdominal folds and L groin areas. R TMA with an area of dehiscence at distal/lateral aspect of incision(L)0.9cm x (W)2.7cm. Base of wound is pink but dry. Periwound without induration or erythema. DTPI R heel . Base of injury is maroon and fluctuant. (L)4.5cm x (W)8cm. L heel is boggy with non-blanchable erythema(L)3.6cm x (W)7.4cm. Stable dry eschar noted to L st metatarsal head. Stable eschar dorsal L 2nd metatarsal. Tx.Plan: Swab wound R TMA with Betadine. Cover with ABD pad and wrap with Kerlix every 3 days and prn. Swab L st metatarsal head and dorsal R 2nd metatarsals with Betadine every 3 days and prn. Apply Cavilon Skin Barrier to both heels. Cover each heel with Optifoam drsg.Change every 7 days and prn. Apply Moisture Barrier Paste to abdominal folds, R and L groin and perineum with each incontinence care. APM/YADIEL Mattress overlay. Off-load heels with pillow.
--- NOTE | 2019-05-02 14:57 | Pulmonolgy Critical Care Note ---
Critical Care - Asmt/Plan Assessment/Plan: Pulmonary Critical Medicine Consultation HPI Patient is a 57 year-old female with Past Medical History of ESRD on HD (MWF right upper extremity graft), Obesity, Schizophrenia, Bipolar Disorder, Diabetes , Hypertension, Hyperlipidemia, Chronic anemia. Admitted from SNF with subjective fever, dry cough, redness and tenderness at site of right TMA. Noted to have worsening respiratory distress, improved on NIPPV. Patient not able to provide history Allergies: No Known Allergies Past Medical History: ESRD on HD (MWF right upper extremity graft), Obesity, Schizophrenia, Bipolar Disorder, Diabetes, Hypertension, Hyperlipidemia, Hypothyroidism, Chronic anemia Medication History Scheduled Aspirin* (Aspir 81*), 81 MG ORAL DAILY, (Reported) Atorvastatin Calcium* (Lipitor*), 20 MG ORAL BEDTIME, (Reported) Calcium Acetate (Phoslyra), 1,334 MG PO TID, (Reported) Epoetin Mau-Epbx (Retacrit), 10,000 UNIT SUBQ SUN-SUN-SUN Ferrous Sulfate* (Ferrous Sulfate*), 325 MG ORAL DAILY, (Reported) Hydralazine HCl (Hydralazine HCl), 50 MG ORAL Q8HR Lactulose (Lactulose*), 30 GM ORAL BID Levothyroxine Sodium* (Synthroid*), 100 MCG ORAL DAILY@0630 Nifedipine Xl* (Procardia Xl*), 60 MG ORAL BID Nut.tx.impaired Renal Fxn,Soy (Nepro Carb Steady), 237 ML PO DAILY, (Reported) Polyethylene Glycol 3350* (Miralax*), 17 GM ORAL DAILY, (Reported) Risperidone* (Risperdal*), 4 MG ORAL BEDTIME Thiamine Hcl* (Vitamin B-1*), 100 MG ORAL DAILY, (Reported) Vitamin B Cmplx/Vit C/Folic AC (Nephro-Denise Tablet), 1 TAB ORAL DAILY, (Reported ) Scheduled PRN Bisacodyl* (Dulcolax*), 10 MG RECTAL DAILY PRN for Constipation, (Reported) Hydralazine Hcl* (Hydralazine Hcl*), 25 MG ORAL Q4H PRN Ipratropium/Albuterol Sulfate (DuoNeb 0.5-3(2.5)mg/3ml), 3 ML HHN Q6HR PRN for Shortness of Breath, (Reported) Lorazepam* (Ativan*), 1 MG ORAL Q6H PRN Sennosides (Senna), 8.6 MG PO DAILY PRN for Constipation, (Reported) FH: NA SH: NA ROS Narrative Unable to obtain due to medical condition Physical Exam General Appearance: awake, chronically ill appearing, confused, other - On bipap HEENT: atraumatic, anicteric Neck: normal alignment, supple Respiratory/Chest: lungs clear, normal breath sounds, no respiratory distress, no accessory muscle use Cardiovascular/Chest: normal rate, regular rhythm Abdomen: non tender, soft Extremities: non-tender, normal inspection, no edema 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: 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 Vital Signs Noted Date Time Temp Pulse Resp B/P (MAP) Pulse Ox O2 Delivery O2 Flow Rate FiO2 05/02/19 06:47 59 14 99 70 05/02/19 05:43 198/79 05/02/19 04:51 65 14 99 70 05/02/19 03:42 68 16 10 Bi-Pap 100 05/02/19 03:15 68 16 100 100 05/02/19 03:02 Non-Rebreather 15.0 05/02/19 01:34 88 05/02/19 01:15 98.7 82 20 158/88 95 Nasal Cannula 2.0 05/02/19 01:15 98.7 82 20 158/88 95 Nasal Cannula 2.0 05/02/19 00:00 98.5 85 16 155/89 95 Nasal Cannula 2.0 05/01/19 23:15 81 16 149/91 90 Room Air 2.0 05/01/19 22:45 98.5 85 16 157/77 98 Room Air 05/01/19 22:45 88 16 Room Air 05/01/19 20:40 98.4 88 16 160/80 98 Room Air 05/01/19 20:35 98.8 82 16 160/80 (106) 98 Room Air Intake and Output 05/01/19 05/02/19 19:00 07:00 Output Total 80 ml Balance -80 ml Output Urine Total 80 ml # Bowel Movements 1 Laboratory Tests Noted Test 05/01/19 20:50 05/02/19 02:03 05/02/19 04:35 05/02/19 05:48 White Blood Count 5.4 K/UL (4.8-10.8) 4.9 K/UL (4.8-10.8) Red Blood Count 4.39 M/UL (4.20-5.40) 4.75 M/UL (4.20-5.40) Hemoglobin 13.5 G/DL (12.0-16.0) 14.9 G/DL (12.0-16.0) Hematocrit 43.8 % (37.0-47.0) 46.6 % (37.0-47.0) Mean Corpuscular Volume 100 FL (80-99) H 98 FL (80-99) Mean Corpuscular Hemoglobin 30.7 PG (27.0-31.0) 31.4 PG (27.0-31.0) H Mean Corpuscular Hemoglobin Concent 30.8 G/DL (32.0-36.0) L 32.0 G/DL (32.0-36.0) Red Cell Distribution Width 18.9 % (11.6-14.8) H 16.9 % (11.6-14.8) H Platelet Count 138 K/UL (150-450) L 123 K/UL (150-450) L Mean Platelet Volume 8.0 FL (6.5-10.1) 6.3 FL (6.5-10.1) L Neutrophils (%) (Auto) 57.7 % (45.0-75.0) 78.1 % (45.0-75.0) H Lymphocytes (%) (Auto) 20.7 % (20.0-45.0) 12.4 % (20.0-45.0) L Monocytes (%) (Auto) 7.8 % (1.0-10.0) 7.0 % (1.0-10.0) Eosinophils (%) (Auto) 12.4 % (0.0-3.0) H 2.2 % (0.0-3.0) Basophils (%) (Auto) 1.4 % (0.0-2.0) 0.3 % (0.0-2.0) Sodium Level 137 MMOL/L (136-145) Pending Potassium Level 5.3 MMOL/L (3.5-5.1) H Pending Chloride Level 99 MMOL/L (98-107) Pending Carbon Dioxide Level 28 MMOL/L (21-32) Pending Anion Gap 10 mmol/L (5-15) Blood Urea Nitrogen 33 mg/dL (7-18) H Pending Creatinine 5.0 MG/DL (0.55-1.30) H Pending Estimat Glomerular Filtration Rate 8.9 mL/min (>60) Pending Glucose Level 114 MG/DL (74-106) H Pending Lactic Acid Level 0.70 mmol/L (0.4-2.0) Pending Calcium Level 9.7 MG/DL (8.5-10.1) Pending Phosphorus Level 6.6 MG/DL (2.5-4.9) H Magnesium Level 2.6 MG/DL (1.8-2.4) H Total Bilirubin 0.7 MG/DL (0.2-1.0) Pending Aspartate Amino Transf (AST/SGOT) 15 U/L (15-37) Pending Alanine Aminotransferase (ALT/SGPT) 14 U/L (12-78) Pending Alkaline Phosphatase 168 U/L (46-116) H Pending Total Creatine Kinase 44 U/L (26-308) Creatine Kinase MB 5.2 NG/ML (0.0-3.6) H Creatine Kinase MB Relative Index 11.8 Troponin I 0.004 ng/mL (0.000-0.056) Pro-B-Type Natriuretic Peptide > 98772 pg/mL (0-125) H Total Protein 7.2 G/DL (6.4-8.2) Pending Albumin 3.2 G/DL (3.4-5.0) L Pending Globulin 4.0 g/dL Pending Albumin/Globulin Ratio 0.8 (1.0-2.7) L Arterial Blood pH 7.319 (7.350-7.450) 7.272 (7.350-7.450) Arterial Blood Partial Pressure CO2 52.6 mmHg (35.0-45.0) H 43.3 mmHg (35.0-45.0) Arterial Blood Partial Pressure O2 77.7 mmHg (75.0-100.0) 143.7 mmHg (75.0-100.0) H Arterial Blood HCO3 26.4 mmol/L (22.0-26.0) H 19.5 mmol/L (22.0-26.0) L Arterial Blood Oxygen Saturation 94.3 % (95-100) L 98.6 % (95-100) Arterial Blood Base Excess -0.6 (-2-2) -7.1 (-2-2) L Vishal Test Positive Positive Test 05/02/19 06:20 Stool Occult Blood Pending Microbiology Date/Time Source Procedure Growth Status 05/01/19 20:50 Nasal Nares - Final Complete 05/01/19 20:50 Nasal Nares - Final Complete Height (Feet): 5 Height (Inches): 4.00 Weight (Pounds): 192 Medications Current Medications Medications (Trade) Dose Ordered Sig/Gabriele Route PRN Reason Start Time Stop Time Status Last Admin Dose Admin Dextrose (Dextrose 50%) 25 ml Q30M PRN IV Hypoglycemia 05/02/19 03:45 06/01/19 03:44 Dextrose (Dextrose 50%) 50 ml Q30M PRN IV Hypoglycemia 05/02/19 03:45 06/01/19 03:44 Heparin Sodium (Porcine) (Heparin 5000 units/ml) 5,000 units EVERY 12 HOURS SUBQ 05/02/19 09:00 06/16/19 08:59 Hydralazine HCl (Apresoline) 10 mg Q6H PRN IV For High Blood Pressure 05/02/19 05:30 06/01/19 05:29 05/02/19 05:43 Pantoprazole (Protonix) 40 mg DAILY IVP 05/02/19 09:00 06/01/19 08:59 Piperacillin Sod/ Tazobactam Sod 3.375 gm/Dextrose 55 ml @ 110 mls/hr Q12H IVPB 05/02/19 12:00 05/09/19 11:59 Vancomycin HCl (Vanco rx to dose) 1 ea DAILY PRN MISC Per rx protocol 05/02/19 09:00 06/01/19 03:14 Assessment/Plan: 57 year-old with history of ESRD on HD MWF through right upper extremity graft, obesity, schizophrenia, bipolar disorder, diabetes, hypertension, hyperlipidemia , chronic anemia who presented to the hospital with fever and cough #Acute hypoxic and hypercarbic respiratory failure, improving on BiPAP, ABG PRN , ICU care #Suspected gram negative pneumonia (HCAP) #Bilateral infiltrates on CXR, pneumonia vs volume overload -AB per ID vancomycin and Zosyn -HD per Renal #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 -on IV antibiotics per ID -wound care consulted #ESRD - renal following #Acute metabolic encephalopathy -supportive care -fall and aspiration precautions #Schizophrenia and bipolar -psychiatric following #Hypertensive urgency -Hydralazine, Nifedipine #DM type 2 -ISS #Epilepsy -Continue Keppra #Hypothyroidism -continue levothyroxine CXR: Interstitial infiltrates Critical Care - Objective Last 24 Hour Vital Signs Date Time Temp Pulse Resp B/P (MAP) Pulse Ox O2 Delivery O2 Flow Rate FiO2 05/02/19 13:00 66 16 172/63 (99) 99 05/02/19 12:32 63 15 100 65 05/02/19 12:00 15.0 100 05/02/19 12:00 66 05/02/19 12:00 Bi-pap 15.0 05/02/19 12:00 98.0 64 15 155/59 (91) 99 05/02/19 11:00 60 15 121/59 (79) 100 05/02/19 10:00 64 17 153/65 (94) 100 05/02/19 10:00 121/59 05/02/19 09:00 64 16 173/89 (117) 100 05/02/19 08:53 65 14 99 65 05/02/19 08:00 15.0 100 05/02/19 08:00 67 05/02/19 08:00 Bi-pap 15.0 05/02/19 08:00 97.6 64 16 156/59 (91) 100 05/02/19 07:00 65 16 136/55 (82) 96 05/02/19 06:47 59 14 99 70 05/02/19 06:30 61 13 150/50 (83) 98 05/02/19 06:00 64 14 139/81 (100) 98 05/02/19 05:48 63 12 188/68 (108) 96 05/02/19 05:43 198/79 05/02/19 05:07 69 13 196/79 (118) 97 05/02/19 05:00 66 11 188/79 (115) 98 05/02/19 04:51 65 14 99 70 05/02/19 04:42 66 13 186/74 (111) 100 05/02/19 04:30 66 13 182/86 (118) 100 05/02/19 04:15 67 12 177/77 (110) 100 05/02/19 04:00 Bi-pap 05/02/19 04:00 15.0 100 05/02/19 04:00 97.7 67 12 161/77 (105) 100 05/02/19 03:45 67 12 169/72 (104) 100 05/02/19 03:42 68 16 10 Bi-Pap 100 05/02/19 03:30 68 13 164/78 (106) 100 05/02/19 03:15 70 13 100 05/02/19 03:15 68 16 100 100 05/02/19 03:08 70 14 154/69 (97) 100 05/02/19 03:02 Non-Rebreather 15.0 05/02/19 03:00 92.4 70 14 100 05/02/19 01:34 88 05/02/19 01:15 98.7 82 20 158/88 95 Nasal Cannula 2.0 05/02/19 01:15 98.7 82 20 158/88 95 Nasal Cannula 2.0 05/02/19 00:00 98.5 85 16 155/89 95 Nasal Cannula 2.0 05/01/19 23:15 81 16 149/91 90 Room Air 2.0 05/01/19 22:45 98.5 85 16 157/77 98 Room Air 05/01/19 22:45 88 16 Room Air 05/01/19 20:40 98.4 88 16 160/80 98 Room Air 05/01/19 20:35 98.8 82 16 160/80 (106) 98 Room Air Micro: Microbiology Date/Time Source Procedure Growth Status 05/01/19 20:50 Nasal Nares - Final Complete 05/01/19 20:50 Nasal Nares - Final Complete Critical Care - Subjective ROS Limited/Unobtainable: No FI02: 65 Vent Support Mode: BiLevel Sputum Amount: None I&O: Intake and Output 05/01/19 05/02/19 19:00 07:00 Output Total 80 ml Balance -80 ml Output Urine Total 80 ml # Bowel Movements 1 Alejo Hernandez MD May 02, 2019 14:56
--- NOTE | 2019-05-02 15:21 | NUR ---
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 TO ER CC SNEEZING COUGH X 2 DAYS SI: FLUID OVERLOAD,DM, CELLULITIS T. 98.8 HR 82 RR 16 B/P 160/80 PH 7.31 PCO2 52.0 PO2 77.7 HCO3 26.4 O2 SAT 94.3 CXR= SUSPECTED CHF IS: ZOSYN IV BENADRYL IV HALDOL IV RISPERDAL PO ADMITTED TO ICU @ 0115 ICU STATUS DCP RETURN TO [facility]
[2019-05-02] MEDS ORDERED: Vancomycin 500mg/D5W 110ml IVPB ONE ×2 (16:00)
--- NOTE | 2019-05-02 16:38 | NUR ---
*-* INSURANCE *-* ALL CLINICALS AND REVIEWS HAVE BEEN FAXED TO: [employer] Ref# [id number] # [phone] fax#[phone]
--- NOTE | 2019-05-02 16:57 | NUR ---
RECREATION CLERK NOTE Pt has admitted to ICU on 05/01/2019. SW attempted to meet w/ pt for initial assessment. Pt was awake, made eye contact w/ CHIKIS but did not respond to questions that SW asked. Emergency contacts listed as Mir Zuluaga (unknown relationship) w/ [facility] and Cindy Peguero [phone] (aunt). SW attempted to call Cindy Peguero [phone] but it went straight to . SW left a for call back. CHIKIS spoke w/ DJ from [facility] that pt's aunt has been actively involved and communicating w/ them in regards to pt's care and tx. Signed: 05/02/19 at 1700 by MAURA DIOP <Co-Signature Required>
--- NOTE | 2019-05-02 17:00 | NUR ---
NURSE NOTES: IV reinsertion done to LT upper arm,site wrapped in kerlix sary,soft restraints in placed. When pt woke up,he was screaming and yelling again,DR Beckett saw the situation,ordered Haldol 5 mg IM.
[2019-05-02] MEDS: Haloperidol 5mg/ml Inj IM PRN (17:23)
--- NOTE | 2019-05-02 18:30 | NUR ---
NURSE NOTES: Pt slept for a little bit and woke up again,very confused,restless,combative and pulled out again the IV to LT upper arm.Pt cleaned from the blood and bed linens changed.will endorse to police shift commander.
--- NOTE | 2019-05-02 19:30 | NUR ---
HAND-OFF: Report given to Grady Pascual RN.
--- NOTE | 2019-05-02 19:30 | NUR ---
NURSE NOTES: Report received from CHEPE Salazar. Observed pt lying in the bed, confused. SR on telemetry monitor. On bipap 12/ at 70%, sat at 100%. F/C intact and draining to gravity. multiple scars on gilberto upper ext noted. No IV access per pt dc 2times dayshift, will put new one. Gilberto soft wrist restr noted, no distress. AV shunt on R UA, bruit and thrill noted. Bed in the lowest position. Call light within reach. Side rails up x3. Will continue to monitor.
[2019-05-02] MEDS ORDERED: MELATONIN10 M1 ORAL (20:15)
[2019-05-02] MEDS ORDERED: LACTULOSE10 GM/153 PO (20:15)
[2019-05-02] MEDS ORDERED: SERTRALINE HCL25 MG ORAL (20:22)
[2019-05-02] MEDS ORDERED: ACETAMINOPHEN500 M3 ORAL (20:22)
[2019-05-02] MEDS ORDERED: ACETAMINOPHEN325 M1 ORAL (20:22)
[2019-05-02] MEDS ORDERED: NORCO 5-325 TA1 EAC1 ORAL (20:22)
[2019-05-02] MEDS ORDERED: HYDRALAZINE HCL25 M1 ORAL (20:22)
[2019-05-02] MEDS: levETIRAcetam 500mg/NS100ml 100 ML IVPB SCH (21:21)
[2019-05-02] MEDS: Atorvastatin 20mg tab ORAL SCH (21:22)
--- NOTE | 2019-05-02 21:45 | Infectious Diseases Prog Note ---
Assessment/Plan Assessment/Plan Full consult dictated: A) 1) pna, chf, sepsis, cellulitis, ? right foot wound infection with cellulitis 2) sob, bipap 3) pmh noted 4) allergies - nkda P) 1) zosyn, doxycycline, vancomycin 2) check sc, labs, x-rays 3) thank you Subjective Allergies: Coded Allergies: No Known Allergies (Verified , 08/23/06) Objective Vital Signs Last 24 Hour Vital Signs Date Time Temp Pulse Resp B/P (MAP) Pulse Ox O2 Delivery O2 Flow Rate FiO2 05/02/19 19:08 76 15 100 55 05/02/19 18:00 76 15 147/59 (88) 100 05/02/19 17:21 76 172/63 05/02/19 17:00 78 20 95/69 (78) 100 05/02/19 16:58 76 16 100 55 05/02/19 16:10 Bi-pap 15.0 05/02/19 16:00 15.0 100 05/02/19 16:00 80 05/02/19 16:00 98.1 79 19 101/82 (88) 97 05/02/19 15:36 172/63 05/02/19 15:00 76 19 155/72 (99) 95 05/02/19 14:46 71 16 100 55 05/02/19 14:00 68 16 182/61 (101) 100 05/02/19 14:00 172/63 05/02/19 13:00 66 16 172/63 (99) 99 05/02/19 12:32 63 15 100 65 05/02/19 12:00 15.0 100 05/02/19 12:00 66 05/02/19 12:00 Bi-pap 15.0 05/02/19 12:00 98.0 64 15 155/59 (91) 99 05/02/19 11:00 60 15 121/59 (79) 100 05/02/19 10:00 64 17 153/65 (94) 100 05/02/19 10:00 121/59 05/02/19 09:00 64 16 173/89 (117) 100 05/02/19 08:53 65 14 99 65 05/02/19 08:00 15.0 100 05/02/19 08:00 67 05/02/19 08:00 Bi-pap 15.0 05/02/19 08:00 97.6 64 16 156/59 (91) 100 05/02/19 07:00 65 16 136/55 (82) 96 05/02/19 06:47 59 14 99 70 05/02/19 06:30 61 13 150/50 (83) 98 05/02/19 06:00 64 14 139/81 (100) 98 05/02/19 05:48 63 12 188/68 (108) 96 05/02/19 05:43 198/79 05/02/19 05:07 69 13 196/79 (118) 97 05/02/19 05:00 66 11 188/79 (115) 98 05/02/19 04:51 65 14 99 70 05/02/19 04:42 66 13 186/74 (111) 100 05/02/19 04:30 66 13 182/86 (118) 100 05/02/19 04:15 67 12 177/77 (110) 100 05/02/19 04:00 Bi-pap 05/02/19 04:00 15.0 100 05/02/19 04:00 97.7 67 12 161/77 (105) 100 05/02/19 03:45 67 12 169/72 (104) 100 05/02/19 03:42 68 16 10 Bi-Pap 100 05/02/19 03:30 68 13 164/78 (106) 100 05/02/19 03:15 70 13 100 05/02/19 03:15 68 16 100 100 05/02/19 03:08 70 14 154/69 (97) 100 05/02/19 03:02 Non-Rebreather 15.0 05/02/19 03:00 92.4 70 14 100 05/02/19 01:34 88 05/02/19 01:15 98.7 82 20 158/88 95 Nasal Cannula 2.0 05/02/19 01:15 98.7 82 20 158/88 95 Nasal Cannula 2.0 05/02/19 00:00 98.5 85 16 155/89 95 Nasal Cannula 2.0 05/01/19 23:15 81 16 149/91 90 Room Air 2.0 05/01/19 22:45 98.5 85 16 157/77 98 Room Air 05/01/19 22:45 88 16 Room Air Height (Feet): 5 Height (Inches): 4.00 Weight (Pounds): 185 Microbiology Date/Time Source Procedure Growth Status 05/01/19 20:50 Nasal Nares - Final Complete 05/01/19 20:50 Nasal Nares - Final Complete Laboratory Tests Test 05/02/19 02:03 05/02/19 04:35 05/02/19 05:48 05/02/19 05:58 Arterial Blood pH 7.319 (7.350-7.450) 7.272 (7.350-7.450) Arterial Blood Partial Pressure CO2 52.6 mmHg (35.0-45.0) H 43.3 mmHg (35.0-45.0) Arterial Blood Partial Pressure O2 77.7 mmHg (75.0-100.0) 143.7 mmHg (75.0-100.0) H Arterial Blood HCO3 26.4 mmol/L (22.0-26.0) H 19.5 mmol/L (22.0-26.0) L Arterial Blood Oxygen Saturation 94.3 % (95-100) L 98.6 % (95-100) Arterial Blood Base Excess -0.6 (-2-2) -7.1 (-2-2) L Vishal Test Positive Positive White Blood Count 4.9 K/UL (4.8-10.8) Red Blood Count 4.75 M/UL (4.20-5.40) Hemoglobin 14.9 G/DL (12.0-16.0) Hematocrit 46.6 % (37.0-47.0) Mean Corpuscular Volume 98 FL (80-99) Mean Corpuscular Hemoglobin 31.4 PG (27.0-31.0) H Mean Corpuscular Hemoglobin Concent 32.0 G/DL (32.0-36.0) Red Cell Distribution Width 16.9 % (11.6-14.8) H Platelet Count 123 K/UL (150-450) L Mean Platelet Volume 6.3 FL (6.5-10.1) L Neutrophils (%) (Auto) 78.1 % (45.0-75.0) H Lymphocytes (%) (Auto) 12.4 % (20.0-45.0) L Monocytes (%) (Auto) 7.0 % (1.0-10.0) Eosinophils (%) (Auto) 2.2 % (0.0-3.0) Basophils (%) (Auto) 0.3 % (0.0-2.0) Sodium Level 136 MMOL/L (136-145) Potassium Level 5.1 MMOL/L (3.5-5.1) Chloride Level 99 MMOL/L (98-107) Carbon Dioxide Level 24 MMOL/L (21-32) Anion Gap 13 mmol/L (5-15) Blood Urea Nitrogen 37 mg/dL (7-18) H Creatinine 5.7 MG/DL (0.55-1.30) H Estimat Glomerular Filtration Rate 7.6 mL/min (>60) Glucose Level 75 MG/DL (74-106) Lactic Acid Level 0.90 mmol/L (0.4-2.0) Calcium Level 9.2 MG/DL (8.5-10.1) Total Bilirubin 0.7 MG/DL (0.2-1.0) Aspartate Amino Transf (AST/SGOT) 22 U/L (15-37) Alanine Aminotransferase (ALT/SGPT) 18 U/L (12-78) Alkaline Phosphatase 150 U/L (46-116) H Total Protein 6.7 G/DL (6.4-8.2) Albumin 3.0 G/DL (3.4-5.0) L Globulin 3.7 g/dL Albumin/Globulin Ratio 0.8 (1.0-2.7) L Hemoglobin A1c 4.5 % (4.3-6.0) C-Reactive Protein, Quantitative 0.7 mg/dL (0.00-0.90) Pro-B-Type Natriuretic Peptide > 49825 pg/mL (0-125) H Triglycerides Level 68 MG/DL (30-150) Cholesterol Level 94 MG/DL (< 200) LDL Cholesterol 43 mg/dL (<100) HDL Cholesterol 37 MG/DL (40-60) L Cholesterol/HDL Ratio 2.5 (3.3-4.4) L Thyroid Stimulating Hormone (TSH) 6.229 uiU/mL (0.358-3.740) Test 05/02/19 06:20 05/02/19 12:38 05/02/19 14:45 Stool Occult Blood Negative (NEGATIVE) Arterial Blood pH 7.385 (7.350-7.450) Arterial Blood Partial Pressure CO2 46.2 mmHg (35.0-45.0) H Arterial Blood Partial Pressure O2 138.1 mmHg (75.0-100.0) H Arterial Blood HCO3 27.0 mmol/L (22.0-26.0) H Arterial Blood Oxygen Saturation 98.6 % (95-100) Arterial Blood Base Excess 1.4 (-2-2) Vishal Test Positive Hepatitis B Surface Antigen Pending Current Medications Medications (Trade) Dose Ordered Sig/Gabriele Route PRN Reason Start Time Stop Time Status Last Admin Dose Admin Aspirin (Ecotrin) 81 mg DAILY ORAL 05/02/19 10:00 06/16/19 09:59 Atorvastatin Calcium (Lipitor) 20 mg BEDTIME ORAL 05/02/19 21:00 06/01/19 20:59 Dextrose (Dextrose 50%) 25 ml Q30M PRN IV Hypoglycemia 05/02/19 03:45 06/01/19 03:44 Dextrose (Dextrose 50%) 50 ml Q30M PRN IV Hypoglycemia 05/02/19 03:45 06/01/19 03:44 Haloperidol Lactate (Haldol) 5 mg Q6H PRN IM Agitation 05/02/19 17:00 06/16/19 16:59 05/02/19 17:23 Heparin Sodium (Porcine) (Heparin 5000 units/ml) 5,000 units EVERY 12 HOURS SUBQ 05/02/19 09:00 06/16/19 08:59 Hydralazine HCl (Apresoline) 10 mg Q6H PRN IV For High Blood Pressure 05/02/19 05:30 06/01/19 05:29 05/02/19 15:36 Hydralazine HCl (Apresoline) 50 mg Q8HR ORAL 05/02/19 10:00 06/01/19 09:59 Levetiracetam 100 ml @ 400 mls/hr Q12HR IVPB 05/02/19 21:00 06/01/19 20:59 Levothyroxine Sodium (Synthroid) 100 mcg DAILY@0630 ORAL 05/03/19 06:30 06/02/19 06:29 Nifedipine (Procardia XL) 60 mg BID ORAL 05/02/19 18:00 06/01/19 17:59 Pantoprazole (Protonix) 40 mg DAILY IVP 05/02/19 09:00 06/01/19 08:59 05/02/19 09:24 Piperacillin Sod/ Tazobactam Sod 2.25 gm/Dextrose 55 ml @ 110 mls/hr Q8HR IV 05/02/19 22:00 05/09/19 21:59 Risperidone (RisperDAL) 4 mg BEDTIME ORAL 05/02/19 21:00 06/16/19 20:59 Vancomycin HCl (Vanco rx to dose) 1 ea DAILY PRN MISC Per rx protocol 05/02/19 09:00 06/01/19 03:14 Nehal Nolasco MD May 02, 2019 21:45
--- NOTE | 2019-05-02 22:00 | NUR ---
NURSE NOTES: Pt agitated, taking off bipap continuously, trying to get out of bed. No acute distress noted at this time. Will continue to monitor.
[2019-05-02] MEDS: Zosyn 2.25 gm in D5W 55ml IV SCH (22:40)
--- NOTE | 2019-05-02 23:15 | Consultation ---
DATE OF CONSULTATION: 05/02/2019 INFECTIOUS DISEASE CONSULTATION CONSULTING PHYSICIAN: Nehal Nolasco M.D. ATTENDING PHYSICIAN: Leonardo Rudolph M.D. REFERRING PHYSICIAN: Normna Hawkins M.D. REASON FOR CONSULTATION: Pneumonia, sepsis, shortness of breath, bilateral leg cellulitis, infected right foot wound with cellulitis. CHIEF COMPLAINT: The patient's chief complaint coming to the hospital is shortness of breath, fluid overload, cellulitis. HISTORY OF PRESENT ILLNESS: This is a 58-year-old female, who presents to [facility] with shortness of breath and congestion. The patient is currently in the ICU on BiPAP. The patient initially was hypothermic with temperature 92.4. She did have SIRS criteria including hypothermia and respiratory insufficiency. Chest x-ray shows what looks like fluid overload, however, she also has interstitial densities which could be pneumonia. She is high risk for pneumonia with pneumonia in the past and sepsis in the past. Infectious Disease consultation is requested for antibiotic management in this patient. The patient is on vancomycin and Zosyn and I am going to add doxycycline. She has a drug interaction with azithromycin. We will treat for aspiration healthcare-acquired pneumonia such as gram-negative, MRSA pneumonia versus community-acquired pneumonia versus atypical pneumonia, or Streptococcus pneumonia. Clinically, she also has bilateral leg redness and cellulitis. She has a wound dehiscence to the right foot. She has history of partial amputation of right foot and also cellulitis. Surgery is following. The patient will continue on vancomycin, Zosyn, and doxycycline for now. MAR was noted. Orders were noted. Notes and records were reviewed. Case discussed with RN. The patient is in ICU. She is a dialysis patient, but she does have a Hernandez also. The patient is sedated and cannot give any further history. REVIEW OF SYSTEMS: CONSTITUTIONAL: The patient is sedated and cannot give any history. She has generalized fatigue, weakness, sedated, and poorly responsive. Currently, she did not have fevers. She did have hypothermia earlier. Again, hypothermia noted earlier. PULMONARY: She is short of breath and congested on BiPAP. CARDIAC: She has no pressors. GASTROINTESTINAL: No nausea, vomiting, or diarrhea. GENITOURINARY: She has a Hernandez. She is on hemodialysis. SKIN: She has cellulitis and wounds of the right foot. No other rash noted. NEUROLOGIC: She has generalized weakness, poorly responsive. No seizure activity. Review of systems is otherwise limited in this patient. PAST MEDICAL HISTORY: The patient has a medical history of fluid overload. Also past medical history of end-stage renal disease on hemodialysis. She has also past medical history of schizophrenia, obesity, right upper extremity graft, bipolar disease, diabetes, hypertension, hyperlipidemia, chronic anemia, encephalopathy, hypertensive urgency, epilepsy, and hypothyroidism. ALLERGIES: The patient has no known drug allergies. No antibiotic allergies. SOCIAL HISTORY: Negative for smoking, alcohol, or drug abuse. FAMILY HISTORY: Noncontributory. Negative for tuberculosis or cancer. MEDICATIONS: Upon reviewing the MAR, she is on following medications: she is on levothyroxine and Zosyn. She is on atorvastatin, risperidone, nifedipine, haloperidol, Zosyn, vancomycin, doxycycline, aspirin, hydralazine, heparin, pantoprazole, and IV fluids. Outside medications noted and reconciliated. Other medications noted. PHYSICAL EXAMINATION: VITAL SIGNS: Current temperature is 98.1, pulse rate 76, respiratory rate 15, saturating 100% FiO2 55%, and blood pressure 147/59. Temperature was as low as 92.4, too short of breath on BiPAP. Her respiratory rate has been as high as 20, however, she does have shortness of breath on BiPAP. GENERAL: Lethargic, weak, sedated. HEAD AND NECK: Oral exam, no thrush. Eye exam, no icterus. Normocephalic. Neck is supple. She is on BiPAP. HEART: Regular. No gallop or murmur. LUNGS: Bilateral rhonchi, rales, and crackles ABDOMEN: Soft. Positive bowel sounds. SKIN: No rash. MUSCULOSKELETAL: No effusion. Legs, she has bilateral leg redness and warmth. PERIPHERAL VASCULAR: She has right foot dehiscence at partial amputation site and cellulitis to right foot, redness and warmth, and bilateral leg cellulitis. GENITOURINARY: She has a Hernandez. Urine is slightly cloudy. LINE SITES: Without phlebitis. NEUROLOGIC: Poorly responsive and sedated. LABORATORY AND DIAGNOSTIC DATA: White count 4.9 and hemoglobin 14.9. Creatinine is 5.7. LFTs were noted. IMAGING STUDIES: Chest x-ray with fluid overload versus infiltrates and densities. This was noted and reviewed. MICROBIOLOGY: Cultures are pending. UA has been ordered also. ASSESSMENT AND PLAN: 1. The patient has hypothermia, sepsis, SIRS criteria, elevated respiratory rate and shortness of breath. Most likely she is high risk for aspiration and healthcare-acquired pneumonia versus congestive heart failure. She is at risk for gram-negative, MRSA pneumonia, atypical pneumonia, and Streptococcus pneumonia. Continue antibiotics of Zosyn and vancomycin for MRSA and gram-negative coverage and doxycycline for atypical coverage. We cannot use azithromycin because of drug interactions. Continue Zosyn, doxycycline, and vancomycin for pneumonia including aspiration healthcare acquired pneumonia, community-acquired pneumonia, and sepsis. The patient has developed bilateral leg cellulitis with redness and warmth. The patient has right foot wound dehiscence, possible infected wound with cellulitis. Surgery is following. Rule out osteo. We will get x-ray of the right foot. Continue vancomycin, Zosyn, and doxycycline. Check cultures, sputum culture, labs, UA, C and S, and chest x-ray. Continue wound care per protocol and Surgery. 2. End-stage renal disease, on hemodialysis. 3. Right TMA with some wound dehiscence. 4. Wound care protocol. 5. ICU care. 6. Hernandez. 7. End-stage renal disease, on hemodialysis treatment per Renal and Medicine. 8. Right upper extremity graft. 9. Obesity. 10. Schizophrenia and bipolar disease. 11. Diabetes. 12. Hypertension. 13. Hyperlipidemia. 14. Anemia. 15. Blood sugar and blood pressure treatment for diabetes and hypertension per primary care team. 16. Hypothyroidism. 17. Thyroid supplementation. 18. Encephalopathy. 19. Epilepsy. 20. Past medical history noted 21. No known drug allergies. 22. Social history is negative. 23. Family history is noncontributory. 24. MAR is noted. 25. Case was discussed with RN. Nehal Nolasco M.D. DR: PATTI JOB#: [id number] CC:
--- NOTE | 2019-05-02 23:54 | NUR ---
NURSE NOTES: Pt mildly agitated. Gilberto wrists checked, no distress noted. VS stable. SR on awake overnight monitor. Tolerating well with current bipap, sat at 98%. Will continue to monitor.
[2019-05-03] VITALS (24 sets, daily range): BP systolic 69–164; BP diastolic 21–69
[2019-05-03 01:17] LABS: APPEARANCE,URINE CLEAR; BILIRUBIN, URINE NEGATIVE (NEGATIVE); COLOR,URINE PALE YELLOW; GLUCOSE, URINE (UA) 2+ (NEGATIVE); KETONES,URINE 1+ (NEGATIVE); LEUKOCYTE ESTERASE ,URINE 1+ (NEGATIVE); NITRITE,URINE NEGATIVE (NEGATIVE); PH,URINE 8 (4.5-8.0); PROTEIN,URINE 4+ (NEGATIVE); UROBILINOGEN,URINE NORMAL MG/DL (0.0-1.0)
--- NOTE | 2019-05-03 02:22 | NUR ---
NURSE NOTES: pt appears calm at this time but occasionally yelling and tried to take out bipap. No other acute distress noted at this time. 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 No sob noted, sat at 98%. Will continue to monitor.
--- NOTE | 2019-05-03 03:30 | Consultation ---
DATE OF CONSULTATION: 05/02/2019 CONSULTING PHYSICIAN: Blanka Beckett M.D. HISTORY OF PRESENT ILLNESS: The patient is a 58-year-old female who is well known to this physician from previous encounter and treating her in a residential. The patient is presenting with anxiety, agitation, and responding to internal stimuli. The patient was in ICU, pulled out her IV access, blood is all over. The patient is confused and is unable to provide any meaningful history. Easily agitated. She was given 2 mg of risperidone and has not been alleviated her symptoms. PAST PSYCHIATRIC HISTORY: Schizoaffective disorder, several psychiatric hospitalizations, has been treated with Seroquel in the past; however, she recently is not responding to it. PAST MEDICAL HISTORY: Diabetes mellitus, end-stage renal failure, obesity, hypertension, and hyperlipidemia. ALLERGIES: No known drug allergies. SUBSTANCE ABUSE HISTORY: No known history of illicit drug use or alcohol. MENTAL STATUS EXAMINATION: The patient is confused, disoriented, has waxing and waning consciousness. Mood is agitated. Affect is flat. Thought process, there is a paucity of thought content. Thought content, no suicidal or homicidal ideation. ASSESSMENT: [place] I Schizoaffective disorder. [place] II Deferred. [place] III As above. [place] IV Low. [place] V 20. PLAN: 1. Risperidone. 2. Haldol p.r.n. 3. We will continue to follow and readjust the medications. Blanka Beckett M.D. DR: CARLITA JOB#: [id number] CC:
--- NOTE | 2019-05-03 04:18 | NUR ---
NURSE NOTES: Pt stable. On bipap, tolerating well. Bed bath given. Reposition done q 2hr. P200 mattress applied. No acute distress noted at this time.
[2019-05-03] MEDS: HydrALAZINE 50mg tab ORAL SCH ×3 (05:26→22:23)
[2019-05-03] MEDS: Zosyn 2.25 gm in D5W 55ml IV SCH ×3 (05:27→22:23)
--- NOTE | 2019-05-03 06:04 | NUR ---
NURSE NOTES: Pt sleeping and no acute distress noted at this time. FIO2 titrated to 40%, tolerating well, sat at 97%, no sob. VS stable. Pt refused to take po meds, risks and benefits explained and still refused. Will continue to monitor.
[2019-05-03 06:41] LABS: BASOPHILS % (AUTO) 0.4 % (0.0-2.0); EOSINOPHILS % (AUTO) 7.9 % (0.0-3.0); HEMATOCRIT 44.2 % (37.0-47.0); HEMOGLOBIN 13.9 G/DL (12.0-16.0); LYMPHOCYTES % (AUTO) 15.8 % (20.0-45.0); MEAN CORPUSCULAR VOLUME 98 FL (80-99); MONOCYTES % (AUTO) 6.7 % (1.0-10.0); NEUTROPHILS % (AUTO) 69.3 % (45.0-75.0); PLATELET COUNT 114 K/UL (150-450); RED BLOOD COUNT 4.49 M/UL (4.20-5.40); WHITE BLOOD COUNT 4.2 K/UL (4.8-10.8)
[2019-05-03 06:52] LABS: ANION GAP 11 mmol/L (5-15); BLOOD UREA NITROGEN 28 mg/dL (7-18); CALCIUM 9.5 MG/DL (8.5-10.1); CARBON DIOXIDE 29 MMOL/L (21-32); CHLORIDE 102 MMOL/L (98-107); CREATININE 5.1 MG/DL (0.55-1.30); POTASSIUM 4.5 MMOL/L (3.5-5.1); SODIUM 142 MMOL/L (136-145)
--- NOTE | 2019-05-03 07:21 | NUR ---
HAND-OFF: Report given to CHEPE Ogden. No acute distress noted at this time.
--- NOTE | 2019-05-03 07:30 | NUR ---
NURSE NOTES: Received report from CHEPE Orta. The patient is resting on the bed but being agitated and pulling out Bipap. The patient's bed in the lowest position, call light in reach, and fall, aspiration, and seizure precaution reinforced. IV site on L FA 22G intact and patent. The patient is on continuous Bipap with setting of 12/5 FiO2 40% per order. R upper arm AV shunt intact and patent. The patient's code status of DNR and DNI confirmed per Dr. Dotson. Per order, the patient is kept in NPO except ice chip and meds. Bilateral soft wrist restraints on per order and circulation and skin is intact. Will continue plan of care.
--- NOTE | 2019-05-03 08:30 | NUR ---
NURSE NOTES: After checking morning lab, notified Dr. Solis regarding low glucose level and other abnormal labs. Dr. Solis ordered D10W @30mL/hr. Will carry out the order as soon as possible. Will continue plan of care.
[2019-05-03 08:33] LABS: ALANINE AMINOTRANSFERASE 10 U/L (12-78); ALBUMIN 3.2 G/DL (3.4-5.0); ALKALINE PHOSPHATASE 146 U/L (46-116); ASPARTATE AMINO TRANSFERASE 11 U/L (15-37); BILIRUBIN,DIRECT 0.1 MG/DL (0.0-0.3); BILIRUBIN,TOTAL 0.7 MG/DL (0.2-1.0); PHOSPHORUS 6.4 MG/DL (2.5-4.9)
[2019-05-03] MEDS: Aspirin EC 81mg tab ORAL SCH (09:00)
[2019-05-03] MEDS: Heparin 5000 units/ml inj SUBQ SCH ×2 (09:00→21:19)
--- NOTE | 2019-05-03 09:30 | NUR ---
RADIOLOGY DEPT., RIGHT FOOT X-RAY COMPLETED.-[facility]
[2019-05-03] MEDS: Dextrose 10% 1,000 ML IV SCH (09:35)
[2019-05-03] MEDS: Pantoprazole Inj IVP SCH (09:36)
[2019-05-03] MEDS: levETIRAcetam 500mg/NS100ml 100 ML IVPB SCH ×2 (09:36→21:02)
--- NOTE | 2019-05-03 09:49 | Nephrology Progress Note ---
Assessment/Plan Problem List: (1) ESRD (end stage renal disease) on dialysis (2) CHF (congestive heart failure) (3) Fluid overload (4) Schizoaffective disorder, bipolar type Assessment Admitted for respiratory distress and CHF and volume overload Unknown date of her last dialysis Conditions: (1) ESRD (end stage renal disease) on dialysis (2) Altered level of consciousness / Encephalopathy metabolic (3) Schizoaffective disorder, bipolar type (4) h/o Hypothyroidism (5) Anemia in chronic renal disease Also: - Cellulitis both LE - End-stage renal disease, on hemodialysis. fistula right arm - HTN / Pulmonary HTN - Diabetes type 2. Others - Morbid obesity. - H/O Colon Cancer - H/O Hep C - H/O Depression and Bipolar disease - Psych disease uncoaporative --Bilateral leg numbness --diabetic neuropathy --L5-S1 disc protrusion Plan Will start on D10 since the blood sugar is low and patient on continuous BiPAP Was dialyzed on May 01 and 4 L was removed To recheck the chest x-ray Blood pressure and blood sugar under control Per orders Subjective ROS Limited/Unobtainable: No Constitutional: Reports: malaise Objective Objective Last 24 Hour Vital Signs Date Time Temp Pulse Resp B/P (MAP) Pulse Ox O2 Delivery O2 Flow Rate FiO2 05/03/19 09:37 74 147/55 05/03/19 08:07 72 16 100 35 05/03/19 07:00 69 14 133/50 (77) 97 05/03/19 06:00 72 14 135/54 (81) 98 05/03/19 05:26 129/44 05/03/19 05:19 74 14 98 40 05/03/19 05:00 74 14 129/44 (72) 99 05/03/19 04:00 68 05/03/19 04:00 Bi-pap 15.0 05/03/19 04:00 98.2 68 16 158/55 (89) 100 05/03/19 04:00 55 05/03/19 03:14 66 16 96 55 05/03/19 03:00 71 17 139/64 (89) 99 05/03/19 02:00 75 18 142/52 (82) 100 05/03/19 01:00 74 13 148/52 (84) 99 05/03/19 00:00 80 05/03/19 00:00 97.7 71 14 146/56 (86) 99 05/03/19 00:00 55 05/03/19 00:00 Bi-pap 15.0 05/02/19 23:24 72 16 100 55 05/02/19 23:00 73 13 142/58 (86) 100 05/02/19 22:00 73 14 117/94 (102) 100 05/02/19 21:28 72 16 100 55 05/02/19 21:22 140/59 05/02/19 21:00 73 15 140/59 (86) 100 05/02/19 20:00 97.8 77 18 149/57 (87) 100 05/02/19 20:00 80 05/02/19 20:00 Bi-pap 15.0 05/02/19 20:00 55 05/02/19 19:08 76 15 100 55 05/02/19 19:00 75 14 147/59 (88) 100 05/02/19 18:00 76 15 147/59 (88) 100 05/02/19 17:21 76 172/63 05/02/19 17:00 78 20 95/69 (78) 100 05/02/19 16:58 76 16 100 55 05/02/19 16:10 Bi-pap 15.0 05/02/19 16:00 15.0 100 05/02/19 16:00 80 05/02/19 16:00 98.1 79 19 101/82 (88) 97 05/02/19 15:36 172/63 05/02/19 15:00 76 19 155/72 (99) 95 05/02/19 14:46 71 16 100 55 05/02/19 14:00 68 16 182/61 (101) 100 05/02/19 14:00 172/63 05/02/19 13:00 66 16 172/63 (99) 99 05/02/19 12:32 63 15 100 65 05/02/19 12:00 15.0 100 05/02/19 12:00 66 05/02/19 12:00 Bi-pap 15.0 05/02/19 12:00 98.0 64 15 155/59 (91) 99 05/02/19 11:00 60 15 121/59 (79) 100 05/02/19 10:00 64 17 153/65 (94) 100 05/02/19 10:00 121/59 Intake and Output 05/02/19 05/03/19 19:00 07:00 Intake Total 4000 ml 155 ml Output Total 4050 ml 30 ml Balance -50 ml 125 ml Intake IV Total 155 ml Hemodialysis 4000 ml Output Urine Total 50 ml 30 ml Hemodialysis UF 4000 ml Laboratory Tests 05/02/19 12:38: Arterial Blood pH 7.385, Arterial Blood Partial Pressure CO2 46.2H, Arterial Blood Partial Pressure O2 138.1H, Arterial Blood HCO3 27.0H, Arterial Blood Oxygen Saturation 98.6, Arterial Blood Base Excess 1.4, Vishal Test Positive 05/02/19 14:45: Hepatitis B Surface Antigen [Pending] 05/03/19 01:10: Urine Color Pale yellow, Urine Appearance Clear, Urine pH 8, Urine Specific [place] 1.015, Urine Protein 4+H, Urine Glucose (UA) 2+H, Urine Ketones 1+H, Urine Blood 3+H, Urine Nitrite Negative, Urine Bilirubin Negative, Urine Urobilinogen Normal, Urine Leukocyte Esterase 1+H, Urine RBC 0-2, Urine WBC 2-4 , Urine Squamous Epithelial Cells Few, Urine Bacteria Few, Urine Legionella Antigen [Pending] 05/03/19 05:42: White Blood Count 4.2L, Red Blood Count 4.49, Hemoglobin 13.9, Hematocrit 44.2, Mean Corpuscular Volume 98, Mean Corpuscular Hemoglobin 31.0, Mean Corpuscular Hemoglobin Concent 31.5L, Red Cell Distribution Width 17.0H, Platelet Count 114L , Mean Platelet Volume 7.3, Neutrophils (%) (Auto) 69.3, Lymphocytes (%) (Auto) 15.8L, Monocytes (%) (Auto) 6.7, Eosinophils (%) (Auto) 7.9H, Basophils (%) ( Auto) 0.4, Sodium Level 142, Potassium Level 4.5, Chloride Level 102, Carbon Dioxide Level 29, Anion Gap 11, Blood Urea Nitrogen 28H, Creatinine 5.1H, Estimat Glomerular Filtration Rate 8.7, Glucose Level 64L, Calcium Level 9.5, Phosphorus Level 6.4H, Magnesium Level 2.7H, Total Bilirubin 0.7, Direct Bilirubin 0.1, Aspartate Amino Transf (AST/SGOT) 11L, Alanine Aminotransferase ( ALT/SGPT) 10L, Alkaline Phosphatase 146H, Total Protein 6.9, Albumin 3.2L Height (Feet): 5 Height (Inches): 4.00 Weight (Pounds): 186 General Appearance: mild distress EENT: other - On BiPAP continuously Cardiovascular: normal rate Respiratory/Chest: decreased breath sounds Abdomen: distended Eamon Solis MD May 03, 2019 09:48
[2019-05-03] MEDS ORDERED: Tubing IV Secondary IV ONE (09:58)
[2019-05-03] MEDS ORDERED: NS 275ml ONE (09:58)
--- NOTE | 2019-05-03 10:00 | NUR ---
NURSE NOTES: Acknowledged HD input order per Dr. Solis for 05/04/2019. Spoke with Jam @ [facility] for confirmation of HD schedule on 05/04/2019. The patient is stable without acute distress or shortness of breath. Will continue plan of care.
--- NOTE | 2019-05-03 10:04 | Diagnostic Imaging Report ---
EXAM: XR Right Foot, 2 Views CLINICAL HISTORY: INFECT TECHNIQUE: Frontal and lateral views of the right foot. COMPARISON: Right foot x-rays dated 11/11/17 FINDINGS: Bones/joints: Status post transmetatarsal amputation. No acute fracture or dislocation seen in the hindfoot or midfoot. Incidental note of small plantar calcaneal bony spur and small adjacent enthesophyte. Soft tissues: Unremarkable. No radiopaque foreign body. Vasculature: Scattered vascular calcifications throughout the foot and ankle. IMPRESSION: 1. No acute findings. 2. Status post transmetatarsal amputation. If there is clinical concern for osteomyelitis, MRI or nuclear medicine bone scan should be considered.
--- NOTE | 2019-05-03 11:00 | NUR ---
NURSE NOTES: The patient is stable without acute distress or shortness of breath. D10W @30mL/hr running and BS is 111. Will continue plan of care.
--- NOTE | 2019-05-03 12:00 | NUR ---
NURSE NOTES: Paged Dr. Rudolph for SBP of 88 the lowest. No call back yet. Will continue plan of care.
--- NOTE | 2019-05-03 13:00 | NUR ---
NURSE NOTES: Dr. Ornelas who is covering Dr. Rudolph assessed the patient. Informed Dr. Ornelas that the patient's SBP was [address] Ornelas, just monitor but no new order. Also informed Dr. Ornelas that the patient started to be on D10W @30mL/hr as the patient's glucose was low based on the morning lab and per Dr. Solis's order. Will continue plan of care.
--- NOTE | 2019-05-03 13:01 | Surgery Progress Note ---
Surgery Progress Note Subjective Additional Comments ill appearing hypotensive at times not tachycardic on bipap awake and responsive but less than usual Objective Last 24 Hour Vital Signs Date Time Temp Pulse Resp B/P (MAP) Pulse Ox O2 Delivery O2 Flow Rate FiO2 05/03/19 12:00 Bi-pap 15.0 05/03/19 12:00 40 05/03/19 12:00 98.5 55 18 97/44 (61) 95 05/03/19 11:00 56 18 105/42 (63) 95 05/03/19 10:00 70 20 164/54 (90) 97 05/03/19 09:37 74 147/55 05/03/19 09:05 67 14 97 35 05/03/19 09:00 68 18 147/55 (85) 97 05/03/19 08:07 72 16 100 35 05/03/19 08:00 40 05/03/19 08:00 63 05/03/19 08:00 Bi-pap 15.0 05/03/19 08:00 98.0 70 18 141/69 (93) 97 05/03/19 07:00 69 14 133/50 (77) 97 05/03/19 06:00 72 14 135/54 (81) 98 05/03/19 05:26 129/44 05/03/19 05:19 74 14 98 40 05/03/19 05:00 74 14 129/44 (72) 99 05/03/19 04:00 68 05/03/19 04:00 Bi-pap 15.0 05/03/19 04:00 98.2 68 16 158/55 (89) 100 05/03/19 04:00 55 05/03/19 03:14 66 16 96 55 05/03/19 03:00 71 17 139/64 (89) 99 05/03/19 02:00 75 18 142/52 (82) 100 05/03/19 01:00 74 13 148/52 (84) 99 05/03/19 00:00 80 05/03/19 00:00 97.7 71 14 146/56 (86) 99 05/03/19 00:00 55 05/03/19 00:00 Bi-pap 15.0 05/02/19 23:24 72 16 100 55 05/02/19 23:00 73 13 142/58 (86) 100 05/02/19 22:00 73 14 117/94 (102) 100 05/02/19 21:28 72 16 100 55 05/02/19 21:22 140/59 05/02/19 21:00 73 15 140/59 (86) 100 05/02/19 20:00 97.8 77 18 149/57 (87) 100 05/02/19 20:00 80 05/02/19 20:00 Bi-pap 15.0 05/02/19 20:00 55 05/02/19 19:08 76 15 100 55 05/02/19 19:00 75 14 147/59 (88) 100 05/02/19 18:00 76 15 147/59 (88) 100 05/02/19 17:21 76 172/63 05/02/19 17:00 78 20 95/69 (78) 100 05/02/19 16:58 76 16 100 55 05/02/19 16:10 Bi-pap 15.0 05/02/19 16:00 15.0 100 05/02/19 16:00 80 05/02/19 16:00 98.1 79 19 101/82 (88) 97 05/02/19 15:36 172/63 05/02/19 15:00 76 19 155/72 (99) 95 05/02/19 14:46 71 16 100 55 05/02/19 14:00 68 16 182/61 (101) 100 05/02/19 14:00 172/63 I&O Intake and Output 05/02/19 05/03/19 19:00 07:00 Intake Total 4000 ml 155 ml Output Total 4050 ml 30 ml Balance -50 ml 125 ml Intake IV Total 155 ml Hemodialysis 4000 ml Output Urine Total 50 ml 30 ml Hemodialysis UF 4000 ml Dressing: other Wound: other Drains: other Cardiovascular: RSR Respiratory: decreased breath sounds Abdomen: soft, present bowel sounds Extremities: no cyanosis, other Laboratory Tests Test 05/02/19 14:45 05/03/19 01:10 05/03/19 05:42 Hepatitis B Surface Antigen Pending Urine Color Pale yellow Urine Appearance Clear Urine pH 8 (4.5-8.0) Urine Specific [place] 1.015 (1.005-1.035) Urine Protein 4+ (NEGATIVE) H Urine Glucose (UA) 2+ (NEGATIVE) H Urine Ketones 1+ (NEGATIVE) H Urine Blood 3+ (NEGATIVE) H Urine Nitrite Negative (NEGATIVE) Urine Bilirubin Negative (NEGATIVE) Urine Urobilinogen Normal MG/DL (0.0-1.0) Urine Leukocyte Esterase 1+ (NEGATIVE) H Urine RBC 0-2 /HPF (0 - 2) Urine WBC 2-4 /HPF (0 - 2) Urine Squamous Epithelial Cells Few /LPF (NONE/OCC) Urine Bacteria Few /HPF (NONE) Urine Legionella Antigen Pending White Blood Count 4.2 K/UL (4.8-10.8) L Red Blood Count 4.49 M/UL (4.20-5.40) Hemoglobin 13.9 G/DL (12.0-16.0) Hematocrit 44.2 % (37.0-47.0) Mean Corpuscular Volume 98 FL (80-99) Mean Corpuscular Hemoglobin 31.0 PG (27.0-31.0) Mean Corpuscular Hemoglobin Concent 31.5 G/DL (32.0-36.0) L Red Cell Distribution Width 17.0 % (11.6-14.8) H Platelet Count 114 K/UL (150-450) L Mean Platelet Volume 7.3 FL (6.5-10.1) Neutrophils (%) (Auto) 69.3 % (45.0-75.0) Lymphocytes (%) (Auto) 15.8 % (20.0-45.0) L Monocytes (%) (Auto) 6.7 % (1.0-10.0) Eosinophils (%) (Auto) 7.9 % (0.0-3.0) H Basophils (%) (Auto) 0.4 % (0.0-2.0) Sodium Level 142 MMOL/L (136-145) Potassium Level 4.5 MMOL/L (3.5-5.1) Chloride Level 102 MMOL/L (98-107) Carbon Dioxide Level 29 MMOL/L (21-32) Anion Gap 11 mmol/L (5-15) Blood Urea Nitrogen 28 mg/dL (7-18) H Creatinine 5.1 MG/DL (0.55-1.30) H Estimat Glomerular Filtration Rate 8.7 mL/min (>60) Glucose Level 64 MG/DL (74-106) L Calcium Level 9.5 MG/DL (8.5-10.1) Phosphorus Level 6.4 MG/DL (2.5-4.9) H Magnesium Level 2.7 MG/DL (1.8-2.4) H Total Bilirubin 0.7 MG/DL (0.2-1.0) Direct Bilirubin 0.1 MG/DL (0.0-0.3) Aspartate Amino Transf (AST/SGOT) 11 U/L (15-37) L Alanine Aminotransferase (ALT/SGPT) 10 U/L (12-78) L Alkaline Phosphatase 146 U/L (46-116) H Total Protein 6.9 G/DL (6.4-8.2) Albumin 3.2 G/DL (3.4-5.0) L Plan Problems: (1) Fluid overload Assessment & Plan: Patient with fluid overload BNP elevated pending cardiology input Likely respiratory component from this as well explaining URI Diurese Trend labs Pulmonary vascular congestion suspected with prominent pulmonary vascularity and interstitial densities with cardiomegaly. Costophrenic angles are well- visualized. Bones may be slightly osteopenic. Aorta is calcified. IMPRESSION: Suspected CHF (2) Lower extremity cellulitis Assessment & Plan: Patient with right TMA prior wound postoperative care had been provided for significant period time as it was improving. Some wound dehiscence identified. Mild cellulitis around the wound site. Antibiotics per infectious disease We will monitor closely over the next 24 hours if further surgical dimension necessary Furthermore identified to have a sacral deep tissue injury upon admission area of erythema 3 cm x 3 cm with superficial epidermal skin loss no dermal opening will monitor closely turn every 2 hours local care with skin protectant and foam dressing Thank you will follow with recommendations (3) Foot ulcer due to secondary DM Assessment & Plan: s/p tma r Additional Comments ill appearing deteriorating dnr/dni may pass soon Vic Wise May 03, 2019 13:01
--- NOTE | 2019-05-03 13:50 | NUR ---
NURSE NOTES: Dr. Rm at the bedside assessed the patient. Per Dr. Rm, try to wean off Bipap and put on NC to keep SpO2>92%. Also, do ABG 30 minutes after weaning off Bipap. Will call RT for new order. Will continue plan of care.
--- NOTE | 2019-05-03 14:06 | Pulmonolgy Critical Care Note ---
Critical Care - Asmt/Plan Problems: (1) Fluid overload (2) HCAP (healthcare-associated pneumonia) (3) CHF (congestive heart failure) (4) Encephalopathy (5) ESRD (end stage renal disease) on dialysis (6) Non compliance with medical treatment (7) Obesity (BMI 30-39.9) (8) Seizure disorder (9) Lower extremity cellulitis (10) Foot ulcer due to secondary DM (11) Diabetes mellitus type 2 with neurological manifestations (12) Acute metabolic encephalopathy Assessment/Plan: Attempt to wean off BiPAP Titrate O2 Repeat ABG 30 min Abx per ID Monitor volumes, HD per renal with UF as able DVT Px: Hep SQ Monitor MS Wound care DNAR/DNI CCT 30 Critical Care - Objective Last 24 Hour Vital Signs Date Time Temp Pulse Resp B/P (MAP) Pulse Ox O2 Delivery O2 Flow Rate FiO2 05/03/19 13:00 61 18 100/43 (62) 97 05/03/19 12:59 100/43 05/03/19 12:00 Bi-pap 15.0 05/03/19 12:00 40 05/03/19 12:00 64 05/03/19 12:00 98.5 55 18 97/44 (61) 95 05/03/19 11:00 56 18 105/42 (63) 95 05/03/19 10:00 70 20 164/54 (90) 97 05/03/19 09:37 74 147/55 05/03/19 09:05 67 14 97 35 05/03/19 09:00 68 18 147/55 (85) 97 05/03/19 08:07 72 16 100 35 05/03/19 08:00 40 05/03/19 08:00 63 05/03/19 08:00 Bi-pap 15.0 05/03/19 08:00 98.0 70 18 141/69 (93) 97 05/03/19 07:00 69 14 133/50 (77) 97 05/03/19 06:00 72 14 135/54 (81) 98 05/03/19 05:26 129/44 05/03/19 05:19 74 14 98 40 05/03/19 05:00 74 14 129/44 (72) 99 05/03/19 04:00 68 05/03/19 04:00 Bi-pap 15.0 05/03/19 04:00 98.2 68 16 158/55 (89) 100 05/03/19 04:00 55 05/03/19 03:14 66 16 96 55 05/03/19 03:00 71 17 139/64 (89) 99 05/03/19 02:00 75 18 142/52 (82) 100 05/03/19 01:00 74 13 148/52 (84) 99 05/03/19 00:00 80 05/03/19 00:00 97.7 71 14 146/56 (86) 99 05/03/19 00:00 55 05/03/19 00:00 Bi-pap 15.0 05/02/19 23:24 72 16 100 55 05/02/19 23:00 73 13 142/58 (86) 100 05/02/19 22:00 73 14 117/94 (102) 100 05/02/19 21:28 72 16 100 55 05/02/19 21:22 140/59 05/02/19 21:00 73 15 140/59 (86) 100 05/02/19 20:00 97.8 77 18 149/57 (87) 100 05/02/19 20:00 80 05/02/19 20:00 Bi-pap 15.0 05/02/19 20:00 55 05/02/19 19:08 76 15 100 55 05/02/19 19:00 75 14 147/59 (88) 100 05/02/19 18:00 76 15 147/59 (88) 100 05/02/19 17:21 76 172/63 05/02/19 17:00 78 20 95/69 (78) 100 05/02/19 16:58 76 16 100 55 05/02/19 16:10 Bi-pap 15.0 05/02/19 16:00 15.0 100 05/02/19 16:00 80 05/02/19 16:00 98.1 79 19 101/82 (88) 97 05/02/19 15:36 172/63 05/02/19 15:00 76 19 155/72 (99) 95 05/02/19 14:46 71 16 100 55 Status: awake - on BiPAP Condition: improving HEENT: atraumatic, normocephalic Lungs: rhonchi Heart: HR/BP stable Abdomen: soft, non-tender, active bowel sounds Extremities: edema - 1-2+ L foot/TMA dressed Micro: Microbiology Date/Time Source Procedure Growth Status 05/01/19 21:00 Blood Blood Culture - Preliminary NO GROWTH AFTER 24 HOURS Resulted 05/01/19 20:45 Blood Blood Culture - Preliminary NO GROWTH AFTER 24 HOURS Resulted 05/01/19 20:50 Nasal Nares - Final Complete 05/01/19 20:50 Nasal Nares - Final Complete Blood Sugars: BS controlled Critical Care - Subjective ROS Limited/Unobtainable: Yes ICU Day: 2 Interval Events: BiPAP Condition: critical IV Access: central EKG Rhythm: Sinus Rhythm FI02: 40 Vent Support Mode: BiLevel Sputum Amount: None Secretions: None Fluids: SLIV Drips: N/A I&O: Intake and Output 05/02/19 05/03/19 19:00 07:00 Intake Total 4000 ml 155 ml Output Total 4050 ml 30 ml Balance -50 ml 125 ml Intake IV Total 155 ml Hemodialysis 4000 ml Output Urine Total 50 ml 30 ml Hemodialysis UF 4000 ml Subjective: Wants mask off CXR: PVC Labs: Laboratory Tests Test 05/02/19 14:45 05/03/19 01:10 05/03/19 05:42 Hepatitis B Surface Antigen Pending Urine Color Pale yellow Urine Appearance Clear Urine pH 8 (4.5-8.0) Urine Specific [place] 1.015 (1.005-1.035) Urine Protein 4+ (NEGATIVE) H Urine Glucose (UA) 2+ (NEGATIVE) H Urine Ketones 1+ (NEGATIVE) H Urine Blood 3+ (NEGATIVE) H Urine Nitrite Negative (NEGATIVE) Urine Bilirubin Negative (NEGATIVE) Urine Urobilinogen Normal MG/DL (0.0-1.0) Urine Leukocyte Esterase 1+ (NEGATIVE) H Urine RBC 0-2 /HPF (0 - 2) Urine WBC 2-4 /HPF (0 - 2) Urine Squamous Epithelial Cells Few /LPF (NONE/OCC) Urine Bacteria Few /HPF (NONE) Urine Legionella Antigen Pending White Blood Count 4.2 K/UL (4.8-10.8) L Red Blood Count 4.49 M/UL (4.20-5.40) Hemoglobin 13.9 G/DL (12.0-16.0) Hematocrit 44.2 % (37.0-47.0) Mean Corpuscular Volume 98 FL (80-99) Mean Corpuscular Hemoglobin 31.0 PG (27.0-31.0) Mean Corpuscular Hemoglobin Concent 31.5 G/DL (32.0-36.0) L Red Cell Distribution Width 17.0 % (11.6-14.8) H Platelet Count 114 K/UL (150-450) L Mean Platelet Volume 7.3 FL (6.5-10.1) Neutrophils (%) (Auto) 69.3 % (45.0-75.0) Lymphocytes (%) (Auto) 15.8 % (20.0-45.0) L Monocytes (%) (Auto) 6.7 % (1.0-10.0) Eosinophils (%) (Auto) 7.9 % (0.0-3.0) H Basophils (%) (Auto) 0.4 % (0.0-2.0) Sodium Level 142 MMOL/L (136-145) Potassium Level 4.5 MMOL/L (3.5-5.1) Chloride Level 102 MMOL/L (98-107) Carbon Dioxide Level 29 MMOL/L (21-32) Anion Gap 11 mmol/L (5-15) Blood Urea Nitrogen 28 mg/dL (7-18) H Creatinine 5.1 MG/DL (0.55-1.30) H Estimat Glomerular Filtration Rate 8.7 mL/min (>60) Glucose Level 64 MG/DL (74-106) L Calcium Level 9.5 MG/DL (8.5-10.1) Phosphorus Level 6.4 MG/DL (2.5-4.9) H Magnesium Level 2.7 MG/DL (1.8-2.4) H Total Bilirubin 0.7 MG/DL (0.2-1.0) Direct Bilirubin 0.1 MG/DL (0.0-0.3) Aspartate Amino Transf (AST/SGOT) 11 U/L (15-37) L Alanine Aminotransferase (ALT/SGPT) 10 U/L (12-78) L Alkaline Phosphatase 146 U/L (46-116) H Total Protein 6.9 G/DL (6.4-8.2) Albumin 3.2 G/DL (3.4-5.0) Dorian Hardy MD May 03, 2019 14:06
[2019-05-03] MEDS: DOPamine 400mg/250ml 250 ML IV SCH (14:30)
--- NOTE | 2019-05-03 14:30 | NUR ---
NURSE NOTES: Paged Dr. Ornelas for blood pressure of 69/21 and 69/53. Dr. Ornelas and Dr. Rm at the bedside. Notified to charge nurse. The patient received bolus of Albumin per order. Dr. Ornelas also ordered Midodrine 10mg 1tab PO Q8hr and Dopamine drip to keep SBP>85. The patient got stabilized after bolus of Albumin. Will continue plan of care.
--- NOTE | 2019-05-03 14:35 | NUR ---
NURSE NOTES: Per charge nurse, the patient does not need dopamine drip for now as the patient's blood pressure is 109/46 now. Will continue plan of care.
[2019-05-03] MEDS ORDERED: Midodrine 10mg tab ORAL SCH (15:30)
--- NOTE | 2019-05-03 16:00 | NUR ---
NURSE NOTES: The patient's blood pressure got stabilized with SBP>100. Will continue plan of care.
--- NOTE | 2019-05-03 17:00 | NUR ---
NURSE NOTES: The patient is stable without acute distress or shortness of breath. The patient is still on Bipap and D10W @30mL/hr per order. Will closely monitor the patient.
--- NOTE | 2019-05-03 18:00 | General Progress Note ---
Assessment/Plan Assessment/Plan: 57 year-old with history of ESRD on HD MWF through right upper extremity graft, obesity, schizophrenia, bipolar disorder, diabetes, hypertension, hyperlipidemia , chronic anemia who presented to the hospital with fever and cough #Acute hypoxic and hypercarbic respiratory failure #Suspected gram negative pneumonia (HCAP) #Bilateral infiltrates on CXR -continue ICU level of care. -DNR/DNI -continue BIPAP, attempt to wean off. -continue vancomycin and Zosyn, monitor drug levels -Pulmonology and ID consulted #Septic shock - improved #Hypotension BP as low as 50's on 05/02. 4L removed on 05/01. -d/c nifedipine -midodrine 10 mg TID added. -dopamine via peripheral to maintain SBP > 85 -s/p albumin 25g x1 #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 -on IB antibiotics -consult wound care #ESRD #Fluid overload -Nephrology consult with Dr. Solis -Monitor electrolytes -Phosphate binders #Acute metabolic encephalopathy -will provide supportive care -fall and aspiration precautions -treat underlying acute medical issues #Schizophrenia and bipolar -continue outpatient psychiatric regimen -Dr. Beckett from psychiatry to see #Hypertensive urgency -Continue hydralazine, Nifedipine #DM type 2 -ISS #Epilepsy -Continue Keppra #Hypothyroidism -continue levothyroxine .I spent 50 minutes on this patient's case, and 35 mins was dedicated to critical care. Extra 36 mins spent on chart review, including labs, medications , imaging, prior physician documentation. Critical Care Services performed include: Telemetry Review Hemodynamic measurement interpretation Laboratory data review and interpretation Radiology image review and interpretation Interpretation of ABG's Discussion of patient's care with ICU team, ICU Nursing staff and/or consulting services Subjective Date patient seen: May 03, 2019 ROS Limited/Unobtainable: Yes Allergies: Coded Allergies: No Known Allergies (Verified , 08/23/06) Subjective on bipap, in ICU, following simple commands. Objective Last 24 Hour Vital Signs Date Time Temp Pulse Resp B/P (MAP) Pulse Ox O2 Delivery O2 Flow Rate FiO2 05/03/19 17:32 73 125/49 05/03/19 17:17 70 15 96 55 05/03/19 17:00 68 14 127/54 (78) 99 05/03/19 16:00 Bi-pap 15.0 05/03/19 16:00 98.3 67 18 129/47 (74) 100 05/03/19 16:00 68 05/03/19 16:00 40 05/03/19 15:00 65 14 113/51 (71) 99 05/03/19 14:45 59 14 96 55 05/03/19 14:30 126/49 05/03/19 14:00 64 14 69/21 (37) 99 05/03/19 13:00 61 18 100/43 (62) 97 05/03/19 12:59 100/43 05/03/19 12:00 Bi-pap 15.0 05/03/19 12:00 40 05/03/19 12:00 64 05/03/19 12:00 98.5 55 18 97/44 (61) 95 05/03/19 11:00 61 14 96 40 05/03/19 11:00 56 18 105/42 (63) 95 05/03/19 10:00 70 20 164/54 (90) 97 05/03/19 09:37 74 147/55 05/03/19 09:05 67 14 97 35 05/03/19 09:00 68 18 147/55 (85) 97 05/03/19 08:07 72 16 100 35 05/03/19 08:00 40 05/03/19 08:00 63 05/03/19 08:00 Bi-pap 15.0 05/03/19 08:00 98.0 70 18 141/69 (93) 97 05/03/19 07:00 69 14 133/50 (77) 97 05/03/19 06:00 72 14 135/54 (81) 98 05/03/19 05:26 129/44 05/03/19 05:19 74 14 98 40 05/03/19 05:00 74 14 129/44 (72) 99 05/03/19 04:00 68 05/03/19 04:00 Bi-pap 15.0 05/03/19 04:00 98.2 68 16 158/55 (89) 100 05/03/19 04:00 55 05/03/19 03:14 66 16 96 55 05/03/19 03:00 71 17 139/64 (89) 99 05/03/19 02:00 75 18 142/52 (82) 100 05/03/19 01:00 74 13 148/52 (84) 99 05/03/19 00:00 80 05/03/19 00:00 97.7 71 14 146/56 (86) 99 05/03/19 00:00 55 05/03/19 00:00 Bi-pap 15.0 05/02/19 23:24 72 16 100 55 05/02/19 23:00 73 13 142/58 (86) 100 05/02/19 22:00 73 14 117/94 (102) 100 05/02/19 21:28 72 16 100 55 05/02/19 21:22 140/59 05/02/19 21:00 73 15 140/59 (86) 100 05/02/19 20:00 97.8 77 18 149/57 (87) 100 05/02/19 20:00 80 05/02/19 20:00 Bi-pap 15.0 05/02/19 20:00 55 05/02/19 19:08 76 15 100 55 05/02/19 19:00 75 14 147/59 (88) 100 05/02/19 18:00 76 15 147/59 (88) 100 Intake and Output 05/02/19 05/03/19 19:00 07:00 Intake Total 4000 ml 155 ml Output Total 4050 ml 30 ml Balance -50 ml 125 ml Intake IV Total 155 ml Hemodialysis 4000 ml Output Urine Total 50 ml 30 ml Hemodialysis UF 4000 ml Laboratory Tests 05/03/19 01:10: Urine Color Pale yellow, Urine Appearance Clear, Urine pH 8, Urine Specific [place] 1.015, Urine Protein 4+H, Urine Glucose (UA) 2+H, Urine Ketones 1+H, Urine Blood 3+H, Urine Nitrite Negative, Urine Bilirubin Negative, Urine Urobilinogen Normal, Urine Leukocyte Esterase 1+H, Urine RBC 0-2, Urine WBC 2-4 , Urine Squamous Epithelial Cells Few, Urine Bacteria Few, Urine Legionella Antigen [Pending] 05/03/19 05:42: White Blood Count 4.2L, Red Blood Count 4.49, Hemoglobin 13.9, Hematocrit 44.2, Mean Corpuscular Volume 98, Mean Corpuscular Hemoglobin 31.0, Mean Corpuscular Hemoglobin Concent 31.5L, Red Cell Distribution Width 17.0H, Platelet Count 114L , Mean Platelet Volume 7.3, Neutrophils (%) (Auto) 69.3, Lymphocytes (%) (Auto) 15.8L, Monocytes (%) (Auto) 6.7, Eosinophils (%) (Auto) 7.9H, Basophils (%) ( Auto) 0.4, Sodium Level 142, Potassium Level 4.5, Chloride Level 102, Carbon Dioxide Level 29, Anion Gap 11, Blood Urea Nitrogen 28H, Creatinine 5.1H, Estimat Glomerular Filtration Rate 8.7, Glucose Level 64L, Calcium Level 9.5, Phosphorus Level 6.4H, Magnesium Level 2.7H, Total Bilirubin 0.7, Direct Bilirubin 0.1, Aspartate Amino Transf (AST/SGOT) 11L, Alanine Aminotransferase ( ALT/SGPT) 10L, Alkaline Phosphatase 146H, Total Protein 6.9, Albumin 3.2L 05/03/19 14:29: Arterial Blood pH 7.398, Arterial Blood Partial Pressure CO2 41.6, Arterial Blood Partial Pressure O2 56.7L, Arterial Blood HCO3 25.1, Arterial Blood Oxygen Saturation 89.2*L, Arterial Blood Base Excess 0.2, Vishal Test Positive Height (Feet): 5 Height (Inches): 4.00 Weight (Pounds): 186 General Appearance: no apparent distress Neck: supple Cardiovascular: normal rate, regular rhythm Respiratory/Chest: lungs clear, normal breath sounds Abdomen: non tender, soft Neurologic: responsive Juan Carlos Ornelas M.D. May 03, 2019 18:00
--- NOTE | 2019-05-03 18:00 | NUR ---
NURSE NOTES: The patient is stable without acute distress or shortness of breath. The patient's blood pressure is 120s systolic. Will closely monitor the patient.
--- NOTE | 2019-05-03 19:30 | NUR ---
HAND-OFF: Report given to Davian Sidhu RN. The patient is resting on the bed without acute distress or shortness of breath. The patient's bed in the lowest position, call light in reach, and fall, aspiration, and seizure precaution reinforced. IV site intact and patent and D10W @30mL/hr running per order. R upper arm AV shunt intact. The patient is on Bipap with ordered setting. The patient is on bilateral soft wrist restraints on per order and skin and circulation intact. Kept in NPO per order. The patient is scheduled for HD on 05/04/[address] Solis's order, and called [facility] for confirmation of schedule and spoke with Ivone. Endorsed plan of care.
--- NOTE | 2019-05-03 19:35 | NUR ---
NURSE NOTES: Received patient and report from Francisca Neal RN. Patient is resting in bed, in no acute distress. Pt's alert, AOx2-3, confuse at times. Afebrile. SR on life insurance sales. VS stable. Noted patient is on Bipap 12/ with FiO2 40%. O2 sat 98%. NPO at this time. HD pt, will have HD in AM with VIP. Noted IV site on L FA 22G intact and patent. R upper arm AV shunt intact and patent. Patient is kept in NPO except ice chip and meds. Bilateral soft wrist restraints on per order and circulation and skin is intact. HOB kept elevated, bed in low and locked position. Call light within reach. Will continue plan of care.
[2019-05-03] MEDS: Atorvastatin 20mg tab ORAL SCH (21:03)
--- NOTE | 2019-05-03 22:00 | NUR ---
NURSE NOTES: Pt's resting in bed, in no acute distress. VS stable. She's currently using Venturi mask 10L at 40%, she well tolerated, O2 sat 100%. Will continue to monitor.
[2019-05-03] MEDS: Midodrine 10mg tab ORAL SCH (22:23)
[2019-05-04] VITALS (32 sets, daily range): BP systolic 150–204; BP diastolic 41–95
--- NOTE | 2019-05-04 | NUR ---
NURSE NOTES: Pt's resting in bed, asleep with eyes closed, tolerating venturi mask well. VS stable. Will continue to monitor. Addendum: 05/04/19 at 0636 by KATHERYN JERRY RN RN At 23:50, Pt was screaming "nurse, nurse", when asked "what's wrong", pt stated "nothing" and started to scream again, pt also trying to take of her BP cuff, venturi mask, and kicking her pillows off the bed. One dose of Haldol given. Will continue to monitor.
[2019-05-04] MEDS: Haloperidol 5mg/ml Inj IM PRN ×3 (00:02→16:46)
--- NOTE | 2019-05-04 02:00 | NUR ---
NURSE NOTES: Pt's in bed, asleep with eyes closed. VS stable. Will continue to monitor.
--- NOTE | 2019-05-04 04:00 | NUR ---
NURSE NOTES: Pt's resting in bed, asleep with eyes closed. VS stable. Will continue to monitor.
[2019-05-04] MEDS: Midodrine 10mg tab ORAL SCH (06:00)
--- NOTE | 2019-05-04 06:00 | NUR ---
NURSE NOTES: Pt's resting in bed, asleep, VS stable. BS 92. Will continue to monitor.
[2019-05-04] MEDS: Zosyn 2.25 gm in D5W 55ml IV SCH ×3 (06:03→21:49)
[2019-05-04] MEDS: HydrALAZINE 50mg tab ORAL SCH ×3 (06:04→21:54)
--- NOTE | 2019-05-04 07:20 | NUR ---
HAND-OFF: Report given to CHEPE Azul.
--- NOTE | 2019-05-04 07:30 | NUR ---
NURSE NOTES: Received bedside report from CHEPE Marcelo. Observed patient in bed, awake, restless, screaming. Patient is receiving oxygen via Venturi Mask, 12L, FiO2 50%, patient is saturating 97%. Continuous fraud analyst shows NSR with HR of 66. IV on left forearm 22g intact, patent, asymptomatic with IV fluids infusing at prescribed rate. Right upper arm AV shunt noted with good bruit and thrill present. Bilateral upper extremities noted with ecchymosis. Bilateral soft wrist restraints noted as ordered, will continue restraint care. Bilateral lower extremities also noted with ecchymosis and skin tears. Right foot amputee noted, dressing intact, clean and dry. Safety precautions in place; bed locked, alarmed and in lowest position, padded side rails up x2. Will continue plan of care and will continue to monitor patient.
--- NOTE | 2019-05-04 08:00 | NUR ---
NURSE NOTES: Patient appears to be asleep at this time, eyes closed. Respirations even and unlabored, no s/s of distress noted. Patient was repositioned. Patient is afebrile at this time. Will continue to monitor.
[2019-05-04 08:02] LABS: BASOPHILS % (AUTO) 0.4 % (0.0-2.0); EOSINOPHILS % (AUTO) 10.7 % (0.0-3.0); HEMATOCRIT 42.9 % (37.0-47.0); HEMOGLOBIN 13.4 G/DL (12.0-16.0); LYMPHOCYTES % (AUTO) 13.9 % (20.0-45.0); MEAN CORPUSCULAR VOLUME 98 FL (80-99); MONOCYTES % (AUTO) 9.6 % (1.0-10.0); NEUTROPHILS % (AUTO) 65.4 % (45.0-75.0); PLATELET COUNT 105 K/UL (150-450); RED BLOOD COUNT 4.39 M/UL (4.20-5.40); RED CELL DISTRIBUTION WIDTH 16.6 % (11.6-14.8); WHITE BLOOD COUNT 4.9 K/UL (4.8-10.8)
[2019-05-04 08:27] LABS: ALANINE AMINOTRANSFERASE 9 U/L (12-78); ALBUMIN 3.2 G/DL (3.4-5.0); ALBUMIN/GLOBULIN RATIO 0.9 (1.0-2.7); ALKALINE PHOSPHATASE 127 U/L (46-116); ANION GAP 12 mmol/L (5-15); ASPARTATE AMINO TRANSFERASE 18 U/L (15-37); BILIRUBIN,TOTAL 0.7 MG/DL (0.2-1.0); BLOOD UREA NITROGEN 32 mg/dL (7-18); CALCIUM 9.6 MG/DL (8.5-10.1); CARBON DIOXIDE 28 MMOL/L (21-32); CHLORIDE 100 MMOL/L (98-107); CREATININE 6.2 MG/DL (0.55-1.30); POTASSIUM 4.5 MMOL/L (3.5-5.1); SODIUM 140 MMOL/L (136-145)
[2019-05-04] MEDS: Dextrose 10% 1,000 ML IV SCH ×3 (08:44→23:00)
[2019-05-04] MEDS: levETIRAcetam 500mg/NS100ml 100 ML IVPB SCH ×2 (08:45→20:49)
[2019-05-04] MEDS: Pantoprazole Inj IVP SCH (08:45)
[2019-05-04] MEDS: Aspirin EC 81mg tab ORAL SCH (08:45)
[2019-05-04] MEDS: Heparin 5000 units/ml inj SUBQ SCH ×2 (08:52→20:56)
[2019-05-04] MEDS ORDERED: Vancomycin 1gm/D5W 275ml IVPB ONE ×2 (09:00)
--- NOTE | 2019-05-04 09:48 | Diagnostic Imaging Report ---
EXAM: XR Chest, 1 View CLINICAL HISTORY: INFECT TECHNIQUE: Frontal view of the chest. COMPARISON: Chest x-rays dated 05/01/19 FINDINGS: Lungs: Pulmonary vascular congestion. Subsegmental atelectasis versus infiltrates in bilateral lung bases. Pleural space: Bilateral mild to moderate layering pleural effusions, greater on the right, worsened compared to the prior exam. Heart: Unremarkable. No cardiomegaly. Mediastinum: Unremarkable. Bones/joints: Unremarkable. Vasculature: Atherosclerotic calcifications within the aortic arch. Tubes, lines and devices: Telemetry leads overlie the thorax. IMPRESSION: 1. Bilateral mild to moderate layering pleural effusions, greater on the right, worsened compared to the prior exam. 2. Pulmonary vascular congestion, not significantly changed. 3. Subsegmental atelectasis versus infiltrates in bilateral lung bases.
--- NOTE | 2019-05-04 10:00 | NUR ---
NURSE NOTES: Patient in bed, restless, yelling and screaming for nurse. Reoriented and reassured patient. Repositioned patient for comfort, left clean and dry. No acute distress noted. Patient tolerating Venturi mask 14L, FiO2 50%. Patient is saturating 96% at this time. Restraints in place, will continue restraints care and will continue to monitor patient.
--- NOTE | 2019-05-04 10:23 | Nephrology Progress Note ---
Assessment/Plan Problem List: (1) ESRD (end stage renal disease) on dialysis (2) CHF (congestive heart failure) (3) Fluid overload (4) Schizoaffective disorder, bipolar type (5) Diabetes mellitus, type II Assessment Admitted for respiratory distress and CHF and volume overload Unknown date of her last dialysis Conditions: (1) ESRD (end stage renal disease) on dialysis (2) Altered level of consciousness / Encephalopathy metabolic (3) Schizoaffective disorder, bipolar type (4) h/o Hypothyroidism (5) Anemia in chronic renal disease Also: - Cellulitis both LE - End-stage renal disease, on hemodialysis. fistula right arm - HTN / Pulmonary HTN - Diabetes type 2. Others - Morbid obesity. - H/O Colon Cancer - H/O Hep C - H/O Depression and Bipolar disease - Psych disease uncoaporative --Bilateral leg numbness --diabetic neuropathy --L5-S1 disc protrusion Plan on D10 since the blood sugar is low and patient on continuous BiPAP Was dialyzed on May 01 and 4 L was removed, due for dialysis today May 03 To recheck the chest x-ray Blood pressure and blood sugar under control Per orders Subjective ROS Limited/Unobtainable: No Constitutional: Reports: malaise, other - Moaning on and off Objective Objective Last 24 Hour Vital Signs Date Time Temp Pulse Resp B/P (MAP) Pulse Ox O2 Delivery O2 Flow Rate FiO2 05/04/19 09:27 62 18 97 05/04/19 09:00 67 27 181/55 (97) 97 05/04/19 08:53 Venturi Mask 14.0 05/04/19 08:00 97.9 67 18 179/63 (101) 96 05/04/19 08:00 10.0 40 05/04/19 07:24 66 20 98 05/04/19 07:00 63 12 169/57 (94) 95 05/04/19 06:04 167/58 05/04/19 06:00 59 17 165/47 (86) 99 05/04/19 05:37 62 23 97 05/04/19 05:00 98.7 61 25 168/56 (93) 95 05/04/19 04:55 63 17 96 45 05/04/19 04:00 67 20 160/48 (85) 95 05/04/19 04:00 Bi-pap 15.0 05/04/19 04:00 40 05/04/19 04:00 70 05/04/19 03:54 62 17 91 45 05/04/19 03:02 70 19 96 05/04/19 03:00 67 20 174/60 (98) 95 05/04/19 02:00 66 21 166/55 (92) 94 05/04/19 01:00 67 19 177/59 (98) 99 05/04/19 00:30 67 17 173/56 (95) 97 05/04/19 00:00 Bi-pap 15.0 05/04/19 00:00 64 16 157/58 (91) 97 05/04/19 00:00 10.0 40 05/04/19 00:00 66 05/03/19 23:24 72 18 98 05/03/19 23:00 64 22 153/61 (91) 96 05/03/19 22:23 154/54 05/03/19 22:00 66 17 154/54 (87) 97 05/03/19 21:00 65 22 154/57 (89) 99 05/03/19 20:00 Bi-pap 15.0 05/03/19 20:00 69 05/03/19 20:00 98.7 67 18 86/53 (64) 05/03/19 19:00 66 20 126/46 (72) 96 05/03/19 18:45 67 21 99 45 05/03/19 18:00 66 20 124/45 (71) 96 05/03/19 17:32 73 125/49 05/03/19 17:17 70 15 96 55 05/03/19 17:00 68 14 127/54 (78) 99 05/03/19 16:00 Bi-pap 15.0 05/03/19 16:00 98.3 67 18 129/47 (74) 100 05/03/19 16:00 68 05/03/19 16:00 40 05/03/19 15:00 65 14 113/51 (71) 99 05/03/19 14:45 59 14 96 55 05/03/19 14:30 126/49 05/03/19 14:00 64 14 69/21 (37) 99 05/03/19 13:00 61 18 100/43 (62) 97 05/03/19 12:59 100/43 05/03/19 12:00 Bi-pap 15.0 05/03/19 12:00 40 05/03/19 12:00 64 05/03/19 12:00 98.5 55 18 97/44 (61) 95 05/03/19 11:00 61 14 96 40 05/03/19 11:00 56 18 105/42 (63) 95 Intake and Output 05/03/19 05/04/19 19:00 07:00 Intake Total 30 ml 615 ml Output Total 80 ml 10 ml Balance -50 ml 605 ml Intake IV Total 30 ml 615 ml Output Urine Total 80 ml 10 ml # Bowel Movements 1 Laboratory Tests 05/03/19 14:29: Arterial Blood pH 7.398, Arterial Blood Partial Pressure CO2 41.6, Arterial Blood Partial Pressure O2 56.7L, Arterial Blood HCO3 25.1, Arterial Blood Oxygen Saturation 89.2*L, Arterial Blood Base Excess 0.2, Vishal Test Positive 05/04/19 05:19: White Blood Count 4.9, Red Blood Count 4.39, Hemoglobin 13.4, Hematocrit 42.9, Mean Corpuscular Volume 98, Mean Corpuscular Hemoglobin 30.5, Mean Corpuscular Hemoglobin Concent 31.2L, Red Cell Distribution Width 16.6H, Platelet Count 105L , Mean Platelet Volume 6.9, Neutrophils (%) (Auto) 65.4, Lymphocytes (%) (Auto) 13.9L, Monocytes (%) (Auto) 9.6, Eosinophils (%) (Auto) 10.7H, Basophils (%) ( Auto) 0.4, Sodium Level 140, Potassium Level 4.5, Chloride Level 100, Carbon Dioxide Level 28, Anion Gap 12, Blood Urea Nitrogen 32H, Creatinine 6.2H, Estimat Glomerular Filtration Rate 6.9, Glucose Level 81, Calcium Level 9.6, Total Bilirubin 0.7, Aspartate Amino Transf (AST/SGOT) 18, Alanine Aminotransferase (ALT/SGPT) 9L, Alkaline Phosphatase 127H, Total Protein 6.8, Albumin 3.2L, Globulin 3.6, Albumin/Globulin Ratio 0.9L, Random Vancomycin Level 12.1, Mycoplasma pneumoniae IgG Antibody [Pending], Mycoplasma pneumoniae IgM Ab Titer [Pending] Height (Feet): 5 Height (Inches): 4.00 Weight (Pounds): 186 General Appearance: no apparent distress, confused Cardiovascular: normal rate Respiratory/Chest: decreased breath sounds Abdomen: distended Objective No change Eamon Solis MD May 04, 2019 10:23
[2019-05-04 11:02] LABS: PHOSPHORUS 6.3 MG/DL (2.5-4.9)
--- NOTE | 2019-05-04 12:16 | Pulmonolgy Critical Care Note ---
Critical Care - Asmt/Plan Problems: (1) Fluid overload (2) HCAP (healthcare-associated pneumonia) (3) CHF (congestive heart failure) (4) Encephalopathy (5) ESRD (end stage renal disease) on dialysis (6) Non compliance with medical treatment (7) Obesity (BMI 30-39.9) (8) Seizure disorder (9) Lower extremity cellulitis (10) Foot ulcer due to secondary DM (11) Diabetes mellitus type 2 with neurological manifestations (12) Acute metabolic encephalopathy Assessment/Plan: ABG after HD PRN BiPAP Titrate O2 Monitor gas exchange Abx per ID Off pressors, dec Midodrine to 5 TID Monitor volumes, HD per renal with UF as able DVT Px: Hep SQ Monitor MS NPO, [employer] HELPER eval when more alert Wound care DNAR/DNI CCT 30 Critical Care - Objective Last 24 Hour Vital Signs Date Time Temp Pulse Resp B/P (MAP) Pulse Ox O2 Delivery O2 Flow Rate FiO2 05/04/19 11:23 66 19 97 05/04/19 11:00 62 27 172/54 (93) 94 05/04/19 10:00 64 18 164/60 (94) 95 05/04/19 09:27 62 18 97 05/04/19 09:00 67 27 181/55 (97) 97 05/04/19 08:53 Venturi Mask 14.0 05/04/19 08:00 97.9 67 18 179/63 (101) 96 05/04/19 08:00 10.0 40 05/04/19 07:24 66 20 98 05/04/19 07:00 63 12 169/57 (94) 95 05/04/19 06:04 167/58 05/04/19 06:00 59 17 165/47 (86) 99 05/04/19 05:37 62 23 97 05/04/19 05:00 98.7 61 25 168/56 (93) 95 05/04/19 04:55 63 17 96 45 05/04/19 04:00 67 20 160/48 (85) 95 05/04/19 04:00 Bi-pap 15.0 05/04/19 04:00 40 05/04/19 04:00 70 05/04/19 03:54 62 17 91 45 05/04/19 03:02 70 19 96 05/04/19 03:00 67 20 174/60 (98) 95 05/04/19 02:00 66 21 166/55 (92) 94 05/04/19 01:00 67 19 177/59 (98) 99 05/04/19 00:30 67 17 173/56 (95) 97 05/04/19 00:00 Bi-pap 15.0 05/04/19 00:00 64 16 157/58 (91) 97 05/04/19 00:00 10.0 40 05/04/19 00:00 66 05/03/19 23:24 72 18 98 05/03/19 23:00 64 22 153/61 (91) 96 05/03/19 22:23 154/54 05/03/19 22:00 66 17 154/54 (87) 97 05/03/19 21:00 65 22 154/57 (89) 99 05/03/19 20:00 Bi-pap 15.0 05/03/19 20:00 69 05/03/19 20:00 98.7 67 18 86/53 (64) 05/03/19 19:00 66 20 126/46 (72) 96 05/03/19 18:45 67 21 99 45 05/03/19 18:00 66 20 124/45 (71) 96 05/03/19 17:32 73 125/49 05/03/19 17:17 70 15 96 55 05/03/19 17:00 68 14 127/54 (78) 99 05/03/19 16:00 Bi-pap 15.0 05/03/19 16:00 98.3 67 18 129/47 (74) 100 05/03/19 16:00 68 05/03/19 16:00 40 05/03/19 15:00 65 14 113/51 (71) 99 05/03/19 14:45 59 14 96 55 05/03/19 14:30 126/49 05/03/19 14:00 64 14 69/21 (37) 99 05/03/19 13:00 61 18 100/43 (62) 97 05/03/19 12:59 100/43 Status: other - confused ob on BiPAP Condition: critical HEENT: atraumatic, normocephalic Neck: full ROM Lungs: rhonchi Heart: HR/BP unstable Abdomen: soft, non-tender, active bowel sounds Extremities: edema - 1+_, other - LE dressed Micro: Microbiology Date/Time Source Procedure Growth Status 05/01/19 21:00 Blood Blood Culture - Preliminary NO GROWTH AFTER 48 HOURS Resulted 05/01/19 20:45 Blood Blood Culture - Preliminary NO GROWTH AFTER 48 HOURS Resulted 05/01/19 23:10 Nasal Nares MRSA Culture - Final NO METHICILLIN RESISTANT STAPH AUREUS... Complete 05/01/19 20:50 Nasal Nares - Final Complete 05/01/19 20:50 Nasal Nares - Final Complete 05/01/19 23:10 Rectum VRE Culture - Final Enterococcus Faecalis - Vre Complete 05/01/19 23:10 Rectum - Final NO CARBAPENEM-RESISTANT ENTEROBACTERI... Complete Accucheck: 92 Blood Sugars: BS controlled Critical Care - Subjective ROS Limited/Unobtainable: Yes ICU Day: 3 Interval Events: On FM, off pressors, BP elevated, getting HD Condition: critical IV Access: peripheral - + RUE AV shunt EKG Rhythm: Sinus Rhythm FI02: 40 Vent Support Mode: BiLevel Sputum Amount: None Secretions: None Fluids: D10W@30 Drips: N/A I&O: Intake and Output 05/03/19 05/04/19 19:00 07:00 Intake Total 30 ml 615 ml Output Total 80 ml 10 ml Balance -50 ml 605 ml Intake IV Total 30 ml 615 ml Output Urine Total 80 ml 10 ml # Bowel Movements 1 Subjective: Confused CXR: PVC small/mod b eff Labs: Laboratory Tests Test 05/03/19 14:29 05/04/19 05:19 Arterial Blood pH 7.398 (7.350-7.450) Arterial Blood Partial Pressure CO2 41.6 mmHg (35.0-45.0) Arterial Blood Partial Pressure O2 56.7 mmHg (75.0-100.0) L Arterial Blood HCO3 25.1 mmol/L (22.0-26.0) Arterial Blood Oxygen Saturation 89.2 % (95-100) *L Arterial Blood Base Excess 0.2 (-2-2) Vishal Test Positive White Blood Count 4.9 K/UL (4.8-10.8) Red Blood Count 4.39 M/UL (4.20-5.40) Hemoglobin 13.4 G/DL (12.0-16.0) Hematocrit 42.9 % (37.0-47.0) Mean Corpuscular Volume 98 FL (80-99) Mean Corpuscular Hemoglobin 30.5 PG (27.0-31.0) Mean Corpuscular Hemoglobin Concent 31.2 G/DL (32.0-36.0) L Red Cell Distribution Width 16.6 % (11.6-14.8) H Platelet Count 105 K/UL (150-450) L Mean Platelet Volume 6.9 FL (6.5-10.1) Neutrophils (%) (Auto) 65.4 % (45.0-75.0) Lymphocytes (%) (Auto) 13.9 % (20.0-45.0) L Monocytes (%) (Auto) 9.6 % (1.0-10.0) Eosinophils (%) (Auto) 10.7 % (0.0-3.0) H Basophils (%) (Auto) 0.4 % (0.0-2.0) Sodium Level 140 MMOL/L (136-145) Potassium Level 4.5 MMOL/L (3.5-5.1) Chloride Level 100 MMOL/L (98-107) Carbon Dioxide Level 28 MMOL/L (21-32) Anion Gap 12 mmol/L (5-15) Blood Urea Nitrogen 32 mg/dL (7-18) H Creatinine 6.2 MG/DL (0.55-1.30) H Estimat Glomerular Filtration Rate 6.9 mL/min (>60) Glucose Level 81 MG/DL (74-106) Calcium Level 9.6 MG/DL (8.5-10.1) Phosphorus Level 6.3 MG/DL (2.5-4.9) H Magnesium Level 2.6 MG/DL (1.8-2.4) H Total Bilirubin 0.7 MG/DL (0.2-1.0) Aspartate Amino Transf (AST/SGOT) 18 U/L (15-37) Alanine Aminotransferase (ALT/SGPT) 9 U/L (12-78) L Alkaline Phosphatase 127 U/L (46-116) H Total Protein 6.8 G/DL (6.4-8.2) Albumin 3.2 G/DL (3.4-5.0) L Globulin 3.6 g/dL Albumin/Globulin Ratio 0.9 (1.0-2.7) L Random Vancomycin Level 12.1 ug/mL Mycoplasma pneumoniae IgG Antibody Pending Mycoplasma pneumoniae IgM Ab Titer Pending Dorian Rm MD May 04, 2019 12:16
--- NOTE | 2019-05-04 12:30 | NUR ---
NURSE NOTES: Dialysis nurse arrived at bedside for HD order. Patient repositioned prior to start of dialysis. Patient's blood sugar is 124mg/dL. IV fluids maintained at prescribed rate. Dr Rm present in the unit, new orders noted, will carry out. No s/s of distress at this time. Patient remains afebrile. Will continue to monitor.
--- NOTE | 2019-05-04 12:50 | NUR ---
NURSE NOTES: Dr Ornelas covering for Dr Rudolph at bedside, notified and made aware that heparin SQ was held for today d/t trending down platelet. Minimal bleeding noted on bilateral arms with ecchymosis. No new orders received at this time. HD ongoing.
--- NOTE | 2019-05-04 12:58 | Surgery Progress Note ---
Surgery Progress Note Subjective Additional Comments HTN today off bipap currently awake, responsive but not oridented Objective Last 24 Hour Vital Signs Date Time Temp Pulse Resp B/P (MAP) Pulse Ox O2 Delivery O2 Flow Rate FiO2 05/04/19 12:00 14.0 50 05/04/19 12:00 98.1 62 17 176/66 (102) 97 05/04/19 12:00 Venturi Mask 14.0 05/04/19 11:23 66 19 97 05/04/19 11:00 62 27 172/54 (93) 94 05/04/19 10:00 64 18 164/60 (94) 95 05/04/19 09:27 62 18 97 05/04/19 09:00 67 27 181/55 (97) 97 05/04/19 08:53 Venturi Mask 14.0 05/04/19 08:00 97.9 67 18 179/63 (101) 96 05/04/19 08:00 10.0 40 05/04/19 07:24 66 20 98 05/04/19 07:00 63 12 169/57 (94) 95 05/04/19 06:04 167/58 05/04/19 06:00 59 17 165/47 (86) 99 05/04/19 05:37 62 23 97 05/04/19 05:00 98.7 61 25 168/56 (93) 95 05/04/19 04:55 63 17 96 45 05/04/19 04:00 67 20 160/48 (85) 95 05/04/19 04:00 Bi-pap 15.0 05/04/19 04:00 40 05/04/19 04:00 70 05/04/19 03:54 62 17 91 45 05/04/19 03:02 70 19 96 05/04/19 03:00 67 20 174/60 (98) 95 05/04/19 02:00 66 21 166/55 (92) 94 05/04/19 01:00 67 19 177/59 (98) 99 05/04/19 00:30 67 17 173/56 (95) 97 05/04/19 00:00 Bi-pap 15.0 05/04/19 00:00 64 16 157/58 (91) 97 05/04/19 00:00 10.0 40 05/04/19 00:00 66 05/03/19 23:24 72 18 98 05/03/19 23:00 64 22 153/61 (91) 96 05/03/19 22:23 154/54 05/03/19 22:00 66 17 154/54 (87) 97 05/03/19 21:00 65 22 154/57 (89) 99 05/03/19 20:00 Bi-pap 15.0 05/03/19 20:00 69 05/03/19 20:00 98.7 67 18 86/53 (64) 05/03/19 19:00 66 20 126/46 (72) 96 05/03/19 18:45 67 21 99 45 05/03/19 18:00 66 20 124/45 (71) 96 05/03/19 17:32 73 125/49 05/03/19 17:17 70 15 96 55 05/03/19 17:00 68 14 127/54 (78) 99 05/03/19 16:00 Bi-pap 15.0 05/03/19 16:00 98.3 67 18 129/47 (74) 100 05/03/19 16:00 68 05/03/19 16:00 40 05/03/19 15:00 65 14 113/51 (71) 99 05/03/19 14:45 59 14 96 55 05/03/19 14:30 126/49 05/03/19 14:00 64 14 69/21 (37) 99 05/03/19 13:00 61 18 100/43 (62) 97 05/03/19 12:59 100/43 I&O Intake and Output 05/03/19 05/04/19 19:00 07:00 Intake Total 30 ml 615 ml Output Total 80 ml 10 ml Balance -50 ml 605 ml Intake IV Total 30 ml 615 ml Output Urine Total 80 ml 10 ml # Bowel Movements 1 Dressing: other Drains: other Cardiovascular: RSR Respiratory: decreased breath sounds Abdomen: soft, non-tender, present bowel sounds, non-distended Extremities: no cyanosis, other Laboratory Tests Test 05/03/19 14:29 05/04/19 05:19 Arterial Blood pH 7.398 (7.350-7.450) Arterial Blood Partial Pressure CO2 41.6 mmHg (35.0-45.0) Arterial Blood Partial Pressure O2 56.7 mmHg (75.0-100.0) L Arterial Blood HCO3 25.1 mmol/L (22.0-26.0) Arterial Blood Oxygen Saturation 89.2 % (95-100) *L Arterial Blood Base Excess 0.2 (-2-2) Vishal Test Positive White Blood Count 4.9 K/UL (4.8-10.8) Red Blood Count 4.39 M/UL (4.20-5.40) Hemoglobin 13.4 G/DL (12.0-16.0) Hematocrit 42.9 % (37.0-47.0) Mean Corpuscular Volume 98 FL (80-99) Mean Corpuscular Hemoglobin 30.5 PG (27.0-31.0) Mean Corpuscular Hemoglobin Concent 31.2 G/DL (32.0-36.0) L Red Cell Distribution Width 16.6 % (11.6-14.8) H Platelet Count 105 K/UL (150-450) L Mean Platelet Volume 6.9 FL (6.5-10.1) Neutrophils (%) (Auto) 65.4 % (45.0-75.0) Lymphocytes (%) (Auto) 13.9 % (20.0-45.0) L Monocytes (%) (Auto) 9.6 % (1.0-10.0) Eosinophils (%) (Auto) 10.7 % (0.0-3.0) H Basophils (%) (Auto) 0.4 % (0.0-2.0) Sodium Level 140 MMOL/L (136-145) Potassium Level 4.5 MMOL/L (3.5-5.1) Chloride Level 100 MMOL/L (98-107) Carbon Dioxide Level 28 MMOL/L (21-32) Anion Gap 12 mmol/L (5-15) Blood Urea Nitrogen 32 mg/dL (7-18) H Creatinine 6.2 MG/DL (0.55-1.30) H Estimat Glomerular Filtration Rate 6.9 mL/min (>60) Glucose Level 81 MG/DL (74-106) Calcium Level 9.6 MG/DL (8.5-10.1) Phosphorus Level 6.3 MG/DL (2.5-4.9) H Magnesium Level 2.6 MG/DL (1.8-2.4) H Total Bilirubin 0.7 MG/DL (0.2-1.0) Aspartate Amino Transf (AST/SGOT) 18 U/L (15-37) Alanine Aminotransferase (ALT/SGPT) 9 U/L (12-78) L Alkaline Phosphatase 127 U/L (46-116) H Total Protein 6.8 G/DL (6.4-8.2) Albumin 3.2 G/DL (3.4-5.0) L Globulin 3.6 g/dL Albumin/Globulin Ratio 0.9 (1.0-2.7) L Random Vancomycin Level 12.1 ug/mL Mycoplasma pneumoniae IgG Antibody Pending Mycoplasma pneumoniae IgM Ab Titer Pending Plan Problems: (1) Fluid overload Assessment & Plan: Patient with fluid overload BNP elevated pending cardiology input Likely respiratory component from this as well explaining URI Diurese Trend labs Pulmonary vascular congestion suspected with prominent pulmonary vascularity and interstitial densities with cardiomegaly. Costophrenic angles are well- visualized. Bones may be slightly osteopenic. Aorta is calcified. IMPRESSION: Suspected CHF (2) Lower extremity cellulitis Assessment & Plan: Patient with right TMA prior wound postoperative care had been provided for significant period time as it was improving. Some wound dehiscence identified. Mild cellulitis around the wound site. Antibiotics per infectious disease We will monitor closely over the next 24 hours if further surgical dimension necessary Furthermore identified to have a sacral deep tissue injury upon admission area of erythema 3 cm x 3 cm with superficial epidermal skin loss no dermal opening will monitor closely turn every 2 hours local care with skin protectant and foam dressing Thank you will follow with recommendations (3) Foot ulcer due to secondary DM Assessment & Plan: s/p tma Vic Ornelas May 04, 2019 12:58
--- NOTE | 2019-05-04 14:00 | NUR ---
NURSE NOTES: Patient appears to be sleeping at this time, HD ongoing, HD nurse at bedside. VSS. No acute distress noted at this time. Will continue to monitor.
[2019-05-04] MEDS ORDERED: Tubing IV Secondary IV ONE (14:06)
[2019-05-04] MEDS: DOPamine 400mg/250ml 250 ML IV SCH (14:30)
--- NOTE | 2019-05-04 15:00 | NUR ---
pt received hd tx via right av fistula by trung smith from 1200 to 1500,received pt from [facility]ong , pt stable with oxygen mask 10l. uf 3000ml stable vs and pt tolerated well clot time after hd a;8 min v;8min strong thrill and bruit vs 175/55 hr 61 endorsed to wong.
--- NOTE | 2019-05-04 15:30 | NUR ---
NURSE NOTES: Hemodialysis completed, reported output 3L. Patient tolerated well. VSS. Will continue to monitor.
--- NOTE | 2019-05-04 16:00 | NUR ---
NURSE NOTES: Complete bed bath given, juan care provided, linen changed, and placed patient on clean gown. Wound dressings replaced. Restraint care provided; passive range of motion, pulses checked. Patient remains on Venturi Mask, ABG drawn by RT per Dr Rm's order. Repositioned patient. Left clean and dry. Will continue to monitor.
--- NOTE | 2019-05-04 16:35 | NUR ---
NURSE NOTES: Dr Rm notified and made aware of patient's ABG results. Ordered to have patient on BiPAP at night, order noted, and will endorse to night nurse.
--- NOTE | 2019-05-04 16:47 | NUR ---
NURSE NOTES: Patient is agitated and restless, screaming and yelling for nurse repetitively despite reorientation and therapeutic communication . Patient was observed reaching for her leg to scratch, restraints in place. PRN Haldol given. Will continue to monitor.
--- NOTE | 2019-05-04 16:56 | General Progress Note ---
Assessment/Plan Status: stable Assessment/Plan: 57 year-old with history of ESRD on HD MWF through right upper extremity graft, obesity, schizophrenia, bipolar disorder, diabetes, hypertension, hyperlipidemia , chronic anemia who presented to the hospital with fever and cough #Acute hypoxic and hypercarbic respiratory failure #Suspected gram negative pneumonia (HCAP) #Bilateral infiltrates on CXR -continue ICU level of care. -DNR/DNI -continue BIPAP, attempt to wean off. -continue vancomycin and Zosyn, monitor drug levels -Pulmonology and ID consulted. Appreciate recs. -ABG with improvement. -Speech therapy for PO. #Septic shock - resolved #Hypotension - resolved #Hypertension BP as low as 50's on 05/02. 4L removed on 05/01. -d/c nifedipine. May reintroduce if HR continues to be elevated -s/p midodrine 10 mg TID -> 5 mg -> off -s/p dopamine, albumin 25 g x1. #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 -on IB antibiotics -consult wound care #ESRD #Fluid overload -Nephrology consult with Dr. Solis -Monitor electrolytes -Phosphate binders -HD prn. #Acute metabolic encephalopathy -will provide supportive care -fall and aspiration precautions -treat underlying acute medical issues #Schizophrenia and bipolar -continue outpatient psychiatric regimen -Dr. Beckett from psychiatry to see #Hypertensive urgency -Continue hydralazine, Nifedipine #DM type 2 -ISS #Epilepsy -Continue Keppra #Hypothyroidism -continue levothyroxine .I spent 38 minutes on this patient's case, and 35 mins was dedicated to critical care. Critical Care Services performed include: Telemetry Review Hemodynamic measurement interpretation Laboratory data review and interpretation Radiology image review and interpretation Interpretation of ABG's Discussion of patient's care with ICU team, ICU Nursing staff and/or consulting services Subjective Date patient seen: May 04, 2019 Constitutional: Denies: no symptoms, chills, diaphoresis, fever, malaise, weakness, other HEENT: Denies: no symptoms, eye pain, blurred vision, tearing, double vision, ear pain, ear discharge, nose pain, nose congestion, throat pain, throat swelling, mouth pain, mouth swelling, other Cardiovascular: Denies: no symptoms, chest pain, edema, irregular heart rate, lightheadedness, palpitations, syncope, other Respiratory: Denies: no symptoms, cough, orthopnea, shortness of breath, SOB with excertion, SOB at rest, sputum, stridor, wheezing, other Gastrointestinal/Abdominal: Denies: no symptoms, abdomen distended, abdominal pain, black stools, tarry stools, blood in stool, constipated, diarrhea, difficulty swallowing, nausea, poor appetite, poor fluid intake, rectal bleeding , vomiting, other Genitourinary: Denies: no symptoms, burning, discharge, frequency, flank pain, hematuria, incontinence, pain, urgency, other Neurologic/Psychiatric: Denies: no symptoms, anxiety, depressed, emotional problems, headache, numbness, paresthesia, pre-existing deficit, seizure, tingling, tremors, weakness, other Endocrine: Denies: no symptoms, excessive sweating, flushing, intolerance to cold, intolerance to heat, increased hunger, increased thirst, increased urine, unexplained weight gain, unexplained weight loss, other Hematologic/Lymphatic: Denies: no symptoms, anemia, easy bleeding, easy bruising, other Allergies: Coded Allergies: No Known Allergies (Verified , 08/23/06) Subjective resting comfortably. denies any issues. Objective Last 24 Hour Vital Signs Date Time Temp Pulse Resp B/P (MAP) Pulse Ox O2 Delivery O2 Flow Rate FiO2 05/04/19 16:23 97.5 71 26 167/61 (96) 99 05/04/19 16:00 64 18 98 05/04/19 16:00 14.0 50 05/04/19 16:00 Venturi Mask 14.0 05/04/19 15:00 68 16 97 05/04/19 15:00 62 13 152/41 (78) 98 05/04/19 14:30 167/61 05/04/19 14:00 73 14 155/52 (86) 99 05/04/19 14:00 126/55 05/04/19 13:02 61 18 98 05/04/19 13:00 62 14 179/56 (97) 98 05/04/19 12:15 61 05/04/19 12:00 14.0 50 05/04/19 12:00 98.1 62 17 176/66 (102) 97 05/04/19 12:00 Venturi Mask 14.0 05/04/19 11:23 66 19 97 05/04/19 11:00 62 27 172/54 (93) 94 05/04/19 10:00 64 18 164/60 (94) 95 05/04/19 09:27 62 18 97 05/04/19 09:00 67 27 181/55 (97) 97 05/04/19 08:53 Venturi Mask 14.0 05/04/19 08:00 97.9 67 18 179/63 (101) 96 05/04/19 08:00 10.0 40 05/04/19 07:47 69 05/04/19 07:24 66 20 98 05/04/19 07:00 63 12 169/57 (94) 95 05/04/19 06:04 167/58 05/04/19 06:00 59 17 165/47 (86) 99 05/04/19 05:37 62 23 97 05/04/19 05:00 98.7 61 25 168/56 (93) 95 05/04/19 04:55 63 17 96 45 05/04/19 04:00 67 20 160/48 (85) 95 05/04/19 04:00 Bi-pap 15.0 05/04/19 04:00 40 05/04/19 04:00 70 05/04/19 03:54 62 17 91 45 05/04/19 03:02 70 19 96 05/04/19 03:00 67 20 174/60 (98) 95 05/04/19 02:00 66 21 166/55 (92) 94 05/04/19 01:00 67 19 177/59 (98) 99 05/04/19 00:30 67 17 173/56 (95) 97 05/04/19 00:00 Bi-pap 15.0 05/04/19 00:00 64 16 157/58 (91) 97 05/04/19 00:00 10.0 40 05/04/19 00:00 66 05/03/19 23:24 72 18 98 05/03/19 23:00 64 22 153/61 (91) 96 05/03/19 22:23 154/54 05/03/19 22:00 66 17 154/54 (87) 97 05/03/19 21:00 65 22 154/57 (89) 99 05/03/19 20:00 Bi-pap 15.0 05/03/19 20:00 69 05/03/19 20:00 98.7 67 18 86/53 (64) 05/03/19 19:00 66 20 126/46 (72) 96 05/03/19 18:45 67 21 99 45 05/03/19 18:00 66 20 124/45 (71) 96 05/03/19 17:32 73 125/49 05/03/19 17:17 70 15 96 55 05/03/19 17:00 68 14 127/54 (78) 99 Intake and Output 05/03/19 05/04/19 19:00 07:00 Intake Total 30 ml 615 ml Output Total 80 ml 10 ml Balance -50 ml 605 ml Intake IV Total 30 ml 615 ml Output Urine Total 80 ml 10 ml # Bowel Movements 1 Laboratory Tests 05/04/19 05:19: White Blood Count 4.9, Red Blood Count 4.39, Hemoglobin 13.4, Hematocrit 42.9, Mean Corpuscular Volume 98, Mean Corpuscular Hemoglobin 30.5, Mean Corpuscular Hemoglobin Concent 31.2L, Red Cell Distribution Width 16.6H, Platelet Count 105L , Mean Platelet Volume 6.9, Neutrophils (%) (Auto) 65.4, Lymphocytes (%) (Auto) 13.9L, Monocytes (%) (Auto) 9.6, Eosinophils (%) (Auto) 10.7H, Basophils (%) ( Auto) 0.4, Sodium Level 140, Potassium Level 4.5, Chloride Level 100, Carbon Dioxide Level 28, Anion Gap 12, Blood Urea Nitrogen 32H, Creatinine 6.2H, Estimat Glomerular Filtration Rate 6.9, Glucose Level 81, Calcium Level 9.6, Phosphorus Level 6.3H, Magnesium Level 2.6H, Total Bilirubin 0.7, Aspartate Amino Transf (AST/SGOT) 18, Alanine Aminotransferase (ALT/SGPT) 9L, Alkaline Phosphatase 127H, Total Protein 6.8, Albumin 3.2L, Globulin 3.6, Albumin/ Globulin Ratio 0.9L, Random Vancomycin Level 12.1, Mycoplasma pneumoniae IgG Antibody [Pending], Mycoplasma pneumoniae IgM Ab Titer [Pending] 05/04/19 15:34: Arterial Blood pH 7.399, Arterial Blood Partial Pressure CO2 55.1*H, Arterial Blood Partial Pressure O2 71.3L, Arterial Blood HCO3 33.3H, Arterial Blood Oxygen Saturation 93.7L, Arterial Blood Base Excess 6.8H, Vishal Test Positive Height (Feet): 5 Height (Inches): 4.00 Weight (Pounds): 186 General Appearance: no apparent distress, alert Neck: supple Cardiovascular: normal rate, regular rhythm Respiratory/Chest: lungs clear, normal breath sounds Abdomen: non tender, soft Juan Carlos Ornelas M.D. May 04, 2019 16:55
--- NOTE | 2019-05-04 18:00 | NUR ---
NURSE NOTES: Patient is restless, agitated, and yelling/screaming repetitively. Patient pulled out peripheral IV. Restraints reinforced; bilateral soft wrist restraints in place and placed right hand mittens. IV inserted on the left wrist with 22g, patent and asymptomatic, resumed IV fluids as ordered. Bilateral upper extremities wrapped with gauze dressing d/t bleeding. Hernandez catheter remains in place, draining to gravity. Will continue to monitor patient. Repositioned patient in bed. Will continue to monitor.
--- NOTE | 2019-05-04 18:29 | Infectious Diseases Prog Note ---
Assessment/Plan Assessment/Plan ASSESSMENT AND PLAN: 1. pneumonia, sepsis, sirs, bilateral leg cellulitis, right foot wound, hypothermia, sob - vancomycin, zosyn, doxycycline - check sc, serology, chest x-ray, labs - icu cares, skin care per protocol - pulmonary tx/support 2. End-stage renal disease, on hemodialysis. 3. Right TMA with some wound dehiscence. 4. Wound care protocol. 5. ICU care. 6. Waller. 7. End-stage renal disease, on hemodialysis treatment per [facility]. 8. Right upper extremity graft. 9. Obesity. 10. Schizophrenia and bipolar disease. 11. Diabetes. 12. Hypertension. 13. Hyperlipidemia. 14. Anemia. 15. Blood sugar and blood pressure treatment for diabetes and hypertension per primary care team. 16. Hypothyroidism. 17. Thyroid supplementation. 18. Encephalopathy. 19. Epilepsy. 20. Past medical history noted 21. No known drug allergies. 22. Social history is negative. 23. Family history is noncontributory. 24. MAR is noted. 25. Case was discussed with RN. 26. vre colonization Subjective Constitutional: Reports: fever, fatigue, other - more alert, off bipap, less sob, no pressors HEENT: Reports: congestion - less Respiratory: Reports: shortness of breath - less Cardiovascular: Denies: chest pain Gastrointestinal/Abdominal: Denies: nausea, vomiting, diarrhea Genitourinary: Reports: other - + waller Neurologic: Denies: headache Psychiatric: Reports: other - more agitated Skin: Denies: rash Hematologic: Denies: bleeding Musculoskeletal: Denies: pain Allergies: Coded Allergies: No Known Allergies (Verified , 08/23/06) Objective Vital Signs Last 24 Hour Vital Signs Date Time Temp Pulse Resp B/P (MAP) Pulse Ox O2 Delivery O2 Flow Rate FiO2 05/04/19 18:00 61 15 167/95 (119) 98 05/04/19 17:22 62 18 97 05/04/19 17:00 62 16 173/57 (95) 100 05/04/19 16:23 97.5 71 26 167/61 (96) 99 05/04/19 16:00 64 18 98 05/04/19 16:00 14.0 50 05/04/19 16:00 Venturi Mask 14.0 05/04/19 15:00 68 16 97 05/04/19 15:00 62 13 152/41 (78) 98 05/04/19 14:30 167/61 05/04/19 14:00 73 14 155/52 (86) 99 05/04/19 14:00 126/55 05/04/19 13:02 61 18 98 05/04/19 13:00 62 14 179/56 (97) 98 05/04/19 12:15 61 05/04/19 12:00 14.0 50 05/04/19 12:00 98.1 62 17 176/66 (102) 97 05/04/19 12:00 Venturi Mask 14.0 05/04/19 11:23 66 19 97 05/04/19 11:00 62 27 172/54 (93) 94 05/04/19 10:00 64 18 164/60 (94) 95 05/04/19 09:27 62 18 97 05/04/19 09:00 67 27 181/55 (97) 97 05/04/19 08:53 Venturi Mask 14.0 05/04/19 08:00 97.9 67 18 179/63 (101) 96 05/04/19 08:00 10.0 40 05/04/19 07:47 69 05/04/19 07:24 66 20 98 05/04/19 07:00 63 12 169/57 (94) 95 05/04/19 06:04 167/58 05/04/19 06:00 59 17 165/47 (86) 99 05/04/19 05:37 62 23 97 05/04/19 05:00 98.7 61 25 168/56 (93) 95 05/04/19 04:55 63 17 96 45 05/04/19 04:00 67 20 160/48 (85) 95 05/04/19 04:00 Bi-pap 15.0 05/04/19 04:00 40 05/04/19 04:00 70 05/04/19 03:54 62 17 91 45 05/04/19 03:02 70 19 96 05/04/19 03:00 67 20 174/60 (98) 95 05/04/19 02:00 66 21 166/55 (92) 94 05/04/19 01:00 67 19 177/59 (98) 99 05/04/19 00:30 67 17 173/56 (95) 97 05/04/19 00:00 Bi-pap 15.0 05/04/19 00:00 64 16 157/58 (91) 97 05/04/19 00:00 10.0 40 05/04/19 00:00 66 05/03/19 23:24 72 18 98 05/03/19 23:00 64 22 153/61 (91) 96 05/03/19 22:23 154/54 05/03/19 22:00 66 17 154/54 (87) 97 05/03/19 21:00 65 22 154/57 (89) 99 05/03/19 20:00 Bi-pap 15.0 05/03/19 20:00 69 05/03/19 20:00 98.7 67 18 86/53 (64) 05/03/19 19:00 66 20 126/46 (72) 96 05/03/19 18:45 67 21 99 45 Height (Feet): 5 Height (Inches): 4.00 Weight (Pounds): 186 General Appearance: no acute distress HEENT: normocephalic, atraumatic, anicteric, mucous membranes moist Respiratory/Chest: crackles/rales, rhonchi - bilaterally Cardiovascular: normal rate, regular rhythm, no gallop/murmur, no JVD Abdomen: normal bowel sounds, soft, non tender, no organomegaly, non distended Genitourinary: other - + waller - urine slt cloudy Extremities: no cyanosis Skin: no rash 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 COMPARISON: Chest x-rays dated 05/01/19 FINDINGS: Lungs: Pulmonary vascular congestion. Subsegmental atelectasis versus infiltrates in bilateral lung bases. Pleural space: Bilateral mild to moderate layering pleural effusions, greater on the right, worsened compared to the prior exam. Heart: Unremarkable. No cardiomegaly. Mediastinum: Unremarkable. Bones/joints: Unremarkable. Vasculature: Atherosclerotic calcifications within the aortic arch. Tubes, lines and devices: Telemetry leads overlie the thorax. IMPRESSION: 1. Bilateral mild to moderate layering pleural effusions, greater on the right, worsened compared to the prior exam. 2. Pulmonary vascular congestion, not significantly changed. 3. Subsegmental atelectasis versus infiltrates in bilateral lung bases. x-ray - right foot: Procedure: XRAY Foot 2v R EXAM: XR Right Foot, 2 Views CLINICAL HISTORY: INFECT TECHNIQUE: Frontal and lateral views of the right foot. COMPARISON: Right foot x-rays dated 11/11/17 FINDINGS: Bones/joints: Status post transmetatarsal amputation. No acute fracture or dislocation seen in the hindfoot or midfoot. Incidental note of small plantar calcaneal bony spur and small adjacent enthesophyte. Soft tissues: Unremarkable. No radiopaque foreign body. Vasculature: Scattered vascular calcifications throughout the foot and ankle. IMPRESSION: 1. No acute findings. 2. Status post transmetatarsal amputation. If there is clinical concern for osteomyelitis, MRI or nuclear medicine bone scan should be considered. Microbiology Date/Time Source Procedure Growth Status 05/01/19 21:00 Blood Blood Culture - Preliminary NO GROWTH AFTER 48 HOURS Resulted 05/01/19 20:45 Blood Blood Culture - Preliminary NO GROWTH AFTER 48 HOURS Resulted 05/01/19 23:10 Nasal Nares MRSA Culture - Final NO METHICILLIN RESISTANT STAPH AUREUS... Complete 05/01/19 20:50 Nasal Nares - Final Complete 05/01/19 20:50 Nasal Nares - Final Complete 05/01/19 23:10 Rectum VRE Culture - Final Enterococcus Faecalis - Vre Complete 05/01/19 23:10 Rectum - Final NO CARBAPENEM-RESISTANT ENTEROBACTERI... Complete Laboratory Tests Test 05/04/19 05:19 05/04/19 15:34 White Blood Count 4.9 K/UL (4.8-10.8) Red Blood Count 4.39 M/UL (4.20-5.40) Hemoglobin 13.4 G/DL (12.0-16.0) Hematocrit 42.9 % (37.0-47.0) Mean Corpuscular Volume 98 FL (80-99) Mean Corpuscular Hemoglobin 30.5 PG (27.0-31.0) Mean Corpuscular Hemoglobin Concent 31.2 G/DL (32.0-36.0) L Red Cell Distribution Width 16.6 % (11.6-14.8) H Platelet Count 105 K/UL (150-450) L Mean Platelet Volume 6.9 FL (6.5-10.1) Neutrophils (%) (Auto) 65.4 % (45.0-75.0) Lymphocytes (%) (Auto) 13.9 % (20.0-45.0) L Monocytes (%) (Auto) 9.6 % (1.0-10.0) Eosinophils (%) (Auto) 10.7 % (0.0-3.0) H Basophils (%) (Auto) 0.4 % (0.0-2.0) Sodium Level 140 MMOL/L (136-145) Potassium Level 4.5 MMOL/L (3.5-5.1) Chloride Level 100 MMOL/L (98-107) Carbon Dioxide Level 28 MMOL/L (21-32) Anion Gap 12 mmol/L (5-15) Blood Urea Nitrogen 32 mg/dL (7-18) H Creatinine 6.2 MG/DL (0.55-1.30) H Estimat Glomerular Filtration Rate 6.9 mL/min (>60) Glucose Level 81 MG/DL (74-106) Calcium Level 9.6 MG/DL (8.5-10.1) Phosphorus Level 6.3 MG/DL (2.5-4.9) H Magnesium Level 2.6 MG/DL (1.8-2.4) H Total Bilirubin 0.7 MG/DL (0.2-1.0) Aspartate Amino Transf (AST/SGOT) 18 U/L (15-37) Alanine Aminotransferase (ALT/SGPT) 9 U/L (12-78) L Alkaline Phosphatase 127 U/L (46-116) H Total Protein 6.8 G/DL (6.4-8.2) Albumin 3.2 G/DL (3.4-5.0) L Globulin 3.6 g/dL Albumin/Globulin Ratio 0.9 (1.0-2.7) L Random Vancomycin Level 12.1 ug/mL Mycoplasma pneumoniae IgG Antibody Pending Mycoplasma pneumoniae IgM Ab Titer Pending Arterial Blood pH 7.399 (7.350-7.450) Arterial Blood Partial Pressure CO2 55.1 mmHg (35.0-45.0) *H Arterial Blood Partial Pressure O2 71.3 mmHg (75.0-100.0) L Arterial Blood HCO3 33.3 mmol/L (22.0-26.0) H Arterial Blood Oxygen Saturation 93.7 % (95-100) L Arterial Blood Base Excess 6.8 (-2-2) H Vishal Test Positive Current Medications Medications (Trade) Dose Ordered Sig/Gabriele Route PRN Reason Start Time Stop Time Status Last Admin Dose Admin Aspirin (Ecotrin) 81 mg DAILY ORAL 05/02/19 10:00 06/16/19 09:59 05/04/19 08:45 Atorvastatin Calcium (Lipitor) 20 mg BEDTIME ORAL 05/02/19 21:00 06/01/19 20:59 05/03/19 21:03 Dextrose 1,000 ml @ 30 mls/hr Q24H IV 05/03/19 09:00 06/02/19 08:59 05/04/19 10:12 Dextrose (Dextrose 50%) 25 ml Q30M PRN IV Hypoglycemia 05/02/19 03:45 06/01/19 03:44 Dextrose (Dextrose 50%) 50 ml Q30M PRN IV Hypoglycemia 05/02/19 03:45 06/01/19 03:44 Dopamine HCl/ Dextrose 250 ml @ 0 mls/hr Q24H IV 05/03/19 14:30 06/02/19 14:29 Doxycycline Hyclate 100 mg/ Dextrose 100 ml @ 100 mls/hr Q12HR IV 05/03/19 09:00 05/10/19 08:59 05/04/19 09:00 Haloperidol Lactate (Haldol) 5 mg Q6H PRN IM Agitation 05/02/19 17:00 06/16/19 16:59 05/04/19 16:46 Heparin Sodium (Porcine) (Heparin 5000 units/ml) 5,000 units EVERY 12 HOURS SUBQ 05/02/19 09:00 06/16/19 08:59 05/03/19 21:19 Hydralazine HCl (Apresoline) 10 mg Q6H PRN IV For High Blood Pressure 05/02/19 05:30 06/01/19 05:29 05/02/19 15:36 Hydralazine HCl (Apresoline) 50 mg Q8HR ORAL 05/02/19 10:00 06/01/19 09:59 05/04/19 06:04 Levetiracetam 100 ml @ 400 mls/hr Q12HR IVPB 05/02/19 21:00 06/01/19 20:59 05/04/19 08:45 Levothyroxine Sodium (Synthroid) 100 mcg DAILY@0630 ORAL 05/03/19 06:30 06/02/19 06:29 05/04/19 06:04 Pantoprazole (Protonix) 40 mg DAILY IVP 05/02/19 09:00 06/01/19 08:59 05/04/19 08:45 Piperacillin Sod/ Tazobactam Sod 2.25 gm/Dextrose 55 ml @ 110 mls/hr Q8HR IV 05/02/19 22:00 05/09/19 21:59 05/04/19 15:19 Risperidone (RisperDAL) 4 mg BEDTIME ORAL 05/02/19 21:00 06/16/19 20:59 05/03/19 21:03 Vancomycin HCl (Vanco rx to dose) 1 ea DAILY PRN MISC Per rx protocol 05/02/19 09:00 06/01/19 03:14 Nehal Nolasco MD May 04, 2019 18:29
--- NOTE | 2019-05-04 18:52 | NUR ---
NURSE NOTES: Spoke to Dr. Ornelas regarding transfer of patient. Per MD ok to transfer to Tele.
--- NOTE | 2019-05-04 19:10 | NUR ---
HAND-OFF: Report given to CHEPE Eddy. Endorsed plan of care.
--- NOTE | 2019-05-04 20:00 | NUR ---
NURSE NOTES: received report from wong rn pt awake but confuse and restless on jeannie soft restraint nan complaint on vtm 14 l 50 5
[2019-05-04] MEDS: Atorvastatin 20mg tab ORAL SCH (20:51)
--- NOTE | 2019-05-04 22:00 | NUR ---
NURSE NOTES: bp204/88 medication given for >bp at 222o bp <150/5o
--- NOTE | 2019-05-04 23:00 | NUR ---
HAND-OFF: Report given to braulio redmond using sbar.
--- NOTE | 2019-05-04 23:01 | NUR ---
NURSE NOTES: Received pt from CHEPE Eddy. Pt awake, alert, and screaming nurse every 2 minutes. No IV site, bilateral arm and R. foot skin issues. Pt very agitated, Haladol given. Will call and ask for something to medicate her. Bed in lowest position. Call light within reach. Will continue to monitor.
[2019-05-05] VITALS (7 sets, daily range): BP systolic 104–204; BP diastolic 42–100
[2019-05-05] MEDS: Haloperidol 5mg/ml Inj IM PRN ×2 (01:03→14:27)
--- NOTE | 2019-05-05 02:33 | NUR ---
NURSE NOTES: Called and left a message with Dr. Loyd regarding pts agitation and request for continued restraints. Awaiting call back.
--- NOTE | 2019-05-05 02:54 | NUR ---
NURSE NOTES: dR. Blair CALLED BACK WITH THE FOLLOWING ORDERS: CONTINUE RESTRAINT GIVE ONE TIME DOSE OF HALDOL 2.5 WILL PUT IN ORDERS AND WILL CONTINUE TO MONITOR.
[2019-05-05] MEDS ORDERED: Haloperidol 5mg/ml Inj IM SCH (03:00)
[2019-05-05] MEDS: Piperacillin/Tazobactam 2.25 GM in D5W 55 ML IV SCH ×3 (06:09→21:56)
[2019-05-05] MEDS: HydrALAZINE 50mg tab ORAL SCH ×3 (06:09→21:11)
[2019-05-05 07:41] LABS: ALANINE AMINOTRANSFERASE 16 U/L (12-78); ALBUMIN 3.2 G/DL (3.4-5.0); ALBUMIN/GLOBULIN RATIO 0.8 (1.0-2.7); ALKALINE PHOSPHATASE 131 U/L (46-116); ANION GAP 14 mmol/L (5-15); ASPARTATE AMINO TRANSFERASE 26 U/L (15-37); BILIRUBIN,TOTAL 0.8 MG/DL (0.2-1.0); BLOOD UREA NITROGEN 18 mg/dL (7-18); CALCIUM 9.8 MG/DL (8.5-10.1); CARBON DIOXIDE 26 MMOL/L (21-32); CHLORIDE 101 MMOL/L (98-107); CREATININE 4.9 MG/DL (0.55-1.30); POTASSIUM 4.2 MMOL/L (3.5-5.1); SODIUM 141 MMOL/L (136-145)
--- NOTE | 2019-05-05 07:44 | NUR ---
HAND-OFF: Report given to CHEPE Driver. Pt stable.
[2019-05-05 07:45] LABS: HEMATOCRIT 41.1 % (37.0-47.0); HEMOGLOBIN 13.5 G/DL (12.0-16.0); MEAN CORPUSCULAR VOLUME 95 FL (80-99); PLATELET COUNT 94 K/UL (150-450); RED BLOOD COUNT 4.31 M/UL (4.20-5.40); RED CELL DISTRIBUTION WIDTH 16.7 % (11.6-14.8); WHITE BLOOD COUNT 4.1 K/UL (4.8-10.8)
--- NOTE | 2019-05-05 07:54 | NUR ---
NURSE NOTES: Received pt in bed, AAO x 2. On NC 1 L/min. IV on LFA 22g noted, running D10 @ 30 ml/hr. Bilateral soft restraint noted. Pulse present. FC noted, draining by gravity. Side rails padded for seizure precaution. Bed in the lowest, locked, and alarm on. Call light within reach. Will continue to monitor
--- NOTE | 2019-05-05 08:49 | NUR ---
CASE MANAGEMENT:REVIEW 05/05/19 SI: ACUTE RESPIRATORY FAILURE BILATERAL PNEUMONIA. SEPSIS. ESRD 97.7 64 18 149/68 97% ON VENTURI MASK 14L/50% PLT-94 CR+4.9 IS: IV DOXYCYCLINE Q12 IV ZOSYN Q8HRS IV KEPPRA Q12 IV PROTONIX QD : NOW ON TELEMETRY DCP: FROM [facility]
[2019-05-05] MEDS ORDERED: Heparin 5000 units/ml inj SUBQ SCH (09:00)
[2019-05-05] MEDS: Pantoprazole Inj IVP SCH (09:03)
[2019-05-05] MEDS: levETIRAcetam 500mg/NS100ml 100 ML IVPB SCH ×2 (09:03→20:18)
[2019-05-05] MEDS: Aspirin EC 81mg tab ORAL SCH (09:03)
--- NOTE | 2019-05-05 10:34 | NUR ---
NOTES: REFERRED FOR SWALLOW EVAL BY DR. VELASQUEZ, SEE FULL REPORT. DYSPHAGIA AND ASPIRATION RISK FACTORS FOR THIS 58 Y.O.F.: ACUTE MET ENCEPHALOPATHY, URI, PNA (HCAP SUSPECT GRAM NEGATIVE BUT ALSO HAS ASPIRATION RISK FROM DYSPHAGIA SEEN LAST ADMIT 2 MONTHS AGO ALSO HAD LUNG OPACITIES HCAP/ASP PNA FEB 2019), GENERAL WEAKNESS, FLUID OVERLOAD, HYPOXIA AND HYPERCAPNIA RESPIRATORY FAILURE, LOW SP02 90s admit,NOW NOW VENTURI MASK 14 LITERS, RESP RATE 18-22 BPM AT REST, SP02 94-99 %, HIGH BLOOD PRESSURE, PRODUCTIVE COUGH 2 DAYS SINCE ADMIT, CELLULITIS H/O MILD-MOD OP DYSPHAGIA, GERD, PNA (HCAP AND ASP RISK), RESP FAILURE, SEPSIS,POSSIBLE BILATERAL LUNG INFILTRATES NOW, COPD, CVA, ESRD WITH HD, HEP C, HTN, DM, CARDIAC D/O, PSYCH MDD SCHIZOAFFECTIVE D/O BIPOLAR TYPE, ANXIETY (ON RISPERDAL, ATIVAN) POLST NOT COMPLETED REGARDING TUBE FEEDINGS. AT [facility] [place] FOR MOD BARIUM SWALLOW STUDY 2 MONTHS AGO 02/2019 (SEE REPORT) HAD MILD-MOD OROPHARYNGEAL DYSPHAGIA, NO ASPIRATION BUT HAD RISK AND PLACED ON [facility] SOFT CHOPPED AND NECTAR THICK LIQUIDS. PER SNF [facility] SAME DIET TEXTURE JUST NOTED. NOW SHE IS NPO EXCEPT MEDS/ICE CHIPS AND NPO DAY 4. AT [facility] SOFT CHOPPED AND NECTAR THICK LIQUID DIET. PER RNLENNOX, NO OVERT ASPIRATION WITH CRUSHED MEDS AND APPLESAUCE. PATIENT DENIES SWALLOWING PROBLEMS AND ABLE TO EXPRESS NEEDS IN SOFT BUT AUDIBLE VOICE IN QUIET. INITIAL IMPRESSIONS S/S OF AT LEAST A MILD OROPHARYNGEAL DYSPHAGIA WITH INCREASED TRANSIT TIMES AND RISK FOR RESPIRATORY/SWALLOWING INCOORDINATION (GETS SOB ON VENTURI-MASK AND 22 BPM AT REST (COULD GO FASTER IF CHEWS TOO MUCH OR DRINKS LIQUIDS SEQUENTIALLY). GROSSLY FUNCTIONALS OROMOTOR SKILLS AND DENTITION. COUGH IS WEAK AND REFLEXIVE COUGH NOTED W/O PO AND SOUNDS CONGESTED NO NEED FOR ORAL SUCTION GIVEN NECTAR THICK LIQUIDS VIA TSP AND CUP, MILDLY SLOWER BUT GROSSLY FUNCTIONAL, NO OVERT ASPIRATION GIVEN PUREED TSP, TENDS TO CHEW FOR A FEW SECONDS, SWALLOW IS FUNCTIONAL, NO OVERT ASPIRATION GIVEN MASTICATED SOLIDS (1/2 CRACKER) SLOWER CHEWING AND RESP RATE UP TO 24 BPM WILL NEED TO REST IF ABOVE THIS), NO OVERT ASPIRATION RECOMMENDATIONS: CONSIDER REPEAT MOD BARIUM SWALLOW STUDY IF NEEDS (HAD 2 MONTHS AGO) IF PO GIVEN FOR QUALITY OF LIFE (PT WANTS TO EAT), CONSIDER MECH SOFT GROUND DIET (DISLIKES PUREED) AND NECTAR THICK LIQUIDS WITH POSTED ASP/REFLUX PRECAUTIONS AND ONE TO ONE FEEDING CRUSH CRUSHABLE MEDS AND REST OF RESP RATE MORE THAN 24 BPM DIET TYPE AT [facility] OR SEE RD REPORT WHEN AVAILABLE SKILLED DYSPHAGIA MANAGEMENT AND TX AND COGNITIVE-COM EVAL/TX EDUCATED/TRAINED STAFF IN POSTED PRECAUTIONS
--- NOTE | 2019-05-05 12:20 | NUR ---
*-* INSURANCE *-* ALL CLINICALS AND REVIEWS HAVE BEEN FAXED TO: [employer] Ref# [id number] # [phone] fax#[phone]
--- NOTE | 2019-05-05 12:31 | Nephrology Progress Note ---
Assessment/Plan Problem List: (1) ESRD (end stage renal disease) on dialysis (2) CHF (congestive heart failure) (3) Fluid overload (4) Schizoaffective disorder, bipolar type (5) Diabetes mellitus, type II Assessment Admitted for respiratory distress and CHF and volume overload Unknown date of her last dialysis Conditions: (1) ESRD (end stage renal disease) on dialysis (2) Altered level of consciousness / Encephalopathy metabolic (3) Schizoaffective disorder, bipolar type (4) h/o Hypothyroidism (5) Anemia in chronic renal disease Also: - Cellulitis both LE - End-stage renal disease, on hemodialysis. fistula right arm - HTN / Pulmonary HTN - Diabetes type 2. Others - Morbid obesity. - H/O Colon Cancer - H/O Hep C - H/O Depression and Bipolar disease - Psych disease uncoaporative --Bilateral leg numbness --diabetic neuropathy --L5-S1 disc protrusion Plan And is now off BiPAP and on monitor bed She is lethargic Her next dialysis is tomorrow May 05 on D10 since the blood sugar is low and patient on continuous BiPAP Was dialyzed on May 01 and 4 L was removed, due for dialysis today May 03 To recheck the chest x-ray Blood pressure and blood sugar under control Per orders Subjective ROS Limited/Unobtainable: No Constitutional: Reports: malaise Objective Objective Last 24 Hour Vital Signs Date Time Temp Pulse Resp B/P (MAP) Pulse Ox O2 Delivery O2 Flow Rate FiO2 05/05/19 12:00 1.0 50 05/05/19 12:00 97.3 16 104/42 (62) 94 05/05/19 11:12 71 152/74 05/05/19 11:00 152/74 (100) 05/05/19 09:04 204/100 05/05/19 08:03 Venturi Mask 14.0 05/05/19 08:00 97.0 95 22 204/100 (134) 95 05/05/19 08:00 1.0 50 05/05/19 08:00 71 05/05/19 06:09 149/68 05/05/19 04:00 97.7 64 18 149/68 (95) 97 05/05/19 04:00 14.0 50 05/05/19 04:00 71 05/05/19 04:00 Venturi Mask 14.0 05/05/19 00:00 Venturi Mask 14.0 05/05/19 00:00 69 05/05/19 00:00 98.0 67 18 151/77 (101) 99 05/04/19 23:20 66 18 97 45 05/04/19 23:00 84 22 150/88 (108) 99 05/04/19 22:00 84 22 150/50 (83) 99 05/04/19 21:54 204/73 05/04/19 21:31 213/88 05/04/19 21:00 80 20 204/88 (126) 99 05/04/19 21:00 22 150/84 (106) 99 05/04/19 21:00 70 20 200/86 (124) 98 74 05/04/19 20:00 Venturi Mask 14.0 05/04/19 20:00 70 05/04/19 20:00 14.0 50 05/04/19 20:00 98.4 74 18 180/88 (118) 98 05/04/19 18:00 61 15 167/95 (119) 98 05/04/19 17:22 62 18 97 05/04/19 17:00 62 16 173/57 (95) 100 05/04/19 16:23 97.5 71 26 167/61 (96) 99 05/04/19 16:00 64 18 98 05/04/19 16:00 64 05/04/19 16:00 14.0 50 05/04/19 16:00 Venturi Mask 14.0 05/04/19 15:00 68 16 97 05/04/19 15:00 62 13 152/41 (78) 98 05/04/19 14:30 167/61 05/04/19 14:00 73 14 155/52 (86) 99 05/04/19 14:00 126/55 05/04/19 13:02 61 18 98 05/04/19 13:00 62 14 179/56 (97) 98 Intake and Output 05/04/19 05/05/19 19:00 07:00 Intake Total 2854.0000 ml Output Total 2100 ml 680 ml Balance 754.0000 ml -680 ml Intake IV Total 854.0000 ml Hemodialysis 2000 ml Output Urine Total 100 ml 680 ml Hemodialysis UF 2000 ml # Voids 2 # Bowel Movements 5 Laboratory Tests 05/04/19 15:34: Arterial Blood pH 7.399, Arterial Blood Partial Pressure CO2 55.1*H, Arterial Blood Partial Pressure O2 71.3L, Arterial Blood HCO3 33.3H, Arterial Blood Oxygen Saturation 93.7L, Arterial Blood Base Excess 6.8H, Vishal Test Positive 05/05/19 07:06: White Blood Count 4.1L, Red Blood Count 4.31, Hemoglobin 13.5, Hematocrit 41.1, Mean Corpuscular Volume 95, Mean Corpuscular Hemoglobin 31.4H, Mean Corpuscular Hemoglobin Concent 32.9, Red Cell Distribution Width 16.7H, Platelet Count 94L, Mean Platelet Volume 8.1, Neutrophils (%) (Auto) , Lymphocytes (%) (Auto) , Monocytes (%) (Auto) , Eosinophils (%) (Auto) , Basophils (%) (Auto) , Differential Total Cells Counted 100, Neutrophils % (Manual) 71, Lymphocytes % ( Manual) 10L, Monocytes % (Manual) 9, Eosinophils % (Manual) 10H, Basophils % ( Manual) 0, Band Neutrophils 0, Platelet Estimate DecreasedL, Platelet Morphology Normal, Anisocytosis 1+, Sodium Level 141, Potassium Level 4.2, Chloride Level 101, Carbon Dioxide Level 26, Anion Gap 14, Blood Urea Nitrogen 18, Creatinine 4.9H, Estimat Glomerular Filtration Rate 9.1, Glucose Level 100, Calcium Level 9.8, Total Bilirubin 0.8, Aspartate Amino Transf (AST/SGOT) 26, Alanine Aminotransferase (ALT/SGPT) 16, Alkaline Phosphatase 131H, Total Protein 7.1, Albumin 3.2L, Globulin 3.9, Albumin/Globulin Ratio 0.8L Height (Feet): 5 Height (Inches): 4.00 Weight (Pounds): 185 General Appearance: no apparent distress, lethargic Cardiovascular: other - Variable Respiratory/Chest: decreased breath sounds Abdomen: soft Objective No change Eamon Solis MD May 05, 2019 12:30
--- NOTE | 2019-05-05 14:09 | Pulmonolgy Critical Care Note ---
Critical Care - Asmt/Plan Assessment/Plan: Pulmonary Critical Medicine Progress Note HPI Patient is a 57 year-old female with Past Medical History of ESRD on HD (MWF right upper extremity graft), Obesity, Schizophrenia, Bipolar Disorder, Diabetes , Hypertension, Hyperlipidemia, Chronic anemia. Admitted from SNF with subjective fever, dry cough, redness and tenderness at site of right TMA. Noted to have worsening respiratory distress, improved on NIPPV. Patient not able to provide history Now on flooe, less SOB, ABG noted Allergies: No Known Allergies Past Medical History: ESRD on HD (MWF right upper extremity graft), Obesity, Schizophrenia, Bipolar Disorder, Diabetes, Hypertension, Hyperlipidemia, Hypothyroidism, Chronic anemia Physical Exam Vital signs noted General Appearance: awake, chronically ill appearing HEENT: atraumatic, anicteric Neck: normal alignment, supple Respiratory/Chest: lungs clear, normal breath sounds, no respiratory distress, no accessory muscle use Cardiovascular/Chest: normal rate, regular rhythm Abdomen: non tender, soft Extremities: non-tender, normal inspection, no edema 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 Laboratory Tests Noted Assessment/Plan: 57 year-old with history of ESRD on HD MWF through right upper extremity graft, obesity, schizophrenia, bipolar disorder, diabetes, hypertension, hyperlipidemia , chronic anemia who presented to the hospital with fever and cough #Acute hypoxic and hypercarbic respiratory failure, improved #Suspected gram negative pneumonia (HCAP) #Bilateral infiltrates on CXR, pneumonia vs volume overload -AB per ID -HD per Renal #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 -Antibiotics per ID -wound care consulted #ESRD - renal following #Acute metabolic encephalopathy -supportive care -fall and aspiration precautions #Schizophrenia and bipolar -psychiatric following #Hypertensive urgency -Hydralazine, Nifedipine #DM type 2 -ISS #Epilepsy -Continue Keppra #Hypothyroidism -continue levothyroxine CXR: Interstitial infiltrates cw volume overload Critical Care - Objective Last 24 Hour Vital Signs Date Time Temp Pulse Resp B/P (MAP) Pulse Ox O2 Delivery O2 Flow Rate FiO2 05/05/19 13:50 104/42 05/05/19 12:00 1.0 50 05/05/19 12:00 97.3 16 104/42 (62) 94 05/05/19 12:00 69 05/05/19 11:12 71 152/74 05/05/19 11:00 152/74 (100) 05/05/19 09:04 204/100 05/05/19 08:03 Venturi Mask 14.0 05/05/19 08:00 97.0 95 22 204/100 (134) 95 05/05/19 08:00 1.0 50 05/05/19 08:00 71 05/05/19 06:09 149/68 05/05/19 04:00 97.7 64 18 149/68 (95) 97 05/05/19 04:00 14.0 50 05/05/19 04:00 71 05/05/19 04:00 Venturi Mask 14.0 05/05/19 00:00 Venturi Mask 14.0 05/05/19 00:00 69 05/05/19 00:00 98.0 67 18 151/77 (101) 99 05/04/19 23:20 66 18 97 45 05/04/19 23:00 84 22 150/88 (108) 99 05/04/19 22:00 84 22 150/50 (83) 99 05/04/19 21:54 204/73 05/04/19 21:31 213/88 05/04/19 21:00 80 20 204/88 (126) 99 05/04/19 21:00 22 150/84 (106) 99 05/04/19 21:00 70 20 200/86 (124) 98 74 05/04/19 20:00 Venturi Mask 14.0 05/04/19 20:00 70 05/04/19 20:00 14.0 50 05/04/19 20:00 98.4 74 18 180/88 (118) 98 05/04/19 18:00 61 15 167/95 (119) 98 05/04/19 17:22 62 18 97 05/04/19 17:00 62 16 173/57 (95) 100 05/04/19 16:23 97.5 71 26 167/61 (96) 99 05/04/19 16:00 64 18 98 05/04/19 16:00 64 05/04/19 16:00 14.0 50 05/04/19 16:00 Venturi Mask 14.0 05/04/19 15:00 68 16 97 05/04/19 15:00 62 13 152/41 (78) 98 05/04/19 14:30 167/61 Micro: Microbiology Date/Time Source Procedure Growth Status 05/04/19 03:15 Sputum Expectorated Gram Stain - Final Resulted 05/04/19 03:15 Sputum Expectorated Sputum Culture Pending Resulted Accucheck: 118 Critical Care - Subjective ROS Limited/Unobtainable: No FI02: 50 Vent Support Mode: BiLevel Sputum Amount: None I&O: Intake and Output 05/04/19 05/05/19 19:00 07:00 Intake Total 2854.0000 ml Output Total 2100 ml 680 ml Balance 754.0000 ml -680 ml Intake IV Total 854.0000 ml Hemodialysis 2000 ml Output Urine Total 100 ml 680 ml Hemodialysis UF 2000 ml # Voids 2 # Bowel Movements 5 Alejo eHrnandez MD May 05, 2019 14:09
--- NOTE | 2019-05-05 14:44 | NUR ---
HAND-OFF: Report given to [].
--- NOTE | 2019-05-05 14:45 | NUR ---
NURSE NOTES: Called [facility] and confirmed with Dominique regarding dialysis scheduled for 05/06/19
--- NOTE | 2019-05-05 15:43 | Surgery Progress Note ---
Surgery Progress Note Subjective Symptoms: improved Objective Last 24 Hour Vital Signs Date Time Temp Pulse Resp B/P (MAP) Pulse Ox O2 Delivery O2 Flow Rate FiO2 05/05/19 13:50 104/42 05/05/19 12:00 1.0 50 05/05/19 12:00 97.3 16 104/42 (62) 94 05/05/19 12:00 69 05/05/19 11:12 71 152/74 05/05/19 11:00 152/74 (100) 05/05/19 09:04 204/100 05/05/19 08:03 Venturi Mask 14.0 05/05/19 08:00 97.0 95 22 204/100 (134) 95 05/05/19 08:00 1.0 50 05/05/19 08:00 71 05/05/19 06:09 149/68 05/05/19 04:00 97.7 64 18 149/68 (95) 97 05/05/19 04:00 14.0 50 05/05/19 04:00 71 05/05/19 04:00 Venturi Mask 14.0 05/05/19 00:00 Venturi Mask 14.0 05/05/19 00:00 69 05/05/19 00:00 98.0 67 18 151/77 (101) 99 05/04/19 23:20 66 18 97 45 05/04/19 23:00 84 22 150/88 (108) 99 05/04/19 22:00 84 22 150/50 (83) 99 05/04/19 21:54 204/73 05/04/19 21:31 213/88 05/04/19 21:00 80 20 204/88 (126) 99 05/04/19 21:00 22 150/84 (106) 99 05/04/19 21:00 70 20 200/86 (124) 98 74 05/04/19 20:00 Venturi Mask 14.0 05/04/19 20:00 70 05/04/19 20:00 14.0 50 05/04/19 20:00 98.4 74 18 180/88 (118) 98 05/04/19 18:00 61 15 167/95 (119) 98 05/04/19 17:22 62 18 97 05/04/19 17:00 62 16 173/57 (95) 100 05/04/19 16:23 97.5 71 26 167/61 (96) 99 05/04/19 16:00 64 18 98 05/04/19 16:00 64 05/04/19 16:00 14.0 50 05/04/19 16:00 Venturi Mask 14.0 I&O Intake and Output 05/04/19 05/05/19 19:00 07:00 Intake Total 2854.0000 ml Output Total 2100 ml 680 ml Balance 754.0000 ml -680 ml Intake IV Total 854.0000 ml Hemodialysis 2000 ml Output Urine Total 100 ml 680 ml Hemodialysis UF 2000 ml # Voids 2 # Bowel Movements 5 Dressing: other Wound: other Drains: other Cardiovascular: RSR Respiratory: clear, decreased breath sounds Abdomen: soft, non-tender, present bowel sounds Extremities: no cyanosis, other Laboratory Tests Test 05/05/19 07:06 White Blood Count 4.1 K/UL (4.8-10.8) L Red Blood Count 4.31 M/UL (4.20-5.40) Hemoglobin 13.5 G/DL (12.0-16.0) Hematocrit 41.1 % (37.0-47.0) Mean Corpuscular Volume 95 FL (80-99) Mean Corpuscular Hemoglobin 31.4 PG (27.0-31.0) H Mean Corpuscular Hemoglobin Concent 32.9 G/DL (32.0-36.0) Red Cell Distribution Width 16.7 % (11.6-14.8) H Platelet Count 94 K/UL (150-450) L Mean Platelet Volume 8.1 FL (6.5-10.1) Neutrophils (%) (Auto) % (45.0-75.0) Lymphocytes (%) (Auto) % (20.0-45.0) Monocytes (%) (Auto) % (1.0-10.0) Eosinophils (%) (Auto) % (0.0-3.0) Basophils (%) (Auto) % (0.0-2.0) Differential Total Cells Counted 100 Neutrophils % (Manual) 71 % (45-75) Lymphocytes % (Manual) 10 % (20-45) L Monocytes % (Manual) 9 % (1-10) Eosinophils % (Manual) 10 % (0-3) H Basophils % (Manual) 0 % (0-2) Band Neutrophils 0 % (0-8) Platelet Estimate Decreased L Platelet Morphology Normal Anisocytosis 1+ Sodium Level 141 MMOL/L (136-145) Potassium Level 4.2 MMOL/L (3.5-5.1) Chloride Level 101 MMOL/L (98-107) Carbon Dioxide Level 26 MMOL/L (21-32) Anion Gap 14 mmol/L (5-15) Blood Urea Nitrogen 18 mg/dL (7-18) Creatinine 4.9 MG/DL (0.55-1.30) H Estimat Glomerular Filtration Rate 9.1 mL/min (>60) Glucose Level 100 MG/DL (74-106) Calcium Level 9.8 MG/DL (8.5-10.1) Total Bilirubin 0.8 MG/DL (0.2-1.0) Aspartate Amino Transf (AST/SGOT) 26 U/L (15-37) Alanine Aminotransferase (ALT/SGPT) 16 U/L (12-78) Alkaline Phosphatase 131 U/L (46-116) H Total Protein 7.1 G/DL (6.4-8.2) Albumin 3.2 G/DL (3.4-5.0) L Globulin 3.9 g/dL Albumin/Globulin Ratio 0.8 (1.0-2.7) L Plan Problems: (1) Fluid overload Assessment & Plan: Patient with fluid overload BNP elevated pending cardiology input Likely respiratory component from this as well explaining URI Diurese Trend labs Pulmonary vascular congestion suspected with prominent pulmonary vascularity and interstitial densities with cardiomegaly. Costophrenic angles are well- visualized. Bones may be slightly osteopenic. Aorta is calcified. IMPRESSION: Suspected CHF (2) Lower extremity cellulitis Assessment & Plan: Patient with right TMA prior wound postoperative care had been provided for significant period time as it was improving. Some wound dehiscence identified. Mild cellulitis around the wound site. Antibiotics per infectious disease We will monitor closely over the next 24 hours if further surgical dimension necessary Furthermore identified to have a sacral deep tissue injury upon admission area of erythema 3 cm x 3 cm with superficial epidermal skin loss no dermal opening will monitor closely turn every 2 hours local care with skin protectant and foam dressing Thank you will follow with recommendations (3) Foot ulcer due to secondary DM Assessment & Plan: s/p tma r Vic Wise 16, 2020 15:43
--- NOTE | 2019-05-05 16:23 | General Progress Note ---
Assessment/Plan Status: stable Assessment/Plan: 57 year-old with history of ESRD on HD MWF through right upper extremity graft, obesity, schizophrenia, bipolar disorder, diabetes, hypertension, hyperlipidemia , chronic anemia who presented to the hospital with fever and cough #Acute hypoxic and hypercarbic respiratory failure #Suspected gram negative pneumonia (HCAP) #Bilateral infiltrates on CXR -transferred to telemetry (05/03) from ICU. -DNR/DNI -continue supplemental oxygen, titrate down as tolerated. -continue zosyn/doxy per ID. -Pulmonology and ID consulted. Appreciate recs. -ABG with improvement. -Speech therapy. Currently taking PO. -Cultures so far NGTD. #Septic shock - resolved #Hypotension - resolved #Hypertension #Hypertensive urgency - resolved. BP as low as 50's on 05/02. 4L removed on 05/01. s/p dopamine, albumin, midodrine started, then became hypertensive up to SBP 200. -restart nifedipine XL 90 mg daily. -hydralazine prn for SBP > 160. -s/p midodrine 10 mg TID -> 5 mg -> off -s/p dopamine, albumin 25 g x1. #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 -on IB antibiotics -consult wound care #ESRD #Fluid overload -Nephrology consult with Dr. Solis -Monitor electrolytes -Phosphate binders -HD prn. #Acute metabolic encephalopathy -will provide supportive care -fall and aspiration precautions -treat underlying acute medical issues #Schizophrenia and bipolar -continue outpatient psychiatric regimen -Psych following -Haldol prn -risperidone qhs. #Hypertensive urgency -Continue hydralazine, Nifedipine #DM type 2 -ISS #HLD -continue ASA -continue statin. #Epilepsy -Continue Keppra #Hypothyroidism -continue levothyroxine #Moderate-severe protein calorie malnutrition -weight measurement -encourage PO intake. Time spent: 36 mins, >50% on counseling and coordination of care. Time of note doesn't reflect time of encounter. Subjective Date patient seen: May 05, 2019 Constitutional: Denies: no symptoms, chills, diaphoresis, fever, malaise, weakness, other HEENT: Denies: no symptoms, eye pain, blurred vision, tearing, double vision, ear pain, ear discharge, nose pain, nose congestion, throat pain, throat swelling, mouth pain, mouth swelling, other Cardiovascular: Denies: no symptoms, chest pain, edema, irregular heart rate, lightheadedness, palpitations, syncope, other Respiratory: Denies: no symptoms, cough, orthopnea, shortness of breath, SOB with excertion, SOB at rest, sputum, stridor, wheezing, other Gastrointestinal/Abdominal: Denies: no symptoms, abdomen distended, abdominal pain, black stools, tarry stools, blood in stool, constipated, diarrhea, difficulty swallowing, nausea, poor appetite, poor fluid intake, rectal bleeding , vomiting, other Genitourinary: Denies: no symptoms, burning, discharge, frequency, flank pain, hematuria, incontinence, pain, urgency, other Neurologic/Psychiatric: Denies: no symptoms, anxiety, depressed, emotional problems, headache, numbness, paresthesia, pre-existing deficit, seizure, tingling, tremors, weakness, other Endocrine: Denies: no symptoms, excessive sweating, flushing, intolerance to cold, intolerance to heat, increased hunger, increased thirst, increased urine, unexplained weight gain, unexplained weight loss, other Hematologic/Lymphatic: Denies: no symptoms, anemia, easy bleeding, easy bruising, other Allergies: Coded Allergies: No Known Allergies (Verified , 08/23/06) Subjective resting comfortably on nasal cannula. follows simple commands. denies any pain. Objective Last 24 Hour Vital Signs Date Time Temp Pulse Resp B/P (MAP) Pulse Ox O2 Delivery O2 Flow Rate FiO2 05/05/19 16:00 60 05/05/19 16:00 1.0 50 05/05/19 13:50 104/42 05/05/19 12:00 1.0 50 05/05/19 12:00 97.3 16 104/42 (62) 94 05/05/19 12:00 69 05/05/19 11:12 71 152/74 05/05/19 11:00 152/74 (100) 05/05/19 09:04 204/100 05/05/19 08:03 Venturi Mask 14.0 05/05/19 08:00 97.0 95 22 204/100 (134) 95 05/05/19 08:00 1.0 50 05/05/19 08:00 71 05/05/19 06:09 149/68 05/05/19 04:00 97.7 64 18 149/68 (95) 97 05/05/19 04:00 14.0 50 05/05/19 04:00 71 05/05/19 04:00 Venturi Mask 14.0 05/05/19 00:00 Venturi Mask 14.0 05/05/19 00:00 69 05/05/19 00:00 98.0 67 18 151/77 (101) 99 05/04/19 23:20 66 18 97 45 05/04/19 23:00 84 22 150/88 (108) 99 05/04/19 22:00 84 22 150/50 (83) 99 05/04/19 21:54 204/73 05/04/19 21:31 213/88 05/04/19 21:00 80 20 204/88 (126) 99 05/04/19 21:00 22 150/84 (106) 99 05/04/19 21:00 70 20 200/86 (124) 98 74 05/04/19 20:00 Venturi Mask 14.0 05/04/19 20:00 70 05/04/19 20:00 14.0 50 05/04/19 20:00 98.4 74 18 180/88 (118) 98 05/04/19 18:00 61 15 167/95 (119) 98 05/04/19 17:22 62 18 97 05/04/19 17:00 62 16 173/57 (95) 100 05/04/19 16:23 97.5 71 26 167/61 (96) 99 Intake and Output 05/04/19 05/05/19 19:00 07:00 Intake Total 2854.0000 ml Output Total 2100 ml 680 ml Balance 754.0000 ml -680 ml Intake IV Total 854.0000 ml Hemodialysis 2000 ml Output Urine Total 100 ml 680 ml Hemodialysis UF 2000 ml # Voids 2 # Bowel Movements 5 Laboratory Tests 05/05/19 07:06: White Blood Count 4.1L, Red Blood Count 4.31, Hemoglobin 13.5, Hematocrit 41.1, Mean Corpuscular Volume 95, Mean Corpuscular Hemoglobin 31.4H, Mean Corpuscular Hemoglobin Concent 32.9, Red Cell Distribution Width 16.7H, Platelet Count 94L, Mean Platelet Volume 8.1, Neutrophils (%) (Auto) , Lymphocytes (%) (Auto) , Monocytes (%) (Auto) , Eosinophils (%) (Auto) , Basophils (%) (Auto) , Differential Total Cells Counted 100, Neutrophils % (Manual) 71, Lymphocytes % ( Manual) 10L, Monocytes % (Manual) 9, Eosinophils % (Manual) 10H, Basophils % ( Manual) 0, Band Neutrophils 0, Platelet Estimate DecreasedL, Platelet Morphology Normal, Anisocytosis 1+, Sodium Level 141, Potassium Level 4.2, Chloride Level 101, Carbon Dioxide Level 26, Anion Gap 14, Blood Urea Nitrogen 18, Creatinine 4.9H, Estimat Glomerular Filtration Rate 9.1, Glucose Level 100, Calcium Level 9.8, Total Bilirubin 0.8, Aspartate Amino Transf (AST/SGOT) 26, Alanine Aminotransferase (ALT/SGPT) 16, Alkaline Phosphatase 131H, Total Protein 7.1, Albumin 3.2L, Globulin 3.9, Albumin/Globulin Ratio 0.8L Height (Feet): 5 Height (Inches): 4.00 Weight (Pounds): 185 General Appearance: no apparent distress, alert Neck: supple Cardiovascular: normal rate, regular rhythm Respiratory/Chest: lungs clear, normal breath sounds Abdomen: non tender, soft Neurologic: alert Juan Carlos Ornelas M.D. May 05, 2019 16:23
[2019-05-05] MEDS: LORazepam Inj 2mg/ml 1ml IV PRN ×2 (17:49→21:56)
--- NOTE | 2019-05-05 19:26 | NUR ---
HAND-OFF: Report given to CHEPE Munoz.
--- NOTE | 2019-05-05 19:30 | NUR ---
NURSE NOTES: Received patient from [place]. Patient in bed, on 2L NC, no signs of respiratory distress. Hernandez catheter intact. Bed in low position, locked, bed alarm on, call light within reach.
[2019-05-05] MEDS ORDERED: Atorvastatin 20mg tab ORAL SCH (21:00)
[2019-05-05] MEDS: Dextrose 10% 1,000 ML IV SCH (21:13)
[2019-05-06] VITALS: BP 163/71
[2019-05-06] MEDS: LORazepam Inj 2mg/ml 1ml IV PRN ×2 (02:18→22:34)
--- NOTE | 2019-05-06 03:45 | Progress Note ---
DATE: 05/05/2019 SUBJECTIVE: The patient is confused, disoriented, has episodes of agitation, poor insight, poor memory. Not able to be engaged. The patient is on soft restraints. MENTAL STATUS EXAMINATION: Alert and oriented times self and place. Mood is anxious. Affect is flat. Thought process disorganized. Thought content, no suicidal or homicidal ideation. Cognition is impaired. Insight and judgment are impaired. ASSESSMENT: 1. Schizophrenia disorder. 2. Cognitive impairment. PLAN: 1. Continue the current psychotropic medications 2. Discontinue risperidone. Continue the soft restraints. 3. Recommend hospice/palliative care. Blanka Beckett M.D. DR: IGGY JOB#: [id number] CC: VIKAS
[2019-05-06 04:00] VITALS: BP 158/73
[2019-05-06] MEDS: HydrALAZINE 50mg tab ORAL SCH ×3 (05:28→21:50)
[2019-05-06] MEDS: Piperacillin/Tazobactam 2.25 GM in D5W 55 ML IV SCH ×2 (05:28→14:13)
--- NOTE | 2019-05-06 07:30 | NUR ---
NURSE NOTES: RECEIVED REPORT FROM CHEPE MCQUEEN. PATIENT ASLEEP IN BED. NO S/SX OF PAIN OR DISCOMFORT. BREATHING IS EVEN AND UNLABORED ON 2L O2 VIA NC- NO S/SX OF DISTRESS AT THIS TIME. PADDED SIDERAILS X 2. BED LOCKED AND IN LOWEST POSITION. CALL LIGHT IN REACH. WILL CONTINUE TO MONITOR. Addendum: 05/06/19 at 1059 by Rosa Mccoy RN PADDED SIDERAILS X 3
[2019-05-06 08:00] VITALS: BP 186/86
[2019-05-06] MEDS: Pantoprazole Inj IVP SCH (08:24)
[2019-05-06] MEDS: Aspirin EC 81mg tab ORAL SCH (08:24)
--- NOTE | 2019-05-06 09:33 | NUR ---
RD ASSESSMENT & RECOMMENDATIONS SEE CARE ACTIVITY FOR COMPLETE ASSESSMENT DAILY ESTIMATED NEEDS: Needs based on ESRD on HD, wound 62kg abw 25-30 kcals/kg 7108-1554 total kcals 1.25-1.8 g protein/kg 78-112 g total protein Fluid per MD, on HD NUTRITION DIAGNOSIS: * Increased protein needs r/t renal dysfunction, wound healing as evidenced by ESRD dx on HD, w/ sacral and L foot DTPI. (CURRENT DIET:CCHO MED, mech soft chopped, NTL) PO DIET RECOMMENDATIONS--->>> RENAL/ texture per [employer] ADDITIONAL RECOMMENDATIONS: * RECALIBRATE BED SCALE w/ added P200 mattress * Monitor PO intake, need for snacks/ supplements -> add NEPRO qdaily (20g pro) Orders for haldol, monitor for alertness @mealtimes * Hypoglycemics as needed HgA1C for eval * Wound healing: Woody 1pkt BID as tolerated, Nephrovite x 1 .
--- NOTE | 2019-05-06 10:00 | NUR ---
NURSE NOTES: CURRENT IV SITE REMOVED AFTER IT WAS NOTED TO BE INFILTRATED. ATTEMPTED TO RE-INSERT TWICE, BUT PATIENT RESIDENT BOTH TIMES, STATING SHE WANTED TO SLEEP FIRST. EXPLAINED IT WAS NECESSARY TO INSERT A LINE FOR HER MEDICATIONS, BUT STILL REFUSED AND INSISTED SHE BE LEFT ALONE TO SLEEP.
--- NOTE | 2019-05-06 10:00 | NUR ---
CASE MANAGEMENT:REVIEW 05/06/19 SI: ACUTE RESPIRATORY FAILURE BILATERAL PNEUMONIA. SEPSIS. ESRD 96.8 80 186/86 97% ON 2L/NC IS: IV DOXYCYCLINE Q12 IV ZOSYN Q8HRS IV KEPPRA Q12 IV PROTONIX QD HYDRALAZINE PO Q8HRS SYNTHROID PO QD ASA PO QD PROCARDIA XL PO QD RISPERDAL PO QHS : TELEMETRY DCP: FROM [facility] PLAN: DOWNGRADE TO MED/SURG
--- NOTE | 2019-05-06 10:05 | NUR ---
DISCHARGE PLANNING DISCHARGE DISCUSSED WITH DR WATSON NOT READY FOR DISCHARGE BUT OK FOR LOWER LEVEL OF CARE ORDER RECEIVED AND ENTERED TO DOWNGRADE TO MED/SURG
--- NOTE | 2019-05-06 11:00 | NUR ---
NURSE NOTES: SIMON, DIALYSIS NURSE, WILL BE HERE BETWEEN [phone].
[2019-05-06 12:00] VITALS: BP 161/62
--- NOTE | 2019-05-06 12:04 | Nephrology Progress Note ---
Assessment/Plan Problem List: (1) ESRD (end stage renal disease) on dialysis (2) CHF (congestive heart failure) (3) Fluid overload (4) Schizoaffective disorder, bipolar type (5) Diabetes mellitus, type II Assessment Admitted for respiratory distress and CHF and volume overload Unknown date of her last dialysis Conditions: (1) ESRD (end stage renal disease) on dialysis (2) Altered level of consciousness / Encephalopathy metabolic (3) Schizoaffective disorder, bipolar type (4) h/o Hypothyroidism (5) Anemia in chronic renal disease Also: - Cellulitis both LE - End-stage renal disease, on hemodialysis. fistula right arm - HTN / Pulmonary HTN - Diabetes type 2. Others - Morbid obesity. - H/O Colon Cancer - H/O Hep C - H/O Depression and Bipolar disease - Psych disease uncoaporative --Bilateral leg numbness --diabetic neuropathy --L5-S1 disc protrusion Plan And is now off BiPAP and on monitor bed She is lethargic Will change Protonix and Keppra to p.o. Her next dialysis is tomorrow May 05 will be done today on D10 since the blood sugar is low and patient on continuous BiPAP Was dialyzed on May 01 and 4 L was removed, due for dialysis today May 03 To recheck the chest x-ray Blood pressure and blood sugar under control Per orders Subjective ROS Limited/Unobtainable: No Constitutional: Reports: malaise, weakness Objective Objective Last 24 Hour Vital Signs Date Time Temp Pulse Resp B/P (MAP) Pulse Ox O2 Delivery O2 Flow Rate FiO2 05/06/19 09:00 80 186/86 05/06/19 09:00 Nasal Cannula 2.0 05/06/19 08:00 62 05/06/19 08:00 2.0 05/06/19 08:00 96.8 80 19 186/86 (119) 97 05/06/19 05:28 158/73 05/06/19 04:00 96.8 65 16 158/73 (101) 94 05/06/19 04:00 2.0 05/06/19 04:00 66 05/06/19 00:00 97.0 65 16 163/71 (101) 96 05/06/19 00:00 66 05/06/19 00:00 2.0 05/05/19 21:11 152/81 05/05/19 21:00 Nasal Cannula 2.0 05/05/19 20:00 67 05/05/19 20:00 97.2 68 16 152/81 (104) 98 05/05/19 20:00 2.0 05/05/19 19:40 94 Nasal Cannula 2.0 28 05/05/19 16:00 60 05/05/19 16:00 1.0 50 05/05/19 16:00 97.2 61 18 145/53 (83) 94 05/05/19 13:50 104/42 Intake and Output 05/05/19 05/06/19 19:00 07:00 Intake Total 140 ml Output Total 900 ml 300 ml Balance -760 ml -300 ml Intake Oral 140 ml Output Urine Total 900 ml 300 ml # Voids 3 Current Medications Medications (Trade) Dose Ordered Sig/Gabriele Route PRN Reason Start Time Stop Time Status Last Admin Dose Admin Aspirin (Ecotrin) 81 mg DAILY ORAL 05/05/19 09:00 06/16/19 09:59 05/06/19 08:24 Atorvastatin Calcium (Lipitor) 20 mg BEDTIME ORAL 05/05/19 21:00 06/01/19 20:59 05/05/19 21:11 Dextrose 1,000 ml @ 30 mls/hr Q24H IV 05/04/19 23:00 06/02/19 08:59 05/05/19 21:13 Dextrose (Dextrose 50%) 25 ml Q30M PRN IV Hypoglycemia 05/04/19 23:15 06/01/19 03:44 Dextrose (Dextrose 50%) 50 ml Q30M PRN IV Hypoglycemia 05/04/19 23:15 06/01/19 03:44 Doxycycline Hyclate 100 mg/ Dextrose 100 ml @ 100 mls/hr Q12HR IV 05/05/19 09:00 05/10/19 08:59 05/06/19 08:25 Haloperidol Lactate (Haldol) 5 mg Q6H PRN IM Agitation 05/04/19 23:00 06/16/19 16:59 05/05/19 14:27 Hydralazine HCl (Apresoline) 10 mg Q4H PRN IV SBP > 160 05/05/19 11:00 06/04/19 10:59 Hydralazine HCl (Apresoline) 10 mg Q6H PRN IV For High Blood Pressure 05/04/19 23:30 06/01/19 05:29 05/05/19 09:04 Hydralazine HCl (Apresoline) 50 mg Q8HR ORAL 05/05/19 06:00 06/01/19 09:59 05/06/19 05:28 Levetiracetam 100 ml @ 400 mls/hr Q12HR IVPB 05/05/19 09:00 06/01/19 20:59 05/05/19 20:18 Levothyroxine Sodium (Synthroid) 100 mcg DAILY@0630 ORAL 05/05/19 06:30 06/02/19 06:29 05/06/19 05:31 Lorazepam (Ativan 2mg/ml 1ml) 2 mg Q4H PRN IV For Anxiety 05/05/19 16:15 05/12/19 16:14 05/06/19 02:18 Nifedipine (Procardia XL) 90 mg DAILY ORAL 05/05/19 11:00 06/04/19 10:59 05/05/19 11:12 Pantoprazole (Protonix) 40 mg DAILY IVP 05/05/19 09:00 06/01/19 08:59 05/06/19 08:24 Piperacillin Sod/ Tazobactam Sod 2.25 gm/Dextrose 55 ml @ 110 mls/hr Q8HR IV 05/05/19 06:00 05/09/19 21:59 05/06/19 05:28 Risperidone (RisperDAL) 4 mg BEDTIME ORAL 05/05/19 21:00 06/16/19 20:59 05/05/19 21:11 Vancomycin HCl (Vanco rx to dose) 1 ea DAILY PRN MISC Per rx protocol 05/05/19 09:00 06/01/19 03:14 Laboratory Tests 05/06/19 04:08: Random Vancomycin Level 18.1 Height (Feet): 5 Height (Inches): 4.00 Weight (Pounds): 196 General Appearance: no apparent distress, lethargic Respiratory/Chest: decreased breath sounds Abdomen: soft Objective No change Eamon Solis MD May 06, 2019 12:04
--- NOTE | 2019-05-06 12:52 | Surgery Progress Note ---
Surgery Progress Note Subjective Additional Comments improving comfortable no n/v/f/c labs noted downgraded Objective Last 24 Hour Vital Signs Date Time Temp Pulse Resp B/P (MAP) Pulse Ox O2 Delivery O2 Flow Rate FiO2 05/06/19 12:00 98.1 73 18 161/62 (95) 73 05/06/19 12:00 66 05/06/19 12:00 2.0 05/06/19 09:00 80 186/86 05/06/19 09:00 Nasal Cannula 2.0 05/06/19 08:00 62 05/06/19 08:00 2.0 05/06/19 08:00 96.8 80 19 186/86 (119) 97 05/06/19 05:28 158/73 05/06/19 04:00 96.8 65 16 158/73 (101) 94 05/06/19 04:00 2.0 05/06/19 04:00 66 05/06/19 00:00 97.0 65 16 163/71 (101) 96 05/06/19 00:00 66 05/06/19 00:00 2.0 05/05/19 21:11 152/81 05/05/19 21:00 Nasal Cannula 2.0 05/05/19 20:00 67 05/05/19 20:00 97.2 68 16 152/81 (104) 98 05/05/19 20:00 2.0 05/05/19 19:40 94 Nasal Cannula 2.0 28 05/05/19 16:00 60 05/05/19 16:00 1.0 50 05/05/19 16:00 97.2 61 18 145/53 (83) 94 05/05/19 13:50 104/42 I&O Intake and Output 05/05/19 05/06/19 19:00 07:00 Intake Total 140 ml Output Total 900 ml 300 ml Balance -760 ml -300 ml Intake Oral 140 ml Output Urine Total 900 ml 300 ml # Voids 3 Cardiovascular: RSR Respiratory: clear Abdomen: non-tender, present bowel sounds Extremities: no edema, no tenderness, no cyanosis, other Laboratory Tests Test 05/06/19 04:08 Random Vancomycin Level 18.1 ug/mL Plan Problems: (1) Fluid overload Assessment & Plan: Patient with fluid overload BNP elevated pending cardiology input Likely respiratory component from this as well explaining URI Diurese Trend labs Pulmonary vascular congestion suspected with prominent pulmonary vascularity and interstitial densities with cardiomegaly. Costophrenic angles are well- visualized. Bones may be slightly osteopenic. Aorta is calcified. IMPRESSION: Suspected CHF (2) Lower extremity cellulitis Assessment & Plan: Patient with right TMA prior wound postoperative care had been provided for significant period time as it was improving. Some wound dehiscence identified. Mild cellulitis around the wound site. Antibiotics per infectious disease We will monitor closely over the next 24 hours if further surgical dimension necessary Furthermore identified to have a sacral deep tissue injury upon admission area of erythema 3 cm x 3 cm with superficial epidermal skin loss no dermal opening will monitor closely turn every 2 hours local care with skin protectant and foam dressing Thank you will follow with recommendations (3) Foot ulcer due to secondary DM Assessment & Plan: s/p tma r FINDINGS: Bones/joints: Status post transmetatarsal amputation. No acute fracture or dislocation seen in the hindfoot or midfoot. Incidental note of small plantar calcaneal bony spur and small adjacent enthesophyte. Soft tissues: Unremarkable. No radiopaque foreign body. Vasculature: Scattered vascular calcifications throughout the foot and ankle. IMPRESSION: 1. No acute findings. 2. Status post transmetatarsal amputation. Vic Wise May 06, 2019 12:52
--- NOTE | 2019-05-06 12:55 | NUR ---
NURSE NOTES: S/W CATHERINE IN PHARMACY TO REQUEST A ONE TIME ORAL DOSE OF KEPPRA PRESCRIBED. PATIENT DID NOT RECEIVE PRESCRIBED AM DOSE DUE TO LACK OF IV SITE. PER CATHERINE, OKAY TO GIVE ONE-TIME DOSE. PLACED CALL TO DR. WINTERS AT 1253 TO INFORM HIM THAT PATIENT DID NOT RECEIVE AM DOSE OF KEPPRA PRESCRIBED, AND ASK IF IT WOULD BE OKAY FOR PATIENT TO RECEIVE ONE-TIME ORAL DOSE SINCE NEXT SCHEDULED DOSE IS NOT UNTIL 2100. AWAITING FOR CALL BACK
--- NOTE | 2019-05-06 13:39 | Pulmonolgy Critical Care Note ---
Critical Care - Asmt/Plan Assessment/Plan: Pulmonary Critical Medicine Progress Note HPI Patient is a 57 year-old female with Past Medical History of ESRD on HD (MWF right upper extremity graft), Obesity, Schizophrenia, Bipolar Disorder, Diabetes , Hypertension, Hyperlipidemia, Chronic anemia. Admitted from SNF with subjective fever, dry cough, redness and tenderness at site of right TMA. Noted to have worsening respiratory distress, improved on NIPPV. Patient not able to provide history Now on floor, less SOB, ABG noted LE Cellulitis on Rx Allergies: No Known Allergies Past Medical History: ESRD on HD (MWF right upper extremity graft), Obesity, Schizophrenia, Bipolar Disorder, Diabetes, Hypertension, Hyperlipidemia, Hypothyroidism, Chronic anemia Physical Exam Vital signs noted General Appearance: awake, chronically ill appearing HEENT: atraumatic, anicteric Neck: normal alignment, supple Respiratory/Chest: lungs clear, normal breath sounds, no respiratory distress, no accessory muscle use Cardiovascular/Chest: normal rate, regular rhythm Abdomen: non tender, soft Extremities: non-tender, normal inspection, no edema, LE cellulitis Neurologic: 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 grossly normal Laboratory Tests Noted Assessment/Plan: 57 year-old with history of ESRD on HD MWF through right upper extremity graft, obesity, schizophrenia, bipolar disorder, diabetes, hypertension, hyperlipidemia , chronic anemia who presented to the hospital with fever and cough #Acute hypoxic and hypercarbic respiratory failure, improved #Suspected gram negative pneumonia (HCAP) #Bilateral infiltrates on CXR, pneumonia vs volume overload -AB per ID -HD per Renal #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 -Antibiotics per ID -wound care consulted #ESRD - renal following #Acute metabolic encephalopathy -supportive care -fall and aspiration precautions #Schizophrenia and bipolar -psychiatric following #Hypertensive urgency -Hydralazine, Nifedipine #DM type 2 -ISS #Epilepsy -Continue Keppra #Hypothyroidism -continue levothyroxine CXR: Interstitial infiltrates cw volume overload Critical Care - Objective Last 24 Hour Vital Signs Date Time Temp Pulse Resp B/P (MAP) Pulse Ox O2 Delivery O2 Flow Rate FiO2 05/06/19 12:00 98.1 73 18 161/62 (95) 73 05/06/19 12:00 66 05/06/19 12:00 2.0 05/06/19 09:00 80 186/86 05/06/19 09:00 Nasal Cannula 2.0 05/06/19 08:00 62 3/17/20 08:00 2.0 05/06/19 08:00 96.8 80 19 186/86 (119) 97 05/06/19 05:28 158/73 05/06/19 04:00 96.8 65 16 158/73 (101) 94 05/06/19 04:00 2.0 05/06/19 04:00 66 05/06/19 00:00 97.0 65 16 163/71 (101) 96 05/06/19 00:00 66 05/06/19 00:00 2.0 05/05/19 21:11 152/81 05/05/19 21:00 Nasal Cannula 2.0 05/05/19 20:00 67 05/05/19 20:00 97.2 68 16 152/81 (104) 98 05/05/19 20:00 2.0 05/05/19 19:40 94 Nasal Cannula 2.0 28 05/05/19 16:00 60 05/05/19 16:00 1.0 50 05/05/19 16:00 97.2 61 18 145/53 (83) 94 05/05/19 13:50 104/42 Micro: Microbiology Date/Time Source Procedure Growth Status 05/04/19 03:15 Sputum Expectorated Gram Stain - Final Complete 05/04/19 03:15 Sputum Expectorated Sputum Culture - Final NORMAL UPPER RESPIRATORY MOE PRESENT Complete Accucheck: 88 Critical Care - Subjective ROS Limited/Unobtainable: No Condition: improving FI02: 28 Vent Support Mode: BiLevel Sputum Amount: None I&O: Intake and Output 05/05/19 05/06/19 19:00 07:00 Intake Total 140 ml Output Total 900 ml 300 ml Balance -760 ml -300 ml Intake Oral 140 ml Output Urine Total 900 ml 300 ml # Voids 3 Alejo Hernandez MD May 06, 2019 13:39
[2019-05-06] MEDS ORDERED: Vancomycin 750mg/D5W 275ml IVPB SCH ×2 (14:00)
--- NOTE | 2019-05-06 15:27 | NUR ---
*-* INSURANCE *-* ALL CLINICALS AND REVIEWS HAVE BEEN FAXED TO: [employer] Ref# [id number] # [phone] fax#[phone]
--- NOTE | 2019-05-06 15:33 | General Progress Note ---
Assessment/Plan Status: stable Assessment/Plan: 57 year-old with history of ESRD on HD MWF through right upper extremity graft, obesity, schizophrenia, bipolar disorder, diabetes, hypertension, hyperlipidemia , chronic anemia who presented to the hospital with fever and cough #Acute hypoxic and hypercarbic respiratory failure #Suspected gram negative pneumonia (HCAP) #Bilateral infiltrates on CXR -transferred to telemetry (05/03) from ICU. -DNR/DNI -continue supplemental oxygen, titrate down as tolerated. -continue abx per ID -Pulmonology following -Speech therapy. Currently taking PO. -Cultures so far NGTD. #Septic shock - resolved #Hypotension - resolved #Hypertension #Hypertensive urgency - resolved. BP as low as 50's on 05/02. 4L removed on 05/01. s/p dopamine, albumin, midodrine started, then became hypertensive up to SBP 200. -cont nifedipine -hydralazine prn for SBP > 160. -s/p midodrine 10 mg TID -> 5 mg -> off -s/p dopamine, albumin 25 g x1. #S/p right TMA with bilateral LE cellulitis -on IV antibiotics -Surgery following #ESRD #Fluid overload -Nephrology following -Monitor electrolytes -Phosphate binders -HD per Renal #Acute metabolic encephalopathy -will provide supportive care -fall and aspiration precautions -treat underlying acute medical issues #Schizophrenia and bipolar -continue outpatient psychiatric regimen -Psych following -Haldol prn -risperidone qhs. #Hypertensive urgency -Continue hydralazine, Nifedipine #DM type 2 -ISS #HLD -continue ASA -continue statin. #Epilepsy -Continue Keppra #Hypothyroidism -continue levothyroxine #Moderate-severe protein calorie malnutrition -weight measurement -encourage PO intake. Time spent: 36 mins, >50% on counseling and coordination of care. Time of note doesn't reflect time of encounter. Subjective Date patient seen: May 06, 2019 Time patient seen: 15:22 ROS Limited/Unobtainable: Yes Allergies: Coded Allergies: No Known Allergies (Verified , 08/23/06) Subjective Follow up for septic shock, gram negative pneumonia, LE cellulitis No acute events overnight Objective Last 24 Hour Vital Signs Date Time Temp Pulse Resp B/P (MAP) Pulse Ox O2 Delivery O2 Flow Rate FiO2 05/06/19 14:00 161/62 05/06/19 12:00 98.1 73 18 161/62 (95) 73 05/06/19 12:00 66 05/06/19 12:00 2.0 05/06/19 09:00 80 186/86 05/06/19 09:00 Nasal Cannula 2.0 05/06/19 08:00 62 05/06/19 08:00 2.0 05/06/19 08:00 96.8 80 19 186/86 (119) 97 05/06/19 05:28 158/73 05/06/19 04:00 96.8 65 16 158/73 (101) 94 05/06/19 04:00 2.0 05/06/19 04:00 66 05/06/19 00:00 97.0 65 16 163/71 (101) 96 05/06/19 00:00 66 05/06/19 00:00 2.0 05/05/19 21:11 152/81 05/05/19 21:00 Nasal Cannula 2.0 05/05/19 20:00 67 05/05/19 20:00 97.2 68 16 152/81 (104) 98 05/05/19 20:00 2.0 05/05/19 19:40 94 Nasal Cannula 2.0 28 05/05/19 16:00 60 05/05/19 16:00 1.0 50 05/05/19 16:00 97.2 61 18 145/53 (83) 94 Intake and Output 05/05/19 05/06/19 19:00 07:00 Intake Total 140 ml Output Total 900 ml 300 ml Balance -760 ml -300 ml Intake Oral 140 ml Output Urine Total 900 ml 300 ml # Voids 3 Laboratory Tests 05/06/19 04:08: Random Vancomycin Level 18.1 Height (Feet): 5 Height (Inches): 4.00 Weight (Pounds): 196 General Appearance: alert, confused Neck: normal alignment, supple Cardiovascular: normal rate, regular rhythm Respiratory/Chest: lungs clear, normal breath sounds, no respiratory distress Norman Cooper MD May 06, 2019 15:33
[2019-05-06 16:00] VITALS: BP 134/69
--- NOTE | 2019-05-06 16:15 | NUR ---
HAND-OFF: Report given to CHEPE GUADALUPE. PATIENT IN STABLE CONDITION, PATIENT ASLEEP. NO S/SX OF PAIN OR DISCOMFORT. BREATHING EVEN AND UNLABORED ON 2L VIA NASAL CANNULA. BELONGINGS AND IV MEDICATIONS TRANSFERRED WITH PATIENT.
--- NOTE | 2019-05-06 16:27 | NUR ---
NURSE NOTES: Received patient in bed awake. With O2 via nasal cannula at 2LPM. IV line on left index finger g24 with resistance on flushing, tele nurses aware, charge nurse Macie made aware. Wound dressings intact. With bilateral soft wrist restraints in place, pulses palpable. With ecchymosis on bilateral upper extremities. With right upper arm AV shunt for dialysis, scheduled for today with [facility]. Old AV shunt on left upper arm. Hernandez catheter intact, draining yellow colored urine. Belongings accounted for. HOB elevated. Bed locked in lowest position. Call light within reach. Will continue plan of care.
--- NOTE | 2019-05-06 16:58 | Infectious Diseases Prog Note ---
Assessment/Plan Assessment/Plan ASSESSMENT AND PLAN: 1. pneumonia, sepsis, sirs, bilateral leg cellulitis, right foot wound, hypothermia, sob - change to augmentin plus doxycycline x 5 days - patient refusing iv - check final sc, serology, chest x-ray, labs - clinically improved - pulmonary tx/support 2. End-stage renal disease, on hemodialysis. 3. Right TMA with some wound dehiscence. 4. Wound care protocol. 5. ICU care. 6. Waller. 7. End-stage renal disease, on hemodialysis treatment per Renal and Medicine. 8. Right upper extremity graft. 9. Obesity. 10. Schizophrenia and bipolar disease. 11. Diabetes. 12. Hypertension. 13. Hyperlipidemia. 14. Anemia. 15. Blood sugar and blood pressure treatment for diabetes and hypertension per primary care team. 16. Hypothyroidism. 17. Thyroid supplementation. 18. Encephalopathy. 19. Epilepsy. 20. Past medical history noted 21. No known drug allergies. 22. Social history is negative. 23. Family history is noncontributory. 24. MAR is noted. 25. Case was discussed with RN. 26. vre colonization Subjective Constitutional: Reports: fatigue; Denies: fever HEENT: Denies: congestion Respiratory: Reports: productive cough; Denies: shortness of breath Cardiovascular: Denies: chest pain Gastrointestinal/Abdominal: Denies: nausea, vomiting, diarrhea Genitourinary: Denies: dysuria, hematuria, frequency Neurologic: Denies: headache Psychiatric: Denies: depression Skin: Denies: rash Hematologic: Denies: bleeding Musculoskeletal: Denies: pain Allergies: Coded Allergies: No Known Allergies (Verified , 08/23/06) Objective Vital Signs Last 24 Hour Vital Signs Date Time Temp Pulse Resp B/P (MAP) Pulse Ox O2 Delivery O2 Flow Rate FiO2 05/06/19 16:00 2.0 05/06/19 14:00 161/62 05/06/19 12:00 98.1 73 18 161/62 (95) 73 05/06/19 12:00 66 05/06/19 12:00 2.0 05/06/19 09:00 80 186/86 05/06/19 09:00 Nasal Cannula 2.0 05/06/19 08:00 62 05/06/19 08:00 2.0 05/06/19 08:00 96.8 80 19 186/86 (119) 97 05/06/19 05:28 158/73 05/06/19 04:00 96.8 65 16 158/73 (101) 94 05/06/19 04:00 2.0 05/06/19 04:00 66 05/06/19 00:00 97.0 65 16 163/71 (101) 96 05/06/19 00:00 66 05/06/19 00:00 2.0 05/05/19 21:11 152/81 05/05/19 21:00 Nasal Cannula 2.0 05/05/19 20:00 67 05/05/19 20:00 97.2 68 16 152/81 (104) 98 05/05/19 20:00 2.0 05/05/19 19:40 94 Nasal Cannula 2.0 28 Height (Feet): 5 Height (Inches): 4.00 Weight (Pounds): 196 General Appearance: no acute distress HEENT: normocephalic, atraumatic, anicteric, mucous membranes moist Respiratory/Chest: lungs clear, normal breath sounds, no respiratory distress, no accessory muscle use Cardiovascular: normal rate, regular rhythm, no gallop/murmur, no JVD Abdomen: normal bowel sounds, soft, non tender, no organomegaly, non distended Genitourinary: other - + waller - urine slt cloudy Extremities: no cyanosis Skin: no rash Neurologic/Psychiatric: garnisher II-XII grossly normal, alert, responsive Lymphatic: no neck adenopathy Musculoskeletal: no effusion Objective Chest x-ray - 05/04/19 - TECHNIQUE: Frontal view of the chest. COMPARISON: Chest x-rays dated 05/01/19 FINDINGS: Lungs: Pulmonary vascular congestion. Subsegmental atelectasis versus infiltrates in bilateral lung bases. Pleural space: Bilateral mild to moderate layering pleural effusions, greater on the right, worsened compared to the prior exam. Heart: Unremarkable. No cardiomegaly. Mediastinum: Unremarkable. Bones/joints: Unremarkable. Vasculature: Atherosclerotic calcifications within the aortic arch. Tubes, lines and devices: Telemetry leads overlie the thorax. IMPRESSION: 1. Bilateral mild to moderate layering pleural effusions, greater on the right, worsened compared to the prior exam. 2. Pulmonary vascular congestion, not significantly changed. 3. Subsegmental atelectasis versus infiltrates in bilateral lung bases. x-ray - right foot: Procedure: XRAY Foot 2v R EXAM: XR Right Foot, 2 Views CLINICAL HISTORY: INFECT TECHNIQUE: Frontal and lateral views of the right foot. COMPARISON: Right foot x-rays dated 11/11/17 FINDINGS: Bones/joints: Status post transmetatarsal amputation. No acute fracture or dislocation seen in the hindfoot or midfoot. Incidental note of small plantar calcaneal bony spur and small adjacent enthesophyte. Soft tissues: Unremarkable. No radiopaque foreign body. Vasculature: Scattered vascular calcifications throughout the foot and ankle. IMPRESSION: 1. No acute findings. 2. Status post transmetatarsal amputation. If there is clinical concern for osteomyelitis, MRI or nuclear medicine bone scan should be considered. Microbiology Date/Time Source Procedure Growth Status 05/01/19 21:00 Blood Blood Culture - Preliminary NO GROWTH AFTER 4 DAYS Resulted 05/04/19 03:15 Sputum Expectorated Gram Stain - Final Complete 05/04/19 03:15 Sputum Expectorated Sputum Culture - Final NORMAL UPPER RESPIRATORY MOE PRESENT Complete 05/02/19 06:20 Stool Stool Culture - Final NO SALMONELLA,SHIGELLA,OR CAMPYLOBACT... Complete 05/01/19 23:10 Rectum VRE Culture - Final Enterococcus Faecalis - Vre Complete Microbiology Date/Time Source Procedure Growth Status 05/04/19 03:15 Sputum Expectorated Gram Stain - Final Complete 05/04/19 03:15 Sputum Expectorated Sputum Culture - Final NORMAL UPPER RESPIRATORY MOE PRESENT Complete Labs Test 05/04/19 05:19 05/04/19 15:34 05/05/19 07:06 05/06/19 04:08 White Blood Count 4.9 K/UL (4.8-10.8) 4.1 K/UL (4.8-10.8) Red Blood Count 4.39 M/UL (4.20-5.40) 4.31 M/UL (4.20-5.40) Hemoglobin 13.4 G/DL (12.0-16.0) 13.5 G/DL (12.0-16.0) Hematocrit 42.9 % (37.0-47.0) 41.1 % (37.0-47.0) Mean Corpuscular Volume 98 FL (80-99) 95 FL (80-99) Mean Corpuscular Hemoglobin 30.5 PG (27.0-31.0) 31.4 PG (27.0-31.0) Mean Corpuscular Hemoglobin Concent 31.2 G/DL (32.0-36.0) 32.9 G/DL (32.0-36.0) Red Cell Distribution Width 16.6 % (11.6-14.8) 16.7 % (11.6-14.8) Platelet Count 105 K/UL (150-450) 94 K/UL (150-450) Mean Platelet Volume 6.9 FL (6.5-10.1) 8.1 FL (6.5-10.1) Neutrophils (%) (Auto) 65.4 % (45.0-75.0) % (45.0-75.0) Lymphocytes (%) (Auto) 13.9 % (20.0-45.0) % (20.0-45.0) Monocytes (%) (Auto) 9.6 % (1.0-10.0) % (1.0-10.0) Eosinophils (%) (Auto) 10.7 % (0.0-3.0) % (0.0-3.0) Basophils (%) (Auto) 0.4 % (0.0-2.0) % (0.0-2.0) Sodium Level 140 MMOL/L (136-145) 141 MMOL/L (136-145) Potassium Level 4.5 MMOL/L (3.5-5.1) 4.2 MMOL/L (3.5-5.1) Chloride Level 100 MMOL/L (98-107) 101 MMOL/L (98-107) Carbon Dioxide Level 28 MMOL/L (21-32) 26 MMOL/L (21-32) Anion Gap 12 mmol/L (5-15) 14 mmol/L (5-15) Blood Urea Nitrogen 32 mg/dL (7-18) 18 mg/dL (7-18) Creatinine 6.2 MG/DL (0.55-1.30) 4.9 MG/DL (0.55-1.30) Estimat Glomerular Filtration Rate 6.9 mL/min (>60) 9.1 mL/min (>60) Glucose Level 81 MG/DL (74-106) 100 MG/DL (74-106) Calcium Level 9.6 MG/DL (8.5-10.1) 9.8 MG/DL (8.5-10.1) Phosphorus Level 6.3 MG/DL (2.5-4.9) Magnesium Level 2.6 MG/DL (1.8-2.4) Total Bilirubin 0.7 MG/DL (0.2-1.0) 0.8 MG/DL (0.2-1.0) Aspartate Amino Transf (AST/SGOT) 18 U/L (15-37) 26 U/L (15-37) Alanine Aminotransferase (ALT/SGPT) 9 U/L (12-78) 16 U/L (12-78) Alkaline Phosphatase 127 U/L (46-116) 131 U/L (46-116) Total Protein 6.8 G/DL (6.4-8.2) 7.1 G/DL (6.4-8.2) Albumin 3.2 G/DL (3.4-5.0) 3.2 G/DL (3.4-5.0) Globulin 3.6 g/dL 3.9 g/dL Albumin/Globulin Ratio 0.9 (1.0-2.7) 0.8 (1.0-2.7) Random Vancomycin Level 12.1 ug/mL 18.1 ug/mL Arterial Blood pH 7.399 (7.350-7.450) Arterial Blood Partial Pressure CO2 55.1 mmHg (35.0-45.0) Arterial Blood Partial Pressure O2 71.3 mmHg (75.0-100.0) Arterial Blood HCO3 33.3 mmol/L (22.0-26.0) Arterial Blood Oxygen Saturation 93.7 % (95-100) Arterial Blood Base Excess 6.8 (-2-2) Vishal Test Positive Differential Total Cells Counted 100 Neutrophils % (Manual) 71 % (45-75) Lymphocytes % (Manual) 10 % (20-45) Monocytes % (Manual) 9 % (1-10) Eosinophils % (Manual) 10 % (0-3) Basophils % (Manual) 0 % (0-2) Band Neutrophils 0 % (0-8) Platelet Estimate Decreased Platelet Morphology Normal Anisocytosis 1+ Laboratory Tests Test 05/06/19 04:08 Random Vancomycin Level 18.1 ug/mL Current Medications Medications (Trade) Dose Ordered Sig/Gabriele Route PRN Reason Start Time Stop Time Status Last Admin Dose Admin Amoxicillin/ Clavulanate Potassium (Augmentin) 500 mg Q24HRS ORAL 05/06/19 17:00 05/13/19 16:59 Aspirin (Ecotrin) 81 mg DAILY ORAL 05/07/19 09:00 06/16/19 09:59 Atorvastatin Calcium (Lipitor) 20 mg BEDTIME ORAL 05/06/19 21:00 06/01/19 20:59 Dextrose 1,000 ml @ 30 mls/hr Q24H IV 05/06/19 17:30 06/02/19 17:29 Dextrose (Dextrose 50%) 25 ml Q30M PRN IV Hypoglycemia 05/06/19 16:45 06/01/19 03:44 Dextrose (Dextrose 50%) 50 ml Q30M PRN IV Hypoglycemia 05/06/19 16:45 06/01/19 03:44 Doxycycline Monohydrate (Doxycycline Monohydrate) 100 mg EVERY 12 HOURS ORAL 05/06/19 21:00 05/13/19 20:59 Haloperidol Lactate (Haldol) 5 mg Q6H PRN IM Agitation 05/06/19 17:00 06/16/19 16:59 Hydralazine HCl (Apresoline) 50 mg Q8HR ORAL 05/06/19 22:00 06/01/19 09:59 Levetiracetam (Keppra) 500 mg Q12HR ORAL 05/06/19 21:00 06/20/19 20:59 Levothyroxine Sodium (Synthroid) 100 mcg DAILY@0630 ORAL 05/07/19 06:30 06/02/19 06:29 Lorazepam (Ativan 2mg/ml 1ml) 2 mg Q4H PRN IV For Anxiety 05/06/19 17:00 05/12/19 16:59 Nifedipine (Procardia XL) 90 mg DAILY ORAL 05/07/19 09:00 06/04/19 10:59 Pantoprazole (Protonix) 40 mg EVERY 12 HOURS ORAL 05/06/19 21:00 06/05/19 20:59 Risperidone (RisperDAL) 4 mg BEDTIME ORAL 05/06/19 21:00 06/16/19 20:59 Nehal Nolasco MD May 06, 2019 16:58
[2019-05-06] MEDS: Dextrose 10% 1,000 ML IV SCH (18:52)
--- NOTE | 2019-05-06 19:29 | NUR ---
HAND-OFF: Report given to Octavio. With dialysis ongoing.
--- NOTE | 2019-05-06 19:34 | NUR ---
NURSE NOTES: Dialysis nurse at bedside, HD ongoing, patient tolerating well.
[2019-05-06 20:00] VITALS: BP 124/64
--- NOTE | 2019-05-06 20:10 | NUR ---
PT RECEIVED HD VIA RIGHT AV FISTULA by trung smith from 1709 to 2009 strong thrill and bruit,tolerated well,uf 3000ml endorsed to keara
[2019-05-06] MEDS: Atorvastatin 20mg tab ORAL SCH (20:40)
[2019-05-06] MEDS: Doxycycline Monohydrate 100mg ORAL SCH (20:41)
[2019-05-06] MEDS ORDERED: Piperacillin/Tazobactam 2.25 GM in D5W 55 ML IV SCH (22:00)
[2019-05-07] VITALS: BP 159/69
[2019-05-07 04:00] VITALS: BP 156/72
[2019-05-07] MEDS: HydrALAZINE 50mg tab ORAL SCH ×4 (05:43→21:09)
[2019-05-07 05:50] LABS: HEMATOCRIT 45.4 % (37.0-47.0); HEMOGLOBIN 14.5 G/DL (12.0-16.0); MEAN CORPUSCULAR VOLUME 97 FL (80-99); PLATELET COUNT 83 K/UL (150-450); RED BLOOD COUNT 4.66 M/UL (4.20-5.40); RED CELL DISTRIBUTION WIDTH 17.2 % (11.6-14.8); WHITE BLOOD COUNT 4.6 K/UL (4.8-10.8)
[2019-05-07 06:09] LABS: ALANINE AMINOTRANSFERASE 9 U/L (12-78); ALBUMIN 3.1 G/DL (3.4-5.0); ALBUMIN/GLOBULIN RATIO 0.8 (1.0-2.7); ALKALINE PHOSPHATASE 137 U/L (46-116); ANION GAP 12 mmol/L (5-15); ASPARTATE AMINO TRANSFERASE 21 U/L (15-37); BILIRUBIN,TOTAL 0.7 MG/DL (0.2-1.0); BLOOD UREA NITROGEN 18 mg/dL (7-18); CARBON DIOXIDE 32 MMOL/L (21-32); CHLORIDE 102 MMOL/L (98-107); CREATININE 4.9 MG/DL (0.55-1.30); POTASSIUM 4.1 MMOL/L (3.5-5.1); SODIUM 145 MMOL/L (136-145)
--- NOTE | 2019-05-07 07:38 | NUR ---
HAND-OFF: Report given to CHEPE Armenta.
--- NOTE | 2019-05-07 07:48 | NUR ---
NURSE NOTES: pt. in bed having breakfast. pt talking and is not complaining of pain at this time. Pt is using N/c, and was educated to keep it on. Pt has bilateral restrains. Pt currently has waller for retention, urine yellowish in color no smell . Bed is locked and in lowest position, bed alarm on, call light within reach. Will continue to monitor pt.
[2019-05-07 08:01] VITALS: BP 208/88
[2019-05-07] MEDS: Aspirin EC 81mg tab ORAL SCH (08:19)
[2019-05-07] MEDS: Doxycycline Monohydrate 100mg ORAL SCH ×2 (08:19→21:09)
--- NOTE | 2019-05-07 10:43 | NUR ---
NURSE NOTES: pt original B/P @ 820 208/88,; right now bp is 188/77 and hydralazine 25mg po PRN can be given. Consulted with pharmacist Villa and she said it is ok to give PRN Hydralazine; even when Nifedipine 90mg po was given 2hrs ago because this med is extended release.
[2019-05-07] MEDS: HydrALAZINE 25mg tab ORAL PRN (10:54)
--- NOTE | 2019-05-07 11:16 | Pulmonolgy Critical Care Note ---
Critical Care - Asmt/Plan Assessment/Plan: Pulmonary Critical Medicine Progress Note HPI Patient is a 57 year-old female with Past Medical History of ESRD on HD (MWF right upper extremity graft), Obesity, Schizophrenia, Bipolar Disorder, Diabetes , Hypertension, Hyperlipidemia, Chronic anemia. Admitted from SNF with subjective fever, dry cough, redness and tenderness at site of right TMA. Noted to have worsening respiratory distress, improved on NIPPV. Patient not able to provide history Now on floor, less SOB, ABG noted LE Cellulitis on Rx Allergies: No Known Allergies Past Medical History: ESRD on HD (MWF right upper extremity graft), Obesity, Schizophrenia, Bipolar Disorder, Diabetes, Hypertension, Hyperlipidemia, Hypothyroidism, Chronic anemia Physical Exam Vital signs noted General Appearance: awake, chronically ill appearing HEENT: atraumatic, anicteric Neck: normal alignment, supple Respiratory/Chest: lungs clear, normal breath sounds, no respiratory distress, no accessory muscle use Cardiovascular/Chest: normal rate, regular rhythm Abdomen: non tender, soft Extremities: non-tender, normal inspection, no edema, LE cellulitis Neurologic: supervisor pumping II-XII grossly normal Laboratory Tests Noted Assessment/Plan: 57 year-old with history of ESRD on HD MWF through right upper extremity graft, obesity, schizophrenia, bipolar disorder, diabetes, hypertension, hyperlipidemia , chronic anemia who presented to the hospital with fever and cough #Acute hypoxic and hypercarbic respiratory failure, improved #Suspected gram negative pneumonia (HCAP) #Bilateral infiltrates on CXR, pneumonia vs volume overload -AB per ID -HD per Renal #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 -Antibiotics per ID -wound care consulted #ESRD - renal following #Acute metabolic encephalopathy -supportive care -fall and aspiration precautions #Schizophrenia and bipolar -psychiatric following #Hypertensive urgency -Hydralazine, Nifedipine #DM type 2 -ISS #Epilepsy -Continue Keppra #Hypothyroidism -continue levothyroxine CXR: Interstitial infiltrates cw volume overload Critical Care - Objective Last 24 Hour Vital Signs Date Time Temp Pulse Resp B/P (MAP) Pulse Ox O2 Delivery O2 Flow Rate FiO2 05/07/19 10:54 188/77 05/07/19 08:20 67 208/88 05/07/19 08:01 97.9 67 20 208/88 (128) 97 05/07/19 05:43 156/72 05/07/19 04:00 98.5 68 20 156/72 (100) 90 3/18/20 00:00 97.7 72 20 159/69 (99) 94 05/06/19 21:50 124/64 05/06/19 20:00 97.3 75 20 124/64 (84) 94 05/06/19 19:55 Nasal Cannula 2.0 05/06/19 19:00 95 Nasal Cannula 2.0 28 05/06/19 16:00 97.8 67 18 134/69 (90) 94 05/06/19 16:00 2.0 05/06/19 14:00 161/62 05/06/19 12:00 98.1 73 18 161/62 (95) 73 05/06/19 12:00 66 05/06/19 12:00 2.0 Accucheck: 72 Critical Care - Subjective ROS Limited/Unobtainable: No FI02: 28 Vent Support Mode: BiLevel Sputum Amount: None I&O: Intake and Output 05/06/19 05/07/19 19:00 07:00 Output Total 3400 ml Balance -3400 ml Output Urine Total 400 ml Hemodialysis UF 3000 ml Alejo Hernandez MD May 07, 2019 11:16
[2019-05-07 12:00] VITALS: BP 193/78
--- NOTE | 2019-05-07 12:19 | NUR ---
JOINTER SUBMARINE CABLE NOTE CHIKIS received a call from pt's aunt, Cindy Peguero [phone] and confirmed she is the primary decision maker for pt and also verified the code status- DNR&DNI. Per Cindy, there is no POA document but she has been "making the decision for 20 years and nobody asked for it". Signed: 05/07/19 at 1221 by MAURA DIOP <Co-Signature Required>
--- NOTE | 2019-05-07 12:25 | General Progress Note ---
Assessment/Plan Status: stable Assessment/Plan: 57 year-old with history of ESRD on HD MWF through right upper extremity graft, obesity, schizophrenia, bipolar disorder, diabetes, hypertension, hyperlipidemia , chronic anemia who presented to the hospital with fever and cough #Acute hypoxic and hypercarbic respiratory failure #Suspected gram negative pneumonia (HCAP) #Bilateral infiltrates on CXR -transferred to telemetry (05/03) from ICU. -DNR/DNI -continue supplemental oxygen, titrate down as tolerated. -continue abx per ID recs, now on PO meds -Pulmonology following -Speech therapy. Currently taking PO. -Cultures so far NGTD. #Septic shock - resolved #Hypotension - resolved #Hypertension #Hypertensive urgency - resolved. -cont nifedipine -added clonidine -hydralazine prn for SBP > 160. -s/p midodrine 10 mg TID -> 5 mg -> off -s/p dopamine, albumin 25 g x1. #S/p right TMA with bilateral LE cellulitis -on abx -[place] x 1 ordered for pain -Surgery following #ESRD #Fluid overload -Nephrology following -Monitor electrolytes -Phosphate binders -HD per Renal #Acute metabolic encephalopathy -will provide supportive care -fall and aspiration precautions -treat underlying acute medical issues #Schizophrenia and bipolar -continue outpatient psychiatric regimen -Psych following -Haldol prn -risperidone qhs. #Hypertensive urgency -Continue hydralazine, Nifedipine #DM type 2 -ISS #HLD -continue ASA -continue statin. #Epilepsy -Continue Keppra #Hypothyroidism -continue levothyroxine #Moderate-severe protein calorie malnutrition -weight measurement -encourage PO intake. Time spent: 36 mins, >50% on counseling and coordination of care. Time of note doesn't reflect time of encounter. Subjective Date patient seen: May 07, 2019 Time patient seen: 09:41 ROS Limited/Unobtainable: Yes Allergies: Coded Allergies: No Known Allergies (Verified , 08/23/06) Subjective Follow up for septic shock, gram negative pneumonia, LE cellulitis BP elevated this morning despite PO hydralazine Objective Last 24 Hour Vital Signs Date Time Temp Pulse Resp B/P (MAP) Pulse Ox O2 Delivery O2 Flow Rate FiO2 05/07/19 10:54 188/77 05/07/19 09:00 Nasal Cannula 2.0 05/07/19 08:20 67 208/88 05/07/19 08:01 97.9 67 20 208/88 (128) 97 05/07/19 05:43 156/72 05/07/19 04:00 98.5 68 20 156/72 (100) 90 05/07/19 00:00 97.7 72 20 159/69 (99) 94 05/06/19 21:50 124/64 05/06/19 20:00 97.3 75 20 124/64 (84) 94 05/06/19 19:55 Nasal Cannula 2.0 05/06/19 19:00 95 Nasal Cannula 2.0 28 05/06/19 16:00 97.8 67 18 134/69 (90) 94 05/06/19 16:00 2.0 05/06/19 14:00 161/62 Intake and Output 05/06/19 05/07/19 19:00 07:00 Output Total 3400 ml Balance -3400 ml Output Urine Total 400 ml Hemodialysis UF 3000 ml Laboratory Tests 05/07/19 04:42: White Blood Count 4.6L, Red Blood Count 4.66, Hemoglobin 14.5, Hematocrit 45.4, Mean Corpuscular Volume 97, Mean Corpuscular Hemoglobin 31.1H, Mean Corpuscular Hemoglobin Concent 32.0, Red Cell Distribution Width 17.2H, Platelet Count 83L, Mean Platelet Volume 8.6, Neutrophils (%) (Auto) , Lymphocytes (%) (Auto) , Monocytes (%) (Auto) , Eosinophils (%) (Auto) , Basophils (%) (Auto) , Differential Total Cells Counted 100, Neutrophils % (Manual) 65, Lymphocytes % ( Manual) 12L, Monocytes % (Manual) 6, Eosinophils % (Manual) 15H, Basophils % ( Manual) 2, Band Neutrophils 0, Platelet Estimate DecreasedL, Platelet Morphology Normal, Anisocytosis 1+, Sodium Level 145, Potassium Level 4.1, Chloride Level 102, Carbon Dioxide Level 32, Anion Gap 12, Blood Urea Nitrogen 18, Creatinine 4.9H, Estimat Glomerular Filtration Rate 9.1, Glucose Level 78, Calcium Level 10.0, Total Bilirubin 0.7, Aspartate Amino Transf (AST/SGOT) 21, Alanine Aminotransferase (ALT/SGPT) 9L, Alkaline Phosphatase 137H, Total Protein 7.2, Albumin 3.1L, Globulin 4.1, Albumin/Globulin Ratio 0.8L Height (Feet): 5 Height (Inches): 4.00 Weight (Pounds): 187 General Appearance: alert, confused Neck: normal alignment, supple Cardiovascular: normal rate, regular rhythm Respiratory/Chest: lungs clear, normal breath sounds Abdomen: non tender, soft Norman Cooper MD May 07, 2019 12:25
[2019-05-07] MEDS ORDERED: HYDROcodone/Acetamin 5/325 tab ORAL SCH (12:30)
--- NOTE | 2019-05-07 13:17 | Surgery Progress Note ---
Surgery Progress Note Subjective Additional Comments improved no n/v/f/c comfortable d/c planning labs reviewed exam stable Objective Last 24 Hour Vital Signs Date Time Temp Pulse Resp B/P (MAP) Pulse Ox O2 Delivery O2 Flow Rate FiO2 05/07/19 13:08 193/78 05/07/19 10:54 188/77 05/07/19 09:00 Nasal Cannula 2.0 05/07/19 08:20 67 208/88 05/07/19 08:01 97.9 67 20 208/88 (128) 97 05/07/19 05:43 156/72 05/07/19 04:00 98.5 68 20 156/72 (100) 90 05/07/19 00:00 97.7 72 20 159/69 (99) 94 05/06/19 21:50 124/64 05/06/19 20:00 97.3 75 20 124/64 (84) 94 05/06/19 19:55 Nasal Cannula 2.0 05/06/19 19:00 95 Nasal Cannula 2.0 28 05/06/19 16:00 97.8 67 18 134/69 (90) 94 05/06/19 16:00 2.0 05/06/19 14:00 161/62 I&O Intake and Output 05/06/19 05/07/19 19:00 07:00 Output Total 3400 ml Balance -3400 ml Output Urine Total 400 ml Hemodialysis UF 3000 ml Dressing: dry Wound: clean Cardiovascular: RSR Respiratory: clear Abdomen: soft, non-tender, present bowel sounds Extremities: no tenderness, no cyanosis, other Laboratory Tests Test 05/07/19 04:42 White Blood Count 4.6 K/UL (4.8-10.8) L Red Blood Count 4.66 M/UL (4.20-5.40) Hemoglobin 14.5 G/DL (12.0-16.0) Hematocrit 45.4 % (37.0-47.0) Mean Corpuscular Volume 97 FL (80-99) Mean Corpuscular Hemoglobin 31.1 PG (27.0-31.0) H Mean Corpuscular Hemoglobin Concent 32.0 G/DL (32.0-36.0) Red Cell Distribution Width 17.2 % (11.6-14.8) H Platelet Count 83 K/UL (150-450) L Mean Platelet Volume 8.6 FL (6.5-10.1) Neutrophils (%) (Auto) % (45.0-75.0) Lymphocytes (%) (Auto) % (20.0-45.0) Monocytes (%) (Auto) % (1.0-10.0) Eosinophils (%) (Auto) % (0.0-3.0) Basophils (%) (Auto) % (0.0-2.0) Differential Total Cells Counted 100 Neutrophils % (Manual) 65 % (45-75) Lymphocytes % (Manual) 12 % (20-45) L Monocytes % (Manual) 6 % (1-10) Eosinophils % (Manual) 15 % (0-3) H Basophils % (Manual) 2 % (0-2) Band Neutrophils 0 % (0-8) Platelet Estimate Decreased L Platelet Morphology Normal Anisocytosis 1+ Sodium Level 145 MMOL/L (136-145) Potassium Level 4.1 MMOL/L (3.5-5.1) Chloride Level 102 MMOL/L (98-107) Carbon Dioxide Level 32 MMOL/L (21-32) Anion Gap 12 mmol/L (5-15) Blood Urea Nitrogen 18 mg/dL (7-18) Creatinine 4.9 MG/DL (0.55-1.30) H Estimat Glomerular Filtration Rate 9.1 mL/min (>60) Glucose Level 78 MG/DL (74-106) Calcium Level 10.0 MG/DL (8.5-10.1) Total Bilirubin 0.7 MG/DL (0.2-1.0) Aspartate Amino Transf (AST/SGOT) 21 U/L (15-37) Alanine Aminotransferase (ALT/SGPT) 9 U/L (12-78) L Alkaline Phosphatase 137 U/L (46-116) H Total Protein 7.2 G/DL (6.4-8.2) Albumin 3.1 G/DL (3.4-5.0) L Globulin 4.1 g/dL Albumin/Globulin Ratio 0.8 (1.0-2.7) L Plan Problems: (1) Fluid overload Assessment & Plan: Patient with fluid overload BNP elevated pending cardiology input Likely respiratory component from this as well explaining URI Diurese Trend labs Pulmonary vascular congestion suspected with prominent pulmonary vascularity and interstitial densities with cardiomegaly. Costophrenic angles are well- visualized. Bones may be slightly osteopenic. Aorta is calcified. IMPRESSION: Suspected CHF (2) Lower extremity cellulitis Assessment & Plan: Patient with right TMA prior wound postoperative care had been provided for significant period time as it was improving. Some wound dehiscence identified. Mild cellulitis around the wound site. Antibiotics per infectious disease We will monitor closely over the next 24 hours if further surgical dimension necessary Furthermore identified to have a sacral deep tissue injury upon admission area of erythema 3 cm x 3 cm with superficial epidermal skin loss no dermal opening will monitor closely turn every 2 hours local care with skin protectant and foam dressing Thank you will follow with recommendations (3) Foot ulcer due to secondary DM Assessment & Plan: s/p tma r FINDINGS: Bones/joints: Status post transmetatarsal amputation. No acute fracture or dislocation seen in the hindfoot or midfoot. Incidental note of small plantar calcaneal bony spur and small adjacent enthesophyte. Soft tissues: Unremarkable. No radiopaque foreign body. Vasculature: Scattered vascular calcifications throughout the foot and ankle. IMPRESSION: 1. No acute findings. 2. Status post transmetatarsal amputation. Additional Comments d/c planning outpatient podiatry f/u Vic Wise May 07, 2019 13:17
--- NOTE | 2019-05-07 13:28 | Nephrology Progress Note ---
Assessment/Plan Problem List: (1) ESRD (end stage renal disease) on dialysis (2) CHF (congestive heart failure) (3) Fluid overload (4) Schizoaffective disorder, bipolar type (5) Diabetes mellitus, type II Assessment Admitted for respiratory distress and CHF and volume overload Unknown date of her last dialysis Conditions: (1) ESRD (end stage renal disease) on dialysis (2) Altered level of consciousness / Encephalopathy metabolic (3) Schizoaffective disorder, bipolar type (4) h/o Hypothyroidism (5) Anemia in chronic renal disease Also: - Cellulitis both LE - End-stage renal disease, on hemodialysis. fistula right arm - HTN / Pulmonary HTN - Diabetes type 2. Others - Morbid obesity. - H/O Colon Cancer - H/O Hep C - H/O Depression and Bipolar disease - Psych disease uncoaporative --Bilateral leg numbness --diabetic neuropathy --L5-S1 disc protrusion Plan And is now off BiPAP and on monitor bed She is lethargic Will change Protonix and Keppra to p.o. Last dialysis is May 05 next will be May 07 on D10 since the blood sugar is low and patient on continuous BiPAP Was dialyzed on May 01 and 4 L was removed, due for dialysis today May 03 To recheck the chest x-ray Blood pressure and blood sugar under control Per orders Subjective ROS Limited/Unobtainable: No Constitutional: Reports: malaise Objective Objective Last 24 Hour Vital Signs Date Time Temp Pulse Resp B/P (MAP) Pulse Ox O2 Delivery O2 Flow Rate FiO2 05/07/19 13:08 193/78 05/07/19 10:54 188/77 05/07/19 09:00 Nasal Cannula 2.0 05/07/19 08:20 67 208/88 05/07/19 08:01 97.9 67 20 208/88 (128) 97 05/07/19 05:43 156/72 05/07/19 04:00 98.5 68 20 156/72 (100) 90 05/07/19 00:00 97.7 72 20 159/69 (99) 94 05/06/19 21:50 124/64 05/06/19 20:00 97.3 75 20 124/64 (84) 94 05/06/19 19:55 Nasal Cannula 2.0 05/06/19 19:00 95 Nasal Cannula 2.0 28 05/06/19 16:00 97.8 67 18 134/69 (90) 94 05/06/19 16:00 2.0 05/06/19 14:00 161/62 Intake and Output 05/06/19 05/07/19 19:00 07:00 Output Total 3400 ml Balance -3400 ml Output Urine Total 400 ml Hemodialysis UF 3000 ml Current Medications Medications (Trade) Dose Ordered Sig/Gabriele Route PRN Reason Start Time Stop Time Status Last Admin Dose Admin Acetaminophen/ Hydrocodone Bitart ([place] 5/325) 1 tab ONCE ORAL 05/07/19 12:30 05/07/19 14:00 05/07/19 13:10 Amoxicillin/ Clavulanate Potassium (Augmentin) 500 mg Q24HRS ORAL 05/06/19 17:00 05/13/19 16:59 Aspirin (Ecotrin) 81 mg DAILY ORAL 05/07/19 09:00 06/16/19 09:59 05/07/19 08:19 Atorvastatin Calcium (Lipitor) 20 mg BEDTIME ORAL 05/06/19 21:00 06/01/19 20:59 05/06/19 20:40 Clonidine HCl (Catapres Tab) 0.1 mg ONCE ORAL 05/07/19 12:30 05/07/19 14:00 05/07/19 13:08 Dextrose 1,000 ml @ 30 mls/hr Q24H IV 05/06/19 17:30 06/02/19 17:29 05/06/19 18:52 Dextrose (Dextrose 50%) 25 ml Q30M PRN IV Hypoglycemia 05/06/19 16:45 06/01/19 03:44 Dextrose (Dextrose 50%) 50 ml Q30M PRN IV Hypoglycemia 05/06/19 16:45 06/01/19 03:44 Doxycycline Monohydrate (Doxycycline Monohydrate) 100 mg EVERY 12 HOURS ORAL 05/06/19 21:00 05/13/19 20:59 05/07/19 08:19 Haloperidol Lactate (Haldol) 5 mg Q6H PRN IM Agitation 05/06/19 17:00 06/16/19 16:59 Hydralazine HCl (Apresoline) 25 mg Q4H PRN ORAL SBP > 180 05/07/19 09:49 08/05/19 09:48 05/07/19 10:54 Hydralazine HCl (Apresoline) 50 mg Q8HR ORAL 05/06/19 22:00 06/01/19 09:59 05/07/19 05:43 Levetiracetam (Keppra) 500 mg Q12HR ORAL 05/06/19 21:00 06/20/19 20:59 05/07/19 08:20 Levothyroxine Sodium (Synthroid) 100 mcg DAILY@0630 ORAL 05/07/19 06:30 06/02/19 06:29 05/07/19 05:43 Lorazepam (Ativan 2mg/ml 1ml) 2 mg Q4H PRN IV For Anxiety 05/06/19 17:00 05/12/19 16:59 05/06/19 22:34 Nifedipine (Procardia XL) 90 mg DAILY ORAL 05/07/19 09:00 06/04/19 10:59 05/07/19 08:20 Pantoprazole (Protonix) 40 mg EVERY 12 HOURS ORAL 05/06/19 21:00 06/05/19 20:59 05/07/19 08:20 Risperidone (RisperDAL) 4 mg BEDTIME ORAL 05/06/19 21:00 06/16/19 20:59 05/06/19 20:40 Laboratory Tests 05/07/19 04:42: White Blood Count 4.6L, Red Blood Count 4.66, Hemoglobin 14.5, Hematocrit 45.4, Mean Corpuscular Volume 97, Mean Corpuscular Hemoglobin 31.1H, Mean Corpuscular Hemoglobin Concent 32.0, Red Cell Distribution Width 17.2H, Platelet Count 83L, Mean Platelet Volume 8.6, Neutrophils (%) (Auto) , Lymphocytes (%) (Auto) , Monocytes (%) (Auto) , Eosinophils (%) (Auto) , Basophils (%) (Auto) , Differential Total Cells Counted 100, Neutrophils % (Manual) 65, Lymphocytes % ( Manual) 12L, Monocytes % (Manual) 6, Eosinophils % (Manual) 15H, Basophils % ( Manual) 2, Band Neutrophils 0, Platelet Estimate DecreasedL, Platelet Morphology Normal, Anisocytosis 1+, Sodium Level 145, Potassium Level 4.1, Chloride Level 102, Carbon Dioxide Level 32, Anion Gap 12, Blood Urea Nitrogen 18, Creatinine 4.9H, Estimat Glomerular Filtration Rate 9.1, Glucose Level 78, Calcium Level 10.0, Total Bilirubin 0.7, Aspartate Amino Transf (AST/SGOT) 21, Alanine Aminotransferase (ALT/SGPT) 9L, Alkaline Phosphatase 137H, Total Protein 7.2, Albumin 3.1L, Globulin 4.1, Albumin/Globulin Ratio 0.8L Height (Feet): 5 Height (Inches): 4.00 Weight (Pounds): 187 General Appearance: no apparent distress Cardiovascular: normal rate Respiratory/Chest: decreased breath sounds Abdomen: distended Objective No change Eamon Solis MD May 07, 2019 13:28
--- NOTE | 2019-05-07 13:41 | NUR ---
CASE MANAGEMENT:REVIEW SI;ACUTE RESPIRATORY FAILURE BILATERAL PNA. SEPSIS. ESRD. 98.4 72 20 208/88 97% 2L NC WBC 4.6 CR 4.9 ALK PHOS 137 IS;AUGMENTIN PO QD D5 @ 30 ML/HR DOXYCYCLINE PO BID PROTONIX PO BID KEPPRA PO BID ASA PO QD CLONIDINE PO ONCE NIFEDIPINE PO QD MED SURG STATUS DCP;FROM [facility]
--- NOTE | 2019-05-07 15:09 | Diagnostic Imaging Report ---
Indication: Dyspnea Comparison: 05/04/2019 A single view chest radiograph was obtained. Findings: Interstitial edema demonstrated. There is a right pleural effusion suspected. Heart is enlarged. IMPRESSION: Slightly worsening interstitial edema.
[2019-05-07 16:00] VITALS: BP 181/76
--- NOTE | 2019-05-07 16:30 | NUR ---
NURSE NOTES: pt has become very lethargic but still abusable to pain. Pt is currently on bipap sating at 98. ABG's were drawn, notified doctor about change in condition.
[2019-05-07] MEDS: Dextrose 10% 1,000 ML IV SCH (17:30)
--- NOTE | 2019-05-07 18:59 | NUR ---
HAND-OFF: Report given to Yeny, pt in stable condition very lethargic and using BIPAP. Pt has been having high blood pressure and is arousable to pain, Doct. Nila is aware, blood sugar 121 and did not wanted to eat dinner.
--- NOTE | 2019-05-07 19:10 | NUR ---
RESPIRATORY NOTE: PT RECEIVED ON BIPAP WITH CURRENT SETTINGS: 01/23, RATE: 14, FIO2: 45%. ALARMS ARE ON AND AUDIBLE. BIPAP IS CONNECTED TO RED OUTLET. NO S/S OF RESPIRATORY DISTRESS NOTED AT THIS TIME. WILL CONTINUE TO CLOSELY MONITOR.
--- NOTE | 2019-05-07 19:32 | NUR ---
NURSE NOTES: Received patient asleep, easily arousable, on bipap. Patient hasnt eaten dinner yet per AM nurse, will feed patient when patient wakes up. P200 mattress noted, IV access intact but flushes with resistance, MD aware. Will monitor blood pressure and blood sugar closely.
[2019-05-07 19:52] VITALS: BP 169/69
[2019-05-07] MEDS: Atorvastatin 20mg tab ORAL SCH (21:09)
--- NOTE | 2019-05-07 21:36 | NUR ---
NURSE NOTES: Patient ate 25% of dinner. Observed trying to remove bipap mask.
[2019-05-08] VITALS: BP 160/68
--- NOTE | 2019-05-08 00:45 | Progress Note ---
DATE: 05/07/2019 SUBJECTIVE: The patient is much calmer than previous encounter. More manageable. No behavior issues noted. Compliant. MENTAL STATUS EXAMINATION: The patient is alert and oriented times self and place. Mood is neutral. Affect is flat. Thought process is concrete. Thought content, no suicidal or homicidal ideation. ASSESSMENT: 1. Schizophrenia disorder. 2. Chronic toxic encephalopathy. PLAN: 1. Continue current psychotropic medications. 2. Provide the patient with reality orientation. Blanka Beckett M.D. DR: RAGHU JOB#: [id number] CC: VIKAS
[2019-05-08 04:00] VITALS: BP 150/70
--- NOTE | 2019-05-08 04:59 | NUR ---
RESPIRATORY NOTE: PT REMAINED STABLE ON BIPAP WITH CURRENT SETTINGS. PT PLACED ON 2LPM NASAL CANNULA AT THIS TIME. UPON REMOVAL OF BIPAP MASK REDNESS WAS NOTED ON RIGHT SIDE OF FACE. CHEPE FIELD NOTIFIED.
[2019-05-08] MEDS: HydrALAZINE 50mg tab ORAL SCH ×3 (05:46→22:15)
--- NOTE | 2019-05-08 05:50 | NUR ---
NURSE NOTES: redness noted on patient's left cheek. See wound care photo.
[2019-05-08 06:36] LABS: HEMATOCRIT 43.2 % (37.0-47.0); HEMOGLOBIN 13.9 G/DL (12.0-16.0); MEAN CORPUSCULAR VOLUME 96 FL (80-99); PLATELET COUNT 80 K/UL (150-450); RED BLOOD COUNT 4.49 M/UL (4.20-5.40); RED CELL DISTRIBUTION WIDTH 16.6 % (11.6-14.8); WHITE BLOOD COUNT 4.8 K/UL (4.8-10.8)
[2019-05-08 06:56] LABS: ANION GAP 12 mmol/L (5-15); BLOOD UREA NITROGEN 29 mg/dL (7-18); CALCIUM 9.8 MG/DL (8.5-10.1); CARBON DIOXIDE 30 MMOL/L (21-32); CHLORIDE 98 MMOL/L (98-107); CREATININE 5.9 MG/DL (0.55-1.30); POTASSIUM 4.7 MMOL/L (3.5-5.1); SODIUM 140 MMOL/L (136-145)
--- NOTE | 2019-05-08 07:19 | NUR ---
HAND-OFF: Report given to CHEPE Cordero. Patient currently eating breakfast
--- NOTE | 2019-05-08 07:29 | NUR ---
NURSE NOTES: Received report from CHEPE Saini. Patient sitting up in bed, awake and alert to name, eating breakfast, removing nasal cannula, left wrist in restraint, will put right arm back in restraint after breakfast, bed in lowest position, call light within reach, no c/o pain, no SOB, BIPAP at bedside.
[2019-05-08 08:00] VITALS: BP 144/77
[2019-05-08] MEDS: Doxycycline Monohydrate 100mg ORAL SCH (08:02)
[2019-05-08] MEDS: Aspirin EC 81mg tab ORAL SCH (08:02)
--- NOTE | 2019-05-08 11:06 | Nephrology Progress Note ---
Assessment/Plan Problem List: (1) ESRD (end stage renal disease) on dialysis (2) CHF (congestive heart failure) (3) Fluid overload (4) Schizoaffective disorder, bipolar type (5) Diabetes mellitus, type II Assessment Admitted for respiratory distress and CHF and volume overload Unknown date of her last dialysis Conditions: (1) ESRD (end stage renal disease) on dialysis (2) Altered level of consciousness / Encephalopathy metabolic (3) Schizoaffective disorder, bipolar type (4) h/o Hypothyroidism (5) Anemia in chronic renal disease Also: - Cellulitis both LE - End-stage renal disease, on hemodialysis. fistula right arm - HTN / Pulmonary HTN - Diabetes type 2. Others - Morbid obesity. - H/O Colon Cancer - H/O Hep C - H/O Depression and Bipolar disease - Psych disease uncoaporative --Bilateral leg numbness --diabetic neuropathy --L5-S1 disc protrusion Plan And is now off BiPAP and on monitor bed She is lethargic Will change Protonix and Keppra to p.o. Last dialysis is May 05 next will be May 07 on D10 since the blood sugar is low and patient on continuous BiPAP Was dialyzed on May 01 and 4 L was removed, due for dialysis today May 03 To recheck the chest x-ray Blood pressure and blood sugar under control Per orders Subjective ROS Limited/Unobtainable: No Constitutional: Reports: malaise Objective Objective Last 24 Hour Vital Signs Date Time Temp Pulse Resp B/P (MAP) Pulse Ox O2 Delivery O2 Flow Rate FiO2 05/08/19 09:00 65 150/70 05/08/19 09:00 Nasal Cannula 2.0 05/08/19 08:00 98.0 65 18 144/77 (99) 98 05/08/19 05:46 150/70 05/08/19 04:59 65 15 98 45 05/08/19 04:00 97.3 60 17 150/70 (96) 98 05/08/19 03:00 70 15 97 45 05/08/19 01:08 68 17 98 45 05/08/19 00:00 97.3 53 19 160/68 (98) 98 05/07/19 22:35 60 14 99 45 05/07/19 21:09 169/69 05/07/19 20:53 Nasal Cannula 2.0 3/18/20 20:30 64 18 97 45 05/07/19 20:30 96 Bi-Pap 45 05/07/19 19:52 97.6 59 19 169/69 (102) 98 05/07/19 19:10 59 15 96 Bi-Pap 45 05/07/19 19:10 59 15 96 45 05/07/19 17:50 181/76 05/07/19 16:35 57 16 99 45 05/07/19 16:00 97.8 60 19 181/76 (111) 98 05/07/19 13:08 193/78 05/07/19 12:00 98.4 66 20 193/78 (116) 97 Intake and Output 05/07/19 05/08/19 19:00 07:00 Intake Total 460 ml Output Total 350 ml 200 ml Balance 110 ml -200 ml Intake Oral 460 ml Output Urine Total 350 ml 200 ml # Voids 1 Current Medications Medications (Trade) Dose Ordered Sig/Gabriele Route PRN Reason Start Time Stop Time Status Last Admin Dose Admin Amoxicillin/ Clavulanate Potassium (Augmentin) 500 mg Q24HRS ORAL 05/06/19 17:00 05/13/19 16:59 05/07/19 16:15 Aspirin (Ecotrin) 81 mg DAILY ORAL 05/07/19 09:00 06/16/19 09:59 05/08/19 08:02 Atorvastatin Calcium (Lipitor) 20 mg BEDTIME ORAL 05/06/19 21:00 06/01/19 20:59 05/07/19 21:09 Dextrose 1,000 ml @ 30 mls/hr Q24H IV 05/06/19 17:30 06/02/19 17:29 05/06/19 18:52 Dextrose (Dextrose 50%) 25 ml Q30M PRN IV Hypoglycemia 05/06/19 16:45 06/01/19 03:44 Dextrose (Dextrose 50%) 50 ml Q30M PRN IV Hypoglycemia 05/06/19 16:45 06/01/19 03:44 Doxycycline Monohydrate (Doxycycline Monohydrate) 100 mg EVERY 12 HOURS ORAL 05/06/19 21:00 05/13/19 20:59 05/08/19 08:02 Haloperidol Lactate (Haldol) 5 mg Q6H PRN IM Agitation 05/06/19 17:00 06/16/19 16:59 Hydralazine HCl (Apresoline) 25 mg Q4H PRN ORAL SBP > 180 05/07/19 09:49 08/05/19 09:48 05/07/19 10:54 Hydralazine HCl (Apresoline) 50 mg Q8HR ORAL 05/06/19 22:00 06/01/19 09:59 05/08/19 05:46 Levetiracetam (Keppra) 500 mg Q12HR ORAL 05/06/19 21:00 06/20/19 20:59 05/08/19 08:02 Levothyroxine Sodium (Synthroid) 100 mcg DAILY@0630 ORAL 05/07/19 06:30 06/02/19 06:29 05/08/19 05:46 Lorazepam (Ativan 2mg/ml 1ml) 2 mg Q4H PRN IV For Anxiety 05/06/19 17:00 05/12/19 16:59 05/06/19 22:34 Nifedipine (Procardia XL) 90 mg DAILY ORAL 05/07/19 09:00 06/04/19 10:59 05/07/19 08:20 Pantoprazole (Protonix) 40 mg EVERY 12 HOURS ORAL 05/06/19 21:00 06/05/19 20:59 05/08/19 08:02 Risperidone (RisperDAL) 4 mg BEDTIME ORAL 05/06/19 21:00 06/16/19 20:59 05/07/19 21:09 Laboratory Tests 05/07/19 16:39: Arterial Blood pH 7.346L, Arterial Blood Partial Pressure CO2 48.8H, Arterial Blood Partial Pressure O2 89.4, Arterial Blood HCO3 26.1H, Arterial Blood Oxygen Saturation 95.7, Arterial Blood Base Excess -0.1, Vishal Test Positive 05/08/19 05:31: White Blood Count 4.8, Red Blood Count 4.49, Hemoglobin 13.9, Hematocrit 43.2, Mean Corpuscular Volume 96, Mean Corpuscular Hemoglobin 30.9, Mean Corpuscular Hemoglobin Concent 32.1, Red Cell Distribution Width 16.6H, Platelet Count 80L, Mean Platelet Volume 8.1, Neutrophils (%) (Auto) , Lymphocytes (%) (Auto) , Monocytes (%) (Auto) , Eosinophils (%) (Auto) , Basophils (%) (Auto) , Differential Total Cells Counted 100, Neutrophils % (Manual) 60, Lymphocytes % ( Manual) 26, Monocytes % (Manual) 2, Eosinophils % (Manual) 12H, Basophils % ( Manual) 0, Band Neutrophils 0, Platelet Estimate DecreasedL, Platelet Morphology Normal, Anisocytosis 1+, Sodium Level 140, Potassium Level 4.7, Chloride Level 98, Carbon Dioxide Level 30, Anion Gap 12, Blood Urea Nitrogen 29H, Creatinine 5.9H, Estimat Glomerular Filtration Rate 7.3, Glucose Level 80, Calcium Level 9.8 Height (Feet): 5 Height (Inches): 4.00 Weight (Pounds): 185 General Appearance: no apparent distress Objective No change Eamon Solis MD May 08, 2019 11:06
--- NOTE | 2019-05-08 11:19 | NUR ---
*-* INSURANCE *-* UDATED CLINICALS AND REVIEWS HAVE BEEN FAXED TO: [employer] Ref# [id number] # [phone] fax#[phone]
[2019-05-08 12:00] VITALS: BP 157/67
--- NOTE | 2019-05-08 12:20 | Surgery Progress Note ---
Surgery Progress Note Subjective Symptoms: improved Objective Last 24 Hour Vital Signs Date Time Temp Pulse Resp B/P (MAP) Pulse Ox O2 Delivery O2 Flow Rate FiO2 05/08/19 09:00 65 150/70 05/08/19 09:00 Nasal Cannula 2.0 05/08/19 08:00 98.0 65 18 144/77 (99) 98 05/08/19 05:46 150/70 05/08/19 04:59 65 15 98 45 05/08/19 04:00 97.3 60 17 150/70 (96) 98 05/08/19 03:00 70 15 97 45 05/08/19 01:08 68 17 98 45 05/08/19 00:00 97.3 53 19 160/68 (98) 98 05/07/19 22:35 60 14 99 45 05/07/19 21:09 169/69 05/07/19 20:53 Nasal Cannula 2.0 05/07/19 20:30 64 18 97 45 05/07/19 20:30 96 Bi-Pap 45 05/07/19 19:52 97.6 59 19 169/69 (102) 98 05/07/19 19:10 59 15 96 Bi-Pap 45 05/07/19 19:10 59 15 96 45 05/07/19 17:50 181/76 05/07/19 16:35 57 16 99 45 05/07/19 16:00 97.8 60 19 181/76 (111) 98 05/07/19 13:08 193/78 I&O Intake and Output 05/07/19 05/08/19 19:00 07:00 Intake Total 460 ml Output Total 350 ml 200 ml Balance 110 ml -200 ml Intake Oral 460 ml Output Urine Total 350 ml 200 ml # Voids 1 Dressing: dry Wound: clean Cardiovascular: RSR Respiratory: clear Abdomen: soft, non-tender, present bowel sounds Extremities: no tenderness, no cyanosis Laboratory Tests Test 05/07/19 16:39 05/08/19 05:31 Arterial Blood pH 7.346 (7.350-7.450) Arterial Blood Partial Pressure CO2 48.8 mmHg (35.0-45.0) H Arterial Blood Partial Pressure O2 89.4 mmHg (75.0-100.0) Arterial Blood HCO3 26.1 mmol/L (22.0-26.0) H Arterial Blood Oxygen Saturation 95.7 % (95-100) Arterial Blood Base Excess -0.1 (-2-2) Vishal Test Positive White Blood Count 4.8 K/UL (4.8-10.8) Red Blood Count 4.49 M/UL (4.20-5.40) Hemoglobin 13.9 G/DL (12.0-16.0) Hematocrit 43.2 % (37.0-47.0) Mean Corpuscular Volume 96 FL (80-99) Mean Corpuscular Hemoglobin 30.9 PG (27.0-31.0) Mean Corpuscular Hemoglobin Concent 32.1 G/DL (32.0-36.0) Red Cell Distribution Width 16.6 % (11.6-14.8) H Platelet Count 80 K/UL (150-450) L Mean Platelet Volume 8.1 FL (6.5-10.1) Neutrophils (%) (Auto) % (45.0-75.0) Lymphocytes (%) (Auto) % (20.0-45.0) Monocytes (%) (Auto) % (1.0-10.0) Eosinophils (%) (Auto) % (0.0-3.0) Basophils (%) (Auto) % (0.0-2.0) Differential Total Cells Counted 100 Neutrophils % (Manual) 60 % (45-75) Lymphocytes % (Manual) 26 % (20-45) Monocytes % (Manual) 2 % (1-10) Eosinophils % (Manual) 12 % (0-3) H Basophils % (Manual) 0 % (0-2) Band Neutrophils 0 % (0-8) Platelet Estimate Decreased L Platelet Morphology Normal Anisocytosis 1+ Sodium Level 140 MMOL/L (136-145) Potassium Level 4.7 MMOL/L (3.5-5.1) Chloride Level 98 MMOL/L (98-107) Carbon Dioxide Level 30 MMOL/L (21-32) Anion Gap 12 mmol/L (5-15) Blood Urea Nitrogen 29 mg/dL (7-18) H Creatinine 5.9 MG/DL (0.55-1.30) H Estimat Glomerular Filtration Rate 7.3 mL/min (>60) Glucose Level 80 MG/DL (74-106) Calcium Level 9.8 MG/DL (8.5-10.1) Plan Problems: (1) Fluid overload Assessment & Plan: Patient with fluid overload BNP elevated pending cardiology input Likely respiratory component from this as well explaining URI Diurese Trend labs Pulmonary vascular congestion suspected with prominent pulmonary vascularity and interstitial densities with cardiomegaly. Costophrenic angles are well- visualized. Bones may be slightly osteopenic. Aorta is calcified. IMPRESSION: Suspected CHF (2) Lower extremity cellulitis Assessment & Plan: Patient with right TMA prior wound postoperative care had been provided for significant period time as it was improving. Some wound dehiscence identified. Mild cellulitis around the wound site. Antibiotics per infectious disease We will monitor closely over the next 24 hours if further surgical dimension necessary Furthermore identified to have a sacral deep tissue injury upon admission area of erythema 3 cm x 3 cm with superficial epidermal skin loss no dermal opening will monitor closely turn every 2 hours local care with skin protectant and foam dressing Thank you will follow with recommendations (3) Foot ulcer due to secondary DM Assessment & Plan: s/p tma r FINDINGS: Bones/joints: Status post transmetatarsal amputation. No acute fracture or dislocation seen in the hindfoot or midfoot. Incidental note of small plantar calcaneal bony spur and small adjacent enthesophyte. Soft tissues: Unremarkable. No radiopaque foreign body. Vasculature: Scattered vascular calcifications throughout the foot and ankle. IMPRESSION: 1. No acute findings. 2. Status post transmetatarsal amputation. Vic Wise May 08, 2019 12:20
[2019-05-08] MEDS ORDERED: AMOX TR-K CLV1 EAC1 ORAL (12:36)
[2019-05-08] MEDS ORDERED: DOXYCYCLINE MO100 MG ORAL (12:36)
[2019-05-08] MEDS ORDERED: KEPPRA500 MG ORAL (12:37)
--- NOTE | 2019-05-08 12:46 | Discharge Summary ---
Discharge Summary Hospital Course Date of Admission May 01, 2019 at 23:18 Date of Discharge 05/08/19 Admitting Diagnosis fluid overload, diabetes, cellulitis HPI Cris Zuluaga is a 58 year old female who was admitted on May 01, 2019 at 23:18 for Fluid Overload,Diabetes,Cellulitis Consultations Pulm,ID,Renal,Psychiatry Procedures None Hospital Course 57 year-old with history of ESRD on HD MWF through right upper extremity graft, obesity, schizophrenia, bipolar disorder, diabetes, hypertension, hyperlipidemia , chronic anemia who presented to the hospital with fever and cough. She was admitted to ICU with septic shock, acute hypoxic and hypercarbic resp failure due to gram negative pneumonia with bilateral infiltrates, bilateral LE cellulitis. Treated with vasopressors, NIPPV and broad spectrum antibiotics stabilized and ultimately transferred out of ICU, ESRD and fluid overload managed by Nephrology. She has been transitioned to oral antibiotics and mentation is back to baseline. Stable for discharge back to [facility] in improved condition. She will be on Augmentin and Doxy for 3 more days Discharge Diagnoses #Acute hypoxic and hypercarbic respiratory failure #Suspected gram negative pneumonia (HCAP) #Bilateral infiltrates on CXR #Septic shock - resolved #Hypotension - resolved #Hypertension #Hypertensive urgency - resolved. #S/p right TMA with bilateral LE cellulitis #ESRD #Fluid overload #Acute metabolic encephalopathy #Schizophrenia and bipolar #Hypertensive urgency #DM type 2 #HLD #Epilepsy #Hypothyroidism #Moderate-severe protein calorie malnutrition Time spent on preparing discharge was 36 mins, which includes time spent on coordinating with RN, caser up and consulting MDs Time of note doesn't reflect time of encounter. Discharge Medications New Medications: Amoxicillin/Potassium Clav 500-125 Mg Tab* (Amox Tr-K Clv 500-125 Mg Tab*) 1 Each Tablet 500 MG ORAL Q24HRS for 3 Days, #3 TAB Doxycycline Monohydrate* (Doxycycline Monohydrate*) 100 Mg Capsule 100 MG ORAL EVERY 12 HOURS for 3 Days, #6 CAP Levetiracetam (Keppra) 250 Mg Tablet 500 MG ORAL Q12HR for 15 Days, #15 TAB Continued Medications: Acetaminophen* (Acetaminophen 325MG Tablet*) 325 Mg Tablet 650 MG ORAL Q6H PRN for MILD PAIN, TAB (This prescription has been renewed) Aspirin* (Aspir 81*) 81 Mg Tablet.dr 81 MG ORAL DAILY, TAB (This prescription has been renewed) Atorvastatin Calcium* (Lipitor*) 20 Mg Tablet 20 MG ORAL BEDTIME, TAB (This prescription has been renewed) Calcium Acetate (Phoslyra) 667 Mg/5 Ml Solution 1334 MG PO TID for ESRD WITH MEALS Ferrous Sulfate* (Ferrous Sulfate*) 325 Mg Tablet 325 MG ORAL DAILY, #30 TAB 0 Refills (This prescription has been renewed) Hydralazine Hcl* (Hydralazine Hcl*) 25 Mg Tablet 25 MG ORAL EVERY 4 HOURS PRN for FOR SBP>160 OR DBP>90, TAB 0 Refills (This prescription has been renewed) Hydrocodone Bit/Acetaminophen 5-325* (Polk 5-325 Tablet*) 1 Each Tablet 1 TAB ORAL Q8HR PRN for SEVERE PAIN, TAB 0 Refills (This prescription has been renewed) Ipratropium/Albuterol Sulfate (DuoNeb 0.5-3(2.5)mg/3ml) 3 Ml Ampul.neb 3 ML HHN Q6HR PRN for Shortness of Breath, EA (This prescription has been renewed) Lactulose (Lactulose) 10 Gm/15 Ml Solution 45 ML PO BID for ENCEPHALOPATHY (This prescription has been renewed) Levothyroxine Sodium* (Synthroid*) 100 Mcg Tablet 100 MCG ORAL DAILY@0630 for 10 Days, #10 TAB Take in the morning on an empty stomach, at least 30 minutes before food. Melatonin (Melatonin) 10 Mg Tablet 10 MG ORAL BEDTIME PRN for IMPROVE CIRCADIAN RHYTHM for 30 Days, TAB (This prescription has been renewed) Nifedipine Xl* (Procardia Xl*) 30 Mg Tab.er.24 60 MG ORAL BID for 10 Days, #20 TAB Polyethylene Glycol 3350* (Miralax*) 17 Gm Powd.pack 17 GM ORAL DAILY, PACKET (This prescription has been renewed) Risperidone* (Risperdal*) 2 Mg Tablet 4 MG ORAL BEDTIME for 10 Days, #10 TAB Sertraline Hcl* (Sertraline Hcl*) 25 Mg Tablet 25 MG ORAL DAILY for DEPRESSION, TAB (This prescription has been renewed) Vitamin B Cmplx/Vit C/Folic AC (Nephro-Denise Tablet) 0.8 Mg Tablet 1 TAB ORAL DAILY, #30 TAB 0 Refills (This prescription has been renewed) Discharge Discharge Vital Signs Last Vital Signs Date Time Temp Pulse Resp B/P (MAP) Pulse Ox O2 Delivery O2 Flow Rate FiO2 05/08/19 12:00 96.8 53 18 157/67 (97) 93 05/08/19 09:00 Nasal Cannula 2.0 05/08/19 04:59 45 Discharge Disposition Patient was discharged to SNF Discharge Diagnoses: (1) Septic shock (2) Lower extremity cellulitis (3) HCAP (healthcare-associated pneumonia) (4) Diabetes mellitus, type II (5) HTN (hypertension) (6) ESRD (end stage renal disease) on dialysis Norman oCoper MD May 08, 2019 12:45
--- NOTE | 2019-05-08 12:49 | NUR ---
DISCHARGE PLANNING PATIENT HAS BEEN REFERRED BACK TO [facility] P: [phone] F: [phone] FOLLOW UP CALL BRONSON, S/W KONRAD, STATES SHE WILL CALL CM WITH ROOM ASSIGNMENT PENDING RECEIPT AND REVIEW OF CLINICALS Addendum: 05/08/19 at 1501 by JAYESH MCCOY LVN LVN CALL BRONSON AND S/Q RAINER AT [facility]. CONFIRMED RECEIPT OF CLINICALS. PROVIDED FOLLOWING ROOM ASSIGNMENT: 203-B SKILLED PER RAINER, FACILITY ABLE TO ACCOMMODATE PATIENTS RETURN ON Sun05/09/2019 BLS AMBULANCE TRANSPORTATION WILL BE SCHEDULED ON WILL CALL FOR Sun05/09/2019 RN TO ACTIVATE WILL CALL WHEN PATIENT READY FOR DC IN AM
[2019-05-08 16:00] VITALS: BP 124/59
--- NOTE | 2019-05-08 16:27 | NUR ---
ST NOTES: PATIENT SEEN FOR DYSPHAGIA, SEE SWALLOW EVALUATION. GOALS MET FOR NEW STAFF (SIMA RN, SALES REPRESENTATIVE [employer] NOT AVAILABLE) FOR ASPIRATION PRECAUTIONS. GOALS NOT CONSISTENTLY MET FOR INTAKE ON [facility] SOFT GROUND DIET AND NECTAR THICK LIQUIDS (0/25/75%) AND MAY RELATE TO DISLIKE OF THE DOWNGRADED DIET. GIVEN PO TRIAL OF MASTICATED SOLID, EFFICIENT AND GROSSLY FUNCTIONAL SWALLOW W/O OVERT ASPIRATION AND GOOD RESP RATE OF 15-18 BPM AND SP02 98% ON 2 LITERS 02 NC. PATIENT NEEDED CUES TO PUT BACK ON HER NASAL CANNULA. GIVEN THIN LIQUIDS VIA STRAW SEQUENTIAL SIPS, THE PATIENT TOOK A FEW SIPS AND COUGHED (LIKELY ASPIRATED) ON THE NEW BRAINTREE SWALLOW 3 0Z WATER PROTOCOL. WILL CONTINUE WITH NECTAR THICK LIQUIDS FOR NOW UNTIL MBSS. PER RN, PATIENT MAY BE D/C TOMORROW. UNABLE TO COMPLETE MODIFIED BARIUM SWALLOW STUDY (MBSS) DUE TO SCHEDULE CONFLICTS BUT LUNGS ARE CLEAR OF INFILTRATES (05/07/19). PLAN: CONTINUE WITH PO BUT UPGRADE TO [facility] SOFT FINELY CHOPPED AND CONTINUE WITH NECTAR THICK LIQUIDS FOR NOW USING POSTED ASPIRATION PRECAUTIONS AND CUES FOR USING SWALLOW STRATEGIES. MOD BARIUM SWALLOW STUDY TOMORROW OR OUTPT IF DC (DO NOT HOLD UP D/C FOR THIS STUDY.
--- NOTE | 2019-05-08 16:38 | NUR ---
*-* INSURANCE *-* UPDATED CLINICAL AND REVIEWS HAVE BEEN FAXED TO: [facility] REF# [id number] [place]: REYMUNDO PH: [phone] FAX: [phone]
[2019-05-08] MEDS: Dextrose 10% 1,000 ML IV SCH (16:59)
--- NOTE | 2019-05-08 18:15 | NUR ---
NURSE NOTES: Wound care performed, Sacrum, right foot/heel, left foot.
[2019-05-08] MEDS: LORazepam Inj 2mg/ml 1ml IV PRN ×2 (18:21→23:31)
--- NOTE | 2019-05-08 19:23 | NUR ---
HAND-OFF: Report given to Jenniffer Meza RN. Patient sitting HOB at 30 degrees, sleeping, respirations at 15 breaths per minute, oxygen at 2 liters nasal cannula, bed in lowest position, call light within reach, soft care mattress in place, no signs of pain, no c/o pain, no SOB, in no apparent distress, IV patent in left index finger 24 gauge runing fluids.
--- NOTE | 2019-05-08 19:29 | NUR ---
NURSE NOTES: Received patient in bed, asleep, no acute distress noted, IV site is clean dry and intact, call light is within reach, bed is lowered, locked, alarm is on, will continue to monitor for comfort and safety.
[2019-05-08 20:00] VITALS: BP 160/74
--- NOTE | 2019-05-08 20:10 | Infectious Diseases Prog Note ---
Assessment/Plan Assessment/Plan ASSESSMENT AND PLAN: 1. pneumonia, sepsis, sirs, bilateral leg cellulitis, right foot wound, hypothermia, sob, pulmonary edema - augmentin x 3 days - patient refusing iv - monitor labs and chest x-ray - clinically improved - pulmonary tx/support - sc-nf, mycoplasma and legionella negative - stool studies - negative 2. End-stage renal disease, on hemodialysis. 3. Right TMA with some wound dehiscence. 4. Wound care protocol. 5. ICU care. 6. Waller. 7. End-stage renal disease, on hemodialysis treatment per Renal and Medicine. 8. Right upper extremity graft. 9. Obesity. 10. Schizophrenia and bipolar disease. 11. Diabetes. 12. Hypertension. 13. Hyperlipidemia. 14. Anemia. 15. Blood sugar and blood pressure treatment for diabetes and hypertension per primary care team. 16. Hypothyroidism. 17. Thyroid supplementation. 18. Encephalopathy. 19. Epilepsy. 20. Past medical history noted 21. No known drug allergies. 22. Social history is negative. 23. Family history is noncontributory. 24. MAR is noted. 25. Case was discussed with RN. 26. vre colonization Subjective Constitutional: Denies: fever HEENT: Denies: congestion Respiratory: Denies: shortness of breath Cardiovascular: Denies: chest pain Gastrointestinal/Abdominal: Reports: other - no diarrhea per RN; Denies: nausea , vomiting, diarrhea Genitourinary: Reports: other - no waller Neurologic: Denies: headache Psychiatric: Denies: depression Skin: Denies: rash Hematologic: Denies: bleeding Musculoskeletal: Denies: pain Allergies: Coded Allergies: No Known Allergies (Verified , 08/23/06) Objective Vital Signs Last 24 Hour Vital Signs Date Time Temp Pulse Resp B/P (MAP) Pulse Ox O2 Delivery O2 Flow Rate FiO2 05/08/19 16:00 98.4 60 18 124/59 (80) 97 05/08/19 14:00 157/67 05/08/19 12:00 96.8 53 18 157/67 (97) 93 05/08/19 09:00 65 150/70 05/08/19 09:00 Nasal Cannula 2.0 05/08/19 08:00 98.0 65 18 144/77 (99) 98 05/08/19 05:46 150/70 05/08/19 04:59 65 15 98 45 05/08/19 04:00 97.3 60 17 150/70 (96) 98 05/08/19 03:00 70 15 97 45 05/08/19 01:08 68 17 98 45 05/08/19 00:00 97.3 53 19 160/68 (98) 98 05/07/19 22:35 60 14 99 45 05/07/19 21:09 169/69 05/07/19 20:53 Nasal Cannula 2.0 05/07/19 20:30 64 18 97 45 05/07/19 20:30 96 Bi-Pap 45 Height (Feet): 5 Height (Inches): 4.00 Weight (Pounds): 185 General Appearance: no acute distress HEENT: normocephalic, atraumatic, anicteric, mucous membranes moist Respiratory/Chest: lungs clear, normal breath sounds, no respiratory distress, no accessory muscle use Cardiovascular: normal rate, regular rhythm, no gallop/murmur, no JVD Abdomen: normal bowel sounds, soft, non tender, no organomegaly, non distended Genitourinary: other - no waller Extremities: other - no significant cellulitis in legs Skin: no rash Neurologic/Psychiatric: box annealer II-XII grossly normal, alert, responsive Lymphatic: no neck adenopathy Objective Chest x-ray - 05/04/19 - TECHNIQUE: Frontal view of the chest. COMPARISON: Chest x-rays dated 05/01/19 FINDINGS: Lungs: Pulmonary vascular congestion. Subsegmental atelectasis versus infiltrates in bilateral lung bases. Pleural space: Bilateral mild to moderate layering pleural effusions, greater on the right, worsened compared to the prior exam. Heart: Unremarkable. No cardiomegaly. Mediastinum: Unremarkable. Bones/joints: Unremarkable. Vasculature: Atherosclerotic calcifications within the aortic arch. Tubes, lines and devices: Telemetry leads overlie the thorax. IMPRESSION: 1. Bilateral mild to moderate layering pleural effusions, greater on the right, worsened compared to the prior exam. 2. Pulmonary vascular congestion, not significantly changed. 3. Subsegmental atelectasis versus infiltrates in bilateral lung bases. x-ray - right foot: Procedure: XRAY Foot 2v R EXAM: XR Right Foot, 2 Views CLINICAL HISTORY: INFECT TECHNIQUE: Frontal and lateral views of the right foot. COMPARISON: Right foot x-rays dated 11/11/17 FINDINGS: Bones/joints: Status post transmetatarsal amputation. No acute fracture or dislocation seen in the hindfoot or midfoot. Incidental note of small plantar calcaneal bony spur and small adjacent enthesophyte. Soft tissues: Unremarkable. No radiopaque foreign body. Vasculature: Scattered vascular calcifications throughout the foot and ankle. IMPRESSION: 1. No acute findings. 2. Status post transmetatarsal amputation. If there is clinical concern for osteomyelitis, MRI or nuclear medicine bone scan should be considered. Chest x-ray - 05/07/19 - Procedure: XRAY Chest 1v Indication: Dyspnea Comparison: 05/04/2019 A single view chest radiograph was obtained. Findings: Interstitial edema demonstrated. There is a right pleural effusion suspected. Heart is enlarged. IMPRESSION: Slightly worsening interstitial edema. Microbiology Date/Time Source Procedure Growth Status 05/01/19 21:00 Blood Blood Culture - Final NO GROWTH AFTER 5 DAYS Complete 05/04/19 03:15 Sputum Expectorated Gram Stain - Final Complete 05/04/19 03:15 Sputum Expectorated Sputum Culture - Final NORMAL UPPER RESPIRATORY MOE PRESENT Complete 05/04/19 03:15 Stool Ova and Parasites - Final Complete 05/04/19 03:15 Stool Ova and Parasite Result 1 - Final Complete 05/01/19 23:10 Rectum VRE Culture - Final Enterococcus Faecalis - Vre Complete Laboratory Tests Test 05/08/19 05:31 White Blood Count 4.8 K/UL (4.8-10.8) Red Blood Count 4.49 M/UL (4.20-5.40) Hemoglobin 13.9 G/DL (12.0-16.0) Hematocrit 43.2 % (37.0-47.0) Mean Corpuscular Volume 96 FL (80-99) Mean Corpuscular Hemoglobin 30.9 PG (27.0-31.0) Mean Corpuscular Hemoglobin Concent 32.1 G/DL (32.0-36.0) Red Cell Distribution Width 16.6 % (11.6-14.8) H Platelet Count 80 K/UL (150-450) L Mean Platelet Volume 8.1 FL (6.5-10.1) Neutrophils (%) (Auto) % (45.0-75.0) Lymphocytes (%) (Auto) % (20.0-45.0) Monocytes (%) (Auto) % (1.0-10.0) Eosinophils (%) (Auto) % (0.0-3.0) Basophils (%) (Auto) % (0.0-2.0) Differential Total Cells Counted 100 Neutrophils % (Manual) 60 % (45-75) Lymphocytes % (Manual) 26 % (20-45) Monocytes % (Manual) 2 % (1-10) Eosinophils % (Manual) 12 % (0-3) H Basophils % (Manual) 0 % (0-2) Band Neutrophils 0 % (0-8) Platelet Estimate Decreased L Platelet Morphology Normal Anisocytosis 1+ Sodium Level 140 MMOL/L (136-145) Potassium Level 4.7 MMOL/L (3.5-5.1) Chloride Level 98 MMOL/L (98-107) Carbon Dioxide Level 30 MMOL/L (21-32) Anion Gap 12 mmol/L (5-15) Blood Urea Nitrogen 29 mg/dL (7-18) H Creatinine 5.9 MG/DL (0.55-1.30) H Estimat Glomerular Filtration Rate 7.3 mL/min (>60) Glucose Level 80 MG/DL (74-106) Calcium Level 9.8 MG/DL (8.5-10.1) Current Medications Medications (Trade) Dose Ordered Sig/Gabriele Route PRN Reason Start Time Stop Time Status Last Admin Dose Admin Amoxicillin/ Clavulanate Potassium (Augmentin) 500 mg Q24HRS ORAL 05/06/19 17:00 05/13/19 16:59 05/08/19 16:59 Aspirin (Ecotrin) 81 mg DAILY ORAL 05/07/19 09:00 06/16/19 09:59 05/08/19 08:02 Atorvastatin Calcium (Lipitor) 20 mg BEDTIME ORAL 05/06/19 21:00 06/01/19 20:59 05/07/19 21:09 Dextrose 1,000 ml @ 30 mls/hr Q24H IV 05/06/19 17:30 06/02/19 17:29 05/08/19 16:59 Dextrose (Dextrose 50%) 25 ml Q30M PRN IV Hypoglycemia 05/06/19 16:45 06/01/19 03:44 Dextrose (Dextrose 50%) 50 ml Q30M PRN IV Hypoglycemia 05/06/19 16:45 06/01/19 03:44 Doxycycline Monohydrate (Doxycycline Monohydrate) 100 mg EVERY 12 HOURS ORAL 05/06/19 21:00 05/13/19 20:59 05/08/19 08:02 Haloperidol Lactate (Haldol) 5 mg Q6H PRN IM Agitation 05/06/19 17:00 06/16/19 16:59 Hydralazine HCl (Apresoline) 25 mg Q4H PRN ORAL SBP > 180 05/07/19 09:49 08/05/19 09:48 05/07/19 10:54 Hydralazine HCl (Apresoline) 50 mg Q8HR ORAL 05/06/19 22:00 06/01/19 09:59 05/08/19 05:46 Levetiracetam (Keppra) 500 mg Q12HR ORAL 05/06/19 21:00 06/20/19 20:59 05/08/19 08:02 Levothyroxine Sodium (Synthroid) 100 mcg DAILY@0630 ORAL 05/07/19 06:30 06/02/19 06:29 05/08/19 05:46 Lorazepam (Ativan 2mg/ml 1ml) 2 mg Q4H PRN IV For Anxiety 05/06/19 17:00 05/12/19 16:59 05/08/19 18:21 Nifedipine (Procardia XL) 90 mg DAILY ORAL 05/07/19 09:00 06/04/19 10:59 05/07/19 08:20 Pantoprazole (Protonix) 40 mg EVERY 12 HOURS ORAL 05/06/19 21:00 06/05/19 20:59 05/08/19 08:02 Risperidone (RisperDAL) 4 mg BEDTIME ORAL 05/06/19 21:00 06/16/19 20:59 05/07/19 21:09 Nehal Nolasco MD May 08, 2019 20:10
[2019-05-08] MEDS: Atorvastatin 20mg tab ORAL SCH (20:27)
--- NOTE | 2019-05-08 23:26 | Pulmonolgy Critical Care Note ---
Critical Care - Asmt/Plan Assessment/Plan: Pulmonary Progress Note HPI Patient is a 57 year-old female with Past Medical History of ESRD on HD (MWF right upper extremity graft), Obesity, Schizophrenia, Bipolar Disorder, Diabetes , Hypertension, Hyperlipidemia, Chronic anemia. Admitted from SNF with subjective fever, dry cough, redness and tenderness at site of right TMA. Noted to have worsening respiratory distress, improved on NIPPV. Patient not able to provide history Now on floor, less SOB, ABG noted, persistent congestion on CXR LE Cellulitis on Rx Allergies: No Known Allergies Past Medical History: ESRD on HD (MWF right upper extremity graft), Obesity, Schizophrenia, Bipolar Disorder, Diabetes, Hypertension, Hyperlipidemia, Hypothyroidism, Chronic anemia Physical Exam Vital signs noted General Appearance: awake, chronically ill appearing HEENT: atraumatic, anicteric Neck: normal alignment, supple Respiratory/Chest: lungs clear, normal breath sounds, no respiratory distress, no accessory muscle use Cardiovascular/Chest: normal rate, regular rhythm Abdomen: non tender, soft Extremities: non-tender, normal inspection, no edema, LE cellulitis Neurologic: relay associate II-XII grossly normal Laboratory Tests Noted Assessment/Plan: 57 year-old with history of ESRD on HD MWF through right upper extremity graft, obesity, schizophrenia, bipolar disorder, diabetes, hypertension, hyperlipidemia , chronic anemia who presented to the hospital with fever and cough #Acute hypoxic and hypercarbic respiratory failure, improved #Suspected gram negative pneumonia (HCAP) #Bilateral infiltrates on CXR, pneumonia vs volume overload -AB per ID -HD per Renal #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 -Antibiotics per ID -wound care consulted #ESRD - renal following #Acute metabolic encephalopathy -supportive care -fall and aspiration precautions #Schizophrenia and bipolar -psychiatric following #Hypertensive urgency -Hydralazine, Nifedipine #DM type 2 -ISS #Epilepsy -Continue Keppra #Hypothyroidism -continue levothyroxine CXR: Interstitial infiltrates cw volume overload Critical Care - Objective Last 24 Hour Vital Signs Date Time Temp Pulse Resp B/P (MAP) Pulse Ox O2 Delivery O2 Flow Rate FiO2 05/08/19 22:15 150/78 05/08/19 21:06 Nasal Cannula 2.0 05/08/19 20:00 97.2 64 18 160/74 (102) 97 64 05/08/19 16:00 98.4 60 18 124/59 (80) 97 05/08/19 14:00 157/67 05/08/19 12:00 96.8 53 18 157/67 (97) 93 05/08/19 09:00 65 150/70 05/08/19 09:00 Nasal Cannula 2.0 05/08/19 08:00 98.0 65 18 144/77 (99) 98 05/08/19 05:46 150/70 05/08/19 04:59 65 15 98 45 05/08/19 04:00 97.3 60 17 150/70 (96) 98 05/08/19 03:00 70 15 97 45 05/08/19 01:08 68 17 98 45 05/08/19 00:00 97.3 53 19 160/68 (98) 98 Accucheck: 98 Critical Care - Subjective ROS Limited/Unobtainable: No FI02: 45 Vent Support Mode: BiLevel Sputum Amount: None I&O: Intake and Output 05/07/19 05/08/19 19:00 07:00 Intake Total 460 ml Output Total 350 ml 200 ml Balance 110 ml -200 ml Intake Oral 460 ml Output Urine Total 350 ml 200 ml # Voids 1 Alejo Hernandez MD May 08, 2019 23:26
[2019-05-09] VITALS: BP 168/78
--- NOTE | 2019-05-09 00:30 | Progress Note ---
DATE: 05/08/2019 SUBJECTIVE: The patient is asleep today, and she was going to be discharged today; however, no bed was available. Therefore, the discharge will be postponed. The patient is manageable now, not screaming or yelling. MENTAL STATUS EXAMINATION: Asleep, arousable, alert. Mood is neutral. Affect is flat. Thought process is concrete. Thought content, no suicidal or homicidal ideation. Cognition is impaired. Insight and judgment is fair. ASSESSMENT: Stable. PLAN: 1. We will continue current psychotropic medications. 2. Provide the patient with reality orientation and supportive therapy. Blanka Beckett M.D. DR: RAYMOND JOB#: [id number] CC: VIKAS
[2019-05-09 04:00] VITALS: BP 135/67
[2019-05-09 05:37] LABS: HEMATOCRIT 40.9 % (37.0-47.0); HEMOGLOBIN 13.4 G/DL (12.0-16.0); MEAN CORPUSCULAR VOLUME 96 FL (80-99); PLATELET COUNT 67 K/UL (150-450); RED BLOOD COUNT 4.27 M/UL (4.20-5.40); RED CELL DISTRIBUTION WIDTH 16.7 % (11.6-14.8); WHITE BLOOD COUNT 4.7 K/UL (4.8-10.8)
[2019-05-09] MEDS: HydrALAZINE 50mg tab ORAL SCH ×3 (05:38→22:10)
[2019-05-09 05:55] LABS: ALANINE AMINOTRANSFERASE 9 U/L (12-78); ALBUMIN 2.8 G/DL (3.4-5.0); ALBUMIN/GLOBULIN RATIO 0.7 (1.0-2.7); ALKALINE PHOSPHATASE 131 U/L (46-116); ANION GAP 11 mmol/L (5-15); ASPARTATE AMINO TRANSFERASE 14 U/L (15-37); BILIRUBIN,TOTAL 0.5 MG/DL (0.2-1.0); BLOOD UREA NITROGEN 24 mg/dL (7-18); CALCIUM 9.6 MG/DL (8.5-10.1); CARBON DIOXIDE 31 MMOL/L (21-32); CHLORIDE 98 MMOL/L (98-107); CREATININE 4.9 MG/DL (0.55-1.30); POTASSIUM 4.1 MMOL/L (3.5-5.1); SODIUM 140 MMOL/L (136-145)
[2019-05-09] MEDS: LORazepam Inj 2mg/ml 1ml IV PRN ×2 (06:44→17:37)
--- NOTE | 2019-05-09 07:18 | NUR ---
HAND-OFF: Report given to Maria C MO.
--- NOTE | 2019-05-09 07:23 | NUR ---
NURSE NOTES: Received report form CHEPE Subramanian (Rita). Patient sleeping. On nasal cannula, no signs of distress or labored breathing. IV intact, patent, and saline locked. Bed in lowest position with call light in reach. Will continue with plan of care.
[2019-05-09 08:00] VITALS: BP 186/68
[2019-05-09] MEDS: Aspirin EC 81mg tab ORAL SCH (08:27)
--- NOTE | 2019-05-09 10:00 | NUR ---
DISCHARGE PLANNING BLS AMBULANCE TRANSPORTATION CONFIRMED WITH [facility] @ EXT [id number] WITH AN ETA @ 1045 AM CHEPE ROYAL AWARE
--- NOTE | 2019-05-09 10:43 | NUR ---
NURSE NOTES: Called [facility] to give report. [employer] requested that case management call them because there is no bed available. RN called Kirstie from case management to notify. Case management will review. Charge nurse aware.
--- NOTE | 2019-05-09 11:05 | NUR ---
L[employer] KIL[employer] OPERATOR NOTE CALL RECEIVED FROM CHEPE ROYAL IN 4E. REPORTS [facility]RL[facility] MERCEDES INFORMED HER NO BED AVAILABLE FOR PATIENT TODAY. CALL MADE TO ARLENE MERCEDES, S/W KONRAD IN ADMISSIONS, STATES FACILITY ANTICIPATED A BED FOR PATIENT TODAY BUT DID NOT HAVE BED AVAILABILITY OF THIS MORNING. THEREFORE PATIENT NOT ABLE TO RETURN TO SNF TODAY. KONRAD INFORMED CM TO CALL TOMORROW MORNING TO INQUIRE IF BED AVAILABLE. 4E NOTIFIED.
--- NOTE | 2019-05-09 11:15 | NUR ---
NURSE NOTES: Abdoulaye Thacker from case management patient will not be returning to [facility] today because no bed is available. Charge nurse aware.
--- NOTE | 2019-05-09 11:17 | General Progress Note ---
Assessment/Plan Status: stable Assessment/Plan: 57 year-old with history of ESRD on HD MWF through right upper extremity graft, obesity, schizophrenia, bipolar disorder, diabetes, hypertension, hyperlipidemia , chronic anemia who presented to the hospital with fever and cough #Acute hypoxic and hypercarbic respiratory failure #Suspected gram negative pneumonia (HCAP) #Bilateral infiltrates on CXR -transferred to telemetry (05/03) from ICU. -DNR/DNI -continue supplemental oxygen, titrate down as tolerated. -Pulmonology following #Septic shock - resolved #Hypotension - resolved #Hypertension #Hypertensive urgency - resolved. -cont nifedipine -added clonidine -hydralazine prn for SBP > 160. -s/p midodrine 10 mg TID -> 5 mg -> off -s/p dopamine, albumin 25 g x1. #S/p right TMA with bilateral LE cellulitis -Red Bud x 1 ordered for pain -Surgery following #ESRD #Fluid overload -Nephrology following -Monitor electrolytes -Phosphate binders -HD per Renal #Acute metabolic encephalopathy -will provide supportive care -fall and aspiration precautions -treat underlying acute medical issues #Schizophrenia and bipolar -continue outpatient psychiatric regimen -Psych following -Haldol prn -risperidone qhs. #Hypertensive urgency -Continue hydralazine, Nifedipine #DM type 2 -ISS #HLD -continue ASA -continue statin. #Epilepsy -Continue Keppra #Hypothyroidism -continue levothyroxine #Moderate-severe protein calorie malnutrition -weight measurement -encourage PO intake. Dispo: Pending bed availability at [facility] Time of note doesn't reflect time of encounter. Subjective Date patient seen: May 09, 2019 Time patient seen: 08:12 ROS Limited/Unobtainable: Yes Cardiovascular: Denies: chest pain Respiratory: Denies: cough Gastrointestinal/Abdominal: Denies: abdominal pain Allergies: Coded Allergies: No Known Allergies (Verified , 08/23/06) Subjective Follow up for septic shock, gram negative pneumonia, LE cellulitis No acute medical issues overnight Patient was to be discharged to [facility] but no bed available Bed not available today either Objective Last 24 Hour Vital Signs Date Time Temp Pulse Resp B/P (MAP) Pulse Ox O2 Delivery O2 Flow Rate FiO2 05/09/19 09:00 Nasal Cannula 2.0 05/09/19 08:27 62 186/68 05/09/19 08:00 97.6 62 18 186/68 (107) 93 3/20/20 07:36 97 Nasal Cannula 2.0 28 05/09/19 05:38 135/76 05/09/19 04:00 98.1 62 20 135/67 (89) 97 62 05/09/19 00:00 97.6 64 18 168/78 (108) 97 64 05/08/19 22:15 150/78 05/08/19 21:06 Nasal Cannula 2.0 05/08/19 20:00 97.2 64 18 160/74 (102) 97 64 05/08/19 19:23 97 Bi-Pap 45 05/08/19 16:00 98.4 60 18 124/59 (80) 97 05/08/19 14:00 157/67 05/08/19 12:00 96.8 53 18 157/67 (97) 93 Intake and Output 05/08/19 05/09/19 19:00 07:00 Output Total 6000 ml Balance -6000 ml Hemodialysis UF 6000 ml Laboratory Tests 05/09/19 04:30: White Blood Count 4.7L, Red Blood Count 4.27, Hemoglobin 13.4, Hematocrit 40.9, Mean Corpuscular Volume 96, Mean Corpuscular Hemoglobin 31.3H, Mean Corpuscular Hemoglobin Concent 32.7, Red Cell Distribution Width 16.7H, Platelet Count 67L, Mean Platelet Volume 8.5, Neutrophils (%) (Auto) , Lymphocytes (%) (Auto) , Monocytes (%) (Auto) , Eosinophils (%) (Auto) , Basophils (%) (Auto) , Differential Total Cells Counted 100, Neutrophils % (Manual) 60, Lymphocytes % ( Manual) 21, Monocytes % (Manual) 10, Eosinophils % (Manual) 9H, Basophils % ( Manual) 0, Band Neutrophils 0, Platelet Estimate DecreasedL, Platelet Morphology Normal, Anisocytosis 1+, Sodium Level 140, Potassium Level 4.1, Chloride Level 98, Carbon Dioxide Level 31, Anion Gap 11, Blood Urea Nitrogen 24H, Creatinine 4.9H, Estimat Glomerular Filtration Rate 9.1, Glucose Level 113H , Calcium Level 9.6, Total Bilirubin 0.5, Aspartate Amino Transf (AST/SGOT) 14L , Alanine Aminotransferase (ALT/SGPT) 9L, Alkaline Phosphatase 131H, Total Protein 6.6, Albumin 2.8L, Globulin 3.8, Albumin/Globulin Ratio 0.7L Height (Feet): 5 Height (Inches): 4.00 Weight (Pounds): 185 General Appearance: alert Neck: normal alignment Cardiovascular: normal rate, regular rhythm Respiratory/Chest: lungs clear, normal breath sounds Abdomen: non tender, soft Norman Cooper MD May 09, 2019 11:17
--- NOTE | 2019-05-09 11:56 | NUR ---
RD ASSESSMENT & RECOMMENDATIONS SEE CARE ACTIVITY FOR COMPLETE ASSESSMENT DAILY ESTIMATED NEEDS: Needs based on ESRD on HD, wound 62kg abw 25-30 kcals/kg 3785-5242 total kcals 1.25-1.8 g protein/kg 78-112 g total protein Fluid per MD, on HD mL/kg - total fluid mLs NUTRITION DIAGNOSIS: * Increased protein needs r/t renal dysfunction, wound healing as evidenced by ESRD dx on HD, w/ sacral and L foot DTPI. CURRENT DIET:CCHO MED, mech soft chopped, NTL PO DIET RECOMMENDATIONS: RENAL/ texture per ASSET RECOVERY SPECIALIST ADDITIONAL RECOMMENDATIONS: * RECALIBRATE BED SCALE w/ added P200 mattress * Monitor PO intake, need for snacks/ supplements * Monitor BGs, need for NISS HgA1C for eval * Wound healing: Woody 1pkt BID as tolerated, Nephrovite x 1 . .
--- NOTE | 2019-05-09 11:58 | NUR ---
SWALLOW STATUS MOD BARIUM SWALLOW STUDY TO R/O ASPIRATION AND FURTHER ASSESS SWALLOW ESPECIALLY WITH THIN LIQUIDS (COUGHS WITH WATER) D/C SUMMARY IF LEAVING OVER WEEKEND OTHERWISE WILL SEE SUNDAY FOR MOD BARIUM SWALLOW STUDY. UNABLE TO COMPLETE STUDY TODAY DUE TO SCHEDULE CONFLICTS (CAN DO OP IF DC DO NOT HOLD UP D/C FOR THIS STUDY. HOLD ON PO TRIALS TODAY DUE TO VERY SLEEPY. INTAKE GOALS VARIABLY MET (0/25/75%) ON [facility] SOFT GROUND AND NECTAR THICK LIQUIDS USING POSTED ASPIRATION PRECAUTIONS. NEW STAFF EDUCATED/TRAINED ON ASPIRATION PRECAUTIONS NOTED ON SWALLOWING EVAL. PLAN: F/UP WITH IP OR SNF DECK BUILDER ON SUNDAY (PENDING D/C) FOR SKILLED DYSPHAGIA MANAGEMENT AND TX CONSIDER MBSS IP OR OP IF DC
[2019-05-09 12:00] VITALS: BP 159/78
--- NOTE | 2019-05-09 12:10 | Nephrology Progress Note ---
Assessment/Plan Problem List: (1) ESRD (end stage renal disease) on dialysis (2) CHF (congestive heart failure) (3) Fluid overload (4) Schizoaffective disorder, bipolar type (5) Diabetes mellitus, type II Assessment Admitted for respiratory distress and CHF and volume overload Unknown date of her last dialysis Conditions: (1) ESRD (end stage renal disease) on dialysis (2) Altered level of consciousness / Encephalopathy metabolic (3) Schizoaffective disorder, bipolar type (4) h/o Hypothyroidism (5) Anemia in chronic renal disease Also: - Cellulitis both LE - End-stage renal disease, on hemodialysis. fistula right arm - HTN / Pulmonary HTN - Diabetes type 2. Others - Morbid obesity. - H/O Colon Cancer - H/O Hep C - H/O Depression and Bipolar disease - Psych disease uncoaporative --Bilateral leg numbness --diabetic neuropathy --L5-S1 disc protrusion Plan And is now off BiPAP and on monitor bed She is lethargic Will change Protonix and Keppra to p.o. Last dialysis May 07 next will be May 09 on D10 since the blood sugar is low and patient on continuous BiPAP Was dialyzed on May 01 and 4 L was removed, due for dialysis today May 03 To recheck the chest x-ray Blood pressure and blood sugar under control Per orders Subjective ROS Limited/Unobtainable: No Constitutional: Reports: malaise, weakness Objective Objective Last 24 Hour Vital Signs Date Time Temp Pulse Resp B/P (MAP) Pulse Ox O2 Delivery O2 Flow Rate FiO2 05/09/19 09:00 Nasal Cannula 2.0 05/09/19 08:27 62 186/68 05/09/19 08:00 97.6 62 18 186/68 (107) 93 05/09/19 07:36 97 Nasal Cannula 2.0 28 05/09/19 05:38 135/76 05/09/19 04:00 98.1 62 20 135/67 (89) 97 62 05/09/19 00:00 97.6 64 18 168/78 (108) 97 64 05/08/19 22:15 150/78 05/08/19 21:06 Nasal Cannula 2.0 05/08/19 20:00 97.2 64 18 160/74 (102) 97 64 05/08/19 19:23 97 Bi-Pap 45 05/08/19 16:00 98.4 60 18 124/59 (80) 97 05/08/19 14:00 157/67 Intake and Output 05/08/19 05/09/19 19:00 07:00 Output Total 6000 ml Balance -6000 ml Hemodialysis UF 6000 ml Current Medications Medications (Trade) Dose Ordered Sig/Gabriele Route PRN Reason Start Time Stop Time Status Last Admin Dose Admin Amoxicillin/ Clavulanate Potassium (Augmentin) 500 mg Q24HRS ORAL 05/06/19 17:00 05/13/19 16:59 05/08/19 16:59 Aspirin (Ecotrin) 81 mg DAILY ORAL 05/07/19 09:00 06/16/19 09:59 05/09/19 08:27 Atorvastatin Calcium (Lipitor) 20 mg BEDTIME ORAL 05/06/19 21:00 06/01/19 20:59 05/08/19 20:27 Dextrose 1,000 ml @ 30 mls/hr Q24H IV 05/06/19 17:30 06/02/19 17:29 05/08/19 16:59 Dextrose (Dextrose 50%) 25 ml Q30M PRN IV Hypoglycemia 05/06/19 16:45 06/01/19 03:44 Dextrose (Dextrose 50%) 50 ml Q30M PRN IV Hypoglycemia 05/06/19 16:45 06/01/19 03:44 Haloperidol Lactate (Haldol) 5 mg Q6H PRN IM Agitation 05/06/19 17:00 06/16/19 16:59 Hydralazine HCl (Apresoline) 25 mg Q4H PRN ORAL SBP > 180 05/07/19 09:49 08/05/19 09:48 05/07/19 10:54 Hydralazine HCl (Apresoline) 50 mg Q8HR ORAL 05/06/19 22:00 06/01/19 09:59 05/09/19 05:38 Levetiracetam (Keppra) 500 mg Q12HR ORAL 05/06/19 21:00 06/20/19 20:59 05/09/19 08:27 Levothyroxine Sodium (Synthroid) 100 mcg DAILY@0630 ORAL 05/07/19 06:30 06/02/19 06:29 05/09/19 05:38 Lorazepam (Ativan 2mg/ml 1ml) 2 mg Q4H PRN IV For Anxiety 05/06/19 17:00 05/12/19 16:59 05/09/19 06:44 Nifedipine (Procardia XL) 90 mg DAILY ORAL 05/07/19 09:00 06/04/19 10:59 05/09/19 08:27 Pantoprazole (Protonix) 40 mg EVERY 12 HOURS ORAL 05/06/19 21:00 06/05/19 20:59 05/09/19 08:27 Risperidone (RisperDAL) 4 mg BEDTIME ORAL 05/06/19 21:00 06/16/19 20:59 05/08/19 20:27 Laboratory Tests 05/09/19 04:30: White Blood Count 4.7L, Red Blood Count 4.27, Hemoglobin 13.4, Hematocrit 40.9, Mean Corpuscular Volume 96, Mean Corpuscular Hemoglobin 31.3H, Mean Corpuscular Hemoglobin Concent 32.7, Red Cell Distribution Width 16.7H, Platelet Count 67L, Mean Platelet Volume 8.5, Neutrophils (%) (Auto) , Lymphocytes (%) (Auto) , Monocytes (%) (Auto) , Eosinophils (%) (Auto) , Basophils (%) (Auto) , Differential Total Cells Counted 100, Neutrophils % (Manual) 60, Lymphocytes % ( Manual) 21, Monocytes % (Manual) 10, Eosinophils % (Manual) 9H, Basophils % ( Manual) 0, Band Neutrophils 0, Platelet Estimate DecreasedL, Platelet Morphology Normal, Anisocytosis 1+, Sodium Level 140, Potassium Level 4.1, Chloride Level 98, Carbon Dioxide Level 31, Anion Gap 11, Blood Urea Nitrogen 24H, Creatinine 4.9H, Estimat Glomerular Filtration Rate 9.1, Glucose Level 113H , Calcium Level 9.6, Total Bilirubin 0.5, Aspartate Amino Transf (AST/SGOT) 14L , Alanine Aminotransferase (ALT/SGPT) 9L, Alkaline Phosphatase 131H, Total Protein 6.6, Albumin 2.8L, Globulin 3.8, Albumin/Globulin Ratio 0.7L Height (Feet): 5 Height (Inches): 4.00 Weight (Pounds): 185 General Appearance: no apparent distress Objective No change Eamon Solis MD May 09, 2019 12:10
--- NOTE | 2019-05-09 13:55 | NUR ---
CASE MANAGEMENT:REVIEW SI;ACUTE RESPIRATORY FAILURE. ESRD. FLUID OVERLOAD. 98.1 62 20 186/68 63% 2L NC BUN 24 CR 4.9 ALK PHOS 131 IS;ASA PO QD NIFEDIPINE PO QD HYDRALAZINE PO Q8 HRS KEPPRA PO BID PROTONIX PO BID AUGMENTIN PO QD IVF D5 @ 30 ML/HR MED SURG STATUS DCP;TO [facility] WHEN BED AVAILABLE
--- NOTE | 2019-05-09 15:11 | Pulmonolgy Critical Care Note ---
Critical Care - Asmt/Plan Assessment/Plan: Pulmonary Progress Note HPI Patient is a 57 year-old female with Past Medical History of ESRD on HD (MWF right upper extremity graft), Obesity, Schizophrenia, Bipolar Disorder, Diabetes , Hypertension, Hyperlipidemia, Chronic anemia. Admitted from SNF with subjective fever, dry cough, redness and tenderness at site of right TMA. Noted to have worsening respiratory distress, improved on NIPPV. Patient not able to provide history Now on floor, less SOB, ABG noted, persistent congestion on CXR LE Cellulitis on Rx Allergies: No Known Allergies Past Medical History: ESRD on HD (MWF right upper extremity graft), Obesity, Schizophrenia, Bipolar Disorder, Diabetes, Hypertension, Hyperlipidemia, Hypothyroidism, Chronic anemia Episodes of hypoglycemia, PRN BiPAP Physical Exam Vital signs noted General Appearance: awake, chronically ill appearing HEENT: atraumatic, anicteric Neck: normal alignment, supple Respiratory/Chest: lungs clear, normal breath sounds, no respiratory distress, no accessory muscle use Cardiovascular/Chest: normal rate, regular rhythm Abdomen: non tender, soft Extremities: non-tender, normal inspection, no edema, LE cellulitis 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 normal Laboratory Tests Noted Assessment/Plan: 57 year-old with history of ESRD on HD MWF through right upper extremity graft, obesity, schizophrenia, bipolar disorder, diabetes, hypertension, hyperlipidemia , chronic anemia who presented to the hospital with fever and cough #Acute hypoxic and hypercarbic respiratory failure, improved #Suspected gram negative pneumonia (HCAP) #Bilateral infiltrates on CXR, pneumonia vs volume overload -AB per ID -HD per Renal #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 -Antibiotics per ID -wound care consulted #ESRD - renal following #Acute metabolic encephalopathy -supportive care -fall and aspiration precautions #Schizophrenia and bipolar -psychiatric following #Hypertensive urgency -Hydralazine, Nifedipine #DM type 2 -ISS - Hypoglycemia IV Dextrose #Epilepsy -Continue Keppra #Hypothyroidism -continue levothyroxine CXR: Interstitial infiltrates cw volume overload Critical Care - Objective Last 24 Hour Vital Signs Date Time Temp Pulse Resp B/P (MAP) Pulse Ox O2 Delivery O2 Flow Rate FiO2 05/09/19 14:15 159/78 05/09/19 12:00 97.5 68 18 159/78 (105) 95 05/09/19 09:00 Nasal Cannula 2.0 05/09/19 08:27 62 186/68 05/09/19 08:00 97.6 62 18 186/68 (107) 93 05/09/19 07:36 97 Nasal Cannula 2.0 28 05/09/19 05:38 135/76 05/09/19 04:00 98.1 62 20 135/67 (89) 97 62 05/09/19 00:00 97.6 64 18 168/78 (108) 97 64 05/08/19 22:15 150/78 05/08/19 21:06 Nasal Cannula 2.0 05/08/19 20:00 97.2 64 18 160/74 (102) 97 64 05/08/19 19:23 97 Bi-Pap 45 05/08/19 16:00 98.4 60 18 124/59 (80) 97 Accucheck: 74 Critical Care - Subjective ROS Limited/Unobtainable: No FI02: 28 Vent Support Mode: BiLevel Sputum Amount: None I&O: Intake and Output 05/08/19 05/09/19 19:00 07:00 Output Total 6000 ml Balance -6000 ml Hemodialysis UF 6000 ml Alejo Hernandez MD May 09, 2019 15:11
--- NOTE | 2019-05-09 15:20 | Surgery Progress Note ---
Surgery Progress Note Subjective Symptoms: improved Objective Last 24 Hour Vital Signs Date Time Temp Pulse Resp B/P (MAP) Pulse Ox O2 Delivery O2 Flow Rate FiO2 05/09/19 14:15 159/78 05/09/19 12:00 97.5 68 18 159/78 (105) 95 05/09/19 09:00 Nasal Cannula 2.0 05/09/19 08:27 62 186/68 05/09/19 08:00 97.6 62 18 186/68 (107) 93 05/09/19 07:36 97 Nasal Cannula 2.0 28 05/09/19 05:38 135/76 05/09/19 04:00 98.1 62 20 135/67 (89) 97 62 05/09/19 00:00 97.6 64 18 168/78 (108) 97 64 05/08/19 22:15 150/78 05/08/19 21:06 Nasal Cannula 2.0 05/08/19 20:00 97.2 64 18 160/74 (102) 97 64 05/08/19 19:23 97 Bi-Pap 45 05/08/19 16:00 98.4 60 18 124/59 (80) 97 I&O Intake and Output 05/08/19 05/09/19 19:00 07:00 Output Total 6000 ml Balance -6000 ml Hemodialysis UF 6000 ml Dressing: dry Wound: clean Cardiovascular: RSR Respiratory: clear Abdomen: soft, non-tender, present bowel sounds Extremities: no edema, no tenderness, no cyanosis Laboratory Tests Test 05/09/19 04:30 White Blood Count 4.7 K/UL (4.8-10.8) L Red Blood Count 4.27 M/UL (4.20-5.40) Hemoglobin 13.4 G/DL (12.0-16.0) Hematocrit 40.9 % (37.0-47.0) Mean Corpuscular Volume 96 FL (80-99) Mean Corpuscular Hemoglobin 31.3 PG (27.0-31.0) H Mean Corpuscular Hemoglobin Concent 32.7 G/DL (32.0-36.0) Red Cell Distribution Width 16.7 % (11.6-14.8) H Platelet Count 67 K/UL (150-450) L Mean Platelet Volume 8.5 FL (6.5-10.1) Neutrophils (%) (Auto) % (45.0-75.0) Lymphocytes (%) (Auto) % (20.0-45.0) Monocytes (%) (Auto) % (1.0-10.0) Eosinophils (%) (Auto) % (0.0-3.0) Basophils (%) (Auto) % (0.0-2.0) Differential Total Cells Counted 100 Neutrophils % (Manual) 60 % (45-75) Lymphocytes % (Manual) 21 % (20-45) Monocytes % (Manual) 10 % (1-10) Eosinophils % (Manual) 9 % (0-3) H Basophils % (Manual) 0 % (0-2) Band Neutrophils 0 % (0-8) Platelet Estimate Decreased L Platelet Morphology Normal Anisocytosis 1+ Sodium Level 140 MMOL/L (136-145) Potassium Level 4.1 MMOL/L (3.5-5.1) Chloride Level 98 MMOL/L (98-107) Carbon Dioxide Level 31 MMOL/L (21-32) Anion Gap 11 mmol/L (5-15) Blood Urea Nitrogen 24 mg/dL (7-18) H Creatinine 4.9 MG/DL (0.55-1.30) H Estimat Glomerular Filtration Rate 9.1 mL/min (>60) Glucose Level 113 MG/DL (74-106) H Calcium Level 9.6 MG/DL (8.5-10.1) Total Bilirubin 0.5 MG/DL (0.2-1.0) Aspartate Amino Transf (AST/SGOT) 14 U/L (15-37) L Alanine Aminotransferase (ALT/SGPT) 9 U/L (12-78) L Alkaline Phosphatase 131 U/L (46-116) H Total Protein 6.6 G/DL (6.4-8.2) Albumin 2.8 G/DL (3.4-5.0) L Globulin 3.8 g/dL Albumin/Globulin Ratio 0.7 (1.0-2.7) L Plan Problems: (1) Fluid overload Assessment & Plan: Patient with fluid overload BNP elevated pending cardiology input Likely respiratory component from this as well explaining URI Diurese Trend labs Pulmonary vascular congestion suspected with prominent pulmonary vascularity and interstitial densities with cardiomegaly. Costophrenic angles are well- visualized. Bones may be slightly osteopenic. Aorta is calcified. IMPRESSION: Suspected CHF (2) Lower extremity cellulitis Assessment & Plan: Patient with right TMA prior wound postoperative care had been provided for significant period time as it was improving. Some wound dehiscence identified. Mild cellulitis around the wound site. Antibiotics per infectious disease We will monitor closely over the next 24 hours if further surgical dimension necessary Furthermore identified to have a sacral deep tissue injury upon admission area of erythema 3 cm x 3 cm with superficial epidermal skin loss no dermal opening will monitor closely turn every 2 hours local care with skin protectant and foam dressing Thank you will follow with recommendations (3) Foot ulcer due to secondary DM Assessment & Plan: s/p tma r FINDINGS: Bones/joints: Status post transmetatarsal amputation. No acute fracture or dislocation seen in the hindfoot or midfoot. Incidental note of small plantar calcaneal bony spur and small adjacent enthesophyte. Soft tissues: Unremarkable. No radiopaque foreign body. Vasculature: Scattered vascular calcifications throughout the foot and ankle. IMPRESSION: 1. No acute findings. 2. Status post transmetatarsal amputation. Vic Wise May 09, 2019 15:20
[2019-05-09 16:00] VITALS: BP 156/84
[2019-05-09] MEDS: Dextrose 10% 1,000 ML IV SCH (17:34)
--- NOTE | 2019-05-09 19:09 | NUR ---
HAND-OFF: Report given to CHEPE Abad.
--- NOTE | 2019-05-09 19:28 | NUR ---
NURSE NOTES: RN called [facility] and requested HD treatment for 05/10/2019.
[2019-05-09 20:00] VITALS: BP 167/78
[2019-05-09] MEDS: Atorvastatin 20mg tab ORAL SCH (20:31)
--- NOTE | 2019-05-09 22:15 | Progress Note ---
DATE: 05/09/2019 SUBJECTIVE: The patient is doing well. Asleep, arousable, confused, disoriented. Awaiting placement. No agitation today. MENTAL STATUS EXAMINATION: Waxing and waning consciousness. Mood is neutral. Affect is flat. Thought process is concrete. Thought content, no suicidal or homicidal ideation. ASSESSMENT: Stable. PLAN: 1. We will continue current medication. 2. Provide the patient with reality orientation and supportive therapy. Blanka Beckett M.D. DR: TY JOB#: [id number] CC:
[2019-05-10] VITALS: BP 129/52
[2019-05-10] MEDS: LORazepam Inj 2mg/ml 1ml IV PRN ×4 (00:23→20:59)
[2019-05-10 04:00] VITALS: BP 143/71
[2019-05-10] MEDS: HydrALAZINE 50mg tab ORAL SCH ×3 (06:27→20:58)
--- NOTE | 2019-05-10 07:20 | NUR ---
NURSE NOTES: Received report from CHEPE Subramanian (Rita). Patient in bed, sleeping. On nasal cannula, no signs of distress or labored breathing. IV intact, patent, and infusing IV fluids. Bed in lowest position with call light in reach and side rails up x3. Will continue with plan of care.
--- NOTE | 2019-05-10 07:27 | NUR ---
HAND-OFF: Report given to Maria C MO. Endorsed patient is on fall precautions, and that [facility] nephrology was called to schedule a treatment onn 05/10/2019, message was left for Patrick.
[2019-05-10 08:00] VITALS: BP 131/63
--- NOTE | 2019-05-10 08:09 | NUR ---
NURSE NOTES: Spoke with CHEPE Bryson from [facility] dialysis. Patient will receive dialysis this morning.
[2019-05-10] MEDS: Aspirin EC 81mg tab ORAL SCH (08:33)
[2019-05-10 11:07] LABS: HEMATOCRIT 39.1 % (37.0-47.0); HEMOGLOBIN 12.9 G/DL (12.0-16.0); MEAN CORPUSCULAR VOLUME 96 FL (80-99); PLATELET COUNT 60 K/UL (150-450); RED BLOOD COUNT 4.09 M/UL (4.20-5.40); RED CELL DISTRIBUTION WIDTH 16.3 % (11.6-14.8); WHITE BLOOD COUNT 6.7 K/UL (4.8-10.8)
[2019-05-10 11:10] LABS: ANION GAP 15 mmol/L (5-15); BLOOD UREA NITROGEN 34 mg/dL (7-18); CALCIUM 9.7 MG/DL (8.5-10.1); CARBON DIOXIDE 26 MMOL/L (21-32); CHLORIDE 95 MMOL/L (98-107); POTASSIUM 4.1 MMOL/L (3.5-5.1); SODIUM 136 MMOL/L (136-145)
[2019-05-10 11:54] LABS: ALANINE AMINOTRANSFERASE 16 U/L (12-78); ALBUMIN 2.8 G/DL (3.4-5.0); ALKALINE PHOSPHATASE 131 U/L (46-116); ASPARTATE AMINO TRANSFERASE 14 U/L (15-37); BILIRUBIN,DIRECT 0.2 MG/DL (0.0-0.3); BILIRUBIN,TOTAL 0.6 MG/DL (0.2-1.0); PHOSPHORUS 8.7 MG/DL (2.5-4.9)
[2019-05-10 12:00] VITALS: BP 127/63
--- NOTE | 2019-05-10 13:30 | NUR ---
pt received hd via right av fistula by trung smith from 1030 to 1330 tolerated well vs stable uf 3000ml endorsed to oleksandr with clot time a;5min v;5min strong thrill and bruit
--- NOTE | 2019-05-10 13:47 | Pulmonolgy Critical Care Note ---
Critical Care - Asmt/Plan Assessment/Plan: Pulmonary Progress Note HPI Patient is a 57 year-old female with Past Medical History of ESRD on HD (MWF right upper extremity graft), Obesity, Schizophrenia, Bipolar Disorder, Diabetes , Hypertension, Hyperlipidemia, Chronic anemia. Admitted from SNF with subjective fever, dry cough, redness and tenderness at site of right TMA. Noted to have worsening respiratory distress, improved on NIPPV. Patient not able to provide history Now on floor, less SOB, ABG noted, persistent congestion on CXR LE Cellulitis on Rx Allergies: No Known Allergies Past Medical History: ESRD on HD (MWF right upper extremity graft), Obesity, Schizophrenia, Bipolar Disorder, Diabetes, Hypertension, Hyperlipidemia, Hypothyroidism, Chronic anemia Episodes of hypoglycemia, PRN BiPAP Physical Exam Vital signs noted General Appearance: awake, chronically ill appearing HEENT: atraumatic, anicteric Neck: normal alignment, supple Respiratory/Chest: lungs clear, normal breath sounds, no respiratory distress, no accessory muscle use Cardiovascular/Chest: normal rate, regular rhythm Abdomen: non tender, soft Extremities: non-tender, normal inspection, no edema, LE cellulitis Neurologic: roaster operator II-XII grossly normal Laboratory Tests Noted Assessment/Plan: 57 year-old with history of ESRD on HD MWF through right upper extremity graft, obesity, schizophrenia, bipolar disorder, diabetes, hypertension, hyperlipidemia , chronic anemia who presented to the hospital with fever and cough #Acute hypoxic and hypercarbic respiratory failure, improved #Suspected gram negative pneumonia (HCAP) #Bilateral infiltrates on CXR, pneumonia vs volume overload -AB per ID -HD per Renal #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 -Antibiotics per ID -wound care consulted #ESRD - renal following #Acute metabolic encephalopathy -supportive care -fall and aspiration precautions #Schizophrenia and bipolar -psychiatric following #Hypertensive urgency -Hydralazine, Nifedipine #DM type 2 -ISS - Hypoglycemia IV Dextrose #Epilepsy -Continue Keppra #Hypothyroidism -continue levothyroxine CXR: Interstitial infiltrates cw volume overload Critical Care - Objective Last 24 Hour Vital Signs Date Time Temp Pulse Resp B/P (MAP) Pulse Ox O2 Delivery O2 Flow Rate FiO2 05/10/19 12:00 97.9 67 18 127/63 (84) 96 05/10/19 09:00 Nasal Cannula 2.0 05/10/19 08:33 71 131/63 3/21/20 08:00 98.8 71 18 131/63 (85) 95 05/10/19 06:27 137/74 05/10/19 04:00 98.4 66 17 143/71 (95) 95 05/10/19 00:00 97.9 75 17 129/52 (77) 95 05/09/19 22:10 150/88 05/09/19 21:02 Nasal Cannula 2.0 05/09/19 20:00 97.8 74 18 167/78 (107) 98 05/09/19 18:44 96 Nasal Cannula 2.0 28 05/09/19 16:00 98.0 73 18 156/84 (108) 97 05/09/19 14:15 159/78 Accucheck: 80 Critical Care - Subjective ROS Limited/Unobtainable: No FI02: 28 Vent Support Mode: BiLevel Sputum Amount: None I&O: Intake and Output 05/09/19 05/10/19 19:00 07:00 Intake Total 1260 ml Balance 1260 ml Intake Oral 960 ml IV Total 300 ml # Voids 3 Alejo Hernandez MD May 10, 2019 13:47
--- NOTE | 2019-05-10 14:56 | General Progress Note ---
Assessment/Plan Status: stable Assessment/Plan: 57 year-old with history of ESRD on HD MWF through right upper extremity graft, obesity, schizophrenia, bipolar disorder, diabetes, hypertension, hyperlipidemia , chronic anemia who presented to the hospital with fever and cough #Acute hypoxic and hypercarbic respiratory failure #Suspected gram negative pneumonia (HCAP) #Bilateral infiltrates on CXR -transferred to telemetry (05/03) from ICU. -DNR/DNI -continue supplemental oxygen, titrate down as tolerated. -Pulmonology following #Septic shock - resolved #Hypotension - resolved #Hypertension #Hypertensive urgency - resolved. -cont nifedipine -cont. clonidine -hydralazine prn for SBP > 160. -s/p midodrine 10 mg TID -> 5 mg -> off -s/p dopamine, albumin 25 g x1. #S/p right TMA with bilateral LE cellulitis -Cadwell x 1 ordered for pain -Surgery following #ESRD #Fluid overload -Nephrology following -Monitor electrolytes -Phosphate binders -HD per Renal #Acute metabolic encephalopathy -will provide supportive care -fall and aspiration precautions -treat underlying acute medical issues #Schizophrenia and bipolar -continue outpatient psychiatric regimen -Psych following -Haldol prn -risperidone qhs. #Hypertensive urgency -Continue hydralazine, Nifedipine #DM type 2 -ISS #HLD -continue ASA -continue statin. #Epilepsy -Continue Keppra #Hypothyroidism -continue levothyroxine #Moderate-severe protein calorie malnutrition -weight measurement -encourage PO intake. Dispo: Pending bed availability at [facility] Time spent on encounter: 36 mins, >50% on counseling, coordination of care. Additional 35 mins spent chart review. Time of note doesn't reflect time of encounter. Subjective Allergies: Coded Allergies: No Known Allergies (Verified , 08/23/06) Subjective Follow up for septic shock, gram negative pneumonia, LE cellulitis No acute medical issues overnight Patient was to be discharged to [facility] but no bed available Bed not available today either pt was agitated this AM, nurse gave pt ativan, pt currently resting comfortably in bed Objective Last 24 Hour Vital Signs Date Time Temp Pulse Resp B/P (MAP) Pulse Ox O2 Delivery O2 Flow Rate FiO2 05/10/19 14:00 127/63 05/10/19 12:00 97.9 67 18 127/63 (84) 96 05/10/19 09:00 Nasal Cannula 2.0 05/10/19 08:33 71 131/63 05/10/19 08:00 98.8 71 18 131/63 (85) 95 05/10/19 06:27 137/74 05/10/19 04:00 98.4 66 17 143/71 (95) 95 05/10/19 00:00 97.9 75 17 129/52 (77) 95 05/09/19 22:10 150/88 05/09/19 21:02 Nasal Cannula 2.0 05/09/19 20:00 97.8 74 18 167/78 (107) 98 05/09/19 18:44 96 Nasal Cannula 2.0 28 05/09/19 16:00 98.0 73 18 156/84 (108) 97 Intake and Output 05/09/19 05/10/19 19:00 07:00 Intake Total 1260 ml Balance 1260 ml Intake Oral 960 ml IV Total 300 ml # Voids 3 Laboratory Tests 05/10/19 10:15: White Blood Count 6.7, Red Blood Count 4.09L, Hemoglobin 12.9, Hematocrit 39.1, Mean Corpuscular Volume 96, Mean Corpuscular Hemoglobin 31.4H, Mean Corpuscular Hemoglobin Concent 32.9, Red Cell Distribution Width 16.3H, Platelet Count 60L, Mean Platelet Volume 8.3, Neutrophils (%) (Auto) , Lymphocytes (%) (Auto) , Monocytes (%) (Auto) , Eosinophils (%) (Auto) , Basophils (%) (Auto) , Neutrophils % (Manual) [Pending], Lymphocytes % (Manual) [Pending], Platelet Estimate [Pending], Platelet Morphology [Pending], Sodium Level 136, Potassium Level 4.1, Chloride Level 95L, Carbon Dioxide Level 26, Anion Gap 15, Blood Urea Nitrogen 34H, Creatinine 6.0H, Estimat Glomerular Filtration Rate 7.2, Glucose Level 102, Calcium Level 9.7, Phosphorus Level 8.7H, Magnesium Level 1.9 , Total Bilirubin 0.6, Direct Bilirubin 0.2, Aspartate Amino Transf (AST/SGOT) 14L, Alanine Aminotransferase (ALT/SGPT) 16, Alkaline Phosphatase 131H, Total Protein 6.4, Albumin 2.8L Height (Feet): 5 Height (Inches): 4.00 Weight (Pounds): 185 Objective General Appearance: NAD, sleeping comfortably in bed Neck: normal alignment Cardiovascular: normal rate, regular rhythm Respiratory/Chest: lungs clear, normal breath sounds Abdomen: non tender, soft Ext: RLE w/bandage, c/d/i, RUE bandage c/d/i Latha Sidhu M.D. May 10, 2019 14:55
[2019-05-10 16:00] VITALS: BP 132/76
--- NOTE | 2019-05-10 16:17 | Infectious Diseases Prog Note ---
Assessment/Plan Assessment/Plan ASSESSMENT AND PLAN: 1. pneumonia, sepsis, sirs, bilateral leg cellulitis, right foot wound, hypothermia, sob, pulmonary edema - augmentin x 1 day - patient refusing iv - monitor labs and chest x-ray - clinically improved - pulmonary tx/support - sc-nf, mycoplasma and legionella negative - stool studies - negative 2. End-stage renal disease, on hemodialysis. 3. Right TMA with some wound dehiscence. 4. Wound care protocol. 5. ICU care. 6. Waller. 7. End-stage renal disease, on hemodialysis treatment per Renal and Medicine. 8. Right upper extremity graft. 9. Obesity. 10. Schizophrenia and bipolar disease. 11. Diabetes. 12. Hypertension. 13. Hyperlipidemia. 14. Anemia. 15. Blood sugar and blood pressure treatment for diabetes and hypertension per primary care team. 16. Hypothyroidism. 17. Thyroid supplementation. 18. Encephalopathy. 19. Epilepsy. 20. Past medical history noted 21. No known drug allergies. 22. Social history is negative. 23. Family history is noncontributory. 24. MAR is noted. 25. Case was discussed with RN. 26. vre colonization Subjective Constitutional: Reports: fatigue; Denies: fever HEENT: Denies: congestion Respiratory: Denies: shortness of breath Cardiovascular: Denies: chest pain Gastrointestinal/Abdominal: Denies: nausea, vomiting, diarrhea Genitourinary: Reports: other - + waller Psychiatric: Denies: depression Skin: Denies: rash Hematologic: Denies: bleeding Musculoskeletal: Denies: pain Allergies: Coded Allergies: No Known Allergies (Verified , 08/23/06) Objective Vital Signs Last 24 Hour Vital Signs Date Time Temp Pulse Resp B/P (MAP) Pulse Ox O2 Delivery O2 Flow Rate FiO2 05/10/19 14:00 127/63 05/10/19 12:00 97.9 67 18 127/63 (84) 96 05/10/19 09:00 Nasal Cannula 2.0 05/10/19 08:33 71 131/63 05/10/19 08:00 98.8 71 18 131/63 (85) 95 05/10/19 06:27 137/74 05/10/19 04:00 98.4 66 17 143/71 (95) 95 05/10/19 00:00 97.9 75 17 129/52 (77) 95 05/09/19 22:10 150/88 05/09/19 21:02 Nasal Cannula 2.0 05/09/19 20:00 97.8 74 18 167/78 (107) 98 05/09/19 18:44 96 Nasal Cannula 2.0 28 Height (Feet): 5 Height (Inches): 4.00 Weight (Pounds): 185 General Appearance: no acute distress HEENT: normocephalic, atraumatic, anicteric, mucous membranes moist Respiratory/Chest: no respiratory distress, no accessory muscle use, crackles/ rales, rhonchi - bilaterally Cardiovascular: normal rate, regular rhythm, no gallop/murmur, no JVD Abdomen: normal bowel sounds, soft, non tender, no organomegaly, non distended Genitourinary: other - no waller Extremities: other - no cellulitis Skin: no rash Neurologic/Psychiatric: spice fumigator II-XII grossly normal, alert, responsive Lymphatic: no neck adenopathy Musculoskeletal: no effusion Objective Chest x-ray - 05/04/19 - TECHNIQUE: Frontal view of the chest. COMPARISON: Chest x-rays dated 05/01/19 FINDINGS: Lungs: Pulmonary vascular congestion. Subsegmental atelectasis versus infiltrates in bilateral lung bases. Pleural space: Bilateral mild to moderate layering pleural effusions, greater on the right, worsened compared to the prior exam. Heart: Unremarkable. No cardiomegaly. Mediastinum: Unremarkable. Bones/joints: Unremarkable. Vasculature: Atherosclerotic calcifications within the aortic arch. Tubes, lines and devices: Telemetry leads overlie the thorax. IMPRESSION: 1. Bilateral mild to moderate layering pleural effusions, greater on the right, worsened compared to the prior exam. 2. Pulmonary vascular congestion, not significantly changed. 3. Subsegmental atelectasis versus infiltrates in bilateral lung bases. x-ray - right foot: Procedure: XRAY Foot 2v R EXAM: XR Right Foot, 2 Views CLINICAL HISTORY: INFECT TECHNIQUE: Frontal and lateral views of the right foot. COMPARISON: Right foot x-rays dated 11/11/17 FINDINGS: Bones/joints: Status post transmetatarsal amputation. No acute fracture or dislocation seen in the hindfoot or midfoot. Incidental note of small plantar calcaneal bony spur and small adjacent enthesophyte. Soft tissues: Unremarkable. No radiopaque foreign body. Vasculature: Scattered vascular calcifications throughout the foot and ankle. IMPRESSION: 1. No acute findings. 2. Status post transmetatarsal amputation. If there is clinical concern for osteomyelitis, MRI or nuclear medicine bone scan should be considered. Chest x-ray - 05/07/19 - Procedure: XRAY Chest 1v Indication: Dyspnea Comparison: 05/04/2019 A single view chest radiograph was obtained. Findings: Interstitial edema demonstrated. There is a right pleural effusion suspected. Heart is enlarged. IMPRESSION: Slightly worsening interstitial edema. Microbiology Date/Time Source Procedure Growth Status 05/01/19 21:00 Blood Blood Culture - Final NO GROWTH AFTER 5 DAYS Complete 05/04/19 03:15 Sputum Expectorated Gram Stain - Final Complete 05/04/19 03:15 Sputum Expectorated Sputum Culture - Final NORMAL UPPER RESPIRATORY MOE PRESENT Complete 05/04/19 03:15 Stool Ova and Parasites - Final Complete 05/04/19 03:15 Stool Ova and Parasite Result 1 - Final Complete 05/01/19 23:10 Rectum VRE Culture - Final Enterococcus Faecalis - Vre Complete Laboratory Tests Test 05/10/19 10:15 White Blood Count 6.7 K/UL (4.8-10.8) Red Blood Count 4.09 M/UL (4.20-5.40) L Hemoglobin 12.9 G/DL (12.0-16.0) Hematocrit 39.1 % (37.0-47.0) Mean Corpuscular Volume 96 FL (80-99) Mean Corpuscular Hemoglobin 31.4 PG (27.0-31.0) H Mean Corpuscular Hemoglobin Concent 32.9 G/DL (32.0-36.0) Red Cell Distribution Width 16.3 % (11.6-14.8) H Platelet Count 60 K/UL (150-450) L Mean Platelet Volume 8.3 FL (6.5-10.1) Neutrophils (%) (Auto) % (45.0-75.0) Lymphocytes (%) (Auto) % (20.0-45.0) Monocytes (%) (Auto) % (1.0-10.0) Eosinophils (%) (Auto) % (0.0-3.0) Basophils (%) (Auto) % (0.0-2.0) Differential Total Cells Counted 100 Neutrophils % (Manual) 66 % (45-75) Lymphocytes % (Manual) 20 % (20-45) Monocytes % (Manual) 6 % (1-10) Eosinophils % (Manual) 8 % (0-3) H Basophils % (Manual) 0 % (0-2) Band Neutrophils 0 % (0-8) Platelet Estimate Decreased L Platelet Morphology Normal Anisocytosis 1+ Sodium Level 136 MMOL/L (136-145) Potassium Level 4.1 MMOL/L (3.5-5.1) Chloride Level 95 MMOL/L (98-107) L Carbon Dioxide Level 26 MMOL/L (21-32) Anion Gap 15 mmol/L (5-15) Blood Urea Nitrogen 34 mg/dL (7-18) H Creatinine 6.0 MG/DL (0.55-1.30) H Estimat Glomerular Filtration Rate 7.2 mL/min (>60) Glucose Level 102 MG/DL (74-106) Calcium Level 9.7 MG/DL (8.5-10.1) Phosphorus Level 8.7 MG/DL (2.5-4.9) H Magnesium Level 1.9 MG/DL (1.8-2.4) Total Bilirubin 0.6 MG/DL (0.2-1.0) Direct Bilirubin 0.2 MG/DL (0.0-0.3) Aspartate Amino Transf (AST/SGOT) 14 U/L (15-37) L Alanine Aminotransferase (ALT/SGPT) 16 U/L (12-78) Alkaline Phosphatase 131 U/L (46-116) H Total Protein 6.4 G/DL (6.4-8.2) Albumin 2.8 G/DL (3.4-5.0) L Current Medications Medications (Trade) Dose Ordered Sig/Gabriele Route PRN Reason Start Time Stop Time Status Last Admin Dose Admin Amoxicillin/ Clavulanate Potassium (Augmentin) 500 mg ONCE ORAL 05/10/19 18:00 05/10/19 20:00 Amoxicillin/ Clavulanate Potassium (Augmentin) 500 mg Q24HRS ORAL 05/06/19 17:00 05/13/19 16:59 05/09/19 17:34 Aspirin (Ecotrin) 81 mg DAILY ORAL 05/07/19 09:00 06/16/19 09:59 05/09/19 08:27 Atorvastatin Calcium (Lipitor) 20 mg BEDTIME ORAL 05/06/19 21:00 06/01/19 20:59 05/09/19 20:31 Dextrose 1,000 ml @ 30 mls/hr Q24H IV 05/06/19 17:30 06/02/19 17:29 05/09/19 17:34 Dextrose (Dextrose 50%) 25 ml Q30M PRN IV Hypoglycemia 05/06/19 16:45 06/01/19 03:44 Dextrose (Dextrose 50%) 50 ml Q30M PRN IV Hypoglycemia 05/06/19 16:45 06/01/19 03:44 Haloperidol Lactate (Haldol) 5 mg Q6H PRN IM Agitation 05/06/19 17:00 06/16/19 16:59 Hydralazine HCl (Apresoline) 25 mg Q4H PRN ORAL SBP > 180 05/07/19 09:49 08/05/19 09:48 05/07/19 10:54 Hydralazine HCl (Apresoline) 50 mg Q8HR ORAL 05/06/19 22:00 06/01/19 09:59 05/10/19 06:27 Levetiracetam (Keppra) 500 mg Q12HR ORAL 05/06/19 21:00 06/20/19 20:59 05/10/19 08:40 Levothyroxine Sodium (Synthroid) 100 mcg DAILY@0630 ORAL 05/07/19 06:30 06/02/19 06:29 05/10/19 06:27 Lorazepam (Ativan 2mg/ml 1ml) 2 mg Q4H PRN IV For Anxiety 05/06/19 17:00 05/12/19 16:59 05/10/19 08:40 Nifedipine (Procardia XL) 90 mg DAILY ORAL 05/07/19 09:00 06/04/19 10:59 05/09/19 08:27 Pantoprazole (Protonix) 40 mg EVERY 12 HOURS ORAL 05/06/19 21:00 06/05/19 20:59 05/10/19 08:40 Risperidone (RisperDAL) 4 mg BEDTIME ORAL 05/06/19 21:00 06/16/19 20:59 05/09/19 20:31 Nehal Nolasco MD May 10, 2019 16:17
[2019-05-10] MEDS: Dextrose 10% 1,000 ML IV SCH (17:22)
--- NOTE | 2019-05-10 19:45 | NUR ---
NURSE NOTES: Pt is in bed, awake and verbal. Pt is screaming " nurse" constantly. Pt is being attended to a lot. Pt keeps on asking for food. Pt is cleaned and bed linen changed. Fall precaution in place. Bed alarm on. Bed locked low in position, side rails up and call light within reach. Pt will be monitored.
--- NOTE | 2019-05-10 19:50 | Surgery Progress Note ---
Surgery Progress Note Subjective Additional Comments Patient seen and examined bedside. Improving. No nausea vomiting fever chills. Labs noted. Continues to have multiple skin lesions but with right upper extremity improving. Objective Last 24 Hour Vital Signs Date Time Temp Pulse Resp B/P (MAP) Pulse Ox O2 Delivery O2 Flow Rate FiO2 05/10/19 16:00 97.6 77 18 132/76 (94) 95 05/10/19 14:00 127/63 05/10/19 12:00 97.9 67 18 127/63 (84) 96 05/10/19 09:00 Nasal Cannula 2.0 05/10/19 08:33 71 131/63 05/10/19 08:00 98.8 71 18 131/63 (85) 95 05/10/19 06:27 137/74 05/10/19 04:00 98.4 66 17 143/71 (95) 95 05/10/19 00:00 97.9 75 17 129/52 (77) 95 05/09/19 22:10 150/88 05/09/19 21:02 Nasal Cannula 2.0 05/09/19 20:00 97.8 74 18 167/78 (107) 98 I&O Intake and Output 05/09/19 05/10/19 19:00 07:00 Intake Total 1260 ml Balance 1260 ml Intake Oral 960 ml IV Total 300 ml # Voids 3 Dressing: other Wound: other Drains: other Cardiovascular: RSR Respiratory: decreased breath sounds Abdomen: soft, non-tender, present bowel sounds Extremities: no tenderness, no cyanosis Laboratory Tests Test 05/10/19 10:15 White Blood Count 6.7 K/UL (4.8-10.8) Red Blood Count 4.09 M/UL (4.20-5.40) L Hemoglobin 12.9 G/DL (12.0-16.0) Hematocrit 39.1 % (37.0-47.0) Mean Corpuscular Volume 96 FL (80-99) Mean Corpuscular Hemoglobin 31.4 PG (27.0-31.0) H Mean Corpuscular Hemoglobin Concent 32.9 G/DL (32.0-36.0) Red Cell Distribution Width 16.3 % (11.6-14.8) H Platelet Count 60 K/UL (150-450) L Mean Platelet Volume 8.3 FL (6.5-10.1) Neutrophils (%) (Auto) % (45.0-75.0) Lymphocytes (%) (Auto) % (20.0-45.0) Monocytes (%) (Auto) % (1.0-10.0) Eosinophils (%) (Auto) % (0.0-3.0) Basophils (%) (Auto) % (0.0-2.0) Differential Total Cells Counted 100 Neutrophils % (Manual) 66 % (45-75) Lymphocytes % (Manual) 20 % (20-45) Monocytes % (Manual) 6 % (1-10) Eosinophils % (Manual) 8 % (0-3) H Basophils % (Manual) 0 % (0-2) Band Neutrophils 0 % (0-8) Platelet Estimate Decreased L Platelet Morphology Normal Anisocytosis 1+ Sodium Level 136 MMOL/L (136-145) Potassium Level 4.1 MMOL/L (3.5-5.1) Chloride Level 95 MMOL/L (98-107) L Carbon Dioxide Level 26 MMOL/L (21-32) Anion Gap 15 mmol/L (5-15) Blood Urea Nitrogen 34 mg/dL (7-18) H Creatinine 6.0 MG/DL (0.55-1.30) H Estimat Glomerular Filtration Rate 7.2 mL/min (>60) Glucose Level 102 MG/DL (74-106) Calcium Level 9.7 MG/DL (8.5-10.1) Phosphorus Level 8.7 MG/DL (2.5-4.9) H Magnesium Level 1.9 MG/DL (1.8-2.4) Total Bilirubin 0.6 MG/DL (0.2-1.0) Direct Bilirubin 0.2 MG/DL (0.0-0.3) Aspartate Amino Transf (AST/SGOT) 14 U/L (15-37) L Alanine Aminotransferase (ALT/SGPT) 16 U/L (12-78) Alkaline Phosphatase 131 U/L (46-116) H Total Protein 6.4 G/DL (6.4-8.2) Albumin 2.8 G/DL (3.4-5.0) L Plan Problems: (1) Fluid overload Assessment & Plan: Patient with fluid overload BNP elevated pending cardiology input Likely respiratory component from this as well explaining URI Diurese Trend labs Pulmonary vascular congestion suspected with prominent pulmonary vascularity and interstitial densities with cardiomegaly. Costophrenic angles are well- visualized. Bones may be slightly osteopenic. Aorta is calcified. IMPRESSION: Suspected CHF (2) Lower extremity cellulitis Assessment & Plan: Patient with right TMA prior wound postoperative care had been provided for significant period time as it was improving. Some wound dehiscence identified. Mild cellulitis around the wound site. Antibiotics per infectious disease We will monitor closely over the next 24 hours if further surgical dimension necessary Furthermore identified to have a sacral deep tissue injury upon admission area of erythema 3 cm x 3 cm with superficial epidermal skin loss no dermal opening will monitor closely turn every 2 hours local care with skin protectant and foam dressing Thank you will follow with recommendations (3) Foot ulcer due to secondary DM Assessment & Plan: s/p tma r FINDINGS: Bones/joints: Status post transmetatarsal amputation. No acute fracture or dislocation seen in the hindfoot or midfoot. Incidental note of small plantar calcaneal bony spur and small adjacent enthesophyte. Soft tissues: Unremarkable. No radiopaque foreign body. Vasculature: Scattered vascular calcifications throughout the foot and ankle. IMPRESSION: 1. No acute findings. 2. Status post transmetatarsal amputation. Vic Wise May 10, 2019 19:50
[2019-05-10 20:00] VITALS: BP 152/68
[2019-05-10] MEDS: Atorvastatin 20mg tab ORAL SCH (20:59)
--- NOTE | 2019-05-10 23:30 | NUR ---
NURSE NOTES: Pt is in bed, asleep.
[2019-05-11] VITALS: BP 152/84
[2019-05-11] MEDS: LORazepam Inj 2mg/ml 1ml IV PRN (02:40)
[2019-05-11 04:00] VITALS: BP 158/84
[2019-05-11] MEDS: Haloperidol 5mg/ml Inj IM PRN ×3 (06:15→21:57)
[2019-05-11] MEDS: HydrALAZINE 50mg tab ORAL SCH ×3 (06:15→21:18)
--- NOTE | 2019-05-11 07:10 | NUR ---
HAND-OFF: Report given to CHEPE Lombardi.Informed that patient is Fall Risk.
--- NOTE | 2019-05-11 07:15 | NUR ---
NURSE NOTES: Received report from CHEPE Tran. Patient in bed, A&Ox1. On nasal cannula, no signs of distress or labored breathing. IV intact, patent, and infusing IV fluids. Bed in lowest position with call light in reach. Side rails up x3. Will continue with plan of care.
[2019-05-11 08:00] VITALS: BP 130/69
[2019-05-11] MEDS: Aspirin EC 81mg tab ORAL SCH (09:05)
--- NOTE | 2019-05-11 10:22 | NUR ---
NURSE NOTES: Notified Dr. Sidhu in person that first set of AM labs were clotted and lab came back for a second draw that the patient adamantly refused. No new orders given at this time.
--- NOTE | 2019-05-11 11:03 | Nephrology Progress Note ---
Assessment/Plan Problem List: (1) ESRD (end stage renal disease) on dialysis (2) CHF (congestive heart failure) (3) Fluid overload (4) Schizoaffective disorder, bipolar type (5) Diabetes mellitus, type II Assessment Admitted for respiratory distress and CHF and volume overload Unknown date of her last dialysis Conditions: (1) ESRD (end stage renal disease) on dialysis (2) Altered level of consciousness / Encephalopathy metabolic (3) Schizoaffective disorder, bipolar type (4) h/o Hypothyroidism (5) Anemia in chronic renal disease Also: - Cellulitis both LE - End-stage renal disease, on hemodialysis. fistula right arm - HTN / Pulmonary HTN - Diabetes type 2. Others - Morbid obesity. - H/O Colon Cancer - H/O Hep C - H/O Depression and Bipolar disease - Psych disease uncoaporative --Bilateral leg numbness --diabetic neuropathy --L5-S1 disc protrusion Plan Start phosphorus binders is now off BiPAP and on monitor bed She is lethargic Will change Protonix and Keppra to p.o. Last dialysis May 07 next will be May 09 on D10 since the blood sugar is low and patient on continuous BiPAP Was dialyzed on May 01 and 4 L was removed, due for dialysis today May 03 To recheck the chest x-ray Blood pressure and blood sugar under control Per orders Subjective ROS Limited/Unobtainable: No Constitutional: Reports: malaise, weakness Objective Objective Last 24 Hour Vital Signs Date Time Temp Pulse Resp B/P (MAP) Pulse Ox O2 Delivery O2 Flow Rate FiO2 05/11/19 09:05 73 130/69 05/11/19 09:00 Nasal Cannula 2.0 05/11/19 08:00 98.3 73 18 130/69 (89) 97 05/11/19 08:00 95 Nasal Cannula 3.0 32 05/11/19 06:15 158/84 05/11/19 04:00 98.4 100 18 158/84 (108) 96 05/11/19 00:00 98.2 74 18 152/84 (106) 96 05/10/19 21:00 Nasal Cannula 2.0 05/10/19 20:58 152/68 05/10/19 20:00 98.0 68 18 152/68 (96) 96 05/10/19 19:57 96 Nasal Cannula 2.0 28 05/10/19 16:00 97.6 77 18 132/76 (94) 95 05/10/19 14:00 127/63 05/10/19 12:00 97.9 67 18 127/63 (84) 96 Intake and Output 05/10/19 05/11/19 19:00 07:00 Intake Total 580 ml 840 ml Output Total 3000 ml Balance -2420 ml 840 ml Intake Oral 240 ml IV Total 180 ml 360 ml Other 400 ml 240 ml Hemodialysis UF 3000 ml # Voids 2 # Bowel Movements 1 Height (Feet): 5 Height (Inches): 4.00 Weight (Pounds): 184 General Appearance: no apparent distress Cardiovascular: normal rate Respiratory/Chest: decreased breath sounds Abdomen: soft Objective No change Eamon Solis MD May 11, 2019 11:03
--- NOTE | 2019-05-11 11:10 | Pulmonolgy Critical Care Note ---
Critical Care - Asmt/Plan Assessment/Plan: Pulmonary Progress Note HPI Patient is a 57 year-old female with Past Medical History of ESRD on HD (MWF right upper extremity graft), Obesity, Schizophrenia, Bipolar Disorder, Diabetes , Hypertension, Hyperlipidemia, Chronic anemia. Admitted from SNF with subjective fever, dry cough, redness and tenderness at site of right TMA. Noted to have worsening respiratory distress, improved on NIPPV. Patient not able to provide history Now on floor, less SOB, ABG noted, persistent congestion on CXR, stable overnight LE Cellulitis on Rx Allergies: No Known Allergies Past Medical History: ESRD on HD (MWF right upper extremity graft), Obesity, Schizophrenia, Bipolar Disorder, Diabetes, Hypertension, Hyperlipidemia, Hypothyroidism, Chronic anemia Episodes of hypoglycemia, PRN BiPAP Physical Exam Vital signs noted General Appearance: awake, chronically ill appearing HEENT: atraumatic, anicteric Neck: normal alignment, supple Respiratory/Chest: lungs clear, normal breath sounds, no respiratory distress, no accessory muscle use Cardiovascular/Chest: normal rate, regular rhythm Abdomen: non tender, soft Extremities: non-tender, normal inspection, no edema, LE cellulitis Neurologic: host hostess II-XII grossly normal Laboratory Tests Noted Assessment/Plan: 57 year-old with history of ESRD on HD MWF through right upper extremity graft, obesity, schizophrenia, bipolar disorder, diabetes, hypertension, hyperlipidemia , chronic anemia who presented to the hospital with fever and cough #Acute hypoxic and hypercarbic respiratory failure, improved #Suspected gram negative pneumonia (HCAP) #Bilateral infiltrates on CXR, pneumonia vs volume overload -AB per ID -HD per Renal #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 -Antibiotics per ID -wound care consulted #ESRD - renal following #Acute metabolic encephalopathy -supportive care -fall and aspiration precautions #Schizophrenia and bipolar -psychiatric following #Hypertensive urgency -Hydralazine, Nifedipine #DM type 2 -ISS - Hypoglycemia IV Dextrose #Epilepsy -Continue Keppra #Hypothyroidism -continue levothyroxine CXR: Interstitial infiltrates cw volume overload Critical Care - Objective Last 24 Hour Vital Signs Date Time Temp Pulse Resp B/P (MAP) Pulse Ox O2 Delivery O2 Flow Rate FiO2 05/11/19 09:05 73 130/69 05/11/19 09:00 Nasal Cannula 2.0 05/11/19 08:00 98.3 73 18 130/69 (89) 97 05/11/19 08:00 95 Nasal Cannula 3.0 32 05/11/19 06:15 158/84 05/11/19 04:00 98.4 100 18 158/84 (108) 96 05/11/19 00:00 98.2 74 18 152/84 (106) 96 05/10/19 21:00 Nasal Cannula 2.0 05/10/19 20:58 152/68 05/10/19 20:00 98.0 68 18 152/68 (96) 96 05/10/19 19:57 96 Nasal Cannula 2.0 28 05/10/19 16:00 97.6 77 18 132/76 (94) 95 05/10/19 14:00 127/63 05/10/19 12:00 97.9 67 18 127/63 (84) 96 Accucheck: 86 Critical Care - Subjective ROS Limited/Unobtainable: No FI02: 32 Vent Support Mode: BiLevel Sputum Amount: None I&O: Intake and Output 05/10/19 05/11/19 19:00 07:00 Intake Total 580 ml 840 ml Output Total 3000 ml Balance -2420 ml 840 ml Intake Oral 240 ml IV Total 180 ml 360 ml Other 400 ml 240 ml Hemodialysis UF 3000 ml # Voids 2 # Bowel Movements 1 Alejo Hernandez MD May 11, 2019 11:10
[2019-05-11 12:00] VITALS: BP 127/79
--- NOTE | 2019-05-11 14:03 | General Progress Note ---
Assessment/Plan Status: stable Assessment/Plan: 57 year-old with history of ESRD on HD MWF through right upper extremity graft, obesity, schizophrenia, bipolar disorder, diabetes, hypertension, hyperlipidemia , chronic anemia who presented to the hospital with fever and cough #Acute hypoxic and hypercarbic respiratory failure #Suspected gram negative pneumonia (HCAP) #Bilateral infiltrates on CXR -transferred to telemetry (05/03) from ICU. -DNR/DNI -continue supplemental oxygen, titrate down as tolerated. -Pulmonology following #Septic shock - resolved #Hypotension - resolved #Hypertension #Hypertensive urgency - resolved. -cont nifedipine -cont. clonidine -hydralazine prn for SBP > 160. -s/p midodrine 10 mg TID -> 5 mg -> off -s/p dopamine, albumin 25 g x1. #S/p right TMA with bilateral LE cellulitis -[place] x 1 ordered for pain -Surgery following #ESRD #Fluid overload -Nephrology following -Monitor electrolytes -Phosphate binders -HD per Renal #Acute metabolic encephalopathy -will provide supportive care -fall and aspiration precautions -treat underlying acute medical issues #Schizophrenia and bipolar -continue outpatient psychiatric regimen -Psych following -Haldol prn -risperidone qhs. #Hypertensive urgency -Continue hydralazine, Nifedipine #DM type 2 -ISS #HLD -continue ASA -continue statin. #Epilepsy -Continue Keppra #Hypothyroidism -continue levothyroxine #Moderate-severe protein calorie malnutrition -weight measurement -encourage PO intake. Dispo: Pending bed availability at [facility] Time spent on encounter: 30 mins, >50% on counseling, coordination of care. Time of note doesn't reflect time of encounter. Subjective Allergies: Coded Allergies: No Known Allergies (Verified , 08/23/06) Subjective Follow up for septic shock, gram negative pneumonia, LE cellulitis No acute medical issues overnight Patient was to be discharged to [facility] but no bed available Bed not available today either Pt at b/l per nurse, no new issues Objective Last 24 Hour Vital Signs Date Time Temp Pulse Resp B/P (MAP) Pulse Ox O2 Delivery O2 Flow Rate FiO2 05/11/19 13:53 127/79 05/11/19 12:00 98.9 79 18 127/79 (95) 98 05/11/19 09:05 73 130/69 05/11/19 09:00 Nasal Cannula 2.0 05/11/19 08:00 98.3 73 18 130/69 (89) 97 05/11/19 08:00 95 Nasal Cannula 3.0 32 05/11/19 06:15 158/84 05/11/19 04:00 98.4 100 18 158/84 (108) 96 05/11/19 00:00 98.2 74 18 152/84 (106) 96 05/10/19 21:00 Nasal Cannula 2.0 05/10/19 20:58 152/68 05/10/19 20:00 98.0 68 18 152/68 (96) 96 05/10/19 19:57 96 Nasal Cannula 2.0 28 05/10/19 16:00 97.6 77 18 132/76 (94) 95 Intake and Output 05/10/19 05/11/19 19:00 07:00 Intake Total 580 ml 840 ml Output Total 3000 ml Balance -2420 ml 840 ml Intake Oral 240 ml IV Total 180 ml 360 ml Other 400 ml 240 ml Hemodialysis UF 3000 ml # Voids 2 # Bowel Movements 1 Height (Feet): 5 Height (Inches): 4.00 Weight (Pounds): 184 Objective General Appearance: NAD Neck: normal alignment Cardiovascular: normal rate, regular rhythm Respiratory/Chest: lungs clear, normal breath sounds Abdomen: non tender, soft Ext: RLE w/bandage, c/d/i, RUE bandage c/d/i Latha Sidhu M.D. May 11, 2019 14:03
--- NOTE | 2019-05-11 14:57 | Surgery Progress Note ---
Surgery Progress Note Subjective Additional Comments Patient seen and examined bedside. No acute events. Resting comfortably. She still remains to have bilateral upper extremity wounds but seemingly slowly healing. Fortunately patient is not picking at them recently Objective Last 24 Hour Vital Signs Date Time Temp Pulse Resp B/P (MAP) Pulse Ox O2 Delivery O2 Flow Rate FiO2 05/11/19 13:53 127/79 05/11/19 12:00 98.9 79 18 127/79 (95) 98 05/11/19 09:05 73 130/69 05/11/19 09:00 Nasal Cannula 2.0 05/11/19 08:00 98.3 73 18 130/69 (89) 97 05/11/19 08:00 95 Nasal Cannula 3.0 32 05/11/19 06:15 158/84 05/11/19 04:00 98.4 100 18 158/84 (108) 96 05/11/19 00:00 98.2 74 18 152/84 (106) 96 05/10/19 21:00 Nasal Cannula 2.0 05/10/19 20:58 152/68 05/10/19 20:00 98.0 68 18 152/68 (96) 96 05/10/19 19:57 96 Nasal Cannula 2.0 28 05/10/19 16:00 97.6 77 18 132/76 (94) 95 I&O Intake and Output 05/10/19 05/11/19 19:00 07:00 Intake Total 580 ml 840 ml Output Total 3000 ml Balance -2420 ml 840 ml Intake Oral 240 ml IV Total 180 ml 360 ml Other 400 ml 240 ml Hemodialysis UF 3000 ml # Voids 2 # Bowel Movements 1 Dressing: saturated Wound: clean Cardiovascular: RSR Respiratory: clear, decreased breath sounds Abdomen: soft, non-tender, present bowel sounds Extremities: edema, no tenderness, no cyanosis, other Plan Problems: (1) Fluid overload Assessment & Plan: Patient with fluid overload BNP elevated pending cardiology input Likely respiratory component from this as well explaining URI Diurese Trend labs Pulmonary vascular congestion suspected with prominent pulmonary vascularity and interstitial densities with cardiomegaly. Costophrenic angles are well- visualized. Bones may be slightly osteopenic. Aorta is calcified. IMPRESSION: Suspected CHF (2) Lower extremity cellulitis Assessment & Plan: Patient with right TMA prior wound postoperative care had been provided for significant period time as it was improving. Some wound dehiscence identified. Mild cellulitis around the wound site. Antibiotics per infectious disease We will monitor closely over the next 24 hours if further surgical dimension necessary Furthermore identified to have a sacral deep tissue injury upon admission area of erythema 3 cm x 3 cm with superficial epidermal skin loss no dermal opening will monitor closely turn every 2 hours local care with skin protectant and foam dressing Will continue to monitor along with upper extremity wounds. She has been more compliant with not picking at them. Thank you will follow with recommendations (3) Foot ulcer due to secondary DM Assessment & Plan: s/p tma r FINDINGS: Bones/joints: Status post transmetatarsal amputation. No acute fracture or dislocation seen in the hindfoot or midfoot. Incidental note of small plantar calcaneal bony spur and small adjacent enthesophyte. Soft tissues: Unremarkable. No radiopaque foreign body. Vasculature: Scattered vascular calcifications throughout the foot and ankle. IMPRESSION: 1. No acute findings. 2. Status post transmetatarsal amputation. Vic Wise May 11, 2019 14:57
[2019-05-11 16:00] VITALS: BP 130/76
--- NOTE | 2019-05-11 17:16 | NUR ---
NURSE NOTES: Left message for that patient IV access has been compromised per patient and several attempts to regain access have been unsuccessful. Charge nurse aware. Addendum: 05/11/19 at 1723 by Maria C Isidro RN MD rivas.
[2019-05-11] MEDS: LORazepam Inj 2mg/ml 1ml IM PRN ×2 (18:06→23:35)
--- NOTE | 2019-05-11 19:20 | NUR ---
NURSE NOTES: Received report from Maria C RN. Rounding is done with outgoing nurse. Patient is in bed, a/o x1. Breathing is even and unlabored with NC 2L/min. No IV site and Maria C stated patient pulled out and aware. Dressing on Rt foot is C/D/I. Seizure precaution pads on side rails. Bed is on alarm, locked, and lowest position. Side rails up x3. Call light within reach. Will continue to monitor.
[2019-05-11 20:00] VITALS: BP 122/50
[2019-05-11] MEDS: Atorvastatin 20mg tab ORAL SCH (21:18)
--- NOTE | 2019-05-11 23:30 | NUR ---
NURSE NOTES: Bleeding on Rt forearm because patient scratched by her self. Put Optifoam.
--- NOTE | 2019-05-11 23:30 | Progress Note ---
DATE: 05/11/2019 SUBJECTIVE: The patient still has episodes of agitation, disoriented, received IM medications. She pulled out IV access. MENTAL STATUS EXAMINATION: The patient is confused, disoriented. Mood is agitated. Affect is flat. Thought process is concrete. Thought content, no suicidal or homicidal ideation. Cognition is impaired. Insight and judgment impaired. ASSESSMENT: Acute toxic encephalopathy. PLAN: 1. The patient will be continued on current psychotropic medications. 2. Ativan as needed. Blanka Beckett M.D. DR: Shraddha JOB#: [id number] CC:
[2019-05-12] VITALS: BP 148/65
[2019-05-12 04:00] VITALS: BP 132/64
--- NOTE | 2019-05-12 05:26 | NUR ---
NURSE NOTES: Patient refused to draw blood for labs. Explained regarding labs, but still refused.
[2019-05-12] MEDS: HydrALAZINE 50mg tab ORAL SCH ×3 (06:12→20:58)
--- NOTE | 2019-05-12 06:30 | NUR ---
NURSE NOTES: Patient scratched her arm again by herself and bleeding occurred. Cleaned with NS and put optifoam. Will continue to monitor.
--- NOTE | 2019-05-12 07:19 | NUR ---
HAND-OFF: Report given to Ada RN. Patient in stable condition.
--- NOTE | 2019-05-12 07:20 | NUR ---
NURSE NOTES: Received patient in bed asleep. O2 via NC in place. No SOB or acute distress. HOB elevated. Bed locked in lowest position. Call light within reach. Side rails raised. Will continue frequent rounding and plan of care.
[2019-05-12 08:00] VITALS: BP 183/78
[2019-05-12] MEDS: Aspirin EC 81mg tab ORAL SCH (08:09)
--- NOTE | 2019-05-12 09:30 | NUR ---
NURSE NOTES: For possible discharge today, awaiting bed at [facility]. RN called but admissions still not arrived. Will call back.
--- NOTE | 2019-05-12 10:07 | NUR ---
HAND-OFF: Report given to Domingo.
[2019-05-12] MEDS: LORazepam Inj 2mg/ml 1ml IM PRN (11:56)
[2019-05-12 12:00] VITALS: BP 135/55
--- NOTE | 2019-05-12 12:14 | Nephrology Progress Note ---
Assessment/Plan Problem List: (1) ESRD (end stage renal disease) on dialysis (2) CHF (congestive heart failure) (3) Fluid overload (4) Schizoaffective disorder, bipolar type (5) Diabetes mellitus, type II Assessment Admitted for respiratory distress and CHF and volume overload Unknown date of her last dialysis Conditions: (1) ESRD (end stage renal disease) on dialysis (2) Altered level of consciousness / Encephalopathy metabolic (3) Schizoaffective disorder, bipolar type (4) h/o Hypothyroidism (5) Anemia in chronic renal disease Also: - Cellulitis both LE - End-stage renal disease, on hemodialysis. fistula right arm - HTN / Pulmonary HTN - Diabetes type 2. Others - Morbid obesity. - H/O Colon Cancer - H/O Hep C - H/O Depression and Bipolar disease - Psych disease uncoaporative --Bilateral leg numbness --diabetic neuropathy --L5-S1 disc protrusion Plan Start phosphorus binders is now off BiPAP and on monitor bed She is lethargic Will change Protonix and Keppra to p.o. Last dialysis May 09 next dialysis May 12 on D10 since the blood sugar is low and patient on continuous BiPAP Was dialyzed on May 01 and 4 L was removed, due for dialysis today May 03 To recheck the chest x-ray Blood pressure and blood sugar under control Per orders Subjective ROS Limited/Unobtainable: No Constitutional: Reports: malaise, weakness Objective Objective Last 24 Hour Vital Signs Date Time Temp Pulse Resp B/P (MAP) Pulse Ox O2 Delivery O2 Flow Rate FiO2 05/12/19 09:17 63 12 97 Nasal Cannula 3.0 32 05/12/19 09:16 95 Nasal Cannula 3.0 32 05/12/19 09:00 Nasal Cannula 2.0 05/12/19 08:10 67 183/78 05/12/19 08:00 94.5 67 20 183/78 (113) 96 05/12/19 06:12 132/64 05/12/19 04:00 98.0 72 19 132/64 (86) 96 05/12/19 00:00 97.4 60 19 148/65 (92) 98 05/11/19 21:18 122/50 05/11/19 21:00 Nasal Cannula 2.0 05/11/19 20:34 94 Nasal Cannula 3.0 32 05/11/19 20:00 97.5 63 20 122/50 (74) 94 05/11/19 16:00 97.3 81 19 130/76 (94) 97 05/11/19 13:53 127/79 Intake and Output 05/11/19 05/12/19 19:00 07:00 Intake Total 690 ml 480 ml Balance 690 ml 480 ml Intake Oral 480 ml IV Total 90 ml Other 600 ml # Voids 1 # Bowel Movements 3 Height (Feet): 5 Height (Inches): 4.00 Weight (Pounds): 184 General Appearance: no apparent distress Objective No change Eamon Solis MD May 12, 2019 12:14
--- NOTE | 2019-05-12 12:43 | NUR ---
DISCHARGE PLANNING FOLLOW UP WITH ARLENE MERCEDES @ [phone] S/W [facility] IN ADMISSIONS. STATES BED WILL BE AVAILABLE Sunday05/13/2019 AFTER 2 PM WITH BED ASSIGNMENT OF #200-B INTERMEDIATE
--- NOTE | 2019-05-12 12:58 | NUR ---
CASE MANAGEMENT:REVIEW SI;RESPIRATORY DISTRESS. CHF. ESRD. 97.4 60 12 183/78 95% 2L NC NO LABS AVAILABLE IS;ASA PO QD PROCARDIA PO QD HYDRALAZINE PO Q8 HRS PROTONIX PO Q12 HRS AUGMENTIN PO QD KEPPRA PO Q12 HRS MED SURG STATUS DCP;TO [facility] WHEN BED AVAILABLE
--- NOTE | 2019-05-12 14:24 | General Progress Note ---
Assessment/Plan Status: stable Assessment/Plan: 57 year-old with history of ESRD on HD MWF through right upper extremity graft, obesity, schizophrenia, bipolar disorder, diabetes, hypertension, hyperlipidemia , chronic anemia who presented to the hospital with fever and cough #Acute hypoxic and hypercarbic respiratory failure #Suspected gram negative pneumonia (HCAP) #Bilateral infiltrates on CXR -transferred to telemetry (05/03) from ICU. -DNR/DNI -continue supplemental oxygen, titrate down as tolerated. -Pulmonology following #Septic shock - resolved #Hypotension - resolved #Hypertension #Hypertensive urgency - resolved. -cont nifedipine -hydralazine prn for SBP > 160. -s/p midodrine 10 mg TID -> 5 mg -> off -s/p dopamine, albumin 25 g x1. #S/p right TMA with bilateral LE cellulitis -[place] x 1 ordered for pain -Surgery following #ESRD #Fluid overload -Nephrology following -Monitor electrolytes -Phosphate binders -HD per Renal #Acute metabolic encephalopathy -will provide supportive care -fall and aspiration precautions -treat underlying acute medical issues #Schizophrenia and bipolar -continue outpatient psychiatric regimen -Psych following -Haldol prn -risperidone qhs. #Hypertensive urgency -Continue hydralazine, Nifedipine #DM type 2 -ISS #HLD -continue ASA -continue statin. #Epilepsy -Continue Keppra #Hypothyroidism -continue levothyroxine #Moderate-severe protein calorie malnutrition -weight measurement -encourage PO intake. Dispo: Pending bed availability at [facility] Time of note doesn't reflect time of encounter. Subjective ROS Limited/Unobtainable: Yes Cardiovascular: Denies: chest pain Gastrointestinal/Abdominal: Denies: abdominal pain Allergies: Coded Allergies: No Known Allergies (Verified , 08/23/06) Subjective Follow up for septic shock, gram negative pneumonia, LE cellulitis No acute medical issues overnight Discharge delayed due to bed availability at [facility], reportedly will be ready tomorrow per rn case management noted. Objective Last 24 Hour Vital Signs Date Time Temp Pulse Resp B/P (MAP) Pulse Ox O2 Delivery O2 Flow Rate FiO2 05/12/19 09:17 63 12 97 Nasal Cannula 3.0 32 05/12/19 09:16 95 Nasal Cannula 3.0 32 05/12/19 09:00 Nasal Cannula 2.0 05/12/19 08:10 67 183/78 05/12/19 08:00 94.5 67 20 183/78 (113) 96 05/12/19 06:12 132/64 05/12/19 04:00 98.0 72 19 132/64 (86) 96 05/12/19 00:00 97.4 60 19 148/65 (92) 98 05/11/19 21:18 122/50 05/11/19 21:00 Nasal Cannula 2.0 05/11/19 20:34 94 Nasal Cannula 3.0 32 05/11/19 20:00 97.5 63 20 122/50 (74) 94 05/11/19 16:00 97.3 81 19 130/76 (94) 97 Intake and Output 05/11/19 05/12/19 19:00 07:00 Intake Total 690 ml 480 ml Balance 690 ml 480 ml Intake Oral 480 ml IV Total 90 ml Other 600 ml # Voids 1 # Bowel Movements 3 Height (Feet): 5 Height (Inches): 4.00 Weight (Pounds): 184 General Appearance: no apparent distress, alert Cardiovascular: normal rate, regular rhythm Respiratory/Chest: lungs clear, normal breath sounds, no respiratory distress Norman Cooper MD May 12, 2019 14:24
--- NOTE | 2019-05-12 15:01 | NUR ---
ST NOTES: S: PATIENT NOT ALERT FOR PO TRIALS AND MOD BARIUM SWALLOW STUDY. PER RNZAID, THE PATIENT WAS ALERT EARLIER BUT GIVEN MEDS WHICH MAKES HER SLEEPY. THE PATIENT WAS SUPPOSED TO BE D/C LAST SUNDAY BUT SHE LOST HER BED AT THE FACILITY. O/A: PATIENT'S GOALS FOR INTAKE MET (100% FOR LUNCH) FOR MECH SOFT FINELY CHOPPED AND NECTAR THICK LIQUIDS W/O REPORTED OVERT ASPIRATION. PER [employer] PROCESS WORKER, PATIENT IS SELF-FEEDING. GOALS MET TODAY FOR NEW STAFF EDUCATED/TRAINED ON POSTED ASPIRATION PRECAUTIONS. PLAN: COMPLETE MOD BARIUM SWALLOW STUDY IP OR OP IF DC (DO NOT HOLD UP DC FOR THIS STUDY) CONTINUE WITH PLAN OF CARE IN SWALLOWING EVALUATION REPORT CONTINUE WITH CURRENT DIET/LIQUIDS WITH POSTED PRECAUTIONS.
--- NOTE | 2019-05-12 15:28 | Surgery Progress Note ---
Surgery Progress Note Subjective Symptoms: improved Additional Comments no acute events improved comfortable trying to leave room states wants to go Objective Last 24 Hour Vital Signs Date Time Temp Pulse Resp B/P (MAP) Pulse Ox O2 Delivery O2 Flow Rate FiO2 05/12/19 15:06 135/55 05/12/19 12:00 98.5 54 19 135/55 (81) 96 05/12/19 09:17 63 12 97 Nasal Cannula 3.0 32 05/12/19 09:16 95 Nasal Cannula 3.0 32 05/12/19 09:00 Nasal Cannula 2.0 05/12/19 08:10 67 183/78 05/12/19 08:00 94.5 67 20 183/78 (113) 96 05/12/19 06:12 132/64 05/12/19 04:00 98.0 72 19 132/64 (86) 96 05/12/19 00:00 97.4 60 19 148/65 (92) 98 05/11/19 21:18 122/50 05/11/19 21:00 Nasal Cannula 2.0 05/11/19 20:34 94 Nasal Cannula 3.0 32 05/11/19 20:00 97.5 63 20 122/50 (74) 94 05/11/19 16:00 97.3 81 19 130/76 (94) 97 I&O Intake and Output 05/11/19 05/12/19 19:00 07:00 Intake Total 690 ml 480 ml Balance 690 ml 480 ml Intake Oral 480 ml IV Total 90 ml Other 600 ml # Voids 1 # Bowel Movements 3 Dressing: dry Wound: clean Cardiovascular: RSR Respiratory: clear Abdomen: soft, flat, non-tender, present bowel sounds Extremities: edema, no cyanosis Plan Problems: (1) Fluid overload Assessment & Plan: Patient with fluid overload BNP elevated pending cardiology input Likely respiratory component from this as well explaining URI Diurese Trend labs Pulmonary vascular congestion suspected with prominent pulmonary vascularity and interstitial densities with cardiomegaly. Costophrenic angles are well- visualized. Bones may be slightly osteopenic. Aorta is calcified. IMPRESSION: Suspected CHF (2) Lower extremity cellulitis Assessment & Plan: Patient with right TMA prior wound postoperative care had been provided for significant period time as it was improving. Some wound dehiscence identified. Mild cellulitis around the wound site. Antibiotics per infectious disease We will monitor closely over the next 24 hours if further surgical dimension necessary Furthermore identified to have a sacral deep tissue injury upon admission area of erythema 3 cm x 3 cm with superficial epidermal skin loss no dermal opening will monitor closely turn every 2 hours local care with skin protectant and foam dressing Will continue to monitor along with upper extremity wounds. She has been more compliant with not picking at them. Thank you will follow with recommendations (3) Foot ulcer due to secondary DM Assessment & Plan: s/p tma r FINDINGS: Bones/joints: Status post transmetatarsal amputation. No acute fracture or dislocation seen in the hindfoot or midfoot. Incidental note of small plantar calcaneal bony spur and small adjacent enthesophyte. Soft tissues: Unremarkable. No radiopaque foreign body. Vasculature: Scattered vascular calcifications throughout the foot and ankle. IMPRESSION: 1. No acute findings. 2. Status post transmetatarsal amputation. Vic Wise May 12, 2019 15:28
[2019-05-12 16:00] VITALS: BP 149/67
--- NOTE | 2019-05-12 16:47 | Infectious Diseases Prog Note ---
Assessment/Plan Assessment/Plan ASSESSMENT AND PLAN: 1. pneumonia, sepsis, sirs, bilateral leg cellulitis, right foot wound, hypothermia, sob, pulmonary edema - finish augmentin - monitor labs and chest x-ray - clinically improved - pulmonary tx/support - sc-nf, mycoplasma and legionella negative - stool studies - negative 2. End-stage renal disease, on hemodialysis. 3. Right TMA with some wound dehiscence. 4. Wound care protocol. 5. ICU care. 6. Waller. 7. End-stage renal disease, on hemodialysis treatment per [facility]. 8. Right upper extremity graft. 9. Obesity. 10. Schizophrenia and bipolar disease. 11. Diabetes. 12. Hypertension. 13. Hyperlipidemia. 14. Anemia. 15. Blood sugar and blood pressure treatment for diabetes and hypertension per primary care team. 16. Hypothyroidism. 17. Thyroid supplementation. 18. Encephalopathy. 19. Epilepsy. 20. Past medical history noted 21. No known drug allergies. 22. Social history is negative. 23. Family history is noncontributory. 24. MAR is noted. 25. Case was discussed with RN. 26. vre colonization Subjective Constitutional: Denies: fever HEENT: Denies: congestion Respiratory: Denies: shortness of breath Cardiovascular: Denies: chest pain Gastrointestinal/Abdominal: Denies: nausea, vomiting, diarrhea Genitourinary: Reports: other - no waller Neurologic: Denies: headache Psychiatric: Denies: depression Skin: Denies: rash Hematologic: Denies: bleeding Musculoskeletal: Denies: pain Allergies: Coded Allergies: No Known Allergies (Verified , 08/23/06) Objective Vital Signs Last 24 Hour Vital Signs Date Time Temp Pulse Resp B/P (MAP) Pulse Ox O2 Delivery O2 Flow Rate FiO2 05/12/19 16:00 97.3 57 18 149/67 (94) 96 05/12/19 15:06 135/55 05/12/19 12:00 98.5 54 19 135/55 (81) 96 05/12/19 09:17 63 12 97 Nasal Cannula 3.0 32 05/12/19 09:16 95 Nasal Cannula 3.0 32 05/12/19 09:00 Nasal Cannula 2.0 05/12/19 08:10 67 183/78 05/12/19 08:00 94.5 67 20 183/78 (113) 96 05/12/19 06:12 132/64 3/23/20 04:00 98.0 72 19 132/64 (86) 96 05/12/19 00:00 97.4 60 19 148/65 (92) 98 05/11/19 21:18 122/50 05/11/19 21:00 Nasal Cannula 2.0 05/11/19 20:34 94 Nasal Cannula 3.0 32 05/11/19 20:00 97.5 63 20 122/50 (74) 94 Height (Feet): 5 Height (Inches): 4.00 Weight (Pounds): 184 General Appearance: no acute distress HEENT: normocephalic, atraumatic, anicteric Respiratory/Chest: lungs clear, normal breath sounds, no respiratory distress Cardiovascular: normal rate, regular rhythm, no gallop/murmur, no JVD Abdomen: normal bowel sounds, soft, non tender, no organomegaly, non distended Genitourinary: other - no waller Extremities: other - no sig cellulitis on legs Skin: no rash Neurologic/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 COMPARISON: Chest x-rays dated 05/01/19 FINDINGS: Lungs: Pulmonary vascular congestion. Subsegmental atelectasis versus infiltrates in bilateral lung bases. Pleural space: Bilateral mild to moderate layering pleural effusions, greater on the right, worsened compared to the prior exam. Heart: Unremarkable. No cardiomegaly. Mediastinum: Unremarkable. Bones/joints: Unremarkable. Vasculature: Atherosclerotic calcifications within the aortic arch. Tubes, lines and devices: Telemetry leads overlie the thorax. IMPRESSION: 1. Bilateral mild to moderate layering pleural effusions, greater on the right, worsened compared to the prior exam. 2. Pulmonary vascular congestion, not significantly changed. 3. Subsegmental atelectasis versus infiltrates in bilateral lung bases. x-ray - right foot: Procedure: XRAY Foot 2v R EXAM: XR Right Foot, 2 Views CLINICAL HISTORY: INFECT TECHNIQUE: Frontal and lateral views of the right foot. COMPARISON: Right foot x-rays dated 11/11/17 FINDINGS: Bones/joints: Status post transmetatarsal amputation. No acute fracture or dislocation seen in the hindfoot or midfoot. Incidental note of small plantar calcaneal bony spur and small adjacent enthesophyte. Soft tissues: Unremarkable. No radiopaque foreign body. Vasculature: Scattered vascular calcifications throughout the foot and ankle. IMPRESSION: 1. No acute findings. 2. Status post transmetatarsal amputation. If there is clinical concern for osteomyelitis, MRI or nuclear medicine bone scan should be considered. Chest x-ray - 05/07/19 - Procedure: XRAY Chest 1v Indication: Dyspnea Comparison: 05/04/2019 A single view chest radiograph was obtained. Findings: Interstitial edema demonstrated. There is a right pleural effusion suspected. Heart is enlarged. IMPRESSION: Slightly worsening interstitial edema. Microbiology Date/Time Source Procedure Growth Status 05/01/19 21:00 Blood Blood Culture - Final NO GROWTH AFTER 5 DAYS Complete 05/04/19 03:15 Sputum Expectorated Gram Stain - Final Complete 05/04/19 03:15 Sputum Expectorated Sputum Culture - Final NORMAL UPPER RESPIRATORY MOE PRESENT Complete 05/04/19 03:15 Stool Ova and Parasites - Final Complete 05/04/19 03:15 Stool Ova and Parasite Result 1 - Final Complete 05/01/19 23:10 Rectum VRE Culture - Final Enterococcus Faecalis - Vre Complete Labs Test 05/10/19 10:15 White Blood Count 6.7 K/UL (4.8-10.8) Red Blood Count 4.09 M/UL (4.20-5.40) Hemoglobin 12.9 G/DL (12.0-16.0) Hematocrit 39.1 % (37.0-47.0) Mean Corpuscular Volume 96 FL (80-99) Mean Corpuscular Hemoglobin 31.4 PG (27.0-31.0) Mean Corpuscular Hemoglobin Concent 32.9 G/DL (32.0-36.0) Red Cell Distribution Width 16.3 % (11.6-14.8) Platelet Count 60 K/UL (150-450) Mean Platelet Volume 8.3 FL (6.5-10.1) Neutrophils (%) (Auto) % (45.0-75.0) Lymphocytes (%) (Auto) % (20.0-45.0) Monocytes (%) (Auto) % (1.0-10.0) Eosinophils (%) (Auto) % (0.0-3.0) Basophils (%) (Auto) % (0.0-2.0) Differential Total Cells Counted 100 Neutrophils % (Manual) 66 % (45-75) Lymphocytes % (Manual) 20 % (20-45) Monocytes % (Manual) 6 % (1-10) Eosinophils % (Manual) 8 % (0-3) Basophils % (Manual) 0 % (0-2) Band Neutrophils 0 % (0-8) Platelet Estimate Decreased Platelet Morphology Normal Anisocytosis 1+ Sodium Level 136 MMOL/L (136-145) Potassium Level 4.1 MMOL/L (3.5-5.1) Chloride Level 95 MMOL/L (98-107) Carbon Dioxide Level 26 MMOL/L (21-32) Anion Gap 15 mmol/L (5-15) Blood Urea Nitrogen 34 mg/dL (7-18) Creatinine 6.0 MG/DL (0.55-1.30) Estimat Glomerular Filtration Rate 7.2 mL/min (>60) Glucose Level 102 MG/DL (74-106) Calcium Level 9.7 MG/DL (8.5-10.1) Phosphorus Level 8.7 MG/DL (2.5-4.9) Magnesium Level 1.9 MG/DL (1.8-2.4) Total Bilirubin 0.6 MG/DL (0.2-1.0) Direct Bilirubin 0.2 MG/DL (0.0-0.3) Aspartate Amino Transf (AST/SGOT) 14 U/L (15-37) Alanine Aminotransferase (ALT/SGPT) 16 U/L (12-78) Alkaline Phosphatase 131 U/L (46-116) Total Protein 6.4 G/DL (6.4-8.2) Albumin 2.8 G/DL (3.4-5.0) Current Medications Medications (Trade) Dose Ordered Sig/Gabriele Route PRN Reason Start Time Stop Time Status Last Admin Dose Admin Amoxicillin/ Clavulanate Potassium (Augmentin) 500 mg Q24HRS ORAL 05/06/19 17:00 05/13/19 16:59 05/11/19 17:44 Aspirin (Ecotrin) 81 mg DAILY ORAL 05/07/19 09:00 06/16/19 09:59 05/12/19 08:09 Atorvastatin Calcium (Lipitor) 20 mg BEDTIME ORAL 05/06/19 21:00 06/01/19 20:59 05/11/19 21:18 Dextrose (Dextrose 50%) 25 ml Q30M PRN IV Hypoglycemia 05/06/19 16:45 06/01/19 03:44 Dextrose (Dextrose 50%) 50 ml Q30M PRN IV Hypoglycemia 05/06/19 16:45 06/01/19 03:44 Haloperidol Lactate (Haldol) 5 mg Q6H PRN IM Agitation 05/06/19 17:00 06/16/19 16:59 05/11/19 21:57 Hydralazine HCl (Apresoline) 25 mg Q4H PRN ORAL SBP > 180 05/07/19 09:49 08/05/19 09:48 05/07/19 10:54 Hydralazine HCl (Apresoline) 50 mg Q8HR ORAL 05/06/19 22:00 06/01/19 09:59 05/12/19 15:06 Levetiracetam (Keppra) 500 mg Q12HR ORAL 05/06/19 21:00 06/20/19 20:59 05/12/19 08:10 Levothyroxine Sodium (Synthroid) 100 mcg DAILY@0630 ORAL 05/07/19 06:30 06/02/19 06:29 05/12/19 06:12 Lorazepam (Ativan 2mg/ml 1ml) 2 mg Q4H PRN IM For Anxiety/agitation 05/11/19 17:30 05/18/19 17:29 05/12/19 11:56 Lorazepam (Ativan 2mg/ml 1ml) 2 mg Q4H PRN IV For Anxiety 05/06/19 17:00 05/12/19 16:59 05/11/19 02:40 Nifedipine (Procardia XL) 90 mg DAILY ORAL 05/07/19 09:00 06/04/19 10:59 05/12/19 08:10 Pantoprazole (Protonix) 40 mg EVERY 12 HOURS ORAL 05/06/19 21:00 06/05/19 20:59 05/12/19 08:09 Risperidone (RisperDAL) 4 mg BEDTIME ORAL 05/06/19 21:00 06/16/19 20:59 05/11/19 21:18 Sevelamer Carbonate (Renvela) 2,400 mg THREE TIMES A DAY ORAL 05/11/19 13:00 08/09/19 12:59 05/12/19 11:57 Nehal Nolasco MD May 12, 2019 16:47
--- NOTE | 2019-05-12 17:34 | Pulmonolgy Critical Care Note ---
Critical Care - Asmt/Plan Assessment/Plan: Pulmonary Progress Note HPI Patient is a 57 year-old female with Past Medical History of ESRD on HD (MWF right upper extremity graft), Obesity, Schizophrenia, Bipolar Disorder, Diabetes , Hypertension, Hyperlipidemia, Chronic anemia. Admitted from SNF with subjective fever, dry cough, redness and tenderness at site of right TMA. Noted to have worsening respiratory distress, improved on NIPPV. Patient not able to provide history Now on floor, less SOB, stable overnight LE Cellulitis on Rx Allergies: No Known Allergies Past Medical History: ESRD on HD (MWF right upper extremity graft), Obesity, Schizophrenia, Bipolar Disorder, Diabetes, Hypertension, Hyperlipidemia, Hypothyroidism, Chronic anemia Episodes of hypoglycemia, PRN BiPAP Physical Exam Vital signs noted General Appearance: awake, chronically ill appearing HEENT: atraumatic, anicteric Neck: normal alignment, supple Respiratory/Chest: lungs clear, normal breath sounds, no respiratory distress, no accessory muscle use Cardiovascular/Chest: normal rate, regular rhythm Abdomen: non tender, soft Extremities: non-tender, normal inspection, no edema, LE cellulitis 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: 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 Laboratory Tests Noted Assessment/Plan: 57 year-old with history of ESRD on HD MWF through right upper extremity graft, obesity, schizophrenia, bipolar disorder, diabetes, hypertension, hyperlipidemia , chronic anemia who presented to the hospital with fever and cough #Acute hypoxic and hypercarbic respiratory failure, improved #Suspected gram negative pneumonia (HCAP) #Bilateral infiltrates on CXR, pneumonia vs volume overload -AB per ID -HD per Renal #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 -Antibiotics per ID -Surgery following -wound care consulted #ESRD - renal following #Acute metabolic encephalopathy -supportive care -fall and aspiration precautions #Schizophrenia and bipolar -psychiatric following #Hypertensive urgency -Hydralazine, Nifedipine #DM type 2 -ISS - Hypoglycemia IV Dextrose #Epilepsy -Continue Keppra #Hypothyroidism -continue levothyroxine CXR: Interstitial infiltrates cw volume overload Critical Care - Objective Last 24 Hour Vital Signs Date Time Temp Pulse Resp B/P (MAP) Pulse Ox O2 Delivery O2 Flow Rate FiO2 05/12/19 16:00 97.3 57 18 149/67 (94) 96 05/12/19 15:06 135/55 05/12/19 12:00 98.5 54 19 135/55 (81) 96 05/12/19 09:17 63 12 97 Nasal Cannula 3.0 32 05/12/19 09:16 95 Nasal Cannula 3.0 32 05/12/19 09:00 Nasal Cannula 2.0 05/12/19 08:10 67 183/78 05/12/19 08:00 94.5 67 20 183/78 (113) 96 05/12/19 06:12 132/64 05/12/19 04:00 98.0 72 19 132/64 (86) 96 05/12/19 00:00 97.4 60 19 148/65 (92) 98 05/11/19 21:18 122/50 05/11/19 21:00 Nasal Cannula 2.0 05/11/19 20:34 94 Nasal Cannula 3.0 32 05/11/19 20:00 97.5 63 20 122/50 (74) 94 Accucheck: 125 Critical Care - Subjective ROS Limited/Unobtainable: No FI02: 32 Vent Support Mode: BiLevel Sputum Amount: None I&O: Intake and Output 05/11/19 05/12/19 19:00 07:00 Intake Total 690 ml 480 ml Balance 690 ml 480 ml Intake Oral 480 ml IV Total 90 ml Other 600 ml # Voids 1 # Bowel Movements 3 Alejo Hernandez MD May 12, 2019 17:34
--- NOTE | 2019-05-12 19:19 | NUR ---
HAND-OFF: Report given to Judy RN.Endorsed that patient is a high fall risk. Endorsed that patient gets up without calling.
--- NOTE | 2019-05-12 19:30 | NUR ---
NURSE NOTES: RECEIVED PATIENT FROM CHE[facility] MAR. PATIENT IS ASLEEP, ON NL 2L, NO ACUTE DISTRESS NOTED. SHUNT ON LEFT ARM DRESSING INTACT AND DRY. WOUND DRESSINGS INTACT. NO IV ACCESS, MD AWARE. BED IS LOCKED AND LOW, BED ALARMS ACTIVE, SIDE RAILS UP X2 AND PADDED, AND CALL LIGHT IS WITHIN REACH. WILL CONTINUE TO MONITOR.
[2019-05-12 20:00] VITALS: BP 165/73
[2019-05-12] MEDS: Haloperidol 5mg/ml Inj IM PRN (20:59)
[2019-05-12] MEDS: Atorvastatin 20mg tab ORAL SCH (20:59)
[2019-05-13] VITALS: BP 182/70
[2019-05-13] MEDS: HydrALAZINE 25mg tab ORAL PRN (01:10)
[2019-05-13] MEDS: LORazepam Inj 2mg/ml 1ml IM PRN ×2 (01:10→07:58)
--- NOTE | 2019-05-13 01:30 | Progress Note ---
DATE: 05/13/2019 SUBJECTIVE: The patient was agitated today, received IV Ativan. The patient is confused, not able to be engaged. MENTAL STATUS EXAMINATION: The patient is confused and disoriented. Mood is anxious. Affect is flat. Thought process is concrete. Thought content, no suicidal or homicidal ideation. Cognition is impaired. Insight and judgment impaired. ASSESSMENT: 1. Schizoaffective disorder. 2. Acute encephalopathy. PLAN: 1. Risperidone 4 mg. 2. Ativan IM . Blanka Beckett M.D. DR: LAZARO JOB#: [id number] CC:
[2019-05-13 04:00] VITALS: BP 163/77
[2019-05-13] MEDS: HydrALAZINE 50mg tab ORAL SCH (06:02)
--- NOTE | 2019-05-13 07:07 | NUR ---
HAND-OFF: Report given to CHEPE So.
--- NOTE | 2019-05-13 07:08 | NUR ---
NURSE NOTES: Report received from Judy RN. Patient is awake and alert x 2. Patient is currently on 2 liters of oxygen via nasal canula. Patient denies shortness of breath. Patient denies chest pain. Patient is currently eating breakfast in bed. Patient noted to have no IV access. No IV medications. No IV fluids. MDs aware. Endorsed that patient is a high fall risk. Endorsed that patient attempts to get up alone and is unsteady on feet. Bed alarm on, bed in lowest position, and locked. Educated patient to call. casino assistant manager aware. Patient to receive dialysis today. Will continue to follow plan of care.
[2019-05-13] MEDS: Haloperidol 5mg/ml Inj IM PRN (07:58)
[2019-05-13 08:00] VITALS: BP 190/84
[2019-05-13] MEDS: Aspirin EC 81mg tab ORAL SCH (09:09)
--- NOTE | 2019-05-13 09:38 | NUR ---
NURSE NOTES: Patient noted to have high blood pressure. No BP medications given due to dialysis. Dialysis nurse here now.
[2019-05-13 12:00] VITALS: BP 145/57
--- NOTE | 2019-05-13 13:16 | Nephrology Progress Note ---
Assessment/Plan Problem List: (1) ESRD (end stage renal disease) on dialysis (2) CHF (congestive heart failure) (3) Fluid overload (4) Schizoaffective disorder, bipolar type (5) Diabetes mellitus, type II Assessment Admitted for respiratory distress and CHF and volume overload Unknown date of her last dialysis Conditions: (1) ESRD (end stage renal disease) on dialysis (2) Altered level of consciousness / Encephalopathy metabolic (3) Schizoaffective disorder, bipolar type (4) h/o Hypothyroidism (5) Anemia in chronic renal disease Also: - Cellulitis both LE - End-stage renal disease, on hemodialysis. fistula right arm - HTN / Pulmonary HTN - Diabetes type 2. Others - Morbid obesity. - H/O Colon Cancer - H/O Hep C - H/O Depression and Bipolar disease - Psych disease uncoaporative --Bilateral leg numbness --diabetic neuropathy --L5-S1 disc protrusion Plan Last dialysis May 09 next dialysis May 12 Start phosphorus binders is now off BiPAP and on monitor bed She is lethargic but agitated at times On Protonix and Keppra orally Last dialysis May 09 next dialysis May 12 on D10 since the blood sugar is low and patient on continuous BiPAP To recheck the chest x-ray Blood pressure and blood sugar under control Per orders Subjective ROS Limited/Unobtainable: No Constitutional: Reports: malaise, weakness Objective Objective Last 24 Hour Vital Signs Date Time Temp Pulse Resp B/P (MAP) Pulse Ox O2 Delivery O2 Flow Rate FiO2 05/13/19 12:00 98.0 65 20 145/57 (86) 95 05/13/19 09:00 Nasal Cannula 2.0 05/13/19 09:00 67 190/84 05/13/19 08:00 98.0 67 20 190/84 (119) 95 05/13/19 07:30 95 Nasal Cannula 3.0 32 05/13/19 06:02 163/77 05/13/19 04:00 98.4 68 20 163/77 (105) 95 05/13/19 01:10 182/70 05/13/19 00:00 98.5 65 20 182/70 (107) 96 05/12/19 21:00 Nasal Cannula 2.0 05/12/19 20:58 165/73 05/12/19 20:24 94 Nasal Cannula 3.0 32 05/12/19 20:00 98.4 61 18 165/73 (103) 92 05/12/19 16:00 97.3 57 18 149/67 (94) 96 05/12/19 15:06 135/55 Intake and Output 05/12/19 05/13/19 19:00 07:00 Intake Total 600 ml 480 ml Balance 600 ml 480 ml Intake Oral 600 ml 480 ml # Voids 4 # Bowel Movements 1 1 Been refusing blood work for past few days Height (Feet): 5 Height (Inches): 4.00 Weight (Pounds): 216 General Appearance: agitated - At times Cardiovascular: normal rate Respiratory/Chest: decreased breath sounds Abdomen: distended Objective No change Eamon Solis MD May 13, 2019 13:16
--- NOTE | 2019-05-13 13:30 | Surgery Progress Note ---
Surgery Progress Note Subjective Symptoms: improved Objective Last 24 Hour Vital Signs Date Time Temp Pulse Resp B/P (MAP) Pulse Ox O2 Delivery O2 Flow Rate FiO2 05/13/19 12:00 98.0 65 20 145/57 (86) 95 05/13/19 09:00 Nasal Cannula 2.0 05/13/19 09:00 67 190/84 05/13/19 08:00 98.0 67 20 190/84 (119) 95 05/13/19 07:30 95 Nasal Cannula 3.0 32 05/13/19 06:02 163/77 05/13/19 04:00 98.4 68 20 163/77 (105) 95 05/13/19 01:10 182/70 05/13/19 00:00 98.5 65 20 182/70 (107) 96 05/12/19 21:00 Nasal Cannula 2.0 05/12/19 20:58 165/73 05/12/19 20:24 94 Nasal Cannula 3.0 32 05/12/19 20:00 98.4 61 18 165/73 (103) 92 05/12/19 16:00 97.3 57 18 149/67 (94) 96 05/12/19 15:06 135/55 I&O Intake and Output 05/12/19 05/13/19 19:00 07:00 Intake Total 600 ml 480 ml Balance 600 ml 480 ml Intake Oral 600 ml 480 ml # Voids 4 # Bowel Movements 1 1 Dressing: dry Wound: clean Cardiovascular: RSR Respiratory: clear Abdomen: soft, flat, present bowel sounds Extremities: edema, no tenderness, no cyanosis Plan Problems: (1) Fluid overload Assessment & Plan: Patient with fluid overload BNP elevated pending cardiology input Likely respiratory component from this as well explaining URI Diurese Trend labs Pulmonary vascular congestion suspected with prominent pulmonary vascularity and interstitial densities with cardiomegaly. Costophrenic angles are well- visualized. Bones may be slightly osteopenic. Aorta is calcified. IMPRESSION: Suspected CHF (2) Lower extremity cellulitis Assessment & Plan: Patient with right TMA prior wound postoperative care had been provided for significant period time as it was improving. Some wound dehiscence identified. Mild cellulitis around the wound site. Antibiotics per infectious disease We will monitor closely over the next 24 hours if further surgical dimension necessary Furthermore identified to have a sacral deep tissue injury upon admission area of erythema 3 cm x 3 cm with superficial epidermal skin loss no dermal opening will monitor closely turn every 2 hours local care with skin protectant and foam dressing Will continue to monitor along with upper extremity wounds. She has been more compliant with not picking at them. Thank you will follow with recommendations (3) Foot ulcer due to secondary DM Assessment & Plan: s/p tma r FINDINGS: Bones/joints: Status post transmetatarsal amputation. No acute fracture or dislocation seen in the hindfoot or midfoot. Incidental note of small plantar calcaneal bony spur and small adjacent enthesophyte. Soft tissues: Unremarkable. No radiopaque foreign body. Vasculature: Scattered vascular calcifications throughout the foot and ankle. IMPRESSION: 1. No acute findings. 2. Status post transmetatarsal amputation. Vic Wise May 13, 2019 13:30
[2019-05-13] MEDS ORDERED: HydrALAZINE 50mg tab ORAL SCH (14:00)
--- NOTE | 2019-05-13 14:02 | Discharge Summary ---
Discharge Summary Hospital Course Date of Admission May 01, 2019 at 23:18 Date of Discharge Admitting Diagnosis fluid overload, diabetes, cellulitis HPI Cris Zuluaga is a 58 year old female who was admitted on May 01, 2019 at 23:18 for Fluid Overload,Diabetes,Cellulitis Hospital Course 57 year-old with history of ESRD on HD MWF through right upper extremity graft, obesity, schizophrenia, bipolar disorder, diabetes, hypertension, hyperlipidemia , chronic anemia who presented to the hospital with fever and cough. She was admitted to ICU with septic shock, acute hypoxic and hypercarbic resp failure due to gram negative pneumonia with bilateral infiltrates, bilateral LE cellulitis. Treated with vasopressors, NIPPV and broad spectrum antibiotics stabilized and ultimately transferred out of ICU, ESRD and fluid overload managed by Nephrology. She has been transitioned to oral antibiotics and mentation is back to baseline. Stable for discharge back to T in improved condition. D/c was held due to no bed availabe at facility. Pt completed Augmentin and Doxy. Pt stable for d/c back to facility Discharge Diagnoses #Acute hypoxic and hypercarbic respiratory failure #Suspected gram negative pneumonia (HCAP) #Bilateral infiltrates on CXR #Septic shock - resolved #Hypotension - resolved #Hypertension #Hypertensive urgency - resolved. #S/p right TMA with bilateral LE cellulitis #ESRD #Fluid overload #Acute metabolic encephalopathy #Schizophrenia and bipolar #Hypertensive urgency #DM type 2 #HLD #Epilepsy #Hypothyroidism #Moderate-severe protein calorie malnutrition Time spent on preparing discharge was 36 mins, which includes time spent on coordinating with RN, ed case manager and consulting MDs Time of note doesn't reflect time of encounter. Discharge Medications New Medications: Amoxicillin/Potassium Clav 500-125 Mg Tab* (Amox Tr-K Clv 500-125 Mg Tab*) 1 Each Tablet 500 MG ORAL Q24HRS for 3 Days, #3 TAB Doxycycline Monohydrate* (Doxycycline Monohydrate*) 100 Mg Capsule 100 MG ORAL EVERY 12 HOURS for 3 Days, #6 CAP Levetiracetam (Keppra) 250 Mg Tablet 500 MG ORAL Q12HR for 15 Days, #15 TAB Continued Medications: Acetaminophen* (Acetaminophen 325MG Tablet*) 325 Mg Tablet 650 MG ORAL Q6H PRN for MILD PAIN, TAB (This prescription has been renewed) Aspirin* (Aspir 81*) 81 Mg Tablet.dr 81 MG ORAL DAILY, TAB (This prescription has been renewed) Atorvastatin Calcium* (Lipitor*) 20 Mg Tablet 20 MG ORAL BEDTIME, TAB (This prescription has been renewed) Calcium Acetate (Phoslyra) 667 Mg/5 Ml Solution 1334 MG PO TID for ESRD WITH MEALS Ferrous Sulfate* (Ferrous Sulfate*) 325 Mg Tablet 325 MG ORAL DAILY, #30 TAB 0 Refills (This prescription has been renewed) Hydralazine Hcl* (Hydralazine Hcl*) 25 Mg Tablet 25 MG ORAL EVERY 4 HOURS PRN for FOR SBP>160 OR DBP>90, TAB 0 Refills (This prescription has been renewed) Hydrocodone Bit/Acetaminophen 5-325* (Meridian 5-325 Tablet*) 1 Each Tablet 1 TAB ORAL Q8HR PRN for SEVERE PAIN, TAB 0 Refills (This prescription has been renewed) Ipratropium/Albuterol Sulfate (DuoNeb 0.5-3(2.5)mg/3ml) 3 Ml Ampul.neb 3 ML HHN Q6HR PRN for Shortness of Breath, EA (This prescription has been renewed) Lactulose (Lactulose) 10 Gm/15 Ml Solution 45 ML PO BID for ENCEPHALOPATHY (This prescription has been renewed) Levothyroxine Sodium* (Synthroid*) 100 Mcg Tablet 100 MCG ORAL DAILY@0630 for 10 Days, #10 TAB Take in the morning on an empty stomach, at least 30 minutes before food. Melatonin (Melatonin) 10 Mg Tablet 10 MG ORAL BEDTIME PRN for IMPROVE CIRCADIAN RHYTHM for 30 Days, TAB (This prescription has been renewed) Nifedipine Xl* (Procardia Xl*) 30 Mg Tab.er.24 60 MG ORAL BID for 10 Days, #20 TAB Polyethylene Glycol 3350* (Miralax*) 17 Gm Powd.pack 17 GM ORAL DAILY, PACKET (This prescription has been renewed) Risperidone* (Risperdal*) 2 Mg Tablet 4 MG ORAL BEDTIME for 10 Days, #10 TAB Sertraline Hcl* (Sertraline Hcl*) 25 Mg Tablet 25 MG ORAL DAILY for DEPRESSION, TAB (This prescription has been renewed) Vitamin B Cmplx/Vit C/Folic AC (Nephro-Denise Tablet) 0.8 Mg Tablet 1 TAB ORAL DAILY, #30 TAB 0 Refills (This prescription has been renewed) Discharge Discharge Vital Signs Last Vital Signs Date Time Temp Pulse Resp B/P (MAP) Pulse Ox O2 Delivery O2 Flow Rate FiO2 3/24/20 12:00 98.0 65 20 145/57 (86) 95 05/13/19 09:00 Nasal Cannula 2.0 05/13/19 07:30 32 Discharge Disposition Patient was discharged to [facility] Latha Sidhu M.D. May 13, 2019 14:02
[2019-05-13] MEDS ORDERED: RENVELA800 MG ORAL (14:10)
--- NOTE | 2019-05-13 14:33 | Pulmonolgy Critical Care Note ---
Critical Care - Asmt/Plan Assessment/Plan: Pulmonary Progress Note HPI Patient is a 57 year-old female with Past Medical History of ESRD on HD (MWF right upper extremity graft), Obesity, Schizophrenia, Bipolar Disorder, Diabetes , Hypertension, Hyperlipidemia, Chronic anemia. Admitted from SNF with subjective fever, dry cough, redness and tenderness at site of right TMA. Noted to have worsening respiratory distress, improved on NIPPV. Patient not able to provide history Now on floor, less SOB, stable overnight LE Cellulitis on Rx Allergies: No Known Allergies Past Medical History: ESRD on HD (MWF right upper extremity graft), Obesity, Schizophrenia, Bipolar Disorder, Diabetes, Hypertension, Hyperlipidemia, Hypothyroidism, Chronic anemia Episodes of hypoglycemia, PRN BiPAP Physical Exam Vital signs noted General Appearance: awake, chronically ill appearing HEENT: atraumatic, anicteric Neck: normal alignment, supple Respiratory/Chest: lungs clear, normal breath sounds, no respiratory distress, no accessory muscle use Cardiovascular/Chest: normal rate, regular rhythm Abdomen: non tender, soft Extremities: non-tender, normal inspection, no edema, LE cellulitis 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 Laboratory Tests Noted Assessment/Plan: 57 year-old with history of ESRD on HD MWF through right upper extremity graft, obesity, schizophrenia, bipolar disorder, diabetes, hypertension, hyperlipidemia , chronic anemia who presented to the hospital with fever and cough #Acute hypoxic and hypercarbic respiratory failure, improved #Suspected gram negative pneumonia (HCAP) #Bilateral infiltrates on CXR, pneumonia vs volume overload -AB per ID -HD per Renal #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 -Antibiotics per ID -Surgery following -wound care consulted #ESRD - renal following #Acute metabolic encephalopathy -supportive care -fall and aspiration precautions #Schizophrenia and bipolar -psychiatric following #Hypertensive urgency -Hydralazine, Nifedipine #DM type 2 -ISS - Hypoglycemia IV Dextrose #Epilepsy -Continue Keppra #Hypothyroidism -continue levothyroxine CXR: Interstitial infiltrates cw volume overload Critical Care - Objective Last 24 Hour Vital Signs Date Time Temp Pulse Resp B/P (MAP) Pulse Ox O2 Delivery O2 Flow Rate FiO2 05/13/19 14:03 145/57 05/13/19 12:00 98.0 65 20 145/57 (86) 95 05/13/19 09:00 Nasal Cannula 2.0 05/13/19 09:00 67 190/84 05/13/19 08:00 98.0 67 20 190/84 (119) 95 05/13/19 07:30 95 Nasal Cannula 3.0 32 05/13/19 06:02 163/77 05/13/19 04:00 98.4 68 20 163/77 (105) 95 05/13/19 01:10 182/70 05/13/19 00:00 98.5 65 20 182/70 (107) 96 05/12/19 21:00 Nasal Cannula 2.0 05/12/19 20:58 165/73 05/12/19 20:24 94 Nasal Cannula 3.0 32 05/12/19 20:00 98.4 61 18 165/73 (103) 92 05/12/19 16:00 97.3 57 18 149/67 (94) 96 05/12/19 15:06 135/55 Accucheck: 104 Critical Care - Subjective ROS Limited/Unobtainable: No FI02: 32 Vent Support Mode: BiLevel Sputum Amount: None I&O: Intake and Output 05/12/19 05/13/19 19:00 07:00 Intake Total 600 ml 480 ml Balance 600 ml 480 ml Intake Oral 600 ml 480 ml # Voids 4 # Bowel Movements 1 1 Alejo Hernandez MD May 13, 2019 14:33
--- NOTE | 2019-05-13 16:35 | NUR ---
DISCHARGE PLAN S AMBULANCE TRANSPORTATION SCHEDULED WITH [facility] @ EXT [id number] WITH ETA @ 1730 PM FOR TRANSPORTATION TO [facility]. [facility] MAR AND CHARGE NURSE BELL FULLER.
--- NOTE | 2019-05-13 16:39 | NUR ---
*-* INSURANCE *-* UPDATED CLINICAL AND REVIEWS HAVE BEEN FAXED TO: [facility] REF# [id number] [place]: REYMUNDO PH: [phone] FAX: [phone]
[2019-05-13 17:52] VITALS: BP 155/88
--- NOTE | 2019-05-13 17:53 | NUR ---
NURSE NOTES: [facility] ambulance here to transfer patient to receiving facility. Report given to Jonatan MO. Report given to [facility] workers. Patient is awake and alert x 2. Patient vital signs are within normal limits. Patient has no complaints of pain at this time. Patient belongings reviewed. Belongings given to [facility] workers. No IV access. [facility] workers aware of AV shunt in right upper arm. Patient had 3 liters removed during dialysis today. Patient safely transferred to [facility]. Care for patient to end at this time.
--- NOTE | 2019-05-13 23:15 | Progress Note ---
DATE: 05/13/2019 SUBJECTIVE: The patient is being discharged today. Decreased agitation. Ativan p.r.n. MENTAL STATUS EXAMINATION: Confused, disoriented. Mood is neutral. Affect is flat. Thought process is concrete. Thought content, no suicidal or homicidal ideation. ASSESSMENT: Stable. PLAN: 1. We will continue current medications. 2. Provide the patient with reality orientation. Blanka Beckett M.D. DR: RAYMOND JOB#: [id number] CC:
--- NOTE | 2019-05-14 13:03 | NUR ---
*-* INSURANCE *-* UPDATED CLINICAL AND REVIEWS HAVE BEEN FAXED TO: [facility] REF# [id number] KENYATTA: REYMUNDO PH: [phone] FAX: [phone]
== END 2019-05-13 18:00 | DRG 720 ==
LOC: EDBD 20:34 → EDUNIT# 20:34 → EMR 20:53 → EDBEDREQ 22:15 → 2W 23:18 → EDBEDREQ 05-02 00:16 → ICU 05-02 02:35 → 2E 05-04 22:34 → 4E 05-06 16:00
PROC: 5A1D70Z Performance of Urinary Filtration, Intermittent, Less than 6 Hours Per Day (ICD-10-PCS; principal; 2019-05-02)
DX: A41.9 Sepsis, unspecified organism (principal); J96.01 Acute respiratory failure with hypoxia; J96.02 Acute respiratory failure with hypercapnia; R65.21 Severe sepsis with septic shock; L03.115 Cellulitis of right lower limb; N18.6 End stage renal disease; G93.41 Metabolic encephalopathy; J15.6 Pneumonia due to other Gram-negative bacteria; I13.2 Hypertensive heart and chronic kidney disease with heart failure and with stage 5 chronic kidney disease, or end stage renal disease; E11.22 Type 2 diabetes mellitus with diabetic chronic kidney disease; I50.9 Heart failure, unspecified; Z99.2 Dependence on renal dialysis; F25.0 Schizoaffective disorder, bipolar type; E11.40 Type 2 diabetes mellitus with diabetic neuropathy, unspecified; E11.621 Type 2 diabetes mellitus with foot ulcer; L97.519 Non-pressure chronic ulcer of other part of right foot with unspecified severity; T87.81 Dehiscence of amputation stump; E78.5 Hyperlipidemia, unspecified; D64.9 Anemia, unspecified; E87.70 Fluid overload, unspecified; I16.0 Hypertensive urgency; G40.909 Epilepsy, unspecified, not intractable, without status epilepticus; E03.9 Hypothyroidism, unspecified; L03.116 Cellulitis of left lower limb; M51.27 Other intervertebral disc displacement, lumbosacral region; Z85.038 Personal history of other malignant neoplasm of large intestine; R68.0 Hypothermia, not associated with low environmental temperature; L89.156 Pressure-induced deep tissue damage of sacral region
CPT/HCPCS: 36415; 36600; 71045; 80048; 80053; 80061; 80076; 80202; 80299; 81003; 82164; 82270; 82550; 82553; 82803; 82962; 83036; 83605; 83735; 83880; 84100; 84443; 84484; 85007; 85025; 86140; 86706; 86710; 86738; 86850; 86900; 86901; 87040; 87045; 87070; 87081; 87205; 93005; 94660; 94664; 96365; 99285; J3490

== ENCOUNTER 2019-05-13 20:01 | Emergency (ER) | payer MEDICARE, MEDICAID ==
[~2019-05-13] VITALS: Ht 167.6 cm; Wt 72.6 kg
[~2019-05-13 20:01] MED LIST changes: +AMOX TR-K CLV1 EAC1 ORAL; +KEPPRA500 MG ORAL; +MELATONIN10 M1 ORAL; +NORCO 5-325 TA1 EAC1 ORAL; +SERTRALINE HCL25 MG ORAL
--- NOTE | 2019-05-13 20:06 | NUR ---
ED Nurse Note: Pt brought in by private ambulance from [facility]. Pt was jsut discharged from [facility] and facility sent her back for HTN. Bp 212/80, Pt placed on monitor worker. Pt is A&Ox2, charge nurse has spoken to facility
[2019-05-13 20:10] VITALS: BP 212/84
--- NOTE | 2019-05-13 20:39 | Emergency Room Report ---
History of Present Illness General Chief Complaint: Hypertension Source: Medical Record, EMS (Josh Diaz MD) Present Illness HPI 58-year-old female presents ED for high blood pressure. Brought in from [facility] facility. Systolic 212. Patient denies chest pain or shortness of breath. Denies dizziness or weakness. Was discharged today from [facility] back to [facility] facility. Denies fevers or chills. No other aggravating relieving factors. Denies any other associated symptoms (Josh Diaz MD) Allergies: Coded Allergies: No Known Allergies (Verified , 08/23/06) Patient History Past Medical History: none Past Surgical History: none Pertinent Family History: none Social History: Denies: smoking, alcohol use, drug use Now: No Immunizations: UTD Reviewed Nursing Documentation: PMH: Agreed; PSxH: Agreed (Josh Diaz MD) Review of Systems All Other Systems: negative except mentioned in HPI (Josh Diaz MD) Physical Exam Vital Signs Date Time Temp Pulse Resp B/P (MAP) Pulse Ox O2 Delivery O2 Flow Rate FiO2 05/13/19 20:02 98.4 88 19 212/84 (126) 98 Sp02 EP Interpretation: reviewed, normal General Appearance: no apparent distress, alert, GCS 15, non-toxic Head: normocephalic, atraumatic Eyes: bilateral eye normal inspection, bilateral eye PERRL ENT: hearing grossly normal, normal pharynx, no angioedema, normal voice Neck: full range of motion, supple/symm/no masses Respiratory: chest non-tender, lungs clear, normal breath sounds, speaking full sentences Cardiovascular #1: regular rate, rhythm, no edema Cardiovascular #2: 2+ carotid (R), 2+ carotid (L), 2+ radial (R), 2+ radial (L) , 2+ dorsalis pedis (R), 2+ dorsalis pedis (L) Gastrointestinal: normal bowel sounds, non tender, soft, non-distended, no guarding, no rebound Rectal: deferred Genitourinary: normal inspection, no CVA tenderness Musculoskeletal: back normal, normal range of motion, gait/station normal, non- tender Neurologic: alert, motor strength/tone normal, oriented x3, sensory intact, responsive, speech normal Psychiatric: judgement/insight normal, memory normal, mood/affect normal, no suicidal/homicidal ideation Reflexes: 3+ bicep (R), 3+ bicep (L), 3+ tricep (R), 3+ tricep (L), 3+ knee (R) , 3+ knee (L) Skin: other - see nursing skin notes Lymphatic: no adenopathy (Josh Diaz MD) Medical Decision Making Diagnostic Impression: Primary Impression: HTN (hypertension) Additional Impressions: Cough ESRD (end stage renal disease) on dialysis ER Course Please see above notes. Patient administered hydralazine 25 and clonidine 0.2 orally. Blood pressure still remains high. Hydralazine 10 mg ordered IV. 2244 BP controlled after repeat doses of Hydralazine. Patient stable for outpatient observation and treatment. (Alejo Harvey MD) Rhythm Strip Diag. Results EP Interpretation: yes Rhythm: NSR, no PVC's, no ectopy (Alejo Harvey MD) Last Vital Signs Date Time Temp Pulse Resp B/P (MAP) Pulse Ox O2 Delivery O2 Flow Rate FiO2 05/13/19 20:10 88 19 05/13/19 20:10 98.4 212/84 98 (Josh Diaz MD) Status: improved (Alejo Harvey MD) Disposition: XFER SNF Condition: Improved Josh Diaz MD May 13, 2019 20:39 Alejo Harvey MD May 13, 2019 22:44
[2019-05-13] MEDS ORDERED: HydrALAZINE 25mg tab ORAL ONE (20:45)
[2019-05-13] MEDS ORDERED: cloNIDine 0.2mg Tab ORAL ONE (20:45)
[2019-05-13] MEDS ORDERED: cloNIDine 0.2mg Tab ONE (20:45)
[2019-05-13 21:00] VITALS: BP 189/100
[2019-05-13 22:00] VITALS: BP 212/100
[2019-05-13 23:00] VITALS: BP 196/89
[2019-05-14 00:06] VITALS: BP 172/70
--- NOTE | 2019-05-14 00:06 | NUR ---
ED Nurse Note: pt restless in bed, uncooperative, awaiting transport back to facility, will continue to monitor
[2019-05-14] MEDS ORDERED: LORazepam Inj 2mg/ml 1ml IV ONE (01:00)
[2019-05-14 01:19] VITALS: BP 144/56
[2019-05-14 01:25] VITALS: BP 144/56
--- NOTE | 2019-05-14 01:25 | NUR ---
ER DISCHARGE NOTE: Patient is cleared to be discharged per ERMD, pt is aox4, on room air, with stable vital signs. pt was given dc and prescription instructions, pt was able to verbalize understanding, pt id band and iv site removed without complications. pt taken via private ambulance back to [facility]. pt took all belongings.
== END 2019-05-14 01:25 ==
LOC: EDUNIT# 20:01 → EDBD 20:01 → EMR 20:49
DX: I12.0 Hypertensive chronic kidney disease with stage 5 chronic kidney disease or end stage renal disease (principal); N18.6 End stage renal disease; R05 Cough
CPT/HCPCS: 96374; 96375; 96376; 99284; J0360

== ENCOUNTER 2019-05-14 03:15 | Inpatient (IN) | payer MEDICARE, MEDICAID ==
[~2019-05-14] VITALS: Ht 167.6 cm; Wt 72.6 kg
[2019-05-14] VITALS (42 sets, daily range): BP systolic 155–204; BP diastolic 75–109
--- NOTE | 2019-05-14 03:15 | NUR ---
ED Nurse Note: Returned from break, resumed care of pt, pt was just present in bed 6 and discharged back to facility, unsure of why pt is returned, facility wont accept pt back, pt is in room in bed yelling and shouting "i need a wheelchair", pt is agitated and constantly yelling, pt has multiple areas of echynosis and open wound areas, also with right foot amputation, bleeding noted from wounds on legs and arms, dry dressings applied, pt gets out of bed and walks to nurses station, was told pt cant walk but she can, pt given complete bath and linen change, pt is incontinent of urine and stool, will resume care as ordered and closely monitor.
--- NOTE | 2019-05-14 03:39 | Emergency Room Report ---
History of Present Illness General Chief Complaint: General Complaint Source: Patient Present Illness HPI Patient was discharged after controlling her blood pressure. When she arrived at the nursing facility they refused to accept her because they wanted her to come in the morning. Please see prior note by Dr. Diaz. This is the history: 58-year-old female presents ED for high blood pressure. Brought in from residential facility. Systolic 212. Patient denies chest pain or shortness of breath. Denies dizziness or weakness. Was discharged today from [facility] back to residential facility. Denies fevers or chills. No other aggravating relieving factors. Denies any other associated symptoms Patient has end-stage renal disease. She was discharged with a cough. She does not complain about shortness of breath, chest pain or body pain at this time. She is focusing on needing a wheelchair. Patient has a history of psychiatric illness in the past. Prior to discharge she was treated with Risperdal and Ativan with improved anxiety. The patient is a poor historian. Review of the past records also revealed that the patient has had seizures. In the past she has been on Keppra and gabapentin. Patient discharged yesterday. Discharge diagnoses: #Acute hypoxic and hypercarbic respiratory failure #Suspected gram negative pneumonia (HCAP) #Bilateral infiltrates on CXR #Septic shock - resolved #Hypotension - resolved #Hypertension #Hypertensive urgency - resolved. #S/p right TMA with bilateral LE cellulitis #ESRD #Fluid overload #Acute metabolic encephalopathy #Schizophrenia and bipolar #Hypertensive urgency #DM type 2 #HLD #Epilepsy #Hypothyroidism #Moderate-severe protein calorie malnutrition Allergies: Coded Allergies: No Known Allergies (Verified , 08/23/06) COVID-19 Screening Contact w/high risk pt: No Recent Travel to affected area: No Experienced COVID-19 symptoms?: No COVID-19 symptoms experienced: Shortness of Breath, Cough, Runny Nose, Flu- Like Symptoms Patient History Limited by: medical condition - Poor historian Past Medical History: see triage record, old chart reviewed Social History: Reports: alcohol use; Denies: smoking Social History Narrative alf facility Now: No Reviewed Nursing Documentation: PMH: Agreed; PSxH: Agreed Nursing Documentation-PMH Hx Cardiac Problems: Yes Hx Hypertension: Yes - CARDIOMYOPATHY, A-fib Hx COPD: Yes - PNA Hx Diabetes: Yes - type 2 Hx Cancer: Yes Hx Gastrointestinal Problems: Yes Hx Dialysis: Yes - MWF/ ESRD Hx Neurological Problems: Yes Hx Seizures: Yes Hx Peripheral Neuropathy: Yes Hx Weakness: Yes Review of Systems All Other Systems: limited Physical Exam Vital Signs Date Time Temp Pulse Resp B/P (MAP) Pulse Ox O2 Delivery O2 Flow Rate FiO2 05/14/19 03:15 98.4 60 19 140/60 (86) 100 Room Air Sp02 EP Interpretation: reviewed, normal General Appearance: no apparent distress, Chronically Ill Head: normocephalic Eyes: bilateral eye normal inspection, bilateral eye PERRL, bilateral eye EOMI ENT: moist mucus membranes Neck: supple Respiratory: no respiratory distress, decreased breath sounds, crackles Cardiovascular #1: regular rate, rhythm, edema - Trace Cardiovascular #2: 2+ radial (R) Gastrointestinal: normal inspection, non tender, no mass, non-distended, decreased bowel sounds Genitourinary: no CVA tenderness Musculoskeletal: back normal, normal range of motion, gait/station normal, other - Distal foot amputation right Neurologic: alert, motor strength/tone normal, oriented - X2, sensory intact, speech normal Psychiatric: anxious - And perseverating Skin: other - Bruises and excoriations arms. Dressing right foot Medical Decision Making Diagnostic Impression: Primary Impression: Hypoxia Additional Impressions: Hypertensive urgency ESRD (end stage renal disease) on dialysis CHF (congestive heart failure) Qualified Codes: I50.43 - Acute on chronic combined systolic (congestive) and diastolic (congestive) heart failure Schizoaffective disorder, bipolar type ER Course Patient returned from the residential facility. Her blood pressure is still high. This needs to be treated at this time. Patient is in no distress. Initial oxygen saturation is normal. Patient is treated with another dose of hydralazine. Prior labs reviewed. Patient's oxygen saturation decreased. She denies any shortness of breath. Chest x-ray ordered. Due to agitated and anxiety Haldol given. Due to the complexity of this patientand hypoxia, patient admitted for dialysis and further control of hypertension. Clinically patient improved. Examined by private doctor in the emergency department. I advised him that she most likely needed dialysis at this time based on x-ray and her hypoxia. Laboratory Tests Test 05/14/19 06:25 White Blood Count 5.4 K/UL (4.8-10.8) Red Blood Count 4.27 M/UL (4.20-5.40) Hemoglobin 13.1 G/DL (12.0-16.0) Hematocrit 40.1 % (37.0-47.0) Mean Corpuscular Volume 94 FL (80-99) Mean Corpuscular Hemoglobin 30.7 PG (27.0-31.0) Mean Corpuscular Hemoglobin Concent 32.7 G/DL (32.0-36.0) Red Cell Distribution Width 15.6 % (11.6-14.8) H Platelet Count 61 K/UL (150-450) L Mean Platelet Volume 9.8 FL (6.5-10.1) Neutrophils (%) (Auto) % (45.0-75.0) Lymphocytes (%) (Auto) % (20.0-45.0) Monocytes (%) (Auto) % (1.0-10.0) Eosinophils (%) (Auto) % (0.0-3.0) Basophils (%) (Auto) % (0.0-2.0) Differential Total Cells Counted 100 Neutrophils % (Manual) 75 % (45-75) Lymphocytes % (Manual) 9 % (20-45) L Monocytes % (Manual) 10 % (1-10) Eosinophils % (Manual) 6 % (0-3) H Basophils % (Manual) 0 % (0-2) Band Neutrophils 0 % (0-8) Platelet Estimate Decreased L Platelet Morphology Normal Anisocytosis 1+ Sodium Level 136 MMOL/L (136-145) Potassium Level 4.6 MMOL/L (3.5-5.1) Chloride Level 95 MMOL/L (98-107) L Carbon Dioxide Level 29 MMOL/L (21-32) Anion Gap 12 mmol/L (5-15) Blood Urea Nitrogen 38 mg/dL (7-18) H Creatinine 5.4 MG/DL (0.55-1.30) H Estimated Glomerular Filtration Rate 8.2 mL/min (>60) Glucose Level 81 MG/DL (74-106) Calcium Level 10.0 MG/DL (8.5-10.1) Rhythm Strip Diag. Results EP Interpretation: yes Rhythm: NSR, no PVC's, no ectopy Chest X-Ray Diagnostic Results Chest X-Ray Diagnostic Results : Chest X-Ray Ordered: Yes # of Views/Limited/Complete: 1 View Indication: Other EP Interpretation: Yes Interpretation: no pneumothorax, other - Pulmonary edema, right pleural effusion Impression: Other Electronically Signed by: Electronically signed by Alejo Harvey MD Last Vital Signs Date Time Temp Pulse Resp B/P (MAP) Pulse Ox O2 Delivery O2 Flow Rate FiO2 05/14/19 13:55 Nasal Cannula 2.0 05/14/19 13:24 170/78 05/14/19 13:10 59 05/14/19 12:30 20 100 05/14/19 12:30 98.4 Status: improved Disposition: ADMITTED INPATIENT Condition: Serious Alejo Harvey MD May 14, 2019 03:39
--- NOTE | 2019-05-14 04:00 | NUR ---
ED Nurse Note: Pt incontinent of stool again, given bath and linen change, pt continues to yell and scream and act very agitated and restless although she can repeat instructions and commands given, v/s taken and tp with elevated b/p and low o2 sat, immediately reported to MD after many re-checks and done while pt not agitated, pt medicated for b/p, will continue to monitor.
[2019-05-14] MEDS ORDERED: cloNIDine 0.2mg Tab ORAL ONE (04:15)
[2019-05-14] MEDS ORDERED: Haloperidol 5mg/ml Inj IM ONE (04:30)
--- NOTE | 2019-05-14 05:00 | NUR ---
ED Nurse Note: Pt continues to be very agitated, taken out IV line, and out of bed again at door, pt continues to yell out "give me a wheelchair", where she appears to be confused, when talking to pt, she is oriented x 4 and agrees with limits set and promises to not do again, as soon as nurse not present pt immediately begins with same behaviors, md aware, pt requiring frequent and constant monitoring, meds given not effective, will continue to closely monitor, also informed of pt b/p remaining elevated, pt also remains on oxygen at 2l n/c, desats to 88% when off o2, mild productive cough noted, md informed and chest x-ray done, pt to be admitted, will prepare for admission.
--- NOTE | 2019-05-14 06:00 | NUR ---
ED Nurse Note: No changes in pt condiation, restraints applied and charting per protocol, pt continues to elicit behaviors which she can harm self, pulling out lines and high fall risk of getting out of bed, aware and at bedside of pt, will continue to closely monitor, IV line replaced and am labs drawn and sent to lab.
--- NOTE | 2019-05-14 07:00 | NUR ---
ED Nurse Note: Shift report given to am nurse, pt remains in restraints, recently medicated for high b/p, IV line placed and am labs drawn and sent, pt continues to yell and scream in bed, has not slept all night, unable to remove restraints at this time, photos taken of pt wounds and recorded per protocol, nad noted during report of pt to am nurse.
--- NOTE | 2019-05-14 07:20 | NUR ---
ED Nurse Note: Received pt and hand-off from [facility] Gra[facility]. Pt is on bed, awake, on stable condition. Pt is AOx4, noted to be yelling from time to time. Pt is on 2-point behvavioral restraints for safety precautions, intact, no redness nor swelling noted on bilateral wrists. Swabs taken for MRSA, CRE screening. Will continue to monitor pt.
--- NOTE | 2019-05-14 07:35 | NUR ---
ED Nurse Note: Noted latest BP of 182/78. Will continue to monitor pt.
--- NOTE | 2019-05-14 08:25 | History and Physical ---
History of Present Illness General Date patient seen: May 14, 2019 Time patient seen: 07:30 Reason for Hospitalization: Elevated B.P Present Illness HPI Cris Zuluaga is a 58 year old female essential hypertension, HLD, DMII, ESRD on HD (MWF), obesity, schizophrenia, bipolar disorder presenting [place] with concern for elevated blood pressure. Patient was recently hospitalized for septic shock 2/2 HCAP and cellulitis of LEs. She received appropriat course of IV and PO antibiotics. She was discharged back to the SNF on the 12 of May but was transferred back to the hospital for highly elevated B.P. Patient denies any symptoms and does not report of any CP, SOB, syncope, near syncope, visual change, N/V/D/F/C. In the ED patient was found to be hypertensive at 201/81 mmHg with O2% of 89% on RA. Despite receiving multiple administrations of IV and PO antihypertensives , her B.P remained elevated. She is being admitted for further observation, continuation of HD and further medical management. Allergies: Coded Allergies: No Known Allergies (Verified , 08/23/06) COVID-19 Screening Contact w/high risk pt: No Recent Travel to affected area: No Experienced COVID-19 symptoms?: No COVID-19 symptoms experienced: Shortness of Breath, Cough, Runny Nose, Flu- Like Symptoms Medication History Scheduled Aspirin* (Aspir 81*), 81 MG ORAL DAILY, (Reported) Atorvastatin Calcium* (Lipitor*), 20 MG ORAL BEDTIME, (Reported) Calcium Acetate (Phoslyra), 1,334 MG PO TID, (Reported) Ferrous Sulfate* (Ferrous Sulfate*), 325 MG ORAL DAILY, (Reported) Lactulose (Lactulose), 45 ML PO BID, (Reported) Levetiracetam (Keppra), 500 MG ORAL Q12HR Levothyroxine Sodium* (Synthroid*), 100 MCG ORAL DAILY@0630 Nifedipine Xl* (Procardia Xl*), 60 MG ORAL BID Nut.tx.impaired Renal Fxn,Soy (Nepro Carb Steady), 237 ML PO DAILY, (Reported) Polyethylene Glycol 3350* (Miralax*), 17 GM ORAL DAILY, (Reported) Risperidone* (Risperdal*), 4 MG ORAL BEDTIME Sertraline Hcl* (Sertraline Hcl*), 25 MG ORAL DAILY, (Reported) Sevelamer Carbonate (Renvela), 2,400 MG ORAL THREE TIMES A DAY Thiamine Hcl* (Vitamin B-1*), 100 MG ORAL DAILY, (Reported) Vitamin B Cmplx/Vit C/Folic AC (Nephro-Denise Tablet), 1 TAB ORAL DAILY, (Reported ) Scheduled PRN Acetaminophen* (Acetaminophen 325MG Tablet*), 650 MG ORAL Q6H PRN for MILD PAIN, (Reported) Hydralazine Hcl* (Hydralazine Hcl*), 25 MG ORAL EVERY 4 HOURS PRN for FOR SBP> 160 OR DBP>90, (Reported) Hydrocodone Bit/Acetaminophen 5-325* ([place] 5-325 Tablet*), 1 TAB ORAL Q8HR PRN for SEVERE PAIN, (Reported) Ipratropium/Albuterol Sulfate (DuoNeb 0.5-3(2.5)mg/3ml), 3 ML HHN Q6HR PRN for Shortness of Breath, (Reported) Melatonin (Melatonin), 10 MG ORAL BEDTIME PRN for IMPROVE CIRCADIAN RHYTHM, ( Reported) Discontinued Medications Acetaminophen* (Acetaminophen Extra Strength*), 500 MG ORAL Q6H PRN for MODERATE PAIN, (Reported) Discontinued Reason: Therapy completed Amoxicillin/Potassium Clav 500-125 Mg Tab* (Amox Tr-K Clv 500-125 Mg Tab*), 500 MG ORAL Q24HRS Discontinued Reason: Therapy completed Doxycycline Monohydrate* (Doxycycline Monohydrate*), 100 MG ORAL EVERY 12 HOURS Discontinued Reason: Therapy completed Patient History Healthcare decision maker Resuscitation status Advanced Directive on File Physical Exam General Appearance: alert, lethargic, mild distress, obese HEENT: normocephalic, atraumatic Neck: non-tender, supple, normal inspection, muscle spasm Respiratory/Chest: chest wall non-tender, lungs clear, normal breath sounds, no accessory muscle use Cardiovascular/Chest: normal peripheral pulses, normal rate, regular rhythm, no gallop/murmur, no JVD Abdomen: non tender, soft Extremities: moderate edema, pitting, other - stasis dermatitis Neurologic: oriented x 3, responsive Musculoskeletal: no effusion, atrophy Last 24 Hour Vital Signs Date Time Temp Pulse Resp B/P (MAP) Pulse Ox O2 Delivery O2 Flow Rate FiO2 05/14/19 07:45 53 17 97 Nasal Cannula 05/14/19 07:35 98.4 53 17 182/78 97 Nasal Cannula 2.0 05/14/19 07:30 54 16 96 Nasal Cannula 05/14/19 07:16 192/81 05/14/19 07:15 54 16 96 Nasal Cannula 05/14/19 07:00 54 16 96 Nasal Cannula 05/14/19 06:52 58 16 94 Nasal Cannula 05/14/19 06:37 61 20 95 Nasal Cannula 05/14/19 06:22 64 20 95 Nasal Cannula 05/14/19 06:07 57 16 96 Nasal Cannula 05/14/19 06:00 98.4 54 16 192/81 96 Nasal Cannula 2.0 05/14/19 05:52 59 16 94 Nasal Cannula 05/14/19 05:37 64 16 95 Nasal Cannula 05/14/19 05:22 60 16 95 Nasal Cannula 05/14/19 05:07 63 19 95 Nasal Cannula 05/14/19 05:00 98.4 65 19 201/81 94 Nasal Cannula 2.0 05/14/19 04:52 58 18 95 Nasal Cannula 05/14/19 04:37 54 16 94 Nasal Cannula 05/14/19 04:22 59 18 96 Nasal Cannula 05/14/19 04:12 196/102 05/14/19 04:00 98.4 69 19 196/102 85 Room Air 05/14/19 03:30 60 19 Room Air 05/14/19 03:15 98.4 60 19 140/60 (86) 100 Room Air Microbiology Date/Time Source Procedure Growth Status 05/14/19 07:20 Rectum Received Height (Feet): 5 Height (Inches): 6.00 Weight (Pounds): 160 Assessment/Plan Problem List: (1) Fluid overload ICD Codes: E87.70 - Fluid overload, unspecified SNOMED: 44975340 (2) Thrombocytopenia ICD Codes: D69.6 - Thrombocytopenia, unspecified SNOMED: 188746920 (3) Hypoxia ICD Codes: R09.02 - Hypoxemia SNOMED: 575012231 (4) Diabetes mellitus, type II ICD Codes: E11.9 - Type 2 diabetes mellitus without complications SNOMED: 76159946 (5) Hypothyroidism ICD Codes: E03.9 - Hypothyroidism, unspecified SNOMED: 32507529 (6) ESRD (end stage renal disease) on dialysis ICD Codes: N18.6 - End stage renal disease; Z99.2 - Dependence on renal dialysis SNOMED: 988020030 (7) HTN (hypertension) ICD Codes: I10 - Essential (primary) hypertension SNOMED: 12217797 (8) Schizoaffective disorder, bipolar type ICD Codes: F25.0 - Schizoaffective disorder, bipolar type SNOMED: 14824390 Assessment/Plan: 58 YO F with HTN, DM, HLD, ESRD on HD ([facility]) transferred from [facility] for elevated B.P. In the ED nuzhat was found to be hypertensive at 201/81 with O2% of 89% on RA. She is being admitted for further observation and medical manageetn. #Hypertensive Urgency #Acute hypoxemic respiratory failure #Volume Overload #ESRD on HD ([facility]) -Admit to inpatient. -Dr. Solis of Nephrology to be consulted for continuation of HD. -Resume outpatient antihypertensives: Nifedipine 60mg PO BID, Hydralazine 25mg PO Q4H for SBP>160. -Continue to monitor vitals. -Continue to titrate O2 nasal canula -Follow up CXR results. #Type II Diabetes Mellitus: -Diabetic diet. -Insulin Sliding Scale. #HLD: -Resume home Lipitor 20 mg Q daily. #Hypothyroidism: -Resume home Levothyroxine 100mcg QD. #Schizoaffective disorder #Depressive disorder -Resume home Sertraline 25 Qdaily -Resume home Risperidone 4mg QHS #Hx of Seizure disorder: -Resume home Keppra 500mg BID -Seizure precaution -Fall precaution. I spent 70 minutes on this case. > 50% spent on counselling and care coordination. i spent an additional 35 minutes in reviewing old records. Christian Butler M.D. May 14, 2019 08:25
[2019-05-14] MEDS ORDERED: Heparin 5000 units/ml inj SUBQ SCH (09:00)
--- NOTE | 2019-05-14 09:20 | NUR ---
ED Nurse Note: Noted BP: 196/75. Notified Dr. De León.
[2019-05-14 09:46] LABS: HEMATOCRIT 40.1 % (37.0-47.0); HEMOGLOBIN 13.1 G/DL (12.0-16.0); MEAN CORPUSCULAR VOLUME 94 FL (80-99); PLATELET COUNT 61 K/UL (150-450); RED BLOOD COUNT 4.27 M/UL (4.20-5.40); RED CELL DISTRIBUTION WIDTH 15.6 % (11.6-14.8); WHITE BLOOD COUNT 5.4 K/UL (4.8-10.8)
[2019-05-14 09:47] LABS: ANION GAP 12 mmol/L (5-15); BLOOD UREA NITROGEN 38 mg/dL (7-18); CARBON DIOXIDE 29 MMOL/L (21-32); CHLORIDE 95 MMOL/L (98-107); CREATININE 5.4 MG/DL (0.55-1.30); POTASSIUM 4.6 MMOL/L (3.5-5.1); SODIUM 136 MMOL/L (136-145)
--- NOTE | 2019-05-14 10:10 | NUR ---
ED Nurse Note: Noted latest BP: 210/79, rechecked, notified Dr. De León. Pt's still on bed, on stable condition, consistently yelling. Received order for aprezoline 10mg (0.5ml) and labetalol 10mg (2ml). Noted pt's HR of 57. Per Dr. De León put labetalol on-hold.
[2019-05-14] MEDS ORDERED: Labetalol 5mg/ml 20ml vial IV ONE (10:15)
--- NOTE | 2019-05-14 10:32 | Diagnostic Imaging Report ---
Indication: Dyspnea Comparison: 05/07/2019 A single view chest radiograph was obtained. Findings: Pulmonary vascular congestion appears worse. There is evidence of a right pleural effusion. Cardiomegaly is again noted. IMPRESSION: Worsening CHF. Right pleural effusion
--- NOTE | 2019-05-14 10:44 | NUR ---
ED Nurse Note: Latest BP at 197/82. Pt still on bed, on stable condition. Pt denies any discomfort nor pain.
--- NOTE | 2019-05-14 11:30 | NUR ---
ED Nurse Note: Hand-off given to CHEPE Loya for continuity of care.
--- NOTE | 2019-05-14 12:25 | Consultation ---
Consult Note Consult Note I am asked to resume care for this patient and arrange for her dialysis while she remains in the hospital. She was discharged yesterday back to the extended care facility however she was not received by the facility and was back in our emergency room and currently is being admitted again admitted via ER : Hypoxia Hypertensive urgency ESRD (end stage renal disease) on dialysis Assessment/Plan 1) ESRD (end stage renal disease) on dialysis (2) CHF (congestive heart failure) (3) Fluid overload (4) Schizoaffective disorder, bipolar type (5) Diabetes mellitus, type II Admitted for hypoxia and hypertensive emergency Conditions: (1) ESRD (end stage renal disease) on dialysis (2) Altered level of consciousness / Encephalopathy metabolic (3) Schizoaffective disorder, bipolar type (4) h/o Hypothyroidism (5) Anemia in chronic renal disease Also: - Cellulitis both LE - End-stage renal disease, on hemodialysis. fistula right arm - HTN / Pulmonary HTN - Diabetes type 2. Others - Morbid obesity. - H/O Colon Cancer - H/O Hep C - H/O Depression and Bipolar disease - Psych disease uncoaporative --Bilateral leg numbness --diabetic neuropathy --L5-S1 disc protrusion Plan Last dialysis May 12 next dialysis May 14 Continue her medications She is agitated at times Blood pressure and blood sugar under control Per orders Eamon Solis MD May 14, 2019 12:25
--- NOTE | 2019-05-14 12:30 | NUR ---
ED Nurse Note: patient's leather restraint removed as patient is being transferred to .
--- NOTE | 2019-05-14 12:30 | NUR ---
ED Nurse Note: patient transferred to 2E on ACLS protocol, report given to Talia [place]. endorsed pt with all of her belongings.
--- NOTE | 2019-05-14 12:30 | NUR ---
ED Nurse Note: patient had bm x2. patient cleaned and changed the linen x2 kept patient clean and dry.
--- NOTE | 2019-05-14 12:44 | NUR ---
COMMUNITY PLACEMENT WORKER NOTE ANCILLARY CONSULT FOR SNF RECEIVED PLACEMENT RECEIVED. CALL MADE TO PATIENT RESIDENT SNF [facility]. SPOKE WITH KONRAD. STATES PATIENT MAY RETURN TODAY IF CLEARED FOR DISCHARGE. PATIENT WILL RETURN TO ROOM 200-B SHELTER RN JIMMY FULLER. SHE WILL NOTIFY MD AND NOTIFY THIS CM.
[2019-05-14] MEDS ORDERED: HydrALAZINE 25mg tab ORAL PRN (12:45)
--- NOTE | 2019-05-14 13:03 | NUR ---
*-* INSURANCE *-* CLINICAL AND REVIEWS HAVE BEEN FAXED TO: [facility] REF# [id number] VERNELL: REYMUNDO PH: [phone] FAX: [phone]
--- NOTE | 2019-05-14 13:24 | NUR ---
NURSE NOTES: VS at this time 97.6, HR 59, RR 20, BP 176/78, O2 97%, PO hydralazine given.
--- NOTE | 2019-05-14 13:45 | NUR ---
NURSE NOTES: Received report from CHEPE Loya. Patient in bed resting, no active s/s cardiac, respiratory distress noticed at this time. Patient on 2L oxygen via NC, 99%, IV on left wrist 22G, asymptomatic, patent, intact. AV shunt on right upper arm, present bruit and thrill. Picture taken for skin, case monitor on. Bed in lowest position, side rails upx3, call light within reach, bed alarm on. Will continue to monitor.
--- NOTE | 2019-05-14 14:00 | NUR ---
NURSE NOTES: Received phone call from oil field caserKirstie, inform RN that patient may return to [facility], room 200-[address]. Called Dr. Sidhu regarding SNF has bed available okay to return. Per MD Discharge with home med, but make sure get HD tomorrow.
--- NOTE | 2019-05-14 14:30 | NUR ---
NURSE NOTES: Report given to CHEPE Azul and informed MD order HD tomorrow 05/15/2019.
--- NOTE | 2019-05-14 16:00 | NUR ---
NURSE NOTES: Ambulance personnel at the bedside, BP was 184/80, IV hydralazine given. BP rechecked 151/70. Patient discharged per Dr. Sidhu. school bus monitor returned to hall monitor, IV removed, ID band removed and placed in shredder. Patient discharged with all belonging in a stable condition.
[2019-05-14] MEDS ORDERED: Docusate 100mg cap ORAL SCH (18:00)
[2019-05-14] MEDS ORDERED: Atorvastatin 20mg tab ORAL SCH (21:00)
[2019-05-15] MEDS ORDERED: Nephrovite tab (Rena-Vite) ORAL SCH (09:00)
[2019-05-15] MEDS ORDERED: Aspirin EC 81mg tab ORAL SCH (09:00)
[2019-05-15] MEDS ORDERED: Thiamine 100mg tab ORAL SCH (09:00)
--- NOTE | 2019-05-15 14:07 | NUR ---
*-* INSURANCE *-* NO DISCHARGE SUMMARY IN THE SYSTEM UNABLE TO SEND TO INS
--- NOTE | 2019-05-15 16:22 | Discharge Summary ---
Discharge Summary Hospital Course Date of Admission May 14, 2019 at 06:58 Date of Discharge May 14, 2019 at 16:30 Admitting Diagnosis isolation hypoxia/hypertension HPI Cris Zuluaga is a 58 year old female who was admitted on May 14, 2019 at 06:58 for Isolation Hypoxia/Hypertension Hospital Course Late Entry Cris Zuluaga is a 58 year old female essential hypertension, HLD, DMII, ESRD on HD (MWF), obesity, schizophrenia, bipolar disorder presenting [place] with concern for elevated blood pressure. Patient was recently hospitalized for septic shock 2/2 HCAP and cellulitis of LEs. She received appropriate course of IV and PO antibiotics. She was discharged back to the SNF on the 12 of May but was transferred back to the hospital for highly elevated B.P. Patient denies any symptoms and does not report of any CP, SOB, syncope, near syncope, visual change, N/V/D/F/C. In the ED patient was found to be hypertensive at 201/ 81 mmHg with O2% of 89% on RA. Despite receiving multiple administrations of IV and PO antihypertensives, her B.P remained elevated. Pt was admitted for further observation, continuation of HD and further medical management. Pt's condition improved and was transferred back to SNF. d/c planning >30 mins. Discharge Medications Continued Medications: Acetaminophen* (Acetaminophen 325MG Tablet*) 325 Mg Tablet 650 MG ORAL Q6H PRN for MILD PAIN, TAB (This prescription has been renewed) Aspirin* (Aspir 81*) 81 Mg Tablet.dr 81 MG ORAL DAILY, TAB (This prescription has been renewed) Atorvastatin Calcium* (Lipitor*) 20 Mg Tablet 20 MG ORAL BEDTIME, TAB (This prescription has been renewed) Calcium Acetate (Phoslyra) 667 Mg/5 Ml Solution 1334 MG PO TID for ESRD WITH MEALS Ferrous Sulfate* (Ferrous Sulfate*) 325 Mg Tablet 325 MG ORAL DAILY, #30 TAB 0 Refills (This prescription has been renewed) Hydralazine Hcl* (Hydralazine Hcl*) 25 Mg Tablet 25 MG ORAL EVERY 4 HOURS PRN for FOR SBP>160 OR DBP>90, TAB 0 Refills (This prescription has been renewed) Hydrocodone Bit/Acetaminophen 5-325* ([place] 5-325 Tablet*) 1 Each Tablet 1 TAB ORAL Q8HR PRN for SEVERE PAIN, TAB 0 Refills (This prescription has been renewed) Ipratropium/Albuterol Sulfate (DuoNeb 0.5-3(2.5)mg/3ml) 3 Ml Ampul.neb 3 ML HHN Q6HR PRN for Shortness of Breath, EA (This prescription has been renewed) Lactulose (Lactulose) 10 Gm/15 Ml Solution 45 ML PO BID for ENCEPHALOPATHY (This prescription has been renewed) Levetiracetam (Keppra) 250 Mg Tablet 500 MG ORAL Q12HR for 15 Days, #15 TAB Levothyroxine Sodium* (Synthroid*) 100 Mcg Tablet 100 MCG ORAL DAILY@0630 for 10 Days, #10 TAB Take in the morning on an empty stomach, at least 30 minutes before food. Melatonin (Melatonin) 10 Mg Tablet 10 MG ORAL BEDTIME PRN for IMPROVE CIRCADIAN RHYTHM for 30 Days, TAB (This prescription has been renewed) Nifedipine Xl* (Procardia Xl*) 30 Mg Tab.er.24 60 MG ORAL BID for 10 Days, #20 TAB Nut.tx.impaired Renal Fxn,Soy (Nepro Carb Steady) 237 Ml Liquid 237 ML PO DAILY, ML (This prescription has been renewed) Polyethylene Glycol 3350* (Miralax*) 17 Gm Powd.pack 17 GM ORAL DAILY, PACKET (This prescription has been renewed) Risperidone* (Risperdal*) 2 Mg Tablet 4 MG ORAL BEDTIME for 10 Days, #10 TAB Sertraline Hcl* (Sertraline Hcl*) 25 Mg Tablet 25 MG ORAL DAILY for DEPRESSION, TAB (This prescription has been renewed) Sevelamer Carbonate (Renvela) 800 Mg Tablet 2400 MG ORAL THREE TIMES A DAY for 30 Days, #90 TAB 3 Refills Thiamine Hcl* (Vitamin B-1*) 100 Mg Tablet 100 MG ORAL DAILY, #30 TAB 0 Refills (This prescription has been renewed) Vitamin B Cmplx/Vit C/Folic AC (Nephro-Denise Tablet) 0.8 Mg Tablet 1 TAB ORAL DAILY, #30 TAB 0 Refills (This prescription has been renewed) Discharge Condition Upon Discharge: stable Discharge Vital Signs Last Vital Signs Date Time Temp Pulse Resp B/P (MAP) Pulse Ox O2 Delivery O2 Flow Rate FiO2 05/14/19 15:48 184/80 05/14/19 15:12 57 05/14/19 13:55 Nasal Cannula 2.0 05/14/19 12:30 20 100 05/14/19 12:30 98.4 Discharge Disposition Patient was discharged to SNF Latha Sidhu M.D. May 15, 2019 16:22
--- NOTE | 2019-05-19 12:23 | NUR ---
*-* INSURANCE *-* DISCHARGE SUMMARY HAS BEEN FAXED TO: [facility] REF# [id number] KENYATTA: REYMUNDO PH: [phone] FAX: [phone]
== END 2019-05-14 16:30 | DRG 470 ==
LOC: EDUNIT# 03:15 → EDBD 03:15 → EMR 03:46 → EDBEDREQ 06:52 → 4E 06:58 → EDBEDREQ 07:05 → EDBEDREQSVC 07:11 → EDBEDREQ 11:52 → 2E 12:06
DX: I12.0 Hypertensive chronic kidney disease with stage 5 chronic kidney disease or end stage renal disease (principal); N18.6 End stage renal disease; J96.01 Acute respiratory failure with hypoxia; G93.41 Metabolic encephalopathy; I16.1 Hypertensive emergency; L03.116 Cellulitis of left lower limb; L03.115 Cellulitis of right lower limb; E87.70 Fluid overload, unspecified; Z99.2 Dependence on renal dialysis; E11.8 Type 2 diabetes mellitus with unspecified complications; F25.0 Schizoaffective disorder, bipolar type; E03.9 Hypothyroidism, unspecified; G40.909 Epilepsy, unspecified, not intractable, without status epilepticus; I16.0 Hypertensive urgency; E66.01 Morbid (severe) obesity due to excess calories; E11.40 Type 2 diabetes mellitus with diabetic neuropathy, unspecified; Z85.9 Personal history of malignant neoplasm, unspecified; Z85.038 Personal history of other malignant neoplasm of large intestine; M51.27 Other intervertebral disc displacement, lumbosacral region
CPT/HCPCS: 36415; 71045; 80048; 85007; 85025; 87081; 96372; 96374; 99285